=== PATIENT | female | born 1945 | race Caucasian/White ===

== ENCOUNTER 2018-08-12 01:38 | Emergency (ER) | payer MEDICARE, SELFPAY ==
[2018-08-11 15:46] VITALS: BMI 40.5
[2018-08-12 01:39] VITALS: BP 116/82; PULSE 76; RESP 15; TEMP 36.8; O2SAT 97; BMI 41.1
--- NOTE | 2018-08-12 02:07 | CT_ITS ---
STUDY: CT ABDOMEN AND PELVIS WITHOUT CONTRAST REASON FOR EXAM: Female, 73 years old. Abdominal pain for 7 months with nausea and vomiting. RADIATION DOSAGE (If Supplied By Facility): CTDIvol = ( 22.68 ) mGy, DLP = ( 1099.35 ) mGycm TECHNIQUE: Transaxial images were obtained from the dome of the diaphragm to the symphysis pubis without oral contrast, and without intravenous contrast. Sagittal and coronal images were reconstructed. Individualized dose optimization techniques were used for this CT. COMPARISON: Prior comparison studies are not available for review at this time. FINDINGS: There is patchy groundglass attenuation at both lung bases possibly representing atelectasis. No pleural effusions are visualized. The visualized portions of the heart are within normal limits. Normal liver. There is non-visualization of the gallbladder, which may be secondary to either contraction or a prior cholecystectomy. Normal spleen. Normal pancreas. Normal bilateral adrenal glands. There is a small cyst arising from the midpole the right kidney measuring approximately 1.6 cm in greatest dimension. There is no evidence for hydronephrosis, hydroureter or radiopaque ureteral calculi. There is a small cyst arising from the posterior cortex of the left kidney. There is a small hiatal hernia. There is no evidence for dilated bowel, ascites or pneumoperitoneum. The small bowel has a grossly normal appearance. Stool visible throughout the colon with scattered colonic diverticula. There is non-visualization of the appendix. There is diffuse atherosclerotic calcification of the abdominal aorta with elongation and tortuosity, but without a demonstrated aneurysm. Normal inferior vena cava. Normal retroperitoneum. The urinary bladder is not distended. There is absence of the uterus consistent with a prior hysterectomy. There is a small umbilical hernia containing fat. There is mild curvature of the thoracic and lumbar spine convexity towards the left. 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 CT/Abdomen/Pelvis without Cont IMPRESSION: 1. No CT evidence of acute intra-abdominal disease. 2. Bilateral renal cysts. 3. Small hiatal hernia. 4. Mild colonic diverticulosis. Electronically Signed: Luana Maier MD at 3:09 EST , Service support ,
--- NOTE | 2018-08-12 02:08 | EKG12_ITS ---
Test Reason : ABDOMINAL PAIN Blood Pressure : / mmHG Vent. Rate : 072 BPM Atrial Rate : 072 BPM P-R Int : 156 ms QRS Dur : 090 ms QT Int : 430 ms P-R-T Axes : 009 024 023 degrees QTc Int : 470 ms Normal sinus rhythm Normal ECG Confirmed by ARPITA BAH MD ([id number]), supervising film or videotape editor OLIVER LOMAX ([id number]) on 08/14/2018 9:04:39 AM Referred By: MARIA C Confirmed By:ARPITA BAH MD
[2018-08-12 02:15] LABS: Absolute Lymphocyte Count 2.38 X10^3/ul (0.83-4.51); Absolute Neutrophil Count 6.2 X10^3/uL (2.0-7.7); Basophil# 0.02 X10^3/uL; Basophil% 0.2 % (0-1); Hematocrit 41.1 % (37-47); Hemoglobin 13.2 g/dl (12.0-15.0); Lymphocyte # 2.38 X10^3/ul (4.0); Lymphocyte % 23.6 % (19-41); Mean Corp Hgb Conc 32.1 g/gl (32-36); Mean Corpuscular Hgb 30.3 pg (27.0-32.0); Mean Corpuscular Volume 94.3 fL (81-99); Mean Platelet Vol. 9.4 fl (6.2-12.0); Monocyte# 1.16 X10^3/uL; Monocyte% 11.5 % (0-10); Neutrophil % 61.4 % (47-70); Platelet Count 268 K/mm3 (150-450); RBC Distribution Width CV 13.8 % (11.6-14.6); RBC Distribution Width SD 45.8 fl (35.1-43.9); Red Blood Count 4.36 M/mm3 (4.2-5.4); White Blood Count 10.1 K/mm3 (4.4-11.0)
[2018-08-12 02:16] LABS: POSITIVE COUNT NO; POSITIVE DIFFERENTIAL NO; POSITIVE MORPHOLOGY NO
[2018-08-12 02:19] LABS: Prothrombin Time (Protime)PT. 12.8 SECONDS (11.7-14.9)
[2018-08-12] MEDS: Ondansetron 4 MG/2 ML Vial IV (02:19)
[2018-08-12] MEDS: 0.9% Normal Saline 1,000 ML 1000 ML IV (02:19)
[2018-08-12 02:23] LABS: Bacteria 0 SEEN /hpf (None Seen); Mucous, Urine 0 SEEN /hpf (<or=2+)
[2018-08-12 02:25] LABS: Color, Urine Yellow (Yellow); Glucose, Dipstick Normal (Normal); Ketone-Dipstick Negative (Negative); Leukocyte Esterase-Dipstick 25 /ul (Negative); Nitrite-Dipstick Negative (Negative); Occult Blood-Urine 50 /ul (Negative); Protein-Dipstick Negative (Negative); Specific Gravity, Urine 1.015 (1.002-1.030); Urine Bilirubin Dipstick Negative (Negative); Urine Clarity Clear (Clear); Urine Urobilinogen Normal (Normal)
[2018-08-12 02:28] LABS: ALB/GLOB Ratio 1.1 RATIO (0.9-2.4); AST(SGOT) 38 U/L (15-37); Alanine Aminotransfer ALT/SGPT 40 U/L (13-56); Albumin, Serum 3.8 g/dL (3.2-5.0); Alkaline Phosphatase 86 U/L (45-117); Anion Gap 10 (5-15); BUN 13 mg/dL (7-18); BUN/Creat Ratio 16.8 RATIO (10-20); Calcium,Total 9.1 mg/dL (8.5-10.1); Chloride 102 mmol/L (98-107); Creatinine, Serum 0.78 mg/dL (0.55-1.02); EST Glomerular Filtration Rate 77 mL/min (>60); Est Glom Filt Rate - Afr Amer 94 mL/min (>60); Estimated Creatinine Clearance 39.63 ml/min; Globulin 3.6 g/dL (2.2-4.2); Glucose 98 mg/dL (74-106); Lipase 116 U/L (73-393); Potassium 3.1 mmol/L (3.5-5.1); Protein, Total 7.4 g/dL (6.4-8.2); Sodium Level 141 mmol/L (136-145)
[2018-08-12 02:31] LABS: Red Blood Cells-Urine 5-10 SEEN /hpf (0-5); Squamous Epithelial Cells - UA 25-50 SEEN /hpf (5-10); White Blood Cells 0-5 SEEN /hpf (0-5)
--- NOTE | 2018-08-12 03:03 | ED.RN ---
NO OLD EKGS
[2018-08-12 03:39] VITALS: RESP 16
--- NOTE | 2018-08-12 03:44 | ED.VISSUMM ---
- ER Visit Summary Date of Service: 08/12/18 Chief Complaint: Abdominal pain History of Present Illness: The patient is a 73 F who presents with abdominal pain. She has been having chronic left-sided abdominal pain for the last 8 months. However the last 2 days it has moved over the right side. She describes it as stabbing. It was severe earlier but is only mild currently. She reports nausea tonight. She states over the past 8 months she has been having chronic diarrhea which is black. Her sister is concerned for possible GI bleed. Patient also complains of some shortness of breath on exertion. Physical Examination: Afebrile vitals are normal Moist mucous membranes Heart regular rate and rhythm Lungs are clear Abdomen soft nondistended she has diffusely tender which is nonfocal no guarding no rebound rectal exam shows light brown stool Test Results: EKG shows normal sinus rhythm at a rate of 72. Labs notable for potassium 3.1 normal liver function lipase and INR. Troponin negative. Urinalysis contaminated, not consistent with infection. Fecal occult blood is negative. CT of the abdomen and pelvis shows no acute disease. Emergency Department Course and Treatment: Patient was treated with IV fluids and Zofran. At this point she presents with chronic abdominal pain and does not have evidence of acute surgical process. I do not see a benefit hospitalization at this time. She was advised to follow-up for upper and lower endoscopies which she has been referred for. She understands to return for new or worsening symptoms and was instructed on specific signs and symptoms to monitor for. Patient discharged Treatment Plan: [] Disposition: Discharge Impression: Abdominal pain Diarrhea Hypokalemia This note was generated with [employer] dictation software. It may contain incorrect words, spelling, and punctuation that were not noted in review of the chart prior to signing ED Disposition - Plan for ED Patient: Chief Complaint: Abd Pain Referrals: Yashira Hughes MD [Primary Care Provider] -
--- NOTE | 2018-08-12 03:47 | ED.DCSUM_ITS ---
- ER Visit Summary Date of Service: 08/12/18 Chief Complaint: Abdominal pain History of Present Illness: The patient is a 73 F who presents with abdominal pain. She has been having chronic left-sided abdominal pain for the last 8 months. However the last 2 days it has moved over the right side. She descr ibes it as stabbing. It was severe earlier but is only mild currently. She reports nausea tonight. She states over the past 8 months she has been having chronic diarrhea which is black. Her sister is concerned for possible GI bleed. Patient also complains of some shortness of breath on exertion. Physical Examination: Afebrile vitals are normal Moist mucous membranes Heart regular rate and rhythm Lungs are clear Abdomen soft nondistended she has diffusely tender which is nonfocal no guarding no rebound rectal exam shows light brown stool Test Results: EKG shows normal sinus rhythm at a rate of 72. Labs notable for potassium 3.1 normal liver function lipase and INR. Troponin negative. Urinalysis contaminated, not consistent with infection. Fecal occult blood is negative. CT of the abdomen and pelvis shows no acute disease. Emergency Department Course and Treatment: Patient was treated with IV fluids and Zofran. At this point she presents with chronic abdominal pain and does not have evidence of acute surgical process. I do not see a benefit hospitalization at this time. She was advised to follow-up for upper and lower endoscopies which she has been referred for. She understands to return for new or worsening symptoms and was instructed on specific signs and symptoms to monitor for. Patient discharged Treatment Plan: [] Disposition: Discharge Impression: Abdominal pain Diarrhea Hypokalemia This note was generated with [employer] dictation software. It may contain incorrect words, spelling, and punctuation that were not noted in review of the chart prior to signing ED Disposition - Plan for ED Patient: Chief Complaint: Abd Pain Referrals: Yashira Hughes MD [Primary Care Provider] -
--- NOTE | 2018-08-12 03:47 | ED.DEP ---
ED Disposition - Plan for ED Patient: Chief Complaint: Abd Pain Instructions: ED Abdominal Pain Unkn Cause Referrals: Yashira Hughes MD [Primary Care Provider] -
[2018-08-12 03:59] VITALS: BP 140/74; PULSE 73; RESP 18; O2SAT 94
[2018-08-12 04:09] LABS: T4 Free Direct 1.17 ng/dL (0.76-1.46); T4 Total, Thyroxin 7.1 ug/dL (4.8-13.9); Thyroid Stim Hormone (TSH) 1.99 uIU/mL (0.358-3.74)
[2018-08-14 11:13] LABS: Vitamin B12 301 pg/mL (211-911)
--- OUTSIDE RECORDS SUMMARY | 2018-10-16 09:05 | XMS RPT_ITS ---
:1945 Author Organization [facility] Care Team Providers Name Role Phone Oleghe, Efewongbe Attending Unavailable Oleghe, Efewongbe Referring Unavailable Peterson Talbot Attending Unavailable Oleghe, Efewongbe Primary Care Unavailable Damon Clark Attending Unavailable Oleghe, Efewongbe Referring Unavailable Joshua Mays HAT LINING BLOCKER-C Attending Unavailable Oleghe, Efewongbe Referring Unavailable PROBLEMS PROBLEMS DATE TYPE CONDITION / CODE ATTENDING STATUS SOURCE 08/11/2018 Unknown R19.5 - Other fecal Oleghe, Active [place] abnormalities / [facility] [facility] R19.5(ICD-10) Hospital Repository 08/11/2018 Unknown R41.0 - Oleghe, Active [place] Disorientation, [place] [facility] unspecified / Hospital R41.0(ICD-10) Repository 08/11/2018 Unknown D49.9 - Neoplasm of Oleghe, Active [place] unspecified [place] [facility] behavior of Hospital unspecified site / Repository D49.9(ICD-10) 08/11/2018 Unknown M54.9 - Dorsalgia, Oleghe, Active [place] unspecified / [place] [facility] M54.9(ICD-10) Hospital Repository 08/11/2018 Unknown G89.29 - Other Oleghe, Active [place] chronic pain / [place] [facility] G89.29(ICD-10) Hospital Repository PROCEDURES PROCEDURES No Procedure Records FoundRESULTS RESULTS SURGERY VISIT REPORT Observed: 08/15/2018 Status: F Source: [place] 6:00 PM [facility] REPOSITORY [facility] 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 Is patient in pain?: No Allergies adhesive tape Allergy (Severe, Verified 08/15/18 14:03) Area Sore cefpodoxime [From Vantin] Allergy (Unknown, Verified 08/15/18 14:03) Unknown codeine Allergy (Unknown, Verified 08/15/18 14:03) Unknown metronidazole [From Flagyl] Allergy (Unknown, Verified 08/15/18 14:03) Unknown sulfamethoxazole [From Bactrim] Allergy (Unknown, Verified 08/15/18 14:03) Unknown trimethoprim [From Bactrim] Allergy (Unknown, Verified 08/15/18 14:03) Unknown Medications cholecalciferol (vitamin D3) 2,000 unit capsule 2,000 unit PO DAILY 08/11/18 [History Confirmed 08/15/18] doxycycline hyclate 100 mg tablet 100 mg PO BID #14 tab 08/11/18 [Rx Confirmed 08/15/18] gabapentin 300 mg capsule 300 mg PO TID #90 cap 08/11/18 [Rx Confirmed 08/15/18] hydrochlorothiazide 25 mg tablet 25 mg PO DAILY #90 tab 08/11/18 [Rx Confirmed 08/15/18] iron,carbonyl 65 mg-vitamin C 125 mg tablet,delayed release 1 tab PO DAILY 08/11/18 [History Confirmed 08/15/18] metoprolol succinate ER 50 mg capsule sprinkle, ext. release 24 hr 50 mg PO BID 08/11/18 [History Confirmed 08/15/18] mirabegron ER 25 mg tablet,extended release 24 hr 25 mg PO BID 08/11/18 [History Confirmed 08/15/18] rosuvastatin 10 mg tablet 10 mg PO DAILY 08/11/18 [History Confirmed 08/15/18] sertraline 100 mg tablet 150 mg PO DAILY #120 tab 08/11/18 [Rx Confirmed 08/15/18] tramadol 50 mg tablet 50 mg PO TID tab 08/11/18 [History Confirmed 08/15/18] Trazodone HCl 50 - 100 mg PO QHS 08/12/18 [History Confirmed 08/15/18] PFSH Medical History Localized swelling of chest wall (Acute) Confusion (Chronic) Dark stools (Acute) Left-sided chest wall pain (Chronic) Vitamin D deficiency (Chronic) Vision problems (Chronic) Pneumonia (Chronic) Osteoarthritis (Chronic) Neuropathy (Chronic) IBS (irritable bowel syndrome) (Acute) High cholesterol (Chronic) Hypertension (Chronic) Chronic headaches (Chronic) GERD (gastroesophageal reflux disease) (Chronic) H/O emotional problems (Chronic) Chronic bronchitis (Chronic) Back problem (Chronic) Anemia (Chronic) Abdominal pain (Acute) Surgical History History of (Acute) Hx of breast reduction, elective (Acute) History of back surgery (Acute) History of hernia repair (Acute) History of right knee joint replacement (Acute) History of cholecystectomy (Acute) History of gastric surgery (Acute) History of hysterectomy (Acute) Family History Sister Anesthesia complication Breast cancer Hypertension Mother Arthritis Pancreatic cancer Depression Father Colon cancer Hypertension CVA (cerebral vascular accident) Sister Cancer rectal/kidney/medullary Thyroid cancer Social History Smoking Status: Former smoker alcohol intake: never substance use type: does not use what type of physical activity do you participate in: none HPI HPI HPI: VANESSA HERNANDEZ, is a 73 F who presents to the office today for surgical consultation regarding abdominal pain. The patient was just recently seen at the [facility] emergency department on August 12, 2018. She states that for 8 months she has had left-sided abdominal pain. She states that when she lies on her left side however the pain shifts to the right side of the abdomen. She is not have any weight loss and remains morbidly obese with a BMI of 41.5. She has noted darker colored stools. 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 She is on acetaminophen and tramadol daily. The pain has been escalating. At the [facility] in August 12 she had abdominal pelvic CT scan without contrast. A small hiatal hernia was noted. Small cyst arising from the right kidney noted. Small umbilical hernia with fat noted. Mild colonic diverticulosis. Her white blood cell count was 10.1 with a hemoglobin 13.2 and hematocrit of 41.1 platelet count 268,000. BUN is 13 and creatinine 0.78. Liver function tests were normal. Potassium slightly low at 3.1. She claims that she routinely has sweats this sounds in her description more like hot flashes. She was a remote heavy cigarette smoker but quit 19 years ago. She additionally states that she has had a previous history of peptic ulcer disease with bleeding. She recently within the past 3 days was placed on doxycycline because of an infected sebaceous cyst of the anterior midsternal chest. Her most recent colonoscopy was at least 3 years ago and that she had precancerous polyps at that time. She notes that her father had colon cancer. Patient is referred by her primary care physician to try to assist with evaluation of the patient's complaint of abdominal pain and stool change. A written copy of my surgical consult recommendations will be returned to her ROS General General: Yes weight change and fatigue; no appetite, colon cancer, breast cancer or weakness HEENT HEENT: No difficulty swallowing, eye injury, eye surgery, swollen glands or hoarseness Endo Endocrine: No thyroid disease, diabetes mellitus, thyroid cancer, Hair loss, heat intolerance or cold intolerance Skin Skin: No rash or changing moles Breast Breast: No left breast lump, right breast lump, nipple discharge, breast pain, abnormal mammogram, abnormal US or breast enlargement Musc Musculoskeletal: Yes back problems, arthritis and rheumatoid arthritis; no gout or joint pain Cardio Cardiovascular: Yes high blood pressure; no murmur, pacemaker, heart disease, atrial fibrillation, heart attack, heart stent, palpitations, shortness of breat with exertion or chest pain Psych Psychiatric: Yes depression and anxiety; no hearing voices Resp Respiratory: Yes shortness of breath, No sleep apnea, Yes cough, No COPD, No asthma, No emphysema, No wheezing Gastro Gastrointestinal: Yes abdominal pain, Yes nausea or vomiting, Yes diarrhea, No constipation, Yes blood in stool, No acid reflux, Yes hemorrhoids, Yes ulcers, No gallbladder problem, Yes black,tarry stools [place] Hematologic: No blood thinners, No blood disorders, No bleeding, Yes anemia, No blood clots Neuro Neurologic: No system reviewed and no additional complaints, except as docu, No as per HPI, No abnormal walking, No abnormal hearing, No abnormal movements, No abnormal speech, No behavioral changes, No burning sensations, No confusion, No seizure-like activity, No unsteadiness, No dizziness, No localized weakness, No frequent falls, No headache(s), No lack of coordination, No loss of vision, No memory loss, Yes numbness, No other visual disturbances, No radiating pain, No restless legs, No sensory deficit, No fainting, Yes tingling, No tremor(s), No weakness, No other Exam Const General: cooperative Nutritional Appearance: obese morbidly obese Orientation: alert, awake [facility] Head: normal to inspection Ears: other (Mild hearing loss noted) Eyes General: appearance normal, both eyes and all related structures Chest Breast Palpation: No nipple discharge Other: Increased anterior posterior diameter of the chest Resp Other: Diminished respiratory excursion. Clear apices Cardio Rate: regular rate Rhythm: regular rhythm Heart Sounds: no murmurs GI Other: Notably overweight, I cannot detect any internal organs, nontender, bowel sounds nonspecific Skin General: no rashes or lesions noted Neuro Cranial Nerves: CN's II-XI intact bilaterally Extrem General: no calf tenderness bilaterally Psych Affect: normal affect Assessment AND Plan Problems 1. Generalized abdominal pain R10.84 Plan 73-year-old female difficult to decipher it due to her abdominal pain as she presented to the emergency room with complaints of left lower quadrant abdominal pain but in my office states that when she lies on her left side she then has pain in the right lateral and right upper quadrant of the abdomen. Stools have been noted to be darker. She has a personal history of colon polyps. She has remote history of peptic ulcer disease. 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 BMI is 41.5 likely adding to potential for nerve compression problems. I am recommending to her combined esophagogastroduodenoscopy with possible biopsy and colonoscopy with possible biopsy or polypectomy is indicated. She is aware of the technique, benefit, risks, alternatives. She has had an opportunity to ask and have questions answered. I very much appreciate the kind opportunity of assisting with her surgical care. We will schedule and proceed at her discretion. She is at increased interventional risk and we will perform this under monitored anesthesia care. CC: Dr.Oleghe Damon Clark M.D., F.A.C.S. Orders Orders: Coding Level of Care Code Detailed, Low Diagnoses Generalized abdominal pain R10.84 Abdominal location: generalized 08/15/18 1800 <Electronically signed by Damon Clark MD> Date Damon Clark MD Cosigner Signature: Date (if applicable) CC: Yashira Hughes MD INTERNAL MEDICINE Observed: 08/15/2018 Status: F Source: [place] OFFICE VISIT 4:22 PM [facility] [address] [place] [address] [address] [place] [address] OFFICE VISIT Date of Service: 08/11/18 MR#: [id number] Acct: [id number] Name: RAISAVANESSA Rep #: [id number] : 1945 Provider: Yashira Hughes MD Age/Sex: 73/F Location: [facility] Status: Signed Intake Vital Signs08/11/18 Height 5 ft 2.5 in 08/11/18 Weight: 225 lb 08/11/18 Body Mass Index (BMI) 40.5 08/11/18 Blood Pressure 156/89 H Intake Visit Reasons: STOMACH ISSUES Chief Complaint: Stomach Issues x 8 months Is patient in pain?: Yes (abdominal pain) Pain scale (1-10): 9 Allergies adhesive tape Allergy (Severe, Verified 08/15/18 14:03) Area Sore cefpodoxime [From Vantin] Allergy (Unknown, Verified 08/15/18 14:03) Unknown codeine Allergy (Unknown, Verified 08/15/18 14:03) Unknown metronidazole [From Flagyl] Allergy (Unknown, Verified 08/15/18 14:03) Unknown sulfamethoxazole [From Bactrim] Allergy (Unknown, Verified 08/15/18 14:03) Unknown trimethoprim [From Bactrim] Allergy (Unknown, Verified 08/15/18 14:03) Unknown Medications cholecalciferol (vitamin D3) 2,000 unit capsule 2,000 unit PO DAILY 08/11/18 [History Confirmed 08/15/18] doxycycline hyclate 100 mg tablet 100 mg PO BID #14 tab 08/11/18 [Rx Confirmed 08/15/18] gabapentin 300 mg capsule 300 mg PO TID #90 cap 08/11/18 [Rx Confirmed 08/15/18] hydrochlorothiazide 25 mg tablet 25 mg PO DAILY #90 tab 08/11/18 [Rx Confirmed 08/15/18] iron,carbonyl 65 mg-vitamin C 125 mg tablet,delayed release 1 tab PO DAILY 08/11/18 [History Confirmed 08/15/18] metoprolol succinate ER 50 mg capsule sprinkle, ext. release 24 hr 50 mg PO BID 08/11/18 [History Confirmed 08/15/18] mirabegron ER 25 mg tablet,extended release 24 hr 25 mg PO BID 08/11/18 [History Confirmed 08/15/18] rosuvastatin 10 mg tablet 10 mg PO DAILY 08/11/18 [History Confirmed 08/15/18] sertraline 100 mg tablet 150 mg PO DAILY #120 tab 08/11/18 [Rx Confirmed 08/15/18] tramadol 50 mg tablet 50 mg PO TID tab 08/11/18 [History Confirmed 08/15/18] Trazodone HCl 50 - 100 mg PO QHS 08/12/18 [History Confirmed 08/15/18] PFSH Medical History Localized swelling of chest wall (Acute) Confusion (Chronic) Dark stools (Acute) Left-sided chest wall pain (Chronic) Vitamin D deficiency (Chronic) Vision problems (Chronic) Pneumonia (Chronic) Osteoarthritis (Chronic) Neuropathy (Chronic) IBS (irritable bowel syndrome) (Acute) High cholesterol (Chronic) Hypertension (Chronic) Chronic headaches (Chronic) GERD (gastroesophageal reflux disease) (Chronic) H/O emotional problems (Chronic) Chronic bronchitis (Chronic) Back problem (Chronic) Anemia (Chronic) Abdominal pain (Acute) Surgical History History of (Acute) Hx of breast reduction, elective (Acute) History of back surgery (Acute) History of hernia repair (Acute) History of right knee joint replacement (Acute) History of cholecystectomy (Acute) History of gastric surgery (Acute) History of hysterectomy (Acute) Family History Sister Anesthesia complication Breast cancer Mother Arthritis Pancreatic cancer Depression Father Colon cancer Hypertension CVA (cerebral vascular accident) Social History Smoking Status: Former smoker alcohol intake: never substance use type: does not use what type of physical activity do you participate in: none HPI HPI Chief Complaint: Stomach Issues x 8 months Details: VANESSA HERNANDEZ, is a 73yo F who presents to the office today to establish care. She is here with her sister. She just moved here from [facility] to be with her sister whom she is here with today. They have several concerns. Chief of which is a persistent abdominal pain which is said to have been ongoing for about 8 months. Initially predominantly on her left side, she describes occasional episodes of radiation to the right. Pain is described as sharp and worse when she lays on that side. She denies any history of falls or known precipitating or relieving factors. She also reports recent episodes of dark colored/greenish stool. She denies pain on defecation however admits to a a change in bowel habit. Last colonoscopy was said to be 3 years ago and a 3 year follow up was recommended due to 3 Precancerous Polyps per patient. On her chest, she notes a swelling which has been present for days with a tender center. No significant drainage. Recent mammogram was said to be within normal. Her sister is concerned about confusion and memory lapses. No known history of Dementia however she has apparently being having issues remembering recent events. 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 ROS Const Constitutional: Positive for fatigue and night sweats; no chills, fever(s), frequent falls, weakness or change in appetite Eyes Eyes: No blurry vision, change in vision, double vision, discharge or visual disturbances ENT ENT: No abnormal hearing, ear pain, ear pressure, tinnitus or dizziness/vertigo Resp Respiratory: No cough, shortness of breath or wheezing Cardio Cardiology: Positive for dyspnea on exertion and palpitations; no chest pain at rest, chest pain with exertion, shortness of breath, generalized swelling, irregular heart rhythm, lightheadedness, orthopnea or fast heart rate Gastro GI: Positive for abdominal pain (LLQ at night moves to other side.), change in bowel habits, constipation, diarrhea, other (Green AND black), change in stool character and bloating; no nausea/dyspepsia or vomiting Genitourinary-Female: Positive for other (Abnormal test on Kidney); no difficulty urinating, burning urination, painful urination, urinary incontinence, urinary frequency, urinary urgency, urinary hesitancy, urinary retention, Frequent nighttime urination/ nocturia, sexual problems, genital lesions, abnormal vaginal bleeding, pelvic pain, vaginal dryness, vaginal odor or Vaginal Itching Musc Musculoskeletal: Positive for numbness (Both legs) and tingling (Both legs); no joint pain, back pain, joint swelling or limited range of motion Skin Skin: Positive for boil (Chest); no change in skin color, rash or wounds Breast Breast: No breast lump or breast pain Neuro Neurology: Positive for numbness (Both legs), tingling (Both legs) and memory loss; no frequent falls, weakness, visual disturbances, abnormal hearing, unsteady gait/balance, dizziness or loss of vision Psych Psychiatric: No change in appetite, Positive for memory loss, No Thoughts of harming yourself/Others Endo Endocrine: Positive for fatigue; no increased thirst/drinking, increased hunger or increased urination Aller/Imm Allergy/Immunologic: No wheezing or seasonal allergy symptoms [place]/Lymp Hematologic/Lymphatic: No easy bleeding, easy bruising or enlarged lymph nodes Exam Const General: cooperative, comfortable Orientation: alert, awake, oriented x3 [facility] Head: normocephalic, no palpable skull fracture Ears: hearing grossly normal bilaterally Chest Chest palpation AND inspection: localized rib tenderness with anteroposterior compression (Left lower rib.) Resp Effort AND Inspection: normal respiratory effort, able to speak in complete sentences Auscultation: Bilateral: Clear to Auscultation Cardio Rate: regular rate Rhythm: regular rhythm Heart Sounds: S1 normal, S2 normal GI Palpation: soft (Moderate epigastric tenderness.), no hepatosplenomegaly Neuro General: alert, awake, oriented x3, moves all extremities, CN's II-XI intact bilaterally Psych Mental Status: mental status grossly normal Mood: congruent mood Affect: normal affect Speech and Movement: speech and movement normal Assessment AND Plan 1. Abdominal pain R10.9 Plan She reports a chroncic abdominal pain and per patient, imaging done in [place] was suggested of a ? renal mass. She is not sure of what side. Her family is concerned due to her history of precancerous polyp and her family history of cancer. Also recent history of dark stools. Significant epigastric tenderness on examination. Labs. ordered. Refer to Gen surgery. 2. Left-sided chest wall pain R07.89 Plan Noted on examination for left sided abodminal pain. Reproducible tenderness over the inferior rib. Patient denies any history of falls or trauma. Rib xary ordered. Follow up with result. 3. Dark stools R19.5 Plan As above patient reports dark stools and some change in her bowel movement. Epigastric tenderness as above. Hx of precancerous colonic polyps. Stool occult ordered. Refer to gen surgery. Orders Orders: Referrals: 4. Confusion R41.0 Plan Intermittent episodes of confusion over the last couple of months. Possibly early MCI Vs Dementia. Labs ordered to r/o metabolic processes. Orders Orders: 5. Localized swelling of chest wall R22.2 Plan Possibly Furunculosis. Started on Doxycycline. Will follow. Plan Detail Other Orders Orders: Referrals: Other Medications New: Discontinued: trazodone Discontinued Reason: Order edited -50 mg PO DAILY 90 tabs 2RF Aranza Rutledge Discontinuing original order Coding Level of Care Code Off vis,new,level 4 Diagnoses Abdominal pain R10.9 Left-sided chest wall pain R07.89 Dark stools R19.5 Confusion R41.0 Localized swelling of chest wall R22.2 08/15/18 1557 <Electronically signed by Yashira Hughes MD> Date Yashira Hughes MD Cosigner Signature: Date (if applicable) CC: 12 LEAD ELECTROCARDIOGRAM Observed: 08/14/2018 Status: F Source: [place] 9:05 AM [facility] REPOSITORY [facility] Cardiovascular Services [address] [place] [id number] 12 Lead EKG 08/12/18 0221 MR#: [id number] Acct: [id number] Name: HERNANDEZVANESSA Rep #: [id number] : 1945 73 From: Jonathan Eng MD Attending Dr: Status: DEP ER Ordering Dr: Peterson Talbot MD Date: 08/12/18 Location: ED Sex: F C Admitted: Test Reason : ABDOMINAL PAIN Blood Pressure : / mmHG Vent. Rate : 072 BPM Atrial Rate : 072 BPM P-R Int : 156 ms QRS Dur : 090 ms QT Int : 430 ms P-R-T Axes : 009 024 023 degrees QTc Int : 470 ms Normal sinus rhythm Normal ECG Confirmed by OLVIN MARTINEZ, JONATHAN ([id number]), news assignment editor OLIVER LOMAX ([id number]) on 08/14/2018 9:04:39 AM Referred By: MARIA C Confirmed By:JONATHAN ENG MD 08/14/18 0904 Date Jonathan Eng MD CC: Yashira Hughes MD; Peterson Talbot MD Signed EMERGENCY DEPARTMENT Observed: 08/12/2018 Status: F Source: [place] SUMMARY 3:47 AM [facility] REPOSITORY [facility] Medical Records Department [address] [place] [address] Emergency Department Summary 08/12/18 0344 MR#: [id number] Acct: [id number] Name: VANESSA HERNANDEZ Rep #: [id number] : 1945 73 From: Peterson Talbot MD PCP: Yashira Hughes MD Status: REG ER - ER Visit Summary Date of Service: 08/12/18 Chief Complaint: Abdominal pain History of Present Illness: The patient is a 73 F who presents with abdominal pain. She has been having chronic left-sided abdominal pain for the last 8 months. However the last 2 days it has moved over the right side. She describes it as stabbing. It was severe earlier but is only mild currently. She reports nausea tonight. She states over the past 8 months she has been having chronic diarrhea which is black. Her sister is concerned for possible GI bleed. Patient also complains of some shortness of breath on exertion. Physical Examination: Afebrile vitals are normal Moist mucous membranes Heart regular rate and rhythm Lungs are clear Abdomen soft nondistended she has diffusely tender which is nonfocal no guarding no rebound rectal exam shows light brown stool Test Results: EKG shows normal sinus rhythm at a rate of 72. Labs notable for potassium 3.1 normal liver function lipase and INR. Troponin negative. Urinalysis contaminated, not consistent with infection. Fecal occult blood is negative. CT of the abdomen and pelvis shows no acute disease. Emergency Department Course and Treatment: Patient was treated with IV fluids and Zofran. At this point she presents with chronic abdominal pain and does not have evidence of acute surgical process. I do not see a benefit hospitalization at this time. She was advised to follow-up for upper and lower endoscopies which she has been referred for. She understands to return for new or worsening symptoms and was instructed on specific signs and symptoms to monitor for. Patient discharged Treatment Plan: [] Disposition: Discharge Impression: Abdominal pain Diarrhea Hypokalemia This note was generated with PurpleTe[employer] dictation software. It may contain incorrect words, spelling, and punctuation that were not noted in review of the chart prior to signing ED Disposition - Plan for ED Patient: Chief Complaint: Abd Pain Referrals: Yashira Hughes MD [Primary Care Provider] - What to do if you have Problems For any increased pain, shortness of breath, bleeding, nausea or vomiting, chest pain, or any unexpected problems, contact your Primary Care Provider. Call [facility] ([phone]) or report to the closest Emergency Room. Call 911 if necessary. 08/12/18 0347 <Electronically signed by Peterson Talbot MD> Date Peterson Talbot MD Cosigner Signature (If Indicated): Date CC: Yashira Hughes MD DISCHARGE INSTRUCTION Observed: 08/12/2018 Status: F Source: [place] 3:47 AM [facility] REPOSITORY [facility] Medical Records Department [address] [place] [address] Discharge Instruction 08/12/18346 MR#: [id number] Acct: [id number] Name: VANESSA HERNANDEZ Rep #: [id number] : 1945 73 From: Peterson Talbot MD PCP: Yashira Hughes MD Status: REG ER ED Disposition - Plan for ED Patient: Chief Complaint: Abd Pain Instructions: ED Abdominal Pain Unkn Cause Referrals: Yashira Hughes MD [Primary Care Provider] - What to do if you have Problems For any increased pain, shortness of breath, bleeding, nausea or vomiting, chest pain, or any unexpected problems, contact your Primary Care Provider. Call [facility] ([phone]) or report to the closest Emergency Room. Call 911 if necessary. 08/12/18346 <Electronically signed by Peterson Talbot MD> Date Peterson Talbot MD Cosigner Signature (If Indicated): Date CC: Yashira Hughes MD Observed: 08/12/2018 Status: F Source: [place] STOOL OCCULT BLOOD 2:15 AM [facility] IFOB REPOSITORY STOB iFOB Occult Blood Negative Performed By: #### M100.7900 #### [facility] [place], [address] URINALYSIS, COMPLETE Collected: 08/12/2018 Status: F Source: [place] 2:14 AM [facility] REPOSITORY Order Comment: How was Urine Obtained? CLEAN CATCH TYPE CODE TESTS RESULT OUT OF RANGE REFERENCE UNITS LAB L400.3000 Yellow COLOR Normal Yellow LAB L400.3050 Clear Normal CLARITY Clear LAB L400.3200 Normal mg/dl Normal GLUCOSE, UR Normal LAB L400.3300 Negative mg/dL Normal BILIRUBIN URINE Negative LAB L400.3400 Negative mg/dl Normal KETONE UR Negative LAB L400.3465 1.002-1.030 Normal SP.GR. DIPSTX 1.015 LAB L400.3550 5.0 - 8.0 pH UR Normal 7.0 LAB L400.3600 Negative mg/dl PROT Normal DIPSTX Negative LAB L400.3700 Normal mg/dl Normal UROBILI Normal LAB L400.3750 Negative Normal NITRITE UR Negative LAB L400.3780 Negative /ul High 50 OCCULT BLOOD-UR LAB L400.3800 Negative /ul High LEUK 25 ESTERASE LAB L400.4050 0-5 /hpf WBC Normal 0-5 SEEN LAB L400.4100 0-5 /hpf Normal RBC-UA 5-10 SEEN LAB L400.4150 5-10 /hpf SQUAM Normal EPI 25-50 SEEN LAB L400.4300 None Seen /hpf 0 Normal BACTERIA SEEN LAB L400.4350 <or=2+ /hpf 0 Normal MUCUS, URINE SEEN Performed By: #### L400.0001 #### [facility] [address] [facility] [place], [address] ABDOMEN/PELVIS WITHOUT Observed: 08/12/2018 Status: F Source: [place] CONT 2:09 AM [facility] REPOSITORY [facility] Imaging Services [address] [place] [address] Abdomen/Pelvis without Cont MR#: [id number] Acct: [id number] Name: VANESSA HERNANDEZ Rep #: [id number] : 1945 F 73 From: Luana Maier MD PCP: Yashira Hughes MD Status: REG ER Study: Abdomen/Pelvis without Cont Date of Exam: 08/12/18 Exam# [id number] Ordering Dr: Peterson Talbot MD STUDY: CT ABDOMEN AND PELVIS WITHOUT CONTRAST REASON FOR EXAM: Female, 73 years old. Abdominal pain for 7 months with nausea and vomiting. RADIATION DOSAGE (If Supplied By Facility): CTDIvol = ( 22.68 ) mGy, DLP = ( 1099.35 ) mGycm TECHNIQUE: Transaxial images were obtained from the dome of the diaphragm to the symphysis pubis without oral contrast, and without intravenous contrast. Sagittal and coronal images were reconstructed. Individualized dose optimization techniques were used for this CT. COMPARISON: Prior comparison studies are not available for review at this time. FINDINGS: There is patchy groundglass attenuation at both lung bases possibly representing atelectasis. No pleural effusions are visualized. The visualized portions of the heart are within normal limits. Normal liver. There is non-visualization of the gallbladder, which may be secondary to either contraction or a prior cholecystectomy. Normal spleen. Normal pancreas. Normal bilateral adrenal glands. There is a small cyst arising from the midpole the right kidney measuring approximately 1.6 cm in greatest dimension. There is no evidence for hydronephrosis, hydroureter or radiopaque ureteral calculi. There is a small cyst arising from the posterior cortex of the left kidney. There is a small hiatal hernia. There is no evidence for dilated bowel, ascites or pneumoperitoneum. The small bowel has a grossly normal appearance. Stool visible throughout the colon with scattered colonic diverticula. There is non-visualization of the appendix. There is diffuse atherosclerotic calcification of the abdominal aorta with elongation and tortuosity, but without a demonstrated aneurysm. Normal inferior vena cava. Normal retroperitoneum. The urinary bladder is not distended. There is absence of the uterus consistent with a prior hysterectomy. There is a small umbilical hernia containing fat. There is mild curvature of the thoracic and lumbar spine convexity towards the left. 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 CT/Abdomen/Pelvis without Cont IMPRESSION: 1. No CT evidence of acute intra-abdominal disease. 2. Bilateral renal cysts. 3. Small hiatal hernia. 4. Mild colonic diverticulosis. Electronically Signed: Luana Maier MD at 3:09 EST , Service support , CC: Yashira Hughes MD; Peterson Talbot MD Computer Animator: Signed CBC W/DIFF, AUTOMATED Collected: 08/12/2018 Status: F Source: [place] 1:45 AM [facility] REPOSITORY TYPE CODE TESTS RESULT OUT OF RANGE REFERENCE UNITS LAB L100.1000 4.4-11.0 K/mm3 Normal WBC 10.1 LAB L100.1200 4.2-5.4 M/mm3 Normal RBC 4.36 LAB L100.1300 12.0-15.0 g/dl Normal HGB 13.2 LAB L100.1400 37-47 % Normal HCT 41.1 LAB L100.1500 81-99 fL Normal MCV 94.3 LAB L100.1600 27.0-32.0 pg Normal MCH 30.3 LAB L100.1700 32-36 g/gl Normal MCHC 32.1 LAB L100.1810 11.6-14.6 % Normal RDW CV 13.8 LAB L100.1820 35.1-43.9 fl High RDW SD 45.8 LAB L100.1900 150-450 K/mm3 Normal PLT 268 LAB L100.2000 6.2-12.0 fl Normal MPV 9.4 LAB L100.2100 47-70 % Normal NEUT% 61.4 LAB L100.2200 19-41 % Normal LY% 23.6 LAB L100.2300 0-10 % High MONO% 11.5 LAB L100.2400 0-5 % Normal EO% 3.0 LAB L100.2500 0-1 % Normal BASO% 0.2 LAB L100.2550 0.0-0.9 % Normal IM GRAN % 0.300 Result Comment: IG% - Immature Granulocytes (promyelocytes, myelocytes and metamyelocytes) > 1% indicates that a LEFT SHIFT is Present. LAB L100.2620 2.0-7.7 X10 3/uL Normal Absolute Neut 6.2 LAB L100.2720 0.83-4.51 X10 3/ul Normal Absolute Lymph 2.38 Performed By: #### L100.0100 #### [facility] [address] [place], [place], [address] PROTHROMBIN TIME W/INR Collected: 08/12/2018 Status: F Source: [place] 1:45 AM [facility] REPOSITORY TYPE CODE TESTS RESULT OUT OF RANGE REFERENCE UNITS LAB L300.4150 11.7-14.9 SECONDS Normal PROTIME 12.8 LAB L300.4200 Normal INR 1.0 Performed By: #### L300.3900 #### [facility] [address] [place], [place], [address] COMPREHENSIVE METABOLIC Collected: 08/12/2018 Status: F Source: [place] [facility] 1:45 AM [facility] REPOSITORY TYPE CODE TESTS RESULT OUT OF RANGE REFERENCE UNITS LAB L501.0100 74-106 mg/dL Normal GLU 98 Result Comment: Please note revised GLUCOSE reference range effective 2017. LAB L501.1000 7-18 mg/dL Normal BUN 13 LAB L501.1100 0.55-1.02 mg/dL Normal CREAT,SERUM 0.78 Result Comment: The validity of the calculated GFR AND GFRAA in patients over 70 years has not been determined. Clinical correlation is essential. LAB L501.1110 >60 mL/min Normal EST GFR 77 Result Comment: Non- GFR Calc LAB L501.1115 >60 mL/min Normal EST GFR - AA 94 Result Comment: GFR Calc LAB L501.1255 ml/min Normal Estimated CRCL 39.63 LAB L501.1300 10-20 RATIO Normal BUN/CRE 16.8 LAB L501.1500 6.4-8. g/dL Normal 2 T PROT 7.4 LAB L501.1800 3.2-5. g/dL Normal 0 ALB 3.8 LAB L501.1950 2.2-4. g/dL Normal 2 GLOB 3.6 LAB L501.2000 0.9-2. RATIO Normal 4 A/G 1.1 LAB L501.2200 8.5-10 mg/dL Normal .1 CA 9.1 LAB L501.4100 15-37 U/L High AST 38 LAB L501.4305 45-117 U/L Normal ALK P 86 LAB L501.4405 13-56 U/L Normal ALT 40 LAB L501.4600 0.20-1 mg/dL Normal .00 T BILI 0.30 LAB L501.5300 136-14 mmol/L Normal 5 NA 141 LAB L501.5600 3.5-5. mmol/L Low 1 K 3.1 LAB L501.5900 98-107 mmol/L Normal CL 102 LAB L501.6100 21.0-3 mmol/L Normal 2.0 CO2 29.0 LAB L501.6200 5-15 Normal GAP 10 Performed By: #### L500.4050, L501.2450, L501.4010 #### [facility] [address] [place], [address] LIPASE Collected: 08/12/2018 Status: F Source: [place] 1:45 AM [facility] REPOSITORY TYPE CODE TESTS RESULT OUT OF RANGE REFERENCE UNITS LAB L501.2450 73-393 U/L Normal LIPASE 116 Performed By: #### L500.4050, L501.2450, L501.4010 #### [facility] [address] [place], [address] TROPONIN-I Collected: 08/12/2018 Status: F Source: [place] 1:45 AM [facility] REPOSITORY TYPE CODE TESTS RESULT OUT OF RANGE REFERENCE UNITS LAB L501.4010 <0.045 ng/mL Normal < 0.015 TROPONIN-I Result Comment: TROPONIN-I EXPECTED VALUES <0.045 Negative 0.045 - 0.590 Consistent with Cardiac Damage > OR = 0.600 Critical Value Not every elevated troponin is indicative of OR. These values should be used with clinical judgement in examining the patient's clinical picture for diagnosis. To establish a diagnosis of OR versus myocardial injury, there must be a demonstrated rise and/or fall in the troponin values, in addition to ischemic symptoms, EKG changes, new regional wall motion abnormality, and/or angiographical evidence. PLEASE NOTE: REFERENCE RANGES EDITED 17 Performed By: #### L500.4050, L501.2450, L501.4010 #### [facility] [address] [place], [address] T4 TOTAL, THYROXIN Collected: 08/12/2018 Status: F Source: [place] 1:45 AM [facility] REPOSITORY TYPE CODE TESTS RESULT OUT OF RANGE REFERENCE UNITS LAB L501.9310 4.8-13.9 ug/dL T4 Normal THYROXIN 7.1 Performed By: #### L501.9310, L501.9520, L506.0400 #### [facility] [address] [place], [address] THYROID STIM HORMONE Collected: 08/12/2018 Status: F Source: [place] (TSH) 1:45 AM [facility] REPOSITORY TYPE CODE TESTS RESULT OUT OF RANGE REFERENCE UNITS LAB L501.9520 0.358-3.74 uIU/mL Normal TSH 1.99 Performed By: #### L501.9310, L501.9520, L506.0400 #### [facility] [address] [place], [address] T4 FREE DIRECT Collected: 08/12/2018 Status: F Source: [place] 1:45 AM [facility] REPOSITORY TYPE CODE TESTS RESULT OUT OF RANGE REFERENCE UNITS LAB L506.0400 0.76-1.46 ng/dL Normal T4 FREE 1.17 DIRECT Performed By: #### L501.9310, L501.9520, L506.0400 #### [facility] [address] [place], [address] VITAMIN B12 Collected: 08/12/2018 Status: F Source: [place] 1:45 AM [facility] REPOSITORY TYPE CODE TESTS RESULT OUT OF RANGE REFERENCE UNITS LAB L503.0105 211-911 pg/mL Normal Vitamin B12 301 Performed By: #### L503.0105 #### [facility] [address] [place], [address] PROGRESS Observed: 06/02/2018 Status: COMPLETED Source: [place] 9:49 AM [facility] REPOSITORY HNO ID: [id number] Author: Marycruz (Diabetologist) PaulaPako Service: (none) Author Type: Nurse Practitioner Type: Progress Notes Filed: 06/02/2018 10:06 AM Note Text: Subjective HPI Vanessa Hernandez is a 73 year old female who presents with left ear pain and sore throat this morning. She feels her hearing is worse. She feels a bit off balance today. Review of Systems Constitutional: Negative. Negative for fever. HENT: Positive for ear pain, hearing loss and sore throat. Negative for congestion. Respiratory: Negative. Negative for cough. Cardiovascular: Negative. Neurological: Positive for dizziness. BP 122/82 Pulse 72 Temp 37.3 ?C (99.2 ?F) (Tympanic) Wt 103 kg (227 lb) No past medical history on file. No past surgical history on file. ALLERGIES Bactrim [Sulfamethoxazole-Trimethoprim]; Codeine; Flagyl [Metronidazole Hcl]; Sulfa (Sulfonamide Antibiotics) MEDICATIONS gabapentin (NEURONTIN) 300 mg capsule Take 300 mg by mouth three times daily. hydroCHLOROthiazide (HYDRODIURIL, ESIDRIX) 25 mg tablet Take 25 mg by mouth once daily. iron,carbonyl-vitamin C (VITRON-C) 65 mg iron- 125 mg TbEC Take 1 tablet by mouth once daily. metoprolol succinate ER (TOPROL XL) 50 mg 24 hr tablet Take 50 mg by mouth twice daily. mirabegron (MYRBETRIQ) 25 mg Tb24 Take 25 mg by mouth twice daily. rosuvastatin (CRESTOR) 10 mg tablet Take 10 mg by mouth daily at bedtime. sertraline (ZOLOFT) 100 mg tablet Take 150 mg by mouth once daily. traZODone (DESYREL) 50 mg tablet Take 50 mg by mouth daily at bedtime. Cholecalciferol, Vitamin D3, 1,000 unit cap Take 1,000 Units by mouth twice daily. MULTIVITAMIN ORAL Take 1 tablet by mouth once daily. Centrum Silver SUMAtriptan (IMITREX) 6 mg/0.5 mL soln by SUBDERMAL route as needed. traMADol (ULTRAM) 50 mg tablet Take 1 tablet by mouth three times daily. No family history on file. Social History Substance Use Topics - Smoking status: Not on file - Smokeless tobacco: Not on file - Alcohol use Not on file Objective Physical Exam Constitutional: She is oriented to person, place, and time and well-developed, well-nourished, and in no distress. HENT: Right Ear: Tympanic membrane, external ear and ear canal normal. Left Ear: External ear and ear canal normal. Tympanic membrane is injected. A middle ear effusion is present. Nose: Nose normal. No rhinorrhea. Mouth/Throat: Uvula is midline, oropharynx is clear and moist and mucous membranes are normal. No posterior oropharyngeal edema or posterior oropharyngeal erythema. Eyes: Pupils are equal, round, and reactive to light. EOM are normal. Right eye exhibits no nystagmus. Cardiovascular: Normal rate and regular rhythm. Pulmonary/Chest: Effort normal and breath sounds normal. Neurological: She is alert and oriented to person, place, and time. No cranial nerve deficit. Gait normal. Coordination normal. GCS score is 15. Skin: Skin is warm and dry. Nursing note and vitals reviewed. ASSESSMENT/PLAN: 1. Left otitis media with effusion - ICD9: 381.4, ICD10: H65.92 (primary diagnosis) - Will begin treatment with Amoxicillin for 10 days - Supportive care with plenty of fluids, rest, and analgesia prn. - AMOXICILLIN 875 MG TABLET 2. Vertigo - ICD9: 780.4, ICD10: R42 - MECLIZINE 12.5 MG TABLET - Follow-up with your PCP in 3-5 days if symptoms have not improved or sooner if symptoms worsen - Discussed red flags and need for immediate medical evaluation if any occur. - Discussed supportive care treatment with fluids, rest and analgesia. - Discussed expected course of illness Marycruz Wyatt APRN.CNP CNOV Observed: 06/02/2018 Status: COMPLETED Source: [place] 9:45 AM [facility] REPOSITORY Office Visit (WSTR) RAISAVANESSA Nitza ([id number]) 1945 F Date Time Provider Department 06/02/18 9:45 AM MARYCRUZ WYATT ([facility]) [facility] During your visit today, we recorded the following information about you: Temperature Pulse Blood pressure Weight 99.2 degrees 72/minute 122/82 103 kg Marycruz Wyatt APRN.CNP 06/02/2018 10:06 AM Signed Subjective HPI Vanessa Hernandez is a 73 year old female who presents with left ear pain and sore throat this morning. She feels her hearing is worse. She feels a bit off balance today. Review of Systems Constitutional: Negative. Negative for fever. HENT: Positive for ear pain, hearing loss and sore throat. Negative for congestion. Respiratory: Negative. Negative for cough. Cardiovascular: Negative. Neurological: Positive for dizziness. BP 122/82 Pulse 72 Temp 37.3 ?C (99.2 ?F) (Tympanic) Wt 103 kg (227 lb) No past medical history on file. No past surgical history on file. ALLERGIES Bactrim [Sulfamethoxazole-Trimethoprim]; Codeine; Flagyl [Metronidazole Hcl]; Sulfa (Sulfonamide Antibiotics) MEDICATIONS gabapentin (NEURONTIN) 300 mg capsule Take 300 mg by mouth three times daily. hydroCHLOROthiazide (HYDRODIURIL, ESIDRIX) 25 mg tablet Take 25 mg by mouth once daily. iron,carbonyl-vitamin C (VITRON-C) 65 mg iron- 125 mg TbEC Take 1 tablet by mouth once daily. metoprolol succinate ER (TOPROL XL) 50 mg 24 hr tablet Take 50 mg by mouth twice daily. mirabegron (MYRBETRIQ) 25 mg Tb24 Take 25 mg by mouth twice daily. rosuvastatin (CRESTOR) 10 mg tablet Take 10 mg by mouth daily at bedtime. sertraline (ZOLOFT) 100 mg tablet Take 150 mg by mouth once daily. traZODone (DESYREL) 50 mg tablet Take 50 mg by mouth daily at bedtime. Cholecalciferol, Vitamin D3, 1,000 unit cap Take 1,000 Units by mouth twice daily. MULTIVITAMIN ORAL Take 1 tablet by mouth once daily. Centrum Silver SUMAtriptan (IMITREX) 6 mg/0.5 mL soln by SUBDERMAL route as needed. traMADol (ULTRAM) 50 mg tablet Take 1 tablet by mouth three times daily. No family history on file. Social History Substance Use Topics - Smoking status: Not on file - Smokeless tobacco: Not on file - Alcohol use Not on file Objective Physical Exam Constitutional: She is oriented to person, place, and time and well-developed, well-nourished, and in no distress. HENT: Right Ear: Tympanic membrane, external ear and ear canal normal. Left Ear: External ear and ear canal normal. Tympanic membrane is injected. A middle ear effusion is present. Nose: Nose normal. No rhinorrhea. Mouth/Throat: Uvula is midline, oropharynx is clear and moist and mucous membranes are normal. No posterior oropharyngeal edema or posterior oropharyngeal erythema. Eyes: Pupils are equal, round, and reactive to light. EOM are normal. Right eye exhibits no nystagmus. Cardiovascular: Normal rate and regular rhythm. Pulmonary/Chest: Effort normal and breath sounds normal. Neurological: She is alert and oriented to person, place, and time. No cranial nerve deficit. Gait normal. Coordination normal. GCS score is 15. Skin: Skin is warm and dry. Nursing note and vitals reviewed. ASSESSMENT/PLAN: 1. Left otitis media with effusion - ICD9: 381.4, ICD10: H65.92 (primary diagnosis) - Will begin treatment with Amoxicillin for 10 days - Supportive care with plenty of fluids, rest, and analgesia prn. - AMOXICILLIN 875 MG TABLET 2. Vertigo - ICD9: 780.4, ICD10: R42 - MECLIZINE 12.5 MG TABLET - Follow-up with your PCP in 3-5 days if symptoms have not improved or sooner if symptoms worsen - Discussed red flags and need for immediate medical evaluation if any occur. - Discussed supportive care treatment with fluids, rest and analgesia. - Discussed expected course of illness ZUNILDA Romeo APRN.CNP 06/02/2018 10:02 AM Signed ASSESSMENT/PLAN: 1. Left otitis media with effusion - ICD9: 381.4, ICD10: H65.92 (primary diagnosis) - Will begin treatment with Amoxicillin for 10 days - Supportive care with plenty of fluids, rest, and analgesia prn. - AMOXICILLIN 875 MG TABLET 2. Vertigo - ICD9: 780.4, ICD10: R42 - MECLIZINE 12.5 MG TABLET - Follow-up with your PCP in 3-5 days if symptoms have not improved or sooner if symptoms worsen - Discussed red flags and need for immediate medical evaluation if any occur. - Discussed supportive care treatment with fluids, rest and analgesia. - Discussed expected course of illness Marycruz Wyatt APRN.CNP OTITIS MEDIA GENERAL INFORMATION: Otitis media is an infection of the middle ear. The middle ear sits behind the eardrum. This infection may be caused by a virus or bacteria and often follows a cold. Children often have repeat ear infections. Otitis media is not contagious. INSTRUCTIONS: 1. An antibiotic has been prescribed. It should be taken exactly as prescribed. Do not stop the medicine even if the symptoms go away. 2. Xjti-cxc-nsaqccf pain medication may be taken or other pain medication as prescribed by the doctor. 3. Nothing should be placed in the ear unless instructed by your doctor. 4. The patient may return to school/daycare or work when the temperature is normal (98.6 F or 37 C). 5. The patient should not swim while the ear is infected. CONTACT YOUR DOCTOR IF YOU OR YOUR CHILD: 1. Does not feel better within 36 hours. 2. Develops a temperature over 102E F (39E C). 3. Starts vomiting or has diarrhea. 4. Develops drainage from the affected ear. 5. Has any new problem that may be related to the medicine prescribed. RETURN TO THE ED IF: 1. You or your child has a severe headache or pain around the ear. 2. You or your child notice swelling around the ear. 3. You or your child has a seizure (convulsion), twitching of the facial muscles, or passes out. 4. You or your child is dizzy, has a stiff neck, or cannot walk or talk normally. 5. Your child becomes more irritable or listless (not interested in his or her surroundings, does not get soothed by you holding him or her). Referring Provider: SELF [[id number]] Allergies As of Date: 06/02/2018 Noted Allergy Reaction BACTRIM (SULFAMETHOXAZOLE-TRIMETH*06/02/2018 2 - Rash CODEINE 06/02/2018 1 - Mental Status Change FLAGYL (METRONIDAZOLE HCL) 06/02/2018 2 - Rash SULFA (SULFONAMIDE ANTIBIOTICS) 06/02/2018 14 - Other: See Comments Comments: Does not remember Date Reviewed: 06/02/2018 Reviewed by: Marycruz ([facility]) Edmundo - Fully Assessed Reason for Visit: Ear Pain [817] Cmt: L; x1 day with balance issues Reason For Visit History Recorded Primary Visit Diagnosis:Left otitis media with effusion [H65.92] Other Visit Diagnosis:Vertigo [R42] Order(s):amoxicillin (AMOXIL) 875 mg tabletTake 1 tablet by mouth twice daily for 10 days.Disp: 20 tabletRfl: 0 meclizine (ANTIVERT) 12.5 mg tabTake 1 tablet by mouth three times daily as needed (dizziness).Disp: 9 tabletRfl: 0 Prescriptions as of 06/02/2018 Sig: GABAPENTIN 300 MG CAPSULE Take 300 mg by mouth three ti* HYDROCHLOROTHIAZIDE 25 MG TAB* Take 25 mg by mouth once patience* IRON,CARBONYL 65 MG-VITAMIN C* Take 1 tablet by mouth once d* METOPROLOL SUCCINATE ER 50 MG* Take 50 mg by mouth twice niraj* MIRABEGRON ER 25 MG TABLET,EX* Take 25 mg by mouth twice niraj* ROSUVASTATIN 10 MG TABLET Take 10 mg by mouth daily at * SERTRALINE 100 MG TABLET Take 150 mg by mouth once nirja* TRAZODONE 50 MG TABLET Take 50 mg by mouth daily at * CHOLECALCIFEROL (VITAMIN D3) * Take 1,000 Units by mouth twi* MULTIVITAMIN ORAL Take 1 tablet by mouth once d* SUMATRIPTAN 6 MG/0.5 ML SUBCU* by SUBDERMAL route as needed. TRAMADOL 50 MG TABLET Take 1 tablet by mouth three * AMOXICILLIN 875 MG TABLET Take 1 tablet by mouth twice * MECLIZINE 12.5 MG TABLET Take 1 tablet by mouth three * Problem List As Of Date: 06/02/2018 (None) Other instructions from your clinician: ASSESSMENT/PLAN: 1. Left otitis media with effusion - ICD9: 381.4, ICD10: H65.92 (primary diagnosis) - Will begin treatment with Amoxicillin for 10 days - Supportive care with plenty of fluids, rest, and analgesia prn. - AMOXICILLIN 875 MG TABLET 2. Vertigo - ICD9: 780.4, ICD10: R42 - MECLIZINE 12.5 MG TABLET - Follow-up with your PCP in 3-5 days if symptoms have not improved or sooner if symptoms worsen - Discussed red flags and need for immediate medical evaluation if any occur. - Discussed supportive care treatment with fluids, rest and analgesia. - Discussed expected course of illness Marycruz Wyatt, ELECTRICAL INTEGRATOR.CAP MAKER OTITIS MEDIA GENERAL INFORMATION: Otitis media is an infection of the middle ear. The middle ear sits behind the eardrum. This infection may be caused by a virus or bacteria and often follows a cold. Children often have repeat ear infections. Otitis media is not contagious. INSTRUCTIONS: 1. An antibiotic has been prescribed. It should be taken exactly as prescribed. Do not stop the medicine even if the symptoms go away. 2. Wqjt-fta-ovrysqz pain medication may be taken or other pain medication as prescribed by the doctor. 3. Nothing should be placed in the ear unless instructed by your doctor. 4. The patient may return to school/daycare or work when the temperature is normal (98.6 F or 37 C). 5. The patient should not swim while the ear is infected. CONTACT YOUR DOCTOR IF YOU OR YOUR CHILD: 1. Does not feel better within 36 hours. 2. Develops a temperature over 102E F (39E C). 3. Starts vomiting or has diarrhea. 4. Develops drainage from the affected ear. 5. Has any new problem that may be related to the medicine prescribed. RETURN TO THE ED IF: 1. You or your child has a severe headache or pain around the ear. 2. You or your child notice swelling around the ear. 3. You or your child has a seizure (convulsion), twitching of the facial muscles, or passes out. 4. You or your child is dizzy, has a stiff neck, or cannot walk or talk normally. 5. Your child becomes more irritable or listless (not interested in his or her surroundings, does not get soothed by you holding him or her). Prescriptions ordered this encounter Disp Refills Start End AMOXICILLIN 875 MG TABLET 20 t* 0 06/02/2018 06/12/2018 Route: ORAL Sig: Take 1 tablet by mouth twice daily for 10 days. MECLIZINE 12.5 MG TABLET 9 ta* 0 06/02/2018 Route: ORAL Sig: Take 1 tablet by mouth three times daily as needed (dizziness). Encounter Status:Closed by MARYCRUZ WYATT on 06/02/18 ALLERGIES ALLERGIES DATE TYPE / CODE NAME / CODE REACTION SEVERITY SOURCE 08/15/2018 Drug codeine/[id number] Unknown Unknown [facility] All[facility]/416 550(RXNO) [facility] 511154([facility] Repository ED CT) 08/15/2018 Drug sulfamethoxazol Unknown Unknown [facility] Allergy/416 e/[id number]([facility] 266417([facility] NORM) Repository ED CT) 08/15/2018 Drug trimethoprim/F0 Unknown Unknown [facility] [facility] Allergy/416 [id number]([facility] 721048([facility] ) Repository ED CT) 08/15/2018 Drug metronidazole/F Unknown Unknown [place] All[facility]/416 [id number]([facility] 068922([facility] M) Repository ED CT) 08/15/2018 Drug adhesive Area Sore SV [facility] Allergy/416 tape/[id number] [facility] 664744([facility] (RXNORM) Repository ED CT) 08/15/2018 Drug cefpodoxime/F00 Unknown Unknown [facility] Allergy/607 [id number](RXNORM) [facility] 287925([facility] Repository ED CT) ENCOUNTERS ENCOUNTERS ADMIT/DISCHARGE ACCOUNT ADMITTING ENCOUNTER LOCATION SOURCE NUMBER CLASS 08/18/2018/08/18/19 [id number] Ambulatory BMSBuilding:[address] [place] [address] [facility] Repository 08/15/2018/08/15/19 [id number] Ambulatory BMSBuilding:[facility] [place] [address] [facility] Repository 08/12/2018/08/12/19 [id number] Emergency [address] ing:ED Repository 08/11/2018/08/11/19 [id number] Ambulatory BMSBuilding:[facility] [place] [address] [place] Repository 06/02/2018/06/05/20 [id number] Ambulatory [address] Repository PAYERS PAYERS ENCOUNTER GUARANTOR PAYER SUBSCRIBER SOURCE 08/18/2018 VANESSA [id number] Primary VANESSA METCALF: [place] [address] Insurance:MEDICARE [id number] [address]Eic: (570) Number: Repository [phone] (HP) [id number] Date:2018-08-18 08/18/2018 Secondary NOT GIVENUNK [place] Insurance:SELF PAY [facility] Number: Effective Repository Date:2018-08-18 08/15/2018 VANESSA [id number] Primary VANESSA WASHINGTONB: [place] [address] Insurance:MEDICARE [id number] [address]Qov: (570) Number: Repository [phone] () [id number] Date:2018-08-14 08/15/2018 Secondary NOT GIVENUNK [place] Insurance:SELF PAY [facility] Number: Effective Repository Date:2018-08-15 08/12/2018 VANESSA [id number] Primary VANESSA METCALF: [place] [address] Insurance:MEDICARE [id number] [address]Gge: (570) Number: Repository [phone] () [id number] Date:2018-08-12 08/12/2018 Secondary NOT GIVENUNK [place] Insurance:SELF PAY [facility] Number: Effective Repository Date:2018-08-12 08/11/2018 VANESSA [id number] Primary [place]ANESSA MET[place]F: [place] [address] Insurance:MEDICARE [id number] [address]Ykw: (570) Number: Repository [phone] () [id number] Date:2018-07-21 08/11/2018 Secondary NOT GIVENUNK [place] Insurance:SELF PAY [facility] Number: Effective Repository Date:2018-07-21
== END 2018-08-12 04:00 | disposition home or self-care (01) ==
LOC: ED 02:44
PROVIDERS: Emergency Provider Emergency Medicine; Family Provider Internal Medicine; PCP Internal Medicine
DX: R10.9 Unspecified abdominal pain (principal); G89.29 Other chronic pain; R19.7 Diarrhea, unspecified; E87.6 Hypokalemia; I10 Essential (primary) hypertension; E78.00 Pure hypercholesterolemia, unspecified; Z86.73 Personal history of transient ischemic attack (TIA), and cerebral infarction without residual deficits; Z90.49 Acquired absence of other specified parts of digestive tract; Z79.899 Other long term (current) drug therapy
CPT/HCPCS: 74176; 80053; 81001; 82274; 82607; 83690; 84436; 84439; 84443; 84484; 85025; 85610; 93005; 96361; 96374; 99285; J7030; A4216; J2405

== ENCOUNTER 2018-08-24 05:26 | Day surgery (SDC) | payer MEDICARE, SELFPAY ==
[2018-08-15 14:04] VITALS: BMI 41.1
[2018-08-18 13:10] VITALS: BMI 41.1
[2018-08-24] VITALS (7 sets, daily range): BP systolic 78–139; BP diastolic 58–90; PULSE 64–79; RESP 16–20; TEMP 36.2–36.3; O2SAT 95–97; BMI 40.9
[2018-08-24 06:29] LABS: Potassium 3.4 mmol/L (3.5-5.1)
--- NOTE | 2018-08-24 06:30 | IMM_PTH ---
PATIENT: VANESSA KLINE LOC: [facility] U#:[id number] AGE/SX: 73/F ROOM: RE08/24/[address]: Dr. Damon Clark MD : 1945 BED: DIS: 08/24/2018 SPEC #: [id number] RECD: 08/24/18 12:10 STATUS: MYRNA REZach #: [id number] SOY: 08/24/18 06:[address]: Damon Clark DEPT: IMMUNOHISTOCHEMISTRY RECD BY: Shagufta Yoon ENTERED: 08/24/18 12:10 SP TYPE: IMMUNO OTHR DR: Dr. Yashira Hughes MD Tissues: B - Stomach, NOS Procedures: H Pylori (initial) PHYSICIAN & INSTITUTION [place] [id number] SPECIMEN INFORMATION: Tissue Source: B - Gastric antrum Clinical Info: Generalized abdominal pain, dark stools Specimen Number: [id number] CPT code: 98821 METHODOLOGY: Deparaffinized sections of prefer/formalin-fixed tissue or PAP/DQ stained slides are incubated with monoclonal/polyclonal antibodies/oligonucleotide probes. Localization is made via biotin free immunoperoxidase method. Appropriate controls are performed and reacted as expected. Results on target cell population are indicated in the following table: RESULTS: ANTIBODY / CLONE RESULT Block B H Pylori (polyclonal) negative These tests were developed and their performance characteristics determined by [facility]. They may not have been cleared or approved by the U.S. Food and Drug Administration. The FDA has determined that such clearance or approval is not necessary. INTERPRETATION: B. Gastric antrum, biopsy: Negative for Helicobacter pylori organisms. AM:hitesh 08/25/18
--- NOTE | 2018-08-24 06:30 | EGD_PTH ---
PATIENT: VANESSA KLINE LOC: EN U#:[id number] AGE/SX: 73/F ROOM: RE08/24/[address]: Dr. Damon Clark MD : 1945 BED: DIS: 08/24/2018 SPEC #: [id number] RECD: 08/24/18 09:21 STATUS: MYRNA SHAYNE #: [id number] SOY: 08/24/18 06:[address]: Damon Clark DEPT: SURGICAL PATHOLOGY RECD BY: Todd Brown ENTERED: 08/24/18 10:12 SP TYPE: EGD BIOPSY KEYON DR: Dr. Yashira Hughes MD Tissues: A - Duodenum, NOS B - Gastric mucous membrane C - Gastric mucous membrane D - Esophageal mucous membrane Procedures: PAS Fungus (control) Special Stain Group I Surgery Specimen Level IV HEADER OPERATION: Colonoscopy, EGD ([facility]) PRE-OP DIAGNOSIS: Generalized abdominal pain, dark stools TISSUE SUBMITTED: A - Biopsy duodenum, B - Biopsy gastric antrum, H. pylori and path, C - Biopsy ulcer lesser curvature, D - Biopsy distal esophagus MICROSCOPIC DIAGNOSIS A. Duodenum, biopsy: No pathologic diagnosis. B. Gastric antrum, biopsy: Mild chronic gastritis. See comment. C. Stomach, lesser curvature ulcer, biopsy: Strips of benign superficial gastric mucosa. Fibrinoid material with acute inflammation. Negative for fungal organisms. See comment. D. Distal esophagus, biopsy: Gastroesophageal junctional mucosa with mild chronic inflammation. Fragments of benign squamous mucosa. AM:hitesh 08/25/18 COMMENT B. The results of immunohistochemistry for Helicobacter pylori will be reported separately ([id number]). C. PASF stain with matched control was used in the evaluation of this case. MICROSCOPIC DESCRIPTION Slides are reviewed. GROSS DESCRIPTION A - Received in fixative is one container labeled with the patient's name and designated duodenal biopsy. The specimen consists of one irregular fragment of light méndez soft tissue that measures 0.3 x 0.2 x 0.1 cm. The specimen is totally submitted in one cassette. B - Received in fixative is one container labeled with the patient's name and designated gastric antrum. The specimen consists of one irregular fragment of light méndez soft tissue that measures 0.2 x 0.2 x 0.1 cm. The specimen is totally submitted in one cassette. C - Received in fixative is one container labeled with the patient's name and designated biopsy ulcer lesser curvature of stomach. The specimen consists of two irregular fragments of light méndez soft tissue that in aggregate measure 0.3 x 0.2 x 0.1 cm. The specimen is totally submitted in one cassette. D - Received in fixative is one container labeled with the patient's name and designated biopsy distal esophagus. The specimen consists of one irregular fragment of light méndez soft tissue that measures 0.2 x 0.1 x 0.1 cm. The specimen is totally submitted in one cassette. / AM:hitesh 08/24/18 TC:2 CPT: 26839 x4, 14634
--- NOTE | 2018-08-24 06:59 | OP.ENDO_ITS ---
Patient Name: Avril Hernandez Procedure Date: 08/24/2018 6:03 AM Date of : 1945 Age: 73 Procedure: Upper GI endoscopy Indications: Abdominal pain in the left upper quadrant Providers: Damon Clark MD Medicines: See the Anesthesia note for documentation of the administered medications Complications: No immediate complications. Procedure: Pre-Anesthesia Assessment: - Prior to the procedure, a History and Physical was performed, and patient medications and allergies were reviewed. The patient's tolerance of previous anesthesia was also reviewed. The risks and benefits of the procedure and the sedation options and risks were discussed with the patient. All questions were answered, and informed consent was obtained. Prior Anticoagulants: The patient has taken no previous anticoagulant or antiplatelet agents. ASA Grade Assessment: II - A patient with mild systemic disease. After reviewing the risks and benefits, the patient was deemed in satisfactory condition to undergo the procedure. After obtaining informed consent, the endoscope was passed under direct vision. Throughout the procedure, the patient's blood pressure, pulse, and oxygen saturations were monitored continuously. The gastroscope was introduced through the mouth, and advanced to the second part of duodenum. The upper GI endoscopy was accomplished without difficulty. The patient tolerated the procedure well. Scope In: 6:30:40 AM Scope Out: 6:37:31 AM Total Procedure Duration Time 0 hours 6 minutes 51 seconds Findings: Esophagitis with no bleeding was found 38 cm from the incisors. Biopsies were taken with a cold forceps for histology. A small hiatal hernia was present. Diffuse mild inflammation was found in the gastric antrum. Biopsies were taken with a cold forceps for histology. One non-bleeding superficial gastric ulcer with no stigmata of bleeding was found on the lesser curvature of the stomach. Biopsies were taken with a cold forceps for histology. Diffuse mildly erythematous mucosa without active bleeding and with no stigmata of bleeding was found in the duodenal bulb. Biopsies were taken with a cold forceps for histology. Impression: - Reflux esophagitis. Biopsied. - Small hiatal hernia. - Gastritis. Biopsied. - Non-bleeding gastric ulcer with no stigmata of bleeding. Biopsied. - Erythematous duodenopathy. Biopsied. Recommendation: - Discharge patient to home. - Resume previous diet. - Use Prilosec (omeprazole) 40 mg PO daily. - Telephone my office for pathology results in 1 week. - Continue present medications. Procedure Code(s): --- Professional --- 26745, Esophagogastroduodenoscopy, flexible, transoral; with biopsy, single or multiple Diagnosis Code(s): --- Professional --- K21.0, Gastro-esophageal reflux disease with esophagitis K44.9, Diaphragmatic hernia without obstruction or gangrene K29.70, Gastritis, unspecified, without bleeding K25.9, Gastric ulcer, unspecified as acute or chronic, without hemorrhage or perforation K31.89, Other diseases of stomach and duodenum R10.12, Left upper quadrant pain CPT copyright 2017 [employer]. All rights reserved. The codes documented in this report are preliminary and upon principle software engineer review may be revised to meet current compliance requirements. Damon Clark MD 08/24/2018 6:59:17 AM This report has been signed electronically. Number of Addenda: 0 Note Initiated On: 08/24/2018 6:03 AM
--- NOTE | 2018-08-24 07:02 | OP.ENDO_ITS ---
Patient Name: Avril Hernandez Procedure Date: 08/24/2018 6:39 AM Date of : 1945 Age: 73 Procedure: Colonoscopy Indications: Abdominal pain in the left upper quadrant Providers: Damon Clark MD Medicines: See the Anesthesia note for documentation of the administered medications Patient Profile: Last Colonoscopy: none. The patient's first colonoscopy is today. Complications: No immediate complications. Procedure: Pre-Anesthesia Assessment: - Prior to the procedure, a History and Physical was performed, and patient medications and allergies were reviewed. The patient's tolerance of previous anesthesia was also reviewed. The risks and benefits of the procedure and the sedation options and risks were discussed with the patient. All questions were answered, and informed consent was obtained. Prior Anticoagulants: The patient has taken no previous anticoagulant or antiplatelet agents. ASA Grade Assessment: II - A patient with mild systemic disease. After reviewing the risks and benefits, the patient was deemed in satisfactory condition to undergo the procedure. After I obtained informed consent, the scope was passed under direct vision. Throughout the procedure, the patient's blood pressure, pulse, and oxygen saturations were monitored continuously. The pediatric colonoscope was introduced through the anus and advanced to the cecum, identified by appendiceal orifice and ileocecal valve. The colonoscopy was performed without difficulty. The patient tolerated the procedure well. The quality of the bowel preparation was adequate to identify polyps. The ileocecal valve was photographed. Scope In: 6:40:31 AM Scope Withdrawal Time 0 hours 7 minutes 15 seconds Scope Out: 6:52:31 AM Total Procedure Duration Time 0 hours 12 minutes 0 seconds Findings: Tight anus,mild stenosis. Multiple diverticula were found in the entire colon. Impression: - Internal hemorrhoids that prolapse with straining, but spontaneously regress to the resting position (Grade II) found on digital rectal exam. - Diverticulosis in the entire examined colon. - No specimens collected. Recommendation: - Discharge patient to home. - Resume previous diet. - Continue present medications. - Repeat colonoscopy in 10 years for screening purposes. No acute findings to correlate with abdominal pain Procedure Code(s): --- Professional --- 01811, Colonoscopy, flexible; diagnostic, including collection of specimen(s) by brushing or washing, when performed (separate procedure) Diagnosis Code(s): --- Professional --- K64.1, Second degree hemorrhoids R10.12, Left upper quadrant pain K57.30, Diverticulosis of large intestine without perforation or abscess without bleeding CPT copyright 2017 [employer]. All rights reserved. The codes documented in this report are preliminary and upon dock grader review may be revised to meet current compliance requirements. Damon Clark MD 08/24/2018 7:02:28 AM This report has been signed electronically. Number of Addenda: 0 Note Initiated On: 08/24/2018 6:39 AM
== END 2018-08-24 07:42 | disposition home or self-care (01) ==
LOC: EN 05:26 → AC 05:27
PROVIDERS: Anesthesiology; Family Provider Internal Medicine; PCP Internal Medicine; Referring Provider Surgery; Visit Provider Surgery
PROC: 0DJD8ZZ Inspection of Lower Intestinal Tract, Via Natural or Artificial Opening Endoscopic (ICD-10-PCS; CPT 45378; principal; 2018-08-24 06:25)
DX: K29.50 Unspecified chronic gastritis without bleeding (principal); K25.9 Gastric ulcer, unspecified as acute or chronic, without hemorrhage or perforation; K44.9 Diaphragmatic hernia without obstruction or gangrene; K21.0 Gastro-esophageal reflux disease with esophagitis; K62.4 Stenosis of anus and rectum; K57.30 Diverticulosis of large intestine without perforation or abscess without bleeding; K64.1 Second degree hemorrhoids; Z86.010 Personal history of colon polyps; I10 Essential (primary) hypertension; D64.9 Anemia, unspecified; G43.909 Migraine, unspecified, not intractable, without status migrainosus; M19.90 Unspecified osteoarthritis, unspecified site; G62.9 Polyneuropathy, unspecified; K58.9 Irritable bowel syndrome, unspecified; E78.00 Pure hypercholesterolemia, unspecified; F41.9 Anxiety disorder, unspecified; F32.9 Major depressive disorder, single episode, unspecified; M06.9 Rheumatoid arthritis, unspecified; E66.01 Morbid (severe) obesity due to excess calories; Z68.41 Body mass index [BMI] 40.0-44.9, adult; Z87.01 Personal history of pneumonia (recurrent); Z87.11 Personal history of peptic ulcer disease; Z86.73 Personal history of transient ischemic attack (TIA), and cerebral infarction without residual deficits; Z87.19 Personal history of other diseases of the digestive system; Z90.49 Acquired absence of other specified parts of digestive tract; Z79.899 Other long term (current) drug therapy; Z87.891 Personal history of nicotine dependence
CPT/HCPCS: 43239; 45378; 84132; 88305; 88312; 88342; J7120

== ENCOUNTER → 2018-08-28 18:48 | Outpatient (CLI) | payer MEDICARE, MEDICAID, SELFPAY ==
[2018-08-24 05:47] VITALS: BMI 40.9
--- NOTE | 2018-08-28 18:58 | RAD_ITS ---
STUDY: X-RAY - LUMBAR SPINE REASON FOR EXAM: Female, 73 years old. Low back pain TECHNIQUE: 3 view(s) of the lumbar spine were obtained. COMPARISON: None FINDINGS: There is straightening of the normal lumbar lordosis. There is a levoscoliosis of the lumbar spine. There is a normal alignment of the vertebrae in the lateral view. There is multilevel endplate spondylosis of the lumbar vertebrae. There is multi-level degenerative disc disease with multi-level disc space narrowing. There is no demonstrated fracture. There is atherosclerotic calcification of the abdominal aorta without a demonstrated aneurysm. RAD/Lumbar Spine 2 or 3 Views IMPRESSION: Degenerative changes of the spine, as detailed above. Electronically Signed: Yehuda Marin MD at 14:56 EST , Service support ,
--- NOTE | 2018-08-28 18:59 | RAD_ITS ---
STUDY: X-RAY - BILATERAL HIPS WITHOUT PELVIS REASON FOR EXAM: Female, 73 years old. Pain TECHNIQUE: 2 views of the right hip, and 2 views of the left hip were obtained, and one view of the pelvis. COMPARISON: None. FINDINGS: Right Hip: Normal right femoral head, neck, intertrochanteric region and visualized proximal femur. Normal right acetabulum. There is moderate articular joint space narrowing of the right hip. Left Hip: Normal left femoral head, neck, intertrochanteric region and visualized proximal femur. Normal left acetabulum. There is moderate articular joint space narrowing of the left hip. Normal bilateral superior and inferior pubic rami , ischial tuberosities and pubic symphysis. RAD/Hips B/L min 2 views w/ Pelvis IMPRESSION: Degenerative arthrosis, no demonstrated fracture or suspicious osseous lesion. However, hip and pelvic fractures in patients of this age can be subtle, if there is strong clinical suspicion of a fracture, recommend further evaluation with CT Electronically Signed: Yehuda Marin MD at 16:13 EST , Service support ,
== END ==
PROVIDERS: Family Provider Internal Medicine; PCP Internal Medicine; Visit Provider Anesthesiology Pain Medicine
DX: M54.5 Low back pain (principal); M16.0 Bilateral primary osteoarthritis of hip
CPT/HCPCS: 72100; 73521

== ENCOUNTER → 2018-09-08 13:05 | Outpatient (CLI) | payer MEDICARE, MEDICAID, SELFPAY ==
[2018-08-24 05:47] VITALS: BMI 40.9
[2018-09-08 10:16] VITALS: BMI 40.9
--- NOTE | 2018-09-08 13:15 | MRI_ITS ---
STUDY: MRI LUMBAR SPINE WITHOUT CONTRAST REASON FOR EXAM: Female, 73 years old. low back pain bilaterally radiating into L leg x 8 months TECHNIQUE: Standardized fat and water weighted pulse sequences were obtained in the sagittal and axial planes. COMPARISON: None FINDINGS: T12-L1: Normal endplates. Normal disc height, hydration and morphology. Normal bilateral facet joints. Normal central canal and bilateral lateral recesses. Normal bilateral intervertebral neural foramina. Normal lumbar lordosis. There is no substantial scoliosis. Normal conus medullaris that terminates at the L1 level. L1-2: Endplate spondylosis. Decreased disc height and to moderate circumferential disc bulge. Degenerative changes of the bilateral facet joints. Mild narrowing of the central canal and bilateral intervertebral neural foramina. L2-3: Endplate spondylosis. Decreased disc height and to moderate circumferential disc bulge. Degenerative changes of the bilateral facet joints. Moderate narrowing of the central canal. Moderate left and severe right intervertebral neural foraminal narrowing. L3-4: Endplate spondylosis. Decreased disc height and moderate circumferential disc bulge. Degenerative changes of the bilateral facet joints. Moderate narrowing of the central canal and bilateral intervertebral neural foramina. L4-5: Endplate spondylosis. Decreased disc height and moderate circumferential disc bulge. Degenerative changes of the bilateral facet joints. Severe narrowing of the central canal and moderate narrowing of the bilateral intervertebral neural foramina. L5-S1: Endplate spondylosis. Decreased disc height and moderate circumferential disc bulge. Left para midline disc osteophyte bulge impinging on the left S1 nerve root. Degenerative changes of the bilateral facet joints. Moderate narrowing of the central canal. Moderate right and severe left intervertebral neural foraminal narrowing. Normal visualized sacral ala. Normal visualized paraspinous soft tissue structures. MRI/Spine Lumbar (Routine) IMPRESSION: Multilevel degenerative changes, as described above. Electronically Signed: Kacy Eid MD at 12:13 EST Tel , Service support ,
== END ==
PROVIDERS: Family Provider Internal Medicine; PCP Internal Medicine; Referring Provider Anesthesiology Pain Medicine; Visit Provider Anesthesiology Pain Medicine
DX: M54.9 Dorsalgia, unspecified (principal); M79.606 Pain in leg, unspecified
CPT/HCPCS: 72148

== ENCOUNTER 2018-09-30 11:12 | Emergency (ER) | payer MEDICARE, MEDICAID, SELFPAY ==
[2018-09-08 10:16] VITALS: BMI 40.9
[2018-09-30 11:12] VITALS: BP 143/78; PULSE 76; RESP 18; TEMP 36.9; O2SAT 97; BMI 41.3
--- NOTE | 2018-09-30 11:30 | CT_ITS ---
STUDY: CT BRAIN WITHOUT CONTRAST REASON FOR EXAM: Female, 73 years old. Dizziness RADIATION DOSAGE (If Supplied By Facility): CTDIvol = ( 44.99 ) mGy, DLP = ( 796.11 ) mGycm TECHNIQUE: Transaxial CT imaging of the brain was performed without administration of intravenous contrast material. Individualized dose optimization techniques were used for this CT. COMPARISON: None. FINDINGS: Normal soft tissue structures. Normal calvarium. Normal size ventricles and extra-axial spaces for the patient's age. Normal white matter tracts of the cerebral hemispheres. Normal basal ganglia and thalami. Normal brainstem. Normal cerebellum. There is no intracranial hemorrhage. There are no findings of an acute ischemic infarction. There is mucoperiosteal inflammatory disease of the right ethmoid and maxillary sinuses consistent with mild chronic sinusitis. CT/Brain/Head without Contrast IMPRESSION: 1. No acute intracranial hemorrhage or mass effect. 2. Age-appropriate involutional changes. 3. Right ethmoid and maxillary chronic sinusitis. Electronically Signed: Miki Mccray MD at 12:26 EST , Service support ,
--- NOTE | 2018-09-30 11:30 | RAD_ITS ---
STUDY: X-RAY CHEST REASON FOR EXAM: Female, 73 years old. Dizziness, cold like symptoms TECHNIQUE: AP COMPARISON: None. FINDINGS: EKG leads project over the chest. The lungs are clear and expanded. There is no demonstrated pleural abnormality. Normal size heart. Normal mediastinum and thai. Normal visualized pulmonary arteries. Normal visualized aortic arch and descending thoracic aorta. Normal visualized thoracic spine. Normal visualized ribs, clavicles, and shoulders. There is no demonstrated abnormality of the visualized soft tissue structures of the upper abdomen. RAD/Chest 1 View (Portable) IMPRESSION: 1. Nonacute portable x-ray examination of the chest. Electronically Signed: Miki Mccray MD at 12:23 EST , Service support ,
[2018-09-30 11:39] VITALS: BP 133/78; PULSE 77; RESP 18; O2SAT 97
[2018-09-30 11:58] LABS: Absolute Lymphocyte Count 1.44 X10^3/ul (0.83-4.51); Basophil# 0.01 X10^3/uL; Basophil% 0.1 % (0-1); Eosinophil# 0.21 X10^3/uL; Eosinophils% 2.4 % (0-5); Hematocrit 43.1 % (37-47); Hemoglobin 13.3 g/dl (12.0-15.0); Lymphocyte # 1.44 X10^3/ul (4.0); Lymphocyte % 16.4 % (19-41); Mean Corp Hgb Conc 30.9 g/gl (32-36); Mean Corpuscular Hgb 29.2 pg (27.0-32.0); Mean Corpuscular Volume 94.5 fL (81-99); Monocyte# 1.18 X10^3/uL; Monocyte% 13.4 % (0-10); Neutrophil # 5.95 X10^3/uL (2.7-7.7); Neutrophil % 67.6 % (47-70); Platelet Count 183 K/mm3 (150-450); RBC Distribution Width CV 14.1 % (11.6-14.6); RBC Distribution Width SD 48.4 fl (35.1-43.9); Red Blood Count 4.56 M/mm3 (4.2-5.4); White Blood Count 8.8 K/mm3 (4.4-11.0)
[2018-09-30 12:00] LABS: POSITIVE COUNT NO; POSITIVE DIFFERENTIAL NO; POSITIVE MORPHOLOGY NO
[2018-09-30 12:14] LABS: AST(SGOT) 25 U/L (15-37); Alanine Aminotransfer ALT/SGPT 38 U/L (13-56); Albumin, Serum 3.5 g/dL (3.2-5.0); Alkaline Phosphatase 63 U/L (45-117); Anion Gap 6 (5-15); BUN 13 mg/dL (7-18); BUN/Creat Ratio 20.1 RATIO (10-20); Calcium,Total 8.5 mg/dL (8.5-10.1); Chloride 101 mmol/L (98-107); Creatinine, Serum 0.65 mg/dL (0.55-1.02); EST Glomerular Filtration Rate 95 mL/min (>60); Est Glom Filt Rate - Afr Amer 115 mL/min (>60); Estimated Creatinine Clearance 39.63 ml/min; Globulin 3.4 g/dL (2.2-4.2); Glucose 86 mg/dL (74-106); Protein, Total 6.9 g/dL (6.4-8.2); Sodium Level 139 mmol/L (136-145)
[2018-09-30 12:44] VITALS: BP 156/96; PULSE 69; RESP 17; O2SAT 96
[2018-09-30 13:02] VITALS: BP 128/112; PULSE 73; RESP 18; O2SAT 96
[2018-09-30 13:09] LABS: Red Blood Cells-Urine 0 SEEN /hpf (0-5)
[2018-09-30 13:10] LABS: Color, Urine Yellow (Yellow); Glucose, Dipstick Normal (Normal); Ketone-Dipstick Negative (Negative); Leukocyte Esterase-Dipstick 25 /ul (Negative); Nitrite-Dipstick Negative (Negative); Occult Blood-Urine 50 /ul (Negative); Protein-Dipstick Negative (Negative); Specific Gravity, Urine 1.015 (1.002-1.030); Urine Bilirubin Dipstick Negative (Negative); Urine Clarity Sl. Cloudy (Clear); Urine Urobilinogen Normal (Normal); Urine pH 6.5 (5.0 - 8.0)
[2018-09-30 13:22] LABS: Bacteria 1+ /hpf (None Seen); Mucous, Urine RARE /hpf (<or=2+); Squamous Epithelial Cells - UA 0-5 SEEN /hpf (5-10); White Blood Cells 0-5 SEEN /hpf (0-5)
--- NOTE | 2018-09-30 13:51 | ED.VISSUMM ---
- ER Visit Summary Date of Service: 09/30/18 Chief Complaint: Cough, shortness of breath, dizziness History of Present Illness: The patient is a 73 F who complains of the above symptoms. It has been ongoing for 2 days. She has had a lot of sinus drainage. She has fallen at home a couple of times over the past couple of months. She did hit her head. She has not had a fever. She takes no blood thinning medications. She feels dizzy which she quantifies mostly is lightheaded. She is in pain management for chronic back pain. Family states that she is intermittently confused. When asked him to describe this they state that she just gets forgetful at times. Physical Examination: Vital signs reviewed. HEENT exam unremarkable. Heart is regular rate and rhythm without murmurs. Lungs are clear to auscultation. Abdomen is soft and nontender. Extremities reveal no edema. Skin exam normal. Neurologic exam normal. Test Results: Laboratory studies are unremarkable except for potassium of 3. Urinalysis negative for infection. Chest x-ray normal. CAT scan of the head reveals sinusitis with chronic changes Emergency Department Course and Treatment: The patient appears very well. This dizziness could be attributed to the amount of sinusitis that she has. I will give her Augmentin to help with the sinusitis. I feel that she is safe to go home as she lives with family. There are no signs of any old strokes on the CAT scan. She will need to follow-up with her PCP for further evaluation Treatment Plan: [] Disposition: Discharge Impression: Sinusitis This note was generated with [employer] dictation software. It may contain incorrect words, spelling, and punctuation that were not noted in review of the chart prior to signing ED Disposition - Plan for ED Patient: Referrals: Yashira Hughes MD [Primary Care Provider] -
--- NOTE | 2018-09-30 13:53 | ED.DEP ---
ED Disposition - Plan for ED Patient: Disposition: Home or Assisted Living Instructions: ED Dizziness [facility] Prescriptions: Amox/Clavulanate Tablet [Augmentin Tablet] 875 mg PO Q12H #20 tablet Referrals: Yashira Hughes MD [Primary Care Provider] - Additional Instructions: Your prescription was electronically transferred to [facility]
[2018-09-30] MEDS: Amox/Clavulanate 875 MG Tablet PO (14:04)
[2018-09-30 14:10] VITALS: BP 169/106; PULSE 75; RESP 17
== END 2018-09-30 14:11 | disposition home or self-care (01) ==
PROVIDERS: Emergency Provider Emergency Medicine; Family Provider Internal Medicine; PCP Internal Medicine
DX: J32.9 Chronic sinusitis, unspecified (principal); G89.29 Other chronic pain; M54.9 Dorsalgia, unspecified; K21.9 Gastro-esophageal reflux disease without esophagitis; I10 Essential (primary) hypertension; E78.00 Pure hypercholesterolemia, unspecified; D64.9 Anemia, unspecified; Z79.891 Long term (current) use of opiate analgesic; Z79.899 Other long term (current) drug therapy
CPT/HCPCS: 70450; 71045; 80053; 81001; 84484; 85025; 99285; A4216

== ENCOUNTER → 2018-10-24 10:15 | Outpatient (CLI) | payer MEDICARE, MEDICAID, SELFPAY ==
[2018-10-19 10:14] VITALS: BMI 42.0
[2018-10-24 12:36] LABS: Amphetamine Urine VISTA NEGATIVE (<1000 ng/mL); Barbiturate Urine VISTA NEGATIVE (< 200 ng/mL); Benzodiazepine Urine VISTA NEGATIVE (< 200 ng/mL); Cocaine Urine VISTA NEGATIVE (< 300 ng/mL); Ecstacy Urine VISTA NEGATIVE (< 500 ng/mL); Methadone Urine VISTA NEGATIVE (< 300 ng/mL); PCP Urine VISTA NEGATIVE (< 25 ng/mL); THC Urine VISTA NEGATIVE (< 50 ng/mL); Vista UDS pH Range 5
== END ==
PROVIDERS: Family Provider Internal Medicine; PCP Internal Medicine; Referring Provider Anesthesiology Pain Medicine; Visit Provider Anesthesiology Pain Medicine
DX: F11.20 Opioid dependence, uncomplicated (principal)
CPT/HCPCS: 80307

== ENCOUNTER → 2018-11-29 | Outpatient (CLI) | payer MEDICARE, MEDICAID, SELFPAY ==
[2018-10-19 10:14] VITALS: BMI 42.0
--- NOTE | 2018-11-29 13:35 | RAD_ITS ---
STUDY: X-RAY - LEFT KNEE REASON FOR EXAM: Female, 73 years old. Left knee pain TECHNIQUE: 5 view(s) of the knee. COMPARISON: None. FINDINGS: Normal visualized distal femur. Normal visualized proximal tibia and fibula. Normal proximal tibiofibular articulation. There is mild degenerative arthrosis of the medial femorotibial compartment. There is mild degenerative arthrosis of the lateral femorotibial compartment. There is mild degenerative arthrosis of the patellofemoral articulation. There is no demonstrated joint effusion. The soft tissue structures are unremarkable. RAD/Knee 4 or More Views IMPRESSION: Mild tricompartmental osteoarthrosis. No joint effusion. Electronically Signed: Miki Mccray MD at 13:27 EDT , Service support ,
== END | disposition home or self-care (01) ==
LOC: HPRAD 13:35
PROVIDERS: Family Provider Internal Medicine; PCP Internal Medicine; Referring Provider Orthopaedic Surgery; Visit Provider Orthopaedic Surgery
DX: M25.562 Pain in left knee (principal)
CPT/HCPCS: 73564

== ENCOUNTER 2018-11-30 10:30 | Outpatient (RCR) | payer MEDICARE, MEDICAID, SELFPAY ==
[2018-10-19 10:14] VITALS: BMI 42.0
--- NOTE | 2018-10-25 12:41 | HP.PTEVAL_ITS ---
Patient's Visit Information VANESSA KLINE is a 73 year old F referred to Physical Therapy by Alvin Steele DO with a diagnosis of L greater trochanter bursitis, L knee pain. Date of Evaluation: 10/25/18 Physical Therapist: Rehan Kim DPT - Visit Plan Frequency: 2x /Week Duration: 4 Weeks Plan: Start with L TFL, L piriformis and L hs stretching. Add in glute med and glute max strengthening once symptoms have started to resolve. May use some modalities to reduce symptoms as well. - Subjective Findings: Pt. is here today for her initial evaluation with diagnosis of L greater trochanteric bursitis and L knee pain. Pt. has been having increased pain for ~10 months. Pt. reprost having recent an injection in her L hip and L knee. Pt. has had good relief with her recent injections. Pt. has increased pain with ADLs, walking, and increased activity causes increased symptoms. Pt. reports decreased pain with lying down and decreased pain with heat. Pt. does have a history of LBP with surgies x2. Pt. is pleased with decreased hip and knee pain with her injections. Pt. - Pain L hip Pain Intensity (Out of 10): 0 Pain Intensity Range: 0, 6 L knee Pain Intensity (Out of 10): 2 Pain Intensity Range: 0, 6 - Objective POSTURE: Pt. is over wt. Pt. had general flexed posture. She has slight wt. shift to R side in stance. PALAPTION: Pt. has increased tenderness along posterior lateral aspect of L greater torchanter. Pt. has increased pain directly over greater trochanter as well. She also has pain along the popliteal fossa of L knee. NEURO: Pt. has normal senation and DTR of bilatearl LEs. Pt. is able to rise on heels and toes without LOB or incrase in symptoms. ROM: Pt. has normal ROM of L hip without increase in symptoms. Pt. has a + obers test. Pt. has decreased L knee ROM lacking end range ext (lacking 5 deg) increased pain as limiting factor. MMT: RLE- ankel 5/5 throughout; knee- 5/5 throughout; hip- flexion 4/5, abd 4/5, ext 4/5. LLE- ankle 5/5 throughout; knee- ext 5-/5 incrase NW, flexion 5/5 NE; hip- flexion 4/5, abd 4-/5, ext 4/5. Core strength- poor. GAIT: Pt ambulates with spc on R side. Pt. reprots increased pain with all wbing on LLE. Pt. has increased lateral sway bilaterally during stance pahse. Pt. has decreased tempo with gait. - Goals Goal 1:: Pt. to be I with HEP Goal Time Frame: 4-6 Weeks Goal 2:: Pt. have increased tissue length of L TFL and L piriformis msucles. Goal Time Frame: 4-6 Weeks Goal 3:: Pt. to have increaed L knee ROM to full ext without increase in sym ptoms. Goal Time Frame: 4-6 Weeks Goal 4:: Pt. to have ambulate with 0-1/10 pain in L knee and hip. Goal Time Frame: 4-6 Weeks Goal 5:: Pt. to compelte all ADLs with 0-1/10 pain in L knee and L hip. Goal Time Frame: 4-6 Weeks - Rehabilitation Potential Physical Therapy Diagnosis: Pt. has signs and symptoms consistent with L greater trochanteric bursitis and L knee pain. Pt. had positive results with injections recently. Pt. has tight TFL on L side, tight HS and tight piriformis muscles. Pt. has full L hip ROM. Pt. also lacks TKE on L knee. Pt. would benefit from PT to increase her ROM, progress stretching, increase glute strength progressing to HEP. Rehabilitation Potential: Good - Anticipated Interventions Patient/Client Instruction: Educate patient on: Condition, Plan of Care, Risk Factors For the Purpose of:: To improve decision making, To facilitate caregiver knowledge, To improve self management, To prevent re-injury, To improve ability to perform tasks related to life management, To improve tolerance to ADL's Therapeutic Exercise to Include: Strength training, Power training, Endurance training, Postural training, Flexibilty training, Gait and locomotor training, Passive ROM, Active ROM, Dynamic Lumbar Stabilization For the Purpose of:: To decrease pain, To decrease swelling/inflammation, To increase ROM, To improve nutrient delivery to tissue, To increase oxygenation perfusion, To improve muscle performance and motor function, To improve ability to perform ADL's, To increase tolerance to activity/condition/position Thermo therapy (hot pack): Yes Ultrasound (thermal/non thermal): Yes For the Purpose of:: To decrease pain, To decrease swelling/inflammation, To increase ROM Thank you for the opportunity to evaluate your patient. For Medicare and Medicare HMO plans, please review the plan of care and approve it. It will need to be FAXED BACK to us at [phone] for Medicare purposes. For Medicare only, by signing this I certify the plan of care. Please let me know if there are questions or concerns regarding this plan of care. Physician Signature: Date:
--- NOTE | 2018-12-04 12:02 | HP.PTDCSUM ---
HP - PT D/C Summary It has been my pleasure to treat VANESSA KLINE under orders from Alvin Steele DO, for the diagnosis of L greater trochanter bursitis, L knee pain for a total of 7 visit(s). Discharge Date: 11/30/18 Please see the following information for a summary of their discharge status. - Subjective Subjective: Pt. reports 'I saw the doctor and they took xrays and saw that it is bone on bone in that knee. Pt. reports she is scheduled to have a knee replacement next month. Pt. reports being 50% better overall in her hip. - Pain L hip Pain Intensity (Out of 10): 2 L knee Pain Intensity (Out of 10): 2 R hip Pain Intensity (Out of 10): 2 Lumbar spine Pain Intensity (Out of 10): 2 - Overall Improvement % Improvement: 50 - Objective Objective/Function: Pt. tolerated all PT. Pt. has no pain in mild traction. Pt. is to have L knee surgery next month and was referred to spinal surgeon for back and hip pain. MMT: LLE- ankle 5/5; knee- 5/5 throughout; hip- flexion 4/5, abd 4/5, ext 4/5. Core strength- poor. GAIT: Pt. ambulates with cane, she continues to have flexed posture and increased R lateral lean during stance phase - Goals Goal 1:: Pt. to be I with HEP Goal Progress: Goal Met Goal 2:: Pt. have increased tissue length of L TFL and L piriformis msucles. Goal Progress: Goal Met Goal 3:: Pt. to have increaed L knee ROM to full ext without increase in symptoms. Goal Progress: Progressing Goal 4:: Pt. to have ambulate with 0-1/10 pain in L knee and hip. Goal Progress: Not Progressing Goal 5:: Pt. to compelte all ADLs with 0-1/10 pain in L knee and L hip. Goal Progress: Not Progressing - Plan Plan: Pt. will be DC at this point in time. She is to continue with ortho for her knee and follow up with spinal surgeon fro consult. Pt. consents - D/C Information Discharge Comments: Pt. was treated with modalities, stretching and glute med/core strengthening for her hip and lumbar stability. Pt. made progress with her exercises, but continues to have increased knee and bilateral hip pain. Pt. has a history of 2 lumbar spine surgeries and plans to follow up with spinal surgeon for opinion. Pt. is also to have TKA next month. Pt. was given exercises to increase muscle strength and ROM. Pt. will be DC from PT at this point intime. If there are questions or concerns regarding this patient's physical therapy, please feel free to call me at [phone]. Thank you for the referral of this patient. Sincerely, Rehan Kim DPT
== END 2018-11-30 19:00 | disposition home or self-care (01) ==
LOC: PT 10:30
PROVIDERS: Family Provider Internal Medicine; PCP Internal Medicine; Referring Provider Orthopaedic Surgery; Visit Provider Orthopaedic Surgery
DX: M70.62 Trochanteric bursitis, left hip (principal); M25.562 Pain in left knee
CPT/HCPCS: 97012; 97035; 97110; 97161

== ENCOUNTER → 2018-12-08 | Outpatient (CLI) | payer MEDICARE, SELFPAY ==
[2018-10-19 10:14] VITALS: BMI 42.0
[2018-12-08 12:31] LABS: Absolute Lymphocyte Count 1.54 X10^3/ul (0.83-4.51); Absolute Neutrophil Count 5.3 X10^3/uL (2.0-7.7); Basophil# 0.01 X10^3/uL; Basophil% 0.1 % (0-1); Eosinophil# 0.18 X10^3/uL; Eosinophils% 2.3 % (0-5); Hematocrit 43.8 % (37-47); Hemoglobin 13.8 g/dl (12.0-15.0); Lymphocyte # 1.54 X10^3/ul (4.0); Lymphocyte % 20.1 % (19-41); Mean Corp Hgb Conc 31.5 g/gl (32-36); Mean Corpuscular Hgb 28.6 pg (27.0-32.0); Mean Corpuscular Volume 90.7 fL (81-99); Mean Platelet Vol. 9.3 fl (6.2-12.0); Monocyte# 0.68 X10^3/uL; Monocyte% 8.9 % (0-10); Neutrophil # 5.25 X10^3/uL (2.7-7.7); Neutrophil % 68.3 % (47-70); Platelet Count 251 K/mm3 (150-450); RBC Distribution Width CV 14.5 % (11.6-14.6); RBC Distribution Width SD 47.2 fl (35.1-43.9); Red Blood Count 4.83 M/mm3 (4.2-5.4); White Blood Count 7.7 K/mm3 (4.4-11.0)
[2018-12-08 12:34] LABS: POSITIVE COUNT NO; POSITIVE DIFFERENTIAL NO; POSITIVE MORPHOLOGY NO
== END | disposition home or self-care (01) ==
LOC: BIMLAB 08:49
PROVIDERS: Family Provider Internal Medicine; PCP Internal Medicine; Visit Provider Internal Medicine
DX: D50.9 Iron deficiency anemia, unspecified (principal)
CPT/HCPCS: 36415; 85025

== ENCOUNTER → 2018-12-22 15:47 | Outpatient (CLI) | payer MEDICARE, MEDICAID, SELFPAY ==
[2018-12-08 09:50] VITALS: BMI 42.0
[2018-12-22 17:13] LABS: Vitamin B12 288 pg/mL (211-911)
[2018-12-22 17:17] LABS: Thyroid Stim Hormone (TSH) 1.07 uIU/mL (0.358-3.74)
== END ==
PROVIDERS: Family Provider Internal Medicine; PCP Internal Medicine; Referring Provider Psychiatry & Neurology Neurology; Visit Provider Psychiatry & Neurology Neurology
DX: G45.4 Transient global amnesia (principal)
CPT/HCPCS: 36415; 82607; 82746; 84443

== ENCOUNTER → 2018-12-29 | Outpatient (CLI) | payer MEDICARE, MEDICAID, SELFPAY ==
[2018-12-08 09:50] VITALS: BMI 42.0
--- NOTE | 2018-12-29 06:35 | MRI_ITS ---
STUDY: MRI BRAIN WITHOUT CONTRAST REASON FOR EXAM: Female, 73 years old. Confusion, memory loss TECHNIQUE: Standardized multiplanar fat and water weighted pulse sequences were obtained. COMPARISON: None. FINDINGS: There is mild cerebral atrophy with widening of the extra-axial spaces and ventricular dilatation. There are a limited number of small white matter hyperintensities, distributed throughout the deep white matter tracts of the cerebral hemispheres, consistent with mild chronic white matter ischemic changes. There is no evidence for recent intracranial ischemia or other cause of cytotoxic edema on diffusion weighted imaging (DWI). Normal T2* images of the brain without demonstrated susceptibility artifact. There is no demonstrated hemosiderin stain. Normal bilateral basal ganglia. Normal thalami. There is no extra-axial fluid accumulation. Normal flow voids within the major intracranial circulation suggesting patency by spin echo criteria. Normal sella turcica, pituitary gland, infundibular stalk, optic chiasm and hypothalamus. Normal tectal plate and pineal gland. Normal midbrain, arabella and medulla. Normal cerebellum. Normal basal cisterns. Normal bilateral temporal bones. Normal bilateral internal auditory canals. There are bilateral ocular lens implants with otherwise normal intraorbital contents. Normal visualized paranasal sinuses. Normal calvarium and skull base. Normal visualized soft tissue structures. Normal visualized upper cervical spine. MRI/Brain without Contrast IMPRESSION: Involutional changes of the brain, as described above. Electronically Signed: Tee Lees MD at 8:09 EDT Tel , Service support ,
== END | disposition home or self-care (01) ==
LOC: MRI 06:19
PROVIDERS: Family Provider Internal Medicine; PCP Internal Medicine; Referring Provider Psychiatry & Neurology Neurology; Visit Provider Psychiatry & Neurology Neurology
DX: R41.0 Disorientation, unspecified (principal)
CPT/HCPCS: 70551

== ENCOUNTER 2019-01-02 05:13 | Observation (INO) | payer MEDICARE, MEDICAID, SELFPAY ==
[2018-12-08 09:50] VITALS: BMI 42.0
[2018-12-28 09:54] VITALS: BP 137/88; PULSE 61; RESP 17; TEMP 36.3; O2SAT 97; BMI 37.4
[2018-12-28 11:02] LABS: Hematocrit 42.6 % (37-47); Hemoglobin 13.5 g/dl (12.0-15.0); Mean Corp Hgb Conc 31.7 g/gl (32-36); Mean Corpuscular Hgb 28.4 pg (27.0-32.0); Mean Corpuscular Volume 89.5 fL (81-99); Platelet Count 244 K/mm3 (150-450); RBC Distribution Width CV 14.3 % (11.6-14.6); RBC Distribution Width SD 46.9 fl (35.1-43.9); Red Blood Count 4.76 M/mm3 (4.2-5.4); White Blood Count 11.1 K/mm3 (4.4-11.0)
[2018-12-28 11:04] LABS: Scan Indicated on CBC? Y/N NO
[2018-12-28 11:13] LABS: International Normalized Ratio 1.1
[2018-12-28 11:14] LABS: Partial Thromboplast Time 33.8 Seconds (24.1-36.2)
[2018-12-28 11:17] LABS: AST(SGOT) 35 U/L (15-37); Alanine Aminotransfer ALT/SGPT 46 U/L (13-56); Albumin, Serum 3.7 g/dL (3.2-5.0); Alkaline Phosphatase 60 U/L (45-117); Anion Gap 6 (5-15); BUN 15 mg/dL (7-18); Bilirubin, Direct 0.15 mg/dL (0.00-0.30); Calcium,Total 8.9 mg/dL (8.5-10.1); Chloride 105 mmol/L (98-107); Creatinine, Serum 0.79 mg/dL (0.55-1.02); EST Glomerular Filtration Rate 76 mL/min (>60); Est Glom Filt Rate - Afr Amer 92 mL/min (>60); Estimated Creatinine Clearance 43.27 ml/min; Globulin 3.5 g/dL (2.2-4.2); Glucose 101 mg/dL (74-106); Potassium 3.4 mmol/L (3.5-5.1); Protein, Total 7.2 g/dL (6.4-8.2); Sodium Level 140 mmol/L (136-145)
--- NOTE | 2019-01-01 16:11 | HP.PCM_ITS ---
History and Physical Date of Admission: 01/02/19 MR#: [id number] Acct: [id number] Name: VANESSA KLINE Rep #: [id number] : 1945 Provider: Alvin Steele DO Age/Sex: 73/F Location: [facility] [place] Status: Signed Intake Intake Visit Reasons: left knee Is patient in pain?: Yes Pain scale (1-10): 2 Allergies adhesive tape Allergy (Severe, Verified 09/30/18 11:15) Area Sore cefpodoxime [From Vantin] Allergy (Unknown, Verified 09/30/18 11:15) Unknown codeine Allergy (Unknown, Verified 09/30/18 11:15) Unknown metronidazole [From Flagyl] Allergy (Unknown, Verified 09/30/18 11:15) Unknown sulfamethoxazole [From Bactrim] Allergy (Unknown, Verified 09/30/18 11:15) Unknown trimethoprim [From Bactrim] Allergy (Unknown, Verified 09/30/18 11:15) Unknown Sulfa (Sulfonamide Antibiotics) Allergy (Verified 09/30/18 11:15) Unknown Medications cholecalciferol (vitamin D3) 2,000 unit capsule 2,000 unit PO DAILY 08/11/18 [History Confirmed 09/30/18] hydrochlorothiazide 25 mg tablet 25 mg PO DAILY #90 tab 08/11/18 [Rx Confirmed 09/30/18] sertraline 100 mg tablet 150 mg PO DAILY #120 tab 08/11/18 [Rx Confirmed 09/30/18] hydrocodone 5 mg-acetaminophen 325 mg tablet 1 tab PO BID tab 09/08/18 [History Confirmed 09/30/18] mirabegron ER 25 mg tablet,extended release 24 hr 25 mg PO BID #180 tab 09/08/18 [Rx Confirmed 09/30/18] sumatriptan 6 mg/0.5 mL subcutaneous pen injector 6 mg SC Q1-4H PRN #1 ml 09/08/18 [Rx Confirmed 09/30/18] rosuvastatin 10 mg tablet 10 mg PO DAILY #90 tab 09/26/18 [Rx Confirmed 09/30/18] trazodone 50 mg tablet 50 - 100 mg PO QHS #180 tab 09/26/18 [Rx Confirmed 09/30/18] Handicap Placard #1 ea 10/09/18 [Rx] metoprolol succinate ER 50 mg capsule sprinkle, ext. release 24 hr 50 mg PO BID #60 ea 11/17/18 [Rx] omeprazole 40 mg capsule,delayed release 40 mg PO DAILY #90 cap 11/17/18 [Rx] acetaminophen 325 mg capsule 325 mg PO Q6H PRN 12/08/18 [History Confirmed 12/08/18] PFSH Medical History Localized swelling of chest wall (Acute) Confusion (Chronic) Dark stools (Acute) Left-sided chest wall pain (Chronic) Vitamin D deficiency (Chronic) Vision problems (Chronic) Pneumonia (Chronic) Osteoarthritis (Chronic) Neuropathy (Chronic) IBS (irritable bowel syndrome) (Acute) High cholesterol (Chronic) Hypertension (Chronic) Chronic headaches (Chronic) GERD (gastroesophageal reflux disease) (Chronic) H/O emotional problems (Chronic) Chronic bronchitis (Chronic) Back problem (Chronic) Anemia (Chronic) Abdominal pain (Acute) Surgical History History of (Acute) Hx of breast reduction, elective (Acute) History of back surgery (Acute) History of hernia repair (Acute) History of right knee joint replacement (Acute) History of cholecystectomy (Acute) History of gastric surgery (Acute) History of hysterectomy (Acute) Family History Sister Anesthesia complication Breast cancer Hypertension Mother Arthritis Pancreatic cancer Depression Father Colon cancer Hypertension CVA (cerebral vascular accident) Sister Cancer rectal/kidney/medullary Thyroid cancer Social History Smoking Status: Former smoker alcohol intake: never substance use type: does not use what type of physical activity do you participate in: none HPI left knee: Chief Complaint: Left knee Surgical H&P: Yes Details: Parts of this documentation were recorded by a scribe, this documentation accurately reflects the service provided and the decisions made by , Alvin Steele DO 12/25/18 0757. VANESSA KLINE is a 73 year old F here today for left knee pain, she is prepared to have a left total knee arthroscopy. She is ambulating with a cane today. Denies numbness, tingling or other associated symptoms. Denies any changes. She is using pain medications per Dr Reno. Ortho Exam Right Knee Patella Translation: 1 Left Knee Skin/Wound: No ecchymosis, No erythema, Yes swelling Homans Sign: No Knee ROM: No ROM-Extension -20 to 0, No ROM-Flexion 0-140 (120) Examination: Yes med jt line tenderness, Yes Crepitus Stability: NML: Anterior Drawer, NML: Valgus 30, NML: Varus 30 Patella Translation: 1 Apprehension with Lateral Translation: No Patella Grind: Yes KNEE: Supplemental Info 11/29/2018 x-ray left knee: Moderate to severe joint space narrowing medial and lateral moderate bone spurs throughout knee subchondral sclerosis 09/30/2018 x-ray lumbar spine multilevel degenerative disc disease most severe at L5-S1 and L2-3 08/28/2018 x-ray AP pelvis and bilateral hip: No significant arthritis or bony pathology bilateral hips Assessment & Plan Problems 1. Primary osteoarthritis of left knee M17.12 Plan Instructed to d/c the aspirin 5 days prior to surgery. We will send a clearance to Dr Hughes. Discussed her post op medications she will likely need more than 1 week of a higher narcotic dose and I will be happy to supply this for her for an appropriate period Postoperative. will get joint camp set up and will have oncology social worker post op at home for physical therapy 2 weeks postoperatively. Reviewed the need to keep her pets away from her incision. Risks, benefits and alternatives of surgery reviewed including but not limited to bleeding, infection, nerve, artery and/or tissue damage, fracture, VTE, mechanical feel of the knee, continued pain, stiffness and expected post- operative course. Coding Level of Care Code Off vis,est,level 3 Diagnoses Primary osteoarthritis of left knee M17.12 ??Osteoarthritis type: primary 12/25/18 1219 <Electronically signed by Alvin Steele DO> Date Alvin Steele DO I have re-examined the patient. There are no clinical changes since date of exam
[2019-01-02] VITALS (11 sets, daily range): BP systolic 90–141; BP diastolic 49–79; PULSE 56–82; RESP 16–20; TEMP 36.2–37.2; O2SAT 91–99; BMI 37.4
[2019-01-02] MEDS: oxyCODONE HCl Cr 10 MG Tablet PO (06:10)
[2019-01-02] MEDS: Pregabalin 75 MG Capsule PO (06:10)
[2019-01-02] MEDS: Acetaminophen 500 MG Tablet PO (06:11)
[2019-01-02] MEDS: Meloxicam 7.5 MG Tablet PO (06:11)
[2019-01-02] MEDS: Vancomycin IV 1,000 MG/200 ML BAG 200 MG IV (06:30)
[2019-01-02] MEDS: Morphine 4 MG/ML Syringe (09:20)
[2019-01-02] MEDS: Bupivacaine Mpf 0.5% 30 ML VIAL (09:20)
[2019-01-02] MEDS: Epinephrine (1 mg/ml) 1 MG/ML VIAL (09:20)
--- NOTE | 2019-01-02 09:52 | RAD_ITS ---
STUDY: X-RAY - LEFT KNEE REASON FOR EXAM: Female, 73 years old. Total knee replacement. TECHNIQUE: 2 view(s) of the knee. COMPARISON: Comparison is made with prior examination dated November 29, 2018. FINDINGS: The patient is status post total knee replacement. There is good alignment. Postoperative soft tissue changes. RAD/Knee 1 or 2 Views IMPRESSION: Status post total knee replacement. There is good alignment. Postoperative soft tissue changes. Electronically Signed: Marco A Do, at 10:55 EDT , Service support ,
--- NOTE | 2019-01-02 09:58 | PCM.OPRPT ---
Report of Operation Date of Procedure: 01/02/19 Description of Surgical Findings:: Preoperative diagnosis: [Left] knee DJD Postoperative diagnosis: [Same] Procedure: [Left] total knee arthroplasty Implant: [place] triathlon cemented [left] femoral component size[ 4], cemented tibial baseplate size [4], cemented [asymmetric] patella size [32], polyethylene X3 size [9] [CS] Anesthesia: General with adductor canal block Tourniquet time: 73 minutes at 300 mmHg Complications: None Condition: Stable to PACU Estimated blood loss: [25] cc Indication for procedure: This is a old female with long standing degenerative joint disease of the knee who has failed conservative treatment and wished to proceed with elective total knee arthroplasty. Risk benefits and alternatives were reviewed including; risk of bleeding, infection, nerve artery and tissue damage, continued pain, postoperative stiffness, venous thromboembolism, need for postoperative rehabilitation, mechanical feel to the knee, and expected postoperative course. Procedure: The patient was met in the preoperative holding area. The operative extremity was identified by both patient and physician and was marked. Patient was met by anesthesia. An adductor canal block was placed by anesthesia [postoperatively] the patient was brought back to the operating room on a wheeled cart and transferred to the operating table in the supine position. Anesthesia was started. A well-padded tourniquet was placed on the operative extremity. The patient was prepped and draped in the usual sterile fashion. A timeout was called to ensure the proper patient procedure and extremity were being contemplated. An Esmarch was used to exsanguinate the extremity. The tourniquet was inflated. A 10 blade scalpel was used to make a midline incision down through the skin and subcutaneous tissue. Skin retractors placed. Bovie was used to perform meticulous hemostasis. full-thickness flaps were elevated medial and lateral along the joint capsule. A deep blade scalpel was used to perform a medial parapatellar arthrotomy. The knee was brought to full extension. A Bovie was used to release the soft tissues off the most proximal aspect of the medial tibial plateau a three-quarter inch curved osteotome was also used for this process. The infrapatellar fat pad was excised. [The fat pad was excised partially anterior lateral portion the anterior medial was elevated from the femur]. the patella was everted. The knee was brought into flexion. An intramedullary drill was used followed by flexible intramedullary guide michael. The distal femoral cutting block was placed and set to remove 10 mm of bone and [5] degrees of valgus. The block was secured with pins and an oscillating saw was used to complete the distal femoral cut. During this, and all bony cuts retractors were used to protect the collateral ligaments. At this point a femoral sizer was used to measure the AP dimension of the femur. The sizer block was pinned in 3 degrees of external rotation. The sizing block was removed and the appropriately sized 4-in-1 cutting block was placed over the previously made pinholes. It was checked with an josé miguel wing and the block was secured with pins. An oscillating saw was used to complete the anterior cut followed by the posterior cut followed by the posterior chamfer cut followed by the anterior chamfer cut. The block was removed as well as the fragments. A ronguer was used to remove excess osteophytes. The medial and lateral meniscus were excised as well as the ACL. At this point a PCL retractor was placed and an intramedullary drill was passed down the tibial canal followed by a solid intramedullary guide michael. The tibial cutting block was attached and set to remove 9 mm of bone from the high side. This was checked with an external alignment drop michael for slope and tilt. It was pinned into place. An oscillating saw was used to complete the tibial plateau cut and the block was removed. A large osteotome was used to elevate the fragment and a Destinee and a Bovie were used to free the fragment from the surrounding soft tissue. A rongeur was once again used to remove osteophytes a lamina fixture builder was used to evaluate the posterior capsular structures. A three-quarter inch curved osteotome was used to remove posterior osteophytes. A spacer block was inserted in both extension and flexion to ensure adequate spacing. Trials were inserted full extension and flexion were achieved in varus and valgus stability throughout range of motion were seen, balancing techniques were performed. At this point the attention was turned towards the patella. A caliper was used to ensure sufficient bone stock to remove 10 mm of bone. A reamer was used to perform this task. Lug holes were made for the appropriate-sized patella. The patella trial was inserted and there was good patellar tracking with knee range of motion. The tibial baseplate was allowed to float into rotation and was marked on the tibial plateau with a Bovie. Lug holes were made in the femur and trials were removed. The tibial baseplate was then sized and its preparation was completed with a fin punch. The knee was thoroughly irrigated. A posterior capsular injection was performed [with our standard cocktail]. The knee was brought into flexion and irrigated again. The tibial baseplate was cemented. Excess cement was removed with curettes. The polyethylene component was inserted. The femoral component was cemented. The knee was brought into full extension and placed on a bump. The patellar component was cemented. At this point a Betadine rinse was placed and thoroughly irrigated after a few minutes. This was followed by an Iricept rinse which was allowed to sit for 1 minute and then thoroughly irrigated.At this point all gloves were changed. The knee was thoroughly irrigated the joint capsule was closed with [#1 Ethibond]. Tourniquet was let down followed by 0 Vicryl and 2-0 Vicryl in the subcutaneous tissues. followed by yani in the skin. Dressing was applied in the form of Xeroform 4 x 4 ABD web roll and an Jeremy wrap from the foot to the groin. The patient tolerated the procedure well, all counts were correct patient was brought back to the PACU in stable condition.
[2019-01-02] MEDS: oxyCODONE 5 MG Tablet PO ×3 (12:02→22:32)
[2019-01-02] MEDS: Ondansetron 4 MG/2 ML Vial IV (13:05)
[2019-01-02] MEDS: Acetaminophen 500 MG Tablet 1000 MG PO ×2 (13:11→22:33)
[2019-01-02] MEDS: Senna/Docusate Sodium 1 Tablet 2 TABLET PO (22:33)
[2019-01-02] MEDS: Atorvastatin Calcium 20 MG Tablet PO (22:33)
[2019-01-02] MEDS: Mirabegron 25 MG TAB.ER.24H PO (22:34)
[2019-01-02] MEDS: Metoprolol(XL)Succ 50 MG Tablet PO (22:34)
[2019-01-02] MEDS: traZODone 50 MG Tablet PO (22:34)
[2019-01-03] VITALS (8 sets, daily range): BP systolic 104–140; BP diastolic 48–68; PULSE 60–80; RESP 16–18; TEMP 36.6–37.1; O2SAT 94–98
--- NOTE | 2019-01-03 00:10 | NURSING ---
Oxygen saturations were dropping into the mid 90's. O2 placed at 2L via n/c and sats quickly came up to 99%. Silvana GOTTI aware.
[2019-01-03 06:00] LABS: Hematocrit 36.8 % (37-47); Hemoglobin 11.6 g/dl (12.0-15.0); Mean Corp Hgb Conc 31.5 g/gl (32-36); Mean Corpuscular Hgb 28.6 pg (27.0-32.0); Mean Corpuscular Volume 90.6 fL (81-99); Platelet Count 173 K/mm3 (150-450); RBC Distribution Width CV 14.6 % (11.6-14.6); RBC Distribution Width SD 48.1 fl (35.1-43.9); Red Blood Count 4.06 M/mm3 (4.2-5.4); White Blood Count 10.6 K/mm3 (4.4-11.0)
[2019-01-03 06:04] LABS: Scan Indicated on CBC? Y/N NO
[2019-01-03 06:08] LABS: Anion Gap 7 (5-15); BUN 7 mg/dL (7-18); BUN/Creat Ratio 10.9 RATIO (10-20); Calcium,Total 8.1 mg/dL (8.5-10.1); Chloride 103 mmol/L (98-107); Creatinine, Serum 0.64 mg/dL (0.55-1.02); EST Glomerular Filtration Rate 96 mL/min (>60); Est Glom Filt Rate - Afr Amer 116 mL/min (>60); Estimated Creatinine Clearance 43.27 ml/min; Glucose 109 mg/dL (74-106); Potassium 3.4 mmol/L (3.5-5.1); Sodium Level 143 mmol/L (136-145)
[2019-01-03] MEDS: APIXABAN 2.5 MG TABLET PO ×2 (06:08→21:00)
[2019-01-03] MEDS: Acetaminophen 500 MG Tablet 1000 MG PO ×3 (06:08→21:01)
--- NOTE | 2019-01-03 07:29 | PCM.PN.ORT ---
Subjective: Doing okay pain controlled no chest pain nausea vomiting shortness of breath. - Physical Exam General: Cooperative, No apparent distress Extremities: - - Dressing on clean and dry neurovascularly intact compartments soft Vital Signs Temp Pulse Resp BP Pulse Ox 98.8 F 60 16 119/65 97 01/03/19 02:40 01/03/19 02:40 01/03/19 02:40 01/03/19 02:40 01/03/19 02:40 Oxygen Flow Rate (L/min) 2 Oxygen Delivery Method Nasal Cannula Weight: 218 lb 4.122 oz Body Mass Index (BMI) 37.4 Intake and Output for Last 24 Hours 01/01/19 01/02/19 01/03/19 23:59 23:59 23:59 Intake Total 1850 / 1850 720 / 720 Output Total 300 / 300 1600 / 1600 Balance 1550 / 1550 -880 / -880 Laboratory Tests Past 24 Hrs 01/03/19 01/03/19 05:40 05:40 WBC 10.6 RBC 4.06 L Hgb 11.6 L Hct 36.8 L MCV 90.6 MCH 28.6 MCHC 31.5 L RDW 14.6 RDW Differential 48.1 H Plt Count 173 MPV 9.0 Sodium 143 Potassium 3.4 L Chloride 103 Carbon Dioxide 33.0 H Anion Gap 7 BUN 7 Creatinine 0.64 Estim Creat Clear Calc 43.27 Est GFR (MDRD) Af Amer 116 Est GFR (MDRD) Non-Af 96 BUN/Creatinine Ratio 10.9 Glucose 109 H Calcium 8.1 L Medical Necessity - Tobacco Use Smoking Status: Former smoker Tobacco Use: Cigarettes Assessment/Plan All Active Problems (Last Reviewed 12/08/18 @ 09:11 by iPng Rutledge) Localized swelling of chest wall (Acute) Dark stools (Acute) History of (Acute) Hx of breast reduction, elective (Acute) History of back surgery (Acute) History of hernia repair (Acute) History of right knee joint replacement (Acute) IBS (irritable bowel syndrome) (Acute) Postoperative day #1 total knee arthroplasty DVT prophylaxis SCDs FABI hose Eliquis 2.5 mg twice daily for 2 weeks post hospital discharge Physical therapy occupational therapy weightbearing as tolerated Social service consult for discharge planning rehab Patient has no help at home with many stairs and family does not feel safe for discharge home, also has been suffering with confusion preoperatively
[2019-01-03] MEDS: Sertraline 100 MG Tablet 150 MG PO (07:30)
[2019-01-03] MEDS: Senna/Docusate Sodium 1 Tablet 2 TABLET PO ×2 (07:31→21:00)
[2019-01-03] MEDS: Pantoprazole Sodium 40 MG Tablet PO (07:31)
[2019-01-03] MEDS: hydroCHLOROthiazide 25 MG Tablet PO (07:31)
[2019-01-03] MEDS: Mirabegron 25 MG TAB.ER.24H PO ×2 (07:31→21:00)
[2019-01-03] MEDS: Metoprolol(XL)Succ 50 MG Tablet PO ×2 (07:32→21:00)
[2019-01-03] MEDS: oxyCODONE 5 MG Tablet PO ×4 (07:33→21:00)
--- NOTE | 2019-01-03 10:45 | CASEMGMT ---
ANA MARÍA VICTORIA Face to Face with patient for initial transition planning/care coordination assessment. RN ESME introduced self and role at [facility]. Patient sitting in chair, alert and oriented, sisters at bedside. Patient willing to participate in assessment and is able to answer all questions appropriately. Care providers, pharmacy, and demographics verified. Patient wishes to discharge to TCU for additional rehab. Patient states she has no further needs or concerns at this time. GLENN Kathleen updated regarding request for TCU. PCP: Ellen Specialists: Bean, ortho; Cebul; Basali, pain; Bavis Preferred Pharmacy: [facility] retail Insurance: [employer] Prescription Benefit: yes Living Will/HPOA: yes sister Samanta Wylie LNOK: sisters Living Arrangements: Patient lives alone in first floor apartment with her cat. Patient mostly independent at home. Per sister patient has been forgetting to take her medications Transportation: Family or [facility] van DME/HHC: Patient states she has a shower chair, raised toilet, and rollator. Patient would benefit from FWW at discharge. Disposition Plan: TCU pending PreCert Mimi THOMASON, RN, CM
--- NOTE | 2019-01-03 10:59 | CASEMGMT ---
Addendum entered by Mimi Kathleen 01/03/19 15:36: SW updated pt on acceptance to TCU pending pre-cert. Pt states understanding. Original Note: Addendum entered by Mimi Kathleen 01/03/19 13:09: SW received message from [facility] in TCU stating she is able to accept pt and has submitted for pre-cert. Original Note: Social Work Note RN ESME Ash updated this worker that pt is wanting TCU at discharge. SW placed a call to [facility] in TCU and provided referral. SW informed [facility] that if she is able to accept pt to submit for pre-cert as physician is wanting discharge tomorrow. SW placed transfer to extended care facility form on pt's chart for physician to complete. Plan: TCU pending acceptance and pre-cert Mimi Kathleen DIRECTOR AND PROFESSOR, [employer]OBBIN [employer] W[employer]ER
[2019-01-03] MEDS: Ondansetron 4 MG/2 ML Vial IV (13:43)
[2019-01-03] MEDS: 0.9% NaCl Peripheral Flush Adult/Peds IV ×2 (13:44→18:59)
[2019-01-03] MEDS: HYDROmorphone 0.5 MG/0.5 ML SYRINGE IV (19:00)
[2019-01-03] MEDS: traZODone 50 MG Tablet PO (21:00)
[2019-01-03] MEDS: Atorvastatin Calcium 20 MG Tablet PO (21:00)
[2019-01-04 02:18] VITALS: BP 136/73; PULSE 64; RESP 18; TEMP 36.9; O2SAT 97
[2019-01-04] MEDS: Ondansetron 4 MG/2 ML Vial IV (05:34)
[2019-01-04] MEDS: oxyCODONE 5 MG Tablet PO ×2 (05:36→13:10)
[2019-01-04] MEDS: Acetaminophen 500 MG Tablet 1000 MG PO ×2 (05:37→13:10)
[2019-01-04 05:56] LABS: Hematocrit 36.9 % (37-47); Hemoglobin 11.6 g/dl (12.0-15.0); Mean Corp Hgb Conc 31.4 g/gl (32-36); Mean Corpuscular Hgb 28.8 pg (27.0-32.0); Mean Corpuscular Volume 91.6 fL (81-99); Mean Platelet Vol. 9.4 fl (6.2-12.0); Platelet Count 198 K/mm3 (150-450); RBC Distribution Width CV 14.7 % (11.6-14.6); Red Blood Count 4.03 M/mm3 (4.2-5.4); White Blood Count 11.7 K/mm3 (4.4-11.0)
[2019-01-04 06:08] LABS: Scan Indicated on CBC? Y/N NO
--- NOTE | 2019-01-04 08:16 | PCM.DC.ORTHO ---
Discharge Diet: No Restrictions Additional Instructions: Ice and elevate next week while not ambulating. Encourage ambulation weightbearing as tolerated. Encourage FULL knee extension and flexion 1 time EVERY time you get up and down and MULTIPLE times per day. Begin showering postop day #3. Remove the dressing prior to shower gently wash with warm water and antibacterial soap then pat dry place ABD pad and FABI hose over top. This is to be done daily. If not showering daily must clean incision and change dressing daily. Do not allow animals near incision keep clean. Follow anticoagulation recommendations. Call Dr. Steele with any concerns. Allergies/Adverse Reactions: Allergies adhesive tape Allergy (Severe, Verified 01/02/19 05:47) Area Sore cefpodoxime [From Vantin] Allergy (Unknown, Verified 01/02/19 05:47) Unknown codeine Allergy (Unknown, Verified 01/02/19 05:47) Unknown HALLUCINATIONS metronidazole [From Flagyl] Allergy (Unknown, Verified 01/02/19 05:47) Unknown sulfamethoxazole [From Bactrim] Allergy (Unknown, Verified 01/02/19 05:47) Unknown trimethoprim [From Bactrim] Allergy (Unknown, Verified 01/02/19 05:47) Unknown Sulfa (Sulfonamide Antibiotics) Allergy (Verified 01/02/19 05:47) Unknown Medications to take at Discharge cholecalciferol (vitamin D3) 2,000 unit capsule 2,000 unit PO DAILY 08/11/18 sumatriptan 6 mg/0.5 mL subcutaneous pen injector 6 mg SC Q1-4H PRN #1 ml 09/08/18 Handicap Placard #1 ea 10/09/18 acetaminophen 325 mg capsule 325 mg PO Q6H PRN 12/08/18 Aspirin [Aspir 81] 81 mg PO DAILY 12/28/18 Hydrochlorothiazide [Hctz] 25 mg PO DAILY 12/28/18 Metoprolol Succinate 50 mg PO BID 12/28/18 Mirabegron [Myrbetriq] 25 mg PO BID 12/28/18 Omeprazole 40 mg PO DAILY 12/28/18 Rosuvastatin Calcium 10 mg PO QHS 12/28/18 Sertraline HCl 150 mg PO DAILY 12/28/18 Trazodone HCl 50 - 100 mg PO QHS 12/28/18 Apixaban [Eliquis] 2.5 mg PO BID 14 Days #28 tab 01/04/19 Oxycodone [Oxyir] 5 - 10 mg PO Q4H PRN PRN 7 Days #60 tab 01/04/19 The following prescriptions were given: Oxycodone [Oxyir] 5 - 10 mg PO Q4H PRN PRN 7 Days #60 tab PRN Reason: Mod-Severe Pain (4-1010) Apixaban [Eliquis] 2.5 mg PO BID 14 Days #28 tab Primary Care Physician: Yashira Hughes MD [Primary Care Provider] - Test Results: Test results from this visit will be discussed in further detail at your follow-up appointment, if applicable. Please Follow Up With: Alvin Steele DO - 2 week
--- NOTE | 2019-01-04 08:19 | DCINST_ITS ---
Discharge Diet: No Restrictions Additional Instructions: Ice and elevate next week while not ambulating. Encourage ambulation weightbe aring as tolerated. Encourage FULL knee extension and flexion 1 time EVERY time you get up and down and MULTIPLE times per day. Begin showering postop day #3. Remove the dressing prior to shower gently wash with warm water and antibacterial soap then pat dry place ABD pad and FABI hose over top. This is to be done daily. If not showering daily must clean incision and change dressing daily. Do not allow animals near incision keep clean. Follow anticoagulation recommendations. Call Dr. Steeel with any concerns. Allergies/Adverse Reactions: Allergies adhesive tape Allergy (Severe, Verified 01/02/19 05:47) Area Sore cefpodoxime [From Vantin] Allergy (Unknown, Verified 01/02/19 05:47) Unknown codeine Allergy (Unknown, Verified 01/02/19 05:47) Unknown HALLUCINATIONS metronidazole [From Flagyl] Allergy (Unknown, Verified 01/02/19 05:47) Unknown sulfamethoxazole [From Bactrim] Allergy (Unknown, Verified 01/02/19 05:47) Unknown trimethoprim [From Bactrim] Allergy (Unknown, Verified 01/02/19 05:47) Unknown Sulfa (Sulfonamide Antibiotics) Allergy (Verified 01/02/19 05:47) Unknown Medications to take at Discharge cholecalciferol (vitamin D3) 2,000 unit capsule 2,000 unit PO DAILY 08/11/18 sumatriptan 6 mg/0.5 mL subcutaneous pen injector 6 mg SC Q1-4H PRN #1 ml 09/08/18 Handicap Placard #1 ea 10/09/18 acetaminophen 325 mg capsule 325 mg PO Q6H PRN 12/08/18 Aspirin [Aspir 81] 81 mg PO DAILY 12/28/18 Hydrochlorothiazide [Hctz] 25 mg PO DAILY 12/28/18 Metoprolol Succinate 50 mg PO BID 12/28/18 Mirabegron [Myrbetriq] 25 mg PO BID 12/28/18 Omeprazole 40 mg PO DAILY 12/28/18 Rosuvastatin Calcium 10 mg PO QHS 12/28/18 Sertraline HCl 150 mg PO DAILY 12/28/18 Trazodone HCl 50 - 100 mg PO QHS 12/28/18 Apixaban [Eliquis] 2.5 mg PO BID 14 Days #28 tab 01/04/19 Oxycodone [Oxyir] 5 - 10 mg PO Q4H PRN PRN 7 Days #60 tab 01/04/19 The following prescriptions were given: Oxycodone [Oxyir] 5 - 10 mg PO Q4H PRN PRN 7 Days #60 tab PRN Reason: Mod-Severe Pain (4-10) Apixaban [Eliquis] 2.5 mg PO BID 14 Days #28 tab Primary Care Physician: Yashira Hughes MD [Primary Care Provider] - Test Results: Test results from this visit will be discussed in further detail at your follow- up appointment, if applicable. Please Follow Up With: Alvin Steele DO - 2 week
--- NOTE | 2019-01-04 08:19 | PCM.DC.SUM ---
Discharge Date and Diagnosis Date of Admission: 01/02/19 Date of Discharge: 01/04/19 - Secondary Discharge Diagnosis Chronic Problems (Last Reviewed 12/08/18 @ 09:11 by Ping Rutledge) Iron deficiency anemia (Chronic) Confusion (Chronic) Left-sided chest wall pain (Chronic) Vitamin D deficiency (Chronic) Vision problems (Chronic) Pneumonia (Chronic) Osteoarthritis (Chronic) Neuropathy (Chronic) High cholesterol (Chronic) Hypertension (Chronic) Chronic headaches (Chronic) GERD (gastroesophageal reflux disease) (Chronic) H/O emotional problems (Chronic) Chronic bronchitis (Chronic) Back problem (Chronic) Anemia (Chronic) Hospital Course and Treatment Operations: - - tka Summary of Care Provided: The patient is a 73 year old F who has long history of degenerative joint disease to the knee who has failed conservative treatment and wished to undergo elective total knee arthroplasty. Patient underwent the aformentioned procedure on the admission date without any intraoperative complications. She did receive pre-and postoperative antibiotics which were discontinued within 23 hours postoperatively. She did receive spinal anesthesia as well as an adductor canal block postoperatively her pain was controlled with IV and transition to p.o. pain medication she will be discharged home with oxycodone and will continue Tylenol as well. She had minimal intraoperative blood loss and tranexamic acid was administered there was no need for postoperative blood transfusion her vital signs remained stable. She was started on both mechanical and chemical DVT per prophylaxis postoperatively in the form of SCDs FABI hose and Eliquis 2.5 mg twice daily for which she will continue for 2 additional weeks post hospital discharge. Her dressing was changed on postop day #2 without any concerning signs she will begin showering on postop day #3 and will change her dressing daily at this point. She will follow-up in the office in 2 weeks. No intrahospital complications. Subjective: Seen and examined doing well no complaints - Physical Exam General: Alert, Oriented x3, No apparent distress Extremities: - - Incision looks good no signs of infection well approximated. Compartments soft neurovascularly intact Vital Signs Temp Pulse Resp BP Pulse Ox 98.5 F 64 18 136/73 H 97 01/04/19 02:18 01/04/19 02:18 01/04/19 02:18 01/04/19 02:18 01/04/19 02:18 Oxygen Flow Rate (L/min) 2 Oxygen Delivery Method Room Air Weight: 218 lb 4.122 oz Body Mass Index (BMI) 37.4 Intake and Output for Last 24 Hours 01/02/19 01/03/19 01/04/19 23:59 23:59 23:59 Intake Total 1850 / 1850 1720 / 1720 820 / 820 Output Total 300 / 300 3000 / 3000 600 / 600 Balance 1550 / 1550 -1280 / -1280 220 / 220 Laboratory Tests Past 24 Hrs 01/04/19 05:16 WBC 11.7 H RBC 4.03 L Hgb 11.6 L Hct 36.9 L MCV 91.6 MCH 28.8 MCHC 31.4 L RDW 14.7 H RDW Differential 48.0 H Plt Count 198 MPV 9.4 Discharge Diet: No Restrictions Home Medications: Medications to take at Discharge cholecalciferol (vitamin D3) 2,000 unit capsule 2,000 unit PO DAILY 08/11/18 sumatriptan 6 mg/0.5 mL subcutaneous pen injector 6 mg SC Q1-4H PRN #1 ml 09/08/18 Handicap Placard #1 ea 10/09/18 acetaminophen 325 mg capsule 325 mg PO Q6H PRN 12/08/18 Aspirin [Aspir 81] 81 mg PO DAILY 12/28/18 Hydrochlorothiazide [Hctz] 25 mg PO DAILY 12/28/18 Metoprolol Succinate 50 mg PO BID 12/28/18 Mirabegron [Myrbetriq] 25 mg PO BID 12/28/18 Omeprazole 40 mg PO DAILY 12/28/18 Rosuvastatin Calcium 10 mg PO QHS 12/28/18 Sertraline HCl 150 mg PO DAILY 12/28/18 Trazodone HCl 50 - 100 mg PO QHS 12/28/18 Apixaban [Eliquis] 2.5 mg PO BID 14 Days #28 tab 01/04/19 Oxycodone [Oxyir] 5 - 10 mg PO Q4H PRN PRN 7 Days #60 tab 01/04/19 Following Prescrptions Were Given to Patient: Oxycodone [Oxyir] 5 - 10 mg PO Q4H PRN PRN 7 Days #60 tab PRN Reason: Mod-Severe Pain (4-10/10) Apixaban [Eliquis] 2.5 mg PO BID 14 Days #28 tab Primary Care Physician: Yashira Hughes MD [Primary Care Provider] - Please Follow Up With: Alvin Steele DO - 2 week Additional Instructions: Ice and elevate next week while not ambulating. Encourage ambulation weightbearing as tolerated. Encourage FULL knee extension and flexion 1 time EVERY time you get up and down and MULTIPLE times per day. Begin showering postop day #3. Remove the dressing prior to shower gently wash with warm water and antibacterial soap then pat dry place ABD pad and FABI hose over top. This is to be done daily. If not showering daily must clean incision and change dressing daily. Do not allow animals near incision keep clean. Follow anticoagulation recommendations. Call Dr. Steele with any concerns. Medical Necessity - Tobacco Use Smoking Status: Former smoker Tobacco Use: Cigarettes Meaningful Use Info Meaningful Use Diagnoses (Choose all that apply): None applicable
--- NOTE | 2019-01-04 08:22 | PCM.TXEXTCAR ---
- Diet 01/02/19 14:43 Diet: Regular Diet Is pt able to select menu?: Yes - Wound(s) LLE Wound Type: Surgical Incision - Therapies Weight Bearing: Weight bearing as tolerated - Allergies/Procedures Done in Hospital Allergies/Adverse Reactions: Allergies adhesive tape Allergy (Severe, Verified 01/02/19 05:47) Area Sore cefpodoxime [From Vantin] Allergy (Unknown, Verified 01/02/19 05:47) Unknown codeine Allergy (Unknown, Verified 01/02/19 05:47) Unknown HALLUCINATIONS metronidazole [From Flagyl] Allergy (Unknown, Verified 01/02/19 05:47) Unknown sulfamethoxazole [From Bactrim] Allergy (Unknown, Verified 01/02/19 05:47) Unknown trimethoprim [From Bactrim] Allergy (Unknown, Verified 01/02/19 05:47) Unknown Sulfa (Sulfonamide Antibiotics) Allergy (Verified 01/02/19 05:47) Unknown - Type of Care/Length of Stay Estimated LOS: Convalescent Care Less Than 30 days Type of Care Needed: Skilled Rehab Potential: Good Prognosis: Good - Additional Orders/Day of Discharge Additional Orders: Ice and elevate next week while not ambulating. Encourage ambulation weightbearing as tolerated. Encourage FULL knee extension and flexion 1 time EVERY time you get up and down and MULTIPLE times per day. Begin showering postop day #3. Remove the dressing prior to shower gently wash with warm water and antibacterial soap then pat dry place ABD pad and FABI hose over top. This is to be done daily. If not showering daily must clean incision and change dressing daily. Do not allow animals near incision keep clean. Follow anticoagulation recommendations. Call Dr. Steele with any concerns. Day of Discharge: 01/04/19 - Follow Up Care Primary Care Physician: Yashira Hughes MD [Primary Care Provider] - Please Follow Up With: Alvin Steele DO - 2 week
[2019-01-04 08:30] VITALS: BP 117/62; PULSE 66; RESP 16; TEMP 36.9; O2SAT 96
[2019-01-04] MEDS: hydroCHLOROthiazide 25 MG Tablet PO (09:35)
[2019-01-04] MEDS: APIXABAN 2.5 MG TABLET PO (09:35)
[2019-01-04] MEDS: Mirabegron 25 MG TAB.ER.24H PO (09:35)
[2019-01-04] MEDS: Pantoprazole Sodium 40 MG Tablet PO (09:36)
[2019-01-04] MEDS: Senna/Docusate Sodium 1 Tablet 2 TABLET PO (09:36)
[2019-01-04] MEDS: Sertraline 100 MG Tablet 150 MG PO (09:36)
[2019-01-04 09:37] VITALS: PULSE 66
[2019-01-04] MEDS: Metoprolol(XL)Succ 50 MG Tablet PO (09:37)
--- NOTE | 2019-01-04 11:23 | CASEMGMT ---
Addendum entered by Mimi Kathleen 01/04/19 13:32: GLENN received call from [facility] in TCU stating pre-cert has been obtained and pt is able to discharge to TCU today. GLENN updated RN. GLENN updated pt on approval to go to TCU. Plan: TCU today ALEXANDRA Chapa Original Note: Social Work Note GLENN placed a call to [facility] in TCU, left message asking about pre-cert. GLENN informed [facility] that pt is ready for discharge once pre-cert is obtained. Plan: TCU pending pre-cert ALEXANDRA Chapa
[2019-01-04 13:46] VITALS: BP 131/62; PULSE 76; RESP 18; TEMP 36.9; O2SAT 95
== END 2019-01-04 14:30 | disposition skilled nursing facility (03) ==
LOC: ACINP 10:22 → MS3 10:22
PROVIDERS: Anesthesiology; Admitting Provider Orthopaedic Surgery; Family Provider Internal Medicine; PCP Internal Medicine; Referring Provider Orthopaedic Surgery; Visit Provider Orthopaedic Surgery
PROC: (CPT 27447; principal; 2019-01-02 07:05)
DX: M17.12 Unilateral primary osteoarthritis, left knee (principal); K21.9 Gastro-esophageal reflux disease without esophagitis; I10 Essential (primary) hypertension; E78.00 Pure hypercholesterolemia, unspecified; J42 Unspecified chronic bronchitis; G62.9 Polyneuropathy, unspecified; E55.9 Vitamin D deficiency, unspecified; K58.9 Irritable bowel syndrome, unspecified; Z79.899 Other long term (current) drug therapy; Z87.891 Personal history of nicotine dependence; F32.9 Major depressive disorder, single episode, unspecified; F41.9 Anxiety disorder, unspecified; D64.9 Anemia, unspecified; M79.89 Other specified soft tissue disorders; R41.0 Disorientation, unspecified
CPT/HCPCS: 27447; 64447; 36415; 73560; 80048; 80076; 85027; 85610; 85730; 87081; 96365; 96366; 96375; 96376; 97110; 97116; 97163; 97166; 97530; 99218; C1776; J7050; J7120; A4216; G0378; G0379; J2405; J3490

== ENCOUNTER 2019-01-04 15:03 | Inpatient (IN) | payer MEDICARE, MEDICAID, SELFPAY ==
[2019-01-02 12:04] VITALS: BMI 37.4
[2019-01-04 15:40] VITALS: BP 145/75; PULSE 67; PULSE 76; RESP 16; RESP 18; TEMP 36.1; O2SAT 94; O2SAT 97
[2019-01-04 15:53] VITALS: BMI 38.2
[2019-01-04 15:56] VITALS: BMI 38.2
--- NOTE | 2019-01-04 16:26 | NURSING ---
Patient admitted to room 2 from [facility] via bed. Oriented to room and call light system explained.
[2019-01-04 18:11] VITALS: BP 145/75; PULSE 76
[2019-01-04] MEDS: Magnesium Citrate 300 ML PO (18:11)
[2019-01-04] MEDS: Metoprolol(XL)Succ 50 MG Tablet PO (18:11)
[2019-01-04] MEDS: APIXABAN 2.5 MG TABLET PO (18:12)
[2019-01-04] MEDS: CLARIFY ORDER NOTE (18:12)
[2019-01-04] MEDS: Mirabegron 25 MG TAB.ER.24H PO (19:02)
--- NOTE | 2019-01-04 20:08 | PCM.HP.STD ---
Problem List (1) Osteoarthritis of left knee Status: Chronic (2) Depression Status: Chronic (3) Overactive bladder Status: Chronic (4) Migraine Status: Chronic (5) Hyperlipidemia Status: Chronic (6) Insomnia Status: Chronic (7) Vitamin D deficiency Status: Chronic (8) Hypertension Status: Chronic (9) GERD (gastroesophageal reflux disease) Status: Chronic History of Present Illness Date of Admission: 01/04/19 Chief Complaint: Here for rehabilitation, strengthening, prior to discharge home alone. The patient is a 73 year old Female with below past medical history hospitalized for left total knee replacement 01/02/[address] Steele. Postoperative course uncomplicated. 01/04/2019 Admit to TCU with debility, here for rehabilitation, strengthening, prior to discharge home alone. Past Medical History Past Medical History (Chronic Problems): Chronic Problems (Last Reviewed 12/08/18 @ 09:11 by Ping Rutledge) Osteoarthritis of left knee (Chronic) Depression (Chronic) Overactive bladder (Chronic) Migraine (Chronic) Hyperlipidemia (Chronic) Insomnia (Chronic) Iron deficiency anemia (Chronic) Confusion (Chronic) Left-sided chest wall pain (Chronic) Vitamin D deficiency (Chronic) Vision problems (Chronic) Pneumonia (Chronic) Osteoarthritis (Chronic) Neuropathy (Chronic) High cholesterol (Chronic) Hypertension (Chronic) Chronic headaches (Chronic) GERD (gastroesophageal reflux disease) (Chronic) H/O emotional problems (Chronic) Chronic bronchitis (Chronic) Back problem (Chronic) Anemia (Chronic) Medical History: Medical History (Last Reviewed 12/08/18 @ 09:11 by Ping Rutledge) Localized swelling of chest wall (Acute) R22.2 Confusion (Chronic) R41.0 Dark stools (Acute) R19.5 Left-sided chest wall pain (Chronic) R07.89 Vitamin D deficiency (Chronic) E55.9 Vision problems (Chronic) H54.7 Pneumonia (Chronic) J18.9 Osteoarthritis (Chronic) M19.90 Neuropathy (Chronic) G62.9 IBS (irritable bowel syndrome) (Acute) K58.9 High cholesterol (Chronic) E78.00 Hypertension (Chronic) I10 Chronic headaches (Chronic) R51 GERD (gastroesophageal reflux disease) (Chronic) K21.9 H/O emotional problems (Chronic) F48.9 Chronic bronchitis (Chronic) J42 Back problem (Chronic) M53.9 Anemia (Chronic) D64.9 Abdominal pain R10.9 Allergies adhesive tape Allergy (Severe, Verified 01/02/19 05:47) Area Sore cefpodoxime [From Vantin] Allergy (Unknown, Verified 01/02/19 05:47) Unknown codeine Allergy (Unknown, Verified 01/02/19 05:47) Unknown HALLUCINATIONS metronidazole [From Flagyl] Allergy (Unknown, Verified 01/02/19 05:47) Unknown sulfamethoxazole [From Bactrim] Allergy (Unknown, Verified 01/02/19 05:47) Unknown trimethoprim [From Bactrim] Allergy (Unknown, Verified 01/02/19 05:47) Unknown Sulfa (Sulfonamide Antibiotics) Allergy (Verified 01/02/19 05:47) Unknown Home Medications: Ambulatory Orders Medication Instructions Recorded cholecalciferol (vitamin D3) 2,000 2,000 unit PO DAILY 08/11/18 unit capsule sumatriptan 6 mg/0.5 mL 6 mg SC Q1-4H PRN #1 ml 09/08/18 subcutaneous pen injector acetaminophen 325 mg capsule 325 mg PO Q6H PRN 12/08/18 Aspirin [Aspir 81] 81 mg PO DAILY 12/28/18 Hydrochlorothiazide [Hctz] 25 mg PO DAILY 12/28/18 Metoprolol Succinate 50 mg PO BID 12/28/18 Mirabegron [Myrbetriq] 25 mg PO BID 12/28/18 Omeprazole 40 mg PO DAILY 12/28/18 Rosuvastatin Calcium 10 mg PO QHS 12/28/18 Sertraline HCl 150 mg PO DAILY 12/28/18 Trazodone HCl 50 - 100 mg PO QHS 12/28/18 Apixaban [Eliquis] 2.5 mg PO BID 01/04/19 Oxycodone [Oxyir] 5 - 10 mg PO Q4H PRN PRN 7 Days 01/04/19 #60 tab Surgical History: Surgical History (Last Reviewed 12/08/18 @ 09:11 by iPng Rutledge) History of (Acute) Z98.891 1970 Hx of breast reduction, elective (Acute) Z98.890 1997 History of back surgery (Acute) Z98.890 1977, 1997 History of hernia repair (Acute) Z98.890, Z87.19 History of right knee joint replacement (Acute) Z96.651 12/08 History of cholecystectomy Z90.49 History of gastric surgery Z98.890 History of hysterectomy Z90.710 Surgical History: cholecystectomy, herniorrhaphy, hysterectomy, total knee arthroplasty - Bilateral., - - , breast reduction, back surgery, stomach surgery. 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 Lives: Alone Smoking Status: Former smoker Tobacco Use: Non-smoker Alcohol: None Drugs: None - *Family History Maternal Family History: Family History (Last Reviewed 12/08/18 @ 09:11 by Ping Rutledge) Sister Anesthesia complication Breast cancer Hypertension Mother Arthritis Pancreatic cancer Depression Father Colon cancer Hypertension CVA (cerebral vascular accident) Sister Cancer Paternal Family History: Family History (Last Reviewed 12/08/18 @ 09:11 by Ping Rutledge) Sister Anesthesia complication Breast cancer Hypertension Mother Arthritis Pancreatic cancer Depression Father Colon cancer Hypertension CVA (cerebral vascular accident) Sister Cancer Review of Systems Constitutional: Denies: Chills, Fever, Weight Change HEENT: Denies: Head Aches, Sinus Congestion, Sinus Drainage Cardiovascular: Denies: Chest Pain, Palpitations Respiratory: Denies: Cough, Shortness of breath at rest, Sputum production Gastrointestinal: Denies: Abdominal Pain, Nausea, Vomiting Genitourinary: Denies: Dysuria Musculoskeletal: Denies: Joint Pain, Joint Tenderness Skin: Denies: Rash, Wounds Neurological: Denies: Numbness, Tingling, Focal weakness Psychiatric: Denies: Anxiety, Depression, Homicidal Ideations, Suicidal Ideations Hematologic/ Lymphatic: Denies: Easy Bruising, Easy Bleeding VTE Information - Inpt Only VTE Present on Admission: No VTE Mechan Device Prophylaxis: Knee High FABI Hose VTE Pharm Prophylaxis ordered?: Yes - Physical Exam General: Alert, Oriented x3, Cooperative HEENT: Atraumatic, PERRLA, EOMI, Normocephalic Neck: Supple, No JVD, Negative Carotid Bruits Lungs: Clear to auscultation, Normal air movement Cardiovascular: Regular rate, No murmurs Abdomen: Bowel Sounds Present, Soft, Non Tender Extremities: No edema, Capillary Refill Less than 3 Seconds Skin: No rashes, No breakdown, Incision - Left knee clean, dry, intact. Musculoskeletal: No Tenderness to Palpation of Joints or Extremities Neurological: Cranial nerves II-XII grossly intact Psych/Mental Status: Normal Affect, Appropriate Vital Signs Temp Pulse Resp BP Pulse Ox 97 F L 76 18 145/75 H 94 01/04/19 15:40 01/04/19 18:11 01/04/19 15:40 01/04/19 18:11 01/04/19 15:40 Weight: 101 kg Body Mass Index (BMI) 38.2 Intake and Output for Last 24 Hours 01/02/19 01/03/19 01/04/19 23:59 23:59 23:59 Intake Total 240 / 240 Balance 240 / 240 Assessment/Plan All Active Problems (Last Reviewed 12/08/18 @ 09:11 by Ping Rutledge) Localized swelling of chest wall (Acute) Dark stools (Acute) History of (Acute) Hx of breast reduction, elective (Acute) History of back surgery (Acute) History of hernia repair (Acute) History of right knee joint replacement (Acute) IBS (irritable bowel syndrome) (Acute) 73 year old female with below past medical history hospitalized for left total knee replacement 01/02/[address] Steele, admitted to TCU with debility, here for rehabilitation, strengthening, prior to discharge home alone. Debility - PT/OT. Pain - Tylenol 1000MG Q6H PRN mild pain, Tramadol 50MG Q6H PRN moderate pain, Oxycodone 5MG Q4H PRN severe pain. Bowel - Miralax 17GM BID, Senna/colace 2 tablets BID, Dulcolax 10MG OR daily PRN, Magnesium citrate 300ML PO x 1 dose for clean out. Pneumonia vaccination - Administer Prevnar 13 and/or Pneumovax 23 as necessary. DVT prophylaxis - Eliquis 2.5MG BID thru 01/14/2019. CV prophylaxis - Aspirin 81MG daily. Hyperlipidemia - Atorvastatin 20MG QHS. Sore throat - BMX 10ML Q3H PRN. Vitamin D deficiency - D3 2000IU daily. Hypertension - Metoprolol succinate 50MG BID, HCTZ 25MG daily. Overactive bladder - Myrbetriq 25MG BID. GERD - Pantoprazole 40MG daily. Depression - Sertraline 150MG daily. Migraine headache - Imitrex 6MG SC Q1H PRN. Insomnia - Trazodone 100MG QHS.
--- NOTE | 2019-01-04 20:13 | HP.PCM_ITS ---
Problem List (1) Osteoarthritis of left knee Status: Chronic (2) Depression Status: Chronic (3) Overactive bladder Status: Chronic (4) Migraine Status: Chronic (5) Hyperlipidemia Status: Chronic (6) Insomnia Status: Chronic (7) Vitamin D deficiency Status: Chronic (8) Hypertension Status: Chronic (9) GERD (gastroesophageal reflux disease) Status: Chronic History of Present Illness Date of Admission: 01/04/19 Chief Complaint: Here for rehabilitation, strengthening, prior to discharge home alone. The patient is a 73 year old Female with below past medical history hospitalized for left total knee replacement 01/02/[address] Steele. Postoperative course uncomplicated. 01/04/2019 Admit to TCU with debility, here for rehabilitation, strengthening, prior to discharge home alone. Past Medical History Past Medical History (Chronic Problems): Chronic Problems (Last Reviewed 12/08/18 @ 09:11 by Ping Rutledge) Osteoarthritis of left knee (Chronic) Depression (Chronic) Overactive bladder (Chronic) Migraine (Chronic) Hyperlipidemia (Chronic) Insomnia (Chronic) Iron deficiency anemia (Chronic) Confusion (Chronic) Left-sided chest wall pain (Chronic) Vitamin D deficiency (Chronic) Vision problems (Chronic) Pneumonia (Chronic) Osteoarthritis (Chronic) Neuropathy (Chronic) High cholesterol (Chronic) Hypertension (Chronic) Chronic headaches (Chronic) GERD (gastroesophageal reflux disease) (Chronic) H/O emotional problems (Chronic) Chronic bronchitis (Chronic) Back problem (Chronic) Anemia (Chronic) Medical History: Medical History (Last Reviewed 12/08/18 @ 09:11 by Ping Rutledge) Localized swelling of chest wall (Acute) R22.2 Confusion (Chronic) R41.0 Dark stools (Acute) R19.5 Left-sided chest wall pain (Chronic) R07.89 Vitamin D deficiency (Chronic) E55.9 Vision problems (Chronic) H54.7 Pneumonia (Chronic) J18.9 Osteoarthritis (Chronic) M19.90 Neuropathy (Chronic) G62.9 IBS (irritable bowel syndrome) (Acute) K58.9 High cholesterol (Chronic) E78.00 Hypertension (Chronic) I10 Chronic headaches (Chronic) R51 GERD (gastroesophageal reflux disease) (Chronic) K21.9 H/O emotional problems (Chronic) F48.9 Chronic bronchitis (Chronic) J42 Back problem (Chronic) M53.9 Anemia (Chronic) D64.9 Abdominal pain R10.9 Allergies adhesive tape Allergy (Severe, Verified 01/02/19 05:47) Area Sore cefpodoxime [From Vantin] Allergy (Unknown, Verified 01/02/19 05:47) Unknown codeine Allergy (Unknown, Verified 01/02/19 05:47) Unknown HALLUCINATIONS metronidazole [From Flagyl] Allergy (Unknown, Verified 01/02/19 05:47) Unknown sulfamethoxazole [From Bactrim] Allergy (Unknown, Verified 01/02/19 05:47) Unknown trimethoprim [From Bactrim] Allergy (Unknown, Verified 01/02/19 05:47) Unknown Sulfa (Sulfonamide Antibiotics) Allergy (Verified 01/02/19 05:47) Unknown Home Medications: Ambulatory Orders Medication Instructions Recorded cholecalciferol (vitamin D3) 2,000 2,000 unit PO DAILY 08/11/18 unit capsule sumatriptan 6 mg/0.5 mL 6 mg SC Q1-4H PRN #1 ml 09/08/18 subcutaneous pen injector acetaminophen 325 mg capsule 325 mg PO Q6H PRN 12/08/18 Aspirin [Aspir 81] 81 mg PO DAILY 12/28/18 Hydrochlorothiazide [Hctz] 25 mg PO DAILY 12/28/18 Metoprolol Succinate 50 mg PO BID 12/28/18 Mirabegron [Myrbetriq] 25 mg PO BID 12/28/18 Omeprazole 40 mg PO DAILY 12/28/18 Rosuvastatin Calcium 10 mg PO QHS 12/28/18 Sertraline HCl 150 mg PO DAILY 12/28/18 Trazodone HCl 50 - 100 mg PO QHS 12/28/18 Apixaban [Eliquis] 2.5 mg PO BID 01/04/19 Oxycodone [Oxyir] 5 - 10 mg PO Q4H PRN PRN 7 Days 01/04/19 #60 tab Surgical History: Surgical History (Last Reviewed 12/08/18 @ 09:11 by Ping Rutledge) History of (Acute) Z98.891 1970 Hx of breast reduction, elective (Acute) Z98.890 1997 History of back surgery (Acute) Z98.890 1977, 1997 History of hernia repair (Acute) Z98.890, Z87.19 History of right knee joint replacement (Acute) Z96.651 12/08 History of cholecystectomy Z90.49 History of gastric surgery Z98.890 History of hysterectomy Z90.710 Surgical History: cholecystectomy, herniorrhaphy, hysterectomy, total knee arthroplasty - Bilateral., - - , breast reduction, back surgery, stomach surgery. 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 Lives: Alone Smoking Status: Former smoker Tobacco Use: Non-smoker Alcohol: None Drugs: None - *Family History Maternal Family History: Family History (Last Reviewed 12/08/18 @ 09:11 by Ping Rutledge) Sister Anesthesia complication Breast cancer Hypertension Mother Arthritis Pancreatic cancer Depression Father Colon cancer Hypertension CVA (cerebral vascular accident) Sister Cancer Paternal Family History: Family History (Last Reviewed 12/08/18 @ 09:11 by Ping Rutledge) Sister Anesthesia complication Breast cancer Hypertension Mother Arthritis Pancreatic cancer Depression Father Colon cancer Hypertension CVA (cerebral vascular accident) Sister Cancer Review of Systems Constitutional: Denies: Chills, Fever, Weight Change HEENT: Denies: Head Aches, Sinus Congestion, Sinus Drainage Cardiovascular: Denies: Chest Pain, Palpitations Respiratory: Denies: Cough, Shortness of breath at rest, Sputum production Gastrointestinal: Denies: Abdominal Pain, Nausea, Vomiting Genitourinary: Denies: Dysuria Musculoskeletal: Denies: Joint Pain, Joint Tenderness Skin: Denies: Rash, Wounds Neurological: Denies: Numbness, Tingling, Focal weakness Psychiatric: Denies: Anxiety, Depression, Homicidal Ideations, Suicidal Ideations Hematologic/ Lymphatic: Denies: Easy Bruising, Easy Bleeding VTE Information - Inpt Only VTE Present on Admission: No VTE Mechan Device Prophylaxis: Knee High FABI Hose VTE Pharm Prophylaxis ordered?: Yes - Physical Exam General: Alert, Oriented x3, Cooperative HEENT: Atraumatic, PERRLA, EOMI, Normocephalic Neck: Supple, No JVD, Negative Carotid Bruits Lungs: Clear to auscultation, Normal air movement Cardiovascular: Regular rate, No murmurs Abdomen: Bowel Sounds Present, Soft, Non Tender Extremities: No edema, Capillary Refill Less than 3 Seconds Skin: No rashes, No breakdown, Incision - Left knee clean, dry, intact. Musculoskeletal: No Tenderness to Palpation of Joints or Extremities Neurological: Cranial nerves II-XII grossly intact Psych/Mental Status: Normal Affect, Appropriate Vital Signs Temp Pulse Resp BP Pulse Ox 97 F L 76 18 145/75 H 94 01/04/19 15:40 01/04/19 18:11 01/04/19 15:40 01/04/19 18:11 01/04/19 15:40 Weight: 101 kg Body Mass Index (BMI) 38.2 Intake and Output for Last 24 Hours 01/02/19 01/03/19 01/04/19 23:59 23:59 23:59 Intake Total 240 / 240 Balance 240 / 240 Assessment/Plan All Active Problems (Last Reviewed 12/08/18 @ 09:11 by Ping Rutledge) Localized swelling of chest wall (Acute) Dark stools (Acute) History of (Acute) Hx of breast reduction, elective (Acute) History of back surgery (Acute) History of hernia repair (Acute) History of right knee joint replacement (Acute) IBS (irritable bowel syndrome) (Acute) 73 year old female with below past medical history hospitalized for left total knee replacement 01/02/[address] Steele, admitted to TCU with debility, here for rehabilitation, strengthening, prior to discharge home alone. * Debility - PT/OT. * Pain - Tylenol 1000MG Q6H PRN mild pain, Tramadol 50MG Q6H PRN moderate pain, Oxycodone 5MG Q4H PRN severe pain. * Bowel - Miralax 17GM BID, Senna/colace 2 tablets BID, Dulcolax 10MG UT daily PRN, Magnesium citrate 300ML PO x 1 dose for clean out. * Pneumonia vaccination - Administer Prevnar 13 and/or Pneumovax 23 as necessary. * DVT prophylaxis - Eliquis 2.5MG BID thru 01/14/2019. * CV prophylaxis - Aspirin 81MG daily. * Hyperlipidemia - Atorvastatin 20MG QHS. * Sore throat - BMX 10ML Q3H PRN. * Vitamin D deficiency - D3 2000IU daily. * Hypertension - Metoprolol succinate 50MG BID, HCTZ 25MG daily. * Overactive bladder - Myrbetriq 25MG BID. * GERD - Pantoprazole 40MG daily. * Depression - Sertraline 150MG daily. * Migraine headache - Imitrex 6MG SC Q1H PRN. * Insomnia - Trazodone 100MG QHS.
[2019-01-04] MEDS: Atorvastatin Calcium 20 MG Tablet PO (21:16)
[2019-01-04] MEDS: traZODone 100 MG Tablet PO (22:28)
[2019-01-05 05:56] LABS: Absolute Lymphocyte Count 1.41 X10^3/ul (0.83-4.51); Absolute Neutrophil Count 8.3 X10^3/uL (2.0-7.7); Basophil# 0.01 X10^3/uL; Basophil% 0.1 % (0-1); Eosinophil# 0.07 X10^3/uL; Eosinophils% 0.6 % (0-5); Hematocrit 33.2 % (37-47); Hemoglobin 10.2 g/dl (12.0-15.0); Lymphocyte # 1.41 X10^3/ul (4.0); Lymphocyte % 12.9 % (19-41); Mean Corp Hgb Conc 30.7 g/gl (32-36); Mean Corpuscular Hgb 28.3 pg (27.0-32.0); Mean Corpuscular Volume 92.2 fL (81-99); Mean Platelet Vol. 9.5 fl (6.2-12.0); Monocyte# 1.08 X10^3/uL; Monocyte% 9.9 % (0-10); Neutrophil # 8.28 X10^3/uL (2.7-7.7); Neutrophil % 76.1 % (47-70); Platelet Count 211 K/mm3 (150-450); RBC Distribution Width CV 14.9 % (11.6-14.6); RBC Distribution Width SD 48.5 fl (35.1-43.9); White Blood Count 10.9 K/mm3 (4.4-11.0)
[2019-01-05 06:00] LABS: POSITIVE COUNT NO; POSITIVE DIFFERENTIAL NO; POSITIVE MORPHOLOGY NO
[2019-01-05 06:24] LABS: Anion Gap 7 (5-15); BUN 10 mg/dL (7-18); BUN/Creat Ratio 16.6 RATIO (10-20); Calcium,Total 8.4 mg/dL (8.5-10.1); Chloride 100 mmol/L (98-107); EST Glomerular Filtration Rate 103 mL/min (>60); Est Glom Filt Rate - Afr Amer 125 mL/min (>60); Estimated Creatinine Clearance 43.27 ml/min; Glucose 99 mg/dL (74-106); Potassium 2.7 mmol/L (3.5-5.1); Sodium Level 142 mmol/L (136-145)
[2019-01-05] MEDS: Pantoprazole Sodium 40 MG Tablet PO (06:54)
[2019-01-05] MEDS: Mirabegron 25 MG TAB.ER.24H PO ×2 (06:54→17:04)
[2019-01-05] MEDS: APIXABAN 2.5 MG TABLET PO ×2 (06:54→17:04)
[2019-01-05] MEDS: hydroCHLOROthiazide 25 MG Tablet PO (06:54)
[2019-01-05] MEDS: Sertraline 100 MG Tablet 150 MG PO (06:54)
[2019-01-05] MEDS: Polyethylene Glycol 3350 17 GM PACKET PO ×2 (06:54→17:05)
[2019-01-05 07:00] VITALS: BP 117/78; PULSE 70
[2019-01-05] MEDS: Senna/Docusate Sodium 1 Tablet 2 TABLET PO ×2 (07:00→17:04)
[2019-01-05] MEDS: Metoprolol(XL)Succ 50 MG Tablet PO ×2 (07:00→17:04)
--- NOTE | 2019-01-05 08:02 | PHA.CONS_ITS ---
<Crsitiano Charles Maryjane - Last Filed: 01/05/19 07:57> Progress Note - Pharmacy Subjective: TCU Admission Objective: Allergies adhesive tape Allergy (Severe, Verified 01/02/19 05:47) Area Sore cefpodoxime [From Vantin] Allergy (Unknown, Verified 01/02/19 05:47) Unknown codeine Allergy (Unknown, Verified 01/02/19 05:47) Unknown HALLUCINATIONS metronidazole [From Flagyl] Allergy (Unknown, Verified 01/02/19 05:47) Unknown sulfamethoxazole [From Bactrim] Allergy (Unknown, Verified 01/02/19 05:47) Unknown trimethoprim [From Bactrim] Allergy (Unknown, Verified 01/02/19 05:47) Unknown Sulfa (Sulfonamide Antibiotics) Allergy (Verified 01/02/19 05:47) Unknown Current Medications Generic Name Dose Route Start Last Admin Trade Name Freq PRN Reason Stop Dose Admin Acetaminophen 1,000 mg 01/04/19 20:24 Tylenol PO Q6H PRN PRN MILD PAIN (1-3/10) Apixaban 2.5 mg 01/04/19 18:00 01/05/19 06:54 Eliquis PO 01/14/19 23:59 2.5 mg BID KARO Administration Aspirin 81 mg 01/05/19 08:00 Ecotrin PO DAILY KARO Atorvastatin Calcium 20 mg 01/04/19 22:00 01/04/19 21:16 Lipitor PO 20 mg QHS KARO Administration Bisacodyl 10 mg 01/04/19 20:24 Dulcolax RECTAL DAILY PRN Constipation Cholecalciferol 2,000 unit 01/05/19 06:00 01/05/19 06:54 Vitamin D PO 2,000 unit DAILY KARO Administration Hydrochlorothiazide 25 mg 01/05/19 06:00 01/05/19 06:54 Hctz PO 25 mg DAILY KARO Administration Lidocaine/Diphenhydr/Alum/Mg/Simeth 10 ml 01/04/19 17:15 PO Q3H PRN PRN SORE THROAT Metoprolol Succinate 50 mg 01/04/19 18:00 01/05/19 07:00 Toprol Xl (Beta Lindsay) PO 50 mg BID KARO Administration Oxycodone HCl 10 mg 01/04/19 20:24 Oxyir PO Q4H PRN PRN SEVERE PAIN (6-10/10) Pantoprazole Sodium 40 mg 01/05/19 06:00 01/05/19 06:54 Protonix PO 40 mg DAILY KARO Administration Polyethylene Glycol 17 gm 01/05/19 06:00 01/05/19 06:54 Miralax PO 17 gm BID KARO Administration Senna/Docusate Sodium 2 tablet 01/05/19 06:00 01/05/19 07:00 Senokot-S, Carla-Colace PO 2 tablet BID KARO Administration Sertraline HCl 150 mg 01/05/19 06:00 01/05/19 06:54 Zoloft PO 150 mg DAILY KARO Administration Sumatriptan Succinate 6 mg 01/04/19 16:59 Imitrex SC Q1H PRN MIGRAINE SYMPTOMS Tramadol HCl 50 mg 01/04/19 20:23 Ultram PO Q6H PRN PRN MODERATE PAIN (4-5/10) Trazodone HCl 100 mg 01/04/19 22:00 01/04/19 22:28 Desyrel PO 100 mg QHS KARO Administration Tuberculin PPD 5 tu 01/05/19 10:00 Tubersol, Aplisol, Ppd ID 01/05/19 10:01 X1 ONE Tuberculin PPD 5 tu 01/12/19 10:00 Tubersol, Aplisol, Ppd ID 01/12/19 10:01 X1 ONE Problem List (Last Reviewed 12/08/18 @ 09:11 by Ping Rutledge) Osteoarthritis of left knee (Chronic) Depression (Chronic) Overactive bladder (Chronic) Migraine (Chronic) Hyperlipidemia (Chronic) Insomnia (Chronic) Vital Signs Temp Pulse Resp BP Pulse Ox 97 F L 70 16 117/78 97 01/04/19 15:40 01/05/19 07:00 01/04/19 15:40 01/05/19 07:00 01/04/19 15:40 Oxygen Delivery Method Room Air Weight: 101 kg Body Mass Index (BMI) 38.2 Sodium 142 mmol/L (136-145) 01/05/19 05:15 Potassium 2.7 mmol/L (3.5-5.1) L* 01/05/19 05:15 Chloride 100 mmol/L (98-107) 01/05/19 05:15 Carbon Dioxide 35.0 mmol/L (21.0-32.0) H 01/05/19 05:15 Anion Gap 7 (5-15) 01/05/19 05:15 BUN 10 mg/dL (7-18) 01/05/19 05:15 Creatinine 0.60 mg/dL (0.55-1.02) 01/05/19 05:15 Est GFR (MDRD) Af Amer 125 mL/min (>60) 01/05/19 05:15 Est GFR (MDRD) Non-Af 103 mL/min (>60) 01/05/19 05:15 BUN/Creatinine Ratio 16.6 RATIO (10-20) 01/05/19 05:15 Glucose 99 mg/dL (74-106) 01/05/19 05:15 Assessment/Plan: 1) Pain APAP for mild pain, BMX for sore throat, tramadol for moderate pain, oxycodone for severe pain, sumatriptan for migraine. Continue to monitor prn medication use, daily pain scores. 2) HLD Atorvastatin. Continue to monitor lipids. 3) HTN Metoprolol, HCTZ. Continue to monitor BP/HR, renal function, electrolytes. 4) DVT PPx Apixaban. Continue to monitor s/s bleeding/clot. 5) GI Pantoprazole. Continue to monitor s/s GI distress. 6) Mirabegron. Continue to monitor for symptoms. Psychotropic Medications 7) Depression/Sleep Sertraline, trazodone. Continue to monitor for depression, insomnia. Monitor s/s serotonin syndrome with use of dual serotonergic agents. Unnecessary Medications: None Bowel Regimen: 8) Senna/s, PEG, prn bisacodyl. Continue to monitor prn medication use, for constipation/diarrhea. Date of Note:: 01/05/19 - Provider Comments Provider responsibility: Provider responsible to enter orders to implement recommendations <Hardik Gasca Chi - Last Filed: 01/05/19 08:08> Progress Note - Pharmacy Subjective: [] Objective: Allergies adhesive tape Allergy (Severe, Verified 01/02/19 05:47) Area Sore cefpodoxime [From Vantin] Allergy (Unknown, Verified 01/02/19 05:47) Unknown codeine Allergy (Unknown, Verified 01/02/19 05:47) Unknown HALLUCINATIONS metronidazole [From Flagyl] Allergy (Unknown, Verified 01/02/19 05:47) Unknown sulfamethoxazole [From Bactrim] Allergy (Unknown, Verified 01/02/19 05:47) Unknown trimethoprim [From Bactrim] Allergy (Unknown, Verified 01/02/19 05:47) Unknown Sulfa (Sulfonamide Antibiotics) Allergy (Verified 01/02/19 05:47) Unknown Current Medications Generic Name Dose Route Start Last Admin Trade Name Freq PRN Reason Stop Dose Admin Acetaminophen 1,000 mg 01/04/19 20:24 Tylenol PO Q6H PRN PRN MILD PAIN (1-310) Apixaban 2.5 mg 01/04/19 18:00 01/05/19 06:54 Eliquis PO 01/14/19 23:59 2.5 mg BID KARO Administration Aspirin 81 mg 01/05/19 08:00 [facility] Atorvastatin Calcium 20 mg 01/04/19 22:00 01/04/19 21:16 Lipitor PO 20 mg QHS KARO Administration Bisacodyl 10 mg 01/04/19 20:24 Dulcolax RECTAL DAILY PRN Constipation Cholecalciferol 2,000 unit 01/05/19 06:00 01/05/19 06:54 Vitamin D PO 2,000 unit DAILY KARO Administration Hydrochlorothiazide 25 mg 01/05/19 06:00 01/05/19 06:54 Hctz PO 25 mg DAILY KARO Administration Lidocaine/Diphenhydr/Alum/Mg/Simeth 10 ml 01/04/19 17:15 PO Q3H PRN PRN SORE THROAT Metoprolol Succinate 50 mg 01/04/19 18:00 01/05/19 07:00 Toprol Xl (Beta Lindsay) PO 50 mg BID KARO Administration Oxycodone HCl 10 mg 01/04/19 20:24 Oxyir PO Q4H PRN PRN SEVERE PAIN (6-10/10) Pantoprazole Sodium 40 mg 01/05/19 06:00 01/05/19 06:54 Protonix PO 40 mg DAILY KARO Administration Polyethylene Glycol 17 gm 01/05/19 06:00 01/05/19 06:54 Miralax PO 17 gm BID KARO Administration Polysaccharide Iron Complex 150 mg 01/06/19 08:00 Ferrex 150 PO DAILYCM [facility] Potassium Chloride 60 meq 01/05/19 08:02 K-Dur PO 01/05/19 08:03 X1 ONE Potassium Chloride 20 meq 01/05/19 17:00 K-Dur PO BIDCM KARO Senna/Docusate Sodium 2 tablet 01/05/19 06:00 01/05/19 07:00 Senokot-S, Carla-Colace PO 2 tablet BID KARO Administration Sertraline HCl 150 mg 01/05/19 06:00 01/05/19 06:54 Zoloft PO 150 mg DAILY KARO Administration Sumatriptan Succinate 6 mg 01/04/19 16:59 Imitrex SC Q1H PRN MIGRAINE SYMPTOMS Tramadol HCl 50 mg 01/04/19 20:23 Ultram PO Q6H PRN PRN MODERATE PAIN (4-5/10) Trazodone HCl 100 mg 01/04/19 22:00 01/04/19 22:28 Desyrel PO 100 mg QHS KARO Administration Tuberculin PPD 5 tu 01/05/19 10:00 Tubersol, Aplisol, Ppd ID 01/05/19 10:01 X1 ONE Tuberculin PPD 5 01/12/19 10:00 Tubersol, Aplisol, Ppd ID 01/12/19 10:01 X1 ONE Problem List (Last Reviewed 12/08/18 @ 09:11 by Ping Rutledge) Osteoarthritis of left knee (Chronic) Depression (Chronic) Overactive bladder (Chronic) Migraine (Chronic) Hyperlipidemia (Chronic) Insomnia (Chronic) Vital Signs Temp Pulse Resp BP Pulse Ox 97 F L 70 16 117/78 97 01/04/19 15:40 01/05/19 07:00 01/04/19 15:40 01/05/19 07:00 01/04/19 15:40 Oxygen Delivery Method Room Air Weight: 101 kg Body Mass Index (BMI) 38.2 Sodium 142 mmol/L (136-145) 01/05/19 05:15 Potassium 2.7 mmol/L (3.5-5.1) L* 01/05/19 05:15 Chloride 100 mmol/L (98-107) 01/05/19 05:15 Carbon Dioxide 35.0 mmol/L (21.0-32.0) H 01/05/19 05:15 Anion Gap 7 (5-15) 01/05/19 05:15 BUN 10 mg/dL (7-18) 01/05/19 05:15 Creatinine 0.60 mg/dL (0.55-1.02) 01/05/19 05:15 Est GFR (MDRD) Af Amer 125 mL/min (>60) 01/05/19 05:15 Est GFR (MDRD) Non-Af 103 mL/min (>60) 01/05/19 05:15 BUN/Creatinine Ratio 16.6 RATIO (10-20) 01/05/19 05:15 Glucose 99 mg/dL (74-106) 01/05/19 05:15 Assessment/Plan: Psychotropic Medications: Unnecessary Medications: Bowel Regimen: - Provider Comments Provider responsibility: Provider responsible to enter orders to implement recommendations Provider Comments to Recommendations by Pharmacy: Agree
[2019-01-05] MEDS: Acetaminophen 500 MG Tablet 1000 MG PO ×2 (08:51→20:06)
[2019-01-05] MEDS: traMADol 50 MG Tablet PO ×2 (08:52→20:06)
[2019-01-05] MEDS: Aspirin E.C. 81 MG Tablet PO (08:53)
--- NOTE | 2019-01-05 10:48 | CASEMGMT ---
Social Work Met with pt and sister for initial assessment. Pt identified issues with depression and anxiety and having past psych hospitalization. Pt is currently on medications and stable, but open to possible counseling upon DC. Provided patient with counseling resources to pursue if she chooses. Sister and [id number] are very supportive. Pt also identified requiring more help when she returns home and having limited income. Pt is enrolled in Medicaid - provided resources to apply for [employer] for aides and meals on wheels. Sister will assist with making referrals, but offered assistance with any referrals or further emotional support. Notified pt and sister insurance has requested an update 01/09 and continued stay is not guaranteed - both understood. Will continue to follow. ERICA CarterW
[2019-01-05] MEDS: Tuberculin,Purif.prot.deriv. 50 TU/ML Vial 5 ML ID (11:33)
[2019-01-05] MEDS: oxyCODONE 5 MG Tablet 10 MG PO (14:12)
[2019-01-05 16:00] VITALS: BP 117/51; PULSE 76; RESP 16; TEMP 36.8; O2SAT 95
--- NOTE | 2019-01-05 16:13 | CHAPLAIN ---
Type of Pastoral Visit _x__ Initial Visit ___ Follow-up Visit ___ On-call Visit ___ General Patient Visit ___ Spiritual Assessment ___ Family Conference ___ Bereavement ___ Rapid Response ___ Code Blue ___ Other (describe below) Pastoral Care Referral From _x__ Patient ___ Family ___ Nurse ___ Physician ___ [employer] ___ Director Home Health ___ Other (describe below) Sacrament/Intervention _x__ Active listening ___ Anointing ___ Baptist ___ Bereavement ___ Communion _x__ Kellee exploration ___ _x__ Life review _x__ Prayer ___ Reconciliation ___ Sacrament of Sick _x__ Supportive presence ___ Wedding ___ Other (describe below) Pastoral Comments patient is talkative; pt has some relationship issues in the family that are concerning for her; pt has moved to [place] this past winter
[2019-01-05 17:04] VITALS: BP 117/51; PULSE 76
[2019-01-05] MEDS: traZODone 100 MG Tablet PO (20:05)
[2019-01-05] MEDS: Atorvastatin Calcium 20 MG Tablet PO (20:06)
[2019-01-05 22:12] VITALS: RESP 18
[2019-01-06] MEDS: Sertraline 100 MG Tablet 150 MG PO (05:42)
[2019-01-06] MEDS: Senna/Docusate Sodium 1 Tablet 2 TABLET PO (05:43)
[2019-01-06] MEDS: APIXABAN 2.5 MG TABLET PO ×2 (05:44→16:56)
[2019-01-06] MEDS: Mirabegron 25 MG TAB.ER.24H PO ×2 (05:44→16:56)
[2019-01-06] MEDS: Pantoprazole Sodium 40 MG Tablet PO (05:45)
[2019-01-06] MEDS: hydroCHLOROthiazide 25 MG Tablet PO (05:47)
[2019-01-06 06:36] VITALS: BP 154/82; PULSE 70
[2019-01-06] MEDS: Metoprolol(XL)Succ 50 MG Tablet PO ×2 (06:36→16:57)
[2019-01-06] MEDS: traMADol 50 MG Tablet PO (06:42)
[2019-01-06 07:27] LABS: Anion Gap 6 (5-15); BUN 12 mg/dL (7-18); BUN/Creat Ratio 18.8 RATIO (10-20); Calcium,Total 8.7 mg/dL (8.5-10.1); Chloride 102 mmol/L (98-107); Creatinine, Serum 0.64 mg/dL (0.55-1.02); EST Glomerular Filtration Rate 97 mL/min (>60); Est Glom Filt Rate - Afr Amer 117 mL/min (>60); Estimated Creatinine Clearance 43.27 ml/min; Glucose 128 mg/dL (74-106); Potassium 3.9 mmol/L (3.5-5.1); Sodium Level 141 mmol/L (136-145)
[2019-01-06] MEDS: Aspirin E.C. 81 MG Tablet PO (08:07)
[2019-01-06] MEDS: Iron Polysaccharide Complex 150 MG CAPSULE PO (08:07)
[2019-01-06] MEDS: Acetaminophen 500 MG Tablet 1000 MG PO (11:37)
[2019-01-06 16:00] VITALS: BP 109/65; PULSE 73; RESP 16; TEMP 36.2; O2SAT 95
[2019-01-06] MEDS: Polyethylene Glycol 3350 17 GM PACKET PO (16:56)
[2019-01-06 16:57] VITALS: PULSE 73
[2019-01-06] MEDS: Ondansetron 8 MG Tablet PO (19:52)
[2019-01-06] MEDS: Atorvastatin Calcium 20 MG Tablet PO (19:52)
[2019-01-06] MEDS: traZODone 100 MG Tablet PO (19:52)
[2019-01-06] MEDS: oxyCODONE 5 MG Tablet 10 MG PO (19:55)
[2019-01-07] MEDS: Senna/Docusate Sodium 1 Tablet 2 TABLET PO (06:29)
[2019-01-07] MEDS: Sertraline 100 MG Tablet 150 MG PO (06:30)
[2019-01-07] MEDS: Pantoprazole Sodium 40 MG Tablet PO (06:30)
[2019-01-07] MEDS: hydroCHLOROthiazide 25 MG Tablet PO (06:30)
[2019-01-07] MEDS: Mirabegron 25 MG TAB.ER.24H PO ×2 (06:30→17:18)
[2019-01-07] MEDS: APIXABAN 2.5 MG TABLET PO ×2 (06:30→17:21)
[2019-01-07 06:32] VITALS: BP 152/88; PULSE 78
[2019-01-07] MEDS: Metoprolol(XL)Succ 50 MG Tablet PO ×2 (06:32→17:17)
[2019-01-07] MEDS: Acetaminophen 500 MG Tablet 1000 MG PO ×3 (06:38→21:16)
[2019-01-07] MEDS: Iron Polysaccharide Complex 150 MG CAPSULE PO (08:02)
[2019-01-07] MEDS: Aspirin E.C. 81 MG Tablet PO (08:02)
[2019-01-07] MEDS: traMADol 50 MG Tablet PO ×2 (13:36→21:17)
[2019-01-07 15:36] VITALS: BP 144/90; PULSE 79; RESP 18; TEMP 36.6; O2SAT 97
[2019-01-07 17:17] VITALS: BP 144/90; PULSE 79
[2019-01-07] MEDS: oxyCODONE 5 MG Tablet 10 MG PO ×2 (17:17→22:51)
[2019-01-07] MEDS: Atorvastatin Calcium 20 MG Tablet PO (21:06)
[2019-01-07] MEDS: traZODone 100 MG Tablet PO (21:08)
[2019-01-08 06:11] LABS: Anion Gap 7 (5-15); BUN 14 mg/dL (7-18); BUN/Creat Ratio 21.9 RATIO (10-20); Calcium,Total 9.3 mg/dL (8.5-10.1); Chloride 103 mmol/L (98-107); Creatinine, Serum 0.64 mg/dL (0.55-1.02); EST Glomerular Filtration Rate 97 mL/min (>60); Est Glom Filt Rate - Afr Amer 117 mL/min (>60); Estimated Creatinine Clearance 43.27 ml/min; Glucose 93 mg/dL (74-106); Potassium 4.5 mmol/L (3.5-5.1); Sodium Level 142 mmol/L (136-145)
[2019-01-08] MEDS: traMADol 50 MG Tablet PO ×2 (06:13→20:25)
[2019-01-08] MEDS: Acetaminophen 500 MG Tablet 1000 MG PO ×2 (06:14→20:25)
[2019-01-08] MEDS: Polyethylene Glycol 3350 17 GM PACKET PO ×2 (06:15→17:54)
[2019-01-08] MEDS: Mirabegron 25 MG TAB.ER.24H PO ×2 (06:18→17:54)
[2019-01-08] MEDS: Pantoprazole Sodium 40 MG Tablet PO (06:18)
[2019-01-08] MEDS: hydroCHLOROthiazide 25 MG Tablet PO (06:18)
[2019-01-08] MEDS: Sertraline 100 MG Tablet 150 MG PO (06:19)
[2019-01-08 06:20] VITALS: BP 150/93; PULSE 72
[2019-01-08] MEDS: Senna/Docusate Sodium 1 Tablet 2 TABLET PO ×2 (06:20→17:54)
[2019-01-08] MEDS: Metoprolol(XL)Succ 50 MG Tablet PO ×2 (06:20→17:54)
[2019-01-08] MEDS: APIXABAN 2.5 MG TABLET PO ×2 (06:21→17:54)
--- NOTE | 2019-01-08 08:13 | NURSING ---
New order to decrease potassium to 20mEq daily.
[2019-01-08] MEDS: Aspirin E.C. 81 MG Tablet PO (08:47)
[2019-01-08] MEDS: Iron Polysaccharide Complex 150 MG CAPSULE PO (08:47)
[2019-01-08 10:00] VITALS: PULSE 84; O2SAT 96
[2019-01-08] MEDS: oxyCODONE 5 MG Tablet 10 MG PO ×2 (11:24→22:57)
[2019-01-08 16:00] VITALS: BP 134/69; PULSE 85; RESP 16; TEMP 36; O2SAT 98
--- NOTE | 2019-01-08 17:33 | NURSING ---
left knee incision with redness, warmth and increased pain. Positive homans sign, c/o sharp pain to posterior left knee that shoots down to foot. Dr. Gasca notified, new order for Keflex 500mg BID x 10 days and doxycycline 100mg PO BID x 10 days and doppler to BLLE.
[2019-01-08 17:54] VITALS: BP 134/69; PULSE 85
--- NOTE | 2019-01-08 20:02 | PN_ITS ---
Subjective: Resident seen in room, lying in bed. Nursing staff note swelling of left lower extremity, pain behind left knee. Her left knee incision is erythematous, tender to touch. Vitals/I&O's: Vital Signs Temp Pulse Resp BP Pulse Ox 96.8 F L 85 16 134/69 H 98 01/08/19 16:00 01/08/19 17:54 01/08/19 16:00 01/08/19 17:54 01/08/19 16:00 Oxygen Delivery Method Room Air Weight: 101 kg Body Mass Index (BMI) 38.2 Intake and Output for Last 24 Hours 01/06/19 01/07/19 01/08/19 23:59 23:59 23:59 Intake Total 1180 / 1180 800 / 800 720 / 720 Balance 1180 / 1180 800 / 800 720 / 720 Laboratory Results 01/08/19 05:00: Sodium 142, Potassium 4.5, Chloride 103, Carbon Dioxide 32.0, Anion Gap 7, BUN 14, Creatinine 0.64, Estim Creat Clear Calc 43.27, Est GFR (MDRD) Af Amer 117, Est GFR (MDRD) Non-Af 97, BUN/Creatinine Ratio 21.9 H, Glucose 93, Calcium 9.3 Past Medical History Past Medical History (Chronic Problems): Chronic Problems (Last Reviewed 12/08/18 @ 09:11 by Ping Rutledge) Osteoarthritis of left knee (Chronic) Depression (Chronic) Overactive bladder (Chronic) Migraine (Chronic) Hyperlipidemia (Chronic) Insomnia (Chronic) Iron deficiency anemia (Chronic) Confusion (Chronic) Left-sided chest wall pain (Chronic) Vitamin D deficiency (Chronic) Vision problems (Chronic) Pneumonia (Chronic) Osteoarthritis (Chronic) Neuropathy (Chronic) High cholesterol (Chronic) Hypertension (Chronic) Chronic headaches (Chronic) GERD (gastroesophageal reflux disease) (Chronic) H/O emotional problems (Chronic) Chronic bronchitis (Chronic) Back problem (Chronic) Anemia (Chronic) Medical History: Medical History (Last Reviewed 12/08/18 @ 09:11 by Ping Rutledge) Localized swelling of chest wall (Acute) R22.2 Confusion (Chronic) R41.0 Dark stools (Acute) R19.5 Left-sided chest wall pain (Chronic) R07.89 Vitamin D deficiency (Chronic) E55.9 Vision problems (Chronic) H54.7 Pneumonia (Chronic) J18.9 Osteoarthritis (Chronic) M19.90 Neuropathy (Chronic) G62.9 IBS (irritable bowel syndrome) (Acute) K58.9 High cholesterol (Chronic) E78.00 Hypertension (Chronic) I10 Chronic headaches (Chronic) R51 GERD (gastroesophageal reflux disease) (Chronic) K21.9 H/O emotional problems (Chronic) F48.9 Chronic bronchitis (Chronic) J42 Back problem (Chronic) M53.9 Anemia (Chronic) D64.9 Abdominal pain R10.9 Allergies adhesive tape Allergy (Severe, Verified 01/02/19 05:47) Area Sore cefpodoxime [From Vantin] Allergy (Unknown, Verified 01/02/19 05:47) Unknown codeine Allergy (Unknown, Verified 01/02/19 05:47) Unknown HALLUCINATIONS metronidazole [From Flagyl] Allergy (Unknown, Verified 01/02/19 05:47) Unknown sulfamethoxazole [From Bactrim] Allergy (Unknown, Verified 01/02/19 05:47) Unknown trimethoprim [From Bactrim] Allergy (Unknown, Verified 01/02/19 05:47) Unknown Sulfa (Sulfonamide Antibiotics) Allergy (Verified 01/02/19 05:47) Unknown Home Medications: Ambulatory Orders Medication Instructions Recorded cholecalciferol (vitamin D3) 2,000 2,000 unit PO DAILY 08/11/18 unit capsule sumatriptan 6 mg/0.5 mL 6 mg SC Q1-4H PRN #1 ml 09/08/18 subcutaneous pen injector acetaminophen 325 mg capsule 325 mg PO Q6H PRN 12/08/18 Aspirin [Aspir 81] 81 mg PO DAILY 12/28/18 Hydrochlorothiazide [Hctz] 25 mg PO DAILY 12/28/18 Metoprolol Succinate 50 mg PO BID 12/28/18 Mirabegron [Myrbetriq] 25 mg PO BID 12/28/18 Omeprazole 40 mg PO DAILY 12/28/18 Rosuvastatin Calcium 10 mg PO QHS 12/28/18 Sertraline HCl 150 mg PO DAILY 12/28/18 Trazodone HCl 50 - 100 mg PO QHS 12/28/18 Apixaban [Eliquis] 2.5 mg PO BID 01/04/19 Oxycodone [Oxyir] 5 - 10 mg PO Q4H PRN PRN 7 Days 01/04/19 #60 tab Surgical History: Surgical History (Last Reviewed 12/08/18 @ 09:11 by Ping Rutledge) History of (Acute) Z98.891 1970 Hx of breast reduction, elective (Acute) Z98.890 1997 History of back surgery (Acute) Z98.890 1977, 1997 History of hernia repair (Acute) Z98.890, Z87.19 History of right knee joint replacement (Acute) Z96.651 12/08 History of cholecystectomy Z90.49 History of gastric surgery Z98.890 History of hysterectomy Z90.710 Surgical History: cholecystectomy, herniorrhaphy, hysterectomy, total knee arthroplasty - Bilateral., - - , breast reduction, back surgery, stomach surgery. Psychiatric History: Depression LICENSE ISSUER History: No pertinent LICENSE ISSUER history Lives: Alone Smoking Status: Former smoker Tobacco Use: Non-smoker Alcohol: None Drugs: None - *Family History Maternal Family History: Family History (Last Reviewed 12/08/18 @ 09:11 by Ping Rutledge) Sister Anesthesia complication Breast cancer Hypertension Mother Arthritis Pancreatic cancer Depression Father Colon cancer Hypertension CVA (cerebral vascular accident) Sister Cancer Paternal Family History: Family History (Last Reviewed 12/08/18 @ 09:11 by Ping Rutledge) Sister Anesthesia complication Breast cancer Hypertension Mother Arthritis Pancreatic cancer Depression Father Colon cancer Hypertension CVA (cerebral vascular accident) Sister Cancer Capacity - Capacity Assessment Tool Can the patient make a choice & communicate that choice?: Yes Can the patient understand benefits, risks and alternatives?: Yes Can the patient make a logical, rational choice?: Yes Is the choice the patient makes consistent w/ their values?: Yes Is there an impending, emergent risk to the patient?: No Does the patient have an Advance Directive?: Yes Is there a Surrogate Available?: No i.e. HCPOA: No i.e. close relative (spouse, child, parent, sibling)?: No Review of Systems Constitutional: Denies: Chills, Fever, Weight Change HEENT: Denies: Head Aches, Sinus Congestion, Sinus Drainage Cardiovascular: Reports: Edema - Left lower extremity.. Denies: Chest Pain, Palpitations Respiratory: Denies: Cough, Shortness of breath at rest, Sputum production Gastrointestinal: Denies: Abdominal Pain, Nausea, Vomiting Genitourinary: Denies: Dysuria Musculoskeletal: Denies: Joint Pain, Joint Tenderness Skin: Reports: - - Left knee incision tender, erythematous, warm.. Denies: Rash, Wounds Neurological: Denies: Numbness, Tingling, Focal weakness Psychiatric: Denies: Anxiety, Depression, Homicidal Ideations, Suicidal Ideations Hematologic/ Lymphatic: Denies: Easy Bruising, Easy Bleeding - Physical Exam General: Alert, Oriented x3, Cooperative HEENT: Atraumatic, PERRLA, EOMI, Normocephalic Neck: Supple, No JVD, Negative Carotid Bruits Lungs: Clear to auscultation, Normal air movement Cardiovascular: Regular rate, No murmurs Abdomen: Bowel Sounds Present, Soft, Non Tender Extremities: Capillary Refill Less than 3 Seconds, Edema - Left lower extremity. Skin: No rashes, No breakdown, Incision - Left knee tender, erythematous, warm to touch. Musculoskeletal: No Tenderness to Palpation of Joints or Extremities Neurological: Cranial nerves II-XII grossly intact Psych/Mental Status: Normal Affect, Appropriate Vital Signs Temp Pulse Resp BP Pulse Ox 96.8 F L 85 16 134/69 H 98 01/08/19 16:00 01/08/19 17:54 01/08/19 16:00 01/08/19 17:54 01/08/19 16:00 Oxygen Delivery Method Room Air Weight: 101 kg Body Mass Index (BMI) 38.2 Intake and Output for Last 24 Hours 01/06/19 01/07/19 01/08/19 23:59 23:59 23:59 Intake Total 1180 / 1180 800 / 800 720 / 720 Balance 1180 / 1180 800 / 800 720 / 720 Laboratory Tests Past 24 Hrs 01/08/19 05:00 Sodium 142 Potassium 4.5 Chloride 103 Carbon Dioxide 32.0 Anion Gap 7 BUN 14 Creatinine 0.64 Estim Creat Clear Calc 43.27 Est GFR (MDRD) Af Amer 117 Est GFR (MDRD) Non-Af 97 BUN/Creatinine Ratio 21.9 H Glucose 93 Calcium 9.3 Assessment/Plan All Active Problems (Last Reviewed 12/08/18 @ 09:11 by Ping Rutledge) Localized swelling of chest wall (Acute) Dark stools (Acute) History of (Acute) Hx of breast reduction, elective (Acute) History of back surgery (Acute) History of hernia repair (Acute) History of right knee joint replacement (Acute) IBS (irritable bowel syndrome) (Acute) 73 year old female with below past medical history hospitalized for left total knee replacement 01/02/[address] Steele, admitted to TCU with debility, here for rehabilitation, strengthening, prior to discharge home alone. * Left lower extremity edema - +Buster's sign, order doppler ultrasound of bilateral lower extremity to evaluate for DVT. * Left knee cellulitis - Keflex 500MG Q12H, Doxycycline 100MG Q12H x 10 days. * DVT prophylaxis - Eliquis 2.5MG BID thru 01/14/2019.
[2019-01-08] MEDS: traZODone 100 MG Tablet PO (20:22)
[2019-01-08] MEDS: Atorvastatin Calcium 20 MG Tablet PO (20:22)
[2019-01-08] MEDS: Doxycycline 100 MG CAPSULE PO (22:09)
[2019-01-08] MEDS: Cephalexin 500 MG Capsule PO (22:53)
[2019-01-09 06:00] VITALS: BP 152/89; PULSE 75
[2019-01-09] MEDS: Metoprolol(XL)Succ 50 MG Tablet PO ×2 (06:00→17:35)
[2019-01-09] MEDS: Mirabegron 25 MG TAB.ER.24H PO ×2 (06:00→17:35)
[2019-01-09] MEDS: Sertraline 100 MG Tablet 150 MG PO (06:00)
[2019-01-09] MEDS: Cephalexin 500 MG Capsule PO ×2 (06:00→17:35)
[2019-01-09] MEDS: APIXABAN 2.5 MG TABLET PO ×2 (06:00→17:35)
[2019-01-09] MEDS: Senna/Docusate Sodium 1 Tablet 2 TABLET PO ×2 (06:00→17:36)
[2019-01-09] MEDS: Pantoprazole Sodium 40 MG Tablet PO (06:00)
[2019-01-09] MEDS: hydroCHLOROthiazide 25 MG Tablet PO (06:00)
[2019-01-09] MEDS: Acetaminophen 500 MG Tablet 1000 MG PO (08:22)
[2019-01-09] MEDS: Iron Polysaccharide Complex 150 MG CAPSULE PO (08:23)
[2019-01-09] MEDS: Aspirin E.C. 81 MG Tablet PO (08:23)
[2019-01-09] MEDS: traMADol 50 MG Tablet PO ×2 (08:23→22:51)
[2019-01-09] MEDS: Doxycycline 100 MG CAPSULE PO ×2 (09:11→19:36)
[2019-01-09 09:20] VITALS: PULSE 80; RESP 18; O2SAT 96
[2019-01-09] MEDS: oxyCODONE 5 MG Tablet 10 MG PO ×2 (10:48→19:38)
[2019-01-09 15:15] VITALS: BP 117/71; PULSE 82; RESP 16; TEMP 36.5; O2SAT 94
[2019-01-09 17:35] VITALS: BP 117/71; PULSE 82
[2019-01-09] MEDS: traZODone 100 MG Tablet PO (19:36)
[2019-01-09] MEDS: Atorvastatin Calcium 20 MG Tablet PO (19:36)
[2019-01-10] MEDS: Senna/Docusate Sodium 1 Tablet 2 TABLET PO ×2 (06:26→17:15)
[2019-01-10 06:27] VITALS: BP 129/78; PULSE 74
[2019-01-10] MEDS: hydroCHLOROthiazide 25 MG Tablet PO (06:27)
[2019-01-10] MEDS: Metoprolol(XL)Succ 50 MG Tablet PO ×2 (06:27→17:15)
[2019-01-10] MEDS: Sertraline 100 MG Tablet 150 MG PO (06:27)
[2019-01-10] MEDS: Polyethylene Glycol 3350 17 GM PACKET PO (06:27)
[2019-01-10] MEDS: Mirabegron 25 MG TAB.ER.24H PO ×2 (06:28→17:15)
[2019-01-10] MEDS: APIXABAN 2.5 MG TABLET PO ×2 (06:28→17:15)
[2019-01-10] MEDS: Cephalexin 500 MG Capsule PO ×2 (06:28→17:15)
[2019-01-10] MEDS: Pantoprazole Sodium 40 MG Tablet PO (06:28)
[2019-01-10] MEDS: Iron Polysaccharide Complex 150 MG CAPSULE PO (08:00)
[2019-01-10] MEDS: Aspirin E.C. 81 MG Tablet PO (08:00)
[2019-01-10] MEDS: traMADol 50 MG Tablet PO ×2 (08:54→20:20)
[2019-01-10] MEDS: Acetaminophen 500 MG Tablet 1000 MG PO ×2 (08:54→20:20)
--- NOTE | 2019-01-10 09:58 | CASEMGMT ---
Addendum entered by Amber Trent 01/10/19 15:46: Insurance dual cut - LCD for facility 01/10; however, to follow 48 hour advanced notice of noncoverage, LCD for patient 01/12, with a discharge 01/13. Spoke with pt and sister whom are agreeable to DC 01/13 as sister cannot transport patient home earlier. Plan: DC home alone 01/[address] [facility] PT/OT/SN, [employer] to provide FWW, referral made to [facility]. Pt is in contact with [facility] to receive aides and shower chair. Original Note: Social Work IDT met with patient, sister and [id number] for care plan meeting. Discussed patient's progress in therapy - supervision or SBA for all ADLs. Still under bending precautions. Awaiting insurance update outcome from 01/08. Pt and sister understand continued stay is not guaranteed; however, IDT and pt are comfortable with discharging. Recommending [facility] PT/OT/SN and a shower chair with arms, FWW, script for grab bars for apartment complex to install. After [facility], pt agreeable to transitioning to [facility] for outpatient therapy. Educated pt to receiving those recommendations and script from [facility] or PCP. Pt has spoken to [facility] services - in 5 days pt will receive paperwork to complete to be assessed for eligible services. Pt already receives Meals on Wheels and will call to restart upon DC. Referral made to [facility] ([facility]) on 01/09. Will continue to follow for final DC date from insurance. Amber Trent, MAILING SECTION CLERK GROMMET MACHINE OPERATOR
[2019-01-10] MEDS: Doxycycline 100 MG CAPSULE PO ×2 (10:15→20:22)
[2019-01-10] MEDS: oxyCODONE 5 MG Tablet 10 MG PO (12:53)
[2019-01-10 15:47] VITALS: BP 116/75; PULSE 75; RESP 16; TEMP 35.7; O2SAT 95
[2019-01-10 17:15] VITALS: BP 116/75; PULSE 75
--- NOTE | 2019-01-10 19:25 | PCM.DC ---
- Discharge Diagnoses Current Active Problems: Current Active and Chronic Problems (Last Reviewed 12/08/18 @ 09:11 by Ping Rutledge) Osteoarthritis of left knee (Chronic) Depression (Chronic) Overactive bladder (Chronic) Migraine (Chronic) Hyperlipidemia (Chronic) Insomnia (Chronic) You will use the following diet at home:: No restrictions, Regular Your food should be the consistency of: Regular Your liquids should be the consistency of: Regular/Thin Discharge Activity: Return to Normal Activity, May Shower, Use Walker Weight Bearing Status: Weight bearing as tolerated Call your doctor if you observe: Fever of 101 or Higher, Inability to urinate, Inability to have a bowel movement, Shortness of breath, Chest pain, Uncontrolled pain Allergies/Adverse Reactions: Allergies adhesive tape Allergy (Severe, Verified 01/02/19 05:47) Area Sore cefpodoxime [From Vantin] Allergy (Unknown, Verified 01/02/19 05:47) Unknown codeine Allergy (Unknown, Verified 01/02/19 05:47) Unknown HALLUCINATIONS metronidazole [From Flagyl] Allergy (Unknown, Verified 01/02/19 05:47) Unknown sulfamethoxazole [From Bactrim] Allergy (Unknown, Verified 01/02/19 05:47) Unknown trimethoprim [From Bactrim] Allergy (Unknown, Verified 01/02/19 05:47) Unknown Sulfa (Sulfonamide Antibiotics) Allergy (Verified 01/02/19 05:47) Unknown Medications to take at Discharge cholecalciferol (vitamin D3) 2,000 unit capsule 2,000 unit PO DAILY 08/11/18 sumatriptan 6 mg/0.5 mL subcutaneous pen injector 6 mg SC Q1-4H PRN #1 ml 09/08/18 Aspirin [Aspir 81] 81 mg PO DAILY 12/28/18 Hydrochlorothiazide [Hctz] 25 mg PO DAILY 12/28/18 Metoprolol Succinate 50 mg PO BID 12/28/18 Mirabegron [Myrbetriq] 25 mg PO BID 12/28/18 Omeprazole 40 mg PO DAILY 12/28/18 Rosuvastatin Calcium 10 mg PO QHS 12/28/18 Sertraline HCl 150 mg PO DAILY 12/28/18 Trazodone HCl 50 - 100 mg PO QHS 12/28/18 Acetaminophen [Tylenol] 1,000 mg PO Q6H PRN PRN tablet 01/10/19 Cephalexin [Keflex] 500 mg PO Q12 #14 cap 01/10/19 Doxycycline 100 mg PO Q12H #14 cap 01/10/19 Iron Polysaccharide Complex [Ferrex 150] 150 mg PO DAILYCM #30 cap 01/10/19 Oxycodone [Oxyir] 5 - 10 mg PO Q4H PRN PRN 7 Days #60 tab 01/10/19 Polyethylene Glycol 3350 [Miralax] 17 gm PO BID #60 packet 01/10/19 Potassium Chloride [K-Dur] 20 meq PO DAILYCM #30 tab 01/10/19 traMADol [Ultram] 50 mg PO Q6H PRN PRN 7 Days #28 tab 01/10/19 The following prescriptions were given: Doxycycline 100 mg PO Q12H #14 cap Transmission Status: Pending to [facility] Iron Polysaccharide Complex [Ferrex 150] 150 mg PO DAILYCM #30 cap Transmission Status: Pending to [facility] Potassium Chloride [K-Dur] 20 meq PO DAILYCM #30 tab Transmission Status: Pending to [facility] Cephalexin [Keflex] 500 mg PO Q12 #14 cap Transmission Status: Pending to [facility] Polyethylene Glycol 3350 [Miralax] 17 gm PO BID #60 packet Transmission Status: Pending to [facility] Oxycodone [Oxyir] 5 - 10 mg PO Q4H PRN PRN 7 Days #60 tab PRN Reason: Mod-Severe Pain (4-10/10) Prescription Printed traMADol [Ultram] 50 mg PO Q6H PRN PRN 7 Days #28 tab PRN Reason: Moderate Pain (4-5/10) Prescription Printed Primary Care Physician: Yashira Hughes MD [Primary Care Provider] - Please follow up with your Primary Care Physician in: 1 week. Test Results: Test results from this visit will be discussed in further detail at your follow-up appointment, if applicable. Please Follow Up With: Yashira Hughes MD Please Follow Up With: Dr Murdock When: 2 weeks Proposed Discharge Date: 01/13/19
--- NOTE | 2019-01-10 19:27 | DS.PCM_ITS ---
Discharge Date and Diagnosis Date of Admission: 01/04/19 Date of Discharge: 01/13/19 - Secondary Discharge Diagnosis Chronic Problems (Last Reviewed 12/08/18 @ 09:11 by Ping Rutledge) Osteoarthritis of left knee (Chronic) Depression (Chronic) Overactive bladder (Chronic) Migraine (Chronic) Hyperlipidemia (Chronic) Insomnia (Chronic) Iron deficiency anemia (Chronic) Confusion (Chronic) Left-sided chest wall pain (Chronic) Vitamin D deficiency (Chronic) Vision problems (Chronic) Pneumonia (Chronic) Osteoarthritis (Chronic) Neuropathy (Chronic) High cholesterol (Chronic) Hypertension (Chronic) Chronic headaches (Chronic) GERD (gastroesophageal reflux disease) (Chronic) H/O emotional problems (Chronic) Chronic bronchitis (Chronic) Back problem (Chronic) Anemia (Chronic) Hospital Course and Treatment Imaging Results: 01/04/19 16:39 Diet: Regular Diet Is pt able to select menu?: Yes Operations: None, - - tka Procedures: None Summary of Care Provided: The patient is a 73 year old Female with below past medical history hospitalized for left total knee replacement 01/02/[address] Steele, admitted to TCU with debility, here for rehabilitation, strengthening, prior to discharge home alone. On TCU, potassium chloride ER 10MEQ daily added for hypokalemia. Ferrex 150MG daily added for postoperative anemia. DVT prophylaxis Eliquis 2.5MG twice daily transitioned to Aspirin 81MG daily upon discharge. 01/09/2019 Resident developed cellulitis of left knee incision, Doppler ultrasound ruled out DVT, will discharge on Keflex, Doxycycline to complete 10 day course. Discharge home alone, Home Health Services for PT/OT/SN, [employer] Front Wheeled Walker, referred to [facility], [facility] for aides, shower chair. - Physical Exam Vital Signs Temp Pulse Resp BP Pulse Ox 96.3 F L 75 16 116/75 95 01/10/19 15:47 01/10/19 17:15 01/10/19 15:47 01/10/19 17:15 01/10/19 15:47 Oxygen Delivery Method Room Air Weight: 99.535 kg Body Mass Index (BMI) 38.2 Intake and Output for Last 24 Hours 01/08/19 01/09/19 01/10/19 23:59 23:59 23:59 Intake Total 720 / 720 600 / 600 960 / 960 Balance 720 / 720 600 / 600 960 / 960 Discharge Diet: No Restrictions Discharge Activity: Return to Normal Activity, May Shower, Use Walker Weight Bearing Status: Weight bearing as tolerated Call your doctor if you observe: Fever of 101 or Higher, Inability to urinate, Inability to have a bowel movement, Shortness of breath, Chest pain, Uncontrolled pain Home Medications: Medications to take at Discharge cholecalciferol (vitamin D3) 2,000 unit capsule 2,000 unit PO DAILY 08/11/18 sumatriptan 6 mg/0.5 mL subcutaneous pen injector 6 mg SC Q1-4H PRN #1 ml 09/08/18 Aspirin [Aspir 81] 81 mg PO DAILY 12/28/18 Hydrochlorothiazide [Hctz] 25 mg PO DAILY 12/28/18 Metoprolol Succinate 50 mg PO BID 12/28/18 Mirabegron [Myrbetriq] 25 mg PO BID 12/28/18 Omeprazole 40 mg PO DAILY 12/28/18 Rosuvastatin Calcium 10 mg PO QHS 12/28/18 Sertraline HCl 150 mg PO DAILY 12/28/18 Trazodone HCl 50 - 100 mg PO QHS 12/28/18 Acetaminophen [Tylenol] 1,000 mg PO Q6H PRN PRN tablet 01/10/19 Cephalexin [Keflex] 500 mg PO Q12 #14 cap 01/10/19 Doxycycline 100 mg PO Q12H #14 cap 01/10/19 Iron Polysaccharide Complex [Ferrex 150] 150 mg PO DAILYCM #30 cap 01/10/19 Oxycodone [Oxyir] 5 - 10 mg PO Q4H PRN PRN 7 Days #60 tab 01/10/19 Polyethylene Glycol 3350 [Miralax] 17 gm PO BID #60 packet 01/10/19 Potassium Chloride [K-Dur] 20 meq PO DAILYCM #30 tab 01/10/19 traMADol [Ultram] 50 mg PO Q6H PRN PRN 7 Days #28 tab 01/10/19 Following Prescrptions Were Given to Patient: Doxycycline 100 mg PO Q12H #14 cap Transmission Status: Pending to [facility] Iron Polysaccharide Complex [Ferrex 150] 150 mg PO DAILYCM #30 cap Transmission Status: Pending to [facility] Potassium Chloride [K-Dur] 20 meq PO DAILYCM #30 tab Transmission Status: Pending to [facility] Cephalexin [Keflex] 500 mg PO Q12 #14 cap Transmission Status: Pending to [facility] Polyethylene Glycol 3350 [Miralax] 17 gm PO BID #60 packet Transmission Status: Pending to [facility] Oxycodone [Oxyir] 5 - 10 mg PO Q4H PRN PRN 7 Days #60 tab PRN Reason: Mod-Severe Pain (4-10/10) Prescription Printed traMADol [Ultram] 50 mg PO Q6H PRN PRN 7 Days #28 tab PRN Reason: Moderate Pain (4-5/10) Prescription Printed Primary Care Physician: Yashira Hughes MD [Primary Care Provider] - Please follow up with your Primary Care Physician in: 1 week. Please Follow Up With: Yashira Hughes MD Please Follow Up With: Dr Murdock When: 2 weeks Disposition: Home with Home Health Minutes spent on discharge:: 35 Patient Condition:: Stable Medical Necessity - Tobacco Use Smoking Status: Former smoker Tobacco Use: Non-smoker Meaningful Use Info Meaningful Use Diagnoses (Choose all that apply): None applicable
--- NOTE | 2019-01-10 19:30 | PCM.PN.HH ---
Home Health Note - Plan Overview of reason of hospitalization: The patient is a 73 year old Female with below past medical history hospitalized for left total knee replacement 01/02/[address] Steele, admitted to TCU with debility, here for rehabilitation, strengthening, prior to discharge home alone. On TCU, potassium chloride ER 10MEQ daily added for hypokalemia. Ferrex 150MG daily added for postoperative anemia. DVT prophylaxis Eliquis 2.5MG twice daily transitioned to Aspirin 81MG daily upon discharge. 01/09/2019 Resident developed cellulitis of left knee incision, Doppler ultrasound ruled out DVT, will discharge on Keflex, Doxycycline to complete 10 day course. Discharge home alone, Home Health Services for PT/OT/SN, [employer] Front Wheeled Walker, referred to [facility] for aides, shower chair. Problems: Patient was seen for (Last Reviewed 12/08/18 @ 09:11 by Ping Rutledge) Osteoarthritis of left knee (Chronic) Depression (Chronic) Overactive bladder (Chronic) Migraine (Chronic) Hyperlipidemia (Chronic) Insomnia (Chronic) Complete List of Medical Problems (Last Reviewed 12/08/18 @ 09:11 by Ping Rutledge) Osteoarthritis of left knee (Chronic) Depression (Chronic) Overactive bladder (Chronic) Migraine (Chronic) Hyperlipidemia (Chronic) Insomnia (Chronic) Iron deficiency anemia (Chronic) Localized swelling of chest wall (Acute) Confusion (Chronic) Dark stools (Acute) Left-sided chest wall pain (Chronic) History of (Acute) Hx of breast reduction, elective (Acute) History of back surgery (Acute) History of hernia repair (Acute) History of right knee joint replacement (Acute) Vitamin D deficiency (Chronic) Vision problems (Chronic) Pneumonia (Chronic) Osteoarthritis (Chronic) Neuropathy (Chronic) IBS (irritable bowel syndrome) (Acute) High cholesterol (Chronic) Hypertension (Chronic) Chronic headaches (Chronic) GERD (gastroesophageal reflux disease) (Chronic) H/O emotional problems (Chronic) Chronic bronchitis (Chronic) Back problem (Chronic) Anemia (Chronic) - Requirements and Reasons Disciplines Needed/Ordered: Care Home, Physical Therapy Reason for Disciplines: Disease Specific Monitoring/education, Wound Care, Labs for Short Term Therapeutic Monitoring, Gait Training, Stair Training, Fall Prevention, Home Safety/Equipment Instruction, Balance and/or Posture Training, Transfer Training Related To: Change in Medical Treatment Plan, Limited/Poor Endurance, Physical Impairments, Unsteady Gait/Balance, Fall Risk Patient is unable to leave the home: Without Aid of Supportive Devices (crutches, cane, wheelchair, walker), Without the assistance of another person, Because it is medically contraindicated Medically Contraindicated related to: Weight Bearing Status - Additional Disciplines Additional Disciplines Needed/Ordered: Occupational Therapy
[2019-01-10 20:05] VITALS: PULSE 82; RESP 16; O2SAT 95
[2019-01-10] MEDS: traZODone 100 MG Tablet PO (20:22)
[2019-01-10] MEDS: Atorvastatin Calcium 20 MG Tablet PO (20:23)
[2019-01-11] MEDS: Senna/Docusate Sodium 1 Tablet 2 TABLET PO ×2 (06:35→16:57)
[2019-01-11] MEDS: Sertraline 100 MG Tablet 150 MG PO (06:36)
[2019-01-11] MEDS: Pantoprazole Sodium 40 MG Tablet PO (06:37)
[2019-01-11] MEDS: Cephalexin 500 MG Capsule PO ×2 (06:37→16:57)
[2019-01-11] MEDS: APIXABAN 2.5 MG TABLET PO ×2 (06:37→16:57)
[2019-01-11] MEDS: hydroCHLOROthiazide 25 MG Tablet PO (06:37)
[2019-01-11] MEDS: Mirabegron 25 MG TAB.ER.24H PO ×2 (06:38→16:57)
[2019-01-11 06:43] VITALS: BP 123/76; PULSE 70
[2019-01-11] MEDS: Metoprolol(XL)Succ 50 MG Tablet PO ×2 (06:43→16:57)
[2019-01-11] MEDS: Aspirin E.C. 81 MG Tablet PO (08:04)
[2019-01-11] MEDS: Iron Polysaccharide Complex 150 MG CAPSULE PO (08:04)
[2019-01-11] MEDS: Doxycycline 100 MG CAPSULE PO ×2 (10:16→21:26)
[2019-01-11] MEDS: oxyCODONE 5 MG Tablet 10 MG PO (10:24)
[2019-01-11 15:21] VITALS: BP 126/66; PULSE 80; RESP 16; TEMP 36; O2SAT 94
[2019-01-11 16:57] VITALS: BP 126/66; PULSE 80
[2019-01-11] MEDS: Acetaminophen 500 MG Tablet 1000 MG PO (17:00)
[2019-01-11] MEDS: Polyethylene Glycol 3350 17 GM PACKET PO (17:03)
[2019-01-11] MEDS: Atorvastatin Calcium 20 MG Tablet PO (21:26)
[2019-01-11] MEDS: traZODone 100 MG Tablet PO (21:26)
[2019-01-12 05:48] LABS: Absolute Lymphocyte Count 1.72 X10^3/ul (0.83-4.51); Absolute Neutrophil Count 7.1 X10^3/uL (2.0-7.7); Basophil# 0.02 X10^3/uL; Basophil% 0.2 % (0-1); Eosinophil# 0.23 X10^3/uL; Eosinophils% 2.3 % (0-5); Hematocrit 35.4 % (37-47); Hemoglobin 11.1 g/dl (12.0-15.0); Lymphocyte # 1.72 X10^3/ul (4.0); Mean Corp Hgb Conc 31.4 g/gl (32-36); Mean Corpuscular Volume 92.4 fL (81-99); Monocyte# 0.97 X10^3/uL; Monocyte% 9.6 % (0-10); Neutrophil # 7.11 X10^3/uL (2.7-7.7); Neutrophil % 70.3 % (47-70); Platelet Count 340 K/mm3 (150-450); RBC Distribution Width CV 15.3 % (11.6-14.6); Red Blood Count 3.83 M/mm3 (4.2-5.4); White Blood Count 10.1 K/mm3 (4.4-11.0)
[2019-01-12 05:50] VITALS: PULSE 78
[2019-01-12] MEDS: Pantoprazole Sodium 40 MG Tablet PO (05:50)
[2019-01-12] MEDS: hydroCHLOROthiazide 25 MG Tablet PO (05:50)
[2019-01-12] MEDS: Metoprolol(XL)Succ 50 MG Tablet PO ×2 (05:50→17:05)
[2019-01-12] MEDS: Cephalexin 500 MG Capsule PO ×2 (05:50→17:05)
[2019-01-12] MEDS: Mirabegron 25 MG TAB.ER.24H PO ×2 (05:50→17:05)
[2019-01-12] MEDS: Sertraline 100 MG Tablet 150 MG PO (05:51)
[2019-01-12] MEDS: APIXABAN 2.5 MG TABLET PO ×2 (05:51→17:05)
[2019-01-12 05:52] LABS: POSITIVE COUNT NO; POSITIVE DIFFERENTIAL NO; POSITIVE MORPHOLOGY NO
[2019-01-12 06:00] LABS: Anion Gap 8 (5-15); BUN 16 mg/dL (7-18); BUN/Creat Ratio 24.1 RATIO (10-20); Chloride 104 mmol/L (98-107); Creatinine, Serum 0.66 mg/dL (0.55-1.02); EST Glomerular Filtration Rate 92 mL/min (>60); Est Glom Filt Rate - Afr Amer 112 mL/min (>60); Estimated Creatinine Clearance 43.27 ml/min; Glucose 93 mg/dL (74-106); Potassium 3.7 mmol/L (3.5-5.1); Sodium Level 142 mmol/L (136-145)
[2019-01-12] MEDS: Aspirin E.C. 81 MG Tablet PO (08:00)
[2019-01-12] MEDS: Iron Polysaccharide Complex 150 MG CAPSULE PO (08:01)
[2019-01-12 09:01] VITALS: PULSE 84; O2SAT 97
[2019-01-12] MEDS: Tuberculin,Purif.prot.deriv. 50 TU/ML Vial 5 ML ID (09:54)
[2019-01-12] MEDS: Doxycycline 100 MG CAPSULE PO ×2 (09:54→20:21)
[2019-01-12] MEDS: Acetaminophen 500 MG Tablet 1000 MG PO ×2 (11:39→20:21)
[2019-01-12 14:54] VITALS: BP 122/61; PULSE 81; RESP 16; TEMP 36.5; O2SAT 95
[2019-01-12 17:05] VITALS: BP 122/61; PULSE 81
[2019-01-12] MEDS: Atorvastatin Calcium 20 MG Tablet PO (20:21)
[2019-01-12] MEDS: traZODone 100 MG Tablet PO (20:21)
[2019-01-13] MEDS: Pantoprazole Sodium 40 MG Tablet PO (08:24)
[2019-01-13] MEDS: APIXABAN 2.5 MG TABLET PO (08:24)
[2019-01-13] MEDS: Mirabegron 25 MG TAB.ER.24H PO (08:25)
[2019-01-13] MEDS: hydroCHLOROthiazide 25 MG Tablet PO (08:25)
[2019-01-13] MEDS: Cephalexin 500 MG Capsule PO (08:25)
[2019-01-13] MEDS: Aspirin E.C. 81 MG Tablet PO (08:30)
[2019-01-13 08:31] VITALS: BP 136/83; PULSE 81
[2019-01-13] MEDS: Metoprolol(XL)Succ 50 MG Tablet PO (08:31)
[2019-01-13] MEDS: Sertraline 100 MG Tablet 150 MG PO (08:32)
[2019-01-13] MEDS: Iron Polysaccharide Complex 150 MG CAPSULE PO (08:32)
[2019-01-13 08:34] VITALS: BP 136/83; PULSE 81
[2019-01-13] MEDS: Acetaminophen 500 MG Tablet 1000 MG PO (08:39)
[2019-01-13] MEDS: traMADol 50 MG Tablet PO (08:40)
[2019-01-13] MEDS: Doxycycline 100 MG CAPSULE PO (10:47)
[2019-01-13] MEDS: oxyCODONE 5 MG Tablet 10 MG PO (11:34)
[2019-01-13 13:56] VITALS: BP 118/70; PULSE 78; RESP 15; TEMP 36.7; O2SAT 96
--- NOTE | 2019-01-15 10:13 | MDS.RN ---
Information for the mds was obtained from review of the clinical record, interview of resident, staff, and direct observation of resident's care.
--- NOTE | 2019-01-15 12:43 | CASEMGMT ---
Insurance Notified insurance of resident discharge date on 01/13/19 to home alone with home health services. Auth#[id number] Migel MALDONADO, [employer]
== END 2019-01-13 12:40 | disposition home health service (06) | DRG 560 ==
PROVIDERS: Admitting Provider Family Medicine Geriatric Medicine; Family Provider Internal Medicine; PCP Internal Medicine; Visit Provider Family Medicine Geriatric Medicine
DX: Z47.1 Aftercare following joint replacement surgery (principal); L03.116 Cellulitis of left lower limb; Z96.652 Presence of left artificial knee joint; I10 Essential (primary) hypertension; E78.5 Hyperlipidemia, unspecified; E55.9 Vitamin D deficiency, unspecified; K21.9 Gastro-esophageal reflux disease without esophagitis; N32.81 Overactive bladder; Z87.891 Personal history of nicotine dependence; F32.9 Major depressive disorder, single episode, unspecified; G43.909 Migraine, unspecified, not intractable, without status migrainosus
CPT/HCPCS: 36415; 80048; 85025; 93970; 97110; 97116; 97163; 97166; 97530; 97535; 97802

== ENCOUNTER → 2019-01-16 | Outpatient (CLI) | payer MEDICARE, MEDICAID, SELFPAY ==
[2019-01-04 15:53] VITALS: BMI 38.2
--- NOTE | 2019-01-16 15:03 | RAD_ITS ---
STUDY: X-RAY - LEFT KNEE REASON FOR EXAM: Pain, 2 weeks postoperative. TECHNIQUE: 4 view(s) of the knee. COMPARISON: Radiographs 01/02/2019. FINDINGS: There is a left total knee arthroplasty without evidence of complication. There is a joint effusion. There is soft tissue swelling. RAD/Knee 4 or More Views IMPRESSION: Uncomplicated left total knee arthroplasty. Joint effusion. Electronically Signed: Galo Corcoran MD at 15:22 EDT Tel , Service support ,
== END | disposition home or self-care (01) ==
LOC: HPRAD 14:56
PROVIDERS: Family Provider Internal Medicine; PCP Internal Medicine; Referring Provider Orthopaedic Surgery; Visit Provider Orthopaedic Surgery
DX: M17.12 Unilateral primary osteoarthritis, left knee (principal)
CPT/HCPCS: 73564

== ENCOUNTER → 2019-01-29 | Outpatient (CLI) | payer MEDICARE, MEDICAID, SELFPAY ==
[2019-01-19 15:17] VITALS: BMI 38.2
[2019-01-29 09:31] LABS: Hematocrit 41.8 % (37-47); Hemoglobin 13.1 g/dl (12.0-15.0); Mean Corp Hgb Conc 31.3 g/gl (32-36); Mean Corpuscular Volume 92.5 fL (81-99); Mean Platelet Vol. 8.7 fl (6.2-12.0); Platelet Count 286 K/mm3 (150-450); RBC Distribution Width CV 15.8 % (11.6-14.6); RBC Distribution Width SD 52.2 fl (35.1-43.9); Red Blood Count 4.52 M/mm3 (4.2-5.4); White Blood Count 8.3 K/mm3 (4.4-11.0)
[2019-01-29 09:33] LABS: Scan Indicated on CBC? Y/N NO
[2019-01-29 09:49] LABS: Anion Gap 8 (5-15); BUN 15 mg/dL (7-18); BUN/Creat Ratio 19.9 RATIO (10-20); Calcium,Total 9.3 mg/dL (8.5-10.1); Chloride 103 mmol/L (98-107); Creatinine, Serum 0.75 mg/dL (0.55-1.02); EST Glomerular Filtration Rate 80 mL/min (>60); Est Glom Filt Rate - Afr Amer 97 mL/min (>60); Glucose 96 mg/dL (74-106); Potassium 3.6 mmol/L (3.5-5.1); Sodium Level 143 mmol/L (136-145)
== END | disposition home or self-care (01) ==
LOC: LAB 09:04
PROVIDERS: Family Provider Internal Medicine; PCP Internal Medicine; Referring Provider Nurse Practitioner Family; Visit Provider Nurse Practitioner Family
DX: E87.6 Hypokalemia (principal); I10 Essential (primary) hypertension; F32.9 Major depressive disorder, single episode, unspecified
CPT/HCPCS: 36415; 80048; 85027

== ENCOUNTER → 2019-03-06 | Outpatient (CLI) | payer MEDICARE, MEDICAID, SELFPAY ==
[2019-03-06 08:16] VITALS: BMI 38.2
--- NOTE | 2019-03-06 08:27 | RAD_ITS ---
STUDY: X-RAY - LUMBAR SPINE REASON FOR EXAM: Female, 73 years old. Back pain. TECHNIQUE: 4 view(s) of the lumbar spine were obtained. COMPARISON: August 28, 2018. FINDINGS: Normal lumbar lordosis. There is a marked levorotoscoliosis of the convexity at L2-3. There is a normal alignment of the vertebrae. Is no alteration in alignment with flexion or extension. There is multilevel endplate spondylosis of the lumbar vertebrae. There is multi-level degenerative disc disease with multi-level disc space narrowing. There is no evidence of acute fracture or loss of vertebral axial height. There is atherosclerotic calcification of the abdominal aorta without a demonstrated aneurysm. RAD/L/S Spine Min 4 Views IMPRESSION: Stable degenerative changes of the lumbar spine. There is no acute fracture or subluxation. Electronically Signed: Luis A Ribeiro DO at 17:00 EDT Tel [phone], Service support ,
== END | disposition home or self-care (01) ==
LOC: HPRAD 08:26
PROVIDERS: Family Provider Internal Medicine; PCP Internal Medicine; Referring Provider Orthopaedic Surgery; Visit Provider Orthopaedic Surgery
DX: M54.9 Dorsalgia, unspecified (principal)
CPT/HCPCS: 72110

== ENCOUNTER → 2019-03-12 | Outpatient (CLI) | payer MEDICARE, MEDICAID, SELFPAY ==
[2019-03-06 08:16] VITALS: BMI 38.2
--- NOTE | 2019-03-12 10:06 | RAD_ITS ---
STUDY: X-RAY - CERVICAL SPINE REASON FOR EXAM: Female, 73 years old. Fall. Balance issues. Pain. TECHNIQUE: 10 view(s) of the cervical spine including lateral flexion and extension views were obtained. COMPARISON: None FINDINGS: Generalized osteopenia. Normal anterior atlantoaxial articulation. Normal odontoid process. Normal cervical lordosis. Limited flexion and extension with no abnormal motion Normal vertebral bodies and endplates. Diffuse intervertebral disc space narrowing with osteophyte formation most marked at C4-5 and C5-6. Diffuse uncovertebral and facet sclerosis. Anterior bony neural foraminal encroachment at C5-6 on the right and C4-5 and C5-6. The soft tissue structures are unremarkable. RAD/Cerv Spine Obl/Flex/Ext Comp IMPRESSION: Osteopenia with limited flexion and extension, no abnormal motion. Diffuse cervical spondylosis as described. No acute finding. Electronically Signed: Yakov Bennett MD at 12:42 EDT , Service support ,
== END | disposition home or self-care (01) ==
LOC: RAD 10:04
PROVIDERS: Family Provider Internal Medicine; PCP Internal Medicine; Referring Provider Psychiatry & Neurology Neurology; Visit Provider Psychiatry & Neurology Neurology
DX: M54.2 Cervicalgia (principal)
CPT/HCPCS: 72052

== ENCOUNTER 2019-04-01 16:41 | Emergency (ER) | payer MEDICARE, MEDICAID, SELFPAY ==
[2019-03-28 07:48] VITALS: BMI 39.1
[2019-04-01 16:43] VITALS: BP 146/78; PULSE 70; RESP 16; TEMP 36.8; O2SAT 97; BMI 39.7
--- NOTE | 2019-04-01 16:54 | CT_ITS ---
HISTORY:FELL BACKWARDS, NO LOC, NO BLOOD THINNERS FELL BACKWARDS, NO LOC, NO BLOOD THINNERS TECHNIQUE: Multiple axial images were obtained of the brain without intravenous contrast. A radiation dose optimization technique was used for this scan. IV Contrast dosage and agent: None. COMPARISON: September 30, 2018 FINDINGS: # of images incl. 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 Chronic changes as discussed similar prior study Individualized dose optimization techniques were used for this CT. at 1729 Reported and signed by: Tracy Callaway DO Electronically Signed: Tracy Callaway DO at 17:27 EDT Tel , Service support ,
--- NOTE | 2019-04-01 16:54 | CT_ITS ---
HISTORY:FELL BACKWARDS, NO LOC, NO BLOOD THINNERS Comparison:, none TECHNIQUE:CT Spine Cervical W/O Contrast Contiguous axial imagers through the cervical spine with sagittal and coronal reconstructions without intravenous contrast A dose optimization technique was used dring the scan # of images including paperwork:[id number] FINDINGS: Straightening of the normal cervical lordosis There is no spondylolethesis of approximately 2 mm anterior spondylolisthesis of C2 on C3 and C3 on C4 The vertebral body heights are preserved. There is decreased disc space at the level of throughout the cervical spine No acute fracture. The canal is narrowed to approximately 8 mm at the level of C5-6 Mild bilateral neuroforaminal narrowing at C4-5 moderate bilaterally at C5-6 moderate on the left at C6-7 The odontoid process and lateral masses are unremarkable. No acute soft tisue abnormality There is no apical pneumothorax CT/Spine Cervical without Contras IMPRESSION: Degenerative changes of the cervical spine without evidence of an acute fracture. Straightening of normal cervical lordosis Mild canal stenosis at the level of C5-6 Individualized dose optimization techniques were used for this CT. at 1731 Reported and signed by: Tracy Callaway DO Electronically Signed: Tracy Callaway DO at 17:30 EDT Tel , Service support ,
--- NOTE | 2019-04-01 16:54 | RAD_ITS ---
HISTORY:LATERAL RIB PAIN S/P FALL LATERAL RIB PAIN S/P FALL EXAMINATION/TECHNIQUE: XR Ribs right Unilateral W/ PA Chest Min 3 Views: 5 views... COMPARISON: Prior chest on September 30, 2018 FINDINGS: LINES/DEVICES: None. LUNGS: No consolidation, edema or effusion. No pneumothorax. MEDIASTINUM AND CARDIOVASCULAR STRUCTURES: Cardiac silhouette not enlarged. Central airways and mediastinal contour are unremarkable. RIBS AND OSSEOUS STRUCTURES: Degenerative changes are seen at the glenohumeral joints bilaterally. No evidence of displaced rib fractures. RAD/Ribs Uni Min 3V w/PA Chest IMPRESSION: No acute pathology at 1744 Reported and signed by: Tracy Callaway DO Electronically Signed: Tracy Callaway DO at 17:42 EDT Tel , Service support ,
--- NOTE | 2019-04-01 16:57 | ED.VIS.GEN ---
History of Present Illness Informant: Patient Onset: Today Context: Gradual Onset Timing: Continuous Current Severity: Moderate Maximum Severity: Moderate Worsened by: movement Relieved by: remaining still Associated Symptoms: Denies LOC, neck or back pain Narrative: Avril is a 73-year-old female who attempted to step up a step and lost her balance. She fell backwards hitting her head. She is complaining of left head contusion and right rib pain. There is no loss of consciousness. She denies feeling lightheaded or dizzy. She has chronic ataxia. She denies neck or back pain or other injury. Prior similar symptoms: Yes Recent Illness/Hospitalization: No <Sabrina Pope - Last Filed: 04/01/19 17:56> <Raimundo Norris - Last Filed: 04/01/19 18:09> Chief Complaint: Fall Past Medical History Past Medical History: - - Ataxia, TIA, hypertension, hyperlipidemia, GERD Surgical History: appendectomy, cholecystectomy, herniorrhaphy, hysterectomy, total knee arthroplasty, - Lives: With Family Smoking Status: Former smoker Alcohol: None Drugs: None <Sabrina Pope - Last Filed: 04/01/19 17:56> <Raimundo Norris - Last Filed: 04/01/19 18:09> - Allergies and Home Meds Allergies/Adverse Reactions: Allergies adhesive tape Allergy (Severe, Verified 03/15/19 15:24) Area Sore cefpodoxime [From Vantin] Allergy (Unknown, Verified 03/15/19 15:24) Unknown codeine Allergy (Unknown, Verified 03/15/19 15:24) Unknown HALLUCINATIONS metronidazole [From Flagyl] Allergy (Unknown, Verified 03/15/19 15:24) Unknown sulfamethoxazole [From Bactrim] Allergy (Unknown, Verified 03/15/19 15:24) Unknown trimethoprim [From Bactrim] Allergy (Unknown, Verified 03/15/19 15:24) Unknown Sulfa (Sulfonamide Antibiotics) Allergy (Verified 03/15/19 15:24) Unknown Primary Care Physician: Yashira Hughes MD [Primary Care Provider] - Review of Systems All systems negative except as indicated General: Denies: Chills, Fever, Sweats Eyes: Denies: Visual changes - left, Visual changes - right, Visual changes - bilaterally, Blurred vision - left, Blurred vision - right, Blurred Vision - bilaterally, Diplopia ENT: Denies: Rhinorrhea, Sore throat Cardiovascular: Reports: - - Right rib pain. Denies: Chest pain, Palpitations Respiratory: Denies: Dyspnea, Cough, Dyspnea on exertion Gastrointestinal: Denies: Abdominal pain, Nausea, Vomiting, Diarrhea, Melena, Hematochezia Genitourinary: Denies: Dysuria, Hematuria, Frequency Musculoskeletal: Denies: Neck pain, Back pain, Extremity Pain Skin: Denies: Rash, Wounds Neurological: Denies: Headache, Weakness, Numbness <NikoSabrina - Last Filed: 04/01/19 17:56> Physical Exam Vital Signs/Narrative: Vital Signs Temp Pulse Resp BP Pulse Ox 04/01/19 16:43 98.2 F 70 16 146/78 H 97 Inital Vital Signs reviewed: Yes General: Well nourished, Well developed, No Acute Distress Head: Normocephalic, Trauma, Tenderness, - - Wall contusion to left parietal scalp without abrasion or laceration. Eyes: Perrl, EOMI ENT: Moist mucous membranes, No rhinorrhea, TM's clear Neck: Supple, Nontender Cardiovascular: Regular rate, Regular rhythm, No murmurs Respiratory: No distress, CTA bilaterally, Chest tenderness, - - Right lateral rib tenderness to palpation. No crepitus or obvious deformity or bruising. Skin intact. Abdomen: Soft, Nontender, Nondistended, Normal bowel sounds Back: Nontender, Normal Inspection Extremities: Nontender, No edema Skin: Normal color, No rash Neurological: Alert, Oriented x3, Cranial nerves II-XII grossly intact, Normal Strength, Normal Sensation Psychological: Normal affect, Normal Mood <TinkeyanaSabrina - Last Filed: 04/01/19 17:56> Vital Signs/Narrative: Vital Signs Temp Pulse Resp BP Pulse Ox 04/01/19 16:43 98.2 F 70 16 146/78 H 97 <Raimundo Norris - Last Filed: 04/01/19 18:09> Diagnostic/Tx/Re-eval Rib x-rays: CT noncontrast head and cervical spine: Diagnostic Data Brain CT 04/01/19 16:54 IMPRESSION: No acute intracranial pathology. Chronic changes as discussed similar prior study Individualized dose optimization techniques were used for this CT. at 1729 Reported and signed by: Tracy Callaway DO Electronically Signed: Tracy Callaway DO at 17:27 EDT Tel , Service support , Cervical Spine CT 04/01/19 16:54 IMPRESSION: Degenerative changes of the cervical spine without evidence of an acute fracture. Straightening of normal cervical lordosis Mild canal stenosis at the level of C5-6 Individualized dose optimization techniques were used for this CT. at 1731 Reported and signed by: Tracy Callaway DO Electronically Signed: Tracy Callaway DO at 17:30 EDT Tel , Service support , Ribs w/Chest X-Ray 04/01/19 16:54 IMPRESSION: No acute pathology at 1744 Reported and signed by: Tracy Callaway DO Electronically Signed: Tracy Callaway DO at 17:42 EDT Tel , Service support , Diagnostic Data Brain CT 04/01/19 16:54 IMPRESSION: No acute intracranial pathology. Chronic changes as discussed similar prior study Individualized dose optimization techniques were used for this CT. at 1729 Reported and signed by: Tracy Callaway DO Electronically Signed: Tracy Callaway DO at 17:27 EDT Tel , Service support , Cervical Spine CT 04/01/19 16:54 IMPRESSION: Degenerative changes of the cervical spine without evidence of an acute fracture. Straightening of normal cervical lordosis Mild canal stenosis at the level of C5-6 Individualized dose optimization techniques were used for this CT. at 1731 Reported and signed by: Tracy Callaway DO Electronically Signed: Tracy Callaway DO at 17:30 EDT Tel , Service support , Ribs w/Chest X-Ray 04/01/19 16:54 IMPRESSION: No acute pathology at 1744 Reported and signed by: Tracy Callaway DO Electronically Signed: Tracy Callaway DO at 17:42 EDT Tel , Service support , - Medical Decision Making She has a history of chronic ataxia. This was a mechanical fall. Because of her left scalp contusion and mechanism of injury a CT of head and neck was ordered. She has right rib tenderness without crepitus and x-rays were ordered: She had no signs of respiratory distress. She remained neurologically intact and hemodynamically stable. She declined pain medication. Imaging was negative for acute injury pattern. She has incentive spirometer at home and knows how to use it. She was instructed to use Tylenol and ice for pain. She will use her cane or walker to ambulate with continued balance therapy. She remained neurologically intact and is discharged in stable condition. <Sabrina Pope - Last Filed: 04/01/19 17:56> - Medical Decision Making I saw the patient same time as the nurse practitioner. She has a history of balance issues. She lost her balance on stairs today. She hit her head and complains of a bump. She also complains of right rib pain. Patient has a hematoma to her scalp. Neck is nontender. HEENT exam otherwise normal. Heart regular. Lungs clear. Right chest tender to palpation inferiorly. Abdomen soft and nontender. Back is nontender. Extremities atraumatic. Imaging was all unremarkable for anything acute. Patient will be discharged. Follow-up with primary care. <Raimundo Norris - Last Filed: 04/01/19 18:09> ED Disposition <Sabrina Pope - Last Filed: 04/01/19 17:56> <Raimundo Norris - Last Filed: 04/01/19 18:09> - Plan for ED Patient: Disposition: Home or Assisted Living Diagnosis: Rib injury, Scalp contusion Instructions: FALL, Mechanical Referrals: Yashira Hughes MD [Primary Care Provider] -
[2019-04-01 18:11] VITALS: BP 131/74; PULSE 62; RESP 15; O2SAT 96
== END 2019-04-01 18:13 | disposition home or self-care (01) ==
PROVIDERS: Emergency Provider Nurse Practitioner; Family Provider Internal Medicine; PCP Internal Medicine
DX: S00.03XA Contusion of scalp, initial encounter (principal); S29.9XXA Unspecified injury of thorax, initial encounter; W19.XXXA Unspecified fall, initial encounter; Y93.9 Activity, unspecified; Y92.9 Unspecified place or not applicable; R27.0 Ataxia, unspecified; M48.02 Spinal stenosis, cervical region; I10 Essential (primary) hypertension; E78.5 Hyperlipidemia, unspecified; K21.9 Gastro-esophageal reflux disease without esophagitis; Z86.73 Personal history of transient ischemic attack (TIA), and cerebral infarction without residual deficits; Z79.82 Long term (current) use of aspirin; Z79.899 Other long term (current) drug therapy; Z87.891 Personal history of nicotine dependence
CPT/HCPCS: 70450; 71101; 72125; 99284

== ENCOUNTER 2019-05-21 10:00 | Outpatient (RCR) | payer MEDICARE, MEDICAID, SELFPAY ==
--- NOTE | 2019-01-31 10:57 | HP.PTEVAL ---
Patient's Visit Information VANESSA KLINE is a 73 year old F referred to Physical Therapy by Jaquelin Murdock DO with a diagnosis of Left TKR. Date of Evaluation: 01/31/19 Physical Therapist: Annika Wynne DPT - Visit Plan Frequency: 2x /Week Duration: 4 Weeks Plan: Left TKR 01/02/19- Focus on LE and core strength/stabilization with proprioception and functional mobility. HEP Given 01/31 including- quad set, SLR, heel slide supine, seated extension stretch, stading with support marching/hip abd/hip extn and SLS. - Subjective Findings: Patient reports that she had a right TKR 5 years ago and then the left one was done january 02, [address] Tao at [facility]. Stayed at the hospital for 2 days- then went to TCU. Was on TCU for 6 days and then went home and had home health. Last night she slept in her own bed- sleep through the night with a pillow under her knees. Lives in a senior apartment- no stairs to enter- lives alone. Does not drive- but she was fully I prior to surgery. Pain at the worst in the last 48 hours was 4/10 She fell last night and bumped it which made it sore. Agg: standing to long, walking to far. Best: 0/10 Eases: ice, getting off of it, salve (was cleared to use by the nurse). Pain located on the lateral apect and towards the back. No radiating pain. Reports the pain is dull and achy. Does have Numbness in toes but she has neuropathy- had back surgery in 1977 and 1997. Goals: get back to all normal activites. Uses a rollerator currently. Was using a cane prior to surgery. Only uses the walker when she is in the community. PMHx/Meds: no change since leaving TCU. Feels that she is 50% back to normal. - Objective Posture: FH, RS- can correct with verbal cues. Gait: with rollerator smooth bonita and step through pattern. Without AD- mild decreased stance on the left LE with decreased heel strike. Stairs: asc recip with 2 HR and significant UE A use. Descend non recip with 2 HR. SLS: 3 seconds then requires UE A for righting. HR/TR: WFL with UE A. Sensation: WNL. Palpation: tender along lateral side of the knee. Observation: no bruising- incision healed well- no s/s of infection. Edema: slight. ROM: 15-105 degrees without overpressure. Strength: Ankle: 5/5, Knee: 4+/5 in sitting- quad set is visible bot not strong due to lack of ROM, Hip: 4/5 througout Core: fair. Sensation:WNL to gross touch. Flex: Hamstring: severe, Gastroc: moderate - Goals Goal 1:: Patient will be I with HEP and progression Goal Time Frame: 4-6 Weeks Goal 2:: Patient will demo 0-115 degrees of ROM Goal Time Frame: 4-6 Weeks Goal 3:: Patient will asc/desc 8 recip with 1 HR Goal Time Frame: 4-6 Weeks Goal 4:: Patient will ambulate >300 feet with LRD safely. Goal Time Frame: 4-6 Weeks Goal 5:: Patient will SLS for 5 seconds Goal Time Frame: 4-6 Weeks - Rehabilitation Potential Physical Therapy Diagnosis: Patient presents with hypomobility- she has decreased ROM, strength and muscular endurance s/p left TKR leading to abnormal gait and decreased functional mobility Rehabilitation Potential: Good - Anticipated Interventions Patient/Client Instruction: Educate patient on: Benefits of Fitness Program Therapeutic Exercise to Include: Strength training, Endurance training, Balance training, Agility training, Body mechanics, Postural training, Flexibilty training, Gait and locomotor training, Passive ROM, Active ROM, Dynamic Lumbar Stabilization For the Purpose of:: To improve muscle performance and motor function TENS: Yes Cryotherapy (ice pack, ice massage): Yes Thermo therapy (hot pack): Yes Ultrasound (thermal/non thermal): No For the Purpose of:: To decrease pain Thank you for the opportunity to evaluate your patient. For Medicare and Medicare HMO plans, please review the plan of care and approve it. It will need to be FAXED BACK to us at [phone] for Medicare purposes. For Medicare only, by signing this I certify the plan of care. Please let me know if there are questions or concerns regarding this plan of care. Physician Signature: Date:
--- NOTE | 2019-03-09 11:01 | HP.PTDCSUM ---
HP - PT D/C Summary It has been my pleasure to treat VANESSA KLINE under orders from Jaquelin Murdock DO, for the diagnosis of Left TKR for a total of 9 visit(s). Discharge Date: Please see the following information for a summary of their discharge status. - Subjective Subjective: Patient reports that the knee is doing great. It sometimes it gets stiff- but the fluid is down and is much better. Only uses the cane when she is out in he community for safety- does not use the cane at home. Patient feels that she si 95% better. No pain at this time - Pain L knee Pain Intensity (Out of 10): 2 - Overall Improvement % Improvement: 95 - Objective Objective/Function: Posture: FH, RS- can correct with verbal cues. Gait: no AD- mild hip drop. Stairs: asc/desc recip with 1 HR- does use UE for A for propulsion. SLS: 4 seconds then requires UE A for righting. HR/TR: WFL with UE A. Sensation: WNL. Palpation: not tender Observation: no bruising- incision healed well- no s/s of infection. Edema: slight. ROM: 0-125 degrees without overpressure. Strength: Ankle: 5/5, Knee: 5/5 in sitting Hip: 4+/5 througout Core: fair. Sensation:WNL to gross touch. Flex: Hamstring: moderate, Gastroc: moderate - Goals Goal 1:: Patient will be I with HEP and progression Goal Progress: Goal Met Goal 2:: Patient will demo 0-115 degrees of ROM Goal Progress: Goal Met Goal 3:: Patient will asc/desc 8 recip with 1 HR Goal Progress: Goal Met Goal 4:: Patient will ambulate >300 feet with LRD safely. Goal Progress: Goal Met Goal 5:: Patient will SLS for 5 seconds Goal Progress: Progressing - Plan Plan: Discharge to home exercise program. - D/C Information If there are questions or concerns regarding this patient's physical therapy, please feel free to call me at [phone]. Thank you for the referral of this patient. Sincerely, Annika Wynne DPT
--- NOTE | 2019-03-09 12:03 | HP.PTEVAL2 ---
Patient's Visit Information VANESSA KLINE is a 73 year old F referred to Physical Therapy by Jaquelin Murdock DO with a diagnosis of unsteadiness on her feet. Date of Evaluation: 03/09/19 Physical Therapist: JOHN Vernon - Visit Plan Frequency: 2x /Week Duration: 4 Weeks Plan: Test on NeuroCOm when up and running as it is broken at this time. 2X/ week 3-4 weeks for vestibular input, gait training with and without head turns, functiional activities with HEP - Subjective Findings: Pt went to Dr Rodriguez for evaluation and she was standing in her closet and hanging clothes and she fell backwards. He is ordering an x-ray of her neck. He thought that she should check in with her balance. She is not having other balance issues. She was using the cane all the time.... does not use it in the house. She uses it to get in and out of the van etc. She has no stairs in her home. - Objective Objective: Gait: Pt walks with normal gait pattern with occ veering without AD. LE MMT: overall functional LE strength good. pt is able to heel and toe raise. CATSIB: 88. FGA: 17. Pt needs UE support to sit to stand - Balance Scores Functional Gait Assessment Score: 17 % Disability: 43.3400 CATSIB Score (Max score 120 seconds): 88 - Goals Goal 1:: I HEP Goal Time Frame: 4-6 Weeks Goal 2:: Increase CATSIB by 15 points to increase balance ( 103) Goal Time Frame: 4-6 Weeks Goal 3:: INCREASE FGA by 5 points to decrease fall risk ( score of 17 at time of eval). Goal Time Frame: 4-6 Weeks Goal 4:: Test pt on the NeuroCom once it is up and running if needed. - Rehabilitation Potential Rehabilitation Potential: Good - Anticipated Interventions Thank you for the opportunity to evaluate your patient. For Medicare and Medicare HMO plans, please review the plan of care and approve it. It will need to be FAXED BACK to us at [phone] for Medicare purposes. For Medicare only, by signing this I certify the plan of care. Please let me know if there are questions or concerns regarding this plan of care. Physician Signature: Date:
[2019-04-11 08:50] VITALS: BMI 39.7
--- NOTE | 2019-04-17 14:37 | HP.PTREVAL ---
Jaquelin Murdock, DO, It has been my pleasure to treat VANESSA KLINE over the last 9 visits for Left TKR. Please see the progress note below for an update on the physical therapy plan of care! Subjective: Patient reports that the knee is doing great. It sometimes it gets stiff- but the fluid is down and is much better. Only uses the cane when she is out in he community for safety- does not use the cane at home. Patient feels that she si 95% better. No pain at this time Objective/Function: Posture: FH, RS- can correct with verbal cues. Gait: no AD- mild hip drop. Stairs: asc/desc recip with 1 HR- does use UE for A for propulsion. SLS: 4 seconds then requires UE A for righting. HR/TR: WFL with UE A. Sensation: WNL. Palpation: not tender Observation: no bruising- incision healed well- no s/s of infection. Edema: slight. ROM: 0-125 degrees without overpressure. Strength: Ankle: 5/5, Knee: 5/5 in sitting Hip: 4+/5 througout Core: fair. Sensation:WNL to gross touch. Flex: Hamstring: moderate, Gastroc: moderate Plan Plan: Discharge to I home exercise program. Goals Goal 1:: Patient will be I with HEP and progression Goal Time Frame: 4-6 Weeks Goal Progress: Goal Met Goal 2:: Patient will demo 0-115 degrees of ROM Goal Time Frame: 4-6 Weeks Goal Progress: Goal Met Goal 3:: Patient will asc/desc 8 recip with 1 HR Goal Time Frame: 4-6 Weeks Goal Progress: Goal Met Goal 4:: Patient will ambulate >300 feet with LRD safely. Goal Time Frame: 4-6 Weeks Goal Progress: Goal Met Goal 5:: Patient will SLS for 5 seconds Goal Time Frame: 4-6 Weeks Goal Progress: Progressing Anticipated Interventions Patient/Client Instruction: Educate patient on: Benefits of Fitness Program Therapeutic Exercise to Include: Strength training, Endurance training, Balance training, Agility training, Body mechanics, Postural training, Flexibilty training, Gait and locomotor training, Passive ROM, Active ROM, Dynamic Lumbar Stabilization For the Purpose of:: To improve muscle performance and motor function TENS: Yes Cryotherapy (ice pack, ice massage): Yes Thermo therapy (hot pack): Yes Ultrasound (thermal/non thermal): No For the Purpose of:: To decrease pain Please do not hesitate to contact me at [phone] by phone or if you have questions or concerns regarding this new plan of care! Sincerely, Dulce Maria Lance, MPT
--- NOTE | 2019-04-23 10:40 | HP.PTCOM ---
PT Communication Note 04/23/[address] Jaquelin Murdock, DO , Thank you for the referral of Avril to [facility] for balance assessment. i have enclosed a copy of the results for your review. In summation, she scored low on the vestibular portion of the Sensory Organization Test. She scored low on excursion on the Limits of Stability Test. She scored normal on the Motor Control test. With these results in mind, I plan to see Avril for 2-3 more visits to progress appropriate HEP and follow up down the road after she has shown senior living compliance. Please do not heistate to call if there are questions. Sincerely, CROW CruzT, OCS, CSCS Contact Information
--- NOTE | 2019-05-21 10:32 | HP.PTDCS(2) ---
HP - PT D/C Summary (2) It has been my pleasure to treat VANESSA KLINE under orders from Jaquelin Murdock DO, for the diagnosis of unsteadiness on her feet for a total of 10 visit(s). Discharge Date: 05/21/19 Please see the following information for a summary of their discharge status. - Subjective Subjective: Pt reports that she is doing her leg stretches that she was given before... standing at the kitchen sink. Pt does not do foam exercises at home due to fear of falling. - Overall Improvement % Improvement: 90 - Objective Objective/Function/Assessment: FGA 18. CATSIB 110. Gait: Walks with a normal gait pattern - Goals Patient Goals: Improve Mobility, Improve Function Goal 1:: I HEP Goal Progress: Goal Met Goal 2:: Increase CATSIB by 15 points to increase balance ( 103) Goal Progress: Goal Met Goal 3:: INCREASE FGA by 5 points to decrease fall risk ( score of 17 at time of eval). Goal Progress: Goal Met Goal 4:: Test pt on the NeuroCom once it is up and running if needed. Goal Progress: Goal Met Goal 5:: I approp EHP for baalnce based on neurocom results Goal Progress: NEW GOAL - Plan Plan: DC PT to HEP - D/C Information Discharge Comments: DC PT to HEP If there are questions or concerns regarding this patient's physical therapy, please feel free to call me at [phone]. Thank you for the referral of this patient. Sincerely, Dulce Maria Lance, MPT
== END 2019-05-21 13:34 | disposition home or self-care (01) ==
LOC: PT 10:00
PROVIDERS: Family Provider Internal Medicine; PCP Internal Medicine; Referring Provider Orthopaedic Surgery; Visit Provider Orthopaedic Surgery
DX: Z96.652 Presence of left artificial knee joint (principal)
CPT/HCPCS: 97110; 97116; 97161; 97164; 97530; 97750

== ENCOUNTER → 2019-07-02 12:51 | Outpatient (CLI) | payer MEDICARE, MEDICAID, SELFPAY ==
[2019-06-14 14:03] VITALS: BMI 39.7
[2019-07-02 13:54] LABS: Anion Gap 2 (5-15); BUN 13 mg/dL (7-18); BUN/Creat Ratio 17.6 RATIO (10-20); Calcium,Total 9.3 mg/dL (8.5-10.1); Chloride 101 mmol/L (98-107); Creatinine, Serum 0.74 mg/dL (0.55-1.02); EST Glomerular Filtration Rate 82 mL/min (>60); Est Glom Filt Rate - Afr Amer 99 mL/min (>60); Glucose 80 mg/dL (74-106); Potassium 3.1 mmol/L (3.5-5.1); Sodium Level 138 mmol/L (136-145)
== END ==
PROVIDERS: Family Provider Internal Medicine; PCP Internal Medicine; Referring Provider Internal Medicine; Visit Provider Internal Medicine
DX: I10 Essential (primary) hypertension (principal)
CPT/HCPCS: 36415; 80048

== ENCOUNTER → 2019-07-13 11:45 | Outpatient (CLI) | payer MEDICARE, MEDICAID, SELFPAY ==
[2019-07-13 11:03] VITALS: BMI 37.3
[2019-07-13 13:58] LABS: Anion Gap 3 (5-15); BUN 15 mg/dL (7-18); BUN/Creat Ratio 17.5 RATIO (10-20); Calcium,Total 8.7 mg/dL (8.5-10.1); Chloride 103 mmol/L (98-107); Creatinine, Serum 0.86 mg/dL (0.55-1.02); EST Glomerular Filtration Rate 69 mL/min (>60); Est Glom Filt Rate - Afr Amer 84 mL/min (>60); Glucose 92 mg/dL (74-106); Potassium 3.2 mmol/L (3.5-5.1); Sodium Level 139 mmol/L (136-145)
== END ==
PROVIDERS: Family Provider Internal Medicine; PCP Internal Medicine; Visit Provider Internal Medicine
DX: I10 Essential (primary) hypertension (principal)
CPT/HCPCS: 36415; 80048

== ENCOUNTER → 2019-07-27 07:45 | Outpatient (CLI) | payer MEDICARE, MEDICAID, SELFPAY ==
[2019-07-13 11:03] VITALS: BMI 37.3
--- NOTE | 2019-07-27 07:49 | BI_ITS ---
MAMMOGRAPHY - BILATERAL SCREENING REASON FOR EXAM: Female, 74 years old. Routine annual screening examination. PERTINENT HISTORY: Sister with breast cancer. TECHNIQUE: Digital bilateral breast arielle (3D mammographic acquisition) in the CC and MLO projections. 2-D mediolateral oblique (MLO) and craniocaudad (CC) views of both breasts were obtained. CAD: Full Field Digital Mammography with Computer Added Detection was performed. COMPARISON: Comparison is made with prior outside examination of July 05, 2018. FINDINGS: Breast Composition: The breasts are almost entirely fatty. There are no dominant masses or suspicious calcifications. Stable calcified nodule in the central lateral anterior aspect of the left breast suggestive of a calcified fibroadenoma. No other significant abnormalities are identified. There has been no significant change since the prior study. BI/SCREEN MAMM (CAD) W/ARIELLE BILAT IMPRESSION: Stable bilateral screening mammogram. Yearly follow-up mammogram recommended. (A) ASSESSMENT CATEGORY: BIRADS Category 2: Benign. A letter regarding these results will be sent to the patient by the facility within 30 days. Approximately 10% of breast cancers are not detected by mammography. A normal mammogram should not delay biopsy of a clinically suspicious abnormality. [id number] Electronically Signed: Marco A Do, at 9:56 EST , Service support ,
== END ==
PROVIDERS: Family Provider Internal Medicine; PCP Internal Medicine; Referring Provider Internal Medicine; Visit Provider Internal Medicine
DX: Z12.31 Encounter for screening mammogram for malignant neoplasm of breast (principal)
CPT/HCPCS: 77063; 77067

== ENCOUNTER → 2019-09-25 12:15 | Outpatient (CLI) | payer MEDICARE, MEDICAID, SELFPAY ==
[2019-09-10 12:29] VITALS: BMI 39.7
--- NOTE | 2019-09-25 12:20 | BD_ITS ---
STUDY: DUAL ENERGY X-RAY ABSORPTIOMETRY / DXA REASON FOR EXAM: Female, 74 years old. Age of billy- 34 total hysterectomy. Pat is 204.8# and 62 and quot; a loss of 4 and quot; per pat. Past hx of smoking. Used an inhaler yrs. ago. Past use of an HRT but for a short time. She gets steroid injections for pain. She takes diuretics. Takes a multi-vit. Hx of lumbar surgery x 3 times. Does not exercise. TECHNIQUE: Bone Mineral Density (BMD) measurements of lumbar spine and bilateral hips were obtained. COMPARISON: None. FINDINGS: Lumbar Spine (L1-L4): g/cm2 (1.289) / T-score (1.0) / Z-score (2.8) Findings are suggestive of normal bone density with a low fracture risk. Left Femur Total: g/cm2 (1.073) / T-score (0.5) / Z-score (2.2) Left Femoral Neck: g/cm2 (0.960) / T-score (-0.6) / Z-score (1.3) Right Femur Total: g/cm2 (1.054) / T-score (0.4) / Z-score (2.1) Right Femoral Neck: g/cm2 (0.938) / T-score (-0.7) / Z-score (1.2) BD/Dexa Bone Density Study IMPRESSION: The patient is considered normal as outlined below according to World Joshua Organization (WHO) criteria with a low fracture risk. Reference Information: The T-score is the number of standard deviations above or below the standard which is normal for young adults at their peak bone mineral density. The World Health Organization (WHO) interprets the T-scores as follows: Above -1 Normal bone density Between -1 and -2.5 Osteopenia Equal to / or below -2.5 Osteoporosis As a practical clinical guideline, osteopenia may be graded as follows: Mild -1 through -1.5 Moderate -1.6 through -2.0 Severe -2.1 through -2.4 The Z-score is the number of standard deviations above or below age-matched controls. A Z-score of less than -1.5 would be considered abnormal. References: 1. NIH Osteoporosis and Related Bone Diseases http://www.osteo.org 2. International Society for Clinical Densitometry http://www.iscd.org 3. National Osteoporosis Foundation http://www.nof.org Electronically Signed: Marco A Do, at 13:40 EST , Service support ,
== END ==
PROVIDERS: PCP Internal Medicine; Referring Provider Internal Medicine; Visit Provider Internal Medicine
DX: Z78.0 Asymptomatic menopausal state (principal)
CPT/HCPCS: 77080

== ENCOUNTER → 2019-11-21 11:46 | Outpatient (CLI) | payer MEDICARE, MEDICAID, SELFPAY ==
[2019-09-10 12:29] VITALS: BMI 39.7
== END ==
PROVIDERS: PCP Internal Medicine; Referring Provider Nurse Practitioner Family; Visit Provider Nurse Practitioner Family
DX: R05 Cough (principal); Z20.828 Contact with and (suspected) exposure to other viral communicable diseases
CPT/HCPCS: 87635; G2023; U0004

== ENCOUNTER → 2019-11-23 09:55 | Outpatient (CLI) | payer MEDICARE, MEDICAID, SELFPAY ==
[2019-11-20 15:48] VITALS: BMI 39.7
--- NOTE | 2019-11-23 09:57 | RAD_ITS ---
STUDY: X-RAY CHEST REASON FOR EXAM: Female, 74 years old. COUGH, CONGESTION X 2 WKS, NEG COVID TEST TECHNIQUE: PA and lateral views of the chest. COMPARISON: Comparison is made with prior studies of April 01, 2019. FINDINGS: The lungs are clear and expanded. There is no demonstrated pleural abnormality. Normal size heart. Normal mediastinum and thai. Normal visualized pulmonary arteries. There is atherosclerotic calcification of the aortic arch with tortuosity. There are diffuse degenerative changes of the visualized thoracic spine. Mild dextroscoliosis. There is degenerative osteoarthritis of the bilateral shoulders. There is no demonstrated abnormality of the visualized soft tissue structures of the upper abdomen. RAD/Chest PA and Lateral IMPRESSION: No acute abnormality is seen. Electronically Signed: Marco A Do, at 12:21 EDT , Service support ,
== END ==
PROVIDERS: PCP Internal Medicine; Referring Provider Nurse Practitioner Family; Visit Provider Nurse Practitioner Family
DX: R05 Cough (principal)
CPT/HCPCS: 71046

== ENCOUNTER → 2020-01-28 11:14 | Outpatient (CLI) | payer MEDICARE, SELFPAY ==
[2019-12-19 17:39] VITALS: BMI 38.0
[2020-01-28 12:27] LABS: AST(SGOT) 35 U/L (15-37); Alanine Aminotransfer ALT/SGPT 52 U/L (13-56); Albumin, Serum 3.8 g/dL (3.2-5.0); Alkaline Phosphatase 95 U/L (45-117); Anion Gap 4 (5-15); BUN 18 mg/dL (7-18); BUN/Creat Ratio 20.4 RATIO (10-20); Calcium,Total 9.1 mg/dL (8.5-10.1); Chloride 102 mmol/L (98-107); Creatinine, Serum 0.88 mg/dL (0.55-1.02); EST Glomerular Filtration Rate 66 mL/min (>60); Est Glom Filt Rate - Afr Amer 80 mL/min (>60); Globulin 3.9 g/dL (2.2-4.2); Glucose 82 mg/dL (74-106); Potassium 3.6 mmol/L (3.5-5.1); Protein, Total 7.7 g/dL (6.4-8.2); Sodium Level 139 mmol/L (136-145)
== END ==
PROVIDERS: PCP Internal Medicine; Referring Provider Internal Medicine; Visit Provider Internal Medicine
DX: I10 Essential (primary) hypertension (principal); E87.6 Hypokalemia
CPT/HCPCS: 36415; 80053

== ENCOUNTER → 2020-03-10 13:50 | Outpatient (CLI) | payer MEDICARE, MEDICAID, SELFPAY ==
[2020-03-10 07:50] VITALS: BMI 38.2
--- NOTE | 2020-03-10 13:59 | RAD_ITS ---
STUDY: X-RAY - LEFT KNEE REASON FOR EXAM: Female, 74 years old. PAIN IN LEFT KNEE. PATIENT STATES HAD A LEFT KNEE REPLACEMENT IN DECEMBER OF 2018. NO KNOWN RECENT INJURY. TECHNIQUE: 4 view(s) of the knee. COMPARISON: 2019 FINDINGS: Stable appearance of the replaced left knee joint. Components demonstrate anatomic alignment. No plain film evidence of hardware complication, failure, or acute traumatic abnormality. RAD/Knee 4 or More Views IMPRESSION: Replaced left knee joint free of complication Electronically Signed: Yehuda Marin MD at 15:44 EDT , Service support ,
== END ==
PROVIDERS: PCP Internal Medicine; Referring Provider Orthopaedic Surgery; Visit Provider Orthopaedic Surgery
DX: Z96.652 Presence of left artificial knee joint (principal)
CPT/HCPCS: 73564

== ENCOUNTER → 2020-03-11 10:35 | Outpatient (CLI) | payer MEDICARE, MEDICAID, SELFPAY ==
[2020-03-10 07:50] VITALS: BMI 38.2
--- NOTE | 2020-03-11 10:40 | RAD_ITS ---
STUDY: X-RAY - PELVIS AND BILATERAL HIPS REASON FOR EXAM: Female, 74 years old. BILATERAL HIP PAIN, LEFT WORSE THAN RIGHT, NKI TECHNIQUE: AP view of the pelvis.? 2 views of the right hip, and 2 views of the left hip were obtained. COMPARISON: None. FINDINGS: There is a non-specific bowel gas pattern. Normal visualized soft tissue structures. There is narrowing with cortical sclerosis and osteophyte formation of the sacroiliac joint consistent with degenerative osteoarthritic changes. Normal bilateral superior and inferior pubic rami. Normal pubic symphysis. Normal bilateral ischial tuberosities. Normal visualized right femoral head. Normal right acetabulum. There is moderate articular joint space narrowing of the right hip. Normal visualized left femoral head. Normal left acetabulum. There is moderate articular joint space narrowing of the left hip. RAD/Hips B/L min 2 views w/ Pelvis IMPRESSION: Age consistent degenerative changes, no acute findings Electronically Signed: Yehuda Marin MD at 11:39 EDT , Service support ,
== END ==
PROVIDERS: PCP Internal Medicine; Referring Provider Anesthesiology Pain Medicine; Visit Provider Anesthesiology Pain Medicine
DX: M16.0 Bilateral primary osteoarthritis of hip (principal)
CPT/HCPCS: 73521

== ENCOUNTER 2020-07-04 11:04 | Day surgery (SDC) | payer MEDICARE, SELFPAY ==
[2020-04-23 14:03] VITALS: BMI 38.2
[2020-07-04] VITALS (9 sets, daily range): BP systolic 110–178; BP diastolic 71–92; PULSE 68–76; RESP 16–20; TEMP 36.2–36.5; O2SAT 93–100; BMI 40.4
[2020-07-04] MEDS: Vancomycin IV 1,000 MG/200 ML BAG 200 MG IV (11:49)
[2020-07-04] MEDS: Lactated Ringers 1,000 ML 100 ML IV (11:50)
--- NOTE | 2020-07-04 12:50 | RAD_ITS ---
PROCEDURE: Spinal cord stimulator placement. DATE OF EXAMINATION: 07/04/2020 INDICATION: Female, 75 years old. Chronic back pain. FLUOROSCOPY TIME (if supplied): (12 minutes and 19 seconds) minutes/seconds Intraoperative imaging provided for spinal cord stimulator placement. RAD/Lumbar Spine 2 or 3 Views IMPRESSION: Intraoperative imaging provided for spinal cord stimulator placement. The tip of the electrodes is at the T8 level. Electronically Signed: Marco A Do, at 10:50 EST , Service support ,
[2020-07-04] MEDS: Bupiv/Epi 0.25% 30 ML Vial (13:15)
== END 2020-07-04 17:38 | disposition home or self-care (01) ==
LOC: SDC 11:04 → AC 11:05
PROVIDERS: PCP Internal Medicine; Referring Provider Anesthesiology Pain Medicine; Visit Provider Anesthesiology Pain Medicine
PROC: (CPT 63685; principal; 2020-07-04 12:35)
DX: M54.5 Low back pain (principal); G89.29 Other chronic pain; M51.16 Intervertebral disc disorders with radiculopathy, lumbar region; M51.17 Intervertebral disc disorders with radiculopathy, lumbosacral region; M48.061 Spinal stenosis, lumbar region without neurogenic claudication; M96.1 Postlaminectomy syndrome, not elsewhere classified; Z20.828 Contact with and (suspected) exposure to other viral communicable diseases; I10 Essential (primary) hypertension; Z79.82 Long term (current) use of aspirin; Z79.891 Long term (current) use of opiate analgesic; Z79.899 Other long term (current) drug therapy; Z87.891 Personal history of nicotine dependence
CPT/HCPCS: 00300; 63650 ×2; 63685; 95972; 72100; 76000; 87426; C1778; C1820; C9803; J7120; J2405; J3490

== ENCOUNTER → 2020-08-08 11:34 | Outpatient (CLI) | payer MEDICARE, MEDICAID, SELFPAY ==
[2020-08-08 10:56] VITALS: BMI 40.2
[2020-08-08 12:26] LABS: Absolute Lymphocyte Count 1.76 X10^3/uL (0.83-4.51); Basophil# 0.03 X10^3/uL; Basophil% 0.3 % (0-1); Eosinophil# 0.26 X10^3/uL; Eosinophils% 2.6 % (0-5); Hematocrit 41.3 % (37-47); Hemoglobin 12.7 g/dL (12.0-15.0); Lymphocyte # 1.76 X10^3/ul (4.0); Lymphocyte % 17.7 % (19-41); Mean Corp Hgb Conc 30.8 g/dL (32-36); Mean Corpuscular Hgb 27.7 pg (27.0-32.0); Mean Platelet Vol. 9.6 fl (6.2-12.0); NRBC Flagged by Analyzer 0 % (0-5); Neutrophil # 6.95 X10^3/uL (2.7-7.7); Neutrophil % 69.8 % (47-70); Platelet Count 273 K/mm3 (150-450); RBC Distribution Width CV 14.4 % (11.6-14.6); RBC Distribution Width SD 47.5 fl (35.1-43.9); Red Blood Count 4.59 M/mm3 (4.2-5.4)
[2020-08-08 13:08] LABS: AST(SGOT) 36 U/L (15-37); Alanine Aminotransfer ALT/SGPT 53 U/L (13-56); Albumin, Serum 3.8 g/dL (3.2-5.0); Alkaline Phosphatase 85 U/L (45-117); Anion Gap 3 (5-15); BUN 19 mg/dL (7-18); BUN/Creat Ratio 27.6 RATIO (10-20); Calcium,Total 9.4 mg/dL (8.5-10.1); Chloride 104 mmol/L (98-107); Cholesterol 148 mg/dL (200); Creatinine, Serum 0.69 mg/dL (0.55-1.02); EST Glomerular Filtration Rate 88 mL/min (>60); Est Glom Filt Rate - Afr Amer 107 mL/min (>60); Globulin 3.9 g/dL (2.2-4.2); Glucose 89 mg/dL (74-106); High Density Lipoprotein 56 mg/dL; Potassium 3.3 mmol/L (3.5-5.1); Protein, Total 7.7 g/dL (6.4-8.2); Sodium Level 140 mmol/L (136-145); Triglycerides 144 mg/dL; Very Low Density Lipoprotein 29 mg/dL (5-40)
== END ==
PROVIDERS: PCP Internal Medicine; Referring Provider Internal Medicine; Visit Provider Internal Medicine
DX: I10 Essential (primary) hypertension (principal); E78.5 Hyperlipidemia, unspecified
CPT/HCPCS: 36415; 80053; 80061; 85025

== ENCOUNTER → 2020-09-10 07:43 | Outpatient (CLI) | payer MEDICARE, SELFPAY ==
[2020-08-08 10:56] VITALS: BMI 40.2
--- NOTE | 2020-09-10 07:46 | BI_ITS ---
MAMMOGRAPHY - BILATERAL SCREENING REASON FOR EXAM: Female, 75 years old. Routine annual screening examination. PERTINENT HISTORY: Sister with breast cancer. History of prior bilateral breast reduction surgery and right Sterotactic last biopsy. TECHNIQUE: Digital bilateral breast arielle (3D mammographic acquisition) in the CC and MLO projections. 2-D mediolateral oblique (MLO) and craniocaudad (CC) views of both breasts were obtained. CAD: Full Field Digital Mammography with Computer Added Detection was performed. COMPARISON: Comparison is made with prior study dated 07/27/2019. FINDINGS: Breast Composition: The breasts are almost entirely fatty. There are no dominant masses or suspicious calcifications. Stable densely calcified nodule in the central lateral anterior aspect of the left breast. No other significant abnormalities are identified. There has been no significant change since the prior study. BI/SCRN MAMM (CAD)W/ARIELLE BILAT IMPRESSION: Stable bilateral screening mammogram. Yearly follow-up mammogram recommended. (A) ASSESSMENT CATEGORY: BIRADS Category 2: Benign. A letter regarding these results will be sent to the patient by the facility within 30 days. Approximately 10% of breast cancers are not detected by mammography. A normal mammogram should not delay biopsy of a clinically suspicious abnormality. [id number] Electronically Signed: Marco A Do MD at 8:28 EST , Service support ,
== END ==
PROVIDERS: PCP Internal Medicine; Referring Provider Internal Medicine; Visit Provider Internal Medicine
DX: Z12.31 Encounter for screening mammogram for malignant neoplasm of breast (principal)
CPT/HCPCS: 77063; 77067

== ENCOUNTER → 2020-09-24 08:40 | Outpatient (CLI) | payer MEDICARE, SELFPAY ==
--- NOTE | 2020-09-24 08:52 | EKG12_ITS ---
Test Reason : DYSPNEA Blood Pressure : / mmHG Vent. Rate : 067 BPM Atrial Rate : 067 BPM P-R Int : 152 ms QRS Dur : 084 ms QT Int : 412 ms P-R-T Axes : 006 014 019 degrees QTc Int : 435 ms Normal sinus rhythm with sinus arrhythmia Normal ECG Confirmed by OLVIN MARTINEZ, ARPITA ([id number]), slot editor WOJCIECH REEDER ([id number]) on 09/25/2020 1:04:51 PM Referred By: Katiana Rayo Confirmed By:ARPITA BAH MD
--- NOTE | 2020-09-24 09:11 | RAD_ITS ---
STUDY: X-RAY CHEST REASON FOR EXAM: Female, 75 years old. Dyspnea on exertion TECHNIQUE: 2 views COMPARISON: Prior chest radiograph of 11/23/2019 FINDINGS: The lungs are clear and expanded. There is no demonstrated pleural abnormality. Normal size heart. Normal mediastinum and thai. Normal visualized pulmonary arteries. There is atherosclerotic calcification of the aortic arch with tortuosity. There are diffuse degenerative changes of the visualized thoracic spine. And epidural neural stimulator is present at lower thoracic levels. There is no demonstrated abnormality of the visualized soft tissue structures of the upper abdomen. RAD/Chest PA and Lateral IMPRESSION: No acute cardiopulmonary findings or changes. Negative for new consolidation, focal atelectasis or a substantial pleural effusion. Stable normal cardiac size. Stable atherosclerotic changes of the thoracic aorta. Electronically Signed: Jane Faust MD at 18:20 EST , Service support ,
[2020-09-24 09:26] LABS: Absolute Lymphocyte Count 1.69 X10^3/uL (0.83-4.51); Absolute Neutrophil Count 6.4 X10^3/uL (2.0-7.7); Basophil# 0.03 X10^3/uL; Basophil% 0.3 % (0-1); Eosinophil# 0.26 X10^3/uL; Eosinophils% 2.8 % (0-5); Hematocrit 44.2 % (37-47); Hemoglobin 13.1 g/dL (12.0-15.0); Lymphocyte # 1.69 X10^3/ul (4.0); Lymphocyte % 18.2 % (19-41); Mean Corp Hgb Conc 29.6 g/dL (32-36); Mean Corpuscular Hgb 26.6 pg (27.0-32.0); Mean Corpuscular Volume 89.8 fL (81-99); Mean Platelet Vol. 9.5 fl (6.2-12.0); Monocyte# 0.85 X10^3/uL; Monocyte% 9.1 % (0-10); NRBC Flagged by Analyzer 0 % (0-5); Neutrophil # 6.42 X10^3/uL (2.7-7.7); Neutrophil % 69.2 % (47-70); Platelet Count 288 K/mm3 (150-450); RBC Distribution Width CV 14.4 % (11.6-14.6); RBC Distribution Width SD 47.8 fl (35.1-43.9); Red Blood Count 4.92 M/mm3 (4.2-5.4); White Blood Count 9.3 K/mm3 (4.4-11.0)
[2020-09-24 09:44] LABS: BNP,B-Type NATRIURETIC PEPTIDE 27.7 pg/mL (0-100)
[2020-09-24 09:49] LABS: ALB/GLOB Ratio 1.1 RATIO (0.9-2.4); AST(SGOT) 37 U/L (15-37); Alanine Aminotransfer ALT/SGPT 46 U/L (13-56); Albumin, Serum 3.9 g/dL (3.2-5.0); Alkaline Phosphatase 76 U/L (45-117); Anion Gap 6 (5-15); BUN 12 mg/dL (7-18); BUN/Creat Ratio 14.9 RATIO (10-20); Calcium,Total 9.2 mg/dL (8.5-10.1); Chloride 103 mmol/L (98-107); Creatinine, Serum 0.81 mg/dL (0.55-1.02); EST Glomerular Filtration Rate 73 mL/min (>60); Est Glom Filt Rate - Afr Amer 89 mL/min (>60); Globulin 3.7 g/dL (2.2-4.2); Glucose 104 mg/dL (74-106); Potassium 3.7 mmol/L (3.5-5.1); Protein, Total 7.6 g/dL (6.4-8.2); Sodium Level 141 mmol/L (136-145)
[2020-09-24 10:51] LABS: D-Dimer Quantitative (DVT/PE) 0.67 FEU/ug/m (0.27-0.49)
== END ==
PROVIDERS: PCP Internal Medicine; Referring Provider Internal Medicine; Visit Provider Internal Medicine
DX: R06.00 Dyspnea, unspecified (principal)
CPT/HCPCS: 36415; 71046; 80053; 83880; 85025; 85379; 93005

== ENCOUNTER 2020-09-24 12:36 | Observation (INO) | payer MEDICARE, MEDICAID, SELFPAY ==
[2020-09-24] VITALS (9 sets, daily range): BP systolic 107–144; BP diastolic 75–97; PULSE 71–81; RESP 15–20; TEMP 36.1–36.9; O2SAT 96–97; BMI 40.5; BMI 40.2
--- NOTE | 2020-09-24 13:01 | CT_ITS ---
STUDY: CTA CHEST REASON FOR EXAM: Female, 75 years old. Elevated d-dimer. One month history of shortness of breath. RADIATION DOSAGE (If Supplied By Facility): CTDIvol = ( 14.74 ) mGy, DLP = ( 688.75 ) mGycm TECHNIQUE: The examination was performed with the intravenous administration of IV 100ML ISOVUE 370. Post-processing of the angiographic images was performed, with multiplanar reformation and 3D reconstruction. Individualized dose optimization techniques were used for this CT. COMPARISON: None. FINDINGS: Normal enhancement of the main pulmonary artery and right and left pulmonary arteries. Normal enhancement of the bilateral peripheral pulmonary arteries. There is no demonstrated pulmonary embolism. Normal thoracic aorta and visualized great vessels. There is no demonstrated aortic dissection. Normal heart and pericardium. Normal mediastinum. Normal hilar regions. Normal visualized trachea and bronchi. The lungs are well expanded. Normal pulmonary parenchyma. Normal pleura. Normal chest wall structures. There are degenerative changes of thoracic spine. Electrodes from a pain stimulator device are seen with the tip at the T7-T8 level. Normal visualized upper abdomen. CT/CTA Chest W/WO Contrast IMPRESSION: No evidence of pulmonary embolism. Electronically Signed: Marco A Do MD at 14:23 EST , Service support ,
--- NOTE | 2020-09-24 14:37 | ED.VIS.GEN ---
History of Present Illness Chief Complaint: Abn Labs Narrative: Patient presenting for evaluation secondary to exertional dyspnea. Patient has a underlying history of diabetes and hypertension. Patient's last stress test was 4 years ago and was normal. No history of heart disease. Patient states that over the course of the last couple of months she has been having worsening exertional dyspnea. It is now gotten to the point where she cannot even walk from a handicap parking space into a store without becoming significantly dyspneic and then following that she has fatigue that lasts the rest of the day. She denies that there is never really any chest pain associated with this. She denies recent infectious signs or symptoms such as fever cough nausea vomiting diarrhea unintended weight loss. Patient's primary care ordered labs and a chest x-ray on her today. Laboratory work-up was indicative of a D-dimer of 0.6, so we recommended that she come to the emergency department for CT angiogram of the chest. Past Medical History - Allergies and Home Meds Allergies/Adverse Reactions: Allergies adhesive tape Allergy (Severe, Verified 09/24/20 12:38) Area Sore cefpodoxime [From Vantin] Allergy (Unknown, Verified 09/24/20 12:38) Unknown codeine Allergy (Unknown, Verified 09/24/20 12:38) Unknown HALLUCINATIONS metronidazole [From Flagyl] Allergy (Unknown, Verified 09/24/20 12:38) Unknown sulfamethoxazole [From Bactrim] Allergy (Unknown, Verified 09/24/20 12:38) Unknown trimethoprim [From Bactrim] Allergy (Unknown, Verified 09/24/20 12:38) Unknown Sulfa (Sulfonamide Antibiotics) Allergy (Verified 09/24/20 12:38) Unknown Primary Care Physician: Katiana Rayo MD [Primary Care Provider] - Prior records reviewed: Yes Past Medical History: - - Hypertension hyperlipidemia Surgical History: appendectomy, cholecystectomy, herniorrhaphy, hysterectomy, total knee arthroplasty, - Lives: Alone Smoking Status: Former smoker Alcohol: None Drugs: None Review of Systems All systems negative except as indicated General: Denies: Chills, Fever, Sweats Eyes: Denies: Visual changes - bilaterally, Diplopia ENT: Denies: Rhinorrhea, Sore throat Cardiovascular: Denies: Chest pain, Palpitations Respiratory: Reports: Dyspnea Gastrointestinal: Denies: Abdominal pain, Nausea, Vomiting, Diarrhea, Melena, Hematochezia Genitourinary: Denies: Dysuria, Hematuria, Frequency Musculoskeletal: Reports: Swelling. Denies: Back pain, Extremity Pain Skin: Denies: Rash, Wounds Neurological: Denies: Headache, Weakness, Numbness Physical Exam Vital Signs/Narrative: Vital Signs Temp Pulse Resp BP Pulse Ox 09/24/20 13:10 79 18 107/79 96 09/24/20 12:39 97.0 F L 81 20 H 138/75 H 96 Inital Vital Signs reviewed: Yes General: Well nourished, Well developed, Obese Head: Normocephalic, Atraumatic Eyes: Perrl, EOMI ENT: Moist mucous membranes, No rhinorrhea Neck: Supple, Nontender Cardiovascular: Regular rate, Regular rhythm, No murmurs Respiratory: No distress, CTA bilaterally, Chest nontender Abdomen: Soft, Nontender, Nondistended, Normal bowel sounds Back: Nontender, Normal Inspection Extremities: Nontender, Edema - Trace bilateral lower extremity Skin: Normal color, No rash Neurological: Alert, Oriented x3, Cranial nerves II-XII grossly intact, Normal Strength, Normal Sensation Psychological: Normal affect, Normal Mood Diagnostic/Tx/Re-eval Chest X-Ray - ED: 2 View, Read by ED Physician, - - Spinal stimulator is in place, no evidence of acute cardiopulmonary process - EKG Initial EKG Interpretation: - - Sinus rhythm at [address] segments normal T waves, no significant change from prior EKG in July 2018. No acute ischemia or arrhythmia. - Medical Decision Making Patient presented secondary to worsening exertional dyspnea. I reviewed the patient's prior records, she did have a D-dimer of 65 which when age-adjusted would be normal but the patient was sent in for CT angiogram by primary care, so this was ordered. Troponin was added onto the patient's work-up which was found to be negative. CT angiogram of the chest was found to be negative per radiology. Patient had a chest x-ray performed prior to arrival, PA and lateral was normal by my personal review. Patient's heart score is 5, I reviewed the patient's records and her last stress test was back in 2017. She is reporting significantly worsening dyspnea so I believe that she likely would benefit from admission for provocative testing. Patient will be admitted under the hospitalist. ED Disposition - Plan for ED Patient: Disposition: Acute Care Hospital [facility] Diagnosis: Exertional dyspnea
--- NOTE | 2020-09-24 15:38 | HP.PCM_ITS ---
Problem List (1) Exertional dyspnea Status: Acute (2) Falls Status: Chronic (3) Dizziness Status: Chronic (4) Overactive bladder Status: Chronic (5) Chronic back pain Status: Chronic (6) Left lower quadrant pain Status: Chronic (7) Osteoarthritis of left knee Status: Chronic (8) Depression Status: Chronic (9) Overactive bladder Status: Chronic (10) Migraine Status: Chronic (11) Hyperlipidemia Status: Chronic (12) Insomnia Status: Chronic (13) Iron deficiency anemia Status: Chronic (14) Localized swelling of chest wall Status: Acute (15) Confusion Status: Chronic (16) Dark stools Status: Acute (17) Left-sided chest wall pain Status: Chronic (18) History of Status: Acute Comment: 1970 (19) Hx of breast reduction, elective Status: Acute Comment: 1997 (20) History of back surgery Status: Acute Comment: 1997 (21) History of hernia repair Status: Acute (22) History of right knee joint replacement Status: Acute Comment: 12/08 (23) Vitamin D deficiency Status: Chronic (24) Vision problems Status: Chronic (25) Pneumonia Status: Chronic (26) Osteoarthritis Status: Chronic (27) Neuropathy Status: Chronic (28) IBS (irritable bowel syndrome) Status: Acute (29) High cholesterol Status: Chronic (30) Hypertension Status: Chronic (31) Chronic headaches Status: Chronic (32) GERD (gastroesophageal reflux disease) Status: Chronic (33) H/O emotional problems Status: Chronic (34) Chronic bronchitis Status: Chronic (35) Back problem Status: Chronic (36) Anemia Status: Chronic History of Present Illness Date of Admission: 09/24/20 Chief Complaint: dypsnea on exertion The patient is a 75 year old F presents with progressive dyspnea on exertion. Symptoms have been going on for months and just progressively getting worse. She at rest, patient feels fine but whenever she does anything, she has dyspnea on exertion it feels just very tired and diaphoretic. She denies any chest pain associated with this nor any nausea vomiting or abdominal pain. So she presents to the emergency room and underwent work-up which at this point time is unremarkable. Patient being evaluated and brought in for further chest pain equivalent work-up. Patient has never had any cardiac issues previously. Patient does note that she does have palpitations at times. [] Past Medical History Past Medical History (Chronic Problems): Chronic Problems (Last Reviewed 08/08/20 @ 10:55 by Kayla Moreno) Falls (Chronic) Dizziness (Chronic) Overactive bladder (Chronic) Chronic back pain (Chronic) Left lower quadrant pain (Chronic) Osteoarthritis of left knee (Chronic) Depression (Chronic) Overactive bladder (Chronic) Migraine (Chronic) Hyperlipidemia (Chronic) Insomnia (Chronic) Iron deficiency anemia (Chronic) Confusion (Chronic) Left-sided chest wall pain (Chronic) Vitamin D deficiency (Chronic) Vision problems (Chronic) Pneumonia (Chronic) Osteoarthritis (Chronic) Neuropathy (Chronic) High cholesterol (Chronic) Hypertension (Chronic) Chronic headaches (Chronic) GERD (gastroesophageal reflux disease) (Chronic) H/O emotional problems (Chronic) Chronic bronchitis (Chronic) Back problem (Chronic) Anemia (Chronic) Medical History: Medical History (Last Reviewed 09/24/20 @ 15:[address] Sterling Portillo, DO) Overactive bladder (Chronic) N32.81 Localized swelling of chest wall (Acute) R22.2 Confusion (Chronic) R41.0 Dark stools (Acute) R19.5 Left-sided chest wall pain (Chronic) R07.89 Vitamin D deficiency (Chronic) E55.9 Vision problems (Chronic) H54.7 Pneumonia (Chronic) J18.9 Osteoarthritis (Chronic) M19.90 Neuropathy (Chronic) G62.9 IBS (irritable bowel syndrome) (Acute) K58.9 High cholesterol (Chronic) E78.00 Hypertension (Chronic) I10 Chronic headaches (Chronic) R51 GERD (gastroesophageal reflux disease) (Chronic) K21.9 H/O emotional problems (Chronic) F48.9 Chronic bronchitis (Chronic) J42 Back problem (Chronic) M53.9 Anemia (Chronic) D64.9 Abdominal pain R10.9 Allergies adhesive tape Allergy (Severe, Verified 09/24/20 12:38) Area Sore cefpodoxime [From Vantin] Allergy (Unknown, Verified 09/24/20 12:38) Unknown codeine Allergy (Unknown, Verified 09/24/20 12:38) Unknown HALLUCINATIONS metronidazole [From Flagyl] Allergy (Unknown, Verified 09/24/20 12:38) Unknown sulfamethoxazole [From Bactrim] Allergy (Unknown, Verified 09/24/20 12:38) Unknown trimethoprim [From Bactrim] Allergy (Unknown, Verified 09/24/20 12:38) Unknown Sulfa (Sulfonamide Antibiotics) Allergy (Verified 09/24/20 12:38) Unknown Home Medications: Ambulatory Orders Medication Instructions Recorded acetaminophen 500 mg tablet 1,000 mg PO Q6H PRN PRN #90 tab 02/07/19 aspirin 81 mg tablet,delayed 81 mg PO DAILY #90 tab 02/07/19 release sumatriptan succinate 6 mg/0.5 mL 6 mg SC Q1-4H PRN #1 ml 05/23/19 subcutaneous pen injector cholecalciferol (vitamin D3) 50 4,000 unit PO DAILY cap 09/10/19 mcg (2,000 unit) capsule mirabegron 25 mg tablet,extended 25 mg PO BID #180 tab 10/03/19 release 24 hr omeprazole 40 mg capsule,delayed 40 mg PO DAILY #90 cap 04/11/20 release Losartan Potassium 100 mg PO DAILY 07/03/20 Trazodone HCl 50 mg PO QHS 07/03/20 hydrochlorothiazide 25 mg tablet 25 mg PO DAILY #90 tab 07/03/20 rosuvastatin 10 mg tablet 10 mg PO QHS #90 tab 07/03/20 metoprolol succinate 50 mg 50 mg PO BID #90 tab 07/08/20 tablet,extended release 24 hr sertraline 100 mg tablet 200 mg PO DAILY #180 tab 08/01/20 potassium chloride 20 mEq 20 meq PO DAILY #90 tab 08/08/20 tablet,extended release Biotin 1 cap PO DAILY 09/24/20 Multivitamin with Minerals 1 tab PO DAILY 09/24/20 [Multiple Vitamin] Naloxegol Oxalate [Movantik] 12.5 mg PO DAILY 09/24/20 Surgical History: Surgical History (Last Reviewed 09/24/20 @ 15:[address] 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 Sterling Portillo DO) Sister Anesthesia complication Breast cancer Hypertension Mother Arthritis Pancreatic cancer Depression Father Colon cancer Hypertension CVA (cerebral vascular accident) Sister Cancer Review of Systems Constitutional: Reports: Malaise, Weakness. Denies: Anorexia, Chills, Fever, Night Sweats Eyes: Denies: Blurred vision, Double vision HEENT: Denies: Head Aches, Sinus Congestion, Sinus Drainage Cardiovascular: Reports: Edema. Denies: Chest Pain, Palpitations Respiratory: Reports: Shortness of breath upon exertion. Denies: Cough, Shortness of breath at rest, Sputum production Gastrointestinal: Denies: Abdominal Pain, Nausea, Vomiting Genitourinary: Denies: Dysuria Musculoskeletal: Denies: Joint Pain, Joint Tenderness Hematologic/ Lymphatic: Denies: Easy Bruising, Easy Bleeding, Hx of blood clot Comment: All review of systems were negative except as mentioned above in the history of present illness and the other review of systems. VTE Information - Inpt Only VTE Present on Admission: No VTE Mechan Device Prophylaxis: None VTE Pharm Prophylaxis ordered?: No Reason prophylaxis not ordered:: Treatment Not Indicated Patient Problems: Active and Suspected Problems (Last Reviewed 08/08/20 @ 10:55 by Kayla Moreno) Exertional dyspnea (Acute) - Physical Exam Vitals/I&O's: Vital Signs Temp Pulse Resp BP Pulse Ox 36.9 C 72 16 121/97 H 97 09/24/20 15:30 09/24/20 15:30 09/24/20 15:30 09/24/20 15:30 09/24/20 15:30 Oxygen Delivery Method Room Air Weight: 99.79 kg Body Mass Index (BMI) 40.2 General: Alert, Cooperative, No apparent distress HEENT: Atraumatic, Normocephalic Oral: Moist Mucosa, No Gingival or Mucosal Lesions/ Ulcerations Neck: No Nodes, Thyroid Normal Size and Texture Lungs: Clear to auscultation, Normal air movement Cardiovascular: Regular rate, Regular Rhythm, Normal S1, Normal S2, No murmurs Abdomen: Bowel Sounds Present, Soft, Non Tender, Non-Distended, No Hepato- splenomegaly, Obese Extremities: No edema, No Calf Tenderness, Peripheral Pulses Normal Skin: No rashes, No breakdown Musculoskeletal: No Tenderness to Palpation of Joints or Extremities, No Muscle Wasting Psych/Mental Status: Normal Affect, Appropriate Laboratory Results 09/24/20 13:15: Troponin I < 0.015 Current Medications Sodium Chloride (0.9% Saline Lock 10 Ml Syringe) 10 - 40 ml IV UD PRN PRN Reason: SALINE FLUSH Assessment/Plan All Active Problems (Last Reviewed 08/08/20 @ 10:55 by Kayla Moreno) Exertional dyspnea (Acute) Localized swelling of chest wall (Acute) Dark stools (Acute) History of (Acute) Hx of breast reduction, elective (Acute) History of back surgery (Acute) History of hernia repair (Acute) History of right knee joint replacement (Acute) IBS (irritable bowel syndrome) (Acute) 1. Dyspnea on exertion Concerning for cardiac equivalent given its progressive nature NACHO score is 4. Plan: * Cycle troponins * Check lipid panel in the morning * Chemical stress test in the morning and then either patient be discharged or cardiology will be consulted. 2. Peripheral neuropathy Secondary to her back patient's had 2 back surgeries and currently has a spinal stimulator Currently, her spinal stimulator is off but she will charge her brought in. May be need to be turned for further cardiac monitoring if it does interfere. 3. Hypertension Stable. Continue with home medications. 4. VTE prophylaxis: Low risk as she is observation status not indicated. 5. Advanced care planning: Spent greater than 15 minutes discussed with the patient about CODE STATUS and CPR. Patient stated that she did not want life support. Explained to her in detail what involves CPR and many times patients would require life support following successful cardiopulmonary resuscitation. Patient would not want that even short-term. We discussed further that for the event of her heart were to stop that if she does not want life support then she should be DNR Comfort Care arrest no intubation. She was in agreement to that. OBSV E&M: [id number] Initial observation care L2
--- NOTE | 2020-09-24 15:55 | EKG12_ITS ---
Test Reason : AM EKG Blood Pressure : / mmHG Vent. Rate : 073 BPM Atrial Rate : 073 BPM P-R Int : 164 ms QRS Dur : 088 ms QT Int : 418 ms P-R-T Axes : 052 028 021 degrees QTc Int : 460 ms Normal sinus rhythm Normal ECG Confirmed by SHANNAN MARTINEZ, MALCOLM ([id number]), social media editor JODI SANTILLAN ([id number]) on 09/29/2020 2:46:58 PM Referred By: Confirmed By:MALCOLM CAMPBELL MD
[2020-09-24] MEDS: Mirabegron 25 MG TAB.ER.24H PO (21:39)
[2020-09-24] MEDS: Atorvastatin Calcium 20 MG Tablet PO (21:39)
[2020-09-24] MEDS: Metoprolol(XL)Succ 50 MG Tablet PO (21:39)
[2020-09-24] MEDS: traZODone 50 MG Tablet PO (21:40)
[2020-09-25] VITALS (7 sets, daily range): BP systolic 117–144; BP diastolic 57–77; PULSE 69–78; RESP 16–18; TEMP 36.5–36.7; O2SAT 93–98
[2020-09-25 05:49] LABS: Cholesterol 128 mg/dL (200); High Density Lipoprotein 52 mg/dL; Triglycerides 109 mg/dL; Very Low Density Lipoprotein 22 mg/dL (5-40)
--- NOTE | 2020-09-25 05:55 | EKG12_ITS ---
Test Reason : CP ADMIT Blood Pressure : / mmHG Vent. Rate : 076 BPM Atrial Rate : 076 BPM P-R Int : 132 ms QRS Dur : 078 ms QT Int : 402 ms P-R-T Axes : 034 013 016 degrees QTc Int : 452 ms Normal sinus rhythm Inferior infarct , age undetermined Abnormal ECG Confirmed by SHANNAN MARTINEZ, MALCOLM ([id number]), copy editor JODI SANTILLAN ([id number]) on 09/29/2020 2:47:31 PM Referred By: SUDHEER Confirmed By:MALCOLM CAMPBELL MD
[2020-09-25] MEDS: Losartan Potassium 100 MG Tablet PO (06:45)
[2020-09-25] MEDS: Aspirin E.C. 81 MG Tablet PO (06:45)
[2020-09-25] MEDS: Mirabegron 25 MG TAB.ER.24H PO (10:38)
[2020-09-25] MEDS: Pantoprazole Sodium 40 MG Tablet PO (10:38)
[2020-09-25] MEDS: Sertraline 100 MG Tablet 200 MG PO (10:38)
[2020-09-25] MEDS: Multivitamins,Ther W-Minerals Tablet 1 TABLET PO (10:38)
[2020-09-25] MEDS: hydroCHLOROthiazide 25 MG Tablet PO (10:38)
[2020-09-25] MEDS: Potassium Chloride Oral Tablet 20 MEQ PO (10:39)
[2020-09-25] MEDS: Metoprolol(XL)Succ 50 MG Tablet PO (10:39)
--- NOTE | 2020-09-25 10:54 | STRESSREP ---
Stress Test Report Pharmacologic myocardial perfusion stress test. 75-year-old lady with a history of chest pain. Stress protocol: Resting EKG demonstrates normal sinus rhythm with a rate of 74 bpm normal intervals are noted resting blood pressure is 142/92 mmHg. 0.4 mg of regadenoson was infused per usual protocol followed by rapid intravenous saline flush injection continuous EKG monitoring was performed. The patient maintained sinus rhythm throughout the recording. At rest there were no ST or T wave changes noted to suggest abnormal flow reserve at peak infusion nonspecific ST-T wave changes were noted with no meet the criteria for ischemia. No clinical angina was noted the test was terminated due to completion of the test. The peak blood pressure was 142/92 mmHg. Lead reversal in aVR and aVL is noted. Myocardial perfusion protocol. 14.3 mCi of technetium 99m sestamibi was injected at rest. 0.4 mg of regadenoson was infused per usual protocol peak infusion 44.8 mCi of technetium 99m sestamibi was injected stress images were obtained stress and rest images were reconstructed and compared in the short axis vertical long horizontal long axis. Gated images were also obtained Perfusion SPECT analysis: Review of the stress images demonstrate normal uptake of tracer noted in all areas of the myocardium the resting images similarly demonstrate normal uptake of tracer noted in all areas of myocardium. No previous infarct is noted no areas of reversibility are noted. Gated SPECT analysis: The gated ejection fraction is noted to be 80%. Conclusion: Normal pharmacologic myocardial perfusion stress test. Preserved ejection fraction.
--- NOTE | 2020-09-25 12:05 | PCM.DC.SUM ---
<Chuy Alexis - Last Filed: 09/25/20 12:05> Discharge Date and Diagnosis - Problem List Patient Problems: Active and Suspected Problems (Last Reviewed 09/24/20 @ 15:[address] Sterling Portillo DO) Exertional dyspnea (Acute) Localized swelling of chest wall (Acute) Dark stools (Acute) History of (Acute) 1970 Hx of breast reduction, elective (Acute) 1997 History of back surgery (Acute) 1997 History of hernia repair (Acute) History of right knee joint replacement (Acute) 12/08 IBS (irritable bowel syndrome) (Acute) Date of Admission: 09/24/20 Date of Discharge: 09/25/20 - Primary Discharge Diagnosis Acute Problems: Active Problems (Last Reviewed 09/24/20 @ 15:[address] Sterling Portillo DO) Exertional dyspnea (Acute) Localized swelling of chest wall (Acute) Dark stools (Acute) History of (Acute) 1970 Hx of breast reduction, elective (Acute) 1997 History of back surgery (Acute) 1997 History of hernia repair (Acute) History of right knee joint replacement (Acute) 12/08 IBS (irritable bowel syndrome) (Acute) - Secondary Discharge Diagnosis Chronic Problems: Chronic Problems (Last Reviewed 09/24/20 @ 15:[address] Sterling Portillo DO) Falls (Chronic) Dizziness (Chronic) Overactive bladder (Chronic) Chronic back pain (Chronic) Left lower quadrant pain (Chronic) Osteoarthritis of left knee (Chronic) Depression (Chronic) Overactive bladder (Chronic) Migraine (Chronic) Hyperlipidemia (Chronic) Insomnia (Chronic) Iron deficiency anemia (Chronic) Confusion (Chronic) Left-sided chest wall pain (Chronic) Vitamin D deficiency (Chronic) Vision problems (Chronic) Pneumonia (Chronic) Osteoarthritis (Chronic) Neuropathy (Chronic) High cholesterol (Chronic) Hypertension (Chronic) Chronic headaches (Chronic) GERD (gastroesophageal reflux disease) (Chronic) H/O emotional problems (Chronic) Chronic bronchitis (Chronic) Back problem (Chronic) Anemia (Chronic) Hospital Course and Treatment Imaging Results: Chest CT-A (09/24/20): Unremarkable Stress test )09/25/20): Maintained NSR throghout. No ST or T wave changes at rest. No clinical angina was noted throughout test. Operations: None, - Procedures: None Summary of Care Provided: The patient is a 75 year old female who was admitted to the hospital with a chief complaint of exertional dyspnea and a NACHO score of 4. Admitted for chest pain rule out. [] Patient Problems: Active and Suspected Problems (Last Reviewed 09/24/20 @ 15:[address] Sterling Portillo, DO) Exertional dyspnea (Acute) Localized swelling of chest wall (Acute) Dark stools (Acute) History of (Acute) 1970 Hx of breast reduction, elective (Acute) 1997 History of back surgery (Acute) 1997 History of hernia repair (Acute) History of right knee joint replacement (Acute) 12/08 IBS (irritable bowel syndrome) (Acute) - Physical Exam Vitals/I&O's: Vital Signs Temp Pulse Resp BP Pulse Ox 98.1 F 78 18 143/72 H 98 09/25/20 10:36 09/25/20 10:39 09/25/20 10:36 09/25/20 10:39 09/25/20 10:36 Oxygen Delivery Method Room Air Weight: 220 lb Body Mass Index (BMI) 40.2 Intake and Output for Last 24 Hours 09/23/20 09/24/20 09/25/20 23:59 23:59 23:59 Intake Total 490 / 490 0 / 0 Balance 490 / 490 0 / 0 General: Alert, Oriented x3, Cooperative HEENT: Atraumatic, PERRLA, EOMI, Normocephalic Neck: Supple, No JVD, Negative Carotid Bruits Lungs: Clear to auscultation, Normal air movement Cardiovascular: Regular rate, No murmurs Abdomen: Bowel Sounds Present, Soft, Non Tender Extremities: No edema, Capillary Refill Less than 3 Seconds Skin: No rashes, No breakdown Musculoskeletal: No Tenderness to Palpation of Joints or Extremities Neurological: Cranial nerves II-XII grossly intact Psych/Mental Status: Normal Affect, Appropriate Laboratory Results 09/24/20 13:15: Troponin I < 0.015 09/24/20 16:25: Troponin I < 0.015 09/24/20 18:54: Troponin I < 0.015 09/25/20 05:02: Triglycerides 109, Cholesterol 128, LDL Cholesterol 54, VLDL Cholesterol 22, HDL Cholesterol 52 Current Medications Acetaminophen (Acetaminophen 325 Mg Tablet) 650 mg PO Q6H PRN PRN PRN Reason: Pain Score 1-10/Temp > 100.7 F Aspirin (Aspirin E.C. 81 Mg Tablet) 81 mg PO DAILYCM [facility] Last Admin: 09/25/20 06:45 Dose: 81 mg Documented by: Atorvastatin Calcium (Atorvastatin Calcium 20 Mg Tablet) 20 mg PO QHS [facility] Last Admin: 09/24/20 21:39 Dose: 20 mg Documented by: Hydrochlorothiazide (Hydrochlorothiazide 25 Mg Tablet) 25 mg PO DAILY [facility] Last Admin: 09/25/20 10:38 Dose: 25 mg Documented by: Losartan Potassium (Losartan Potassium 100 Mg Tablet) 100 mg PO DAILY [facility] Last Admin: 09/25/20 06:45 Dose: 100 mg Documented by: Metoprolol Succinate (Metoprolol(Xl)Succ 50 Mg Tablet) 50 mg PO BID [facility] Last Admin: 09/25/20 10:39 Dose: 50 mg Documented by: Mirabegron (Mirabegron 25 Mg Tab.Er.24h) 25 mg PO BID [facility] Last Admin: 09/25/20 10:38 Dose: 25 mg Documented by: Multivitamins/Minerals (Multivitamins,Ther W-Minerals Tablet) 1 tablet PO DAILY@0800 [facility] Last Admin: 09/25/20 10:38 Dose: 1 tablet Documented by: Nitroglycerin (Nitroglycerin (Inpatient Use) 0.4 Mg Tab.Subl) 0.4 mg SUBLINGUAL Q5M PRN PRN Reason: CARDIAC/CHEST PAIN Ondansetron HCl (Ondansetron 4 Mg/2 Ml Vial) 4 mg IV Q8H PRN PRN PRN Reason: NAUSEA/VOMITING Pantoprazole Sodium (Pantoprazole Sodium 40 Mg Tablet) 40 mg PO DAILY [facility] Last Admin: 09/25/20 10:38 Dose: 40 mg Documented by: Potassium Chloride (Potassium Chloride Oral Tablet 20 Meq) [facility] Last Admin: 09/25/20 10:39 Dose: 20 meq Documented by: Sertraline HCl (Sertraline 100 Mg Tablet) 200 mg PO DAILY [facility] Last Admin: 09/25/20 10:38 Dose: 200 mg Documented by: Trazodone HCl (Trazodone 50 Mg Tablet) 50 mg PO QHS [facility] Last Admin: 09/24/20 21:40 Dose: 50 mg Documented by: Discharge Diet: No Restrictions Discharge Activity: Return to Normal Activity Return to work on:: 09/26/20November shower in (days): 1 November resume sexual activity in: No Restrictions Weight Bearing Status: Weight bearing as tolerated Call your doctor if you observe: Numbness or Tingling, Shortness of breath, Dizziness, Fainting spells, Chest pain Home Medications: Medications to take at Discharge acetaminophen 500 mg tablet 1,000 mg PO Q6H PRN PRN #90 tab 02/07/19 aspirin 81 mg tablet,delayed release 81 mg PO DAILY #90 tab 02/07/19 sumatriptan succinate 6 mg/0.5 mL subcutaneous pen injector 6 mg SC Q1-4H PRN #1 ml 05/23/19 cholecalciferol (vitamin D3) 50 mcg (2,000 unit) capsule 4,000 unit PO DAILY cap 09/10/19 mirabegron 25 mg tablet,extended release 24 hr 25 mg PO BID #180 tab 10/03/19 omeprazole 40 mg capsule,delayed release 40 mg PO DAILY #90 cap 04/11/20 Losartan Potassium 100 mg PO DAILY 07/03/20 Trazodone HCl 50 mg PO QHS 07/03/20 hydrochlorothiazide 25 mg tablet 25 mg PO DAILY #90 tab 07/03/20 rosuvastatin 10 mg tablet 10 mg PO QHS #90 tab 07/03/20 metoprolol succinate 50 mg tablet,extended release 24 hr 50 mg PO BID #90 tab 07/08/20 sertraline 100 mg tablet 200 mg PO DAILY #180 tab 08/01/20 potassium chloride 20 mEq tablet,extended release 20 meq PO DAILY #90 tab 08/08/20 Biotin 1 cap PO DAILY 09/24/20 Multivitamin with Minerals [Multiple Vitamin] 1 tab PO DAILY 09/24/20 Naloxegol Oxalate [Movantik] 12.5 mg PO DAILY 09/24/20 Primary Care Physician: Katiana Rayo MD [Primary Care Provider] - Please Follow Up With: Primary care provider When: Within the next week Disposition: Home Minutes spent on discharge:: 15 Patient Condition:: Good Medical Necessity - Tobacco Use Smoking Status: Former smoker Tobacco Use: Cigarettes Meaningful Use Info Meaningful Use Diagnoses (Choose all that apply): None applicable <Ezequiel Martinez - Last Filed: 09/25/20 13:07> Discharge Date and Diagnosis - Primary Discharge Diagnosis Acute Problems: Active Problems (Last Reviewed 09/24/20 @ 15:[address] Sterling Portillo, DO) Exertional dyspnea (Acute) Localized swelling of chest wall (Acute) Dark stools (Acute) History of (Acute) 1970 Hx of breast reduction, elective (Acute) 1997 History of back surgery (Acute) 1997 History of hernia repair (Acute) History of right knee joint replacement (Acute) 12/08 IBS (irritable bowel syndrome) (Acute) - Secondary Discharge Diagnosis Chronic Problems: Chronic Problems (Last Reviewed 09/24/20 @ 15:[address] Sterling Portillo, DO) Falls (Chronic) Dizziness (Chronic) Overactive bladder (Chronic) Chronic back pain (Chronic) Left lower quadrant pain (Chronic) Osteoarthritis of left knee (Chronic) Depression (Chronic) Overactive bladder (Chronic) Migraine (Chronic) Hyperlipidemia (Chronic) Insomnia (Chronic) Iron deficiency anemia (Chronic) Confusion (Chronic) Left-sided chest wall pain (Chronic) Vitamin D deficiency (Chronic) Vision problems (Chronic) Pneumonia (Chronic) Osteoarthritis (Chronic) Neuropathy (Chronic) High cholesterol (Chronic) Hypertension (Chronic) Chronic headaches (Chronic) GERD (gastroesophageal reflux disease) (Chronic) H/O emotional problems (Chronic) Chronic bronchitis (Chronic) Back problem (Chronic) Anemia (Chronic) Hospital Course and Treatment Imaging Results: Clinical Impression(s) from Imaging Studies Chest CTA 09/24/20 13:01 IMPRESSION: No evidence of pulmonary embolism. Electronically Signed: Marco A Do MD at 14:23 EST , Service support , Stress Test Report Pharmacologic myocardial perfusion stress test. 75-year-old lady with a history of chest pain. Stress protocol: Resting EKG demonstrates normal sinus rhythm with a rate of 74 bpm normal intervals are noted resting blood pressure is 142/92 mmHg. 0.4 mg of regadenoson was infused per usual protocol followed by rapid intravenous saline flush injection continuous EKG monitoring was performed. The patient maintained sinus rhythm throughout the recording. At rest there were no ST or T wave changes noted to suggest abnormal flow reserve at peak infusion nonspecific ST-T wave changes were noted with no meet the criteria for ischemia. No clinical angina was noted the test was terminated due to completion of the test. The peak blood pressure was 142/92 mmHg. Lead reversal in aVR and aVL is noted. Myocardial perfusion protocol. 14.3 mCi of technetium 99m sestamibi was injected at rest. 0.4 mg of regadenoson was infused per usual protocol peak infusion 44.8 mCi of technetium 99m sestamibi was injected stress images were obtained stress and rest images were reconstructed and compared in the short axis vertical long horizontal long axis. Gated images were also obtained Perfusion SPECT analysis: Review of the stress images demonstrate normal uptake of tracer noted in all areas of the myocardium the resting images similarly demonstrate normal uptake of tracer noted in all areas of myocardium. No previous infarct is noted no areas of reversibility are noted. Gated SPECT analysis: The gated ejection fraction is noted to be 80%. Conclusion: Normal pharmacologic myocardial perfusion stress test. Preserved ejection fraction. Summary of Care Provided: Per HPI: The patient is a 75 year old F presents with progressive dyspnea on exertion. Symptoms have been going on for months and just progressively getting worse. She at rest, patient feels fine but whenever she does anything, she has dyspnea on exertion it feels just very tired and diaphoretic. She denies any chest pain associated with this nor any nausea vomiting or abdominal pain. So she presents to the emergency room and underwent work-up which at this point time is unremarkable. Patient being evaluated and brought in for further chest pain equivalent work-up. Patient has never had any cardiac issues previously. Patient does note that she does have palpitations at times. Hospital Course: 1. Dyspnea on exertion, chest pain rule out/HTN/RPS-40-iizz-old female presents from home with progressive dyspnea on exertion. The symptoms going on for months has just been progressively getting worse and so she presented to the hospital. Troponins were unremarkable and EKG was nonischemic. She underwent a cardiac stress test today which was normal. She also had a CT scan which was negative for PEs. She states her chest pain and her shortness of breath have resolved. I did discuss with her the plan for discharge and she expressed the risks and benefits of going home and would like to go home. Her home blood pressure and cholesterol medications were continued. 2. Urinary incontinence, constipation, GERD, anxiety, depression, migraines are all chronic medical conditions complicate her care. Her home medications were continued where appropriate - Physical Exam Vitals/I&O's: Vital Signs Temp Pulse Resp BP Pulse Ox 98.1 F 78 18 143/72 H 98 09/25/20 10:36 09/25/20 10:39 09/25/20 10:36 09/25/20 10:39 09/25/20 10:36 Oxygen Delivery Method Room Air Weight: 220 lb Body Mass Index (BMI) 40.2 Intake and Output for Last 24 Hours 09/23/20 09/24/20 09/25/20 23:59 23:59 23:59 Intake Total 490 / 490 220 / 220 Balance 490 / 490 220 / 220 General: No apparent distress Lungs: No rhonchi, No wheeze, No rales Cardiovascular: Regular Rhythm, Normal S1, Normal S2 Abdomen: Non-Distended, No Hepato-splenomegaly Neurological: Neuro grossly intact, Sensory exam intact to light touch and pain Laboratory Results 09/24/20 13:15: Troponin I < 0.015 09/24/20 16:25: Troponin I < 0.015 09/24/20 18:54: Troponin I < 0.015 09/25/20 05:02: Triglycerides 109, Cholesterol 128, LDL Cholesterol 54, VLDL Cholesterol 22, HDL Cholesterol 52 Current Medications Acetaminophen (Acetaminophen 325 Mg Tablet) 650 mg PO Q6H PRN PRN PRN Reason: Pain Score 1-10/Temp > 100.7 F Aspirin (Aspirin E.C. 81 Mg Tablet) [facility] Last Admin: 09/25/20 06:45 Dose: 81 mg Documented by: Atorvastatin Calcium (Atorvastatin Calcium 20 Mg Tablet) 20 mg PO QHS [facility] Last Admin: 09/24/20 21:39 Dose: 20 mg Documented by: Hydrochlorothiazide (Hydrochlorothiazide 25 Mg Tablet) 25 mg PO DAILY [facility] Last Admin: 09/25/20 10:38 Dose: 25 mg Documented by: Losartan Potassium (Losartan Potassium 100 Mg Tablet) 100 mg PO DAILY [facility] Last Admin: 09/25/20 06:45 Dose: 100 mg Documented by: Metoprolol Succinate (Metoprolol(Xl)Succ 50 Mg Tablet) 50 mg PO BID [facility] Last Admin: 09/25/20 10:39 Dose: 50 mg Documented by: Mirabegron (Mirabegron 25 Mg Tab.Er.24h) 25 mg PO BID [facility] Last Admin: 09/25/20 10:38 Dose: 25 mg Documented by: Multivitamins/Minerals (Multivitamins,Ther W-Minerals Tablet) 1 tablet PO DAILY@0800 [facility] Last Admin: 09/25/20 10:38 Dose: 1 tablet Documented by: Nitroglycerin (Nitroglycerin (Inpatient Use) 0.4 Mg Tab.Subl) 0.4 mg SUBLINGUAL Q5M PRN PRN Reason: CARDIAC/CHEST PAIN Ondansetron HCl (Ondansetron 4 Mg/2 Ml Vial) 4 mg IV Q8H PRN PRN PRN Reason: NAUSEA/VOMITING Pantoprazole Sodium (Pantoprazole Sodium 40 Mg Tablet) 40 mg PO DAILY [facility] Last Admin: 09/25/20 10:38 Dose: 40 mg Documented by: Potassium Chloride (Potassium Chloride Oral Tablet 20 Meq) [facility] Last Admin: 09/25/20 10:39 Dose: 20 meq Documented by: Sertraline HCl (Sertraline 100 Mg Tablet) 200 mg PO DAILY [facility] Last Admin: 09/25/20 10:38 Dose: 200 mg Documented by: Trazodone HCl (Trazodone 50 Mg Tablet) 50 mg PO QHS [facility] Last Admin: 09/24/20 21:40 Dose: 50 mg Documented by: Call your doctor if you observe: Fever of 101 or Higher, Swelling in the ankles, Increased palpitations (irregular heartbeat) Minutes spent on discharge:: 35 Meaningful Use Info Meaningful Use Diagnoses (Choose all that apply): None applicable OBSV E&M: 52083 Observation care discharge
--- NOTE | 2020-09-25 12:22 | DCINST_ITS ---
<Chuy Alexis PA - Last Filed: 09/25/20 12:22> - Discharge Diagnoses Current Active Problems: Current Active and Chronic Problems (Last Reviewed 09/24/20 @ 15:[address] Sterling Portillo, DO) Exertional dyspnea (Acute) Falls (Chronic) Dizziness (Chronic) Overactive bladder (Chronic) Chronic back pain (Chronic) Left lower quadrant pain (Chronic) Osteoarthritis of left knee (Chronic) Depression (Chronic) Overactive bladder (Chronic) Migraine (Chronic) Hyperlipidemia (Chronic) Insomnia (Chronic) Iron deficiency anemia (Chronic) Localized swelling of chest wall (Acute) Confusion (Chronic) Dark stools (Acute) Left-sided chest wall pain (Chronic) History of (Acute) 1970 Hx of breast reduction, elective (Acute) 1997 History of back surgery (Acute) 1997 History of hernia repair (Acute) History of right knee joint replacement (Acute) 12/08 Vitamin D deficiency (Chronic) Vision problems (Chronic) Pneumonia (Chronic) Osteoarthritis (Chronic) Neuropathy (Chronic) IBS (irritable bowel syndrome) (Acute) High cholesterol (Chronic) Hypertension (Chronic) Chronic headaches (Chronic) GERD (gastroesophageal reflux disease) (Chronic) H/O emotional problems (Chronic) Chronic bronchitis (Chronic) Back problem (Chronic) Anemia (Chronic) Reason(s) for Visit for Discharge Instructions: Exertional dyspnea/CP rule out. You will use the following diet at home:: No restrictions, Regular Your food should be the consistency of: Regular Your liquids should be the consistency of: Regular/Thin Discharge Activity: Return to Normal Activity Return to work on:: 09/26/20 May shower in (days): 1 May resume sexual activity in: No Restrictions Weight Bearing Status: Weight bearing as tolerated Call your doctor if you observe: Numbness or Tingling, Shortness of breath, Dizziness, Fainting spells, Chest pain Allergies/Adverse Reactions: Allergies adhesive tape Allergy (Severe, Verified 09/24/20 12:38) Area Sore cefpodoxime [From Vantin] Allergy (Unknown, Verified 09/24/20 12:38) Unknown codeine Allergy (Unknown, Verified 09/24/20 12:38) Unknown HALLUCINATIONS metronidazole [From Flagyl] Allergy (Unknown, Verified 09/24/20 12:38) Unknown sulfamethoxazole [From Bactrim] Allergy (Unknown, Verified 09/24/20 12:38) Unknown trimethoprim [From Bactrim] Allergy (Unknown, Verified 09/24/20 12:38) Unknown Sulfa (Sulfonamide Antibiotics) Allergy (Verified 09/24/20 12:38) Unknown Medications to take at Discharge acetaminophen 500 mg tablet 1,000 mg PO Q6H PRN PRN #90 tab 02/07/19 aspirin 81 mg tablet,delayed release 81 mg PO DAILY #90 tab 02/07/19 sumatriptan succinate 6 mg/0.5 mL subcutaneous pen injector 6 mg SC Q1-4H PRN #1 ml 05/23/19 cholecalciferol (vitamin D3) 50 mcg (2,000 unit) capsule 4,000 unit PO DAILY cap 09/10/19 mirabegron 25 mg tablet,extended release 24 hr 25 mg PO BID #180 tab 10/03/19 omeprazole 40 mg capsule,delayed release 40 mg PO DAILY #90 cap 04/11/20 Losartan Potassium 100 mg PO DAILY 07/03/20 Trazodone HCl 50 mg PO QHS 07/03/20 hydrochlorothiazide 25 mg tablet 25 mg PO DAILY #90 tab 07/03/20 rosuvastatin 10 mg tablet 10 mg PO QHS #90 tab 07/03/20 metoprolol succinate 50 mg tablet,extended release 24 hr 50 mg PO BID #90 tab 07/08/20 sertraline 100 mg tablet 200 mg PO DAILY #180 tab 08/01/20 potassium chloride 20 mEq tablet,extended release 20 meq PO DAILY #90 tab 08/08/20 Biotin 1 cap PO DAILY 09/24/20 Multivitamin with Minerals [Multiple Vitamin] 1 tab PO DAILY 09/24/20 Naloxegol Oxalate [Movantik] 12.5 mg PO DAILY 09/24/20 Primary Care Physician: Katiana Rayo MD [Primary Care Provider] - Test Results: Test results from this visit will be discussed in further detail at your follow- up appointment, if applicable. Please Follow Up With: Primary care provider When: Within the next week <Ezequiel Martinez - Last Filed: 09/25/20 13:00> - Discharge Diagnoses Current Active Problems: Current Active and Chronic Problems (Last Reviewed 09/24/20 @ 15:[address] Sterling Portillo DO) Exertional dyspnea (Acute) Falls (Chronic) Dizziness (Chronic) Overactive bladder (Chronic) Chronic back pain (Chronic) Left lower quadrant pain (Chronic) Osteoarthritis of left knee (Chronic) Depression (Chronic) Overactive bladder (Chronic) Migraine (Chronic) Hyperlipidemia (Chronic) Insomnia (Chronic) Iron deficiency anemia (Chronic) Localized swelling of chest wall (Acute) Confusion (Chronic) Dark stools (Acute) Left-sided chest wall pain (Chronic) History of (Acute) 1970 Hx of breast reduction, elective (Acute) 1997 History of back surgery (Acute) 1997 History of hernia repair (Acute) History of right knee joint replacement (Acute) 12/08 Vitamin D deficiency (Chronic) Vision problems (Chronic) Pneumonia (Chronic) Osteoarthritis (Chronic) Neuropathy (Chronic) IBS (irritable bowel syndrome) (Acute) High cholesterol (Chronic) Hypertension (Chronic) Chronic headaches (Chronic) GERD (gastroesophageal reflux disease) (Chronic) H/O emotional problems (Chronic) Chronic bronchitis (Chronic) Back problem (Chronic) Anemia (Chronic) You will use the following diet at home:: No restrictions, Cardiac Call your doctor if you observe: Fever of 101 or Higher, Swelling in the ankles, Increased palpitations (irregular heartbeat) Test Results: Test results from this visit will be discussed in further detail at your follow- up appointment, if applicable.
== END 2020-09-25 12:23 | disposition home or self-care (01) ==
LOC: ED 14:44 → PCU 15:04
PROVIDERS: Emergency Provider Emergency Medicine; PCP Internal Medicine; Visit Provider Family Medicine
DX: R06.09 Other forms of dyspnea (principal); R22.2 Localized swelling, mass and lump, trunk; I10 Essential (primary) hypertension; E11.40 Type 2 diabetes mellitus with diabetic neuropathy, unspecified; R53.83 Other fatigue; R42 Dizziness and giddiness; G89.29 Other chronic pain; N32.81 Overactive bladder; F32.9 Major depressive disorder, single episode, unspecified; E55.9 Vitamin D deficiency, unspecified; M19.90 Unspecified osteoarthritis, unspecified site; K58.9 Irritable bowel syndrome, unspecified; K21.9 Gastro-esophageal reflux disease without esophagitis; E78.5 Hyperlipidemia, unspecified; R32 Unspecified urinary incontinence; F41.9 Anxiety disorder, unspecified; G43.909 Migraine, unspecified, not intractable, without status migrainosus; K92.1 Melena; Z87.891 Personal history of nicotine dependence; Z79.899 Other long term (current) drug therapy; Z79.82 Long term (current) use of aspirin
CPT/HCPCS: 36415; 71046; 71275; 78452; 80053; 80061; 83880; 84484; 85025; 85379; 93005; 93017; 99218; 99285; A9500; Q9967; A4216; G0378; J2785

== ENCOUNTER 2020-10-05 09:14 | Emergency (ER) | payer MEDICARE, MEDICAID, SELFPAY ==
[2020-09-29 13:55] VITALS: BMI 40.6
[2020-10-05 09:15] VITALS: BP 154/91; PULSE 76; RESP 16; TEMP 36.4; O2SAT 96; BMI 38.0
--- NOTE | 2020-10-05 09:46 | RAD_ITS ---
STUDY: X-RAY CHEST REASON FOR EXAM: Female, 75 years old. SOB TECHNIQUE: Single AP portable view of the chest. COMPARISON: 09/24/2020 FINDINGS: The lungs are clear and expanded. There is no demonstrated pleural abnormality. There is moderate cardiac enlargement. Normal mediastinum and thai. Normal visualized pulmonary arteries. There is atherosclerotic tortuosity of the aortic arch and descending thoracic aorta. Normal visualized thoracic spine. Normal visualized ribs, clavicles, and shoulders. Dorsal column spinal stimulator in the lower thoracic spine. There is no demonstrated abnormality of the visualized soft tissue structures of the upper abdomen. RAD/Chest 1 View (Portable) IMPRESSION: No active disease. Electronically Signed: Tee Lees MD at 11:08 EDT Tel , Service support ,
--- NOTE | 2020-10-05 09:46 | EKG12_ITS ---
Test Reason : WEAKNESS Blood Pressure : / mmHG Vent. Rate : 061 BPM Atrial Rate : 061 BPM P-R Int : 170 ms QRS Dur : 090 ms QT Int : 440 ms P-R-T Axes : 014 034 030 degrees QTc Int : 442 ms Normal sinus rhythm Normal ECG Confirmed by ARPITA BAH MD ([id number]), assistant film editor JODI SANTILLAN ([id number]) on 10/08/2020 9:59:25 AM Referred By: [email or web address] Confirmed By:ARPITA BAH MD
[2020-10-05 10:19] VITALS: O2SAT 96
[2020-10-05 10:20] LABS: Absolute Lymphocyte Count 1.61 X10^3/uL (0.83-4.51); Absolute Neutrophil Count 5.7 X10^3/uL (2.0-7.7); Basophil# 0.03 X10^3/uL; Basophil% 0.4 % (0-1); Eosinophil# 0.23 X10^3/uL; Eosinophils% 2.8 % (0-5); Hematocrit 41.7 % (37-47); Lymphocyte # 1.61 X10^3/ul (4.0); Lymphocyte % 19.3 % (19-41); Mean Corp Hgb Conc 31.2 g/dL (32-36); Mean Corpuscular Volume 89.9 fL (81-99); Mean Platelet Vol. 9.6 fl (6.2-12.0); Monocyte# 0.81 X10^3/uL; Monocyte% 9.7 % (0-10); NRBC Flagged by Analyzer 0 % (0-5); Neutrophil # 5.65 X10^3/uL (2.7-7.7); Neutrophil % 67.6 % (47-70); Platelet Count 241 K/mm3 (150-450); RBC Distribution Width CV 14.4 % (11.6-14.6); RBC Distribution Width SD 46.8 fl (35.1-43.9); Red Blood Count 4.64 M/mm3 (4.2-5.4); White Blood Count 8.4 K/mm3 (4.4-11.0)
[2020-10-05 10:40] LABS: Anion Gap 7 (5-15); BUN 13 mg/dL (7-18); BUN/Creat Ratio 18.3 RATIO (10-20); Calcium,Total 9.4 mg/dL (8.5-10.1); Chloride 102 mmol/L (98-107); Creatinine, Serum 0.71 mg/dL (0.55-1.02); EST Glomerular Filtration Rate 85 mL/min (>60); Est Glom Filt Rate - Afr Amer 103 mL/min (>60); Estimated Creatinine Clearance 41.97 ml/min; Glucose 96 mg/dL (74-106); Potassium 3.5 mmol/L (3.5-5.1); Sodium Level 140 mmol/L (136-145)
[2020-10-05 10:50] LABS: D-Dimer Quantitative (DVT/PE) 0.58 FEU/ug/m (0.27-0.49)
--- NOTE | 2020-10-05 12:14 | ED.DCSUM_ITS ---
- ER Visit Summary Date of Service: 10/05/20 Chief Complaint: Shortness of breath History of Present Illness: The patient is a [address] Simmons. Patient reports she has been short of breath for the past month. This seems to worsen over the past 10 days. States that severe at worst. Is increased with exertion or bending over. She denies orthopnea or PND. She also denies chest pain, pressure, or tightness. Patient reports that she was admitted to the hospital from September 24 to September 25 and had a negative CTA and a normal stress test. She followed up with Dr. Simmons is referred to see Dr. Eng, but does not have an appointment till October 22. Patient denies any fever, chills, cough, or other complaints. Physical Examination: Vitals: Stable. Afebrile. General: Well-nourished and well-developed. Head: Normocephalic atraumatic. Neck: Supple, no lymphadenopathy. No JVD. Nontender. Cardiovascular: Regular rate and rhythm. No murmurs. Respiratory: No respiratory distress. Clear to auscultation bilaterally. Abdominal: Soft, nontender, nondistended, normal bowel sounds. No guarding, rebound, or peritoneal signs. Back: Nontender. Extremities: Nontender, no edema. Skin: Normal color, no rash. Neurologic: Alert and oriented ?3. Cranial nerves II through XII are intact. Normal strength and sensation. Psych: Normal affect. Test Results: EKG is sinus at 61 with no acute changes. Is unchanged from September 25. Troponin is negative. D-dimer is 0.58 which is negative when adjusted for age. Chem-7 is normal. CBC is normal. Covid is negative. Clinical Impression(s) from Imaging Studies Chest X-Ray 10/05/20 09:46 IMPRESSION: No active disease. Electronically Signed: Tee Lees MD at 11:08 EDT Tel , Service support , Emergency Department Course and Treatment: Patient is resting comfortably without complaint. I had a prolonged discussion with the patient and her sister that with the recent negative stress test that really the only reason to admit her to the hospital would be for a heart catheterization. They understand this. Treatment Plan: The patient was discussed with Dr. Denton who does not feel that she needs to be admitted to the hospital and would like her to follow-up this week for repeat exam. Return to the emergency department for any worsening symptoms. Disposition: To home in improved and stable condition. Impression: 1. Dyspnea on exertion. 2. Heart score of 4. This note was generated with [employer]Book[employer] software. It may contain incorrect words, spelling, and punctuation that were not noted in review of the chart prior to signing ED Disposition - Plan for ED Patient: Instructions: ED Dyspnea Referrals: Jonathan Eng MD [STAFF PHYSICIAN] - As soon as possible
[2020-10-05 12:50] VITALS: BP 105/82; PULSE 81; RESP 16; O2SAT 99
== END 2020-10-05 12:51 | disposition home or self-care (01) ==
LOC: ED 10:21
PROVIDERS: Emergency Provider Emergency Medicine; PCP Internal Medicine
DX: R06.09 Other forms of dyspnea (principal); Z20.822 Contact with and (suspected) exposure to COVID-19; I10 Essential (primary) hypertension; D64.9 Anemia, unspecified; M19.90 Unspecified osteoarthritis, unspecified site; M54.9 Dorsalgia, unspecified; G89.29 Other chronic pain; G43.909 Migraine, unspecified, not intractable, without status migrainosus; K21.9 Gastro-esophageal reflux disease without esophagitis; F32.9 Major depressive disorder, single episode, unspecified; Z79.82 Long term (current) use of aspirin; Z79.899 Other long term (current) drug therapy
CPT/HCPCS: 71045; 80048; 84484; 85025; 85379; 87426; 93005; 99284; A4216

== ENCOUNTER → 2020-10-10 10:45 | Outpatient (CLI) | payer MEDICARE, MEDICAID, SELFPAY ==
[2020-10-08 11:55] VITALS: BMI 38.2
--- NOTE | 2020-10-10 10:50 | ECHOCS_ITS ---
Reason For Study: Dyspnea/SOB Procedure This was a 2D Doppler, Color Flow transthoracic echocardiogram. Exam performed in department. Left Ventricle Normal LV size. Left ventricular systolic function is normal. The estimated ejection fraction is 65 %. Stage 1 diastolic dysfunction. No regional wall motion abnormalities noted. Right Ventricle Normal RV size. Normal systolic function. Atria Normal left atrium. Normal right atrium. Mitral Valve Normal mitral valve. Tricuspid Valve Normal tricuspid valve. Mild (1+) tricuspid valve insufficiency. Pulmonary artery systolic pressure is 30 mmHg. Aortic Valve Trisinus/trileaflet aortic valve. Pulmonic Valve The pulmonic valve is not well visualized. Great Vessels Normal aortic root. The pulmonary artery is normal size. Normal inferior vena cava. Pericardium/Pleural No pericardial effusion. Medication Diluted definity 4ml given slow IV push to enhance endocardial definition. MMode/2D Measurements & Calculations LVIDd: 4.2 cm IVSd: 1.4 cm Ao root diam: 3.0 cm LVIDs: 2.7 cm LVPWd: 1.1 cm RVDd: 2.8 cm FS: 36.1 % LAV(MOD-bp): 48.1 ml LA A4 area: 17.1 cm2 LA dimension(2D): 2.9 cm LAV(MOD-bp) Indexed: 23.5 ml/m2 LAV(MOD-sp2): 48.8 ml LAV(MOD-sp4): 45.6 ml RA A4 area: 10.2 cm2 Doppler Measurements & Calculations MV E max james: 65.5 cm/sec Lat Peak E' James: 7.9 cm/sec Med Peak E' James: 5.7 cm/sec MV A max james: 93.6 cm/sec E/E' lat: 8.3 E/E' med: 11.4 MV E/A: 0.70 Ao V2 max: 131.4 cm/sec LV V1 max: 117.8 cm/sec PA V2 max: 94.4 cm/sec Ao max P.9 mmHg LV V1 max P.6 mmHg Ao V2 mean: 88.4 cm/sec Ao mean P.5 mmHg Ao V2 VTI: 26.7 cm TR max james: 260.5 cm/sec TR max P.1 mmHg Interpretation Summary Normal LV size. Left ventricular systolic function is normal. The estimated ejection fraction is 65 %. Stage 1 diastolic dysfunction. Mild (1+) tricuspid valve insufficiency. Contrast injection was performed. Ordering Physician: Jonathan Eng Referring Physician: Katiana Rayo Performed By: Zeina Guillen RDCS, RVT
== END ==
PROVIDERS: PCP Internal Medicine; Referring Provider Internal Medicine Cardiovascular Disease; Visit Provider Internal Medicine Cardiovascular Disease
DX: R06.00 Dyspnea, unspecified (principal); R06.02 Shortness of breath
CPT/HCPCS: 93306; Q9957; A4216; C8929

== ENCOUNTER 2020-10-14 06:45 | Day surgery (SDC) | payer MEDICARE, MEDICAID, SELFPAY ==
[2020-10-08 11:55] VITALS: BMI 38.2
[2020-10-13 08:42] VITALS: BMI 38.2
--- NOTE | 2020-10-14 07:00 | HP_ITS ---
HPI HPI History of Present Illness Details: Pleasant 75-year-old lady with a history of worsening shortness of breath over the last 3 weeks with new onset a month ago. She does have a history of hypertension hyperlipidemia obesity who apparently has been having progressively worsening shortness of breath with exertion as well as frequent falls. The falls appear to be secondary to poor balance. She was admitted earlier on this month with dyspnea on exertion underwent a pharmacologic stress test which did not demonstrate any evidence of ischemia. Her D-dimer was elevated but troponins were normal. A CTA of the chest did not demonstrate any evidence of pulmonary embolism. EKG demonstrated normal sinus rhythm with a rate of 61 bpm and no acute changes. She presents here for evaluation of this dyspnea on exertion. She has had no dizziness or diaphoresis no near syncope or syncope. She has not had any recent Covid exposure. Her most recent lipid profile demonstrated a total cholesterol 128, HDL of 52, LDL of 54. Her physical exam here today demonstrates clear lung knight regular rate and rhythm and no pedal edema. Intake Vital Signs 10/08/20 Height 5 ft 4 in 10/08/20 Weight: 223 lb 10/08/20 BMI 38.2 10/08/20 BP 144/8 H 10/08/20 Respiration 20 H 10/08/20 Pulse 78 10/08/20 Pulse Oximetry (%) 96 Intake Visit Reasons: DYSPNEA (Nitza KLEIN) Allergies adhesive tape Allergy (Severe, Verified 10/05/20 09:24) Area Sore cefpodoxime [From Vantin] Allergy (Unknown, Verified 10/05/20 09:24) Unknown codeine Allergy (Unknown, Verified 10/05/20 09:24) Unknown metronidazole [From Flagyl] Allergy (Unknown, Verified 10/05/20 09:24) Unknown sulfamethoxazole [From Bactrim] Allergy (Unknown, Verified 10/05/20 09:24) Unknown trimethoprim [From Bactrim] Allergy (Unknown, Verified 10/05/20 09:24) Unknown Sulfa (Sulfonamide Antibiotics) Allergy (Verified 10/05/20 09:24) Unknown Medications acetaminophen 500 mg tablet 1,000 mg PO Q6H PRN PRN #90 tab 02/07/19 [Rx Confirmed 10/08/20] aspirin 81 mg tablet,delayed release 81 mg PO DAILY #90 tab 02/07/19 [Rx Confirmed 10/08/20] sumatriptan succinate 6 mg/0.5 mL subcutaneous pen injector 6 mg SC Q1-4H PRN #1 ml 05/23/19 [Rx Confirmed 10/08/20] cholecalciferol (vitamin D3) 50 mcg (2,000 unit) capsule 4,000 unit PO DAILY cap 09/10/19 [History Confirmed 10/08/20] omeprazole 40 mg capsule,delayed release 40 mg PO DAILY #90 cap 04/11/20 [Rx Confirmed 10/08/20] Trazodone HCl 50 mg PO QHS 07/03/20 [History Confirmed 10/08/20] hydrochlorothiazide 25 mg tablet 25 mg PO DAILY #90 tab 07/03/20 [Rx Confirmed 10/08/20] rosuvastatin 10 mg tablet 10 mg PO QHS #90 tab 07/03/20 [Rx Confirmed 10/08/20] metoprolol succinate 50 mg tablet,extended release 24 hr 50 mg PO BID #90 tab 07/08/20 [Rx Confirmed 10/08/20] sertraline 100 mg tablet 200 mg PO DAILY #180 tab 08/01/20 [Rx Confirmed 10/08/20] potassium chloride 20 mEq tablet,extended release 20 meq PO DAILY #90 tab 08/08/20 [Rx Confirmed 10/08/20] Biotin 1 cap PO DAILY 09/24/20 [History Confirmed 10/08/20] Multivitamin with Minerals [Multiple Vitamin] 1 tab PO DAILY 09/24/20 [History Confirmed 10/08/20] Naloxegol Oxalate [Movantik] 12.5 mg PO DAILY 09/24/20 [History Confirmed 10/08/20] mirabegron 25 mg tablet,extended release 24 hr 25 mg PO BID #180 tab 09/26/20 [Rx Confirmed 10/08/20] losartan 100 mg tablet 100 mg PO DAILY #90 tab 09/30/20 [Rx Confirmed 10/08/20] [facility] Medical History Essential (primary) hypertension (Chronic) Hyperlipidemia (Chronic) Depression (Chronic) Overactive bladder (Chronic) Iron deficiency anemia (Chronic) Osteoarthritis (Chronic) Neuropathy (Chronic) IBS (irritable bowel syndrome) (Chronic) GERD (gastroesophageal reflux disease) (Chronic) Chronic bronchitis (Chronic) Frequent falls (Chronic) Abdominal pain (Chronic) Chronic back pain (Chronic) Chronic headaches (Chronic) DDD (degenerative disc disease) (Chronic) H/O emotional problems (Chronic) Insomnia (Chronic) Left lower quadrant pain (Chronic) Obesity (Chronic) Osteoarthritis of left knee (Chronic) Overactive bladder (Chronic) Vision problems (Chronic) Vitamin D deficiency (Chronic) Confusion (Resolved) Dark stools (Resolved) Left-sided chest wall pain (Resolved) Localized swelling of chest wall (Resolved) Pneumonia (Resolved) Surgical History 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 (Resolved) History of (Resolved) History of back surgery (Resolved) History of cholecystectomy (Resolved) History of gastric surgery (Resolved) History of hernia repair (Resolved) History of hysterectomy (Resolved) History of right knee joint replacement (Resolved) History of total right knee replacement (Resolved) Hx of breast reduction, elective (Resolved) Family History Sister Anesthesia complication Breast cancer Hypertension Mother Arthritis Pancreatic cancer Depression Father Colon cancer Hypertension CVA (cerebral vascular accident) Sister Cancer rectal/kidney/medullary Thyroid cancer Social History (Updated 10/08/20 @ 13:[address] Jonathan Eng MD) Smoking Status: Current every day smoker alcohol intake: never substance use type: does not use what type of physical activity do you participate in: none ROS Const Const: Positive for fatigue and weakness; negative for headache(s), frequent falls, difficulty sleeping or excessive sweating Eyes Eyes: Negative for loss of peripheral vision, transient loss of vision, blurry vision, double vision or tunnel vision ENT ENT: Negative for headache(s), dizziness, Nosebleed/epistaxis or balance problems Cardio Chest Pain: No Palpitations: No Edema: None Muscle aches with walking: None Resp Respiratory: Positive for SOB with activity and SOB at rest; negative for SOB orthopnea\SOB lying down, Cough or paroxysmal nocturnal dyspnea GI GI: Negative nausea, vomiting, heartburn or black,tarry stools : Negative for hematuria Musc Musc: Negative for muscle aches/ myalgia, muscle weakness, joint pain or balance problems Skin Skin: Negative non-healing lesions, rash or unusual bruising Neuro Neuro: Positive for weakness; negative for dizziness, lightheadedness, near syncope, syncope, orthostatic symptoms, frequent falls, headache(s), blurry vision, double vision or lack of coordination [place] Hematologic/Lymphatic: Negative for easy bleeding or easy bruising Endo Endo: Positive for fatigue; negative for excessive sweating or increased thirst/drinking Psych Psych: Negative for anxiety or depression Allergy Allergy/Immunology: Negative for hives, Negative for rash Cardiology Exam Const Appearance: cooperative, healthy appearing, no acute distress, well developed and well groomed Nutritional Appearance: average body habitus and well nourished Orientation: alert, awake and oriented x3 Head Head: normal to inspection, normocephalic and atraumatic Ears: hearing grossly normal bilaterally and external ears normal Nose: external nose normal, nares normal, nasal mucous membranes and turbinates normal, septum normal, no nasal discharge Face and Sinus: face symmetric Mouth: oral mucosae normal, tongue normal, oropharynx normal and moist mucous membranes Teeth and gingiva: dentition normal Throat: posterior oropharynx normal, tonsils normal and uvula midline Eyes General: appearance normal, both eyes and all related structures Eyelids: eyelids normal Conjunctivae: conjunctivae normal Pupils: PERRL, normal by confrontation and accommodation normal EOM: EOM intact bilaterally Neck Neck: normal visual inspection, trachea midline and no JVD JVD: +5 Carotids: normal carotid upstroke and bounding pulses Chest Chest inspection: normal inspection of the chest, symmetric chest movement and normal respiratory effort Auscultation: Bilateral: Clear to Auscultation Cardio Palpation: normal PMI Rate: regular rate Rhythm: regular rhythm Heart sounds: S1 normal, S2 normal and normal, physiologic split S2; negative rub, gallop or murmur GI GI: normal to inspection, soft, no hepatosplenomegaly and bowel sounds present Neuro General: alert, awake, oriented x3, gait normal, moves all extremities and no focal sensory deficit Skin Skin: no rashes or lesions noted Extremities Pulses: Normal: Right Femoral Pulse, Left Femoral Pulse, Right Dorsalis Pedis Pulse, Left Dorsalis Pedis Pulse, Right Posterior Tibial Pulse, Left Posterior Tibial Pulse, Right Radial Pulse, Left Radial Pulse Lower Extremity Edema: None: Bilateral Musculoskel Musculoskeletal: No joint tenderness Psych Psychological: normal affect Assessment & Plan 1. Exertional dyspnea R06.00 Plan She does have exertional dyspnea the etiology of which is unclear. Her [employer]CH[employer] was noted to be normal. It is possible that this may be due to an anginal equivalent. I would like us to proceed with a left heart catheterization. An echocardiogram should also be performed at some point to assess her ventricular function. Depending on the findings further recommendations will then be made. The risk benefits alternatives have been explained to her she understands and agrees to proceed. Orders Orders: Echo Complete Today 2. Essential (primary) hypertension I10 Plan She does have a history of hypertension which appears to well controlled on the current medical therapy. She would remain on the losartan, hydrochlorothiazide, and metoprolol. No changes were made with respect to the above. 3. Hyperlipidemia E78.5 Plan She does have a history of hyperlipidemia but her lipid status actually appears to be quite fairly well,. I would not recommend we make any changes. Thank you once again for allowing me to participate in her care. Plan Detail Other Orders Orders: Left Heart Cath/COR/LV Percut Today R06.02 Follow Up 6 Months (mmm) Coding Level of Care Code Off vis,new,level 4 Diagnoses Exertional dyspnea R06.00 Essential (primary) hypertension I10 Hyperlipidemia E78.5 Coding Level of Care Code Off vis,new,level 4 Diagnoses Exertional dyspnea R06.00 Essential (primary) hypertension I10 Hyperlipidemia E78.5 Supplemental Info Supplemental Information Labs LDL Cholesterol 54 mg/dL (0-130) 09/25/20 HDL Cholesterol 52 mg/dL (40-) 09/25/20 Triglycerides 109 mg/dL (-199) 09/25/20 VLDL Cholesterol 22 mg/dL (5-40) 09/25/20 Diagnostics Electrocardiogram 10/05/20 Stress Test Nuclear Medicine 09/25/20 Stress Test 09/25/20 Chest X-Ray 10/05/20
--- NOTE | 2020-10-14 08:51 | CL.D_ITS ---
Patient Name: VANESSA KLINE Study Date: 10/14/2020 Performing: Jonathan Eng MD Ht: 64.17 inches 163 cm : 1945 Wt: 222.67 lbs 101 kg Age: 75 Gender: female BSA: 2.05 PROCEDURE(S) PERFORMED LP53-YSZ/COR/LV CLINICAL PROFILE AND INDICATIONS Indications: Other Heart Failure: None Stress/Imaging Stress/Image Study Performed: No CAD Presentations: Other: SOB CONCLUSIONS Non obstructive coronary arteries Normal LV size, wall motion,and systolic function RECOMMENDATIONS Medical therapy Refer to pulmonary DESCRIPTION OF PROCEDURE The patient arrived to the procedure lab. The risks and benefits of the procedure as well as a full d escription of our services here and current unavailability of surgical backup were fully explained to the patient and/or their significant other prior to the catheterization. The Timeout was completed, verifying the correct patient and procedure. The patient's procedural site was prepped and draped in the usual fashion. Local anesthetic was given subcutaneously to right radial region with Lidocaine 2% . Using a modified Seldinger technique, arterial access was obtained via the right radial artery, a 6 Fr sheath was inserted. Right Coronary Artery selective angiography was then performed in multiple v iews using a 5 Fr. 4.0 Casscoe catheter. Left Coronary Artery selective angiography was performed in mu ltiple views using a 5 Fr. 4.0 Casscoe catheter. Left Ventriculography was performed in VASQUEZ projection using a 5 Fr. Pigtail catheter. LV to AO pullback pressures were then recorded.The arterial sheath was pulled and a TR Band was applied for hemostasis CORONARY ANGIOGRAPHY DOMINANCE: Right Dominant LEFT HEART ASSESSMENT Left Ventricular Ejection Fraction: by LV Gram 60 % Normal LV wall motion Normal Left Ventricular systolic function LVEDP: 30 mmHg LEFT MAIN: Angiographically normal LEFT ANTERIOR DESCENDING ARTERY: Mild luminal irregularities less than 30% CIRCUMFLEX ARTERY: No significant disease noted RIGHT CORONARY ARTERY: Mild luminal irregularities COMPLICATIONS No Complications PROCEDURE MEDICATIONS Versed 1 mg IV Fentanyl 50 mcg IV Fentanyl 25 mcg IV Oxygen: 2 L/min via nasal cannula Heparin given IA 10/14/2020 08:11:47 Verapamil 2.5mg, Ntg 100mcgs, 2000 units of Heparin given IA 10/14/2020 08:11:47 SUMMARY OF HEMODYNAMIC DATA Time AIR REST ECG 07:18:39 AO 138/81 (106) SA 08:16:39 LV 146/20, 33 08:27:14 LV 147/19, 30 08:27:21 LV 141/23, 33 08:28:07 LV 141/24, 34 08:28:13 LVp 142/23, 32 08:28:18 AOp 156/88 (116) 08:28:23 Signed By Jonathan Eng MD On 10/14/2020 08:50:16 Jonathan Eng MD
== END 2020-10-14 10:06 | disposition home or self-care (01) ==
LOC: CLSP 06:46
PROVIDERS: PCP Internal Medicine; Referring Provider Internal Medicine Cardiovascular Disease; Visit Provider Internal Medicine Cardiovascular Disease
DX: I11.0 Hypertensive heart disease with heart failure (principal); I50.32 Chronic diastolic (congestive) heart failure; R06.09 Other forms of dyspnea; R06.00 Dyspnea, unspecified; R06.02 Shortness of breath; E78.5 Hyperlipidemia, unspecified; R53.1 Weakness; J42 Unspecified chronic bronchitis; R79.89 Other specified abnormal findings of blood chemistry; G62.9 Polyneuropathy, unspecified; K58.9 Irritable bowel syndrome, unspecified; R10.32 Left lower quadrant pain; M17.12 Unilateral primary osteoarthritis, left knee; R29.6 Repeated falls; D50.9 Iron deficiency anemia, unspecified; N32.81 Overactive bladder; E55.9 Vitamin D deficiency, unspecified; K21.9 Gastro-esophageal reflux disease without esophagitis; F32.9 Major depressive disorder, single episode, unspecified; E66.9 Obesity, unspecified; F17.200 Nicotine dependence, unspecified, uncomplicated; Z79.82 Long term (current) use of aspirin; Z79.899 Other long term (current) drug therapy
CPT/HCPCS: 93458; 99152; 99153; J7040; Q9967; C1769; C1894

== ENCOUNTER 2020-12-01 09:00 | Emergency (ER) | payer MEDICARE, MEDICAID, SELFPAY ==
[2020-10-13 08:42] VITALS: BMI 38.2
[2020-12-01 09:00] VITALS: BP 160/85; PULSE 72; RESP 16; TEMP 36.3; O2SAT 97; BMI 34.3
--- NOTE | 2020-12-01 09:20 | RAD_ITS ---
STUDY: X-RAY - LEFT HAND REASON FOR EXAM: Female, 75 years old. Recent fall. Pain and swelling over the posterior aspect of the hand. TECHNIQUE: 3 view(s) of the hand. COMPARISON: None. FINDINGS: Normal radiocarpal articulation. Normal distal radioulnar joint. Calcification of the triangular fibrocartilage. Normal visualized carpal bones. Normal carpal articulations There is degenerative arthrosis of the carpometacarpal (CMC) articulation of the thumb. Normal second through fifth carpometacarpal joints. Normal metacarpi. Normal metacarpophalangeal joint of the thumb. Normal interphalangeal joint of the thumb. Normal proximal and distal phalanges of the thumb. Normal metacarpophalangeal joints of the second through fifth fingers. There is diffuse articular joint space narrowing of the proximal and distal interphalangeal joints of the second through fifth fingers, but without erosive changes or periarticular soft tissue swelling. Normal phalanges of the second through fifth fingers. Soft tissue swelling. RAD/Hand Min 3 Views IMPRESSION: Degenerative changes of the proximal and distal interphalangeal joints as well as the first carpometacarpal joint. Soft tissue swelling. Electronically Signed: Marco A Do MD at 9:41 EDT , Service support ,
--- NOTE | 2020-12-01 09:24 | EX.ED.GENINJ ---
HPI History of Present Illness Chief Complaint: Fall Informant: patient Onset/Context/Timing Onset: Days (Patient mechanical fall on Tuesday) Mechanism/Context: Blunt Injury and Fall Location of pain/injuries: Right hand, Right Knee, Left hand and Left knee Quality of Pain: Dull and Aching Location: She also reports injury to face/nose Current Severity: Mild Maximum Severity: Moderate Worsened by: Use of hands and legs Relieved by: Improves with rest Associated Symptoms Associated Symptoms: Positive for Parasthesias (History of neuropathy and reason patient falls per neurology eval); Negative for Weakness, Loss of function, Inability to ambulate, Loss of consciousness and Amnesia Narrative Narrative: Patient states she was entering her home on Tuesday. She tripped and lost her balance. She fell forward onto her knees, outstretched hands and struck her face against the ground. She is on a baby aspirin a day. She denies loss of conscious. She is not amnestic. She denies headache. She denies change in vision. She denies any auditory symptoms. She denies inability to open her mouth completely. She wears dentures. She states her dentures feel fine. She denies neck pain. She denies new paresthesia, anesthesia or weakness. She denied cardiac or respiratory symptoms. She denied nausea or vomiting. She denies difficulty breathing out of her nose. Person that is with her is concerned because she had a right and left total knee arthroplasty. Patient states the swelling did not occur immediately and the discoloration has occurred in the last 24 hours. Tetanus Immunization: 5-10 years Prior similar symptoms: Yes Recent Illness/Hospitalization: No PFSH PFSH Medical History Abdominal pain Chronic back pain Chronic bronchitis Chronic headaches Confusion Dark stools DDD (degenerative disc disease) Depression Essential (primary) hypertension Frequent falls GERD (gastroesophageal reflux disease) H/O emotional problems Hyperlipidemia IBS (irritable bowel syndrome) Insomnia Iron deficiency anemia Left lower quadrant pain Left-sided chest wall pain Localized swelling of chest wall Neuropathy Obesity Osteoarthritis Osteoarthritis of left knee Overactive bladder Overactive bladder Pneumonia Vision problems Vitamin D deficiency Home Medications acetaminophen 500 mg tablet 1,000 mg PO Q6H PRN PRN #90 tab 02/07/19 [Rx Last Taken 2 Weeks Ago ~09/10/20] aspirin 81 mg tablet,delayed release 81 mg PO DAILY #90 tab 02/07/19 [Rx Last Taken 10/14/20] cholecalciferol (vitamin D3) 50 mcg (2,000 unit) capsule 4,000 unit PO DAILY cap 09/10/19 [History Last Taken 09/24/20] omeprazole 40 mg capsule,delayed release 40 mg PO DAILY #90 cap 04/11/20 [Rx Last Taken 09/24/20] rosuvastatin 10 mg tablet 10 mg PO QHS #90 tab 07/03/20 [Rx Last Taken 09/23/20] metoprolol succinate 50 mg tablet,extended release 24 hr 50 mg PO BID #90 tab 07/08/20 [Rx Last Taken 10/14/20] sertraline 100 mg tablet 200 mg PO DAILY #180 tab 08/01/20 [Rx Last Taken 09/23/20] potassium chloride 20 mEq tablet,extended release 20 meq PO DAILY #90 tab 08/08/20 [Rx Last Taken 10/14/20] biotin 1 cap PO DAILY 09/24/20 [History Last Taken 09/24/20] multivitamin with minerals 1 tab PO DAILY 09/24/20 [History Last Taken 09/24/20] naloxegol 12.5 mg PO DAILY 09/24/20 [History Last Taken 09/24/20] mirabegron 25 mg tablet,extended release 24 hr 25 mg PO BID #180 tab 09/26/20 [Rx Last Taken 10/14/20] losartan 100 mg tablet 100 mg PO DAILY #90 tab 09/30/20 [Rx Last Taken 10/14/20] hydrochlorothiazide 25 mg tablet 25 mg PO DAILY #90 tablet 10/14/20 [Rx Last Taken Unknown] trazodone 50 mg tablet 50 mg PO QHS #60 tablet 10/28/20 [Rx Last Taken Unknown] sumatriptan succinate 6 mg/0.5 mL subcutaneous pen injector 6 mg SC ONCE PRN #1 ml 11/28/20 [Rx Last Taken Unknown] hydrocodone-acetaminophen 1 tab PO Q6H PRN PRN 3 Days #10 tablet 12/01/20 [Rx Last Taken Unknown] Allergy/AdvReac Type Severity Reaction Status Date / Time adhesive tape Allergy Severe Area Sore Verified 12/01/20 09:04 cefpodoxime [From Vantin] Allergy Unknown Unknown Verified 12/01/20 09:04 codeine Allergy Unknown Unknown Verified 12/01/20 09:04 metronidazole [From Flagyl] Allergy Unknown Unknown Verified 12/01/20 09:04 sulfamethoxazole Allergy Unknown Unknown Verified 12/01/20 09:04 [From Bactrim] trimethoprim [From Bactrim] Allergy Unknown Unknown Verified 12/01/20 09:04 Sulfa (Sulfonamide Allergy Unknown Verified 12/01/20 09:04 Antibiotics) Family History Sister Anesthesia complication Breast cancer Hypertension Mother Arthritis Pancreatic cancer Depression Father Colon cancer Hypertension CVA (cerebral vascular accident) Sister Cancer rectal/kidney/medullary Thyroid cancer Surgical History History of back surgery History of History of cholecystectomy History of gastric surgery History of hernia repair History of hysterectomy History of left heart catheterization (10/14/20) History of right knee joint replacement 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 History of total right knee replacement Hx of breast reduction, elective Social History Smoking Status: Current every day smoker alcohol intake: never substance use type: does not use what type of physical activity do you participate in: none ROS ROS ED Constitutional Constitutional ED: Denies chills, fever(s) or sweats Eyes Eyes: Reports other Details: She denies double vision with central gaze or upward gaze. ; Denies blurry vision or change in vision ENT ENT ED: Reports other Details: She denies ringing in her ears or decreased hearing. ; Denies ear pain, rhinorrhea or sore throat Cardiovascular Cardiovascular: Denies chest pain Respiratory/Chest Respiratory/Chest: Denies cough, dyspnea or dyspnea on exertion Gastrointestinal Gastrointestinal: Denies abdominal pain, melena, nausea or vomiting Genitourinary Genitourinary ED: Denies dysuria or hematuria Musculoskeletal Musculoskeletal: Reports other Details: Complains of right and left hand pain as well as right and left knee pain. ; Denies arthralgias, back pain, myalgias or neck pain Integumentary Reports other Details: Bruising is noted dorsal surface of right and left hand and right and left knee. ; Denies abscess, Abrasions or rash Neurologic Neurologic: Reports paresthesias RLE and LLE; Denies headache(s) or weakness Psychiatric Psychiatric: Denies anxiety or depression Hematologic/Lymphatic Hematologic/Lymphatic: Reports easy bruising; Denies easy bleeding Allergic/Immunologic Allergic/Immunologic ED: Denies urticaria EXAM Physical Exam Const Vital Signs: 12/01/20 09:00 12/01/20 09:43 Temperature 97.4 F L Temperature Source Temporal Pulse Rate 72 Respiratory Rate 16 Respiratory Effort Normal Non-Labored Respiratory Depth Normal Respiratory Pattern Normal Blood Pressure 160/85 H Blood Pressure Mean 110 Pulse Ox 97 Oxygen Delivery Method Room Air Room Air Positive well nourished, well developed and obese General Appearance ED: well developed and NAD Nutritional Appearance: obese HEENT Reports TM's clear HEENT Narrative: There is no hemotympanum. Negative barroso sign. No septal hematoma noted. There is pain to palpation over the nose. There is no asymmetry. There is no hyperesthesia of the informal nerve. There is no step-off with palpation of the infraorbital rim. There is no evidence of entrapment. trauma and tenderness Nose: Negative for septum abnormal Tympanic Membrane ED: Yes TM's clear Eyes PERRL and EOMs intact bilaterally General Eye ED: Yes other Other Details: There is no subconjunctival hemorrhage noted. Sclerae anicteric. Neck full ROM General: Negative for tenderness Chest Wall inspection of chest normal; Negative for palpation of chest normal Resp normal respiratory effort and clear to auscultation bilaterally Cardio regular rhythm, S1 normal heart sound, S2 normal heart sound and no murmurs Rate: regular rate GI normal to inspection, nondistended, normoactive bowel sounds Back/Spine normal to inspection General Back: Negative for CVA tenderness Extremity full ROM; Negative for normal to inspection Extremity Narrative: There is bruising noted inferior to the right and left patella. There is no pain the patient of the right or left patella. She has full extension and flexion. There is no laxity with varus valgus stress testing. There is no increased laxity with Nette's test. There is mild pedal edema right and left. Left is slightly greater. There is a faint PT pulse noted bilaterally. Patient has pain outpatient over the first metacarpal bone left hand. Axial loading causes discomfort over the first metacarpal bone. There is no pain the patient in the anatomical snuffbox. She has full extension flexion of her thumb and fingers. Capillary refill is normal. Sensations intact. There is no subungual hematoma noted. There is slight discoloration dorsal surface of the right hand. There is no point tenderness. Median, radial and ulnar function intact bilaterally. General Extremety ED: Yes edema; Negative for deformity General Extremity: edema; Negative for deformity Neuro oriented x3, CN's II-XII intact bilaterally, moves all extremities and no sensory deficits noted [place] Coma Scale: document GCS findings Spontaneous Obeys Commands Oriented 15 Sensorium / Orientation: alert Motor Exam: strength 5/5 throughout Psych mental status grossly normal and thought process normal Skin no rashes or lesions noted and no wounds Skin Narrative: Bruising noted as previously described. Wounds: wounds noted MDM MDM MDM Narrative Medical decision making narrative: X-ray of the hand was obtained to evaluate for fracture versus contusion of the left hand and specifically the first metacarpal bone. C-spine was cleared per Nexus criteria. Since patient did not have loss of conscious was not dazed and has a nonfocal neurologic exam with a GCS of 15. [place] CT head rule imaging was not obtained. X-ray of the right or left knee clinically is not indicated. Furthermore, since there is no point tenderness with examination of the left hand x-ray was not obtained. Patient was given oral medication for discomfort. Radiography Diagnostic Testing: Radiology Impression Hand X-Ray 12/01/20 09:20 IMPRESSION: Degenerative changes of the proximal and distal interphalangeal joints as well as the first carpometacarpal joint. Soft tissue swelling. Electronically Signed: Marco A Do MD at 9:41 EDT , Service support , Three-view x-ray of the hand was interpreted as no evidence of acute fracture. There is degenerative changes noted involving multiple joints. There is evidence of soft tissue swelling. The interpretation by radiologist was reviewed and we are in agreement. Discharge Plan Triage Chief Complaint: Fall ED Provider: Joshua Santiago Dx/Rx/DC Orders Clinical Impression: Injury due to fall, Contusion of left hand, initial encounter, Contusion of right hand, initial encounter, Contusion of right knee, initial encounter, Contusion of left knee, initial encounter, Sprain of anterior talofibular ligament of left ankle, Contusion of face Instructions: ED Hand Contusion, ED Contusion, Lower Extremity, ED Facial Contusion, ED Ankle Sprain (Adult) Prescriptions: New hydrocodone-acetaminophen 5-325 mg tablet 1 tab PO Q6H PRN PRN (Reason: Pain) 3 Days Qty: 10 RF: 0 No Action cholecalciferol (vitamin D3) 50 mcg (2,000 unit) capsule 4,000 unit PO DAILY RF: 0 multivitamin with minerals 1 EACH tablet 1 tab PO DAILY RF: 0 naloxegol 12.5 MG tablet 12.5 mg PO DAILY RF: 0 biotin 2,500 MCG capsule 1 cap PO DAILY RF: 0 hydrochlorothiazide 25 mg tablet 25 mg PO DAILY Qty: 90 RF: 3 acetaminophen 500 mg tablet 1,000 mg PO Q6H PRN PRN (Reason: Mild Pain (-10/01)) Qty: 90 RF: 0 aspirin 81 mg tablet,delayed release (DR/EC) 81 mg PO DAILY Qty: 90 RF: 1 omeprazole 40 mg capsule,delayed release(DR/EC) 40 mg PO DAILY Qty: 90 RF: 3 rosuvastatin 10 mg tablet 10 mg PO QHS Qty: 90 RF: 1 metoprolol succinate 50 mg tablet extended release 24 hr 50 mg PO BID Qty: 90 RF: 3 sertraline 100 mg tablet 200 mg PO DAILY Qty: 180 RF: 1 potassium chloride 20 mEq tablet extended release 20 meq PO DAILY Qty: 90 RF: 1 mirabegron 25 mg tablet extended release 24 hr 25 mg PO BID Qty: 180 RF: 3 losartan 100 mg tablet 100 mg PO DAILY Qty: 90 RF: 2 trazodone 50 mg tablet 50 mg PO QHS Qty: 60 RF: 4 sumatriptan succinate [Imitrex STATdose Pen] 6 mg/0.5 mL pen injector 6 mg SC ONCE PRN (Reason: migraine headache) Qty: 1 RF: 0 Primary Care Provider: Katiana Rayo Referrals: Katiana Rayo MD [Primary Care Provider] - 1 Week if not improving Disposition Disposition: Home, self care
[2020-12-01 11:13] VITALS: PULSE 76; RESP 17; O2SAT 96
== END 2020-12-01 11:14 | disposition home or self-care (01) ==
PROVIDERS: Emergency Provider Emergency Medicine; PCP Internal Medicine
DX: S60.222A Contusion of left hand, initial encounter (principal); S60.221A Contusion of right hand, initial encounter; S80.01XA Contusion of right knee, initial encounter; S80.02XA Contusion of left knee, initial encounter; S93.492A Sprain of other ligament of left ankle, initial encounter; S00.83XA Contusion of other part of head, initial encounter; E66.9 Obesity, unspecified; F17.200 Nicotine dependence, unspecified, uncomplicated; W01.10XA Fall on same level from slipping, tripping and stumbling with subsequent striking against unspecified object, initial encounter; Z79.82 Long term (current) use of aspirin
CPT/HCPCS: 73130; 99282

== ENCOUNTER 2020-12-23 11:00 | Outpatient (RCR) | payer MEDICARE, MEDICAID, SELFPAY ==
[2020-10-13 08:42] VITALS: BMI 38.2
--- NOTE | 2020-10-27 12:50 | HP.PTEVAL ---
Patient's Visit Information VANESSA KLINE is a 75 year old F referred to Physical Therapy by Dr. Katiana Rayo MD with a diagnosis of falls, dizziness, dorsalgia, and L knee OA. Date of Evaluation: 10/24/20 Physical Therapist: Rehan Kim DPT - Visit Plan Frequency: 2x /Week Duration: 4-6 Weeks Plan: 1.) Start with BLE strengthening progress to HEP. 2.) progress walking endurance, eventually progressing walking program to increase cardiovascular endurnace. 3.) Add in static and dynamic balance on multiple surfaces with and without eyes closed. - Subjective Pt. is here today for her initial evaluation with diagnosis of falls, dizziness, dorsalgia, and L knee OA. Pt. reports fall twice over the past few months and being very short of breath with minimal activities. She has been doing less since COV, but is having to stop half way with shopping and needing to sit due to fatigue and shortness of breath. Pt. has recently had a heart work up and catherization, but all checked out well. She is scheduled to see a psychiatry adult physician in a few weeks to check out her pulomonary function as well. She denies N/T in any extermities. Pt. reprots occassional dizziness with getting up and down, but nothing with rolling in bed or with other positional changes. Pt. reports her largest consern is with her shortness of breath. She is hopeful to increase her balance and endurance. - Objective POSTURE: Pt. has slight FH posture. Pt. is able to stand without AD, but does use a cane to assist with stability. Pt. has a wide KHALIF in stance as well. PALPATION: Pt. has no pain with palpation of BLEs, except some slight soreness at lateral joint line of L knee. No instability noted. NEURO: Pt. has normal sensation and normal DTR of BLes. Pt. is able to rise on heels and toes, but did require a balance aide for stability. ROM: Pt. has tightness throughout her trunk and B hips. TIghtness in her HS and hip flexors as well. Pt. has tigth calves into DF. MMT: RLE- ankle PF 4+/5, DF 4+/5, EVR 4/5, INV 4/5; knee ext 4+/5, flexion 4+/5; hip- flexion 4/5, abd 4/5, ext 4/5. LLE: ankle PF 4+/5, DF 4+/5, EVR 4/5, INV 4/5; knee ext 4+/5, flexion 4+/5; hip- flexion 4/5, abd 4/5, ext 4/5. Core strength: poor. GAIT: Pt. ambulates with single pain cane. She has reduced tempo, decreased step length bilaterally; and increased lateral hip sway bilaterally. Pt. has increased difficulty without AD as well. All of her falls have occured when she is walking without AD. STAIRS: Pt. is able to complete with step to pattern without LOB with use of BHR, heavy use of UEs. Methodical pattern with decending. TU.9 sec without AD. 6MWT: Pt. ambulated for 1 min and 36sec with single point cane. She ambulated 178ft. Pt. reports shortness of breath as limiting factor. SpO2 95% with testing. HR: 77 bpm. - Balance Scores Functional Gait Assessment Score: 12 % Disability: 60.0000 CATSIB Score (Max score 120 seconds): 19 - Goals Goal 1:: LTG: Pt. to be I with HEP. Goal Time Frame: 4-6 Weeks Goal 2:: LTG: pt. to have increased BLE strength to atleast 4+/5 throughout. Goal Time Frame: 4-6 Weeks Goal 3:: LTG: Pt. to walk safely with single point cane throughout grocery store with normal gait pattern Goal Time Frame: 4-6 Weeks Goal 4:: LTG: Pt. to complete 6 MWT without visible shortness of breath. Goal Time Frame: 4-6 Weeks Goal 5:: LTG: Pt. to have increased FGA to 18/30 indicating reduced risk for future falls. Goal Time Frame: 4-6 Weeks Goal 6:: LTG: pt. to complete TUG assessment in 12 sec indicating increased stability with gait. Goal Time Frame: 4-6 Weeks - Rehabilitation Potential Physical Therapy Diagnosis: Pt. has signs and symptoms consistent with falls, dizziness, dorsalgia, and L knee OA. Pt. has subsequent general hypomobility most noted in hips and ankles. She has weakness in BLEs and overall decreased endurnace and fatigue. She become short of breath with walking upto 178' today with a little over walking 1.5 minutes. Pt. also shorted marked instability with standing/walking with eyes closed and with narrow KHALIF. Pt. would benefit from PT to address the above limitations progressing balance and safety to reduce furture falls and increased endurance. Rehabilitation Potential: Good - Anticipated Interventions Patient/Client Instruction: Educate patient on: Condition, Plan of Care, Risk Factors, Benefits of Fitness Program For the Purpose of:: To facilitate caregiver knowledge, To improve self management, To prevent re-injury, To improve ability to perform tasks related to life management, To improve tolerance to ADL's Therapeutic Exercise to Include: Strength training, Power training, Endurance training, Balance training, Body mechanics, Postural training, Flexibilty training, Gait and locomotor training, Passive ROM, Active ROM For the Purpose of:: To decrease pain, To decrease swelling/inflammation, To increase ROM, To improve nutrient delivery to tissue, To increase oxygenation perfusion, To improve muscle performance and motor function, To improve ability to perform ADL's, To improve ability of physical actions for home/community/work/leisure, To improve gait and locomotor functions, To improve health of tissue, To increase flexibility/ROM, To improve endurance, To improve balance Thank you for the opportunity to evaluate your patient. For Medicare and Medicare HMO plans, please review the plan of care and approve it. It will need to be FAXED BACK to us at [phone] for Medicare purposes. For Medicare only, by signing this I certify the plan of care. Please let me know if there are questions or concerns regarding this plan of care. Physician Signature: Date:
--- NOTE | 2020-12-23 15:46 | HP.PTDCSUM ---
It has been my pleasure to treat VANESSA KLINE referred by Dr. Katiana Rayo MD, with the diagnosis of falls, dizziness, dorsalgia, and L knee OA for a total of 7 visit(s). Discharge Date: 12/23/20 Please see the following information for a summary of their discharge status. Subjective: Pt. states that she had her second COVID vaccine last week and is why she needed to cancel. She is doing well today and is still using her rollator at home and around the community because she fears she will fall without it. L knee Pain Intensity (Out of 10): Unrated % Improvement: 85 Objective/Function: MMT: hip flex bilat 5/5, knee ext bilat 5/5, knee flex bilat 5/5, hip abduction bilat 4+/5. TU.3 sec with use of rollator. FGA: 28/30 with use of rollator for the entire test. The pt. did well with PT today and met most of her goals for therapy. She was able to complete all tests without feeling or displaying SOB. She will be discharged today. Goal 1:: LTG: Pt. to be I with HEP. Goal Progress: Goal Met Goal 2:: LTG: pt. to have increased BLE strength to atleast 4+/5 throughout. Goal Progress: Goal Met Goal 3:: LTG: Pt. to walk safely with single point cane throughout grocery store with normal gait pattern. 12/23/2020: Pt. is now ambulating with a rollator in her home and in the community due to a fall she had a few weeks ago. The pt. ambulates well with the rollator and has a normal gait pattern. Goal 4:: LTG: Pt. to complete 6 MWT without visible shortness of breath. Goal Progress: Goal Met Goal 5:: LTG: Pt. to have increased FGA to 18/30 indicating reduced risk for future falls. 12/23/2020: Pt. is now walking with a rollator and exhibits a normal gait pattern and balance with the use of this. Goal Progress: Goal Met Goal 6:: LTG: pt. to complete TUG assessment in 12 sec indicating increased stability with gait. Goal Progress: Goal Met Plan: The pt. will be discharged today and will call if she feels she needs therapy again. Discharge Comments: The pt. did well with therapy and was able to progress her bilateral lower extremity strength, balance, and endurance. The pt. fell a couple of weeks ago at home and since then ahs been using a rollator at home and in the community. The pt. feels safer using this and will continue to use the rollator at all times. The pt. met all of her goals that were made and is interested in the [employer] exercise program that is located here at [facility]. She was educated about exercises she can do at home, as well as how important it is to walk everyday to increase her endurance and decrease her shortness of breath. If there are questions or concerns regarding this patient's physical therapy, please feel free to call me at [phone]. Thank you for the referral of this patient. Sincerely, Rehan Kim DPT
== END 2020-12-23 19:00 | disposition home or self-care (01) ==
LOC: PT 11:00
PROVIDERS: PCP Internal Medicine; Referring Provider Internal Medicine; Visit Provider Internal Medicine
DX: R42 Dizziness and giddiness (principal); W19.XXXD Unspecified fall, subsequent encounter; M54.9 Dorsalgia, unspecified; G89.29 Other chronic pain; M17.12 Unilateral primary osteoarthritis, left knee; Z98.890 Other specified postprocedural states
CPT/HCPCS: 97110; 97161; 97164; 97530

== ENCOUNTER → 2021-01-07 09:38 | Outpatient (CLI) | payer MEDICARE, MEDICAID, SELFPAY ==
[2020-12-08 09:45] VITALS: BMI 34.3
--- NOTE | 2021-01-07 09:42 | RAD_ITS ---
STUDY: X-RAY - LUMBAR SPINE REASON FOR EXAM: Female, 75 years old. FALL/pain TECHNIQUE: 3 view(s) of the lumbar spine were obtained. COMPARISON: Prior lumbar spine films of 03/06/2019 FINDINGS: There is reversal of the normal lumbar lordosis. Moderate levoscoliosis. There is a normal alignment of the vertebrae. Moderate to severe degenerative disc narrowing and spondylitic endplate changes which is most severe on the concave side of the scoliotic curvature, the right side, at L2-3, L3-4 and L4-5. Negative for fracture or deformity. Diffuse facet arthrosis greater on the right than the left. And epidural device has been placed since the prior exam which terminates at the level of T9 and T10. RAD/Lumbar Spine 2 or 3 Views IMPRESSION: Stable moderate levoscoliosis of the lumbar spine with degenerative disc and joint changes as described above not substantially changed from prior exam. Negative for acute fracture of the cervical spine. Electronically Signed: Jane Faust MD at 17:36 EDT , Service support ,
== END ==
PROVIDERS: PCP Internal Medicine; Referring Provider Anesthesiology Pain Medicine; Visit Provider Anesthesiology Pain Medicine
DX: Z04.3 Encounter for examination and observation following other accident (principal); M54.5 Low back pain
CPT/HCPCS: 72100

== ENCOUNTER → 2021-02-03 08:15 | Outpatient (CLI) | payer MEDICARE, MEDICAID, SELFPAY ==
[2020-12-08 09:45] VITALS: BMI 34.3
--- NOTE | 2021-02-03 08:26 | VDLE_ITS ---
Reason For Study: EDEMA RIGHT LEFT GSV is normal. GSV is normal. CFV is compressible, spontaneous, phasic, CFV is compressible, spontaneous, phasic, competent and demonstrates normal competent, and demonstrates normal augmentation. augmentation. FV is compressible, spontaneous, phasic, FV is compressible, spontaneous, phasic, competent and demonstrates normal competent and demonstrates normal augmentation. augmentation. POP V is compressible, spontaneous, phasic, POP V is compressible, spontaneous, phasic, competent and demonstrates normal competent and demonstrates normal augmentation. augmentation. T/P Trunk is compressible. T/P Trunk is compressible. PTV is compressible. PTV is compressible. RT PerV is compressible. LT PerV is compressible. Procedure This is a venous duplex using B-mode, color flow and spectral Doppler. Exam performed in department. The exam was diagnostic. A preliminary report was called and/or faxed to Dr. Gaxiola @ [phone] @ 9:10 am. VL/Venous Duplex US - Amarjit Extrem Interpretation Summary Deep veins of the lower extremities are bilaterally patent and compressible seg mentally. There is no evidence of deep vein thrombosis on either side. Valvular competence appears in tact within the proximal deep venous systems bilaterally. The great saphenous veins appear bila terally patent and compressible segmentally. Ordering Physician: Damon Gaxiola Referring Physician: Katiana Rayo Performed By: Shade ZAYAS RDCS, Gladys and Student
[2021-02-03 08:52] LABS: D-Dimer Quantitative (DVT/PE) 0.49 FEU/ug/m (0.27-0.49)
== END ==
PROVIDERS: PCP Internal Medicine; Referring Provider Internal Medicine Pulmonary Disease; Visit Provider Internal Medicine Pulmonary Disease
DX: R60.0 Localized edema (principal); R06.00 Dyspnea, unspecified
CPT/HCPCS: 36415; 85379; 93970

== ENCOUNTER → 2021-02-16 07:22 | Outpatient (CLI) | payer MEDICARE, MEDICAID, SELFPAY ==
[2020-12-08 09:45] VITALS: BMI 34.3
[2021-02-16 08:13] LABS: Hematocrit 43.5 % (37-47); Hemoglobin 13.2 g/dL (12.0-15.0); Mean Corp Hgb Conc 30.3 g/dL (32-36); Mean Corpuscular Hgb 26.9 pg (27.0-32.0); Mean Corpuscular Volume 88.8 fL (81-99); Mean Platelet Vol. 9.5 fl (6.2-12.0); Platelet Count 255 K/mm3 (150-450); RBC Distribution Width CV 14.7 % (11.6-14.6); RBC Distribution Width SD 47.6 fl (35.1-43.9); White Blood Count 9.4 K/mm3 (4.4-11.0)
[2021-02-16 08:48] LABS: Iron 52 ug/dL (50-170); Iron Binding Capacity,Total 423 ug/dL (250-450); Thyroid Stim Hormone (TSH) 2.67 uIU/mL (0.358-3.74)
== END ==
PROVIDERS: PCP Internal Medicine; Referring Provider Internal Medicine Pulmonary Disease; Visit Provider Internal Medicine Pulmonary Disease
DX: R06.00 Dyspnea, unspecified (principal); I10 Essential (primary) hypertension; Z86.2 Personal history of diseases of the blood and blood-forming organs and certain disorders involving the immune mechanism
CPT/HCPCS: 36415; 83540; 83550; 84439; 84443; 85027

== ENCOUNTER 2021-02-28 14:48 | Emergency (ER) | payer MEDICARE, MEDICAID, SELFPAY ==
[2020-12-08 09:45] VITALS: BMI 34.3
[2021-02-28 14:48] VITALS: BP 144/75; PULSE 71; RESP 16; TEMP 37.1; O2SAT 97; BMI 39.6
--- NOTE | 2021-02-28 15:07 | ED.VIS.FALL ---
HPI HPI - Fall History of Present Illness Chief Complaint: Fall Informant: patient and family Occured/Mechanism Occurred: Today and Hours Mechanism/Context: Yes same level fall, Yes trip, No cannot recall fall and No prodromal Usually ambulates: Walker Pain/Injury Pain Location: face and upper extremity Quality of Pain: Dull and Aching Current Severity: Mild Maximum Severity: Mild Associated Symptoms Associated Symptoms: Negative for Parasthesias, Weakness, Loss of function, Inability to ambulate, Loss of consciousness and Amnesia Narrative Prior similar symptoms: No Recent Illness/Hospitalization: No PFSH PFSH Medical History Abdominal pain Asthma Chronic back pain Chronic bronchitis Chronic headaches Confusion Dark stools DDD (degenerative disc disease) Depression Essential (primary) hypertension Frequent falls GERD (gastroesophageal reflux disease) H/O emotional problems Hyperlipidemia IBS (irritable bowel syndrome) Insomnia Iron deficiency anemia Left lower quadrant pain Left-sided chest wall pain Localized swelling of chest wall Neuropathy Obesity Osteoarthritis Osteoarthritis of left knee Overactive bladder Overactive bladder Pneumonia Vision problems Vitamin D deficiency Home Medications acetaminophen 500 mg tablet 1,000 mg PO Q6H PRN PRN #90 tab 02/07/19 [Rx Last Taken 2 Weeks Ago ~09/10/20] aspirin 81 mg tablet,delayed release 81 mg PO DAILY #90 tab 02/07/19 [Rx Last Taken 10/14/20] cholecalciferol (vitamin D3) 50 mcg (2,000 unit) capsule 4,000 unit PO DAILY cap 09/10/19 [History Last Taken 09/24/20] omeprazole 40 mg capsule,delayed release 40 mg PO DAILY #90 cap 04/11/20 [Rx Last Taken 09/24/20] biotin 1 cap PO DAILY 09/24/20 [History Last Taken 09/24/20] multivitamin with minerals 1 tab PO DAILY 09/24/20 [History Last Taken 09/24/20] naloxegol 12.5 mg PO DAILY 09/24/20 [History Last Taken 09/24/20] mirabegron 25 mg tablet,extended release 24 hr 25 mg PO BID #180 tab 09/26/20 [Rx Last Taken 10/14/20] losartan 100 mg tablet 100 mg PO DAILY #90 tab 09/30/20 [Rx Last Taken 10/14/20] hydrochlorothiazide 25 mg tablet 25 mg PO DAILY #90 tablet 10/14/20 [Rx Last Taken Unknown] trazodone 50 mg tablet 50 mg PO QHS #60 tablet 10/28/20 [Rx Last Taken Unknown] hydrocodone-acetaminophen 1 tab PO Q6H PRN PRN 3 Days #10 tablet 12/01/20 [Rx Last Taken Unknown] metoprolol succinate 50 mg tablet,extended release 24 hr 50 mg PO BID #90 tab 12/18/20 [Rx Last Taken Unknown] rosuvastatin 10 mg tablet 10 mg PO QHS #90 tab 12/23/20 [Rx Last Taken Unknown] sumatriptan succinate 25 mg tablet See Rx Instructions PO .COMPLEX #14 tab 12/25/20 [Rx Last Taken Unknown] potassium chloride 20 mEq tablet,extended release 20 meq PO DAILY #90 tab 01/15/21 [Rx Last Taken Unknown] sertraline 100 mg tablet 200 mg PO DAILY #180 tab 01/15/21 [Rx Last Taken Unknown] Allergy/AdvReac Type Severity Reaction Status Date / Time adhesive tape Allergy Severe Area Sore Verified 02/28/21 14:59 cefpodoxime [From Vantin] Allergy Unknown Unknown Verified 02/28/21 14:59 codeine Allergy Unknown Unknown Verified 02/28/21 14:59 metronidazole [From Flagyl] Allergy Unknown Unknown Verified 02/28/21 14:59 sulfamethoxazole Allergy Unknown Unknown Verified 02/28/21 14:59 [From Bactrim] trimethoprim [From Bactrim] Allergy Unknown Unknown Verified 02/28/21 14:59 Sulfa (Sulfonamide Allergy Unknown Verified 02/28/21 14:59 Antibiotics) Family History Sister Anesthesia complication Breast cancer Hypertension Mother Arthritis Pancreatic cancer Depression Father Colon cancer Hypertension CVA (cerebral vascular accident) Sister Cancer rectal/kidney/medullary Thyroid cancer Surgical History History of back surgery History of History of cholecystectomy History of gastric surgery History of hernia repair History of hysterectomy History of left heart catheterization (10/14/20) History of right knee joint replacement 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 History of total right knee replacement Hx of breast reduction, elective Social History Smoking Status: Former smoker alcohol intake: never substance use type: does not use what type of physical activity do you participate in: none ROS ROS ED ROS Narrative Patient denies recent illness. Review of Systems ROS Unobtainable: Denies due to encephalopathy Constitutional Constitutional ED: Denies chills, fever(s) or sweats Eyes Eyes: Denies change in vision ENT ENT ED: Denies ear pain or sore throat Cardiovascular Cardiovascular: Denies chest pain Respiratory/Chest Respiratory/Chest: Denies cough or dyspnea Gastrointestinal Gastrointestinal: Denies abdominal pain, diarrhea, nausea or vomiting Genitourinary Genitourinary ED: Denies dysuria or hematuria Musculoskeletal Musculoskeletal: Denies myalgias Integumentary Denies rash Neurologic Neurologic: Denies headache(s) Psychiatric Psychiatric: Denies depression Endocrine Endocrinology: Denies polyuria Hematologic/Lymphatic Hematologic/Lymphatic: Denies easy bruising Allergic/Immunologic Allergic/Immunologic ED: Denies urticaria EXAM Physical Exam Narrative Exam Narrative: 75-year-old female no acute distress. Vital signs stable afebrile. HEENT exam pupils round react to light. Small laceration left eyebrow less than a centimeter. Will be Dermabond repair. Minimal oozing of blood. No dental injury. Scalp nontender no hematoma. C-spine nontender trachea midline. Normal range of motion. Lungs clear to auscultation bilaterally. Heart regular rhythm no murmur. Chest wall nontender. Abdomen soft nontender normal bowel sounds no peritoneal signs. Pelvic girdle intact. Hips nontender no shortening or rotation. Right upper extremity both lower extremities are nontender normal range of motion. No deformity. Left forearm has mild tenderness no deformity. Normal range of motion of left shoulder elbow wrist and hand. 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 Back nontender. Spine nontender. Neurologically she is awake and alert. She knows day month year and president. She is acting normally. Her GCS is 15. Const Vital Signs: 02/28/21 14:48 02/28/21 14:52 Temperature 98.8 F Temperature Source Temporal Pulse Rate 71 Respiratory Rate 16 Respiratory Effort Normal Non-Labored Blood Pressure 144/75 H Blood Pressure Mean 98 Pulse Ox 97 Oxygen Delivery Method Room Air Room Air Oxygen Flow Rate (L/min) 97 Positive well nourished and well developed; Negative for obese, cachectic, contractures or unkempt General Appearance ED: well developed and NAD; Negative for unkempt, cachectic or contractures Nutritional Appearance: Negative for cachectic or obese HEENT Reports normocephalic HEENT Narrative: Left eyebrow superficial 1 cm laceration. trauma and tenderness; Negative for atraumatic Eyes PERRL and EOMs intact bilaterally Neck full ROM, no lymphadenopathy and supple General: Negative for tenderness Chest Wall inspection of chest normal and palpation of chest normal Resp normal respiratory effort, no retractions and clear to auscultation bilaterally Auscultation: Negative for rales, rhonchi or wheezes Cardio regular rate, regular rhythm, S1 normal heart sound, S2 normal heart sound and no murmurs Rate: Negative for tachycardic Rhythm: Negative for abnormal rhythm GI non-tender, non-distended and no masses Inspection: Negative for abdominal distention Auscultation: normoactive bowel sounds Palpation: soft; Negative for guarding or rebound tenderness present Back/Spine no CVA tenderness General Back: Negative for CVA tenderness Cervical Spine: Negative for cervical spine tenderness Thoracic Spine / Upper Back: Negative for thoracic spinal tenderness Lumbar Spine / Lower Back: Negative for lumbar spinal tenderness Extremity normal to inspection, full ROM, normal capillary refill, no joint enlargement, no clubbing, cyanosis or edema, no calf tenderness and no pedal edema Extremity Narrative: Mild left forearm tenderness no deformity. Normal range of motion both shoulders, elbows, wrists and hands. Lower extremities are unremarkable. Neuro [place] Coma Scale: document GCS findings Spontaneous Obeys Commands Oriented 15 Psych mental status grossly normal Appearance: Negative for unkempt Skin Lesions: no lesions Rashes: no rashes MDM MDM MDM Narrative Medical decision making narrative: 75-year-old female normally uses a walker she could out of the car tripped on the curb falling hitting her left eyebrow. And complaining of left forearm discomfort. No LOC. The only blood thinner she is on is aspirin. She denies any significant headache. No neck pain. No other complaints. I do not think she needs any imaging of her brain or neck. We will obtain a left forearm x-ray. I will Dermabond repair the superficial small laceration to her left eyebrow. Repeat exam patient doing well. I went over the x-rays with her and family. I then Dermabond to the left eyebrow laceration. Nurses will ambulate patient prior to discharge. Radiography Diagnostic Testing: Left forearm x-ray 2 views AP and lateral interpreted by myself shows no acute abnormality no fracture. No dislocation. Discharge Plan Triage Chief Complaint: Fall ED Provider: Jose Antonio Marte Dx/Rx/DC Orders Clinical Impression: Fall, Head injury, Laceration of eyebrow, left, Contusion of forearm, left Instructions: ED Contusion, Upper Extremity, ED Head Injury (Adult), ED Laceration, Face: Skin Glue Prescriptions: No Action cholecalciferol (vitamin D3) 50 mcg (2,000 unit) capsule 4,000 unit PO DAILY RF: 0 multivitamin with minerals 1 EACH tablet 1 tab PO DAILY RF: 0 naloxegol 12.5 MG tablet 12.5 mg PO DAILY RF: 0 biotin 2,500 MCG capsule 1 cap PO DAILY RF: 0 hydrochlorothiazide 25 mg tablet 25 mg PO DAILY Qty: 90 RF: 3 hydrocodone-acetaminophen 5-325 mg tablet 1 tab PO Q6H PRN PRN (Reason: Pain) 3 Days Qty: 10 RF: 0 acetaminophen 500 mg tablet 1,000 mg PO Q6H PRN PRN (Reason: Mild Pain (-10/01)) Qty: 90 RF: 0 aspirin 81 mg tablet,delayed release (DR/EC) 81 mg PO DAILY Qty: 90 RF: 1 omeprazole 40 mg capsule,delayed release(DR/EC) 40 mg PO DAILY Qty: 90 RF: 3 mirabegron 25 mg tablet extended release 24 hr 25 mg PO BID Qty: 180 RF: 3 losartan 100 mg tablet 100 mg PO DAILY Qty: 90 RF: 2 trazodone 50 mg tablet 50 mg PO QHS Qty: 60 RF: 4 metoprolol succinate 50 mg tablet extended release 24 hr 50 mg PO BID Qty: 90 RF: 3 rosuvastatin 10 mg tablet 10 mg PO QHS Qty: 90 RF: 1 sumatriptan succinate 25 mg tablet See Rx Instructions PO .COMPLEX Qty: 14 RF: 1 potassium chloride 20 mEq tablet extended release 20 meq PO DAILY Qty: 90 RF: 1 sertraline 100 mg tablet 200 mg PO DAILY Qty: 180 RF: 1 Primary Care Provider: Katiana Rayo Referrals: Katiana Rayo MD [Primary Care Provider] - As Needed Activity Restrictions/Additional Instructions: Do not disturb the left eyebrow skin glue. It will come off over the next week. Ice to left forearm. Tylenol for pain. If you develop a severe headache, vomiting or not acting right return to be evaluated. At this time you do not need a CAT scan of your head. Disposition Disposition: Home, Self Care
--- NOTE | 2021-02-28 15:16 | RAD_ITS ---
STUDY: X-RAY - LEFT RADIUS AND ULNA REASON FOR EXAM: Female, 75 years old. fall, pain TECHNIQUE: 2 view(s) of the forearm. COMPARISON: None. FINDINGS: There is no demonstrated soft tissue swelling. Normal visualized radius. Normal visualized ulna. RAD/Forearm 2 Views IMPRESSION: No fracture or malalignment. Electronically Signed: Miki Mccray MD ([place]) at 15:46 EDT , Service support ,
[2021-02-28 16:32] VITALS: BP 146/76; PULSE 81; RESP 18; O2SAT 97
== END 2021-02-28 16:32 | disposition home or self-care (01) ==
PROVIDERS: Emergency Provider Emergency Medicine; PCP Internal Medicine
DX: S01.112A Laceration without foreign body of left eyelid and periocular area, initial encounter (principal); S50.12XA Contusion of left forearm, initial encounter; R40.2412 Glasgow coma scale score 13-15, at arrival to emergency department; W18.09XA Striking against other object with subsequent fall, initial encounter; Y93.9 Activity, unspecified; Y92.9 Unspecified place or not applicable; Y99.9 Unspecified external cause status; R29.6 Repeated falls; J45.909 Unspecified asthma, uncomplicated; J42 Unspecified chronic bronchitis; I10 Essential (primary) hypertension; E78.5 Hyperlipidemia, unspecified; N32.81 Overactive bladder; M17.12 Unilateral primary osteoarthritis, left knee; K21.9 Gastro-esophageal reflux disease without esophagitis; Z79.82 Long term (current) use of aspirin; Z79.899 Other long term (current) drug therapy; Z87.891 Personal history of nicotine dependence; Z96.651 Presence of right artificial knee joint
CPT/HCPCS: 12011; 73090; 99284

== ENCOUNTER → 2021-06-26 14:48 | Outpatient (CLI) | payer MEDICARE, MEDICAID, SELFPAY ==
[2021-06-26 16:18] LABS: Ferritin 19 ng/mL (8-252)
== END ==
PROVIDERS: PCP Internal Medicine; Visit Provider Internal Medicine Pulmonary Disease
DX: D64.9 Anemia, unspecified (principal)
CPT/HCPCS: 36415; 82728

== ENCOUNTER 2021-08-12 14:12 | Outpatient (CLI) | payer MEDICARE, MEDICAID, SELFPAY ==
--- NOTE | 2021-08-12 14:15 | CT_ITS ---
HISTORY: abdominal distention and pain, history of appendectomy, cholecystectomy, hysterectomy and stomach surgery EXAMINATION: CT Abdomen And Pelvis W/ Contrast Injection TECHNIQUE: Helically acquired images were obtained of the abdomen and pelvis following oral and IV contrast. A radiation dose optimization technique was used for this scan. IV Contrast dosage and agent: 100mL [id number]-370 Oral contrast: Yes. COMPARISON: August 12, 2018 FINDINGS: LOWER CHEST: Lung bases are clear. No cardiomegaly or pericardial effusion. Small hiatal hernia. LIVER: 8 mm low-attenuation lesion left lobe too small to characterize but likely small cyst or hemangioma. No concerning focal mass. GALLBLADDER AND BILIARY TREE: Cholecystectomy. No intra- or extrahepatic biliary ductal dilation. PANCREAS: No focal cystic or solid mass. SPLEEN: Normal size without focal cystic or solid mass. ADRENAL GLANDS: No nodules. KIDNEYS AND URETERS: Small right cortical cyst. No hydronephrosis. PERITONEUM: No ascites or free air. BOWEL: No evidence of acute appendicitis. No stomach or bowel distension. Colonic diverticulosis without focal inflammatory bowel wall changes. LYMPH NODES: No enlarged mesenteric or retroperitoneal lymph nodes. VESSELS: Aorta is non-dilated. URINARY BLADDER: Unremarkable. REPRODUCTIVE ORGANS: No pelvic masses. Uterus absent ABDOMINAL WALL: No discrete abdominal or pelvic wall hernia. BONES: No acute or aggressive abnormality. Thoracic stimulator unit right posterior flank with leads into the thoracic canal. CT/Abdomen/Pelvis WITH Contrast IMPRESSION: No acute findings in the abdomen or pelvis. Colonic diverticulosis without CT changes of acute diverticulitis. Individualized dose optimization techniques were used for this CT. at 1603 Reported and signed by: Lui Mckoy MD Electronically Signed: Lui Mckoy MD at 16:01 EST Tel , Service support ,
[2021-08-12 14:41] LABS: CREATININE FINGERSTICK 0.9 mg/dL (0.55-1.02); EGFR FINGERSTICK > 60.0000 mL/min (>60)
== END 2021-08-12 23:59 | disposition short-term general hospital (02) ==
LOC: CT 14:14
PROVIDERS: PCP Internal Medicine; Referring Provider Physician Assistant; Visit Provider Physician Assistant
DX: R14.0 Abdominal distension (gaseous) (principal); R10.9 Unspecified abdominal pain
CPT/HCPCS: 74177; Q9967; A4216

== ENCOUNTER 2021-12-14 13:59 | Emergency (ER) | payer MEDICARE, MEDICAID, SELFPAY ==
[2021-12-14 14:02] VITALS: BP 104/75; PULSE 107; RESP 22; TEMP 36.4; O2SAT 97; BMI 41.7
--- NOTE | 2021-12-14 14:33 | ED.VIS.GI ---
HPI HPI - GI History of Present Illness Chief Complaint: Nausea/Vomiting/Diarrhea Informant: patient Abdominal Pain/Flank Pain Onset: Days (4) Context: Sudden Onset Timing: Continuous Quality: Aching Location: Epigastric, RUQ and LUQ Worsened by: Nothing Relieved by: Nothing Nausea/Vomiting/Emesis GI Symptom: Positive for Nausea and Vomiting Quality: Negative for Blood streaks, Coffee ground and Hematemesis Diarrhea/Melena/Hematochezia GI Symptom: Positive for Diarrhea; Negative for Melena Associated Symptoms Associated Symptoms: Positive for Frequency; Negative for Dysuria and Hematuria Narrative Narrative: Patient presents with abdominal pain that has been constant for the past 4 days. Patient states it began rather suddenly. Patient states the pain has been constant for the last 4 days. Patient describes as aching. Patient states it is mainly over the epigastric area. Patient states it radiates to the right and left upper quadrants. Patient admits to some nausea and vomiting but denies any hematemesis or coffee-ground emesis. Patient admits to diarrhea. Patient states it has been watery. Patient denies any melena. Patient states she did notice some blood but states she has a hemorrhoid and the bleeding is similar to prior episodes of her hemorrhoids. Patient admits to some urinary frequency but denies any dysuria or hematuria. [facility] Medical History Abdominal pain Abdominal pain Asthma Chronic back pain Chronic bronchitis Chronic headaches Confusion Dark stools DDD (degenerative disc disease) Depression Essential (primary) hypertension Frequent falls GERD (gastroesophageal reflux disease) H/O emotional problems Hyperlipidemia IBS (irritable bowel syndrome) Insomnia Iron deficiency anemia Left lower quadrant pain Left-sided chest wall pain Localized swelling of chest wall Neuropathy Obesity Osteoarthritis Osteoarthritis of left knee Overactive bladder Overactive bladder Pneumonia Vision problems Vitamin D deficiency Home Medications acetaminophen 500 mg tablet 1,000 mg PO Q6H PRN PRN #90 tab 02/07/19 [Rx Last Taken 2 Weeks Ago ~09/10/20] aspirin 81 mg tablet,delayed release 81 mg PO DAILY #90 tab 02/07/19 [Rx Last Taken 10/14/20] cholecalciferol (vitamin D3) 50 mcg (2,000 unit) capsule 4,000 unit PO DAILY cap 09/10/19 [History Last Taken 09/24/20] biotin 1 cap PO DAILY 09/24/20 [History Last Taken 09/24/20] multivitamin with minerals 1 tab PO DAILY 09/24/20 [History Last Taken 09/24/20] sumatriptan succinate 25 mg tablet See Rx Instructions PO .COMPLEX #14 tab 12/25/20 [Rx Last Taken Unknown] omeprazole 40 mg capsule,delayed release 40 mg PO DAILY #90 cap 03/11/21 [Rx Last Taken Unknown] losartan 100 mg tablet 100 mg PO DAILY #90 tab 06/04/21 [Rx Last Taken Unknown] amlodipine 2.5 mg tablet 2.5 mg PO DAILY #90 tab 07/08/21 [Rx Last Taken Unknown] sertraline 100 mg tablet 200 mg PO DAILY #180 tab 07/13/21 [Rx Last Taken Unknown] potassium chloride 20 mEq tablet,extended release 20 meq PO DAILY #90 tab 07/14/21 [Rx Last Taken Unknown] glucosamine-chondroitin 250 mg-200 mg tablet 2 tab PO DAILY tab 08/05/21 [History Last Taken Unknown] hydrochlorothiazide 25 mg tablet 25 mg PO DAILY #90 tablet 09/25/21 [Rx Last Taken Unknown] ropinirole 0.5 mg tablet 0.5 mg PO QHS 11/02/21 [History Last Taken Unknown] metoprolol succinate 50 mg tablet,extended release 24 hr 50 mg PO BID #90 tab 11/24/21 [Rx Last Taken Unknown] rosuvastatin 10 mg tablet 10 mg PO QHS #90 tab 11/24/21 [Rx Last Taken Unknown] Allergy/AdvReac Type Severity Reaction Status Date / Time adhesive tape Allergy Severe Area Sore Verified 12/14/21 14:02 cefpodoxime [From Vantin] Allergy Unknown Unknown Verified 12/14/21 14:02 codeine Allergy Unknown Unknown Verified 12/14/21 14:02 metronidazole [From Flagyl] Allergy Unknown Unknown Verified 12/14/21 14:02 sulfamethoxazole Allergy Unknown Unknown Verified 12/14/21 14:02 [From Bactrim] trimethoprim [From Bactrim] Allergy Unknown Unknown Verified 12/14/21 14:02 Sulfa (Sulfonamide Allergy Unknown Verified 12/14/21 14:02 Antibiotics) Family History Sister Anesthesia complication Breast cancer Hypertension Cancer Thyroid, rectal, kidney Thyroid disorder Diabetes Mother Arthritis Pancreatic cancer Depression Diabetes Father Colon cancer Hypertension CVA (cerebral vascular accident) Sister Cancer rectal/kidney/medullary Thyroid cancer Surgical History History of back surgery History of History of cholecystectomy History of gastric surgery History of hernia repair History of hysterectomy History of left heart catheterization (10/14/20) History of left knee replacement History of right knee joint replacement 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 History of total right knee replacement Hx of breast reduction, elective Social History Smoking Status: Former smoker alcohol intake: never substance use type: does not use what type of physical activity do you participate in: none ROS ROS ED Constitutional Constitutional ED: Reports fever(s) and subjective; Denies chills Eyes Eyes: Denies blurry vision or change in vision ENT ENT ED: Reports sore throat; Denies rhinorrhea Cardiovascular Cardiovascular: Reports chest pain; Denies palpitations Respiratory/Chest Respiratory/Chest: Denies cough or dyspnea Gastrointestinal Gastrointestinal: Reports abdominal pain, diarrhea, nausea and vomiting; Denies melena Genitourinary Genitourinary ED: Reports urinary frequency; Denies dysuria or hematuria Musculoskeletal Musculoskeletal: Reports neck pain; Denies back pain Integumentary Denies abscess or rash Neurologic Neurologic: Reports headache(s); Denies weakness Allergic/Immunologic Allergic/Immunologic ED: Denies mouth swelling or urticaria EXAM Physical Exam Const Vital Signs: 12/14/21 14:02 12/14/21 16:19 Temperature 97.5 F L Temperature Source Temporal Pulse Rate 107 H 97 Respiratory Rate 22 H 22 H Blood Pressure 104/75 112/94 H Blood Pressure Mean 84 100 Pulse Ox 97 96 Oxygen Delivery Method Room Air Room Air Positive well nourished and well developed General Appearance ED: well developed HEENT Reports moist mucous membranes Neck supple and no JVD Resp normal respiratory effort and clear to auscultation bilaterally Cardio regular rate, regular rhythm and no murmurs GI normal to inspection, nondistended, normoactive bowel sounds and non-distended Auscultation: normoactive bowel sounds Palpation: soft and tender epigastric, LUQ and RUQ; Negative for guarding or rebound tenderness present Extremity normal to inspection General Extremety ED: Negative for edema or tenderness General Extremity: Negative for edema Neuro oriented x3, CN's II-XII intact bilaterally and no sensory deficits noted Sensorium / Orientation: alert Motor Exam: strength 5/5 throughout Psych mental status grossly normal Skin no rashes or lesions noted MDM MDM MDM Narrative Medical decision making narrative: Patient was given IV fluids and Zofran. CBC was within normal limits. Comprehensive metabolic profile showed potassium of 2.5. CO2 was slightly low at 18. Anion gap was normal at 11. BUN was 32 and creatinine was 1.2. Lipase was normal. Urinalysis does not show any evidence of urinary tract infection. CT scan of the abdomen and pelvis was obtained. There is no acute process noted. This was interpreted by the radiologist and reviewed by myself. Patient was given oral and IV potassium here. Patient was instructed to drink plenty of fluids. Patient was instructed to follow-up with her primary care physician in 3 to 5 days for reevaluation. Patient understood and was agreeable with the plan. All questions were answered. Lab Data Attestation: I reviewed the patient's lab results. Labs: Laboratory Results - last 24 hr 12/14/21 12/14/21 12/14/21 15:03 15:03 15:45 WBC 7.1 RBC 5.48 H Hgb 14.4 Hct 46.2 MCV 84.3 MCH 26.3 L MCHC 31.2 L RDW Std Deviation 50.9 H RDW Coeff of Karon 16.5 H Plt Count 257 MPV 9.7 Immature Gran % (Auto) 0.700 Neut % (Auto) 70.1 H Lymph % (Auto) 12.8 L Hood % (Auto) 14.7 H Eos % (Auto) 1.3 Baso % (Auto) 0.4 Absolute Neuts (auto) 5.0 Absolute Lymphs (auto) 0.91 Nucleated RBC % 0 Sodium 139 Potassium 2.5 L* Chloride 110 H Carbon Dioxide 18.0 L Anion Gap 11 BUN 32 H Creatinine 1.20 H Estim Creat Clear Calc 34.44 Est GFR (MDRD) Af Amer 56 L Est GFR (MDRD) Non-Af 46 L BUN/Creatinine Ratio 26.7 H Glucose 125 H Calcium 8.6 Total Bilirubin 0.20 AST 106 H ALT 185 H Alkaline Phosphatase 68 Total Protein 6.9 Albumin 3.3 Globulin 3.6 Albumin/Globulin Ratio 0.9 Lipase 85 Urine Color Yellow Urine Clarity Clear Urine pH 6.0 Ur Specific [place] 1.015 Urine Protein 30 H Urine Glucose (UA) Normal Urine Ketones Negative Urine Occult Blood 10 H Urine Nitrite Negative Urine Bilirubin Negative Urine Urobilinogen Normal Ur Leukocyte Esterase 25 H Urine RBC 0-5 SEEN Urine WBC 5-10 SEEN Ur Squamous Epith Cells 5-10 SEEN Urine Bacteria RARE Urine Mucus 0 SEEN Radiography Diagnostic Testing: Clinical Impression(s) from Imaging Studies Abdomen/Pelvis CT 12/14/21 16:22 IMPRESSION: No acute inflammatory process or bowel obstruction. Electronically Signed: Miki Mccray MD ([place]) at 16:48 EDT Reading Location ID and State: [place] , Service support , Discharge Plan Triage Chief Complaint: Nausea/Vomiting/Diarrhea ED Provider: Sterling Guzman Dx/Rx/DC Orders Clinical Impression: Nausea vomiting and diarrhea, Hypokalemia Instructions: ED Hypokalemia, ED Gastroenteritis, Viral (Adult) Prescriptions: No Action cholecalciferol (vitamin D3) 50 mcg (2,000 unit) capsule 4,000 unit PO DAILY RF: 0 amlodipine 2.5 mg tablet 2.5 mg PO DAILY Qty: 90 RF: 1 glucosamine-chondroitin [Osteo Bi-Flex] 250-200 mg tablet 2 tab PO DAILY RF: 0 ropinirole 0.5 mg tablet 0.5 mg PO QHS RF: 0 multivitamin with minerals 1 EACH tablet 1 tab PO DAILY RF: 0 biotin 2,500 MCG capsule 1 cap PO DAILY RF: 0 acetaminophen 500 mg tablet 1,000 mg PO Q6H PRN PRN (Reason: Mild Pain (1-3/10)) Qty: 90 RF: 0 aspirin 81 mg tablet,delayed release (DR/EC) 81 mg PO DAILY Qty: 90 RF: 1 sumatriptan succinate 25 mg tablet See Rx Instructions PO .COMPLEX Qty: 14 RF: 1 omeprazole 40 mg capsule,delayed release(DR/EC) 40 mg PO DAILY Qty: 90 RF: 3 losartan 100 mg tablet 100 mg PO DAILY Qty: 90 RF: 3 sertraline 100 mg tablet 200 mg PO DAILY Qty: 180 RF: 3 potassium chloride 20 mEq tablet extended release 20 meq PO DAILY Qty: 90 RF: 3 hydrochlorothiazide 25 mg tablet 25 mg PO DAILY Qty: 90 RF: 3 metoprolol succinate 50 mg tablet extended release 24 hr 50 mg PO BID Qty: 90 RF: 3 rosuvastatin 10 mg tablet 10 mg PO QHS Qty: 90 RF: 3 Primary Care Provider: Katiana Rayo Referrals: Katiana Rayo MD [Primary Care Provider] - 3-5 Days Disposition Disposition: Home, Self Care
[2021-12-14] MEDS: Ondansetron 4 MG/2 ML Vial IV (15:03)
[2021-12-14] MEDS: 0.9% Normal Saline 1,000 ML 1000 ML IV (15:03)
[2021-12-14 15:10] LABS: Absolute Lymphocyte Count 0.91 X10^3/uL (0.83-4.51); Basophil# 0.03 X10^3/uL; Basophil% 0.4 % (0-1); Eosinophil# 0.09 X10^3/uL; Eosinophils% 1.3 % (0-5); Hematocrit 46.2 % (37-47); Hemoglobin 14.4 g/dL (12.0-15.0); Lymphocyte # 0.91 X10^3/ul (0.83-4.51); Lymphocyte % 12.8 % (19-41); Mean Corp Hgb Conc 31.2 g/dL (32-36); Mean Corpuscular Hgb 26.3 pg (27.0-32.0); Mean Corpuscular Volume 84.3 fL (81-99); Mean Platelet Vol. 9.7 fl (6.2-12.0); Monocyte# 1.04 X10^3/uL; Monocyte% 14.7 % (0-10); NRBC Flagged by Analyzer 0 % (0-5); Neutrophil # 4.97 X10^3/uL (2.7-7.7); Neutrophil % 70.1 % (47-70); Platelet Count 257 K/mm3 (150-450); RBC Distribution Width CV 16.5 % (11.6-14.6); RBC Distribution Width SD 50.9 fl (35.1-43.9); Red Blood Count 5.48 M/mm3 (4.2-5.4); White Blood Count 7.1 K/mm3 (4.4-11.0)
[2021-12-14 15:39] LABS: ALB/GLOB Ratio 0.9 RATIO (0.9-2.4); AST(SGOT) 106 U/L (15-37); Alanine Aminotransfer ALT/SGPT 185 U/L (13-56); Albumin, Serum 3.3 g/dL (3.2-5.0); Alkaline Phosphatase 68 U/L (45-117); Anion Gap 11 (5-15); BUN 32 mg/dL (7-18); BUN/Creat Ratio 26.7 RATIO (10-20); Calcium,Total 8.6 mg/dL (8.5-10.1); Chloride 110 mmol/L (98-107); EST Glomerular Filtration Rate 46 mL/min (>60); Est Glom Filt Rate - Afr Amer 56 mL/min (>60); Estimated Creatinine Clearance 34.44 ml/min; Globulin 3.6 g/dL (2.2-4.2); Glucose 125 mg/dL (74-106); Lipase 85 U/L (73-393); Potassium 2.5 mmol/L (3.5-5.1); Protein, Total 6.9 g/dL (6.4-8.2); Sodium Level 139 mmol/L (136-145)
[2021-12-14 15:51] LABS: Mucous, Urine 0 SEEN /hpf (<or=2+)
[2021-12-14 15:54] LABS: Color, Urine Yellow (Yellow); Glucose, Dipstick Normal (Normal); Ketone-Dipstick Negative (Negative); Leukocyte Esterase-Dipstick 25 /ul (Negative); Nitrite-Dipstick Negative (Negative); Occult Blood-Urine 10 /ul (Negative); Protein-Dipstick 30 mg/dl (Negative); Specific Gravity, Urine 1.015 (1.002-1.030); Urine Bilirubin Dipstick Negative (Negative); Urine Clarity Clear (Clear); Urine Urobilinogen Normal (Normal)
[2021-12-14] MEDS: Potassium Chloride Oral Tablet 20 MEQ 40 MEQ PO (16:17)
[2021-12-14] MEDS: Potassium Chloride 10mEq/100mL 10 MEQ/100 ML IV.SOLN. 100 MEQ IV BOLUS ×2 (16:18→17:52)
[2021-12-14 16:19] VITALS: BP 112/94; PULSE 97; RESP 22; O2SAT 96
--- NOTE | 2021-12-14 16:22 | CT_ITS ---
STUDY: CT ABDOMEN AND PELVIS WITH CONTRAST REASON FOR EXAM: Female, 76 years old. Abdominal pain RADIATION DOSAGE (If Supplied By Facility): CTDIvol = ( 16.92 ) mGy, DLP = ( 1254.87 ) mGycm TECHNIQUE: Transaxial images were obtained from the dome of the diaphragm to the symphysis pubis with oral contrast. 100 mm Isovue 300 was administered. Sagittal and coronal images were reconstructed. Individualized dose optimization techniques were used for this CT. COMPARISON: 08/12/2021 FINDINGS: The visualized lung bases are unremarkable. The visualized portions of the heart are within normal limits. Stable simple cyst of the left hepatic lobe. No required imaging follow-up needed given high likelihood of benign nature. Gallbladder appears be surgically absent. Normal spleen. Normal pancreas. Normal bilateral adrenal glands. Stable simple cyst of the inferior right kidney. No required imaging follow-up needed given high likelihood of benign nature. No hydronephrosis. There is a small hiatal hernia. Normal small intestine. There are multiple colonic diverticula consistent with diverticulosis. There is non-visualization of the appendix. Normal abdominal aorta. Normal inferior vena cava. Normal retroperitoneum. Normal urinary bladder. Neurostimulator device of the right gluteal subcutaneous fat with leads extending to the thoracic spine level. There are diffuse degenerative changes of the visualized lumbar spine. CT/Abdomen/Pelvis WITH Contrast IMPRESSION: No acute inflammatory process or bowel obstruction. Electronically Signed: Miki Mccray MD (Bro[place]) at 16:48 EDT ,
[2021-12-14 16:24] LABS: Bacteria RARE /hpf (None Seen); Red Blood Cells-Urine 0-5 SEEN /hpf (0-5); Squamous Epithelial Cells - UA 5-10 SEEN /hpf (5-10); White Blood Cells 5-10 SEEN /hpf (0-5)
[2021-12-14 18:52] VITALS: BP 115/74; PULSE 100; RESP 20; O2SAT 98
== END 2021-12-14 18:54 | disposition home or self-care (01) ==
PROVIDERS: Emergency Provider Emergency Medicine; PCP Internal Medicine; Visit Provider Emergency Medicine
DX: R11.2 Nausea with vomiting, unspecified (principal); R19.7 Diarrhea, unspecified; E87.6 Hypokalemia; R10.13 Epigastric pain; J42 Unspecified chronic bronchitis; R35.0 Frequency of micturition; E78.5 Hyperlipidemia, unspecified; I10 Essential (primary) hypertension; Z79.82 Long term (current) use of aspirin; Z79.899 Other long term (current) drug therapy; Z87.891 Personal history of nicotine dependence
CPT/HCPCS: 74177; 80053; 81001; 83690; 85025; 96361; 96365; 96366; 96375; 99284; J7030; Q9967; A4216; J2405

== ENCOUNTER 2022-01-05 09:12 | Emergency (ER) | payer MEDICARE, MEDICAID, SELFPAY ==
[2022-01-05 09:15] VITALS: BP 155/77; PULSE 69; RESP 14; TEMP 36.1; O2SAT 97; BMI 43.4
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
[2022-01-05] MEDS: Diphth,Pertuss(Acell),Tet Vac 0.5 ML Vial IM (10:00)
== END 2022-01-05 12:27 | disposition left against medical advice (07) ==
LOC: ED 09:55
PROVIDERS: Emergency Provider Emergency Medicine; PCP Internal Medicine; Visit Provider Emergency Medicine
DX: S01.21XA Laceration without foreign body of nose, initial encounter (principal); S80.01XA Contusion of right knee, initial encounter; J42 Unspecified chronic bronchitis; R29.6 Repeated falls; Z23 Encounter for immunization; W18.09XA Striking against other object with subsequent fall, initial encounter; Y93.01 Activity, walking, marching and hiking; E78.5 Hyperlipidemia, unspecified; I10 Essential (primary) hypertension; M54.9 Dorsalgia, unspecified; G89.29 Other chronic pain; Z79.82 Long term (current) use of aspirin; Z79.899 Other long term (current) drug therapy; Z87.891 Personal history of nicotine dependence; Z96.653 Presence of artificial knee joint, bilateral
CPT/HCPCS: 70450; 70486; 73562; 90715; 99284

== ENCOUNTER 2022-07-13 07:02 | Emergency (ER) | payer MEDICARE, MEDICAID, SELFPAY ==
[2022-07-13 07:02] VITALS: BP 153/89; PULSE 78; RESP 18; TEMP 35.9; O2SAT 97; BMI 43.2
--- NOTE | 2022-07-13 07:13 | CT_ITS ---
EXAM: CT HEAD WITHOUT INTRAVENOUS CONTRAST CLINICAL INDICATION: trauma TECHNIQUE: Multiple axial images were obtained of the head without intravenous contrast. This CT exam was performed using one or more of the following dose reduction techniques: automated exposure control, adjustment of the mA and/or kV according to patient size, and/or use of iterative reconstruction technique. This report was created using [employer] report generation technology. COMPARISON: CT Head dated 01/05/2022 FINDINGS: BRAIN AND EXTRA-AXIAL SPACES: Areas of diminished white matter density noted within both cerebral hemispheres suggestive of chronic microvascular change. Prominence of the cortical sulci and ventricles related to volume loss change. No intra- or extra-axial hemorrhage. No evidence of acute infarct. No intracranial mass or mass effect. There is preservation of the fall/white matter interface. Posterior fossa structures are unremarkable. Basal cisterns are patent. BONES/JOINTS: Normal. No discrete lytic or blastic abnormalities. SOFT TISSUES: Scalp swelling noted along the left temporal fossa. SINUSES: No acute sinusitis. MASTOID AIR CELLS: Normal. Clear. ORBITS: Visualized globes, extraocular muscles, optic nerves and retrobulbar fat appear unremarkable. CT/Brain/Head without Contrast IMPRESSION: 1. No acute intracranial abnormality. 2. Senescent changes. 3. No interval change. Electronically Signed: Ross Kennedy MD at 7:57 EST ,
--- NOTE | 2022-07-13 07:13 | CT_ITS ---
EXAM: CT CERVICAL SPINE WITHOUT INTRAVENOUS CONTRAST CLINICAL INDICATION: Trauma TECHNIQUE: Helically acquired images were obtained of the cervical spine without intravenous contrast. 2D reformatted images were reviewed. This CT exam was performed using one or more of the following dose reduction techniques: automated exposure control, adjustment of the mA and/or kV according to patient size, and/or use of iterative reconstruction technique. This report was created using [employer] report generation technology. COMPARISON: CT Cervical Spine dated 04/01/2019 FINDINGS: VERTEBRAE: Loss of the normal cervical lordosis which may be due to muscle spasm or head positioning. No acute fracture or subluxation. DISCS/SPINAL CANAL/NEURAL FORAMINA: Multilevel disc space narrowing and facet arthropathy unchanged from prior exam. SOFT TISSUES: Normal. No prevertebral soft tissue swelling. LYMPH NODES: Normal. No cervical adenopathy. LUNG APICES: Unremarkable as visualized. Clear. CT/Spine Cervical without Contras IMPRESSION: 1. No acute fracture or subluxation. 2. Stable moderate diffuse spondylosis. Electronically Signed: Ross Kennedy MD at 7:59 EST ,
--- NOTE | 2022-07-13 07:15 | EDS_ITS ---
HPI HPI - Fall History of Present Illness Chief Complaint: Fall Narrative Narrative: Patient fell out of bed this morning. No syncopal episode she did hit her head, she has a 1 cm laceration right parietal region. No neck pain. She is denying back pain chest pain abdominal pain, she is able to ambulate and has no extremity pain. Her only injuries to the head. She is on aspirin but no other anticoagulants. She has no neurological symptoms she has a mild headache. PFSH PFS Medical History Abdominal pain Abdominal pain Asthma Chronic back pain Chronic bronchitis Chronic headaches Confusion Dark stools DDD (degenerative disc disease) Depression Essential (primary) hypertension Frequent falls GERD (gastroesophageal reflux disease) H/O emotional problems Hyperlipidemia IBS (irritable bowel syndrome) Insomnia Iron deficiency anemia Left lower quadrant pain Left-sided chest wall pain Localized swelling of chest wall Neuropathy Obesity Osteoarthritis Osteoarthritis of left knee Overactive bladder Overactive bladder Pneumonia Vision problems Vitamin D deficiency Home Medications acetaminophen 500 mg tablet 1,000 mg PO Q6H PRN PRN Mild Pain (-10/01) #90 tabs 02/07/19 [Rx Last Taken 2 Weeks Ago ~09/10/20] aspirin 81 mg tablet,delayed release 81 mg PO DAILY HEART HEALTH #90 tabs 02/07/19 [Rx Last Taken 10/14/20] cholecalciferol (vitamin D3) 50 mcg (2,000 unit) capsule 4,000 unit PO DAILY SUPPLEMENT 09/10/19 [History Last Taken 09/24/20] biotin 2,500 mcg capsule 1 cap PO DAILY supplement 09/24/20 [History Last Taken 09/24/20] multivitamin with minerals 1 tab PO DAILY supplement 09/24/20 [History Last Taken 09/24/20] hydrochlorothiazide 25 mg tablet 25 mg PO DAILY #90 tabs 09/25/21 [Rx Last Taken Unknown] ropinirole 0.5 mg tablet 0.5 mg PO QHS 11/02/21 [History Last Taken Unknown] rosuvastatin 10 mg tablet 10 mg PO QHS CHOLESTEROL #90 tabs 11/24/21 [Rx Last Taken Unknown] amlodipine 5 mg tablet 5 mg PO DAILY #90 tabs 03/04/22 [Rx Last Taken Unknown] metoprolol succinate 50 mg tablet,extended release 24 hr 50 mg PO BID HTN #90 tabs 05/10/22 [Rx Last Taken Unknown] sumatriptan succinate 25 mg tablet See Rx Instructions PO .COMPLEX #14 tabs 06/14/22 [Rx Last Taken Unknown] sumatriptan succinate 6 mg/0.5 mL subcutaneous pen injector (Imitrex STATdose P en) 6 mg (0.5 mL) subcut Q1-4H PRN migraine headache #1 mL 06/14/22 [Rx Last Taken Unknown] potassium chloride 20 mEq tablet,extended release 20 meq PO DAILY #90 tabs 06/28/22 [Rx Last Taken Unknown] sertraline 100 mg tablet 200 mg PO DAILY #180 tabs 07/06/22 [Rx Last Taken Unknown] Allergy/AdvReac Type Severity Reaction Status Date / Time adhesive tape Allergy Severe Area Sore Verified 07/13/22 07:09 cefpodoxime [From Vantin] Allergy Unknown Unknown Verified 02/03/22 14:00 codeine Allergy Unknown Unknown Verified 07/13/22 07:09 metronidazole [From Flagyl] Allergy Unknown Unknown Verified 07/13/22 07:09 sulfamethoxazole Allergy Unknown Unknown Verified 07/13/22 07:09 [From Bactrim] trimethoprim [From Bactrim] Allergy Unknown Unknown Verified 07/13/22 07:09 Sulfa (Sulfonamide Allergy Unknown Verified 07/13/22 07:09 Antibiotics) Family History Sister Anesthesia complication Breast cancer Hypertension Cancer Thyroid, rectal, kidney Thyroid disorder Diabetes Mother Arthritis Pancreatic cancer Depression Diabetes Father Colon cancer Hypertension CVA (cerebral vascular accident) Sister Cancer rectal/kidney/medullary Thyroid cancer Surgical History History of back surgery History of History of cholecystectomy History of gastric surgery History of hernia repair History of hysterectomy History of left heart catheterization (10/14/20) History of left knee replacement History of right knee joint replacement 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 History of total right knee replacement Hx of breast reduction, elective Social History Smoking Status: Former smoker alcohol intake: never substance use type: does not use what type of physical activity do you participate in: none ROS ROS ED ROS Narrative Social: Noncontributory Medications: Reviewed Past medical history: Reviewed, includes hypertension, hyperlipidemia, depression, iron deficiency anemia, osteoarthritis, frequent falls Review of systems General: Head injury but no loss of consciousness HEENT: No facial injury Neck: No neck pain Cardiovascular: Patient denies any chest pain or palpitations Chest wall: No chest wall contusions Respiratory: There is no shortness of breath GI: There is no nausea vomiting diarrhea or abdominal pain, no abdominal wall contusions Skin: No lacerations or abrasions Neurological: Patient has no memory loss, confusion, or any focal weakness Psychiatric: No recent behavioral changes Back: No back pain, no problems with ambulation Musculoskeletal: No extremity injury All other systems are reviewed and normal EXAM Physical Exam Narrative Exam Narrative: Physical exam Vitals reviewed General: Does not appear in significant distress, no obvious injuries HEENT: No facial injury Head: Very small right parietal 1 cm laceration no active bleeding it is closed quite well. Eyes: Extraocular movements intact Neck: No C-spine tenderness with full range of motion Heart: Regular rate normal pulses Chest wall: No chest wall pain Lungs clear lungs bilaterally with normal inspiration and expiration without tachypnea GI: Abdomen is soft and nontender there is no mass no guarding no abdominal wall contusion : Stable pelvis Musculoskeletal: Moves all extremities without any signs of trauma Skin: No abrasions or laceration Neurological: Patient is alert and oriented with no focal deficits Const Vital Signs: 07/13/22 07:02 07/13/22 07:12 Temperature 96.7 F L Temperature Source Temporal Pulse Rate 78 Respiratory Rate 18 Respiratory Effort Normal Non-Labored Respiratory Depth Normal Respiratory Pattern Normal Blood Pressure 153/89 H Blood Pressure Mean 110 Pulse Ox 97 Oxygen Delivery Method Room Air Room Air MDM MDM MDM Narrative Medical decision making narrative: Patient's work-up is unremarkable. She appears well, she has a small laceration of her scalp but it is closed its not actively bleeding therefore I do not believe I need to repair it. Tetanus is updated I will discharge her in stable condition. Radiography Diagnostic Testing: Clinical Impression(s) from Imaging Studies Brain CT 07/13/22 07:13 IMPRESSION: 1. No acute intracranial abnormality. 2. Senescent changes. 3. No interval change. Electronically Signed: Ross Kennedy MD at 7:57 EST , Cervical Spine CT 07/13/22 07:13 IMPRESSION: 1. No acute fracture or subluxation. 2. Stable moderate diffuse spondylosis. Electronically Signed: Ross Kennedy MD at 7:59 EST , Discharge Plan Triage Chief Complaint: Fall ED Provider: José Mendoza Dx/Rx/DC Orders Clinical Impression: Fall, Scalp laceration, Concussion without loss of consciousness Instructions: ED Head Injury (Adult) Prescriptions: No Action cholecalciferol (vitamin D3) 50 mcg (2,000 unit) capsule 4,000 unit PO DAILY ropinirole 0.5 mg tablet 0.5 mg PO QHS Rx Instructions: administer 1-3 hours before bedtime multivitamin with minerals 1 EACH tablet 1 tab PO DAILY biotin 2,500 MCG capsule 1 cap PO DAILY acetaminophen 500 mg tablet 1,000 mg PO Q6H PRN PRN (Reason: Mild Pain (-10/01)) Qty: 90 0RF aspirin 81 mg tablet,delayed release (DR/EC) 81 mg PO DAILY Qty: 90 1RF hydrochlorothiazide 25 mg tablet 25 mg PO DAILY Qty: 90 3RF rosuvastatin 10 mg tablet 10 mg PO QHS Qty: 90 3RF amlodipine 5 mg tablet 5 mg PO DAILY Qty: 90 3RF metoprolol succinate 50 mg tablet extended release 24 hr 50 mg PO BID Qty: 90 3RF sumatriptan succinate 25 mg tablet See Rx Instructions PO .COMPLEX Qty: 14 1RF Rx Instructions: take 1 tab at onset of headache; if no relief may repeat 1 tab after at least 2 hrs; max = 4 tabs/24 hr PO sumatriptan succinate [Imitrex STATdose Pen] 6 mg/0.5 mL pen injector 6 mg subcut Q1-4H PRN (Reason: migraine headache) Qty: 1 1RF Rx Instructions: do not exceed 2 doses in a 24 hour period potassium chloride 20 mEq tablet extended release 20 meq PO DAILY Qty: 90 3RF sertraline 100 mg tablet 200 mg PO DAILY Qty: 180 3RF Rx Instructions: 200 mg PO daily; Primary Care Provider: Katiana Rayo Referrals: Katiana Rayo MD [Primary Care Provider] - 3-5 Days Disposition Disposition: Home, Self Care
[2022-07-13] MEDS: Diphth,Pertuss(Acell),Tet Vac 0.5 ML Vial IM (07:48)
[2022-07-13 09:02] VITALS: BP 135/76; PULSE 70; RESP 16; TEMP 36.7; O2SAT 97
[2022-07-13 09:11] VITALS: BP 159/90; PULSE 82; RESP 18; TEMP 36.8; O2SAT 98
== END 2022-07-13 09:24 | disposition home or self-care (01) ==
PROVIDERS: Emergency Provider Emergency Medicine; PCP Internal Medicine; Visit Provider Emergency Medicine
DX: S01.01XA Laceration without foreign body of scalp, initial encounter (principal); S06.0X0A Concussion without loss of consciousness, initial encounter; E78.5 Hyperlipidemia, unspecified; I10 Essential (primary) hypertension; Z23 Encounter for immunization; Z79.899 Other long term (current) drug therapy; Z79.82 Long term (current) use of aspirin; W06.XXXA Fall from bed, initial encounter; Z87.891 Personal history of nicotine dependence
CPT/HCPCS: 70450; 72125; 90471; 90715; 99284

== ENCOUNTER → 2022-07-15 | Outpatient (CLI) | payer MEDICARE, MEDICAID, SELFPAY ==
[2022-07-15 17:08] LABS: Absolute Lymphocyte Count 2.12 X10^3/uL (0.83-4.51); Absolute Neutrophil Count 9.2 X10^3/uL (2.0-7.7); Basophil# 0.04 X10^3/uL; Basophil% 0.3 % (0-1); Eosinophils% 1.6 % (0-5); Hematocrit 40.8 % (37-47); Lymphocyte # 2.12 X10^3/ul (0.83-4.51); Lymphocyte % 16.7 % (19-41); Mean Corp Hgb Conc 29.4 g/dL (32-36); Mean Corpuscular Hgb 24.5 pg (27.0-32.0); Mean Corpuscular Volume 83.4 fL (81-99); Mean Platelet Vol. 9.7 fl (6.2-12.0); Monocyte# 1.05 X10^3/uL; Monocyte% 8.3 % (0-10); NRBC Flagged by Analyzer 0 % (0-5); Neutrophil # 9.18 X10^3/uL (2.7-7.7); Neutrophil % 72.2 % (47-70); Platelet Count 325 K/mm3 (150-450); RBC Distribution Width CV 17.1 % (11.6-14.6); RBC Distribution Width SD 51.7 fl (35.1-43.9); Red Blood Count 4.89 M/mm3 (4.2-5.4); White Blood Count 12.7 K/mm3 (4.4-11.0)
[2022-07-15 18:31] LABS: ALB/GLOB Ratio 0.9 RATIO (0.9-2.4); AST(SGOT) 46 U/L (15-37); Alanine Aminotransfer ALT/SGPT 56 U/L (13-56); Albumin, Serum 3.7 g/dL (3.2-5.0); Alkaline Phosphatase 73 U/L (45-117); Anion Gap 4 (5-15); BUN 19 mg/dL (7-18); BUN/Creat Ratio 25.8 RATIO (10-20); Calcium,Total 9.4 mg/dL (8.5-10.1); Chloride 102 mmol/L (98-107); Creatinine, Serum 0.74 mg/dL (0.55-1.02); EST Glomerular Filtration Rate 81 mL/min (>60); Est Glom Filt Rate - Afr Amer 98 mL/min (>60); Globulin 3.9 g/dL (2.2-4.2); Glucose 83 mg/dL (74-106); Magnesium 2.3 mg/dL (1.6-2.6); Potassium 3.8 mmol/L (3.5-5.1); Protein, Total 7.6 g/dL (6.4-8.2); Sodium Level 137 mmol/L (136-145); Thyroid Stim Hormone (TSH) 3.39 uIU/mL (0.358-3.74)
== END | disposition home or self-care (01) ==
LOC: BIMLAB 15:40
PROVIDERS: PCP Internal Medicine; Referring Provider Internal Medicine; Visit Provider Internal Medicine
DX: K58.9 Irritable bowel syndrome, unspecified (principal); E78.5 Hyperlipidemia, unspecified; I10 Essential (primary) hypertension; F32.9 Major depressive disorder, single episode, unspecified; G62.9 Polyneuropathy, unspecified; M19.90 Unspecified osteoarthritis, unspecified site; N32.81 Overactive bladder; R29.6 Repeated falls; R42 Dizziness and giddiness; E55.9 Vitamin D deficiency, unspecified
CPT/HCPCS: 36415; 80053; 82306; 83735; 84443; 85025

== ENCOUNTER → 2023-04-13 | Outpatient (CLI) | payer MEDICARE, MEDICAID, SELFPAY ==
--- NOTE | 2023-04-13 12:16 | VDLE_ITS ---
Reason For Study: Left leg swelling RIGHT LEFT CFV is compressible, spontaneous, phasic, GSV is normal. competent and demonstrates normal CFV is compressible, spontaneous, phasic, augmentation. competent, and demonstrates normal Procedure augmentation. This is a venous duplex using B-mode, color FV is compressible, spontaneous, phasic, flow and spectral Doppler. competent and demonstrates normal Exam performed in department. augmentation. A preliminary report was called and/or faxed POP V is compressible, spontaneous, phasic, to Dr. Rayo. competent and demonstrates normal augmentation. T/P Trunk is compressible. PTV is compressible. LT PerV is compressible. VL/Venous Duplex US, Unilateral Interpretation Summary Deep veins of the left lower extremity are patent and compressible segmentally. There is no evidence of left lower extremity deep vein thrombosis. The left great saphenous vein rony ears patent and compressible segmentally. Ordering Physician: Katiana Rayo Referring Physician: Katiana Rayo Performed By: Mimi Chang RVT
== END | disposition home or self-care (01) ==
LOC: CVS 12:13
PROVIDERS: PCP Internal Medicine; Referring Provider Internal Medicine; Visit Provider Internal Medicine
DX: M79.89 Other specified soft tissue disorders (principal)
CPT/HCPCS: 93971

== ENCOUNTER 2023-04-27 03:28 | Emergency (ER) | payer MEDICARE, MEDICAID, SELFPAY ==
--- NOTE | 2023-04-27 04:14 | CT_ITS ---
EXAM: CT HEAD WITHOUT INTRAVENOUS CONTRAST CLINICAL INDICATION: FALL TECHNIQUE: Multiple axial images were obtained of the head without intravenous contrast. This CT exam was performed using one or more of the following dose reduction techniques: automated exposure control, adjustment of the mA and/or kV according to patient size, and/or use of iterative reconstruction technique. COMPARISON: Head CT 07/13/2022 FINDINGS: BRAIN AND EXTRA-AXIAL SPACES: Diffuse cerebral volume loss. Periventricular small vessel ischemic changes. No intra- or extra-axial hemorrhage. No intracranial mass or mass effect. Posterior fossa structures are unremarkable. No hydrocephalus. Basal cisterns are patent. BONES/JOINTS: Unremarkable. No discrete lytic or blastic abnormalities. SOFT TISSUES: Left frontal/temporal scalp swelling. VASCULATURE: Vascular calcifications. SINUSES: Unremarkable as visualized. Clear. MASTOID AIR CELLS: Unremarkable. Clear. ORBITS: Visualized globes, extraocular muscles, optic nerves and retrobulbar fat appear unremarkable. CT/Brain/Head without Contrast IMPRESSION: 1. Left frontal/temporal scalp swelling. 2. No acute intracranial abnormalities. 3. Age-related changes. Electronically Signed: Tay Caruso MD at 4:33 EDT ,
--- NOTE | 2023-04-27 04:15 | RAD_ITS ---
EXAM: XR PELVIS, 1 OR 2 VIEWS CLINICAL INDICATION: fall, pain TECHNIQUE: Frontal view of the pelvis. COMPARISON: No relevant prior studies available. FINDINGS: BONES/JOINTS: Unremarkable. No displaced fracture. No destructive or sclerotic lesions. Note that overlapping bowel shadows may however obscure fine detail. Sacroiliac joints are unremarkable. No widening of the pubic symphysis. The articular structures are unremarkable. SOFT TISSUES: Unremarkable. No soft tissue swelling or gas. TUBES, LINES AND DEVICES: Implanted device overlying the right iliac crest. RAD/Pelvis 1 or 2 Views IMPRESSION: No acute findings in the pelvis. Electronically Signed: Tay Caruso MD at 4:53 EDT ,
--- NOTE | 2023-04-27 05:57 | EDS_ITS ---
HPI History of Present Illness Detail of Chief Complaint: Head injury Informant: patient and EMS Narrative Narrative: Patient is a 77-year-old female with past medical history of asthma hypertension and hyperlipidemia. She states she was sleeping this evening when she rolled over in bed. She states when she did this she actually fell out of bed and landed on her left side striking her head on a dresser. She states she sustained a laceration secondary to this. She denies any bleeding disorder or blood thinner use. She states however secondary to head trauma there was concern for underlying injury or need for closure of her lacerations and therefore she was brought to the hospital for evaluation. [facility] Medical History Abdominal pain Abdominal pain Asthma Chronic back pain Chronic bronchitis Chronic headaches Confusion Dark stools DDD (degenerative disc disease) Depression Essential (primary) hypertension Frequent falls GERD (gastroesophageal reflux disease) H/O emotional problems Hyperlipidemia IBS (irritable bowel syndrome) Insomnia Iron deficiency anemia Left lower quadrant pain Left-sided chest wall pain Localized swelling of chest wall Neuropathy Obesity Osteoarthritis Osteoarthritis of left knee Overactive bladder Overactive bladder Pneumonia Vision problems Vitamin D deficiency Home Medications acetaminophen 500 mg tablet 1,000 mg (2 x 500 mg) PO Q6H PRN PRN Mild Pain (1- 10/01) #90 tabs 02/07/19 [Rx Last Taken 2 Weeks Ago ~09/10/20] aspirin 81 mg tablet,delayed release 81 mg PO DAILY HEART HEALTH #90 tabs 02/07/19 [Rx Last Taken 10/14/20] cholecalciferol (vitamin D3) 50 mcg (2,000 unit) capsule 4,000 unit PO DAILY SUPPLEMENT 09/10/19 [History Last Taken 09/24/20] biotin 2,500 mcg capsule 1 cap PO DAILY supplement 09/24/20 [History Last Taken 09/24/20] multivitamin with minerals 1 tab PO DAILY supplement 09/24/20 [History Last Taken 09/24/20] sumatriptan succinate 25 mg tablet See Rx Instructions PO .COMPLEX #14 tabs 06/14/22 [Rx Last Taken Unknown] sumatriptan succinate 6 mg/0.5 mL subcutaneous pen injector (Imitrex STATdose Pen) 6 mg (0.5 mL) subcut Q1-4H PRN migraine headache #1 mL 06/14/22 [Rx Last Taken Unknown] side rails for bed #1 ea 07/15/22 [Rx Last Taken Unknown] walker (Ultra-Light Rollator misc) #1 ea 08/23/22 [Rx Last Taken Unknown] hydrochlorothiazide 25 mg tablet 25 mg PO DAILY #90 tabs 08/30/22 [Rx Last Taken Unknown] ropinirole 0.5 mg tablet 0.5 mg PO QHS #90 tabs 11/12/22 [Rx Last Taken Unknown] sertraline 100 mg tablet 200 mg (2 x 100 mg) PO DAILY #180 tabs 11/12/22 [Rx Last Taken Unknown] amlodipine 5 mg tablet 5 mg PO DAILY #90 tabs 02/04/23 [Rx Last Taken Unknown] metoprolol succinate 50 mg tablet,extended release 24 hr 50 mg PO BID HTN #90 tabs 02/15/23 [Rx Last Taken Unknown] potassium chloride 20 mEq tablet,extended release 20 meq PO DAILY #90 tabs 02/15/23 [Rx Last Taken Unknown] rosuvastatin 10 mg tablet 10 mg PO QHS CHOLESTEROL #90 tabs 02/15/23 [Rx Last Taken Unknown] omeprazole 40 mg capsule,delayed release 40 mg PO DAILY #90 caps 02/21/23 [Rx Last Taken Unknown] gabapentin 100 mg capsule 100 mg PO BID 04/13/23 [History Last Taken Unknown] hydrocodone-acetaminophen 5-325mg 5mg-325mg 0.25 tab PO QHS 04/13/23 [History Last Taken Unknown] Allergy/AdvReac Type Severity Reaction Status Date / Time adhesive tape Allergy Severe Area Sore Verified 04/13/23 11:06 cefpodoxime [From Vantin] Allergy Unknown Unknown Verified 04/13/23 11:06 codeine Allergy Unknown Unknown Verified 04/13/23 11:06 metronidazole [From Flagyl] Allergy Unknown Unknown Verified 04/13/23 11:06 sulfamethoxazole Allergy Unknown Unknown Verified 04/13/23 11:06 [From Bactrim] trimethoprim [From Bactrim] Allergy Unknown Unknown Verified 04/13/23 11:06 Sulfa (Sulfonamide Allergy Unknown Verified 04/13/23 11:06 Antibiotics) Family History Sister Anesthesia complication Breast cancer Hypertension Cancer Thyroid, rectal, kidney Thyroid disorder Diabetes Mother Arthritis Pancreatic cancer Depression Diabetes Father Colon cancer Hypertension CVA (cerebral vascular accident) Sister Cancer rectal/kidney/medullary Thyroid cancer Surgical History History of back surgery History of History of cholecystectomy History of gastric surgery History of hernia repair History of hysterectomy History of left heart catheterization (10/14/20) History of left knee replacement History of right knee joint replacement 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 History of total right knee replacement Hx of breast reduction, elective Social History Smoking Status: Former smoker alcohol intake: never substance use type: does not use what type of physical activity do you participate in: none ROS ROS ED Constitutional Constitutional ED: Denies chills or fever(s) Eyes Eyes: Denies change in vision ENT ENT ED: Denies sore throat Cardiovascular Cardiovascular: Reports other Details: Negative syncope ; Denies chest pain Respiratory/Chest Respiratory/Chest: Denies cough or dyspnea Gastrointestinal Gastrointestinal: Denies abdominal pain, diarrhea, nausea or vomiting Genitourinary Genitourinary ED: Denies dysuria Musculoskeletal Musculoskeletal: Reports other; Denies back pain, myalgias or neck pain Integumentary Reports other Details: Positive laceration ; Denies rash Neurologic Neurologic: Reports headache(s); Denies paresthesias or weakness Hematologic/Lymphatic Hematologic/Lymphatic: Denies easy bleeding or easy bruising EXAM Physical Exam Const Positive well nourished and well developed General Appearance ED: well developed HEENT Reports TM's clear HEENT Narrative: Patient has a linear 1.5 cm dermal layer laceration to the left lateral portion of the frontal bone/forehead. No foreign body and minimal ooze of blood. Patient also has a 1.5 cm dermal layer linear laceration along the lateral left portion of the parietal scalp. There is minimal ooze of blood and no foreign body. Patient does have a large 4 x 2.5 cm hematoma along the left lateral portion of the scalp consistent with trauma No signs of depressed or basilar skull fracture Tympanic Membrane ED: Yes TM's clear Eyes PERRL and EOMs intact bilaterally Eyes Narrative: No hyphema noted Neck supple Neck Narrative: No bony deformity or step-off of the cervical spine Patient can move her neck in all directions without pain Chest Wall palpation of chest normal Chest Narrative: No bony deformity or crepitance Resp normal respiratory effort and clear to auscultation bilaterally Cardio regular rate and regular rhythm GI normal to inspection, nondistended, normoactive bowel sounds, non-tender, non- distended and no masses Auscultation: normoactive bowel sounds Palpation: soft Back/Spine Back/Spine Narrative: No bony deformity or step-off of the thoracic or lumbar spine no midline pain on palpation Extremity normal to inspection Extremity Narrative: Pelvis is stable there is no shortening or external rotation of either lower extremity There is pain on palpation in the left inguinal region however Neuro oriented x3, CN's II-XII intact bilaterally and no sensory deficits noted Sensorium / Orientation: alert Psych mental status grossly normal Skin no rashes or lesions noted Skin Narrative: Hematoma with lacerations to the scalp as documented above MDM MDM MDM Narrative Medical decision making narrative: Patient presented to the ER awake and alert with stable vitals. She reported a mechanical cause of her injury and therefore there is no need for cardiac or syncope work-up. As differential diagnosis includes skull fracture versus subdural or epidural hematoma versus scalp laceration with hematoma a CT scan was obtained. Patient did have pain on palpation in the left inguinal region and therefore pelvis x-ray was obtained as differential diagnosis includes contusion versus pubic rami fracture. Imaging studies revealed no acute signs of trauma. Therefore the patient had the wounds cleaned and closed as documented below and is otherwise safe for discharge Patient had her wound cleaned with chlorhexidine. Manual pressure was then applied bringing the wound edges together good approximation. Dermabond was then placed over both the left frontal and parietal lacerations. Dermabond held the wounds together well and patient tolerated procedure well without any complication. History & Record Review Discussion w/independent historian: Patient Radiography Diagnostic Testing: Clinical Impression(s) from Imaging Studies Brain CT 04/27/23 04:14 IMPRESSION: 1. Left frontal/temporal scalp swelling. 2. No acute intracranial abnormalities. 3. Age-related changes. Electronically Signed: Tay Caruso MD at 4:33 EDT , Pelvis X-Ray 04/27/23 04:15 IMPRESSION: No acute findings in the pelvis. Electronically Signed: Tay Caruso MD at 4:53 EDT , 1 view pelvis x-ray as interpreted by the emergency medicine physician reveals no acute fracture or dislocation Discharge Plan Dx/Rx/DC Orders Clinical Impression: Closed head injury, Essential (primary) hypertension, Laceration of scalp, Hematoma of scalp Prescriptions: No Action cholecalciferol (vitamin D3) 50 mcg (2,000 unit) capsule 4,000 unit PO DAILY hydrocodone-acetaminophen 5-325 mg tablet 0.25 tab PO QHS gabapentin 100 mg capsule 100 mg PO BID multivitamin with minerals 1 EACH tablet 1 tab PO DAILY biotin 2,500 MCG capsule 1 cap PO DAILY acetaminophen 500 mg tablet 1,000 mg PO Q6H PRN PRN (Reason: Mild Pain (-10/01)) Qty: 90 0RF aspirin 81 mg tablet,delayed release (DR/EC) 81 mg PO DAILY Qty: 90 1RF sumatriptan succinate 25 mg tablet See Rx Instructions PO .COMPLEX Qty: 14 1RF Rx Instructions: take 1 tab at onset of headache; if no relief may repeat 1 tab after at least 2 hrs; max = 4 tabs/24 hr PO sumatriptan succinate [Imitrex STATdose Pen] 6 mg/0.5 mL pen injector 6 mg subcut Q1-4H PRN (Reason: migraine headache) Qty: 1 1RF Rx Instructions: do not exceed 2 doses in a 24 hour period (DME) side rails for bed 0 .Route .MEDSUPPLY Qty: 1 0RF Rx Instructions: As directed (DME) Ultra-Light Rollator Misc See Rx Instructions .Route Qty: 1 0RF Rx Instructions: As directed hydrochlorothiazide 25 mg tablet 25 mg PO DAILY Qty: 90 3RF ropinirole 0.5 mg tablet 0.5 mg PO QHS Qty: 90 3RF Rx Instructions: administer 1-3 hours before bedtime sertraline 100 mg tablet 200 mg PO DAILY Qty: 180 3RF Rx Instructions: 200 mg PO daily; amlodipine 5 mg tablet 5 mg PO DAILY Qty: 90 3RF metoprolol succinate 50 mg tablet extended release 24 hr 50 mg PO BID Qty: 90 3RF potassium chloride 20 mEq tablet extended release 20 meq PO DAILY Qty: 90 3RF rosuvastatin 10 mg tablet 10 mg PO QHS Qty: 90 3RF omeprazole 40 mg capsule,delayed release(DR/EC) 40 mg PO DAILY Qty: 90 3RF Primary Care Provider: Katiana Rayo Referrals: Katiana Rayo MD [Primary Care Provider] - Disposition Disposition: Home, Self Care
== END 2023-04-27 05:00 | disposition home or self-care (01) ==
PROVIDERS: PCP Internal Medicine; Visit Provider Emergency Medicine
DX: S01.01XA Laceration without foreign body of scalp, initial encounter (principal); I10 Essential (primary) hypertension; E78.5 Hyperlipidemia, unspecified; E55.9 Vitamin D deficiency, unspecified; W06.XXXA Fall from bed, initial encounter; Z87.891 Personal history of nicotine dependence
CPT/HCPCS: 12001; 70450; 72170; 99285

== ENCOUNTER → 2023-08-01 | Outpatient (CLI) | payer MEDICARE, MEDICAID, SELFPAY ==
[2023-08-01 12:28] LABS: Erythrocyte Sedimentation Rate 28 mm/hr (0-30)
[2023-08-01 12:32] LABS: Absolute Lymphocyte Count 1.72 X10^3/uL (0.83-4.51); Absolute Neutrophil Count 7.1 X10^3/uL (2.0-7.7); Basophil# 0.06 X10^3/uL; Basophil% 0.6 % (0-1); Eosinophil# 0.25 X10^3/uL; Eosinophils% 2.5 % (0-5); Hematocrit 41.1 % (37-47); Hemoglobin 11.7 g/dL (12.0-15.0); Lymphocyte # 1.72 X10^3/ul (0.83-4.51); Lymphocyte % 17.1 % (19-41); Mean Corp Hgb Conc 28.5 g/dL (32-36); Mean Corpuscular Hgb 22.9 pg (27.0-32.0); Mean Corpuscular Volume 80.4 fL (81-99); Mean Platelet Vol. 9.2 fl (6.2-12.0); Monocyte# 0.82 X10^3/uL; Monocyte% 8.2 % (0-10); NRBC Flagged by Analyzer 0 % (0-5); Neutrophil # 7.12 X10^3/uL (2.7-7.7); Neutrophil % 70.9 % (47-70); Platelet Count 418 K/mm3 (150-450); RBC Distribution Width CV 18.9 % (11.6-14.6); RBC Distribution Width SD 54.5 fl (35.1-43.9); Red Blood Count 5.11 M/mm3 (4.2-5.4)
[2023-08-01 13:08] LABS: Vitamin D,25 Hydroxy 29.1 ng/mL
[2023-08-01 13:47] LABS: ALB/GLOB Ratio 0.8 RATIO (0.9-2.4); AST(SGOT) 41 U/L (15-37); Alanine Aminotransfer ALT/SGPT 36 U/L (13-56); Albumin, Serum 3.4 g/dL (3.2-5.0); Alkaline Phosphatase 80 U/L (45-117); Anion Gap 6 (5-15); BUN 19 mg/dL (7-18); BUN/Creat Ratio 23.8 RATIO (10-20); Calcium,Total 9.5 mg/dL (8.5-10.1); Chloride 105 mmol/L (98-107); Cholesterol 141 mg/dL (200); EST Glomerular Filtration Rate 74 mL/min (>60); Est Glom Filt Rate - Afr Amer 89 mL/min (>60); Globulin 4.1 g/dL (2.2-4.2); Glucose 106 mg/dL (74-106); High Density Lipoprotein 45 mg/dL; Magnesium 2.4 mg/dL (1.6-2.6); Potassium 3.6 mmol/L (3.5-5.1); Protein, Total 7.5 g/dL (6.4-8.2); Sodium Level 141 mmol/L (136-145); Triglycerides 117 mg/dL; Uric Acid 5.7 mg/dL (2.6-6.0); Very Low Density Lipoprotein 23 mg/dL (5-40)
[2023-08-02 16:14] LABS: Iron 32 ug/dL (50-170); Iron Binding Capacity,Total 413 ug/dL (250-450); PERCENT IRON SATURATION 7.7 % (15.0-55.0)
== END | disposition home or self-care (01) ==
LOC: BIMLAB 09:14
PROVIDERS: PCP Internal Medicine; Referring Provider Internal Medicine; Visit Provider Internal Medicine
DX: I10 Essential (primary) hypertension (principal); E78.5 Hyperlipidemia, unspecified; M19.90 Unspecified osteoarthritis, unspecified site; K21.9 Gastro-esophageal reflux disease without esophagitis; M79.89 Other specified soft tissue disorders; M10.9 Gout, unspecified; K58.9 Irritable bowel syndrome, unspecified; Z13.220 Encounter for screening for lipoid disorders; E55.9 Vitamin D deficiency, unspecified; D64.9 Anemia, unspecified
CPT/HCPCS: 36415; 80053; 80061; 82306; 83540; 83550; 83735; 84443; 84550; 85025; 85652

== ENCOUNTER 2023-08-13 19:16 | Inpatient (IN) | payer MEDICARE, MEDICAID, SELFPAY ==
[2023-08-13 19:17] VITALS: BP 106/59; PULSE 82; RESP 16; TEMP 36.3; BMI 40.4
--- NOTE | 2023-08-13 19:37 | EX.ED.DYSGE1 ---
HPI History of Present Illness Chief Complaint: Edema Detail of Chief Complaint: Unable to walk Narrative Narrative: Patient presents via EMS secondary to being unable to walk. She states that she usually gets monthly injections from pain management in her lower back. She did not go in June but is not currently complaining of back pain. She states has been having intermittent swelling in her left foot for the past month. Her primary care physician has done ultrasounds and lab work. She had no evidence of gout or DVT. She states over the last day or 2 she has not noted swelling in her right foot. This morning she was able to get up and go to her recliner to [facility]. When she tried to get up she states her feet were swollen and too painful. She was not able to bear weight. She does live alone. [facility] Medical History (Updated 08/13/23 @ 21:[address] Kelle Foster MD) Abdominal pain Asthma Chronic back pain Chronic bronchitis Chronic headaches Confusion Dark stools DDD (degenerative disc disease) Depression Essential (primary) hypertension Frequent falls GERD (gastroesophageal reflux disease) H/O emotional problems Hyperlipidemia IBS (irritable bowel syndrome) Insomnia Iron deficiency anemia Left-sided chest wall pain Localized swelling of chest wall Neuropathy Obesity Osteoarthritis Osteoarthritis of left knee Overactive bladder Pneumonia Vision problems Vitamin D deficiency Home Medications acetaminophen 500 mg tablet 1,000 mg (2 x 500 mg) PO Q6H PRN PRN Mild Pain (1-310) #90 tabs 02/07/19 [Rx Last Taken 2 Weeks Ago ~09/10/20] cholecalciferol (vitamin D3) 50 mcg (2,000 unit) capsule 4,000 unit PO DAILY SUPPLEMENT 09/10/19 [History Last Taken 09/24/20] biotin 2,500 mcg capsule 1 cap PO DAILY supplement 09/24/20 [History Last Taken 09/24/20] multivitamin with minerals 1 tab PO DAILY supplement 09/24/20 [History Last Taken 09/24/20] sumatriptan succinate 25 mg tablet See Rx Instructions PO .COMPLEX #14 tabs 06/14/22 [Rx Last Taken Unknown] sumatriptan succinate 6 mg/0.5 mL subcutaneous pen injector (Imitrex STATdose Pen) 6 mg (0.5 mL) subcut Q1-4H PRN migraine headache #1 mL 06/14/22 [Rx Last Taken Unknown] side rails for bed #1 ea 07/15/22 [Rx Last Taken Unknown] walker (Ultra-Light Rollator misc) #1 ea 08/23/22 [Rx Last Taken Unknown] ropinirole 0.5 mg tablet 0.5 mg PO QHS #90 tabs 11/12/22 [Rx Last Taken Unknown] sertraline 100 mg tablet 200 mg (2 x 100 mg) PO DAILY #180 tabs 11/12/22 [Rx Last Taken Unknown] amlodipine 5 mg tablet 5 mg PO DAILY #90 tabs 02/04/23 [Rx Last Taken Unknown] metoprolol succinate 50 mg tablet,extended release 24 hr 50 mg PO BID HTN #90 tabs 02/15/23 [Rx Last Taken Unknown] potassium chloride 20 mEq tablet,extended release 20 meq PO DAILY #90 tabs 02/15/23 [Rx Last Taken Unknown] rosuvastatin 10 mg tablet 10 mg PO QHS CHOLESTEROL #90 tabs 02/15/23 [Rx Last Taken Unknown] omeprazole 40 mg capsule,delayed release 40 mg PO DAILY #90 caps 02/21/23 [Rx Last Taken Unknown] hydrocodone-acetaminophen 5-325mg 5mg-325mg 0.25 tab PO QHS 04/13/23 [History Last Taken Unknown] hydrochlorothiazide 25 mg tablet 25 mg PO DAILY #90 tabs 07/29/23 [Rx Last Taken Unknown] gabapentin 100 mg capsule mg 08/13/23 [History Last Taken Unknown] Allergy/AdvReac Type Severity Reaction Status Date / Time adhesive tape Allergy Severe Area Sore Verified 07/28/23 14:17 cefpodoxime [From Vantin] Allergy Unknown Unknown Verified 07/28/23 14:17 codeine Allergy Unknown Unknown Verified 07/28/23 14:17 metronidazole [From Flagyl] Allergy Unknown Unknown Verified 07/28/23 14:17 sulfamethoxazole Allergy Unknown Unknown Verified 07/28/23 14:17 [From Bactrim] trimethoprim [From Bactrim] Allergy Unknown Unknown Verified 07/28/23 14:17 Sulfa (Sulfonamide Allergy Unknown Verified 07/28/23 14:17 Antibiotics) Family History Sister Anesthesia complication Breast cancer Hypertension Cancer Thyroid, rectal, kidney Thyroid disorder Diabetes Mother Arthritis Pancreatic cancer Depression Diabetes Father Colon cancer Hypertension CVA (cerebral vascular accident) Sister Cancer rectal/kidney/medullary Thyroid cancer Surgical History History of back surgery History of History of cholecystectomy History of gastric surgery History of hernia repair History of hysterectomy History of left heart catheterization (10/14/20) History of left knee replacement History of right knee joint replacement 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 History of total right knee replacement Hx of breast reduction, elective Social History household members: none housing: apartment Smoking Status: Former smoker alcohol intake: never substance use type: does not use what type of physical activity do you participate in: none ROS ROS ED Constitutional Constitutional ED: Denies chills or fever(s) Eyes Eyes: Denies discharge from eye(s) ENT ENT ED: Denies discharge from eye(s), rhinorrhea or sore throat Cardiovascular Cardiovascular: Denies chest pain or palpitations Respiratory/Chest Respiratory/Chest: Denies cough or dyspnea Gastrointestinal Gastrointestinal: Denies abdominal pain, nausea or vomiting Musculoskeletal Musculoskeletal: Reports extremity pain; Denies back pain Integumentary Denies Abrasions or rash Neurologic Neurologic: Denies headache(s) or weakness Psychiatric Psychiatric: Denies anxiety or depression Allergic/Immunologic Allergic/Immunologic ED: Denies lip swelling or urticaria EXAM Physical Exam Const Vital Signs: 08/13/23 19:17 08/13/23 19:22 08/13/23 20:40 Temperature 97.3 F L Temperature Source Temporal Pulse Rate 82 77 Respiratory Rate 16 Respiratory Effort Normal Respiratory Pattern Normal Blood Pressure 106/59 L 95/54 L Blood Pressure Mean 74 67 Positive obese Nutritional Appearance: obese HEENT Reports moist mucous membranes Eyes EOMs intact bilaterally Chest Wall inspection of chest normal and palpation of chest normal Resp normal respiratory effort and clear to auscultation bilaterally Cardio regular rate and regular rhythm GI non-tender Palpation: soft Extremity Extremity Narrative: No appreciable edema in the left foot at this time. No tenderness. Patient does have 2+ edema in the right foot with mild erythema and warmth. No wounds or open lesions noted. Strong distal pulses. No calf tenderness or edema. Neuro oriented x3 and no sensory deficits noted Psych mental status grossly normal MDM MDM MDM Narrative Medical decision making narrative: Patient does live alone and currently states she cannot ambulate. IV line will be established and lab work will be obtained to evaluate for any electrolyte derangement, anemia. History & Record Review Discussion w/independent historian: Patient and Family Lab Data Attestation: I reviewed the patient's lab results. Labs: Laboratory Results - last 24 hr 08/13/23 08/13/23 19:49 20:41 WBC 15.2 H RBC 4.91 Hgb 11.2 L Hct 38.6 MCV 78.6 L MCH 22.8 L MCHC 29.0 L RDW Std Deviation 52.9 H RDW Coeff of Karon 18.5 H Plt Count 335 MPV 8.7 Immature Gran % (Auto) 0.600 Neut % (Auto) 77.3 H Lymph % (Auto) 9.8 L [place] % (Auto) 11.6 H Eos % (Auto) 0.4 Baso % (Auto) 0.3 Absolute Neuts (auto) 11.8 H Absolute Lymphs (auto) 1.50 Nucleated RBC % 0 Differential Comment SCANNED Diff Path Review May foll Sodium 135 L Potassium 3.0 L Chloride 100 Carbon Dioxide 28.0 Anion Gap 7 BUN 13 Creatinine 0.99 Estim Creat Clear Calc 55.85 Est GFR (MDRD) Af Amer 70 Est GFR (MDRD) Non-Af 58 L BUN/Creatinine Ratio 13.1 Glucose 127 H Uric Acid 5.8 Calcium 9.7 B-Natriuretic Peptide 90.4 Urine Color Tram Urine Clarity Sl. Cloudy Urine pH 5.0 Ur Specific [place] 1.020 Urine Protein 30 H Urine Glucose (UA) Normal Urine Ketones 5 H Urine Occult Blood 50 H Urine Nitrite Negative Urine Bilirubin 3 H Urine Urobilinogen 1 H Ur Leukocyte Esterase 100 H Urine RBC 0-5 SEEN Urine WBC 5-10 SEEN Ur Squamous Epith Cells 0-5 SEEN Urine Bacteria RARE Urine Mucus 1+ Treatment and Re-Evaluation :: Patient's white blood cell count is elevated at 15.2 with 77% neutrophils. Hemoglobin low at 11.2, consistent with her baseline. Chemistry studies reveal a sodium of 135 and a potassium of 3.0. This is replaced orally. BNP is normal at 90. Urinalysis reveals rare bacteria with 5-10 white cells and no nitrites. This be sent for culture. On repeat exam patient's legs are rechecked. She continues to have mild erythema on the right that is now extended up onto her weiss. I will go ahead and cover her with a dose of clindamycin for cellulitis. Patient's family now states that the patient was supposed to come in a few days ago for x-rays of her left leg and foot to rule out a stress fracture. Given she is now having symptoms on both legs these x-rays will be obtained. Given the patient lives alone and cannot walk I will speak with hospitalist regarding admission for antibiotics and physical therapy. Discharge Plan Triage Chief Complaint: Edema ED Provider: Kelle Foster Dx/Rx/DC Orders Clinical Impression: Cellulitis, Unable to ambulate Prescriptions: No Action cholecalciferol (vitamin D3) 50 mcg (2,000 unit) capsule 4,000 unit PO DAILY hydrocodone-acetaminophen 5-325 mg tablet 0.25 tab PO QHS multivitamin with minerals 1 EACH tablet 1 tab PO DAILY biotin 2,500 MCG capsule 1 cap PO DAILY gabapentin 100 mg capsule acetaminophen 500 mg tablet 1,000 mg PO Q6H PRN PRN (Reason: Mild Pain (-10/01)) Qty: 90 0RF sumatriptan succinate 25 mg tablet See Rx Instructions PO .COMPLEX Qty: 14 1RF Rx Instructions: take 1 tab at onset of headache; if no relief may repeat 1 tab after at least 2 hrs; max = 4 tabs/24 hr PO sumatriptan succinate [Imitrex STATdose Pen] 6 mg/0.5 mL pen injector 6 mg subcut Q1-4H PRN (Reason: migraine headache) Qty: 1 1RF Rx Instructions: do not exceed 2 doses in a 24 hour period (DME) side rails for bed 0 .Route .MEDSUPPLY Qty: 1 0RF Rx Instructions: As directed (DME) Ultra-Light Rollator Misc See Rx Instructions .Route Qty: 1 0RF Rx Instructions: As directed ropinirole 0.5 mg tablet 0.5 mg PO QHS Qty: 90 3RF Rx Instructions: administer 1-3 hours before bedtime sertraline 100 mg tablet 200 mg PO DAILY Qty: 180 3RF Rx Instructions: 200 mg PO daily; amlodipine 5 mg tablet 5 mg PO DAILY Qty: 90 3RF metoprolol succinate 50 mg tablet extended release 24 hr 50 mg PO BID Qty: 90 3RF potassium chloride 20 mEq tablet extended release 20 meq PO DAILY Qty: 90 3RF rosuvastatin 10 mg tablet 10 mg PO QHS Qty: 90 3RF omeprazole 40 mg capsule,delayed release(DR/EC) 40 mg PO DAILY Qty: 90 3RF hydrochlorothiazide 25 mg tablet 25 mg PO DAILY Qty: 90 3RF Primary Care Provider: Katiana Rayo Referrals: Katiana Rayo MD [Primary Care Provider] - Disposition Disposition: Acute Care Hospital [facility]
--- OUTSIDE RECORDS SUMMARY | 2023-08-13 19:42 | XMS RPT_ITS | CCD ---
Author Name Unknown Address [address] [place] [address] Organization [facility] Results Test Name Value Interpretation Reference Range Facil ity Progress note 11-14-2020 Note Date & Type Note Facility 11-14-2020 Note HNO ID: [id number] Author: Eric Sol Service: ? Author Type: Physician Type: Progress Notes Filed: 11/14/2020 2:54 PM Note Text: Subjective: Patient presents to clinic c/o painful toenails. They state that the nails are especially painful with shoe gear and pressure. Patient states that nails 1-5 b/l are painful. No other pedal complaints at this time. Patient states no change in medications or medical history since last visit. Objective: Patient presents to clinic ambulating in [facility] Vasc: DP and PT pulses are decreased bilateral. CFT is less than 5 seconds bilateral. Skin temperature is warm to cool proximal to distal bilateral. There is no edema or varicosities noted. Neuro: Protective sensation is intact to the foot and toes when tested with the 5.07 SWM bilateral. Vibratory sensation is decreased at the hallux IPJ bilateral. The hallux is downgoing bilateral. Derm: Nails 1-5 b/l are painful, discolored-yellow, thick, crumbly, dystrophic and with subungal debris. Skin is of normal turgor, texture and hair growth is present bilateral. There are no hyperkeratosis, ulcerations, scars, verruca or other lesions noted. Ortho: Muscle strength is 5/5 for all pedal groups tested. Ankle joint DF is decreased with the knee extended with no pain or crepitus noted. 1st MPJ ROM is decreased bilateral. Small bunion of right foot causing rubbing on right 2nd toe. No pain noted Assessment: (B35.1) Onychomycosis (primary encounter diagnosis) (M79.675) Pain in toe of left foot (M79.674) Pain in toe of right foot (M20.11) Hallux valgus of right foot Plan: Patient was seen and evaluated. Nails 1-5 bilateral were debrided in length and thickness. Recommend toe spacer for bunion. If patient has pain, surgical correction is an option. Patient was instructed on the continued importance of diabetic foot care along with proper diet and keeping their blood sugar under control to prevent complications. Patient is to RTC in 3-4 months. Eric Sol DPM [facility] Progress note 11-14-2020 Note Date & Type Note Facility 11-14-2020 Note HNO ID: [id number] Author: Paty Harmon RN Service: ? Author Type: ? Type: Progress Notes Filed: 11/14/2020 2:54 PM Note Text: AMB ROOMING INTAKE FLOWSHEET DATA Risk Screening Do you have concerns about personal safety or safety in the home?: No Patient presents with: Left Foot - Established Patient, Nail Care Right Foot - Established Patient, Nail Care [facility] Clinical Note 09-16-2020 Note Date & Type Note Facility 09-16-2020 Note Patient Outreach ([facility]) VANESSA KLINE ([id number]) 1945 F Date Time Provider Department 09/16/20 HEATHER RODGERS During your visit today, we recorded the following information about you: Allergies As of Date: 09/16/2020 Noted Allergy Reaction ADHESIVE TAPE-SILICONES 05/06/2020 5 - Intolerance Comments: Tears skin BACTRIM (SULFAMETHOXAZOLE-TRIMETH*06/02/2018 2 - Rash CODEINE 06/02/2018 1 - Mental Status Change FLAGYL (METRONIDAZOLE HCL) 06/02/2018 2 - Rash SULFA (SULFONAMIDE ANTIBIOTICS) 06/02/2018 14 - Other: See Comments Comments: Does not remember Date Reviewed: 08/15/2020 Reviewed by: Catrachita Torres Ma - Fully Assessed Order(s):SARS-COVID VACCINE 1ST DOSE APPT [[id number]] Order #: [id number] FUTURE Prescriptions as of 09/16/2020 Sig: OMEPRAZOLE 40 MG CAPSULE,REGLA* Take 1 capsule by mouth once * LOSARTAN 100 MG TABLET Take 1 tablet by mouth once d* MOVANTIK 12.5 MG TABLET Take 1 tablet by mouth once d* CHOLECALCIFEROL (VITAMIN D3) * Take 1,000 Units by mouth twi* GABAPENTIN 300 MG CAPSULE Take 300 mg by mouth three ti* HYDROCHLOROTHIAZIDE 25 MG TAB* Take 25 mg by mouth once patience* IRON,CARBONYL 65 MG-VITAMIN C* Take 1 tablet by mouth once d* METOPROLOL SUCCINATE ER 50 MG* Take 50 mg by mouth twice niraj* MULTIVITAMIN ORAL Take 1 tablet by mouth once d* MIRABEGRON ER 25 MG TABLET,EX* Take 25 mg by mouth twice niraj* ROSUVASTATIN 10 MG TABLET Take 10 mg by mouth daily at * SERTRALINE 100 MG TABLET Take 200 mg by mouth once niraj* SUMATRIPTAN 6 MG/0.5 ML SUBCU* by SUBDERMAL route as needed. TRAMADOL 50 MG TABLET Take 1 tablet by mouth three * TRAZODONE 50 MG TABLET Take by mouth daily at bedtim* MECLIZINE 12.5 MG TABLET Take 1 tablet by mouth three * Problem List As Of Date: 09/16/2020 (None) Letter Text Encounter Status:Closed by EPIC, PRODUSER on 09/19/20 [facility] Summary Purpose Family History No Family History Records Found Advance Directives No Advanced Directives Records Found Additional Source Comments INFORMATION SOURCE (unrecogn ized section and content) FOR RECORDS PERTAINING TO PATIENTS WHO ARE OR HAVE BEEN ENROLLED IN A CHEMICAL DEPENDENCY/SUBSTANCEABUSE PROGRAM, SOME INFORMATION MAY BE OMITTED. This clinical summary was aggregated from multiple sources. Caution should be exercised in using it in the provision of clinical care. This summary normalizes information from multiple sources, and as a consequence, information in this document may materially change the coding, format and clinical context of patient data. In addition, data may be omitted in some cases. CLINICAL DECISIONS SHOULD BE BASED ON THE PRIMARY CLINICAL RECORDS. [facility]. provides no warranty or guarantee of the accuracy or completeness of information in this document.
[2023-08-13 19:54] LABS: Absolute Neutrophil Count 11.8 X10^3/uL (2.0-7.7); Basophil# 0.05 X10^3/uL; Basophil% 0.3 % (0-1); Eosinophil# 0.06 X10^3/uL; Eosinophils% 0.4 % (0-5); Hematocrit 38.6 % (37-47); Hemoglobin 11.2 g/dL (12.0-15.0); Lymphocyte % 9.8 % (19-41); Mean Corpuscular Hgb 22.8 pg (27.0-32.0); Mean Corpuscular Volume 78.6 fL (81-99); Mean Platelet Vol. 8.7 fl (6.2-12.0); Monocyte# 1.77 X10^3/uL; Monocyte% 11.6 % (0-10); NRBC Flagged by Analyzer 0 % (0-5); Neutrophil # 11.76 X10^3/uL (2.7-7.7); Neutrophil % 77.3 % (47-70); POSITIVE DIFFERENTIAL YES; Platelet Count 335 K/mm3 (150-450); RBC Distribution Width CV 18.5 % (11.6-14.6); RBC Distribution Width SD 52.9 fl (35.1-43.9); Red Blood Count 4.91 M/mm3 (4.2-5.4); White Blood Count 15.2 K/mm3 (4.4-11.0)
[2023-08-13 20:02] LABS: Differential Indicated SCAN CRITERIA MET
[2023-08-13 20:13] LABS: Anion Gap 7 (5-15); BUN 13 mg/dL (7-18); BUN/Creat Ratio 13.1 RATIO (10-20); Calcium,Total 9.7 mg/dL (8.5-10.1); Chloride 100 mmol/L (98-107); Creatinine, Serum 0.99 mg/dL (0.55-1.02); EST Glomerular Filtration Rate 58 mL/min (>60); Est Glom Filt Rate - Afr Amer 70 mL/min (>60); Estimated Creatinine Clearance 55.85 ml/min; Glucose 127 mg/dL (74-106); Sodium Level 135 mmol/L (136-145); Uric Acid 5.8 mg/dL (2.6-6.0)
[2023-08-13 20:18] LABS: Differential Comment SCANNED
[2023-08-13 20:28] LABS: BNP,B-Type NATRIURETIC PEPTIDE 90.4 pg/mL (0-100)
[2023-08-13 20:40] VITALS: BP 95/54; PULSE 77
[2023-08-13 20:47] LABS: Color, Urine Amber (Yellow); Glucose, Dipstick Normal (Normal); Ketone-Dipstick 5 mg/dl (Negative); Leukocyte Esterase-Dipstick 100 /ul (Negative); Nitrite-Dipstick Negative (Negative); Occult Blood-Urine 50 /ul (Negative); Protein-Dipstick 30 mg/dl (Negative); Urine Clarity Sl. Cloudy (Clear); Urine Urobilinogen 1 mg/dl (Normal)
[2023-08-13] MEDS: Potassium Chloride Oral Tablet 20 MEQ 40 MEQ PO (20:51)
[2023-08-13 20:58] LABS: Urine Bilirubin Dipstick 3 mg/dL (Negative)
[2023-08-13 20:59] LABS: Red Blood Cells-Urine 0-5 SEEN /hpf (0-5); Squamous Epithelial Cells - UA 0-5 SEEN /hpf (5-10); White Blood Cells 5-10 SEEN /hpf (0-5)
[2023-08-13 21:00] LABS: Bacteria RARE /hpf (None Seen); Mucous, Urine 1+ /hpf (<or=2+)
--- NOTE | 2023-08-13 21:18 | RAD_ITS ---
INDICATION: pain EXAMINATION/TECHNIQUE: X-RAY - LEFT XR Tibia/Fibula 2 Views 2 VIEWS COMPARISON: No relevant prior comparison study available FINDINGS: SOFT TISSUES: No soft tissue swelling or gas. No radiopaque foreign body. BONES/JOINTS: No acute fracture or subluxation.. Total knee arthroplasty is noted. No evidence of hardware failure. Preservation of the joint space.. No sclerotic or destructive changes observed. RAD/Tibia & Fibula 2 Views IMPRESSION: 1. No evidence fracture, malalignment or focal bony or joint space abnormality. 2. Total knee arthroplasty, no malalignment or hardware failure. Electronically Signed: Tee Oneill MD at 21:56 EST ,
--- NOTE | 2023-08-13 21:21 | RAD_ITS ---
INDICATION: pain EXAMINATION/TECHNIQUE: X-RAY - RIGHT XR Tibia/Fibula 2 Views 2 VIEWS COMPARISON: No relevant prior comparison study available FINDINGS: SOFT TISSUES: No soft tissue swelling or gas. No radiopaque foreign body. BONES/JOINTS: No acute fracture or subluxation.. Total knee arthroplasty is present. No evidence of hardware failure. Preservation of the joint space.. No sclerotic or destructive changes observed. RAD/Tibia & Fibula 2 Views IMPRESSION: 1. No evidence fracture, malalignment or focal bony or joint space abnormality. 2. Total knee arthroplasty with normal alignment. No evidence of hardware failure. Electronically Signed: Tee Oneill MD at 21:55 EST ,
--- NOTE | 2023-08-13 21:22 | RAD_ITS ---
INDICATION: pain EXAMINATION/TECHNIQUE: X-RAY - RIGHT XR Foot Min 3 Views 3 VIEWS COMPARISON: No relevant prior comparison study available FINDINGS: SOFT TISSUES: Moderate soft tissue swelling of the dorsum of the forefoot. No radiopaque foreign body. BONES/JOINTS: There is normal bony alignment, moderate degenerative change at the midfoot particularly the tarsometatarsal articulations of the 1st through 4th digits. No fractures identified. No acute destructive bony process. Remaining joint spaces are maintained. Plantar spur is incidentally noted. RAD/Foot min 3 Views IMPRESSION: 1. No evidence of fracture or dislocation. 2. Moderate degenerative change involving the midfoot as detailed. No acute destructive bony process. 3. Dorsal soft tissue swelling is present Electronically Signed: Tee Oneill MD at 21:55 EST ,
--- NOTE | 2023-08-13 21:26 | HP.PCM.HOS_ITS ---
[facility] - General General Date of Admission: 08/13/23 Date of Service: 08/13/23 Chief Complaint: RLE Edema, Erythema and Pain with Inability to Walk. HPI Narrative VANESSA HERNANDEZ, is a 78 F with a past medical history of essential hypertension, hyperlipidemia, morbid obesity; BMI of 40.4 this admission, migraine headaches; on as needed sumatriptan, iron deficiency anemia, degenerative disc disease, neuropathy, restless leg syndrome, history of frequent falls, irritable bowel syndrome, overactive bladder, history of pneumonia, GERD and osteoarthritis; with chronic back pain typically treated with monthly steroid injections from pain management (but she did not receive an injection in June 2023) who presents to [facility] ER complaining of right lower extremity edema, erythema and pain with inability to walk. Ms. Hernandez reports her symptoms began approximately 2 days prior to admission with a gradual onset of progressi vely worsening swelling and redness of her right foot. She had previously been seen by her primary care physician with ultrasounds and lab work done that showed no evidence of DVT or gout because she was having swelling of her LLE. Then earlier this morning when she tried to stand up her feet were too swollen and painful leaving her unable to bear weight. She lives alone and cannot care for herself in her current condition. She denies associated fever, chills, nausea, vomiting, headache, chest pain or palpitations. In the ER she was diagnosed with right lower extremity cellulitis and her urinalysis was positive for acute cystitis; without hematuria with leukocytosis of 15.2 present on a dmission complicated by laboratory evidence of hypokalemia of 3 mmol/L present on admission (along with a normal brain natriuretic peptide of 90.4 pg/mL present on admission making CHF relatively unlikely) compounded by clinical evidence of generalized weakness with ambulatory dysfunction and she was then admitted to the general medical floor for ongoing care for stay that is expected to be greater than 48 hours. [facility] Medical History (Updated 08/14/23 @ 05:[address] Felipe Drew DO) Abdominal pain Asthma Chronic back pain Chronic bronchitis Chronic headaches Confusion Dark stools DDD (degenerative disc disease) Depression Essential (primary) hypertension Frequent falls GERD (gastroesophageal reflux disease) H/O emotional problems Hyperlipidemia Hypokalemia IBS (irritable bowel syndrome) Insomnia Iron deficiency anemia Left-sided chest wall pain Localized swelling of chest wall Neuropathy Obesity Osteoarthritis Osteoarthritis of left knee Overactive bladder Pneumonia Vision problems Vitamin D deficiency Home Medications acetaminophen 500 mg tablet 1,000 mg (2 x 500 mg) PO Q6H PRN PRN Mild Pain (1- 10/01) #90 tabs 02/07/19 [Rx Last Taken 08/12/23 16:15 1,000 mg] cholecalciferol (vitamin D3) 50 mcg (2,000 unit) capsule 4,000 unit PO DAILY SUPPLEMENT 09/10/19 [History Last Taken 09/24/20] biotin 2,500 mcg capsule 1 cap PO DAILY supplement 09/24/20 [History Last Taken 09/24/20] multivitamin with minerals 1 tab PO DAILY supplement 09/24/20 [History Last Taken 09/24/20] sumatriptan succinate 25 mg tablet See Rx Instructions PO .COMPLEX #14 tabs 06/14/22 [Rx Last Taken Unknown] sumatriptan succinate 6 mg/0.5 mL subcutaneous pen injector (Imitrex STATdose Pen) 6 mg (0.5 mL) subcut Q1-4H PRN migraine headache #1 mL 06/14/22 [Rx Last Taken Unknown] side rails for bed #1 ea 07/15/22 [Rx Last Taken Unknown] walker (Ultra-Light Rollator misc) #1 ea 08/23/22 [Rx Last Taken Unknown] ropinirole 0.5 mg tablet 0.5 mg PO QHS #90 tabs 11/12/22 [Rx Last Taken Unknown] sertraline 100 mg tablet 200 mg (2 x 100 mg) PO DAILY #180 tabs 11/12/22 [Rx Last Taken Unknown] amlodipine 5 mg tablet 5 mg PO DAILY #90 tabs 02/04/23 [Rx Last Taken 08/13/23 09:00 5 mg] metoprolol succinate 50 mg tablet,extended release 24 hr 50 mg PO BID HTN #90 tabs 02/15/23 [Rx Last Taken 08/13/23 09:00 50 mg] potassium chloride 20 mEq tablet,extended release 20 meq PO DAILY #90 tabs 02/15/23 [Rx Last Taken Unknown] rosuvastatin 10 mg tablet 10 mg PO QHS CHOLESTEROL #90 tabs 02/15/23 [Rx Last Taken Unknown] omeprazole 40 mg capsule,delayed release 40 mg PO DAILY #90 caps 02/21/23 [Rx Last Taken Unknown] hydrocodone-acetaminophen 5-325mg 5mg-325mg 0.25 tab PO QHS 04/13/23 [History Last Taken Unknown] hydrochlorothiazide 25 mg tablet 25 mg PO DAILY #90 tabs 07/29/23 [Rx Last Taken Unknown] gabapentin 100 mg capsule 100 mg PO BID pain 08/13/23 [History Last Taken Unknown] Allergy/AdvReac Type Severity Reaction Status Date / Time adhesive tape Allergy Severe Area Sore Verified 07/28/23 14:17 cefpodoxime [From Vantin] Allergy Unknown Unknown Verified 07/28/23 14:17 codeine Allergy Unknown Unknown Verified 07/28/23 14:17 metronidazole [From Flagyl] Allergy Unknown Unknown Verified 07/28/23 14:17 sulfamethoxazole Allergy Unknown Unknown Verified 07/28/23 14:17 [From Bactrim] trimethoprim [From Bactrim] Allergy Unknown Unknown Verified 07/28/23 14:17 Sulfa (Sulfonamide Allergy Unknown Verified 07/28/23 14:17 Antibiotics) Family History Sister Anesthesia complication Breast cancer Hypertension Cancer Thyroid, rectal, kidney Thyroid disorder Diabetes Mother Arthritis Pancreatic cancer Depression Diabetes Father Colon cancer Hypertension CVA (cerebral vascular accident) Sister Cancer rectal/kidney/medullary Thyroid cancer Surgical History History of back surgery History of History of cholecystectomy History of gastric surgery History of hernia repair History of hysterectomy History of left heart catheterization (10/14/20) History of left knee replacement History of right knee joint replacement 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 History of total right knee replacement Hx of breast reduction, elective Social History household members: none housing: apartment Smoking Status: Former smoker alcohol intake: never substance use type: does not use what type of physical activity do you participate in: none ROS ROS Narrative Review of systems: Constitutional: Patient denies fever or chills. Eyes: Patient denies visual disturbance. ENT: Patient denies runny nose, sore throat, difficulty swallowing or ear pain. CV: Patient denies chest pain or palpitations. : Patient denies hematuria. GI: Patient denies abdominal pain, nausea or vomiting. MSK: Patient admits to pain in her Right leg and foot made worse with weight bearing. Skin: Patient denies abrasions or rash. Neuro: Patient denies headache, paresthesias or focal neurologic weakness. Psych: Patient denies depression or anxiety. Allergic: Patient denies lip swelling, tongue swelling or urticaria. Hematology: Patient denies easy bleeding or easy bruisability. 14 point ROS otherwise negative except for positives noted above in HPI. Vital Signs Vital Signs Vital Signs: 08/13/23 19:17 08/13/23 19:22 08/13/23 20:40 Temperature 97.3 F L Temperature Source Temporal Pulse Rate 82 77 Respiratory Rate 16 Respiratory Effort Normal Respiratory Pattern Normal Blood Pressure 106/59 L 95/54 L Blood Pressure Mean 74 67 Weight Weight: 235 lb 7.259 oz Body Mass Index (BMI) 40.4 Physical Exam Const alert, oriented x3 and no apparent distress Constitutional Narrative: Patient is obese. General Appearance: cooperative HEENT normocephalic, head/scalp atraumatic, hearing grossly normal bilaterally, moist oral mucous membranes and oropharynx normal Eyes PERRL and EOMs intact bilaterally Neck no lymphadenopathy and supple Resp normal respiratory effort, no retractions, no use of accessory muscles and clear to auscultation bilaterally Cardio regular rate and regular rhythm GI normal to inspection, nondistended, normoactive bowel sounds, soft to palpation, non-tender and non-distended Extremity Extremity Narrative: 2+ edema of the Right foot with associated moderate erythema, warmth and TTP. No open wounds or lesions noted. Good pulses and capillary refill. No calf tenderness or edema. Skin Skin Narrative: 2+ edema of the Right foot with associated moderate erythema, warmth and TTP. Neuro oriented x3, CN's II-XII intact bilaterally, moves all extremities and no focal motor deficits Sensorium / Orientation: awake, alert, oriented to person, oriented to place and oriented to time Speech: speech normal Motor Exam: strength 5/5 throughout Psych affect normal Results Medical Records Data Attestation: I reviewed the patient's medical records Lab / Micro Data Attestation: I reviewed the patient's lab results. 08/13/23 19:49 08/13/23 19:49 Labs: Laboratory Results - last 24 hr 08/13/23 19:49: WBC 15.2 H, RBC 4.91, Hgb 11.2 L, Hct 38.6, MCV 78.6 L, MCH 22.8 L, MCHC 29.0 L, RDW Std Deviation 52.9 H, RDW Coeff of Karon 18.5 H, Plt Count 335, MPV 8.7, Immature Gran % (Auto) 0.600, Neut % (Auto) 77.3 H, Lymph % (Auto) 9.8 L, [place] % (Auto) 11.6 H, Eos % (Auto) 0.4, Baso % (Auto) 0.3, Absolute Neuts (auto) 11.8 H, Absolute Lymphs (auto) 1.50, Nucleated RBC % 0, Differential Comment SCANNED, Diff Path Review November, Sodium 135 L, Potassium 3.0 L, Chloride 100, Carbon Dioxide 28.0, Anion Gap 7, BUN 13, Creatinine 0.99, Estim Creat Clear Calc 55.85, Est GFR (MDRD) Af Amer 70, Est GFR (MDRD) Non-Af 58 L, BUN/Creatinine Ratio 13.1, Glucose 127 H, Uric Acid 5.8, Calcium 9.7, B- Natriuretic Peptide 90.4 08/13/23 20:41: Urine Color Tram, Urine Clarity Sl. Cloudy, Urine pH 5.0, Ur Specific [place] 1.020, Urine Protein 30 H, Urine Glucose (UA) Normal, Urine Ketones 5 H, Urine Occult Blood 50 H, Urine Nitrite Negative, Urine Bilirubin 3 H, Urine Urobilinogen 1 H, Ur Leukocyte Esterase 100 H, Urine RBC 0-5 SEEN, Urine WBC 5-10 SEEN, Ur Squamous Epith Cells 0-5 SEEN, Urine Bacteria RARE, Urine Mucus 1+ Assessment & Plan Assessment/Plan (1) Cellulitis: QUALIFIERS: Site of cellulitis: extremity Site of cellulitis of extremity: lower extremity Laterality: right Qualified Code(s): L03.115 - Cellulitis of right lower limb (2) Acute cystitis without hematuria: (3) Hypokalemia: (4) Generalized weakness: (5) Ambulatory dysfunction: PLAN: Plan 1. Acute cellulitis of the right foot with leukocytosis of 15.2 present on admission - Admit to general medical floor on contact precautions. Stop IV clindamycin began in the ER in favor of IV vancomycin along with probiotic, vitamin D3, vitamin C and zinc. Give Tylenol as needed pain or fever. Finally, d dimer is pending at this time with patient empirically treated with full-dose Lovenox along with RLE doppler to evaluate for possible DVT in the AM. 2. Acute cystitis; without hematuria complicating #1 - Cover with IV Cipro and await culture and sensitivity data. 3. Hypokalemia of 3 mmol/L present on admission - Give supplemental KCl and then recheck BMP in the AM to ensure correction. 4. Generalized weakness with ambulatory dysfunction arising from #1 - #3 in the setting of known frequent falls previously and osteoarthritis; with chronic back pain typically treated with monthly steroid injections from pain management (but she did not receive an injection in June 2023) - PT/OT and Case Management to consult and treat on-rounds in the AM as this patient with likely require s ome form of subacute rehabilitation with help appreciated in advance. 5. Morbid obesity; BMI of 40.4 this admission adding to the pathology of #1- #4 - Weight loss will be recommended. Check TSH. 6. Essential hypertension - Continue home regimen as previous plus give as needed IV hydralazine for systolic blood pressure greater than 160 mmHg. 7. Hyperlipidemia - Resume statin. 8. Migraine headaches; on as needed sumatriptan - Stable with no complaints of headache at this time. Continue as needed sumatriptan as previous. 9. Iron deficiency anemia - Stable with a hemoglobin of 11.2 g/dL present on admission. 10. Degenerative disc disease - Stable. 11. RLS - Continue Requip as previous. 12. Neuropathy - Stable. 13. Irritable bowel syndrome - Stable. 14. Overactive bladder - Stable. 15. History of pneumonia Noted. 16. GERD - Continue PPI. 17. DVT prophylaxis - Patient on full-dose Lovenox for #1 until DVT can be ruled out on LE doppler. Total time: Approximately 55 minutes. Charges/Coding Visit Charges Inpatient E&M: 25132 Init Hosp L2
--- NOTE | 2023-08-13 21:35 | RAD_ITS ---
INDICATION: pain EXAMINATION/TECHNIQUE: X-RAY - LEFT XR Foot Min 3 Views 3 VIEWS COMPARISON: No relevant prior comparison study available FINDINGS: SOFT TISSUES: No soft tissue swelling or gas. No radiopaque foreign body. BONES/JOINTS: Bony onset normal alignment however degenerative changes are present at the 1st MTP, and total lesser extent at the tarsometatarsal articulation at the base of the 2nd 3rd and 4th digits. No fractures or dislocation. No malalignment. Incidental note of a prominent plantar spur. RAD/Foot min 3 Views IMPRESSION: 1. No evidence of fractures dislocation or malalignment. 2. Moderate degenerative change involving the midfoot and forefoot as detailed. Electronically Signed: Tee Oneill MD at 21:53 EST ,
--- OUTSIDE RECORDS SUMMARY | 2023-08-13 21:50 | XMS RPT_ITS | CCD ---
Author Name Unknown Address [address] [place] [address] Organization [facility] Results Test Name Value Interpretation Reference Range Facil ity Progress note 11-14-2020 Note Date & Type Note Facility 11-14-2020 Note HNO ID: [id number] Author: Eric Sol Service: ? Author Type: [...] [facility] DP and PT pulses are decreased [...] RTC in 3-4 months. Eric Sol DPM [facility] Progress note 11-14-2020 Note Date & Type Note Facility 11-14-2020 Note HNO ID: [id number] Author: Paty Harmon RN Service: ? Author Type: ? Type: Progress Notes Filed: 11/14/2020 2:54 PM Note Text: AMB ROOMING INTAKE FLOWSHEET DATA Risk Screening Do you have concerns about personal safety or safety in the home?: No Patient presents with: Left Foot - Established Patient, Nail Care Right Foot - Established Patient, Nail Care [facility] Clinical Note 09-16-2020 Note Date & Type Note Facility 09-16-2020 Note Patient Outreach ([facility]) VANESSA KLINE ([id number]) 1945 F Date Time Provider Department 09/16/20 [...] Fully Assessed Order(s):SARS-COVID VACCINE 1ST DOSE APPT [[id number]] Order #: [id number] FUTURE Prescriptions as of 09/16/2020 Sig: OMEPRAZOLE [...] Encounter Status:Closed by EPIC, PRODUSER on 09/19/20 [facility] Summary Purpose Family History No Family [...] BE BASED ON THE PRIMARY CLINICAL RECORDS. [facility]. provides no warranty or guarantee of the accuracy or completeness of information in this document.
[2023-08-13] MEDS: Enoxaparin 100 MG/ML Syringe SC (21:51)
[2023-08-13] MEDS: Clindamycin 600 MG/50 ML BAG 100 MG IV (21:52)
[2023-08-13 22:11] LABS: D-Dimer Quantitative (DVT/PE) 1.47 FEU/ug/m (0.27-0.49)
[2023-08-13 22:15] VITALS: BP 107/66; PULSE 80; RESP 19
--- NOTE | 2023-08-13 22:39 | VDLE_ITS ---
Reason For Study: Bilateral leg swelling RIGHT LEFT GSV is normal. GSV is normal. CFV is compressible, spontaneous, phasic, CFV is compressible, spontaneous, phasic, competent and demonstrates normal competent, and demonstrates normal augmentation. augmentation. FV is compressible, spontaneous, phasic, FV is compressible, spontaneous, phasic, competent and demonstrates normal competent and demonstrates normal augmentation. augmentation. POP V is compressible, spontaneous, phasic, POP V is compressible, spontaneous, phasic, competent and demonstrates normal competent and demonstrates normal augmentation. augmentation. T/P Trunk is compressible. T/P Trunk is compressible. PTV is compressible. PTV is compressible. RT PerV is compressible. LT PerV is compressible. Procedure This is a venous duplex using B-mode, color flow and spectral Doppler. Exam performed portable in patient room. A preliminary report was called and/or faxed to [facility]. VL/Venous Duplex US - Amarjit Extrem Interpretation Summary Deep veins of the bilateral lower extremities are patent and compressible segme ntally. There is no evidence of bilateral lower extremity deep vein thrombosis. The bilateral great saphenous veins appear patent and compressible segmentally. Ordering Physician: Felipe Drew Referring Physician: Katiana Rayo M.D. Performed By: Mimi Chang RVT
[2023-08-13 23:47] VITALS: BP 106/64; PULSE 81; RESP 16; TEMP 36.7; O2SAT 97
[2023-08-13 23:52] VITALS: BMI 38.8
[2023-08-14] MEDS: KCL 20MEQ in 0.9% NS 20 MEQ/1,000 ML IV.SOLN. 125 MEQ IV (00:27)
[2023-08-14] MEDS: Ciprofloxacin 200 MG/100 ML BAG 100 MG IV ×3 (00:29→22:02)
--- OUTSIDE RECORDS SUMMARY | 2023-08-14 01:53 | XMS RPT_ITS | CCD ---
Author Name Unknown Address [address] [place] [address] Organization [facility] Results Test Name Value Interpretation Reference Range Facil ity Progress note 11-14-2020 Note Date & Type Note Facility 11-14-2020 Note HNO ID: [id number] Author: Eric Sol Service: ? Author Type: [...] Objective: [facility]: DP and PT pulses are [...] RTC in 3-4 months. Eric Sol DPM [facility] Progress note 11-14-2020 Note Date & Type Note Facility 11-14-2020 Note HNO ID: [id number] Author: Paty Harmon RN Service: ? Author Type: ? Type: Progress Notes Filed: 11/14/2020 2:54 PM Note Text: AMB ROOMING INTAKE FLOWSHEET DATA Risk Screening Do you have concerns about personal safety or safety in the home?: No Patient presents with: Left Foot - Established Patient, Nail Care Right Foot - Established Patient, Nail Care [facility] Clinical Note 09-16-2020 Note Date & Type Note Facility 09-16-2020 Note Patient Outreach ([facility]) VANESSA KLINE ([id number]) 1945 F Date Time Provider Department 09/16/20 [...] Fully Assessed Order(s):SARS-COVID VACCINE 1ST DOSE APPT [[id number]] Order #: [id number] FUTURE Prescriptions as of 09/16/2020 Sig: OMEPRAZOLE [...] Encounter Status:Closed by EPIC, PRODUSER on 09/19/20 [facility] Summary Purpose Family History No Family [...] BE BASED ON THE PRIMARY CLINICAL RECORDS. [facility]. provides no warranty or guarantee of the accuracy or completeness of information in this document.
--- OUTSIDE RECORDS SUMMARY | 2023-08-14 01:54 | XMS RPT_ITS | CCD ---
Author Name Unknown Address [address] [place] [address] Organization [facility] Results Test Name Value Interpretation Reference Range Facil ity Progress note 11-14-2020 Note Date & Type Note Facility 11-14-2020 Note HNO ID: [id number] Author: Eric Sol Service: ? Author Type: [...] Objective: [facility]: DP and PT pulses are decreased [...] RTC in 3-4 months. Eric Sol DPM [facility] Progress note 11-14-2020 Note Date & Type Note Facility 11-14-2020 Note HNO ID: [id number] Author: Paty Harmon RN Service: ? Author Type: ? Type: Progress Notes Filed: 11/14/2020 2:54 PM Note Text: AMB ROOMING INTAKE FLOWSHEET DATA Risk Screening Do you have concerns about personal safety or safety in the home?: No Patient presents with: Left Foot - Established Patient, Nail Care Right Foot - Established Patient, Nail Care [facility] Clinical Note 09-16-2020 Note Date & Type Note Facility 09-16-2020 Note Patient Outreach ([facility]) VANESSA KLINE ([id number]) 1945 F Date Time Provider Department 09/16/20 [...] Fully Assessed Order(s):SARS-COVID VACCINE 1ST DOSE APPT [[id number]] Order #: [id number] FUTURE Prescriptions as of 09/16/2020 Sig: OMEPRAZOLE [...] Encounter Status:Closed by EPIC, PRODUSER on 09/19/20 [facility] Summary Purpose Family History No Family [...] BE BASED ON THE PRIMARY CLINICAL RECORDS. [facility]. provides no warranty or guarantee of the accuracy or completeness of information in this document.
[2023-08-14] MEDS: Vancomycin HCl 2,000 MG in 0.9% Normal Saline (500mL Bag) 500 ML 250 MG IV (02:00)
--- NOTE | 2023-08-14 02:06 | PCM.RX.CS ---
Consult Antibiotic Management Pharmacy has been consulted to manage selected antibiotic: Vancomycin Type of Intervention Type of Consult: New start Suspected Infection Suspected Infection: Skin/Soft tissue Labs Labs: Sodium 135 mmol/L (136-145) L 08/13/23 19:49 Potassium 3.0 mmol/L (3.5-5.1) L 08/13/23 19:49 Chloride 100 mmol/L (98-107) 08/13/23 19:49 Carbon Dioxide 28.0 mmol/L (21.0-32.0) 08/13/23 19:49 Anion Gap 7 (5-15) 08/13/23 19:49 BUN 13 mg/dL (7-18) 08/13/23 19:49 Creatinine 0.99 mg/dL (0.55-1.02) 08/13/23 19:49 Est GFR (MDRD) Af Amer 70 mL/min (>60) 08/13/23 19:49 Est GFR (MDRD) Non-Af 58 mL/min (>60) L 08/13/23 19:49 BUN/Creatinine Ratio 13.1 RATIO (10-20) 08/13/23 19:49 Glucose 127 mg/dL (74-106) H 08/13/23 19:49 Dosing Weight Weight used for dosin.2 kg Estimated Creatinine Clearance Estimated Creatinine Clearance: 56 Goal Trough Goal Trough: 15-20 mcg/mL Pharmacy Plan for Drug Dosing Pharmacy Plan for Drug Dosing: Pharmacy Service will continue to monitor and adjust dosing as required. Follow-Up Labs Follow-Up Labs: Trough: Vancomycin Date/Time Labs Ordered Labs to be done on [date and time ordered]: 08/15/23 @8486
[2023-08-14] MEDS: HYDROcodone Bitartrate/Apap 5/325 Tablet PO ×2 (02:17→11:33)
[2023-08-14 05:34] VITALS: BMI 38.8
[2023-08-14 05:58] VITALS: BP 99/56; PULSE 73; RESP 16; TEMP 36.8; O2SAT 97
[2023-08-14 06:15] LABS: Absolute Lymphocyte Count 2.35 X10^3/uL (0.83-4.51); Absolute Neutrophil Count 7.8 X10^3/uL (2.0-7.7); Basophil# 0.03 X10^3/uL; Basophil% 0.3 % (0-1); Eosinophil# 0.09 X10^3/uL; Eosinophils% 0.8 % (0-5); Hematocrit 34.1 % (37-47); Hemoglobin 9.8 g/dL (12.0-15.0); Lymphocyte # 2.35 X10^3/ul (0.83-4.51); Lymphocyte % 19.8 % (19-41); Mean Corp Hgb Conc 28.7 g/dL (32-36); Mean Corpuscular Hgb 22.6 pg (27.0-32.0); Mean Corpuscular Volume 78.8 fL (81-99); Mean Platelet Vol. 9.2 fl (6.2-12.0); Monocyte# 1.51 X10^3/uL; Monocyte% 12.8 % (0-10); NRBC Flagged by Analyzer 0 % (0-5); Neutrophil # 7.79 X10^3/uL (2.7-7.7); Neutrophil % 65.7 % (47-70); POSITIVE DIFFERENTIAL YES; Platelet Count 272 K/mm3 (150-450); RBC Distribution Width CV 18.4 % (11.6-14.6); Red Blood Count 4.33 M/mm3 (4.2-5.4); White Blood Count 11.8 K/mm3 (4.4-11.0)
[2023-08-14 06:23] LABS: Differential Indicated SCAN CRITERIA MET
[2023-08-14 06:56] LABS: ALB/GLOB Ratio 0.7 RATIO (0.9-2.4); AST(SGOT) 14 U/L (15-37); Alanine Aminotransfer ALT/SGPT 15 U/L (13-56); Albumin, Serum 2.8 g/dL (3.2-5.0); Alkaline Phosphatase 60 U/L (45-117); Anion Gap 5 (5-15); BUN 13 mg/dL (7-18); BUN/Creat Ratio 15.6 RATIO (10-20); Calcium,Total 8.4 mg/dL (8.5-10.1); Chloride 104 mmol/L (98-107); Creatinine, Serum 0.83 mg/dL (0.55-1.02); EST Glomerular Filtration Rate 71 mL/min (>60); Est Glom Filt Rate - Afr Amer 85 mL/min (>60); Estimated Creatinine Clearance 65.35 ml/min; Globulin 3.8 g/dL (2.2-4.2); Glucose 95 mg/dL (74-106); Magnesium 2.2 mg/dL (1.6-2.6); Phosphorus 3.2 mg/dL (2.5-4.9); Potassium 3.1 mmol/L (3.5-5.1); Protein, Total 6.6 g/dL (6.4-8.2); Sodium Level 137 mmol/L (136-145)
[2023-08-14 07:08] LABS: Differential Comment SCANNED
--- NOTE | 2023-08-14 07:21 | PN.HOSP_ITS ---
Reason for Visit Reason for Visit: Diagnoses Hypokalemia (08/13/23) Cellulitis of right lower limb (08/13/23) Acute cystitis without hematuria (08/13/23) Difficulty in walking, not elsewhere classified (08/13/23) Weakness (08/13/23) Subjective Subjective Still having some pain and swelling in leg but is improving, open to placement if it is recommended by therapy Objective Data Objective Data Vital Signs: Vital Signs Temp Pulse Resp BP Pulse Ox O2 Del Method 98.3 F 73 16 99/56 L 97 Room Air 08/14/23 05:58 08/14/23 05:58 08/14/23 05:58 08/14/23 05:58 08/14/23 05:58 08/14/23 05:58 Oxygen Delivery Method Room Air Weight: 103.2 kg Body Mass Index (BMI) 38.8 Intake & Output: Intake and Output for Last 24 Hours 08/12/23 08/13/23 08/14/23 23:59 23:59 23:59 Intake Total 50 / 50 1040 / 1040 Output Total 300 / 300 Balance 50 / 50 740 / 740 Lab / Micro Data 08/14/23 05:20 08/14/23 05:20 Labs: Laboratory Results - last 24 hr 08/13/23 19:49: WBC 15.2 H, RBC 4.91, Hgb 11.2 L, Hct 38.6, MCV 78.6 L, MCH 22.8 L, MCHC 29.0 L, RDW Std Deviation 52.9 H, RDW Coeff of Karon 18.5 H, Plt Count 335, MPV 8.7, Immature Gran % (Auto) 0.600, Neut % (Auto) 77.3 H, Lymph % (Auto) 9.8 L, Richardson % (Auto) 11.6 H, Eos % (Auto) 0.4, Baso % (Auto) 0.3, Absolute Neuts (auto) 11.8 H, Absolute Lymphs (auto) 1.50, Nucleated RBC % 0, Differential Comment SCANNED, Diff Path Review November, Sodium 135 L, Potassium 3.0 L, Chloride 100, Carbon Dioxide 28.0, Anion Gap 7, BUN 13, Creatinine 0.99, Estim Creat Clear Calc 55.85, Est GFR (MDRD) Af Amer 70, Est GFR (MDRD) Non-Af 58 L, BUN/Creatinine Ratio 13.1, Glucose 127 H, Uric Acid 5.8, Calcium 9.7, B- Natriuretic Peptide 90.4 08/13/23 20:41: Urine Color Tram, Urine Clarity Sl. Cloudy, Urine pH 5.0, Ur Specific [place] 1.020, Urine Protein 30 H, Urine Glucose (UA) Normal, Urine Ketones 5 H, Urine Occult Blood 50 H, Urine Nitrite Negative, Urine Bilirubin 3 H, Urine Urobilinogen 1 H, Ur Leukocyte Esterase 100 H, Urine RBC 0-5 SEEN, Urine WBC 5-10 SEEN, Ur Squamous Epith Cells 0-5 SEEN, Urine Bacteria RARE, Urine Mucus 1+ 08/13/23 21:50: D-Dimer Quant (PE/DVT) 1.47 H* 08/14/23 05:20: WBC 11.8 H, RBC 4.33, Hgb 9.8 L, Hct 34.1 L, MCV 78.8 L, MCH 22.6 L, MCHC 28.7 L, RDW Std Deviation 53.0 H, RDW Coeff of Karon 18.4 H, Plt Count 272, MPV 9.2, Immature Gran % (Auto) 0.600, Neut % (Auto) 65.7, Lymph % (Auto) 19.8, Richardson % (Auto) 12.8 H, Eos % (Auto) 0.8, Baso % (Auto) 0.3, Absolute Neuts (auto) 7.8 H, Absolute Lymphs (auto) 2.35, Nucleated RBC % 0, Differential Comment SCANNED, Diff Path Review November, Sodium 137, Potassium 3.1 L, Chloride 104, Carbon Dioxide 28.0, Anion Gap 5, BUN 13, Creatinine 0.83, Estim Creat Clear Calc 65.35, Est GFR (MDRD) Af Amer 85, Est GFR (MDRD) Non-Af 71, BUN/Creatinine Ratio 15.6, Glucose 95, Calcium 8.4 L, Phosphorus 3.2, Magnesium 2.2, Total Bilirubin 0.80, AST 14 L, ALT 15, Alkaline Phosphatase 60, Total Protein 6.6, Albumin 2.8 L, Globulin 3.8, Albumin/Globulin Ratio 0.7 L, TSH 3.30 Radiography Diagnostic Testing: Radiology Impression Tibia/Fibula X-Ray 08/13/23 21:18 IMPRESSION: 1. No evidence fracture, malalignment or focal bony or joint space abnormality. 2. Total knee arthroplasty, no malalignment or hardware failure. Electronically Signed: Tee Oneill MD at 21:56 EST , Tibia/Fibula X-Ray 08/13/23 21:21 IMPRESSION: 1. No evidence fracture, malalignment or focal bony or joint space abnormality. 2. Total knee arthroplasty with normal alignment. No evidence of hardware failure. Electronically Signed: Tee Oneill MD at 21:55 EST , Foot X-Ray 08/13/23 21:22 IMPRESSION: 1. No evidence of fracture or dislocation. 2. Moderate degenerative change involving the midfoot as detailed. No acute destructive bony process. 3. Dorsal soft tissue swelling is present Electronically Signed: Tee Oneill MD at 21:55 EST , Foot X-Ray 08/13/23 21:35 IMPRESSION: 1. No evidence of fractures dislocation or malalignment. 2. Moderate degenerative change involving the midfoot and forefoot as detailed. Electronically Signed: Tee Oneill MD at 21:53 EST , Physical Exam Narrative General: Alert, oriented, no apparent distress HEENT: Atraumatic, normocephalic Eyes: Anicteric, normal conjunctiva, extraocular movements grossly intact Neck: Supple Respiratory: Clear to auscultation bilaterally, normal respiratory effort Cardiovascular: Regular rate and rhythm GI: Soft, nontender, nondistended Extremities: Slight edema of right lower extremity compared to left Musculoskeletal: Moving all extremities Neuro: No overt focal neurological deficits Skin: No rashes appreciated Psych: Cooperative Assessment & Plan Assessment/Plan (1) Cellulitis: QUALIFIERS: Laterality: right Site of cellulitis: extremity Site of cellulitis of extremity: lower extremity Qualified Code(s): L03.115 - Cellulitis of right lower limb (2) Acute cystitis without hematuria: (3) Hypokalemia: (4) Generalized weakness: (5) Ambulatory dysfunction: PLAN: Plan #Acute cellulitis of the right foot with leukocytosis of 15.2 present on admission - Admit to general medical floor on contact precautions. Stop IV clindamycin began in the ER in favor of IV vancomycin along with probiotic, vitamin D3, vitamin C and zinc. Give Tylenol as needed pain or fever. Finally, d dimer is pending at this time with patient empirically treated with full-dose Lovenox along with RLE doppler to evaluate for possible DVT in the AM. -08/14: Tib-fib x-ray with no acute process and foot x-ray with moderate degen erative changes and midfoot and dorsal soft tissue swelling, D-dimer 1.47, given 1 full dose of Lovenox pending right lower extremity Doppler however likely will not be done until 08/15 and given symptoms and elevated D-dimer will continue empiric Lovenox pending DVT evaluation, also on Vanco and Cipro #Acute cystitis; without hematuria complicating #1 - Cover with IV Cipro and await culture and sensitivity data. -08/14: Urine culture pending, on Cipro and vanc #Iron deficiency anemia - Stable with a hemoglobin of 11.2 g/dL present on admission. -08/14: Hemoglobin 9.8 today but all cell lines dropped, no signs or symptoms of bleeding, will continue to monitor, may need to hold empiric anticoagulation if any evidence of bleeding or any further decrease #Hypokalemia of 3 mmol/L present on admission - Give supplemental KCl and then recheck BMP in the AM to ensure correction. -08/14: Will give further replacement, BP also on the low end so we will stop hydrochlorothiazide #Generalized weakness with ambulatory dysfunction arising from #1 - #3 in the setting of known frequent falls previously and osteoarthritis; with chronic back pain typically treated with monthly steroid injections from pain management (but she did not receive an injection in June 2023) - PT/OT and Case Management to consult and treat on-rounds in the AM as this patient with likely require some form of subacute rehabilitation with help appreciated in advance. -08/14: Awaiting PT/OT # Essential hypertension - Continue home regimen as previous plus give as needed IV hydralazine for systolic blood pressure greater than 160 mmHg. -08/14: Patient with BP actually on the low side, holding hydrochlorothiazide Nor vasc, decreased metoprolol dosing #Hyperlipidemia - Resume statin. #Migraine headaches; on as needed sumatriptan - Stable with no complaints of headache at this time. Continue as needed sumatriptan as previous. #Degenerative disc disease - Stable. #RLS - Continue Requip as previous. #Neuropathy - Stable. #Irritable bowel syndrome - Stable. #Overactive bladder - Stable. #History of pneumonia Noted. #GERD - Continue PPI. #DVT prophylaxis - Patient on full-dose Lovenox for #1 until DVT can be ruled out on LE doppler. Time spent in the patient's overall evaluation,decision-making process, review of diagnostic data, adjustment of management, discussion with other providers, n ursing nursing and ancillary staff involved in patient's care documentation, 38 minutes Charges/Coding Visit Charges Inpatient E&M: 40771 Subs Hosp L2
[2023-08-14] MEDS: Potassium Chloride Oral Tablet 20 MEQ PO ×2 (08:11)
[2023-08-14] MEDS: Cholecalciferol (VIT D3) 25 MCG TABLET (1,000 UNITS) 100 MCG PO (08:12)
[2023-08-14] MEDS: Multivitamins,Ther W-Minerals Tablet 1 TABLET PO (08:13)
[2023-08-14] MEDS: Pantoprazole Sodium 40 MG Tablet PO (08:13)
[2023-08-14] MEDS: Sertraline 100 MG Tablet 200 MG PO (08:13)
[2023-08-14] MEDS: Ensure Plus High Protein 120 ML LIQUID PO ×3 (08:15→16:55)
[2023-08-14] MEDS: Gabapentin 100 MG Capsule PO ×2 (08:18→16:55)
[2023-08-14 11:00] VITALS: BP 121/76; PULSE 80; RESP 16; TEMP 36.8; O2SAT 95
[2023-08-14] MEDS: 0.9% Saline Lock 10 ML Syringe IV ×2 (11:32→22:00)
[2023-08-14 11:36] VITALS: PULSE 80
[2023-08-14] MEDS: Metoprolol(XL)Succ 25 MG Tablet 12.5 MG PO ×2 (11:36→22:01)
--- NOTE | 2023-08-14 14:34 | PCA ---
patients friend brought in her updated power of energy attorney papers and living will. I copied them and put a copy in pts chart.
[2023-08-14] MEDS: Vancomycin IV 1,000 MG/200 ML BAG 200 MG IV (14:55)
[2023-08-14 16:20] VITALS: BP 110/47; PULSE 83; RESP 18; TEMP 36.8; O2SAT 95
[2023-08-14] MEDS: Enoxaparin 100 MG/ML Syringe SC (16:55)
[2023-08-14 20:26] VITALS: BP 128/64; PULSE 88; RESP 16; TEMP 36.8; O2SAT 97
[2023-08-14 22:01] VITALS: BP 128/64; PULSE 88
[2023-08-14] MEDS: Pramipexole Di-HCl 0.25 MG Tablet PO (22:01)
[2023-08-14] MEDS: Atorvastatin Calcium 20 MG Tablet PO (22:01)
[2023-08-15] VITALS (9 sets, daily range): BP systolic 119–139; BP diastolic 61–83; PULSE 80–94; RESP 16–22; TEMP 36.8–37.6; O2SAT 94–96; BMI 38.7
[2023-08-15] MEDS: Vancomycin IV 1,000 MG/200 ML BAG 200 MG IV ×2 (02:32→14:35)
[2023-08-15] MEDS: Enoxaparin 100 MG/ML Syringe SC (05:48)
[2023-08-15 05:52] LABS: Absolute Neutrophil Count 7.4 X10^3/uL (2.0-7.7); Basophil# 0.04 X10^3/uL; Basophil% 0.4 % (0-1); Eosinophil# 0.19 X10^3/uL; Eosinophils% 1.8 % (0-5); Hematocrit 35.4 % (37-47); Hemoglobin 10.4 g/dL (12.0-15.0); Lymphocyte % 17.6 % (19-41); Mean Corp Hgb Conc 29.4 g/dL (32-36); Mean Corpuscular Hgb 22.8 pg (27.0-32.0); Mean Corpuscular Volume 77.5 fL (81-99); Mean Platelet Vol. 9.2 fl (6.2-12.0); Monocyte# 1.17 X10^3/uL; Monocyte% 10.9 % (0-10); NRBC Flagged by Analyzer 0 % (0-5); Neutrophil # 7.36 X10^3/uL (2.7-7.7); Neutrophil % 68.3 % (47-70); Platelet Count 291 K/mm3 (150-450); RBC Distribution Width CV 18.6 % (11.6-14.6); RBC Distribution Width SD 51.7 fl (35.1-43.9); Red Blood Count 4.57 M/mm3 (4.2-5.4); White Blood Count 10.8 K/mm3 (4.4-11.0)
[2023-08-15 06:53] LABS: Anion Gap 5 (5-15); BUN 17 mg/dL (7-18); Calcium,Total 8.9 mg/dL (8.5-10.1); Chloride 106 mmol/L (98-107); Creatinine, Serum 0.81 mg/dL (0.55-1.02); EST Glomerular Filtration Rate 73 mL/min (>60); Est Glom Filt Rate - Afr Amer 88 mL/min (>60); Estimated Creatinine Clearance 66.89 ml/min; Glucose 106 mg/dL (74-106); Potassium 3.5 mmol/L (3.5-5.1); Sodium Level 138 mmol/L (136-145)
[2023-08-15] MEDS: Metoprolol(XL)Succ 25 MG Tablet 12.5 MG PO ×2 (09:20→20:44)
[2023-08-15] MEDS: Cholecalciferol (VIT D3) 25 MCG TABLET (1,000 UNITS) 100 MCG PO (09:21)
[2023-08-15] MEDS: Multivitamins,Ther W-Minerals Tablet 1 TABLET PO (09:21)
[2023-08-15] MEDS: Sertraline 100 MG Tablet 200 MG PO (09:22)
[2023-08-15] MEDS: Pantoprazole Sodium 40 MG Tablet PO (09:22)
[2023-08-15] MEDS: Potassium Chloride Oral Tablet 20 MEQ PO (09:23)
[2023-08-15] MEDS: Gabapentin 100 MG Capsule PO ×2 (09:28→16:23)
[2023-08-15] MEDS: 0.9% Saline Lock 10 ML Syringe IV ×2 (09:29→14:35)
[2023-08-15] MEDS: Ciprofloxacin 200 MG/100 ML BAG 100 MG IV ×2 (09:29→20:44)
[2023-08-15] MEDS: Ensure Plus High Protein 120 ML LIQUID PO ×3 (09:30→16:23)
--- NOTE | 2023-08-15 10:45 | CASEMGMT ---
Social Work SW called [facility], pt's telephonic case manager is Lucia Nathan, , [phone]. SW updated her on admission, she asked for discharge instructions to be faxed to her when pt is discharged: [phone]. SW will continue to follow along w/CM. EVANS Burr
--- NOTE | 2023-08-15 10:49 | CASEMGMT ---
[facility] Assessment Face to Face with patient for initial transition planning/care coordination assessment. ANA MARÍA VICTORIA introduced self and role at [facility], pt voices understanding. Pt is A&Ox4 and is resting comfortably in bed and is calm. Care providers, pharmacy, and demographics verified. Admitting dx: RLE Cellulitis and acute cystitis LACE Strata: 3 PCP:Girma Specialists: Rowdy (Pain) Preferred Pharmacy: [facility] Insurance: [place] [facility] Dual Advantage Plan, [facility] Prescription Benefit: Yes LNOK: Dulce Maria Schwab (POA/ Daughter), Susu Clark (Friend) Living Arrangements: Pt lives alone in a single story apartment with a flat entrance. ADLs/IADLs:Ind with ADLs. Needs assistance with most IADLs. Pt states she manages her own medications and states she can perform simple tasks like making soup. Transportation: Pt does not drive. Pt states she uses the hospital van and that her friend Jeanette drives her. DME: Pt has 2 rollators at home and uses daily. Pt has a walk-in shower with a chair and grab bars. HHC/SNF: Denies skilled HHC and SNF. Pt states she is active with [employer] and could not recall her CM name. GLENN Newberry updated and called [employer] and confirmed her CM name is Lucia Nathan. Pt has a cytology supervisor aide come on Tuesdays for 1.5 hours and for 3 hours. Pt states that she goes to [facility] via their van on Wednesdays. Pt states that her friend Susu helps her out as needs on other days of the week. Pt?s goal: Return home Plan: Pt was unsteady and did poorly with PT yesterday. Pt was only able to ambulate 2 ft. Pt states that she would be agreeable to HHC if needed. Will monitor progress with PT/ OT and set up HHC if warranted. Javi Maier RN, CM
[2023-08-15 13:54] LABS: Vancomycin, Trough Level 19.4 ug/mL (5.0-15.0)
--- NOTE | 2023-08-15 14:13 | PCM.RX.CS ---
Consult Antibiotic Management Pharmacy has been consulted to manage selected antibiotic: Vancomycin Type of Intervention Type of Consult: Follow-up Labs Labs: Sodium 138 mmol/L (136-145) 08/15/23 05:25 Potassium 3.5 mmol/L (3.5-5.1) 08/15/23 05:25 Chloride 106 mmol/L (98-107) 08/15/23 05:25 Carbon Dioxide 27.0 mmol/L (21.0-32.0) 08/15/23 05:25 Anion Gap 5 (5-15) 08/15/23 05:25 BUN 17 mg/dL (7-18) 08/15/23 05:25 Creatinine 0.81 mg/dL (0.55-1.02) 08/15/23 05:25 Est GFR (MDRD) Af Amer 88 mL/min (>60) 08/15/23 05:25 Est GFR (MDRD) Non-Af 73 mL/min (>60) 08/15/23 05:25 BUN/Creatinine Ratio 21.0 RATIO (10-20) H 08/15/23 05:25 Glucose 106 mg/dL (74-106) 08/15/23 05:25 Vancomycin Trough 19.4 ug/mL (5.0-15.0) H 08/15/23 13:16 Microbiology Microbiology: Microbiology 08/13/23 20:41 Urine Catheter - Catheter Urine Culture - Preliminary Gram positive michael Goal Trough Goal Trough: 15-20 mcg/mL Pharmacy Plan for Drug Dosing Pharmacy Plan for Drug Dosing: VANCOMYCIN LEVEL RECEIVED Current Vancomycin Dose: 1000mg IV Q12hr Number of Doses Received: 3 (loading dose + 2 scheduled) Vancomycin Level: 19.4 Hours Since Last Dose: 10.75hr Renal Function: 0.81 Renal Function Trend: stable Lab/Micro: Cx pending, NGTD Vancomycin Plan/Comments: Patient had a trough drawn which resulted in a value of 19.4 (goal 15-20). Patient is within therapeutic range. Will continue current dose of vancomycin and recheck a trough in 48hrs to re-evaluate dosing at that time. Pending Level: 08/17/23 @1330 Pharmacy Service will continue to monitor and adjust dosing as required.
[2023-08-15 14:26] LABS: Pathologist Review Reviewed
[2023-08-15 14:27] LABS: Pathologist Review Reviewed
[2023-08-15] MEDS: Ondansetron 4 MG/2 ML Vial IV (14:39)
--- NOTE | 2023-08-15 14:58 | PN.HOSP_ITS ---
Reason for Visit Reason for Visit: Diagnoses Hypokalemia (08/13/23) Cellulitis of right lower limb (08/13/23) Acute cystitis without hematuria (08/13/23) Difficulty in walking, not elsewhere classified (08/13/23) Weakness (08/13/23) Objective Data Objective Data Vital Signs: Vital Signs Temp Pulse Resp BP Pulse Ox O2 Del Method 98.8 F 90 22 H 128/81 H 94 Room Air 08/15/23 14:43 08/15/23 14:48 08/15/23 14:43 08/15/23 14:43 08/15/23 14:43 08/15/23 14:48 Oxygen Delivery Method Room Air Weight: 227 lb 1.218 oz Body Mass Index (BMI) 38.7 Intake & Output: Intake and Output for Last 24 Hours 08/13/23 08/14/23 08/15/23 23:59 23:59 23:59 Intake Total 50 / 50 2623.75 / 2923.75 900 / 900 Output Total 900 / 1200 1350 / 1350 Balance 50 / 50 1723.75 / 1723.75 -450 / -450 Lab / Micro Data 08/15/23 05:25 08/15/23 05:25 Labs: Laboratory Results - last 24 hr 08/13/23 19:49: Diff Path Review Reviewed 08/14/23 05:20: Diff Path Review Reviewed 08/15/23 05:25: WBC 10.8, RBC 4.57, Hgb 10.4 L, Hct 35.4 L, MCV 77.5 L, MCH 22.8 L, MCHC 29.4 L, RDW Std Deviation 51.7 H, RDW Coeff of Karon 18.6 H, Plt Count 291, MPV 9.2, Immature Gran % (Auto) 1.000 H, Neut % (Auto) 68.3, Lymph % (Auto) 17.6 L, [place] % (Auto) 10.9 H, Eos % (Auto) 1.8, Baso % (Auto) 0.4, Absolute Neuts (auto) 7.4, Absolute Lymphs (auto) 1.90, Nucleated RBC % 0, Sodium 138, Potassium 3.5, Chloride 106, Carbon Dioxide 27.0, Anion Gap 5, BUN 17, Creatinine 0.81, Estim Creat Clear Calc 66.89, Est GFR (MDRD) Af Amer 88, Est GFR (MDRD) Non-Af 73, BUN/Creatinine Ratio 21.0 H, Glucose 106, Calcium 8.9 08/15/23 13:16: Vancomycin Trough 19.4 H Micro: Microbiology 08/13/23 20:41 Urine Catheter - Catheter Urine Culture - Preliminary Gram positive michael Physical Exam Narrative Seen and examined. Patient admitted with right lower extremity swelling and edema. On antibiotic. Venous duplex negative for DVT. D-dimer was high. No fever. Physical exam General: Alert, Oriented x3, Cooperative HEENT: Atraumatic, PERRLA, EOMI, Normocephalic Oral: No Gingival or Mucosal Lesions/ Ulcerations Neck: Supple, No JVD, Negative Carotid Bruits Lungs: Air entry diminished in bilateral lung bases. No crepitation/rhonchi Cardiovascular: Regular rate, Regular Rhythm, Normal S1, Normal S2, No murmurs Abdomen: Bowel Sounds Present, Soft, Non Tender, Non-Distended : No renal angle tenderness. No suprapubic tenderness. Extremities: No edema, Capillary Refill Less than 3 Seconds Skin: No rashes, No breakdown Musculoskeletal: Bilateral TKR. Right lower leg mildly swollen, warm to touch and tender. Neurological: Cranial nerves II-XII grossly intact, DTR 2+/4. No acute focal neurological deficit. Psych/Mental Status: Normal Affect, Appropriate. Assessment & Plan Assessment/Plan (1) Cellulitis: QUALIFIERS: Site of cellulitis: extremity Site of cellulitis of extremity: lower extremity Laterality: right Qualified Code(s): L03.115 - Cellulitis of right lower limb (2) Acute cystitis without hematuria: (3) Hypokalemia: (4) Generalized weakness: (5) Ambulatory dysfunction: PLAN: Plan #Acute cellulitis of the right foot with leukocytosis of 15.2 present on admission - Admit to general medical floor on contact precautions. Stop IV clindamycin began in the ER in favor of IV vancomycin along with probiotic, vitamin D3, vitamin C and zinc. Give Tylenol as needed pain or fever. Finally, d dimer is pending at this time with patient empirically treated with full-dose Lovenox Tib-fib x-ray with no acute process and foot x-ray with moderate degenerative changes and midfoot and dorsal soft tissue swelling, D-dimer 1.47, given 1 full dose of Lovenox pending venous duplex on 08/15 and given symptoms and elevated D- dimer will continue empiric Lovenox pending DVT evaluation, also on Vanco and Cipro 08/15: Venous duplex negative for DVT. Lovenox therapeutic dose changed to prophylactic dose. # Mild hematuria 08/15: Urine culture shows gram-positive michael 25,000 -50,000 colonies possible commensal/colonization. UTI ruled out. # Mild chronic iron deficiency anemia 08/15 hemoglobin 10.4. No active signs of bleeding. #Hypokalemia of 3 mmol/L present on admission - Give supplemental KCl and then recheck BMP in the AM to ensure correction. 08/15: Potassium replaced. #Generalized weakness with ambulatory dysfunction arising from #1 - #3 in the setting of known frequent falls previously and osteoarthritis; with chronic back pain typically treated with monthly steroid injections from pain management (but she did not receive an injection in June 2023) - PT/OT and Case Management to consult and treat on-rounds in the AM as this patient with likely require some form of subacute rehabilitation with help appreciated in advance. -08/14: Awaiting PT/OT # Essential hypertension - Continue home regimen as previous plus give as needed IV hydralazine for systolic blood pressure greater than 160 mmHg. -08/14: Patient with BP actually on the low side, holding hydrochlorothiazide Norvasc, decreased metoprolol dosing #Hyperlipidemia - Resume statin. #Migraine headaches; on as needed sumatriptan - Stable with no complaints of headache at this time. Continue as needed sumatriptan as previous. #Degenerative disc disease - Stable. #RLS - Continue Requip as previous. #Neuropathy - Stable. #Irritable bowel syndrome - Stable. #Overactive bladder - Stable. #History of pneumonia Noted. #GERD - Continue PPI. #DVT prophylaxis -as mentioned above. Charges/Coding Visit Charges Inpatient E&M: 78064 Subs Hosp L2
[2023-08-15] MEDS: Acetaminophen 325 MG Tablet 650 MG PO ×2 (14:59→20:59)
[2023-08-15] MEDS: Potassium Chloride Oral Tablet 20 MEQ 40 MEQ PO (16:20)
[2023-08-15] MEDS: Pramipexole Di-HCl 0.25 MG Tablet PO (20:44)
[2023-08-15] MEDS: Atorvastatin Calcium 20 MG Tablet PO (20:44)
[2023-08-16] VITALS (7 sets, daily range): BP systolic 109–127; BP diastolic 56–66; PULSE 80–101; RESP 16–18; TEMP 36.5–36.9; O2SAT 94–96; BMI 31.4
[2023-08-16] MEDS: Vancomycin IV 1,000 MG/200 ML BAG 200 MG IV (02:57)
[2023-08-16 07:45] LABS: Absolute Lymphocyte Count 1.78 X10^3/uL (0.83-4.51); Absolute Neutrophil Count 7.1 X10^3/uL (2.0-7.7); Basophil# 0.04 X10^3/uL; Basophil% 0.4 % (0-1); Eosinophils% 1.9 % (0-5); Hematocrit 34.8 % (37-47); Hemoglobin 10.2 g/dL (12.0-15.0); Lymphocyte # 1.78 X10^3/ul (0.83-4.51); Lymphocyte % 17.2 % (19-41); Mean Corp Hgb Conc 29.3 g/dL (32-36); Mean Corpuscular Hgb 22.8 pg (27.0-32.0); Mean Corpuscular Volume 77.9 fL (81-99); Mean Platelet Vol. 9.1 fl (6.2-12.0); Monocyte# 1.19 X10^3/uL; Monocyte% 11.5 % (0-10); NRBC Flagged by Analyzer 0 % (0-5); Neutrophil # 7.05 X10^3/uL (2.7-7.7); Neutrophil % 68.3 % (47-70); Platelet Count 313 K/mm3 (150-450); RBC Distribution Width CV 18.5 % (11.6-14.6); RBC Distribution Width SD 51.4 fl (35.1-43.9); Red Blood Count 4.47 M/mm3 (4.2-5.4); White Blood Count 10.3 K/mm3 (4.4-11.0)
[2023-08-16] MEDS: Gabapentin 100 MG Capsule PO (07:47)
[2023-08-16] MEDS: Multivitamins,Ther W-Minerals Tablet 1 TABLET PO (07:47)
[2023-08-16] MEDS: Ensure Plus High Protein 120 ML LIQUID PO (07:47)
[2023-08-16] MEDS: Potassium Chloride Oral Tablet 20 MEQ 40 MEQ PO (07:48)
[2023-08-16 08:04] LABS: Anion Gap 3 (5-15); BUN 17 mg/dL (7-18); Calcium,Total 9.4 mg/dL (8.5-10.1); Chloride 107 mmol/L (98-107); EST Glomerular Filtration Rate 57 mL/min (>60); Est Glom Filt Rate - Afr Amer 69 mL/min (>60); Glucose 104 mg/dL (74-106); Sodium Level 138 mmol/L (136-145)
[2023-08-16] MEDS: Metoprolol(XL)Succ 25 MG Tablet 12.5 MG PO (09:50)
[2023-08-16] MEDS: Sertraline 100 MG Tablet 200 MG PO (09:50)
[2023-08-16] MEDS: Cholecalciferol (VIT D3) 25 MCG TABLET (1,000 UNITS) 100 MCG PO (09:51)
[2023-08-16] MEDS: Enoxaparin 40 MG/0.4 ML Syringe SC (09:51)
[2023-08-16] MEDS: Ciprofloxacin 200 MG/100 ML BAG IV (09:52)
[2023-08-16] MEDS: 0.9% Saline Lock 10 ML Syringe IV (09:52)
[2023-08-16] MEDS: Pantoprazole Sodium 40 MG Tablet PO (10:06)
--- NOTE | 2023-08-16 10:36 | DCINST_ITS ---
Discharge Instructions Diet Discharge Diet: No restrictions Activity Discharge Activity: Return to Normal Activity Weight Bearing Status: Weight bearing as tolerated Dressing / Incision Call your doctor if you observe: Fever of 101 or Higher, Coldness, Increased Pain, Numbness or Tingling, Change in Color, Inability to urinate, Inability to have a bowel movement, Using more than 1 pad per hour, Shortness of breath, Dizziness, Fainting spells, Swelling in the ankles, Chest pain, Prolonged hiccupping, Increased palpitations (irregular heartbeat) and Calf discomfort Follow Up Care When: IN 2 WEEKS Test Results: Test results from this visit will be discussed in further detail at your follow- up appointment, if applicable. Discharge Plan Admission Admit Date/Time: 08/13/23 22:31 Attending Provider: Luis Miguel Freeman Primary Care Provider: Katiana Rayo Consulting Providers: Felipe Drew; Dilia Best Instructions Additional Instructions / Restrictions: Advised [id number] probiotic, lactobacillus tablets, 1 tablet twice daily for 7 days. Discharge Orders/Prescriptions Prescriptions: New ciprofloxacin HCl [Cipro] 500 mg tablet 500 mg PO BID 4 Days Qty: 8 0RF Continued cholecalciferol (vitamin D3) 50 mcg (2,000 unit) capsule 4,000 unit PO DAILY hydrocodone-acetaminophen 5-325 mg tablet 0.25 tab PO QHS multivitamin with minerals 1 EACH tablet 1 tab PO DAILY biotin 2,500 MCG capsule 1 cap PO DAILY gabapentin 100 mg capsule 100 mg PO BID acetaminophen 500 mg tablet 1,000 mg PO Q6H PRN PRN (Reason: Mild Pain (1-3/10)) Qty: 90 0RF sumatriptan succinate 25 mg tablet See Rx Instructions PO .COMPLEX Qty: 14 1RF Rx Instructions: take 1 tab at onset of headache; if no relief may repeat 1 tab after at least 2 hrs; max = 4 tabs/24 hr PO sumatriptan succinate [Imitrex STATdose Pen] 6 mg/0.5 mL pen injector 6 mg subcut Q1-4H PRN (Reason: migraine headache) Qty: 1 1RF Rx Instructions: do not exceed 2 doses in a 24 hour period (DME) side rails for bed 0 .Route .MEDSUPPLY Qty: 1 0RF Rx Instructions: As directed (DME) Ultra-Light Rollator Misc See Rx Instructions .Route Qty: 1 0RF Rx Instructions: As directed ropinirole 0.5 mg tablet 0.5 mg PO QHS Qty: 90 3RF Rx Instructions: administer 1-3 hours before bedtime sertraline 100 mg tablet 200 mg PO DAILY Qty: 180 3RF Rx Instructions: 200 mg PO daily; amlodipine 5 mg tablet 5 mg PO DAILY Qty: 90 3RF metoprolol succinate 50 mg tablet extended release 24 hr 50 mg PO BID Qty: 90 3RF potassium chloride 20 mEq tablet extended release 20 meq PO DAILY Qty: 90 3RF rosuvastatin 10 mg tablet 10 mg PO QHS Qty: 90 3RF omeprazole 40 mg capsule,delayed release(DR/EC) 40 mg PO DAILY Qty: 90 3RF hydrochlorothiazide 25 mg tablet 25 mg PO DAILY Qty: 90 3RF Referrals / Follow Up: Katiana Rayo MD [Primary Care Provider] - 08/22/23 1:30 pm Disposition Disposition (needs filled in before D/C Order can be placed): Home, Self Care
--- NOTE | 2023-08-16 11:06 | CASEMGMT ---
Pt did better with therapy today and states wanting to go home with [facility]. Pt was seen by [facility] in the past and said she was happy with their service and requests to be seen by them again. Pt denies wanting to see a list of other agencies. This RN CM calls [facility] to make a referral, voice message left.
--- NOTE | 2023-08-16 11:10 | CASEMGMT ---
Addendum entered by Amber Trent 08/16/23 15:03: DC paperwork faxed to [facility] per request Original Note: Social Work Received report that pt lives at home alone and only walked 3ft with PT yesterday. Unsure if pt can DC home and may need possible SNF stay. SW met with pt to discuss DC plans - home vs SNF. Pt prefers to return home and complete exercises at home. SW inquired about support at home. Pt stated she has a 'lady' come twice a week to assist with light housekeeping, but denied assistance with personal care. SW offered resources for [employer] list to hire, pt agreed. Pt stated she did well with therapy today and does feel she can go home. SW will follow up with therapy, but broached topic if therapy recommends SNF stay, if pt would be open. Pt agreed to consider. SW to follow up with pt with outcome from therapy and Dr recommendations. -- Dr rounded and reported pt is ready to DC. PT/OT reported to this worker pt walked 150ft today, needed minimal assistance, but does use lift chair at home. IDT agreeable for pt to DC home with [facility] PT/OT. SW transferred pt to ANA MARÍA VICTORIA to proceed with DC plans. provided ANA MARÍA VICTORIA with [employer] list to provide to pt. Amber Trent [employer]PL[employer] G[employer]ET SUPERVISOR
--- NOTE | 2023-08-16 11:35 | DS.PCM_ITS ---
Providers Date of Admission: 08/13/23 Date of Discharge: 08/16/23 Primary Care Physician: Dr. Katiana Rayo MD Reason For Visit: RIGHT LOWER EXTREMITY CELLULITI AND ACUTE CYSTITIS Diagnosis Discharge Diagnosis (1) Cellulitis: Status: Acute Code(s): L03.90 - Cellulitis, unspecified Qualifiers: Site of cellulitis: extremity Site of cellulitis of extremity: lower extremity Laterality: right Qualified Code(s): L03.115 - Cellulitis of right lower limb (2) Acute cystitis without hematuria: Status: Acute Code(s): N30.00 - Acute cystitis without hematuria (3) Hypokalemia: Status: Acute Code(s): E87.6 - Hypokalemia (4) Generalized weakness: Status: Acute Code(s): R53.1 - Weakness (5) Ambulatory dysfunction: Status: Acute Code(s): R26.2 - Difficulty in walking, not elsewhere classified Plan #Acute cellulitis of the right foot with leukocytosis of 15.2 present on admission - Admit to general medical floor on contact precautions. Stop IV clindamycin began in the ER in favor of IV vancomycin along with probiotic, vitamin D3, vitamin C and zinc. Give Tylenol as needed pain or fever. Finally, d dimer is pending at this time with patient empirically treated with full-dose Lovenox Tib-fib x-ray with no acute process and foot x-ray with moderate degenerative changes and midfoot and dorsal soft tissue swelling, D-dimer 1.47, given 1 full dose of Lovenox pending venous duplex on 08/15 and given symptoms and elevated D- dimer will continue empiric Lovenox pending DVT evaluation, also on Vanco and Cipro 08/15: Venous duplex negative for DVT. Lovenox therapeutic dose changed to prophylactic dose. 08/16: Cellulitis has resolved clinically on examination. No pain or tenderness or swelling. Patient had discharged on 4 more days of Cipro 500 mg twice daily to complete a total of 7 days of antibiotic. Prescription given. # Mild hematuria 08/15: Urine culture shows gram-positive michael 25,000 -50,000 colonies possible commensal/colonization. UTI ruled out. # Mild chronic iron deficiency anemia 08/15 hemoglobin 10.4. No active signs of bleeding. #Hypokalemia of 3 mmol/L present on admission - Give supplemental KCl and then recheck BMP in the AM to ensure correction. 08/15: Potassium replaced. 08/16: Hypokalemia resolved. #Generalized weakness with ambulatory dysfunction arising from #1 - #3 in the setting of known frequent falls previously and osteoarthritis; with chronic back pain typically treated with monthly steroid injections from pain management (but she did not receive an injection in June 2023) - PT/OT and Case Management to consult and treat on-rounds in the AM as this patient with likely require some form of subacute rehabilitation with help appreciated in advance. -08/14: Awaiting PT/OT # Essential hypertension - Continue home regimen as previous plus give as needed IV hydralazine for systolic blood pressure greater than 160 mmHg. -08/14: Patient with BP actually on the low side, holding hydrochlorothiazide Norvasc, decreased metoprolol dosing 08/16 blood pressure is in normal range. #Hyperlipidemia - Resume statin. #Migraine headaches; on as needed sumatriptan - Stable with no complaints of headache at this time. Continue as needed sumatriptan as previous. #Degenerative disc disease - Stable. #RLS - Continue Requip as previous. #Neuropathy - Stable. #Irritable bowel syndrome - Stable. #Overactive bladder - Stable. #History of pneumonia Noted. #GERD - Continue PPI. #DVT prophylaxis -as mentioned above. Discharge medication reconciliation done. Discharge follow-up instructions completed. Discharge process discussed with the patient and all questions were answered to patient's satisfaction. Follow with PCP in 1 to 2 weeks Total time spent, exact 35 minutes on discharge meds reconciliation, examination, coordination of care with nurses and ancillary staff, review of imaging and blood test and discussion with the patient on follow-up instructions. Medications at Discharge Home Medications acetaminophen 500 mg tablet 1,000 mg (2 x 500 mg) PO Q6H PRN PRN Mild Pain (- 10/01) #90 tabs 02/07/19 cholecalciferol (vitamin D3) 50 mcg (2,000 unit) capsule 4,000 unit PO DAILY SUPPLEMENT 09/10/19 biotin 2,500 mcg capsule 1 cap PO DAILY supplement 09/24/20 multivitamin with minerals 1 tab PO DAILY supplement 09/24/20 sumatriptan succinate 25 mg tablet See Rx Instructions PO .COMPLEX #14 tabs 06/14/22 sumatriptan succinate 6 mg/0.5 mL subcutaneous pen injector (Imitrex STATdose Pen) 6 mg (0.5 mL) subcut Q1-4H PRN migraine headache #1 mL 06/14/22 side rails for bed #1 ea 07/15/22 walker (Ultra-Light Rollator misc) #1 ea 08/23/22 ropinirole 0.5 mg tablet 0.5 mg PO QHS restless legs #90 tabs 11/12/22 sertraline 100 mg tablet 200 mg (2 x 100 mg) PO DAILY mood #180 tabs 11/12/22 amlodipine 5 mg tablet 5 mg PO DAILY blood pressure #90 tabs 02/04/23 metoprolol succinate 50 mg tablet,extended release 24 hr 50 mg PO BID HTN #90 tabs 02/15/23 potassium chloride 20 mEq tablet,extended release 20 meq PO DAILY supplement #90 tabs 02/15/23 rosuvastatin 10 mg tablet 10 mg PO QHS CHOLESTEROL #90 tabs 02/15/23 omeprazole 40 mg capsule,delayed release 40 mg PO DAILY stomach #90 caps 02/21/23 hydrocodone-acetaminophen 5-325mg 5mg-325mg 0.25 tab PO QHS 04/13/23 hydrochlorothiazide 25 mg tablet 25 mg PO DAILY water pill #90 tabs 07/29/23 gabapentin 100 mg capsule 100 mg PO BID pain 08/13/23 ciprofloxacin HCl 500 mg tablet (Cipro) 500 mg PO BID 4 days #8 tabs 08/16/23 Physical Exam Narrative Seen and examined. Right lower extremity pain edema and swelling is resolved. Venous duplex negative for DVT. D-dimer was high. No fever. Physical exam General: Alert, Oriented x3, Cooperative HEENT: Atraumatic, PERRLA, EOMI, Normocephalic Oral: No Gingival or Mucosal Lesions/ Ulcerations Neck: Supple, No JVD, Negative Carotid Bruits Lungs: Air entry diminished in bilateral lung bases. No crepitation/rhonchi Cardiovascular: Regular rate, Regular Rhythm, Normal S1, Normal S2, No murmurs Abdomen: Bowel Sounds Present, Soft, Non Tender, Non-Distended : No renal angle tenderness. No suprapubic tenderness. Extremities: No edema, Capillary Refill Less than 3 Seconds Skin: No rashes, No breakdown Musculoskeletal: Bilateral TKR. Right lower leg symmetrical with left lower leg, no redness, induration or swelling. Neurological: Cranial nerves II-XII grossly intact, DTR 2+/4. No acute focal neurological deficit. Psych/Mental Status: Normal Affect, Appropriate. Weight / BMI Weight Weight: 184 lb 4.903 oz Body Mass Index (BMI) 31.4 ABG / Lab / Microbiology Data 08/16/23 07:20 08/16/23 07:20 Laboratory: Laboratory Results - last 24 hr 08/13/23 19:49: Diff Path Review Reviewed 08/14/23 05:20: Diff Path Review Reviewed 08/15/23 13:16: Vancomycin Trough 19.4 H 08/16/23 07:20: WBC 10.3, RBC 4.47, Hgb 10.2 L, Hct 34.8 L, MCV 77.9 L, MCH 22.8 L, MCHC 29.3 L, RDW Std Deviation 51.4 H, RDW Coeff of Karon 18.5 H, Plt Count 313, MPV 9.1, Immature Gran % (Auto) 0.700, Neut % (Auto) 68.3, Lymph % (Auto) 17.2 L, [place] % (Auto) 11.5 H, Eos % (Auto) 1.9, Baso % (Auto) 0.4, Absolute Neuts (auto) 7.1, Absolute Lymphs (auto) 1.78, Nucleated RBC % 0, Sodium 138, Potassium 4.0, Chloride 107, Carbon Dioxide 28.0, Anion Gap 3 L, BUN 17, Creatinine 1.00, Estim Creat Clear Calc 48.50, Est GFR (MDRD) Af Amer 69, Est GFR (MDRD) Non-Af 57 L, BUN/Creatinine Ratio 17.0, Glucose 104, Calcium 9.4 Microbiology: Microbiology 08/13/23 20:41 Urine Catheter - Catheter Urine Culture - Final Lactobacillus gasseri Radiography Diagnostic Testing: Radiology Impression Venous Doppler Study 08/13/23 22:39 Interpretation Summary Deep veins of the bilateral lower extremities are patent and compressible segmentally. There is no evidence of bilateral lower extremity deep vein thrombosis. The bilateral great saphenous veins appear patent and compressible segmentally. Ordering Physician: Felipe Drew Referring Physician: Katiana Rayo M.D. Performed By: Mimi Chang RVT D/C Instructions Discharge Diet: No restrictions Weight Bearing Status: Weight bearing as tolerated Call your doctor if you observe: Fever of 101 or Higher, Coldness, Increased Pain, Numbness or Tingling, Change in Color, Inability to urinate, Inability to have a bowel movement, Using more than 1 pad per hour, Shortness of breath, Dizziness, Fainting spells, Swelling in the ankles, Chest pain, Prolonged hiccupping, Increased palpitations (irregular heartbeat) and Calf discomfort When: IN 2 WEEKS Meaningful Use Info Meaningful Use Diagnoses (Choose all that apply): None applicable Discharge Plan Admission Admit Date/Time: 08/13/23 22:31 Attending Provider: Luis Miguel Freeman Primary Care Provider: Katiana Rayo Consulting Providers: Felipe Drew; Dilia Best Instructions Additional Instructions / Restrictions: Advised [id number] probiotic, lactobacillus tablets, 1 tablet twice daily for 7 days. Discharge Orders/Prescriptions Prescriptions: New ciprofloxacin HCl [Cipro] 500 mg tablet 500 mg PO BID 4 Days Qty: 8 0RF Continued cholecalciferol (vitamin D3) 50 mcg (2,000 unit) capsule 4,000 unit PO DAILY hydrocodone-acetaminophen 5-325 mg tablet 0.25 tab PO QHS multivitamin with minerals 1 EACH tablet 1 tab PO DAILY biotin 2,500 MCG capsule 1 cap PO DAILY gabapentin 100 mg capsule 100 mg PO BID acetaminophen 500 mg tablet 1,000 mg PO Q6H PRN PRN (Reason: Mild Pain (-10/01)) Qty: 90 0RF sumatriptan succinate 25 mg tablet See Rx Instructions PO .COMPLEX Qty: 14 1RF Rx Instructions: take 1 tab at onset of headache; if no relief may repeat 1 tab after at least 2 hrs; max = 4 tabs/24 hr PO sumatriptan succinate [Imitrex STATdose Pen] 6 mg/0.5 mL pen injector 6 mg subcut Q1-4H PRN (Reason: migraine headache) Qty: 1 1RF Rx Instructions: do not exceed 2 doses in a 24 hour period (DME) side rails for bed 0 .Route .MEDSUPPLY Qty: 1 0RF Rx Instructions: As directed (DME) Ultra-Light Rollator Misc See Rx Instructions .Route Qty: 1 0RF Rx Instructions: As directed ropinirole 0.5 mg tablet 0.5 mg PO QHS Qty: 90 3RF Rx Instructions: administer 1-3 hours before bedtime sertraline 100 mg tablet 200 mg PO DAILY Qty: 180 3RF Rx Instructions: 200 mg PO daily; amlodipine 5 mg tablet 5 mg PO DAILY Qty: 90 3RF metoprolol succinate 50 mg tablet extended release 24 hr 50 mg PO BID Qty: 90 3RF potassium chloride 20 mEq tablet extended release 20 meq PO DAILY Qty: 90 3RF rosuvastatin 10 mg tablet 10 mg PO QHS Qty: 90 3RF omeprazole 40 mg capsule,delayed release(DR/EC) 40 mg PO DAILY Qty: 90 3RF hydrochlorothiazide 25 mg tablet 25 mg PO DAILY Qty: 90 3RF Referrals / Follow Up: Katiana Rayo MD [Primary Care Provider] - 08/22/23 1:30 pm Disposition Disposition (needs filled in before D/C Order can be placed): Home, Self Care Charges/Coding Visit Charges Inpatient E&M: 19114 Disch Hosp >30min
--- NOTE | 2023-08-16 12:46 | CASEMGMT ---
Received tc from Katie at [facility], they are able to accept pt for SOC tomorrow. RN CM into pt room, she is aware that HH will start tomorrow. She denies any further needs at this time.
== END 2023-08-16 14:09 | disposition home health service (06) | DRG 603 ==
LOC: ED 21:18 → MS3 08-14 01:52
PROVIDERS: Internal Medicine; Admitting Provider Internal Medicine; Emergency Provider Emergency Medicine; PCP Internal Medicine; Visit Provider Internal Medicine
DX: L03.115 Cellulitis of right lower limb (principal); Z68.41 Body mass index [BMI] 40.0-44.9, adult; D50.9 Iron deficiency anemia, unspecified; I10 Essential (primary) hypertension; G25.81 Restless legs syndrome; K58.9 Irritable bowel syndrome, unspecified; E87.6 Hypokalemia; K21.9 Gastro-esophageal reflux disease without esophagitis; E78.5 Hyperlipidemia, unspecified; G62.9 Polyneuropathy, unspecified; M19.90 Unspecified osteoarthritis, unspecified site; M54.9 Dorsalgia, unspecified; R26.2 Difficulty in walking, not elsewhere classified; R31.9 Hematuria, unspecified; G89.29 Other chronic pain; N32.81 Overactive bladder; R53.1 Weakness; Z87.891 Personal history of nicotine dependence
CPT/HCPCS: 36415; 73590; 73630; 80048; 80053; 80202; 81001; 83735; 83880; 84100; 84443; 84550; 85025; 85379; 87077; 87086; 87088; 93970; 97110; 97162; 97165; 97530; 97535; 97802; 99283; J7040; J7050; A4216; J0744; J2405

== ENCOUNTER 2023-09-26 13:22 | Inpatient (IN) | payer MEDICARE, MEDICAID, SELFPAY ==
[2023-09-26] VITALS (9 sets, daily range): BP systolic 109–143; BP diastolic 59–92; PULSE 70–90; RESP 14–22; TEMP 36.4–36.9; O2SAT 95–98; BMI 38.6; BMI 39.2
--- NOTE | 2023-09-26 13:24 | CT_ITS ---
We are attempting to reach an attending provider to discuss findings. An addendum with communication details will be sent when the communication is complete. HISTORY: Neuro deficit, acute, stroke suspected. TECHNIQUE: [place]/head and carotid CT angiogram protocol was performed after the intravenous administration of 100 mL Isovue 370. NASCET criteria using the distal ICAs for comparison were used for evaluation of stenoses. 3D reconstructions were reviewed. A radiation dose optimization technique was used for this scan. 2051 images. COMPARISON: CT head same day. FINDINGS: AORTIC ARCH AND BRANCHES: Mild atherosclerosis. RIGHT CCA/RIGHT ICA: No occlusion, significant stenosis or dissection. Retropharyngeal course. Mild calcified plaque at the bifurcation extending into the proximal internal carotid artery. Tortuous distal internal carotid artery. LEFT CCA/LEFT ICA: No occlusion, significant stenosis or dissection. Retropharyngeal course. Tortuous and mildly ectatic distal internal carotid artery. RIGHT VERTEBRAL ARTERY: No occlusion, significant stenosis or dissection. LEFT VERTEBRAL ARTERY: No occlusion, significant stenosis or dissection. ICAs: No significant stenosis at the intracranial/visualized segments. Mild calcified plaque at both carotid siphons. ACAs: No significant stenosis at the visualized segments. MCAs: No significant stenosis at the visualized segments. levi maker: No significant stenosis at the visualized segments. BASILAR ARTERY: No significant stenosis. VERTEBRAL ARTERIES: No significant stenosis at the intradural/visualized segments. No evidence of intracranial aneurysm or vascular malformation. CT/STROKE CTA Head AND Neck W/Con IMPRESSION: No evidence for significant stenosis or occlusion in the carotid or vertebral arteries of the neck. No evidence for large vessel occlusion in the [place] region. Electronically Signed: Yvonne Florian MD at 14:03 EST ,
--- NOTE | 2023-09-26 13:24 | CT_ITS ---
We are attempting to reach an attending provider to discuss findings. An addendum with communication details will be sent when the communication is complete. HISTORY: Neuro deficit, acute, stroke suspected. TECHNIQUE: Multiple axial images were obtained of the head without intravenous contrast. A radiation dose optimization technique was used for this scan. 244 images. COMPARISON: None. FINDINGS: BRAIN PARENCHYMA: Multiple foci and zones of low attenuation in the bilateral cerebral white matter compatible with chronic small vessel ischemic gliosis. No acute intra-axial hemorrhage identified. CSF SPACES: Generalized volume loss. No midline shift or other significant mass effect. No acute extra-axial hemorrhage seen. OTHER: Small osteoma at the outer table of the frontal bone. No significant air fluid levels in the paranasal sinuses or mastoid air cells. Bilateral lens resections. ASPECTS Score for Acute Strokes: 10 CT/STROKE Brain/Head without Cont IMPRESSION: No acute intracranial process identified. Chronic involutional and white matter changes. Electronically Signed: Yvonne Florian MD at 13:36 EST ,
--- NOTE | 2023-09-26 13:24 | EKG12_ITS ---
Test Reason : POSS STROKE Blood Pressure : / mmHG Vent. Rate : 074 BPM Atrial Rate : 000 BPM P-R Int : 000 ms QRS Dur : 084 ms QT Int : 392 ms P-R-T Axes : 000 029 021 degrees QTc Int : 435 ms Normal sinus rhythm Normal ECG Confirmed by Sea Musa ([id number]), videotape editor JODI SANTILLAN ([id number]) on 09/28/2023 9:31:05 AM Referred By: Confirmed By:Sea Musa
--- NOTE | 2023-09-26 13:29 | ED.VIS.STROK ---
HPI History of Present Illness Chief Complaint: Stroke Alert Detail of Chief Complaint: Positive Cardinal score per EMS Informant: patient and EMS Onset/Context/Timing Onset: Yesterday Context: Sudden Onset Timing: Continuous Quality and Location: Positive for Slurred Speech Onset: Last known well 1999 last evening Current Severity: Mild Maximum Severity: Mild Worsened by: Nothing Relieved by: Nothing Associated Symptoms Associated Symptoms: Negative for Headache, Nausea, Vomiting or Chest Pain Narrative Narrative: Patient is an elderly woman who lives alone. She has history of hyperlipidemia, essential hypertension, iron deficiency anemia, GERD, irritable bowel syndrome and iron deficiency anemia. There is also history of frequent falls. Patient last known well 1999September 24. Patient called her neighbor. Neighbor noted her speech was garbled and contacted EMS. EMS notified us prior to arrival. Patient was initially evaluated in the EMS bay and taken immediately to radiology suite for CT and CTA of the head and neck. Patient denies prior history of stroke. Prior similar symptoms: No Recent Illness/Hospitalization: No PFSH PFSH Medical History Abdominal pain Asthma Chronic back pain Chronic bronchitis Chronic headaches Confusion Dark stools DDD (degenerative disc disease) Depression Essential (primary) hypertension Frequent falls Generalized weakness GERD (gastroesophageal reflux disease) H/O emotional problems Hyperlipidemia Hypokalemia IBS (irritable bowel syndrome) Insomnia Iron deficiency anemia Left-sided chest wall pain Localized swelling of chest wall Neuropathy Obesity Osteoarthritis Osteoarthritis of left knee Overactive bladder Pneumonia Vision problems Vitamin D deficiency Home Medications acetaminophen 500 mg tablet 1,000 mg (2 x 500 mg) PO Q6H PRN PRN Mild Pain (-10/01) #90 tabs 02/07/19 [Rx Last Taken 08/12/23 16:15 1,000 mg] cholecalciferol (vitamin D3) 50 mcg (2,000 unit) capsule 4,000 unit PO DAILY SUPPLEMENT 09/10/19 [History Last Taken 09/24/20] biotin 2,500 mcg capsule 1 cap PO DAILY supplement 09/24/20 [History Last Taken 09/24/20] multivitamin with minerals 1 tab PO DAILY supplement 09/24/20 [History Last Taken 09/24/20] sumatriptan succinate 25 mg tablet See Rx Instructions PO .COMPLEX #14 tabs 06/14/22 [Rx Last Taken Unknown] sumatriptan succinate 6 mg/0.5 mL subcutaneous pen injector (Imitrex STATdose Pen) 6 mg (0.5 mL) subcut Q1-4H PRN migraine headache #1 mL 06/14/22 [Rx Last Taken Unknown] side rails for bed #1 ea 07/15/22 [Rx Last Taken Unknown] walker (Ultra-Light Rollator misc) #1 ea 08/23/22 [Rx Last Taken Unknown] ropinirole 0.5 mg tablet 0.5 mg PO QHS restless legs #90 tabs 11/12/22 [Rx Last Taken Unknown] sertraline 100 mg tablet 200 mg (2 x 100 mg) PO DAILY mood #180 tabs 11/12/22 [Rx Last Taken Unknown] potassium chloride 20 mEq tablet,extended release 20 meq PO DAILY supplement #90 tabs 02/15/23 [Rx Last Taken Unknown] rosuvastatin 10 mg tablet 10 mg PO QHS CHOLESTEROL #90 tabs 02/15/23 [Rx Last Taken Unknown] omeprazole 40 mg capsule,delayed release 40 mg PO DAILY stomach #90 caps 02/21/23 [Rx Last Taken Unknown] hydrocodone-acetaminophen 5-325mg 5mg-325mg 0.25 tab PO QHS 04/13/23 [History Last Taken Unknown] hydrochlorothiazide 25 mg tablet 25 mg PO DAILY water pill #90 tabs 07/29/23 [Rx Last Taken Unknown] amlodipine 2.5 mg tablet 2.5 mg PO DAILY blood pressure #30 tabs 08/22/23 [Rx Last Taken Unknown] gabapentin 100 mg capsule 100 mg PO DAILY #60 caps 08/30/23 [Rx Last Taken Unknown] metoprolol succinate 50 mg tablet,extended release 24 hr 50 mg PO BID HTN #90 tabs 08/31/23 [Rx Last Taken Unknown] Allergy/AdvReac Type Severity Reaction Status Date / Time adhesive tape Allergy Severe Area Sore Verified 09/26/23 13:53 cefpodoxime [From Vantin] Allergy Unknown Unknown Verified 09/26/23 13:53 codeine Allergy Unknown Unknown Verified 09/26/23 13:53 metronidazole [From Flagyl] Allergy Unknown Unknown Verified 09/26/23 13:53 sulfamethoxazole Allergy Unknown Unknown Verified 09/26/23 13:53 [From Bactrim] trimethoprim [From Bactrim] Allergy Unknown Unknown Verified 09/26/23 13:53 Sulfa (Sulfonamide Allergy Unknown Verified 09/26/23 13:53 Antibiotics) Family History Sister Anesthesia complication Breast cancer Hypertension Cancer Thyroid, rectal, kidney Thyroid disorder Diabetes Mother Arthritis Pancreatic cancer Depression Diabetes Father Colon cancer Hypertension CVA (cerebral vascular accident) Sister Cancer rectal/kidney/medullary Thyroid cancer Surgical History History of back surgery History of History of cholecystectomy History of gastric surgery History of hernia repair History of hysterectomy History of left heart catheterization (10/14/20) History of left knee replacement History of right knee joint replacement 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 History of total right knee replacement Hx of breast reduction, elective Social History household members: none housing: apartment Smoking Status: Former smoker alcohol intake: never substance use type: does not use what type of physical activity do you participate in: none ROS ROS ED Constitutional Constitutional ED: Denies chills, fever(s) or subjective Eyes Eyes: Denies blurry vision, change in vision or diplopia ENT ENT ED: Denies ear pain, rhinorrhea or sore throat Cardiovascular Cardiovascular: Denies chest pain or palpitations Respiratory/Chest Respiratory/Chest: Denies cough, dyspnea or dyspnea on exertion Gastrointestinal Gastrointestinal: Denies abdominal pain, nausea or vomiting Genitourinary Genitourinary ED: Denies dysuria, hematuria or urinary frequency Musculoskeletal Musculoskeletal: Denies arthralgias or myalgias Integumentary Denies rash Neurologic Neurologic: Reports weakness; Denies headache(s) Hematologic/Lymphatic Hematologic/Lymphatic: Denies easy bruising EXAM Physical Exam Const Vital Signs: 09/26/23 13:39 09/26/23 13:45 09/26/23 13:45 Temperature 98.2 F Temperature Source Temporal Pulse Rate 90 75 Respiratory Rate 22 H 20 H Blood Pressure 121/68 H 121/68 H Blood Pressure Mean 85 85 Pulse Ox 96 98 98 Oxygen Delivery Method Room Air Room Air 09/26/23 14:15 Temperature Temperature Source Pulse Rate 78 Respiratory Rate 18 Blood Pressure 139/92 H Blood Pressure Mean 107 Pulse Ox 96 Oxygen Delivery Method Room Air Positive well nourished, well developed and obese Constitutional Narrative: Patient's speech is slurred. She is awake but not alert. General Appearance ED: well developed and NAD Nutritional Appearance: obese HEENT Reports dry mucous membranes atraumatic Mouth ED: Yes dry mucous membranes Mouth: dry mucous membranes Eyes PERRL and EOMs intact bilaterally Eyes Narrative: There is no nystagmus. There is no visual field cut. General Eye ED: Negative for pale conjunctiva or scleral icterus Neck no lymphadenopathy, supple and no JVD Chest Wall inspection of chest normal and palpation of chest normal Resp normal respiratory effort and clear to auscultation bilaterally Cardio no murmurs Rate: regular rate Rhythm: regular rhythm Heart Sounds: S1 normal and S2 normal GI normal to inspection, nondistended, normoactive bowel sounds, soft to palpation, non-tender and non-distended Auscultation: normoactive bowel sounds Back/Spine no CVA tenderness Extremity normal to inspection Neuro oriented x3, No CN's II-XII intact bilaterally and No no sensory deficits noted Harinder Coma Scale: document GCS findings Spontaneous Obeys Commands Oriented 15 Sensorium / Orientation: Negative for alert Motor Exam: strength 5/5 throughout Psych mental status grossly normal Skin no wounds General Skin Exam: Negative for jaundice Lesions: no lesions Rashes: no rashes NIHSS NIHSS Initial: 1a Level of Consciousness: 1 1b LOC Questions (Score 2 if aphasic/stupor): 0 1c LOC Commands (Only score 1st attempt): 0 2 Best Gaze (If aphasic, use reflexive mvmts.): 0 3 Visual: 0 4 Facial Palsy: 1 5 Motor Arm Right (UN = amputation/fusion): 0 5 Motor Arm Left: 0 6 Motor Leg Right: 0 6 Motor Leg Left: 0 7 Limb ataxia (Only + if out of proportion): 0 8 Sensory (Aphasia/stupor=0 or 1, coma=2): 1 9 Best Language: 0 10 Dysarthria (mute, coma=2, intubated=UN): 1 11 Extinction and Inattention (only scored if +): 1 Total Score: 5 MDM MDM MDM Narrative Medical decision making narrative: Patient presents with strokelike symptoms. Stroke team was called. Patient not a candidate for TNK. CT of the head without contrast and CTA of the head and neck to evaluate for any significant stenosis. Also rule out intracranial bleed since she has mild headache. History & Record Review Discussion w/independent historian: EMS personnel Additional record(s) reviewed:: Prior ED visit (Most recently seen for cystitis. She also has visits for multiple falls, electrolyte abnormalities) and Prior labs Lab Data Attestation: I reviewed the patient's lab results. Lab results narrative: White count is elevated with slight shift. This is nonspecific. Coags are normal. Electrolyte panel is unremarkable. Troponin is normal. Labs: Laboratory Results - last 24 hr 09/26/23 13:40 WBC 13.6 H RBC 4.89 Hgb 11.3 L Hct 38.1 MCV 77.9 L MCH 23.1 L MCHC 29.7 L RDW Std Deviation 51.7 H RDW Coeff of Karon 18.6 H Plt Count 333 MPV 9.2 Immature Gran % (Auto) 0.700 Neut % (Auto) 74.3 H Lymph % (Auto) 12.2 L [place] % (Auto) 10.3 H Eos % (Auto) 2.1 Baso % (Auto) 0.4 Absolute Neuts (auto) 10.1 H Absolute Lymphs (auto) 1.66 Nucleated RBC % 0 PT 14.8 INR 1.2 APTT 35.8 Sodium 137 Potassium 3.1 L Chloride 101 Carbon Dioxide 31.0 Anion Gap 5 BUN 20 H Creatinine 0.88 Estim Creat Clear Calc 61.25 Est GFR (MDRD) Af Amer 80 Est GFR (MDRD) Non-Af 66 BUN/Creatinine Ratio 22.8 H Glucose 111 H Calcium 9.4 Troponin I High Sens 8 Radiography Diagnostic Testing: Clinical Impression(s) from Imaging Studies Brain CT 09/26/23 13:24 IMPRESSION: No acute intracranial process identified. Chronic involutional and white matter changes. Electronically Signed: Yvonne Florian MD at 13:36 EST , ADDENDUM: 09/26/23 [id number] IMPRESSION: No acute intracranial process identified. Chronic involutional and white matter changes. N.B. : The above Results were Read Back by Yvonne Florian MD to Joshua Santiago MD, and understanding confirmed on 09/26/2023 13:47:48 (ET). Electronically Signed: Yvonne Florian MD at 13:36 EST , Head/Neck CTA 09/26/23 13:24 IMPRESSION: No evidence for significant stenosis or occlusion in the carotid or vertebral arteries of the neck. No evidence for large vessel occlusion in the [place]. Electronically Signed: Yvonne Florian MD at 14:03 EST , ADDENDUM: 09/26/23 1412 IMPRESSION: No evidence for significant stenosis or occlusion in the carotid or vertebral arteries of the neck. No evidence for large vessel occlusion in the [place]. N.B. : The above Results were Read Back by Yvonne Florian MD to Joshua Santiago MD, and understanding confirmed on 09/26/2023 14:05:28 (ET). Electronically Signed: Yvonne Florian MD at 14:03 EST , EKG Initial EKG: Attestation: I personally reviewed and interpreted this EKG as follows: Interpretation: Sinus Rhythm (Rate is 74. Computer is reading A-fib which is incorrect. DE interval is normal. Cures duration is 84 ms. QT duration 392 ms. [place] is normal. There is artifact that the computer is most likely reading is A-fib.) Prior: Unchanged (October 05, 2020) Management Discussion w/another healthcare provider: Hospitalist and Radiologist (Radiologist contacted me with respect to the CT without contrast and the CTA of the head and neck. All were negative. Therefore will contact hospitalist for admission.) Stroke Documentation Questions Stroke Team Activated: Yes Reviewed Inclusion/Exclusion criteria: No IV Thrombolytic Administered: No No contraindications from thrombolytic administration: No Discharge Plan Dx/Rx/DC Orders Clinical Impression: 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, Hyperlipidemia, Essential (primary) hypertension, Facial droop due to acute cerebrovascular accident (CVA), Herman-inattention Disposition Disposition: Acute Care Hospital [facility]
--- NOTE | 2023-09-26 13:40 | ED.RN ---
[facility] NOTIFIED PT BACK IN ROOM. NEUROLOGIST ON WITH ANOTHER PT THEN WILL BEAM IN
[2023-09-26 13:51] LABS: Absolute Lymphocyte Count 1.66 X10^3/uL (0.83-4.51); Absolute Neutrophil Count 10.1 X10^3/uL (2.0-7.7); Basophil# 0.05 X10^3/uL; Basophil% 0.4 % (0-1); Eosinophil# 0.28 X10^3/uL; Eosinophils% 2.1 % (0-5); Hematocrit 38.1 % (37-47); Hemoglobin 11.3 g/dL (12.0-15.0); Lymphocyte # 1.66 X10^3/ul (0.83-4.51); Lymphocyte % 12.2 % (19-41); Mean Corp Hgb Conc 29.7 g/dL (32-36); Mean Corpuscular Hgb 23.1 pg (27.0-32.0); Mean Corpuscular Volume 77.9 fL (81-99); Mean Platelet Vol. 9.2 fl (6.2-12.0); Monocyte% 10.3 % (0-10); NRBC Flagged by Analyzer 0 % (0-5); Neutrophil % 74.3 % (47-70); Platelet Count 333 K/mm3 (150-450); RBC Distribution Width CV 18.6 % (11.6-14.6); RBC Distribution Width SD 51.7 fl (35.1-43.9); Red Blood Count 4.89 M/mm3 (4.2-5.4); White Blood Count 13.6 K/mm3 (4.4-11.0)
[2023-09-26 14:06] LABS: International Normalized Ratio 1.2; Prothrombin Time (Protime)PT. 14.8 SECONDS (11.7-14.9)
[2023-09-26 14:07] LABS: Partial Thromboplast Time 35.8 Seconds (24.1-36.2)
[2023-09-26 14:10] LABS: Anion Gap 5 (5-15); BUN 20 mg/dL (7-18); BUN/Creat Ratio 22.8 RATIO (10-20); Calcium,Total 9.4 mg/dL (8.5-10.1); Chloride 101 mmol/L (98-107); Creatinine, Serum 0.88 mg/dL (0.55-1.02); EST Glomerular Filtration Rate 66 mL/min (>60); Est Glom Filt Rate - Afr Amer 80 mL/min (>60); Estimated Creatinine Clearance 61.25 ml/min; Glucose 111 mg/dL (74-106); Potassium 3.1 mmol/L (3.5-5.1); Sodium Level 137 mmol/L (136-145); Troponin-I HS 8 pg/mL (3.0-54.0)
--- OUTSIDE RECORDS SUMMARY | 2023-09-26 14:36 | XMS RPT_ITS | CCD ---
Author Name Unknown Address [address] [place] [address] Organization [facility] Results Test Name Value Interpretation Reference Range Facil ity Progress note 11-14-2020 Note Date & Type Note Facility 11-14-2020 Note HNO ID: [id number] Author: Eric Sol Service: ? Author Type: [...] Objective: Patient presents to clinic ambulating in replaced by [facility] Vasc: DP and PT pulses are decreased [...] RTC in 3-4 months. Eric Sol DPM [facility] Progress note 11-14-2020 Note Date & Type Note Facility 11-14-2020 Note HNO ID: [id number] Author: Paty Harmon RN Service: ? Author Type: ? Type: Progress Notes Filed: 11/14/2020 2:54 PM Note Text: AMB ROOMING INTAKE FLOWSHEET DATA Risk Screening Do you have concerns about personal safety or safety in the home?: No Patient presents with: Left Foot - Established Patient, Nail Care Right Foot - Established Patient, Nail Care [facility] Clinical Note 09-16-2020 Note Date & Type Note Facility 09-16-2020 Note Patient Outreach ([place] [facility]) VANESSA KLINE ([id number]) 1945 F Date Time Provider Department 09/16/20 [...] Fully Assessed Order(s):SARS-COVID VACCINE 1ST DOSE APPT [[id number]] Order #: [id number] FUTURE Prescriptions as of 09/16/2020 Sig: OMEPRAZOLE [...] Encounter Status:Closed by EPIC, PRODUSER on 09/19/20 [facility] Summary Purpose Family History No Family [...] BE BASED ON THE PRIMARY CLINICAL RECORDS. [facility]. provides no warranty or guarantee of the accuracy or completeness of information in this document.
[2023-09-26] MEDS: Clopidogrel Bisulfate 300 MG Tablet PO (14:38)
[2023-09-26] MEDS: Aspirin 325 MG Tablet PO (14:38)
[2023-09-26] MEDS: 0.9% Normal Saline (500mL Bag) 500 ML 1000 ML IV (14:38)
--- NOTE | 2023-09-26 14:45 | RAD_ITS ---
HISTORY: Neuro deficit, acute, stroke suspected. TECHNIQUE: XR Chest 1 View. COMPARISON: CT 09/24/2020. FINDINGS: CARDIOMEDIASTINAL BORDERS: Cardiac silhouette within normal limits in size. Mild tortuosity and calcification of the aorta. LUNGS: Radiographically clear. PLEURA: No pleural effusion or pneumothorax seen. OSSEOUS STRUCTURES: Advanced degenerative changes of the shoulders. Thoracic spinal electrode again noted. RAD/Chest 1 View IMPRESSION: No acute cardiopulmonary process identified. Electronically Signed: Yvonne Florian MD at 15:06 EST ,
--- NOTE | 2023-09-26 15:18 | ECHOCS_ITS ---
Reason For Study: TIA/CVA Procedure This was a 2D Doppler, Color Flow transthoracic echocardiogram. The study was technically difficult. Exam performed portable in patient room. Left Ventricle Normal size and thickness. The left ventricular ejection fraction is 65 %. Unable to assess diastolic function based on available data. Right Ventricle Normal right ventricle. Atria The left and right atria are normal. Nondiagnostic bubble contrast study for PFO because of suboptimal images. Mitral Valve The mitral valve is structurally normal. No prolapse or stenosis seen. Tricuspid Valve Mild tricuspid valve insufficiency. Normal pulmonary artery pressure. Aortic Valve Trisinus/trileaflet aortic valve. Pulmonic Valve The pulmonic valve is not well visualized. Great Vessels Normal sized aortic root. Pericardium/Pleural Trivial pericardial effusion. Medication Performed a rapid injection of agitated mix of 9 cc saline and 1cc air to assess for atrial septal defect. Diluted definity 2ml given slow IV push to enhance endocardial definition. MMode/2D Measurements & Calculations LVIDd: 4.1 cm IVSd: 1.1 cm Ao root diam: 3.1 cm LVIDs: 2.4 cm LVPWd: 1.0 cm RVDd: 3.3 cm FS: 41.1 % LAV(MOD-sp4): 28.0 ml LVAd ap4: 23.1 cm2 LVAd ap2: 22.0 cm2 LVLd ap4: 6.3 cm LVLd ap2: 6.2 cm EDV(MOD-sp4): 65.8 ml EDV(MOD-sp2): 62.7 ml EDV(sp4-el): 71.3 ml EDV(sp2-el): 66.5 ml LVAs ap4: 10.3 cm2 LVAs ap2: 10.7 cm2 LVLs ap4: 4.9 cm LVLs ap2: 4.9 cm ESV(MOD-sp4): 17.9 ml ESV(MOD-sp2): 19.1 ml ESV(sp4-el): 18.5 ml ESV(sp2-el): 19.6 ml EF(MOD-sp4): 72.8 % EF(MOD-sp2): 69.6 % EF(sp4-el): 74.0 % SV(MOD-sp4): 47.9 ml SV(MOD-sp2): 43.6 ml SV(sp4-el): 52.7 ml LA A4 area: 13.0 cm2 LA dimension(2D): 2.8 cm RA A4 area: 11.2 cm2 Time Measurements MV dec time: 0.30 sec Doppler Measurements & Calculations MV E max james: 65.2 cm/sec Lat Peak E' James: 8.0 cm/sec Med Peak E' James: 7.6 cm/sec MV A max james: 81.1 cm/sec E/E' lat: 8.1 E/E' med: 8.6 MV E/A: 0.80 Ao V2 max: 133.1 cm/sec LV V1 max: 105.3 cm/sec MV dec slope: 216.0 cm/sec2 Ao max P.1 mmHg LV V1 max P.4 mmHg PA V2 max: 86.5 cm/sec TR max james: 250.6 cm/sec TR max P.1 mmHg ECHO/Echo Complete W/ Contrast Interpretation Summary The study was technically difficult. The left ventricular ejection fraction is 65 %. Nondiagnostic bubble contrast study for PFO because of suboptimal images. Mild tricuspid valve insufficiency. Trivial pericardial effusion. Ordering Physician: Mona Chery Referring Physician: Katiana Rayo Performed By: Kimberlee Rg RDCS
--- NOTE | 2023-09-26 15:19 | HP.PCM.HOS_ITS ---
HPI - General General Date of Admission: 09/26/23 Date of Service: 09/26/23 Chief Complaint: Slurred speech HPI Narrative VANESSA KLINE, is a 78 F who presented to the emergency department at [facility] on 09/26/2023 with slurred speech. Patient lives alone and was last known well at about 8 PM last evening. The patient called her neighbor today and noted that her speech was garbled and contacted EMS. Stroke alert was called prior to arrival. Stroke team workup was pursued and she was found to have an NIH of 5 on presentation with 1 for level of consciousness, 1 for right facial palsy, 1 for sensory, 1 for dysarthria and 1 for extinction/attention. She is not a TNK candidate due to timing of last known well. CT of the brain was unremarkable. CTA of the head and neck was read as unremarkable however the emergency department physician had conversation with the stroke neurologist at [facility] and they felt that there was some mild stenosis intracranially and recommended an IV fluid bolus to keep her blood pressure up some to potentially help with symptoms. Patient is also complaining of bilateral shoulder pain that started about 2 days ago. She states it has feels like somebody is standing on her shoulders and indicates that it has affected her mobility. Vital signs show temperature of 98.2, heart rate 90, blood pressure was 121/68, respiratory was 22 and oxygen saturations are 96 to 98% on room air. CBC showed a mild leukocytosis with a white count of 13.6 and a mild anemia that seems to be microcytic with a hemoglobin 11.3. Platelet count was normal. Coags were normal. Chemistry panel was overall unremarkable other than some mild hypokalemia with a potassium of 3.1. Her troponin was 8. Again, CTA of the head and neck were overtly unremarkable however the neurologist felt there was some stenosis in intracranially in the CTA. Chest x-ray showed no acute cardiopulmonary process. EKG was normal sinus rhythm without any ST-T wave changes concerning for acute ischemia and normal intervals. Stroke neurologist recommended she be loaded with Plavix now at 300 mg and start a full dose aspirin with ongoing aspirin Plavix after admission. [facility] Medical History (Updated 09/26/23 @ 15:[address] Mona Chery DO) Abdominal pain Anxiety Asthma Chronic back pain Chronic bronchitis Chronic headaches Confusion Dark stools DDD (degenerative disc disease) Depression Essential (primary) hypertension Frequent falls Generalized weakness GERD (gastroesophageal reflux disease) H/O emotional problems Hyperlipidemia Hypokalemia IBS (irritable bowel syndrome) Insomnia Iron deficiency anemia Left-sided chest wall pain Localized swelling of chest wall Migraines Neuropathy Non-smoker Obesity Osteoarthritis Osteoarthritis of left knee Overactive bladder Pneumonia Rheumatoid arthritis Stroke/cerebrovascular accident TIA (transient ischemic attack) Vision problems Vitamin D deficiency Home Medications acetaminophen 500 mg tablet 1,000 mg (2 x 500 mg) PO Q6H PRN PRN Mild Pain (- 10/01) #90 tabs 02/07/19 [Rx Last Taken 08/12/23 16:15 1,000 mg] cholecalciferol (vitamin D3) 50 mcg (2,000 unit) capsule 4,000 unit PO DAILY SUPPLEMENT 09/10/19 [History Last Taken 09/24/20] biotin 2,500 mcg capsule 1 cap PO DAILY supplement 09/24/20 [History Last Taken 09/24/20] multivitamin with minerals 1 tab PO DAILY supplement 09/24/20 [History Last Taken 09/24/20] sumatriptan succinate 25 mg tablet See Rx Instructions PO .COMPLEX #14 tabs 06/14/22 [Rx Last Taken Unknown] sumatriptan succinate 6 mg/0.5 mL subcutaneous pen injector (Imitrex STATdose Pen) 6 mg (0.5 mL) subcut Q1-4H PRN migraine headache #1 mL 06/14/22 [Rx Last Taken Unknown] side rails for bed #1 ea 07/15/22 [Rx Last Taken Unknown] walker (Ultra-Light Rollator misc) #1 ea 08/23/22 [Rx Last Taken Unknown] ropinirole 0.5 mg tablet 0.5 mg PO QHS restless legs #90 tabs 11/12/22 [Rx Last Taken Unknown] sertraline 100 mg tablet 200 mg (2 x 100 mg) PO DAILY mood #180 tabs 11/12/22 [Rx Last Taken Unknown] potassium chloride 20 mEq tablet,extended release 20 meq PO DAILY supplement #90 tabs 02/15/23 [Rx Last Taken Unknown] rosuvastatin 10 mg tablet 10 mg PO QHS CHOLESTEROL #90 tabs 02/15/23 [Rx Last Taken Unknown] omeprazole 40 mg capsule,delayed release 40 mg PO DAILY stomach #90 caps 02/21/23 [Rx Last Taken Unknown] hydrocodone-acetaminophen 5-325mg 5mg-325mg 0.25 tab PO QHS 04/13/23 [History Last Taken Unknown] hydrochlorothiazide 25 mg tablet 25 mg PO DAILY water pill #90 tabs 07/29/23 [Rx Last Taken Unknown] amlodipine 2.5 mg tablet 2.5 mg PO DAILY blood pressure #30 tabs 08/22/23 [Rx Last Taken Unknown] gabapentin 100 mg capsule 100 mg PO DAILY #60 caps 08/30/23 [Rx Last Taken Unknown] metoprolol succinate 50 mg tablet,extended release 24 hr 50 mg PO BID HTN #90 tabs 08/31/23 [Rx Last Taken Unknown] Allergy/AdvReac Type Severity Reaction Status Date / Time adhesive tape Allergy Severe Area Sore Verified 09/26/23 13:53 cefpodoxime [From Vantin] Allergy Unknown Unknown Verified 09/26/23 13:53 codeine Allergy Unknown Unknown Verified 09/26/23 13:53 metronidazole [From Flagyl] Allergy Unknown Unknown Verified 09/26/23 13:53 sulfamethoxazole Allergy Unknown Unknown Verified 09/26/23 13:53 [From Bactrim] trimethoprim [From Bactrim] Allergy Unknown Unknown Verified 09/26/23 13:53 Sulfa (Sulfonamide Allergy Unknown Verified 09/26/23 13:53 Antibiotics) Family History Sister Anesthesia complication Breast cancer Hypertension Cancer Thyroid, rectal, kidney Thyroid disorder Diabetes Mother Arthritis Pancreatic cancer Depression Diabetes Father Colon cancer Hypertension CVA (cerebral vascular accident) Sister Cancer rectal/kidney/medullary Thyroid cancer Surgical History (Updated 09/26/23 @ 15:25 by Nenita Baker) History of appendectomy History of back surgery History of History of cholecystectomy History of gastric surgery History of hernia repair History of hysterectomy History of left heart catheterization (10/14/20) History of left knee replacement History of right knee joint replacement 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 History of total right knee replacement Hx of breast reduction, elective Social History (Updated 09/26/23 @ 15:[address] Mona Chery DO) household members: none housing: apartment current occupational status: retired Smoking Status: Former smoker alcohol intake: never substance use type: does not use what type of physical activity do you participate in: none ROS Constitutional Constitutional: Denies anorexia, change in weight, chills, fatigue, fever(s), malaise, night sweats, weakness or other Eyes Eyes: Denies blurry vision, change in eye color, change in vision, discharge from eye(s), double vision, erythema, eye pain, loss of vision or other ENT HEENT: Denies abnormal hearing, dysphagia, ear pain, epistaxis, headache(s), hearing loss, nasal congestion, nasal discharge, post nasal drip, sinus pressure, sore throat or other Cardiovascular Cardiovascular: Denies chest pain, claudication, dyspnea on exertion, edema, lightheadedness, orthopnea, palpitations, paroxysmal nocturnal dyspnea, rapid heart rate, syncope or other Respiratory/Chest Respiratory/Chest: Denies cough, dyspnea, excessive phlegm production, hemoptysis, productive cough, shortness of breath at rest, shortness of breath with exertion, wheezing or other Gastrointestinal Gastrointestinal: Denies abdominal pain, coffee ground emesis, constipation, diarrhea, dyspepsia, hematemesis, hematochezia, loose stools, melena, nausea, vomiting or other Genitourinary Genitourinary: Denies burning urination, difficulty urinating, dysuria, hematuria, nocturia, urinary frequency, urinary hesitancy, urinary incontinence, urinary urgency or other Musculoskeletal Musculoskeletal: Reports arthralgias and other Details: Patient complains of bilateral shoulder pain that started 2 days ago Neurologic Neurologic: Reports abnormal speech, focal weakness and paresthesias; Denies abnormal gait, confusion, disequilibrium, dizziness, headache(s), numbness, seizure-like activity, seizures, syncope, tingling, tremor(s) or other Psychiatric Psychiatric: Denies anxiety, depression, homicidal ideation, suicidal ideation or other Endocrine Endocrinology: Denies change in body appearance, cold intolerance, excessive sweating, heat intolerance, polydipsia, polyuria or other Allergic/Immunologic Allergic/Immunologic: Denies rhinitis, hives, eczemia, asthma or other Vital Signs Vital Signs Vital Signs: 09/26/23 13:39 09/26/23 13:45 09/26/23 13:45 Temperature 98.2 F Temperature Source Temporal Pulse Rate 90 75 Respiratory Rate 22 H 20 H Blood Pressure 121/68 H 121/68 H Blood Pressure Mean 85 85 Pulse Ox 96 98 98 Oxygen Delivery Method Room Air Room Air 09/26/23 14:15 Temperature Temperature Source Pulse Rate 78 Respiratory Rate 18 Blood Pressure 139/92 H Blood Pressure Mean 107 Pulse Ox 96 Oxygen Delivery Method Room Air Weight Weight: 102.05 kg Body Mass Index (BMI) 38.6 Physical Exam Const alert, oriented x3, no apparent distress and well nourished; Negative for average body habitus or healthy appearing Constitutional Narrative: Obese, older, white female, lying in bed, speech is somewhat garbled and moderately difficult to understand, appears comfortable currently nontoxic General Appearance: cooperative HEENT normocephalic, head/scalp atraumatic and moist oral mucous membranes; Negative for hearing grossly normal bilaterally HEENT Narrative: Dentures in place, Mallampati 3, no thrush, mild hearing deficits Eyes PERRL, EOMs intact bilaterally and conjunctivae normal Eyes Narrative: No scleral icterus Neck no lymphadenopathy and supple Neck Narrative: Trachea midline, neck is short and thick, no thyroid enlargement noted Resp normal respiratory effort, no retractions, no use of accessory muscles and clear to auscultation bilaterally Auscultation: Negative for rales, rhonchi or wheezes Cardio regular rate, regular rhythm, S1 normal heart sound, S2 normal heart sound, no murmurs, no rub, no gallops and no clicks Cardio Narrative: Few ectopic beats GI normal to inspection, nondistended, normoactive bowel sounds, soft to palpation and non-tender Extremity no clubbing, cyanosis or edema Extremity Narrative: Pedal pulses are 2+, decreased shoulder range of motion bilaterally with pain during movement and pain with gentle palpation of both shoulders Skin no rashes or lesions noted, no jaundice, no petechiae and no mottling Skin Narrative: Skin is dry with lesions consistent with seborrheic keratoses, no wounds Neuro oriented x3, No CN's II-XII intact bilaterally and moves all extremities Neuro Narrative: Speech is somewhat garbled and moderately difficult to understand Speech: Negative for speech normal Psych affect normal Psych Narrative: Very pleasant, interacts appropriately Results Lab / Micro Data Attestation: I reviewed the patient's lab results. 09/26/23 13:40 09/26/23 13:40 Labs: Laboratory Results - last 24 hr 09/26/23 13:40: WBC 13.6 H, RBC 4.89, Hgb 11.3 L, Hct 38.1, MCV 77.9 L, MCH 23.1 L, MCHC 29.7 L, RDW Std Deviation 51.7 H, RDW Coeff of Karon 18.6 H, Plt Count 333, MPV 9.2, Immature Gran % (Auto) 0.700, Neut % (Auto) 74.3 H, Lymph % (Auto) 12.2 L, Wright % (Auto) 10.3 H, Eos % (Auto) 2.1, Baso % (Auto) 0.4, Absolute Neuts (auto) 10.1 H, Absolute Lymphs (auto) 1.66, Nucleated RBC % 0, PT 14.8, INR 1.2, APTT 35.8, Sodium 137, Potassium 3.1 L, Chloride 101, Carbon Dioxide 31.0, Anion Gap 5, BUN 20 H, Creatinine 0.88, Estim Creat Clear Calc 61.25, Est GFR (MDRD) Af Amer 80, Est GFR (MDRD) Non-Af 66, BUN/Creatinine Ratio 22.8 H, Glucose 111 H, Calcium 9.4, Troponin I High Sens 8 Imaging Radiology Impression Brain CT 09/26/23 13:24 IMPRESSION: No acute intracranial process identified. Chronic involutional and white matter changes. Electronically Signed: Yvonne Florian MD at 13:36 EST Reading Location ID and State: [facility] / [place] Tel , Service support , ADDENDUM: 09/26/23 1354 IMPRESSION: No acute intracranial process identified. Chronic involutional and white matter changes. N.B. : The above Results were Read Back by Yvonne Florian MD to Joshua Santiago MD, and understanding confirmed on 09/26/2023 13:47:48 (ET). Electronically Signed: Yvonne Florian MD at 13:36 EST , Head/Neck CTA 09/26/23 13:24 IMPRESSION: No evidence for significant stenosis or occlusion in the carotid or vertebral arteries of the neck. No evidence for large vessel occlusion in the [place]. Electronically Signed: Yvonne Florian MD at 14:03 EST , ADDENDUM: 09/26/23 1412 IMPRESSION: No evidence for significant stenosis or occlusion in the carotid or vertebral arteries of the neck. No evidence for large vessel occlusion in the [place]. N.B. : The above Results were Read Back by Yvonne Florian MD to Joshua Santiago MD, and understanding confirmed on 09/26/2023 14:05:28 (ET). Electronically Signed: Yvonne Florian MD at 14:03 EST , Chest X-Ray 09/26/23 14:45 IMPRESSION: No acute cardiopulmonary process identified. Electronically Signed: Yvonne Florian MD at 15:06 EST , Assessment & Plan Assessment/Plan (1) Facial droop due to acute cerebrovascular accident (CVA): (2) 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: (3) Hypokalemia: (4) Microcytic anemia: (5) Arthralgia: PLAN: Plan Acute ischemic stroke -Patient was last known well last evening at 8 PM -Not TNK candidate due to timing of presentation -Stroke neurologist felt that she saw stroke on CT of the brain and some stenotic area in her CTA of the brain for which she recommended 500 cc fluid bolus to maintain elevated blood pressure -Check lipids -Check hemoglobin A1c -Hold home antihypertensives and allow for permissive hypertension -Consider further IV fluid bolus for worsening symptoms -Check MRI of the brain -Check echocardiogram -Patient was loaded with Plavix in the emergency department and will start 75 mg tomorrow -Aspirin 81 mg daily PT/OT consultation -Speech therapy consultation Bilateral shoulder pain -Check sed rate CRP to rule out polymyalgia rheumatica -PT/OT consultation Microcytic anemia -Hemoglobin is only mildly low at 11.3 -Check iron studies -Check stool guaiac Hypokalemia -Will replete IV as there may be some swallowing deficits -Repeat lab in a.m. -Check a magnesium level Dysarthria/possible dysphagia -Speech therapy consultation -N.p.o. for now -Bedside swallow eval History of migraine headache -Hold sumatriptan's for now Hypertension -Hold home amlodipine -Hold home hydrochlorothiazide -Hold metoprolol -Allow for permissive hypertension Hyperlipidemia -Lipid panel is pending -Patient is on rosuvastatin 10 mg at home so we will continue with atorvastatin 80 mg here GERD -Continue home PPI Neuropathy -Continue home gabapentin Restless leg syndrome -Continue home Requip stiffness Depression -Continue home sertraline DVT prophylaxis -Lovenox subcu daily CODE STATUS -DNR CCA with no intubation as discussed prior to admission Charges/Coding Visit Charges Inpatient E&M: 16807 Init Hosp L2
--- NOTE | 2023-09-26 15:46 | CHAPLAIN ---
Type of Pastoral Visit ___ Initial Visit ___ Follow-up Visit ___ On-call Visit ___ General Patient Visit ___ Spiritual Assessment ___ Family Conference ___ Bereavement _x__ Rapid Response ___ Code Blue ___ Other (describe below) Pastoral Care Referral From ___ Patient ___ Family ___ Nurse ___ Physician ___ Foreclosure Specialist ___ Conversion Developer _x__ Other (describe below) Sacrament/Intervention ___ Active listening ___ Anointing ___ Spiritism ___ Bereavement ___ Communion ___ Kellee exploration ___ ___ Life review ___ Prayer ___ Reconciliation ___ Sacrament of Sick _x__ Supportive presence ___ Wedding ___ Other (describe below) Pastoral Comments responded to stroke alert; met with a neighbor and caregiver who came in support of this patient; offered presence and support; gave beverages as they waited for pt to return to the room; patient came back from CT and was introduced to this showcase trimmer and offer of presence; no other needs identified at this time
[2023-09-26] MEDS: Potassium Chloride 10mEq/100mL 10 MEQ/100 ML IV.SOLN. 100 MEQ IV BOLUS ×4 (16:58→20:48)
--- OUTSIDE RECORDS SUMMARY | 2023-09-26 18:40 | XMS RPT_ITS | CCD ---
Author Name Unknown Address [address] [place] [address] Organization [facility] Results Test Name Value Interpretation Reference Range Facil ity Progress note 11-14-2020 Note Date & Type Note Facility 11-14-2020 Note HNO ID: [id number] Author: Eric Sol Service: ? Author Type: [...] Objective: [facility] and PT pulses [...] RTC in 3-[address] DPM [facility] Progress note 11-14-2020 Note Date & Type Note Facility 11-14-2020 Note HNO ID: [id number] Author: Paty Harmon RN Service: ? Author Type: ? Type: Progress Notes Filed: 11/14/2020 2:54 PM Note Text: AMB ROOMING INTAKE FLOWSHEET DATA Risk Screening Do you have concerns about personal safety or safety in the home?: No Patient presents with: Left Foot - Established Patient, Nail Care Right Foot - Established Patient, Nail Care [facility] Clinical Note 09-16-2020 Note Date & Type Note Facility 09-16-2020 Note Patient Outreach ([place] [facility]) VANESSA KLINE ([id number]) 1945 F Date Time Provider Department 09/16/20 [...] Fully Assessed Order(s):SARS-COVID VACCINE 1ST DOSE APPT [[id number]] Order #: [id number] FUTURE Prescriptions as of 09/16/2020 Sig: OMEPRAZOLE [...] Encounter Status:Closed by EPIC, PRODUSER on 09/19/20 [facility] Summary Purpose Family History No Family [...] BE BASED ON THE PRIMARY CLINICAL RECORDS. [facility]. provides no warranty or guarantee of the accuracy or completeness of information in this document.
[2023-09-26] MEDS: Arthritis Pain Compound 60 CLICK TUBE TOPICAL (20:54)
[2023-09-26] MEDS: Atorvastatin Calcium 80 MG Tablet PO (20:55)
[2023-09-26] MEDS: Gabapentin 100 MG Capsule PO (20:57)
[2023-09-26] MEDS: Pramipexole Di-HCl 0.25 MG Tablet PO (20:58)
[2023-09-27 02:00] VITALS: BP 112/84; PULSE 77; RESP 18; TEMP 36.3; O2SAT 95
[2023-09-27 06:00] VITALS: BP 122/63; PULSE 76; RESP 16; TEMP 36.7; O2SAT 95
[2023-09-27] MEDS: Arthritis Pain Compound 60 CLICK TUBE TOPICAL ×3 (06:05→21:50)
[2023-09-27 07:00] LABS: Absolute Neutrophil Count 6.2 X10^3/uL (2.0-7.7); Basophil# 0.03 X10^3/uL; Basophil% 0.3 % (0-1); Eosinophil# 0.36 X10^3/uL; Eosinophils% 3.8 % (0-5); Hematocrit 33.9 % (37-47); Lymphocyte % 20.9 % (19-41); Mean Corp Hgb Conc 29.5 g/dL (32-36); Mean Corpuscular Hgb 22.9 pg (27.0-32.0); Mean Corpuscular Volume 77.8 fL (81-99); Monocyte# 0.94 X10^3/uL; Monocyte% 9.8 % (0-10); NRBC Flagged by Analyzer 0 % (0-5); Neutrophil # 6.21 X10^3/uL (2.7-7.7); Neutrophil % 64.8 % (47-70); Platelet Count 291 K/mm3 (150-450); RBC Distribution Width CV 18.5 % (11.6-14.6); RBC Distribution Width SD 51.8 fl (35.1-43.9); Red Blood Count 4.36 M/mm3 (4.2-5.4); White Blood Count 9.6 K/mm3 (4.4-11.0)
[2023-09-27 07:02] LABS: Erythrocyte Sedimentation Rate 34 mm/hr (0-30)
[2023-09-27 08:19] LABS: ALB/GLOB Ratio 0.7 RATIO (0.9-2.4); AST(SGOT) 20 U/L (15-37); Alanine Aminotransfer ALT/SGPT 21 U/L (13-56); Albumin, Serum 2.8 g/dL (3.2-5.0); Alkaline Phosphatase 67 U/L (45-117); Anion Gap 3 (5-15); BUN 13 mg/dL (7-18); BUN/Creat Ratio 17.2 RATIO (10-20); Calcium,Total 9.2 mg/dL (8.5-10.1); Chloride 105 mmol/L (98-107); Cholesterol 116 mg/dL (200); Creatinine, Serum 0.75 mg/dL (0.55-1.02); EST Glomerular Filtration Rate 79 mL/min (>60); Est Glom Filt Rate - Afr Amer 95 mL/min (>60); Estimated Creatinine Clearance 67.98 ml/min; Ferritin 68 ng/mL (8-252); Globulin 3.8 g/dL (2.2-4.2); Glucose 99 mg/dL (74-106); High Density Lipoprotein 38 mg/dL; Iron 25 ug/dL (50-170); Iron Binding Capacity,Total 342 ug/dL (250-450); Magnesium 2.2 mg/dL (1.6-2.6); PERCENT IRON SATURATION 7.3 % (15.0-55.0); Phosphorus 3.4 mg/dL (2.5-4.9); Potassium 3.5 mmol/L (3.5-5.1); Protein, Total 6.6 g/dL (6.4-8.2); Sodium Level 138 mmol/L (136-145); Thyroid Stim Hormone (TSH) 4.16 uIU/mL (0.358-3.74); Triglycerides 108 mg/dL; Very Low Density Lipoprotein 22 mg/dL (5-40)
[2023-09-27 10:00] VITALS: BP 118/77; PULSE 78; RESP 15; TEMP 36.6; O2SAT 96
--- NOTE | 2023-09-27 10:13 | PCM.PN.HOSP ---
Reason for Visit Reason for Visit: Diagnoses Iron deficiency anemia, unspecified (09/26/23) Hypokalemia (09/26/23) Cerebral infarction, unspecified (09/26/23) Pain in unspecified joint (09/26/23) Facial weakness (09/26/23) Dysarthria and anarthria (09/26/23) Subjective Subjective Patient admitted yesterday afternoon for concern for stroke. No acute events overnight. Patient seen at bedside this morning. Patient was sitting comfortably in bedside chair, in no acute distress. Patient presented with right-sided facial drooping, right-sided facial tingling and dysarthria. States that she continues to have dysarthria this morning and right-sided facial tingling, similar to yesterday. She otherwise was able to walk around the room without any issue this morning. She passed a bedside swallow test yesterday and was eating breakfast when I was in the room, denies any issues with swallowing. Patient lives at home alone, is independent at baseline and does everything for herself without issue. She is concerned about her ongoing neurosymptoms but otherwise denies any acute pain or discomfort. No other acute concerns morning. Objective Data Objective Data Vital Signs: Vital Signs Temp Pulse Resp BP Pulse Ox O2 Del Method 97.9 F 78 15 118/77 96 Room Air 09/27/23 10:00 09/27/23 10:00 09/27/23 10:00 09/27/23 10:00 09/27/23 10:00 09/27/23 10:00 Oxygen Delivery Method Room Air Weight: 103.7 kg Body Mass Index (BMI) 39.2 Intake & Output: Intake and Output for Last 24 Hours 09/25/23 09/26/23 09/27/23 23:59 23:59 23:59 Intake Total 1150 / 1410 260 / 260 Output Total 450 / 450 Balance 1150 / 1060 -190 / -190 Lab / Micro Data 09/27/23 06:30 09/27/23 06:30 Labs: Laboratory Results - last 24 hr 09/26/23 13:40: WBC 13.6 H, RBC 4.89, Hgb 11.3 L, Hct 38.1, MCV 77.9 L, MCH 23.1 L, MCHC 29.7 L, RDW Std Deviation 51.7 H, RDW Coeff of Karon 18.6 H, Plt Count 333, MPV 9.2, Immature Gran % (Auto) 0.700, Neut % (Auto) 74.3 H, Lymph % (Auto) 12.2 L, Harney % (Auto) 10.3 H, Eos % (Auto) 2.1, Baso % (Auto) 0.4, Absolute Neuts (auto) 10.1 H, Absolute Lymphs (auto) 1.66, Nucleated RBC % 0, PT 14.8, INR 1.2, APTT 35.8, Sodium 137, Potassium 3.1 L, Chloride 101, Carbon Dioxide 31.0, Anion Gap 5, BUN 20 H, Creatinine 0.88, Estim Creat Clear Calc 61.25, Est GFR (MDRD) Af Amer 80, Est GFR (MDRD) Non-Af 66, BUN/Creatinine Ratio 22.8 H, Glucose 111 H, Calcium 9.4, Troponin I High Sens 8 09/27/23 06:30: WBC 9.6, RBC 4.36, Hgb 10.0 L, Hct 33.9 L, MCV 77.8 L, MCH 22.9 L, MCHC 29.5 L, RDW Std Deviation 51.8 H, RDW Coeff of Karon 18.5 H, Plt Count 291, MPV 9.0, Immature Gran % (Auto) 0.400, Neut % (Auto) 64.8, Lymph % (Auto) 20.9, Harney % (Auto) 9.8, Eos % (Auto) 3.8, Baso % (Auto) 0.3, Absolute Neuts (auto) 6.2, Absolute Lymphs (auto) 2.00, Nucleated RBC % 0, ESR 34 H, Sodium 138, Potassium 3.5, Chloride 105, Carbon Dioxide 30.0, Anion Gap 3 L, BUN 13, Creatinine 0.75, Estim Creat Clear Calc 67.98, Est GFR (MDRD) Af Amer 95, Est GFR (MDRD) Non-Af 79, BUN/Creatinine Ratio 17.2, Glucose 99, Hemoglobin A1c 6.0 H, Calcium 9.2, Phosphorus 3.4, Magnesium 2.2, Iron 25 L, TIBC 342, Iron Saturation 7.3 L, Ferritin 68, Total Bilirubin 0.60, AST 20, ALT 21, Alkaline Phosphatase 67, C-React Prot Ext Range 56.70 H, Total Protein 6.6, Albumin 2.8 L, Globulin 3.8, Albumin/Globulin Ratio 0.7 L, Triglycerides 108, Cholesterol 116, LDL Cholesterol 56, VLDL Cholesterol 22, HDL Cholesterol 38 L, TSH 4.16 H Radiography Diagnostic Testing: Radiology Impression Brain CT 09/26/23 13:24 IMPRESSION: No acute intracranial process identified. Chronic involutional and white matter changes. Electronically Signed: Yvonne Florian MD at 13:36 EST , ADDENDUM: 09/26/23 1354 IMPRESSION: No acute intracranial process identified. Chronic involutional and white matter changes. N.B. : The above Results were Read Back by Yvonne Florian MD to Joshua Santiago MD, and understanding confirmed on 09/26/2023 13:47:48 (ET). Electronically Signed: Yvonne Florian MD at 13:36 EST , Head/Neck CTA 09/26/23 13:24 IMPRESSION: No evidence for significant stenosis or occlusion in the carotid or vertebral arteries of the neck. No evidence for large vessel occlusion in the [place]. Electronically Signed: Yvonne Florian MD at 14:03 EST , ADDENDUM: 09/26/23 1412 IMPRESSION: No evidence for significant stenosis or occlusion in the carotid or vertebral arteries of the neck. No evidence for large vessel occlusion in the [place]. N.B. : The above Results were Read Back by Yvonne Florian MD to Joshua Santiago MD, and understanding confirmed on 09/26/2023 14:05:28 (ET). Electronically Signed: Yvonne Florian MD at 14:03 EST , Chest X-Ray 09/26/23 14:45 IMPRESSION: No acute cardiopulmonary process identified. Electronically Signed: Yvonne Florian MD at 15:06 EST , Echocardiogram 09/26/23 15:18 Interpretation Summary The study was technically difficult. The left ventricular ejection fraction is 65 %. Nondiagnostic bubble contrast study for PFO because of suboptimal images. Mild tricuspid valve insufficiency. Trivial pericardial effusion. Ordering Physician: Mona Chery Referring Physician: Katiana Rayo Performed By: Kimberlee Rg RDCS Physical Exam Const alert, oriented x3 and no apparent distress Constitutional Narrative: Pleasant elderly female, obese, sitting comfortably in bedside chair, answering questions appropriately but does have dysarthria at times when speaking, otherwise in no acute distress. General Appearance: cooperative and comfortable HEENT normocephalic, head/scalp atraumatic, hearing grossly normal bilaterally, nasal mucous membranes and turbinates normal and moist oral mucous membranes HEENT Narrative: No right-sided facial droop noted. Eyes PERRL, EOMs intact bilaterally and conjunctivae normal Neck full ROM Chest inspection of chest normal Resp normal respiratory effort, normal air movement, no use of accessory muscles and clear to auscultation bilaterally Cardio regular rate, regular rhythm, no murmurs and peripheral pulses 2+ throughout GI normal to inspection, nondistended, normoactive bowel sounds, soft to palpation, non-tender and non-distended Back/Spine normal ROM Extremity normal to inspection, full ROM and no pedal edema Skin no rashes or lesions noted Neuro moves all extremities and no focal motor deficits Neuro Narrative: Mild dysarthria noted. Psych mental status grossly normal Assessment & Plan Assessment/Plan (1) 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: (2) Arthralgia: (3) Microcytic anemia: PLAN: Plan Patient is a 78-year-old female who presented to [facility] ED on 09/26/2023 with dysarthria, right facial droop and right facial numbness/tingling concerning for stroke. 1. Acute ischemic stroke ? Presented with symptoms of right facial droop, right facial numbness and tingling and dysarthria. Last known well was 8 PM on evening prior to admission, outside the window for TNK. ? Evaluated by stroke in ED who felt that she saw a stroke on CT of the brain with some stenotic area on her CTA head/neck. Given aspirin 325 mg and Plavix 300 mg on admit. ? Lipid panel showed total cholesterol 116, LDL 56, HDL 38. A1c 6.0%. Notably, patient's ESR is elevated at 34 and CRP is elevated at 56. ? Echo showed EF 65%, nondiagnostic bubble contrast today for PFO because of suboptimal images, no significant valvular disease. ? MRI brain unfortunately not able to be done to this point as it is unclear if patient's pacemaker is MRI compatible. ? Neurology following, appreciate further recommendations. ? PT/OT/case management following. ? Continue baby aspirin, Plavix, statin. Will defer to neurology on timing of restarting home blood pressure medications. 2. Bilateral shoulder pain ? ESR and CRP elevated as noted above. These were checked to evaluate for polymyalgia rheumatica. Appreciate further input from neurology on significance of elevated inflammatory markers as noted above. PT/OT/case management following. 3. Mild microcytic anemia ? Hemoglobin 11.3, MCV 77 on admit. Iron studies consistent with iron deficiency anemia. Will start patient on p.o. iron supplement every other day. 4. Hypokalemia ? Potassium 3.1 on admit, magnesium within normal limits. Replete potassium as needed. Chronic medical conditions: ? Obesity: BMI 39 on admit. Complicates hospital course, care, recovery and prognosis. ? History of migraine headache: Hold home sumatriptan. ? Hypertension: Holding home amlodipine, hydrochlorothiazide and metoprolol to allow for permissive hypertension for now. Will await neurology recommendations and restart home medications when able. ? Hyperlipidemia: Lipid panel on admit as noted above. Was on rosuvastatin 10 mg daily at home, started on atorvastatin 80 mg on admit. Will decrease to atorvastatin 40 mg daily on 09/26 and continue this dose on discharge. ? GERD: Continue home PPI. ? Neuropathy: Continue home gabapentin. ? Restless leg syndrome: Continue home Requip. ? Depression: Continue home sertraline. DVT prophylaxis: Lovenox CODE STATUS: DNR CCA, DNI Expected disposition: TBD Total clinical time spent by myself addressing the patient's medical issues, reviewing all the data, and collaborating with patient's care team: 35 minutes. Charges/Coding Visit Charges Inpatient E&M: 26857 Subs Hosp L2
--- NOTE | 2023-09-27 10:20 | CASEMGMT ---
RN [facility] Face to Face with patient for initial transition planning/care coordination assessment. RN CM introduced self and role at [facility]. Patient sitting in chair, alert and oriented, friends at bedside. Patient willing to participate in assessment and is able to answer all questions appropriately. Care providers, pharmacy, and demographics verified. PCP: Girma Specialists: [facility] Insurance: [employer] [facility] Prescription Benefit: yes Living Will/HPOA: yes, daughter Dulce Maria Schwab LNOK: daughter, friends Living Arrangements: Patient lives alone in a first floor apartment with no steps to enter. Patient is independent at home. Transportation: friends DME/HHC: Patient has shower chair, grab bars, rollator, and medical alert at home. Patient denies previous SNF. Patient has had [facility] HHC in the past. Patient is active with Waiver program with [facility]. Patient wishes to discharge home, will monitor progress with therapy for HHC vs SNF. Patient states she has no further needs or concerns at this time. CM to follow for discharge planning needs that may arise. Disposition Plan: TBD, anticipate HHC vs SNF pending progress with therapy Mimi THOMASON, RN, CM
[2023-09-27] MEDS: Gabapentin 100 MG Capsule PO ×2 (11:04→21:52)
[2023-09-27] MEDS: Pantoprazole Sodium 40 MG Tablet PO (11:04)
[2023-09-27] MEDS: Clopidogrel Bisulfate 75 MG Tablet PO (11:04)
[2023-09-27] MEDS: Enoxaparin 40 MG/0.4 ML Syringe SC (11:04)
[2023-09-27] MEDS: Aspirin 81 MG TAB.CHEW PO (11:04)
[2023-09-27] MEDS: Sertraline 100 MG Tablet 200 MG PO (11:05)
[2023-09-27] MEDS: Cholecalciferol (VIT D3) 25 MCG TABLET (1,000 UNITS) 100 MCG PO (11:05)
--- NOTE | 2023-09-27 12:35 | CON.PCM.NE_ITS ---
Assessment and Plan: Neuro Assessment/Plan #acute ischemic stroke-etiology is cryptogenic at this point -ASA/ Plavix x 21 days. Afterwards will be asa 81 monotherapy -lipitor 40 -30 cardiac event monitor upon discharge -outpatient follow up with neurology in 4-6 weeks from discharge, outpatient follow up with PCP -obtain repeat head CTH today to see if now stroke is apparent -MRI brain: unable to have a brain MRI due to stimulator -LDL 56/Hba1c 6.0 -CTA head/neck: no significant stenosis -TTE: unremarkalbe -BP goal normotension -fu on TSH and consider sending UA given recent UTI and elevated inflammatory markers to ensure properly treated -PT/OT/MATERIALS DIRECTOR HPI Consult Data Date of Consult: 09/27/23 HPI Narrative HPI Narrative: 78 yo F? w a PMH of arthritis, migraine, TIA, GERD, asthma, depression, RLS, HTN, HLD, neuropathy presented on 09/25 with dysarthria. Lives alone. LKW 8pm on 09/24. No deficits at baseline besides neuropathy. Noted speech was noted garbled. Upon arrival, R facial droop, dysarthria, and R sided numbness. ?lnitial vitals notable for blood pressure was 121/68, respiratory was 22 and oxygen saturations are 96 to 98% on room air. Seen by stroke team, no lytics or EVT. No LVO on CTA. Started ASA/Plavix. [facility] Medical History (Updated 09/26/23 @ 15:[address] Mona Chery, DO) Abdominal pain Anxiety Asthma Chronic back pain Chronic bronchitis Chronic headaches Confusion Dark stools DDD (degenerative disc disease) Depression Essential (primary) hypertension Frequent falls Generalized weakness GERD (gastroesophageal reflux disease) H/O emotional problems Hyperlipidemia Hypokalemia IBS (irritable bowel syndrome) Insomnia Iron deficiency anemia Left-sided chest wall pain Localized swelling of chest wall Migraines Neuropathy Non-smoker Obesity Osteoarthritis Osteoarthritis of left knee Overactive bladder Pneumonia Rheumatoid arthritis Stroke/cerebrovascular accident TIA (transient ischemic attack) Vision problems Vitamin D deficiency Home Medications acetaminophen 500 mg tablet 1,000 mg (2 x 500 mg) PO Q6H PRN PRN Mild Pain (1-3 ) #90 tabs 02/07/19 [Rx Last Taken 08/12/23 16:15 1,000 mg] cholecalciferol (vitamin D3) 50 mcg (2,000 unit) capsule 4,000 unit PO DAILY SUPPLEMENT 09/10/19 [History Last Taken 09/24/20] biotin 2,500 mcg capsule 1 cap PO DAILY supplement 09/24/20 [History Last Taken 09/24/20] multivitamin with minerals 1 tab PO DAILY supplement 09/24/20 [History Last Taken 09/24/20] sumatriptan succinate 25 mg tablet See Rx Instructions PO .COMPLEX #14 tabs 06/14/22 [Rx Last Taken Unknown] sumatriptan succinate 6 mg/0.5 mL subcutaneous pen injector (Imitrex STATdose Pen) 6 mg (0.5 mL) subcut Q1-4H PRN migraine headache #1 mL 06/14/22 [Rx Last Taken Unknown] side rails for bed #1 ea 07/15/22 [Rx Last Taken Unknown] walker (Ultra-Light Rollator misc) #1 ea 08/23/22 [Rx Last Taken Unknown] ropinirole 0.5 mg tablet 0.5 mg PO QHS restless legs #90 tabs 11/12/22 [Rx Last Taken Unknown] sertraline 100 mg tablet 200 mg (2 x 100 mg) PO DAILY mood #180 tabs 11/12/22 [Rx Last Taken Unknown] potassium chloride 20 mEq tablet,extended release 20 meq PO DAILY supplement #90 tabs 02/15/23 [Rx Last Taken Unknown] rosuvastatin 10 mg tablet 10 mg PO QHS CHOLESTEROL #90 tabs 02/15/23 [Rx Last Taken Unknown] omeprazole 40 mg capsule,delayed release 40 mg PO DAILY stomach #90 caps 02/21/23 [Rx Last Taken Unknown] hydrochlorothiazide 25 mg tablet 25 mg PO DAILY water pill #90 tabs 07/29/23 [Rx Last Taken Unknown] amlodipine 2.5 mg tablet 2.5 mg PO DAILY blood pressure #30 tabs 08/22/23 [Rx Last Taken Unknown] metoprolol succinate 50 mg tablet,extended release 24 hr 50 mg PO BID HTN #90 tabs 08/31/23 [Rx Last Taken Unknown] gabapentin 100 mg capsule 100 mg PO Q12H neuropathy 09/26/23 [History Last Taken Unknown] Allergy/AdvReac Type Severity Reaction Status Date / Time adhesive tape Allergy Severe Area Sore Verified 09/26/23 13:53 cefpodoxime [From Vantin] Allergy Unknown Unknown Verified 09/26/23 13:53 codeine Allergy Unknown Unknown Verified 09/26/23 13:53 metronidazole [From Flagyl] Allergy Unknown Unknown Verified 09/26/23 13:53 sulfamethoxazole Allergy Unknown Unknown Verified 09/26/23 13:53 [From Bactrim] trimethoprim [From Bactrim] Allergy Unknown Unknown Verified 09/26/23 13:53 Sulfa (Sulfonamide Allergy Unknown Verified 09/26/23 13:53 Antibiotics) Family History Sister Anesthesia complication Breast cancer Hypertension Cancer Thyroid, rectal, kidney Thyroid disorder Diabetes Mother Arthritis Pancreatic cancer Depression Diabetes Father Colon cancer Hypertension CVA (cerebral vascular accident) Sister Cancer rectal/kidney/medullary Thyroid cancer Surgical History (Updated 09/26/23 @ 15:25 by Nenita Baker) History of appendectomy History of back surgery History of History of cholecystectomy History of gastric surgery History of hernia repair History of hysterectomy History of left heart catheterization (10/14/20) History of left knee replacement History of right knee joint replacement 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 History of total right knee replacement Hx of breast reduction, elective Social History (Updated 09/26/23 @ 15:[address] Mona Chery DO) household members: none housing: apartment current occupational status: retired Smoking Status: Never smoker alcohol intake: never substance use type: does not use what type of physical activity do you participate in: none Vital Signs Vital Signs Vital Signs: 09/26/23 13:39 09/26/23 13:45 09/26/23 13:45 Temperature 98.2 F Temperature Source Temporal Pulse Rate 90 75 Pulse Strength Respiratory Rate 22 H 20 H Respiratory Effort Respiratory Depth Respiratory Pattern Blood Pressure 121/68 H 121/68 H Blood Pressure Mean 85 85 Blood Pressure Source Blood Pressure Position Blood Pressure Location Pulse Ox 96 98 98 Oxygen Delivery Method Room Air Room Air 09/26/23 14:15 09/26/23 15:26 09/26/23 15:33 Temperature 98.1 F 97.5 F L Temperature Source Oral Pulse Rate 78 70 86 Pulse Strength Respiratory Rate 18 18 16 Respiratory Effort Respiratory Depth Respiratory Pattern Blood Pressure 139/92 H 126/59 H 143/81 H Blood Pressure Mean 107 81 101 Blood Pressure Source Monitor Blood Pressure Position Semi-Fowlers Blood Pressure Location Left Arm Pulse Ox 96 97 97 Oxygen Delivery Method Room Air Room Air 09/26/23 17:14 09/26/23 18:19 09/26/23 19:16 Temperature 98.4 F Temperature Source Oral Pulse Rate 79 Pulse Strength Respiratory Rate 14 Respiratory Effort Normal Non-Labored Respiratory Depth Normal Respiratory Pattern Normal Blood Pressure 117/64 Blood Pressure Mean 81 Blood Pressure Source Monitor Blood Pressure Position Semi-Fowlers Blood Pressure Location Left Arm Pulse Ox 97 98 Oxygen Delivery Method Room Air Room Air Room Air 09/26/23 21:46 09/26/23 21:51 09/26/23 22:00 Temperature 98 F Temperature Source Temporal Pulse Rate 78 Pulse Strength Normal (2+) Respiratory Rate 16 Respiratory Effort Normal Non-Labored Respiratory Depth Normal Respiratory Pattern Normal Blood Pressure 109/63 Blood Pressure Mean 78 Blood Pressure Source Monitor Blood Pressure Position Semi-Fowlers Blood Pressure Location Left Arm Pulse Ox 98 Oxygen Delivery Method Room Air Room Air 09/26/23 20:25 09/27/23 02:00 09/27/23 02:24 Temperature 97.4 F L Temperature Source Temporal Pulse Rate 77 Pulse Strength Respiratory Rate 18 Respiratory Effort Normal Non-Labored Respiratory Depth Normal Respiratory Pattern Normal Blood Pressure 112/84 H Blood Pressure Mean 93 Blood Pressure Source Monitor Blood Pressure Position Semi-Fowlers Blood Pressure Location Left Arm Pulse Ox 95 95 Oxygen Delivery Method Room Air Room Air Room Air 09/27/23 06:00 09/27/23 09:07 09/27/23 10:00 Temperature 98.1 F 97.9 F Temperature Source Oral Temporal Pulse Rate 76 78 Pulse Strength Normal (2+) Respiratory Rate 16 15 Respiratory Effort Respiratory Depth Respiratory Pattern Blood Pressure 122/63 H 118/77 Blood Pressure Mean 82 90 Blood Pressure Source Monitor Monitor Blood Pressure Position Semi-Fowlers Sitting Blood Pressure Location Right Arm Left Arm Pulse Ox 95 96 Oxygen Delivery Method Room Air Room Air 09/27/23 08:45 Temperature Temperature Source Pulse Rate Pulse Strength Respiratory Rate Respiratory Effort Normal Non-Labored Respiratory Depth Normal Respiratory Pattern Normal Blood Pressure Blood Pressure Mean Blood Pressure Source Blood Pressure Position Blood Pressure Location Pulse Ox Oxygen Delivery Method Room Air Weight Weight: 103.7 kg Body Mass Index (BMI) 39.2 EEG Results Procedure Details EEG Procedure Details: VANESSA KLINE is a 78 year old F with a past medical history of , who presents for evaluation of Electroencephalogram on DATE at TIME Physical Exam Narrative Exam MS: awake, alert, oriented x 3, follows commands, able to name, no aphasia, moderately dysarthric CN: VFF, EOMI, R UMN facial droop, nml facial sensation M: ?Antigravity in all extremities, no drift S: decreased to LT on L C: No dysmetria Lab / Micro Data 09/27/23 06:30 09/27/23 06:30 Labs: Laboratory Results - last 24 hr 09/26/23 13:40: WBC 13.6 H, RBC 4.89, Hgb 11.3 L, Hct 38.1, MCV 77.9 L, MCH 23.1 L, MCHC 29.7 L, RDW Std Deviation 51.7 H, RDW Coeff of Karon 18.6 H, Plt Count 333, MPV 9.2, Immature Gran % (Auto) 0.700, Neut % (Auto) 74.3 H, Lymph % (Auto) 12.2 L, [place] % (Auto) 10.3 H, Eos % (Auto) 2.1, Baso % (Auto) 0.4, Absolute Neuts (auto) 10.1 H, Absolute Lymphs (auto) 1.66, Nucleated RBC % 0, PT 14.8, INR 1.2, APTT 35.8, Sodium 137, Potassium 3.1 L, Chloride 101, Carbon Dioxide 31.0, Anion Gap 5, BUN 20 H, Creatinine 0.88, Estim Creat Clear Calc 61.25, Est GFR (MDRD) Af Amer 80, Est GFR (MDRD) Non-Af 66, BUN/Creatinine Ratio 22.8 H, Glucose 111 H, Calcium 9.4, Troponin I High Sens 8 09/27/23 06:30: WBC 9.6, RBC 4.36, Hgb 10.0 L, Hct 33.9 L, MCV 77.8 L, MCH 22.9 L, MCHC 29.5 L, RDW Std Deviation 51.8 H, RDW Coeff of Karon 18.5 H, Plt Count 291, MPV 9.0, Immature Gran % (Auto) 0.400, Neut % (Auto) 64.8, Lymph % (Auto) 20.9, [place] % (Auto) 9.8, Eos % (Auto) 3.8, Baso % (Auto) 0.3, Absolute Neuts (auto) 6.2, Absolute Lymphs (auto) 2.00, Nucleated RBC % 0, ESR 34 H, Sodium 138, Potassium 3.5, Chloride 105, Carbon Dioxide 30.0, Anion Gap 3 L, BUN 13, Creatinine 0.75, Estim Creat Clear Calc 67.98, Est GFR (MDRD) Af Amer 95, Est GFR (MDRD) Non-Af 79, BUN/Creatinine Ratio 17.2, Glucose 99, Hemoglobin A1c 6.0 H, Calcium 9.2, Phosphorus 3.4, Magnesium 2.2, Iron 25 L, TIBC 342, Iron Saturation 7.3 L, Ferritin 68, Total Bilirubin 0.60, AST 20, ALT 21, Alkaline Phosphatase 67, C-React Prot Ext Range 56.70 H, Total Protein 6.6, Albumin 2.8 L , Globulin 3.8, Albumin/Globulin Ratio 0.7 L, Triglycerides 108, Cholesterol 116, LDL Cholesterol 56, VLDL Cholesterol 22, HDL Cholesterol 38 L, TSH 4.16 H Imaging Radiology Impression Brain CT 09/26/23 13:24 IMPRESSION: No acute intracranial process identified. Chronic involutional and white matter changes. Electronically Signed: Yvonne Florian MD at 13:36 EST , ADDENDUM: 09/26/23 1354 IMPRESSION: No acute intracranial process identified. Chronic involutional and white matter changes. N.B. : The above Results were Read Back by Yvonne Florian MD to Joshua Santiago MD, and understanding confirmed on 09/26/2023 13:47:48 (ET). Electronically Signed: Yvonne Florian MD at 13:36 EST , Head/Neck CTA 09/26/23 13:24 IMPRESSION: No evidence for significant stenosis or occlusion in the carotid or vertebral arteries of the neck. No evidence for large vessel occlusion in the [place]. Electronically Signed: Yvonne Florian MD at 14:03 EST , ADDENDUM: 09/26/23 1412 IMPRESSION: No evidence for significant stenosis or occlusion in the carotid or vertebral arteries of the neck. No evidence for large vessel occlusion in the [place]. N.B. : The above Results were Read Back by Yvonne Florian MD to Joshua Santiago MD, and understanding confirmed on 09/26/2023 14:05:28 (ET). Electronically Signed: Yvonne Florian MD at 14:03 EST , Chest X-Ray 09/26/23 14:45 IMPRESSION: No acute cardiopulmonary process identified. Electronically Signed: Yvonne Florian MD at 15:06 EST , Echocardiogram 09/26/23 15:18 Interpretation Summary The study was technically difficult. The left ventricular ejection fraction is 65 %. Nondiagnostic bubble contrast study for PFO because of suboptimal images. Mild tricuspid valve insufficiency. Trivial pericardial effusion. Ordering Physician: Mona Chery Referring Physician: Katiana Rayo Performed By: Kimberlee Rg RDCS Active Medications Active Medications Active Medications: Current Medications Generic Name Dose Route Start Last Admin Trade Name Freq PRN Reason Stop Dose Admin Acetaminophen 650 mg 09/26/23 15:24 Acetaminophen 325 Mg Tablet PO Q6H PRN PRN Pain 1-10 Or Fever >100.7 Aspirin 81 mg 09/27/23 08:00 09/27/23 11:04 Aspirin 81 Mg Tab.Chew PO 81 mg BREAKFAST KARO Administration Atorvastatin Calcium 80 mg 09/26/23 22:00 09/26/23 20:55 Atorvastatin Calcium 80 Mg Tablet PO 80 mg QHS KARO Administration Cholecalciferol 100 mcg 09/27/23 10:00 09/27/23 11:05 Cholecalciferol (Vit D3) 25 Mcg Tablet (1,000 Units) PO 100 mcg DAILY KARO Administration Clopidogrel Bisulfate 75 mg 09/27/23 10:00 09/27/23 11:04 Clopidogrel Bisulfate 75 Mg Tablet PO 75 mg DAILY KARO Administration Compound Med 0 click 09/26/23 22:00 09/27/23 06:05 Arthritis Pain Compound 60 Click Tube TOPICAL 1 click TID KARO Administration Protocol Enoxaparin Sodium 40 mg 09/27/23 10:00 09/27/23 11:04 Enoxaparin 40 Mg/0.4 Ml Syringe SC 40 mg DAILY KARO Administration Gabapentin 100 mg 09/26/23 22:00 09/27/23 11:04 Gabapentin 100 Mg Capsule PO 100 mg Q12 KARO Administration Hydralazine HCl 5 mg 09/26/23 15:24 Hydralazine 20 Mg/Ml Vial IV Q30M PRN to maintain BP goals Sodium Chloride 250 mls @ 15 mls/hr 09/26/23 15:16 IV .[id number] PRN Additional IVPB Infusion Sodium Chloride 250 mls @ 15 mls/hr 09/26/23 15:16 IV .[id number] PRN Saline Flush Labetalol HCl 10 - 20 mg 09/26/23 15:24 Labetalol (Prefilled) 20 Mg/4 Ml IV Q10M PRN PRN to Maintain BP Goals Melatonin 3 mg 09/26/23 15:24 Melatonin 3 Mg Tablet PO QHS PRN PRN INSOMNIA Ondansetron HCl 4 mg 09/26/23 15:24 Ondansetron 4 Mg/2 Ml Vial IV Q8H PRN PRN NAUSEA/VOMITING Pantoprazole Sodium 40 mg 09/27/23 10:00 09/27/23 11:04 Pantoprazole Sodium 40 Mg Tablet PO 40 mg DAILY KARO Administration Pramipexole Dihydrochloride 0.25 mg 09/26/23 20:00 09/26/23 20:58 Pramipexole Di-Hcl 0.25 Mg Tablet PO 0.25 mg 2000 KARO Administration Senna/Docusate Sodium 2 tablet 09/26/23 15:24 Senna/Docusate Sodium 1 Tablet PO BID PRN PRN Constipation Sertraline HCl 200 mg 09/27/23 10:00 09/27/23 11:05 Sertraline 100 Mg Tablet PO 200 mg DAILY KARO Administration Sodium Chloride 10 - 40 ml 09/26/23 15:16 0.9% Saline Lock 10 Ml Syringe IV UD PRN SALINE FLUSH
--- NOTE | 2023-09-27 13:09 | CASEMGMT ---
Discharge Planning A list of?SNF providers including quality and resource use data and consistent with the patient's preferred geographic region, medical needs, and insurance network was created in [facility] Guide.? This list was provided to the SW. Winsome Lyon Discharge Planning Asst.
--- NOTE | 2023-09-27 13:31 | CASEMGMT ---
ANA MARÍA VICTORIA reviewed progress with therapy. Patient required min assist x1 with therapy. ANA MARÍA CM in to discuss progress with therapy and needs at discharge. Patient is agreeable to start process for possible SNF. SNF list provided to patient to review. ANA MARÍA VICTORIA discussed if patient improves prior to discharge, plan could change to home with [facility]. Patient voiced understanding. Patient had no further questions or concerns.
[2023-09-27 14:00] VITALS: BP 124/74; PULSE 83; RESP 15; TEMP 36.9; O2SAT 94
--- NOTE | 2023-09-27 15:27 | CASEMGMT ---
SW completed a PHQ 9 with patient as patient had a Stroke. Patient scored a 2 which indicates minimal depression. Patient declined any need for counseling resources. Candace MOY
--- NOTE | 2023-09-27 15:31 | CASEMGMT ---
SW met with patient. Introduced self and role at [facility]. SW discussed d/c plan. Patient is reluctant to go to a senior care. SW explained if patient does better tomorrow the referral can be canceled. Patient's first choice is [facility]. SW asked Winsome to make a referral to [facility]. Candace Temple CORRECTIONAL MEDICINE PHYSICIAN [place]
--- NOTE | 2023-09-27 16:09 | CASEMGMT ---
Addendum entered by Winsome Lyon 09/27/23 16:47: [facility] has accepted referral. Winsome Lyon, Discharge Planning Asst. Original Note: Discharge Planning Referral sent to [facility] via [facility]. Winsome Lyon, Discharge Planning Asst.
[2023-09-27 16:54] VITALS: BMI 39.2
[2023-09-27 18:00] VITALS: BP 112/77; PULSE 84; RESP 14; TEMP 36.6; O2SAT 95
[2023-09-27 21:46] VITALS: BP 112/65; PULSE 84; RESP 18; TEMP 36.9; O2SAT 97
[2023-09-27] MEDS: Atorvastatin Calcium 80 MG Tablet PO (21:50)
[2023-09-27] MEDS: Pramipexole Di-HCl 0.25 MG Tablet PO (21:50)
[2023-09-28] VITALS (7 sets, daily range): BP systolic 114–134; BP diastolic 64–87; PULSE 81–90; RESP 14–18; TEMP 36.4–37; O2SAT 93–97; BMI 39.2
[2023-09-28] MEDS: MELATONIN 3 MG TABLET PO (00:07)
[2023-09-28] MEDS: Arthritis Pain Compound 60 CLICK TUBE TOPICAL ×2 (05:54→16:29)
--- NOTE | 2023-09-28 06:00 | CT_ITS ---
EXAM: CT HEAD WITHOUT INTRAVENOUS CONTRAST CLINICAL INDICATION: reevaluate for CVA TECHNIQUE: Multiple axial images were obtained of the head without intravenous contrast. This CT exam was performed using one or more of the following dose reduction techniques: automated exposure control, adjustment of the mA and/or kV according to patient size, and/or use of iterative reconstruction technique. RADIATION DOSE: CTDIvol = 44.99 mGy, DLP = 846.73 mGy-cm COMPARISON: Head CT 09/26/2023 FINDINGS: BRAIN AND EXTRA-AXIAL SPACES: Diffuse cerebral volume loss. Periventricular small vessel ischemic changes. No intra- or extra-axial hemorrhage. No intracranial mass or mass effect. Posterior fossa structures are unremarkable. No hydrocephalus. Basal cisterns are patent. BONES/JOINTS: Unremarkable. No discrete lytic or blastic abnormalities. VASCULATURE: Vascular calcifications. SINUSES: Unremarkable as visualized. Clear. MASTOID AIR CELLS: Unremarkable. Clear. ORBITS: Visualized globes, extraocular muscles, optic nerves and retrobulbar fat appear unremarkable. ASPECTS: 10 CT/Brain/Head without Contrast IMPRESSION: 1. No acute intracranial abnormalities. 2. Age-related changes. Electronically Signed: Tay Caruso MD at 5:33 EST ,
--- NOTE | 2023-09-28 08:46 | CASEMGMT ---
GLENN received a voice mail from patient's senior case manager, Amy with [facility]. GLENN called Amy back and left her a voice mail letting her know patient may go to [facility] unless she does better with therapy today. GLENN will let her now about final plan. Candace Temple INVENTORY CLERK [place]
[2023-09-28] MEDS: Pantoprazole Sodium 40 MG Tablet PO (09:34)
[2023-09-28] MEDS: Clopidogrel Bisulfate 75 MG Tablet PO (09:34)
[2023-09-28] MEDS: Aspirin 81 MG TAB.CHEW PO (09:34)
[2023-09-28] MEDS: Enoxaparin 40 MG/0.4 ML Syringe SC (09:34)
[2023-09-28] MEDS: Cholecalciferol (VIT D3) 25 MCG TABLET (1,000 UNITS) 100 MCG PO (09:35)
[2023-09-28] MEDS: Sertraline 100 MG Tablet 200 MG PO (09:35)
[2023-09-28] MEDS: Gabapentin 100 MG Capsule PO (09:36)
[2023-09-28] MEDS: Ferrous Sulfate 325 MG Tablet PO (11:04)
--- NOTE | 2023-09-28 11:43 | CASEMGMT ---
SW met with patient. Re-introduced self. Patient was agreeable to go to [facility] for short term rehab. SW asked [facility] to please start the pre-cert. Plan: d/c to [facility] pending insurance approval. Candace MOY
--- NOTE | 2023-09-28 13:21 | PCM.PN.HOSP ---
Reason for Visit Reason for Visit: Diagnoses Iron deficiency anemia, unspecified (09/26/23) Hypokalemia (09/26/23) Cerebral infarction, unspecified (09/26/23) Pain in unspecified joint (09/26/23) Facial weakness (09/26/23) Dysarthria and anarthria (09/26/23) Objective Data Objective Data Vital Signs: Vital Signs Temp Pulse Resp BP Pulse Ox O2 Del Method 97.6 F L 81 14 121/73 H 96 Room Air 09/28/23 10:46 09/28/23 10:46 09/28/23 10:46 09/28/23 10:46 09/28/23 10:46 09/28/23 10:46 Oxygen Delivery Method Room Air Weight: 103.7 kg Body Mass Index (BMI) 39.2 Intake & Output: Intake and Output for Last 24 Hours 09/26/23 09/27/23 09/28/23 23:59 23:59 23:59 Intake Total 1150 / 1410 1155 / 1155 Output Total 450 / 450 Balance 1150 / 1060 705 / 705 Lab / Micro Data 09/27/23 06:30 09/27/23 06:30 Radiography Diagnostic Testing: Radiology Impression Brain CT 09/28/23 06:00 IMPRESSION: 1. No acute intracranial abnormalities. 2. Age-related changes. Electronically Signed: Tay Caruso MD at 5:33 EST ,
--- NOTE | 2023-09-28 14:34 | CASEMGMT ---
Insurance approved patient to go to [facility]. SW notified physician and he will send patient. SW notified patient and [facility] that patient will go today. Plan: d/c to [facility] under skilled level of care. Candace MOY
--- NOTE | 2023-09-28 14:42 | PCM.TXEXTCAR ---
Diet Diet Order/Speech Therapy: 09/26/23 17:44 Diet: Cardiac - Heart Healthy Food consistency:: Regular Liquid Consistency:: Regular/Thin Is pt able to select menu?: Yes Routine Orders/Code Status Code Status: DNRCC-A (DO NOT INTUBATE) Therapies Weight Bearing: Full weight bearing Physical Therapy: Eval and Treat Occupational Therapy: Eval and Treat Problem/Diagnosis (1) 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: Status: Acute Code(s): I63.9 - Cerebral infarction, unspecified; R47.1 - Dysarthria and anarthria (2) Arthralgia: Status: Acute Code(s): M25.50 - Pain in unspecified joint (3) Microcytic anemia: Status: Acute Code(s): D50.9 - Iron deficiency anemia, unspecified Plan Patient is a 78-year-old female who presented to [facility] ED on 09/26/2023 with dysarthria, right facial droop and right facial numbness/tingling concerning for stroke. Hospital course as noted below. Patient discharged to care home facility in stable condition on 09/27. 1. Acute ischemic stroke ? Presented with symptoms of right facial droop, right facial numbness and tingling and dysarthria. Last known well was 8 PM on evening prior to admission, outside the window for TNK. ? Evaluated by stroke in ED who felt that she saw a stroke on CT of the brain with some stenotic area on her CTA head/neck. Given aspirin 325 mg and Plavix 300 mg on admit. ? Lipid panel showed total cholesterol 116, LDL 56, HDL 38. A1c 6.0%. ESR and CRP mildly elevated. ? Echo showed EF 65%, nondiagnostic bubble contrast today for PFO because of suboptimal images, no significant valvular disease. ? MRI brain unfortunately not able to be done to this point as it is unclear if patient's pacemaker is MRI compatible. ? Repeat CT head without contrast on 09/27 showed no acute intracranial abnormalities, only chronic age-related changes. ? Neurology followed. Recommended taking aspirin and Plavix both for 21 days, followed by baby aspirin monotherapy. Increased to atorvastatin 40 mg daily. 30-day cardiac event monitor ordered on discharge. Outpatient follow-up with neurology in 4 to 6 weeks. ? PT/OT/case management followed. Patient discharged to care home facility in stable condition on 09/27. ? Patient notably was normotensive during hospitalization off of home amlodipine 2.5 mg daily, Toprol 50 mg twice daily, hydrochlorothiazide 25 mg daily. Discontinued these medications on discharge, can consider adding back in the outpatient setting as needed. 2. Bilateral shoulder pain ? ESR and CRP mildly elevated elevated as noted above. Unclear if this could be some degree of polymyalgia rheumatica, recommend outpatient follow-up with PCP and/or rheumatology for further evaluation. PT/OT followed as above. 3. Mild microcytic anemia ? Hemoglobin 11.3, MCV 77 on admit. Iron studies consistent with iron deficiency anemia. Started patient on p.o. iron supplement every other day. Hemoglobin remained stable during hospitalization. 4. Hypokalemia ? Potassium 3.1 on admit, magnesium within normal limits. Repleted as needed. Chronic medical conditions: ? Obesity: BMI 39 on admit. Complicates hospital course, care, recovery and prognosis. ? History of migraine headache: Hold home sumatriptan. ? Hypertension: Held home medications on discharge as noted above. ? Hyperlipidemia: Lipid panel on admit as noted above. Was on rosuvastatin 10 mg daily at home, started on atorvastatin 80 mg on admit. Decreased to atorvastatin 40 mg daily on 09/26 and will continue this dose on discharge. ? GERD: Continue home PPI. ? Neuropathy: Continue home gabapentin. ? Restless leg syndrome: Continue home Requip. ? Depression: Continue home sertraline. Total clinical time spent by myself addressing the patient's medical issues, reviewing all the data, and collaborating with patient's care team: 35 minutes. Allergies/Procedures Done in Hospital Allergies adhesive tape Allergy (Severe, Verified 09/26/23 13:53) Area Sore cefpodoxime [From Vantin] Allergy (Unknown, Verified 09/26/23 13:53) Unknown codeine Allergy (Unknown, Verified 09/26/23 13:53) Unknown HALLUCINATIONS metronidazole [From Flagyl] Allergy (Unknown, Verified 09/26/23 13:53) Unknown sulfamethoxazole [From Bactrim] Allergy (Unknown, Verified 09/26/23 13:53) Unknown trimethoprim [From Bactrim] Allergy (Unknown, Verified 09/26/23 13:53) Unknown Sulfa (Sulfonamide Antibiotics) Allergy (Verified 09/26/23 13:53) Unknown Procedures: EKG, Transthoracic Echo and - (CT head without contrast x 2, CTA head/neck, chest x-ray) Type of Care/Length of Stay Estimated LOS: Convalescent Care Less Than 30 days Type of Care Needed: Skilled Rehab Potential: Fair Prognosis: Fair Additional Orders/Day of Discharge H&P will serve as current which was dated: 09/26/23 Day of Discharge: 09/28/23 Dietary and Speech Recommendations Dietitian Recommendations/Changes: cardiac diet, ONS if PO intake at meals fails Discharge Plan Admission Admit Date/Time: 09/26/23 15:10 Attending Provider: Hima Zimmer Primary Care Provider: Katiana Rayo Consulting Providers: Nav Harding; Sonal Vivar; Parul Lagos; Beena Wagner; Leeann Killian; Mandeep Hannon; Pamella Carl; Moustapha Tran; Benji Miranda; Shruti Spencer; Eric Renee; Love Handy; Addie Guardado; Trisha Burden; Ha Baxter; Sukhdev Ashraf; Kevin Gonzalez; Collette Chery; Will Locke; Mona Chery Discharge Orders/Prescriptions Prescriptions: No Action cholecalciferol (vitamin D3) 50 mcg (2,000 unit) capsule 4,000 unit PO DAILY amlodipine 2.5 mg tablet 2.5 mg PO DAILY Qty: 30 1RF multivitamin with minerals 1 EACH tablet 1 tab PO DAILY biotin 2,500 MCG capsule 1 cap PO DAILY gabapentin 100 mg capsule 100 mg PO Q12H Rx Instructions: Take one capsule (100 mg) each PM for one week, then increase to one capsule (100 mg) twice daily. acetaminophen 500 mg tablet 1,000 mg PO Q6H PRN PRN (Reason: Mild Pain (1-310)) Qty: 90 0RF sumatriptan succinate 25 mg tablet See Rx Instructions PO .COMPLEX Qty: 14 1RF Rx Instructions: take 1 tab at onset of headache; if no relief may repeat 1 tab after at least 2 hrs; max = 4 tabs/24 hr PO sumatriptan succinate [Imitrex STATdose Pen] 6 mg/0.5 mL pen injector 6 mg subcut Q1-4H PRN (Reason: migraine headache) Qty: 1 1RF Rx Instructions: do not exceed 2 doses in a 24 hour period (DME) side rails for bed 0 .Route .MEDSUPPLY Qty: 1 0RF Rx Instructions: As directed (DME) Ultra-Light Rollator Misc See Rx Instructions .Route Qty: 1 0RF Rx Instructions: As directed ropinirole 0.5 mg tablet 0.5 mg PO QHS Qty: 90 3RF Rx Instructions: administer 1-3 hours before bedtime sertraline 100 mg tablet 200 mg PO DAILY Qty: 180 3RF Rx Instructions: 200 mg PO daily; potassium chloride 20 mEq tablet extended release 20 meq PO DAILY Qty: 90 3RF rosuvastatin 10 mg tablet 10 mg PO QHS Qty: 90 3RF omeprazole 40 mg capsule,delayed release(DR/EC) 40 mg PO DAILY Qty: 90 3RF hydrochlorothiazide 25 mg tablet 25 mg PO DAILY Qty: 90 3RF metoprolol succinate 50 mg tablet extended release 24 hr 50 mg PO BID Qty: 90 3RF Referrals / Follow Up: Katiana Rayo MD [Primary Care Provider] - Charges/Coding Visit Charges Inpatient E&M: 66887 Disch Hosp >30min
--- NOTE | 2023-09-28 14:49 | DCINST_ITS ---
Discharge Instructions Diet Discharge Diet: No restrictions Activity Discharge Activity: No Restrictions Weight Bearing Status: Full weight bearing Follow Up Care Test Results: Test results from this visit will be discussed in further detail at your follow- up appointment, if applicable. Discharge Plan Admission Admit Date/Time: 09/26/23 15:10 Primary Reason for Your Visit: Strokelike symptoms Attending Provider: Hima Zimmer Primary Care Provider: Katiana Rayo Consulting Providers: Nav Harding; Sonal Vivar; Parul Lagos; Beena Wagner; Leeann Killian; Mandeep Hannon; Pamella Carl; Moustapha Tran; Benji Miranda; Shruti Spencer; Eric Renee; Love Hanyd; Addie Guardado; Trisha Burden; Ha Baxter; Sukhdev Ashraf; Kevin Gonzalez; Collette Chery; Will Locke; Mona Chery Discharge Orders/Prescriptions Prescriptions: New atorvastatin 40 mg Tablet 40 mg PO QHS Qty: 0 0RF clopidogrel 75 mg Tablet 75 mg PO DAILY Qty: 0 0RF ferrous sulfate [FeroSul] 325 mg (65 mg iron) Tablet 325 mg PO QODAY@LUNCH Qty: 0 0RF aspirin 81 mg Tablet,Chewable 81 mg PO BREAKFAST Qty: 0 0RF Continued cholecalciferol (vitamin D3) 50 mcg (2,000 unit) capsule 4,000 unit PO DAILY multivitamin with minerals 1 EACH tablet 1 tab PO DAILY biotin 2,500 MCG capsule 1 cap PO DAILY gabapentin 100 mg capsule 100 mg PO Q12H Rx Instructions: Take one capsule (100 mg) each PM for one week, then increase to one capsule (100 mg) twice daily. acetaminophen 500 mg tablet 1,000 mg PO Q6H PRN PRN (Reason: Mild Pain (-10/01)) Qty: 90 0RF sumatriptan succinate 25 mg tablet See Rx Instructions PO .COMPLEX Qty: 14 1RF Rx Instructions: take 1 tab at onset of headache; if no relief may repeat 1 tab after at least 2 hrs; max = 4 tabs/24 hr PO sumatriptan succinate [Imitrex STATdose Pen] 6 mg/0.5 mL pen injector 6 mg subcut Q1-4H PRN (Reason: migraine headache) Qty: 1 1RF Rx Instructions: do not exceed 2 doses in a 24 hour period (DME) side rails for bed 0 .Route .MEDSUPPLY Qty: 1 0RF Rx Instructions: As directed (DME) Ultra-Light Rollator Misc See Rx Instructions .Route Qty: 1 0RF Rx Instructions: As directed ropinirole 0.5 mg tablet 0.5 mg PO QHS Qty: 90 3RF Rx Instructions: administer 1-3 hours before bedtime sertraline 100 mg tablet 200 mg PO DAILY Qty: 180 3RF Rx Instructions: 200 mg PO daily; omeprazole 40 mg capsule,delayed release(DR/EC) 40 mg PO DAILY Qty: 90 3RF Discontinued amlodipine 2.5 mg tablet 2.5 mg PO DAILY Qty: 30 1RF potassium chloride 20 mEq tablet extended release 20 meq PO DAILY Qty: 90 3RF rosuvastatin 10 mg tablet 10 mg PO QHS Qty: 90 3RF hydrochlorothiazide 25 mg tablet 25 mg PO DAILY Qty: 90 3RF metoprolol succinate 50 mg tablet extended release 24 hr 50 mg PO BID Qty: 90 3RF Referrals / Follow Up: Katiana Rayo MD [Primary Care Provider] - Disposition Disposition (needs filled in before D/C Order can be placed): [facility]
--- NOTE | 2023-09-28 14:52 | DS.PCM_ITS ---
Providers Date of Admission: 09/26/23 Date of Discharge: 09/28/23 Primary Care Physician: Dr. Katiana Rayo MD Consultations 09/26/23 15:24 Consult: Tele-Neurology Routine Consulting Provider: [facility] Reason for Consult: Acute Ischemic Stroke/TIA EMERGENT Consult: No MD Notified: Yes Date Notified: 09/26/23 Time Notified: 15:11 Method of Notification: Answering Service Nursing Unit Staff Notify [facility] of Tele-Neurology Consult: Yes Reason For Visit: CVA Diagnosis Discharge Diagnosis (1) 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: Status: Acute Code(s): I63.9 - Cerebral infarction, unspecified; R47.1 - Dysarthria and anarthria (2) Arthralgia: Status: Acute Code(s): M25.50 - Pain in unspecified joint (3) Microcytic anemia: Status: Acute Code(s): D50.9 - Iron deficiency anemia, unspecified Medications at Discharge Home Medications acetaminophen 500 mg tablet 1,000 mg (2 x 500 mg) PO Q6H PRN PRN Mild Pain (1- 310) #90 tabs 02/07/19 cholecalciferol (vitamin D3) 50 mcg (2,000 unit) capsule 4,000 unit PO DAILY SUPPLEMENT 09/10/19 biotin 2,500 mcg capsule 1 cap PO DAILY supplement 09/24/20 multivitamin with minerals 1 tab PO DAILY supplement 09/24/20 sumatriptan succinate 25 mg tablet See Rx Instructions PO .COMPLEX #14 tabs 06/14/22 sumatriptan succinate 6 mg/0.5 mL subcutaneous pen injector (Imitrex STATdose Pen) 6 mg (0.5 mL) subcut Q1-4H PRN migraine headache #1 mL 06/14/22 side rails for bed #1 ea 07/15/22 walker (Ultra-Light Rollator misc) #1 ea 08/23/22 ropinirole 0.5 mg tablet 0.5 mg PO QHS restless legs #90 tabs 11/12/22 sertraline 100 mg tablet 200 mg (2 x 100 mg) PO DAILY mood #180 tabs 11/12/22 omeprazole 40 mg capsule,delayed release 40 mg PO DAILY stomach #90 caps 02/21/23 gabapentin 100 mg capsule 100 mg PO Q12H neuropathy 09/26/23 aspirin 81 mg chewable tablet 81 mg PO BREAKFAST #0 tabs 09/28/23 atorvastatin 40 mg tablet 40 mg PO QHS #0 tabs 09/28/23 clopidogrel 75 mg tablet 75 mg PO DAILY #0 tabs 09/28/23 ferrous sulfate 325 mg (65 mg iron) tablet (FeroSul) 325 mg PO QODAY@LUNCH #0 tabs 09/28/23 Hospital Course Operations None Procedures EKG, Transthoracic echo and - (CT head without contrast x 2, CTA head/neck, chest x-ray) Summary of Care Provided Minutes Spent on Discharge: 35 Hospital Course: Patient is a 78-year-old female who presented to [facility] ED on 09/26/2023 with dysarthria, right facial droop and right facial num bness/tingling concerning for stroke. Hospital course as noted below. [facility] on [facility]. 1. Acute ischemic stroke ? Presented with symptoms of right facial droop, right facial numbness and tingling and dysarthria. Last known well was 8 PM on evening prior to admission, outside the window for TNK. ? Evaluated by stroke in ED who felt that she saw a stroke on CT of the brain with some stenotic area on her CTA head/neck. Given aspirin 325 mg and Plavix 300 mg on admit. ? Lipid panel showed total cholesterol 116, LDL 56, HDL 38. A1c 6.0%. ESR and CRP mildly elevated. ? Echo showed EF 65%, nondiagnostic bubble contrast today for PFO because of suboptimal images, no significant valvular disease. ? MRI brain unfortunately not able to be done to this point as it is unclear if patient's pacemaker is MRI compatible. ? Repeat CT head without contrast on 09/27 showed no acute intracranial abnormalities, only chronic age-related changes. ? Neurology followed. Recommended taking aspirin and Plavix both for 21 days, followed by baby aspirin monotherapy. Increased to atorvastatin 40 mg daily. 30-day cardiac event monitor ordered on discharge. Outpatient follow-up with neurology in 4 to 6 weeks. ? PT/OT/case management followed. [facility] on [facility]27. ? Patient notably was normotensive during hospitalization off of home amlodipine 2.5 mg daily, Toprol 50 mg twice daily, hydrochlorothiazide 25 mg daily. Discontinued these medications on discharge, can consider adding back in the outpatient setting as needed. 2. Bilateral shoulder pain ? ESR and CRP mildly elevated elevated as noted above. Unclear if this could be some degree of polymyalgia rheumatica, recommend outpatient follow-up with PCP and/or rheumatology for further evaluation. PT/OT followed as above. 3. Mild microcytic anemia ? Hemoglobin 11.3, MCV 77 on admit. Iron studies consistent with iron defici ency anemia. Started patient on p.o. iron supplement every other day. Hemoglobin remained stable during hospitalization. 4. Hypokalemia ? Potassium 3.1 on admit, magnesium within normal limits. Repleted as needed. Chronic medical conditions: ? Obesity: BMI 39 on admit. Complicates hospital course, care, recovery and prognosis. ? History of migraine headache: Hold home sumatriptan. ? Hypertension: Held home medications on discharge as noted above. ? Hyperlipidemia: Lipid panel on admit as noted above. Was on rosuvastatin 10 mg daily at home, started on atorvastatin 80 mg on admit. Decreased to atorvastatin 40 mg daily on 09/26 and will continue this dose on discharge. ? GERD: Continue home PPI. ? Neuropathy: Continue home gabapentin. ? Restless leg syndrome: Continue home Requip. ? Depression: Continue home sertraline. Total clinical time spent by myself addressing the patient's medical issues, reviewing all the data, and collaborating with patient's care team: 35 minutes. Physical Exam Const alert, oriented x3 and no apparent distress Constitutional Narrative: Pleasant elderly female, obese, sitting comfortably in bedside chair, answering questions appropriately but does have dysarthria at times when speaking, otherwise in no acute distress. General Appearance: cooperative and comfortable HEENT normocephalic, head/scalp atraumatic, hearing grossly normal bilaterally, nasal mucous membranes and turbinates normal and moist oral mucous membranes HEENT Narrative: No right-sided facial droop noted. Eyes PERRL, EOMs intact bilaterally and conjunctivae normal Neck full ROM Chest inspection of chest normal Resp normal respiratory effort, normal air movement, no use of accessory muscles and clear to auscultation bilaterally Cardio regular rate, regular rhythm, no murmurs and peripheral pulses 2+ throughout GI normal to inspection, nondistended, normoactive bowel sounds, soft to palpation, non-tender and non-distended Back/Spine normal ROM Extremity normal to inspection, full ROM and no pedal edema Skin no rashes or lesions noted Neuro moves all extremities and no focal motor deficits Neuro Narrative: Mild dysarthria noted. Psych mental status grossly normal Weight / BMI Weight Weight: 103.7 kg Body Mass Index (BMI) 39.2 ABG / Lab / Microbiology Data 09/27/23 06:30 09/27/23 06:30 Radiography Diagnostic Testing: Radiology Impression Brain CT 09/28/23 06:00 IMPRESSION: 1. No acute intracranial abnormalities. 2. Age-related changes. Electronically Signed: Tay Caruso MD at 5:33 EST , D/C Instructions Discharge Diet: No restrictions Weight Bearing Status: Full weight bearing Meaningful Use Info Meaningful Use Diagnoses (Choose all that apply): Ischemic CVA CVA Therapy Assessed for PT,OT and/or ST?: Yes Ischemic Stroke Antithrombotic order at d/c?: Yes Dx of Atrial fib/flutter?: No Statins at discharge?: Yes Primary Dx Acute Ischemic CVA?: Yes Discharge Plan Admission Admit Date/Time: 09/26/23 15:10 Primary Reason for Your Visit: Strokelike symptoms Attending Provider: Hima Zimmer Primary Care Provider: Katiana Rayo Consulting Providers: Nav Harding; Sonal Vivar; Parul Lagos; Beena Wagner; Leeann Killian; Mandeep Hannon; Pamella Carl; Moustapha Tran; Benji Miranda; Shruti Spencer; Eric Renee; Love Handy; Addie Guardado; Trisha Burden; Ha Baxter; Sukhdev Ashraf; Kevin Gonzalez; Collette Chery; Will Locke; Mona Chery Discharge Orders/Prescriptions Prescriptions: New atorvastatin 40 mg Tablet 40 mg PO QHS Qty: 0 0RF clopidogrel 75 mg Tablet 75 mg PO DAILY Qty: 0 0RF ferrous sulfate [FeroSul] 325 mg (65 mg iron) Tablet 325 mg PO QODAY@LUNCH Qty: 0 0RF aspirin 81 mg Tablet,Chewable 81 mg PO BREAKFAST Qty: 0 0RF Continued cholecalciferol (vitamin D3) 50 mcg (2,000 unit) capsule 4,000 unit PO DAILY multivitamin with minerals 1 EACH tablet 1 tab PO DAILY biotin 2,500 MCG capsule 1 cap PO DAILY gabapentin 100 mg capsule 100 mg PO Q12H Rx Instructions: Take one capsule (100 mg) each PM for one week, then increase to one capsule (100 mg) twice daily. acetaminophen 500 mg tablet 1,000 mg PO Q6H PRN PRN (Reason: Mild Pain (-10/01)) Qty: 90 0RF sumatriptan succinate 25 mg tablet See Rx Instructions PO .COMPLEX Qty: 14 1RF Rx Instructions: take 1 tab at onset of headache; if no relief may repeat 1 tab after at least 2 hrs; max = 4 tabs/24 hr PO sumatriptan succinate [Imitrex STATdose Pen] 6 mg/0.5 mL pen injector 6 mg subcut Q1-4H PRN (Reason: migraine headache) Qty: 1 1RF Rx Instructions: do not exceed 2 doses in a 24 hour period (DME) side rails for bed 0 .Route .MEDSUPPLY Qty: 1 0RF Rx Instructions: As directed (DME) Ultra-Light Rollator Misc See Rx Instructions .Route Qty: 1 0RF Rx Instructions: As directed ropinirole 0.5 mg tablet 0.5 mg PO QHS Qty: 90 3RF Rx Instructions: administer 1-3 hours before bedtime sertraline 100 mg tablet 200 mg PO DAILY Qty: 180 3RF Rx Instructions: 200 mg PO daily; omeprazole 40 mg capsule,delayed release(DR/EC) 40 mg PO DAILY Qty: 90 3RF Discontinued amlodipine 2.5 mg tablet 2.5 mg PO DAILY Qty: 30 1RF potassium chloride 20 mEq tablet extended release 20 meq PO DAILY Qty: 90 3RF rosuvastatin 10 mg tablet 10 mg PO QHS Qty: 90 3RF hydrochlorothiazide 25 mg tablet 25 mg PO DAILY Qty: 90 3RF metoprolol succinate 50 mg tablet extended release 24 hr 50 mg PO BID Qty: 90 3RF Referrals / Follow Up: Katiana Rayo MD [Primary Care Provider] - Disposition Disposition (needs filled in before D/C Order can be placed): [facility] Charges/Coding Visit Charges Inpatient E&M: 70310 Disch Hosp >30min
--- NOTE | 2023-09-28 15:24 | CASEMGMT ---
GLENN completed a 7000 in [employer] system. GLENN called patient's manager of case, Amy and left her a voice mail letting her know patient will be discharged today. GLENN also faxed d/c instructions to Amy. Plan: d/c to [facility] under skilled level of care on a convalescent stay. Physicians will transport patient via wheelchair. Candace MOY
--- NOTE | 2023-09-28 15:26 | CASEMGMT ---
Discharge Planning Discharge orders, signed med list, and transport time sent to [facility] via [facility]. Physicians will transport patient by wheelchair at 7p. Nursing, SW, patient, her friend, and daughter all updated. Winsome Lyon, Discharge Planning Asst.
--- NOTE | 2023-09-28 16:57 | NURSING ---
report given to red at [facility]
== END 2023-09-28 19:16 | disposition skilled nursing facility (03) | DRG 66 ==
LOC: ED 14:17 → PCU 15:02
PROVIDERS: Admitting Provider Internal Medicine; Emergency Provider Emergency Medicine; PCP Internal Medicine; Visit Provider Hospitalist
DX: I63.9 Cerebral infarction, unspecified (principal); D50.9 Iron deficiency anemia, unspecified; M35.3 Polymyalgia rheumatica; G25.81 Restless legs syndrome; I10 Essential (primary) hypertension; F32.A Depression, unspecified; E87.6 Hypokalemia; E78.5 Hyperlipidemia, unspecified; K21.9 Gastro-esophageal reflux disease without esophagitis; G62.9 Polyneuropathy, unspecified; M25.511 Pain in right shoulder; M25.512 Pain in left shoulder; E66.9 Obesity, unspecified; R13.10 Dysphagia, unspecified; R47.81 Slurred speech; R29.6 Repeated falls; R29.705 NIHSS score 5; R47.1 Dysarthria and anarthria; R29.810 Facial weakness; Z68.39 Body mass index [BMI] 39.0-39.9, adult; Z66 Do not resuscitate; Z79.02 Long term (current) use of antithrombotics/antiplatelets; Z79.82 Long term (current) use of aspirin; Z87.891 Personal history of nicotine dependence
CPT/HCPCS: 36415; 70450; 70496; 70498; 71045; 80048; 80053; 80061; 82728; 83036; 83540; 83550; 83735; 84100; 84443; 84484; 85025; 85610; 85652; 85730; 86140; 92522; 92610; 93005; 93306; 94668; 94762; 97162; 97166; 97530; 97535; 97802; 99285; J7030; J7040; Q9957; Q9967; C8929

== ENCOUNTER → 2023-10-24 | Outpatient (CLI) | payer MEDICARE, MEDICAID, SELFPAY ==
[2023-10-24 16:49] LABS: Absolute Lymphocyte Count 1.62 X10^3/uL (0.83-4.51); Absolute Neutrophil Count 9.8 X10^3/uL (2.0-7.7); Basophil# 0.05 X10^3/uL; Basophil% 0.4 % (0-1); Eosinophil# 0.13 X10^3/uL; Hematocrit 38.8 % (37-47); Hemoglobin 11.3 g/dL (12.0-15.0); Lymphocyte # 1.62 X10^3/ul (0.83-4.51); Lymphocyte % 12.4 % (19-41); Mean Corp Hgb Conc 29.1 g/dL (32-36); Mean Corpuscular Hgb 22.7 pg (27.0-32.0); Mean Corpuscular Volume 78.1 fL (81-99); Mean Platelet Vol. 9.4 fl (6.2-12.0); Monocyte# 1.48 X10^3/uL; Monocyte% 11.3 % (0-10); NRBC Flagged by Analyzer 0 % (0-5); Neutrophil # 9.77 X10^3/uL (2.7-7.7); Neutrophil % 74.4 % (47-70); Platelet Count 319 K/mm3 (150-450); RBC Distribution Width CV 19.1 % (11.6-14.6); RBC Distribution Width SD 53.7 fl (35.1-43.9); Red Blood Count 4.97 M/mm3 (4.2-5.4); White Blood Count 13.1 K/mm3 (4.4-11.0)
[2023-10-24 16:55] LABS: Anion Gap 6 (5-15); BUN 11 mg/dL (7-18); BUN/Creat Ratio 13.9 RATIO (10-20); Calcium,Total 9.2 mg/dL (8.5-10.1); Chloride 104 mmol/L (98-107); Creatinine, Serum 0.79 mg/dL (0.55-1.02); EST Glomerular Filtration Rate 74 mL/min (>60); Est Glom Filt Rate - Afr Amer 90 mL/min (>60); Glucose 86 mg/dL (74-106); Potassium 3.4 mmol/L (3.5-5.1); Sodium Level 138 mmol/L (136-145); Uric Acid 4.6 mg/dL (2.6-6.0)
[2023-10-25 19:47] LABS: Erythrocyte Sedimentation Rate 72 mm/hr (0-30)
== END | disposition home or self-care (01) ==
LOC: BIMLAB 14:36
PROVIDERS: PCP Internal Medicine; Referring Provider Internal Medicine; Visit Provider Internal Medicine
DX: K58.9 Irritable bowel syndrome, unspecified (principal); M10.9 Gout, unspecified
CPT/HCPCS: 36415; 80048; 84550; 85025; 85652; 86140

== ENCOUNTER 2023-10-30 23:05 | Emergency (ER) | payer MEDICARE, MEDICAID, SELFPAY ==
[2023-10-30 23:06] VITALS: BP 151/85; PULSE 95; RESP 18; TEMP 36.5; O2SAT 97; BMI 38.7
--- NOTE | 2023-10-30 23:20 | CT_ITS ---
INDICATION: fall/trauma EXAMINATION: CT BRAIN - CT Head or Brain W/O Contrast Injection TECHNIQUE: Multiple axial images were obtained of the head without intravenous contrast. A radiation dose optimization technique was used for this scan. IV Contrast dosage and agent: None. RADIATION DOSAGE (If Supplied By Facility): CTDIvol = ( 44.99 ) mGy, DLP = ( 812.98 ) mGycm COMPARISON: CT BrainMar 2023 [id number] FINDINGS: BRAIN PARENCHYMA: No intra- or extra-axial hemorrhage. No evidence of acute infarct. No intracranial mass or mass effect. Chronic microvascular ischemic changes in the periventricular and subcortical white matter. Posterior fossa structures are unremarkable. CSF SPACES: Appropriate for age. No hydrocephalus. Basal cisterns are patent. CALVARIUM, SKULL BASE, PARANASAL SINUSES AND MASTOID AIR CELLS: Clear. No discrete lytic or blastic abnormalities. ORBITS: Both globes, extraocular muscles, optic nerves and retrobulbar fat appear unremarkable. ASPECTS Score for Acute Strokes: 10 CT/Brain/Head without Contrast IMPRESSION: 1. No acute intracranial abnormalities. 2. Age-related changes. Electronically Signed: Kacy Eid MD at 0:34 EDT ,
--- NOTE | 2023-10-30 23:21 | EDS_ITS ---
HPI HPI - Fall History of Present Illness Chief Complaint: Fall Informant: patient and EMS Narrative Narrative: 78-year-old female lives at home alone using a walker, states that she was using it walking in her house and she tripped on edge of a rug, causing her to fall to the floor and hit her head/face. She also injured her left great toe and denies any other injury. After falling, she did not lose consciousness but then started feeling lightheaded/dizzy. She is not able to get up on her own, she states she normally is not able to due to being dependent on the walker. She called EMS for that reason, but she is on clopidogrel because of having a stroke last month, having residual speech deficits, no changes there according to her but they brought her because of those facts. She denies having headache she is a little nauseated. She states she has chronic pain in her shoulders but no different and no injury there. PFSH [facility] Medical History Abdominal pain Anxiety Asthma Chronic back pain Chronic bronchitis Chronic headaches Confusion Dark stools DDD (degenerative disc disease) Depression Essential (primary) hypertension Frequent falls Generalized weakness GERD (gastroesophageal reflux disease) H/O emotional problems Hyperlipidemia Hypokalemia IBS (irritable bowel syndrome) Insomnia Iron deficiency anemia Left-sided chest wall pain Localized swelling of chest wall Microcytic anemia Migraines Neuropathy Non-smoker Obesity Osteoarthritis Osteoarthritis of left knee Overactive bladder Pneumonia Rheumatoid arthritis Stroke/cerebrovascular accident TIA (transient ischemic attack) Vision problems Vitamin D deficiency Home Medications acetaminophen 500 mg tablet 1,000 mg (2 x 500 mg) PO Q6H PRN PRN Mild Pain (- 10/01) #90 tabs 02/07/19 [Rx Last Taken 08/12/23 16:15 1,000 mg] cholecalciferol (vitamin D3) 50 mcg (2,000 unit) capsule 4,000 unit PO DAILY SUPPLEMENT 09/10/19 [History Last Taken 09/24/20] biotin 2,500 mcg capsule 1 cap PO DAILY supplement 09/24/20 [History Last Taken 09/24/20] multivitamin with minerals 1 tab PO DAILY supplement 09/24/20 [History Last Taken 09/24/20] sumatriptan succinate 25 mg tablet See Rx Instructions PO .COMPLEX #14 tabs 11/21/22 [Rx Last Taken Unknown] sumatriptan succinate 6 mg/0.5 mL subcutaneous pen injector (Imitrex STATdose Pen) 6 mg (0.5 mL) subcut Q1-4H PRN migraine headache #1 mL 06/14/22 [Rx Last Taken Unknown] side rails for bed #1 ea 07/15/22 [Rx Last Taken Unknown] walker (Ultra-Light Rollator misc) #1 ea 08/23/22 [Rx Last Taken Unknown] omeprazole 40 mg capsule,delayed release 40 mg PO DAILY stomach #90 caps 02/21/23 [Rx Last Taken Unknown] gabapentin 100 mg capsule 100 mg PO Q12H neuropathy 09/26/23 [History Last Taken Unknown] aspirin 81 mg chewable tablet 81 mg PO BREAKFAST #0 tabs 09/28/23 [Rx Last Taken Unknown] ferrous sulfate 325 mg (65 mg iron) tablet (FeroSul) 325 mg PO QODAY@LUNCH #0 tabs 09/28/23 [Rx Last Taken Unknown] atorvastatin 40 mg tablet 40 mg PO QHS #90 tabs 10/21/23 [Rx Last Taken Unknown] clopidogrel 75 mg tablet 75 mg PO DAILY #90 tabs 10/21/23 [Rx Last Taken Unknown] ropinirole 0.5 mg tablet 0.5 mg PO QHS restless legs #90 tabs 10/21/23 [Rx Last Taken Unknown] sertraline 100 mg tablet 200 mg (2 x 100 mg) PO DAILY mood #180 tabs 10/21/23 [Rx Last Taken Unknown] colchicine 0.6 mg tablet 0.6 mg PO DAILY #2 tabs 10/24/23 [Rx Last Taken Unknown] Allergy/AdvReac Type Severity Reaction Status Date / Time adhesive tape Allergy Severe Area Sore Verified 10/24/23 13:55 cefpodoxime [From Vantin] Allergy Unknown Unknown Verified 10/24/23 13:55 codeine Allergy Unknown Unknown Verified 10/24/23 13:55 metronidazole [From Flagyl] Allergy Unknown Unknown Verified 10/24/23 13:55 sulfamethoxazole Allergy Unknown Unknown Verified 10/24/23 13:55 [From Bactrim] trimethoprim [From Bactrim] Allergy Unknown Unknown Verified 10/24/23 13:55 Sulfa (Sulfonamide Allergy Unknown Verified 10/24/23 13:55 Antibiotics) Family History Sister Anesthesia complication Breast cancer Hypertension Cancer Thyroid, rectal, kidney Thyroid disorder Diabetes Mother Arthritis Pancreatic cancer Depression Diabetes Father Colon cancer Hypertension CVA (cerebral vascular accident) Sister Cancer rectal/kidney/medullary Thyroid cancer Surgical History History of appendectomy History of back surgery History of History of cholecystectomy History of gastric surgery History of hernia repair History of hysterectomy History of left heart catheterization (10/14/20) History of left knee replacement History of right knee joint replacement 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 History of total right knee replacement Hx of breast reduction, elective Social History household members: none housing: apartment current occupational status: retired Smoking Status: Never smoker alcohol intake: never substance use type: does not use what type of physical activity do you participate in: none ROS ROS ED Constitutional Constitutional ED: Denies chills or fever(s) Eyes Eyes: Denies change in vision or diplopia ENT ENT ED: Reports facial pain; Denies ear pain, epistaxis or rhinorrhea Cardiovascular Cardiovascular: Reports lightheadedness; Denies chest pain, palpitations or syncope Respiratory/Chest Respiratory/Chest: Denies cough or dyspnea Gastrointestinal Gastrointestinal: Reports nausea; Denies abdominal pain, diarrhea, melena or vomiting Genitourinary Genitourinary ED: Denies dysuria or hematuria Musculoskeletal Musculoskeletal: Reports as per HPI and extremity pain; Denies back pain or neck pain Integumentary Reports Abrasions; Denies abscess, laceration or rash Neurologic Neurologic: Denies confusion, headache(s), paresthesias or weakness EXAM Physical Exam Const Vital Signs: 10/30/23 23:06 Temperature 97.7 F L Temperature Source Temporal Pulse Rate 95 Respiratory Rate 18 Blood Pressure 151/85 H Blood Pressure Mean 107 Pulse Ox 97 Oxygen Delivery Method Room Air Positive well nourished, well developed and obese General Appearance ED: well developed and NAD Nutritional Appearance: obese HEENT Reports TM's clear and nasal mucous membranes and turbinates normal HEENT Narrative: Multiple small contusions on the face, there is one near the patient's philtrum, a little to the right of it and there is a mucosal abrasion opposite this but no lacerations that need repaired. There is also a small contusion on the right bottom lip vermilion without any lacerations or mucosal lesions. She has on dentures her gums are atraumatic. There is a contusion to the left nasal bridge, there is no deformity to the nose or crepitance, or epistaxis. There is also contusion with a very small hematoma mid right mid forehead without crepitance or depression. No other signs of head trauma. No Ortega sign. No periorbital ecchymosis. No CSF otorhinorrhea. Face and Sinus: facial tenderness Tympanic Membrane ED: Yes TM's clear Eyes PERRL and EOMs intact bilaterally Visual Acuity: other Other Details: no entrapment or pain with extraocular movements Neck full ROM and supple General: Negative for tenderness Chest Wall inspection of chest normal and palpation of chest normal Chest: symmetrical chest wall rise; Negative for crepitus or tenderness Resp normal respiratory effort and clear to auscultation bilaterally Percussion: other equal BS bilat Cardio no murmurs Rate: regular rate Rhythm: regular rhythm GI normal to inspection, nondistended, normoactive bowel sounds, soft to palpation and non-tender Back/Spine normal ROM Cervical Spine: Negative for cervical spine tenderness Thoracic Spine / Upper Back: Negative for thoracic spinal tenderness Lumbar Spine / Lower Back: Negative for lumbar spinal tenderness Extremity normal to inspection and full ROM Extremity Narrative: Limited range of motion of both shoulders, patient states she is at baseline and does not feel like they are injured. Full range of motion of all other joints. Mild tenderness at the left great toe where there is an abrasion dorsally at the IPJ. General Extremety ED: Yes tenderness Neuro oriented x3, CN's II-XII intact bilaterally, moves all extremities and no focal motor deficits Neuro Narrative: Chronic decree sensation both feet at baseline according to patient. Symmetric. Harinder Coma Scale: document GCS findings Spontaneous Obeys Commands Oriented 15 Sensorium / Orientation: awake and alert Psych mental status grossly normal and thought process normal Skin no wounds Lesions: no lesions Rashes: no rashes Trauma: abrasion MDM MDM MDM Narrative Medical decision making narrative: CT of the head was obtained in order to rule out intracranial injury, I reviewed the images and report which I agree with, negative for anything acute. Patient refused x-rays of her left foot. We cleansed and dressed that abrasion. I am at a low suspicion for fracture but she is tender at that toe. Facial abrasions/contusions were cleansed and dressed as appropriate, there is nothing to repair, the small abrasion on the mucosal side of her upper lip does not require repair. Patient is able to stand and ambulate with assistance, we will do what we can to get her home. Radiography Diagnostic Testing: Clinical Impression(s) from Imaging Studies Brain CT 10/30/23 23:20 IMPRESSION: 1. No acute intracranial abnormalities. 2. Age-related changes. Electronically Signed: Kacy Eid MD at 0:34 EDT , Discharge Plan Triage Chief Complaint: Fall ED Provider: Cam Delgado Dx/Rx/DC Orders Clinical Impression: Abrasion of great toe of left foot, Fall from slip, trip, or stumble, Contusion of face, Abrasion of face, Closed head injury without loss of consciousness Instructions: ED Head Injury (Adult) Prescriptions: No Action cholecalciferol (vitamin D3) 50 mcg (2,000 unit) capsule 4,000 unit PO DAILY colchicine 0.6 mg tablet 0.6 mg PO DAILY Qty: 2 0RF Rx Instructions: One tab now and one tab 6 hours later. multivitamin with minerals 1 EACH tablet 1 tab PO DAILY biotin 2,500 MCG capsule 1 cap PO DAILY gabapentin 100 mg capsule 100 mg PO Q12H Rx Instructions: Take one capsule (100 mg) each PM for one week, then increase to one capsule (100 mg) twice daily. ferrous sulfate [FeroSul] 325 mg (65 mg iron) Tablet 325 mg PO QODAY@LUNCH Qty: 0 0RF aspirin 81 mg Tablet,Chewable 81 mg PO BREAKFAST Qty: 0 0RF acetaminophen 500 mg tablet 1,000 mg PO Q6H PRN PRN (Reason: Mild Pain (1-310)) Qty: 90 0RF sumatriptan succinate 25 mg tablet See Rx Instructions PO .COMPLEX Qty: 14 1RF Rx Instructions: take 1 tab at onset of headache; if no relief may repeat 1 tab after at least 2 hrs; max = 4 tabs/24 hr PO sumatriptan succinate [Imitrex STATdose Pen] 6 mg/0.5 mL pen injector 6 mg subcut Q1-4H PRN (Reason: migraine headache) Qty: 1 1RF Rx Instructions: do not exceed 2 doses in a 24 hour period (DME) side rails for bed 0 .Route .MEDSUPPLY Qty: 1 0RF Rx Instructions: As directed (DME) Ultra-Light Rollator Misc See Rx Instructions .Route Qty: 1 0RF Rx Instructions: As directed omeprazole 40 mg capsule,delayed release(DR/EC) 40 mg PO DAILY Qty: 90 3RF atorvastatin 40 mg tablet 40 mg PO QHS Qty: 90 3RF clopidogrel 75 mg tablet 75 mg PO DAILY Qty: 90 3RF ropinirole 0.5 mg tablet 0.5 mg PO QHS Qty: 90 3RF Rx Instructions: administer 1-3 hours before bedtime sertraline 100 mg tablet 200 mg PO DAILY Qty: 180 3RF Rx Instructions: 200 mg PO daily; Primary Care Provider: Katiana Rayo Referrals: Katiana Rayo MD [Primary Care Provider] - As Needed Disposition Disposition: Home, Self Care
[2023-10-30] MEDS: Ondansetron 4 MG/2 ML Vial IV (23:31)
[2023-10-31 01:06] VITALS: BP 158/60
[2023-10-31 01:14] VITALS: BP 158/60; PULSE 85; RESP 18; TEMP 36.7; O2SAT 98
== END 2023-10-31 01:15 | disposition home or self-care (01) ==
PROVIDERS: Emergency Provider Emergency Medicine; PCP Internal Medicine; Visit Provider Emergency Medicine
DX: S00.83XA Contusion of other part of head, initial encounter (principal); M25.511 Pain in right shoulder; Z79.02 Long term (current) use of antithrombotics/antiplatelets; S00.531A Contusion of lip, initial encounter; M25.512 Pain in left shoulder; W01.0XXA Fall on same level from slipping, tripping and stumbling without subsequent striking against object, initial encounter; J45.909 Unspecified asthma, uncomplicated; I10 Essential (primary) hypertension; E78.5 Hyperlipidemia, unspecified; Z79.899 Other long term (current) drug therapy; Z79.84 Long term (current) use of oral hypoglycemic drugs; E66.9 Obesity, unspecified; S90.412A Abrasion, left great toe, initial encounter; S00.81XA Abrasion of other part of head, initial encounter; S09.90XA Unspecified injury of head, initial encounter; S00.511A Abrasion of lip, initial encounter
CPT/HCPCS: 70450; 96374; 99284; A4216; J2405

== ENCOUNTER → 2024-01-12 | Outpatient (CLI) | payer MEDICARE, MEDICAID, SELFPAY ==
--- NOTE | 2024-01-12 14:14 | RAD_ITS ---
STUDY: X-RAY - LEFT FOOT CLINICAL: Female, 78 years old. Pain left foot. TECHNIQUE: 3 views of the left foot. COMPARISON: None. FINDINGS: Intact talus, calcaneus, and tarsal bones. There are plantar and posterior calcaneal tuberosity spurs. Normal visualized subtalar, talonavicular, and calcaneocuboid articulations. There is moderate degenerative at the navicular-cuneiform joints as well as second and third tarsometatarsal joints. Normal metatarsi. There is severe degenerative arthrosis of the metatarsophalangeal joint of the hallux. Normal tibial and fibular sesamoid bones. Normal interphalangeal joint of the great toe. Normal phalanges of the great toe. Normal second through fifth metatarsophalangeal joints. Normal interphalangeal joints and phalanges of the lesser toes. The soft tissue structures are unremarkable. There is no demonstrated fracture. 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 Moderate degenerative at the navicular-cuneiform joints as well as second and third tarsometatarsal joints. Electronically Signed: Chavo Chery MD at 14:48 EDT ,
[2024-01-12 14:37] LABS: Absolute Lymphocyte Count 1.67 X10^3/uL (0.83-4.51); Absolute Neutrophil Count 6.2 X10^3/uL (2.0-7.7); Basophil# 0.04 X10^3/uL; Basophil% 0.4 % (0-1); Eosinophils% 3.3 % (0-5); Hematocrit 36.9 % (37-47); Hemoglobin 10.8 g/dL (12.0-15.0); Lymphocyte # 1.67 X10^3/ul (0.83-4.51); Lymphocyte % 18.5 % (19-41); Mean Corp Hgb Conc 29.3 g/dL (32-36); Mean Corpuscular Hgb 23.1 pg (27.0-32.0); Mean Corpuscular Volume 78.8 fL (81-99); Mean Platelet Vol. 9.5 fl (6.2-12.0); Monocyte# 0.78 X10^3/uL; Monocyte% 8.6 % (0-10); NRBC Flagged by Analyzer 0 % (0-5); Neutrophil % 68.6 % (47-70); Platelet Count 308 K/mm3 (150-450); RBC Distribution Width SD 51.2 fl (35.1-43.9); Red Blood Count 4.68 M/mm3 (4.2-5.4)
[2024-01-12 14:58] LABS: D-Dimer Quantitative (DVT/PE) 0.71 FEU/ug/m (0.27-0.49)
[2024-01-12 16:28] LABS: ALB/GLOB Ratio 0.9 RATIO (0.9-2.4); AST(SGOT) 39 U/L (15-37); Alanine Aminotransfer ALT/SGPT 41 U/L (13-56); Albumin, Serum 3.4 g/dL (3.2-5.0); Alkaline Phosphatase 101 U/L (45-117); Anion Gap 5 (5-15); BUN 15 mg/dL (7-18); Calcium,Total 9.1 mg/dL (8.5-10.1); Chloride 106 mmol/L (98-107); Creatinine, Serum 0.72 mg/dL (0.55-1.02); EST Glomerular Filtration Rate 84 mL/min (>60); Est Glom Filt Rate - Afr Amer 101 mL/min (>60); Free T3 2.5 pg/mL (2.18-3.98); Globulin 3.7 g/dL (2.2-4.2); Glucose 85 mg/dL (74-106); Potassium 3.1 mmol/L (3.5-5.1); Protein, Total 7.1 g/dL (6.4-8.2); Rheumatoid Factor < 10.0 IU/mL (<15); Sodium Level 138 mmol/L (136-145); T4 Free Direct 0.99 ng/dL (0.76-1.46); Thyroid Stim Hormone (TSH) 2.35 uIU/mL (0.358-3.74)
[2024-01-14 14:09] LABS: CCP IgG Antibodies 63 units (0-19)
[2024-01-16 13:07] LABS: ANTINUCLEAR ANTIBODIES DIRECT Negative (Negative)
== END | disposition home or self-care (01) ==
LOC: LAB 13:51
PROVIDERS: PCP Internal Medicine; Referring Provider Internal Medicine; Visit Provider Internal Medicine
DX: M79.89 Other specified soft tissue disorders (principal); M79.672 Pain in left foot; M25.432 Effusion, left wrist; M13.0 Polyarthritis, unspecified; F32.9 Major depressive disorder, single episode, unspecified
CPT/HCPCS: 36415; 73630; 80053; 84439; 84443; 84481; 85025; 85379; 86038; 86200; 86225; 86235; 86431

== ENCOUNTER → 2024-05-28 | Outpatient (CLI) | payer MEDICARE, SELFPAY ==
[2024-05-28 12:36] LABS: Absolute Lymphocyte Count 1.81 X10^3/uL (0.83-4.51); Absolute Neutrophil Count 7.8 X10^3/uL (2.0-7.7); Basophil# 0.02 X10^3/uL; Basophil% 0.2 % (0-1); Eosinophil# 0.19 X10^3/uL; Eosinophils% 1.7 % (0-5); Hematocrit 37.5 % (37-47); Hemoglobin 10.8 g/dL (12.0-15.0); Lymphocyte # 1.81 X10^3/ul (0.83-4.51); Lymphocyte % 16.4 % (19-41); Mean Corp Hgb Conc 28.8 g/dL (32-36); Mean Corpuscular Hgb 22.6 pg (27.0-32.0); Mean Corpuscular Volume 78.6 fL (81-99); Mean Platelet Vol. 9.7 fl (6.2-12.0); Monocyte# 1.14 X10^3/uL; Monocyte% 10.3 % (0-10); NRBC Flagged by Analyzer 0 % (0-5); Neutrophil # 7.82 X10^3/uL (2.7-7.7); Neutrophil % 70.8 % (47-70); Platelet Count 322 K/mm3 (150-450); RBC Distribution Width SD 53.4 fl (35.1-43.9); Red Blood Count 4.77 M/mm3 (4.2-5.4); White Blood Count 11.1 K/mm3 (4.4-11.0)
[2024-05-28 13:06] LABS: Vitamin B12 293 pg/mL (211-911); Vitamin D,25 Hydroxy 13.1 ng/mL
[2024-05-28 13:32] LABS: ALB/GLOB Ratio 0.9 RATIO (0.9-2.4); AST(SGOT) 37 U/L (15-37); Alanine Aminotransfer ALT/SGPT 46 U/L (13-56); Albumin, Serum 3.5 g/dL (3.2-5.0); Alkaline Phosphatase 115 U/L (45-117); Anion Gap 8 (5-15); BUN 19 mg/dL (7-18); BUN/Creat Ratio 27.8 RATIO (10-20); Calcium,Total 9.1 mg/dL (8.5-10.1); Chloride 107 mmol/L (98-107); Cholesterol 144 mg/dL (200); Creatinine, Serum 0.68 mg/dL (0.55-1.02); EST Glomerular Filtration Rate 88 mL/min (>60); Est Glom Filt Rate - Afr Amer 107 mL/min (>60); Globulin 3.8 g/dL (2.2-4.2); Glucose 112 mg/dL (74-106); High Density Lipoprotein 57 mg/dL; Iron 22 ug/dL (50-170); Iron Binding Capacity,Total 449 ug/dL (250-450); Magnesium 2.3 mg/dL (1.6-2.6); PERCENT IRON SATURATION 4.9 % (15.0-55.0); Potassium 3.7 mmol/L (3.5-5.1); Protein, Total 7.3 g/dL (6.4-8.2); Sodium Level 142 mmol/L (136-145); Triglycerides 140 mg/dL; Very Low Density Lipoprotein 28 mg/dL (5-40)
== END | disposition home or self-care (01) ==
PROVIDERS: PCP Internal Medicine; Referring Provider Internal Medicine; Visit Provider Internal Medicine
DX: Z13.220 Encounter for screening for lipoid disorders (principal); N32.81 Overactive bladder; R60.0 Localized edema; D50.9 Iron deficiency anemia, unspecified; R29.6 Repeated falls; G62.9 Polyneuropathy, unspecified; M19.90 Unspecified osteoarthritis, unspecified site; W06.XXXA Fall from bed, initial encounter; E55.9 Vitamin D deficiency, unspecified; E78.5 Hyperlipidemia, unspecified
CPT/HCPCS: 36415; 80053; 80061; 82306; 82607; 83540; 83550; 83735; 84443; 85025

== ENCOUNTER 2024-07-14 16:27 | Emergency (ER) | payer MEDICARE, SELFPAY ==
[2024-07-14 16:28] VITALS: BP 177/97; PULSE 93; RESP 18; TEMP 36.9; O2SAT 95; BMI 28.0
--- NOTE | 2024-07-14 16:40 | EX.ED.DYSGE1 ---
HPI History of Present Illness Chief Complaint: General Illness Detail of Chief Complaint: Nausea, vomiting diarrhea since yesterday. Informant: patient Onset/Context/Timing Onset: Today and Yesterday Context: Gradual Onset Timing: Continuous Current Severity: Mild Maximum Severity: Mild Narrative Narrative: 79-year-old female lives alone at home. Started having nausea, vomiting and diarrhea yesterday. Really no significant abdominal pain other than cramping with diarrhea. No dysuria. Today she is able to hold down some fluids. Still feels nauseated. Prior cholecystectomy, appendectomy and hysterectomy. Prior similar symptoms: Yes Recent Illness/Hospitalization: No PFSH PFS Medical History Urinary incontinence Right hip pain Microcytic anemia Anxiety Rheumatoid arthritis Non-smoker Migraines TIA (transient ischemic attack) Stroke/cerebrovascular accident Generalized weakness Hypokalemia Abdominal pain Asthma DDD (degenerative disc disease) Obesity Frequent falls Essential (primary) hypertension Overactive bladder Chronic back pain Insomnia Hyperlipidemia Depression Osteoarthritis of left knee Iron deficiency anemia Localized swelling of chest wall Confusion Dark stools Left-sided chest wall pain Vitamin D deficiency Vision problems Pneumonia Osteoarthritis Neuropathy IBS (irritable bowel syndrome) Chronic headaches GERD (gastroesophageal reflux disease) H/O emotional problems Chronic bronchitis Home Medications ?Medication ?Instructions ?Recorded ?Last Taken ?Type cholecalciferol (vitamin D3) 50 4,000 unit PO DAILY SUPPLEMENT 09/10/19 09/24/20 History mcg (2,000 unit) capsule biotin 2,500 mcg capsule 1 cap PO DAILY supplement 09/24/20 09/24/20 History multivitamin with minerals 1 tab PO DAILY supplement 09/24/20 09/24/20 History side rails for bed #1 ea 07/15/22 Unknown Rx walker (Ultra-Light Rollator misc) #1 ea 08/23/22 Unknown Rx aspirin 81 mg chewable tablet 81 mg PO BREAKFAST #0 tabs 09/28/23 Unknown Rx atorvastatin 40 mg tablet 40 mg PO QHS #90 tabs 10/21/23 Unknown Rx clopidogrel 75 mg tablet 75 mg PO DAILY #90 tabs 10/21/23 Unknown Rx ropinirole 0.5 mg tablet 0.5 mg PO QHS restless legs #90 10/21/23 Unknown Rx tabs sertraline 100 mg tablet 200 mg (2 x 100 mg) PO DAILY mood 10/21/23 Unknown Rx #180 tabs sumatriptan succinate 25 mg tablet See Rx Instructions PO .COMPLEX 11/21/23 Unknown Rx #14 tabs omeprazole 40 mg capsule,delayed 40 mg PO DAILY stomach #90 caps 01/13/24 Unknown Rx release sumatriptan succinate 6 mg/0.5 mL 6 mg (0.5 mL) subcut Q1-4H PRN 02/13/24 Unknown Rx subcutaneous pen injector (Imitrex migraine headache #1 mL STATdose Pen) trazodone 50 mg tablet 25 mg (1/2 x 50 mg) PO DAILY PRN 02/21/24 Unknown Rx insomnia #10 tabs gabapentin 100 mg capsule 100 mg PO Q12H neuropathy #180 caps 05/11/24 Unknown Rx ferrous sulfate 137 mg (45 mg 137 mg PO QDAY #90 tabs 05/21/24 Unknown Rx iron) tablet,extended release (Slow Fe) iron bisglycinate chelate 28 mg PO QDAY #90 caps 05/21/24 Unknown Rx vibegron 75 mg tablet (Gemtesa) 75 mg PO QDAY 05/21/24 Unknown History potassium chloride 20 mEq 20 meq PO QDAY #90 tabs 06/18/24 Unknown Rx tablet,extended release(part/cryst) (Klor-Con M) ondansetron 4 mg disintegrating 4 mg PO Q6H PRN nausea and 07/14/24 Unknown Rx tablet vomiting #7 tabs Allergy/AdvReac Type Severity Reaction Status Date / Time adhesive tape Allergy Severe Area Sore Verified 07/14/24 16:32 cefpodoxime (From Vantin) Allergy Unknown Unknown Verified 07/14/24 16:32 codeine Allergy Unknown Unknown Verified 07/14/24 16:32 metronidazole (From Flagyl) Allergy Unknown Unknown Verified 07/14/24 16:32 sulfamethoxazole (From Allergy Unknown Unknown Verified 07/14/24 16:32 Bactrim) trimethoprim (From Bactrim) Allergy Unknown Unknown Verified 07/14/24 16:32 Sulfa (Sulfonamide Allergy Unknown Verified 07/14/24 16:32 Antibiotics) Family History Sister Anesthesia complication Breast cancer Hypertension Cancer Thyroid, rectal, kidney Thyroid disorder Diabetes Mother Arthritis Pancreatic cancer Depression Diabetes Father Colon cancer Hypertension CVA (cerebral vascular accident) Sister Cancer rectal/kidney/medullary Thyroid cancer Surgical History History of appendectomy History of left knee replacement History of left heart catheterization (10/14/20) 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 History of total right knee replacement History of gastric surgery History of hysterectomy History of Hx of breast reduction, elective History of back surgery History of hernia repair History of right knee joint replacement History of cholecystectomy Social History household members: none housing: apartment current occupational status: retired Smoking Status: Former smoker alcohol intake: never substance use type: does not use what type of physical activity do you participate in: none ROS ROS ED ROS Narrative Nausea, vomiting and diarrhea. Review of Systems ROS Unobtainable: Denies due to encephalopathy Constitutional Constitutional ED: Denies chills or fever(s) Eyes Eyes: Denies blurry vision ENT ENT ED: Denies ear pain Cardiovascular Cardiovascular: Denies chest pain Respiratory/Chest Respiratory/Chest: Denies cough or dyspnea Gastrointestinal Gastrointestinal: Reports diarrhea, nausea and vomiting; Denies melena Genitourinary Genitourinary ED: Denies dysuria or hematuria Musculoskeletal Musculoskeletal: Denies arthralgias Integumentary Denies abscess Neurologic Neurologic: Denies headache(s) Psychiatric Psychiatric: Denies anxiety or depression Endocrine Endocrinology: Denies cold intolerance Hematologic/Lymphatic Hematologic/Lymphatic: Reports none Allergic/Immunologic Allergic/Immunologic ED: Denies mouth swelling, tongue swelling or urticaria EXAM Physical Exam Narrative Exam Narrative: 79-year-old female no acute distress. Vital signs are stable afebrile. H EENT exam dry mucous membranes. Pupils round reactive light. Normal speech. Neck nontender. Lungs clear. Heart regular rhythm rate about 90 no murmur. Chest wall ribs nontender. Abdomen soft, nontender, nondistended normal bowel sounds without peritoneal signs. No obstruction. Moving all 4 extremities. Nontender no edema. She is awake and alert. Answer questions following commands. No focal weakness. Const Vital Signs: 07/14/24 16:28 07/14/24 16:32 Temperature 98.5 F Temperature Source Temporal Pulse Rate 93 Respiratory Rate 18 Respiratory Effort Short of Breath Blood Pressure 177/97 H Blood Pressure Mean 123 Pulse Ox 95 Oxygen Delivery Method Room Air Positive well developed; Negative for cachectic, contractures or unkempt General Appearance ED: well developed and NAD; Negative for unkempt, cachectic, contractures, cyanotic, diaphoretic or pallor Nutritional Appearance: Negative for cachectic HEENT Reports dry mucous membranes; Denies moist mucous membranes Negative for trauma or tenderness Mouth ED: Yes dry mucous membranes Mouth: dry mucous membranes Eyes PERRL and EOMs intact bilaterally General Eye ED: Negative for pale conjunctiva or scleral icterus Neck no lymphadenopathy, supple and no JVD General: Negative for tenderness Lymph Lymphatic: Negative for other Chest Wall inspection of chest normal and palpation of chest normal Resp normal respiratory effort and clear to auscultation bilaterally Effort and Inspection: Negative for retractions or pain with movement Auscultation: Negative for rales, rhonchi, wheezes or diminished lung sounds Cardio regular rate, regular rhythm, S1 normal heart sound, S2 normal heart sound and no murmurs Rate: Negative for bradycardia or tachycardic Rhythm: Negative for abnormal rhythm GI normal to inspection, nondistended, normoactive bowel sounds, non-tender, non-distended and no masses Inspection: Negative for abdominal distention Auscultation: normoactive bowel sounds Palpation: soft; Negative for tender, guarding or rebound tenderness present Back/Spine no CVA tenderness General Back: Negative for CVA tenderness Cervical Spine: Negative for cervical spine tenderness Thoracic Spine / Upper Back: Negative for thoracic spinal tenderness or paraspinal muscle tenderness Lumbar Spine / Lower Back: Negative for lumbar spinal tenderness Extremity normal to inspection General Extremety ED: Negative for edema, tenderness or other findings General Extremity: Negative for edema or other findings Neuro oriented x3 and CN's II-XII intact bilaterally Sensorium / Orientation: alert; Negative for orientation impaired, lethargic or stuporous Motor Exam: strength 5/5 throughout Psych mental status grossly normal Appearance: Negative for unkempt Attitude: No agitated Mood & Affect: Negative for depressed, anxious or tearful Skin no rashes or lesions noted and no wounds General Skin Exam: Negative for jaundice or pallor Lesions: No lesion noted Rashes: No rashes noted Trauma: Negative for abrasion Wounds: Negative for wounds noted MDM MDM MDM Narrative Medical decision making narrative: 79-year-old female with nausea, vomiting diarrhea since yesterday. Abdomen is benign. Clinically Jraeth is a viral gastroenteritis. She will receive Zofran for nausea. A liter normal saline to rehydrate her because clinically she looks dehydrated. Screening labs. I do not think she needs any imaging. Her abdomen is benign. Repeat exam patient doing well at 5:55 PM. Abdomen benign. She been able to drink ice water. She is feels comfortable being discharged home. She be written for Zofran. Fluids and rest. Increase diet slowly as tolerated. History & Record Review Discussion w/independent historian: Patient Additional record(s) reviewed:: Prior inpatient record, Prior outpatient record, Prior ED visit and Prior labs Lab Data Attestation: I reviewed the patient's lab results. Lab results narrative: CBC shows a white count of 8. H&H 12.9 and 42. Platelets 242. Electrolytes show a potassium of 3.0. Gap 8. Normal BUN of 10 creatinine 0.73. Liver enzymes unremarkable other than AST 97 ALT 81. Labs: Laboratory Results - last 24 hr 07/14/24 16:22 WBC 8.6 RBC 5.48 H Hgb 12.9 Hct 42.5 MCV 77.6 L MCH 23.5 L MCHC 30.4 L RDW Std Deviation 56.8 H RDW Coeff of Karon 20.8 H Plt Count 242 MPV 9.6 Immature Gran % (Auto) 0.600 Neut % (Auto) 74.9 H Lymph % (Auto) 10.3 L [place] % (Auto) 14.1 H Eos % (Auto) 0.0 Baso % (Auto) 0.1 Absolute Neuts (auto) 6.5 Absolute Lymphs (auto) 0.89 Nucleated RBC % 0 Atypical Lymphocytes RARE Plt Morphology Comment GIANT Anisocytosis 1+ Ovalocytes RARE Sodium 138 Potassium 3.0 L Chloride 103 Carbon Dioxide 28.0 Anion Gap 8 BUN 10 Creatinine 0.73 Estim Creat Clear Calc 56.19 Est GFR (MDRD) Af Amer 100 Est GFR (MDRD) Non-Af 82 BUN/Creatinine Ratio 13.8 Glucose 106 Calcium 9.8 Total Bilirubin 0.50 AST 97 H ALT 81 H Alkaline Phosphatase 99 Total Protein 8.1 Albumin 4.0 Globulin 4.1 Albumin/Globulin Ratio 1.0 Discharge Plan Triage Chief Complaint: General Illness ED Provider: Jose Antonio Marte Dx/Rx/DC Orders Clinical Impression: Viral gastroenteritis, Acute hypokalemia Instructions: ED Gastroenteritis, Viral (Adult) Prescriptions: New ondansetron 4 mg tablet,disintegrating 4 mg PO Q6H PRN (Reason: nausea and vomiting) Qty: 7 0RF No Action cholecalciferol (vitamin D3) 50 mcg (2,000 unit) capsule 4,000 unit PO DAILY Gemtesa 75 mg tablet 75 mg PO QDAY iron bisglycinate chelate 28 mg iron capsule 28 mg PO QDAY Qty: 90 1RF multivitamin with minerals 1 EACH tablet 1 tab PO DAILY biotin 2,500 MCG capsule 1 cap PO DAILY aspirin 81 mg Tablet,Chewable 81 mg PO BREAKFAST Qty: 0 0RF (DME) side rails for bed 0 .Route .MEDSUPPLY Qty: 1 0RF Rx Instructions: As directed (DME) Ultra-Light Rollator Misc See Rx Instructions .Route Qty: 1 0RF Rx Instructions: As directed atorvastatin 40 mg tablet 40 mg PO QHS Qty: 90 3RF clopidogrel 75 mg tablet 75 mg PO DAILY Qty: 90 3RF ropinirole 0.5 mg tablet 0.5 mg PO QHS Qty: 90 3RF Rx Instructions: administer 1-3 hours before bedtime sertraline 100 mg tablet 200 mg PO DAILY Qty: 180 3RF Rx Instructions: 200 mg PO daily; sumatriptan succinate 25 mg tablet See Rx Instructions PO .COMPLEX Qty: 14 1RF Rx Instructions: take 1 tab at onset of headache; if no relief may repeat 1 tab after at least 2 hrs; max = 4 tabs/24 hr PO omeprazole 40 mg capsule,delayed release(DR/EC) 40 mg PO DAILY Qty: 90 3RF sumatriptan succinate [Imitrex STATdose Pen] 6 mg/0.5 mL pen injector 6 mg subcut Q1-4H PRN (Reason: migraine headache) Qty: 1 2RF Rx Instructions: do not exceed 2 doses in a 24 hour period trazodone 50 mg tablet 25 mg PO DAILY PRN (Reason: insomnia) Qty: 10 0RF gabapentin 100 mg capsule 100 mg PO Q12H Qty: 180 1RF Slow Fe 137 mg (45 mg iron) tablet extended release 137 mg PO QDAY Qty: 90 1RF potassium chloride [Klor-Con M20] 20 mEq tablet,ER particles/crystals 20 meq PO QDAY Qty: 90 3RF Primary Care Provider: Katiana Rayo Referrals: Katiana Rayo MD [Primary Care Provider] - 3-5 Days if not improving Activity Restrictions/Additional Instructions: Plenty of fluids and rest. Slowly increase your diet as tolerated. Make sure you are drinking plenty of water, 7-Up and Gatorade to replace the fluids. Return if unable to keep fluids down or feeling worse. Follow-up with your doctor as needed. Zofran as needed for nausea which you may swallow or let dissolve under your tongue if you are too nauseated. Once you start eating make sure you are eating plenty of fruits and vegetables to replace the potassium and loss. Print Language: Chinese Disposition Disposition: Home, Self Care
[2024-07-14] MEDS: 0.9% Normal Saline (1000mL) 1,000 ML 999 ML IV (16:46)
[2024-07-14] MEDS: Ondansetron 4 MG/2 ML Vial IV (16:46)
[2024-07-14 16:51] LABS: Absolute Lymphocyte Count 0.89 X10^3/uL (0.83-4.51); Absolute Neutrophil Count 6.5 X10^3/uL (2.0-7.7); Basophil# 0.01 X10^3/uL; Basophil% 0.1 % (0-1); Hematocrit 42.5 % (37-47); Hemoglobin 12.9 g/dL (12.0-15.0); Lymphocyte # 0.89 X10^3/ul (0.83-4.51); Lymphocyte % 10.3 % (19-41); Mean Corp Hgb Conc 30.4 g/dL (32-36); Mean Corpuscular Hgb 23.5 pg (27.0-32.0); Mean Corpuscular Volume 77.6 fL (81-99); Mean Platelet Vol. 9.6 fl (6.2-12.0); Monocyte# 1.21 X10^3/uL; Monocyte% 14.1 % (0-10); NRBC Flagged by Analyzer 0 % (0-5); Neutrophil # 6.45 X10^3/uL (2.7-7.7); Neutrophil % 74.9 % (47-70); POSITIVE MORPHOLOGY YES; Platelet Count 242 K/mm3 (150-450); RBC Distribution Width CV 20.8 % (11.6-14.6); RBC Distribution Width SD 56.8 fl (35.1-43.9); Red Blood Count 5.48 M/mm3 (4.2-5.4); White Blood Count 8.6 K/mm3 (4.4-11.0)
[2024-07-14] MEDS: Morphine 4 MG/ML Syringe IV (16:58)
[2024-07-14 17:11] LABS: AST(SGOT) 97 U/L (15-37); Alanine Aminotransfer ALT/SGPT 81 U/L (13-56); Alkaline Phosphatase 99 U/L (45-117); Anion Gap 8 (5-15); BUN 10 mg/dL (7-18); BUN/Creat Ratio 13.8 RATIO (10-20); Calcium,Total 9.8 mg/dL (8.5-10.1); Chloride 103 mmol/L (98-107); Creatinine, Serum 0.73 mg/dL (0.55-1.02); EST Glomerular Filtration Rate 82 mL/min (>60); Est Glom Filt Rate - Afr Amer 100 mL/min (>60); Estimated Creatinine Clearance 56.19 ml/min; Globulin 4.1 g/dL (2.2-4.2); Glucose 106 mg/dL (74-106); Protein, Total 8.1 g/dL (6.4-8.2); Sodium Level 138 mmol/L (136-145)
[2024-07-14 17:14] LABS: Differential Indicated SCAN CRITERIA MET
[2024-07-14 17:17] LABS: Anisocytosis 1+; Atypical Lymphocyte RARE %; Ovalocyte RARE
[2024-07-14 17:18] LABS: Platelet Morphology GIANT
[2024-07-14 18:21] VITALS: BP 175/80; PULSE 93; RESP 18; TEMP 36.9; O2SAT 95
== END 2024-07-14 18:22 | disposition home or self-care (01) ==
PROVIDERS: Emergency Provider Emergency Medicine; PCP Internal Medicine; Visit Provider Emergency Medicine
DX: A08.4 Viral intestinal infection, unspecified (principal); J42 Unspecified chronic bronchitis; I10 Essential (primary) hypertension; E78.5 Hyperlipidemia, unspecified; E87.6 Hypokalemia; Z87.891 Personal history of nicotine dependence; Z79.899 Other long term (current) drug therapy; Z79.82 Long term (current) use of aspirin; Z79.02 Long term (current) use of antithrombotics/antiplatelets; D50.9 Iron deficiency anemia, unspecified; K21.9 Gastro-esophageal reflux disease without esophagitis
CPT/HCPCS: 80053; 85025; 96361; 96374; 96375; 99285; J2405

== ENCOUNTER 2024-08-26 07:22 | Emergency (ER) | payer MEDICARE, SELFPAY ==
[2024-08-26 07:23] VITALS: BP 167/93; PULSE 100; RESP 18; TEMP 36.6; O2SAT 98; BMI 36.6
--- NOTE | 2024-08-26 08:14 | CT_ITS ---
PROCEDURE: SPINE CERVICAL WITHOUT CONTRAS REASON FOR EXAM: Trauma TECHNIQUE: Cervical spine CT without contrast. COMPARISON: None. FINDINGS: Alignment: Normal Vertebrae: No acute fracture Soft Tissues: Unremarkable Scattered multilevel degenerative changes CT/Spine Cervical without Contras IMPRESSION: No acute CT process in the cervical spine. One or more dose reduction techniques were used (e.g., Automated exposure contr ol, adjustment of the mA and/or kV according to patient size, use of iterative reconstruction technique). Reading Location: [facility]
--- NOTE | 2024-08-26 08:14 | CT_ITS ---
EXAM: BRAIN/HEAD WITHOUT CONTRAST CLINICAL HISTORY: Trauma COMPARISON: None. TECHNIQUE: Noncontrast images of the head with multiplanar reconstructions. Dose reduction techniques were used including intermediate exposure control (AEC),iterative reconstruction technique, and/or mA and/or KV dose adjustments based on patient's size. FINDINGS: CT HEAD FINDINGS: Chronic changes. No acute intracranial hemorrhage, mass, mass effect, midline shift or pathologic extra-axial fluid collection. No hydrocephalus. Age- appropriate cerebral volume and white matter. Visualized paranasal sinuses and mastoid air cells are clear. The calvarium is grossly intact. CT/Brain/Head without Contrast IMPRESSION: No CT evidence of acute intracranial pathology. Reading Location: [facility]
--- NOTE | 2024-08-26 08:21 | EDS_ITS ---
HPI HPI - Fall History of Present Illness Chief Complaint: Fall Narrative Narrative: Chief complaint and HPI: Fall. 79-year-old female with past medical history of frequent falls, bilateral hip pain/arthritis, overactive bladder with urinary incontinence, CVA on Plavix presents for evaluation of fall. Patient states that she recently got a larger bed/mattress. She states that she was getting up for judaism when she rolled out of bed. States she fell on the floor and hit her head on the wall. She denies any LOC or neck pain. Denies any fever, chills, lightheadedness, vision changes, URI symptoms, chest pain, shortness of breath abdominal pain, nausea, vomiting, dysuria, hematuria. Patient states is not uncommon for her to fall. She states it was purely a mechanical fall. States she has been eating and drinking well. Endorses urinary frequency but states that she has a history of this and recently was placed on a medication for overactive bladder. Review of systems: See HPI Medications: As listed on the chart Allergies: As listed on the chart PFSH: Per chart Vital signs: As listed on the chart. Reviewed. Physical exam: Gen: A&O x3, NAD Head: Normocephalic, right frontal hematoma Eyes: No sclera icterus, conjunctiva clear, PERRL, EOMI ENT: TMs clear BL, dry mucous membranes, no swelling/lacerations/blood in the mouth or the nares, No nasal septal hematoma, no facial tenderness Neck: Trachea midline, No JVD, Nontender CV: RRR, no murmurs, no chest wall TTP Resp: Lungs CTA BL, no w/r/c GI: Abd soft, non-distended, non-tender, no r/r/g Musc: Full ROM, no deformity, no spinal TTP, no prem step-offs Skin: Warm, dry, intact Neuro: Alert, oriented, grossly intact, sensation intact, GCS 15 Psych: Cooperative, appropriate mood and affect [facility] Medical History Urinary incontinence Right hip pain Microcytic anemia Anxiety Rheumatoid arthritis Non-smoker Migraines TIA (transient ischemic attack) Stroke/cerebrovascular accident Generalized weakness Hypokalemia Abdominal pain Asthma DDD (degenerative disc disease) Obesity Frequent falls Essential (primary) hypertension Overactive bladder Chronic back pain Insomnia Hyperlipidemia Depression Osteoarthritis of left knee Iron deficiency anemia Localized swelling of chest wall Confusion Dark stools Left-sided chest wall pain Vitamin D deficiency Vision problems Pneumonia Osteoarthritis Neuropathy IBS (irritable bowel syndrome) Chronic headaches GERD (gastroesophageal reflux disease) H/O emotional problems Chronic bronchitis Home Medications ?Medication ?Instructions ?Recorded ?Last Taken ?Type cholecalciferol (vitamin D3) 50 4,000 unit PO DAILY GREY PPLEMENT 09/10/19 09/24/20 History mcg (2,000 unit) capsule biotin 2,500 mcg capsule 1 cap PO DAILY supplement 09/24/20 History multivitamin with minerals 1 tab PO DAILY supplement 0 09/24/20 09/24/20 History side rails for bed #1 ea 07/15/22 Unknown Rx walker (Ultra-Light Rollator misc) #1 ea 08/23/22 Unkn own Rx aspirin 81 mg chewable tablet 81 mg PO BREAKFAST #0 ta bs 09/28/23 Unknown Rx atorvastatin 40 mg tablet 40 mg PO QHS #90 tabs Unknown Rx clopidogrel 75 mg tablet 75 mg PO DAILY #90 tabs 09/23 04/17 Unknown Rx ropinirole 0.5 mg tablet 0.5 mg PO QHS restless legs #90 10/21/23 Unknown Rx tabs sertraline 100 mg tablet 200 mg (2 x 100 mg) PO DAILY mood 10/21/23 Unknown Rx #180 tabs sumatriptan succinate 25 mg tablet See Rx Instructions PO .COMPLEX 11/21/23 Unknown Rx #14 tabs omeprazole 40 mg capsule,delayed 40 mg PO DAILY stomac h #90 caps 01/13/24 Unknown Rx release sumatriptan succinate 6 mg/0.5 mL 6 mg (0.5 mL) subcut Q1-4H PRN 02/13/24 Unknown Rx subcutaneous pen injector (Imitrex migraine headache # 1 mL STATdose Pen) trazodone 50 mg tablet 25 mg (1/2 x 50 mg) PO DAILY PRN 02/21/24 Unknown Rx insomnia #10 tabs gabapentin 100 mg capsule 100 mg PO Q12H neuropathy #1 80 caps 05/11/24 Unknown Rx ferrous sulfate 137 mg (45 mg 137 mg PO QDAY #90 tabs 05/21/24 Unknown Rx iron) tablet,extended release (Slow Fe) iron bisglycinate chelate 28 mg PO QDAY #90 caps 05/21 Unknown Rx vibegron 75 mg tablet (Gemtesa) 75 mg PO QDAY 05/21/24 Unknown History potassium chloride 20 mEq 20 meq PO QDAY #90 tabs 05/26 12/15 Unknown Rx tablet,extended release(part/cryst) (Klor-Con M) ondansetron 4 mg disintegrating 4 mg PO Q6H PRN nausea and 07/14/24 Unknown Rx tablet vomiting #7 tabs Allergy/AdvReac Type Severity Reaction Status Date / Time adhesive tape Allergy Severe Area Sore Verified 08/26/24 07:23 cefpodoxime (From Vantin) Allergy Unknown Unknown Verified 08/26/24 07:23 codeine Allergy Unknown Unknown Verified 08/26/24 07:23 metronidazole (From Flagyl) Allergy Unknown Unknown Verified 08/26/24 07:23 sulfamethoxazole (From Allergy Unknown Unknown Verified 08/26/24 07:23 Bactrim) trimethoprim (From Bactrim) Allergy Unknown Unknown Verified 08/26/24 07:23 Sulfa (Sulfonamide Allergy Unknown Verified 08/26/24 07:23 Antibiotics) Family History Sister Anesthesia complication Breast cancer Hypertension Cancer Thyroid, rectal, kidney Thyroid disorder Diabetes Mother Arthritis Pancreatic cancer Depression Diabetes Father Colon cancer Hypertension CVA (cerebral vascular accident) Sister Cancer rectal/kidney/medullary Thyroid cancer Surgical History History of appendectomy History of left knee replacement History of left heart catheterization (10/14/20) 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 History of total right knee replacement History of gastric surgery History of hysterectomy History of Hx of breast reduction, elective History of back surgery History of hernia repair History of right knee joint replacement History of cholecystectomy Social History household members: none housing: apartment current occupational status: retired Smoking Status: Former smoker alcohol intake: never substance use type: does not use what type of physical activity do you participate in: none EXAM Physical Exam Const Vital Signs: 08/26/24 07:22 08/26/24 07:23 08/26/24 08:36 Temperature 97.8 F Temperature Source Oral Pulse Rate 100 89 Respiratory Rate 18 16 Respiratory Effort Normal Respiratory Depth Normal Respiratory Pattern Normal Blood Pressure 167/93 H 160/94 H Blood Pressure Mean 117 116 Pulse Ox 98 98 Oxygen Delivery Method Room Air Room Air Room Air 08/26/24 09:00 08/26/24 10:00 08/26/24 10:54 Temperature 98.9 F 98.7 F Temperature Source Oral Pulse Rate 89 64 89 Respiratory Rate 14 18 16 Respiratory Effort Respiratory Depth Respiratory Pattern Blood Pressure 171/64 H 168/89 H 161/64 H Blood Pressure Mean 99 115 96 Pulse Ox 98 98 99 Oxygen Delivery Method Room Air Room Air MDM MDM MDM Narrative Medical decision making narrative: 79-year-old female with past medical history of frequent falls, bilateral hip pain/arthritis, overactive bladder with urinary incontinence, CVA on Plavix presents for evaluation of fall. Patient states that her fall was purely mechanical. She denies any symptoms before or now. Physical exam is unremarkable except for right frontal hematoma and dry mucous membranes. Patient states she has been eating and drinking well. Although this was a purel y mechanical fall given her dry mucous membranes will obtain basic labs and give NS bolus to assess for dehydration or electrolyte abnormality. Patient endorses a history of urinary frequency however will get UA to assess for UTI for her urinary frequency. CT head and neck ordered. I do not think any further laboratory workup or imaging is needed at this time. CBC with mild leukocytosis of 15.5. Patient has baseline anemia. BMP without significant electrolyte abnormality or RICA. CT head and cervical spine without any acute pathology or traumatic injury. UA is positive for UTI. Urine culture ordered. On chart review, patient has a previous urine culture that grew out normal kong so I do not have previous sensitivities for antibiotics. Patient will be given a dose of Rocephin here and discharged home on Keflex. She states that her allergy to cefpodoxime was a mild rash. Patient ambulated in the emergency department without difficulty. Patient is stable to discharge home. Return precautions explained. Impression: 1. Mechanical fall on Plavix 2. UTI Lab Data Labs: Laboratory Results - last 24 hr 08/26/24 08/26/24 08:38 09:50 WBC 12.5 H RBC 4.73 Hgb 11.7 L Hct 38.8 MCV 82.0 MCH 24.7 L MCHC 30.2 L RDW Std Deviation 58.7 H RDW Coeff of Karon 19.6 H Plt Count 260 MPV 9.5 Immature Gran % (Auto) 0.700 Neut % (Auto) 71.6 H Lymph % (Auto) 15.6 L Cherry % (Auto) 10.7 H Eos % (Auto) 0.9 Baso % (Auto) 0.5 Absolute Neuts (auto) 9.0 H Absolute Lymphs (auto) 1.96 Nucleated RBC % 0 Sodium 141 Potassium 3.8 Chloride 107 Carbon Dioxide 27.0 Anion Gap 8 BUN 22 H Creatinine 0.65 Estim Creat Clear Calc 66.79 Est GFR (MDRD) Af Amer 112 Est GFR (MDRD) Non-Af 93 BUN/Creatinine Ratio 33.6 H Glucose 94 Calcium 9.0 Urine Color Yellow Urine Clarity Clear Urine pH 6.0 Ur Specific [place] 1.015 Urine Protein Negative Urine Glucose (UA) Normal Urine Ketones Negative Urine Occult Blood 10 H Urine Nitrite Negative Urine Bilirubin Negative Urine Urobilinogen Normal Ur Leukocyte Esterase 500 H Urine RBC 0-5 SEEN Urine WBC 5-10 SEEN Ur Squamous Epith Cells 0-5 SEEN Calcium Oxalate Crystal 1+ Urine Bacteria 1+ Urine Mucus 0 SEEN Radiography Diagnostic Testing: Clinical Impression(s) from Imaging Studies Brain CT 08/26/24 08:14 IMPRESSION: No CT evidence of acute intracranial pathology. Reading Location: [facility] Cervical Spine CT 08/26/24 08:14 IMPRESSION: No acute CT process in the cervical spine. One or more dose reduction techniques were used (e.g., Automated exposure control, adjustment of the mA and/or kV according to patient size, use of iterative reconstruction technique). Reading Location: [facility] Discharge Plan Triage Chief Complaint: Fall ED Provider: Abhay Barrios Dx/Rx/DC Orders Prescriptions: No Action cholecalciferol (vitamin D3) 50 mcg (2,000 unit) capsule 4,000 unit PO DAILY Gemtesa 75 mg tablet 75 mg PO QDAY iron bisglycinate chelate 28 mg iron capsule 28 mg PO QDAY Qty: 90 1RF multivitamin with minerals 1 EACH tablet 1 tab PO DAILY biotin 2,500 MCG capsule 1 cap PO DAILY ondansetron 4 mg tablet,disintegrating 4 mg PO Q6H PRN (Reason: nausea and vomiting) Qty: 7 0RF aspirin 81 mg Tablet,Chewable 81 mg PO BREAKFAST Qty: 0 0RF (DME) side rails for bed 0 .Route .MEDSUPPLY Qty: 1 0RF Rx Instructions: As directed (DME) Ultra-Light Rollator Misc See Rx Instructions .Route Qty: 1 0RF Rx Instructions: As directed atorvastatin 40 mg tablet 40 mg PO QHS Qty: 90 3RF clopidogrel 75 mg tablet 75 mg PO DAILY Qty: 90 3RF ropinirole 0.5 mg tablet 0.5 mg PO QHS Qty: 90 3RF Rx Instructions: administer 1-3 hours before bedtime sertraline 100 mg tablet 200 mg PO DAILY Qty: 180 3RF Rx Instructions: 200 mg PO daily; sumatriptan succinate 25 mg tablet See Rx Instructions PO .COMPLEX Qty: 14 1RF Rx Instructions: take 1 tab at onset of headache; if no relief may repeat 1 tab after at least 2 hrs; max = 4 tabs/24 hr PO omeprazole 40 mg capsule,delayed release(DR/EC) 40 mg PO DAILY Qty: 90 3RF sumatriptan succinate [Imitrex STATdose Pen] 6 mg/0.5 mL pen injector 6 mg subcut Q1-4H PRN (Reason: migraine headache) Qty: 1 2RF Rx Instructions: do not exceed 2 doses in a 24 hour period trazodone 50 mg tablet 25 mg PO DAILY PRN (Reason: insomnia) Qty: 10 0RF gabapentin 100 mg capsule 100 mg PO Q12H Qty: 180 1RF Slow Fe 137 mg (45 mg iron) tablet extended release 137 mg PO QDAY Qty: 90 1RF potassium chloride [Klor-Con M20] 20 mEq tablet,ER particles/crystals 20 meq PO QDAY Qty: 90 3RF Primary Care Provider: Katiana Rayo Referrals: Katiana Rayo MD [Primary Care Provider] - Print Language: Swiss
[2024-08-26 08:36] VITALS: BP 160/94; PULSE 89; RESP 16; O2SAT 98
[2024-08-26] MEDS: 0.9% Normal Saline (1000mL) 1,000 ML 1000 ML IV (08:37)
[2024-08-26 08:47] LABS: Absolute Lymphocyte Count 1.96 X10^3/uL (0.83-4.51); Basophil# 0.06 X10^3/uL; Basophil% 0.5 % (0-1); Eosinophil# 0.11 X10^3/uL; Eosinophils% 0.9 % (0-5); Hematocrit 38.8 % (37-47); Hemoglobin 11.7 g/dL (12.0-15.0); Lymphocyte # 1.96 X10^3/ul (0.83-4.51); Lymphocyte % 15.6 % (19-41); Mean Corp Hgb Conc 30.2 g/dL (32-36); Mean Corpuscular Hgb 24.7 pg (27.0-32.0); Mean Platelet Vol. 9.5 fl (6.2-12.0); Monocyte# 1.34 X10^3/uL; Monocyte% 10.7 % (0-10); NRBC Flagged by Analyzer 0 % (0-5); Neutrophil # 8.98 X10^3/uL (2.7-7.7); Neutrophil % 71.6 % (47-70); Platelet Count 260 K/mm3 (150-450); RBC Distribution Width CV 19.6 % (11.6-14.6); RBC Distribution Width SD 58.7 fl (35.1-43.9); Red Blood Count 4.73 M/mm3 (4.2-5.4); White Blood Count 12.5 K/mm3 (4.4-11.0)
[2024-08-26 09:00] VITALS: BP 171/64; PULSE 89; RESP 14; TEMP 37.2; O2SAT 98
[2024-08-26 09:00] LABS: Anion Gap 8 (5-15); BUN 22 mg/dL (7-18); BUN/Creat Ratio 33.6 RATIO (10-20); Chloride 107 mmol/L (98-107); Creatinine, Serum 0.65 mg/dL (0.55-1.02); EST Glomerular Filtration Rate 93 mL/min (>60); Est Glom Filt Rate - Afr Amer 112 mL/min (>60); Estimated Creatinine Clearance 66.79 ml/min; Glucose 94 mg/dL (74-106); Potassium 3.8 mmol/L (3.5-5.1); Sodium Level 141 mmol/L (136-145)
[2024-08-26] MEDS: Acetaminophen 325 MG Tablet 650 MG PO (09:55)
[2024-08-26 10:00] VITALS: BP 168/89; PULSE 64; RESP 18; O2SAT 98
[2024-08-26 10:02] LABS: Mucous, Urine 0 SEEN /hpf (<or=2+)
[2024-08-26 10:03] LABS: Color, Urine Yellow (Yellow); Glucose, Dipstick Normal (Normal); Ketone-Dipstick Negative (Negative); Leukocyte Esterase-Dipstick 500 /ul (Negative); Nitrite-Dipstick Negative (Negative); Occult Blood-Urine 10 /ul (Negative); Protein-Dipstick Negative (Negative); Specific Gravity, Urine 1.015 (1.002-1.030); Urine Bilirubin Dipstick Negative (Negative); Urine Clarity Clear (Clear); Urine Urobilinogen Normal (Normal)
[2024-08-26 10:18] LABS: Calcium Oxalate Crystals Ur 1+ /hpf (<or=2+); Red Blood Cells-Urine 0-5 SEEN /hpf (0-5); Squamous Epithelial Cells - UA 0-5 SEEN /hpf (5-10); White Blood Cells 5-10 SEEN /hpf (0-5)
[2024-08-26 10:19] LABS: Bacteria 1+ /hpf (None Seen)
--- NOTE | 2024-08-26 10:20 | CM.ED ---
Social Work Date of referral: 08/26/24 Reason for referral: Fall (History of falls) Referred by: Social Work Identification Patient consented to social work visit. Patient's friend was at patient's bedside. Patient has a history of falls. odd job worker provided verbal fall preventions education as well as provided multiple written hand-outs for fall preventions education for patient to take home. odd job worker talked with patient about an emergency response device that has fall detection which patient accepted. Patient reported she currently has a device but isn't sure it has fall detection or not. Additional DME includes: rollator, shower chair and a grab bar. No other needs or requests identified at this time. Kelle West, [employer], MILLER APPRENTICE
[2024-08-26] MEDS: Ceftriaxone 1 GM/50 ML BAG IV (10:53)
[2024-08-26 10:54] VITALS: BP 161/64; PULSE 89; RESP 16; TEMP 37.1; O2SAT 99
== END 2024-08-26 11:22 | disposition home or self-care (01) ==
PROVIDERS: Emergency Provider Surgery; PCP Internal Medicine; Visit Provider Surgery
DX: S00.83XA Contusion of other part of head, initial encounter (principal); J42 Unspecified chronic bronchitis; M25.551 Pain in right hip; M25.552 Pain in left hip; W06.XXXA Fall from bed, initial encounter; N39.0 Urinary tract infection, site not specified; R32 Unspecified urinary incontinence; I10 Essential (primary) hypertension; E78.5 Hyperlipidemia, unspecified; N32.81 Overactive bladder; Z79.82 Long term (current) use of aspirin; Z79.02 Long term (current) use of antithrombotics/antiplatelets; Z79.899 Other long term (current) drug therapy; Z87.891 Personal history of nicotine dependence; Z86.73 Personal history of transient ischemic attack (TIA), and cerebral infarction without residual deficits
CPT/HCPCS: 70450; 72125; 80048; 81001; 85025; 87086; 87088; 96361; 96365; 99285; A4216

== ENCOUNTER 2025-01-28 09:00 | Outpatient (RCR) | payer MEDICARE, SELFPAY ==
--- NOTE | 2024-12-19 13:57 | HP.PTEVAL_ITS ---
Patient's Visit Information Visit Information Visit Information: VANESSA LKINE is a 79 year old F referred to Physical Therapy by Dr. Katiana Rayo MD with a diagnosis of DDD R hip, balance issue, freq falls, gait dysfunction. Date of Evaluation: 12/19/24 Physical Therapist: JOHN Vernon Visit Plan Frequency: 2x /Week Duration: 2 Months Plan: Gait belt at all times! Pt likes to fall BW with EC in like 3 seconds. 2X/ week for 8 weeks for LE strength, functional strength, Balance (side stepping, head turns with and without UE support), endurance, gait training with HEP Subjective Subjective: Pt reports that she is a fall risk and falls FW and BW with no warning and they do not know why. Her falls are not when she is using her rollator. She has had 2 back operations and her R hip and R shoulder is not good. The last fall was bad and she fell on he R side of head and she caught her toe on the rug and went down on her face and that time she was using the rollator and it went flying. When she falls she can not get up. Her last fall was in September. She is able to get out of her lift chair at home and then she has a 2 seater couch that she can get out of or a straight chair with the use of her arms. She lives alone. She is able to get in and out of the bed with a bed rail. She has no steps to get in and out of her home. She has scientology friends that take her to the grocery store. If she goes to [facility] then she will use a rolling cart. Objective Objective: Gait: walks with a rollator with shorter step length and decreased heel to toe pattern with a rollator. SOB getting back to the treatment rooms. LE MMT: R hip flex 5.7 and L 5.7 R knee ext 7.2 and L 8.4 R knee flex 6.2 and L 5.7 Standing heel and toe raises: Pt is able to heel raise about 1/2 normal ROM using her UE's. She is not able to toe lift on the L and able to to toe lift on the R for 1/2 normal ROM Sit to stand: able to get up using one arm to help get up on first attempt. Standing with EC for 3 seconds and then loses her balance backwards and therapist helps catch her from falling back into the chair. Side stepping along the mat table with min A and occ hand touching the mat table Turning 360 degrees she is able to do it with some UE touching to balance herself. Balance/Special Test Scores Lower Extremity Functional Score: 29 Goals Goal 1:: I HEP Goal Time Frame: 6-8 Weeks Goal 2:: Increase LE strength (at the time of the eval: LE MMT: R hip flex 5.7 and L 5.7 R knee ext 7.2 and L 8.4 R knee flex 6.2 and L 5.7). Goal Time Frame: 6-8 Weeks Goal 3:: Be able to side step without UE support but CGA length of // bars to be able to work around her kitchen Goal Time Frame: 6-8 Weeks Goal 4:: Be able to stand with EC X 10 seconds with no LOB Goal Time Frame: 6-8 Weeks Goal 5:: Be able to walk 2 laps with rollator without SOB Goal Time Frame: 6-8 Weeks Rehabilitation Potential Rehabilitation Potential: Good Anticipated Interventions Patient/Client Instruction: Educate patient on: Condition and Plan of Care For the Purpose of:: To decrease pain, To increase ROM, To improve nutrient delivery to tissue, To improve muscle performance and motor function, To improve ability to perform ADL's, To improve performance and independence with ADL's, To decrease level of supervision to perform tasks, To improve ability of physical actions for home/community/work/leisure, To improve gait and locomotor functions, To improve health of tissue, To improve endurance, To improve balance and To improve safety with gait Therapeutic Exercise to Include: Strength training, Endurance training, Balance training, Postural training, Flexibilty training, Gait and locomotor training, Neuromotor development, Active ROM and Dynamic Lumbar Stabilization For the Purpose of:: To decrease pain, To improve muscle performance and motor function, To improve ability to perform ADL's, To increase tolerance to activity/condition/position, To improve performance and independence with ADL's, To decrease level of supervision to perform tasks, To improve gait and locomotor functions, To improve health of tissue, To decrease soft tissue restriction, To increase flexibility/ROM, To improve endurance, To improve balance and To improve safety with gait Functional Training to Include: Gait training For the Purpose of:: To improve gait and locomotor functions and To improve safety with gait Text: Thank you for the opportunity to evaluate your patient. For Medicare and Medicare HMO plans, please review the plan of care and approve it. It will need to be FAXED BACK to us at [phone] for Medicare purposes. For Medicare only, by signing this I certify the plan of care. Please let me know if there are questions or concerns regarding this plan of care. Physician Signature: Date:
--- NOTE | 2025-01-28 09:58 | HP.PTDCSUM ---
Discharge Summary D/C summary: It has been my pleasure to treat VANESSA KLINE referred by Dr. Katiana Rayo MD, with the diagnosis of DDD R hip, balance issue, freq falls, gait dysfunction for a total of 5 visit(s). Discharge Date: 01/28/25 Please see the following information for a summary of their discharge status. Subjective Subjective: Pt feels that PT is going fairly well. She still fall back with EC. She reports that the machines sometimes bother her shoulder. She does not feel that she needs additional therapy. She has had no falls. She has a girl that helps her at her house. She is able to bath and dress herself. Pain Hips: Pain Intensity (Out of 10): 0 Shoulders: Pain Intensity (Out of 10): 0 Back: Pain Intensity (Out of 10): 0 Overall Improvement % Improvement: 90 Objective Objective/Function: Gait: walked back to the treatment room from the waiting room and was SOB and took some time to recover LE MMT: R hip flex 12.2 and L 10.2 R knee ext 17.7 and L 16.7 R knee flex 15.9 and L 14.8 Pt is able to walk 2 laps around dept with rollator and needed to stop and rest for 20 seconds twice and was SOB after and took a few min to recover. Standing with EC X 6- 8 seconds Goals Goal 1:: I HEP Goal Progress: Goal Met Goal 2:: Increase LE strength (at the time of the eval: LE MMT: R hip flex 5.7 and L 5.7 R knee ext 7.2 and L 8.4 R knee flex 6.2 and L 5.7). Goal Progress: Goal Met Goal 3:: Be able to side step without UE support but CGA length of // bars to be able to work around her kitchen Goal Progress: Goal Met Goal 4:: Be able to stand with EC X 10 seconds with no LOB Goal Progress: Not Progressing Goal 5:: Be able to walk 2 laps with rollator without SOB Goal Progress: Progressing Plan Plan: DC PT D/C Information Discharge Comments: DC PT to HEP d/c sentence: If there are questions or concerns regarding this patient's physical therapy, please feel free to call me at [phone]. Thank you for the referral of this patient. Sincerely, Dulce Maria Lance, MPT Balance/Gait/Functional tests Balance/Special Test Scores Lower Extremity Functional Score: 44 Improvement % Improvement: 90
== END 2025-01-28 11:22 | disposition home or self-care (01) ==
LOC: PT 09:00
PROVIDERS: PCP Internal Medicine; Referring Provider Internal Medicine; Visit Provider Internal Medicine
DX: M16.11 Unilateral primary osteoarthritis, right hip (principal); R26.2 Difficulty in walking, not elsewhere classified; R29.6 Repeated falls; R26.89 Other abnormalities of gait and mobility
CPT/HCPCS: 97110; 97162; 97530

== ENCOUNTER → 2025-06-25 | Outpatient (CLI) | payer MEDICARE, SELFPAY | END | disposition home or self-care (01) | PROVIDERS: PCP Internal Medicine; Visit Provider Physician Assistant | DX: R30.0 Dysuria (principal) | CPT/HCPCS: 87086; 87088 ==

== ENCOUNTER 2025-07-01 13:51 | Inpatient (IN) | payer MEDICARE, SELFPAY ==
[2025-07-01] VITALS (9 sets, daily range): BP systolic 144–194; BP diastolic 77–100; PULSE 89–138; RESP 17–26; TEMP 35.9–36.9; O2SAT 92–100; BMI 39.2; BMI 40.1
--- NOTE | 2025-07-01 14:21 | EKG12_ITS ---
Test Reason : PALPS/SOB Blood Pressure : */* mmHG Vent. Rate : 114 BPM Atrial Rate : 114 BPM P-R Int : 160 ms QRS Dur : 84 ms QT Int : 338 ms P-R-T Axes : 66 28 66 degrees QTcB Int : 465 ms Sinus tachycardia Right atrial enlargement Cannot rule out Inferior infarct , age undetermined Abnormal ECG Nonspecific ST/T wave Abnormaltity Confirmed by Felipe Thornton ([id number]), acquisition editor JODI SANTILLAN ([id number]) on 07/03/2025 11:31:48 AM Referred By: NEGIN/HONEY Confirmed By: Felipe Thornton
--- NOTE | 2025-07-01 14:23 | EX.ED.DYSGE1 ---
HPI History of Present Illness Chief Complaint: Shortness of Breath Informant: patient, friend and PCP Narrative Narrative: Patient is an 80-year-old female with a history of mild CVA presenting with altered mental status and dyspnea. Patient is accompanied by a friend who is supplementing history. - Last week, patient developed dysuria and was evaluated at urgent care, where a urinalysis was positive for UTI; she was prescribed Macrobid. - Shortly after starting Macrobid, she experienced increased confusion and lethargy. - PCP was contacted 3 days ago and advised discontinuing Macrobid and starting Cipro; patient has taken one dose of Cipro today with food. - Mental status has improved slightly but is not at baseline; still a little off per friend. - PCP noted tachycardia (HR 120) today and referred her to the ED for further evaluation. - Reports dyspnea and mild nausea; denies chest pain, emesis, diarrhea, abdominal pain, back pain, or cough. - Taking clopidogrel due to a history of mild CVA, no anticoagulants. - Denies edema. [facility] Medical History (Updated 07/01/25 @ 15:[address] Cam Delgado MD) Urinary tract infection Sinus tachycardia Subconjunctival hemorrhage Conjunctival hemorrhage of left eye Balance problem Urinary incontinence Right hip pain Microcytic anemia Anxiety Rheumatoid arthritis Non-smoker Migraines TIA (transient ischemic attack) Stroke/cerebrovascular accident Generalized weakness Hypokalemia Abdominal pain Asthma DDD (degenerative disc disease) Obesity Frequent falls Essential (primary) hypertension Overactive bladder Chronic back pain Insomnia Hyperlipidemia Depression Osteoarthritis of left knee Iron deficiency anemia Localized swelling of chest wall Confusion Dark stools Left-sided chest wall pain Vitamin D deficiency Vision problems Pneumonia Osteoarthritis Neuropathy IBS (irritable bowel syndrome) Chronic headaches GERD (gastroesophageal reflux disease) H/O emotional problems Chronic bronchitis Home Medications ?Medication ?Instructions ?Recorded ?Last Taken ?Type multivitamin with minerals 1 tab PO DAILY supplement 09/24/20 06/30/25 History sumatriptan succinate 6 mg/0.5 mL 6 mg (0.5 mL) subcut Q1-4H PRN 12/10/24 Unknown Rx subcutaneous pen injector (Imitrex migraine headache #1 mL STATdose Pen) walker (Ultra-Light Rollator misc) #1 ea 01/07/25 Unknown Rx atorvastatin 40 mg tablet 40 mg PO QHS #90 tabs 04/03/25 06/30/25 Rx clopidogrel 75 mg tablet 75 mg PO DAILY #90 tabs 04/03/25 06/30/25 Rx gabapentin 100 mg capsule 100 mg PO Q12H neuropathy #180 caps 04/03/25 06/30/25 Rx omeprazole 40 mg capsule,delayed 40 mg PO DAILY stomach #90 caps 04/03/25 06/30/25 Rx release potassium chloride 20 mEq 20 meq PO QDAY #90 tabs 04/03/25 06/30/25 Rx tablet,extended release(part/cryst) (Klor-Con M) ropinirole 0.5 mg tablet 0.5 mg PO QHS restless legs #90 04/03/25 06/30/25 Rx tabs sertraline 100 mg tablet 200 mg (2 x 100 mg) PO DAILY mood 04/03/25 06/30/25 Rx #180 tabs trazodone 50 mg tablet 25 mg (1/2 x 50 mg) PO DAILY PRN 05/20/25 Unknown Rx insomnia #30 tabs Gemtesa 75 mg tablet (vibegron) 75 mg PO QDAY #90 tabs 05/24/25 06/30/25 Rx ciprofloxacin HCl 250 mg tablet 250 mg PO BID 3 days #6 tabs 07/01/25 07/01/25 Rx Allergy/AdvReac Type Severity Reaction Status Date / Time adhesive tape Allergy Severe Area Sore Verified 07/01/25 13:55 cefpodoxime (From Vantin) Allergy Unknown Unknown Verified 07/01/25 13:55 codeine Allergy Unknown Unknown Verified 07/01/25 13:55 metronidazole (From Flagyl) Allergy Unknown Unknown Verified 07/01/25 13:55 sulfamethoxazole (From Allergy Unknown Unknown Verified 07/01/25 13:55 Bactrim) trimethoprim (From Bactrim) Allergy Unknown Unknown Verified 07/01/25 13:55 Sulfa (Sulfonamide Allergy Unknown Verified 07/01/25 13:55 Antibiotics) Family History Sister Anesthesia complication Breast cancer Hypertension Cancer Thyroid, rectal, kidney Thyroid disorder Diabetes Mother Arthritis Pancreatic cancer Depression Diabetes Father Colon cancer Hypertension CVA (cerebral vascular accident) Sister Cancer rectal/kidney/medullary Thyroid cancer Surgical History History of appendectomy History of left knee replacement History of left heart catheterization (10/14/20) 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 History of total right knee replacement History of gastric surgery History of hysterectomy History of Hx of breast reduction, elective History of back surgery History of hernia repair History of right knee joint replacement History of cholecystectomy Social History household members: none housing: apartment current occupational status: retired Smoking Status: Former smoker alcohol intake: never substance use type: does not use what type of physical activity do you participate in: none ROS ROS ED Constitutional Constitutional ED: Reports malaise and weakness; Denies chills or fever(s) Eyes Eyes: Denies change in vision or diplopia ENT ENT ED: Denies rhinorrhea or sore throat Cardiovascular Cardiovascular: Denies chest pain, palpitations or racing heartbeat Respiratory/Chest Respiratory/Chest: Reports dyspnea; Denies cough Gastrointestinal Gastrointestinal: Reports nausea; Denies abdominal pain, diarrhea or vomiting Genitourinary Genitourinary ED: Denies dysuria or hematuria Musculoskeletal Musculoskeletal: Denies back pain or neck pain Integumentary Denies abscess or rash Neurologic Neurologic: Reports confusion; Denies headache(s), paresthesias or weakness Psychiatric Psychiatric: Denies anxiety or suicidal thoughts EXAM Physical Exam Const Vital Signs: 07/01/25 13:53 07/01/25 13:59 07/01/25 14:29 Temperature 96.6 F L Temperature Source Temporal Pulse Rate 138 H Respiratory Rate 26 H Respiratory Effort Short of Breath Respiratory Pattern Tachypnea Blood Pressure 194/96 H Blood Pressure Mean 128 Pulse Ox 92 Oxygen Delivery Method Room Air Room Air 07/01/25 15:09 07/01/25 15:09 Temperature 98.5 F Temperature Source Oral Pulse Rate 125 H 91 Respiratory Rate 18 18 Respiratory Effort Respiratory Pattern Blood Pressure 144/87 H 144/87 H Blood Pressure Mean 106 106 Pulse Ox 98 98 Oxygen Delivery Method Room Air Room Air Positive well nourished, well developed and obese General Appearance ED: well developed and NAD Nutritional Appearance: obese HEENT Reports moist mucous membranes normocephalic and atraumatic Eyes PERRL and EOMs intact bilaterally Neck full ROM and supple Resp normal respiratory effort and clear to auscultation bilaterally Cardio regular rate, regular rhythm and no murmurs Rate: tachycardic GI non-tender and non-distended Auscultation: normoactive bowel sounds Palpation: soft Back/Spine no CVA tenderness General Back: other FROM Extremity normal to inspection General Extremety ED: Negative for edema, pulses abnormal or tenderness General Extremity: Negative for edema or pulses abnormal Neuro oriented x3, CN's II-XII intact bilaterally and no sensory deficits noted Sensorium / Orientation: awake and alert Motor Exam: strength 5/5 throughout Psych mental status grossly normal Skin no rashes or lesions noted and no wounds MDM MDM MDM Narrative Medical decision making narrative: Patient presenting from the office with a heart rate that was 120, she was around 140 when checked in by triage (was not on the monitor when her HR was this fast), her EKG showed a heart rate of 118 sinus tachycardia and her chest x-ray 1 view on my interpretation is normal performed because she was feeling a little dyspneic although she is not feeling tachycardic. Considering possibility of congestive heart failure although her proBNP came back very low ruling that out, sepsis which is on the differential given her lactic acid of 2.4, she does not apparently have pneumonia which was in the differential, PE is to be considered, as well as a dysrhythmia which I think is higher on the list. We do not have anything on the monitor showing a definitive serious arrhythmia, but after receiving 3 or 400 cc of a 1 L fluid bolus, her heart rate is 85. The other vital signs are normal and stable, she states that she feels fine, we are continuing workup of having the EKG repeated to document sinus rhythm there and see if there is any difference on her other EKG, my suspicion is that she had a dysrhythmia such as A-fib with RVR for instance, and had spontaneously converted to sinus tachycardia by the time we had the initial EKG analysis slowed down. We did not give her any rate control medications, given that differential diagnosis above. At this time checked out oncoming physician at shift change for further test interpretation and disposition. Lab Data Attestation: I reviewed the patient's lab results. Labs: Laboratory Results - last 24 hr 07/01/25 07/01/25 14:05 14:33 WBC 9.6 RBC 5.23 Hgb 13.5 Hct 43.8 MCV 83.7 MCH 25.8 L MCHC 30.8 L RDW Std Deviation 49.9 H RDW Coeff of Karon 16.3 H Plt Count 309 MPV 9.9 Immature Gran % (Auto) 0.600 Neut % (Auto) 69.3 Lymph % (Auto) 18.2 L Rich % (Auto) 9.4 Eos % (Auto) 2.1 Baso % (Auto) 0.4 Absolute Neuts (auto) 6.7 Absolute Lymphs (auto) 1.75 Nucleated RBC % 0 PT 13.7 INR 1.0 APTT 30.7 Sodium 140 Potassium 3.9 Chloride 102 Carbon Dioxide 25.1 Anion Gap 13 BUN 19 Creatinine 0.75 Estim Creat Clear Calc 68.11 Est GFR (MDRD) Non-Af 81 BUN/Creatinine Ratio 25.6 H Glucose 147 H Lactic Acid 2.4 H* Calcium 9.7 Total Bilirubin 0.42 AST 32 ALT 31 Alkaline Phosphatase 93 Troponin T High Sens 12 NT pro BNP II 153 Total Protein 7.5 Albumin 4.3 Globulin 3.1 Albumin/Globulin Ratio 1.4 Radiography Diagnostic Testing: Clinical Impression(s) from Imaging Studies Chest X-Ray 07/01/25 14:40 IMPRESSION: Mild pulmonary vascular congestion. No focal consolidation. Reading Location: [facility] Rhythm Strip Rhythm Strip: narrow complex tachycardia Rate: 140 Ectopy: None EKG Initial EKG: Attestation: I personally reviewed and interpreted this EKG as follows: Interpretation: No Acute Injury Pattern and Sinus Tachycardia Comments: Borderline long QTc. Normal axis. QRS narrow, normal CO. Discharge Plan Triage Chief Complaint: Shortness of Breath Other Complaint: Palpitations ED Provider: Cam Delgado Dx/Rx/DC Orders Clinical Impression: Delirium, Tachycardia, paroxysmal Prescriptions: No Action ciprofloxacin HCl 250 mg tablet 250 mg PO BID 3 Days Qty: 6 0RF Patient Comments: pt has only had 1 dose as of 07/01/25 1411 multivitamin with minerals 1 EACH tablet 1 tab PO DAILY sumatriptan succinate [Imitrex STATdose Pen] 6 mg/0.5 mL pen injector 6 mg subcut Q1-4H PRN (Reason: migraine headache) Qty: 1 2RF Rx Instructions: do not exceed 2 doses in a 24 hour period (DME) Ultra-Light Rollator Misc See Rx Instructions .Route Qty: 1 0RF Rx Instructions: As directed atorvastatin 40 mg tablet 40 mg PO QHS Qty: 90 3RF clopidogrel 75 mg tablet 75 mg PO DAILY Qty: 90 3RF gabapentin 100 mg capsule 100 mg PO Q12H Qty: 180 3RF omeprazole 40 mg capsule,delayed release(DR/EC) 40 mg PO DAILY Qty: 90 3RF potassium chloride [Klor-Con M20] 20 mEq tablet,ER particles/crystals 20 meq PO QDAY Qty: 90 3RF ropinirole 0.5 mg tablet 0.5 mg PO QHS Qty: 90 3RF Rx Instructions: administer 1-3 hours before bedtime sertraline 100 mg tablet 200 mg PO DAILY Qty: 180 3RF Rx Instructions: 200 mg PO daily; trazodone 50 mg tablet 25 mg PO DAILY PRN (Reason: insomnia) Qty: 30 0RF Gemtesa 75 mg tablet 75 mg PO QDAY Qty: 90 0RF Primary Care Provider: Katiana Rayo Referrals: Katiana Rayo MD [Primary Care Provider, Internal Medicine - [facility]] Print Language: Bolivian
--- NOTE | 2025-07-01 14:24 | ED.RN ---
additional patient contact information Dulce Maria (daughter) [phone] Erika [phone]
[2025-07-01] MEDS: 0.9% Normal Saline (1000mL) 1,000 ML 999 ML IV (14:36)
--- NOTE | 2025-07-01 14:40 | RAD_ITS ---
PROCEDURE: CHEST 1 VIEW (PORTABLE) 07/01/2025 REASON FOR EXAM: SOB TECHNIQUE: Frontal view of the chest. COMPARISON: 09/26/2023 FINDINGS: No focal consolidation. Mild pulmonary vascular congestion. No pleural effusion or pneumothorax. Cardiac silhouette is within normal limits. No acute fractures. Neurostimulator device noted. RAD/Chest 1 View (Portable) IMPRESSION: Mild pulmonary vascular congestion. No focal consolidation. Reading Location: [id number]
[2025-07-01 14:44] LABS: Hematocrit 43.8 % (37-47); Hemoglobin 13.5 g/dL (12.0-15.0); Immature Granulocytes Count 0.060 X10^3/uL (0.0-0.0); Mean Corp Hgb Conc 30.8 g/dL (32-36); Mean Corpuscular Volume 83.7 fL (81-99); Mean Platelet Vol. 9.9 fl (6.2-12.0); NRBC Flagged by Analyzer 0 % (0-5); Platelet Count 309 K/mm3 (150-450); RBC Distribution Width CV 16.3 % (11.6-14.6); RBC Distribution Width SD 49.9 fl (35.1-43.9); Red Blood Count 5.23 M/mm3 (4.2-5.4); White Blood Count 9.6 K/mm3 (4.4-11.0)
[2025-07-01 15:02] LABS: Prothrombin Time (Protime)PT. 13.7 SECONDS (11.7-14.9)
[2025-07-01 15:03] LABS: Partial Thromboplast Time 30.7 Seconds (24.1-36.2)
[2025-07-01 15:24] LABS: AST(SGOT) 32 U/L (<=31); Alanine Aminotransfer ALT/SGPT 31 U/L (<=34); Albumin, Serum 4.3 g/dL (3.4-4.8); Alkaline Phosphatase 93 U/L (35-104); Anion Gap 13 (5-15); BUN 19 mg/dL (4-19); BUN/Creat Ratio 25.6 RATIO (10-20); Calcium,Total 9.7 mg/dL (7.6-11.0); Carbon Dioxide 25.1 mmol/L (21.0-32.0); Chloride 102 mmol/L (98-108); Estimated Creatinine Clearance 68.11 ml/min (50-250); Globulin 3.1 g/dL (2.2-4.2); Glucose 147 mg/dL (70-99); Potassium 3.9 mmol/L (3.3-5.1); Pro- Brain NATRIURETIC PEPTIDE 153 pg/mL (<=1800); Troponin T High Sensitivity 12 ng/L (<=14)
--- NOTE | 2025-07-01 15:32 | EKG12_ITS ---
Test Reason : REPRAT-RHYTHM CHANGE Blood Pressure : */* mmHG Vent. Rate : 90 BPM Atrial Rate : 90 BPM P-R Int : 154 ms QRS Dur : 86 ms QT Int : 384 ms P-R-T Axes : 21 33 70 degrees QTcB Int : 469 ms Normal sinus rhythm Normal ECG Confirmed by Felipe Thornton ([id number]), primer expeditor and drier JODI SANTILLAN ([id number]) on 07/03/2025 11:32:36 AM Referred By: Confirmed By: Felipe Thornton
[2025-07-01 15:51] LABS: D-Dimer Quantitative (DVT/PE) 0.69 FEU/ug/m (0.27-0.49)
--- NOTE | 2025-07-01 15:55 | ED.RN ---
Dr Silverman notified of critical d-dimer
[2025-07-01 15:58] LABS: Color, Urine Yellow (Yellow); Glucose, Dipstick Normal (Normal); Ketone-Dipstick Negative (Negative); Leukocyte Esterase-Dipstick Negative /ul (Negative); Nitrite-Dipstick Negative (Negative); Occult Blood-Urine Negative /ul (Negative); Protein-Dipstick 30 mg/dl (Negative); Specific Gravity, Urine 1.025 (1.002-1.030); Urine Bilirubin Dipstick Negative (Negative)
[2025-07-01 16:11] LABS: Mucous, Urine 4+ /hpf (<or=2+); Red Blood Cells-Urine 0-5 SEEN /hpf (0-5); Squamous Epithelial Cells - UA 25-50 SEEN /hpf (5-10)
[2025-07-01 16:28] LABS: Troponin T High Sens 2 HR 11 ng/L (<=14)
--- NOTE | 2025-07-01 16:57 | CASEMGMT ---
Care Management Face to Face with patient for initial transition planning/care coordination assessment in the ED. This narrative writer introduced self and role at [facility]. Patient alert and oriented. Patient willing to participate in assessment and is able to answer all questions appropriately. Care providers, pharmacy, and demographics verified. Admitting Diagnosis: Encephalopathy Other diagnosis history: CVA, GERD, depression, restless leg syndrome, overactive bladder PCP: Girma Specialists: Rowdy, pain management Preferred Pharmacy: [facility] Insurance: [employer] Medicare O Prescription Benefit: yes Living Will/HPOA: daughter Dulce Maria. Sister Marni. LNOK: daughter, Dulce Maria. Sister, Marni. Living Arrangements: patient lives alone in a ground floor apartment with no steps to enter. Patient reports to be independent with ADLs, but states IADLs getting ahead of me. Transportation: friend Erika often drives patient. DME: shower chair, grab bars, rollator, medical alert HHC: [facility] HHC in past SNF/Rehab: [facility] in past Patient goals: Patient wishes to discharge home and states likely needing HHC. Patient states likely needing some help with IADLs in future, specifically mentioning dishes as a barrier when patient is not feeling well. Disposition Plan: admission to acute; RN CM/SW to follow for discharge planning needs that may arise. Sadia Mosley, JACKSCREW MAN, TIME SIGNAL WIRER
--- NOTE | 2025-07-01 17:32 | HP.PCM.HOS_ITS ---
HPI - General General Date of Admission: 07/01/25 Date of Service: 07/01/25 Chief Complaint: Confusion and intermittent SOB HPI Narrative VANESSA KLINE, is [id number] female history of CVA, GERD, depression, restless leg syndrome, overactive bladder presented to [facility] ED 07/01/2025 with altered mental status and shortness of breath. Reportedly last week developed dysuria and was evaluated at urgent care, was prescribed Macrobid for UTI however shortly after starting it she had increased confusion lethargy. 3 days ago PCP discontinued Macrobid and switch her to Cipro, has only taken 1 dose. Per friend who supplemented history mental status slightly improved but not back to baseline. PCP noted heart rate of 120 today and referred her to the ED for further evaluation. In the ED temp 96.6, heart rate 138, respiratory rate 26 and blood pressure 194/96 with pulse ox 92% on room air. EKG demonstrated sinus tachycardia. CBC with normal white blood cell count of 9.6 and hemoglobin 13.5, CMP with BUN of 19 creatinine 0.75, glucose 147, lactic acid 2.4, troponin 12 w/ repeat 11, proBNP 153, ddimer 0.69, UA possibly poor catch due to squamous epithelial cells and mucus but negative nitrite, leuk esterase and white cells. Chest x-ray with mild pulmonary vascular congestion with no focal consolidation. Given patient does not seem back to baseline mental status zepeda, the does have some improvement, she lives at home alone and was concerned about going home. Initially when she came in heart rate reportedly was up to 140s but by the time she was placed on the monitor she was lower, ED physician was concerned she may have had tachyarrhythmia converted and also felt like she needed to be monitored on telemetry for further dysrhythmia. Hospitalist contacted for admission for her metabolic encephalopathy and tachycardia. Patient evaluated bedside. She reports history as above and that her mental status rapidly worsened on Macrobid and slowly proved over the past day since being switched to ciprofloxacin but is still not back to normal, also notices shortness of breath mostly on exertion. No cough, no chest pain, has not noted any palpitations. No fevers noted. Did answer orientation questions correctly but took a second to do so. Denies any swelling lower extremities. Denies any current urinary or bowel complaints COUNTS INCLUDE 234 BEDS AT THE [facility] Medical History (Updated 07/01/25 @ 17:[address] Dilia Best MD) Abdominal pain Anxiety Asthma Balance problem Chronic back pain Chronic bronchitis Chronic headaches Confusion Conjunctival hemorrhage of left eye Dark stools DDD (degenerative disc disease) Depression Essential (primary) hypertension Frequent falls Generalized weakness GERD (gastroesophageal reflux disease) H/O emotional problems Hyperlipidemia Hypokalemia IBS (irritable bowel syndrome) Insomnia Iron deficiency anemia Left-sided chest wall pain Localized swelling of chest wall Microcytic anemia Migraines Neuropathy Non-smoker Obesity Osteoarthritis Osteoarthritis of left knee Overactive bladder Pneumonia Rheumatoid arthritis Right hip pain Sinus tachycardia Stroke/cerebrovascular accident Subconjunctival hemorrhage TIA (transient ischemic attack) Urinary incontinence Urinary tract infection Vision problems Vitamin D deficiency Home Medications ?Medication ?Instructions ?Recorded ?Last Taken ?Type multivitamin with minerals 1 tab PO DAILY supplement 0 09/24/20 06/30/25 History sumatriptan succinate 6 mg/0.5 mL 6 mg (0.5 mL) subcut Q1-4H PRN 12/10/24 Unknown Rx subcutaneous pen injector (Imitrex migraine headache # 1 mL STATdose Pen) walker (Ultra-Light Rollator misc) #1 ea 01/07/25 Unkn own Rx atorvastatin 40 mg tablet 40 mg PO QHS #90 tabs 06/30/25 Rx clopidogrel 75 mg tablet 75 mg PO DAILY #90 tabs 03/2506/30/25 Rx gabapentin 100 mg capsule 100 mg PO Q12H neuropathy #1 80 caps 04/03/25 06/30/25 Rx omeprazole 40 mg capsule,delayed 40 mg PO DAILY stomac h #90 caps 04/03/25 06/30/25 Rx release potassium chloride 20 mEq 20 meq PO QDAY #90 tabs 03/2506/30/25 Rx tablet,extended release(part/cryst) (Klor-Con M) ropinirole 0.5 mg tablet 0.5 mg PO QHS restless legs #90 04/03/25 06/30/25 Rx tabs sertraline 100 mg tablet 200 mg (2 x 100 mg) PO DAILY mood 04/03/25 06/30/25 Rx #180 tabs trazodone 50 mg tablet 25 mg (1/2 x 50 mg) PO DAILY PRN 05/20/25 Unknown Rx insomnia #30 tabs Gemtesa 75 mg tablet (vibegron) 75 mg PO QDAY #90 tabs 05/24/25 06/30/25 Rx ciprofloxacin HCl 250 mg tablet 250 mg PO BID 3 days # 6 tabs 07/01/25 07/01/25 Rx Allergy/AdvReac Type Severity Reaction Status Date / Time adhesive tape Allergy Severe Area Sore Verified 07/01/25 13:55 cefpodoxime (From Vantin) Allergy Unknown Unknown Verified 07/01/25 13:55 codeine Allergy Unknown Unknown Verified 07/01/25 13:55 metronidazole (From Flagyl) Allergy Unknown Unknown Verified 07/01/25 13:55 sulfamethoxazole (From Allergy Unknown Unknown Verified 07/01/25 13:55 Bactrim) trimethoprim (From Bactrim) Allergy Unknown Unknown Verified 07/01/25 13:55 Sulfa (Sulfonamide Allergy Unknown Verified 07/01/25 13:55 Antibiotics) Family History Sister Anesthesia complication Breast cancer Hypertension Cancer Thyroid, rectal, kidney Thyroid disorder Diabetes Mother Arthritis Pancreatic cancer Depression Diabetes Father Colon cancer Hypertension CVA (cerebral vascular accident) Sister Cancer rectal/kidney/medullary Thyroid cancer Surgical History History of appendectomy History of back surgery History of History of cholecystectomy History of gastric surgery History of hernia repair History of hysterectomy History of left heart catheterization (10/14/20) History of left knee replacement History of right knee joint replacement 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 History of total right knee replacement Hx of breast reduction, elective Social History household members: none housing: apartment current occupational status: retired Smoking Status: Former smoker alcohol intake: never substance use type: does not use what type of physical activity do you participate in: none ROS ROS Narrative General: Denies fever/chills HENT: Does have history of migraines, sometimes level little bit of a sore throat EYES: Denies changes in vision Resp: Denies cough, shortness of breath on exertion Cardiac: Denies chest pain GI: Denies abdominal pain, denies changes in bowel, denies nausea/vomiting : Denies changes in urination Extremity: Denies swelling MSK: Somewhat diffuse weakness Neuro: Some chronic problems with feeling in legs due to no neuropathy Heme: Denies any bleeding or bruising Skin: Denies rashes Psychiatric: Feels a little bit confused and off Vital Signs Vital Signs Vital Signs: 07/01/25 13:53 07/01/25 13:59 07/01/25 14:29 Temperature 96.6 F L Temperature Source Temporal Pulse Rate 138 H Respiratory Rate 26 H Respiratory Effort Short of Breath Respiratory Pattern Tachypnea Blood Pressure 194/96 H Blood Pressure Mean 128 Pulse Ox 92 Oxygen Delivery Method Room Air Room Air 07/01/25 15:09 07/01/25 15:09 07/01/25 16:00 Temperature 98.5 F Temperature Source Oral Pulse Rate 125 H 91 90 Respiratory Rate 18 18 21 H Respiratory Effort Respiratory Pattern Blood Pressure 144/87 H 144/87 H 154/77 H Blood Pressure Mean 106 106 102 Pulse Ox 98 98 100 Oxygen Delivery Method Room Air Room Air 07/01/25 16:47 Temperature 98.5 F Temperature Source Pulse Rate 90 Respiratory Rate 21 H Respiratory Effort Respiratory Pattern Blood Pressure 154/77 H Blood Pressure Mean 102 Pulse Ox 100 Oxygen Delivery Method Weight Weight: 106.8 kg Body Mass Index (BMI) 39.2 Physical Exam Narrative General: Alert, ultimately able to answer orientation questions but take second, no apparent distress HEENT: Atraumatic, normocephalic Eyes: Anicteric, normal conjunctiva, extraocular movements grossly intact Neck: Supple Respiratory: C normal respiratory effort, possible slight crackles at left lung base, no overt wheezes or rhonchi Cardiovascular: Intermittent low-grade tachycardia at random GI: Soft, nontender, nondistended Extremities: No edema Musculoskeletal: Moving all extremities Neuro: No overt focal neurological deficits Skin: No rashes appreciated Psych: Cooperative Results Lab / Micro Data 07/01/25 14:05 07/01/25 14:05 Labs: Laboratory Results - last 24 hr 07/01/25 14:05: WBC 9.6, RBC 5.23, Hgb 13.5, Hct 43.8, MCV 83.7, MCH 25.8 L, M CHC 30.8 L, RDW Std Deviation 49.9 H, RDW Coeff of Karon 16.3 H, Plt Count 309, MPV 9.9, Immature Gran % (Auto) 0.600, Neut % (Auto) 69.3, Lymph % (Auto) 18.2 L , Fleming % (Auto) 9.4, Eos % (Auto) 2.1, Baso % (Auto) 0.4, Absolute Neuts (auto) 6.7, Absolute Lymphs (auto) 1.75, Nucleated RBC % 0, PT 13.7, INR 1.0, APTT 30.7, D-Dimer Quant (PE/DVT) 0.69 H*, Sodium 140, Potassium 3.9, Chloride 102, Carbon Dioxide 25.1, Anion Gap 13, BUN 19, Creatinine 0.75, Estim Creat Clear Calc 68.11, Est GFR (MDRD) Non-Af 81, BUN/Creatinine Ratio 25.6 H, Glucose 147 H , Calcium 9.7, Total Bilirubin 0.42, AST 32, ALT 31, Alkaline Phosphatase 93, Troponin T High Sens 12, NT pro BNP II 153, Total Protein 7.5, Albumin 4.3, Globulin 3.1, Albumin/Globulin Ratio 1.4 07/01/25 14:33: Lactic Acid 2.4 H* 07/01/25 15:05: Urine Color Yellow, Urine Clarity Clear, Urine pH 5.0, Ur Specific [place] 1.025, Urine Protein 30 H, Urine Glucose (UA) Normal, Urine Ketones Negative, Urine Occult Blood Negative, Urine Nitrite Negative, Urine Bilirubin Negative, Urine Urobilinogen Normal, Ur Leukocyte Esterase Negative, Urine RBC 0-5 SEEN, Urine WBC 0-5 SEEN, Ur Squamous Epith Cells 25-50 SEEN, Urine Bacteria 2+, Hyaline Casts 0-5 SEEN, Urine Mucus 4+ 07/01/25 16:04: Troponin T Hi Sens 2 Hr 11 Rhythm Strip Rhythm Strip: narrow complex tachycardia Rate: 140 Ectopy: None Imaging Radiology Impression Chest X-Ray 07/01/25 14:40 IMPRESSION: Mild pulmonary vascular congestion. No focal consolidation. Reading Location: [facility] Assessment & Plan Assessment/Plan (1) Encephalopathy: PLAN: Plan # Metabolic versus toxic encephalopathy -Patient with outpatient eval suggestive of UTI, worsened on Macrobid so was just switched to Cipro -Has slightly improved with the switch but not back to baseline, lives home alone there is concern for safety of discharge home without further improvement -UA here does not appear to be a good catch but negative for nitrites and leuk esterase -Will treat patient empirically for presumed UTI and monitor for continued improvement in mental status -Is unclear if the UTI caused the altered mental status or if the Macrobid did however as treatment progresses and after antibiotics which mental status is improving # Tachycardia -Was up to the 140s but by the time she was placed on the monitor she was a low- grade sinus tachycardia which improved to 85 with IV fluids -ED physician was concerned that there could be an underlying dysrhythmia especially given her shortness of breath and elevated lactic acid despite workup otherwise benign -On telemetry he does have intermittent heart rates up to 120s to 30s but does not sustain for significant periods of time and does not appear to be associated with any significant movement -Will monitor on telemetry -TSH ordered - Will order echocardiogram - Do not see any evidence of A-fib at this time # History of CVA - Continue home statin and clopidogrel #GERD -Continue PPI #Depression/anxiety -Continue home medications # Restless leg syndrome -continue patient's home medication regimen #hx of OAB - Continue home Gemtesa or formulary equivalent #DVT ppx: Lovenox subcu Dilia Best MD Charges/Coding Visit Charges Inpatient E&M: 38292 Init Hosp L2
--- NOTE | 2025-07-01 18:18 | ECHOCS_ITS ---
Reason For Study Reason For Study: Tachycardia Procedure This was a 2D Doppler, Color Flow transthoracic echocardiogram. The patient is in sinus rhythm. The study was technically difficult. Contrast injection was performed. Exam performed portable in patient room. Left Ventricle Normal left ventricular size, with LV diastolic volume/BSA 58 mL/m2. Left ventricular ejection fraction by Waddell's biplane: 54%. Normal diastolic function. No regional wall motion abnormalities noted. Right Ventricle Normal right ventricle. Normal systolic function. RVSP estimated at 30 mmHg. Atria The left and right atria are normal. IVC collapsible. Estimated RA pressure: 3 mmHg. Mitral Valve Normal mitral valve. Trace mitral regurgitation. No mitral stenosis. Tricuspid Valve Normal tricuspid valve. Mild tricuspid regurgitation. No tricuspid stenosis. Aortic Valve Trileaflet aortic valve. No hemodynamically significant aortic stenosis. No aortic regurgitation. Pulmonic Valve Normal pulmonic valve. No pulmonic regurgitation. No pulmonic stenosis. Great Vessels Normal aortic root. Pericardium/Pleural No pericardial effusion. Epicardial fat. Medication Diluted definity 2ml given slow IV push to enhance endocardial definition. MMode/2D Measurements & Calculations LVIDd: 4.7 cm IVSd: 1.3 cm Ao root diam: 3.6 cm LVIDs: 3.4 cm LVPWd: 1.2 cm RVDd: 3.6 cm FS: 28.0 % LAV(MOD-bp): 50.1 ml LVAd ap4: 35.4 cm2 SV(MOD-sp4): 64.0 ml LAV(MOD-bp) Indexed: 24.0 ml/m2 LVLd ap4: 8.4 cm SI(MOD-sp4): 30.7 ml/m2 LAV(MOD-sp2): 56.7 ml EDV(MOD-sp4): 118.2 ml LAV(MOD-sp4): 44.3 ml EDV(sp4-el): 126.9 ml LVAs ap4: 21.6 cm2 LVLs ap4: 6.8 cm ESV(MOD-sp4): 54.2 ml ESV(sp4-el): 58.2 ml EF(MOD-sp4): 54.2 % EF(sp4-el): 54.1 % SV(sp4-el): 68.7 ml LA A4 area: 17.1 cm2 LA dimension(2D): 2.8 cm RA A4 area: 13.0 cm2 TAPSE: 2.2 cm Time Measurements MV dec time: 0.21 sec Doppler Measurements & Calculations MV E max james: 85.7 cm/sec Lat Peak E' James: 8.4 cm/sec Med Peak E' James: 7.6 cm/sec MV A max james: 89.5 cm/sec E/E' lat: 10.2 E/E' med: 11.3 MV E/A: 0.96 MV dec slope: 417.5 cm/sec2 Ao V2 max: 130.2 cm/sec LV V1 max: 109.9 cm/sec Ao max P.8 mmHg LV V1 max P.8 mmHg Ao V2 mean: 88.2 cm/sec LV V1 mean P.9 mmHg Ao mean P.6 mmHg LV V1 mean: 80.5 cm/sec Ao V2 VTI: 25.5 cm LV V1 VTI: 24.1 cm AV (velocity ratio): 0.94 PA V2 max: 90.8 cm/sec TR max james: 274.2 cm/sec TR max P.1 mmHg ECHO/Echo Complete W/ Contrast Interpretation Summary Normal left ventricular systolic function with EF: 54% by Waddell's biplane Normal left ventricular diastolic function Normal right ventricular systolic function No hemodynamically significant valvular disease Ordering Physician: Dilia Best Performed By: Abhay Pineda RCS
--- OUTSIDE RECORDS SUMMARY | 2025-07-01 18:32 | XMS RPT_ITS | CCD ---
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 Moon Rayo Primary Care Provider Dr. Moon Rayo Attending Provider [phone] Dr. Moon Rayo Referring Provider [phone] Dr. Moon Rayo Primary Care Provider Hans Mcnamara Attending Provider Unavailable Dr. Moon Rayo Attending Provider 1([facility])2470 Dr. Moon Rayo Primary Care Provider Dr. Moon Rayo Attending Provider Dr. Sterling Orosco Attending Provider 1([facility])-[phone] oMon Rayo Primary Care Provider Dr. Moon Rayo Attending Provider Dr. Moon Rayo Referring Provider Dr. Sterling Orosco Attending Provider 1([facility])[address] Moon Rayo Primary Care Provider Dr. Moon Rayo Attending Provider Dr. Kelle Foster Emergency Provider Dr. Felipe Drew Admit Provider Unavailabl e Dr. Felipe Drew Other Provider Unavailabl e Dr. Dilia Best Attending Provider Dr. Dilia Best Other Provider Dr. Sterling Orosco Attending Provider [phone]([facility])[phone] Luis Miguel Freeman Attending Provider Dr. Luis Miguel Freeman Other Provider Dr. Moon Rayo Primary Care Provider Dr. Moon Rayo Attending Provider Dr. Kelle Foster Emergency Provider Dr. Felipe Drew Admit Provider Unavailabl e Dr. Felipe Drew Other Provider Unavailabl e Dr. Dilia Best Attending Provider Dr. Dilia Best Other Provider Dr. Sterling Orosco Attending Provider Dr. Felipe Drew Referring Provider Unavail able Dr. Luis Miguel Freeman Attending Provider Dr. Luis Miguel Freeman Other Provider Dr. Joshua Santiago Emergency Provider Dr. Mona Chery Admit Provider Dr. Mona Chery Attending Provider Dr. Mona Chery Other Provider MD Nav Harding Other Provider Unavailable Dr. Sonal Vivar Other Provider MD Parul Lagos Other Provider Unavailable Dr. Beena Wagner Other Provider Dr. Leenan Killian Other Provider Dr. Mandeep Hannon Other Provider Dr. Pamella Carl Other Provider Dr. Moustapha Tran Other Provider Dr. Adrienne Miranda Other Provider MD Shruti Spencer Other Provider Dr. Latonya Renee Other Provider Dr. Love Handy Other Provider Dr. Addie Guardado Other Provider Dr. Trisha Burden Other Provider Dr. Ha Baxter Other Provider Dr. Sukhdev Ashraf Other Provider Dr. Kevin Gonzalez Other Provider Dr. Collette Chery Other Provider Unavailable MD Will Locke Other Provider Unavailable Dr. Thais Noriega Attending Provider Dr. Hima Zimmer Attending Provider Dr. Hima Zimmer Other Provider Dr. Moon aRyo Primary Care Provider Dr. Moon Rayo Attending Provider Dr. Kelle Foster Emergency Provider Dr. Felipe Drew Admit Provider Unavailabl e Dr. Felipe Drew Other Provider Unavailabl e Dr. Dilia Best Attending Provider Dr. Dilia Best Other Provider Dr. Sterling Orosco Attending Provider Dr. Felipe Drew Referring Provider Unavail able Dr. Luis Miguel Freeman Attending Provider Dr. Luis Miguel Freeman Other Provider Dr. Joshua Santiago Emergency Provider Dr. Mona Chery Admit Provider Dr. Mona Chery Attending Provider Dr. Mona Chery Other Provider MD Nav Harding Other Provider Unavailable Dr. Sonal Vivar Other Provider MD Parul Lagos Other Provider Unavailable Dr. Beena Wagner Other Provider Dr. Leeann Killian Other Provider Dr. Mandeep Hannon Other Provider Dr. Pamella Carl Other Provider Dr. Moustapha Tran Other Provider Dr. Adrienne Miranda Other Provider MD Shruti Spencer Other Provider Dr. Latonya Renee Other Provider Dr. Love Handy Other Provider Dr. Addie Guardado Other Provider Dr. Trisha Burden Other Provider Dr. Ha Baxter Other Provider Dr. Sukhdev Ashraf Other Provider Dr. Kevin Gonzalez Other Provider Dr. Collette Chery Other Provider Unavailable MD Will Locke Other Provider Unavailable Dr. Thais Noriega Attending Provider Dr. Hima Zimmer Attending Provider Dr. Hima Zimmer Other Provider MOON RAYO MD Attending Unavailable Dr. Moon Rayo MD Primary Care Provider Dr. Moon Rayo MD Attending Provider Dr. Moon Rayo MD Referring Provider Dr. Moon Rayo MD Primary Care Provider Dr. Jojo Sanchez MD Attending Provider Dr. Moon Rayo MD Primary Care Physician Dr. Jojo Sanchez MD Attending Physician Dr. Moon Rayo MD Attending Physician [phone] Jonathan Eng Attending Unavailable Girma, Moon Primary Care Unavailable GirmaMoon Attending Unavailable Girma, Moon Primary Care Unavailable GirmaMoon Attending Unavailable Girma, Moon Primary Care Unavailable GirmaMoon Attending Unavailable Girma, Moon Referring Unavailable Girma, Moon Primary Care Unavailable Alvin Steele Unavailable Moon Rayo Attending Unavailable Girma, Moon Referring Unavailable Girma, Moon Primary Care Unavailable GirmaMoon Attending Unavailable Girma, Moon Referring Unavailable Girma, Moon Primary Care Unavailable Girma, Moon Primary Care Unavailable Jose Antonio Marte Attending Unavailable Girma, Moon Primary Care Unavailable Abhay Barrios Attending UnavailMoon Jackson Attending Unavailable Girma, Moon Primary Care Unavailable Moon Rayo Attending Unavailable Girma, Moon Primary Care Unavailable Alvin Steele Attending Unavailable Girma, Moon Referring Unavailable Girma, Moon Primary Care Unavailable GirmaMoon Attending Unavailable Girma, Moon Primary Care Unavailable Allergies Allergy Classification Reported Allergen(s) Allergy Type Date of Onset Reaction(s) Facility (17 sources) Adhesive Tape; Translations: [adhesive tape] Allergy to substance 2 Area Sore [facility] (16 sources) cefpodoxime Drug Allergy 2 [facility] (16 sources) Codeine Drug Allergy 2 [facility] Comment on above: HALLUCINATIONS (16 sources) metroNIDAZOLE Drug Allergy 2 Unknown [facility] (16 sources) Sulfamethoxazole Drug Allergy 2 [facility] (17 sources) Sulfonamides (Antibiotic); Translations: [Sulfa (Sulfonamide Antibiotics)] Allergy to substance 2 Unknown [facility] (16 sources) Trimethoprim Drug Allergy 2 Unknown [facility] (1 source) cefpodoxime Drug Allergy 5 [facility] (1 source) Codeine Drug Allergy 5 [facility] (1 source) metroNIDAZOLE Drug Allergy 5 [facility] (1 source) Sulfamethoxazole Drug Allergy 5 [facility] (1 source) Trimethoprim Drug Allergy 5 [facility] Medications Current Medications Medication Drug Class(es) Dates Sig (Normalized) Sig (Original) aspirin 81 mg chewable tablet (20 sources) Platelet Aggregation Inhibitor, Nonsteroidal Anti-inflammatory Drug Start: 09-28-2023 take 1 tablet by mouth at breakfast Start: 09-28-2023 Start: 12-28-2018 End: 07-28-2023 take 1 tablet by mouth once daily Aspirin 81 mg tablet,delayed release (DR/EC) Discontinued 81 mg PO DAILY 90 February 07, 2019 2:27pm July 28, 2023 3:18pm [facility] atorvastatin 40 mg oral tablet (20 sources) HMG-CoA Reductase Inhibitor Start: 09-28-2023 End: 04-03-2025 take 1 tablet by mouth at bedtime Start: 09-28-2023 End: 10-21-2023 biotin 2.5 mg oral capsule (20 sources) Start: 09-24-2020 Start: 09-10-2019 End: 08-08-2020 take 1 capsule by mouth once daily Biotin 1 mg capsule Discontinued 1 mg PO DAILY September 10, 2019 1:00am August 08, 2020 11:56am chondroitin sulfates 200 mg / glucosamine hydrochloride 250 mg oral tablet (1 source) Start: 08-05-2021 take 2 tablets by mouth once daily Glucosamine-Chondroitin (Osteo Bi-Flex) 250-200 mg tablet Active 2 TABLET PO DAILY August 05, 2021 3:39pm clopidogrel 75 mg oral tablet (20 sources) [id number] Platelet Inhibitor Start: 09-28-2023 End: 04-03-2025 take 1 tablet by mouth once daily furosemide 20 mg oral tablet (11 sources) Loop Diuretic Start: 01-03-2025 End: 02-18-2025 take 1 tablet by mouth every other day Start: 12-22-2023 End: 07-14-2024 take 10 mg by mouth every other day as needed Furosemide 20 mg tablet Discontinued 10 mg PO every other day as needed for edema 30 December 22, 2023 12:00am July 14, 2024 5:34pm Use only as needed for leg swelling. gabapentin 100 mg oral capsule (20 sources) Anti-epileptic Agent Start: 08-30-2023 End: 04-03-2025 take 1 capsule by mouth every twelve hours Start: 08-30-2023 End: 09-26-2023 take 1 capsule by mouth once daily in the evening, then take 1 capsule by mouth twice daily Gabapentin 100 mg capsule Discontinued 100 mg PO DAILY 60 August 30, 2023 1:00am September 26, 2023 7:08pm Take one capsule (100 mg) each PM for one week, then increase to one capsule (100 mg) twice daily. Start: 08-13-2023 End: 08-22-2023 take 1 capsule by mouth twice daily Gabapentin 100 mg capsule Discontinued 100 mg PO TWICE A DAY August 13, 2023 1:00am August 22, 2023 2:59pm pain Start: 08-13-2023 Gabapentin Act grecia MG August 13, 2023 12:00am Start: 04-13-2023 End: 07-28-2023 take 1 capsule by mouth twice daily Gabapentin 100 mg capsule Discontinued 100 mg PO TWICE A DAY April 13, 2023 12:00am July 28, 2023 3:18pm Start: 08-11-2018 End: 12-08-2018 take 1 capsule by mouth three times daily Gabapentin 300 mg capsule Discontinued 300 mg PO THREE TIMES A DAY 90 2 August 11, 2018 6:00pm December 08, 2018 9:09am Multivitamin With Minerals (8 sources) Start: 09-24-2020 take 1 tablet by mouth once daily Multivitamin With Minerals Active 1 TABLET PO DAILY September 24, 2020 3:44pm Start: 09-24-2020 take 1 tablet by mady th once daily Multivitamin With Minerals Active 1 TABLET PO DAILY September 24, 2020 1:00am Start: 09-24-2020 take 1 tablet by mady th once daily Multivitamin With Minerals Active 1 TABLET PO DAILY September 24, 2020 12:00am Multivitamin With Minerals 1 EACH tablet (4 sources) Start: 09-24-2020 take 1 tablet by mady th once daily Start: 09-24-2020 take 1 tablet by mady th once daily Multivitamin With Minerals 1 EACH tablet Active 1 {tbl} PO DAILY September 24, 2020 1:00am supplement omeprazole 40 mg delayed release oral capsule (20 sources) Proton Pump Inhibitor Start: 02-21-2023 End: 04-03-2025 take 1 capsule by mouth once daily Start: 08-24-2018 End: 02-15-2022 take 1 capsule by mouth once daily Omeprazole 40 mg capsule,delayed release(DR/EC) Discontinued 40 mg PO DAILY 90 March 11, 2021 5:11pm February 15, 2022 9:27am GERD ondansetron 4 mg disintegrating oral tablet (20 sources) Serotonin-3 Receptor Antagonist Start: 07-14-2024 take 1 tablet by mouth every six hours as needed for nausea and vomiting Start: 12-14-2021 take 4 mg by mouth e very eight hours as needed Ondansetron Active 4 MG PO EVERY 8 HOURS NEEDED December 14, 2021 6:28pm Start: 08-18-2018 End: 08-23-2018 take 1 tablet by mouth three times daily as needed for nausea and vomiting Ondansetron Hcl (Zofran) 4 mg tablet Discontinued 4 mg PO THREE TIMES A DAY as needed for nausea and vomiting 30 5 0 August 18, 2018 1:00am August 22, 2018 1:00am August 23, 2018 1:07am microencapsulated potassium chloride 20 meq extended release oral tablet (20 sources) Start: 01-19-2024 End: 04-03-2025 Start: 08-08-2020 End: 09-28-2023 take 1 tablet by mouth once daily Potassium Chloride 20 mEq tablet extended release Discontinued 20 meq PO DAILY 90 3 February 15, 2023 9:13am September 28, 2023 3:49pm supplement Start: 01-10-2019 End: 03-06-2019 take 1 tablet by mouth once daily at mealtime Potassium Chloride 20 MEQ tablet Discontinued 20 meq PO DAILY WITH MEALS 30 0 January 10, 2019 12:00am March 06, 2019 8:21am rOPINIRole 0.5 mg oral tablet (20 sources) Nonergot Dopamine Agonist Start: 11-02-2021 End: 04-03-2025 take 1 tablet by mouth at bedtime Start: 11-02-2021 End: 10-21-2023 sertraline 100 mg oral tablet (20 sources) Serotonin Reuptake Inhibitor Start: 11-20-2019 End: 04-03-2025 take 2 tablets by mouth once daily Start: 02-07-2019 End: 11-20-2019 take 1 tablet by mouth once daily Sertraline 100 mg tablet Discontinued 0 .ROUTE .COMPLEX 120 2 April 12, 2019 5:18pm November 20, 2019 3:26pm TAKE 1 & 1/2 (ONE & ONE-HALF) TABLETS BY MOUTH ONCE DAILY Start: 02-07-2019 End: 04-12-2019 take 1 tablet by mouth at bedtime Sertraline 50 mg tablet Discontinued 50 mg PO .AT BEDTIME 90 3 April 02, 2019 1:27pm April 12, 2019 5:19pm Start: 02-07-2019 End: 04-12-2019 Start: 08-11-2018 End: 02-07-2019 Sertraline 100 MG tablet Discontinued 150 mg PO DAILY December 28, 2018 9:50am February 07, 2019 1:57pm DEPRESSION Start: 08-11-2018 End: 10-21-2023 Start: 08-11-2018 End: 02-07-2019 take 150 mg by mouth once daily Sertraline Discontinue d 150 MG PO DAILY December 28, 2018 8:50am February 07, 2019 12:57pm traZODone hydrochloride 50 m g oral tablet (20 sources) Serotonin Reuptake Inhibitor Start: 02-21-2024 End: 04-03-2025 Start: 08-11-2018 End: 04-29-2021 Trazodone 50 mg tablet Disco ntinued 50 mg PO AT BEDTIME 60 4 October 28, 2020 3:35pm April 01, 2021 11:59am SLEEP 1-2 tablets PRN for insomnia Vibegron (4 sources) Start: 05-21-2024 take 1 tablet by mouth once da adam Start: 05-21-2024 take 1 tablet by mady th once daily Vibegron (Gemtesa) 75 mg tablet Active 75 mg PO daily May 21, 2024 12:00am Walker (Ultra-Light Rollator ) misc (20 sources) Start: 01-07-2025 Walker (Ultra- Light Rollator) misc Active 0 .Route 1 0 January 07, 2025 2:22pm Recurrent falls Repeated falls R29.6 As directed Start: 08-23-2022 End: 08-23-2022 Walker (Ultra-Light Rollator ) misc Discontinued 0 .Route August 23, 2022 1:00am August 23, 2022 9:53am Recurrent falls Repeated falls As directed Start: 08-23-2022 End: 01-07-2025 Walker (Ultra-Light Rollator ) misc Discontinued 0 .Route 1 0 August 23, 2022 1:00am January 07, 2025 2:22pm Recurrent falls Repeated falls R29.6 As directed Start: 08-23-2022 Walker (Ultra- Light Rollator) misc Active 0 .Route 1 August 23, 2022 12:00am As directed Start: 08-23-2022 End: 08-23-2022 Walker (Ultra-Light Rollator ) misc Discontinued 0 .Route August 23, 2022 12:00am August 23, 2022 8:53am As directed Start: 08-23-2022 Walker (Ultra- Light Rollator) misc Active 0 .Route 1 August 23, 2022 1:00am As directed Start: 08-23-2022 End: 08-23-2022 Walker (Ultra-Light Rollator ) misc Discontinued 0 .Route August 23, 2022 1:00am August 23, 2022 9:53am As directed (20 sources) Start: 09-28-2023 Start: 08-23-2022 Start: 08-23-2022 End: 08-23-2022 Start: 07-15-2022 End: 08-23-2022 Start: 07-15-2022 Start: 07-15-2022 End: 07-15-2022 Start: 09-24-2020 Start: 09-08-2018 End: 12-08-2018 Start: 08-11-2018 End: 08-11-2018 Completed/Discontinued Medications Medication Drug Class(es) Dates Sig (Normalized) Sig (Original) acetaminophen 500 mg oral tablet (20 sources) Start: 01-10-2019 End: 05-21-2024 take 2 tablets by mouth every six hours as needed for pain Acetaminophen 500 mg tablet Discontinued 1000 mg PO EVERY 6 HOURS NEEDED as needed for Mild Pain (1-3/10) 90 0 February 07, 2019 2:27pm May 21, 2024 1:04pm Start: 01-10-2019 End: 02-07-2019 Start: 12-08-2018 End: 01-10-2019 take 1 capsule by mouth every six hours as needed for pain Acetaminophen (Tylenol) 325 mg capsule Discontinued 325 mg PO EVERY 6 HOURS as needed for Pain December 08, 2018 12:00am January 10, 2019 7:21pm acetaminophen 325 mg / HYDROcodone bitartrate 5 mg oral tablet (20 sources) Opioid Agonist Start: 05-21-2024 End: 07-14-2024 Hydrocodone-Acetaminophen 5- 325 mg tablet Discontinued 1 {tbl} PO TWICE A DAY as needed 0 May 21, 2024 12:00am July 14, 2024 5:34pm Start: 04-13-2023 End: 09-26-2023 Hydrocodone-Acetaminophen 5- 325 mg tablet Discontinued 0.25 {tbl} PO AT BEDTIME 0 April 13, 2023 12:00am September 26, 2023 7:08pm Start: 04-13-2023 End: 09-26-2023 Start: 12-01-2020 End: 08-05-2021 Hydrocodone-Acetaminophen 5- 325 mg tablet Discontinued 1 {tbl} PO EVERY 6 HOURS NEEDED as needed for Pain 10 3 0 December 01, 2020 August 05, 2021 3:38pm Injury due to fall Unspecified fall, initial encounter Start: 12-01-2020 End: 08-05-2021 Start: 12-01-2020 End: 08-05-2021 take 1 tablet by mouth every six hours as needed Hydrocodone-Acetaminophen Discontinued 1 TABLET PO EVERY 6 HOURS NEEDED 10 3 December 01, 2020 August 05, 2021 2:38pm Start: 09-08-2018 End: 01-04-2019 Hydrocodone-Acetaminophen (N orco) 5-325 mg tablet Discontinued 1 {tbl} PO TWICE A DAY 0 September 08, 2018 1:00am January 04, 2019 8:13am PAIN Start: 09-08-2018 End: 01-04-2019 amLODIPine 2.5 mg oral tablet (20 sources) Dihydropyridine Calcium Channel Lindsay Start: 08-22-2023 End: 09-28-2023 take 1 tablet by mouth once daily Amlodipine 2.5 mg tablet Discontinued 2.5 mg PO DAILY 30 August 22, 2023 3:23pm September 28, 2023 3:49pm blood pressure Start: 03-03-2022 End: 08-22-2023 take 1 tablet by mouth once daily Amlodipine 5 mg tablet Discontinued 5 mg PO DAILY 90 3 February 04, 2023 7:31pm August 22, 2023 3:24pm blood pressure Start: 07-08-2021 End: 03-03-2022 take 1 tablet by mouth once daily Amlodipine 2.5 mg tablet Discontinued 2.5 mg PO DAILY 90 December 28, 2021 4:06pm March 03, 2022 5:17pm Start: 06-23-2021 End: 12-15-2021 take 1 tablet by mouth once daily Amlodipine 5 mg tablet Discontinued 5 mg PO DAILY 30 2 June 23, 2021 1:00am July 08, 2021 11:12am amoxicillin 875 mg / clavulanate 125 mg oral tablet (16 sources) Penicillin-class Antibacterial Start: 09-30-2018 End: 12-08-2018 take 1 tablet by mouth every twelve hours Amoxicillin-Pot Clavulanate 875 MG tablet Discontinued 875 mg PO Q12H 20 0 September 30, 2018 1:00am December 08, 2018 9:09am apixaban 2.5 mg oral tablet (20 sources) Factor Xa Inhibitor Start: 01-04-2019 End: 01-10-2019 take 1 tablet by mouth twice daily Apixaban (Eliquis) 2.5 MG tablet Discontinued 2.5 mg PO TWICE A DAY January 04, 2019 4:31pm January 10, 2019 7:21pm blood thinner Ascorbic Acid (12 sources) Vitamin C Start: 08-11-2018 End: 08-11-2018 ascorbic acid (vitamin C) Discontinued PO August 11, 2018 4:22pm August 11, 2018 4:58pm Start: 08-11-2018 End: 08-11-2018 ascorbic acid (vitamin C) Di scontinued PO August 11, 2018 1:00am August 11, 2018 4:58pm Start: 08-11-2018 End: 08-11-2018 ascorbic acid (vitamin C) Di scontinued PO August 11, 2018 12:00am August 11, 2018 3:58pm azithromycin 250 mg oral tablet (4 sources) Macrolide Antimicrobial Start: 06-08-2024 End: 07-14-2024 Azithromycin 250 mg tablet Discontinued 0 PO .COMPLEX 6 0 June 08, 2024 1:00am July 14, 2024 5:34pm For 250 mg dose pack: take 500 mg today (day 1), then 250 mg for 4 days (days 2-5) PO benzonatate 100 mg oral capsule (20 sources) Non-narcotic Antitussive Start: 11-20-2019 End: 01-31-2020 take 1 capsule by mouth three times daily as needed for cough Benzonatate (Tessalon Perles) 100 mg capsule Discontinued 100 mg PO THREE TIMES A DAY as needed for cough 30 0 November 20, 2019 4:16pm January 31, 2020 2:55pm cephalexin 500 mg oral capsule (20 sources) Cephalosporin Antibacterial Start: 08-26-2024 End: 02-18-2025 take 1 capsule by mouth every twelve hours Cephalexin 500 mg capsule Discontinued 500 mg PO EVERY 12 HOURS 14 7 0 August 26, 2024 1:00am February 18, 2025 1:32pm Start: 01-10-2019 End: 03-06-2019 take 1 capsule by mouth every twelve hours Cephalexin 500 MG capsule Discontinued 500 mg PO EVERY 12 HOURS 14 0 January 10, 2019 12:00am March 06, 2019 8:20am cholecalciferol 0.05 mg oral capsule (20 sources) Vitamin D Start: 08-11-2018 End: 09-10-2019 take 1 capsule by mouth once daily Cholecalciferol (Vitamin D3) 2,000 unit capsule Discontinued 2000 U PO DAILY 90 3 February 07, 2019 2:28pm September 10, 2019 12:52pm SUPPLEMENT Start: 08-11-2018 End: 09-03-2024 take 1 capsule by mouth once daily Cholecalciferol (Vitamin D3) 50 mcg (2,000 unit) capsule Discontinued 4000 U PO DAILY September 10, 2019 12:49pm September 03, 2024 10:50am SUPPLEMENT ciprofloxacin 500 mg oral tablet (9 sources) Quinolone Antimicrobial Start: 08-16-2023 End: 08-22-2023 take 1 tablet by mouth twice daily Ciprofloxacin Hcl (Cipro) 500 mg tablet Discontinued 500 mg PO TWICE A DAY 8 4 0 August 16, 2023 1:00am August 22, 2023 2:40pm colchicine 0.6 mg oral tablet (6 sources) Start: 10-24-2023 End: 11-03-2023 take 1 tablet by mouth once daily, then take 1 tablet by mouth every six hours Colchicine 0.6 mg tablet Discontinued 0.6 mg PO DAILY 2 0 October 24, 2023 12:00am November 03, 2023 10:02am One tab now and one tab 6 hours later. doxycycline hyclate 100 mg oral tablet (20 sources) Tetracycline-class Drug Start: 02-18-2025 End: 04-18-2025 take 1 tablet by mouth twice daily Doxycycline Hyclate 100 mg tablet Discontinued 100 mg PO TWICE A DAY 20 0 February 18, 2025 12:00am April 18, 2025 9:35am Take on empty stomach with a couple crackers and small glass of water. Do not take with dairy or milk. Do not eat or drink for 30 minutes after taking. Start: 01-11-2024 End: 05-21-2024 take 1 tablet by mouth twice daily Doxycycline Hyclate 100 mg tablet Discontinued 100 mg PO TWICE A DAY 14 0 January 11, 2024 12:00am May 21, 2024 1:06pm Take on empty stomach with a couple of crackers and a small amount of water. Do not take with dairy products. Start: 01-10-2019 End: 01-19-2019 take 1 capsule by mouth every twelve hours Doxycycline Monohydrate 100 MG capsule Discontinued 100 mg PO Q12H 14 0 January 10, 2019 12:00am January 19, 2019 3:14pm 24 hr ferrous sulfate 142 mg extended release oral tablet (16 sources) Start: 05-21-2024 End: 12-10-2024 take 1 tablet by mouth once daily Ferrous Sulfate (Slow Fe) 137 mg (45 mg iron) tablet extended release Discontinued 137 mg PO daily 90 1 October 10, 2024 11:42am December 10, 2024 12:51pm Start: 09-28-2023 End: 05-21-2024 take 1 tablet by mouth at lunch Ferrous Sulfate (Feros ul) 325 mg (65 mg iron) Tablet Discontinued 325 mg PO QODAY@LUNCH 0 0 September 28, 2023 1:00am May 21, 2024 1:07pm hydroCHLOROthiazide 25 mg oral tablet (20 sources) Thiazide Diuretic Start: 08-14-2019 End: 09-28-2023 take 1 tablet by mouth once daily Hydrochlorothiazide 25 mg tablet Discontinued 25 mg PO DAILY 90 July 29, 2023 4:30pm September 28, 2023 3:49pm water pill Start: 07-02-2019 End: 07-13-2019 Hydrochlorothiazide 25 mg ta blet Discontinued 12.5 mg PO DAILY 90 July 03, 2019 12:50am July 13, 2019 4:48pm HTN Start: 07-02-2019 End: 07-13-2019 take 12.5 mg by mouth once daily Hydrochlorothiazide Discontinued 12.5 MG PO DAILY 90 July 02, 2019 11:50pm July 13, 2019 3:48pm Start: 08-11-2018 End: 07-13-2019 take 1 tablet by mouth once daily Hydrochlorothiazide 25 mg tablet Discontinued 25 mg PO DAILY 90 February 07, 2019 2:28pm July 03, 2019 12:51am HTN Iron Bisglycinate Chelate 28 mg iron capsule (4 sources) Start: 05-21-2024 End: 09-03-2024 take 1 capsule by mouth once daily Iron Bisglycinate Chelate 28 mg iron capsule Discontinued 28 mg PO daily May 21, 2024 12:00am September 03, 2024 10:51am losartan potassium 100 mg oral tablet (20 sources) Angiotensin 2 Receptor Lindsay Start: 07-13-2019 End: 03-03-2022 take 1 tablet by mouth once daily Losartan 100 mg tablet Discontinued 100 mg PO DAILY 90 June 04, 2021 12:22pm March 03, 2022 5:17pm blood pressure TAKE 1 TABLET BY MOUTH DAILY Start: 07-02-2019 End: 07-13-2019 take 1 tablet by mouth once daily Losartan 50 mg tablet Discontinued 50 mg PO DAILY 90 July 03, 2019 12:50am July 13, 2019 4:48pm Start: 06-14-2019 End: 07-02-2019 take 1 tablet by mouth once daily Losartan 25 mg tablet Discontinued 25 mg PO DAILY 30 June 14, 2019 1:00am July 03, 2019 12:51am meclizine hydrochloride 25 mg oral tablet (20 sources) Antiemetic Start: 09-26-2020 End: 10-08-2020 Meclizine 25 MG tablet Discontinued 25 mg PO NEEDED as needed for dizziness September 26, 2020 1:00am October 08, 2020 12:02pm Start: 12-19-2019 End: 08-08-2020 take 1 tablet by mouth once daily as needed for dizziness Meclizine 25 mg tablet Discontinued 25 mg PO DAILY as needed for dizziness 23 08December 19, 2019 12:00am August 08, 2020 11:57am methylPREDNISolone 4 mg oral tablet (7 sources) Corticosteroid Start: 10-24-2023 End: 10-30-2023 take 1 tablet by mouth once Methylprednisolone (Medrol (Rd)) 4 mg tablets,dose pack Discontinued 0 PO per package directions October 24, 2023 12:00am October 30, 2023 11:14pm PO PER PKG DIR Start: 10-24-2023 End: 10-30-2023 Start: 10-24-2023 Start: 10-19-2018 End: 10-19-2018 Depo-Medrol (methylprednisol one acetate) 40 mg/mL suspension for injection Discontinued 80 MG INTRAARTIC ONCE 2 October 19, 2018 9:57am October 19, 2018 10:50am 24 hr metoprolol succinate 50 mg extended release oral tablet (20 sources) beta-Adrenergic Lindsay Start: 12-28-2018 End: 09-28-2023 take 1 tablet by mouth twice daily Metoprolol Succinate 50 mg tablet extended release 24 hr Discontinued 50 mg PO TWICE A DAY 90 3 August 31, 2023 1:14pm September 28, 2023 3:49pm HTN Start: 08-11-2018 End: 11-17-2018 take 1 capsule by mouth twice daily Metoprolol Succinate 50 mg capsule,sprinkle,ER 24hr Discontinued 50 mg PO TWICE A DAY August 11, 2018 1:00am November 17, 2018 3:13pm 24 hr mirabegron 25 mg extended release oral tablet (20 sources) beta3-Adrenergic Agonist Start: 08-11-2018 End: 03-09-2021 take 1 tablet by mouth twice daily Mirabegron 25 mg tablet extended release 24 hr Discontinued 25 mg PO TWICE A DAY 180 3 September 26, 2020 11:07am March 09, 2021 9:18am BLADDER naloxegol 12.5 mg oral tablet (16 sources) Opioid Antagonist Start: 09-24-2020 End: 04-29-2021 take 1 tablet by mouth once daily Naloxegol 12.5 MG tablet Discontinued 12.5 mg PO DAILY September 24, 2020 1:00am April 29, 2021 11:09am constipation oxyCODONE hydrochloride 5 mg oral tablet (20 sources) Opioid Agonist Start: 01-04-2019 End: 01-12-2019 take 5-10 mg by mouth every four hours as needed for pain Oxycodone 5 MG tablet Discontinued 5 - 10 mg PO EVERY 4 HOURS NEEDED as needed for Mod-Severe Pain (4-10/10) 60 7 0 January 10, 2019 January 10, 2019 12:00am January 12, 2019 12:08am Other acute postprocedural pain polyethylene glycol 3350 19466 mg powder for oral solution (16 sources) Osmotic Laxative Start: 01-10-2019 End: 09-10-2019 take 17 g by mouth twice daily Polyethylene Glycol 3350 17 GM packet Discontinued 17 g PO TWICE A DAY 60 0 January 10, 2019 12:00am September 10, 2019 12:51pm polysaccharide iron complex 150 mg oral capsule (20 sources) Start: 03-09-2021 End: 11-02-2021 take 1 capsule by mouth once daily Polysaccharide Iron Complex (Poly-Iron) 150 mg iron capsule Discontinued 150 mg PO DAILY March 09, 2021 12:00am November 02, 2021 4:34pm Start: 01-10-2019 End: 03-06-2019 take 1 capsule by mouth once daily at mealtime Polysaccharide Iron Complex 150 mg iron capsule Discontinued 150 mg PO DAILY WITH MEALS 30 0 February 07, 2019 2:29pm March 06, 2019 8:21am rosuvastatin calcium 10 mg oral tablet (20 sources) HMG-CoA Reductase Inhibitor Start: 08-11-2018 End: 09-28-2023 take 1 tablet by mouth at bedtime Rosuvastatin 10 mg tablet Discontinued 10 mg PO AT BEDTIME 90 3 February 15, 2023 9:13am September 28, 2023 3:50pm CHOLESTEROL Senna Leaves (12 sources) Start: 09-08-2018 End: 12-08-2018 senna 187 mg tablet Discontinued MG PO NEEDED September 08, 2018 11:07am December 08, 2018 9:10am Start: 09-08-2018 End: 12-08-2018 Senna 187 mg tablet Disconti nued mg PO NEEDED as needed for Constipation 0 September 08, 2018 1:00am December 08, 2018 9:10am Start: 09-08-2018 End: 12-08-2018 senna 187 mg tablet Disconti nued MG PO NEEDED September 08, 2018 1:00am December 08, 2018 9:10am Start: 09-08-2018 End: 12-08-2018 senna 187 mg tablet Disconti nued MG PO NEEDED September 08, 2018 12:00am December 08, 2018 8:10am side rails for bed (20 sources) Start: 12-10-2024 End: 12-10-2024 side rails for bed Discontin ued 0 .Route .MEDSUPPLY 1 0 December 10, 2024 12:50pm December 10, 2024 1:45pm frequent falls , assist with motlity in bed As directed Start: 07-15-2022 End: 12-10-2024 side rails for bed Discontin ued 0 .Route .MEDSUPPLY 1 0 July 15, 2022 5:21pm December 10, 2024 12:51pm frequent falls , assist with motlity in bed As directed Start: 07-15-2022 side rails for bed Active 0 .Route .MEDSUPPLY 1 July 15, 2022 5:21pm As directed Start: 07-15-2022 side rails for bed Active 0 .Route .MEDSUPPLY 1 July 15, 2022 4:21pm As directed Start: 07-15-2022 End: 07-15-2022 side rails for bed Discontin ued 0 .Route .MEDSUPPLY July 15, 2022 1:00am July 15, 2022 5:23pm frequent falls , assist with motlity in bed Start: 07-15-2022 End: 07-15-2022 side rails for bed Discontin ued 0 .Route .MEDSUPPLY July 15, 2022 1:00am July 15, 2022 5:23pm Start: 07-15-2022 End: 07-15-2022 side rails for bed Discontin ued 0 .Route .MEDSULY July 15, 2022 12:00am July 15, 2022 4:23pm 0.5 ml SUMAtriptan 12 mg/ml auto-injector (20 sources) Serotonin-1b and Serotonin-1d Receptor Agonist Start: 06-14-2022 End: 12-10-2024 Sumatriptan Succinate (Imitrex Statdose Pen) 6 mg/0.5 mL pen injector Discontinued 6 mg SC every 1 to 4 hours as needed for migraine headache 1 February 13, 2024 8:53am December 10, 2024 12:51pm do not exceed 2 doses in a 24 hour period Start: 06-14-2022 End: 06-14-2022 Start: 12-25-2020 End: 11-21-2023 take 1 tablet by mouth every two hours Sumatriptan Succinate 25 mg tablet Discontinued 0 PO .COMPLEX 14 June 14, 2022 4:56pm November 21, 2023 3:46pm take 1 tab at onset of headache; if no relief may repeat 1 tab after at least 2 hrs; max = 4 tabs/24 hr PO Start: 11-28-2020 End: 12-25-2020 Sumatriptan Succinate (Imitr ex Statdose Pen) 6 mg/0.5 mL pen injector Discontinued 6 mg SC ONCE as needed for migraine headache 1 November 28, 2020 4:29pm December 25, 2020 3:39pm Start: 09-08-2018 End: 11-28-2020 Sumatriptan Succinate (Imitr ex Statdose Pen) 6 mg/0.5 mL pen injector Discontinued 6 mg SC every 1 to 4 hours as needed for migraine headache 1 May 23, 2019 1:20pm November 28, 2020 4:31pm Start: 09-08-2018 End: 12-25-2020 traMADol hydrochloride 50 mg oral tablet (20 sources) Opioid Agonist Start: 03-06-2019 End: 03-15-2019 take 1 tablet by mouth twice daily Tramadol 50 mg tablet Discontinued 50 mg PO TWICE A DAY March 06, 2019 12:00am March 15, 2019 3:26pm Start: 01-16-2019 End: 01-22-2019 take 1 tablet by mouth every eight hours as needed for pain Tramadol 50 mg tablet Discontinued 50 mg PO Q8H as needed for pain 28 5 0 January 16, 2019 12:00am January 20, 2019 12:00am January 22, 2019 12:07am take as prescribed Start: 01-10-2019 End: 01-19-2019 take 1 tablet by mouth every six hours as needed for pain Tramadol 50 MG tablet Discontinued 50 mg PO EVERY 6 HOURS NEEDED as needed for Moderate Pain (4-5/10) 28 7 0 January 10, 2019 12:00am January 16, 2019 12:00am January 19, 2019 3:14pm Start: 01-10-2019 End: 01-22-2019 Start: 08-11-2018 End: 09-08-2018 take 1 tablet by mouth three times daily Tramadol 50 mg tablet Discontinued 50 mg PO THREE TIMES A DAY 21 0 August 18, 2018 3:30pm September 08, 2018 11:06am Start: 08-11-2018 End: 09-08-2018 walker (20 sources) Start: 07-15-2022 End: 08-23-2022 walker Discontinued 0 .Route .MEDSUPPLY 1 0 July 15, 2022 5:22pm August 23, 2022 9:47am frequent falls As directed Start: 07-15-2022 End: 08-23-2022 walker Discontinued 0 .Route .MEDSUPPLY 1 July 15, 2022 4:22pm August 23, 2022 8:47am As directed Start: 07-15-2022 End: 08-23-2022 walker Discontinued 0 .Route .MEDSUPPLY 1 July 15, 2022 5:22pm August 23, 2022 9:47am As directed Start: 07-15-2022 walker Active 0 .Route .MEDSUPPLY 1 July 15, 2022 4:22pm As directed Start: 07-15-2022 End: 07-15-2022 walker Discontinued 0 .Route .MEDSUPPLY July 15, 2022 1:00am July 15, 2022 5:23pm frequent falls Start: 07-15-2022 End: 07-15-2022 walker Discontinued 0 .Route .MEDSUPPLY July 15, 2022 1:00am July 15, 2022 5:23pm Start: 07-15-2022 End: 07-15-2022 walker Discontinued 0 .Route .MEDSUPPLY July 15, 2022 12:00am July 15, 2022 4:23pm Problems Active Problems Problem Classification Problem Date Documented Da te Episodic/Chronic Abdominal pain (16 sources) Abdominal pain; Translations: [Unspecified abdominal pain] 08-06-2021 Episodic Acute cerebrovascular disease (20 sources) Acquired dysarthria; Translations: [Cerebral infarction, unspecified] 09-26-2023 Chronic Asthma (16 sources) Asthma; Translations: [Unspecified asthma, uncomplicated] 12-08-2020 Chronic Chronic obstructive pulmonary disease and bronchiectasis (16 sources) Chronic bronchitis; Translations: [Unspecified chronic bronchitis] 10-06-2020 Chronic Conditions associated with dizziness or vertigo (20 sources) Dizziness; Translations: [Dizziness and giddiness] Episodic Deficiency and other anemia (16 sources) Iron deficiency anemia; Translations: [Iron deficiency anemia, unspecified] 10-06-2020 Episodic Deficiency and other anemia (11 sources) Anemia; Translations: [Anemia, unspecified] 08-02-2023 Episodic Deficiency and other anemia (8 sources) Microcytic anemia; Translations: [Iron deficiency anemia, unspecified] 09-26-2023 Episodic Deficiency and other anemia (2 sources) Iron deficiency anemia, unspecified; Translations: [Iron deficiency anemia, unspecified] 09-26-2023 Episodic Disorders of lipid metabolism (20 sources) Hyperlipidemia; Translations: [Hyperlipidemia, unspecified] 10-06-2020 Chronic E Codes: Fall (20 sources) Falling injury; Translations: [Unspecified fall, initial encounter] Episodic Esophageal disorders (20 sources) Gastroesophageal reflux disease; Translations: [Gastro-esophageal reflux disease without esophagitis] Chronic Essential hypertension (20 sources) Essential hypertension; Translations: [Essential (primary) hypertension] Chronic Fluid and electrolyte disorders (20 sources) Hypokalemia; Translations: [Hypokalemia] 12-22-2021 Episodic Genitourinary symptoms and ill-defined conditions (4 sources) Urinary incontinence; Translations: [Unspecified urinary incontinence] 04-05-2024 Chronic Gout and other crystal arthropathies (20 sources) Gout; Translations: [Gout, unspecified] Onset: 07-28-2023 Chronic Headache; including migraine (2 sources) Migraine; Translations: [Migraine, unspecified, not intractable, without status migrainosus] Chronic Intestinal infection (4 sources) Viral gastroenteritis; Translations: [Viral intestinal infection, unspecified] 07-22-2024 Episodic Intracranial injury (15 sources) Concussion with no loss of consciousness; Translations: [Concussion without loss of consciousness, initial encounter] 07-21-2022 Episodic Malaise and fatigue (10 sources) Asthenia; Translations: [Weakness] 08-14-2023 Episodic Mood disorders (20 sources) Depressive disorder; Translations: [Depression] 10-06-2020 Chronic Mycoses (13 sources) Onychomycosis; Translations: [Tinea unguium] 04-13-2023 Episodic Nonspecific chest pain (16 sources) Chest wall pain; Translations: [Other chest pain] 10-06-2020 Episodic Open wounds of head; neck; and trunk (20 sources) Laceration of left eyebrow; Translations: [Laceration without foreign body of left eyelid and periocular area, initial encounter] 07-21-2022 Episodic Osteoarthritis (20 sources) Osteoarthritis; Translations: [Unspecified osteoarthritis, unspecified site] Onset: Chronic Other connective tissue disease (16 sources) Recurrent falls ; Translations: [Repeated falls] 10-06-2020 Episodic Other connective tissue disease (13 sources) Swelling of left lower limb; Translations: [Other specified soft tissue disorders] 04-13-2023 Episodic Other connective tissue disease (10 sources) Other specified soft tissue disorders; Translations: [Swelling of limb] 04-13-2023 Episodic Other connective tissue disease (10 sources) Pain in left lower limb; Translations: [Pain in left leg] 08-11-2023 Episodic Other connective tissue disease (4 sources) Foot swelling; Translations: [Other specified soft tissue disorders] 01-11-2024 Episodic Other diseases of bladder and urethra (20 sources) Overactive bladder; Translations: [Overactive bladder] 10-06-2020 Chronic Other diseases of bladder and urethra (7 sources) Overactive bladder; Translations: [Hypertonicity of bladder] 07-28-2023 Chronic Other eye disorders (1 source) Conjunctival hemorrhage; Translations: [Conjunctival hemorrhage, left eye] 02-18-2025 Episodic Other eye disorders (4 sources) Subconjunctival hemorrhage; Translations: [Conjunctival hemorrhage, unspecified eye] 02-18-2025 Episodic Other eye disorders (1 source) Conjunctival hemorrhage of left eye; Translations: [Conjunctival hemorrhage, left eye] 02-18-2025 Episodic Other gastrointestinal disorders (16 sources) Irritable bowel syndrome; Translations: [Irritable bowel syndrome without diarrhea] 10-06-2020 Chronic Other gastrointestinal disorders (16 sources) Dark stools; Translations: [Other fecal abnormalities] 10-06-2020 Episodic Other gastrointestinal disorders (16 sources) Abdominal bloating; Translations: [Abdominal distension (gaseous)] 07-08-2021 Episodic Other injuries and conditions due to external causes (16 sources) Injury of ribs; Translations: [Unspecified injury of thorax, initial encounter] 04-02-2019 Episodic Other injuries and conditions due to external causes (16 sources) Injury of head; Translations: [Unspecified injury of head, initial encounter] 02-28-2021 Episodic Other injuries and conditions due to external causes (17 sources) Closed injury of head; Translations: [Unspecified injury of head, initial encounter] 04-27-2023 Episodic Other lower respiratory disease (16 sources) Dyspnea on exertion; Translations: [Dyspnea, unspecified] 10-06-2020 Episodic Other lower respiratory disease (1 source) Dyspnea, unspecified; Translations: [Other respiratory abnormalities] Episodic Other lower respiratory disease (7 sources) Other forms of dyspnea; Translations: [Other respiratory abnormalities] 07-28-2023 Episodic Other nervous system disorders (16 sources) Neuropathy; Translations: [Polyneuropathy, unspecified] 01-04-2019 Chronic Other nervous system disorders (11 sources) Polyneuropathy, unspecified; Translations: [Mononeuritis of unspecified site] Chronic Other nervous system disorders (10 sources) Unable to walk; Translations: [Difficulty in walking, not elsewhere classified] 08-13-2023 Chronic Other nervous system disorders (12 sources) Difficulty in walking, not elsewhere classified; Translations: [Difficulty in walking] Onset: 08-13-2023 Chronic Other nervous system disorders (9 sources) Walking disability; Translations: [Difficulty in walking, not elsewhere classified] 08-14-2023 Chronic Other nervous system disorders (8 sources) Herman-neglect; 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] 09-26-2023 Episodic Other nervous system disorders (4 sources) Neurologic neglect syndrome; 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] 09-26-2023 Episodic Other nervous system disorders (4 sources) Impairment of balance; Translations: [Other abnormalities of gait and mobility] 11-21-2024 Episodic Other non-traumatic joint disorders (6 sources) Polyarthropathy; Translations: [Polyarthritis, unspecified] 10-26-2023 Chronic Other non-traumatic joint disorders (8 sources) Joint pain; Translations: [Pain in unspecified joint] 09-26-2023 Episodic Other non-traumatic joint disorders (4 sources) Pain in unspecified joint; Translations: [Pain in joint, site unspecified] 09-26-2023 Episodic Other non-traumatic joint disorders (6 sources) Swelling of upper limb; Translations: [Effusion, left wrist] 10-24-2023 Episodic Other non-traumatic joint disorders (2 sources) Effusion, left wrist; Translations: [Effusion of joint, forearm] 10-24-2023 Episodic Other non-traumatic joint disorders (4 sources) Hip pain; Translations: [Pain in right hip] 03-05-2024 Episodic Other non-traumatic joint disorders (1 source) Pain in left hip; Translations: [Pain in left hip] Onset: Episodic Other skin disorders (16 sources) Localized swelling of chest wall; Translations: [Localized swelling, mass and lump, trunk] 10-06-2020 Episodic Pneumonia (except that caused by tuberculosis or sexually transmitted disease) (16 sources) Pneumonia; Translations: [Pneumonia, unspecified organism] 10-06-2020 Episodic Residual codes; unclassified (16 sources) Confusional state; Translations: [Disorientation, unspecified] 10-06-2020 Episodic Residual codes; unclassified (15 sources) Patient encounter status; Translations: [Procedure and treatment not carried out due to patient leaving prior to being seen by health care provider] 01-13-2022 Episodic Residual codes; unclassified (7 sources) Bilateral lower limb edema; Translations: [Localized edema] 12-22-2023 Episodic Skin and subcutaneous tissue infections (20 sources) Cellulitis; Translations: [Cellulitis, unspecified] 08-13-2023 Episodic Spondylosis; intervertebral disc disorders; other back problems (8 sources) Cervico-occipital neuralgia; Translations: [Occipital neuralgia] 12-22-2023 Episodic Sprains and strains (16 sources) Sprain of talofibular ligament of left ankle; Translations: [Sprain of other ligament of left ankle, initial encounter] 12-02-2020 Episodic Superficial injury; contusion (20 sources) Contusion of face; Translations: [Contusion of other part of head, initial encounter] 12-02-2020 Episodic Unclassified (1 source) G43.909 - Migraine, unspecified, not intractable, without status migrainosus,M54.81 - Occipital neuralgia,M54.2 - Cervicalgia Urinary tract infections (20 sources) Acute cystitis; Translations: [Acute cystitis without hematuria] 08-14-2023 Episodic Past or Other Problems Problem Classification Problem Date Documented Date Episodic/Chronic Nausea and vomiting (17 sources) Nausea, vomiting and diarrhea; Translations: [Nausea with vomiting, unspecified] Onset: 11-21-2024 12-22-2021 Episodic Other connective tissue disease (16 sources) Repeated falls; Translations: [History of fall] Onset: 01-28-2025 Episodic Other injuries and conditions due to external causes (1 source) Encounter for examination and observation following other accident; Translations: [Encounter for examination and observation following other accident] Onset: 11-21-2024 Episodic Other nervous system disorders (1 source) Other abnormalities of gait and mobility; Translations: [Other abnormalities of gait and mobility] Onset: 01-28-2025 Episodic Other screening for suspected conditions (not mental disorders or infectious disease) (1 source) Encounter for screening for lipoid disorders; Translations: [Encounter for screening for lipoid disorders] Onset: 06-18-2024 Episodic Unclassified (11 sources) Contusion of right knee, initial encounter 12-02-2020 Results Test Name Value Interpretation Reference Range Facility HIP, UNI W/ Pelvis 2-3 Views on 05-24-2025 HIP, UNI W/ Pelvis 2-3 Views [facility] Imaging Services [address] [place] [address] [id number] HIP, UNI W/ Pelvis 2-3 Views MR#: [id number] Acct: [id number] Name: VANESSA HERNANDEZ Rep #: [id number] : 1945 F 80 From: Felipe Wesley PCP: Dr. Moon Rayo MD Status: DEP AMB Study: HIP, UNI W/ Pelvis 2-3 Views Date of Exam: Exam# [id number] Ordering Dr: Alvin Steele DO PROCEDURE: HIP, UNI W/ PELVIS 2-3 VIEWS 05/24/2025 REASON FOR EXAM: CHRONIC PAIN TECHNIQUE: Procedure Code: RADHP Modality: DX Procedure: HIP, UNI W/ PELVIS 2-3 VIEWS Laterality: Left COMPARISON: Right hip and pelvis 03/07/2024 and bilateral hip and pelvis 03/11/2020 RAD/HIP, UNI W/ Pelvis 2-3 Views IMPRESSION: Prominent degenerative changes and levoscoliosis of the lumbar spine are again noted. Mild sacroiliac joint degenerative changes are seen. Progressive degenerative changes of the right hip joint noted, now with at least moderate joint space narrowing seen. The left hip joint demonstrates mild degenerative changes, without evidence of joint space narrowing. No evidence of femoral head osteonecrosis. No acute fracture or dislocation is seen. Reading Location: [facility] CC: Dr. Alvin Steele DO; Dr. Moon Rayo MD Windows Phone Developer: Signed Normal [facility] Orthopedic Visit Reporton Orthopedic Visit Report [facility] [address] [place] [address] OFFICE VISIT Date of Service: 05/24/25 MR#: [id number] Acct: [id number] Name: VANESSA HERNANDEZ Rep #: [id number] : 1945 Provider: Dr. Alvin goldsmith DO Age/Sex: 80/F Location: [facility] – [place] Status: Signed Intake Vital Signs 04/18/25 09:54 05/24/25 09:28 Height 5 ft 5 in 5 ft 5 in Weight: 236 lb 233 lb 8 oz BMI 39.2 38.8 BP 138/85 H Blood Pressure Location Rt brachial Position Sitting Respiration 16 Pulse 89 Pulse Source Monitor Temp 98.4 F Temp Source Temporal Pulse Oximetry (%) 93 Oxygen Delivery Method room air Intake Visit Reasons: LEFT HIP Accompanied by: Self Allergies adhesive tape Allergy (Severe, Verified 05/24/25 09:13) Area Sore cefpodoxime (From Vantin) Allergy (Unknown, Verified 05/24/25 09:13) Unknown codeine Allergy (Unknown, Verified 05/24/25 09:13) Unknown metronidazole (From Flagyl) Allergy (Unknown, Verified 05/24/25 09:13) Unknown sulfamethoxazole (From Bactrim) Allergy (Unknown, Verified 05/24/25 09:13) Unknown trimethoprim (From Bactrim) Allergy (Unknown, Verified 05/24/25 09:13) Unknown Sulfa (Sulfonamide Antibiotics) Allergy (Verified 05/24/25 09:13) Unknown Medications ???Medication ???Instructions ???Recorded ???Confirmed ???Type biotin 2,500 mcg capsule 1 cap PO DAILY supplement 09/24/20 05/24/25 History multivitamin with minerals 1 tab PO DAILY supplement 09/24/20 05/24/25 History aspirin 81 mg chewable tablet 81 mg PO BREAKFAST #0 tabs 4 05/24/25 Rx sumatriptan succinate 25 mg tablet See Rx Instructions PO .COMPLEX 11/21/23 05/24/25 Rx #14 tabs ondansetron 4 mg disintegrating 4 mg PO Q6H PRN nausea and 4 05/24/25 Rx tablet vomiting #7 tabs sumatriptan succinate 6 mg/0.5 mL 6 mg (0.5 mL) subcut Q1-4H PRN 05/24/25 Rx subcutaneous pen injector (Imitrex migraine headache #1 mL STATdose Pen) walker (Ultra-Light Rollator misc) #1 ea 01/07/25 05/24/25 Rx furosemide 20 mg tablet (Lasix) 20 mg PO Q OTHER DAY #10 tabs 01/2305/24/25 Rx atorvastatin 40 mg tablet 40 mg PO QHS #90 tabs 04/03/25 Rx clopidogrel 75 mg tablet 75 mg PO DAILY #90 tabs 04/03/25 1 Rx gabapentin 100 mg capsule 100 mg PO Q12H neuropathy #180 cap s 04/03/25 05/24/25 Rx omeprazole 40 mg capsule,delayed 40 mg PO DAILY stomach #90 caps 05/24/25 Rx release potassium chloride 20 mEq 20 meq PO QDAY #90 tabs 04/03/25 1 Rx tablet,extended release(part/cryst) (Klor-Con M) ropinirole 0.5 mg tablet 0.5 mg PO QHS restless legs #90 05/24/25 Rx tabs sertraline 100 mg tablet 200 mg (2 x 100 mg) PO DAILY mood 04/03/25 05/24/25 Rx #180 tabs sumatriptan succinate 25 mg tablet See Rx Instructions PO .COMPLEX 04/18/25 05/24/25 Rx #14 tabs ferrous sulfate 137 mg (45 mg 137 mg PO QDAY #90 tabs 05/20/25 1 Rx iron) tablet,extended release (Slow Fe) trazodone 50 mg tablet 25 mg (1/2 x 50 mg) PO DAILY PRN 1 05/24/25 Rx insomnia #30 tabs Gemtesa 75 mg tablet (vibegron) 75 mg PO QDAY #90 tabs 05/24/25 Rx Have you fallen in the past year?: No PFSH Medical History (Updated 05/24/25 @ 09:[address] Alvin Steele, DO) Subconjunctival hemorrhage Conjunctival hemorrhage of left eye Balance problem Urinary incontinence Right hip pain Microcytic anemia Anxiety Rheumatoid arthritis Non-smoker Migraines TIA (transient ischemic attack) Stroke/cerebrovascular accident Generalized weakness Hypokalemia Abdominal pain Asthma DDD (degenerative disc disease) Obesity Frequent falls Essential (primary) hypertension Overactive bladder Chronic back pain Insomnia Hyperlipidemia Depression Osteoarthritis of left knee Iron deficiency anemia Localized swelling of chest wall Confusion Dark stools Left-sided chest wall pain Vitamin D deficiency Vision problems Pneumonia Osteoarthritis Neuropathy IBS (irritable bowel syndrome) Chronic headaches GERD (gastroesophageal reflux disease) H/O emotional problems Chronic bronchitis Surgical History History of appendectomy History of left knee replacement History of left heart catheterization (10/14/20) 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 History of total right knee replacement History of gastric surgery History of hysterectomy History of Hx of breast reduction, elective History of back surgery History of hernia repair History of right knee joint replacement History of cholecystectomy Family History Sister Anesthesia complication Breast cancer H (more content not included)... Normal [facility] MR/BMS.[facility] 04-18-2025 MR/BMS.[facility] [address] [place] [address] OFFICE VISIT Date of Service: 04/18/25 MR#: [id number] Acct: [id number] Name: VANESSA HERNANDEZ Rep #: [id number] : 1945 Provider: Dr. Moon de la cruz MD Age/Sex: 79/F Location: [facility] Status: Signed Intake Vital Signs 02/21/25 09:44 04/18/25 09:54 Height 5 ft 5 in 5 ft 5 in Weight: 231 lb 4 oz 236 lb BMI 38.5 39.2 BP 135/81 H 138/85 H Blood Pressure Location Rt brachial Rt brachial Position Sitting Sitting Respiration 16 16 Pulse 90 89 Pulse Source Monitor Monitor Temp 98.4 F 98.4 F Temp Source Temporal Temporal Pulse Oximetry (%) 94 93 Oxygen Delivery Method room air room air Intake Visit Reasons: Headaches Chief Complaint: Headaches, neck pain Magnet Placer Required: No Accompanied by: Self Is patient in pain?: Yes (Head and neck ) Pain scale (1-10): 7 Allergies adhesive tape Allergy (Severe, Verified 04/18/25 09:34) Area Sore cefpodoxime (From Vantin) Allergy (Unknown, Verified 04/18/25 09:34) Unknown codeine Allergy (Unknown, Verified 04/18/25 09:34) Unknown metronidazole (From Flagyl) Allergy (Unknown, Verified 04/18/25 09:34) Unknown sulfamethoxazole (From Bactrim) Allergy (Unknown, Verified 04/18/25 09:34) Unknown trimethoprim (From Bactrim) Allergy (Unknown, Verified 04/18/25 09:34) Unknown Sulfa (Sulfonamide Antibiotics) Allergy (Verified 04/18/25 09:34) Unknown Medications ???Medication ???Instructions ???Recorded ???Confirmed ???Type biotin 2,500 mcg capsule 1 cap PO DAILY supplement 09/24/20 04/18/25 History multivitamin with minerals 1 tab PO DAILY supplement 09/24/20 04/18/25 History aspirin 81 mg chewable tablet 81 mg PO BREAKFAST #0 tabs 4 04/18/25 Rx sumatriptan succinate 25 mg tablet See Rx Instructions PO .COMPLEX 11/21/23 04/18/25 Rx #14 tabs vibegron 75 mg tablet (Gemtesa) 75 mg PO QDAY 05/21/24 04/18/25 Hi story ondansetron 4 mg disintegrating 4 mg PO Q6H PRN nausea and 4 04/18/25 Rx tablet vomiting #7 tabs ferrous sulfate 137 mg (45 mg 137 mg PO QDAY #90 tabs 12/10/24 0 04/18/25 Rx iron) tablet,extended release (Slow Fe) sumatriptan succinate 6 mg/0.5 mL 6 mg (0.5 mL) subcut Q1-4H PRN 04/18/25 Rx subcutaneous pen injector (Imitrex migraine headache #1 mL STATdose Pen) walker (Ultra-Light Rollator misc) #1 ea 01/07/25 04/18/25 Rx furosemide 20 mg tablet (Lasix) 20 mg PO Q OTHER DAY #10 tabs /03/1804/18/25 Rx atorvastatin 40 mg tablet 40 mg PO QHS #90 tabs 04/03/25 Rx clopidogrel 75 mg tablet 75 mg PO DAILY #90 tabs 04/03/25 0 04/18/25 Rx gabapentin 100 mg capsule 100 mg PO Q12H neuropathy #180 cap s 04/03/25 04/18/25 Rx omeprazole 40 mg capsule,delayed 40 mg PO DAILY stomach #90 caps 04/18/25 Rx release potassium chloride 20 mEq 20 meq PO QDAY #90 tabs 04/03/25 0 04/18/25 Rx tablet,extended release(part/cryst) (Klor-Con M) ropinirole 0.5 mg tablet 0.5 mg PO QHS restless legs #90 04/18/25 Rx tabs sertraline 100 mg tablet 200 mg (2 x 100 mg) PO DAILY mood 04/03/25 04/18/25 Rx #180 tabs trazodone 50 mg tablet 25 mg (1/2 x 50 mg) PO DAILY PRN 0 04/03/25 04/18/25 Rx insomnia #30 tabs sumatriptan succinate 25 mg tablet See Rx Instructions PO .COMPLEX 04/18/25 04/18/25 Rx #14 tabs Have you fallen in the past year?: No [facility] Medical History (Updated 04/22/25 @ 07:[address] Moon Rayo MD) Subconjunctival hemorrhage Conjunctival hemorrhage of left eye Balance problem Urinary incontinence Right hip pain Microcytic anemia Anxiety Rheumatoid arthritis Non-smoker Migraines TIA (transient ischemic attack) Stroke/cerebrovascular accident Generalized weakness Hypokalemia Abdominal pain Asthma DDD (degenerative disc disease) Obesity Frequent falls Essential (primary) hypertension Overactive bladder Chronic back pain Insomnia Hyperlipidemia Depression Osteoarthritis of left knee Iron deficiency anemia Localized swelling of chest wall Confusion Dark stools Left-sided chest wall pain Vitamin D deficiency Vision problems Pneumonia Osteoarthritis Neuropathy IBS (irritable bowel syndrome) Chronic headaches GERD (gastroesophageal reflux disease) H/O emotional problems Chronic bronchitis Surgical History History of appendectomy History of left knee replacement History of left heart catheterization (10/14/20) 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 History of total right knee replacement History of gastric surgery History of hysterectomy History of Hx of breast reduction, elective History of back surgery History of hernia repair History of right knee joint repla (more content not included)... Normal [facility] MR/BMS.IMBon 02-21-2025 MR/BMS.IMB [facility] [address] [facility] [place] [address] OFFICE VISIT Date of Service: 02/21/25 MR#: [id number] Acct: [id number] Name: VANESSA HERNANDEZ Rep #: [id number] : 1945 Provider: Dr. Moon de la cruz MD Age/Sex: 79/F Location: [facility] [place] Status: Signed Intake Vital Signs 02/18/25 13:36 02/21/25 09:44 Height 5 ft 5 in 5 ft 5 in Weight: 234 lb 231 lb 4 oz BMI 38.9 38.5 BP 147/87 H 135/81 H Blood Pressure Location Rt brachial Rt brachial Position Sitting Sitting Respiration 16 16 Pulse 83 90 Pulse Source Monitor Monitor Temp 98.0 F 98.4 F Temp Source Temporal Temporal Pulse Oximetry (%) 93 94 Oxygen Delivery Method room air room air Intake Visit Reasons: Leg FU Chief Complaint: Leg FU Magnet Placer Required: No Accompanied by: Self Is patient in pain?: No Allergies adhesive tape Allergy (Severe, Verified 02/21/25 09:31) Area Sore cefpodoxime (From Vantin) Allergy (Unknown, Verified 02/21/25 09:31) Unknown codeine Allergy (Unknown, Verified 02/21/25 09:31) Unknown metronidazole (From Flagyl) Allergy (Unknown, Verified 02/21/25 09:31) Unknown sulfamethoxazole (From Bactrim) Allergy (Unknown, Verified 02/21/25 09:31) Unknown trimethoprim (From Bactrim) Allergy (Unknown, Verified 02/21/25 09:31) Unknown Sulfa (Sulfonamide Antibiotics) Allergy (Verified 02/21/25 09:31) Unknown Medications ???Medication ???Instructions ???Recorded ???Confirmed ???Type biotin 2,500 mcg capsule 1 cap PO DAILY supplement 09/24/20 02/21/25 History multivitamin with minerals 1 tab PO DAILY supplement 09/24/20 02/21/25 History aspirin 81 mg chewable tablet 81 mg PO BREAKFAST #0 tabs 4 02/21/25 Rx sumatriptan succinate 25 mg tablet See Rx Instructions PO .COMPLEX 11/21/23 02/21/25 Rx #14 tabs vibegron 75 mg tablet (Gemtesa) 75 mg PO QDAY 05/21/24 02/21/25 Hi story ondansetron 4 mg disintegrating 4 mg PO Q6H PRN nausea and 4 02/21/25 Rx tablet vomiting #7 tabs atorvastatin 40 mg tablet 40 mg PO QHS #90 tabs 12/10/24 Rx clopidogrel 75 mg tablet 75 mg PO DAILY #90 tabs 12/10/24 0 02/21/25 Rx ferrous sulfate 137 mg (45 mg 137 mg PO QDAY #90 tabs 12/10/24 0 02/21/25 Rx iron) tablet,extended release (Slow Fe) gabapentin 100 mg capsule 100 mg PO Q12H neuropathy #180 cap s 12/10/24 02/21/25 Rx omeprazole 40 mg capsule,delayed 40 mg PO DAILY stomach #90 caps 02/21/25 Rx release potassium chloride 20 mEq 20 meq PO QDAY #90 tabs 12/10/24 0 02/21/25 Rx tablet,extended release(part/cryst) (Klor-Con M) ropinirole 0.5 mg tablet 0.5 mg PO QHS restless legs #90 02/21/25 Rx tabs sertraline 100 mg tablet 200 mg (2 x 100 mg) PO DAILY mood 12/10/24 02/21/25 Rx #180 tabs sumatriptan succinate 6 mg/0.5 mL 6 mg (0.5 mL) subcut Q1-4H PRN 05 /19/25 07/31/25 Rx subcutaneous pen injector (Imitrex migraine headache #1 mL STATdose Pen) trazodone 50 mg tablet 25 mg (1/2 x 50 mg) PO DAILY PRN 0 12/10/24 02/21/25 Rx insomnia #30 tabs walker (Ultra-Light Rollator misc) #1 ea 01/07/25 02/21/25 Rx doxycycline hyclate 100 mg tablet 100 mg PO BID #20 tabs 02/18/25 0 02/21/25 Rx furosemide 20 mg tablet (Lasix) 20 mg PO Q OTHER DAY #10 tabs 01/2302/21/25 Rx Have you fallen in the past year?: No [facility] Medical History Subconjunctival hemorrhage Conjunctival hemorrhage of left eye Balance problem Urinary incontinence Right hip pain Microcytic anemia Anxiety Rheumatoid arthritis Non-smoker Migraines TIA (transient ischemic attack) Stroke/cerebrovascular accident Generalized weakness Hypokalemia Abdominal pain Asthma DDD (degenerative disc disease) Obesity Frequent falls Essential (primary) hypertension Overactive bladder Chronic back pain Insomnia Hyperlipidemia Depression Osteoarthritis of left knee Iron deficiency anemia Localized swelling of chest wall Confusion Dark stools Left-sided chest wall pain Vitamin D deficiency Vision problems Pneumonia Osteoarthritis Neuropathy IBS (irritable bowel syndrome) Chronic headaches GERD (gastroesophageal reflux disease) H/O emotional problems Chronic bronchitis Surgical History History of appendectomy History of left knee replacement History of left heart catheterization (10/14/20) 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 History of total right knee replacement History of gastric surgery History of hysterectomy History of Hx of breast reduction, elective History of back surgery History of hernia repair History of right knee joint replacement History of cholecystectomy Family History (Reviewed 02/21/25 @ 0 (more content not included)... Normal [facility] /René 02-18-2025 MR/SIMONE.CARYN [facility] [address] [facility] [address] [place] [address] OFFICE VISIT Date of Service: 02/18/25 MR#: [id number] Acct: [id number] Name: VANESSA HERNANDEZ Rep #: [id number] : 1945 Provider: Dr. Moon de la cruz MD Age/Sex: 79/F Location: [facility] [place] Status: Signed Intake Vital Signs 09/03/24 09:55 02/18/25 13:36 Height 5 ft 5 in 5 ft 5 in Weight: 213 lb 2 oz 234 lb BMI 35.4 38.9 BP 134/88 H 147/87 H Blood Pressure Location Rt brachial Rt brachial Position Sitting Sitting Respiration 16 16 Pulse 95 83 Pulse Source Monitor Monitor Temp 98.2 F 98.0 F Temp Source Temporal Temporal Pulse Oximetry (%) 95 93 Oxygen Delivery Method room air room air Intake Visit Reasons: Possible Cellulitus Chief Complaint: Possible cellulitis Magnet Placer Required: No Accompanied by: Self Is patient in pain?: Yes (Left leg) Pain scale (1-10): 6 Allergies adhesive tape Allergy (Severe, Verified 02/18/25 13:27) Area Sore cefpodoxime (From Vantin) Allergy (Unknown, Verified 02/18/25 13:27) Unknown codeine Allergy (Unknown, Verified 02/18/25 13:27) Unknown metronidazole (From Flagyl) Allergy (Unknown, Verified 02/18/25 13:27) Unknown sulfamethoxazole (From Bactrim) Allergy (Unknown, Verified 02/18/25 13:27) Unknown trimethoprim (From Bactrim) Allergy (Unknown, Verified 02/18/25 13:27) Unknown Sulfa (Sulfonamide Antibiotics) Allergy (Verified 02/18/25 13:27) Unknown Medications ???Medication ???Instructions ???Recorded ???Confirmed ???Type biotin 2,500 mcg capsule 1 cap PO DAILY supplement 09/24/20 02/18/25 History multivitamin with minerals 1 tab PO DAILY supplement 09/24/20 02/18/25 History aspirin 81 mg chewable tablet 81 mg PO BREAKFAST #0 tabs 4 02/18/25 Rx sumatriptan succinate 25 mg tablet See Rx Instructions PO .COMPLEX 11/21/23 02/18/25 Rx #14 tabs vibegron 75 mg tablet (Gemtesa) 75 mg PO QDAY 05/21/24 02/18/25 Hi story ondansetron 4 mg disintegrating 4 mg PO Q6H PRN nausea and 4 02/18/25 Rx tablet vomiting #7 tabs atorvastatin 40 mg tablet 40 mg PO QHS #90 tabs 12/10/24 Rx clopidogrel 75 mg tablet 75 mg PO DAILY #90 tabs 12/10/24 0 02/18/25 Rx ferrous sulfate 137 mg (45 mg 137 mg PO QDAY #90 tabs 12/10/24 0 02/18/25 Rx iron) tablet,extended release (Slow Fe) gabapentin 100 mg capsule 100 mg PO Q12H neuropathy #180 cap s 12/10/24 02/18/25 Rx omeprazole 40 mg capsule,delayed 40 mg PO DAILY stomach #90 caps 02/18/25 Rx release potassium chloride 20 mEq 20 meq PO QDAY #90 tabs 12/10/24 0 02/18/25 Rx tablet,extended release(part/cryst) (Klor-Con M) ropinirole 0.5 mg tablet 0.5 mg PO QHS restless legs #90 02/18/25 Rx tabs sertraline 100 mg tablet 200 mg (2 x 100 mg) PO DAILY mood 12/10/24 02/18/25 Rx #180 tabs sumatriptan succinate 6 mg/0.5 mL 6 mg (0.5 mL) subcut Q1-4H PRN 02/18/25 Rx subcutaneous pen injector (Imitrex migraine headache #1 mL STATdose Pen) trazodone 50 mg tablet 25 mg (1/2 x 50 mg) PO DAILY PRN 0 12/10/24 02/18/25 Rx insomnia #30 tabs walker (Ultra-Light Rollator misc) #1 ea 01/07/25 02/18/25 Rx doxycycline hyclate 100 mg tablet 100 mg PO BID #20 tabs 02/18/25 0 02/18/25 Rx furosemide 20 mg tablet (Lasix) 20 mg PO Q OTHER DAY #10 tabs 01/2302/18/25 Rx Have you fallen in the past year?: No [facility] Medical History (Updated 02/18/25 @ 14:[address] Moon Rayo MD) Subconjunctival hemorrhage Conjunctival hemorrhage of left eye Balance problem Urinary incontinence Right hip pain Microcytic anemia Anxiety Rheumatoid arthritis Non-smoker Migraines TIA (transient ischemic attack) Stroke/cerebrovascular accident Generalized weakness Hypokalemia Abdominal pain Asthma DDD (degenerative disc disease) Obesity Frequent falls Essential (primary) hypertension Overactive bladder Chronic back pain Insomnia Hyperlipidemia Depression Osteoarthritis of left knee Iron deficiency anemia Localized swelling of chest wall Confusion Dark stools Left-sided chest wall pain Vitamin D deficiency Vision problems Pneumonia Osteoarthritis Neuropathy IBS (irritable bowel syndrome) Chronic headaches GERD (gastroesophageal reflux disease) H/O emotional problems Chronic bronchitis Surgical History History of appendectomy History of left knee replacement History of left heart catheterization (10/14/20) 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 History of total right knee replacement History of gastric surgery History of hysterectomy History of Hx of breast reduction, elective History of back surgery History of hernia repair History of right knee joint replacement History of (more content not included)... Normal [facility] PT D/C Summary (1)on 025 PT D/C Summary (1) [facility] Physical Therapy [facility] [address] [place] [address] [address] [place] [address] / REHABILITATION SERVICES DISCHARGE SUMMARY MR#: [id number] Acct: [id number] Name: VANESSA HERNANDEZ Rep #: [id number] : 1945 79 From: Dulce Maria LOPEZ Referring Dr.: Dr. Moon Rayo MD Status: R EG RCR Insurance: [facility] MEDICARE [employer] PAY INSURANCE Discharge Summary D/C summary: It has been my pleasure to treat VANESSA HERNANDEZ referred by Dr. Moon Rayo MD, with the diagnosis of DDD R hip, balance issue, freq falls, gait dysfunction for a total of 5 visit(s). Discharge Date: 01/28/25 Please see the following information for a summary of their discharge status. Subjective Subjective: Pt feels that PT is going fairly well. She still fall back with EC. She reports that the machines sometimes bother her shoulder. She does not feel that she needs additional therapy. She has had no falls. She has a girl that helps her at her house. She is able to bath and dress herself. Pain Hips: Pain Intensity (Out of 10): 0 Shoulders: Pain Intensity (Out of 10): 0 Back: Pain Intensity (Out of 10): 0 Overall Improvement % Improvement: 90 Objective Objective/Function: Gait: walked back to the treatment room from the waiting room and was SOB and took some time to recover LE MMT: R hip flex 12.2 and L 10.2 R knee ext 17.7 and L 16.7 R knee flex 15.9 and L 14.8 Pt is able to walk 2 laps around dept with rollator and needed to stop and rest for 20 seconds twice and was SOB after and took a few min to recover. Standing with EC X 6- 8 seconds Goals Goal 1:: I HEP Goal Progress: Goal Met Goal 2:: Increase LE strength (at the time of the eval: LE MMT: R hip flex 5.7 and L 5.7 R knee ext 7.2 and L 8.4 R knee flex 6.2 and L 5.7). Goal Progress: Goal Met Goal 3:: Be able to side step without UE support but CGA length of // bars to be able to work around her kitchen Goal Progress: Goal Met Goal 4:: Be able to stand with EC X 10 seconds with no LOB Goal Progress: Not Progressing Goal 5:: Be able to walk 2 laps with rollator without SOB Goal Progress: Progressing Plan Plan: DC PT D/C Information Discharge Comments: DC PT to HEP d/c sentence: If there are questions or concerns regarding this patient's physical therapy, please feel free to call me at [phone]. Thank you for the referral of this patient. Sincerely, Dulce Maria Lance, JOHN Balance/Gait/Functiona l tests Balance/Special Test Scores Lower Extremity Functional Score: 44 Improvement % Improvement: 90 01/28/25 0958 CC: Dr. Moon Rayo MD Signed Normal [facility] Inital Evaluation (1) - PTon 12-19-2024 Inital Evaluation (1) - PT [facility] Physical Therapy [facility] [place] [address] / REHABILITATION SERVICES INITIAL EVALUATION MR#: [id number] Acct: [id number] Name: VANESSA HERNANDEZ Rep #: [id number] : 1945 79 From: Dulce Maria LOPEZ Referring Dr.: Dr. Moon Rayo MD Status: R EG RCR Insurance: [employer] PAY INSURANCE Patient's Visit Information Visit Information Visit Information: VANESSA HERNANDEZ is a 79 year old F referred to Physical Therapy by Dr. Moon Rayo MD with a diagnosis of DDD R hip, balance issue, freq falls, gait dysfunction. Date of Evaluation: 12/19/24 Physical Therapist: JOHN Vernon Visit Plan Frequency: 2x /Week Duration: 2 Months Plan: Gait belt at all times! Pt likes to fall BW with EC in like 3 seconds. 2X/ week for 8 weeks for LE strength, functional strength, Balance (side stepping, head turns with and without UE support), endurance, gait training with HEP Subjective Subjective: Pt reports that she is a fall risk and falls FW and BW with no warning and they do not know why. Her falls are not when she is using her rollator. She has had 2 back operations and her R hip and R shoulder is not good. The last fall was bad and she fell on he R side of head and she caught her toe on the rug and went down on her face and that time she was using the rollator and it went flying. When she falls she can not get up. Her last fall was in September. She is able to get out of her lift chair at home and then she has a 2 seater couch that she can get out of or a straight chair with the use of her arms. She lives alone. She is able to get in and out of the bed with a bed rail. She has no steps to get in and out of her home. She has druze friends that take her to the grocery store. If she goes to [facility] then she will use a rolling cart. Objective Objective: Gait: walks with a rollator with shorter step length and decreased heel to toe pattern with a rollator. SOB getting back to the treatment rooms. LE MMT: R hip flex 5.7 and L 5.7 R knee ext 7.2 and L 8.4 R knee flex 6.2 and L 5.7 Standing heel and toe raises: Pt is able to heel raise about 1/2 normal ROM using her UE's. She is not able to toe lift on the L and able to to toe lift on the R for 1/2 normal ROM Sit to stand: able to get up using one arm to help get up on first attempt. Standing with EC for 3 seconds and then loses her balance backwards and therapist helps catch her from falling back into the chair. Side stepping along the mat table with min A and occ hand touching the mat table Turning 360 degrees she is able to do it with some UE touching to balance herself. Balance/Special Test Scores Lower Extremity Functional Score: 29 Goals Goal 1:: I HEP Goal Time Frame: 6-8 Weeks Goal 2:: Increase LE strength (at the time of the eval: LE MMT: R hip flex 5.7 and L 5.7 R knee ext 7.2 and L 8.4 R knee flex 6.2 and L 5.7). Goal Time Frame: 6-8 Weeks Goal 3:: Be able to side step without UE support but CGA length of // bars to be able to work around her kitchen Goal Time Frame: 6-8 Weeks Goal 4:: Be able to stand with EC X 10 seconds with no LOB Goal Time Frame: 6-8 Weeks Goal 5:: Be able to walk 2 laps with rollator without SOB Goal Time Frame: 6-8 Weeks Rehabilitation Potential Rehabilitation Potential: Good Anticipated Interventions Patient/Client Instruction: Educate patient on: Condition and Plan of Care For the Purpose of:: To decrease pain, To increase ROM, To improve nutrient delivery to tissue, To improve muscle performance and motor function, To improve ability to perform ADL's, To improve performance and independence with ADL's, To decrease level of supervision to perform tasks, To improve ability of physical actions for home/community/work/le isure, To improve gait and locomotor functions, To improve health of tissue, To improve endurance, To improve balance and To improve safety with gait Therapeutic Exercise to Include: Strength training, Endurance training, Balance training, Postural training, Flexibilty training, Gait and locomotor training, Neuromotor development, Active ROM and Dynamic Lumbar Stabilization For the Purpose of:: To decrease pain, To improve muscle performance and motor function, To improve ability to perform ADL's, To increase tolerance to activity/condition/pos ition, To improve performance and independence with ADL's, To decrease level of supervision to perform tasks, To improve gait and locomotor functions, To improve health of tissue, To decrease soft tissue restriction, To increase flexibility/ROM, To improve endurance, To improve balance and To improve safety with gait Functional Training to Include: Gait training For the Purpose of:: To improve gait and locomotor functions and To improve safety with gait Text: Thank you (more content not included)... Normal [facility] MR/BMS.IMBon 09-03-2024 MR/BMS.IMB [facility] [address] [facility] [place] [address] OFFICE VISIT Date of Service: 09/03/24 MR#: [id number] Acct: [id number] Name: VANESSA HERNANDEZ Rep #: [id number] : 1945 Provider: Dr. Moon de la cruz MD Age/Sex: 79/F Location: [facility] Status: Signed Intake Vital Signs 08/26/24 07:23 08/31/24 11:18 09/03/24 09:55 Height 5 ft 5 in 5 ft 5 in 5 ft 5 in Weight: 213 lb 2 oz BMI 35.4 BP 134/88 H Blood Pressure Location Rt brachial Position Sitting Respiration 16 Pulse 95 Pulse Source Monitor Temp 98.2 F Temp Source Temporal Pulse Oximetry (%) 95 Oxygen Delivery Method room air Intake Visit Reasons: [facility] ER FU Chief Complaint: [facility] ER FU Magnet Placer Required: No Accompanied by: Friend Is patient in pain?: Yes (Head) Pain scale (1-10): 6 Allergies adhesive tape Allergy (Severe, Verified 09/03/24 09:40) Area Sore cefpodoxime (From Vantin) Allergy (Unknown, Verified 09/03/24 09:40) Unknown codeine Allergy (Unknown, Verified 09/03/24 09:40) Unknown metronidazole (From Flagyl) Allergy (Unknown, Verified 09/03/24 09:40) Unknown sulfamethoxazole (From Bactrim) Allergy (Unknown, Verified 09/03/24 09:40) Unknown trimethoprim (From Bactrim) Allergy (Unknown, Verified 09/03/24 09:40) Unknown Sulfa (Sulfonamide Antibiotics) Allergy (Verified 09/03/24 09:40) Unknown Medications ???Medication ???Instructions ???Recorded ???Confirmed ???Type biotin 2,500 mcg capsule 1 cap PO DAILY supplement 09/24/20 09/03/24 History multivitamin with minerals 1 tab PO DAILY supplement 09/24/20 09/03/24 History side rails for bed #1 ea 07/15/22 09/03/24 Rx walker (Ultra-Light Rollator misc) #1 ea 08/23/22 09/03/24 Rx aspirin 81 mg chewable tablet 81 mg PO BREAKFAST #0 tabs 4 09/03/24 Rx atorvastatin 40 mg tablet 40 mg PO QHS #90 tabs 10/21/2305/18 Rx clopidogrel 75 mg tablet 75 mg PO DAILY #90 tabs 10/21/23 0 09/03/24 Rx ropinirole 0.5 mg tablet 0.5 mg PO QHS restless legs #90 09/03/24 Rx tabs sertraline 100 mg tablet 200 mg (2 x 100 mg) PO DAILY mood 10/21/23 09/03/24 Rx #180 tabs sumatriptan succinate 25 mg tablet See Rx Instructions PO .COMPLEX 11/21/23 09/03/24 Rx #14 tabs omeprazole 40 mg capsule,delayed 40 mg PO DAILY stomach #90 caps 09/03/24 Rx release sumatriptan succinate 6 mg/0.5 mL 6 mg (0.5 mL) subcut Q1-4H PRN 09/03/24 Rx subcutaneous pen injector (Imitrex migraine headache #1 mL STATdose Pen) trazodone 50 mg tablet 25 mg (1/2 x 50 mg) PO DAILY PRN 0 02/21/24 09/03/24 Rx insomnia #10 tabs gabapentin 100 mg capsule 100 mg PO Q12H neuropathy #180 cap s 05/11/24 09/03/24 Rx ferrous sulfate 137 mg (45 mg 137 mg PO QDAY #90 tabs 05/21/24 0 09/03/24 Rx iron) tablet,extended release (Slow Fe) vibegron 75 mg tablet (Gemtesa) 75 mg PO QDAY 05/21/24 09/03/24 Hi story potassium chloride 20 mEq 20 meq PO QDAY #90 tabs 06/18/24 0 09/03/24 Rx tablet,extended release(part/cryst) (Klor-Con M) ondansetron 4 mg disintegrating 4 mg PO Q6H PRN nausea and 4 09/03/24 Rx tablet vomiting #7 tabs cephalexin 500 mg capsule 500 mg PO Q12 7 days #14 CAPSULES 08/26/24 09/03/24 Rx Have you fallen in the past year?: Yes (08/26/2024, fell out of bed and hit head) PFSH Medical History Urinary incontinence Right hip pain Microcytic anemia Anxiety Rheumatoid arthritis Non-smoker Migraines TIA (transient ischemic attack) Stroke/cerebrovascular accident Generalized weakness Hypokalemia Abdominal pain Asthma DDD (degenerative disc disease) Obesity Frequent falls Essential (primary) hypertension Overactive bladder Chronic back pain Insomnia Hyperlipidemia Depression Osteoarthritis of left knee Iron deficiency anemia Localized swelling of chest wall Confusion Dark stools Left-sided chest wall pain Vitamin D deficiency Vision problems Pneumonia Osteoarthritis Neuropathy IBS (irritable bowel syndrome) Chronic headaches GERD (gastroesophageal reflux disease) H/O emotional problems Chronic bronchitis Surgical History History of appendectomy History of left knee replacement History of left heart catheterization (10/14/20) 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 History of total right knee replacement History of gastric surgery History of hysterectomy History of Hx of breast reduction, elective History of back surgery History of hernia repair History of right knee joint replacement History of cholecystectomy Family History Sister Anesthesia complication Breast cancer Hypertension Ca (more content not included)... Normal [facility] Urine Cultureon 08-28-2024 URC Mixed Gram Positive Organisms Scott Count 25,000-50,000 MIXC Mixed contaminants. Submit a new specimen if indicated. Normal [facility] Comment on above: Performed By: #### L 500.4050, L100.0100 #### [facility] [address] [place], [place], [id number] Basic Metabolic Profile (BMP )on 08-26-2024 BUN/CRE 33.6 RATIO High 10-20 [facility] Comment on above: Performed By: #### L 100.0100, L500.2500 #### [facility] [address] [place], [address] CA,Total 9.0 mg/dL Normal 8.5-10.1 [facility] Comment on above: Performed By: #### L 100.0100, L500.2500 #### [facility] [address] [place], [address] Chloride [Moles/Vol] 107 mmol/L Normal 98-107 [facility] Comment on above: Performed By: #### L 100.0100, L500.2500 #### [facility] [address] [place], [address] CO2 [Moles/Vol] 27.0 mmol/L Normal 21.0-32.0 [facility] Comment on above: Performed By: #### L 100.0100, L500.2500 #### [facility] [address] [place], [address] Creatinine [Mass/Vol] 0.65 mg/dL Normal 0.55-1.02 [facility] Comment on above: Result Comment: The validity of the calculated GFR GFRAA in patients over 70 years has not been determined. Clinical correlation is essential. Performed By: #### L 100.0100, L500.2500 #### [facility] [address] [place], [address] ECRCL 66.79 ml/min Normal [facility] Comment on above: Performed By: #### L 100.0100, L500.2500 #### [facility] [address] [place], [address] EST GFR - AA 112 mL/min Normal >60 [facility] Comment on above: Result Comment: Afri can Burmese GFR Calc Performed By: #### L 100.0100, L500.2500 #### [facility] [address] [place], [address] GAP 8 Normal 5-15 [facility] Comment on above: Performed By: #### L 100.0100, L500.2500 #### [facility] [address] [place], [address] GFR/1.73 sq M.predicted among non-blacks MDRD (S/P/Bld) [Vol rate/Area] 93 mL/min/{1.73_m2} Normal >60 [facility] Comment on above: Result Comment: Non- GFR Calc Performed By: #### L 100.0100, L500.2500 #### [facility] [address] [place], [address] Glucose [Mass/Vol] 94 mg/dL Normal 74-106 [facility] Comment on above: Performed By: #### L 100.0100, L500.2500 #### [facility] [address] [place], [address] Potassium [Moles/Vol] 3.8 mmol/L Normal 3.5-5.1 [facility] Comment on above: Performed By: #### L 100.0100, L500.2500 #### [facility] [address] [place], [address] Sodium [Moles/Vol] 141 mmol/L Normal 136-145 [facility] Comment on above: Performed By: #### L 100.0100, L500.2500 #### [facility] [address] [place], [address] Urea nitrogen [Mass/Vol] 22 mg/dL High 7-18 [facility] Comment on above: Performed By: #### L 100.0100, L500.2500 #### [facility] [address] [place], [address] Brain/Head without Contrasto n 08-26-2024 Brain/Head without Contrast [facility] Imaging Services [address] [place] [address] Brain/Head without Contrast MR#: [id number] Acct: [id number] Name: VANESSA HERNANDEZ Rep #: [id number] : 1945 F 79 From: Tay Cuellar MD PCP: Dr. Moon Rayo MD Status: REG ER Study: Brain/Head without Contrast Date of Exam: 09/18 Exam# [id number] Ordering Dr: Abhay Barrios DO EXAM: BRAIN/HEAD WITHOUT CONTRAST CLINICAL HISTORY: Trauma COMPARISON: None. TECHNIQUE: Noncontrast images of the head with multiplanar reconstructions. Dose reduction techniques were used including intermediate exposure control (AEC),iterative reconstruction technique, and/or mA and/or KV dose adjustments based on patient's size. FINDINGS: CT HEAD FINDINGS: Chronic changes. No acute intracranial hemorrhage, mass, mass effect, midline shift or pathologic extra-axial fluid collection. No hydrocephalus. Age- appropriate cerebral volume and white matter. Visualized paranasal sinuses and mastoid air cells are clear. The calvarium is grossly intact. CT/Brain/Head without Contrast IMPRESSION: No CT evidence of acute intracranial pathology. Reading Location: [facility] CC: Dr. Abhay Barrios DO; Dr. Moon Rayo MD Windows Phone Developer: Signed Normal [facility] CBC W/Diff, Automatedon Absolute Lymph 1.96 X10 3/uL Normal 0.83-4.51 [facility] Comment on above: Performed By: #### L 100.0100, L500.2500 #### [facility] [address] [place], [address] Absolute Neut 9.0 X10 3/uL High 2.0-7.7 [facility] Comment on above: Performed By: #### L 100.0100, L500.2500 #### [facility] [address] [place], [address] Basophils/100 WBC (Bld) 0.5 % Normal 0-1 [facility] Comment on above: Performed By: #### L 100.0100, L500.2500 #### [facility] [address] [place], [address] Eosinophils/100 WBC (Bld) 0.9 % Normal 0-5 [facility] Comment on above: Performed By: #### L 100.0100, L500.2500 #### [facility] [address] [place], [address] Erythrocyte distribution width (RBC) [Ratio] 19.6 % High 11.6-14.6 [facility] Comment on above: Performed By: #### L 100.0100, L500.2500 #### [facility] [address] [place], [address] Hematocrit (Bld) [Volume fraction] 38.8 % Normal 37-47 [facility] Comment on above: Performed By: #### L 100.0100, L500.2500 #### [facility] [address] [place], [address] Hemoglobin (Bld) [Mass/Vol] 11.7 g/dL Low 12.0-15.0 [facility] Comment on above: Performed By: #### L 100.0100, L500.2500 #### [facility] [address] [place], [address] IG% 0.700 Normal 0.0-0.9 [facility] Comment on above: Result Comment: IG% - Immature Granulocytes (promyelocytes, myelocytes and metamyelocytes) > 1% indicates that a LEFT SHIFT is Present. Performed By: #### L 100.0100, L500.2500 #### [facility] [address] [place], [address] Lymphocytes/100 WBC (Bld) 15.6 % Low 19-41 [facility] Comment on above: Performed By: #### L 100.0100, L500.2500 #### [facility] [address] [place], [address] MCH (RBC) [Entitic mass] 24.7 pg Low 27.0-32.0 [facility] Comment on above: Performed By: #### L 100.0100, L500.2500 #### [facility] [address] [place], [address] MCHC (RBC) [Mass/Vol] 30.2 g/dL Low 32-36 [facility] Comment on above: Performed By: #### L 100.0100, L500.2500 #### [facility] [address] [place], [address] MCV (RBC) [Entitic vol] 82.0 fL Normal 81-99 [facility] Comment on above: Performed By: #### L 100.0100, L500.2500 #### [facility] [address] [place], [address] Monocytes/100 WBC (Bld) 10.7 % High 0-10 [facility] Comment on above: Performed By: #### L 100.0100, L500.2500 #### [facility] [address] [place], [address] Neutrophils/100 WBC (Bld) 71.6 % High 47-70 [facility] Comment on above: Performed By: #### L 100.0100, L500.2500 #### [facility] [address] [place], [address] Nucleated RBC (Bld) [#/Vol] 0 10*3/uL Normal 0-5 [facility] Comment on above: Performed By: #### L 100.0100, L500.2500 #### [facility] [address] [place], [address] Platelet mean volume (Bld) [Entitic vol] 9.5 fL Normal 6.2-12.0 [facility] Comment on above: Performed By: #### L 100.0100, L500.2500 #### [facility] [address] [place], [address] Platelets (Bld) [#/Vol] 260 10*3/uL Normal 150-450 [facility] Comment on above: Performed By: #### L 100.0100, L500.2500 #### [facility] [address] [place], [address] RBC (Bld) [#/Vol] 4.73 10*6/uL Normal 4.2-5.4 [facility] Comment on above: Performed By: #### L 100.0100, L500.2500 #### [facility] [address] [place], [address] RDW SD 58.7 fl High 35.1-43.9 [facility] Comment on above: Performed By: #### L 100.0100, L500.2500 #### [facility] [address] [place], [address] WBC (Bld) [#/Vol] 12.5 10*3/uL High 4.4-11.0 [facility] Comment on above: Performed By: #### L 100.0100, L500.2500 #### [facility] [address] [place], [address] Emergency Department Summary on 08-26-2024 Emergency Department Summary [facility] Medical Records Department [address] [place] [address] Emergency Department Summary 08/26/24 MR#: [id number] Acct: [id number] Name: VANESSA HERNANDEZ Nitza Rep #: [id number] : 1945 79 From: Abhay Barrios DO PCP: Dr. Moon Rayo MD Status:REG ER Location: ED HPI HPI - Fall History of Present Illness Chief Complaint: Fall Narrative Narrative: Chief complaint and HPI: Fall. 79-year-old female with past medical history of frequent falls, bilateral hip pain/arthritis, overactive bladder with urinary incontinence, CVA on Plavix presents for evaluation of fall. Patient states that she recently got a larger bed/mattress. She states that she was getting up for druze when she rolled out of bed. States she fell on the floor and hit her head on the wall. She denies any LOC or neck pain. Denies any fever, chills, lightheadedness, vision changes, URI symptoms, chest pain, shortness of breath abdominal pain, nausea, vomiting, dysuria, hematuria. Patient states is not uncommon for her to fall. She states it was purely a mechanical fall. States she has been eating and drinking well. Endorses urinary frequency but states that she has a history of this and recently was placed on a medication for overactive bladder. Review of systems: See HPI Medications: As listed on the chart Allergies: As listed on the chart PFSH: Per chart Vital signs: As listed on the chart. Reviewed. Physical exam: Gen: A O x3, NAD Head: Normocephalic, right frontal hematoma Eyes: No sclera icterus, conjunctiva clear, PERRL, EOMI ENT: TMs clear BL, dry mucous membranes, no swelling/lacerations/b lood in the mouth or the nares, No nasal septal hematoma, no facial tenderness Neck: Trachea midline, No JVD, Nontender CV: RRR, no murmurs, no chest wall TTP Resp: Lungs CTA BL, no w/r/c GI: Abd soft, non-distended, non-tender, no r/r/g Musc: Full ROM, no deformity, no spinal TTP, no prem step-offs Skin: Warm, dry, intact Neuro: Alert, oriented, grossly intact, sensation intact, GCS 15 Psych: Cooperative, appropriate mood and affect [facility] Medical History Urinary incontinence Right hip pain Microcytic anemia Anxiety Rheumatoid arthritis Non-smoker Migraines TIA (transient ischemic attack) Stroke/cerebrovascular accident Generalized weakness Hypokalemia Abdominal pain Asthma DDD (degenerative disc disease) Obesity Frequent falls Essential (primary) hypertension Overactive bladder Chronic back pain Insomnia Hyperlipidemia Depression Osteoarthritis of left knee Iron deficiency anemia Localized swelling of chest wall Confusion Dark stools Left-sided chest wall pain Vitamin D deficiency Vision problems Pneumonia Osteoarthritis Neuropathy IBS (irritable bowel syndrome) Chronic headaches GERD (gastroesophageal reflux disease) H/O emotional problems Chronic bronchitis Home Medications ???Medication ???Instructions ???Recorded ???Last Taken ???Type cholecalciferol (vitamin D3) 50 4,000 unit PO DAILY SUPPLEMENT 09/24/20 History mcg (2,000 unit) capsule biotin 2,500 mcg capsule 1 cap PO DAILY supplement 09/24/20 09/24/20 History multivitamin with minerals 1 tab PO DAILY supplement 09/24/20 09/24/20 History side rails for bed #1 ea 07/15/22 Unknown Rx walker (Ultra-Light Rollator misc) #1 ea 08/23/22 Unknown Rx aspirin 81 mg chewable tablet 81 mg PO BREAKFAST #0 tabs 4 Unknown Rx atorvastatin 40 mg tablet 40 mg PO QHS #90 tabs 10/21/23 Unk nown Rx clopidogrel 75 mg tablet 75 mg PO DAILY #90 tabs 10/21/23 U nknown Rx ropinirole 0.5 mg tablet 0.5 mg PO QHS restless legs #90 Unknown Rx tabs sertraline 100 mg tablet 200 mg (2 x 100 mg) PO DAILY mood 10/21/23 Unknown Rx #180 tabs sumatriptan succinate 25 mg tablet See Rx Instructions PO .COMPLEX 11/21/23 Unknown Rx #14 tabs omeprazole 40 mg capsule,delayed 40 mg PO DAILY stomach #90 caps Unknown Rx release sumatriptan succinate 6 mg/0.5 mL 6 mg (0.5 mL) subcut Q1-4H PRN Unknown Rx subcutaneous pen injector (Imitrex migraine headache #1 mL STATdose Pen) trazodone 50 mg tablet 25 mg (1/2 x 50 mg) PO DAILY PRN 0 02/21/24 Unknown Rx insomnia #10 tabs gabapentin 100 mg capsule 100 mg PO Q12H neuropathy #180 cap s 05/11/24 Unknown Rx ferrous sulfate 137 mg (45 mg 137 mg PO QDAY #90 tabs 05/21/24 U nknown Rx iron) tablet,extended release (Slow Fe) iron bisglycinate chelate 28 mg PO QDAY #90 caps 05/21/24 Un known Rx vibegron 75 mg tablet (Gemtesa) 75 mg PO QDAY 05/21/24 Unknown His tory potassium chloride 20 mEq 20 meq PO QDAY #90 tabs 06/18/24 U nknown Rx tablet,extended release(part/cryst) (Klor-Con M) ondansetron (more content not included)... Normal [facility] Spine Cervical without Contr ason 08-26-2024 Spine Cervical without Contras [facility] Imaging Services [address] [place] [address] Spine Cervical without Contras MR#: [id number] Acct: [id number] Name: VANESSA HERNANDEZ Rep #: [id number] : 1945 F 79 From: Tay Cuellar MD PCP: Dr. Moon Rayo MD Status: REG ER Study: Spine Cervical without Contras Date of Exam: 0 08/26/24 Exam# [id number] Ordering Dr: Abhay Barrios DO PROCEDURE: SPINE CERVICAL WITHOUT CONTRAS REASON FOR EXAM: Trauma TECHNIQUE: Cervical spine CT without contrast. COMPARISON: None. FINDINGS: Alignment: Normal Vertebrae: No acute fracture Soft Tissues: Unremarkable Scattered multilevel degenerative changes CT/Spine Cervical without Contras IMPRESSION: No acute CT process in the cervical spine. One or more dose reduction techniques were used (e.g., Automated exposure control, adjustment of the mA and/or kV according to patient size, use of iterative reconstruction technique). Reading [facility] CC: Dr. Abhay Barrios DO; Dr. Moon Rayo MD Windows Phone Developer: Signed Normal [facility] Urinalysis, Completeon 08-26 BACTERIA 1+ /hpf Normal None Seen [facility] Comment on above: Order Comment: COLLE CTOR TO SPECIFY Performed By: #### L 400.0001 #### [facility] [address] [place], [address] CA OX CRYSTAL 1+ /hpf Normal [facility] Comment on above: Order Comment: FREEMAN CTOR TO SPECIFY Performed By: #### L 400.0001 #### [facility] [address] [place], [address] EPI,SQUAMOUS 0-5 SEEN Normal 5-10 [facility] Comment on above: Order Comment: FREEMAN CTOR TO SPECIFY Performed By: #### L 400.0001 #### [facility] [address] [place], [address] RBC 0-5 SEEN Normal 0-5 [facility] Comment on above: Order Comment: FREEMAN CTOR TO SPECIFY Performed By: #### L 400.0001 #### [facility] [address] [place], [address] WBC 5-10 SEEN Normal 0-5 [facility] Comment on above: Order Comment: FREEMAN CTOR TO SPECIFY Performed By: #### L 400.0001 #### [facility] [address] [place], [address] Mucus Ql (Urine sed) 0 SEEN Normal [facility] Comment on above: Order Comment: FREEMAN CTOR TO SPECIFY Performed By: #### L 400.0001 #### [facility] [address] [place], [address] CBC W/Diff, Automatedon 12-2 PLT MORPH GIANT Normal [facility] Comment on above: Performed By: #### L 500.4050, L100.0100 #### [facility] [address] [place], [address] Anisocytosis Ql (Bld) 1+ Normal [facility] Comment on above: Performed By: #### L 500.4050, L100.0100 #### [facility] [address] [place], [address] ATYPICAL LYMPH RARE Normal [facility] Comment on above: Performed By: #### L 500.4050, L100.0100 #### [facility] [address] [place], [address] OVALOCYTE RARE Normal [facility] Comment on above: Performed By: #### L 500.4050, L100.0100 #### [facility] [address] [place], [address] Comprehensive Metabolic Prof ilon 07-14-2024 Albumin [Mass/Vol] 4.0 g/dL Normal 3.2-5.0 [facility] Comment on above: Performed By: #### L 500.4050, L100.0100 #### [facility] [address] [place], [address] Albumin/Globulin [Mass ratio] 1.0 {ratio} Normal 0.9-2.4 [facility] Comment on above: Performed By: #### L 500.4050, L100.0100 #### [facility] [address] [place], [address] ALK P 99 U/L Normal 45-117 [facility] Comment on above: Performed By: #### L 500.4050, L100.0100 #### [facility] [address] [place], [address] ALT [Catalytic activity/Vol] 81 U/L High 13-56 [facility] Comment on above: Performed By: #### L 500.4050, L100.0100 #### [facility] [address] [place], [address] AST [Catalytic activity/Vol] 97 U/L High 15-37 [facility] Comment on above: Performed By: #### L 500.4050, L100.0100 #### [facility] [address] [place], [address] Bilirubin [Mass/Vol] 0.50 mg/dL Normal 0.20-1.00 [facility] Comment on above: Result Comment: For patients on eltrombopag therapy, use of Dimension Leonardo TBIL is not recommended. Performed By: #### L 500.4050, L100.0100 #### [facility] [address] [place], [address] BUN/CRE 13.8 RATIO Normal 10-20 [facility] Comment on above: Performed By: #### L 500.4050, L100.0100 #### [facility] [address] [place], [address] CA,Total 9.8 mg/dL Normal 8.5-10.1 [facility] Comment on above: Performed By: #### L 500.4050, L100.0100 #### [facility] [address] [place], [address] Chloride [Moles/Vol] 103 mmol/L Normal 98-107 [facility] Comment on above: Performed By: #### L 500.4050, L100.0100 #### [facility] [address] [place], [address] CO2 [Moles/Vol] 28.0 mmol/L Normal 21.0-32.0 [facility] Comment on above: Performed By: #### L 500.4050, L100.0100 #### [facility] [address] [place], [address] Creatinine [Mass/Vol] 0.73 mg/dL Normal 0.55-1.02 [facility] Comment on above: Result Comment: The validity of the calculated GFR GFRAA in patients over 70 years has not been determined. Clinical correlation is essential. Performed By: #### L 500.4050, L100.0100 #### [facility] [address] [place], [address] ECRCL 56.19 ml/min Normal [facility] Comment on above: Performed By: #### L 500.4050, L100.0100 #### [facility] [address] [place], [address] EST GFR - AA 100 mL/min Normal >60 [facility] Comment on above: Result Comment: Afri can Burmese GFR Calc Performed By: #### L 500.4050, L100.0100 #### [facility] [address] [place], [address] GAP 8 Normal 5-15 [facility] Comment on above: Performed By: #### L 500.4050, L100.0100 #### [facility] [address] [place], [address] GFR/1.73 sq M.predicted among non-blacks MDRD (S/P/Bld) [Vol rate/Area] 82 mL/min/{1.73_m2} Normal >60 [facility] Comment on above: Result Comment: Non- GFR Calc Performed By: #### L 500.4050, L100.0100 #### [facility] [address] [place], [address] Globulin (S) [Mass/Vol] 4.1 g/dL Normal 2.2-4.2 [facility] Comment on above: Performed By: #### L 500.4050, L100.0100 #### [facility] [address] [place], [address] Glucose [Mass/Vol] 106 mg/dL Normal 74-106 [facility] Comment on above: Result Comment: Fast ing Glucose result from 100 to 125 mg/dL suggests IMPAIRED HOMEOSTASIS per A.D.A. criteria. Performed By: #### L 500.4050, L100.0100 #### [facility] [address] [place], [address] Potassium [Moles/Vol] 3.0 mmol/L Low 3.5-5.1 [facility] Comment on above: Performed By: #### L 500.4050, L100.0100 #### [facility] [address] [place], [address] Sodium [Moles/Vol] 138 mmol/L Normal 136-145 [facility] Comment on above: Performed By: #### L 500.4050, L100.0100 #### [facility] [address] [place], [address] T PROT 8.1 g/dL Normal 6.4-8.2 [facility] Comment on above: Performed By: #### L 500.4050, L100.0100 #### [facility] [address] [place], [address] Urea nitrogen [Mass/Vol] 10 mg/dL Normal 7-18 [facility] Comment on above: Performed By: #### L 500.4050, L100.0100 #### [facility] [address] [place], [address] Emergency Department Summary on 07-14-2024 Emergency Department Summary [facility] Medical Records Department [address] [place] [address] Emergency Department Summary 07/14/24 MR#: [id number] Acct: [id number] Name: VANESSA HERNANDEZ Nitza Rep #: [id number] : 1945 79 From: Jose Antonio Marte MD PCP: Dr. Moon Rayo MD Status:REG ER Location: ED HPI History of Present Illness Chief Complaint: General Illness Detail of Chief Complaint: Nausea, vomiting diarrhea since yesterday. Informant: patient Onset/Context/Timing Onset: Today and Yesterday Context: Gradual Onset Timing: Continuous Current Severity: Mild Maximum Severity: Mild Narrative Narrative: 79-year-old female lives alone at home. Started having nausea, vomiting and diarrhea yesterday. Really no significant abdominal pain other than cramping with diarrhea. No dysuria. Today she is able to hold down some fluids. Still feels nauseated. Prior cholecystectomy, appendectomy and hysterectomy. Prior similar symptoms: Yes Recent Illness/Hospitalizatio n: No PFSH PFSH Medical History Urinary incontinence Right hip pain Microcytic anemia Anxiety Rheumatoid arthritis Non-smoker Migraines TIA (transient ischemic attack) Stroke/cerebrovascular accident Generalized weakness Hypokalemia Abdominal pain Asthma DDD (degenerative disc disease) Obesity Frequent falls Essential (primary) hypertension Overactive bladder Chronic back pain Insomnia Hyperlipidemia Depression Osteoarthritis of left knee Iron deficiency anemia Localized swelling of chest wall Confusion Dark stools Left-sided chest wall pain Vitamin D deficiency Vision problems Pneumonia Osteoarthritis Neuropathy IBS (irritable bowel syndrome) Chronic headaches GERD (gastroesophageal reflux disease) H/O emotional problems Chronic bronchitis Home Medications ???Medication ???Instructions ???Recorded ???Last Taken ???Type cholecalciferol (vitamin D3) 50 4,000 unit PO DAILY SUPPLEMENT 09/10/19 09/24/20 History mcg (2,000 unit) capsule biotin 2,500 mcg capsule 1 cap PO DAILY supplement 09/24/20 09/24/20 History multivitamin with minerals 1 tab PO DAILY supplement 09/24/20 09/24/20 History side rails for bed #1 ea 07/15/22 Unknown Rx walker (Ultra-Light Rollator misc) #1 ea 08/23/22 Unknown Rx aspirin 81 mg chewable tablet 81 mg PO BREAKFAST #0 tabs 09/28/23 Unknown Rx atorvastatin 40 mg tablet 40 mg PO QHS #90 tabs 10/21/23 Unknown Rx clopidogrel 75 mg tablet 75 mg PO DAILY #90 tabs 10/21/23 Unknown Rx ropinirole 0.5 mg tablet 0.5 mg PO QHS restless legs #90 10/21/23 Unknown Rx tabs sertraline 100 mg tablet 200 mg (2 x 100 mg) PO DAILY mood 10/21/23 Unknown Rx #180 tabs sumatriptan succinate 25 mg tablet See Rx Instructions PO .COMPLEX 11/21/23 Unknown Rx #14 tabs omeprazole 40 mg capsule,delayed 40 mg PO DAILY stomach #90 caps 01/13/24 Unknown Rx release sumatriptan succinate 6 mg/0.5 mL 6 mg (0.5 mL) subcut Q1-4H PRN 02/13/24 Unknown Rx subcutaneous pen injector (Imitrex migraine headache #1 mL STATdose Pen) trazodone 50 mg tablet 25 mg (1/2 x 50 mg) PO DAILY PRN 02/21/24 Unknown Rx insomnia #10 tabs gabapentin 100 mg capsule 100 mg PO Q12H neuropathy #180 caps 05/11/24 Unknown Rx ferrous sulfate 137 mg (45 mg 137 mg PO QDAY #90 tabs 05/21/24 Unknown Rx iron) tablet,extended release (Slow Fe) iron bisglycinate chelate 28 mg PO QDAY #90 caps 05/21/24 Unknown Rx vibegron 75 mg tablet (Gemtesa) 75 mg PO QDAY 05/21/24 Unknown History potassium chloride 20 mEq 20 meq PO QDAY #90 tabs 06/18/24 Unknown Rx tablet,extended release(part/cryst) (Klor-Con M) ondansetron 4 mg disintegrating 4 mg PO Q6H PRN nausea and 07/14/24 Unknown Rx tablet vomiting #7 tabs Allergy/AdvReac Type Severity Reaction Status Date / Time adhesive tape Allergy Severe Area Sore Verified 07/14/24 16:32 cefpodoxime (From Vantin) Allergy Unknown Unknown Verified 07/14/24 16:32 codeine Allergy Unknown Unknown Verified 07/14/24 16:32 metronidazole (From Flagyl) Allergy Unknown Unknown Verified 07/14/24 16:32 sulfamethoxazole (From Allergy Unknown Unknown Verified 07/14/24 16:32 Bactrim) trimethoprim (From Bactrim) Allergy Unknown Unknown Verified 07/14/24 16:32 Sulfa (Sulfonamide Allergy Unknown Verified 07/14/24 16:32 Antibiotics) Family History Sister Anesthesia complication Breast cancer Hypertension Cancer Thyroid, rectal, kidney Thyroid disorder Diabetes Mother Arthritis Pancreatic cancer Depression Diabetes Father Colon cancer Hypertension CVA (cerebral vascular accident) Sister Cancer rectal/kidney/medullar y Thyroid cancer Surgical History Hist (more content not included)... Normal [facility] CBC W/Diff, Automatedon 11-0 -2023 Absolute Lymph 1.81 X10 3/uL Normal 0.83-4.51 [facility] Comment on above: Performed By: #### L 503.6030, L501.9520, L503.0105, L500.4100, L501.5200, L506.1000, L500.4050, L100.0100 #### [facility] [address] [place], [address] Absolute Neut 7.8 X10 3/uL High 2.0-7.7 [facility] Comment on above: Performed By: #### L 503.6030, L501.9520, L503.0105, L500.4100, L501.5200, L506.1000, L500.4050, L100.0100 #### [facility] [address] [place], [address] Basophils/100 WBC (Bld) 0.2 % Normal 0-1 [facility] Comment on above: Performed By: #### L 503.6030, L501.9520, L503.0105, L500.4100, L501.5200, L506.1000, L500.4050, L100.0100 #### [facility] [address] [place], [address] Eosinophils/100 WBC (Bld) 1.7 % Normal 0-5 [facility] Comment on above: Performed By: #### L 503.6030, L501.9520, L503.0105, L500.4100, L501.5200, L506.1000, L500.4050, L100.0100 #### [facility] [address] [place], [address] Erythrocyte distribution width (RBC) [Ratio] 19.0 % High 11.6-14.6 [facility] Comment on above: Performed By: #### L 503.6030, L501.9520, L503.0105, L500.4100, L501.5200, L506.1000, L500.4050, L100.0100 #### [facility] [address] [place], [address] Hematocrit (Bld) [Volume fraction] 37.5 % Normal 37-47 [facility] Comment on above: Performed By: #### L 503.6030, L501.9520, L503.0105, L500.4100, L501.5200, L506.1000, L500.4050, L100.0100 #### [facility] [address] [place], [address] Hemoglobin (Bld) [Mass/Vol] 10.8 g/dL Low 12.0-15.0 [facility] Comment on above: Performed By: #### L 503.6030, L501.9520, L503.0105, L500.4100, L501.5200, L506.1000, L500.4050, L100.0100 #### [facility] [address] [place], [address] IG% 0.600 Normal 0.0-0.9 [facility] Comment on above: Result Comment: IG% - Immature Granulocytes (promyelocytes, myelocytes and metamyelocytes) > 1% indicates that a LEFT SHIFT is Present. Performed By: #### L 503.6030, L501.9520, L503.0105, L500.4100, L501.5200, L506.1000, L500.4050, L100.0100 #### [facility] [address] [place], [address] Lymphocytes/100 WBC (Bld) 16.4 % Low 19-41 [facility] Comment on above: Performed By: #### L 503.6030, L501.9520, L503.0105, L500.4100, L501.5200, L506.1000, L500.4050, L100.0100 #### [facility] [address] [facility] [place], [address] MCH (RBC) [Entitic mass] 22.6 pg Low 27.0-32.0 [facility] Comment on above: Performed By: #### L 503.6030, L501.9520, L503.0105, L500.4100, L501.5200, L506.1000, L500.4050, L100.0100 #### [facility] [address] [place], [address] MCHC (RBC) [Mass/Vol] 28.8 g/dL Low 32-36 [facility] Comment on above: Performed By: #### L 503.6030, L501.9520, L503.0105, L500.4100, L501.5200, L506.1000, L500.4050, L100.0100 #### [facility] [address] [place], [address] MCV (RBC) [Entitic vol] 78.6 fL Low 81-99 [facility] Comment on above: Performed By: #### L 503.6030, L501.9520, L503.0105, L500.4100, L501.5200, L506.1000, L500.4050, L100.0100 #### [facility] [address] [place], [address] Monocytes/100 WBC (Bld) 10.3 % High 0-10 [facility] Comment on above: Performed By: #### L 503.6030, L501.9520, L503.0105, L500.4100, L501.5200, L506.1000, L500.4050, L100.0100 #### [facility] [address] [place], [address] Neutrophils/100 WBC (Bld) 70.8 % High 47-70 [facility] Comment on above: Performed By: #### L 503.6030, L501.9520, L503.0105, L500.4100, L501.5200, L506.1000, L500.4050, L100.0100 #### [facility] [address] [place], [address] Nucleated RBC (Bld) [#/Vol] 0 10*3/uL Normal 0-5 [facility] Comment on above: Performed By: #### L 503.6030, L501.9520, L503.0105, L500.4100, L501.5200, L506.1000, L500.4050, L100.0100 #### [facility] [address] [place], [address] Platelet mean volume (Bld) [Entitic vol] 9.7 fL Normal 6.2-12.0 [facility] Comment on above: Performed By: #### L 503.6030, L501.9520, L503.0105, L500.4100, L501.5200, L506.1000, L500.4050, L100.0100 #### [facility] [address] [place], [address] Platelets (Bld) [#/Vol] 322 10*3/uL Normal 150-450 [facility] Comment on above: Performed By: #### L 503.6030, L501.9520, L503.0105, L500.4100, L501.5200, L506.1000, L500.4050, L100.0100 #### [facility] [address] [place], [address] RBC (Bld) [#/Vol] 4.77 10*6/uL Normal 4.2-5.4 [facility] Comment on above: Performed By: #### L 503.6030, L501.9520, L503.0105, L500.4100, L501.5200, L506.1000, L500.4050, L100.0100 #### [facility] [address] [place], [address] RDW SD 53.4 fl High 35.1-43.9 [facility] Comment on above: Performed By: #### L 503.6030, L501.9520, L503.0105, L500.4100, L501.5200, L506.1000, L500.4050, L100.0100 #### [facility] [address] [place], [place], [id number] (291) WBC (Bld) [#/Vol] 11.1 10*3/uL High 4.4-11.0 [facility] Comment on above: Performed By: #### L 503.6030, L501.9520, L503.0105, L500.4100, L501.5200, L506.1000, L500.4050, L100.0100 #### [facility] [address] [place], [place], [id number] Comprehensive Metabolic Prof ilon 05-28-2024 Albumin [Mass/Vol] 3.5 g/dL Normal 3.2-5.0 [facility] Comment on above: Performed By: #### L 503.6030, L501.9520, L503.0105, L500.4100, L501.5200, L506.1000, L500.4050, L100.0100 #### [facility] [address] [place], [address] Albumin/Globulin [Mass ratio] 0.9 {ratio} Normal 0.9-2.4 [facility] Comment on above: Performed By: #### L 503.6030, L501.9520, L503.0105, L500.4100, L501.5200, L506.1000, L500.4050, L100.0100 #### [facility] [address] [place], [address] ALK P 115 U/L Normal 45-117 [facility] Comment on above: Performed By: #### L 503.6030, L501.9520, L503.0105, L500.4100, L501.5200, L506.1000, L500.4050, L100.0100 #### [facility] [address] [place], [address] ALT [Catalytic activity/Vol] 46 U/L Normal 13-56 [facility] Comment on above: Performed By: #### L 503.6030, L501.9520, L503.0105, L500.4100, L501.5200, L506.1000, L500.4050, L100.0100 #### [facility] [address] [place], [address] AST [Catalytic activity/Vol] 37 U/L Normal 15-37 [facility] Comment on above: Performed By: #### L 503.6030, L501.9520, L503.0105, L500.4100, L501.5200, L506.1000, L500.4050, L100.0100 #### [facility] [address] [place], [address] Bilirubin [Mass/Vol] 0.30 mg/dL Normal 0.20-1.00 [facility] Comment on above: Result Comment: For patients on eltrombopag therapy, use of Dimension Leonardo TBIL is not recommended. Performed By: #### L 503.6030, L501.9520, L503.0105, L500.4100, L501.5200, L506.1000, L500.4050, L100.0100 #### [facility] [address] [place], [address] BUN/CRE 27.8 RATIO High 10-20 [facility] Comment on above: Performed By: #### L 503.6030, L501.9520, L503.0105, L500.4100, L501.5200, L506.1000, L500.4050, L100.0100 #### [facility] [address] [place], [address] CA,Total 9.1 mg/dL Normal 8.5-10.1 [facility] Comment on above: Performed By: #### L 503.6030, L501.9520, L503.0105, L500.4100, L501.5200, L506.1000, L500.4050, L100.0100 #### [facility] [address] [place], [address] Chloride [Moles/Vol] 107 mmol/L Normal 98-107 [facility] Comment on above: Performed By: #### L 503.6030, L501.9520, L503.0105, L500.4100, L501.5200, L506.1000, L500.4050, L100.0100 #### [facility] [address] [place], [address] CO2 [Moles/Vol] 26.0 mmol/L Normal 21.0-32.0 [facility] Comment on above: Performed By: #### L 503.6030, L501.9520, L503.0105, L500.4100, L501.5200, L506.1000, L500.4050, L100.0100 #### [facility] [address] [place], [address] Creatinine [Mass/Vol] 0.68 mg/dL Normal 0.55-1.02 [facility] Comment on above: Result Comment: The validity of the calculated GFR GFRAA in patients over 70 years has not been determined. Clinical correlation is essential. Performed By: #### L 503.6030, L501.9520, L503.0105, L500.4100, L501.5200, L506.1000, L500.4050, L100.0100 #### [facility] [address] [place], [address] EST GFR - AA 107 mL/min Normal >60 [facility] Comment on above: Result Comment: Afri can Burmese GFR Calc Performed By: #### L 503.6030, L501.9520, L503.0105, L500.4100, L501.5200, L506.1000, L500.4050, L100.0100 #### [facility] [address] [place], [address] GAP 8 Normal 5-15 [facility] Comment on above: Performed By: #### L 503.6030, L501.9520, L503.0105, L500.4100, L501.5200, L506.1000, L500.4050, L100.0100 #### [facility] [address] [place], [address] GFR/1.73 sq M.predicted among non-blacks MDRD (S/P/Bld) [Vol rate/Area] 88 mL/min/{1.73_m2} Normal >60 [facility] Comment on above: Result Comment: Non- GFR Calc Performed By: #### L 503.6030, L501.9520, L503.0105, L500.4100, L501.5200, L506.1000, L500.4050, L100.0100 #### [facility] [address] [place], [address] Globulin (S) [Mass/Vol] 3.8 g/dL Normal 2.2-4.2 [facility] Comment on above: Performed By: #### L 503.6030, L501.9520, L503.0105, L500.4100, L501.5200, L506.1000, L500.4050, L100.0100 #### [facility] [address] [place], [address] Glucose [Mass/Vol] 112 mg/dL High 74-106 [facility] Comment on above: Result Comment: Fast ing Glucose result from 100 to 125 mg/dL suggests IMPAIRED HOMEOSTASIS per A.D.A. criteria. Performed By: #### L 503.6030, L501.9520, L503.0105, L500.4100, L501.5200, L506.1000, L500.4050, L100.0100 #### [facility] [address] [place], [address] Potassium [Moles/Vol] 3.7 mmol/L Normal 3.5-5.1 [facility] Comment on above: Performed By: #### L 503.6030, L501.9520, L503.0105, L500.4100, L501.5200, L506.1000, L500.4050, L100.0100 #### [facility] [address] [place], [address] Sodium [Moles/Vol] 142 mmol/L Normal 136-145 [facility] Comment on above: Performed By: #### L 503.6030, L501.9520, L503.0105, L500.4100, L501.5200, L506.1000, L500.4050, L100.0100 #### [facility] [address] [place], [address] T PROT 7.3 g/dL Normal 6.4-8.2 [facility] Comment on above: Performed By: #### L 503.6030, L501.9520, L503.0105, L500.4100, L501.5200, L506.1000, L500.4050, L100.0100 #### [facility] [address] [place], [address] Urea nitrogen [Mass/Vol] 19 mg/dL High 7-18 [facility] Comment on above: Performed By: #### L 503.6030, L501.9520, L503.0105, L500.4100, L501.5200, L506.1000, L500.4050, L100.0100 #### [facility] [address] [place], [address] Iron+Iron Binding Capacityon 05-28-2024 Iron [Mass/Vol] 22 ug/dL Low 50-170 [facility] Comment on above: Performed By: #### L 500.4050, L100.0100 #### [facility] [address] [place], [address] IRON SATURATION 4.9 Low 15.0-55.0 [facility] Comment on above: Performed By: #### L 500.4050, L100.0100 #### [facility] [address] [place], [address] TIBC 449 ug/dL Normal 250-450 [facility] Comment on above: Performed By: #### L 500.4050, L100.0100 #### [facility] [address] [place], [address] Lipid Profileon 05-28-2024 Cholesterol [Mass/Vol] 144 mg/dL Normal 200 [facility] Comment on above: Result Comment: <200 mg/dL Desirable 200-240 mg/dL Borderline >240 mg/dL High Risk Performed By: #### L 500.4050, L100.0100 #### [facility] [address] [place], [address] Cholesterol in HDL [Mass/Vol] 57 mg/dL Normal [facility] Comment on above: Result Comment: The drugs N-Acetylcysteine and Metamizole may falsely depress this assay. Reference Range HDL <40 mg/dL Low HDL Cholesterol HDL >or= 60 mg/dL High HDL Cholesterol Performed By: #### L 500.4050, L100.0100 #### [facility] [address] [place], [address] Cholesterol in LDL [Mass/Vol] 59 mg/dL Normal 0-130 [facility] Comment on above: Performed By: #### L 500.4050, L100.0100 #### [facility] [address] [place], [address] Cholesterol in VLDL [Mass/Vol] 28 mg/dL Normal 5-40 [facility] Comment on above: Performed By: #### L 500.4050, L100.0100 #### [facility] [address] [place], [address] Triglyceride [Mass/Vol] 140 mg/dL Normal [facility] Comment on above: Result Comment: The drugs N-Acetylcysteine and Metamizole may falsely depress this assay. Serum Triglycerides Reference Interval Normal <150 mg/dL Borderline high 150 - 199 mg/dL High 200 - 499 mg/dL Very High > or = 500 mg/dL Performed By: #### L 500.4050, L100.0100 #### [facility] [address] [place], [address] Magnesiumon 05-28-2024 Magnesium [Mass/Vol] 2.3 mg/dL Normal 1.6-2.6 [facility] Comment on above: Performed By: #### L 500.4050, L100.0100 #### [facility] [address] [place], [address] Thyroid Stim Hormone (TSH)on 05-28-2024 TSH 2.770 uIU/mL Normal 0.358-3.740 [facility] Comment on above: Performed By: #### L 500.4050, L100.0100 #### [facility] [address] [place], [address] Vitamin B12on 05-28-2024 Cobalamin (Vitamin B12) [Mass/Vol] 293 pg/mL Normal 211-911 [facility] Comment on above: Performed By: #### L 503.6030, L501.9520, L503.0105, L500.4100, L501.5200, L506.1000, L500.4050, L100.0100 #### [facility] [address] [place], [address] Vitamin D,25 Hydroxyon 05-28 Vitamin D 25-OH 13.1 ng/mL Normal [facility] Comment on above: Result Comment: Livia min D 25(OH) Status Range Deficiency <20 ng/mL (50nmol/L) Insufficiency 20 - 30 ng/mL (50 - 75 nmol/L) Sufficiency 30 - 100 ng/mL (75 - 250 nmol/L) Toxicity >100 ng/mL (>250 nmol/L) Performed By: #### L 503.6030, L501.9520, L503.0105, L500.4100, L501.5200, L506.1000, L500.4050, L100.0100 #### [facility] [address] [place], [address] ESRon 10-25-2023 Erythrocyte Sed Rate 72 mm/hr High 0-30 [facility] ([place]) Comment on above: Performed By: #### E SR #### [address] [address] LABORATORYOrdered By: Chito Rao on 10-25-2023 ESR Photometric method (Bld) [Velocity] 72 mm/hr High 0 - 30 mm/hr AO Man Heme SS Absolute lymphocyte countOrd ered By: Moon Rayo on 10-24-2023 Lymphocytes Auto (Unsp spec) [#/Vol] 1.62 10*3/uL 0.83-4.51 [facility] Automated lymphocyte count a s percentage of total leukocytesOrdered By: Moon Rayo on 10-24-2023 Lymphocytes/100 WBC Auto (Unsp spec) 12.4 % 19-41 [facility] Basophil percentageOrdered B y: Moon Rayo on 10-24-2023 Basophil percentage 11.3 g/dL 12.0-15.0 [facility] Basophil percentage 86 mg/dL 74-106 [facility] Basophil percentage 138 mmol/L 136-145 [facility] Basophil percentage 3.4 mmol/L 3.5-5.1 [facility] Basophil percentage 104 mmol/L 98-107 [facility] Basophils (Bld) [#/Vol] 13.1 10*3/uL 4.4-11.0 [facility] Basophils (Bld) [#/Vol] 9.8 10*3/uL 2.0-7.7 [facility] Basophils/100 WBC (Bld) 74.4 % 47-70 [facility] Basophils/100 WBC (Bld) 11.3 % 0-10 [facility] Basophils/100 WBC (Bld) 1.0 % 0-5 [facility] Basophils/100 WBC (Bld) 0.4 % 0-1 [facility] Determination of erythrocyte mean corpuscular volume (MCV)Ordered By: Moon Rayo on 10-24-2023 MCV (RBC) [Entitic vol] 78.1 fL 81-99 [facility] Erythrocyte distribution wid th ratioOrdered By: Moon Rayo on 10-24-2023 Erythrocyte distribution width (RBC) [Ratio] 19.1 % 11.6-14.6 [facility] Erythrocyte distribution wid th standard deviationOrdered By: Moon Rayo on 10-24-2023 Erythrocyte distribution width (RBC) [Entitic vol] 53.7 fL 35.1-43.9 [facility] Erythrocyte sedimentation ra teOrdered By: Moon Rayo on 10-24-2023 ESR (Bld) [Velocity] 72 mm/h 0-30 [facility] Hematocrit Auto (Bld) [Volum e fraction]Ordered By: Moon Rayo on 10-24-2023 Hematocrit (Bld) [Volume fraction] 38.8 % 37-47 [facility] Immature granulocytes/100 WB C Auto (Bld)Ordered By: Moon Rayo on 10-24-2023 Immature granulocytes/100 WBC (Bld) 0.500 % 0.0-0.9 [facility] No Panel InformationOrdered By: Moon Rayo on 10-24-2023 22.7 pg 27.0-32.0 [facility] 29.1 g/dL 32-36 [facility] 319 K/mm3 150-450 [facility] 9.4 fl 6.2-12.0 [facility] 0 % 0-5 [facility] 74 mL/min >60 [facility] 90 mL/min >60 [facility] 13.9 RATIO 10-20 [facility] 28.0 mmol/L 21.0-32.0 [facility] 50.30 mg/L 0.0-3.0 [facility] RBC Auto (Bld) [#/Vol]Ordere d By: Moon Rayo on 10-24-2023 RBC (Bld) [#/Vol] 4.97 10*6/uL 4.2-5.4 [facility] Serum or plasma calcium gustavo urement (mass/volume)Ordered By: Moon Rayo on 10-24-2023 Calcium [Mass/Vol] 9.2 mg/dL 8.5-10.1 [facility] Serum or plasma creatinine m easurement (mass/volume)Ordered By: Moon Rayo on 10-24-2023 Creatinine [Mass/Vol] 0.79 mg/dL 0.55-1.02 [facility] Serum or plasma urea nitroge n measurement (mass/volume)Ordered By: Moon Rayo on 10-24-2023 Urea nitrogen [Mass/Vol] 11 mg/dL 7-18 [facility] Serum or plasma uric acid me asurement (mass/volume)Ordered By: Moon Rayo on 10-24-2023 Urate [Mass/Vol] 4.6 mg/dL 2.6-6.0 [facility] Thin prep Papanicolaou smear with manual screeningOrdered By: Moon Rayo on 10-24-2023 Thin prep Papanicolaou smear with manual screening 6 5-15 [facility] Basophil percentageOrdered B y: Bhavna Andino on 10-03-2023 Basophil percentage 9.9 g/dL 12.0-15.0 [facility] Basophil percentage 87 mg/dL 74-106 [facility] Basophil percentage 101 mg/dL <200 [facility] Basophil percentage 107 mg/dL <199 [facility] Basophil percentage 143 mmol/L 136-145 [facility] Basophil percentage 3.5 mmol/L 3.5-5.1 [facility] Basophil percentage 109 mmol/L 98-107 [facility] Basophils (Bld) [#/Vol] 7.8 10*3/uL 4.4-11.0 [facility] Determination of erythrocyte mean corpuscular volume (MCV)Ordered By: Bhavna Andino on 10-03-2023 MCV (RBC) [Entitic vol] 79.4 fL 81-99 [facility] Erythrocyte distribution wid th ratioOrdered By: Bhavna Andino on 10-03-2023 Erythrocyte distribution width (RBC) [Ratio] 18.6 % 11.6-14.6 [facility] Erythrocyte distribution wid th standard deviationOrdered By: Bhavna Andino on 10-03-2023 Erythrocyte distribution width (RBC) [Entitic vol] 53.4 fL 35.1-43.9 [facility] Hematocrit Auto (Bld) [Volum e fraction]Ordered By: Bhavna Andino on 10-03-2023 Hematocrit (Bld) [Volume fraction] 34.4 % 37-47 [facility] No Panel InformationOrdered By: Bhavna Andino on 10-03-2023 22.9 pg 27.0-32.0 [facility] 28.8 g/dL 32-36 [facility] 340 K/mm3 150-450 [facility] 9.0 fl 6.2-12.0 [facility] 85 mL/min >60 [facility] 103 mL/min >60 [facility] 15.6 RATIO 10-20 [facility] 2.1 mg/dL 1.6-2.6 [facility] 28.0 mmol/L 21.0-32.0 [facility] 33 mg/dL >40 [facility] 47 mg/dL 0-130 [facility] 21 mg/dL 5-40 [facility] RBC Auto (Bld) [#/Vol]Ordere d By: Bhavna Andino on 10-03-2023 RBC (Bld) [#/Vol] 4.33 10*6/uL 4.2-5.4 [facility] Serum or plasma calcium gustavo urement (mass/volume)Ordered By: Bhavna Andino on 10-03-2023 Calcium [Mass/Vol] 8.9 mg/dL 8.5-10.1 [facility] Serum or plasma creatinine m easurement (mass/volume)Ordered By: Bhavna Andino on 10-03-2023 Creatinine [Mass/Vol] 0.70 mg/dL 0.55-1.02 [facility] Serum or plasma urea nitroge n measurement (mass/volume)Ordered By: Bhavna Andino on 10-03-2023 Urea nitrogen [Mass/Vol] 11 mg/dL 7-18 [facility] Thin prep Papanicolaou smear with manual screeningOrdered By: Bhavna Andino on 10-03-2023 Thin prep Papanicolaou smear with manual screening 6 5-15 [facility] Absolute lymphocyte countOrd ered By: Bhavna Andino on 09-29-2023 Lymphocytes Auto (Unsp spec) [#/Vol] 1.67 10*3/uL 0.83-4.51 [facility] Automated lymphocyte count a s percentage of total leukocytesOrdered By: Bhavna Andino on 09-29-2023 Lymphocytes/100 WBC Auto (Unsp spec) 18.8 % 19-41 [facility] Basophil percentageOrdered B y: Bhavna Andino on 09-29-2023 Basophil percentage 9.9 g/dL 12.0-15.0 [facility] Basophil percentage 99 mg/dL 74-106 [facility] Basophil percentage 143 mmol/L 136-145 [facility] Basophil percentage 3.2 mmol/L 3.5-5.1 [facility] Basophil percentage 106 mmol/L 98-107 [facility] Basophils (Bld) [#/Vol] 8.9 10*3/uL 4.4-11.0 [facility] Basophils (Bld) [#/Vol] 6.0 10*3/uL 2.0-7.7 [facility] Basophils/100 WBC (Bld) 67.6 % 47-70 [facility] Basophils/100 WBC (Bld) 9.8 % 0-10 [facility] Basophils/100 WBC (Bld) 3.2 % 0-5 [facility] Basophils/100 WBC (Bld) 0.1 % 0-1 [facility] Determination of erythrocyte mean corpuscular volume (MCV)Ordered By: Bhavna Andino on 09-29-2023 MCV (RBC) [Entitic vol] 78.5 fL 81-99 [facility] Erythrocyte distribution wid th ratioOrdered By: Bhavna Andino on 09-29-2023 Erythrocyte distribution width (RBC) [Ratio] 18.5 % 11.6-14.6 [facility] Erythrocyte distribution wid th standard deviationOrdered By: Bhavna Andino on 09-29-2023 Erythrocyte distribution width (RBC) [Entitic vol] 52.2 fL 35.1-43.9 [facility] Hematocrit Auto (Bld) [Volum e fraction]Ordered By: Bhavna Andino on 09-29-2023 Hematocrit (Bld) [Volume fraction] 32.9 % 37-47 [facility] Immature granulocytes/100 WB C Auto (Bld)Ordered By: Bhavna Andino on 09-29-2023 Immature granulocytes/100 WBC (Bld) 0.500 % 0.0-0.9 [facility] No Panel InformationOrdered By: Bhavna Andino on 09-29-2023 23.6 pg 27.0-32.0 [facility] 30.1 g/dL 32-36 [facility] 302 K/mm3 150-450 [facility] 9.5 fl 6.2-12.0 [facility] 0 % 0-5 [facility] 83 mL/min >60 [facility] 101 mL/min >60 [facility] 20.8 RATIO 10-20 [facility] 2.1 mg/dL 1.6-2.6 [facility] 28.0 mmol/L 21.0-32.0 [facility] 198 pg/mL 211-911 [facility] 20.9 ng/mL [facility] RBC Auto (Bld) [#/Vol]Ordere d By: Bhavna Andino on 09-29-2023 RBC (Bld) [#/Vol] 4.19 10*6/uL 4.2-5.4 [facility] Serum or plasma calcium gustavo urement (mass/volume)Ordered By: Bhavna Andino on 09-29-2023 Calcium [Mass/Vol] 9.2 mg/dL 8.5-10.1 [facility] Serum or plasma creatinine m easurement (mass/volume)Ordered By: Bhavna Andino on 09-29-2023 Creatinine [Mass/Vol] 0.72 mg/dL 0.55-1.02 [facility] Serum or plasma urea nitroge n measurement (mass/volume)Ordered By: Bhavna Andino on 09-29-2023 Urea nitrogen [Mass/Vol] 15 mg/dL 7-18 [facility] Thin prep Papanicolaou smear with manual screeningOrdered By: Bhavna Andino on 09-29-2023 Thin prep Papanicolaou smear with manual screening 9 5-15 [facility] Whole blood hemoglobin A1c/t otal hemoglobin ratio (mass fraction)Ordered By: Bhavna Andino on 09-29-2023 HbA1c (Bld) [Mass fraction] 5.8 % 3.8-5.6 [facility] Absolute lymphocyte countOrd ered By: Mona Chery on 09-27-2023 Lymphocytes Auto (Unsp spec) [#/Vol] 2.00 10*3/uL 0.83-4.51 [facility] Automated lymphocyte count a s percentage of total leukocytesOrdered By: Mona Chery on 09-27-2023 Lymphocytes/100 WBC Auto (Unsp spec) 20.9 % 19-41 [facility] Basophil percentageOrdered B y: Mona Chery on 09-27-2023 Basophil percentage 10.0 g/dL 12.0-15.0 [facility] Basophil percentage 99 mg/dL 74-106 [facility] Basophil percentage 6.6 g/dL 6.4-8.2 [facility] Basophil percentage 3.4 mg/dL 2.5-4.9 [facility] Basophil percentage 0.60 mg/dL 0.20-1.00 [facility] Basophil percentage 116 mg/dL <200 [facility] Basophil percentage 108 mg/dL <199 [facility] Basophil percentage 138 mmol/L 136-145 [facility] Basophil percentage 3.5 mmol/L 3.5-5.1 [facility] Basophil percentage 105 mmol/L 98-107 [facility] Basophils (Bld) [#/Vol] 9.6 10*3/uL 4.4-11.0 [facility] Basophils (Bld) [#/Vol] 6.2 10*3/uL 2.0-7.7 [facility] Basophils/100 WBC (Bld) 64.8 % 47-70 [facility] Basophils/100 WBC (Bld) 9.8 % 0-10 [facility] Basophils/100 WBC (Bld) 3.8 % 0-5 [facility] Basophils/100 WBC (Bld) 0.3 % 0-1 [facility] Determination of erythrocyte mean corpuscular volume (MCV)Ordered By: Mona Chery on 09-27-2023 MCV (RBC) [Entitic vol] 77.8 fL 81-99 [facility] Erythrocyte distribution wid th ratioOrdered By: Mona Chery on 09-27-2023 Erythrocyte distribution width (RBC) [Ratio] 18.5 % 11.6-14.6 [facility] Erythrocyte distribution wid th standard deviationOrdered By: Mona Chery on 09-27-2023 Erythrocyte distribution width (RBC) [Entitic vol] 51.8 fL 35.1-43.9 [facility] Erythrocyte sedimentation ra teOrdered By: Mona Chery on 09-27-2023 ESR (Bld) [Velocity] 34 mm/h 0-30 [facility] Hematocrit Auto (Bld) [Volum e fraction]Ordered By: Mona Chery on 09-27-2023 Hematocrit (Bld) [Volume fraction] 33.9 % 37-47 [facility] Immature granulocytes/100 WB C Auto (Bld)Ordered By: Mona Chery on 09-27-2023 Immature granulocytes/100 WBC (Bld) 0.400 % 0.0-0.9 [facility] Iron measurement (mass/mass) Ordered By: Mona Chery on 09-27-2023 Iron (Unsp spec) [Mass/Mass] 25 ug/dL 50-170 [facility] No Panel InformationOrdered By: Mona Chery on 09-27-2023 22.9 pg 27.0-32.0 [facility] 29.5 g/dL 32-36 [facility] 291 K/mm3 150-450 [facility] 9.0 fl 6.2-12.0 [facility] 0 % 0-5 [facility] 79 mL/min >60 [facility] 95 mL/min >60 [facility] 67.98 ml/min [facility] 17.2 RATIO 10-20 [facility] 3.8 g/dL 2.2-4.2 [facility] 0.7 RATIO 0.9-2.4 [facility] 67 U/L 45-117 [facility] 21 U/L 13-56 [facility] 2.2 mg/dL 1.6-2.6 [facility] 30.0 mmol/L 21.0-32.0 [facility] 38 mg/dL >40 [facility] 56 mg/dL 0-130 [facility] 22 mg/dL 5-40 [facility] 56.70 mg/L 0.0-3.0 [facility] 342 ug/dL 250-450 [facility] 68 ng/mL 8-252 [facility] RBC Auto (Bld) [#/Vol]Ordere d By: Mona Chery on 09-27-2023 RBC (Bld) [#/Vol] 4.36 10*6/uL 4.2-5.4 [facility] Serum or plasma calcium gustavo urement (mass/volume)Ordered By: Mona Chery on 09-27-2023 Calcium [Mass/Vol] 9.2 mg/dL 8.5-10.1 [facility] Serum or plasma creatinine m easurement (mass/volume)Ordered By: Mona Chery on 09-27-2023 Creatinine [Mass/Vol] 0.75 mg/dL 0.55-1.02 [facility] Serum or plasma iron saturat ion measurement (mass fraction)Ordered By: Mona Chery on 09-27-2023 Iron saturation [Mass fraction] 7.3 % 15.0-55.0 [facility] Serum or plasma thyroid stim ulating hormone (TSH) measurement (units/volume)Ordered By: Mona Chery on 09-27-2023 TSH Qn 4.16 uIU/mL 0.358-3.74 [facility] Serum or plasma urea nitroge n measurement (mass/volume)Ordered By: Mona Chery on 09-27-2023 Urea nitrogen [Mass/Vol] 13 mg/dL 7-18 [facility] Thin prep Papanicolaou smear with manual screeningOrdered By: Mona Chery on 09-27-2023 Thin prep Papanicolaou smear with manual screening 2.8 g/dL 3.2-5.0 [facility] Thin prep Papanicolaou smear with manual screening 20 U/L 15-37 [facility] Thin prep Papanicolaou smear with manual screening 3 5-15 [facility] Whole blood hemoglobin A1c/t otal hemoglobin ratio (mass fraction)Ordered By: Mona Chery on 09-27-2023 HbA1c (Bld) [Mass fraction] 6.0 % 3.8-5.6 [facility] Absolute lymphocyte countOrd ered By: Joshua Santiago on 09-26-2023 Lymphocytes Auto (Unsp spec) [#/Vol] 1.66 10*3/uL 0.83-4.51 [facility] Activated partial thrombopla stin time (aPTT) in platelet poor plasma by coagulation aOrdered By: Joshua Santiago on 09-26-2023 aPTT Coag (PPP) [Time] 35.8 s 24.1-36.2 [facility] Automated lymphocyte count a s percentage of total leukocytesOrdered By: Joshua Santiago on 09-26-2023 Lymphocytes/100 WBC Auto (Unsp spec) 12.2 % 19-41 [facility] Basophil percentageOrdered B y: Joshua Santiago on 09-26-2023 Basophil percentage 11.3 g/dL 12.0-15.0 [facility] Basophil percentage 111 mg/dL 74-106 [facility] Basophil percentage 137 mmol/L 136-145 [facility] Basophil percentage 3.1 mmol/L 3.5-5.1 [facility] Basophil percentage 101 mmol/L 98-107 [facility] Basophils (Bld) [#/Vol] 13.6 10*3/uL 4.4-11.0 [facility] Basophils (Bld) [#/Vol] 10.1 10*3/uL 2.0-7.7 [facility] Basophils/100 WBC (Bld) 74.3 % 47-70 [facility] Basophils/100 WBC (Bld) 10.3 % 0-10 [facility] Basophils/100 WBC (Bld) 2.1 % 0-5 [facility] Basophils/100 WBC (Bld) 0.4 % 0-1 [facility] Determination of erythrocyte mean corpuscular volume (MCV)Ordered By: Joshua Santiago on 09-26-2023 MCV (RBC) [Entitic vol] 77.9 fL 81-99 [facility] Erythrocyte distribution wid th ratioOrdered By: Joshua Santiago on 09-26-2023 Erythrocyte distribution width (RBC) [Ratio] 18.6 % 11.6-14.6 [facility] Erythrocyte distribution wid th standard deviationOrdered By: Joshua Santiago on 09-26-2023 Erythrocyte distribution width (RBC) [Entitic vol] 51.7 fL 35.1-43.9 [facility] Hematocrit Auto (Bld) [Volum e fraction]Ordered By: Joshua Santiago on 09-26-2023 Hematocrit (Bld) [Volume fraction] 38.1 % 37-47 [facility] Immature granulocytes/100 WB C Auto (Bld)Ordered By: Joshua Santiago on 09-26-2023 Immature granulocytes/100 WBC (Bld) 0.700 % 0.0-0.9 [facility] No Panel InformationOrdered By: Joshua Santiago on 09-26-2023 23.1 pg 27.0-32.0 [facility] 29.7 g/dL 32-36 [facility] 333 K/mm3 150-450 [facility] 9.2 fl 6.2-12.0 [facility] 0 % 0-5 [facility] 14.8 SECONDS 11.7-14.9 [facility] 1.2 [facility] 66 mL/min >60 [facility] 80 mL/min >60 [facility] 61.25 ml/min [facility] 22.8 RATIO 10-20 [facility] 8 pg/mL 3.0-54.0 [facility] 31.0 mmol/L 21.0-32.0 [facility] RBC Auto (Bld) [#/Vol]Ordere d By: Joshua Santiago on 09-26-2023 RBC (Bld) [#/Vol] 4.89 10*6/uL 4.2-5.4 [facility] Serum or plasma calcium gustavo urement (mass/volume)Ordered By: Joshua Santiago on 09-26-2023 Calcium [Mass/Vol] 9.4 mg/dL 8.5-10.1 [facility] Serum or plasma creatinine m easurement (mass/volume)Ordered By: Joshua Santiago on 09-26-2023 Creatinine [Mass/Vol] 0.88 mg/dL 0.55-1.02 [facility] Serum or plasma urea nitroge n measurement (mass/volume)Ordered By: Joshuajennifer Santiago on 09-26-2023 Urea nitrogen [Mass/Vol] 20 mg/dL 7-18 [facility] Thin prep Papanicolaou smear with manual screeningOrdered By: Joshua Santiago on 09-26-2023 Thin prep Papanicolaou smear with manual screening 5 5-15 [facility] Absolute lymphocyte countOrd ered By: Dilia Best on 08-16-2023 Lymphocytes Auto (Unsp spec) [#/Vol] 1.78 10*3/uL 0.83-4.51 [facility] Automated lymphocyte count a s percentage of total leukocytesOrdered By: Dilia Best on 08-16-2023 Lymphocytes/100 WBC Auto (Unsp spec) 17.2 % 19-41 [facility] Basophil percentageOrdered B y: Dilia Best on 08-16-2023 Basophil percentage 10.2 g/dL 12.0-15.0 [facility] Basophil percentage 104 mg/dL 74-106 [facility] Basophil percentage 138 mmol/L 136-145 [facility] Basophil percentage 4.0 mmol/L 3.5-5.1 [facility] Basophil percentage 107 mmol/L 98-107 [facility] Basophils (Bld) [#/Vol] 10.3 10*3/uL 4.4-11.0 [facility] Basophils (Bld) [#/Vol] 7.1 10*3/uL 2.0-7.7 [facility] Basophils/100 WBC (Bld) 0.4 % 0-1 [facility] Basophils/100 WBC (Bld) 68.3 % 47-70 [facility] Basophils/100 WBC (Bld) 11.5 % 0-10 [facility] Basophils/100 WBC (Bld) 1.9 % 0-5 [facility] Chloride [Moles/Vol] 107 mmol/L 98-107 [facility] Eosinophils/100 WBC (Bld) 1.9 % 0-5 [facility] Glucose [Mass/Vol] 104 mg/dL 74-106 [facility] Comment on above: Fasting Glucose resu lt from 100 to 125 mg/dL suggests IMPAIRED HOMEOSTASIS per A.D.A. criteria. Hemoglobin (Bld) [Mass/Vol] 10.2 g/dL 12.0-15.0 [facility] Monocytes/100 WBC (Bld) 11.5 % 0-10 [facility] Neutrophils (Bld) [#/Vol] 7.1 10*3/uL 2.0-7.7 [facility] Neutrophils/100 WBC (Bld) 68.3 % 47-70 [facility] Potassium [Moles/Vol] 4.0 mmol/L 3.5-5.1 [facility] Sodium [Moles/Vol] 138 mmol/L 136-145 [facility] WBC (Bld) [#/Vol] 10.3 10*3/uL 4.4-11.0 [facility] Determination of erythrocyte mean corpuscular volume (MCV)Ordered By: Dilia Best on 08-16-2023 MCV (RBC) [Entitic vol] 77.9 fL 81-99 [facility] Erythrocyte distribution wid th ratioOrdered By: Dilia Best on 08-16-2023 Erythrocyte distribution width (RBC) [Ratio] 18.5 % 11.6-14.6 [facility] Erythrocyte distribution wid th standard deviationOrdered By: Dilia Best on 08-16-2023 Erythrocyte distribution width (RBC) [Entitic vol] 51.4 fL 35.1-43.9 [facility] Hematocrit Auto (Bld) [Volum e fraction]Ordered By: Dilia Best on 08-16-2023 Hematocrit (Bld) [Volume fraction] 34.8 % 37-47 [facility] Immature granulocytes/100 WB C Auto (Bld)Ordered By: Dilia Best on 08-16-2023 Immature granulocytes/100 WBC (Bld) 0.700 % 0.0-0.9 [facility] Comment on above: IG% - Immature Granu locytes (promyelocytes, myelocytes and metamyelocytes) > 1% indicates that a LEFT SHIFT is Present. Laboratory - Chemistry and C hemistry - challengeOrdered By: Dilia Best on 08-16-2023 CO2 [Moles/Vol] 28.0 mmol/L 21.0-32.0 [facility] Urea nitrogen/Creatinine [Mass ratio] 17.0 mg/mg - [facility] Laboratory - Hematology and Cell countsOrdered By: Dilia Best on 08-16-2023 MCH (RBC) [Entitic mass] 22.8 pg 27.0-32.0 [facility] MCHC (RBC) [Mass/Vol] 29.3 g/dL [facility] Nucleated RBC/100 WBC (Bld) [Ratio] 0 % 0-5 [facility] Platelets (Bld) [#/Vol] 313 10*3/uL 150-450 [facility] No Panel InformationOrdered By: Dilia Best on 08-16-2023 Estimated Creatinine Clearance Calc 48.50 ml/min [facility] Estimated GFR (MDRD) Amer 69 mL/min >60 [facility] Comment on above: GFR Calc Estimated GFR (MDRD) Non-Af Amer 57 mL/min >60 [facility] Comment on above: Non- GFR Calc 22.8 pg 27.0-32.0 [facility] 29.3 g/dL [facility] 313 K/mm3 150-450 [facility] 0 % 0-5 [facility] 57 mL/min >60 [facility] 69 mL/min >60 [facility] 48.50 ml/min [facility] 17.0 RATIO 05-13 [facility] 28.0 mmol/L 21.0-32.0 [facility] Platelet mean volume Ariel-Ec ker (Bld) [Entitic vol]Ordered By: Dilia Best on 08-16-2023 Platelet mean volume (Bld) [Entitic vol] 9.1 fL 6.2-12.0 [facility] RBC Auto (Bld) [#/Vol]Ordere d By: Dilia Best on 08-16-2023 RBC (Bld) [#/Vol] 4.47 10*6/uL 4.2-5.4 [facility] Serum or plasma calcium gustavo urement (mass/volume)Ordered By: Dilia Best on 08-16-2023 Calcium [Mass/Vol] 9.4 mg/dL 8.5-10.1 [facility] Serum or plasma creatinine m easurement (mass/volume)Ordered By: Dilia Best on 08-16-2023 Creatinine [Mass/Vol] 1.00 mg/dL 0.55-1.02 [facility] Comment on above: The validity of the calculated GFR & GFRAA in patients over 70 years has not been determined. Clinical correlation is essential. Serum or plasma urea nitroge n measurement (mass/volume)Ordered By: Dilia Best on 08-16-2023 Urea nitrogen [Mass/Vol] 17 mg/dL 7-18 [facility] Thin prep Papanicolaou smear with manual screeningOrdered By: Dilia Best on 08-16-2023 Thin prep Papanicolaou smear with manual screening 3 5-15 [facility] Serum or plasma trough vanco mycin levelOrdered By: Felipe Cordoba on 08-15-2023 Vancomycin trough [Mass/Vol] 19.4 ug/mL 5.0-15.0 [facility] Comment on above: VANCOMYCIN STANDARED DRUG THERAPY TROUGH LEVEL: 5.0 - 15.0 mg/L VANCOMYCIN HIGH INTENSITY THERAPY TROUGH LEVEL: 15.0 - 20.0 mg/L High Intensity therapy recommended for serious lifethreatening infections include:- Cpvapdtlvh-Exejrpirdbjk-Frwrrirvi (Ventilator/Healtcare Associated)-Sepsis PLEASE CONTACT PHARMACY SERVICES (#2168) FOR INTERPRETATIONOF RESULTS. Basophil percentageOrdered B y: Felipe Cordoba on 08-14-2023 Basophil percentage 3.2 mg/dL 2.5-4.9 [facility] Basophil percentage 6.6 g/dL 6.4-8.2 [facility] Basophil percentage 0.80 mg/dL 0.20-1.00 [facility] Bilirubin [Mass/Vol] 0.80 mg/dL 0.20-1.00 [facility] Comment on above: For patients on eltr ombopag therapy, use of Dimension Leonardo TBIL is not recommended. Protein [Mass/Vol] 6.6 g/dL 6.4-8.2 [facility] Blood manual differential co mment interpretation (narrative result)Ordered By: Felipe Cordoba on 08-14-2023 Manual differential comment Ray (Bld) [Interp] SCANNED [facility] Laboratory - Chemistry and C hemistry - challengeOrdered By: Felipe Cordoba on 08-14-2023 Albumin/Globulin [Mass ratio] 0.7 {ratio} 0.9-2.4 [facility] ALP [Catalytic activity/Vol] 60 U/L 45-117 [facility] ALT [Catalytic activity/Vol] 15 U/L 13-56 [facility] Globulin (S) [Mass/Vol] 3.8 g/dL 2.2-4.2 [facility] Magnesium [Mass/Vol] 2.2 mg/dL 1.6-2.6 [facility] No Panel InformationOrdered By: Felipe Cordoba on 08-14-2023 3.8 g/dL 2.2-4.2 [facility] 0.7 RATIO 0.9-2.4 [facility] 60 U/L 45-117 [facility] 15 U/L - [facility] 2.2 mg/dL 1.6-2.6 [facility] Review by pathologistOrdered By: Felipe Cordoba on 08-14-2023 Pathologist review Ray (Unsp spec) [Interp] Reviewed [facility] Comment on above: Previous reported re sult: Aubree lion Edited by: [email or web address] on 08/15/23:1427Leukocytosis.Microcytic anemia.Clinical correlation necessary.Aaron Sloan M.D. 08/15/23 AMENDED REPORT 08/15/23 1427 PATH REV previously reported as: Aubree lion Serum or plasma thyroid stim ulating hormone (TSH) measurement (units/volume)Ordered By: Felipe Cordoba on 08-14-2023 TSH Qn 3.30 uIU/mL 0.358-3.74 [facility] Thin prep Papanicolaou smear with manual screeningOrdered By: Felipe Cordoba on 08-14-2023 Thin prep Papanicolaou smear with manual screening 2.8 g/dL 3.2-5.0 [facility] Thin prep Papanicolaou smear with manual screening 14 U/L 15-37 [facility] Absolute lymphocyte countOrd ered By: Kelle Foster on 08-13-2023 Lymphocytes Auto (Unsp spec) [#/Vol] 1.50 10*3/uL 0.83-4.51 [facility] Automated lymphocyte count a s percentage of total leukocytesOrdered By: Kelle Foster on 08-13-2023 Lymphocytes/100 WBC Auto (Unsp spec) 9.8 % 19-41 [facility] Bacteria identified Cx Nom ( U)Ordered By: Kelle Foster on 08-13-2023 Culture, urine Lactobacillus gasseri [facility] Culture, urine Lactobacillus gasseri [facility] Basophil percentageOrdered B y: Kelle Foster on 08-13-2023 Basophil percentage 5-10 SEEN /hpf 0-5 [facility] Basophils/100 WBC (Bld) 0.3 % 0-1 [facility] Chloride [Moles/Vol] 100 mmol/L 98-107 [facility] Eosinophils/100 WBC (Bld) 0.4 % 0-5 [facility] Glucose [Mass/Vol] 127 mg/dL 74-106 [facility] Comment on above: Fasting Glucose resu lt greater than or equal to 126 mg/dL suggests DIABETES MELLITUS per A.D.A. criteria. Hemoglobin (Bld) [Mass/Vol] 11.2 g/dL 12.0-15.0 [facility] Monocytes/100 WBC (Bld) 11.6 % 0-10 [facility] Neutrophils (Bld) [#/Vol] 11.8 10*3/uL 2.0-7.7 [facility] Neutrophils/100 WBC (Bld) 77.3 % 47-70 [facility] Potassium [Moles/Vol] 3.0 mmol/L 3.5-5.1 [facility] Sodium [Moles/Vol] 135 mmol/L 136-145 [facility] WBC (Bld) [#/Vol] 15.2 10*3/uL 4.4-11.0 [facility] Bilirubin Test strip Ql (U)O rdered By: Kelle Foster on 08-13-2023 Bilirubin Ql (U) 3 mg/dL Negative [facility] Comment on above: COLOR OF URINE MAY A FFECT DIPSTICK RESULTS. Blood manual differential co mment interpretation (narrative result)Ordered By: Kelle Foster on 08-13-2023 Manual differential comment Ray (Bld) [Interp] SCANNED [facility] Comment on above: MONOCYTOSIS NOTED Culture, urineOrdered By: John Foster on 08-13-2023 Bacteria identified Cx Nom (U) Lactobacillus gasseri [facility] Determination of erythrocyte mean corpuscular volume (MCV)Ordered By: Kelle Fosetr on 08-13-2023 MCV (RBC) [Entitic vol] 78.6 fL 81-99 [facility] Erythrocyte distribution wid th ratioOrdered By: Kelle Foster on 08-13-2023 Erythrocyte distribution width (RBC) [Ratio] 18.5 % 11.6-14.6 [facility] Erythrocyte distribution wid th standard deviationOrdered By: Kelle Foster on 08-13-2023 Erythrocyte distribution width (RBC) [Entitic vol] 52.9 fL 35.1-43.9 [facility] Hematocrit Auto (Bld) [Volum e fraction]Ordered By: Kelle Foster on 08-13-2023 Hematocrit (Bld) [Volume fraction] 38.6 % 37-47 [facility] Immature granulocytes/100 WB C Auto (Bld)Ordered By: Kelle Foster on 08-13-2023 Immature granulocytes/100 WBC (Bld) 0.600 % 0.0-0.9 [facility] Comment on above: IG% - Immature Granu locytes (promyelocytes, myelocytes and metamyelocytes) > 1% indicates that a LEFT SHIFT is Present. Ketones Test strip Ql (U)Ord ered By: Kelle Foster on 08-13-2023 Ketones Ql (U) 5 mg/dl Negative [facility] Laboratory - Chemistry and C hemistry - challengeOrdered By: Kelle Foster on 08-13-2023 CO2 [Moles/Vol] 28.0 mmol/L 21.0-32.0 [facility] Natriuretic peptide B (Bld) [Mass/Vol] 90.4 pg/mL 0-100 [facility] Urea nitrogen/Creatinine [Mass ratio] 13.1 mg/mg 10-20 [facility] Laboratory - Hematology and Cell countsOrdered By: Kelle Foster on 08-13-2023 MCH (RBC) [Entitic mass] 22.8 pg 27.0-32.0 [facility] MCHC (RBC) [Mass/Vol] 29.0 g/dL 32-36 [facility] Nucleated RBC/100 WBC (Bld) [Ratio] 0 % 0-5 [facility] Platelets (Bld) [#/Vol] 335 10*3/uL 150-450 [facility] Mucus LM Ql (Urine sed)Order ed By: Kelle Foster on 08-13-2023 Mucus Ql (Urine sed) 1+ /hpf [facility] Nitrite Test strip Ql (U)Ord ered By: Kelle Foster on 08-13-2023 Nitrite Ql (U) Negative Negative [facility] No Panel InformationOrdered By: Kelle Foster on 08-13-2023 D-Dimer Quantitative (PE/DVT) 1.47 FEU/ug/m 0.27-0.49 [facility] Comment on above: D-Dimer ELEVATED (>0 .49): Additional studies and clinicalassessments are indicated to conclude diagnosis of:Deep Vein Thrombosis (DVT) or Pulmonary Embolism (PE)CRITICAL VALUE VERIFIED. CALLED TO [id number] Gwendolyn Braga.RESULTS READ BACK BY SAME . 1.47 FEU/ug/m 0.27-0.49 [facility] Urine RBC 0-5 SEEN /hpf 0-5 [facility] 0-5 SEEN /hpf 0-5 [facility] Estimated Creatinine Clearance Calc 55.85 ml/min [facility] Estimated GFR (MDRD) Amer 70 mL/min >60 [facility] Comment on above: GFR Calc Estimated GFR (MDRD) Non-Af Amer 58 mL/min >60 [facility] Comment on above: Non- GFR Calc 90.4 pg/mL 0-100 [facility] Platelet mean volume Ariel-Ec ker (Bld) [Entitic vol]Ordered By: Kelle Foster on 08-13-2023 Platelet mean volume (Bld) [Entitic vol] 8.7 fL 6.2-12.0 [facility] Protein Test strip Ql (U)Ord ered By: Kelle Foster on 08-13-2023 Protein Ql (U) 30 mg/dl Negative [facility] RBC Auto (Bld) [#/Vol]Ordere d By: Kelle Foster on 08-13-2023 RBC (Bld) [#/Vol] 4.91 10*6/uL 4.2-5.4 [facility] Review by pathologistOrdered By: Kelle Foster on 08-13-2023 Pathologist review Ray (Unsp spec) [Interp] May foll [facility] Serum or plasma calcium gustavo urement (mass/volume)Ordered By: Kelle Foster on 08-13-2023 Calcium [Mass/Vol] 9.7 mg/dL 8.5-10.1 [facility] Serum or plasma creatinine m easurement (mass/volume)Ordered By: Kelle Foster on 08-13-2023 Creatinine [Mass/Vol] 0.99 mg/dL 0.55-1.02 [facility] Comment on above: The validity of the calculated GFR & GFRAA in patients over 70 years has not been determined. Clinical correlation is essential. Serum or plasma urea nitroge n measurement (mass/volume)Ordered By: Kelle Foster on 08-13-2023 Urea nitrogen [Mass/Vol] 13 mg/dL 7-18 [facility] Serum or plasma uric acid me asurement (mass/volume)Ordered By: Kelle Foster on 08-13-2023 Urate [Mass/Vol] 5.8 mg/dL 2.6-6.0 [facility] Comment on above: The drugs N-Acetylcy steine and Metamizole may falsely depress this assay. Squamous epithelial cells de tection in urine sediment by light microscopyOrdered By: Kelle Foster on 08-13-2023 Epithelial cells.squamous LM Ql (Urine sed) 0-5 SEEN /hpf 5-10 [facility] Thin prep Papanicolaou smear with manual screeningOrdered By: Kelle Foster on 08-13-2023 Thin prep Papanicolaou smear with manual screening 7 5-15 [facility] Urine blood detectionOrdered By: Kelle Foster on 08-13-2023 RBC Ql (U) 50 /ul Negative [facility] Urine clarityOrdered By: Lizett Foster on 08-13-2023 Clarity (U) Sl. Cloudy Clear [facility] Urine color determinationOrd ered By: Kelle Foster on 08-13-2023 Color (U) Tram Yellow [facility] Urine glucose detectionOrder ed By: Kelle Foster on 08-13-2023 Glucose Ql (U) Normal mg/dl Normal [facility] Urine leukocyte esterase det ection by dipstickOrdered By: Kelle Foster on 08-13-2023 Leukocyte esterase Test strip Ql (U) 100 /ul Negative [facility] Urine pHOrdered By: Kelle Foster on 08-13-2023 pH (U) 5.0 [pH] 5.0 - 8.0 [facility] Urine sediment bacteria coun t by microscopy (number/high power field)Ordered By: Kelle Foster on 08-13-2023 Bacteria LM.HPF (Urine sed) [#/Area] RARE /hpf None Seen [facility] Urine specific gravity measu rementOrdered By: Kelle Foster on 08-13-2023 Specific gravity (U) [Rel density] 1.020 1.002-1.030 [facility] Urine urobilinogen measureme ntOrdered By: Kelle Foster on 08-13-2023 Urobilinogen Ql (U) 1 mg/dl Normal [facility] Absolute lymphocyte countOrd ered By: Moon Rayo on 08-01-2023 Lymphocytes Auto (Unsp spec) [#/Vol] 1.72 10*3/uL 0.83-4.51 [facility] Basophil percentageOrdered B y: Moon Rayo on 08-01-2023 Basophil percentage 106 mg/dL 74-106 [facility] Basophil percentage 7.5 g/dL 6.4-8.2 [facility] Basophil percentage 0.70 mg/dL 0.20-1.00 [facility] Basophil percentage 141 mg/dL <200 [facility] Basophil percentage 117 mg/dL <199 [facility] Basophil percentage 141 mmol/L 136-145 [facility] Basophil percentage 3.6 mmol/L 3.5-5.1 [facility] Basophil percentage 105 mmol/L 98-107 [facility] Basophils (Bld) [#/Vol] 10.0 10*3/uL 4.4-11.0 [facility] Basophils (Bld) [#/Vol] 7.1 10*3/uL 2.0-7.7 [facility] Basophils/100 WBC (Bld) 0.6 % 0-1 [facility] Basophils/100 WBC (Bld) 70.9 % 47-70 [facility] Basophils/100 WBC (Bld) 2.5 % 0-5 [facility] Bilirubin [Mass/Vol] 0.70 mg/dL 0.20-1.00 [facility] Comment on above: For patients on eltr ombopag therapy, use of Dimension Leonardo TBIL is not recommended. Chloride [Moles/Vol] 105 mmol/L 98-107 [facility] Cholesterol [Mass/Vol] 141 mg/dL <200 [facility] Comment on above: <200 mg/dL Desirable 200-240 mg/dL Borderline >240 mg/dL High Risk Eosinophils/100 WBC (Bld) 2.5 % 0-5 [facility] Glucose [Mass/Vol] 106 mg/dL 74-106 [facility] Comment on above: Fasting Glucose resu lt from 100 to 125 mg/dL suggests IMPAIRED HOMEOSTASIS per A.D.A. criteria. Neutrophils (Bld) [#/Vol] 7.1 10*3/uL 2.0-7.7 [facility] Neutrophils/100 WBC (Bld) 70.9 % 47-70 [facility] Potassium [Moles/Vol] 3.6 mmol/L 3.5-5.1 [facility] Protein [Mass/Vol] 7.5 g/dL 6.4-8.2 [facility] Sodium [Moles/Vol] 141 mmol/L 136-145 [facility] Triglyceride [Mass/Vol] 117 mg/dL <199 [facility] Comment on above: The drugs N-Acetylcy steine and Metamizole may falsely depress this assay.Serum Triglycerides Reference Interval Normal <150 mg/dL Borderline high 150 - 199 mg/dL High 200 - 499 mg/dL Very High > or = 500 mg/dL WBC (Bld) [#/Vol] 10.0 10*3/uL 4.4-11.0 [facility] Blood erythrocytes count (nu mber/volume)Ordered By: Moon Rayo on 08-01-2023 RBC (Bld) [#/Vol] 5.11 10*6/uL 4.2-5.4 [facility] Blood hemoglobin measurement (mass/volume)Ordered By: Moon Rayo on 08-01-2023 Hemoglobin (Bld) [Mass/Vol] 11.7 g/dL 12.0-15.0 [facility] Blood lymphocytes/100 leukoc ytesOrdered By: Moon Rayo on 08-01-2023 Lymphocytes/100 WBC (Bld) 17.1 % 19-41 [facility] Blood monocytes/100 leukocyt esOrdered By: Moon Rayo on 08-01-2023 Monocytes/100 WBC (Bld) 8.2 % 0-10 [facility] Blood platelet mean volumeOr dered By: Moon Rayo on 08-01-2023 Platelet mean volume (Bld) [Entitic vol] 9.2 fL 6.2-12.0 [facility] Determination of erythrocyte mean corpuscular volume (MCV)Ordered By: Moon Rayo on 08-01-2023 MCV (RBC) [Entitic vol] 80.4 fL 81-99 [facility] Erythrocyte sedimentation ra teOrdered By: Moon Rayo on 08-01-2023 ESR (Bld) [Velocity] 28 mm/h 0-30 [facility] Hematocrit Auto (Bld) [Volum e fraction]Ordered By: Moon Rayo on 08-01-2023 Hematocrit (Bld) [Volume fraction] 41.1 % 37-47 [facility] Iron measurement (mass/mass) Ordered By: Moon Rayo on 08-01-2023 Iron (Unsp spec) [Mass/Mass] 32 ug/dL 50-170 [facility] Laboratory - Chemistry and C hemistry - challengeOrdered By: Moon Rayo on 08-01-2023 ALP [Catalytic activity/Vol] 80 U/L 45-117 [facility] ALT [Catalytic activity/Vol] 36 U/L 13-56 [facility] CO2 [Moles/Vol] 30.0 mmol/L 21.0-32.0 [facility] Globulin (S) [Mass/Vol] 4.1 g/dL 2.2-4.2 [facility] Magnesium [Mass/Vol] 2.4 mg/dL 1.6-2.6 [facility] Urea nitrogen/Creatinine [Mass ratio] 23.8 mg/mg 10-20 [facility] Laboratory - Hematology and Cell countsOrdered By: Moon Rayo on 08-01-2023 Erythrocyte distribution width (RBC) [Entitic vol] 54.5 fL 35.1-43.9 [facility] Erythrocyte distribution width (RBC) [Ratio] 18.9 % 11.6-14.6 [facility] Immature granulocytes/100 WBC (Bld) 0.700 % 0.0-0.9 [facility] Comment on above: IG% - Immature Granu locytes (promyelocytes, myelocytes and metamyelocytes) > 1% indicates that a LEFT SHIFT is Present. MCH (RBC) [Entitic mass] 22.9 pg 27.0-32.0 [facility] Nucleated RBC/100 WBC (Bld) [Ratio] 0 % 0-5 [facility] MCHC Auto (RBC) [Mass/Vol]Or dered By: Moon Rayo on 08-01-2023 MCHC (RBC) [Mass/Vol] 28.5 g/dL 32-36 [facility] No Panel InformationOrdered By: Moon Rayo on 08-01-2023 Estimated GFR (MDRD) Amer 89 mL/min >60 [facility] Comment on above: GFR Calc Estimated GFR (MDRD) Non-Af Amer 74 mL/min >60 [facility] Comment on above: Non- GFR Calc Thyroid Stimulating Hormone (TSH) 2.10 uIU/mL 0.358-3.74 [facility] Total Iron Binding Capacity 413 ug/dL 250-450 [facility] Vitamin D 25-Hydroxy 29.1 ng/mL [facility] Comment on above: Vitamin D 25(OH) Sta tus Range Deficiency <20 ng/mL (50nmol/L) Insufficiency 20 - 30 ng/mL (50 - 75 nmol/L) Sufficiency 30 - 100 ng/mL (75 - 250 nmol/L) Toxicity >100 ng/mL (>250 nmol/L) 22.9 pg 27.0-32.0 [facility] 18.9 % 11.6-14.6 [facility] 54.5 fl 35.1-43.9 [facility] 0.700 % 0.0-0.9 [facility] 0 % 0-5 [facility] 74 mL/min >60 [facility] 89 mL/min >60 [facility] 23.8 RATIO 10-20 [facility] 4.1 g/dL 2.2-4.2 [facility] 80 U/L 45-117 [facility] 36 U/L 13-56 [facility] 2.4 mg/dL 1.6-2.6 [facility] 30.0 mmol/L 21.0-32.0 [facility] 2.10 uIU/mL 0.358-3.74 [facility] 413 ug/dL 250-450 [facility] 29.1 ng/mL [facility] Platelets bldOrdered By: Carol Rayo on 08-01-2023 Platelets (Bld) [#/Vol] 418 10*3/uL 150-450 [facility] Serum or plasma albumin gustavo urement (mass/volume)Ordered By: Moon Rayo on 08-01-2023 Albumin [Mass/Vol] 3.4 g/dL 3.2-5.0 [facility] Serum or plasma albumin/glob ulin mass ratioOrdered By: Moon Rayo on 08-01-2023 Albumin/Globulin [Mass ratio] 0.8 {ratio} 0.9-2.4 [facility] Serum or plasma calcium gustavo urement (mass/volume)Ordered By: Moon Rayo on 08-01-2023 Calcium [Mass/Vol] 9.5 mg/dL 8.5-10.1 [facility] Serum or plasma cholesterol in HDL measurement (mass/volume)Ordered By: Moon Rayo on 08-01-2023 Cholesterol in HDL [Mass/Vol] 45 mg/dL >40 [facility] Comment on above: The drugs N-Acetylcy steine and Metamizole may falsely depress this assay. Reference Range HDL <40 mg/dL Low HDL Cholesterol HDL >or= 60 mg/dL High HDL Cholesterol Serum or plasma cholesterol in VLDL measurement (mass/volume)Ordered By: Moon Rayo on 08-01-2023 Cholesterol in VLDL [Mass/Vol] 23 mg/dL 5-40 [facility] Serum or plasma creatinine m easurement (mass/volume)Ordered By: Moon Rayo on 08-01-2023 Creatinine [Mass/Vol] 0.80 mg/dL 0.55-1.02 [facility] Comment on above: The validity of the calculated GFR & GFRAA in patients over 70 years has not been determined. Clinical correlation is essential. Serum or plasma iron saturat ion measurement (mass fraction)Ordered By: Moon Rayo on 08-01-2023 Iron saturation [Mass fraction] 7.7 % 15.0-55.0 [facility] Serum or plasma low density lipoprotein (LDL) cholesterol measurement (mass/volume)Ordered By: Moon Rayo on 08-01-2023 Cholesterol in LDL [Mass/Vol] 73 mg/dL 0-130 [facility] Serum or plasma urea nitroge n measurement (mass/volume)Ordered By: Moon Rayo on 08-01-2023 Urea nitrogen [Mass/Vol] 19 mg/dL 7-18 [facility] Serum or plasma uric acid me asurement (mass/volume)Ordered By: Moon Rayo on 08-01-2023 Urate [Mass/Vol] 5.7 mg/dL 2.6-6.0 [facility] Comment on above: The drugs N-Acetylcy steine and Metamizole may falsely depress this assay. Thin prep Papanicolaou smear with manual screeningOrdered By: Moon Rayo on 08-01-2023 Thin prep Papanicolaou smear with manual screening 41 U/L 15-37 [facility] Thin prep Papanicolaou smear with manual screening 6 5-15 [facility] Absolute lymphocyte counton 07-15-2022 Lymphocytes Auto (Unsp spec) [#/Vol] 2.12 10*3/uL 0.83-4.51 [facility] Work Phone: Basophil percentageon 2021 Basophils/100 WBC (Bld) 0.3 % 0-1 [facility] Work Phone: Bilirubin [Mass/Vol] 0.40 mg/dL 0.20-1.00 [facility] Work Phone: Comment on above: For patients on eltr ombopag therapy, use of Dimension Leonardo TBIL is not recommended. Chloride [Moles/Vol] 102 mmol/L 98-107 [facility] Work Phone: Eosinophils/100 WBC (Bld) 1.6 % 0-5 [facility] Work Phone: [phone] Glucose [Mass/Vol] 83 mg/dL 74-106 [facility] Work Phone: Neutrophils (Bld) [#/Vol] 9.2 10*3/uL 2.0-7.7 [facility] Work Phone: Neutrophils/100 WBC (Bld) 72.2 % 47-70 [facility] Work Phone: Potassium [Moles/Vol] 3.8 mmol/L 3.5-5.1 [facility] Work Phone: [phone] Protein [Mass/Vol] 7.6 g/dL 6.4-8.2 [facility] Work Phone: Sodium [Moles/Vol] 137 mmol/L 136-145 [facility] Work Phone: WBC (Bld) [#/Vol] 12.7 10*3/uL 4.4-11.0 [facility] Work Phone: Blood erythrocytes count (nu mber/volume)on 07-15-2022 RBC (Bld) [#/Vol] 4.89 10*6/uL 4.2-5.4 [facility] Work Phone: Blood hemoglobin measurement (mass/volume)on 07-15-2022 Hemoglobin (Bld) [Mass/Vol] 12.0 g/dL 12.0-15.0 [facility] Work Phone: Blood lymphocytes/100 leukoc yteson 07-15-2022 Lymphocytes/100 WBC (Bld) 16.7 % 19-41 [facility] Work Phone: Blood monocytes/100 leukocyt eson 07-15-2022 Monocytes/100 WBC (Bld) 8.3 % 0-10 [facility] Work Phone: Blood platelet mean volumeon 07-15-2022 Platelet mean volume (Bld) [Entitic vol] 9.7 fL 6.2-12.0 [facility] Work Phone: Determination of erythrocyte mean corpuscular volume (MCV)on 07-15-2022 MCV (RBC) [Entitic vol] 83.4 fL 81-99 [facility] Work Phone: Hematocrit Auto (Bld) [Volum e fraction]on 07-15-2022 Hematocrit (Bld) [Volume fraction] 40.8 % 37-47 [facility] Work Phone: Laboratory - Chemistry and C hemistry - challengeon 07-15-2022 ALP [Catalytic activity/Vol] 73 U/L 45-117 [facility] Work Phone: ALT [Catalytic activity/Vol] 56 U/L 13-56 [facility] Work Phone: CO2 [Moles/Vol] 31.0 mmol/L 21.0-32.0 [facility] Work Phone: Globulin (S) [Mass/Vol] 3.9 g/dL 2.2-4.2 [facility] Work Phone: Magnesium [Mass/Vol] 2.3 mg/dL 1.6-2.6 [facility] Work Phone: Urea nitrogen/Creatinine [Mass ratio] 25.8 mg/mg 10-20 [facility] Work Phone: Laboratory - Hematology and Cell countson 07-15-2022 Erythrocyte distribution width (RBC) [Entitic vol] 51.7 fL 35.1-43.9 [facility] Work Phone: Erythrocyte distribution width (RBC) [Ratio] 17.1 % 11.6-14.6 [facility] Work Phone: Immature granulocytes/100 WBC (Bld) 0.900 % 0.0-0.9 [facility] Work Phone: Comment on above: IG% - Immature Granu locytes (promyelocytes, myelocytes and metamyelocytes) > 1% indicates that a LEFT SHIFT is Present. MCH (RBC) [Entitic mass] 24.5 pg 27.0-32.0 [facility] Work Phone: Nucleated RBC/100 WBC (Bld) [Ratio] 0 % 0-5 [facility] Work Phone: MCHC Auto (RBC) [Mass/Vol]on 07-15-2022 MCHC (RBC) [Mass/Vol] 29.4 g/dL 32-36 [facility] Work Phone: No Panel Informationon 07-15 Estimated GFR (MDRD) Amer 98 mL/min >60 [facility] Work Phone: Comment on above: GFR Calc Estimated GFR (MDRD) Non-Af Amer 81 mL/min >60 [facility] Work Phone: Comment on above: Non- GFR Calc Thyroid Stimulating Hormone (TSH) 3.39 uIU/mL 0.358-3.74 [facility] Work Phone: Vitamin D 25-Hydroxy 20.0 ng/mL [facility] Work Phone: Comment on above: Vitamin D 25(OH) Sta tus Range Deficiency <20 ng/mL (50nmol/L) Insufficiency 20 - 30 ng/mL (50 - 75 nmol/L) Sufficiency 30 - 100 ng/mL (75 - 250 nmol/L) Toxicity >100 ng/mL (>250 nmol/L) Platelets bldon 07-15-2022 Platelets (Bld) [#/Vol] 325 10*3/uL 150-450 [facility] Work Phone: Serum or plasma albumin gustavo urement (mass/volume)on 07-15-2022 Albumin [Mass/Vol] 3.7 g/dL 3.2-5.0 [facility] Work Phone: Serum or plasma albumin/glob ulin mass ratioon 07-15-2022 Albumin/Globulin [Mass ratio] 0.9 {ratio} 0.9-2.4 [facility] Work Phone: Serum or plasma calcium gustavo urement (mass/volume)on 07-15-2022 Calcium [Mass/Vol] 9.4 mg/dL 8.5-10.1 [facility] Work Phone: Serum or plasma creatinine m easurement (mass/volume)on 07-15-2022 Creatinine [Mass/Vol] 0.74 mg/dL 0.55-1.02 [facility] Work Phone: Comment on above: The validity of the calculated GFR & GFRAA in patients over 70 years has not been determined. Clinical correlation is essential. Serum or plasma urea nitroge n measurement (mass/volume)on 07-15-2022 Urea nitrogen [Mass/Vol] 19 mg/dL 7-18 [facility] Work Phone: Thin prep Papanicolaou smear with manual screeningon 07-15-2022 Thin prep Papanicolaou smear with manual screening 46 U/L 15-37 [facility] Work Phone: Thin prep Papanicolaou smear with manual screening 4 5-15 [facility] Work Phone: Absolute lymphocyte counton 12-14-2021 Lymphocytes Auto (Unsp spec) [#/Vol] 0.91 10*3/uL 0.83-4.51 [facility] Work Phone: Basophil percentageon 2021 Basophil percentage 5-10 SEEN /hpf [facility] Work Phone: Basophils/100 WBC (Bld) 0.4 % 0-1 [facility] Work Phone: Bilirubin [Mass/Vol] 0.20 mg/dL 0.20-1.00 [facility] Work Phone: Comment on above: For patients on eltr ombopag therapy, use of Dimension Leonardo TBIL is not recommended. Chloride [Moles/Vol] 110 mmol/L 98-107 [facility] Work Phone: Eosinophils/100 WBC (Bld) 1.3 % 0-5 [facility] Work Phone: Glucose [Mass/Vol] 125 mg/dL 74-106 [facility] Work Phone: Comment on above: Fasting Glucose resu lt from 100 to 125 mg/dL suggests IMPAIRED HOMEOSTASIS per A.D.A. criteria. Neutrophils (Bld) [#/Vol] 5.0 10*3/uL 2.0-7.7 [facility] Work Phone: Neutrophils/100 WBC (Bld) 70.1 % 47-70 [facility] Work Phone: Potassium [Moles/Vol] 2.5 mmol/L 3.5-5.1 [facility] Work Phone: Comment on above: Slight Hemolysis, Re sult may be falsely increased. Critical Result(s) Called at: 15:44:42 12/14/2021 by: Jackson Núñez RN (ER). Results read back by same. Protein [Mass/Vol] 6.9 g/dL 6.4-8.2 [facility] Work Phone: Sodium [Moles/Vol] 139 mmol/L 136-145 [facility] Work Phone: WBC (Bld) [#/Vol] 7.1 10*3/uL 4.4-11.0 [facility] Work Phone: Bilirubin Test strip Ql (U)o n 12-14-2021 Bilirubin Ql (U) Negative Negative [facility] Work Phone: Blood erythrocytes count (nu mber/volume)on 12-14-2021 RBC (Bld) [#/Vol] 5.48 10*6/uL 4.2-5.4 [facility]: Blood hemoglobin measurement (mass/volume)on 12-14-2021 Hemoglobin (Bld) [Mass/Vol] 14.4 g/dL 12.0-15.0 [facility] Work Phone: Blood lymphocytes/100 leukoc yteson 12-14-2021 Lymphocytes/100 WBC (Bld) 12.8 % 19-41 [facility] Work Phone: Blood monocytes/100 leukocyt eson 12-14-2021 Monocytes/100 WBC (Bld) 14.7 % 0-10 [facility] Work Phone: Blood platelet mean volumeon 12-14-2021 Platelet mean volume (Bld) [Entitic vol] 9.7 fL 6.2-12.0 [facility] Work Phone: Determination of erythrocyte mean corpuscular volume (MCV)on 12-14-2021 MCV (RBC) [Entitic vol] 84.3 fL 81-99 [facility] Work Phone: Hematocrit Auto (Bld) [Volum e fraction]on 12-14-2021 Hematocrit (Bld) [Volume fraction] 46.2 % 37-47 [facility] Work Phone: Ketones Test strip Ql (U)on 12-14-2021 Ketones Ql (U) Negative Negative [facility] Work Phone: Laboratory - Chemistry and C hemistry - challengeon 12-14-2021 ALP [Catalytic activity/Vol] 68 U/L 45-117 [facility] Work Phone: ALT [Catalytic activity/Vol] 185 U/L 13-56 [facility] Work Phone: CO2 [Moles/Vol] 18.0 mmol/L 21.0-32.0 [facility] Work Phone: [phone] Globulin (S) [Mass/Vol] 3.6 g/dL 2.2-4.2 [facility] Work Phone: [phone] Lipase [Catalytic activity/Vol] 85 U/L 73-393 [facility] Work Phone: [phone] Urea nitrogen/Creatinine [Mass ratio] 26.7 mg/mg 10-20 [facility] Work Phone: Laboratory - Hematology and Cell countson 12-14-2021 Erythrocyte distribution width (RBC) [Entitic vol] 50.9 fL 35.1-43.9 [facility] Work Phone: Erythrocyte distribution width (RBC) [Ratio] 16.5 % 11.6-14.6 [facility] Work Phone: Immature granulocytes/100 WBC (Bld) 0.700 % 0.0-0.9 [facility] Work Phone: Comment on above: IG% - Immature Granu locytes (promyelocytes, myelocytes and metamyelocytes) > 1% indicates that a LEFT SHIFT is Present. MCH (RBC) [Entitic mass] 26.3 pg 27.0-32.0 [facility] Work Phone: Nucleated RBC/100 WBC (Bld) [Ratio] 0 % 0-5 [facility] Work Phone: MCHC Auto (RBC) [Mass/Vol]on 12-14-2021 MCHC (RBC) [Mass/Vol] 31.2 g/dL 32-36 [facility] Work Phone: Mucus LM Ql (Urine sed)on Mucus Ql (Urine sed) 0 SEEN /hpf [facility] Work Phone: Nitrite Test strip Ql (U)on 12-14-2021 Nitrite Ql (U) Negative Negative [facility] Work Phone: No Panel Informationon 12-14 Estimated Creatinine Clearance Calc 34.44 ml/min [facility] Work Phone: Estimated GFR (MDRD) Amer 56 mL/min >60 [facility] Work Phone: Comment on above: GFR Calc Estimated GFR (MDRD) Non-Af Amer 46 mL/min >60 [facility] Work Phone: Comment on above: Non- GFR Calc Platelets bldon 12-14-2021 Platelets (Bld) [#/Vol] 257 10*3/uL 150-450 [facility] Work Phone: Protein Test strip Ql (U)on 12-14-2021 Protein Ql (U) 30 mg/dl Negative [facility] Work Phone: Serum or plasma albumin gustavo urement (mass/volume)on 12-14-2021 Albumin [Mass/Vol] 3.3 g/dL 3.2-5.0 [facility] Work Phone: Serum or plasma albumin/glob ulin mass ratioon 12-14-2021 Albumin/Globulin [Mass ratio] 0.9 {ratio} 0.9-2.4 [facility] Work Phone: Serum or plasma calcium gustavo urement (mass/volume)on 12-14-2021 Calcium [Mass/Vol] 8.6 mg/dL 8.5-10.1 [facility] Work Phone: Serum or plasma creatinine m easurement (mass/volume)on 12-14-2021 Creatinine [Mass/Vol] 1.20 mg/dL 0.55-1.02 [facility] Work Phone: Comment on above: The validity of the calculated GFR & GFRAA in patients over 70 years has not been determined. Clinical correlation is essential. Serum or plasma urea nitroge n measurement (mass/volume)on 12-14-2021 Urea nitrogen [Mass/Vol] 32 mg/dL 7-18 [facility] Work Phone: Squamous epithelial cells de tection in urine sediment by light microscopyon 12-14-2021 Epithelial cells.squamous LM Ql (Urine sed) 5-10 SEEN /hpf [facility] Work Phone: Thin prep Papanicolaou smear with manual screeningon 12-14-2021 Thin prep Papanicolaou smear with manual screening 106 U/L 15-37 [facility] Work Phone: Comment on above: Slight Hemolysis, Re sult may be falsely increased. Thin prep Papanicolaou smear with manual screening 11 5-15 [facility] Work Phone: Urine blood detectionon 11-23 RBC Ql (U) 10 /ul Negative [facility] Work Phone: RBC Ql (U) 0-5 SEEN /hpf [facility] Work Phone: Urine clarityon 12-14-2021 Clarity (U) Clear Clear [facility] Work Phone: Urine color determinationon 12-14-2021 Color (U) Yellow Yellow [facility] Work Phone: Urine glucose detectionon Glucose Ql (U) Normal mg/dl Normal [facility] Work Phone: Urine leukocyte esterase det ection by dipstickon 12-14-2021 Leukocyte esterase Test strip Ql (U) 25 /ul Negative [facility] Work Phone: Urine pHon 12-14-2021 pH (U) 6.0 [pH] [facility] Work Phone: Urine sediment bacteria coun t by microscopy (number/high power field)on 12-14-2021 Bacteria LM.HPF (Urine sed) [#/Area] RARE /hpf None Seen [facility] Work Phone: Urine specific gravity measu rementon 12-14-2021 Specific gravity (U) [Rel density] 1.015 [facility] Work Phone: Urobilinogen Auto test strip Ql (U)on 12-14-2021 Urobilinogen Ql (U) Normal mg/dl Normal [facility] Work Phone: CNOVon 11-14-2020 CNOV Office Visit (PODIWS ) VANESSA HERNANDEZ ([id number]) 1945 F Date Time Provider Department 11/14/20 11:00 AM LATONYA SOL During your visit today, we recorded the following information about you: Paty Harmon RN 11/14/2020 2:54 PM Signed AMB ROOMING INTAKE FLOWSHEET DATA Risk Screening Do you have concerns about personal safety or safety in the home?: No Patient presents with: Left Foot - Established Patient, Nail Care Right Foot - Established Patient, Nail Care Latonya Sol DPM 11/14/2020 2:54 PM Signed Subjective: Patient presents to clinic c/o painful toenails. They state that the nails are especially painful with shoe gear and pressure. Patient states that nails 1-5 b/l are painful. No other pedal complaints at this time. Patient states no change in medications or medical history since last visit. Objective: Patient presents to clinic ambulating in [facility] Vasc: DP and PT pulses are decreased [...] Patient is to RTC in 3-4 months. Latonya Sol DPM Referring Provider: LATONYA SOL [[id number]] Allergies As of Date: 11/14/2020 Noted Allergy Reaction ADHESIVE TAPE-SILICONES 05/06/2020 5 - Intolerance Comments: Tears skin BACTRIM (SULFAMETHOXAZOLE-TRIM ETH*06/02/2018 2 - Rash CODEINE 06/02/2018 1 - Mental Status Change FLAGYL (METRONIDAZOLE HCL) 06/02/2018 2 - Rash SULFA (SULFONAMIDE ANTIBIOTICS) 06/02/2018 14 - Other: See Comments Comments: Does not remember Date Reviewed: 11/14/2020 Reviewed by: Paty Harmon RN - Fully Assessed Reason for Visit: Established Patient [175] Nail Care [Other] Established Patient [175] Nail Care [Other] Primary Visit Diagnosis:Onychomycosi s [B35.1] Other Visit Diagnoses:Pain in toe of left foot [M79.675] Pain in toe of right foot [M79.674] Hallux valgus of right foot [M20.11] Prescriptions as of 11/14/2020 Sig: OMEPRAZOLE 40 MG CAPSULE,REGLA* Take 1 [...] three * Problem List As Of Date: 11/14/2020 (None) Disposition: Return in about 3 months (around 02/13/2021) for nail care. Follow-up and Disposition History Recorded Encounter Status:Closed by LATONYA SOL DPM on 11/14/20 Normal [facility] Vital Signs Date Time Vital Sign Value Performing Clinician Jojo tadeo 04-18-2025 09:54-0400 Body height 165.[address] Moon Rayo MD Work Phone: [facility] 04-18-2025 09:54-0400 Body mass index (BMI) [Ratio] 39.2 kg/m2 Dr. Moon Rayo MD Work Phone: [facility] 04-18-2025 09:54-0400 Body temperature 98.4 [degF] Dr. Moon Rayo MD Work Phone: [facility] 04-18-2025 09:54-0400 Body weight 107.[address] Moon Rayo MD Work Phone: [facility] 04-18-2025 09:54-0400 Diastolic blood pressure 85 mm[Hg] Dr. Moon Rayo MD Work Phone: [facility] 04-18-2025 09:54-0400 Heart rate 89 /min Dr. Moon Rayo MD Work Phone: [facility] 04-18-2025 09:54-0400 Respiratory rate 16 /min Dr. Moon Rayo MD Work Phone: [facility] 04-18-2025 09:54-0400 SaO2% (BldA) [Mass fraction] 93 % Dr. Moon Rayo MD Work Phone: [facility] 04-18-2025 09:54-0400 Systolic blood pressure 138 mm[Hg] Dr. Moon Rayo MD Work Phone: [facility] 02-21-2025 09:44-0400 Body height 165.[address] Moon Rayo MD Work Phone: [facility] 02-21-2025 09:44-0400 Body mass index (BMI) [Ratio] 38.5 kg/m2 Dr. Moon Rayo MD Work Phone: [facility] 02-21-2025 09:44-0400 Body temperature 98.4 [degF] Dr. Moon Rayo MD Work Phone: [facility] 02-21-2025 09:44-0400 Body weight 104.[address] Moon Rayo MD Work Phone: [facility] 02-21-2025 09:44-0400 Diastolic blood pressure 81 mm[Hg] Dr. Moon Rayo MD Work Phone: [facility] 02-21-2025 09:44-0400 Heart rate 90 /min Dr. Moon Rayo MD Work Phone: [facility] 02-21-2025 09:44-0400 Respiratory rate 16 /min Dr. Moon Rayo MD Work Phone: [facility] 02-21-2025 09:44-0400 SaO2% (BldA) [Mass fraction] 94 % Dr. Moon Rayo MD Work Phone: [facility] 02-21-2025 09:44-0400 Systolic blood pressure 135 mm[Hg] Dr. Moon Rayo MD Work Phone: [facility] 02-18-2025 13:36-0400 Body height 165.[address] Mono Rayo MD Work Phone: [facility] 02-18-2025 13:36-0400 Body mass index (BMI) [Ratio] 38.9 kg/m2 Dr. Moon Rayo MD Work Phone: [facility] 02-18-2025 13:36-0400 Body temperature 98 [degF] Dr. Moon Rayo MD Work Phone: [facility] 02-18-2025 13:36-0400 Body weight 106.[address] Moon Rayo MD Work Phone: [facility] 02-18-2025 13:36-0400 Diastolic blood pressure 87 mm[Hg] Dr. Moon Rayo MD Work Phone: [facility] 02-18-2025 13:36-0400 Heart rate 83 /min Dr. Moon Rayo MD Work Phone: [facility] 02-18-2025 13:36-0400 Respiratory rate 16 /min Dr. Moon Rayo MD Work Phone: [facility] 02-18-2025 13:36-0400 SaO2% (BldA) [Mass fraction] 93 % Dr. Moon Rayo MD Work Phone: [facility] 02-18-2025 13:36-0400 Systolic blood pressure 147 mm[Hg] Dr. Moon Rayo MD Work Phone: [facility] 10-31-2023 01:14-0400 Body temperature 98 [degF] Dr. Moon Rayo Work Phone: [facility] 10-31-2023 01:14-0400 Diastolic blood pressure 60 mm[Hg] Dr. Moon Rayo Work Phone: [facility] 10-31-2023 01:14-0400 Heart rate 85 /min Dr. Moon Rayo Work Phone: [facility] 10-31-2023 01:14-0400 Respiratory rate 18 /min Dr. Moon Rayo Work Phone: [facility] 10-31-2023 01:14-0400 SaO2% (BldA) [Mass fraction] 98 % Dr. Moon Rayo Work Phone: [facility] 10-31-2023 01:14-0400 Systolic blood pressure 158 mm[Hg] Dr. Moon Rayo Work Phone: [facility] 10-30-2023 23:06-0400 Body height 162.[address] Moon Rayo Work Phone: [facility] 10-30-2023 23:06-0400 Body mass index (BMI) [Ratio] 38.7 kg/m2 Dr. Moon Rayo Work Phone: [facility] 10-30-2023 23:06-0400 Body weight 102.[address] Moon Rayo Work Phone: [facility] 10-24-2023 13:58-0400 Body height 162.[address] Moon Rayo Work Phone: [facility] 10-24-2023 13:58-0400 Body mass index (BMI) [Ratio] 38 kg/m2 Dr. Moon Rayo Work Phone: [facility] 10-24-2023 13:58-0400 Body temperature 98.4 [degF] Dr. Moon Rayo Work Phone: [facility] 10-24-2023 13:58-0400 Body weight 100.[address] Moon Rayo Work Phone: [facility] 10-24-2023 13:58-0400 Diastolic blood pressure 77 mm[Hg] Dr. Moon Rayo Work Phone: [facility] 10-24-2023 13:58-0400 Heart rate 97 /min Dr. Moon Rayo Work Phone: [facility] 10-24-2023 13:58-0400 Respiratory rate 18 /min Dr. Moon Rayo Work Phone: [facility] 10-24-2023 13:58-0400 SaO2% (BldA) [Mass fraction] 94 % Dr. Moon Rayo Work Phone: [facility] 10-24-2023 13:58-0400 Systolic blood pressure 136 mm[Hg] Dr. Moon Rayo Work Phone: [facility] 10-06-2023 13:51-0400 Body mass index (BMI) [Ratio] 39.4 kg/m2 Dr. Moon Rayo Work Phone: [facility] 10-06-2023 13:51-0400 Body temperature 98.1 [degF] Dr. Moon Rayo Work Phone: [facility] 10-06-2023 13:51-0400 Body weight 104.[address] Moon Rayo Work Phone: [facility] 10-06-2023 13:51-0400 Diastolic blood pressure 79 mm[Hg] Dr. Moon Rayo Work Phone: [facility] 10-06-2023 13:51-0400 Heart rate 85 /min Dr. Moon Rayo Work Phone: [facility] 10-06-2023 13:51-0400 SaO2% (BldA) [Mass fraction] 92 % Dr. Moon Rayo Work Phone: [facility] 10-06-2023 13:51-0400 Systolic blood pressure 130 mm[Hg] Dr. Moon Rayo Work Phone: [facility] 09-28-2023 10:46-0500 Body temperature 97.6 [degF] Dr. Moon Rayo Work Phone: [facility] 09-28-2023 10:46-0500 Diastolic blood pressure 73 mm[Hg] Dr. Moon Rayo Work Phone: [facility] 09-28-2023 10:46-0500 Heart rate 81 /min Dr. Moon Rayo Work Phone: [facility] 09-28-2023 10:46-0500 Respiratory rate 14 /min Dr. Moon Rayo Work Phone: [facility] 09-28-2023 10:46-0500 SaO2% (BldA) [Mass fraction] 96 % Dr. Moon Rayo Work Phone: [facility] 09-28-2023 10:46-0500 Systolic blood pressure 121 mm[Hg] Dr. Moon Rayo Work Phone: [facility] 09-28-2023 02:25-0500 Body mass index (BMI) [Ratio] 39.2 kg/m2 Dr. Moon Rayo Work Phone: [facility] 09-27-2023 09:31-0500 Body height 162.[address] Moon Rayo Work Phone: [facility] 09-27-2023 09:31-0500 Body weight 103.[address] Moon Rayo Work Phone: [facility] 09-26-2023 15:33-0500 Body temperature 97.5 [degF] Dr. Moon Rayo Work Phone: [facility] 09-26-2023 15:33-0500 Diastolic blood pressure 81 mm[Hg] Dr. Moon Rayo Work Phone: [facility] 09-26-2023 15:33-0500 Heart rate 86 /min Dr. Moon Rayo Work Phone: [facility] 09-26-2023 15:33-0500 Respiratory rate 16 /min Dr. Moon Rayo Work Phone: [facility] 09-26-2023 15:33-0500 SaO2% (BldA) [Mass fraction] 97 % Dr. Moon Rayo Work Phone: [facility] 09-26-2023 15:33-0500 Systolic blood pressure 143 mm[Hg] Dr. Moon Rayo Work Phone: [facility] 09-26-2023 15:18-0500 Body height 162.[address] Moon Rayo Work Phone: [facility] 09-26-2023 15:18-0500 Body mass index (BMI) [Ratio] 39.2 kg/m2 Dr. Moon Rayo Work Phone: [facility] 09-26-2023 15:18-0500 Body weight 103.[address] Moon Rayo Work Phone: [facility] 08-22-2023 13:38-0500 Body mass index (BMI) [Ratio] 40.2 kg/m2 Dr. Moon Rayo Work Phone: [facility] 08-22-2023 13:38-0500 Body temperature 97.1 [degF] Dr. Moon Rayo Work Phone: [facility] 08-22-2023 13:38-0500 Body weight 106.[address] Moon Rayo Work Phone: [facility] 08-22-2023 13:38-0500 Diastolic blood pressure 64 mm[Hg] Dr. Moon Rayo Work Phone: [facility] 08-22-2023 13:38-0500 Heart rate 18 /min Dr. Moon Rayo Work Phone: [facility] 08-22-2023 13:38-0500 Respiratory rate 18 /min Dr. Moon Rayo Work Phone: [facility] 08-22-2023 13:38-0500 SaO2% (BldA) [Mass fraction] 94 % Dr. Moon Rayo Work Phone: [facility] 08-22-2023 13:38-0500 Systolic blood pressure 103 mm[Hg] Dr. Moon Rayo Work Phone: [facility] 08-16-2023 13:35-0500 Body temperature 98.5 [degF] Dr. Moon Rayo Work Phone: [facility] 08-16-2023 13:35-0500 Diastolic blood pressure 56 mm[Hg] Dr. Moon Rayo Work Phone: [facility] 08-16-2023 13:35-0500 Heart rate 101 /min Dr. Moon Rayo Work Phone: [facility] 08-16-2023 13:35-0500 Respiratory rate 18 /min Dr. Moon Rayo Work Phone: [facility] 08-16-2023 13:35-0500 SaO2% (BldA) [Mass fraction] 95 % Dr. Moon Rayo Work Phone: [facility] 08-16-2023 13:35-0500 Systolic blood pressure 109 mm[Hg] Dr. Moon Rayo Work Phone: [facility] 08-16-2023 05:50-0500 Body mass index (BMI) [Ratio] 31.4 kg/m2 Dr. Moon Rayo Work Phone: [facility] 08-16-2023 05:50-0500 Body weight 83.[address] Moon Rayo Work Phone: [facility] 08-14-2023 10:59-0500 Body height 162.[address] Moon Rayo Work Phone: [facility] 08-13-2023 22:15-0500 Diastolic blood pressure 66 mm[Hg] Dr. Moon Rayo Work Phone: [facility] 08-13-2023 22:15-0500 Heart rate 80 /min Dr. Moon Rayo Work Phone: [facility] 08-13-2023 22:15-0500 Respiratory rate 19 /min Dr. Moon Rayo Work Phone: [facility] 08-13-2023 22:15-0500 Systolic blood pressure 107 mm[Hg] Dr. Moon Rayo Work Phone: [facility] 08-13-2023 19:17-0500 Body height 162.[address] Moon Rayo Work Phone: [facility] 08-13-2023 19:17-0500 Body mass index (BMI) [Ratio] 40.4 kg/m2 Dr. Moon Rayo Work Phone: [facility] 08-13-2023 19:17-0500 Body temperature 97.3 [degF] Dr. Moon Rayo Work Phone: [facility] 08-13-2023 19:17-0500 Body weight 106.[address] Moon Rayo Work Phone: [facility] 07-28-2023 14:15-0500 Body height 162.[address] Moon Rayo Work Phone: [facility] 07-28-2023 14:15-0500 Body mass index (BMI) [Ratio] 41.2 kg/m2 Dr. Moon Rayo Work Phone: [facility] 07-28-2023 14:15-0500 Body temperature 96.3 [degF] Dr. Moon Rayo Work Phone: [facility] 07-28-2023 14:15-0500 Body weight 108.[address] Moon Rayo Work Phone: [facility] 07-28-2023 14:15-0500 Diastolic blood pressure 71 mm[Hg] Dr. Moon Rayo Work Phone: [facility] 07-28-2023 14:15-0500 Heart rate 80 /min Dr. Moon Rayo Work Phone: [facility] 07-28-2023 14:15-0500 Respiratory rate 16 /min Dr. Moon Rayo Work Phone: [facility] 07-28-2023 14:15-0500 SaO2% (BldA) [Mass fraction] 92 % Dr. Moon Rayo Work Phone: [facility] 07-28-2023 14:15-0500 Systolic blood pressure 107 mm[Hg] Dr. Moon Rayo Work Phone: [facility] 04-13-2023 11:10-0400 Body height 162.[address] Moon Rayo Work Phone: [facility] 04-13-2023 11:10-0400 Body mass index (BMI) [Ratio] 42 kg/m2 Dr. Moon Rayo Work Phone: [facility] 04-13-2023 11:10-0400 Body temperature 98.2 [degF] Dr. Moon Rayo Work Phone: [facility] 04-13-2023 11:10-0400 Body weight 111.[address] Moon Rayo Work Phone: [facility] 04-13-2023 11:10-0400 Diastolic blood pressure 75 mm[Hg] Dr. Moon Rayo Work Phone: [facility] 04-13-2023 11:10-0400 Heart rate 77 /min Dr. Moon Rayo Work Phone: [facility] 04-13-2023 11:10-0400 Respiratory rate 18 /min Dr. Moon Rayo Work Phone: [facility] 04-13-2023 11:10-0400 SaO2% (BldA) [Mass fraction] 94 % Dr. Moon Rayo Work Phone: [facility] 04-13-2023 11:10-0400 Systolic blood pressure 123 mm[Hg] Dr. Moon Rayo Work Phone: [facility] 07-15-2022 13:17-0500 Body temperature 98.1 [degF] Dr. Moon Rayo Work Phone: [facility] Work Phone: 07-15-2022 13:17-0500 Body weight 111.[address] Moon Rayo Work Phone: [facility] Work Phone: 07-15-2022 13:17-0500 Diastolic blood pressure 85 mm[Hg] Dr. Moon Rayo Work Phone: [facility] Work Phone: 07-15-2022 13:17-0500 Heart rate 90 /min Dr. Moon Rayo Work Phone: [facility] Work Phone: 07-15-2022 13:17-0500 Respiratory rate 18 /min Dr. Moon Rayo Work Phone: [facility] Work Phone: 07-15-2022 13:17-0500 SaO2% (BldA) [Mass fraction] 95 % Dr. Moon Rayo Work Phone: [facility] Work Phone: 07-15-2022 13:17-0500 Systolic blood pressure 158 mm[Hg] Dr. Moon Rayo Work Phone: [facility] Work Phone: 07-13-2022 09:11-0500 Body temperature 98.3 [degF] Dr. Moon Rayo Work Phone: [facility] Work Phone: 07-13-2022 09:11-0500 Diastolic blood pressure 90 mm[Hg] Dr. Moon Rayo Work Phone: [facility] Work Phone: 07-13-2022 09:11-0500 Heart rate 82 /min Dr. Moon Rayo Work Phone: [facility] Work Phone: 07-13-2022 09:11-0500 Respiratory rate 18 /min Dr. Moon Rayo Work Phone: [facility] Work Phone: 07-13-2022 09:11-0500 SaO2% (BldA) [Mass fraction] 98 % Dr. Moon Rayo Work Phone: [facility] Work Phone: 07-13-2022 09:11-0500 Systolic blood pressure 159 mm[Hg] Dr. Moon Rayo Work Phone: [facility] Work Phone: 07-13-2022 07:02-0500 Body height 162.[address] Moon Rayo Work Phone: [facility] Work Phone: 07-13-2022 07:02-0500 Body mass index (BMI) [Ratio] 43.2 kg/m2 Dr. Moon Rayo Work Phone: [facility] Work Phone: 07-13-2022 07:02-0500 Body weight 114.[address] Moon Rayo Work Phone: [facility] Work Phone: 12-14-2021 18:52-0400 Diastolic blood pressure 74 mm[Hg] Dr. Moon Rayo Work Phone: [facility] Work Phone: 12-14-2021 18:52-0400 Heart rate 100 /min Dr. Moon Rayo Work Phone: [facility] Work Phone: 12-14-2021 18:52-0400 Respiratory rate 20 /min Dr. Moon Rayo Work Phone: [facility] Work Phone: 12-14-2021 18:52-0400 SaO2% (BldA) [Mass fraction] 98 % Dr. Moon Rayo Work Phone: [facility] Work Phone: 12-14-2021 18:52-0400 Systolic blood pressure 115 mm[Hg] Dr. Moon Rayo Work Phone: [facility] Work Phone: 12-14-2021 14:02-0400 Body height 162.[address] Moon Rayo Work Phone: [facility] Work Phone: 12-14-2021 14:02-0400 Body mass index (BMI) [Ratio] 41.7 kg/m2 Dr. Moon Rayo Work Phone: [facility] Work Phone: 12-14-2021 14:02-0400 Body temperature 97.5 [degF] Dr. Moon Rayo Work Phone: [facility] Work Phone: 12-14-2021 14:02-0400 Body weight 110.[address] Moon Rayo Work Phone: [facility] Work Phone: 11-02-2021 08:09-0400 Body mass index (BMI) [Ratio] 41.7 kg/m2 Dr. Moon Rayo Work Phone: [facility] Work Phone: 11-02-2021 08:09-0400 Body temperature 96 [degF] Dr. Moon Rayo Work Phone: [facility] Work Phone: 11-02-2021 08:09-0400 Body weight 110.[address] Moon Rayo Work Phone: [facility] Work Phone: 11-02-2021 08:09-0400 Diastolic blood pressure 80 mm[Hg] Dr. Moon Rayo Work Phone: [facility] Work Phone: 11-02-2021 08:09-0400 Heart rate 81 /min Dr. Moon Rayo Work Phone: [facility] Work Phone: 11-02-2021 08:09-0400 Respiratory rate 18 /min Dr. Moon Rayo Work Phone: [facility] Work Phone: 11-02-2021 08:09-0400 SaO2% (BldA) [Mass fraction] 97 % Dr. Moon Rayo Work Phone: [facility] Work Phone: 11-02-2021 08:09-0400 Systolic blood pressure 124 mm[Hg] Dr. Moon Rayo Work Phone: [facility] Work Phone: Encounters Encounter Date Encounter Type Care Provider Facility Start: 05-29-2025 ambulatory Moon Rayo Facility :[facility] Start: 05-24-2025 End: 05-24-2025 ambulatory Alvin Steele Facility:[facility] [place] Start: 04-18-2025 End: 04-18-[address] Moon Rayo MD [facility] Work Phone: Start: 04-18-2025 End: 04-18-[address] Moon Rayo MD Work Phone: -[facility] Start: 03-04-2025 ambulatory Moon Rayo Facility :[facility] – [place] Start: 02-21-2025 End: 02-21-[address] Moon Rayo MD -[facility] Work Phone: Start: 02-21-2025 End: 02-21-[address] Moon Rayo MD Work Phone: -[facility] Start: 02-18-2025 End: 02-18-[address] Moon aRyo MD -[facility] Work Phone: Start: 02-18-2025 End: 02-18-[address] Moon Rayo MD Work Phone: -[facility] Start: 01-28-2025 End: 01-28-[address] Moon Rayo MD Work Phone: -Physical Therapy Start: 01-28-2025 End: 01-28-[address] Moon Rayo MD -Physical Therapy Work Phone: Start: 01-22-2025 Non-patient / Non-visit Dr. Jojo lin MD -[facility] Work Phone: Start: 09-03-2024 End: 09-03-2024 ambulatory Moon Rayo Facility:[facility] – [place] Start: 08-26-2024 End: 08-26-2024 Emergency department patient visit Moon Rayo Facility:[facility] Start: 07-14-2024 End: 07-14-2024 Emergency department patient visit Moon Rayo Facility:[facility] Start: 05-28-2024 End: 05-28-2024 ambulatory Moon Rayo Facility:[facility] Start: 10-30-2023 End: 10-31-2023 Emergency department patient visit Dr. Moon Rayo Work Phone: [facility] Work Phone: Start: 10-30-2023 End: 10-31-2023 Dr. Moon Rayo Work Phone: [facility]Emergency Department Work Phone: Start: 10-25-2023 End: 10-30-2023 ambulatory MOON RAYO MD Facility:[facility] Start: 10-25-2023 End: 10-29-2023 Outreach Lab MOON RAYO MD [facility] Start: 10-24-2023 End: 10-24-[address] Moon Rayo Work Phone: [facility] Work Phone: Start: 10-24-2023 End: 10-24-2023 Dr. Moon Rayo Work Phone: [facility] [place] Work Phone: Start: 10-12-2023 End: 10-12-2023 Dr. Moon Rayo Work Phone: [facility] Work Phone: Start: 10-04-2023 Dr. Moon Waldrop hner [facility] Phone[facility] Work Phone: Start: 10-03-2023 Dr. Moon Waldrop hner Work Phone: [facility] Start: 09-29-2023 Dr. Moon Waldrop hner Work Phone: [facility] Start: 09-28-2023 Dr. Moon Waldrop hner Work Phone: [facility] Work Phone: Start: 09-27-2023 Dr. Moon Waldrop hner Work Phone: [facility] Work Phone: Start: 09-27-2023 Dr. Moon Waldrop hner Work Phone: [facility] Start: 09-26-2023 End: 09-28-2023 Evaluation and management of inpatient Dr. Moon Rayo Work Phone: [facility] Work Phone: Start: 09-26-2023 End: 09-28-2023 Dr. Moon Rayo Work Phone: [facility] Work Phone: Start: 08-22-2023 End: 08-22-2023 Dr. Moon Rayo Work Phone: [facility] Work Phone: Start: 08-16-2023 Non-patient / Non-visit Dr. Nara Rayo Work Phone: [facility] Work Phone: Start: 08-16-2023 Dr. Moon Waldrop hner Work Phone: [facility] Work Phone: Start: 08-15-2023 Non-patient / Non-visit Dr. Nara Rayo Work Phone: [facility] Work Phone: Start: 08-15-2023 Dr. Moon Waldrop hner Work Phone: [facility] Work Phone: Start: 08-15-2023 Non-patient / Non-visit Dr. Nara Rayo Work Phone: [facility] Start: 08-15-2023 Dr. Moon Waldrop hner Work Phone: [facility] Start: 08-14-2023 Non-patient / Non-visit Dr. Nara Rayo Work Phone: [facility] Work Phone: Start: 08-14-2023 Dr. Moon ochoa Work Phone: [facility] Work Phone: Start: 08-13-2023 End: 08-16-2023 Dr. Moon Rayo Work Phone: [facility] Work Phone: Start: 08-13-2023 End: 08-16-2023 Evaluation and management of inpatient Dr. Moon Rayo Work Phone: [facility] Work Phone: Start: 08-13-[address] Meseret Rayo Work Phone: [facility] Work Phone: Start: 08-01-2023 End: 08-01-[address] Moon Rayo Work Phone: [facility] Work Phone: Start: 08-01-2023 End: 08-01-[address] Moon Rayo [facility] Start: 08-01-2023 End: 08-01-2023 Dr. Moon Rayo [facility] Phone[facility] Start: 07-28-2023 End: 07-28-[address] Moon Rayo Work Phone: [facility] Work Phone: Start: 07-28-2023 End: 07-28-2023 Dr. Moon Rayo Work Phone: [facility] Work Phone: Start: 04-27-2023 End: 04-27-2023 Emergency department patient visit Dr. Moon Rayo Work Phone: [facility] Work Phone: Start: 04-13-2023 Non-patient / Non-visit Dr. Nara Rayo Work Phone: [facility] Start: 04-13-2023 End: 04-13-[address] Moon Rayo Work Phone: [facility] Work Phone: Start: 04-13-2023 End: 04-13-[address] Moon Rayo Work Phone[facility] Work Phone: Start: 04-13-2023 End: 04-13-[address] Moon Rayo Work Phone: [facility] Work Phone: Start: 07-15-2022 End: 07-15-[address] Moon Rayo Work Phone: [facility] Work Phone: Start: 07-15-2022 End: 07-15-[address] Moon Rayo Work Phone: [facility] [place] Start: 07-15-2022 End: 07-15-[address] Moon Rayo Work Phone: [facility] Start: 07-13-2022 End: 07-13-2022 Emergency department patient visit Dr. Moon Rayo Work Phone: [facility] Start: 06-14-2022 Non-patient / Non-visit Dr. Nara Rayo Work Phone: [facility] Start: 12-14-2021 End: 12-14-2021 Emergency department patient visit Dr. Moon Rayo Work Phone: [facility] Start: 11-02-2021 End: 11-02-[address] Moon Rayo Work Phone: [facility] Procedures Date Procedure Procedure Detail Performing Clinician Start: 10-30-2023 CT of head without contrast Dr. Moon Rayo Work Phone: Start: 09-28-2023 CT of head without contrast Dr. Moon Rayo Work Phone: Start: 09-26-2023 Plain chest X-ray Dr. Nitza Rayo Work Phone: Start: 09-26-2023 CT angiography of he ad and neck Dr. Moon Rayo Work Phone: Start: 09-26-2023 CT of head without contrast Dr. Moon Rayo Work Phone: Start: 08-13-2023 End: 08-13-2023 X-ray of both feet Dr. Moon Rayo Work Phone: Start: 08-13-2023 End: 08-13-2023 Plain X-ray of tibia and fibula Dr. Moon Rayo Work Phone: Start: 08-13-[address] Moon Rayo Work Phone: Start: 04-27-2023 Pelvis X-ray Dr. Moon Rayo Work Phone: Start: 04-27-2023 CT of head without contrast Dr. Moon Rayo Work Phone: Start: 07-13-2022 CT cervical spine wi thout contrast Dr. Moon Rayo Work Phone: Start: 07-13-2022 CT of head without contrast Dr. Moon Rayo Work Phone: Start: 12-14-2021 Computed tomography of abdomen and pelvis with contrast Dr. Moon Rayo Work Phone: Plan of Treatment Date Care Activity Detail Author Start: 10-31-2023 [facility] Start: 10-12-2023 Patient referral [facility] Work Phone: Start: 09-28-2023 Patient discharge [facility] Start: 09-27-2023 Thyroid stimulating hormone measurement [facility] Start: 09-27-2023 [facility] Start: 09-26-2023 Measurement of occul t blood in stool specimen using immunoassay [facility] Start: 09-26-2023 Assessment of risk o f venous thromboembolism [facility] Start: 09-26-2023 Cardiac monitoring [facility] Start: 09-26-2023 Catheterization of vein [facility] Start: 09-26-2023 Continuous pulse oximetry [facility] Start: 09-26-2023 Elevation of head of bed [facility] Start: 09-26-2023 Exercises [facility] Start: 09-26-[address] anned interventions [facility] Start: 09-26-2023 Incentive spirometry [facility] Start: 09-26-2023 Insertion of cathete r into peripheral vein [facility] Start: 09-26-2023 Measuring intake and output [facility] Start: 09-26-2023 Notification of physician [facility] Start: 09-26-2023 Oxygen therapy [facility] Start: 09-26-2023 Patient referral to dietitian [facility] Start: 09-26-2023 Providing care accor ding to standard [facility] Start: 09-26-2023 Provision of activit y privileges [facility] Start: 09-26-2023 Referral to occupati onal therapist [facility] Start: 09-26-2023 Referral to service [facility] Start: 09-26-2023 End: 09-26-2023 Speech therapy assessment [facility] Start: 09-26-2023 Telemedicine consult ation with patient [facility] Start: 09-26-2023 Tobacco use cessatio n education [facility] Start: 09-26-2023 [facility] Start: 09-26-2023 Vital signs measurements [facility] Start: 09-26-2023 MRI of brain without contrast [facility] Start: 09-26-2023 Following clinical p athway protocol [facility] Start: 09-26-2023 Verification routine [facility] Start: 09-26-2023 Admission procedure [facility] Start: 08-16-2023 Referral to service [facility] Start: 08-16-2023 Patient discharge [facility] Start: 08-14-2023 Thyroid stimulating hormone measurement [facility] Start: 08-14-2023 [facility] Start: 08-13-2023 Following clinical p athway protocol [facility] Start: 08-13-2023 Assessment of risk o f venous thromboembolism [facility] Start: 08-13-2023 Contact precautions [facility] Start: 08-13-2023 Insertion of cathete r into peripheral vein [facility] Start: 08-13-2023 Measuring intake and output [facility] Start: 08-13-2023 Oxygen therapy [facility] Start: 08-13-2023 Providing care accor ding to standard [facility] Start: 08-13-2023 Provision of activit y privileges [facility] Start: 08-13-2023 Referral to occupati onal therapist [facility] Start: 08-13-2023 Referral to service [facility] Start: 08-13-2023 [facility] Start: 08-13-2023 Verification routine [facility] Start: 08-13-2023 Admission procedure [facility] Start: 08-13-2023 [facility] Start: 08-13-2023 Bacteria identified in Urine by Culture [facility] Start: 08-13-2023 Patient referral to dietitian [facility] Start: 04-27-2023 Simple repair scalp/neck/ax/genit/trunk 2.5cm/< RPR S/N/AX/GEN/TRNK 2.5CM/< [facility] Start: 04-13-2023 Patient referral [facility] Work Phone: Alanine aminotransfe rase [Enzymatic activity/volume] in Serum or Plasma [facility] Alanine aminotransfe rase [Enzymatic activity/volume] in Serum or Plasma [facility] Albumin [Mass/volume ] in Serum or Plasma [facility] Albumin [Mass/volume ] in Serum or Plasma [facility] Alkaline phosphatase [Enzymatic activity/volume] in Serum or Plasma [facility] Alkaline phosphatase [Enzymatic activity/volume] in Serum or Plasma [facility] Anion gap measurement [facility] Anion gap measurement [facility] Aspartate aminotrans ferase [Enzymatic activity/volume] in Serum or Plasma [facility] Aspartate aminotrans ferase [Enzymatic activity/volume] in Serum or Plasma [facility] Bilirubin, total measurement [facility] Bilirubin, total measurement [facility] BUN/Creatinine ratio [facility] BUN/Creatinine ratio [facility] C reactive protein [Mass/volume] in Serum or Plasma [facility] Calcium [Mass/volume ] in Serum or Plasma [facility] Calcium [Mass/volume ] in Serum or Plasma [facility] Carbon dioxide, tota l [Moles/volume] in Serum or Plasma [facility] Carbon dioxide, tota l [Moles/volume] in Serum or Plasma [facility] Cardiac event recording [facility] Chloride [Moles/volu me] in Serum or Plasma [facility] Chloride [Moles/volu me] in Serum or Plasma [facility] Cholesterol [Mass/vo lume] in Serum or Plasma [facility] Cholesterol in HDL [Mass/volume] in Serum or Plasma [facility] Cholesterol in LDL [Mass/volume] in Serum or Plasma [facility] Creatinine [Moles/vo lume] in Serum or Plasma [facility] Creatinine [Moles/vo lume] in Serum or Plasma [facility] Erythrocyte mean cor puscular volume determination [facility] Erythrocyte mean cor puscular volume determination [facility] Erythrocyte sediment ation rate [facility] Ferritin [Mass/volum e] in Serum or Plasma [facility] Glucose [Mass/volume ] in Serum or Plasma [facility] Glucose [Mass/volume ] in Serum or Plasma [facility] Hematocrit [Volume F raction] of Blood [facility] Hematocrit [Volume F raction] of Blood [facility] Hemoglobin [Mass/vol ume] in Blood [facility] Hemoglobin [Mass/vol ume] in Blood [facility] Hemoglobin A1c/Hemoglobin.total in Blood [facility] Iron [Mass/mass] in Unspecified specimen [facility] Iron and Iron bindin g capacity panel - Serum or Plasma [facility] Iron saturation [Mas s Fraction] in Serum or Plasma [facility] Leukocytes [#/volume ] in Blood [facility] Leukocytes [#/volume ] in Blood [facility] Magnesium [Mass/volu me] in Serum or Plasma [facility] Magnesium [Mass/volu me] in Serum or Plasma [facility] Mean corpuscular hem oglobin concentration determination [facility] Mean corpuscular hem oglobin concentration determination [facility] Mean corpuscular hem oglobin determination [facility] Mean corpuscular hem oglobin determination [facility] Measurement of renal function [facility] Measurement of renal function [facility] Neutrophil count [facility] Neutrophil count [facility] Neutrophil percent differential count [facility] Neutrophil percent differential count [facility] Patient Education [facility] Work Phone: Patient referral [facility] Work Phone: Platelets [#/volume] in Blood [facility] Platelets [#/volume] in Blood [facility] Potassium [Moles/vol ume] in Serum or Plasma [facility] Potassium [Moles/vol ume] in Serum or Plasma [facility] Red blood cell count [facility] Red blood cell count [facility] Red cell distributio n width determination [facility] Red cell distributio n width determination [facility] Serum inorganic phos phate measurement [facility] Serum inorganic phos phate measurement [facility] Sodium [Moles/volume ] in Serum or Plasma [facility] Sodium [Moles/volume ] in Serum or Plasma [facility] Total protein measurement [facility] Total protein measurement [facility] Triglycerides measurement [facility] Urea nitrogen [Mass/ volume] in Serum or Plasma [facility] Urea nitrogen [Mass/ volume] in Serum or Plasma [facility] VLDL cholesterol measurement [facility] Immunizations Immunization Date Immunization Notes Care Provider [facility] 07-13-2022 tetanus toxoid, redu weston diphtheria toxoid, and acellular pertussis vaccine, adsorbed Dr. Moon Rayo Work Phone: [facility] 01-05-2022 tetanus toxoid, redu weston diphtheria toxoid, and acellular pertussis vaccine, adsorbed Dr. Moon Rayo Work Phone: [facility] 07-09-2021 Covid (Moderna) Dr. Moon brandon Work Phone: [facility] 06-04-[address] Moon Rayo Work Phone: [facility] 02-09-[address] Moon Rayo Work Phone: [facility] 12-12-2020 Covid (Moderna) Dr. Moon brandon Work Phone: [facility] 11-14-2020 Covid (Moderna) Dr. Moon brandon Work Phone: [facility] 04-23-2020 influenza, injectabl e, quadrivalent, preservative free Dr. Moon Rayo Work Phone: [facility] 04-23-2020 influenza, seasonal, injectable Dr. Moon Rayo Work Phone: [facility] Work Phone: 04-23-2020 Seasonal, quadrivale nt, recombinant, injectable influenza vaccine, preservative free Dr. Moon Rayo Work Phone: [facility] 04-23-2020 Fluad Quad (65yr up)(PF) 60 mcg (15 mcg x 4)/0.5mL IM syringe (flu vac Dr. Moon aRyo Work Phone: [facility] Work Phone: 04-30-2019 Influenza, high dose seasonal Dr. Moon Rayo MD Work Phone: [facility] 04-30-2019 influenza, high dose seasonal, preservative-free Dr. Moon Rayo Work Phone: [facility] Payers Date Payer Category Payer Unknown [id number] 2024 Unknown [id number] 2023 Self-pay [id number] Unknown [id number] 2.16.8 [id number] Medicaid [id number] Medicare [id number] Medicare [id number] Unknown [id number] Unknown [id number] 2.16.8 [id number] Unknown [id number] 2.16.8 [id number] Unknown [id number] 2.16.8 [id number] Unknown [id number] 2.16.8 [id number] Unknown [id number] 2.16.8 [id number] Unknown [id number] 2.16.8 [id number] Unknown [id number] 2.16.8 [id number] Unknown [id number] 2.16.8 [id number] Unknown [id number] 2.16.8 [id number] Unknown [id number] 2.16.8 [id number] Unknown [id number] 2.16.8 [id number] Unknown [id number] 2.16.8 [id number] Social History Date Type Detail Facility Start: 12-14-2021 End: 10-30-2023 Tobacco smoking status NHIS Unknown if ever smoked [facility] Start: 09-24-2020 None [facility] Start: 09-24-2020 Alone [facility] Start: 12-01-2020 Cigarettes [facility] Start: 1945 Sex Assigned At Female W [facility] Tobacco smoking status No Smokin g Status Entered [facility] Start: 08-31-2024 Tobacco smoking stat us COIS Ex-smoker (finding) [facility] Sex Female [facility] Medical Equipment Procedure Code Equipment Code Equipment Origin al Text Equipment Identifier Dates Total knee replacement CEMENT,HV SIMPLEX FDA Start: 01-02-2019 Total knee replacement CEMENT,HV SIMPLEX FDA Start: 01-02-2019 Total knee replacement CRUCIATE RETAINING FEMORAL FDA Start: 01-02-2019 Total knee replacement TIBIAL BASEPLATE FDA Start: 01-02-2019 Total knee replacement TIBIAL BEARING INSERT FDA Start: 01-02-2019 Total knee replacement TRIATHLON X3 PATELLA FDA Start: 01-02-2019 Total knee replacement CEMENT,HV SIMPLEX FDA Start: 01-02-2019 Total knee replacement CEMENT,HV SIMPLEX FDA Start: 01-02-2019 Total knee replacement CRUCIATE RETAINING FEMORAL FDA Start: 01-02-2019 Total knee replacement TIBIAL BASEPLATE FDA Start: 01-02-2019 Total knee replacement TIBIAL BEARING INSERT FDA Start: 01-02-2019 Total knee replacement TRIATHLON X3 PATELLA FDA Start: 01-02-2019 Total knee replacement CEMENT,HV SIMPLEX FDA Start: 01-02-2019 Total knee replacement CEMENT,HV SIMPLEX FDA Start: 01-02-2019 Total knee replacement CRUCIATE RETAINING FEMORAL FDA Start: 01-02-2019 Total knee replacement TIBIAL BASEPLATE FDA Start: 01-02-2019 Total knee replacement TIBIAL BEARING INSERT FDA Start: 01-02-2019 Total knee replacement TRIATHLON X3 PATELLA FDA Start: 01-02-2019 Total knee replacement CEMENT,HV SIMPLEX FDA Start: 01-02-2019 Total knee replacement CEMENT,HV SIMPLEX FDA Start: 01-02-2019 Total knee replacement CRUCIATE RETAINING FEMORAL FDA Start: 01-02-2019 Total knee replacement TIBIAL BASEPLATE FDA Start: 01-02-2019 Total knee replacement TIBIAL BEARING INSERT FDA Start: 01-02-2019 Total knee replacement TRIATHLON X3 PATELLA FDA Start: 01-02-2019 Total knee replacement CEMENT,HV SIMPLEX FDA Start: 01-02-2019 Total knee replacement CEMENT,HV SIMPLEX FDA Start: 01-02-2019 Total knee replacement CRUCIATE RETAINING FEMORAL FDA Start: 01-02-2019 Total knee replacement TIBIAL BASEPLATE FDA Start: 01-02-2019 Total knee replacement TIBIAL BEARING INSERT FDA Start: 01-02-2019 Total knee replacement TRIATHLON X3 PATELLA FDA Start: 01-02-2019 Total knee replacement CEMENT,HV SIMPLEX FDA Start: 01-02-2019 Total knee replacement CEMENT,HV SIMPLEX FDA Start: 01-02-2019 Total knee replacement CRUCIATE RETAINING FEMORAL FDA Start: 01-02-2019 Total knee replacement TIBIAL BASEPLATE FDA Start: 01-02-2019 Total knee replacement TIBIAL BEARING INSERT FDA Start: 01-02-2019 Total knee replacement TRIATHLON X3 PATELLA FDA Start: 01-02-2019 Total knee replacement CEMENT,HV SIMPLEX FDA Start: 01-02-2019 Total knee replacement CEMENT,HV SIMPLEX FDA Start: 01-02-2019 Total knee replacement CRUCIATE RETAINING FEMORAL FDA Start: 01-02-2019 Total knee replacement TIBIAL BASEPLATE FDA Start: 01-02-2019 Total knee replacement TIBIAL BEARING INSERT FDA Start: 01-02-2019 Total knee replacement TRIATHLON X3 PATELLA FDA Start: 01-02-2019 Total knee replacement CEMENT,HV SIMPLEX FDA Start: 01-02-2019 Total knee replacement CEMENT,HV SIMPLEX FDA Start: 01-02-2019 Total knee replacement CRUCIATE RETAINING FEMORAL FDA Start: 01-02-2019 Total knee replacement TIBIAL BASEPLATE FDA Start: 01-02-2019 Total knee replacement TIBIAL BEARING INSERT FDA Start: 01-02-2019 Total knee replacement TRIATHLON X3 PATELLA FDA Start: 01-02-2019 Total knee replacement FDA Start: 01-02-2019 Total knee replacement FDA Start: 01-02-2019 Total knee replacement FDA Start: 01-02-2019 Total knee replacement FDA Start: 01-02-2019 Total knee replacement FDA Start: 01-02-2019 Total knee replacement FDA Start: 01-02-2019 Total knee replacement FDA Start: 01-02-2019 Total knee replacement FDA Start: 01-02-2019 Total knee replacement FDA Start: 01-02-2019 Total knee replacement FDA Start: 01-02-2019 Total knee replacement FDA Start: 01-02-2019 Total knee replacement FDA Start: 01-02-2019 Total knee replacement FDA Start: 01-02-2019 Total knee replacement FDA Start: 01-02-2019 Total knee replacement FDA Start: 01-02-2019 Total knee replacement FDA Start: 01-02-2019 Total knee replacement FDA Start: 01-02-2019 Total knee replacement FDA Start: 01-02-2019 Total knee replacement FDA Start: 01-02-2019 Total knee replacement FDA Start: 01-02-2019 Total knee replacement FDA Start: 01-02-2019 Total knee replacement FDA Start: 01-02-2019 Total knee replacement FDA Start: 01-02-2019 Total knee replacement FDA Start: 01-02-2019 Total knee replacement CEMENT,HV SIMPLEX FDA Start: 01-02-2019 Total knee replacement CEMENT,HV SIMPLEX FDA Start: 01-02-2019 Total knee replacement CRUCIATE RETAINING FEMORAL FDA Start: 01-02-2019 Total knee replacement TIBIAL BASEPLATE FDA Start: 01-02-2019 Total knee replacement TIBIAL BEARING INSERT FDA Start: 01-02-2019 Total knee replacement TRIATHLON X3 PATELLA FDA Start: 01-02-2019 Total knee replacement CEMENT,HV SIMPLEX FDA Start: 01-02-2019 Total knee replacement CEMENT,HV SIMPLEX FDA Start: 01-02-2019 Total knee replacement CRUCIATE RETAINING FEMORAL FDA Start: 01-02-2019 Total knee replacement TIBIAL BASEPLATE FDA Start: 01-02-2019 Total knee replacement TIBIAL BEARING INSERT FDA Start: 01-02-2019 Total knee replacement TRIATHLON X3 PATELLA FDA Start: 01-02-2019 Total knee replacement CEMENT,HV SIMPLEX FDA Start: 01-02-2019 Total knee replacement CEMENT,HV SIMPLEX FDA Start: 01-02-2019 Total knee replacement CRUCIATE RETAINING FEMORAL FDA Start: 01-02-2019 Total knee replacement TIBIAL BASEPLATE FDA Start: 01-02-2019 Total knee replacement TIBIAL BEARING INSERT FDA Start: 01-02-2019 Total knee replacement TRIATHLON X3 PATELLA FDA Start: 01-02-2019 Total knee replacement CEMENT,HV SIMPLEX FDA Start: 01-02-2019 Total knee replacement CEMENT,HV SIMPLEX FDA Start: 01-02-2019 Total knee replacement CRUCIATE RETAINING FEMORAL FDA Start: 01-02-2019 Total knee replacement TIBIAL BASEPLATE FDA Start: 01-02-2019 Total knee replacement TIBIAL BEARING INSERT FDA Start: 01-02-2019 Total knee replacement TRIATHLON X3 PATELLA FDA Start: 01-02-2019 Insertion, spinal cord stimulator, permanent 60CM LEAD KIT FDA Start: 07-04-2020 Insertion, spinal cord stimulator, permanent 60CM LEAD KIT FDA Start: 07-04-2020 Insertion, spinal cord stimulator, permanent INTELLIS ADAPTIVE STIM FDA Start: 07-04-2020 Insertion, spinal cord stimulator, permanent 60CM LEAD KIT FDA Start: 07-04-2020 Insertion, spinal cord stimulator, permanent 60CM LEAD KIT FDA Start: 07-04-2020 Insertion, spinal cord stimulator, permanent INTELLIS ADAPTIVE STIM FDA Start: 07-04-2020 Insertion, spinal cord stimulator, permanent 60CM LEAD KIT FDA Start: 07-04-2020 Insertion, spinal cord stimulator, permanent 60CM LEAD KIT FDA Start: 07-04-2020 Insertion, spinal cord stimulator, permanent INTELLIS ADAPTIVE STIM FDA Start: 07-04-2020 Insertion, spinal cord stimulator, permanent 60CM LEAD KIT FDA Start: 07-04-2020 Insertion, spinal cord stimulator, permanent 60CM LEAD KIT FDA Start: 07-04-2020 Insertion, spinal cord stimulator, permanent INTELLIS ADAPTIVE STIM FDA Start: 07-04-2020 Insertion, spinal cord stimulator, permanent 60CM LEAD KIT FDA Start: 07-04-2020 Insertion, spinal cord stimulator, permanent 60CM LEAD KIT FDA Start: 07-04-2020 Insertion, spinal cord stimulator, permanent INTELLIS ADAPTIVE STIM FDA Start: 07-04-2020 Insertion, spinal cord stimulator, permanent 60CM LEAD KIT FDA Start: 07-04-2020 Insertion, spinal cord stimulator, permanent 60CM LEAD KIT FDA Start: 07-04-2020 Insertion, spinal cord stimulator, permanent INTELLIS ADAPTIVE STIM FDA Start: 07-04-2020 Insertion, spinal cord stimulator, permanent 60CM LEAD KIT FDA Start: 07-04-2020 Insertion, spinal cord stimulator, permanent 60CM LEAD KIT FDA Start: 07-04-2020 Insertion, spinal cord stimulator, permanent INTELLIS ADAPTIVE STIM FDA Start: 07-04-2020 Insertion, spinal cord stimulator, permanent 60CM LEAD KIT FDA Start: 07-04-2020 Insertion, spinal cord stimulator, permanent 60CM LEAD KIT FDA Start: 07-04-2020 Insertion, spinal cord stimulator, permanent INTELLIS ADAPTIVE STIM FDA Start: 07-04-2020 Insertion, spinal cord stimulator, permanent FDA Start: 07-04-2020 Insertion, spinal cord stimulator, permanent FDA Start: 07-04-2020 Insertion, spinal cord stimulator, permanent FDA Start: 07-04-2020 Insertion, spinal cord stimulator, permanent FDA Start: 07-04-2020 Insertion, spinal cord stimulator, permanent FDA Start: 07-04-2020 Insertion, spinal cord stimulator, permanent FDA Start: 07-04-2020 Insertion, spinal cord stimulator, permanent FDA Start: 07-04-2020 Insertion, spinal cord stimulator, permanent FDA Start: 07-04-2020 Insertion, spinal cord stimulator, permanent FDA Start: 07-04-2020 Insertion, spinal cord stimulator, permanent FDA Start: 07-04-2020 Insertion, spinal cord stimulator, permanent FDA Start: 07-04-2020 Insertion, spinal cord stimulator, permanent FDA Start: 07-04-2020 Insertion, spinal cord stimulator, permanent 60CM LEAD KIT FDA Start: 07-04-2020 Insertion, spinal cord stimulator, permanent 60CM LEAD KIT FDA Start: 07-04-2020 Insertion, spinal cord stimulator, permanent INTELLIS ADAPTIVE STIM FDA Start: 07-04-2020 Insertion, spinal cord stimulator, permanent 60CM LEAD KIT FDA Start: 07-04-2020 Insertion, spinal cord stimulator, permanent 60CM LEAD KIT FDA Start: 07-04-2020 Insertion, spinal cord stimulator, permanent INTELLIS ADAPTIVE STIM FDA Start: 07-04-2020 Insertion, spinal cord stimulator, permanent 60CM LEAD KIT FDA Start: 07-04-2020 Insertion, spinal cord stimulator, permanent 60CM LEAD KIT FDA Start: 07-04-2020 Insertion, spinal cord stimulator, permanent INTELLIS ADAPTIVE STIM FDA Start: 07-04-2020 Insertion, spinal cord stimulator, permanent 60CM LEAD KIT FDA Start: 07-04-2020 Insertion, spinal cord stimulator, permanent 60CM LEAD KIT FDA Start: 07-04-2020 Insertion, spinal cord stimulator, permanent INTELLIS ADAPTIVE STIM FDA Start: 07-04-2020 Goals Date Patient Goal Desired Activity /State Functional Status Date Assessment Result Facility 09-28-2023 Functional status Bedrest [facility] Work Phone: 08-16-2023 Functional status Chair [facility] Work Phone: 08-16-2023 Functional status With Assist of 2 [facility] Work Phone: Mental Status Date Assessment Result Facility 10-30-2023 Cognitive function Awake;Alert;A ppropriate;Follow s Commands [facility] Work Phone: 09-28-2023 Cognitive function Voice/Name [facility] Work Phone: 09-26-2023 Cognitive function Voice/Name [facility] Work Phone: 08-16-2023 Cognitive function Voice/Name [facility] Work Phone: 08-13-2023 Cognitive function Level Of Cons ciousness Awake;Alert;Appropriate;Follow s Commands [facility] Work Phone: Clinical Notes 09-16-2020 to 04-18-2025 Note Date & Type Note Facility 04-18-2025 Progress note [facility] 02-18-2025 Evaluation note Diagnosis Onset Date Resolution Bilateral lower extremity edema acute February 18, 2025 1:25pm Subconjunctival hemorrhage acute February 18, 2025 1:25pm Cellulitis resolved February 18 1:25pm [facility] Work Phone: 1(877) 112-816607-28-2025 Evaluation note* Diagnosis Onset Date Resolution Status Admit Date Bilateral lower extremity edema acute February 18, 2025 1:25pm Subconjunctival hemorrhage acute February 18, 2025 1:25pm Cellulitis resolved February 18 1:25pm Bilateral lower extremity edema acute February 21, 2025 9:26am Cellulitis resolved February 21 9:26am Bilateral occipital neuralgia acute April 18, 2025 9:21am Neck pain noneactive March 9:21am [facility] Work Phone: 1(857) 624-596307-07-2025 Discharge summary [facility] Physical Therapy [address] [place] [address] / REHABILITATION SERVICES DISCHARGE SUMMARY MR#: [id number] Acct: [id number] Name: VANESSA HERNANDEZ Rep #: [id number] : 1945 79 From: Dulce Maria An Referring Dr.: Dr. Moon Rayo MD Status: REG RCR Insurance: [employer]URANCE Discharge Summary D/C summary: It has been my pleasure to treat VANESSA HERNANDEZ referred by Dr. Moon Rayo MD,with the diagnosis of DDD R hip, balance issue, freq falls, gait dysfunction fora total of 5 visit(s). Discharge Date: 01/28/25 Please see the following information for a summary of their discharge status. Subjective Subjective: Pt feels that PT is going fairly well. She still fall back with EC. She reports that the machines sometimes bother her shoulder. She does not feelthat she needs additional therapy. She has had no falls. She has a girl that helps her at her house. She is able to bath and dress herself. Pain Hips: Pain Intensity (Out of 10): 0 Shoulders: Pain Intensity (Out of 10): 0 Back: Pain Intensity (Out of 10): 0 Overall Improvement % Improvement: 90 Objective Objective/Function: Gait: walked back to the treatment room from the waiting room and was SOB and took some time to recover LE MMT: R hip flex 12.2 and L 10.2 R knee ext 17.7 and L 16.7 R knee flex 15.9 and L 14.8 Pt is able to walk 2 laps around dept with rollator and needed to stop and rest for 20 seconds twice and was SOB after and took a few min to recover. Standing with EC X 6- 8 seconds Goals Goal 1:: I HEP Goal Progress: Goal Met Goal 2:: Increase LE strength (at the time of the eval: LE MMT: R hip flex 5.7 and L 5.7 R knee ext 7.2 and L 8.4 R knee flex 6.2 and L 5.7). Goal Progress: Goal Met Goal 3:: Be able to side step without UE support but CGA length of // bars to beable to work aroundher kitchen Goal Progress: Goal Met Goal 4:: Be able to stand with EC X 10 seconds with no LOB Goal Progress: Not Progressing Goal 5:: Be able to walk 2 laps with rollator without SOB Goal Progress: Progressing Plan Plan: DC PT D/C Information Discharge Comments: DC PT to HEP d/c sentence: If there are questions or concerns regarding this patient's physical therapy, please feel free to call me at [phone]. Thank you for the referral of thispatient. Sincerely, Dulce Maria Lance, MPT Balance/Gait/Functional tests Balance/Special Test Scores Lower Extremity Functional Score: 44 Improvement % Improvement: 90 01/28/25 0958 CC: Dr. Moon Rayo MD ~ Signed [facility]04-07-2024 Discharge summary Author Cam Delgado [facility] October 31, 2023 12:53am Note Date/Time October 30, 2023 11:2 7pm [facility] Medical Records Department [address] [place] [address] Emergency Department Summary 10/30/23 MR#: [id number] Acct: [id number] Name: VANESSA HERNANDEZ Rep #:[id number] : 1945 78 From: Cam Delgado MD PCP: Dr. Moon Rayo MD Status:REG ER Location: ED HPI HPI - Fall History of Present Illness Chief Complaint: Fall Informant: patient and EMS Narrative Narrative: 78-year-old female lives at home alone using a walker, states that she was usingit walking in her house and she tripped on edge of a rug, causing her to fall tothe floor and hit her head/face. She also injured her left great toe and deniesany other injury. After falling, she did not lose consciousness but then started feeling lightheaded/dizzy. She is not able to get up on her own, she states she normally is not able to due to being dependent on the walker. She called EMS for that reason, but she is on clopidogrel because of having a strokelast month, having residual speech deficits, no changes there according to her but they brought her because of those facts. She denies having headache she is a little nauseated. She states she has chronic pain in her shoulders but no different and no injury there. [facility] Medical History Abdominal pain Anxiety Asthma Chronic back pain Chronic bronchitis Chronic headaches Confusion Dark stools DDD (degenerative disc disease) Depression Essential (primary) hypertension Frequent falls Generalized weakness GERD (gastroesophageal reflux disease) H/O emotional problems Hyperlipidemia Hypokalemia IBS (irritable bowel syndrome) Insomnia Iron deficiency anemia Left-sided chest wall pain Localized swelling of chest wall Microcytic anemia Migraines Neuropathy Non-smoker Obesity Osteoarthritis Osteoarthritis of left knee Overactive bladder Pneumonia Rheumatoid arthritis Stroke/cerebrovascular accident TIA (transient ischemic attack) Vision problems Vitamin D deficiency Home Medications acetaminophen 500 mg tablet 1,000 mg (2 x 500 mg) PO Q6H PRN PRN Mild Pain (- 10/01) #90 tabs 02/07/19 [Rx Last Taken 08/12/23 16:15 1,000 mg] cholecalciferol (vitamin D3) 50 mcg (2,000 unit) capsule 4,000 unit PO DAILY SUPPLEMENT 09/10/19 [History Last Taken 09/24/20] biotin 2,500 mcg capsule 1 cap PO DAILY supplement 09/24/20 [History Last Taken 09/24/20] multivitamin with minerals 1 tab PO DAILY supplement 09/24/20 [History Last Taken 09/24/20] sumatriptan succinate 25 mg tablet See Rx Instructions PO .COMPLEX #14 tabs 06/14/22 [Rx Last Taken Unknown] sumatriptan succinate 6 mg/0.5 mL subcutaneous pen injector (Imitrex STATdose Pen) 6 mg (0.5 mL) subcut Q1-4H PRN migraine headache #1 mL 06/14/22 [Rx Last Taken Unknown] side rails for bed #1 ea 07/15/22 [Rx Last Taken Unknown] walker (Ultra-Light Rollator misc) #1 ea 08/23/22 [Rx Last Taken Unknown] omeprazole 40 mg capsule,delayed release 40 mg PO DAILY stomach #90 caps 02/21/23 [Rx Last Taken Unknown] gabapentin 100 mg capsule 100 mg PO Q12H neuropathy 09/26/23 [History Last Taken Unknown] aspirin 81 mg chewable tablet 81 mg PO BREAKFAST #0 tabs 09/28/23 [Rx Last Taken Unknown] ferrous sulfate 325 mg (65 mg iron) tablet (FeroSul) 325 mg PO QODAY@LUNCH #0 tabs 09/28/23 [Rx Last Taken Unknown] atorvastatin 40 mg tablet 40 mg PO QHS #90 tabs 10/21/23 [Rx Last Taken Unknown] clopidogrel 75 mg tablet 75 mg PO DAILY #90 tabs 10/21/23 [Rx Last Taken Unknown] ropinirole 0.5 mg tablet 0.5 mg PO QHS restless legs #90 tabs 10/21/23 [Rx Last Taken Unknown] sertraline 100 mg tablet 200 mg (2 x 100 mg) PO DAILY mood #180 tabs 10/21/23 [Rx Last Taken Unknown] colchicine 0.6 mg tablet 0.6 mg PO DAILY #2 tabs 10/24/23 [Rx Last Taken Unknown] Allergy/AdvReac Type Severity Reaction Status Date / Time adhesive tape Allergy Severe Area Sore Verified 10/24/23 13:55 cefpodoxime [From Vantin] Allergy Unknown Unknown Verified 10/24/23 13:55 codeine Allergy Unknown Unknown Verified 10/24/23 13:55 metronidazole [From Flagyl] Allergy Unknown Unknown Verified 10/24/23 13:55 sulfamethoxazole Allergy Unknown Unknown Verified 10/24/23 13:55 [From Bactrim] trimethoprim [From Bactrim] Allergy Unknown Unknown Verified 10/24/23 13:55 Sulfa (Sulfonamide Allergy Unknown Verified 10/24/23 13:55 Antibiotics) Family History Sister Anesthesia complication Breast cancer Hypertension Cancer Thyroid, rectal, kidney Thyroid disorder Diabetes Mother Arthritis Pancreatic cancer Depression Diabetes Father Colon cancer Hypertension CVA (cerebral vascular accident) Sister Cancer rectal/kidney/medullary Thyroid cancer Surgical History History of appendectomy History of back surgery History of History of cholecystectomy History of gastric surgery History of hernia repair History of hysterectomy History of left heart catheterization (10/14/20) History of left knee replacement History of right knee joint replacement 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 History of total right knee replacement Hx of breast reduction, elective Social History household members: none housing: apartment current occupational status: retired Smoking Status: Never smoker alcohol intake: never substance use type: does not use what type of physical activity do you participate in: none ROS ROS ED Constitutional Constitutional ED: Denies chills or fever(s) Eyes Eyes: Denies change in vision or diplopia ENT ENT ED: Reports facial pain; Denies ear pain, epistaxis or rhinorrhea Cardiovascular Cardiovascular: Reports lightheadedness; Denies chest pain, palpitations or syncope Respiratory/Chest Respiratory/Chest: Denies cough or dyspnea Gastrointestinal Gastrointestinal: Reports nausea; Denies abdominal pain, diarrhea, melena or vomiting Genitourinary Genitourinary ED: Denies dysuria or hematuria Musculoskeletal Musculoskeletal: Reports as per HPI and extremity pain; Denies back pain or neckpain Integumentary Reports Abrasions; Denies abscess, laceration or rash Neurologic Neurologic: Denies confusion, headache(s), paresthesias or weakness EXAM Physical Exam Const Vital Signs: 10/30/23 23:06 Temperature 97.7 F L Temperature Source Temporal Pulse Rate 95 Respiratory Rate 18 Blood Pressure 151/85 H Blood Pressure Mean 107 Pulse Ox 97 Oxygen Delivery Method Room Air Positive well nourished, well developed and obese General Appearance ED: well developed and NAD Nutritional Appearance: obese HEENT Reports TM's clear and nasal mucous membranes and turbinates normal HEENT Narrative: Multiple small contusions on the face, there is one near the patient's philtrum,a little to the right of it and there is a mucosal abrasion opposite this but nolacerations that need repaired. There is also a small contusion on the right bottom lip vermilion without any lacerations or mucosal lesions. She has on dentures her gums are atraumatic. There is a contusion to the left nasal bridge, there is no deformity to the nose or crepitance, or epistaxis. There isalso contusion with a very small hematoma mid right mid forehead without crepitance or depression. No other signs of head trauma. No Ortega sign. No periorbital ecchymosis. No CSF otorhinorrhea. Face and Sinus: facial tenderness Tympanic Membrane ED: Yes TM's clear Eyes PERRL and EOMs intact bilaterally Visual Acuity: other Other Details: no entrapment or pain with extraocular movements Neck full ROM and supple General: Negative for tenderness Chest Wall inspection of chest normal and palpation of chest normal Chest: symmetrical chest wall rise; Negative for crepitus or tenderness Resp normal respiratory effort and clear to auscultation bilaterally Percussion: other equal BS bilat Cardio no murmurs Rate: regular rate Rhythm: regular rhythm GI normal to inspection, nondistended, normoactive bowel sounds, soft to palpation and non-tender Back/Spine normal ROM Cervical Spine: Negative for cervical spine tenderness Thoracic Spine / Upper Back: Negative for thoracic spinal tenderness Lumbar Spine / Lower Back: Negative for lumbar spinal tenderness Extremity normal to inspection and full ROM Extremity Narrative: Limited range of motion of both shoulders, patient states she is at baseline anddoes not feel like they are injured. Full range of motion of all other joints. Mild tenderness at the left great toe where there is an abrasion dorsally at theIPJ. General Extremety ED: Yes tenderness Neuro oriented x3, CN's II-XII intact bilaterally, moves all extremities and no focal motor deficits Neuro Narrative: Chronic decree sensation both feet at baseline according to patient. Symmetric. Harinder Coma Scale: document GCS findings Spontaneous Obeys Commands Oriented 15 Sensorium / Orientation: awake and alert Psych mental status grossly normal and thought process normal Skin no wounds Lesions: no lesions Rashes: no rashes Trauma: abrasion MDM MDM MDM Narrative Medical decision making narrative: CT of the head was obtained in order to rule out intracranial injury, I reviewedthe images and report which I agree with, negative for anything acute. Patient refused x-rays of her left foot. We cleansed and dressed that abrasion. I am at a low suspicion for fracture but she is tender at that toe. Facial abrasions/contusions were cleansed and dressed as appropriate, there is nothing to repair, the small abrasion on the mucosal side of her upper lip does not require repair. Patient is able to stand and ambulate with assistance, we will do what we can to get her home. Radiography Diagnostic Testing: Clinical Impression(s) from Imaging Studies Brain CT 10/30/23 23:20 IMPRESSION: 1. No acute intracranial abnormalities. 2. Age-related changes. Electronically Signed: Kacy Eid MD at 0:34 EDT , Discharge Plan Triage Chief Complaint: Fall ED Provider: Cam Delgado Dx/Rx/DC Orders Clinical Impression: Abrasion of great toe of left foot, Fall from slip, trip, or stumble, Contusionof face, Abrasion of face, Closed head injury without loss of consciousness Instructions: ED Head Injury (Adult) Prescriptions: No Action cholecalciferol (vitamin D3) 50 mcg (2,000 unit) capsule 4,000 unit PO DAILY colchicine 0.6 mg tablet 0.6 mg PO DAILY Qty: 2 0RF Rx Instructions: One tab now and one tab 6 hours later. multivitamin with minerals 1 EACH tablet 1 tab PO DAILY biotin 2,500 MCG capsule 1 cap PO DAILY gabapentin 100 mg capsule 100 mg PO Q12H Rx Instructions: Take one capsule (100 mg) each PM for one week, then increase to one capsule (100 mg) twice daily. ferrous sulfate [FeroSul] 325 mg (65 mg iron) Tablet 325 mg PO QODAY@LUNCH Qty: 0 0RF aspirin 81 mg Tablet,Chewable 81 mg PO BREAKFAST Qty: 0 0RF acetaminophen 500 mg tablet 1,000 mg PO Q6H PRN PRN (Reason: Mild Pain (-10/01)) Qty: 90 0RF sumatriptan succinate 25 mg tablet See Rx Instructions PO .COMPLEX Qty: 14 1RF Rx Instructions: take 1 tab at onset of headache; if no relief may repeat 1 tab after at least2 hrs; max = 4 tabs/24 hr PO sumatriptan succinate [Imitrex STATdose Pen] 6 mg/0.5 mL pen injector 6 mg subcut Q1-4H PRN (Reason: migraine headache) Qty: 1 1RF Rx Instructions: do not exceed 2 doses in a 24 hour period (DME) side rails for bed 0 .Route .MEDSUPPLY Qty: 1 0RF Rx Instructions: As directed (DME) Ultra-Light Rollator Misc See Rx Instructions .Route Qty: 1 0RF Rx Instructions: As directed omeprazole 40 mg capsule,delayed release(DR/EC) 40 mg PO DAILY Qty: 90 3RF atorvastatin 40 mg tablet 40 mg PO QHS Qty: 90 3RF clopidogrel 75 mg tablet 75 mg PO DAILY Qty: 90 3RF ropinirole 0.5 mg tablet 0.5 mg PO QHS Qty: 90 3RF Rx Instructions: administer 1-3 hours before bedtime sertraline 100 mg tablet 200 mg PO DAILY Qty: 180 3RF Rx Instructions: 200 mg PO daily; Primary Care Provider: Moon Rayo Referrals: Moon Rayo MD [Primary Care Provider] - As Needed Disposition Disposition: Home, Self Care What to do if you have Problems For any increased pain, shortness of breath, bleeding, nausea or vomiting, chestpain, or any unexpected problems, contact your Primary Care Provider. Call [facility] ([phone]) or report to the closest Emergency Room. Call 911 if necessary. 10/31/2352 <Electronically signed by Cam Delgado MD> Cosigner Signature (if applicable): CC: Dr. Moon Rayo MD ~ Signed [facility] Work Phone: 1(706) 675-834403-06-2024 Discharge summary Author [facility] September 28, 2023 2:53pm Note Date/Time September 28, 2023 2:53 pm [facility] Medical Records Department [address] [place] [id number] Discharge Summary 09/28/23 1452 MR#: [id number] Acct: [id number] Name: VANESSA HERNANDEZ Rep #:[id number] : 1945 78 From: Hima Gonzalez [facility] PCP: Dr. Moon Rayo MD Status:ADM IN Location: [place] [address] Providers Date of Admission: 09/26/23 Date of Discharge: 09/28/23 Primary Care Physician: Dr. Moon Rayo MD Consultations 09/26/23 15:24 Consult: Tele-Neurology Routine Consulting Provider: [facility] Reason for Consult: Acute Ischemic Stroke/TIA EMERGENT Consult: No MD Notified: Yes Date Notified: 09/26/23 Time Notified: 15:11 Method of Notification: Answering Service Nursing Unit Staff Notify [facility] of Tele-Neurology Consult: Yes Reason For Visit: CVA Diagnosis Discharge Diagnosis (1) 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: Status: Acute Code(s): I63.9 - Cerebral infarction, unspecified; R47.1 - Dysarthria and anarthria (2) Arthralgia: Status: Acute Code(s): M25.50 - Pain in unspecified joint (3) Microcytic anemia: Status: Acute Code(s): D50.9 - Iron deficiency anemia, unspecified Medications at Discharge Home Medications acetaminophen 500 mg tablet 1,000 mg (2 x 500 mg) PO Q6H PRN PRN Mild Pain (1- 3) #90 tabs 02/07/19 cholecalciferol (vitamin D3) 50 mcg (2,000 unit) capsule 4,000 unit PO DAILY SUPPLEMENT 09/10/19 biotin 2,500 mcg capsule 1 cap PO DAILY supplement 09/24/20 multivitamin with minerals 1 tab PO DAILY supplement 09/24/20 sumatriptan succinate 25 mg tablet See Rx Instructions PO .COMPLEX #14 tabs 06/14/22 sumatriptan succinate 6 mg/0.5 mL subcutaneous pen injector (Imitrex STATdose Pen) 6 mg (0.5 mL) subcut Q1-4H PRN migraine headache #1 mL 06/14/22 side rails for bed #1 ea 07/15/22 walker (Ultra-Light Rollator misc) #1 ea 08/23/22 ropinirole 0.5 mg tablet 0.5 mg PO QHS restless legs #90 tabs 11/12/22 sertraline 100 mg tablet 200 mg (2 x 100 mg) PO DAILY mood #180 tabs 11/12/22 omeprazole 40 mg capsule,delayed release 40 mg PO DAILY stomach #90 caps 02/21/23 gabapentin 100 mg capsule 100 mg PO Q12H neuropathy 09/26/23 aspirin 81 mg chewable tablet 81 mg PO BREAKFAST #0 tabs 09/28/23 atorvastatin 40 mg tablet 40 mg PO QHS #0 tabs 09/28/23 clopidogrel 75 mg tablet 75 mg PO DAILY #0 tabs 09/28/23 ferrous sulfate 325 mg (65 mg iron) tablet (FeroSul) 325 mg PO QODAY@LUNCH #0 tabs 09/28/23 Hospital Course Operations None Procedures EKG, Transthoracic echo and - (CT head without contrast x 2, CTA head/neck, chest x-ray) Summary of Care Provided Minutes Spent on Discharge: 35 Hospital Course: Patient is a 78-year-old female who presented to [facility] ED on 09/26/2023 with dysarthria, right facial droop and right facial numbness/tingling concerning for stroke. Hospital course as noted below. Patient discharged to care home facility in stable condition on 09/27. 1. Acute ischemic stroke ? Presented with symptoms of right facial droop, right facial numbness and tingling and dysarthria. Last known well was 8 PM on evening prior to admission, outside the window for TNK. ? Evaluated by stroke in ED who felt that she saw a stroke on CT of the brain with some stenotic area on her CTA head/neck. Given aspirin 325 mg and Plavix 300 mg on admit. ? Lipid panel showed total cholesterol 116, LDL 56, HDL 38. A1c 6.0%. ESR and CRP mildly elevated. ? Echo showed EF 65%, nondiagnostic bubble contrast today for PFO because of suboptimal images, no significant valvular disease. ? MRI brain unfortunately not able to be done to this point as it is unclear if patient's pacemaker is MRI compatible. ? Repeat CT head without contrast on 09/27 showed no acute intracranial abnormalities, only chronic age-related changes. ? Neurology followed. Recommended taking aspirin and Plavix both for 21 days, followed by baby aspirin monotherapy. Increased to atorvastatin 40 mg daily. 30- day cardiac event monitor ordered on discharge. Outpatient follow-up with neurology in 4 to 6 weeks. ? PT/OT/case management followed. Patient discharged to care home facility in stable condition on 09/27. ? Patient notably was normotensive during hospitalization off of home amlodipine2.5 mg daily, Toprol 50 mg twice daily, hydrochlorothiazide 25 mg daily. Discontinued these medications on discharge, can consider adding back in the outpatient setting as needed. 2. Bilateral shoulder pain ? ESR and CRP mildly elevated elevated as noted above. Unclear if this could besome degree of polymyalgia rheumatica, recommend outpatient follow-up with PCP and/or rheumatology for further evaluation. PT/OT followed as above. 3. Mild microcytic anemia ? Hemoglobin 11.3, MCV 77 on admit. Iron studies consistent with iron deficiency anemia. Started patient on p.o. iron supplement every other day. Hemoglobin remained stable during hospitalization. 4. Hypokalemia ? Potassium 3.1 on admit, magnesium within normal limits. Repleted as needed. Chronic medical conditions: ? Obesity: BMI 39 on admit. Complicates hospital course, care, recovery and prognosis. ? History of migraine headache: Hold home sumatriptan. ? Hypertension: Held home medications on discharge as noted above. ? Hyperlipidemia: Lipid panel on admit as noted above. Was on rosuvastatin 10 mg daily at home, started on atorvastatin 80 mg on admit. Decreased to atorvastatin 40 mg daily on 09/26 and will continue this dose on discharge. ? GERD: Continue home PPI. ? Neuropathy: Continue home gabapentin. ? Restless leg syndrome: Continue home Requip. ? Depression: Continue home sertraline. Total clinical time spent by myself addressing the patient's medical issues, reviewing all the data, and collaborating with patient's care team: 35 minutes. Physical Exam Const alert, oriented x3 and no apparent distress Constitutional Narrative: Pleasant elderly female, obese, sitting comfortably in bedside chair, answering questions appropriately but does have dysarthria at times when speaking, otherwise in no acute distress. General Appearance: cooperative and comfortable HEENT normocephalic, head/scalp atraumatic, hearing grossly normal bilaterally, nasal mucous membranes and turbinates normal and moist oral mucous membranes HEENT Narrative: No right-sided facial droop noted. Eyes PERRL, EOMs intact bilaterally and conjunctivae normal Neck full ROM Chest inspection of chest normal Resp normal respiratory effort, normal air movement, no use of accessory muscles and clear to auscultation bilaterally Cardio regular rate, regular rhythm, no murmurs and peripheral pulses 2+ throughout GI normal to inspection, nondistended, normoactive bowel sounds, soft to palpation,non-tender and non-distended Back/Spine normal ROM Extremity normal to inspection, full ROM and no pedal edema Skin no rashes or lesions noted Neuro moves all extremities and no focal motor deficits Neuro Narrative: Mild dysarthria noted. Psych mental status grossly normal Weight / BMI Weight Weight: 103.7 kg Body Mass Index (BMI) 39.2 ABG / Lab / Microbiology Data 09/27/23 06:30 09/27/23 06:30 Radiography Diagnostic Testing: Radiology Impression Brain CT 09/28/23 06:00 IMPRESSION: 1. No acute intracranial abnormalities. 2. Age-related changes. Electronically Signed: Tay Caurso MD at 5:33 EST , D/C Instructions Discharge Diet: No restrictions Weight Bearing Status: Full weight bearing Meaningful Use Info Meaningful Use Diagnoses (Choose all that apply): Ischemic CVA CVA Therapy Assessed for PT,OT and/or ST?: Yes Ischemic Stroke Antithrombotic order at d/c?: Yes Dx of Atrial fib/flutter?: No Statins at discharge?: Yes Primary Dx Acute Ischemic CVA?: Yes Discharge Plan Admission Admit Date/Time: 09/26/23 15:10 Primary Reason for Your Visit: Strokelike symptoms Attending Provider: Hima Zimmer Primary Care Provider: Moon Rayo Consulting Providers: Nav Harding; Sonal Vivar; Parul Lagos; Beena Wagner; Leeann Killian; Mandeep Hannon; Pamella Carl; Moustapha Tran; Adrienne Miranda; Shruti Spencer; Latonya Renee; Love Handy; Addie Guardado; Trisha Burden; Ha Baxter; Sukhdev Ashraf; Kevin Gonzalez; Collette Chery; Will Locke;Mona Chery Discharge Orders/Prescriptions Prescriptions: New atorvastatin 40 mg Tablet 40 mg PO QHS Qty: 0 0RF clopidogrel 75 mg Tablet 75 mg PO DAILY Qty: 0 0RF ferrous sulfate [FeroSul] 325 mg (65 mg iron) Tablet 325 mg PO QODAY@LUNCH Qty: 0 0RF aspirin 81 mg Tablet,Chewable 81 mg PO BREAKFAST Qty: 0 0RF Continued cholecalciferol (vitamin D3) 50 mcg (2,000 unit) capsule 4,000 unit PO DAILY multivitamin with minerals 1 EACH tablet 1 tab PO DAILY biotin 2,500 MCG capsule 1 cap PO DAILY gabapentin 100 mg capsule 100 mg PO Q12H Rx Instructions: Take one capsule (100 mg) each PM for one week, then increase to one capsule (100 mg) twice daily. acetaminophen 500 mg tablet 1,000 mg PO Q6H PRN PRN (Reason: Mild Pain (1-3/10)) Qty: 90 0RF sumatriptan succinate 25 mg tablet See Rx Instructions PO .COMPLEX Qty: 14 1RF Rx Instructions: take 1 tab at onset of headache; if no relief may repeat 1 tab after at least 2 hrs; max = 4 tabs/24 hr PO sumatriptan succinate [Imitrex STATdose Pen] 6 mg/0.5 mL pen injector 6 mg subcut Q1-4H PRN (Reason: migraine headache) Qty: 1 1RF Rx Instructions: do not exceed 2 doses in a 24 hour period (DME) side rails for bed 0 .Route .MEDSUPPLY Qty: 1 0RF Rx Instructions: As directed (DME) Ultra-Light Rollator Misc See Rx Instructions .Route Qty: 1 0RF Rx Instructions: As directed ropinirole 0.5 mg tablet 0.5 mg PO QHS Qty: 90 3RF Rx Instructions: administer 1-3 hours before bedtime sertraline 100 mg tablet 200 mg PO DAILY Qty: 180 3RF Rx Instructions: 200 mg PO daily; omeprazole 40 mg capsule,delayed release(DR/EC) 40 mg PO DAILY Qty: 90 3RF Discontinued amlodipine 2.5 mg tablet 2.5 mg PO DAILY Qty: 30 1RF potassium chloride 20 mEq tablet extended release 20 meq PO DAILY Qty: 90 3RF rosuvastatin 10 mg tablet 10 mg PO QHS Qty: 90 3RF hydrochlorothiazide 25 mg tablet 25 mg PO DAILY Qty: 90 3RF metoprolol succinate 50 mg tablet extended release 24 hr 50 mg PO BID Qty: 90 3RF Referrals / Follow Up: Moon Rayo MD [Primary Care Provider] - Disposition Disposition (needs filled in before D/C Order can be placed): Detention Facility Charges/Coding Visit Charges Inpatient E&M: 10744 Disch Hosp >30min 09/28/23 1453 <Electronically signed by Hima Zimmer DO> Cosigner Signature (if applicable): CC: Dr. Hima Zimmer DO; Dr. Moon Rayo MD~ Signed [facility] Work Phone: 1(787) 291-577003-06-2024 Discharge summary Author Hima Zimmer [facility] September 28, 2023 2:52pm Note Date/Time September 28, 2023 2:49 pm [facility] Medical Records Department [address] [place] [address] [place] [address] Instructions for Home/Discharge Instructions 09/28/23 1449 MR#: [id number] Acct: [id number] Name: VANESSA HERNANDEZ Rep #:[id number] : 1945 78 From: Hima pham DO PCP: Dr. Moon Rayo MD Status:ADM IN Discharge Instructions Diet Discharge Diet: No restrictions Activity Discharge Activity: No Restrictions Weight Bearing Status: Full weight bearing Follow Up Care Test Results: Test results from this visit will be discussed in further detail at your follow- up appointment, if applicable. Discharge Plan Admission Admit Date/Time: 09/26/23 15:10 Primary Reason for Your Visit: Strokelike symptoms Attending Provider: Hima Zimmer Primary Care Provider: Moon Rayo Consulting Providers: Nav Harding; Sonal Vivar; Parul Lagos; Beena Wagner; Leeann Killian; Mandeep Hannon; Pamella Carl; Moustapha Tran; Adrienne Miranda; Shruti Spencer; Latonya Renee; Love Handy; Addie Guardado; Trisha Burden; Ha Baxter; Sukhdev Ashraf; Kevin Gonzalez; Collette Chery; Will Locke;Mona Chery Discharge Orders/Prescriptions Prescriptions: New atorvastatin 40 mg Tablet 40 mg PO QHS Qty: 0 0RF clopidogrel 75 mg Tablet 75 mg PO DAILY Qty: 0 0RF ferrous sulfate [FeroSul] 325 mg (65 mg iron) Tablet 325 mg PO QODAY@LUNCH Qty: 0 0RF aspirin 81 mg Tablet,Chewable 81 mg PO BREAKFAST Qty: 0 0RF Continued cholecalciferol (vitamin D3) 50 mcg (2,000 unit) capsule 4,000 unit PO DAILY multivitamin with minerals 1 EACH tablet 1 tab PO DAILY biotin 2,500 MCG capsule 1 cap PO DAILY gabapentin 100 mg capsule 100 mg PO Q12H Rx Instructions: Take one capsule (100 mg) each PM for one week, then increase to one capsule (100 mg) twice daily. acetaminophen 500 mg tablet 1,000 mg PO Q6H PRN PRN (Reason: Mild Pain (1-3)) Qty: 90 0RF sumatriptan succinate 25 mg tablet See Rx Instructions PO .COMPLEX Qty: 14 1RF Rx Instructions: take 1 tab at onset of headache; if no relief may repeat 1 tab after at least 2 hrs; max = 4 tabs/24 hr PO sumatriptan succinate [Imitrex STATdose Pen] 6 mg/0.5 mL pen injector 6 mg subcut Q1-4H PRN (Reason: migraine headache) Qty: 1 1RF Rx Instructions: do not exceed 2 doses in a 24 hour period (DME) side rails for bed 0 .Route .MEDSUPPLY Qty: 1 0RF Rx Instructions: As directed (DME) Ultra-Light Rollator Misc See Rx Instructions .Route Qty: 1 0RF Rx Instructions: As directed ropinirole 0.5 mg tablet 0.5 mg PO QHS Qty: 90 3RF Rx Instructions: administer 1-3 hours before bedtime sertraline 100 mg tablet 200 mg PO DAILY Qty: 180 3RF Rx Instructions: 200 mg PO daily; omeprazole 40 mg capsule,delayed release(DR/EC) 40 mg PO DAILY Qty: 90 3RF Discontinued amlodipine 2.5 mg tablet 2.5 mg PO DAILY Qty: 30 1RF potassium chloride 20 mEq tablet extended release 20 meq PO DAILY Qty: 90 3RF rosuvastatin 10 mg tablet 10 mg PO QHS Qty: 90 3RF hydrochlorothiazide 25 mg tablet 25 mg PO DAILY Qty: 90 3RF metoprolol succinate 50 mg tablet extended release 24 hr 50 mg PO BID Qty: 90 3RF Referrals / Follow Up: Moon Rayo MD [Primary Care Provider] - Disposition Disposition (needs filled in before D/C Order can be placed): Detention Facility 09/28/23 1452<Electronically signed by Hima Zimmer DO>Hima Zimmer DO CC: Beena Wagner; Love Handy; Ha Montes; Leeann Killian MD; Parul Lagos MD; Nav Harding MD; Dr. Sonal Vivar MD; Dr. Mandeep Hannon MD; Dr. Maile MD; Dr. Adrienne Miranda MD; Dr. Moustapha Tran MD; Dr. Mona Chery DO; Dr. Moon Rayo MD; Dr. Latonya Renee DO; Dr. Trisha Burden MD; Dr. Addie Guardado MD; Dr. Sukhdev Ashraf MD; Dr. Kevin Gonzalez MD; Dr. Collette Chery MD; Shruti Spencer DO; Will Locke MD ~ Signed [facility] Work Phone: 1(331) 244-565103-06-2024 Discharge summary Author Hima Mesha [facility] September 28, 2023 2:49pm Note Date/Time September 28, 2023 2:49 pm [facility] Medical Records Department [address] [place] [address] Transfer to [facility] MR#: [id number] Acct: [id number] Name: VANESSA HERNANDEZ Rep #:[id number] : 1945 78 From: Hima pham DO PCP: Dr. Moon Rayo MD Status:ADM IN Certification of patient admission REQUIRED AT TIME OF ADMISSION. I CERTIFY THAT POST-HOSPITAL ECF SERVICES ARE REQUIRED TO BE GIVEN ON AN IN-PATIENT BASIS BECAUSE OF THE ABOVE NAMED PATIENT'S NEED FOR GROUP HOME CARE ON A CONTINUING BASIS FOR THE CONDITION(S) FOR WHICH HE/SHE WAS RECEIVING IN-PATIENT HOSPITAL SERVICES PRIOR TO HIS/HER TRANSFER TO THE ECF. 09/28/23 1449<Electronically signed by Hima Zimmer DO> Diet Diet Order/Speech Therapy: 09/26/23 17:44 Diet: Cardiac - Heart Healthy Food consistency:: Regular Liquid Consistency:: Regular/Thin Is pt able to select menu?: Yes Routine Orders/Code Status Code Status: DNRCC-A (DO NOT INTUBATE) Therapies Weight Bearing: Full weight bearing Physical Therapy: Eval and Treat Occupational Therapy: Eval and Treat Problem/Diagnosis (1) 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: Status: Acute Code(s): I63.9 - Cerebral infarction, unspecified; R47.1 - Dysarthria and anarthria (2) Arthralgia: Status: Acute Code(s): M25.50 - Pain in unspecified joint (3) Microcytic anemia: Status: Acute Code(s): D50.9 - Iron deficiency anemia, unspecified Plan Patient is a 78-year-old female who presented to [facility] ED on 09/26/2023 with dysarthria, right facial droop and right facial numbness/tingling concerning for stroke. Hospital course as noted below. Patient discharged to care home facility in stable condition on 09/27. 1. Acute ischemic stroke ? Presented with symptoms of right facial droop, right facial numbness and tingling and dysarthria. Last known well was 8 PM on evening prior to admission, outside the window for TNK. ? Evaluated by stroke in ED who felt that she saw a stroke on CT of the brain with some stenotic area on her CTA head/neck. Given aspirin 325 mg and Plavix 300 mg on admit. ? Lipid panel showed total cholesterol 116, LDL 56, HDL 38. A1c 6.0%. ESR and CRP mildly elevated. ? Echo showed EF 65%, nondiagnostic bubble contrast today for PFO because of suboptimal images, no significant valvular disease. ? MRI brain unfortunately not able to be done to this point as it is unclear if patient's pacemaker is MRI compatible. ? Repeat CT head without contrast on 09/27 showed no acute intracranial abnormalities, only chronic age-related changes. ? Neurology followed. Recommended taking aspirin and Plavix both for 21 days, followed by baby aspirin monotherapy. Increased to atorvastatin 40 mg daily. 30- day cardiac event monitor ordered on discharge. Outpatient follow-up with neurology in 4 to 6 weeks. ? PT/OT/case management followed. Patient discharged to care home facility in stable condition on 09/27. ? Patient notably was normotensive during hospitalization off of home amlodipine2.5 mg daily, Toprol 50 mg twice daily, hydrochlorothiazide 25 mg daily. Discontinued these medications on discharge, can consider adding back in the outpatient setting as needed. 2. Bilateral shoulder pain ? ESR and CRP mildly elevated elevated as noted above. Unclear if this could besome degree of polymyalgia rheumatica, recommend outpatient follow-up with PCP and/or rheumatology for further evaluation. PT/OT followed as above. 3. Mild microcytic anemia ? Hemoglobin 11.3, MCV 77 on admit. Iron studies consistent with iron deficiency anemia. Started patient on p.o. iron supplement every other day. Hemoglobin remained stable during hospitalization. 4. Hypokalemia ? Potassium 3.1 on admit, magnesium within normal limits. Repleted as needed. Chronic medical conditions: ? Obesity: BMI 39 on admit. Complicates hospital course, care, recovery and prognosis. ? History of migraine headache: Hold home sumatriptan. ? Hypertension: Held home medications on discharge as noted above. ? Hyperlipidemia: Lipid panel on admit as noted above. Was on rosuvastatin 10 mg daily at home, started on atorvastatin 80 mg on admit. Decreased to atorvastatin 40 mg daily on 09/26 and will continue this dose on discharge. ? GERD: Continue home PPI. ? Neuropathy: Continue home gabapentin. ? Restless leg syndrome: Continue home Requip. ? Depression: Continue home sertraline. Total clinical time spent by myself addressing the patient's medical issues, reviewing all the data, and collaborating with patient's care team: 35 minutes. Allergies/Procedures Done in Hospital Allergies adhesive tape Allergy (Severe, Verified 09/26/23 13:53) Area Sore cefpodoxime [From Vantin] Allergy (Unknown, Verified 09/26/23 13:53) Unknown codeine Allergy (Unknown, Verified 09/26/23 13:53) Unknown HALLUCINATIONS metronidazole [From Flagyl] Allergy (Unknown, Verified 09/26/23 13:53) Unknown sulfamethoxazole [From Bactrim] Allergy (Unknown, Verified 09/26/23 13:53) Unknown trimethoprim [From Bactrim] Allergy (Unknown, Verified 09/26/23 13:53) Unknown Sulfa (Sulfonamide Antibiotics) Allergy (Verified 09/26/23 13:53) Unknown Procedures: EKG, Transthoracic Echo and - (CT head without contrast x 2, CTA head/neck, chest x-ray) Type of Care/Length of Stay Estimated LOS: Convalescent Care Less Than 30 days Type of Care Needed: Skilled Rehab Potential: Fair Prognosis: Fair Additional Orders/Day of Discharge H&P will serve as current which was dated: 09/26/23 Day of Discharge: 09/28/23 Dietary and Speech Recommendations Dietitian Recommendations/Changes: cardiac diet, ONS if PO intake at meals fails Discharge Plan Admission Admit Date/Time: 09/26/23 15:10 Attending Provider: Hima Zimmer Primary Care Provider: Moon Rayo Consulting Providers: Nav Harding; Sonal Vivar; Parul Lagos; Beena Wagner; Leeann Killian; Mandeep Hannon; Pamella Carl; Moustapha Tran; Adrienne Miranda; Shruti Spencer; Latonya Renee; Love Handy; Addie Guardado; Trisha Burden; Ha Baxter; Sukhdev Ashraf; Kevin Gonzalez; Collette Chery; Will Locke;Mona Chery Discharge Orders/Prescriptions Prescriptions: No Action cholecalciferol (vitamin D3) 50 mcg (2,000 unit) capsule 4,000 unit PO DAILY amlodipine 2.5 mg tablet 2.5 mg PO DAILY Qty: 30 1RF multivitamin with minerals 1 EACH tablet 1 tab PO DAILY biotin 2,500 MCG capsule 1 cap PO DAILY gabapentin 100 mg capsule 100 mg PO Q12H Rx Instructions: Take one capsule (100 mg) each PM for one week, then increase to one capsule (100 mg) twice daily. acetaminophen 500 mg tablet 1,000 mg PO Q6H PRN PRN (Reason: Mild Pain (-10/01)) Qty: 90 0RF sumatriptan succinate 25 mg tablet See Rx Instructions PO .COMPLEX Qty: 14 1RF Rx Instructions: take 1 tab at onset of headache; if no relief may repeat 1 tab after at least2 hrs; max = 4 tabs/24 hr PO sumatriptan succinate [Imitrex STATdose Pen] 6 mg/0.5 mL pen injector 6 mg subcut Q1-4H PRN (Reason: migraine headache) Qty: 1 1RF Rx Instructions: do not exceed 2 doses in a 24 hour period (DME) side rails for bed 0 .Route .MEDSUPPLY Qty: 1 0RF Rx Instructions: As directed (DME) Ultra-Light Rollator Misc See Rx Instructions .Route Qty: 1 0RF Rx Instructions: As directed ropinirole 0.5 mg tablet 0.5 mg PO QHS Qty: 90 3RF Rx Instructions: administer 1-3 hours before bedtime sertraline 100 mg tablet 200 mg PO DAILY Qty: 180 3RF Rx Instructions: 200 mg PO daily; potassium chloride 20 mEq tablet extended release 20 meq PO DAILY Qty: 90 3RF rosuvastatin 10 mg tablet 10 mg PO QHS Qty: 90 3RF omeprazole 40 mg capsule,delayed release(DR/EC) 40 mg PO DAILY Qty: 90 3RF hydrochlorothiazide 25 mg tablet 25 mg PO DAILY Qty: 90 3RF metoprolol succinate 50 mg tablet extended release 24 hr 50 mg PO BID Qty: 90 3RF Referrals / Follow Up: Moon Rayo MD [Primary Care Provider] - Charges/Coding Visit Charges Inpatient E&M: 55838 Disch Hosp >30min 09/28/23 1449 <Electronically signed by Hima Zimmer DO> Cosigner Signature (if applicable): CC: Beena Wagner; Love Handy; Ha Montes; Leeann Killian MD; Parul Lagos MD; Nav Harding MD; Dr. Sonal Vivar MD; Dr. Mandeep Hannon MD; Dr. Maile MD; Dr. Adrienne Miranda MD; Dr. Moustapha Tran MD; Dr. Mona Chery DO; Dr. Moon Ryao MD; Dr. Latonya Renee DO; Dr. Trisha Burden MD; Dr. Addie Guardado MD; Dr. Sukhdev Ashraf MD; Dr. Kevin Gonzalez MD; Dr. Collette Chery MD; Shruti Spencer DO; Will Locke MD ~ [facility] Work Phone: [phone]) [phone] Consult note Author [facility] September 27, 2023 2:02pm Note Date/Time September 27, 2023 12:3 6pm [facility] Medical Records Department [address] [place] [id number] Consultation - Neurology 09/27/23 1235 MR#: [id number] Acct: [id number] Name: VANESSA HERNANDEZ Rep #:[id number] : 1945 78 From: Addie Wesley PCP: Dr. Moon Rayo MD Status:ADM IN Location: [place] [id number]- [id number] Assessment and Plan: Neuro Assessment/Plan #acute ischemic stroke-etiology is cryptogenic at this point -ASA/ Plavix x 21 days. Afterwards will be asa 81 monotherapy -lipitor 40 -30 cardiac event monitor upon discharge -outpatient follow up with neurology in 4-6 weeks from discharge, outpatient follow up with PCP -obtain repeat head CTH today to see if now stroke is apparent -MRI brain: unable to have a brain MRI due to stimulator -LDL 56/Hba1c 6.0 -CTA head/neck: no significant stenosis -TTE: unremarkalbe -BP goal normotension -fu on TSH and consider sending UA given recent UTI and elevated inflammatory markers to ensure properly treated -PT/OT/WAITSTAFF HPI Consult Data Date of Consult: 09/27/23 HPI Narrative HPI Narrative: 78 yo F? w a PMH of arthritis, migraine, TIA, GERD, asthma, depression, RLS, HTN, HLD, neuropathy presented on 09/25 with dysarthria. Lives alone. LKW 8pm on 09/24. No deficits at baseline besides neuropathy. Noted speech was noted garbled.Upon arrival, R facial droop, dysarthria, and R sided numbness. ?lnitial vitals notable for blood pressure was 121/68, respiratory was 22 and oxygen saturationsare 96 to 98% on room air. Seen by stroke team, no lytics or EVT. No LVO on CTA.Started ASA/Plavix. [facility] Medical History (Updated 09/26/23 @ 15:[address] Mona Chery, DO) Abdominal pain Anxiety Asthma Chronic back pain Chronic bronchitis Chronic headaches Confusion Dark stools DDD (degenerative disc disease) Depression Essential (primary) hypertension Frequent falls Generalized weakness GERD (gastroesophageal reflux disease) H/O emotional problems Hyperlipidemia Hypokalemia IBS (irritable bowel syndrome) Insomnia Iron deficiency anemia Left-sided chest wall pain Localized swelling of chest wall Migraines Neuropathy Non-smoker Obesity Osteoarthritis Osteoarthritis of left knee Overactive bladder Pneumonia Rheumatoid arthritis Stroke/cerebrovascular accident TIA (transient ischemic attack) Vision problems Vitamin D deficiency Home Medications acetaminophen 500 mg tablet 1,000 mg (2 x 500 mg) PO Q6H PRN PRN Mild Pain (1- 10/01) #90 tabs 02/07/19 [Rx Last Taken 08/12/23 16:15 1,000 mg] cholecalciferol (vitamin D3) 50 mcg (2,000 unit) capsule 4,000 unit PO DAILY SUPPLEMENT 09/10/19 [History Last Taken 09/24/20] biotin 2,500 mcg capsule 1 cap PO DAILY supplement 09/24/20 [History Last Taken 09/24/20] multivitamin with minerals 1 tab PO DAILY supplement 09/24/20 [History Last Taken 09/24/20] sumatriptan succinate 25 mg tablet See Rx Instructions PO .COMPLEX #14 tabs 06/14/22 [Rx Last Taken Unknown] sumatriptan succinate 6 mg/0.5 mL subcutaneous pen injector (Imitrex STATdose Pen) 6 mg (0.5 mL) subcut Q1-4H PRN migraine headache #1 mL 06/14/22 [Rx Last Taken Unknown] side rails for bed #1 ea 07/15/22 [Rx Last Taken Unknown] walker (Ultra-Light Rollator misc) #1 ea 08/23/22 [Rx Last Taken Unknown] ropinirole 0.5 mg tablet 0.5 mg PO QHS restless legs #90 tabs 11/12/22 [Rx Last Taken Unknown] sertraline 100 mg tablet 200 mg (2 x 100 mg) PO DAILY mood #180 tabs 11/12/22 [Rx Last Taken Unknown] potassium chloride 20 mEq tablet,extended release 20 meq PO DAILY supplement #90tabs 02/15/23 [Rx Last Taken Unknown] rosuvastatin 10 mg tablet 10 mg PO QHS CHOLESTEROL #90 tabs 02/15/23 [Rx Last Taken Unknown] omeprazole 40 mg capsule,delayed release 40 mg PO DAILY stomach #90 caps 02/21/23 [Rx Last Taken Unknown] hydrochlorothiazide 25 mg tablet 25 mg PO DAILY water pill #90 tabs 07/29/23 [Rx Last Taken Unknown] amlodipine 2.5 mg tablet 2.5 mg PO DAILY blood pressure #30 tabs 08/22/23 [Rx Last Taken Unknown] metoprolol succinate 50 mg tablet,extended release 24 hr 50 mg PO BID HTN #90 tabs 08/31/23 [Rx Last Taken Unknown] gabapentin 100 mg capsule 100 mg PO Q12H neuropathy 09/26/23 [History Last Taken Unknown] Allergy/AdvReac Type Severity Reaction Status Date / Time adhesive tape Allergy Severe Area Sore Verified 09/26/23 13:53 cefpodoxime [From Vantin] Allergy Unknown Unknown Verified 09/26/23 13:53 codeine Allergy Unknown Unknown Verified 09/26/23 13:53 metronidazole [From Flagyl] Allergy Unknown Unknown Verified 09/26/23 13:53 sulfamethoxazole Allergy Unknown Unknown Verified 09/26/23 13:53 [From Bactrim] trimethoprim [From Bactrim] Allergy Unknown Unknown Verified 09/26/23 13:53 Sulfa (Sulfonamide Allergy Unknown Verified 09/26/23 13:53 Antibiotics) Family History Sister Anesthesia complication Breast cancer Hypertension Cancer Thyroid, rectal, kidney Thyroid disorder Diabetes Mother Arthritis Pancreatic cancer Depression Diabetes Father Colon cancer Hypertension CVA (cerebral vascular accident) Sister Cancer rectal/kidney/medullary Thyroid cancer Surgical History (Updated 09/26/23 @ 15:25 by Nenita Baker) History of appendectomy History of back surgery History of History of cholecystectomy History of gastric surgery History of hernia repair History of hysterectomy History of left heart catheterization (10/14/20) History of left knee replacement History of right knee joint replacement 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 History of total right knee replacement Hx of breast reduction, elective Social History (Updated 09/26/23 @ 15:[address] Mona Chery DO) household members: none housing: apartment current occupational status: retired Smoking Status: Never smoker alcohol intake: never substance use type: does not use what type of physical activity do you participate in: none Vital Signs Vital Signs Vital Signs: 09/26/23 13:39 09/26/23 13:45 09/26/23 13:45 Temperature 98.2 F Temperature Source Temporal Pulse Rate 90 75 Pulse Strength Respiratory Rate 22 H 20 H Respiratory Effort Respiratory Depth Respiratory Pattern Blood Pressure 121/68 H 121/68 H Blood Pressure Mean 85 85 Blood Pressure Source Blood Pressure Position Blood Pressure Location Pulse Ox 96 98 98 Oxygen Delivery Method Room Air Room Air 09/26/23 14:15 09/26/23 15:26 09/26/23 15:33 Temperature 98.1 F 97.5 F L Temperature Source Oral Pulse Rate 78 70 86 Pulse Strength Respiratory Rate 18 18 16 Respiratory Effort Respiratory Depth Respiratory Pattern Blood Pressure 139/92 H 126/59 H 143/81 H Blood Pressure Mean 107 81 101 Blood Pressure Source Monitor Blood Pressure Position Semi-Fowlers Blood Pressure Location Left Arm Pulse Ox 96 97 97 Oxygen Delivery Method Room Air Room Air 09/26/23 17:14 09/26/23 18:19 09/26/23 19:16 Temperature 98.4 F Temperature Source Oral Pulse Rate 79 Pulse Strength Respiratory Rate 14 Respiratory Effort Normal Non-Labored Respiratory Depth Normal Respiratory Pattern Normal Blood Pressure 117/64 Blood Pressure Mean 81 Blood Pressure Source Monitor Blood Pressure Position Semi-Fowlers Blood Pressure Location Left Arm Pulse Ox 97 98 Oxygen Delivery Method Room Air Room Air Room Air 09/26/23 21:46 09/26/23 21:51 09/26/23 22:00 Temperature 98 F Temperature Source Temporal Pulse Rate 78 Pulse Strength Normal (2+) Respiratory Rate 16 Respiratory Effort Normal Non-Labored Respiratory Depth Normal Respiratory Pattern Normal Blood Pressure 109/63 Blood Pressure Mean 78 Blood Pressure Source Monitor Blood Pressure Position Semi-Fowlers Blood Pressure Location Left Arm Pulse Ox 98 Oxygen Delivery Method Room Air Room Air 09/26/23 20:25 09/27/23 02:00 09/27/23 02:24 Temperature 97.4 F L Temperature Source Temporal Pulse Rate 77 Pulse Strength Respiratory Rate 18 Respiratory Effort Normal Non-Labored Respiratory Depth Normal Respiratory Pattern Normal Blood Pressure 112/84 H Blood Pressure Mean 93 Blood Pressure Source Monitor Blood Pressure Position Semi-Fowlers Blood Pressure Location Left Arm Pulse Ox 95 95 Oxygen Delivery Method Room Air Room Air Room Air 09/27/23 06:00 09/27/23 09:07 09/27/23 10:00 Temperature 98.1 F 97.9 F Temperature Source Oral Temporal Pulse Rate 76 78 Pulse Strength Normal (2+) Respiratory Rate 16 15 Respiratory Effort Respiratory Depth Respiratory Pattern Blood Pressure 122/63 H 118/77 Blood Pressure Mean 82 90 Blood Pressure Source Monitor Monitor Blood Pressure Position Semi-Fowlers Sitting Blood Pressure Location Right Arm Left Arm Pulse Ox 95 96 Oxygen Delivery Method Room Air Room Air 09/27/23 08:45 Temperature Temperature Source Pulse Rate Pulse Strength Respiratory Rate Respiratory Effort Normal Non-Labored Respiratory Depth Normal Respiratory Pattern Normal Blood Pressure Blood Pressure Mean Blood Pressure Source Blood Pressure Position Blood Pressure Location Pulse Ox Oxygen Delivery Method Room Air Weight Weight: 103.7 kg Body Mass Index (BMI) 39.2 EEG Results Procedure Details EEG Procedure Details: VANESSA HERNANDEZ is a 78 year old F with a past medical history of , who presents for evaluation of Electroencephalogram on DATE at TIME Physical Exam Narrative Exam MS: awake, alert, oriented x 3, follows commands, able to name, no aphasia, moderately dysarthric CN: VFF, EOMI, R UMN facial droop, nml facial sensation M: ?Antigravity in all extremities, no drift S: decreased to LT on L C: No dysmetria Lab / Micro Data 09/27/23 06:30 09/27/23 06:30 Labs: Laboratory Results - last 24 hr 09/26/23 13:40: WBC 13.6 H, RBC 4.89, Hgb 11.3 L, Hct 38.1, MCV 77.9 L, MCH 23.1L, MCHC 29.7 L, RDW Std Deviation 51.7 H, RDW Coeff of Karon 18.6 H, Plt Count 333, MPV 9.2, Immature Gran % (Auto) 0.700, Neut % (Auto) 74.3 H, Lymph % (Auto)12.2 L, Menard % (Auto) 10.3 H, Eos % (Auto) 2.1, Baso % (Auto) 0.4, Absolute Neuts (auto) 10.1 H, Absolute Lymphs (auto) 1.66, Nucleated RBC % 0, PT 14.8, INR 1.2, APTT 35.8, Sodium 137, Potassium 3.1 L, Chloride 101, Carbon Dioxide 31.0, Anion Gap 5, BUN 20 H, Creatinine 0.88, Estim Creat Clear Calc 61.25, Est GFR (MDRD) Af Amer 80, Est GFR (MDRD) Non-Af 66, BUN/Creatinine Ratio 22.8 H, Glucose 111 H, Calcium 9.4, Troponin I High Sens 8 09/27/23 06:30: WBC 9.6, RBC 4.36, Hgb 10.0 L, Hct 33.9 L, MCV 77.8 L, MCH 22.9 L, MCHC 29.5 L, RDW Std Deviation 51.8 H, RDW Coeff of Karon 18.5 H, Plt Count 291, MPV 9.0, Immature Gran % (Auto) 0.400, Neut % (Auto) 64.8, Lymph % (Auto) 20.9, Menard % (Auto) 9.8, Eos % (Auto) 3.8, Baso % (Auto) 0.3, Absolute Neuts (auto) 6.2, Absolute Lymphs (auto) 2.00, Nucleated RBC % 0, ESR 34 H, Sodium 138, Potassium 3.5, Chloride 105, Carbon Dioxide 30.0, Anion Gap 3 L, BUN 13, Creatinine 0.75, Estim Creat Clear Calc 67.98, Est GFR (MDRD) Af Amer 95, Est GFR (MDRD) Non-Af 79, BUN/Creatinine Ratio 17.2, Glucose 99, Hemoglobin A1c 6.0 H, Calcium 9.2, Phosphorus 3.4, Magnesium 2.2, Iron 25 L, TIBC 342, Iron Saturation 7.3 L, Ferritin 68, Total Bilirubin 0.60, AST 20, ALT 21, Alkaline Phosphatase 67, C-React Prot Ext Range 56.70 H, Total Protein 6.6, Albumin 2.8 L, Globulin 3.8, Albumin/Globulin Ratio 0.7 L, Triglycerides 108, Cholesterol 116, LDL Cholesterol 56, VLDL Cholesterol 22, HDL Cholesterol 38 L, TSH 4.16 H Imaging Radiology Impression Brain CT 09/26/23 13:24 IMPRESSION: No acute intracranial process identified. Chronic involutional and white matter changes. Electronically Signed: Yvonne Florian MD at 13:36 EST Reading Location ID and State: [facility] / [place] Tel , Service support , ADDENDUM: 09/26/23 1354 IMPRESSION: No acute intracranial process identified. Chronic involutional and white matter changes. N.B. : The above Results were Read Back by Yvonne Florian MD to Joshua Santiago MD, and understanding confirmed on 09/26/2023 13:47:48 (ET). Electronically Signed: Yvonne Florian MD at 13:36 EST Reading Location ID and State: [facility] / [place] Tel , Service support , Head/Neck CTA 09/26/23 13:24 IMPRESSION: No evidence for significant stenosis or occlusion in the carotid or vertebral arteries of the neck. No evidence for large vessel occlusion in the [place]. Electronically Signed: Yvonne Florian MD at 14:03 EST Reading Location ID and State: [facility] / [place] Tel , Service support , ADDENDUM: 09/26/23 1412 IMPRESSION: No evidence for significant stenosis or occlusion in the carotid or vertebral arteries of the neck. No evidence for large vessel occlusion in the [place]. N.B. : The above Results were Read Back by Yvonne Florian MD to Joshua Santiago MD, and understanding confirmed on 09/26/2023 14:05:28 (ET). Electronically Signed: Yvonne Florian MD at 14:03 EST , Chest X-Ray 09/26/23 14:45 IMPRESSION: No acute cardiopulmonary process identified. Electronically Signed: Yvonne Florian MD at 15:06 EST , Echocardiogram 09/26/23 15:18 Interpretation Summary The study was technically difficult. The left ventricular ejection fraction is 65 %. Nondiagnostic bubble contrast study for PFO because of suboptimal images. Mild tricuspid valve insufficiency. Trivial pericardial effusion. Ordering Physician: Mona Chery Referring Physician: Moon Rayo Performed By: Kimberlee Rg RDCS Active Medications Active Medications Active Medications: Current Medications Generic Name Dose Route Start Last Admin Trade Name Freq PRN Reason Stop Dose Admin Acetaminophen 650 mg 09/26/23 15:24 Acetaminophen 325 Mg Tablet PO Q6H PRN PRN Pain 1-10 Or Fever >100.7 Aspirin 81 mg 09/27/23 08:00 09/27/23 11:04 Aspirin 81 Mg Tab.Chew PO 81 mg BREAKFAST KARO Administration Atorvastatin Calcium 80 mg 09/26/23 22:00 09/26/23 20:55 Atorvastatin Calcium 80 Mg Tablet PO 80 mg QHS KARO Administration Cholecalciferol 100 mcg 09/27/23 10:00 09/27/23 11:05 Cholecalciferol (Vit D3) 25 Mcg Tablet (1,000 Units) PO 100 mcg DAILY KARO Administration Clopidogrel Bisulfate 75 mg 09/27/23 10:00 09/27/23 11:04 Clopidogrel Bisulfate 75 Mg Tablet PO 75 mg DAILY KARO Administration Compound Med 0 click 09/26/23 22:00 09/27/23 06:05 Arthritis Pain Compound 60 Click Tube TOPICAL 1 click TID KARO Administration Protocol Enoxaparin Sodium 40 mg 09/27/23 10:00 09/27/23 11:04 Enoxaparin 40 Mg/0.4 Ml Syringe SC 40 mg DAILY KARO Administration Gabapentin 100 mg 09/26/23 22:00 09/27/23 11:04 Gabapentin 100 Mg Capsule PO 100 mg Q12 KARO Administration Hydralazine HCl 5 mg 09/26/23 15:24 Hydralazine 20 Mg/Ml Vial IV Q30M PRN to maintain BP goals Sodium Chloride 250 mls @ 15 mls/hr 09/26/23 15:16 IV .[id number] PRN Additional IVPB Infusion Sodium Chloride 250 mls @ 15 mls/hr 09/26/23 15:16 IV .[id number] PRN Saline Flush Labetalol HCl 10 - 20 mg 09/26/23 15:24 Labetalol (Prefilled) 20 Mg/4 Ml IV Q10M PRN PRN to Maintain BP Goals Melatonin 3 mg 09/26/23 15:24 Melatonin 3 Mg Tablet PO QHS PRN PRN INSOMNIA Ondansetron HCl 4 mg 09/26/23 15:24 Ondansetron 4 Mg/2 Ml Vial IV Q8H PRN PRN NAUSEA/VOMITING Pantoprazole Sodium 40 mg 09/27/23 10:00 09/27/23 11:04 Pantoprazole Sodium 40 Mg Tablet PO 40 mg DAILY KARO Administration Pramipexole Dihydrochloride 0.25 mg 09/26/23 20:00 09/26/23 20:58 Pramipexole Di-Hcl 0.25 Mg Tablet PO 0.25 mg 2000 KARO Administration Senna/Docusate Sodium 2 tablet 09/26/23 15:24 Senna/Docusate Sodium 1 Tablet PO BID PRN PRN Constipation Sertraline HCl 200 mg 09/27/23 10:00 09/27/23 11:05 Sertraline 100 Mg Tablet PO 200 mg DAILY KARO Administration Sodium Chloride 10 - 40 ml 09/26/23 15:16 0.9% Saline Lock 10 Ml Syringe IV UD PRN SALINE FLUSH 09/27/23 1402 <Electronically signed by Addie Guardado MD> Cosigner Signature (if applicable): CC: Beena Wagner; Love Handy; Ha Montes; Leeann Killian MD; Parul Lagos MD; Nav Harding MD; Dr. Sonal Vivar MD; Dr. Mandeep Hannon MD; Dr. Maile MD; Dr. Adrienne Miranda MD; Dr. Moustapha Tran MD; Dr. Mona Chery DO; Dr. Moon Rayo MD; Dr. Latonya Renee DO; Dr. Trisha Burden MD; Dr. Addie Guardado MD; Dr. Sukhdev Ashraf MD; Dr. Kevin Gonzalez MD; Dr. Collette Chery MD; Shruti Spencer DO; Will Locke MD~ Signed [facility] Work Phone: [phone]) 567-756803-05-2024 Progress note Author [facility] September 27, 2023 12:08pm Note Date/Time September 27, 2023 10:1 3am [facility] Medical Records Department [address] [place] [address] Progress Note - Hospitalist 09/27/23 1013 MR#: [id number] Acct: [id number] Name: VANESSA HERNANDEZ Rep #:[id number] : 1945 78 From: Hima pham DO PCP: Dr. Moon Rayo MD Status:ADM IN Location: [place] [address]- 1 Reason for Visit Reason for Visit: Diagnoses Iron deficiency anemia, unspecified (09/26/23) Hypokalemia (09/26/23) Cerebral infarction, unspecified (09/26/23) Pain in unspecified joint (09/26/23) Facial weakness (09/26/23) Dysarthria and anarthria (09/26/23) Subjective Subjective Patient admitted yesterday afternoon for concern for stroke. No acute events overnight. Patient seen at bedside this morning. Patient was sitting comfortably in bedside chair, in no acute distress. Patient presented with right-sided facial drooping, right-sided facial tingling and dysarthria. Statesthat she continues to have dysarthria this morning and right-sided facial tingling, similar to yesterday. She otherwise was able to walk around the room without any issue this morning. She passed a bedside swallow test yesterday andwas eating breakfast when I was in the room, denies any issues with swallowing. Patient lives at home alone, is independent at baseline and does everything for herself without issue. She is concerned about her ongoing neurosymptoms but otherwise denies any acute pain or discomfort. No other acute concerns morning. Objective Data Objective Data Vital Signs: Vital Signs Temp Pulse Resp BP Pulse Ox O2 Del Method 97.9 F 78 15 118/77 96 Room Air 09/27/23 10:00 09/27/23 10:00 09/27/23 10:00 09/27/23 10:00 09/27/23 10:00 09/27/23 10:00 Oxygen Delivery Method Room Air Weight: 103.7 kg Body Mass Index (BMI) 39.2 Intake & Output: Intake and Output for Last 24 Hours 09/25/23 09/26/23 09/27/23 23:59 23:59 23:59 Intake Total 1150 / 1410 260 / 260 Output Total 450 / 450 Balance 1150 / 1060 -190 / -190 Lab / Micro Data 09/27/23 06:30 09/27/23 06:30 Labs: Laboratory Results - last 24 hr 09/26/23 13:40: WBC 13.6 H, RBC 4.89, Hgb 11.3 L, Hct 38.1, MCV 77.9 L, MCH 23.1L, MCHC 29.7 L, RDW Std Deviation 51.7 H, RDW Coeff of Karon 18.6 H, Plt Count 333, MPV 9.2, Immature Gran % (Auto) 0.700, Neut % (Auto) 74.3 H, Lymph % (Auto)12.2 L, Menard % (Auto) 10.3 H, Eos % (Auto) 2.1, Baso % (Auto) 0.4, Absolute Neuts (auto) 10.1 H, Absolute Lymphs (auto) 1.66, Nucleated RBC % 0, PT 14.8, INR 1.2, APTT 35.8, Sodium 137, Potassium 3.1 L, Chloride 101, Carbon Dioxide 31.0, Anion Gap 5, BUN 20 H, Creatinine 0.88, Estim Creat Clear Calc 61.25, Est GFR (MDRD) Af Amer 80, Est GFR (MDRD) Non-Af 66, BUN/Creatinine Ratio 22.8 H, Glucose 111 H, Calcium 9.4, Troponin I High Sens 8 09/27/23 06:30: WBC 9.6, RBC 4.36, Hgb 10.0 L, Hct 33.9 L, MCV 77.8 L, MCH 22.9 L, MCHC 29.5 L, RDW Std Deviation 51.8 H, RDW Coeff of Karon 18.5 H, Plt Count 291, MPV 9.0, Immature Gran % (Auto) 0.400, Neut % (Auto) 64.8, Lymph % (Auto) 20.9, Menard % (Auto) 9.8, Eos % (Auto) 3.8, Baso % (Auto) 0.3, Absolute Neuts (auto) 6.2, Absolute Lymphs (auto) 2.00, Nucleated RBC % 0, ESR 34 H, Sodium 138, Potassium 3.5, Chloride 105, Carbon Dioxide 30.0, Anion Gap 3 L, BUN 13, Creatinine 0.75, Estim Creat Clear Calc 67.98, Est GFR (MDRD) Af Amer 95, Est GFR (MDRD) Non-Af 79, BUN/Creatinine Ratio 17.2, Glucose 99, Hemoglobin A1c 6.0 H, Calcium 9.2, Phosphorus 3.4, Magnesium 2.2, Iron 25 L, TIBC 342, Iron Saturation 7.3 L, Ferritin 68, Total Bilirubin 0.60, AST 20, ALT 21, Alkaline Phosphatase 67, C-React Prot Ext Range 56.70 H, Total Protein 6.6, Albumin 2.8 L, Globulin 3.8, Albumin/Globulin Ratio 0.7 L, Triglycerides 108, Cholesterol 116, LDL Cholesterol 56, VLDL Cholesterol 22, HDL Cholesterol 38 L, TSH 4.16 H Radiography Diagnostic Testing: Radiology Impression Brain CT 09/26/23 13:24 IMPRESSION: No acute intracranial process identified. Chronic involutional and white matter changes. Electronically Signed: Yvonne Florian MD at 13:36 EST , ADDENDUM: 09/26/23 1354 IMPRESSION: No acute intracranial process identified. Chronic involutional and white matter changes. N.B. : The above Results were Read Back by Yvonne Florian MD to Joshua Santiago MD, and understanding confirmed on 09/26/2023 13:47:48 (ET). Electronically Signed: Yvonne Florian MD at 13:36 EST , Head/Neck CTA 09/26/23 13:24 IMPRESSION: No evidence for significant stenosis or occlusion in the carotid or vertebral arteries of the neck. No evidence for large vessel occlusion in the [place]. Electronically Signed: Yvonne Florian MD at 14:03 EST , ADDENDUM: 09/26/23 1412 IMPRESSION: No evidence for significant stenosis or occlusion in the carotid or vertebral arteries of the neck. No evidence for large vessel occlusion in the [place]. N.B. : The above Results were Read Back by Yvonne Florian MD to Joshua Santiago MD, and understanding confirmed on 09/26/2023 14:05:28 (ET). Electronically Signed: Yvonne Florian MD at 14:03 EST , Chest X-Ray 09/26/23 14:45 IMPRESSION: No acute cardiopulmonary process identified. Electronically Signed: Yvonne Florian MD at 15:06 EST , Echocardiogram 09/26/23 15:18 Interpretation Summary The study was technically difficult. The left ventricular ejection fraction is 65 %. Nondiagnostic bubble contrast study for PFO because of suboptimal images. Mild tricuspid valve insufficiency. Trivial pericardial effusion. Ordering Physician: Mona Chery Referring Physician: Moon Rayo Performed By: Kimberlee Rg RDCS Physical Exam Const alert, oriented x3 and no apparent distress Constitutional Narrative: Pleasant elderly female, obese, sitting comfortably in bedside chair, answering questions appropriately but does have dysarthria at times when speaking, otherwise in no acute distress. General Appearance: cooperative and comfortable HEENT normocephalic, head/scalp atraumatic, hearing grossly normal bilaterally, nasal mucous membranes and turbinates normal and moist oral mucous membranes HEENT Narrative: No right-sided facial droop noted. Eyes PERRL, EOMs intact bilaterally and conjunctivae normal Neck full ROM Chest inspection of chest normal Resp normal respiratory effort, normal air movement, no use of accessory muscles and clear to auscultation bilaterally Cardio regular rate, regular rhythm, no murmurs and peripheral pulses 2+ throughout GI normal to inspection, nondistended, normoactive bowel sounds, soft to palpation,non-tender and non-distended Back/Spine normal ROM Extremity normal to inspection, full ROM and no pedal edema Skin no rashes or lesions noted Neuro moves all extremities and no focal motor deficits Neuro Narrative: Mild dysarthria noted. Psych mental status grossly normal Assessment & Plan Assessment/Plan (1) 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: (2) Arthralgia: (3) Microcytic anemia: PLAN: Plan Patient is a 78-year-old female who presented to [facility] ED on 09/26/2023 with dysarthria, right facial droop and right facial numbness/tingling concerning for stroke. 1. Acute ischemic stroke ? Presented with symptoms of right facial droop, right facial numbness and tingling and dysarthria. Last known well was 8 PM on evening prior to admission, outside the window for TNK. ? Evaluated by stroke in ED who felt that she saw a stroke on CT of the brain with some stenotic area on her CTA head/neck. Given aspirin 325 mg and Plavix 300 mg on admit. ? Lipid panel showed total cholesterol 116, LDL 56, HDL 38. A1c 6.0%. Notably,patient's ESR is elevated at 34 and CRP is elevated at 56. ? Echo showed EF 65%, nondiagnostic bubble contrast today for PFO because of suboptimal images, no significant valvular disease. ? MRI brain unfortunately not able to be done to this point as it is unclear if patient's pacemaker is MRI compatible. ? Neurology following, appreciate further recommendations. ? PT/OT/case management following. ? Continue baby aspirin, Plavix, statin. Will defer to neurology on timing of restarting home blood pressure medications. 2. Bilateral shoulder pain ? ESR and CRP elevated as noted above. These were checked to evaluate for polymyalgia rheumatica. Appreciate further input from neurology on significance of elevated inflammatory markers as noted above. PT/OT/case management following. 3. Mild microcytic anemia ? Hemoglobin 11.3, MCV 77 on admit. Iron studies consistent with iron deficiency anemia. Will start patient on p.o. iron supplement every other day. 4. Hypokalemia ? Potassium 3.1 on admit, magnesium within normal limits. Replete potassium as needed. Chronic medical conditions: ? Obesity: BMI 39 on admit. Complicates hospital course, care, recovery and prognosis. ? History of migraine headache: Hold home sumatriptan. ? Hypertension: Holding home amlodipine, hydrochlorothiazide and metoprolol to allow for permissive hypertension for now. Will await neurology recommendationsand restart home medications when able. ? Hyperlipidemia: Lipid panel on admit as noted above. Was on rosuvastatin 10 mg daily at home, started on atorvastatin 80 mg on admit. Will decrease to atorvastatin 40 mg daily on 09/26 and continue this dose on discharge. ? GERD: Continue home PPI. ? Neuropathy: Continue home gabapentin. ? Restless leg syndrome: Continue home Requip. ? Depression: Continue home sertraline. DVT prophylaxis: Lovenox CODE STATUS: DNR CCA, DNI Expected disposition: TBD Total clinical time spent by myself addressing the patient's medical issues, reviewing all the data, and collaborating with patient's care team: 35 minutes. Charges/Coding Visit Charges Inpatient E&M: 02545 Subs Hosp L2 09/27/23 1208 <Electronically signed by Hima Zimmer DO> Cosigner Signature (if applicable): CC: ~ Signed [facility] Work Phone: 1(331) 266-273103-04-2024 History and physical note Author Mona Chery [facility] September 26, 2023 3:35pm Note Date/Time September 26, 2023 3:35 pm [facility] Medical Records Department [address] [place] [address] H&P Exam - Hospitalist 09/26/23 1519 MR#: [id number] Acct: [id number] Name: VANESSA HERNANDEZ Rep #:[id number] : 1945 78 From: Mona Chery DO PCP: Dr. Moon Rayo MD Status:ADM IN Location: [place] [id number]- 1 HPI - General General Date of Admission: 09/26/23 Date of Service: 09/26/23 Chief Complaint: Slurred speech HPI Narrative VANESSA HERNANDEZ, is a 78 F who presented to the emergency department at [facility] on 09/26/2023 with slurred speech. Patient lives alone and waslast known well at about 8 PM last evening. The patient called her neighbor today and noted that her speech was garbled and contacted EMS. Stroke alert wascalled prior to arrival. Stroke team workup was pursued and she was found to have an NIH of 5 on presentation with 1 for level of consciousness, 1 for right facial palsy, 1 for sensory, 1 for dysarthria and 1 for extinction/attention. She is not a TNK candidate due to timing of last known well. CT of the brain was unremarkable. CTA of the head and neck was read as unremarkable [facility] had conversation with the stroke neurologist at [facility] and they felt that there was some mild stenosis intracranially and recommended an IV fluid bolus to keep her blood pressure up some to potentially help with symptoms. Patient is also complaining of bilateral shoulder pain thatstarted about 2 days ago. She states it has feels like somebody is standing on her shoulders and indicates that it has affected her mobility. Vital signs show temperature of 98.2, heart rate 90, blood pressure was 121/68, respiratory was 22 and oxygen saturations are 96 to 98% on room air. CBC showeda mild leukocytosis with a white count of 13.6 and a mild anemia that seems to be microcytic with a hemoglobin 11.3. Platelet count was normal. Coags were normal. Chemistry panel was overall unremarkable other than some mild hypokalemia with a potassium of 3.1. Her troponin was 8. Again, CTA of the head and neck were overtly unremarkable however the neurologist felt there was some stenosis in intracranially in the CTA. Chest x-ray showed no acute cardiopulmonary process. EKG was normal sinus rhythm without any ST-T wave changes concerning for acute ischemia and normal intervals. Stroke neurologist recommended she be loaded with Plavix now at 300 mg and starta full dose aspirin with ongoing aspirin Plavix after admission. [facility] Medical History (Updated 09/26/23 @ 15:[address] Mona Chery, ) Abdominal pain Anxiety Asthma Chronic back pain Chronic bronchitis Chronic headaches Confusion Dark stools DDD (degenerative disc disease) Depression Essential (primary) hypertension Frequent falls Generalized weakness GERD (gastroesophageal reflux disease) H/O emotional problems Hyperlipidemia Hypokalemia IBS (irritable bowel syndrome) Insomnia Iron deficiency anemia Left-sided chest wall pain Localized swelling of chest wall Migraines Neuropathy Non-smoker Obesity Osteoarthritis Osteoarthritis of left knee Overactive bladder Pneumonia Rheumatoid arthritis Stroke/cerebrovascular accident TIA (transient ischemic attack) Vision problems Vitamin D deficiency Home Medications acetaminophen 500 mg tablet 1,000 mg (2 x 500 mg) PO Q6H PRN PRN Mild Pain (- 10/01) #90 tabs 02/07/19 [Rx Last Taken 08/12/23 16:15 1,000 mg] cholecalciferol (vitamin D3) 50 mcg (2,000 unit) capsule 4,000 unit PO DAILY SUPPLEMENT 09/10/19 [History Last Taken 09/24/20] biotin 2,500 mcg capsule 1 cap PO DAILY supplement 09/24/20 [History Last Taken 09/24/20] multivitamin with minerals 1 tab PO DAILY supplement 09/24/20 [History Last Taken 09/24/20] sumatriptan succinate 25 mg tablet See Rx Instructions PO .COMPLEX #14 tabs 06/14/22 [Rx Last Taken Unknown] sumatriptan succinate 6 mg/0.5 mL subcutaneous pen injector (Imitrex STATdose Pen) 6 mg (0.5 mL) subcut Q1-4H PRN migraine headache #1 mL 06/14/22 [Rx Last Taken Unknown] side rails for bed #1 ea 07/15/22 [Rx Last Taken Unknown] walker (Ultra-Light Rollator misc) #1 ea 08/23/22 [Rx Last Taken Unknown] ropinirole 0.5 mg tablet 0.5 mg PO QHS restless legs #90 tabs 11/12/22 [Rx Last Taken Unknown] sertraline 100 mg tablet 200 mg (2 x 100 mg) PO DAILY mood #180 tabs 11/12/22 [Rx Last Taken Unknown] potassium chloride 20 mEq tablet,extended release 20 meq PO DAILY supplement #90tabs 02/15/23 [Rx Last Taken Unknown] rosuvastatin 10 mg tablet 10 mg PO QHS CHOLESTEROL #90 tabs 02/15/23 [Rx Last Taken Unknown] omeprazole 40 mg capsule,delayed release 40 mg PO DAILY stomach #90 caps 02/21/23 [Rx Last Taken Unknown] hydrocodone-acetaminophen 5-325mg 5mg-325mg 0.25 tab PO QHS 04/13/23 [History Last Taken Unknown] hydrochlorothiazide 25 mg tablet 25 mg PO DAILY water pill #90 tabs 07/29/23 [Rx Last Taken Unknown] amlodipine 2.5 mg tablet 2.5 mg PO DAILY blood pressure #30 tabs 08/22/23 [Rx Last Taken Unknown] gabapentin 100 mg capsule 100 mg PO DAILY #60 caps 08/30/23 [Rx Last Taken Unknown] metoprolol succinate 50 mg tablet,extended release 24 hr 50 mg PO BID HTN #90 tabs 08/31/23 [Rx Last Taken Unknown] Allergy/AdvReac Type Severity Reaction Status Date / Time adhesive tape Allergy Severe Area Sore Verified 09/26/23 13:53 cefpodoxime [From Vantin] Allergy Unknown Unknown Verified 09/26/23 13:53 codeine Allergy Unknown Unknown Verified 09/26/23 13:53 metronidazole [From Flagyl] Allergy Unknown Unknown Verified 09/26/23 13:53 sulfamethoxazole Allergy Unknown Unknown Verified 09/26/23 13:53 [From Bactrim] trimethoprim [From Bactrim] Allergy Unknown Unknown Verified 09/26/23 13:53 Sulfa (Sulfonamide Allergy Unknown Verified 09/26/23 13:53 Antibiotics) Family History Sister Anesthesia complication Breast cancer Hypertension Cancer Thyroid, rectal, kidney Thyroid disorder Diabetes Mother Arthritis Pancreatic cancer Depression Diabetes Father Colon cancer Hypertension CVA (cerebral vascular accident) Sister Cancer rectal/kidney/medullary Thyroid cancer Surgical History (Updated 09/26/23 @ 15:25 by Nenita Baker) History of appendectomy History of back surgery History of History of cholecystectomy History of gastric surgery History of hernia repair History of hysterectomy History of left heart catheterization (10/14/20) History of left knee replacement History of right knee joint replacement 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 History of total right knee replacement Hx of breast reduction, elective Social History (Updated 09/26/23 @ 15:[address] Mona Chery DO) household members: none housing: apartment current occupational status: retired Smoking Status: Former smoker alcohol intake: never substance use type: does not use what type of physical activity do you participate in: none ROS Constitutional Constitutional: Denies anorexia, change in weight, chills, fatigue, fever(s), malaise, night sweats, weakness or other Eyes Eyes: Denies blurry vision, change in eye color, change in vision, discharge from eye(s), double vision, erythema, eye pain, loss of vision or other ENT HEENT: Denies abnormal hearing, dysphagia, ear pain, epistaxis, headache(s), hearing loss, nasal congestion, nasal discharge, post nasal drip, sinus pressure, sore throat or other Cardiovascular Cardiovascular: Denies chest pain, claudication, dyspnea on exertion, edema, lightheadedness, orthopnea, palpitations, paroxysmal nocturnal dyspnea, rapid heart rate, syncope or other Respiratory/Chest Respiratory/Chest: Denies cough, dyspnea, excessive phlegm production, hemoptysis, productive cough, shortness of breath at rest, shortness of breath with exertion, wheezing or other Gastrointestinal Gastrointestinal: Denies abdominal pain, coffee ground emesis, constipation, diarrhea, dyspepsia, hematemesis, hematochezia, loose stools, melena, nausea, vomiting or other Genitourinary Genitourinary: Denies burning urination, difficulty urinating, dysuria, hematuria, nocturia, urinary frequency, urinary hesitancy, urinary incontinence,urinary urgency or other Musculoskeletal Musculoskeletal: Reports arthralgias and other Details: Patient complains of bilateral shoulder pain that started 2 days ago Neurologic Neurologic: Reports abnormal speech, focal weakness and paresthesias; Denies abnormal gait, confusion, disequilibrium, dizziness, headache(s), numbness, seizure-like activity, seizures, syncope, tingling, tremor(s) or other Psychiatric Psychiatric: Denies anxiety, depression, homicidal ideation, suicidal ideation or other Endocrine Endocrinology: Denies change in body appearance, cold intolerance, excessive sweating, heat intolerance, polydipsia, polyuria or other Allergic/Immunologic Allergic/Immunologic: Denies rhinitis, hives, eczemia, asthma or other Vital Signs Vital Signs Vital Signs: 09/26/23 13:39 09/26/23 13:45 09/26/23 13:45 Temperature 98.2 F Temperature Source Temporal Pulse Rate 90 75 Respiratory Rate 22 H 20 H Blood Pressure 121/68 H 121/68 H Blood Pressure Mean 85 85 Pulse Ox 96 98 98 Oxygen Delivery Method Room Air Room Air 09/26/23 14:15 Temperature Temperature Source Pulse Rate 78 Respiratory Rate 18 Blood Pressure 139/92 H Blood Pressure Mean 107 Pulse Ox 96 Oxygen Delivery Method Room Air Weight Weight: 102.05 kg Body Mass Index (BMI) 38.6 Physical Exam Const alert, oriented x3, no apparent distress and well nourished; Negative for average body habitus or healthy appearing Constitutional Narrative: Obese, older, white female, lying in bed, speech is somewhat garbled and moderately difficult to understand, appears comfortable currently nontoxic General Appearance: cooperative HEENT normocephalic, head/scalp atraumatic and moist oral mucous membranes; Negative for hearing grossly normal bilaterally HEENT Narrative: Dentures in place, Mallampati 3, no thrush, mild hearing deficits Eyes PERRL, EOMs intact bilaterally and conjunctivae normal Eyes Narrative: No scleral icterus Neck no lymphadenopathy and supple Neck Narrative: Trachea midline, neck is short and thick, no thyroid enlargement noted Resp normal respiratory effort, no retractions, no use of accessory muscles and clearto auscultation bilaterally Auscultation: Negative for rales, rhonchi or wheezes Cardio regular rate, regular rhythm, S1 normal heart sound, S2 normal heart sound, no murmurs, no rub, no gallops and no clicks Cardio Narrative: Few ectopic beats GI normal to inspection, nondistended, normoactive bowel sounds, soft to palpation and non-tender Extremity no clubbing, cyanosis or edema Extremity Narrative: Pedal pulses are 2+, decreased shoulder range of motion bilaterally with pain during movement and pain with gentle palpation of both shoulders Skin no rashes or lesions noted, no jaundice, no petechiae and no mottling Skin Narrative: Skin is dry with lesions consistent with seborrheic keratoses, no wounds Neuro oriented x3, No CN's II-XII intact bilaterally and moves all extremities Neuro Narrative: Speech is somewhat garbled and moderately difficult to understand Speech: Negative for speech normal Psych affect normal Psych Narrative: Very pleasant, interacts appropriately Results Lab / Micro Data Attestation: I reviewed the patient's lab results. 09/26/23 13:40 09/26/23 13:40 Labs: Laboratory Results - last 24 hr 09/26/23 13:40: WBC 13.6 H, RBC 4.89, Hgb 11.3 L, Hct 38.1, MCV 77.9 L, MCH 23.1L, MCHC 29.7 L, RDW Std Deviation 51.7 H, RDW Coeff of Karon 18.6 H, Plt Count 333, MPV 9.2, Immature Gran % (Auto) 0.700, Neut % (Auto) 74.3 H, Lymph % (Auto)12.2 L, Menard % (Auto) 10.3 H, Eos % (Auto) 2.1, Baso % (Auto) 0.4, Absolute Neuts (auto) 10.1 H, Absolute Lymphs (auto) 1.66, Nucleated RBC % 0, PT 14.8, INR 1.2, APTT 35.8, Sodium 137, Potassium 3.1 L, Chloride 101, Carbon Dioxide 31.0, Anion Gap 5, BUN 20 H, Creatinine 0.88, Estim Creat Clear Calc 61.25, Est GFR (MDRD) Af Amer 80, Est GFR (MDRD) Non-Af 66, BUN/Creatinine Ratio 22.8 H, Glucose 111 H, Calcium 9.4, Troponin I High Sens 8 Imaging Radiology Impression Brain CT 09/26/23 13:24 IMPRESSION: No acute intracranial process identified. Chronic involutional and white matter changes. Electronically Signed: Yvonne Florian MD at 13:36 EST Reading Location ID and State: [facility] / [place] Tel , Service support , ADDENDUM: 09/26/23 1354 IMPRESSION: No acute intracranial process identified. Chronic involutional and white matter changes. N.B. : The above Results were Read Back by Yvonne Florian MD to Joshua Santiago MD, and understanding confirmed on 09/26/2023 13:47:48 (ET). Electronically Signed: Yvonne Florian MD at 13:36 EST Reading Location ID and State: [facility] / [place] Tel , Service support , Head/Neck CTA 09/26/23 13:24 IMPRESSION: No evidence for significant stenosis or occlusion in the carotid or vertebral arteries of the neck. No evidence for large vessel occlusion in the [place]. Electronically Signed: Yvonne Florian MD at 14:03 EST Reading Location ID and State: [facility] / [place] Tel , Service support , ADDENDUM: 09/26/23 1412 IMPRESSION: No evidence for significant stenosis or occlusion in the carotid or vertebral arteries of the neck. No evidence for large vessel occlusion in the [place]. N.B. : The above Results were Read Back by Yvonne Florian MD to Joshua Santiago MD, and understanding confirmed on 09/26/2023 14:05:28 (ET). Electronically Signed: Yvonne Florian MD at 14:03 EST , Chest X-Ray 09/26/23 14:45 IMPRESSION: No acute cardiopulmonary process identified. Electronically Signed: Yvonne Florian MD at 15:06 EST , Assessment & Plan Assessment/Plan (1) Facial droop due to acute cerebrovascular accident (CVA): (2) 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: (3) Hypokalemia: (4) Microcytic anemia: (5) Arthralgia: PLAN: Plan Acute ischemic stroke -Patient was last known well last evening at 8 PM -Not TNK candidate due to timing of presentation -Stroke neurologist felt that she saw stroke on CT of the brain and some stenotic area in her CTA of the brain for which she recommended 500 cc fluid bolus to maintain elevated blood pressure -Check lipids -Check hemoglobin A1c -Hold home antihypertensives and allow for permissive hypertension -Consider further IV fluid bolus for worsening symptoms -Check MRI of the brain -Check echocardiogram -Patient was loaded with Plavix in the emergency department and will start 75 mgtomorrow -Aspirin 81 mg daily PT/OT consultation -Speech therapy consultation Bilateral shoulder pain -Check sed rate CRP to rule out polymyalgia rheumatica -PT/OT consultation Microcytic anemia -Hemoglobin is only mildly low at 11.3 -Check iron studies -Check stool guaiac Hypokalemia -Will replete IV as there may be some swallowing deficits -Repeat lab in a.m. -Check a magnesium level Dysarthria/possible dysphagia -Speech therapy consultation -N.p.o. for now -Bedside swallow eval History of migraine headache -Hold sumatriptan's for now Hypertension -Hold home amlodipine -Hold home hydrochlorothiazide -Hold metoprolol -Allow for permissive hypertension Hyperlipidemia -Lipid panel is pending -Patient is on rosuvastatin 10 mg at home so we will continue with atorvastatin 80 mg here GERD -Continue home PPI Neuropathy -Continue home gabapentin Restless leg syndrome -Continue home Requip stiffness Depression -Continue home sertraline DVT prophylaxis -Lovenox subcu daily CODE STATUS -DNR CCA with no intubation as discussed prior to admission Charges/Coding Visit Charges Inpatient E&M: 95045 Init Hosp L2 09/26/23 1535 <Electronically signed by Mona Chery DO> Cosigner Signature (if applicable): CC: Dr. Mona Chery DO; Dr. Moon Rayo MD~ Signed [facility] Work Phone: [phone] Discharge summary Author Joshua Santiago [facility] September 26, 2023 2:32pm Note Date/Time September 26, 2023 1:37 pm [facility] Medical Records Department [address] [place] [address] Emergency Department Summary 09/26/23 MR#: [id number] Acct: [id number] Name: VANESSA HERNANDEZ Rep #:[id number] : 1945 78 From: Joshua Santiago MD PCP: Dr. Moon Rayo MD Status:REG ER Location: ED HPI History of Present Illness Chief Complaint: Stroke Alert Detail of Chief Complaint: Positive [place] score per EMS Informant: patient and EMS Onset/Context/Timing Onset: Yesterday Context: Sudden Onset Timing: Continuous Quality and Location: Positive for Slurred Speech Onset: Last known well 1999 last evening Current Severity: Mild Maximum Severity: Mild Worsened by: Nothing Relieved by: Nothing Associated Symptoms Associated Symptoms: Negative for Headache, Nausea, Vomiting or Chest Pain Narrative Narrative: Patient is an elderly woman who lives alone. She has history of hyperlipidemia,essential hypertension, iron deficiency anemia, GERD, irritable bowel syndrome and iron deficiency anemia. There is also history of frequent falls. Patient last known well 1999September 24. Patient called her neighbor. Neighbor noted her speech was garbled and contacted EMS. EMS notified us prior to arrival. Patient was initially evaluated in the EMS bay and taken immediately to radiology suite for CT and CTA of the head and neck. Patient denies prior history of stroke. Prior similar symptoms: No Recent Illness/Hospitalization: No PFSH PFSH Medical History Abdominal pain Asthma Chronic back pain Chronic bronchitis Chronic headaches Confusion Dark stools DDD (degenerative disc disease) Depression Essential (primary) hypertension Frequent falls Generalized weakness GERD (gastroesophageal reflux disease) H/O emotional problems Hyperlipidemia Hypokalemia IBS (irritable bowel syndrome) Insomnia Iron deficiency anemia Left-sided chest wall pain Localized swelling of chest wall Neuropathy Obesity Osteoarthritis Osteoarthritis of left knee Overactive bladder Pneumonia Vision problems Vitamin D deficiency Home Medications acetaminophen 500 mg tablet 1,000 mg (2 x 500 mg) PO Q6H PRN PRN Mild Pain (- 10/01) #90 tabs 02/07/19 [Rx Last Taken 08/12/23 16:15 1,000 mg] cholecalciferol (vitamin D3) 50 mcg (2,000 unit) capsule 4,000 unit PO DAILY SUPPLEMENT 09/10/19 [History Last Taken 09/24/20] biotin 2,500 mcg capsule 1 cap PO DAILY supplement 09/24/20 [History Last Taken 09/24/20] multivitamin with minerals 1 tab PO DAILY supplement 09/24/20 [History Last Taken 09/24/20] sumatriptan succinate 25 mg tablet See Rx Instructions PO .COMPLEX #14 tabs 06/14/22 [Rx Last Taken Unknown] sumatriptan succinate 6 mg/0.5 mL subcutaneous pen injector (Imitrex STATdose Pen) 6 mg (0.5 mL) subcut Q1-4H PRN migraine headache #1 mL 06/14/22 [Rx Last Taken Unknown] side rails for bed #1 ea 07/15/22 [Rx Last Taken Unknown] walker (Ultra-Light Rollator misc) #1 ea 08/23/22 [Rx Last Taken Unknown] ropinirole 0.5 mg tablet 0.5 mg PO QHS restless legs #90 tabs 11/12/22 [Rx Last Taken Unknown] sertraline 100 mg tablet 200 mg (2 x 100 mg) PO DAILY mood #180 tabs 11/12/22 [Rx Last Taken Unknown] potassium chloride 20 mEq tablet,extended release 20 meq PO DAILY supplement #90tabs 02/15/23 [Rx Last Taken Unknown] rosuvastatin 10 mg tablet 10 mg PO QHS CHOLESTEROL #90 tabs 02/15/23 [Rx Last Taken Unknown] omeprazole 40 mg capsule,delayed release 40 mg PO DAILY stomach #90 caps 02/21/23 [Rx Last Taken Unknown] hydrocodone-acetaminophen 5-325mg 5mg-325mg 0.25 tab PO QHS 04/13/23 [History Last Taken Unknown] hydrochlorothiazide 25 mg tablet 25 mg PO DAILY water pill #90 tabs 07/29/23 [Rx Last Taken Unknown] amlodipine 2.5 mg tablet 2.5 mg PO DAILY blood pressure #30 tabs 08/22/23 [Rx Last Taken Unknown] gabapentin 100 mg capsule 100 mg PO DAILY #60 caps 08/30/23 [Rx Last Taken Unknown] metoprolol succinate 50 mg tablet,extended release 24 hr 50 mg PO BID HTN #90 tabs 08/31/23 [Rx Last Taken Unknown] Allergy/AdvReac Type Severity Reaction Status Date / Time adhesive tape Allergy Severe Area Sore Verified 09/26/23 13:53 cefpodoxime [From Vantin] Allergy Unknown Unknown Verified 09/26/23 13:53 codeine Allergy Unknown Unknown Verified 09/26/23 13:53 metronidazole [From Flagyl] Allergy Unknown Unknown Verified 09/26/23 13:53 sulfamethoxazole Allergy Unknown Unknown Verified 09/26/23 13:53 [From Bactrim] trimethoprim [From Bactrim] Allergy Unknown Unknown Verified 09/26/23 13:53 Sulfa (Sulfonamide Allergy Unknown Verified 09/26/23 13:53 Antibiotics) Family History Sister Anesthesia complication Breast cancer Hypertension Cancer Thyroid, rectal, kidney Thyroid disorder Diabetes Mother Arthritis Pancreatic cancer Depression Diabetes Father Colon cancer Hypertension CVA (cerebral vascular accident) Sister Cancer rectal/kidney/medullary Thyroid cancer Surgical History History of back surgery History of History of cholecystectomy History of gastric surgery History of hernia repair History of hysterectomy History of left heart catheterization (10/14/20) History of left knee replacement History of right knee joint replacement 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 History of total right knee replacement Hx of breast reduction, elective Social History household members: none housing: apartment Smoking Status: Former smoker alcohol intake: never substance use type: does not use what type of physical activity do you participate in: none ROS ROS ED Constitutional Constitutional ED: Denies chills, fever(s) or subjective Eyes Eyes: Denies blurry vision, change in vision or diplopia ENT ENT ED: Denies ear pain, rhinorrhea or sore throat Cardiovascular Cardiovascular: Denies chest pain or palpitations Respiratory/Chest Respiratory/Chest: Denies cough, dyspnea or dyspnea on exertion Gastrointestinal Gastrointestinal: Denies abdominal pain, nausea or vomiting Genitourinary Genitourinary ED: Denies dysuria, hematuria or urinary frequency Musculoskeletal Musculoskeletal: Denies arthralgias or myalgias Integumentary Denies rash Neurologic Neurologic: Reports weakness; Denies headache(s) Hematologic/Lymphatic Hematologic/Lymphatic: Denies easy bruising EXAM Physical Exam Const Vital Signs: 09/26/23 13:39 09/26/23 13:45 09/26/23 13:45 Temperature 98.2 F Temperature Source Temporal Pulse Rate 90 75 Respiratory Rate 22 H 20 H Blood Pressure 121/68 H 121/68 H Blood Pressure Mean 85 85 Pulse Ox 96 98 98 Oxygen Delivery Method Room Air Room Air 09/26/23 14:15 Temperature Temperature Source Pulse Rate 78 Respiratory Rate 18 Blood Pressure 139/92 H Blood Pressure Mean 107 Pulse Ox 96 Oxygen Delivery Method Room Air Positive well nourished, well developed and obese Constitutional Narrative: Patient's speech is slurred. She is awake but not alert. General Appearance ED: well developed and NAD Nutritional Appearance: obese HEENT Reports dry mucous membranes atraumatic Mouth ED: Yes dry mucous membranes Mouth: dry mucous membranes Eyes PERRL and EOMs intact bilaterally Eyes Narrative: There is no nystagmus. There is no visual field cut. General Eye ED: Negative for pale conjunctiva or scleral icterus Neck no lymphadenopathy, supple and no JVD Chest Wall inspection of chest normal and palpation of chest normal Resp normal respiratory effort and clear to auscultation bilaterally Cardio no murmurs Rate: regular rate Rhythm: regular rhythm Heart Sounds: S1 normal and S2 normal GI normal to inspection, nondistended, normoactive bowel sounds, soft to palpation,non-tender and non-distended Auscultation: normoactive bowel sounds Back/Spine no CVA tenderness Extremity normal to inspection Neuro oriented x3, No CN's II-XII intact bilaterally and No no sensory deficits noted Moore Coma Scale: document GCS findings Spontaneous Obeys Commands Oriented 15 Sensorium / Orientation: Negative for alert Motor Exam: strength 5/5 throughout Psych mental status grossly normal Skin no wounds General Skin Exam: Negative for jaundice Lesions: no lesions Rashes: no rashes NIHSS NIHSS Initial: 1a Level of Consciousness: 1 1b LOC Questions (Score 2 if aphasic/stupor): 0 1c LOC Commands (Only score 1st attempt): 0 2 Best Gaze (If aphasic, use reflexive mvmts.): 0 3 Visual: 0 4 Facial Palsy: 1 5 Motor Arm Right (UN = amputation/fusion): 0 5 Motor Arm Left: 0 6 Motor Leg Right: 0 6 Motor Leg Left: 0 7 Limb ataxia (Only + if out of proportion): 0 8 Sensory (Aphasia/stupor=0 or 1, coma=2): 1 9 Best Language: 0 10 Dysarthria (mute, coma=2, intubated=UN): 1 11 Extinction and Inattention (only scored if +): 1 Total Score: 5 MDM MDM MDM Narrative Medical decision making narrative: Patient presents with strokelike symptoms. Stroke team was called. Patient nota candidate for TNK. CT of the head without contrast and CTA of the head and neck to evaluate for any significant stenosis. Also rule out intracranial bleedsince she has mild headache. History & Record Review Discussion w/independent historian: EMS personnel Additional record(s) reviewed:: Prior ED visit (Most recently seen for cystitis. She also has visits for multiple falls, electrolyte abnormalities) and Prior labs Lab Data Attestation: I reviewed the patient's lab results. Lab results narrative: White count is elevated with slight shift. This is nonspecific. Coags are normal. Electrolyte panel is unremarkable. Troponin is normal. Labs: Laboratory Results - last 24 hr 09/26/23 13:40 WBC 13.6 H RBC 4.89 Hgb 11.3 L Hct 38.1 MCV 77.9 L MCH 23.1 L MCHC 29.7 L RDW Std Deviation 51.7 H RDW Coeff of Karon 18.6 H Plt Count 333 MPV 9.2 Immature Gran % (Auto) 0.700 Neut % (Auto) 74.3 H Lymph % (Auto) 12.2 L Menard % (Auto) 10.3 H Eos % (Auto) 2.1 Baso % (Auto) 0.4 Absolute Neuts (auto) 10.1 H Absolute Lymphs (auto) 1.66 Nucleated RBC % 0 PT 14.8 INR 1.2 APTT 35.8 Sodium 137 Potassium 3.1 L Chloride 101 Carbon Dioxide 31.0 Anion Gap 5 BUN 20 H Creatinine 0.88 Estim Creat Clear Calc 61.25 Est GFR (MDRD) Af Amer 80 Est GFR (MDRD) Non-Af 66 BUN/Creatinine Ratio 22.8 H Glucose 111 H Calcium 9.4 Troponin I High Sens 8 Radiography Diagnostic Testing: Clinical Impression(s) from Imaging Studies Brain CT 09/26/23 13:24 IMPRESSION: No acute intracranial process identified. Chronic involutional and white matter changes. Electronically Signed: Yvonne Florian MD at 13:36 EST Reading Location ID and State: [facility] / [place] Tel , Service support , ADDENDUM: 09/26/23 1354 IMPRESSION: No acute intracranial process identified. Chronic involutional and white matter changes. N.B. : The above Results were Read Back by Yvonne Florian MD to Joshua Santiago MD, and understanding confirmed on 09/26/2023 13:47:48 (ET). Electronically Signed: Yvonne Florian MD at 13:36 EST , Head/Neck CTA 09/26/23 13:24 IMPRESSION: No evidence for significant stenosis or occlusion in the carotid or vertebral arteries of the neck. No evidence for large vessel occlusion in the [place]. Electronically Signed: Yvonne Florian MD at 14:03 EST , ADDENDUM: 09/26/23 1412 IMPRESSION: No evidence for significant stenosis or occlusion in the carotid or vertebral arteries of the neck. No evidence for large vessel occlusion in the [place]. N.B. : The above Results were Read Back by Yvonne Florian MD to Joshua Santiago MD, and understanding confirmed on 09/26/2023 14:05:28 (ET). Electronically Signed: Yvonne Florian MD at 14:03 EST , EKG Initial EKG: Attestation: I personally reviewed and interpreted this EKG as follows: Interpretation: Sinus Rhythm (Rate is 74. Computer is reading A-fib whichis incorrect. WV interval is normal. Cures duration is 84 ms. QT duration 392ms. [place] is normal. There is artifact that the computer is most likely readingis A-fib.) Prior: Unchanged (October 05, 2020) Management Discussion w/another healthcare provider: Hospitalist and Radiologist (Radiologist contacted me with respect to the CT without contrast and the CTA ofthe head and neck. All were negative. Therefore will contact hospitalist for admission.) Stroke Documentation Questions Stroke Team Activated: Yes Reviewed Inclusion/Exclusion criteria: No IV Thrombolytic Administered: No No contraindications from thrombolytic administration: No Discharge Plan Dx/Rx/DC Orders Clinical Impression: 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, Hyperlipidemia, Essential (primary) hypertension, Facial droop due to acute cerebrovascular accident (CVA), Herman-inattention Disposition Disposition: Acute Care Hospital [facility] What to do if you have Problems For any increased pain, shortness of breath, bleeding, nausea or vomiting, chestpain, or any unexpected problems, contact your Primary Care Provider. Call [facility] ([phone]) or report to the closest Emergency Room. Call 911 if necessary. 09/26/23 1430 <Electronically signed by Joshua Santiago MD> Cosigner Signature (if applicable): CC: Dr. Moon Rayo MD ~ Signed ADDENDUM by Dr. Joshua Santiago MD on 09/26/23 at 1432 Spoke with [facility] neurologist Dr. Ford. She recommended aspirin, Plavix 300 mg p.o. and fluid bolus since there was currently some mild stenosis that she saw on the CTA. Case was discussed with Dr. Chery the hospitalist. She will be a full admit to PCU. 09/26/23 143<Electronically signed by Joshua Santiago MD> Cosigner Signature (if applicable): cc: Dr. Moon Rayo MD ~* Signed [facility] Work Phone: [phone] 792-449803-04-2024 Discharge summary Author Joshua Santiago [facility] September 26, 2023 2:32pm Note Date/Time September 26, 2023 1:37 pm [facility] Medical Records Department [address] [place] [address] Emergency Department Summary 09/26/23 MR#: [id number] Acct: [id number] Name: VANESSA HERNANDEZ Rep #:[id number] : 1945 78 From: Joshua Santiago MD PCP: Dr. Moon Rayo MD Status:REG ER Location: ED HPI History of Present Illness Chief Complaint: Stroke Alert Detail of Chief Complaint: Positive [place] score per EMS Informant: patient and EMS Onset/Context/Timing Onset: Yesterday Context: Sudden Onset Timing: Continuous Quality and Location: Positive for Slurred Speech Onset: Last known well 1999 last evening Current Severity: Mild Maximum Severity: Mild Worsened by: Nothing Relieved by: Nothing Associated Symptoms Associated Symptoms: Negative for Headache, Nausea, Vomiting or Chest Pain Narrative Narrative: Patient is an elderly woman who lives alone. She has history of hyperlipidemia,essential hypertension, iron deficiency anemia, GERD, irritable bowel syndrome and iron deficiency anemia. There is also history of frequent falls. Patient last known well 1999September 24. Patient called her neighbor. Neighbor noted her speech was garbled and contacted EMS. EMS notified us prior to arrival. Patient was initially evaluated in the EMS bay and taken immediately to radiology suite for CT and CTA of the head and neck. Patient denies prior history of stroke. Prior similar symptoms: No Recent Illness/Hospitalization: No PFSH PFSH Medical History Abdominal pain Asthma Chronic back pain Chronic bronchitis Chronic headaches Confusion Dark stools DDD (degenerative disc disease) Depression Essential (primary) hypertension Frequent falls Generalized weakness GERD (gastroesophageal reflux disease) H/O emotional problems Hyperlipidemia Hypokalemia IBS (irritable bowel syndrome) Insomnia Iron deficiency anemia Left-sided chest wall pain Localized swelling of chest wall Neuropathy Obesity Osteoarthritis Osteoarthritis of left knee Overactive bladder Pneumonia Vision problems Vitamin D deficiency Home Medications acetaminophen 500 mg tablet 1,000 mg (2 x 500 mg) PO Q6H PRN PRN Mild Pain (1- 10/01) #90 tabs 02/07/19 [Rx Last Taken 08/12/23 16:15 1,000 mg] cholecalciferol (vitamin D3) 50 mcg (2,000 unit) capsule 4,000 unit PO DAILY SUPPLEMENT 09/10/19 [History Last Taken 09/24/20] biotin 2,500 mcg capsule 1 cap PO DAILY supplement 09/24/20 [History Last Taken 09/24/20] multivitamin with minerals 1 tab PO DAILY supplement 09/24/20 [History Last Taken 09/24/20] sumatriptan succinate 25 mg tablet See Rx Instructions PO .COMPLEX #14 tabs 06/14/22 [Rx Last Taken Unknown] sumatriptan succinate 6 mg/0.5 mL subcutaneous pen injector (Imitrex STATdose Pen) 6 mg (0.5 mL) subcut Q1-4H PRN migraine headache #1 mL 06/14/22 [Rx Last Taken Unknown] side rails for bed #1 ea 07/15/22 [Rx Last Taken Unknown] walker (Ultra-Light Rollator misc) #1 ea 08/23/22 [Rx Last Taken Unknown] ropinirole 0.5 mg tablet 0.5 mg PO QHS restless legs #90 tabs 11/12/22 [Rx Last Taken Unknown] sertraline 100 mg tablet 200 mg (2 x 100 mg) PO DAILY mood #180 tabs 11/12/22 [Rx Last Taken Unknown] potassium chloride 20 mEq tablet,extended release 20 meq PO DAILY supplement #90tabs 02/15/23 [Rx Last Taken Unknown] rosuvastatin 10 mg tablet 10 mg PO QHS CHOLESTEROL #90 tabs 02/15/23 [Rx Last Taken Unknown] omeprazole 40 mg capsule,delayed release 40 mg PO DAILY stomach #90 caps 02/21/23 [Rx Last Taken Unknown] hydrocodone-acetaminophen 5-325mg 5mg-325mg 0.25 tab PO QHS 04/13/23 [History Last Taken Unknown] hydrochlorothiazide 25 mg tablet 25 mg PO DAILY water pill #90 tabs 07/29/23 [Rx Last Taken Unknown] amlodipine 2.5 mg tablet 2.5 mg PO DAILY blood pressure #30 tabs 08/22/23 [Rx Last Taken Unknown] gabapentin 100 mg capsule 100 mg PO DAILY #60 caps 08/30/23 [Rx Last Taken Unknown] metoprolol succinate 50 mg tablet,extended release 24 hr 50 mg PO BID HTN #90 tabs 08/31/23 [Rx Last Taken Unknown] Allergy/AdvReac Type Severity Reaction Status Date / Time adhesive tape Allergy Severe Area Sore Verified 09/26/23 13:53 cefpodoxime [From Vantin] Allergy Unknown Unknown Verified 09/26/23 13:53 codeine Allergy Unknown Unknown Verified 09/26/23 13:53 metronidazole [From Flagyl] Allergy Unknown Unknown Verified 09/26/23 13:53 sulfamethoxazole Allergy Unknown Unknown Verified 09/26/23 13:53 [From Bactrim] trimethoprim [From Bactrim] Allergy Unknown Unknown Verified 09/26/23 13:53 Sulfa (Sulfonamide Allergy Unknown Verified 09/26/23 13:53 Antibiotics) Family History Sister Anesthesia complication Breast cancer Hypertension Cancer Thyroid, rectal, kidney Thyroid disorder Diabetes Mother Arthritis Pancreatic cancer Depression Diabetes Father Colon cancer Hypertension CVA (cerebral vascular accident) Sister Cancer rectal/kidney/medullary Thyroid cancer Surgical History History of back surgery History of History of cholecystectomy History of gastric surgery History of hernia repair History of hysterectomy History of left heart catheterization (10/14/20) History of left knee replacement History of right knee joint replacement 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 History of total right knee replacement Hx of breast reduction, elective Social History household members: none housing: apartment Smoking Status: Former smoker alcohol intake: never substance use type: does not use what type of physical activity do you participate in: none ROS ROS ED Constitutional Constitutional ED: Denies chills, fever(s) or subjective Eyes Eyes: Denies blurry vision, change in vision or diplopia ENT ENT ED: Denies ear pain, rhinorrhea or sore throat Cardiovascular Cardiovascular: Denies chest pain or palpitations Respiratory/Chest Respiratory/Chest: Denies cough, dyspnea or dyspnea on exertion Gastrointestinal Gastrointestinal: Denies abdominal pain, nausea or vomiting Genitourinary Genitourinary ED: Denies dysuria, hematuria or urinary frequency Musculoskeletal Musculoskeletal: Denies arthralgias or myalgias Integumentary Denies rash Neurologic Neurologic: Reports weakness; Denies headache(s) Hematologic/Lymphatic Hematologic/Lymphatic: Denies easy bruising EXAM Physical Exam Const Vital Signs: 09/26/23 13:39 09/26/23 13:45 09/26/23 13:45 Temperature 98.2 F Temperature Source Temporal Pulse Rate 90 75 Respiratory Rate 22 H 20 H Blood Pressure 121/68 H 121/68 H Blood Pressure Mean 85 85 Pulse Ox 96 98 98 Oxygen Delivery Method Room Air Room Air 09/26/23 14:15 Temperature Temperature Source Pulse Rate 78 Respiratory Rate 18 Blood Pressure 139/92 H Blood Pressure Mean 107 Pulse Ox 96 Oxygen Delivery Method Room Air Positive well nourished, well developed and obese Constitutional Narrative: Patient's speech is slurred. She is awake but not alert. General Appearance ED: well developed and NAD Nutritional Appearance: obese HEENT Reports dry mucous membranes atraumatic Mouth ED: Yes dry mucous membranes Mouth: dry mucous membranes Eyes PERRL and EOMs intact bilaterally Eyes Narrative: There is no nystagmus. There is no visual field cut. General Eye ED: Negative for pale conjunctiva or scleral icterus Neck no lymphadenopathy, supple and no JVD Chest Wall inspection of chest normal and palpation of chest normal Resp normal respiratory effort and clear to auscultation bilaterally Cardio no murmurs Rate: regular rate Rhythm: regular rhythm Heart Sounds: S1 normal and S2 normal GI normal to inspection, nondistended, normoactive bowel sounds, soft to palpation,non-tender and non-distended Auscultation: normoactive bowel sounds Back/Spine no CVA tenderness Extremity normal to inspection Neuro oriented x3, No CN's II-XII intact bilaterally and No no sensory deficits noted Moore Coma Scale: document GCS findings Spontaneous Obeys Commands Oriented 15 Sensorium / Orientation: Negative for alert Motor Exam: strength 5/5 throughout Psych mental status grossly normal Skin no wounds General Skin Exam: Negative for jaundice Lesions: no lesions Rashes: no rashes NIHSS NIHSS Initial: 1a Level of Consciousness: 1 1b LOC Questions (Score 2 if aphasic/stupor): 0 1c LOC Commands (Only score 1st attempt): 0 2 Best Gaze (If aphasic, use reflexive mvmts.): 0 3 Visual: 0 4 Facial Palsy: 1 5 Motor Arm Right (UN = amputation/fusion): 0 5 Motor Arm Left: 0 6 Motor Leg Right: 0 6 Motor Leg Left: 0 7 Limb ataxia (Only + if out of proportion): 0 8 Sensory (Aphasia/stupor=0 or 1, coma=2): 1 9 Best Language: 0 10 Dysarthria (mute, coma=2, intubated=UN): 1 11 Extinction and Inattention (only scored if +): 1 Total Score: 5 MDM MDM MDM Narrative Medical decision making narrative: Patient presents with strokelike symptoms. Stroke team was called. Patient nota candidate for TNK. CT of the head without contrast and CTA of the head and neck to evaluate for any significant stenosis. Also rule out intracranial bleedsince she has mild headache. History & Record Review Discussion w/independent historian: EMS personnel Additional record(s) reviewed:: Prior ED visit (Most recently seen for cystitis. She also has visits for multiple falls, electrolyte abnormalities) and Prior labs Lab Data Attestation: I reviewed the patient's lab results. Lab results narrative: White count is elevated with slight shift. This is nonspecific. Coags are normal. Electrolyte panel is unremarkable. Troponin is normal. Labs: Laboratory Results - last 24 hr 09/26/23 13:40 WBC 13.6 H RBC 4.89 Hgb 11.3 L Hct 38.1 MCV 77.9 L MCH 23.1 L MCHC 29.7 L RDW Std Deviation 51.7 H RDW Coeff of Karon 18.6 H Plt Count 333 MPV 9.2 Immature Gran % (Auto) 0.700 Neut % (Auto) 74.3 H Lymph % (Auto) 12.2 L [place] % (Auto) 10.3 H Eos % (Auto) 2.1 Baso % (Auto) 0.4 Absolute Neuts (auto) 10.1 H Absolute Lymphs (auto) 1.66 Nucleated RBC % 0 PT 14.8 INR 1.2 APTT 35.8 Sodium 137 Potassium 3.1 L Chloride 101 Carbon Dioxide 31.0 Anion Gap 5 BUN 20 H Creatinine 0.88 Estim Creat Clear Calc 61.25 Est GFR (MDRD) Af Amer 80 Est GFR (MDRD) Non-Af 66 BUN/Creatinine Ratio 22.8 H Glucose 111 H Calcium 9.4 Troponin I High Sens 8 Radiography Diagnostic Testing: Clinical Impression(s) from Imaging Studies Brain CT 09/26/23 13:24 IMPRESSION: No acute intracranial process identified. Chronic involutional and white matter changes. Electronically Signed: Yvonne Florian MD at 13:36 EST , ADDENDUM: 09/26/23 1354 IMPRESSION: No acute intracranial process identified. Chronic involutional and white matter changes. N.B. : The above Results were Read Back by Yvonne Florian MD to Joshua Santiago MD, and understanding confirmed on 09/26/2023 13:47:48 (ET). Electronically Signed: Yvonne Florian MD at 13:36 EST , Head/Neck CTA 09/26/23 13:24 IMPRESSION: No evidence for significant stenosis or occlusion in the carotid or vertebral arteries of the neck. No evidence for large vessel occlusion in the [place]. Electronically Signed: Yvonne Florian MD at 14:03 EST , ADDENDUM: 09/26/23 1412 IMPRESSION: No evidence for significant stenosis or occlusion in the carotid or vertebral arteries of the neck. No evidence for large vessel occlusion in the [place]. N.B. : The above Results were Read Back by Yvonne Florian MD to Joshua Santiago MD, and understanding confirmed on 09/26/2023 14:05:28 (ET). Electronically Signed: Yvonne Florian MD at 14:03 EST , EKG Initial EKG: Attestation: I personally reviewed and interpreted this EKG as follows: Interpretation: Sinus Rhythm (Rate is 74. Computer is reading A-fib whichis incorrect. W[place] interval is normal. Cures duration is 84 ms. QT duration 392ms. [place] is normal. There is artifact that the computer is most likely readingis A-fib.) Prior: Unchanged (October 05, 2020) Management Discussion w/another healthcare provider: Hospitalist and Radiologist (Radiologist contacted me with respect to the CT without contrast and the CTA ofthe head and neck. All were negative. Therefore will contact hospitalist for admission.) Stroke Documentation Questions Stroke Team Activated: Yes Reviewed Inclusion/Exclusion criteria: No IV Thrombolytic Administered: No No contraindications from thrombolytic administration: No Discharge Plan Dx/Rx/DC Orders Clinical Impression: 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, Hyperlipidemia, Essential (primary) hypertension, Facial droop due to acute cerebrovascular accident (CVA), Herman-inattention Disposition Disposition: Acute Care Hospital [facility] What to do if you have Problems For any increased pain, shortness of breath, bleeding, nausea or vomiting, chestpain, or any unexpected problems, contact your Primary Care Provider. Call [facility] ([phone]) or report to the closest Emergency Room. Call 911 if necessary. 09/26/23 1430 <Electronically signed by Joshua Santiago MD> Cosigner Signature (if applicable): CC: Dr. Moon Rayo MD ~ Signed ADDENDUM by Dr. Joshua Santiago MD on 09/26/23 at 1432 Spoke with [facility] neurologist Dr. Ford. She recommended aspirin, Plavix 300 mg p.o. and fluid bolus since there was currently some mild stenosis that she saw on the CTA. Case was discussed with Dr. Chery the hospitalist. She will be a full admit to [facility]. 09/26/23 1432<Electronically signed by Joshua Santiago MD> Cosigner Signature (if applicable): cc: Dr. Moon Rayo MD ~* Signed [facility] Work Phone: 1(131) 871-941701-23-2024 Discharge summary Author Luis Miguel Freeman [facility] August 16, 2023 11:38am Note Date/Time August 16, 2023 1 1:38am [facility] Medical Records Department [address] [place] [id number] Discharge Summary 08/16/23 1135 MR#: [id number] Acct: [id number] Name: VANESSA HERNANDEZ Rep #:[id number] : 1945 78 From: Luis Miguel Wesley PCP: Dr. Moon Rayo MD Status:ADM IN Location: [place] [address] Providers Date of Admission: 08/13/23 Date of Discharge: 08/16/23 Primary Care Physician: Dr. Moon Rayo MD Reason For Visit: RIGHT LOWER EXTREMITY CELLULITI AND ACUTE CYSTITIS Diagnosis Discharge Diagnosis (1) Cellulitis: Status: Acute Code(s): L03.90 - Cellulitis, unspecified Qualifiers: Site of cellulitis: extremity Site of cellulitis of extremity: lower extremity Laterality: right Qualified Code(s): L03.115 - Cellulitis of right lower limb (2) Acute cystitis without hematuria: Status: Acute Code(s): N30.00 - Acute cystitis without hematuria (3) Hypokalemia: Status: Acute Code(s): E87.6 - Hypokalemia (4) Generalized weakness: Status: Acute Code(s): R53.1 - Weakness (5) Ambulatory dysfunction: Status: Acute Code(s): R26.2 - Difficulty in walking, not elsewhere classified Plan #Acute cellulitis of the right foot with leukocytosis of 15.2 present on admission - Admit to general medical floor on contact precautions. Stop IV clindamycin began in the ER in favor of IV vancomycin along with probiotic, vitamin D3, vitamin C and zinc. Give Tylenol as needed pain or fever. Finally,d dimer is pending at this time with patient empirically treated with full-dose Lovenox Tib-fib x-ray with no acute process and foot x-ray with moderate degenerative changes and midfoot and dorsal soft tissue swelling, D-dimer 1.47, given 1 full dose of Lovenox pending venous duplex on 08/15 and given symptoms and elevated D-dimer will continue empiric Lovenox pending DVT evaluation, also on Vanco and Cipro 08/15: Venous duplex negative for DVT. Lovenox therapeutic dose changed to prophylactic dose. 08/16: Cellulitis has resolved clinically on examination. No pain or tenderness or swelling. Patient had discharged on 4 more days of Cipro 500 mg twice daily to complete a total of 7 days of antibiotic. Prescription given. # Mild hematuria 08/15: Urine culture shows gram-positive michael 25,000 -50,000 colonies possible commensal/colonization. UTI ruled out. # Mild chronic iron deficiency anemia 08/15 hemoglobin 10.4. No active signs of bleeding. #Hypokalemia of 3 mmol/L present on admission - Give supplemental KCl and then recheck BMP in the AM to ensure correction. 08/15: Potassium replaced. 08/16: Hypokalemia resolved. #Generalized weakness with ambulatory dysfunction arising from #1 - #3 in the setting of known frequent falls previously and osteoarthritis; with chronic backpain typically treated with monthly steroid injections from pain management (marie did not receive an injection in June 2023) - PT/OT and Case Management to consult and treat on-rounds in the AM as this patient with likely require some form of subacute rehabilitation with help appreciated in advance. -08/14: Awaiting PT/OT # Essential hypertension - Continue home regimen as previous plus give as neededIV hydralazine for systolic blood pressure greater than 160 mmHg. -08/14: Patient with BP actually on the low side, holding hydrochlorothiazide Norvasc, decreased metoprolol dosing 08/16 blood pressure is in normal range. #Hyperlipidemia - Resume statin. #Migraine headaches; on as needed sumatriptan - Stable with no complaints of headache at this time. Continue as needed sumatriptan as previous. #Degenerative disc disease - Stable. #RLS - Continue Requip as previous. #Neuropathy - Stable. #Irritable bowel syndrome - Stable. #Overactive bladder - Stable. #History of pneumonia Noted. #GERD - Continue PPI. #DVT prophylaxis -as mentioned above. Discharge medication reconciliation done. Discharge follow-up instructions completed. Discharge process discussed with the patient and all questions wereanswered to patient's satisfaction. Follow with PCP in 1 to 2 weeks Total time spent, exact 35 minutes on discharge meds reconciliation, examination, coordination of care with nurses and ancillary staff, review of imaging and blood test and discussion with the patient on follow-up instructions. Medications at Discharge Home Medications acetaminophen 500 mg tablet 1,000 mg (2 x 500 mg) PO Q6H PRN PRN Mild Pain (- 10/01) #90 tabs 02/07/19 cholecalciferol (vitamin D3) 50 mcg (2,000 unit) capsule 4,000 unit PO DAILY SUPPLEMENT 09/10/19 biotin 2,500 mcg capsule 1 cap PO DAILY supplement 09/24/20 multivitamin with minerals 1 tab PO DAILY supplement 09/24/20 sumatriptan succinate 25 mg tablet See Rx Instructions PO .COMPLEX #14 tabs 06/14/22 sumatriptan succinate 6 mg/0.5 mL subcutaneous pen injector (Imitrex STATdose Pen) 6 mg (0.5 mL) subcut Q1-4H PRN migraine headache #1 mL 06/14/22 side rails for bed #1 ea 07/15/22 walker (Ultra-Light Rollator misc) #1 ea 08/23/22 ropinirole 0.5 mg tablet 0.5 mg PO QHS restless legs #90 tabs 11/12/22 sertraline 100 mg tablet 200 mg (2 x 100 mg) PO DAILY mood #180 tabs 11/12/22 amlodipine 5 mg tablet 5 mg PO DAILY blood pressure #90 tabs 02/04/23 metoprolol succinate 50 mg tablet,extended release 24 hr 50 mg PO BID HTN #90 tabs 02/15/23 potassium chloride 20 mEq tablet,extended release 20 meq PO DAILY supplement #90tabs 02/15/23 rosuvastatin 10 mg tablet 10 mg PO QHS CHOLESTEROL #90 tabs 02/15/23 omeprazole 40 mg capsule,delayed release 40 mg PO DAILY stomach #90 caps 02/21/23 hydrocodone-acetaminophen 5-325mg 5mg-325mg 0.25 tab PO QHS 04/13/23 hydrochlorothiazide 25 mg tablet 25 mg PO DAILY water pill #90 tabs 07/29/23 gabapentin 100 mg capsule 100 mg PO BID pain 08/13/23 ciprofloxacin HCl 500 mg tablet (Cipro) 500 mg PO BID 4 days #8 tabs 08/16/23 Physical Exam Narrative Seen and examined. Right lower extremity pain edema and swelling is resolved. Venous duplex negative for DVT. D-dimer was high. No fever. Physical exam General: Alert, Oriented x3, Cooperative HEENT: Atraumatic, PERRLA, EOMI, Normocephalic Oral: No Gingival or Mucosal Lesions/ Ulcerations Neck: Supple, No JVD, Negative Carotid Bruits Lungs: Air entry diminished in bilateral lung bases. No crepitation/rhonchi Cardiovascular: Regular rate, Regular Rhythm, Normal S1, Normal S2, No murmurs Abdomen: Bowel Sounds Present, Soft, Non Tender, Non-Distended : No renal angle tenderness. No suprapubic tenderness. Extremities: No edema, Capillary Refill Less than 3 Seconds Skin: No rashes, No breakdown Musculoskeletal: Bilateral TKR. Right lower leg symmetrical with left lower leg, no redness, induration or swelling. Neurological: Cranial nerves II-XII grossly intact, DTR 2+/4. No acute focal neurological deficit. Psych/Mental Status: Normal Affect, Appropriate. Weight / BMI Weight Weight: 184 lb 4.903 oz Body Mass Index (BMI) 31.4 ABG / Lab / Microbiology Data 08/16/23 07:20 08/16/23 07:20 Laboratory: Laboratory Results - last 24 hr 08/13/23 19:49: Diff Path Review Reviewed 08/14/23 05:20: Diff Path Review Reviewed 08/15/23 13:16: Vancomycin Trough 19.4 H 08/16/23 07:20: WBC 10.3, RBC 4.47, Hgb 10.2 L, Hct 34.8 L, MCV 77.9 L, MCH 22.8L, MCHC 29.3 L, RDW Std Deviation 51.4 H, RDW Coeff of Karon 18.5 H, Plt Count 313, MPV 9.1, Immature Gran % (Auto) 0.700, Neut % (Auto) 68.3, Lymph % (Auto) 17.2 L, Menard % (Auto) 11.5 H, Eos % (Auto) 1.9, Baso % (Auto) 0.4, Absolute Neuts (auto) 7.1, Absolute Lymphs (auto) 1.78, Nucleated RBC % 0, Sodium 138, Potassium 4.0, Chloride 107, Carbon Dioxide 28.0, Anion Gap 3 L, BUN 17, Creatinine 1.00, Estim Creat Clear Calc 48.50, Est GFR (MDRD) Af Amer 69, Est GFR (MDRD) Non-Af 57 L, BUN/Creatinine Ratio 17.0, Glucose 104, Calcium 9.4 Microbiology: Microbiology 08/13/23 20:41 Urine Catheter - Catheter Urine Culture - Final Lactobacillus gasseri Radiography Diagnostic Testing: Radiology Impression Venous Doppler Study 08/13/23 22:39 Interpretation Summary Deep veins of the bilateral lower extremities are patent and compressible segmentally. There is no evidence of bilateral lower extremity deep vein thrombosis. The bilateral great saphenous veins appear patent and compressible segmentally. Ordering Physician: Felipe Drew Referring Physician: Moon Rayo M.D. Performed By: Mimi Chang RVT D/C Instructions Discharge Diet: No restrictions Weight Bearing Status: Weight bearing as tolerated Call your doctor if you observe: Fever of 101 or Higher, Coldness, Increased Pain, Numbness or Tingling, Change in Color, Inability to urinate, Inability to have a bowel movement, Using more than 1 pad per hour, Shortness of breath, Dizziness, Fainting spells, Swelling in the ankles, Chest pain, Prolonged hiccupping, Increased palpitations (irregular heartbeat) and Calf discomfort When: IN 2 WEEKS Meaningful Use Info Meaningful Use Diagnoses (Choose all that apply): None applicable Discharge Plan Admission Admit Date/Time: 08/13/23 22:31 Attending Provider: Luis Miguel Freeman Primary Care Provider: Moon Rayo Consulting Providers: Felipe Drew; Dilia Best Instructions Additional Instructions / Restrictions: Advised [id number] probiotic, lactobacillus tablets, 1 tablet twice daily for 7 days. Discharge Orders/Prescriptions Prescriptions: New ciprofloxacin HCl [Cipro] 500 mg tablet 500 mg PO BID 4 Days Qty: 8 0RF Continued cholecalciferol (vitamin D3) 50 mcg (2,000 unit) capsule 4,000 unit PO DAILY hydrocodone-acetaminophen 5-325 mg tablet 0.25 tab PO QHS multivitamin with minerals 1 EACH tablet 1 tab PO DAILY biotin 2,500 MCG capsule 1 cap PO DAILY gabapentin 100 mg capsule 100 mg PO BID acetaminophen 500 mg tablet 1,000 mg PO Q6H PRN PRN (Reason: Mild Pain (-10/01)) Qty: 90 0RF sumatriptan succinate 25 mg tablet See Rx Instructions PO .COMPLEX Qty: 14 1RF Rx Instructions: take 1 tab at onset of headache; if no relief may repeat 1 tab after at least 2 hrs; max = 4 tabs/24 hr PO sumatriptan succinate [Imitrex STATdose Pen] 6 mg/0.5 mL pen injector 6 mg subcut Q1-4H PRN (Reason: migraine headache) Qty: 1 1RF Rx Instructions: do not exceed 2 doses in a 24 hour period (DME) side rails for bed 0 .Route .MEDSUPPLY Qty: 1 0RF Rx Instructions: As directed (DME) Ultra-Light Rollator Misc See Rx Instructions .Route Qty: 1 0RF Rx Instructions: As directed ropinirole 0.5 mg tablet 0.5 mg PO QHS Qty: 90 3RF Rx Instructions: administer 1-3 hours before bedtime sertraline 100 mg tablet 200 mg PO DAILY Qty: 180 3RF Rx Instructions: 200 mg PO daily; amlodipine 5 mg tablet 5 mg PO DAILY Qty: 90 3RF metoprolol succinate 50 mg tablet extended release 24 hr 50 mg PO BID Qty: 90 3RF potassium chloride 20 mEq tablet extended release 20 meq PO DAILY Qty: 90 3RF rosuvastatin 10 mg tablet 10 mg PO QHS Qty: 90 3RF omeprazole 40 mg capsule,delayed release(DR/EC) 40 mg PO DAILY Qty: 90 3RF hydrochlorothiazide 25 mg tablet 25 mg PO DAILY Qty: 90 3RF Referrals / Follow Up: Moon Rayo MD [Primary Care Provider] - 08/22/23 1:30 pm Disposition Disposition (needs filled in before D/C Order can be placed): Home, Self Care Charges/Coding Visit Charges Inpatient E&M: 54609 Disch Hosp >30min 08/16/23 1138 <Electronically signed by Luis Miguel Freeman MD> Cosigner Signature (if applicable): CC: Dr. Moon Rayo MD; Dr. Luis Miguel Freeman MD~ Signed [facility] Work Phone: 1(681) 404-993801-23-2024 Discharge summary Author Luis Miguel Freeman [facility] August 16, 2023 11:35am Note Date/Time August 16, 2023 1 1:31am [facility] Medical Records Department [address] [place] [address] Instructions for Home/Discharge Instructions 08/16/23 1036 MR#: [id number] Acct: [id number] Name: VANESSA HERNANDEZ Rep #:[id number] : 1945 78 From: Luis Miguel Wesley PCP: Dr. Moon Rayo MD Status:ADM IN Discharge Instructions Diet Discharge Diet: No restrictions Activity Discharge Activity: Return to Normal Activity Weight Bearing Status: Weight bearing as tolerated Dressing / Incision Call your doctor if you observe: Fever of 101 or Higher, Coldness, Increased Pain, Numbness or Tingling, Change in Color, Inability to urinate, Inability to have a bowel movement, Using more than 1 pad per hour, Shortness of breath, Dizziness, Fainting spells, Swelling in the ankles, Chest pain, Prolonged hiccupping, Increased palpitations (irregular heartbeat) and Calf discomfort Follow Up Care When: IN 2 WEEKS Test Results: Test results from this visit will be discussed in further detail at your follow- up appointment, if applicable. Discharge Plan Admission Admit Date/Time: 08/13/23 22:31 Attending Provider: Luis Miguel Freeman Primary Care Provider: Moon Rayo Consulting Providers: Felipe Drew; Dilia Best Instructions Additional Instructions / Restrictions: Advised [id number]-[id number] probiotic, lactobacillus tablets, 1 tablet twice daily for 7 days. Discharge Orders/Prescriptions Prescriptions: New ciprofloxacin HCl [Cipro] 500 mg tablet 500 mg PO BID 4 Days Qty: 8 0RF Continued cholecalciferol (vitamin D3) 50 mcg (2,000 unit) capsule 4,000 unit PO DAILY hydrocodone-acetaminophen 5-325 mg tablet 0.25 tab PO QHS multivitamin with minerals 1 EACH tablet 1 tab PO DAILY biotin 2,500 MCG capsule 1 cap PO DAILY gabapentin 100 mg capsule 100 mg PO BID acetaminophen 500 mg tablet 1,000 mg PO Q6H PRN PRN (Reason: Mild Pain (-10/01)) Qty: 90 0RF sumatriptan succinate 25 mg tablet See Rx Instructions PO .COMPLEX Qty: 14 1RF Rx Instructions: take 1 tab at onset of headache; if no relief may repeat 1 tab after at least 2 hrs; max = 4 tabs/24 hr PO sumatriptan succinate [Imitrex STATdose Pen] 6 mg/0.5 mL pen injector 6 mg subcut Q1-4H PRN (Reason: migraine headache) Qty: 1 1RF Rx Instructions: do not exceed 2 doses in a 24 hour period (DME) side rails for bed 0 .Route .MEDSUPPLY Qty: 1 0RF Rx Instructions: As directed (DME) Ultra-Light Rollator Misc See Rx Instructions .Route Qty: 1 0RF Rx Instructions: As directed ropinirole 0.5 mg tablet 0.5 mg PO QHS Qty: 90 3RF Rx Instructions: administer 1-3 hours before bedtime sertraline 100 mg tablet 200 mg PO DAILY Qty: 180 3RF Rx Instructions: 200 mg PO daily; amlodipine 5 mg tablet 5 mg PO DAILY Qty: 90 3RF metoprolol succinate 50 mg tablet extended release 24 hr 50 mg PO BID Qty: 90 3RF potassium chloride 20 mEq tablet extended release 20 meq PO DAILY Qty: 90 3RF rosuvastatin 10 mg tablet 10 mg PO QHS Qty: 90 3RF omeprazole 40 mg capsule,delayed release(DR/EC) 40 mg PO DAILY Qty: 90 3RF hydrochlorothiazide 25 mg tablet 25 mg PO DAILY Qty: 90 3RF Referrals / Follow Up: Moon Rayo MD [Primary Care Provider] - 08/22/23 1:30 pm Disposition Disposition (needs filled in before D/C Order can be placed): Home, Self Care 08/16/23 1135<Electronically signed by Luis Miguel Freeman MD>Luis Miguel Freeman MD CC: Dr. Felipe Drew DO; Dr. Moon Rayo MD; Dr. Dilia Best MD ~ Signed [facility] Work Phone: 1(495) 250-414501-22-2024 Progress note Author Luis Miguel Pete [facility] August 15, 2023 3:05pm Note Date/Time August 15, 2023 3 :05pm [facility] Medical Records Department [address] [place] [address] Progress Note - Hospitalist 08/15/23 1458 MR#: [id number] Acct: [id number] Name: VANESSA HERNANDEZ Rep #:[id number] : 1945 78 From: Luis Miguel Wesley PCP: Dr. Moon Rayo MD Status:ADM IN Location: [place] [address] Reason for Visit Reason for Visit: Diagnoses Hypokalemia (08/13/23) Cellulitis of right lower limb (08/13/23) Acute cystitis without hematuria (08/13/23) Difficulty in walking, not elsewhere classified (08/13/23) Weakness (08/13/23) Objective Data Objective Data Vital Signs: Vital Signs Temp Pulse Resp BP Pulse Ox O2 Del Method 98.8 F 90 22 H 128/81 H 94 Room Air 08/15/23 14:43 08/15/23 14:48 08/15/23 14:43 08/15/23 14:43 08/15/23 14:43 08/15/23 14:48 Oxygen Delivery Method Room Air Weight: 227 lb 1.218 oz Body Mass Index (BMI) 38.7 Intake & Output: Intake and Output for Last 24 Hours 08/13/23 08/14/23 08/15/23 23:59 23:59 23:59 Intake Total 50 / 50 2623.75 / 2923.75 900 / 900 Output Total 900 / 1200 1350 / 1350 Balance 50 / 50 1723.75 / 1723.75 -450 / -450 Lab / Micro Data 08/15/23 05:25 08/15/23 05:25 Labs: Laboratory Results - last 24 hr 08/13/23 19:49: Diff Path Review Reviewed 08/14/23 05:20: Diff Path Review Reviewed 08/15/23 05:25: WBC 10.8, RBC 4.57, Hgb 10.4 L, Hct 35.4 L, MCV 77.5 L, MCH 22.8L, MCHC 29.4 L, RDW Std Deviation 51.7 H, RDW Coeff of Karon 18.6 H, Plt Count 291, MPV 9.2, Immature Gran % (Auto) 1.000 H, Neut % (Auto) 68.3, Lymph % (Auto)17.6 L, Menard % (Auto) 10.9 H, Eos % (Auto) 1.8, Baso % (Auto) 0.4, Absolute Neuts (auto) 7.4, Absolute Lymphs (auto) 1.90, Nucleated RBC % 0, Sodium 138, Potassium 3.5, Chloride 106, Carbon Dioxide 27.0, Anion Gap 5, BUN 17, Creatinine 0.81, Estim Creat Clear Calc 66.89, Est GFR (MDRD) Af Amer 88, Est GFR (MDRD) Non-Af 73, BUN/Creatinine Ratio 21.0 H, Glucose 106, Calcium 8.9 08/15/23 13:16: Vancomycin Trough 19.4 H Micro: Microbiology 08/13/23 20:41 Urine Catheter - Catheter Urine Culture - Preliminary Gram positive michael Physical Exam Narrative Seen and examined. Patient admitted with right lower extremity swelling and edema. On antibiotic. Venous duplex negative for DVT. D-dimer was high. No fever. Physical exam General: Alert, Oriented x3, Cooperative HEENT: Atraumatic, PERRLA, EOMI, Normocephalic Oral: No Gingival or Mucosal Lesions/ Ulcerations Neck: Supple, No JVD, Negative Carotid Bruits Lungs: Air entry diminished in bilateral lung bases. No crepitation/rhonchi Cardiovascular: Regular rate, Regular Rhythm, Normal S1, Normal S2, No murmurs Abdomen: Bowel Sounds Present, Soft, Non Tender, Non-Distended : No renal angle tenderness. No suprapubic tenderness. Extremities: No edema, Capillary Refill Less than 3 Seconds Skin: No rashes, No breakdown Musculoskeletal: Bilateral TKR. Right lower leg mildly swollen, warm to touch and tender. Neurological: Cranial nerves II-XII grossly intact, DTR 2+/4. No acute focal neurological deficit. Psych/Mental Status: Normal Affect, Appropriate. Assessment & Plan Assessment/Plan (1) Cellulitis: QUALIFIERS: Site of cellulitis: extremity Site of cellulitis of extremity: lower extremity Laterality: right Qualified Code(s): L03.115 - Cellulitis of right lower limb (2) Acute cystitis without hematuria: (3) Hypokalemia: (4) Generalized weakness: (5) Ambulatory dysfunction: PLAN: Plan #Acute cellulitis of the right foot with leukocytosis of 15.2 present on admission - Admit to general medical floor on contact precautions. Stop IV clindamycin began in the ER in favor of IV vancomycin along with probiotic, vitamin D3, vitamin C and zinc. Give Tylenol as needed pain or fever. Finally,d dimer is pending at this time with patient empirically treated with full-dose Lovenox Tib-fib x-ray with no acute process and foot x-ray with moderate degenerative changes and midfoot and dorsal soft tissue swelling, D-dimer 1.47, given 1 full dose of Lovenox pending venous duplex on 08/15 and given symptoms and elevated D-dimer will continue empiric Lovenox pending DVT evaluation, also on Vanco and Cipro 08/15: Venous duplex negative for DVT. Lovenox therapeutic dose changed to prophylactic dose. # Mild hematuria 08/15: Urine culture shows gram-positive michael 25,000 -50,000 colonies possible commensal/colonization. UTI ruled out. # Mild chronic iron deficiency anemia 08/15 hemoglobin 10.4. No active signs of bleeding. #Hypokalemia of 3 mmol/L present on admission - Give supplemental KCl and then recheck BMP in the AM to ensure correction. 08/15: Potassium replaced. #Generalized weakness with ambulatory dysfunction arising from #1 - #3 in the setting of known frequent falls previously and osteoarthritis; with chronic backpain typically treated with monthly steroid injections from pain management (marie did not receive an injection in June 2023) - PT/OT and Case Management to consult and treat on-rounds in the AM as this patient with likely require some form of subacute rehabilitation with help appreciated in advance. -08/14: Awaiting PT/OT # Essential hypertension - Continue home regimen as previous plus give as neededIV hydralazine for systolic blood pressure greater than 160 mmHg. -08/14: Patient with BP actually on the low side, holding hydrochlorothiazide Norvasc, decreased metoprolol dosing #Hyperlipidemia - Resume statin. #Migraine headaches; on as needed sumatriptan - Stable with no complaints of headache at this time. Continue as needed sumatriptan as previous. #Degenerative disc disease - Stable. #RLS - Continue Requip as previous. #Neuropathy - Stable. #Irritable bowel syndrome - Stable. #Overactive bladder - Stable. #History of pneumonia Noted. #GERD - Continue PPI. #DVT prophylaxis -as mentioned above. Charges/Coding Visit Charges Inpatient E&M: 56687 Subs Hosp L2 08/15/23 3317 <Electronically signed by Luis Miguel Freeman MD> Cosigner Signature (if applicable): CC: ~ Signed [facility] Work Phone: 1(122) 279-784501-22-2024 Consult note Author Zeina Beavers [facility] August 15, 2023 2:13pm Note Date/Time August 15, 2023 2 :13pm [facility] Medical Records Department [address] [place] [address] Pharmacokinetic/Renal -Consult 08/15/23 1413 MR#: [id number] Acct: [id number] Name: VANESSA HERNANDEZ Rep #:[id number] : 1945 78 From: Zeina Beavers PCP: Dr. Moon Rayo MD Status:ADM IN [id number] Antib[facility] Management Pharmacy has been consulted to manage selected antibiotic: Vancomycin Type of Intervention Type of Consult: Follow-up Labs Labs: Sodium 138 mmol/L (136-145) 08/15/23 05:25 Potassium 3.5 mmol/L (3.5-5.1) 08/15/23 05:25 Chloride 106 mmol/L (98-107) 08/15/23 05:25 Carbon Dioxide 27.0 mmol/L (21.0-32.0) 08/15/23 05:25 Anion Gap 5 (5-15) 08/15/23 05:25 BUN 17 mg/dL (7-18) 08/15/23 05:25 Creatinine 0.81 mg/dL (0.55-1.02) 08/15/23 05:25 Est GFR (MDRD) Af Amer 88 mL/min (>60) 08/15/23 05:25 Est GFR (MDRD) Non-Af 73 mL/min (>60) 08/15/23 05:25 BUN/Creatinine Ratio 21.0 RATIO (10-20) H 08/15/23 05:25 Glucose 106 mg/dL (74-106) 08/15/23 05:25 Vancomycin Trough 19.4 ug/mL (5.0-15.0) H 08/15/23 13:16 Microbiology Microbiology: Microbiology 08/13/23 20:41 Urine Catheter - Catheter Urine Culture - Preliminary Gram positive michael Goal Trough Goal Trough: 15-20 mcg/mL Pharmacy Plan for Drug Dosing Pharmacy Plan for Drug Dosing: VANCOMYCIN LEVEL RECEIVED Current Vancomycin Dose: 1000mg IV Q12hr Number of Doses Received: 3 (loading dose + 2 scheduled) Vancomycin Level: 19.4 Hours Since Last Dose: 10.75hr Renal Function: 0.81 Renal Function Trend: stable Lab/Micro: Cx pending, NGTD Vancomycin Plan/Comments: Patient had a trough drawn which resulted in a value of 19.4 (goal 15-20). Patient is within therapeutic range. Will continue currentdose of vancomycin and recheck a trough in 48hrs to re-evaluate dosing at that time. Pending Level: 08/17/23 @1330 Pharmacy Service will continue to monitor and adjust dosing as required. 08/15/23 1413 <Electronically signed by Zeina Beavers > Date _ Zeina Beavers Cosigner Signature (if applicable): Date CC: ~ Signed [facility] Work Phone: 1(430) 834-821201-21-2024 Progress note Author Dilia Best [facility] August 14, 2023 2:59pm Note Date/Time August 14, 2023 7 :22am [facility] Medical Records Department [address] [place] [address] Progress Note - Hospitalist 08/14/23 0721 MR#: [id number] Acct: [id number] Name: VANESSA HERNANDEZ Rep #:[id number] : 1945 78 From: Dilia Best MD PCP: Dr. Moon Rayo MD Status:ADM IN [facility] Reason for Visit Reason for Visit: Diagnoses Hypokalemia (08/13/23) Cellulitis of right lower limb (08/13/23) Acute cystitis without hematuria (08/13/23) Difficulty in walking, not elsewhere classified (08/13/23) Weakness (08/13/23) Subjective Subjective Still having some pain and swelling in leg but is improving, open to placement if it is recommended by therapy Objective Data Objective Data Vital Signs: Vital Signs Temp Pulse Resp BP Pulse Ox O2 Del Method 98.3 F 73 16 99/56 L 97 Room Air 08/14/23 05:58 08/14/23 05:58 08/14/23 05:58 08/14/23 05:58 08/14/23 05:58 08/14/23 05:58 Oxygen Delivery Method Room Air Weight: 103.2 kg Body Mass Index (BMI) 38.8 Intake & Output: Intake and Output for Last 24 Hours 08/12/23 08/13/23 08/14/23 23:59 23:59 23:59 Intake Total 50 / 50 1040 / 1040 Output Total 300 / 300 Balance 50 / 50 740 / 740 Lab / Micro Data 08/14/23 05:20 08/14/23 05:20 Labs: Laboratory Results - last 24 hr 08/13/23 19:49: WBC 15.2 H, RBC 4.91, Hgb 11.2 L, Hct 38.6, MCV 78.6 L, MCH 22.8L, MCHC 29.0 L, RDW Std Deviation 52.9 H, RDW Coeff of Karon 18.5 H, Plt Count 335, MPV 8.7, Immature Gran % (Auto) 0.600, Neut % (Auto) 77.3 H, Lymph % (Auto)9.8 L, Menard % (Auto) 11.6 H, Eos % (Auto) 0.4, Baso % (Auto) 0.3, Absolute Neuts(auto) 11.8 H, Absolute Lymphs (auto) 1.50, Nucleated RBC % 0, Differential Comment SCANNED, Diff Path Review November, Sodium 135 L, Potassium 3.0 L, Chloride 100, Carbon Dioxide 28.0, Anion Gap 7, BUN 13, Creatinine 0.99, Estim Creat Clear Calc 55.85, Est GFR (MDRD) Af Amer 70, Est GFR (MDRD) Non-Af 58 L, BUN/Creatinine Ratio 13.1, Glucose 127 H, Uric Acid 5.8, Calcium 9.7, B-Natriuretic Peptide 90.4 08/13/23 20:41: Urine Color Tram, Urine Clarity Sl. Cloudy, Urine pH 5.0, Ur Specific [place] 1.020, Urine Protein 30 H, Urine Glucose (UA) Normal, Urine Ketones 5 H, Urine Occult Blood 50 H, Urine Nitrite Negative, Urine Bilirubin 3 H, Urine Urobilinogen 1 H, Ur Leukocyte Esterase 100 H, Urine RBC 0-5 SEEN, Urine WBC 5- 10 SEEN, Ur Squamous Epith Cells 0-5 SEEN, Urine Bacteria RARE, Urine Mucus 1+ 08/13/23 21:50: D-Dimer Quant (PE/DVT) 1.47 H* 08/14/23 05:20: WBC 11.8 H, RBC 4.33, Hgb 9.8 L, Hct 34.1 L, MCV 78.8 L, MCH 22.6 L, MCHC 28.7 L, RDW Std Deviation 53.0 H, RDW Coeff of Karon 18.4 H, Plt Count 272, MPV 9.2, Immature Gran % (Auto) 0.600, Neut % (Auto) 65.7, Lymph % (Auto) 19.8, Menard % (Auto) 12.8 H, Eos % (Auto) 0.8, Baso % (Auto) 0.3, AbsoluteNeuts (auto) 7.8 H, Absolute Lymphs (auto) 2.35, Nucleated RBC % 0, DifferentialComment SCANNED, Diff Path Review November, Sodium 137, Potassium 3.1 L, Chloride 104, Carbon Dioxide 28.0, Anion Gap 5, BUN 13, Creatinine 0.83, Estim Creat Clear Calc 65.35, Est GFR (MDRD) Af Amer 85, Est GFR (MDRD) Non-Af 71, BUN/Creatinine Ratio 15.6, Glucose 95, Calcium 8.4 L, Phosphorus 3.2, Magnesium 2.2, Total Bilirubin 0.80, AST 14 L, ALT 15, Alkaline Phosphatase 60, Total Protein 6.6, Albumin 2.8 L, Globulin 3.8, Albumin/Globulin Ratio 0.7 L, TSH 3.30 Radiography Diagnostic Testing: Radiology Impression Tibia/Fibula X-Ray 08/13/23 21:18 IMPRESSION: 1. No evidence fracture, malalignment or focal bony or joint space abnormality. 2. Total knee arthroplasty, no malalignment or hardware failure. Electronically Signed: Tee Oneill MD at 21:56 EST , Tibia/Fibula X-Ray 08/13/23 21:21 IMPRESSION: 1. No evidence fracture, malalignment or focal bony or joint space abnormality. 2. Total knee arthroplasty with normal alignment. No evidence of hardware failure. Electronically Signed: Tee Oneill MD at 21:55 EST , Foot X-Ray 08/13/23 21:22 IMPRESSION: 1. No evidence of fracture or dislocation. 2. Moderate degenerative change involving the midfoot as detailed. No acute destructive bony process. 3. Dorsal soft tissue swelling is present Electronically Signed: Tee Oniell MD at 21:55 EST , Foot X-Ray 08/13/23 21:35 IMPRESSION: 1. No evidence of fractures dislocation or malalignment. 2. Moderate degenerative change involving the midfoot and forefoot as detailed. Electronically Signed: Tee Oneill MD at 21:53 EST Reading Location ID and State: [address] [place] [address] Tel , Service support , Physical Exam Narrative General: Alert, oriented, no apparent distress HEENT: Atraumatic, normocephalic Eyes: Anicteric, normal conjunctiva, extraocular movements grossly intact Neck: Supple Respiratory: Clear to auscultation bilaterally, normal respiratory effort Cardiovascular: Regular rate and rhythm GI: Soft, nontender, nondistended Extremities: Slight edema of right lower extremity compared to left Musculoskeletal: Moving all extremities Neuro: No overt focal neurological deficits Skin: No rashes appreciated Psych: Cooperative Assessment & Plan Assessment/Plan (1) Cellulitis: QUALIFIERS: Laterality: right Site of cellulitis: extremity Siteof cellulitis of extremity: lower extremity Qualified Code(s): L03.115 - Cellulitis of right lower limb (2) Acute cystitis without hematuria: (3) Hypokalemia: (4) Generalized weakness: (5) Ambulatory dysfunction: PLAN: Plan #Acute cellulitis of the right foot with leukocytosis of 15.2 present on admission - Admit to general medical floor on contact precautions. Stop IV clindamycin began in the ER in favor of IV vancomycin along with probiotic, vitamin D3, vitamin C and zinc. Give Tylenol as needed pain or fever. Finally,d dimer is pending at this time with patient empirically treated with full-dose Lovenox along with RLE doppler to evaluate for possible DVT in the AM. -08/14: Tib-fib x-ray with no acute process and foot x-ray with moderate degenerative changes and midfoot and dorsal soft tissue swelling, D-dimer 1.47, given 1 full dose of Lovenox pending right lower extremity Doppler however likely will not be done until 08/15 and given symptoms and elevated D-dimer will continue empiric Lovenox pending DVT evaluation, also on Vanco and Cipro #Acute cystitis; without hematuria complicating #1 - Cover with IV Cipro and await culture and sensitivity data. -08/14: Urine culture pending, on Cipro and vanc #Iron deficiency anemia - Stable with a hemoglobin of 11.2 g/dL present on admission. -08/14: Hemoglobin 9.8 today but all cell lines dropped, no signs or symptoms of bleeding, will continue to monitor, may need to hold empiric anticoagulation if any evidence of bleeding or any further decrease #Hypokalemia of 3 mmol/L present on admission - Give supplemental KCl and then recheck BMP in the AM to ensure correction. -08/14: Will give further replacement, BP also on the low end so we will stop hydrochlorothiazide #Generalized weakness with ambulatory dysfunction arising from #1 - #3 in the setting of known frequent falls previously and osteoarthritis; with chronic backpain typically treated with monthly steroid injections from pain management (marie did not receive an injection in June 2023) - PT/OT and Case Management to consult and treat on-rounds in the AM as this patient with likely require someform of subacute rehabilitation with help appreciated in advance. -08/14: Awaiting PT/OT # Essential hypertension - Continue home regimen as previous plus give as neededIV hydralazine for systolic blood pressure greater than 160 mmHg. -08/14: Patient with BP actually on the low side, holding hydrochlorothiazide Norvasc, decreased metoprolol dosing #Hyperlipidemia - Resume statin. #Migraine headaches; on as needed sumatriptan - Stable with no complaints of headache at this time. Continue as needed sumatriptan as previous. #Degenerative disc disease - Stable. #RLS - Continue Requip as previous. #Neuropathy - Stable. #Irritable bowel syndrome - Stable. #Overactive bladder - Stable. #History of pneumonia Noted. #GERD - Continue PPI. #DVT prophylaxis - Patient on full-dose Lovenox for #1 until DVT can be ruled out on LE doppler. Time spent in the patient's overall evaluation,decision-making process, review of diagnostic data, adjustment of management, discussion with other providers, nursing nursing and ancillary staff involved in patient's care documentation, 38minutes Charges/Coding Visit Charges Inpatient E&M: 93349 Subs Hosp L2 08/14/23 6712 <Electronically signed by Dilia Best MD> Cosigner Signature (if applicable): CC: ~ Signed [facility] Work Phone: 1(932) 292-612101-21-2024 History and physical note Author Felipe Cordoba [facility] August 14, 2023 5:37am Note Date/Time August 13, 2023 9 :28pm [facility] Medical Records Department [address] [place] [address] H&P Exam - Hospitalist 08/13/232125 MR#: [id number] Acct: [id number] Name: VANESSA HERNANDEZ Rep #:[id number] : 1945 78 From: Felipe Fry DO PCP: Dr. Moon Rayo MD Status:ADM IN [facility]: [facility] CARNEGIE, OKLAHOMA [id number] HPI - General General Date of Admission: 08/13/23 Date of Service: 08/13/23 Chief Complaint: RLE Edema, Erythema and Pain with Inability to Walk. HPI Narrative VANESSA HERNANDEZ, is a 78 F with a past medical history of essential hypertension, hyperlipidemia, morbid obesity; BMI of 40.4 this admission, migraine headaches; on as needed sumatriptan, iron deficiency anemia, degenerative disc disease, neuropathy, restless leg syndrome, history of frequent falls, irritable bowel syndrome, overactive bladder, history of pneumonia, GERD and osteoarthritis; with chronic back pain typically treated with monthly steroid injections from pain management (but she did not receive an injection in June 2023) who presents to [facility] ER complaining of right lower extremity edema, erythema and pain with inability to walk. Ms. Hernandez reports her symptomsbegan approximately 2 days prior to admission with a gradual onset of progressively worsening swelling and redness of her right foot. She had previously been seen by her primary care physician with ultrasounds and lab workdone that showed no evidence of DVT or gout because she was having swelling of her LLE. Then earlier this morning when she tried to stand up her feet were tooswollen and painful leaving her unable to bear weight. She lives alone and cannot care for herself in her current condition. She denies associated fever, chills, nausea, vomiting, headache, chest pain or palpitations. In the ER she was diagnosed with right lower extremity cellulitis and her urinalysis was positive for acute cystitis; without hematuria with leukocytosis of 15.2 presenton admission complicated by laboratory evidence of hypokalemia of 3 mmol/L present on admission (along with a normal brain natriuretic peptide of 90.4 pg/mL present on admission making CHF relatively unlikely) compounded by clinical evidence of generalized weakness with ambulatory dysfunction and she was then admitted to the general medical floor for ongoing care for stay that isexpected to be greater than 48 hours. [facility] Medical History (Updated 08/14/23 @ 05:[address] Felipe Drew, DO) Abdominal pain Asthma Chronic back pain Chronic bronchitis Chronic headaches Confusion Dark stools DDD (degenerative disc disease) Depression Essential (primary) hypertension Frequent falls GERD (gastroesophageal reflux disease) H/O emotional problems Hyperlipidemia Hypokalemia IBS (irritable bowel syndrome) Insomnia Iron deficiency anemia Left-sided chest wall pain Localized swelling of chest wall Neuropathy Obesity Osteoarthritis Osteoarthritis of left knee Overactive bladder Pneumonia Vision problems Vitamin D deficiency Home Medications acetaminophen 500 mg tablet 1,000 mg (2 x 500 mg) PO Q6H PRN PRN Mild Pain (1- 10/01) #90 tabs 02/07/19 [Rx Last Taken 08/12/23 16:15 1,000 mg] cholecalciferol (vitamin D3) 50 mcg (2,000 unit) capsule 4,000 unit PO DAILY SUPPLEMENT 09/10/19 [History Last Taken 09/24/20] biotin 2,500 mcg capsule 1 cap PO DAILY supplement 09/24/20 [History Last Taken 09/24/20] multivitamin with minerals 1 tab PO DAILY supplement 09/24/20 [History Last Taken 09/24/20] sumatriptan succinate 25 mg tablet See Rx Instructions PO .COMPLEX #14 tabs 06/14/22 [Rx Last Taken Unknown] sumatriptan succinate 6 mg/0.5 mL subcutaneous pen injector (Imitrex STATdose Pen) 6 mg (0.5 mL) subcut Q1-4H PRN migraine headache #1 mL 06/14/22 [Rx Last Taken Unknown] side rails for bed #1 ea 07/15/22 [Rx Last Taken Unknown] walker (Ultra-Light Rollator misc) #1 ea 08/23/22 [Rx Last Taken Unknown] ropinirole 0.5 mg tablet 0.5 mg PO QHS #90 tabs 11/12/22 [Rx Last Taken Unknown] sertraline 100 mg tablet 200 mg (2 x 100 mg) PO DAILY #180 tabs 11/12/22 [Rx Last Taken Unknown] amlodipine 5 mg tablet 5 mg PO DAILY #90 tabs 02/04/23 [Rx Last Taken 08/13/23 09:00 5 mg] metoprolol succinate 50 mg tablet,extended release 24 hr 50 mg PO BID HTN #90 tabs 02/15/23 [Rx Last Taken 08/13/23 09:00 50 mg] potassium chloride 20 mEq tablet,extended release 20 meq PO DAILY #90 tabs 02/15/23 [Rx Last Taken Unknown] rosuvastatin 10 mg tablet 10 mg PO QHS CHOLESTEROL #90 tabs 02/15/23 [Rx Last Taken Unknown] omeprazole 40 mg capsule,delayed release 40 mg PO DAILY #90 caps 02/21/23 [Rx Last Taken Unknown] hydrocodone-acetaminophen 5-325mg 5mg-325mg 0.25 tab PO QHS 04/13/23 [History Last Taken Unknown] hydrochlorothiazide 25 mg tablet 25 mg PO DAILY #90 tabs 07/29/23 [Rx Last Taken Unknown] gabapentin 100 mg capsule 100 mg PO BID pain 08/13/23 [History Last Taken Unknown] Allergy/AdvReac Type Severity Reaction Status Date / Time adhesive tape Allergy Severe Area Sore Verified 07/28/23 14:17 cefpodoxime [From Vantin] Allergy Unknown Unknown Verified 07/28/23 14:17 codeine Allergy Unknown Unknown Verified 07/28/23 14:17 metronidazole [From Flagyl] Allergy Unknown Unknown Verified 07/28/23 14:17 sulfamethoxazole Allergy Unknown Unknown Verified 07/28/23 14:17 [From Bactrim] trimethoprim [From Bactrim] Allergy Unknown Unknown Verified 07/28/23 14:17 Sulfa (Sulfonamide Allergy Unknown Verified 07/28/23 14:17 Antibiotics) Family History Sister Anesthesia complication Breast cancer Hypertension Cancer Thyroid, rectal, kidney Thyroid disorder Diabetes Mother Arthritis Pancreatic cancer Depression Diabetes Father Colon cancer Hypertension CVA (cerebral vascular accident) Sister Cancer rectal/kidney/medullary Thyroid cancer Surgical History History of back surgery History of History of cholecystectomy History of gastric surgery History of hernia repair History of hysterectomy History of left heart catheterization (10/14/20) History of left knee replacement History of right knee joint replacement 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 History of total right knee replacement Hx of breast reduction, elective Social History household members: none housing: apartment Smoking Status: Former smoker alcohol intake: never substance use type: does not use what type of physical activity do you participate in: none ROS ROS Narrative Review of systems: Constitutional: Patient denies fever or chills. Eyes: Patient denies visual disturbance. ENT: Patient denies runny nose, sore throat, difficulty swallowing or ear pain. CV: Patient denies chest pain or palpitations. : Patient denies hematuria. GI: Patient denies abdominal pain, nausea or vomiting. MSK: Patient admits to pain in her Right leg and foot made worse with weight bearing. Skin: Patient denies abrasions or rash. Neuro: Patient denies headache, paresthesias or focal neurologic weakness. Psych: Patient denies depression or anxiety. Allergic: Patient denies lip swelling, tongue swelling or urticaria. Hematology: Patient denies easy bleeding or easy bruisability. 14 point ROS otherwise negative except for positives noted above in HPI. Vital Signs Vital Signs Vital Signs: 08/13/23 19:17 08/13/23 19:22 08/13/23 20:40 Temperature 97.3 F L Temperature Source Temporal Pulse Rate 82 77 Respiratory Rate 16 Respiratory Effort Normal Respiratory Pattern Normal Blood Pressure 106/59 L 95/54 L Blood Pressure Mean 74 67 Weight Weight: 235 lb 7.259 oz Body Mass Index (BMI) 40.4 Physical Exam Const alert, oriented x3 and no apparent distress Constitutional Narrative: Patient is obese. General Appearance: cooperative HEENT normocephalic, head/scalp atraumatic, hearing grossly normal bilaterally, moist oral mucous membranes and oropharynx normal Eyes PERRL and EOMs intact bilaterally Neck no lymphadenopathy and supple Resp normal respiratory effort, no retractions, no use of accessory muscles and clearto auscultation bilaterally Cardio regular rate and regular rhythm GI normal to inspection, nondistended, normoactive bowel sounds, soft to palpation,non-tender and non-distended Extremity Extremity Narrative: 2+ edema of the Right foot with associated moderate erythema, warmth and TTP. No open wounds or lesions noted. Good pulses and capillary refill. No calf tenderness or edema. Skin Skin Narrative: 2+ edema of the Right foot with associated moderate erythema, warmth and TTP. Neuro oriented x3, CN's II-XII intact bilaterally, moves all extremities and no focal motor deficits Sensorium / Orientation: awake, alert, oriented to person, oriented to place andoriented to time Speech: speech normal Motor Exam: strength 5/5 throughout Psych affect normal Results Medical Records Data Attestation: I reviewed the patient's medical records Lab / Micro Data Attestation: I reviewed the patient's lab results. 08/13/23 19:49 08/13/23 19:49 Labs: Laboratory Results - last 24 hr 08/13/23 19:49: WBC 15.2 H, RBC 4.91, Hgb 11.2 L, Hct 38.6, MCV 78.6 L, MCH 22.8L, MCHC 29.0 L, RDW Std Deviation 52.9 H, RDW Coeff of Karon 18.5 H, Plt Count 335, MPV 8.7, Immature Gran % (Auto) 0.600, Neut % (Auto) 77.3 H, Lymph % (Auto)9.8 L, Menard % (Auto) 11.6 H, Eos % (Auto) 0.4, Baso % (Auto) 0.3, Absolute Neuts(auto) 11.8 H, Absolute Lymphs (auto) 1.50, Nucleated RBC % 0, Differential Comment SCANNED, Diff Path Review November, Sodium 135 L, Potassium 3.0 L, Chloride 100, Carbon Dioxide 28.0, Anion Gap 7, BUN 13, Creatinine 0.99, Estim Creat Clear Calc 55.85, Est GFR (MDRD) Af Amer 70, Est GFR (MDRD) Non-Af 58 L, BUN/Creatinine Ratio 13.1, Glucose 127 H, Uric Acid 5.8, Calcium 9.7, B-Natriuretic Peptide 90.4 08/13/23 20:41: Urine Color Tram, Urine Clarity Sl. Cloudy, Urine pH 5.0, Ur Specific [place] 1.020, Urine Protein 30 H, Urine Glucose (UA) Normal, Urine Ketones 5 H, Urine Occult Blood 50 H, Urine Nitrite Negative, Urine Bilirubin 3 H, Urine Urobilinogen 1 H, Ur Leukocyte Esterase 100 H, Urine RBC 0-5 SEEN, Urine WBC 5- 10 SEEN, Ur Squamous Epith Cells 0-5 SEEN, Urine Bacteria RARE, Urine Mucus 1+ Assessment & Plan Assessment/Plan (1) Cellulitis: QUALIFIERS: Site of cellulitis: extremity Site of cellulitis of extremity: lower extremity Laterality: right Qualified Code(s): L03.115 - Cellulitis of right lower limb (2) Acute cystitis without hematuria: (3) Hypokalemia: (4) Generalized weakness: (5) Ambulatory dysfunction: PLAN: Plan 1. Acute cellulitis of the right foot with leukocytosis of 15.2 present on admission - Admit to general medical floor on contact precautions. Stop IV clindamycin began in the ER in favor of IV vancomycin along with probiotic, vitamin D3, vitamin C and zinc. Give Tylenol as needed pain or fever. Finally,d dimer is pending at this time with patient empirically treated with full-dose Lovenox along with RLE doppler to evaluate for possible DVT in the AM. 2. Acute cystitis; without hematuria complicating #1 - Cover with IV Cipro and await culture and sensitivity data. 3. Hypokalemia of 3 mmol/L present on admission - Give supplemental KCl and then recheck BMP in the AM to ensure correction. 4. Generalized weakness with ambulatory dysfunction arising from #1 - #3 in thesetting of known frequent falls previously and osteoarthritis; with chronic backpain typically treated with monthly steroid injections from pain management (marie did not receive an injection in June 2023) - PT/OT and Case Management to consult and treat on-rounds in the AM as this patient with likely require some form of subacute rehabilitation with help appreciated in advance. 5. Morbid obesity; BMI of 40.4 this admission adding to the pathology of #1- #4- Weight loss will be recommended. Check TSH. 6. Essential hypertension - Continue home regimen as previous plus give as needed IV hydralazine for systolic blood pressure greater than 160 mmHg. 7. Hyperlipidemia - Resume statin. 8. Migraine headaches; on as needed sumatriptan - Stable with no complaints of headache at this time. Continue as needed sumatriptan as previous. 9. Iron deficiency anemia - Stable with a hemoglobin of 11.2 g/dL present on admission. 10. Degenerative disc disease - Stable. 11. RLS - Continue Requip as previous. 12. Neuropathy - Stable. 13. Irritable bowel syndrome - Stable. 14. Overactive bladder - Stable. 15. History of pneumonia Noted. 16. GERD - Continue PPI. 17. DVT prophylaxis - Patient on full-dose Lovenox for #1 until DVT can be ruled out on LE doppler. Total time: Approximately 55 minutes. Charges/Coding Visit Charges Inpatient E&M: 83312 Init Hosp L2 08/14/23 0537 <Electronically signed by Felipe Drew DO> Cosigner Signature (if applicable): CC: Dr. Felipe Drew DO; Dr. Moon Rayo MD~ Signed [facility] Work Phone: 1(577) 605-969801-21-2024 Consult note Author Felipe [facility] August 14, 2023 2:40am Note Date/Time August 14, 2023 2 :07am [facility] Medical Records Department [address] [place] [id number] Pharmacokinetic/Renal -Consult 08/14/23 0206 MR#: [id number] Acct: [id number] Name: VANESSA HERNANDEZ Rep #:[id number] : 1945 78 From: Sterling Chavis PCP: Dr. Moon Rayo MD Status:ADM IN Location: [address] Consult Antibiotic Management Pharmacy has been consulted to manage selected antibiotic: Vancomycin Type of Intervention Type of Consult: New start Suspected Infection Suspected Infection: Skin/Soft tissue Labs Labs: Sodium 135 mmol/L (136-145) L 08/13/23 19:49 Potassium 3.0 mmol/L (3.5-5.1) L 08/13/23 19:49 Chloride 100 mmol/L (98-107) 08/13/23 19:49 Carbon Dioxide 28.0 mmol/L (21.0-32.0) 08/13/23 19:49 Anion Gap 7 (5-15) 08/13/23 19:49 BUN 13 mg/dL (7-18) 08/13/23 19:49 Creatinine 0.99 mg/dL (0.55-1.02) 08/13/23 19:49 Est GFR (MDRD) Af Amer 70 mL/min (>60) 08/13/23 19:49 Est GFR (MDRD) Non-Af 58 mL/min (>60) L 08/13/23 19:49 BUN/Creatinine Ratio 13.1 RATIO (10-20) 08/13/23 19:49 Glucose 127 mg/dL (74-106) H 08/13/23 19:49 Dosing Weight Weight used for dosin.2 kg Estimated Creatinine Clearance Estimated Creatinine Clearance: 56 Goal Trough Goal Trough: 15-20 mcg/mL Pharmacy Plan for Drug Dosing Pharmacy Plan for Drug Dosing: Pharmacy Service will continue to monitor and adjust dosing as required. Follow-Up Labs Follow-Up Labs: Trough: Vancomycin Date/Time Labs Ordered Labs to be done on [date and time ordered]: 08/15/23 @1330 08/14/23 0207 <Electronically signed by Sterling Salcedo ds> Date _ Sterling Chavis 08/14/23 0240 <Electronically signed by Felipe León DO> Cosigner Signature (if applicable): Date Felipe Drew DO CC: ~ Signed [facility] Work Phone: 1(404) 116-142801-21-2024 Discharge summary Author Kelle Foster [facility] August 14, 2023 1:41am Note Date/Time August 13, 2023 7 :40pm [facility] Medical Records Department [address] [place] [address] Emergency Department Summary 08/13/23 MR#: [id number] Acct: [id number] Name: VANESSA HERNANDEZ Rep #:[id number] : 1945 78 From: Kelle Foster MD PCP: Dr. Moon Rayo MD Status:ADM RUBENS Location: [place] [address] HPI History of Present Illness Chief Complaint: Edema Detail of Chief Complaint: Unable to walk Narrative Narrative: Patient presents via EMS secondary to being unable to walk. She states that sheusually gets monthly injections from pain management in her lower back. She didnot go in June but is not currently complaining of back pain. She states has been having intermittent swelling in her left foot for the past month. Her primary care physician has done ultrasounds and lab work. She had no evidence of gout or DVT. She states over the last day or 2 she has not noted swelling inher right foot. This morning she was able to get up and go to her recliner to [facility]. When she tried to get up she states her feet were swollen and too painful. She was not able to bear weight. She does live alone. [facility] Medical History (Updated 08/13/23 @ 21:[address] Kelle Foster MD) Abdominal pain Asthma Chronic back pain Chronic bronchitis Chronic headaches Confusion Dark stools DDD (degenerative disc disease) Depression Essential (primary) hypertension Frequent falls GERD (gastroesophageal reflux disease) H/O emotional problems Hyperlipidemia IBS (irritable bowel syndrome) Insomnia Iron deficiency anemia Left-sided chest wall pain Localized swelling of chest wall Neuropathy Obesity Osteoarthritis Osteoarthritis of left knee Overactive bladder Pneumonia Vision problems Vitamin D deficiency Home Medications acetaminophen 500 mg tablet 1,000 mg (2 x 500 mg) PO Q6H PRN PRN Mild Pain (1- 10/01) #90 tabs 02/07/19 [Rx Last Taken 2 Weeks Ago ~09/10/20] cholecalciferol (vitamin D3) 50 mcg (2,000 unit) capsule 4,000 unit PO DAILY SUPPLEMENT 09/10/19 [History Last Taken 09/24/20] biotin 2,500 mcg capsule 1 cap PO DAILY supplement 09/24/20 [History Last Taken 09/24/20] multivitamin with minerals 1 tab PO DAILY supplement 09/24/20 [History Last Taken 09/24/20] sumatriptan succinate 25 mg tablet See Rx Instructions PO .COMPLEX #14 tabs 06/14/22 [Rx Last Taken Unknown] sumatriptan succinate 6 mg/0.5 mL subcutaneous pen injector (Imitrex STATdose Pen) 6 mg (0.5 mL) subcut Q1-4H PRN migraine headache #1 mL 06/14/22 [Rx Last Taken Unknown] side rails for bed #1 ea 07/15/22 [Rx Last Taken Unknown] walker (Ultra-Light Rollator misc) #1 ea 08/23/22 [Rx Last Taken Unknown] ropinirole 0.5 mg tablet 0.5 mg PO QHS #90 tabs 11/12/22 [Rx Last Taken Unknown] sertraline 100 mg tablet 200 mg (2 x 100 mg) PO DAILY #180 tabs 11/12/22 [Rx Last Taken Unknown] amlodipine 5 mg tablet 5 mg PO DAILY #90 tabs 02/04/23 [Rx Last Taken Unknown] metoprolol succinate 50 mg tablet,extended release 24 hr 50 mg PO BID HTN #90 tabs 02/15/23 [Rx Last Taken Unknown] potassium chloride 20 mEq tablet,extended release 20 meq PO DAILY #90 tabs 02/15/23 [Rx Last Taken Unknown] rosuvastatin 10 mg tablet 10 mg PO QHS CHOLESTEROL #90 tabs 02/15/23 [Rx Last Taken Unknown] omeprazole 40 mg capsule,delayed release 40 mg PO DAILY #90 caps 02/21/23 [Rx Last Taken Unknown] hydrocodone-acetaminophen 5-325mg 5mg-325mg 0.25 tab PO QHS 04/13/23 [History Last Taken Unknown] hydrochlorothiazide 25 mg tablet 25 mg PO DAILY #90 tabs 07/29/23 [Rx Last Taken Unknown] gabapentin 100 mg capsule mg 08/13/23 [History Last Taken Unknown] Allergy/AdvReac Type Severity Reaction Status Date / Time adhesive tape Allergy Severe Area Sore Verified 07/28/23 14:17 cefpodoxime [From Vantin] Allergy Unknown Unknown Verified 07/28/23 14:17 codeine Allergy Unknown Unknown Verified 07/28/23 14:17 metronidazole [From Flagyl] Allergy Unknown Unknown Verified 07/28/23 14:17 sulfamethoxazole Allergy Unknown Unknown Verified 07/28/23 14:17 [From Bactrim] trimethoprim [From Bactrim] Allergy Unknown Unknown Verified 07/28/23 14:17 Sulfa (Sulfonamide Allergy Unknown Verified 07/28/23 14:17 Antibiotics) Family History Sister Anesthesia complication Breast cancer Hypertension Cancer Thyroid, rectal, kidney Thyroid disorder Diabetes Mother Arthritis Pancreatic cancer Depression Diabetes Father Colon cancer Hypertension CVA (cerebral vascular accident) Sister Cancer rectal/kidney/medullary Thyroid cancer Surgical History History of back surgery History of History of cholecystectomy History of gastric surgery History of hernia repair History of hysterectomy History of left heart catheterization (10/14/20) History of left knee replacement History of right knee joint replacement 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 History of total right knee replacement Hx of breast reduction, elective Social History household members: none housing: apartment Smoking Status: Former smoker alcohol intake: never substance use type: does not use what type of physical activity do you participate in: none ROS ROS ED Constitutional Constitutional ED: Denies chills or fever(s) Eyes Eyes: Denies discharge from eye(s) ENT ENT ED: Denies discharge from eye(s), rhinorrhea or sore throat Cardiovascular Cardiovascular: Denies chest pain or palpitations Respiratory/Chest Respiratory/Chest: Denies cough or dyspnea Gastrointestinal Gastrointestinal: Denies abdominal pain, nausea or vomiting Musculoskeletal Musculoskeletal: Reports extremity pain; Denies back pain Integumentary Denies Abrasions or rash Neurologic Neurologic: Denies headache(s) or weakness Psychiatric Psychiatric: Denies anxiety or depression Allergic/Immunologic Allergic/Immunologic ED: Denies lip swelling or urticaria EXAM Physical Exam Const Vital Signs: 08/13/23 19:17 08/13/23 19:22 08/13/23 20:40 Temperature 97.3 F L Temperature Source Temporal Pulse Rate 82 77 Respiratory Rate 16 Respiratory Effort Normal Respiratory Pattern Normal Blood Pressure 106/59 L 95/54 L Blood Pressure Mean 74 67 Positive obese Nutritional Appearance: obese HEENT Reports moist mucous membranes Eyes EOMs intact bilaterally Chest Wall inspection of chest normal and palpation of chest normal Resp normal respiratory effort and clear to auscultation bilaterally Cardio regular rate and regular rhythm GI non-tender Palpation: soft Extremity Extremity Narrative: No appreciable edema in the left foot at this time. No tenderness. Patient does have 2+ edema in the right foot with mild erythema and warmth. No wounds or open lesions noted. Strong distal pulses. No calf tenderness or edema. Neuro oriented x3 and no sensory deficits noted Psych mental status grossly normal MDM MDM MDM Narrative Medical decision making narrative: Patient does live alone and currently states she cannot ambulate. IV line will be established and lab work will be obtained to evaluate for any electrolyte derangement, anemia. History & Record Review Discussion w/independent historian: Patient and Family Lab Data Attestation: I reviewed the patient's lab results. Labs: Laboratory Results - last 24 hr 08/13/23 08/13/23 19:49 20:41 WBC 15.2 H RBC 4.91 Hgb 11.2 L Hct 38.6 MCV 78.6 L MCH 22.8 L MCHC 29.0 L RDW Std Deviation 52.9 H RDW Coeff of Karon 18.5 H Plt Count 335 MPV 8.7 Immature Gran % (Auto) 0.600 Neut % (Auto) 77.3 H Lymph % (Auto) 9.8 L [place] % (Auto) 11.6 H Eos % (Auto) 0.4 Baso % (Auto) 0.3 Absolute Neuts (auto) 11.8 H Absolute Lymphs (auto) 1.50 Nucleated RBC % 0 Differential Comment SCANNED Diff Path Review May foll Sodium 135 L Potassium 3.0 L Chloride 100 Carbon Dioxide 28.0 Anion Gap 7 BUN 13 Creatinine 0.99 Estim Creat Clear Calc 55.85 Est GFR (MDRD) Af Amer 70 Est GFR (MDRD) Non-Af 58 L BUN/Creatinine Ratio 13.1 Glucose 127 H Uric Acid 5.8 Calcium 9.7 B-Natriuretic Peptide 90.4 Urine Color Tram Urine Clarity Sl. Cloudy Urine pH 5.0 Ur Specific [place] 1.020 Urine Protein 30 H Urine Glucose (UA) Normal Urine Ketones 5 H Urine Occult Blood 50 H Urine Nitrite Negative Urine Bilirubin 3 H Urine Urobilinogen 1 H Ur Leukocyte Esterase 100 H Urine RBC 0-5 SEEN Urine WBC 5-10 SEEN Ur Squamous Epith Cells 0-5 SEEN Urine Bacteria RARE Urine Mucus 1+ Treatment and Re-Evaluation :: Patient's white blood cell count is elevated at 15.2 with 77% neutrophils. Hemoglobin low at 11.2, consistent with her baseline. Chemistry studies reveal a sodium of 135 and a potassium of 3.0. This is replaced orally. BNP is normalat 90. Urinalysis reveals rare bacteria with 5-10 white cells and no nitrites. This be sent for culture. On repeat exam patient's legs are rechecked. She continues to have mild erythema on the right that is now extended up onto her weiss. I will go ahead and cover her with a dose of clindamycin for cellulitis. Patient's family now states that the patient was supposed to come in a few days ago for x-rays of herleft leg and foot to rule out a stress fracture. Given she is now having symptoms on both legs these x-rays will be obtained. Given the patient lives alone and cannot walk I will speak with hospitalist regarding admission for antibiotics and physical therapy. Discharge Plan Triage Chief Complaint: Edema ED Provider: Kelle Foster Dx/Rx/DC Orders Clinical Impression: Cellulitis, Unable to ambulate Prescriptions: No Action cholecalciferol (vitamin D3) 50 mcg (2,000 unit) capsule 4,000 unit PO DAILY hydrocodone-acetaminophen 5-325 mg tablet 0.25 tab PO QHS multivitamin with minerals 1 EACH tablet 1 tab PO DAILY biotin 2,500 MCG capsule 1 cap PO DAILY gabapentin 100 mg capsule acetaminophen 500 mg tablet 1,000 mg PO Q6H PRN PRN (Reason: Mild Pain (-10/01)) Qty: 90 0RF sumatriptan succinate 25 mg tablet See Rx Instructions PO .COMPLEX Qty: 14 1RF Rx Instructions: take 1 tab at onset of headache; if no relief may repeat 1 tab after at least2 hrs; max = 4 tabs/24 hr PO sumatriptan succinate [Imitrex STATdose Pen] 6 mg/0.5 mL pen injector 6 mg subcut Q1-4H PRN (Reason: migraine headache) Qty: 1 1RF Rx Instructions: do not exceed 2 doses in a 24 hour period (DME) side rails for bed 0 .Route .MEDSUPPLY Qty: 1 0RF Rx Instructions: As directed (DME) Ultra-Light Rollator Misc See Rx Instructions .Route Qty: 1 0RF Rx Instructions: As directed ropinirole 0.5 mg tablet 0.5 mg PO QHS Qty: 90 3RF Rx Instructions: administer 1-3 hours before bedtime sertraline 100 mg tablet 200 mg PO DAILY Qty: 180 3RF Rx Instructions: 200 mg PO daily; amlodipine 5 mg tablet 5 mg PO DAILY Qty: 90 3RF metoprolol succinate 50 mg tablet extended release 24 hr 50 mg PO BID Qty: 90 3RF potassium chloride 20 mEq tablet extended release 20 meq PO DAILY Qty: 90 3RF rosuvastatin 10 mg tablet 10 mg PO QHS Qty: 90 3RF omeprazole 40 mg capsule,delayed release(DR/EC) 40 mg PO DAILY Qty: 90 3RF hydrochlorothiazide 25 mg tablet 25 mg PO DAILY Qty: 90 3RF Primary Care Provider: Moon Rayo Referrals: Moon Rayo MD [Primary Care Provider] - Disposition Disposition: Acute Care [facility] What to do if you have Problems For any increased pain, shortness of breath, bleeding, nausea or vomiting, chestpain, or any unexpected problems, contact your Primary Care Provider. Call [facility] ([phone]) or report to the closest Emergency Room. Call 911 if necessary. 08/14/23 0141 <Electronically signed by Kelle Foster MD> Cosigner Signature (if applicable): CC: Dr. Moon Rayo MD ~ Signed [facility] Work Phone: [phone] NoteHNO ID: [id number] Author: Latonya Sol Service: ? Author Type: Physician Type: [...] Objective: Patient presents to clinic ambulating in [facility] Vasc: DP and PT pulses are decreased [...] Patient is to RTC in 3-4 months. Latonya Sol [facility]04-23-2021 NoteHNO ID: [id number] Author: Paty Harmon RN Service: ? Author Type: ? Type: Progress Notes Filed: 11/14/2020 2:54 PM Note Text: AMB ROOMING INTAKE FLOWSHEET DATA Risk Screening Do you have concerns about personal safety or safety in the home?: No Patient presents with: Left Foot - Established Patient, Nail Care Right Foot - Established [facility] NotePatient Outreach (COVAMN) VANESSA HERNANDEZ ([id number]) 1945 F Date Time Provider Department 09/16/20 BEENA RODGERS During your visit today, we recorded [...] Fully Assessed Order(s):SARS-COVID VACCINE 1ST DOSE APPT [[id number]] Order #: [id number] FUTURE Prescriptions as of 09/16/2020 Sig: OMEPRAZOLE [...] 09/16/2020 (None) Letter Text Encounter Status:Closed by BEBETO, PRODUSER on 09/19/20[facility] Discharge summary Author Ronak Mejia [facility] April 27, 2023 6:03am Note Date/Time April 27, 2023 6: 04am [facility] Medical Records Department [address] [facility] [place] [address] Emergency Department Summary 04/27/23 MR#: [id number] Acct: [id number] Name: VANESSA HERNANDEZ Nitza Rep #:[id number] : 1945 77 From: Ronak Mejia DO PCP: Dr. Moon Rayo MD Status:REG ER Location: ED HPI History of Present Illness Detail of Chief Complaint: Head injury Informant: patient and EMS Narrative Narrative: Patient is a 77-year-old female with past medical history of asthma hypertensionand hyperlipidemia. She states she was sleeping this evening when she rolled over in bed. She states when she did this she actually fell out of bed and landed on her left side striking her head on a dresser. She states she sustained a laceration secondary to this. She denies any bleeding disorder or blood thinner use. She states however secondary to head trauma there was concern for underlying injury or need for closure of her lacerations and therefore she was brought to the hospital for evaluation. [facility] Medical History Abdominal pain Abdominal pain Asthma Chronic back pain Chronic bronchitis Chronic headaches Confusion Dark stools DDD (degenerative disc disease) Depression Essential (primary) hypertension Frequent falls GERD (gastroesophageal reflux disease) H/O emotional problems Hyperlipidemia IBS (irritable bowel syndrome) Insomnia Iron deficiency anemia Left lower quadrant pain Left-sided chest wall pain Localized swelling of chest wall Neuropathy Obesity Osteoarthritis Osteoarthritis of left knee Overactive bladder Overactive bladder Pneumonia Vision problems Vitamin D deficiency Home Medications acetaminophen 500 mg tablet 1,000 mg (2 x 500 mg) PO Q6H PRN PRN Mild Pain (1- 10/01) #90 tabs 02/07/19 [Rx Last Taken 2 Weeks Ago ~09/10/20] aspirin 81 mg tablet,delayed release 81 mg PO DAILY HEART HEALTH #90 tabs 02/07/19 [Rx Last Taken 10/14/20] cholecalciferol (vitamin D3) 50 mcg (2,000 unit) capsule 4,000 unit PO DAILY SUPPLEMENT 09/10/19 [History Last Taken 09/24/20] biotin 2,500 mcg capsule 1 cap PO DAILY supplement 09/24/20 [History Last Taken 09/24/20] multivitamin with minerals 1 tab PO DAILY supplement 09/24/20 [History Last Taken 09/24/20] sumatriptan succinate 25 mg tablet See Rx Instructions PO .COMPLEX #14 tabs 06/14/22 [Rx Last Taken Unknown] sumatriptan succinate 6 mg/0.5 mL subcutaneous pen injector (Imitrex STATdose Pen) 6 mg (0.5 mL) subcut Q1-4H PRN migraine headache #1 mL 06/14/22 [Rx Last Taken Unknown] side rails for bed #1 ea 07/15/22 [Rx Last Taken Unknown] walker (Ultra-Light Rollator [facility] #1 ea 08/23/22 [Rx Last Taken Unknown] hydrochlorothiazide 25 mg tablet 25 mg PO DAILY #90 tabs 08/30/22 [Rx Last Taken Unknown] ropinirole 0.5 mg tablet 0.5 mg PO QHS #90 tabs 11/12/22 [Rx Last Taken Unknown] sertraline 100 mg tablet 200 mg (2 x 100 mg) PO DAILY #180 tabs 11/12/22 [Rx Last Taken Unknown] amlodipine 5 mg tablet 5 mg PO DAILY #90 tabs 02/04/23 [Rx Last Taken Unknown] metoprolol succinate 50 mg tablet,extended release 24 hr 50 mg PO BID HTN #90 tabs 02/15/23 [Rx Last Taken Unknown] potassium chloride 20 mEq tablet,extended release 20 meq PO DAILY #90 tabs 02/15/23 [Rx Last Taken Unknown] rosuvastatin 10 mg tablet 10 mg PO QHS CHOLESTEROL #90 tabs 02/15/23 [Rx Last Taken Unknown] omeprazole 40 mg capsule,delayed release 40 mg PO DAILY #90 caps 02/21/23 [Rx Last Taken Unknown] gabapentin 100 mg capsule 100 mg PO BID 04/13/23 [History Last Taken Unknown] hydrocodone-acetaminophen 5-325mg 5mg-325mg 0.25 tab PO QHS 04/13/23 [History Last Taken Unknown] Allergy/AdvReac Type Severity Reaction Status Date / Time adhesive tape Allergy Severe Area Sore Verified 04/13/23 11:06 cefpodoxime [From Vantin] Allergy Unknown Unknown Verified 04/13/23 11:06 codeine Allergy Unknown Unknown Verified 04/13/23 11:06 metronidazole [From Flagyl] Allergy Unknown Unknown Verified 04/13/23 11:06 sulfamethoxazole Allergy Unknown Unknown Verified 04/13/23 11:06 [From Bactrim] trimethoprim [From Bactrim] Allergy Unknown Unknown Verified 04/13/23 11:06 Sulfa (Sulfonamide Allergy Unknown Verified 04/13/23 11:06 Antibiotics) Family History Sister Anesthesia complication Breast cancer Hypertension Cancer Thyroid, rectal, kidney Thyroid disorder Diabetes Mother Arthritis Pancreatic cancer Depression Diabetes Father Colon cancer Hypertension CVA (cerebral vascular accident) Sister Cancer rectal/kidney/medullary Thyroid cancer Surgical History History of back surgery History of History of cholecystectomy History of gastric surgery History of hernia repair History of hysterectomy History of left heart catheterization (10/14/20) History of left knee replacement History of right knee joint replacement 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 History of total right knee replacement Hx of breast reduction, elective Social History Smoking Status: Former smoker alcohol intake: never substance use type: does not use what type of physical activity do you participate in: none ROS ROS ED Constitutional Constitutional ED: Denies chills or fever(s) Eyes Eyes: Denies change in vision ENT ENT ED: Denies sore throat Cardiovascular Cardiovascular: Reports other Details: Negative syncope ; Denies chest pain Respiratory/Chest Respiratory/Chest: Denies cough or dyspnea Gastrointestinal Gastrointestinal: Denies abdominal pain, diarrhea, nausea or vomiting Genitourinary Genitourinary ED: Denies dysuria Musculoskeletal Musculoskeletal: Reports other; Denies back pain, myalgias or neck pain Integumentary Reports other Details: Positive laceration ; Denies rash Neurologic Neurologic: Reports headache(s); Denies paresthesias or weakness Hematologic/Lymphatic Hematologic/Lymphatic: Denies easy bleeding or easy bruising EXAM Physical Exam Const Positive well nourished and well developed General Appearance ED: well developed HEENT Reports TM's clear HEENT Narrative: Patient has a linear 1.5 cm dermal layer laceration to the left lateral portion of the frontal bone/forehead. No foreign body and minimal ooze of blood. Patient also has a 1.5 cm dermal layer linear laceration along the lateral left portion of the parietal scalp. There is minimal ooze of blood and no foreign body. Patient does have a large 4 x 2.5 cm hematoma along the left lateral portion of the scalp consistent with trauma No signs of depressed or basilar skull fracture Tympanic Membrane ED: Yes TM's clear Eyes PERRL and EOMs intact bilaterally Eyes Narrative: No hyphema noted Neck supple Neck Narrative: No bony deformity or step-off of the cervical spine Patient can move her neck in all directions without pain Chest Wall palpation of chest normal Chest Narrative: No bony deformity or crepitance Resp normal respiratory effort and clear to auscultation bilaterally Cardio regular rate and regular rhythm GI normal to inspection, nondistended, normoactive bowel sounds, non-tender, non-distended and no masses Auscultation: normoactive bowel sounds Palpation: soft Back/Spine Back/Spine Narrative: No bony deformity or step-off of the thoracic or lumbar spine no midline pain onpalpation Extremity normal to inspection Extremity Narrative: Pelvis is stable there is no shortening or external rotation of either lower extremity There is pain on palpation in the left inguinal region however Neuro oriented x3, CN's II-XII intact bilaterally and no sensory deficits noted Sensorium / Orientation: alert Psych mental status grossly normal Skin no rashes or lesions noted Skin Narrative: Hematoma with lacerations to the scalp as documented above MDM MDM MDM Narrative Medical decision making narrative: Patient presented to the ER awake and alert with stable vitals. She reported a mechanical cause of her injury and therefore there is no need for cardiac or syncope work-up. As differential diagnosis includes skull fracture versus subdural or epidural hematoma versus scalp laceration with hematoma a CT scan was obtained. Patient did have pain on palpation in the left inguinal region andtherefore pelvis x-ray was obtained as differential diagnosis includes contusionversus pubic rami fracture. Imaging studies revealed no acute signs of trauma. Therefore the patient had the wounds cleaned and closed as documented below and is otherwise safe for discharge Patient had her wound cleaned with chlorhexidine. Manual pressure was then applied bringing the wound edges together good approximation. Dermabond was then placed over both the left frontal and parietal lacerations. Dermabond heldthe wounds together well and patient tolerated procedure well without any complication. History & Record Review Discussion w/independent historian: Patient Radiography Diagnostic Testing: Clinical Impression(s) from Imaging Studies Brain CT 04/27/23 04:14 IMPRESSION: 1. Left frontal/temporal scalp swelling. 2. No acute intracranial abnormalities. 3. Age-related changes. Electronically Signed: Tay Caruso MD at 4:33 EDT Reading Location ID and State: [facility] / [place] Tel , Service support , Pelvis X-Ray 04/27/23 04:15 IMPRESSION: No acute findings in the pelvis. Electronically Signed: Tay Caruso MD at 4:53 EDT , 1 view pelvis x-ray as interpreted by the emergency medicine physician reveals no acute fracture or dislocation Discharge Plan Dx/Rx/DC Orders Clinical Impression: Closed head injury, Essential (primary) hypertension, Laceration of scalp, Hematoma of scalp Prescriptions: No Action cholecalciferol (vitamin D3) 50 mcg (2,000 unit) capsule 4,000 unit PO DAILY hydrocodone-acetaminophen 5-325 mg tablet 0.25 tab PO QHS gabapentin 100 mg capsule 100 mg PO BID multivitamin with minerals 1 EACH tablet 1 tab PO DAILY biotin 2,500 MCG capsule 1 cap PO DAILY acetaminophen 500 mg tablet 1,000 mg PO Q6H PRN PRN (Reason: Mild Pain (-10/01)) Qty: 90 0RF aspirin 81 mg tablet,delayed release (DR/EC) 81 mg PO DAILY Qty: 90 1RF sumatriptan succinate 25 mg tablet See Rx Instructions PO .COMPLEX Qty: 14 1RF Rx Instructions: take 1 tab at onset of headache; if no relief may repeat 1 tab after at least2 hrs; max = 4 tabs/24 hr PO sumatriptan succinate [Imitrex STATdose Pen] 6 mg/0.5 mL pen injector 6 mg subcut Q1-4H PRN (Reason: migraine headache) Qty: 1 1RF Rx Instructions: do not exceed 2 doses in a 24 hour period (DME) side rails for bed 0 .Route .MEDSUPPLY Qty: 1 0RF Rx Instructions: As directed (DME) Ultra-Light Rollator Misc See Rx Instructions .Route Qty: 1 0RF Rx Instructions: As directed hydrochlorothiazide 25 mg tablet 25 mg PO DAILY Qty: 90 3RF ropinirole 0.5 mg tablet 0.5 mg PO QHS Qty: 90 3RF Rx Instructions: administer 1-3 hours before bedtime sertraline 100 mg tablet 200 mg PO DAILY Qty: 180 3RF Rx Instructions: 200 mg PO daily; amlodipine 5 mg tablet 5 mg PO DAILY Qty: 90 3RF metoprolol succinate 50 mg tablet extended release 24 hr 50 mg PO BID Qty: 90 3RF potassium chloride 20 mEq tablet extended release 20 meq PO DAILY Qty: 90 3RF rosuvastatin 10 mg tablet 10 mg PO QHS Qty: 90 3RF omeprazole 40 mg capsule,delayed release(DR/EC) 40 mg PO DAILY Qty: 90 3RF Primary Care Provider: Moon Rayo Referrals: Moon Rayo MD [Primary Care Provider] - Disposition Disposition: Home, Self Care What to do if you have Problems For any increased pain, shortness of breath, bleeding, nausea or vomiting, chestpain, or any unexpected problems, contact your Primary Care Provider. Call [facility] ([phone]) or report to the closest Emergency Room. Call 911 if necessary. 04/27/23 0603 <Electronically signed by Ronak Mejia DO> Cosigner Signature (if applicable): CC: Dr. Moon Rayo MD ~ Signed [facility] Work Phone: Discharge summary Author Dulce Maria Lance [facility] Note Date/Time January 28, 2025 11:22 am [facility] Physical Therapy [facility] [address] [place] [address] [address] [place] [address] / REHABILITATION SERVICES DISCHARGE SUMMARY MR#: [id number] Acct: [id number] Name: VANESSA HERNANDEZ Rep #: [id number] : 1945 79 From: Dulce Maria An Referring Dr.: Dr. Moon Rayo MD Status: REG RCR Insurance: [employer]ANCE Discharge Summary D/C summary: It has been my pleasure to treat VANESSA HERNANDEZ referred by Dr. Moon Rayo MD,with the diagnosis of DDD R hip, balance issue, freq falls, gait dysfunction fora total of 5 visit(s). Discharge Date: 01/28/25 Please see the following information for a summary of their discharge status. Subjective Subjective: Pt feels that PT is going fairly well. She still fall back with EC. She reports that the machines sometimes bother her shoulder. She does not feelthat she needs additional therapy. She has had no falls. She has a girl that helps her at her house. She is able to bath and dress herself. Pain Hips: Pain Intensity (Out of 10): 0 Shoulders: Pain Intensity (Out of 10): 0 Back: Pain Intensity (Out of 10): 0 Overall Improvement % Improvement: 90 Objective Objective/Function: Gait: walked back to the treatment room from the waiting room and was SOB and took some time to recover LE MMT: R hip flex 12.2 and L 10.2 R knee ext 17.7 and L 16.7 R knee flex 15.9 and L 14.8 Pt is able to walk 2 laps around dept with rollator and needed to stop and rest for 20 seconds twice and was SOB after and took a few min to recover. Standing with EC X 6- 8 seconds Goals Goal 1:: I HEP Goal Progress: Goal Met Goal 2:: Increase LE strength (at the time of the eval: LE MMT: R hip flex 5.7 and L 5.7 R knee ext 7.2 and L 8.4 R knee flex 6.2 and L 5.7). Goal Progress: Goal Met Goal 3:: Be able to side step without UE support but CGA length of // bars to beable to work around her kitchen Goal Progress: Goal Met Goal 4:: Be able to stand with EC X 10 seconds with no LOB Goal Progress: Not Progressing Goal 5:: Be able to walk 2 laps with rollator without SOB Goal Progress: Progressing Plan Plan: DC PT D/C Information Discharge Comments: DC PT to HEP d/c sentence: If there are questions or concerns regarding this patient's physical therapy, please feel free to call me at [phone]. Thank you for the referral of thispatient. Sincerely, JOHN Vernon Balance/Gait/Functional tests Balance/Special Test Scores Lower Extremity Functional Score: 44 Improvement % Improvement: 90 <Electronically signed by Dulce Maria LOPEZ> 01/28/25 0958 CC: Dr. Moon Rayo MD ~ Signed [facility] Work Phone: Evaluation + Plan note No data available for this section [facility] Evaluation note* Diagnosis Onset Date Resolution Status Vertigo acute Essential (primary) hypertension chronic Exertional dyspnea chronic Frequent falls chronic Neuropathy chronic Osteoarthritis chronic [facility] Work Phone: Evaluation noteNo assessment information available [facility] Work Phone: Evaluation note* Diagnosis Onset Date Resolution Status Fall from bed acute Essential (primary) hypertension chronic Frequent falls chronic GERD (gastroesophageal reflux disease) chronic Osteoarthritis chronic [facility] Work Phone: Evaluation note* Diagnosis Onset Date Resolution Status Swelling of left lower extremity acute Depression chronic Essential (primary) hypertension chronic Hyperlipidemia chronic Neuropathy chronic [facility] Work Phone: Evaluation note* Diagnosis Onset Date Resolution Status Swelling of left lower extremity acute Depression chronic Essential (primary) hypertension chronic Hyperlipidemia chronic Neuropathy chronic Gout acute Swelling of left lower extremity acute Essential (primary) hypertension chronic Exertional dyspnea chronic Frequent falls chronic GERD (gastroesophageal reflux disease) chronic Neuropathy chronic Osteoarthritis chronic Overactive bladder chronic [facility] Work Phone: Evaluation note* Diagnosis Onset Date Resolution Status Gout acute Swelling of left lower extremity acute Essential (primary) hypertension chronic Exertional dyspnea chronic Frequent falls chronic GERD (gastroesophageal reflux disease) chronic Neuropathy chronic Osteoarthritis chronic Overactive bladder chronic Cellulitis acute Unable to ambulate acute [facility] Work Phone: Evaluation note* Diagnosis Onset Date Resolution Status Gout acute Swelling of left lower extremity acute Essential (primary) hypertension chronic Exertional dyspnea chronic Frequent falls chronic GERD (gastroesophageal reflux disease) chronic Neuropathy chronic Osteoarthritis chronic Overactive bladder chronic Acute cystitis without hematuria acute Ambulatory dysfunction acute Cellulitis acute Generalized weakness acute Hypokalemia acute Unable to ambulate acute [facility] Work Phone: Evaluation note* Diagnosis Onset Date Resolution Status Gout acute Swelling of left lower extremity acute Essential (primary) hypertension chronic Exertional dyspnea chronic Frequent falls chronic GERD (gastroesophageal reflux disease) chronic Neuropathy chronic Osteoarthritis chronic Overactive bladder chronic Acute cystitis without hematuria acute Ambulatory dysfunction acute Hypokalemia acute Unable to ambulate acute Cellulitis resolved Acute cystitis without hematuria acute Depression chronic Essential (primary) hypertension chronic Frequent falls chronic GERD (gastroesophageal reflux disease) chronic Hyperlipidemia chronic Cellulitis resolved Arthralgia acute 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 acute Facial droop due to acute ce rebrovascular accident (CVA) acute Herman-inattention acute Hypokalemia acute Microcytic anemia acute Essential (primary) hypertension chronic Hyperlipidemia chronic [facility] Work Phone: Evaluation note* Diagnosis Onset Date Resolution Status Gout acute Swelling of left lower extremity acute Exertional dyspnea chronic Frequent falls chronic GERD (gastroesophageal reflux disease) chronic Neuropathy chronic Osteoarthritis chronic Overactive bladder chronic Acute cystitis without hematuria acute Ambulatory dysfunction acute Unable to ambulate acute Cellulitis resolved Hypokalemia resolved Acute cystitis without hematuria acute Depression chronic Frequent falls chronic GERD (gastroesophageal reflux disease) chronic Cellulitis resolved Arthralgia acute 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 acute Facial droop due to acute ce rebrovascular accident (CVA) acute Herman-inattention acute Hypokalemia resolved 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 acute Facial droop due to acute ce rebrovascular accident (CVA) acute Depression chronic Frequent falls chronic GERD (gastroesophageal reflux disease) chronic Osteoarthritis chronic Gout acute Swelling of left wrist acute [facility] Work Phone: History and physical note Author Mona Chery [facility] September 26, 2023 3:35pm Note Date/Time September 26, 2023 3:35 pm [facility] Medical Records Department [address] [place] [id number] H&P Exam - Hospitalist 09/26/23 1519 MR#: [id number] Acct: [id number] Name: VANESSA HERNANDEZ Rep #:[id number] : 1945 78 From: Mona Chery DO PCP: Dr. Moon Rayo MD Status:ADM IN Location: [facility] [id number] HPI - General General Date of Admission: 09/26/23 Date of Service: 09/26/23 Chief Complaint: Slurred speech HPI Narrative VANESSA HERNANDEZ, is a 78 F who presented to the emergency department at [facility] on 09/26/2023 with slurred speech. Patient lives alone and waslast known well at about 8 PM last evening. The patient called her neighbor today and noted that her speech was garbled and contacted EMS. Stroke alert wascalled prior to arrival. Stroke team workup was pursued and she was found to have an NIH of 5 on presentation with 1 for level of consciousness, 1 for right facial palsy, 1 for sensory, 1 for dysarthria and 1 for extinction/attention. She is not a TNK candidate due to timing of last known well. CT of the brain was unremarkable. CTA of the head and neck was read as unremarkable [facility] with the stroke neurologist at [facility] and they felt that there was some mild stenosis intracranially and recommended an IV fluid bolus to keep her blood pressure up some to potentially help with symptoms. Patient is also complaining of bilateral shoulder pain thatstarted about 2 days ago. She states it has feels like somebody is standing on her shoulders and indicates that it has affected her mobility. Vital signs show temperature of 98.2, heart rate 90, blood pressure was 121/68, respiratory was 22 and oxygen saturations are 96 to 98% on room air. CBC showeda mild leukocytosis with a white count of 13.6 and a mild anemia that seems to be microcytic with a hemoglobin 11.3. Platelet count was normal. Coags were normal. Chemistry panel was overall unremarkable other than some mild hypokalemia with a potassium of 3.1. Her troponin was 8. Again, CTA of the head and neck were overtly unremarkable however the neurologist felt there was some stenosis in intracranially in the CTA. Chest x-ray showed no acute cardiopulmonary process. EKG was normal sinus rhythm without any ST-T wave changes concerning for acute ischemia and normal intervals. Stroke neurologist recommended she be loaded with Plavix now at 300 mg and starta full dose aspirin with ongoing aspirin Plavix after admission. [facility] Medical History (Updated 09/26/23 @ 15:[address] Mona Chery, DO) Abdominal pain Anxiety Asthma Chronic back pain Chronic bronchitis Chronic headaches Confusion Dark stools DDD (degenerative disc disease) Depression Essential (primary) hypertension Frequent falls Generalized weakness GERD (gastroesophageal reflux disease) H/O emotional problems Hyperlipidemia Hypokalemia IBS (irritable bowel syndrome) Insomnia Iron deficiency anemia Left-sided chest wall pain Localized swelling of chest wall Migraines Neuropathy Non-smoker Obesity Osteoarthritis Osteoarthritis of left knee Overactive bladder Pneumonia Rheumatoid arthritis Stroke/cerebrovascular accident TIA (transient ischemic attack) Vision problems Vitamin D deficiency Home Medications acetaminophen 500 mg tablet 1,000 mg (2 x 500 mg) PO Q6H PRN PRN Mild Pain (1- 10/01) #90 tabs 02/07/19 [Rx Last Taken 08/12/23 16:15 1,000 mg] cholecalciferol (vitamin D3) 50 mcg (2,000 unit) capsule 4,000 unit PO DAILY SUPPLEMENT 09/10/19 [History Last Taken 09/24/20] biotin 2,500 mcg capsule 1 cap PO DAILY supplement 09/24/20 [History Last Taken 09/24/20] multivitamin with minerals 1 tab PO DAILY supplement 09/24/20 [History Last Taken 09/24/20] sumatriptan succinate 25 mg tablet See Rx Instructions PO .COMPLEX #14 tabs 06/14/22 [Rx Last Taken Unknown] sumatriptan succinate 6 mg/0.5 mL subcutaneous pen injector (Imitrex STATdose Pen) 6 mg (0.5 mL) subcut Q1-4H PRN migraine headache #1 mL 06/14/22 [Rx Last Taken Unknown] side rails for bed #1 ea 07/15/22 [Rx Last Taken Unknown] walker (Ultra-Light Rollator misc) #1 ea 08/23/22 [Rx Last Taken Unknown] ropinirole 0.5 mg tablet 0.5 mg PO QHS restless legs #90 tabs 11/12/22 [Rx Last Taken Unknown] sertraline 100 mg tablet 200 mg (2 x 100 mg) PO DAILY mood #180 tabs 11/12/22 [Rx Last Taken Unknown] potassium chloride 20 mEq tablet,extended release 20 meq PO DAILY supplement #90tabs 02/15/23 [Rx Last Taken Unknown] rosuvastatin 10 mg tablet 10 mg PO QHS CHOLESTEROL #90 tabs 02/15/23 [Rx Last Taken Unknown] omeprazole 40 mg capsule,delayed release 40 mg PO DAILY stomach #90 caps 02/21/23 [Rx Last Taken Unknown] hydrocodone-acetaminophen 5-325mg 5mg-325mg 0.25 tab PO QHS 04/13/23 [History Last Taken Unknown] hydrochlorothiazide 25 mg tablet 25 mg PO DAILY water pill #90 tabs 07/29/23 [Rx Last Taken Unknown] amlodipine 2.5 mg tablet 2.5 mg PO DAILY blood pressure #30 tabs 08/22/23 [Rx Last Taken Unknown] gabapentin 100 mg capsule 100 mg PO DAILY #60 caps 08/30/23 [Rx Last Taken Unknown] metoprolol succinate 50 mg tablet,extended release 24 hr 50 mg PO BID HTN #90 tabs 08/31/23 [Rx Last Taken Unknown] Allergy/AdvReac Type Severity Reaction Status Date / Time adhesive tape Allergy Severe Area Sore Verified 09/26/23 13:53 cefpodoxime [From Vantin] Allergy Unknown Unknown Verified 09/26/23 13:53 codeine Allergy Unknown Unknown Verified 09/26/23 13:53 metronidazole [From Flagyl] Allergy Unknown Unknown Verified 09/26/23 13:53 sulfamethoxazole Allergy Unknown Unknown Verified 09/26/23 13:53 [From Bactrim] trimethoprim [From Bactrim] Allergy Unknown Unknown Verified 09/26/23 13:53 Sulfa (Sulfonamide Allergy Unknown Verified 09/26/23 13:53 Antibiotics) Family History Sister Anesthesia complication Breast cancer Hypertension Cancer Thyroid, rectal, kidney Thyroid disorder Diabetes Mother Arthritis Pancreatic cancer Depression Diabetes Father Colon cancer Hypertension CVA (cerebral vascular accident) Sister Cancer rectal/kidney/medullary Thyroid cancer Surgical History (Updated 09/26/23 @ 15:25 by Nenita Baker) History of appendectomy History of back surgery History of History of cholecystectomy History of gastric surgery History of hernia repair History of hysterectomy History of left heart catheterization (10/14/20) History of left knee replacement History of right knee joint replacement 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 History of total right knee replacement Hx of breast reduction, elective Social History (Updated 09/26/23 @ 15:[address] Mona Chery DO) household members: none housing: apartment current occupational status: retired Smoking Status: Former smoker alcohol intake: never substance use type: does not use what type of physical activity do you participate in: none ROS Constitutional Constitutional: Denies anorexia, change in weight, chills, fatigue, fever(s), malaise, night sweats, weakness or other Eyes Eyes: Denies blurry vision, change in eye color, change in vision, discharge from eye(s), double vision, erythema, eye pain, loss of vision or other ENT HEENT: Denies abnormal hearing, dysphagia, ear pain, epistaxis, headache(s), hearing loss, nasal congestion, nasal discharge, post nasal drip, sinus pressure, sore throat or other Cardiovascular Cardiovascular: Denies chest pain, claudication, dyspnea on exertion, edema, lightheadedness, orthopnea, palpitations, paroxysmal nocturnal dyspnea, rapid heart rate, syncope or other Respiratory/Chest Respiratory/Chest: Denies cough, dyspnea, excessive phlegm production, hemoptysis, productive cough, shortness of breath at rest, shortness of breath with exertion, wheezing or other Gastrointestinal Gastrointestinal: Denies abdominal pain, coffee ground emesis, constipation, diarrhea, dyspepsia, hematemesis, hematochezia, loose stools, melena, nausea, vomiting or other Genitourinary Genitourinary: Denies burning urination, difficulty urinating, dysuria, hematuria, nocturia, urinary frequency, urinary hesitancy, urinary incontinence,urinary urgency or other Musculoskeletal Musculoskeletal: Reports arthralgias and other Details: Patient complains of bilateral shoulder pain that started 2 days ago Neurologic Neurologic: Reports abnormal speech, focal weakness and paresthesias; Denies abnormal gait, confusion, disequilibrium, dizziness, headache(s), numbness, seizure-like activity, seizures, syncope, tingling, tremor(s) or other Psychiatric Psychiatric: Denies anxiety, depression, homicidal ideation, suicidal ideation or other Endocrine Endocrinology: Denies change in body appearance, cold intolerance, excessive sweating, heat intolerance, polydipsia, polyuria or other Allergic/Immunologic Allergic/Immunologic: Denies rhinitis, hives, eczemia, asthma or other Vital Signs Vital Signs Vital Signs: 09/26/23 13:39 09/26/23 13:45 09/26/23 13:45 Temperature 98.2 F Temperature Source Temporal Pulse Rate 90 75 Respiratory Rate 22 H 20 H Blood Pressure 121/68 H 121/68 H Blood Pressure Mean 85 85 Pulse Ox 96 98 98 Oxygen Delivery Method Room Air Room Air 09/26/23 14:15 Temperature Temperature Source Pulse Rate 78 Respiratory Rate 18 Blood Pressure 139/92 H Blood Pressure Mean 107 Pulse Ox 96 Oxygen Delivery Method Room Air Weight Weight: 102.05 kg Body Mass Index (BMI) 38.6 Physical Exam Const alert, oriented x3, no apparent distress and well nourished; Negative for average body habitus or healthy appearing Constitutional Narrative: Obese, older, white female, lying in bed, speech is somewhat garbled and moderately difficult to understand, appears comfortable currently nontoxic General Appearance: cooperative HEENT normocephalic, head/scalp atraumatic and moist oral mucous membranes; Negative for hearing grossly normal bilaterally HEENT Narrative: Dentures in place, Mallampati 3, no thrush, mild hearing deficits Eyes PERRL, EOMs intact bilaterally and conjunctivae normal Eyes Narrative: No scleral icterus Neck no lymphadenopathy and supple Neck Narrative: Trachea midline, neck is short and thick, no thyroid enlargement noted Resp normal respiratory effort, no retractions, no use of accessory muscles and clearto auscultation bilaterally Auscultation: Negative for rales, rhonchi or wheezes Cardio regular rate, regular rhythm, S1 normal heart sound, S2 normal heart sound, no murmurs, no rub, no gallops and no clicks Cardio Narrative: Few ectopic beats GI normal to inspection, nondistended, normoactive bowel sounds, soft to palpation and non-tender Extremity no clubbing, cyanosis or edema Extremity Narrative: Pedal pulses are 2+, decreased shoulder range of motion bilaterally with pain during movement and pain with gentle palpation of both shoulders Skin no rashes or lesions noted, no jaundice, no petechiae and no mottling Skin Narrative: Skin is dry with lesions consistent with seborrheic keratoses, no wounds Neuro oriented x3, No CN's II-XII intact bilaterally and moves all extremities Neuro Narrative: Speech is somewhat garbled and moderately difficult to understand Speech: Negative for speech normal Psych affect normal Psych Narrative: Very pleasant, interacts appropriately Results Lab / Micro Data Attestation: I reviewed the patient's lab results. 09/26/23 13:40 09/26/23 13:40 Labs: Laboratory Results - last 24 hr 09/26/23 13:40: WBC 13.6 H, RBC 4.89, Hgb 11.3 L, Hct 38.1, MCV 77.9 L, MCH 23.1L, MCHC 29.7 L, RDW Std Deviation 51.7 H, RDW Coeff of Karon 18.6 H, Plt Count 333, MPV 9.2, Immature Gran % (Auto) 0.700, Neut % (Auto) 74.3 H, Lymph % (Auto)12.2 L, Menard % (Auto) 10.3 H, Eos % (Auto) 2.1, Baso % (Auto) 0.4, Absolute Neuts (auto) 10.1 H, Absolute Lymphs (auto) 1.66, Nucleated RBC % 0, PT 14.8, INR 1.2, APTT 35.8, Sodium 137, Potassium 3.1 L, Chloride 101, Carbon Dioxide 31.0, Anion Gap 5, BUN 20 H, Creatinine 0.88, Estim Creat Clear Calc 61.25, Est GFR (MDRD) Af Amer 80, Est GFR (MDRD) Non-Af 66, BUN/Creatinine Ratio 22.8 H, Glucose 111 H, Calcium 9.4, Troponin I High Sens 8 Imaging Radiology Impression Brain CT 09/26/23 13:24 IMPRESSION: No acute intracranial process identified. Chronic involutional and white matter changes. Electronically Signed: Yvonne Florian MD at 13:36 EST Reading Location ID and State: [facility] / [place] Tel , Service support , ADDENDUM: 09/26/23 1354 IMPRESSION: No acute intracranial process identified. Chronic involutional and white matter changes. N.B. : The above Results were Read Back by Yvonne Florian MD to Joshua Santiago MD, and understanding confirmed on 09/26/2023 13:47:48 (ET). Electronically Signed: Yvonne Florian MD at 13:36 EST Reading Location ID and State: [facility] / [place] Tel , Service support , Head/Neck CTA 09/26/23 13:24 IMPRESSION: No evidence for significant stenosis or occlusion in the carotid or vertebral arteries of the neck. No evidence for large vessel occlusion in the [place]. Electronically Signed: Yvonne Florian MD at 14:03 EST Reading Location ID and State: [facility] / [place] Tel , Service support , ADDENDUM: 09/26/23 1412 IMPRESSION: No evidence for significant stenosis or occlusion in the carotid or vertebral arteries of the neck. No evidence for large vessel occlusion in the [place]. N.B. : The above Results were Read Back by Yvonne Florian MD to Joshua Santiago MD, and understanding confirmed on 09/26/2023 14:05:28 (ET). Electronically Signed: Yvonne Florian MD at 14:03 EST , Chest X-Ray 09/26/23 14:45 IMPRESSION: No acute cardiopulmonary process identified. Electronically Signed: Yvonne Florian MD at 15:06 EST , Assessment & Plan Assessment/Plan (1) Facial droop due to acute cerebrovascular accident (CVA): (2) 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: (3) Hypokalemia: (4) Microcytic anemia: (5) Arthralgia: PLAN: Plan Acute ischemic stroke -Patient was last known well last evening at 8 PM -Not TNK candidate due to timing of presentation -Stroke neurologist felt that she saw stroke on CT of the brain and some stenotic area in her CTA of the brain for which she recommended 500 cc fluid bolus to maintain elevated blood pressure -Check lipids -Check hemoglobin A1c -Hold home antihypertensives and allow for permissive hypertension -Consider further IV fluid bolus for worsening symptoms -Check MRI of the brain -Check echocardiogram -Patient was loaded with Plavix in the emergency department and will start 75 mgtomorrow -Aspirin 81 mg daily PT/OT consultation -Speech therapy consultation Bilateral shoulder pain -Check sed rate CRP to rule out polymyalgia rheumatica -PT/OT consultation Microcytic anemia -Hemoglobin is only mildly low at 11.3 -Check iron studies -Check stool guaiac Hypokalemia -Will replete IV as there may be some swallowing deficits -Repeat lab in a.m. -Check a magnesium level Dysarthria/possible dysphagia -Speech therapy consultation -N.p.o. for now -Bedside swallow eval History of migraine headache -Hold sumatriptan's for now Hypertension -Hold home amlodipine -Hold home hydrochlorothiazide -Hold metoprolol -Allow for permissive hypertension Hyperlipidemia -Lipid panel is pending -Patient is on rosuvastatin 10 mg at home so we will continue with atorvastatin 80 mg here GERD -Continue home PPI Neuropathy -Continue home gabapentin Restless leg syndrome -Continue home Requip stiffness Depression -Continue home sertraline DVT prophylaxis -Lovenox subcu daily CODE STATUS -DNR CCA with no intubation as discussed prior to admission Charges/Coding Visit Charges Inpatient E&M: 72320 Init Hosp L2 09/26/23 1535 <Electronically signed by Mona Chery DO> Cosigner Signature (if applicable): CC: Dr. Mona Chery DO; Dr. Moon Rayo MD~ Signed [facility] Work Phone: Hospital Discharge instructions No data available for this section [facility] Hospital Discharge instructionsAmbulatory Orders* PT Referral Location: None Selected [facility] Work Phone: Proznarh note No data available for this section [facility] Progrutm note Author Moon Rayo [facility] Note Date/Time April 18, 2025 10:26am [facility] [address] [place] [address] OFFICE VISIT Date of Service: 04/18/25 MR#: [id number] Acct: [id number] Name: VANESSA HERNANDEZ Rep #: [id number] : 1945 Provider: Dr. Meseret Rayo MD Age/Sex: 79/F Location: [facility] Status: Signed Intake Vital Signs 02/21/25 09:44 04/18/25 09:54 Height 5 ft 5 in 5 ft 5 in Weight: 231 lb 4 oz 236 lb BMI 38.5 39.2 BP 135/81 H 138/85 H Blood Pressure Location Rt brachial Rt brachial Position Sitting Sitting Respiration 16 16 Pulse 90 89 Pulse Source Monitor Monitor Temp 98.4 F 98.4 F Temp Source Temporal Temporal Pulse Oximetry (%) 94 93 Oxygen Delivery Method room air room air Intake Visit Reasons: Headaches Chief Complaint: Headaches, neck pain Magnet Placer Required: No Accompanied by: Self Is patient in pain?: Yes (Head and neck ) Pain scale (1-10): 7 Allergies adhesive tape Allergy (Severe, Verified 04/18/25 09:34) Area Sore cefpodoxime (From Vantin) Allergy (Unknown, Verified 04/18/25 09:34) Unknown codeine Allergy (Unknown, Verified 04/18/25 09:34) Unknown metronidazole (From Flagyl) Allergy (Unknown, Verified 04/18/25 09:34) Unknown sulfamethoxazole (From Bactrim) Allergy (Unknown, Verified 04/18/25 09:34) Unknown trimethoprim (From Bactrim) Allergy (Unknown, Verified 04/18/25 09:34) Unknown Sulfa (Sulfonamide Antibiotics) Allergy (Verified 04/18/25 09:34) Unknown Medications ?Medication ?Instructions ?Recorded ?Confirmed ?Type biotin 2,500 mcg capsule 1 cap PO DAILY supplement 04/18/25 History multivitamin with minerals 1 tab PO DAILY supplement 0 09/24/20 04/18/25 History aspirin 81 mg chewable tablet 81 mg PO BREAKFAST #0 ta bs 09/28/23 04/18/25 Rx sumatriptan succinate 25 mg tablet See Rx Instructions PO .COMPLEX 11/21/23 04/18/25 Rx #14 tabs vibegron 75 mg tablet (Gemtesa) 75 mg PO QDAY 05/21/24 04/18/25 History ondansetron 4 mg disintegrating 4 mg PO Q6H PRN nausea and 07/14/24 04/18/25 Rx tablet vomiting #7 tabs ferrous sulfate 137 mg (45 mg 137 mg PO QDAY #90 tabs 12/10/24 04/18/25 Rx iron) tablet,extended release (Slow Fe) sumatriptan succinate 6 mg/0.5 mL 6 mg (0.5 mL) subcut Q1-4H PRN 12/10/24 04/18/25 Rx subcutaneous pen injector (Imitrex migraine headache # 1 mL STATdose Pen) min (Ultra-Light Rollator misc) #1 ea 01/07/25 09/2 12/16 Rx furosemide 20 mg tablet (Lasix) 20 mg PO Q OTHER DAY # 10 tabs 02/18/25 04/18/25 Rx atorvastatin 40 mg tablet 40 mg PO QHS #90 tabs 04/18/25 Rx clopidogrel 75 mg tablet 75 mg PO DAILY #90 tabs 03/2504/18/25 Rx gabapentin 100 mg capsule 100 mg PO Q12H neuropathy #1 80 caps 04/03/25 04/18/25 Rx omeprazole 40 mg capsule,delayed 40 mg PO DAILY stomac h #90 caps 04/03/25 04/18/25 Rx release potassium chloride 20 mEq 20 meq PO QDAY #90 tabs 03/2504/18/25 Rx tablet,extended release(part/cryst) (Klor-Con M) ropinirole 0.5 mg tablet 0.5 mg PO QHS restless legs #90 04/03/25 04/18/25 Rx tabs sertraline 100 mg tablet 200 mg (2 x 100 mg) PO DAILY mood 04/03/25 04/18/25 Rx #180 tabs trazodone 50 mg tablet 25 mg (1/2 x 50 mg) PO DAILY PRN 04/03/25 04/18/25 Rx insomnia #30 tabs sumatriptan succinate 25 mg tablet See Rx Instructions PO .COMPLEX 04/18/25 04/18/25 Rx #14 tabs Have you fallen in the past year?: No PFSH Medical History (Updated 04/22/25 @ 07:[address] Moon aRyo MD) Subconjunctival hemorrhage Conjunctival hemorrhage of left eye Balance problem Urinary incontinence Right hip pain Microcytic anemia Anxiety Rheumatoid arthritis Non-smoker Migraines TIA (transient ischemic attack) Stroke/cerebrovascular accident Generalized weakness Hypokalemia Abdominal pain Asthma DDD (degenerative disc disease) Obesity Frequent falls Essential (primary) hypertension Overactive bladder Chronic back pain Insomnia Hyperlipidemia Depression Osteoarthritis of left knee Iron deficiency anemia Localized swelling of chest wall Confusion Dark stools Left-sided chest wall pain Vitamin D deficiency Vision problems Pneumonia Osteoarthritis Neuropathy IBS (irritable bowel syndrome) Chronic headaches GERD (gastroesophageal reflux disease) H/O emotional problems Chronic bronchitis Surgical History History of appendectomy History of left knee replacement History of left heart catheterization (10/14/20) 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 History of total right knee replacement History of gastric surgery History of hysterectomy History of Hx of breast reduction, elective History of back surgery History of hernia repair History of right knee joint replacement History of cholecystectomy Family History Sister Anesthesia complication Breast cancer Hypertension Cancer Thyroid, rectal, kidney Thyroid disorder Diabetes Mother Arthritis Pancreatic cancer Depression Diabetes Father Colon cancer Hypertension CVA (cerebral vascular accident) Sister Cancer rectal/kidney/medullary Thyroid cancer Social History household members: none housing: apartment current occupational status: retired Smoking Status: Former smoker alcohol intake: never substance use type: does not use what type of physical activity do you participate in: none HPI HPI Chief Complaint: Headaches, neck pain Details: VANESSA HERNANDEZ, is a 79 F who presents to the office today for ongoing headaches. Has had longstanding headaches, however her last visit I did suggest because of her symptoms ongoing, they are all consistent with occipital neuralgia, that shesee pain management. Had a single injection. This seemed to help for a week orso she stated that has not been back she stated. Does not seem like she wants to continue to do that. We discussed other options such as seeing a different pain management physician for perhaps a trial of Botox. I have suggested chiropractic in the past and have done so once again today. She states the injection of sumatriptan is not helpful. The oral seem to actually help her better but she is out. She would like a refill. Review of systems per chart. Physical exam. Vital signs on chart. EOMI. PERRLA. Sclera are clear. No cervical or supraclavicular lymph nodes enlarged or tender. No clear thyromegaly. No thyroid nodules readily palpable. Cranial nerve examination 2 through 12 are grossly unremarkable nonlateralizing. Reproducible tenderness, bilateral posterior occipital areas consistent with occipital neuralgia. No rashes present. ROS Const Constitutional: Positive for headache(s); No body ache, chills, excessive sweating, fatigue, fever(s), frequent falls, snoring, weakness or change in appetite Eyes Eyes: No blurry vision, change in vision, eye pain or Light sensitivity ENT ENT: Positive for headache(s) and neck pain; No abnormal hearing, ear or mastoid pain, tinnitus, nasal congestion or sore throat Resp Respiratory: No cough, shortness of breath, snoring or wheezing Cardio Cardiology: No chest pain at rest, chest pain with exertion, excessive sweating,dyspnea on exertion, lightheadedness, orthopnea or palpitations Gastro GI: No abdominal pain, change in bowel habits, constipation, cramping, diarrhea,nausea/dyspepsia or vomiting Genitourinary-Female: No burning urination, painful urination, urinary incontinence or urinary frequency Musc Musculoskeletal: Positive for limited range of motion and neck pain; No abnormal gait, joint pain, back pain, muscle weakness or numbness Skin Skin: No dry skin, redness, lesions, itchy eyes, rash or wounds Neuro Neurology: Positive for headache(s); No abnormal gait, abnormal hearing, weakness, frequent falls, memory loss or numbness Psych Psychiatric: No anxiety, No change in appetite, No depression, No memory loss and No Thoughts of harming yourself/Others Endo Endocrine: No cold intolerance, excessive sweating, fatigue, flushing, heat intolerance, increased thirst/drinking or increased hunger Aller/Imm Allergy/Immunologic: No itchy eyes, seasonal allergy symptoms, hives or wheezing [place]/Lymp Hematologic/Lymphatic: No easy bleeding or easy bruising Coding Level of Care Code Off vis,est,level 3 Diagnoses Bilateral occipital neuralgia M54.81 Neck pain M54.2 Time Spent (min) 30 Assessment and Plan Assessment and Plan (1) Bilateral occipital neuralgia: Status: Acute (2) Neck pain: Orders: Referrals PT Referral G43.909 - Migraine, unspecified, not intractable, without status migrainosus, M54.2 - Cervicalgia, M54.81 - Occipital neuralgia Medications: Refilled sumatriptan succinate take 1 tab at onset of headache; if no relief may repeat 1tab after at least 2 hrs; max = 4 tabs/24 hr PO 14 tabs 1RF Plan Details Additional Comments: Patient presented as above. I have refilled sumatriptan oral. I have suggestedphysical therapy for massage therapy trial, I did place an order for this. Suggest she trial chiropractic, Dr. Mckeon in [place]. 30-minute visit. Clinical Quality Measures Falls Risk Screening/Assistive Devices Have you fallen in the past year?: No 04/22/25 0753 <Electronically signed by Moon oliveros MD> Date _ Moon Rayo MD [facility]'Sign Signature: Date (if applicable) CC: ~ [facility] Work Phone: Reason for referral (narrative)No reason for referral information availableWKettering Health [facility] Work Phone: Summary Purpose Family History No Family History Records Found Relationship Condition Age at Onset Recorded Date/T ruth sister Complication of anesthesia Unknown Malignant neoplasm of breast Unknown Hypertension Unknown Malignant neoplasm Unknown Disorder of thyroid Unknown Diabetes mellitus Unknown mother Arthritis Unknown Malignant neoplasm of pancreas Unknown Depression Unknown father Malignant neoplasm of colon Unknown Cerebrovascular accident (CVA) Unknown sister Malignant neoplasm Unknown Advance Directives No Advanced Directives Records Found Advance Directive Response Recorded Date/ Time Advance Directives Yes October 14 7:16am Living Will No December 14, 2021 2 :06pm Power of Computer Instructor No December 14, 2021 2:06pm Advance Directive Response Recorded Date/ Time Name of Medical Power of Computer Instructor ADRIENNE INETRIANOELISE July 13, 2022 7:06am Advance Directives Yes October 14 021 6:16am Living Will Yes July 13 7:06am Power of Computer Instructor Yes July 13, 2022 7:06am Advance Directive Response Recorded Date/ Time Advance Directives Yes October 14 021 7:16am Living Will Yes July 13 8:06am Power of Computer Instructor Yes July 13, 2022 8:06am Advance Directive Response Recorded Date/ Time Advance Directives Yes October 14 021 6:16am Living Will Yes David 20th, 2 022 7:06am Power of Computer Instructor Yes July 13, 2022 7:06am Advance Directive Response Recorded Date/ Time Name of Medical Power of Computer Instructor Dulce Maria Schwab August 13, 2023 7:21pm Advance Directives Yes October 14, 021 6:16am Living Will Yes August 13 7:21pm Power of Computer Instructor Yes August 13, 2023 7:21pm Advance Directive Response Recorded Date/ Time Name of Medical Power of Computer Instructor Dulce Maria trent August 13, 2023 11:57pm Advance Directives Yes October 14, 021 6:16am Living Will Yes August 13 11:57pm Power of Computer Instructor Yes August 13, 2023 11:57pm Advance Directive Response Recorded Date/ Time Name of Medical Power of Computer Instructor Dulce Maria trent August 13, 2023 11:57pm Advance Directives Yes October 14, 6:16am Living Will No September 26, 2023 3:19pm Power of Computer Instructor No September 25 3:19pm Advance Directive Response Recorded Date/ Time Advance Directives Yes October 23 1:17pm Living Will No October 24, 2023 1:17pm Power of Computer Instructor No October 23 1:17pm Name of Medical Power of Computer Instructor Dulce Maria trent August 14, 2023 12:57am Advance Directive Response Recorded Date/ Time Name of Medical Power of Computer Instructor Dulce Maria trent August 14, 2023 12:57am Name of Medical Power of Computer Instructor DULCE MARIA MILAN--HERNAN JENSEN October 30, 2023 11:10pm Advance Directives Yes October 23 1:17pm Living Will Yes October 30, 2023 11:10pm Power of Computer Instructor Yes October 29 11:10pm Advance Directive Response Recorded Date/ Time Advance Directives Yes August 31, 2024 12:18pm Chief Complaint and Reason for Visit Chief Complaint headache, bowel issu es N/V/D Reason for Visit Vertigo Essential (primary) hypertension Exertional dyspnea Frequent falls Neuropathy Osteoarthritis Chief Complaint Amb Documentation FALL Chief Complaint Amb Documentation FALL [facility] ER FU Reason for Visit Fall from bed Essential (primary) hypertension Frequent falls GERD (gastroesophageal reflux disease) Osteoarthritis Chief Complaint PAIN IN FOOT Other specified soft tissue disorders/add on test Reason for Visit Swelling of left low er extremity Depression Essential (primary) hypertension Hyperlipidemia Neuropathy Chief Complaint PAIN IN FOOT Other specified soft tissue disorders/add on test Gout Reason for Visit Swelling of left low er extremity Depression Essential (primary) hypertension Hyperlipidemia Neuropathy Gout Swelling of left lower extremity Essential (primary) hypertension Exertional dyspnea Frequent falls GERD (gastroesophageal reflux disease) Neuropathy Osteoarthritis Overactive bladder Chief Complaint Gout CELLULITIS, UNABLE TO AMBULATE Reason for Visit Gout Swelling of left lower extremity Essential (primary) hypertension Exertional dyspnea Frequent falls GERD (gastroesophageal reflux disease) Neuropathy Osteoarthritis Overactive bladder Cellulitis Unable to ambulate Chief Complaint Gout RIGHT LOWER EXTREMITY CELLULITI AND ACUTE CYSTITIS RIGHT LOWER EXTREMITY CELLULITI AND ACUTE CYSTITIS RIGHT LOWER EXTREMITY CELLULITI AND ACUTE CYSTITIS RIGHT LOWER EXTREMITY CELLULITI AND ACUTE CYSTITIS Reason for Visit Gout Swelling of left lower extremity Essential (primary) hypertension Exertional dyspnea Frequent falls GERD (gastroesophageal reflux disease) Neuropathy Osteoarthritis Overactive bladder Acute cystitis without hematuria Ambulatory dysfunction Cellulitis Generalized weakness Hypokalemia Unable to ambulate Chief Complaint Gout RIGHT LOWER EXTREMITY CELLULITI AND ACUTE CYSTITIS RIGHT LOWER EXTREMITY CELLULITI AND ACUTE CYSTITIS RIGHT LOWER EXTREMITY CELLULITI AND ACUTE CYSTITIS RIGHT LOWER EXTREMITY CELLULITI AND ACUTE CYSTITIS [facility] Discharge FU CVA Reason for Visit Gout Swelling of left lower extremity Essential (primary) hypertension Exertional dyspnea Frequent falls GERD (gastroesophageal reflux disease) Neuropathy Osteoarthritis Overactive bladder Acute cystitis without hematuria Ambulatory dysfunction Hypokalemia Unable to ambulate Cellulitis Acute cystitis without hematuria Depression Essential (primary) hypertension Frequent falls GERD (gastroesophageal reflux disease) Hyperlipidemia Cellulitis Arthralgia 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 Facial droop due to acute cerebrovascular accident (CVA) Herman-inattention Hypokalemia Microcytic anemia Essential (primary) hypertension Hyperlipidemia Chief Complaint Gout RIGHT LOWER EXTREMITY CELLULITI AND ACUTE CYSTITIS RIGHT LOWER EXTREMITY CELLULITI AND ACUTE CYSTITIS RIGHT LOWER EXTREMITY CELLULITI AND ACUTE CYSTITIS RIGHT LOWER EXTREMITY CELLULITI AND ACUTE CYSTITIS [facility] Discharge FU CVA Cerebrovascular accident Cerebrovascular accident Cerebrovascular accident Reason for Visit Gout Swelling of left lower extremity Essential (primary) hypertension Exertional dyspnea Frequent falls GERD (gastroesophageal reflux disease) Neuropathy Osteoarthritis Overactive bladder Acute cystitis without hematuria Ambulatory dysfunction Hypokalemia Unable to ambulate Cellulitis Acute cystitis without hematuria Depression Essential (primary) hypertension Frequent falls GERD (gastroesophageal reflux disease) Hyperlipidemia Cellulitis Arthralgia 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 Facial droop due to acute cerebrovascular accident (CVA) Herman-inattention Hypokalemia Microcytic anemia Essential (primary) hypertension Hyperlipidemia Chief Complaint Gout RIGHT LOWER EXTREMITY CELLULITI AND ACUTE CYSTITIS RIGHT LOWER EXTREMITY CELLULITI AND ACUTE CYSTITIS RIGHT LOWER EXTREMITY CELLULITI AND ACUTE CYSTITIS RIGHT LOWER EXTREMITY CELLULITI AND ACUTE CYSTITIS [facility] Discharge FU CVA Cerebrovascular accident Cerebrovascular accident Cerebrovascular accident [facility] Discharge FU Lt Arm Swelling/Pain Reason for Visit Gout Swelling of left lower extremity Exertional dyspnea Frequent falls GERD (gastroesophageal reflux disease) Neuropathy Osteoarthritis Overactive bladder Acute cystitis without hematuria Ambulatory dysfunction Unable to ambulate Cellulitis Hypokalemia Acute cystitis without hematuria Depression Frequent falls GERD (gastroesophageal reflux disease) Cellulitis Arthralgia 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 Facial droop due to acute cerebrovascular accident (CVA) Herman-inattention Hypokalemia 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 Facial droop due to acute cerebrovascular accident (CVA) Depression Frequent falls GERD (gastroesophageal reflux disease) Osteoarthritis Gout Swelling of left wrist Chief Complaint Gout RIGHT LOWER EXTREMITY CELLULITI AND ACUTE CYSTITIS RIGHT LOWER EXTREMITY CELLULITI AND ACUTE CYSTITIS RIGHT LOWER EXTREMITY CELLULITI AND ACUTE CYSTITIS RIGHT LOWER EXTREMITY CELLULITI AND ACUTE CYSTITIS [facility] Discharge FU CVA Cerebrovascular accident Cerebrovascular accident Cerebrovascular accident [facility]WORK LABWORK ACUTE [facility] Discharge FU Lt Arm Swelling/Pain DIZZNESS Reason for Visit Gout Swelling of left lower extremity Exertional dyspnea Frequent falls GERD (gastroesophageal reflux disease) Neuropathy Osteoarthritis Overactive bladder Acute cystitis without hematuria Ambulatory dysfunction Unable to ambulate Cellulitis Hypokalemia Acute cystitis without hematuria Depression Frequent falls GERD (gastroesophageal reflux disease) Cellulitis Arthralgia 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 RX HERE January 28, 2025 9:00am Chief Complaint Admit Date R HIP, FALLS, BALANCE. RX HERE January 28, 2025 9:00am Possible Cellulitus February 18, 2025 1:25 pm Chief Complaint Admit Date R HIP, FALLS, BALANCE. RX HERE January 28, 2025 9:00am Possible Cellulitus February 18, 2025 1:25 pm Leg FU February 21, 2025 9:26 am Reason for Visit Admit Date Bilateral lower extremity edema January 1:25pm Subconjunctival hemorrhage February 18 1:25pm Cellulitis February 18, 2025 1:25 pm Chief Complaint Admit Date R HIP, FALLS, BALANCE. RX HERE January 28, 2025 9:00am Possible Cellulitus February 18, 2025 1:25 pm Leg FU February 21, 2025 9:26 am Headaches April 18, 2025 9:21am Reason for Visit Admit Date Bilateral lower extremity edema January 1:25pm Subconjunctival hemorrhage February 18 1:25pm Cellulitis February 18, 2025 1:25 pm Bilateral lower extremity edema January 9:26am Cellulitis February 21, 2025 9:26 am Bilateral occipital neuralgia April 18, 2025 9:21am Neck pain April 18, 2025 9:21am Additional Source Comments INFORMATION SOURCE (unrecogn ized section and content) DATE CREATED AUTHOR 08/31/2021 [facility] DATE CREATED AUTHOR AUTHOR'S ORGANIZ ATION 10/29/2023 [facility] ([place]) DATE CREATED AUTHOR AUTHOR'S ORGANIZ ATION 05/27/2025 [facility] Goals (unrecognized section and content) Goals may be documented in a n alternate sectionGoals may be documented in an alternate sectionGoals may be documented in an alternate sectionGoals may be documented in an alternate sectionGoals may be documented in an alternate sectionGoals may be documented in an alternate section No data available for this sectionGoals may be documented in an alternate sectionGoals may be documented in an alternate sectionGoals may be documented in an alternate sectionGoals may be documented in an alternate section Care Teams (unrecognized sec tion and content) Team Status: Active Member Role Status Dates Dr. Yashira Hughes MD Family Provider Active Dr. Moon Rayo MD Primary Care Provider Active Team Status: Inactive Member Role Status Dates Dr. Moon Rayo MD Primary Care Provider, [facility] Provider Active Team Status: Active Member Role Status Dates Dr. Moon Rayo MD Primary Care Provider Active Dr. Sterling Orosco MD Attending Provider Active Team Status: Inactive Member Role Status Dates Dr. Moon Rayo MD Primary Care Pro vider, Attending Provider, Referring Provider Active Team Status: Inactive Member Role Status Dates Dr. Moon Rayo MD Primary Care Provider Active Team Status: Active Member Role Status Dates Dr. Moon Rayo MD Primary Care Provider, Referri ng Provider Active Dr. Sterling Orosco MD Attending Provider Active Team Status: Inactive Member Role Status Dates Dr. Moon Rayo MD Primary Care Provider Active Dr. Ronak Mejia DO Attending Provider Active Team Status: Active Member Role Status Dates Dr. Moon Rayo MD Primary Care Provider Active Dr. Kelle Foster MD Emergency Provider Active Dr. Felipe Drew DO Admit Provider, Attending Pr ovider Active Team Status: Active Member Role Status Dates Dr. Moon Rayo MD Primary Care Provider Active Dr. Kelle Foster MD Emergency Provider Active Dr. Felipe Drew DO Admit Provider, Other Provid er Active Dr. Dilia Best MD Attending Provider, Other Provid er Active Team Status: Active Member Role Status Dates Dr. Moon Rayo MD Primary Care Provider Active Dr. Kelle Foster MD Emergency Provider Active Dr. Felipe Drew DO Admit Provider, Other Provid er Active Dr. Luis Miguel Freeman MD Attending Provider, Other Provi yamilet Active Dr. Dilia Best MD Other Provider Active Team Status: Inactive Member Role Status Dates Dr. Moon Rayo MD Primary Care Provider Active Dr. Kelle Foster MD Emergency Provider Active Dr. Felipe Drew DO Admit Provider, Other Provid er Active Dr. Luis Miguel Freeman MD Attending Provider Active Dr. Dilia Best MD Other Provider Active Team Status: Active Member Role Status Dates Dr. Moon Rayo MD Primary Care Provider Active Dr. Sterling Orosco MD Attending Provider Active Dr. Felipe Drew DO Referring Provider Active Team Status: Active Member Role Status Dates Dr. Moon Rayo MD Primary Care Provider Active Dr. Joshua Santiago MD Emergency Provider Active Dr. Mona Chery DO Admit Provider, Attending Provide r Active Nav Harding MD Other Provider Active Dr. Sonal Vivar MD Other Provider Active Parul Lagos MD Other Provider Active Dr. Beena Wagner DO Other Provider Active Dr. Leeann Killian MD Other Provider Active Dr. Mandeep Hannon MD Other Provider Active Dr. Pamella Carl MD Other Provider Active Dr. Moustapha Tran MD Other Provider Active Dr. Adrienne Miranda MD Other Provider Active Shruti Spencer MD Other Provider Active Dr. Latonya Renee MD Other Provider Active Dr. Love Handy MD Other Provider Active Dr. Addie Guardado MD Other Provider Active Dr. Trisha Burden MD Other Provider Active Dr. Ha Baxter MD Other Provider Active Dr. Sukhdev Ashraf MD Other Provider Active Dr. Kevin Gonzalez MD Other Provider Active Dr. Collette Chery MD Other Provider Active Will Locke MD Other Provider Active Team Status: Active Member Role Status Dates Dr. Moon Rayo MD Primary Care Provider Active Dr. Joshua Santiago MD Emergency Provider Active Dr. Mona Chery DO Admit Provider, Att ending Provider, Other Provider Active Nav Harding MD Other Provider Active Dr. Sonal Vivar MD Other Provider Active Parul Lagos MD Other Provider Active Dr. Beena Wagner DO Other Provider Active Dr. Leeann Killian MD Other Provider Active Dr. Mandeep Hannon MD Other Provider Active Dr. Pamella Carl MD Other Provider Active Dr. Moustapha Tran MD Other Provider Active Dr. Adrienne Miranda MD Other Provider Active Shruti Spencer MD Other Provider Active Dr. Latonya Renee MD Other Provider Active Dr. Love Handy MD Other Provider Active Dr. Addie Guardado MD Other Provider Active Dr. Trisha Burden MD Other Provider Active Dr. Ha Baxter MD Other Provider Active Dr. Sukhdev Ashraf MD Other Provider Active Dr. Kevin Gonzalez MD Other Provider Active Dr. Collette Chery MD Other Provider Active Will Locke MD Other Provider Active Team Status: Active Member Role Status Dates Dr. Moon Rayo MD Primary Care Provider Active Dr. Thais Noriega MD Attending Provider Active Team Status: Active Member Role Status Dates Dr. Moon Rayo MD Primary Care Provider Active Dr. Joshua Santiago MD Emergency Provider Active Dr. Mona Chery DO Admit Provider, Other Provider Ac tive Nav Harding MD Other Provider Active Dr. Sonal Vivar MD Other Provider Active Parul Lagos MD Other Provider Active Dr. Beena Wagner DO Other Provider Active Dr. Leeann Killian MD Other Provider Active Dr. Mandeep Hannon MD Other Provider Active Dr. Pamella Carl MD Other Provider Active Dr. Moustapha Tran MD Other Provider Active Dr. Adrienne Miranda MD Other Provider Active Shruti Spencer MD Other Provider Active Dr. Latonya Renee MD Other Provider Active Dr. Love Handy MD Other Provider Active Dr. Addie Guardado MD Other Provider Active Dr. Trisha Burden MD Other Provider Active Dr. Ha Baxter MD Other Provider Active Dr. Sukhdev Ashraf MD Other Provider Active Dr. Kevin Gonzalez MD Other Provider Active Dr. Collette Chery MD Other Provider Active Will Locke MD Other Provider Active Dr. Hima Zimmer DO Attending Provider, Other Provider Active Team Status: Inactive Member Role Status Dates Dr. Moon Rayo MD Primary Care Provider Active Dr. Joshua Santiago MD Emergency Provider Active Dr. Mona Chery DO Admit Provider, Other Provider Ac tive Dr. Hima Zimmer DO Attending Provider Active Team Status: Active Member Role Status Dates Dr. Moon Rayo MD Primary Care Provider Active Dr. Bhavna QUIROS MD Attending Provider Active Team Status: Active Member Role Status Dates Dr. Moon Rayo MD Primary Care Provider Active Dr. Hima Zimmer DO Attending Provider, Refer ring Provider Active Team Status: Inactive Member Role Status Dates Dr. Moon Rayo MD Primary Care Provider Active Dr. Cam Delgado MD Emergency Provider Active Team Status: Active Member Role/Relationship Status Dates Dr. Moon Rayo MD Primary Care Provider Active Team Status: Inactive Member Role/Relationship Status Dates Dr. Moon Rayo MD Primary Care Provider Active Start: January 28, 2025 End: January 28, 2025 Dr. Moon Rayo MD Attending Provider Active Start: January 28, 2025 End: January 28, 2025 Dr. Moon Rayo MD Referring Provider Active Start: January 28, 2025 End: January 28, 2025 Team Status: Inactive Member Role/Relationship Status Dates Dr. Moon Rayo MD Primary Care Provider Active Start: January 22, 2025 Dr. Jojo Sanchez MD Attending Provider Active Start: January 22, 2025 Team Status: Inactive Member Role/Relationship Status Dates Dr. Moon Rayo MD Primary Care Provider Active Start: January 28, 2025 End: January 28, 2025 Dr. Moon Rayo MD Attending Provider Active Start: January 28, 2025 End: January 28, 2025 Dr. Moon Rayo MD Referring Provider Active Start: January 28, 2025 End: January 28, 2025 Team Status: Inactive Member Role/Relationship Status Dates Dr. Moon Rayo MD Primary Care Provider Active Start: February 18, 2025 End: February 18, 2025 Dr. Moon Rayo MD Attending Provider Active Start: February 18, 2025 End: February 18, 2025 Team Status: Inactive Member Role/Relationship Status Dates Dr. Moon Rayo MD Primary Care Provider Active Start: February 21, 2025 End: February 21, 2025 Dr. Moon Rayo MD Attending Provider Active Start: February 21, 2025 End: February 21, 2025 Team Status: Active Member Role/Relationship Status Dates Dr. Moon Rayo MD Primary care physician Active Team Status: Inactive Member Role/Relationship Status Dates Dr. Moon Rayo MD Primary care physician Active Start: January 22, 2025 Dr. Jojo Sanchez MD Attending physician Active Start: January 22, 2025 Team Status: Inactive Member Role/Relationship Status Dates Dr. Moon Rayo MD Primary care physician Active Start: January 28, 2025 End: January 28, 2025 Dr. Moon Rayo MD Attending physician Active Start: January 28, 2025 End: January 28, 2025 Dr. Moon Rayo MD Referring Provider Active Start: January 28, 2025 End: January 28, 2025 Team Status: Inactive Member Role/Relationship Status Dates Dr. Moon Rayo MD Primary care physician Active Start: February 18, 2025 End: February 18, 2025 Dr. Moon Rayo MD Attending physician Active Start: February 18, 2025 End: February 18, 2025 Team Status: Inactive Member Role/Relationship Status Dates Dr. Moon Rayo MD Primary care physician Active Start: February 21, 2025 End: February 21, 2025 Dr. Moon Rayo MD Attending physician Active Start: February 21, 2025 End: February 21, 2025 Team Status: Inactive Member Role/Relationship Status Dates Dr. Moon Rayo MD Primary care physician Active Start: April 18, 2025 End: April 18, 2025 Dr. Moon Rayo MD Attending physician Active Start: April 18, 2025 End: April 18, 2025 FOR RECORDS PERTAINING TO PATIENTS WHO ARE [...] BE BASED ON THE PRIMARY CLINICAL RECORDS. [employer] provides no warranty or guarantee of the accuracy or completeness of information in this document.
[2025-07-01 18:39] LABS: Reflex Lactate? Y
[2025-07-01] MEDS: 0.9% Normal Saline (1000mL) 1,000 ML 50 ML IV (18:47)
[2025-07-01] MEDS: Potassium Chloride Oral Tablet 20 MEQ PO (18:55)
[2025-07-01] MEDS: levoFLOXacin IV 750 MG/150 ML BAG 100 MG IV (18:59)
[2025-07-01 19:38] LABS: Troponin T High Sens 4 HR 13 ng/L (<=14)
[2025-07-01] MEDS: MELATONIN 10 MG TABLET PO (21:40)
[2025-07-02] VITALS (8 sets, daily range): BP systolic 144–152; BP diastolic 78–91; PULSE 80–119; RESP 16–18; TEMP 36.5–36.9; O2SAT 93–99; BMI 40.6
[2025-07-02 06:35] LABS: Hematocrit 35.8 % (37-47); Hemoglobin 11.2 g/dL (12.0-15.0); Immature Granulocytes Count 0.040 X10^3/uL (0.0-0.0); Mean Corp Hgb Conc 31.3 g/dL (32-36); Mean Corpuscular Volume 84.0 fL (81-99); Mean Platelet Vol. 9.2 fl (6.2-12.0); NRBC Flagged by Analyzer 0 % (0-5); Platelet Count 216 K/mm3 (150-450); RBC Distribution Width CV 16.4 % (11.6-14.6); RBC Distribution Width SD 50.8 fl (35.1-43.9); Red Blood Count 4.26 M/mm3 (4.2-5.4); White Blood Count 6.8 K/mm3 (4.4-11.0)
[2025-07-02 07:19] LABS: Magnesium 2.3 mg/dL (1.5-2.2)
[2025-07-02 08:09] LABS: Anion Gap 8 (5-15); BUN 14 mg/dL (4-19); BUN/Creat Ratio 22.1 RATIO (10-20); Calcium,Total 8.7 mg/dL (7.6-11.0); Carbon Dioxide 24.5 mmol/L (21.0-32.0); Chloride 106 mmol/L (98-108); Estimated Creatinine Clearance 67.10 ml/min (50-250); Glucose 120 mg/dL (70-99); Potassium 4.1 mmol/L (3.3-5.1)
[2025-07-02] MEDS: levoFLOXacin IV 750 MG/150 ML BAG 100 MG IV (09:37)
[2025-07-02] MEDS: Potassium Chloride Oral Tablet 20 MEQ PO (09:37)
--- NOTE | 2025-07-02 10:33 | CASEMGMT ---
Social Work SW spoke with the patient about HH at [place] and patient is agreeable with this. SW will provide the patient a list of HH agencies. SW spoke with the patient regarding home delivered meals. Patient would like a list of this resource. SW spoke with the patient regarding applying for Medicaid. The patient is interested in more information. SW made a referral to Elvi with [facility]. Patient reported advent friends help with transporting. Patient lives at home alone. Plan: SW will provide the patient a list HH agencies and meals delivery agencies. CHINMAY Hinkle
--- NOTE | 2025-07-02 10:54 | CASEMGMT ---
Discharge Planning A list of?HH providers including quality and resource use data and consistent with the patient's preferred geographic region, medical needs, and insurance network was created in [facility] Guide.? This list was provided to the SW. Winsome Lyon Discharge Planning Asst.
[2025-07-02] MEDS: FLU VACCINE HIGH DOSE 25-26(65YR UP) 180 MCG/0.5 ML SYRINGE IM (10:59)
--- NOTE | 2025-07-02 11:30 | CASEMGMT ---
Social Work A list of?HH providers including quality and resource use data and consistent with the patient's preferred geographic region, medical needs, and insurance network was created in [facility] Guide.?This list was provided to the patient. CHINMAY Ramirez
--- NOTE | 2025-07-02 12:06 | CASEMGMT ---
Social Work Elvi with [facility] met with patient and she is over-income for Medicaid. She previously had Medicaid but when her ex-spouse , she started receiving more SS. Nitza. CHINMAY Silva
--- NOTE | 2025-07-02 13:36 | CASEMGMT ---
Social Work SW spoke with the daughter on the phone. The daughter Dulce Maria reported she is aware of her mothers confusion with the UTI. She reported before that her mother would forget the day or time and repeat herself. She reported her mother has not been open to [facility]. SW spoke with the daughter regarding applying for [place] Medicaid. GLENN explained SW would ask for assistance with this from a staff member. GLENN emailed [facility] regarding this. GLENN explained that therapy has not worked with her mother yet so it is unknown if she will be approved for a SNF. Dulce Maria reported there is no family in this area and she does not have room for her mother to live with her. Dulce Maria asked that GLENN would email her the list and GLENN did. CHINMAY Hinkle
--- NOTE | 2025-07-02 14:18 | EKG12_ITS ---
Test Reason : RHYTMN CHANGE Blood Pressure : */* mmHG Vent. Rate : 117 BPM Atrial Rate : 117 BPM P-R Int : 180 ms QRS Dur : 84 ms QT Int : 326 ms P-R-T Axes : 54 42 96 degrees QTcB Int : 454 ms Sinus tachycardia Cannot rule out Inferior infarct , age undetermined T wave abnormality, consider lateral ischemia Abnormal ECG Confirmed by Felipe Thornton ([id number]), assignment editor JODI SANTILLAN ([id number]) on 07/04/2025 2:00:23 PM Referred By: Confirmed By: Felipe Thornton
--- NOTE | 2025-07-02 14:23 | CASEMGMT ---
Social Work SW provided the patient with meal delivery and PP caregivers resources. SW also provided the patient a HH list for her to review. SW spoke with the patient about having someone stay with her and she reported she does not know of anyone that can stay with her. SW spoke with her about [facility]. Patient was open to considering it. Patient would need to apply for [place]. CHINMAY Hinkle
--- NOTE | 2025-07-02 14:55 | CHAPLAIN ---
Type of Pastoral Visit _x__ Initial Visit ___ Follow-up Visit ___ On-call Visit ___ General Patient Visit ___ Spiritual Assessment ___ Family Conference ___ Bereavement ___ Rapid Response ___ Code Blue ___ Other (describe below) Pastoral Care Referral From _x__ Patient ___ Family ___ Nurse ___ Physician ___ Marketing Automation Manager ___ Embedded Linux Engineer ___ Other (describe below) Sacrament/Intervention _x__ Active listening ___ Anointing ___ Lutheran ___ Bereavement ___ Communion _x__ Kellee exploration ___ ___ Life review _x__ Prayer ___ Reconciliation ___ Sacrament of Sick _x__ Supportive presence ___ Wedding ___ Other (describe below) Pastoral Comments patient has some unknown or unresolved health issues and is showing concern and anxiety over what will be and what can be do; pt specifically expresses anxious thoughts about having home health or a move to assisted living or else; pt has no family in this area but does have a strong connection to a local congregational; congregational friends are also older and unable to give much physical support; pt is needed now for a test so the visit concluded with a prayer
--- NOTE | 2025-07-02 15:43 | CASEMGMT ---
Social Work The daughter Dulce Maria called GLENN. Dulce Maria reported she has someone that can come to her mothers home for 2 hours in the morning and 2 hours in the evening., GLENN informed her that her mother is getting therapy and if she needs a SNF that the insurance will still need to approve it. GLENN informed SW has spoken with her mother about [facility] and her mother was open to considering it. CHINMAY Hinkle
--- NOTE | 2025-07-02 15:56 | CASEMGMT ---
Social Work SW called the daughter Dulce Maria and informed her that her mother will not qualify for SNF. SW informed her SW will follow up with the patient tomorrow about submitted in the referral for MARYSE waiver with [facility]. SW informed her SW will make a referral to [facility] which will help the patient with setting up her medication. CHINMAY Hinkle
--- NOTE | 2025-07-02 19:49 | PCM.PN.HOSP ---
Reason for Visit Chief Complaint: Confusion and intermittent SOB Subjective Subjective Patient was seen and examined today, her echocardiogram did not show any significant findings, patient's thyroid studies were normal, patient remains tachycardic at times with heart rates in the 1 teens and 20s Objective Data Objective Data Vital Signs: Vital Signs Temp Pulse Resp BP Pulse Ox O2 Del Method 97.7 F L 119 H 18 150/88 H 97 Room Air 07/02/25 14:50 07/02/25 14:50 07/02/25 14:50 07/02/25 14:50 07/02/25 16:12 07/02/25 15:00 Oxygen Delivery Method Room Air Weight: 107.4 kg Body Mass Index (BMI) 40.6 Intake & Output: Intake and Output for Last 24 Hours 06/30/25 07/01/25 07/02/25 23:59 23:59 23:59 Intake Total 1292.5 / 1292.5 1007.5 / 1007.5 Output Total 300 / 300 Balance 1292.5 / 1292.5 707.5 / 707.5 Lab / Micro Data 07/02/25 06:24 07/02/25 07:37 Labs: Laboratory Results - last 24 hr 07/01/25 19:01: Free T4 1.00 07/02/25 06:24: WBC 6.8, RBC 4.26, Hgb 11.2 L, Hct 35.8 L, MCV 84.0, MCH 26.3 L, MCHC 31.3 L, RDW Std Deviation 50.8 H, RDW Coeff of Karon 16.4 H, Plt Count 216, MPV 9.2, Immature Gran % (Auto) 0.600, Neut % (Auto) 62.6, Lymph % (Auto) 20.8, Preble % (Auto) 12.6 H, Eos % (Auto) 3.1, Baso % (Auto) 0.3, Absolute Neuts (auto) 4.3, Absolute Lymphs (auto) 1.42, Nucleated RBC % 0, Sodium Cancelled, Potassium Cancelled, Chloride Cancelled, Carbon Dioxide Cancelled, Anion Gap Cancelled, BUN Cancelled, Creatinine Cancelled, Est GFR (MDRD) Non-Af Cancelled, BUN/Creatinine Ratio Cancelled, Glucose Cancelled, Calcium Cancelled, Magnesium 2.3 H, TSH 1.840 07/02/25 07:37: Sodium 138, Potassium 4.1, Chloride 106, Carbon Dioxide 24.5, Anion Gap 8, BUN 14, Creatinine 0.65 L, Estim Creat Clear Calc 67.10, Est GFR (MDRD) Non-Af 89, BUN/Creatinine Ratio 22.1 H, Glucose 120 H, Calcium 8.7 Radiography Diagnostic Testing: Radiology Impression Echocardiogram 07/01/25 18:18 Interpretation Summary Normal left ventricular systolic function with EF: 54% by Waddell's biplane Normal left ventricular diastolic function Normal right ventricular systolic function No hemodynamically significant valvular disease Ordering Physician: Dilia Best Performed By: Abhay Pineda RCS Rhythm Strip Rhythm Strip: narrow complex tachycardia Rate: 140 Ectopy: None Physical Exam Const alert, no apparent distress and healthy appearing General Appearance: cooperative, well kempt and well developed Orientation / Consciousness: awake, oriented to person and oriented to place HEENT normocephalic, head/scalp atraumatic and moist oral mucous membranes Eyes PERRL, EOMs intact bilaterally and conjunctivae normal Neck supple, no JVD, thyroid normal and no carotid bruits General: trachea midline Resp normal respiratory effort, no retractions, no use of accessory muscles and clear to auscultation bilaterally Auscultation: Negative for rales, rhonchi or wheezes Cardio regular rate, regular rhythm, S1 normal heart sound, S2 normal heart sound, no murmurs, no rub and no gallops GI normal to inspection, nondistended, normoactive bowel sounds, soft to palpation, non-tender and non-distended Extremity no clubbing, cyanosis or edema Skin no rashes or lesions noted General Skin Exam: no breakdown Neuro CN's II-XII intact bilaterally, moves all extremities, no focal motor deficits and no sensory deficits noted Sensorium / Orientation: awake, alert, oriented to person and oriented to place Speech: speech normal Psych affect normal Assessment & Plan Assessment/Plan (1) Encephalopathy: PLAN: Plan 1. Acute encephalopathy-etiology unclear at this point, patient will continue treatment for a suspected UTI, PT and OT are seeing patient #2 acute cystitis-I changed the patient's medication over to oral Cipro today #3 tachycardia-etiology unclear, patient will continue to be monitored on telemetry #4 hyperlipidemia-patient is on a statin #5 chronic depression-patient is on Zoloft Total clinical time spent by myself addressing the patient's medical issues, reviewing all of her data, and collaborating with patient's care team: 35 minutes Charges/Coding Visit Charges Inpatient E&M: 08790 Subs Hosp L2
[2025-07-02] MEDS: 0.9% Saline Lock 10 ML Syringe IV (20:48)
[2025-07-02] MEDS: MELATONIN 10 MG TABLET PO (20:50)
[2025-07-03 03:00] VITALS: PULSE 108
[2025-07-03 03:21] VITALS: BP 149/109; PULSE 112; RESP 17; TEMP 36.7; O2SAT 95
[2025-07-03 06:00] VITALS: BMI 41.1
[2025-07-03 08:00] VITALS: BP 142/87; PULSE 89; RESP 16; TEMP 36.7; O2SAT 98
[2025-07-03] MEDS: Potassium Chloride Oral Tablet 20 MEQ PO (09:22)
--- NOTE | 2025-07-03 10:02 | CASEMGMT ---
Social Work SW spoke with the patient about a referral to [facility] and that they help with setting up her medication. Patient reported she is okay with this referral. The patient stated she does not want a referral for [facility]. Patient reported she wants to go home. SW informed her that her daughter stated she found someone that can come to her house in the morning and evening to check on her. Patient reported she has not spoke to her daughter. SW asked if SW can call her friend Erika and patient said yes. CHINMAY Hinkle
--- NOTE | 2025-07-03 10:07 | CASEMGMT ---
Social Work SW called the friend Erika. Erika reported she goes to the home once or twice a week. She reported the daughter spoke with her about coming to house more. Erika reported she can go the house in the morning and evening. Erika stated she can fiber picker the patient at [place]. CHINMAY Hinkle
[2025-07-03 11:00] VITALS: PULSE 119
--- NOTE | 2025-07-03 12:35 | NEURO.CONS ---
Assessment and Plan: Neuro Assessment/Plan VANESSA KLINE is a 80 F with a past medical history of prior stroke, being evaluated by Teleneurology for confusion in setting of hypertensive emergency and new UTI. Patient is currently feeling improved with improved BP. Exam with L sided numbness and slight weakness but confounded slightly as her L leg is normally weak with neuropathy from back issues. Imaging is pending - if can get MRI Brain, please obtain - If cannot get MRI Brain, red the following: - continue Plavix - obtain CT head and CTA head/neck - obtain lipid panel, and A1C and TTE - maintain normotension for now I personally attended this patient and spent a total time of 45minutes evaluating this patient including clinical assessment, review of chart, medical history imaging, and determining appropriate treatment and workup. HPI Consult Data Date of Consult: 07/03/25 HPI Narrative HPI Narrative: VANESSA KLINE, is [id number] female history of CVA, GERD, depression, restless leg syndrome, overactive bladder presented to [facility] ED 07/01/2025 with altered mental status and shortness of breath. Reportedly last week developed dysuria and was evaluated at urgent care, was prescribed Macrobid for UTI however shortly after starting it she had increased confusion lethargy. 3 days ago PCP discontinued Macrobid and switch her to Cipro, has only taken 1 dose. Per friend who supplemented history mental status slightly improved but not back to baseline. PCP noted heart rate of 120 today and referred her to the ED for further evaluation. Initially when she came in heart rate reportedly was up to 140s but by the time she was placed on the monitor she was lower, ED physician was concerned she may have had tachyarrhythmia converted and also felt like she needed to be monitored on telemetry for further dysrhythmia. Hospitalist contacted for admission for her metabolic encephalopathy and tachycardia. Patient evaluated bedside. She reports history as above and that her mental status rapidly worsened on Macrobid and slowly proved over the past day since being switched to ciprofloxacin but is still not back to normal, also notices shortness of breath mostly on exertion. No cough, no chest pain, has not noted any palpitations. No fevers noted. Did answer orientation questions correctly but took a second to do so. Denies any swelling lower extremities. Denies any current urinary or bowel complaints Neurologic History Patient is feeling better today. She had stopped at an urgent care and she took an antibiotic and it made her feel disoriented and speech was slurred. She went to see her doctor and she was put on cipro and she felt better. She states was having confusion for 2 days. Her speech was slurred during that time. She thinks that her thinking and her voice are back to normal. Denies weakness or numbness on one side more than another. Had some difficulty with swallowing (food would get stuck in her throat) and no issues with walking (has rollator at home) and no falls at home. Had these symptoms over the weekend (at urgent care on Tuesday). Prior to going to urgent care, did not have confusion or disorientation. No change to her gabapentin or ropinerole (takes for sciatica on the L and RLS). Been on Plavix for a stroke a couple yrs ago (after 2019). Her speech was slurred with that stroke. They thought she had stroke because BP was very high. Exam -? General: Laying comfortably in bed; in no acute distress. -? HENT: Normal oropharynx and mucosa. Normal external appearance of ears and nose. Exophthalmos. -? Neck: Supple, no pain or tenderness -? CV:? No peripheral edema. -? Pulmonary:? Normal respiratory effort. -? Ext: No cyanosis, edema, or deformity -? Skin: No rash. Normal palpation of skin.? -? Musculoskeletal: full range of motion; no joint tenderness. Normal digits and nails by inspection. No clubbing. -? NEURO: -? Mental Status: The patient was alert and oriented to time, place, and person. Normal recent/remote memory, concentration, and general fund of knowledge. -? Language: speech is clear.? Naming, repetition, fluency, and comprehension intact. -? Cranial Nerves: R pupil 3 mm/brisk; L pupil 2mm and brisk EOMI, visual knight full, no facial asymmetry, facial sensation intact, hearing intact, tongue midline, no evidence of atrophy or fibrillations. -? Motor: RUE with pronation -?Detailed strength exam as performed by the nurse/HENRIETTA and witnessed by the physician: [place] Goddard SA 4 4 EE EF WE WF [employer] 5 5 HF 5 5- KE 5 5- KF DF PF -? Tone: is normal and bulk is normal -? Sensation- diminished on the LUE and LLE -? Coordination: No dysmetria on [id number], finger follow finger or [id number]-yyap-[id number]. -? Gait- deferred [facility] Medical History Urinary tract infection Sinus tachycardia Subconjunctival hemorrhage Conjunctival hemorrhage of left eye Balance problem Urinary incontinence Right hip pain Microcytic anemia Anxiety Rheumatoid arthritis Non-smoker Migraines TIA (transient ischemic attack) Stroke/cerebrovascular accident Generalized weakness Hypokalemia Abdominal pain Asthma DDD (degenerative disc disease) Obesity Frequent falls Essential (primary) hypertension Overactive bladder Chronic back pain Insomnia Hyperlipidemia Depression Osteoarthritis of left knee Iron deficiency anemia Localized swelling of chest wall Confusion Dark stools Left-sided chest wall pain Vitamin D deficiency Vision problems Pneumonia Osteoarthritis Neuropathy IBS (irritable bowel syndrome) Chronic headaches GERD (gastroesophageal reflux disease) H/O emotional problems Chronic bronchitis Home Medications ?Medication ?Instructions ?Recorded ?Last Taken ?Type multivitamin with minerals 1 tab PO DAILY supplement 09/24/20 06/30/25 History sumatriptan succinate 6 mg/0.5 mL 6 mg (0.5 mL) subcut Q1-4H PRN 12/10/24 Unknown Rx subcutaneous pen injector (Imitrex migraine headache #1 mL STATdose Pen) walker (Ultra-Light Rollator misc) #1 ea 01/07/25 Unknown Rx atorvastatin 40 mg tablet 40 mg PO QHS #90 tabs 04/03/25 06/30/25 Rx clopidogrel 75 mg tablet 75 mg PO DAILY #90 tabs 04/03/25 06/30/25 Rx gabapentin 100 mg capsule 100 mg PO Q12H neuropathy #180 caps 04/03/25 06/30/25 Rx omeprazole 40 mg capsule,delayed 40 mg PO DAILY stomach #90 caps 04/03/25 06/30/25 Rx release potassium chloride 20 mEq 20 meq PO QDAY #90 tabs 04/03/25 06/30/25 Rx tablet,extended release(part/cryst) (Klor-Con M) ropinirole 0.5 mg tablet 0.5 mg PO QHS restless legs #90 04/03/25 06/30/25 Rx tabs sertraline 100 mg tablet 200 mg (2 x 100 mg) PO DAILY mood 04/03/25 06/30/25 Rx #180 tabs trazodone 50 mg tablet 25 mg (1/2 x 50 mg) PO DAILY PRN 05/20/25 Unknown Rx insomnia #30 tabs Gemtesa 75 mg tablet (vibegron) 75 mg PO QDAY #90 tabs 05/24/25 06/30/25 Rx ciprofloxacin HCl 250 mg tablet 250 mg PO BID 3 days #6 tabs 07/01/25 07/01/25 Rx Allergy/AdvReac Type Severity Reaction Status Date / Time adhesive tape Allergy Severe Area Sore Verified 07/01/25 18:07 cefpodoxime (From Vantin) Allergy Unknown Unknown Verified 07/01/25 18:07 codeine Allergy Unknown Unknown Verified 07/01/25 18:07 metronidazole (From Flagyl) Allergy Unknown Unknown Verified 07/01/25 18:07 sulfamethoxazole (From Allergy Unknown Unknown Verified 07/01/25 18:07 Bactrim) trimethoprim (From Bactrim) Allergy Unknown Unknown Verified 07/01/25 18:07 Sulfa (Sulfonamide Allergy Unknown Verified 07/01/25 18:07 Antibiotics) Family History Sister Anesthesia complication Breast cancer Hypertension Cancer Thyroid, rectal, kidney Thyroid disorder Diabetes Mother Arthritis Pancreatic cancer Depression Diabetes Father Colon cancer Hypertension CVA (cerebral vascular accident) Sister Cancer rectal/kidney/medullary Thyroid cancer Surgical History History of appendectomy History of left knee replacement History of left heart catheterization (10/14/20) 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 History of total right knee replacement History of gastric surgery History of hysterectomy History of Hx of breast reduction, elective History of back surgery History of hernia repair History of right knee joint replacement History of cholecystectomy Social History household members: none housing: apartment current occupational status: retired Smoking Status: Former smoker alcohol intake: never substance use type: does not use what type of physical activity do you participate in: none Vital Signs Vital Signs Vital Signs: 07/02/25 14:50 07/02/25 15:00 07/02/25 16:07 Temperature 97.7 F L Temperature Source Oral Pulse Rate 119 H Pulse Strength Respiratory Rate 18 Blood Pressure 150/88 H Blood Pressure Mean 108 Blood Pressure Source Blood Pressure Position Blood Pressure Location Pulse Ox 99 93 Oxygen Delivery Method Room Air Room Air 07/02/25 16:12 07/02/25 19:00 07/02/25 19:55 Temperature Temperature Source Pulse Rate 115 H Pulse Strength Respiratory Rate Blood Pressure Blood Pressure Mean Blood Pressure Source Blood Pressure Position Blood Pressure Location Pulse Ox 97 Oxygen Delivery Method Room Air 07/02/25 20:56 07/03/25 03:00 07/03/25 03:21 Temperature 98.0 F 98.0 F Temperature Source Oral Oral Pulse Rate 115 H 108 H 112 H Pulse Strength Respiratory Rate 17 17 Blood Pressure 152/91 H 149/109 H Blood Pressure Mean 111 122 Blood Pressure Source Blood Pressure Position Blood Pressure Location Pulse Ox 95 95 Oxygen Delivery Method Room Air Room Air 07/03/25 03:21 07/03/25 08:00 07/03/25 10:00 Temperature 98.1 F Temperature Source Oral Pulse Rate 89 Pulse Strength Normal (2+) Respiratory Rate 16 Blood Pressure 142/87 H Blood Pressure Mean 105 Blood Pressure Source Monitor Blood Pressure Position Semi-Fowlers Blood Pressure Location Right Arm Pulse Ox 98 Oxygen Delivery Method Room Air Room Air Weight Weight: 108.7 kg Body Mass Index (BMI) 41.1 EEG Results Procedure Details EEG Procedure Details: VANESSA KLINE is a 80 year old F with a past medical history of , who presents for evaluation of Electroencephalogram on DATE at TIME Lab / Micro Data 07/02/25 06:24 07/02/25 07:37 Micro: Microbiology 07/01/25 15:05 Urine, Catheterized Urine Culture - Final Culture exhibits no growth. Rhythm Strip Rhythm Strip: narrow complex tachycardia Rate: 140 Ectopy: None Imaging Radiology Impression Echocardiogram 07/01/25 18:18 Interpretation Summary Normal left ventricular systolic function with EF: 54% by Waddell's biplane Normal left ventricular diastolic function Normal right ventricular systolic function No hemodynamically significant valvular disease Ordering Physician: Dilia Best Performed By: Abhay Pineda RCS Active Medications Active Medications Active Medications: Current Medications Generic Name Dose Route Start Last Admin Trade Name Freq PRN Reason Stop Dose Admin Acetaminophen 650 mg 07/01/25 18:18 07/03/25 09:23 Acetaminophen 325 Mg Tablet PO 650 mg Q6H PRN PRN Administration Pain 1-10 Or Fever >100.7 Atorvastatin Calcium 40 mg 07/01/25 22:00 07/02/25 20:47 Atorvastatin Calcium 40 Mg Tablet PO 40 mg QHS KARO Administration Ciprofloxacin HCl 250 mg 07/02/25 22:00 07/03/25 09:23 Ciprofloxacin 250 Mg Tablet PO 250 mg BID KARO Administration Clopidogrel Bisulfate 75 mg 07/02/25 10:00 07/03/25 09:22 Clopidogrel Bisulfate 75 Mg Tablet PO 75 mg DAILY KARO Administration Enoxaparin Sodium 40 mg 07/02/25 10:00 07/03/25 09:22 Enoxaparin 40 Mg/0.4 Ml Syringe SC 40 mg DAILY KARO Administration Gabapentin 100 mg 07/01/25 18:18 07/03/25 06:04 Gabapentin 100 Mg Capsule PO 100 mg Q12H KARO Administration Sodium Chloride 250 mls @ 15 mls/hr 07/01/25 18:06 IV .[id number] PRN Saline Flush Sodium Chloride 250 mls @ 15 mls/hr 07/01/25 18:06 IV .[id number] PRN Additional IVPB Infusion Melatonin 10 mg 07/01/25 18:18 07/02/25 20:50 Melatonin 10 Mg Tablet PO 10 mg QHS PRN PRN Administration INSOMNIA Ondansetron HCl 4 mg 07/01/25 18:18 Ondansetron 4 Mg/2 Ml Vial IV Q6H PRN PRN NAUSEA/VOMITING Pantoprazole Sodium 40 mg 07/01/25 22:00 07/03/25 09:22 Pantoprazole Sodium 40 Mg Tablet PO 40 mg BID KARO Administration Potassium Chloride 20 meq 07/01/25 18:18 07/03/25 09:22 Potassium Chloride Oral Tablet 20 Meq PO 20 meq DAILY KARO Administration Pramipexole Dihydrochloride 0.25 mg 07/01/25 22:00 07/02/25 20:48 Pramipexole Di-Hcl 0.25 Mg Tablet PO 0.25 mg QHS KARO Administration Senna/Docusate Sodium 2 tablet 07/01/25 18:18 Senna/Docusate Sodium 1 Tablet PO BID PRN PRN Constipation Sertraline HCl 200 mg 07/02/25 10:00 07/03/25 09:23 Sertraline 100 Mg Tablet PO 200 mg DAILY KARO Administration Sodium Chloride 10 - 40 ml 07/01/25 18:06 07/02/25 20:48 0.9% Saline Lock 10 Ml Syringe IV 10 ml UD PRN Administration SALINE FLUSH
[2025-07-03 14:00] VITALS: BP 163/79; PULSE 86; RESP 18; TEMP 36.8; O2SAT 97
--- NOTE | 2025-07-03 15:42 | CASEMGMT ---
Social Work SW spoke with the patient. The daughter Dulce Maria left SW a message stating her mother is willing to DC to a NURSING HOME. Patient stated she is willing to go to an NURSING HOME. SW explained to the patient that she will need to go LTC NH while her [facility] HOME waiver application is approved through [facility]. Patient is in agreement with this and wants to DC to [facility]. CHINMAY Hinkle
--- NOTE | 2025-07-03 15:46 | CASEMGMT ---
Social Work SW called the daughter Dulce Maria. SW informed the daughter Dulce Maria that the patient is saying she is willing to go to an [facility]. SW explained to the daughter that the patient will need to go LTC NH while her [facility] waiver application is being approved through [facility]. Dulce Maria stated she thinks her mother will be okay at home with Erika coming to the house and . She does not want his mother going straight to a NH. She thinks it will throw her mom off if she does not go home. Dulce Maria stated she wants SW to apply for [place] Medicaid waiver. CHINMAY Hinkle
[2025-07-03] MEDS: Thiamine Hydrochloride 500 MG in 0.9% Normal Saline (100mL Bag) 100 ML 200 MG IV ×2 (16:19→21:44)
[2025-07-03 16:34] LABS: Vitamin B12 196 pg/mL (180-914)
[2025-07-03 16:43] LABS: FOLATES,SERUM (FOLIC ACID) 12.90 ng/mL (4.60-34.80)
--- NOTE | 2025-07-03 18:40 | PCM.PN.HOSP ---
Reason for Visit Chief Complaint: Confusion and intermittent SOB Subjective Subjective Patient was seen and examined today, I talked with both of her daughters by phone today, it appears that the patient has been having some confusion over the past several months, 1 daughter stated that the patient had called her approximately 3 weeks ago and told her that she did not feel safe at home because her brain was foggy. According to medical records here, patient had a stroke in 2023 but an MRI was not done due to the fact the patient has a spinal stimulator. I have made the decision to have the patient undergo an MRI, I talked with teleneurology who saw the patient and they recommended placing the patient on IV thiamine and obtaining additional labs as well as an MRI. They also recommended that the patient fill out a VENTURA exam which is a screening test for dementia. I talked to the [employer] rep today and he will be in tomorrow or send a arborist representative in tomorrow to turn the patient's spinal stimulator off so she can have her MRI. Objective Data Objective Data Vital Signs: Vital Signs Temp Pulse Resp BP Pulse Ox O2 Del Method 98.2 F 86 18 163/79 H 97 Room Air 07/03/25 14:00 07/03/25 14:00 07/03/25 14:00 07/03/25 14:00 07/03/25 14:00 07/03/25 14:00 Oxygen Delivery Method Room Air Weight: 108.7 kg Body Mass Index (BMI) 41.1 Intake & Output: Intake and Output for Last 24 Hours 07/01/25 07/02/25 07/03/25 23:59 23:59 23:59 Intake Total 1292.5 / 1292.5 1007.5 / 1007.5 1055 / 1055 Output Total 300 / 300 Balance 1292.5 / 1292.5 707.5 / 707.5 1055 / 1055 Lab / Micro Data 07/02/25 06:24 07/02/25 07:37 Labs: Laboratory Results - last 24 hr 07/03/25 15:28: Vitamin B12 196, Serum Folate 12.90 Micro: Microbiology 07/01/25 15:05 Blood Culture (Wb) - Right Wrist Blood Culture - Preliminary No growth in 48 hours. 07/01/25 14:33 Blood Culture (Wb) - Right Forearm Blood Culture - Preliminary No growth in 48 hours. 07/01/25 15:05 Urine, Catheterized Urine Culture - Final Culture exhibits no growth. Rhythm Strip Rhythm Strip: narrow complex tachycardia Rate: 140 Ectopy: None Physical Exam Narrative alert, no apparent distress and healthy appearing General Appearance: cooperative, well kempt and well developed Orientation / Consciousness: awake, oriented to person and oriented to place HEENT normocephalic, head/scalp atraumatic and moist oral mucous membranes Eyes PERRL, EOMs intact bilaterally and conjunctivae normal Neck supple, no JVD, thyroid normal and no carotid bruits General: trachea midline Resp normal respiratory effort, no retractions, no use of accessory muscles and clear to auscultation bilaterally Auscultation: Negative for rales, rhonchi or wheezes Cardio regular rate, regular rhythm, S1 normal heart sound, S2 normal heart sound, no murmurs, no rub and no gallops GI normal to inspection, nondistended, normoactive bowel sounds, soft to palpation, non-tender and non-distended Extremity no clubbing, cyanosis or edema Skin no rashes or lesions noted General Skin Exam: no breakdown Neuro CN's II-XII intact bilaterally, moves all extremities, no focal motor deficits and no sensory deficits noted Sensorium / Orientation: awake, alert, oriented to person and oriented to place Speech: speech normal Psych affect normal Assessment & Plan Assessment/Plan (1) Sinus tachycardia: (2) Encephalopathy: PLAN: Plan 1. Chronic cognitive impairment-I suspect the patient has underlying dementia, again she will have an MRI performed tomorrow, she is filling out a VENTURA exam for neurology to review, I have added additional lab test for the patient including a B12 level, thiamine level, and folate level, patient was placed on IV thiamine per recommendation of neurology. #2 acute cystitis-I am awaiting her urine culture to result, she remains on low-dose oral Cipro #3 tachycardia-etiology unclear, patient will continue to be monitored on telemetry #4 hyperlipidemia-patient is on a statin #5 chronic depression-patient is on Zoloft I talked at length with both daughters today. Total clinical time spent by myself addressing the patient's medical issues, reviewing all of her data, and collaborating with patient's care team: 35 minutes Charges/Coding Visit Charges Inpatient E&M: 99450 Subs Hosp L2
[2025-07-03 20:00] VITALS: BP 146/78; PULSE 113; RESP 18; TEMP 36.7; O2SAT 96
[2025-07-04 03:00] VITALS: BP 153/104; PULSE 106; RESP 18; TEMP 36.5; O2SAT 98
[2025-07-04 05:13] VITALS: BMI 40.8
[2025-07-04] MEDS: Thiamine Hydrochloride 500 MG in 0.9% Normal Saline (100mL Bag) 100 ML 200 MG IV ×2 (05:26→15:49)
[2025-07-04] MEDS: 0.9% Saline Lock 10 ML Syringe IV (05:30)
--- NOTE | 2025-07-04 08:46 | CASEMGMT ---
Social Work SW submitted an application with [facility] for [facility]. CHINMAY Hinkle
--- NOTE | 2025-07-04 09:39 | MRI_ITS ---
PROCEDURE: BRAIN WITHOUT CONTRAST 07/04/2025 REASON FOR EXAM: CONFUSION, PAST STROKE HISTORY TECHNIQUE: Procedure Code: MRIBR Modality: MR Procedure: BRAIN WITHOUT CONTRAST Multiplanar and multisequence images were obtained. COMPARISON: 08/26/2024 CT. FINDINGS: Moderate global parenchymal atrophy. Periventricular white matter T2/FLAIR hyperintensity likely representing severe chronic microvascular ischemia. No evidence of acute hemorrhage or infarction. No extra-axial blood or fluid collections. The paranasal sinuses and mastoid air cells are clear. The calvarial vault and skull base are intact. MRI/Brain without Contrast IMPRESSION: No acute intracranial abnormality. Parenchymal atrophy and chronic microvascular ischemia. Reading Location: [facility]
[2025-07-04 10:33] VITALS: BP 140/79; PULSE 120; RESP 20; TEMP 36.1; O2SAT 96
[2025-07-04] MEDS: Potassium Chloride Oral Tablet 20 MEQ PO (10:35)
--- NOTE | 2025-07-04 10:36 | CASEMGMT ---
Social Work SW emailed Elvi with [employer] regarding assisting with completing a LTC Medicaid application with the patient. CHINMAY Hinkle
--- NOTE | 2025-07-04 11:24 | NEURO.PNOTE ---
Assessment and Plan: Neuro Assessment/Plan VANESSA KLINE is a 80 F with a past medical history of prior stroke, being evaluated by Teleneurology for confusion in setting of hypertensive emergency and new UTI. Patient is currently feeling improved with improved BP. Exam with L sided numbness and slight weakness but confounded slightly as her L leg is normally weak with neuropathy from back issues. Additional history provided suggests that she has been having progressive decline in functioning, increasing delusions and calling his daughters. Discussing with patient, she admits she has had some memory issues. On two cognitive tests, patient has had concern for cognitive impairment. These are screening tests and patient should have more formal testing outpatient. She also had evidence of Vit B12 deficiency which can worsen cognitive impairment. - MRI Brain with severe frontal atrophy, no evidence of amyloid or masses - Vit B12 low, recommend 1000mcg IM weekly replacement - pending thiamine level, recommend aggressive thiamine replacement Recommend outpatient cognitive testing with Neurology. I personally attended this patient and spent a total time of 45minutes evaluating this patient including clinical assessment, review of chart, medical history imaging, and determining appropriate treatment and workup. Subject: Neurology Subjective Pt states she has been feeling well. Endorses feeling confused even before the UTI but denies any accidents at home (still cooks). Exam -? General: Laying comfortably in bed; in no acute distress. -? HENT: Normal oropharynx and mucosa. Normal external appearance of ears and nose. Exophthalmos. -? Neck: Supple, no pain or tenderness -? CV:? No peripheral edema. -? Pulmonary:? Normal respiratory effort. -? Ext: No cyanosis, edema, or deformity -? Skin: No rash. Normal palpation of skin.? -? Musculoskeletal: full range of motion; no joint tenderness. Normal digits and nails by inspection. No clubbing. -? NEURO: - MOCA: - VENTURA: -? Mental Status: The patient was alert and oriented to time, place, and person. Normal recent/remote memory, concentration, and general fund of knowledge. -? Language: speech is clear.? Naming, repetition, fluency, and comprehension intact. -? Cranial Nerves: EOMI, visual knight full, no facial asymmetry, facial sensation intact -? Motor: UE and LE antigravity b/l -? Tone: is normal and bulk is normal -? Sensation- not tested -? Coordination: not tested -? Gait- deferred EEG Results Procedure Details EEG Procedure Details: VANESSA KLINE is a 80 year old F with a past medical history of , who presents for evaluation of Electroencephalogram on DATE at TIME Objective Data Objective Data Vital Signs: Vital Signs Temp Pulse Resp BP Pulse Ox O2 Del Method 97.0 F L 120 H 20 H 140/79 H 96 Room Air 07/04/25 10:33 07/04/25 10:33 07/04/25 10:33 07/04/25 10:33 07/04/25 10:33 07/04/25 10:33 Oxygen Delivery Method Room Air Weight: 108 kg Body Mass Index (BMI) 40.8 Intake & Output: Intake and Output for Last 24 Hours 07/02/25 07/03/25 07/04/25 23:59 23:59 23:59 Intake Total 1007.5 / 1007.5 1160 / 1160 355 / 355 Output Total 300 / 300 Balance 707.5 / 707.5 1160 / 1160 355 / 355 Lab / Micro Data 07/02/25 06:24 07/02/25 07:37 Labs: Laboratory Results - last 24 hr 07/03/25 15:28: Vitamin B12 196, Serum Folate 12.90 Micro: Microbiology 07/01/25 15:05 Blood Culture (Wb) - Right Wrist Blood Culture - Preliminary No growth in 48 hours. 07/01/25 14:33 Blood Culture (Wb) - Right Forearm Blood Culture - Preliminary No growth in 48 hours. 07/01/25 15:05 Urine, Catheterized Urine Culture - Final Culture exhibits no growth. Rhythm Strip Rhythm Strip: narrow complex tachycardia Rate: 140 Ectopy: None
--- NOTE | 2025-07-04 11:29 | CASEMGMT ---
Social Work Elvi with [employer] meet with the patient and the patient refused to complete the Medicaid application. Patient reported she will not go to a NH and wants to DC home. Patient stated she will go to an [facility] but needs to go home first. CHINMAY Hinkle
--- NOTE | 2025-07-04 11:37 | CASEMGMT ---
Social Work SW called [facility]. She reported the case has been assigned to [facility]. She reported after an assessment is completed and embroidery assistant will go the patients home and that person will help with completing a Medicaid application. CHINMAY Hinkle
--- NOTE | 2025-07-04 13:47 | CASEMGMT ---
Addendum entered by Shweta Silva 07/04/25 15:07: The daughter is suppose to review the HH list and call SW with her choice. . Addendum entered by Shweta Silva 07/04/25 13:54: Patient will not qualify for a skilled rehab. Patient is walking 200 feet wheeled walker modified independent. Original Note: Social Work SW spoke with the daughter Dulce Maria. Dulce Maria reported [facility] contacted the her to start the process. Dulce Maria reported she was told it will 2 to 3 months to get approved. Dulce Maria reported she was told by the insurance company that her mother can get up to 35 hours a week in aid services. Dulce Maria reported she thinks her mom can DC home while waiting on the [facility] approval. Dulce Maria reported she plans on coming to [place] she just does not know exactly when yet. GLENN explained her mother refused to sign the Medicaid application for LTC. CHINMAY Hinkle
--- NOTE | 2025-07-04 15:15 | CASEMGMT ---
Social Work Patient should DC tomorrow. SW submitted the referral for CCN and completed the HH order. CHINMYA Hinkle
--- NOTE | 2025-07-04 15:22 | CASEMGMT ---
Social Work The daughter Dulce Maria called SW. The daughter Dulce Maria reported she wants [facility] HH. GLENN informed her SW would order SN, SW and aides with HH and SW also ordered CCN that will assist with medication education. SW informed the daughter that the patient should DC tomorrow. GLENN suggested they safety proof the house such as unplugging the stove and taking the knobs off the stove. CHINMAY Hinkle
--- NOTE | 2025-07-04 16:00 | CASEMGMT ---
Social Work SW called [facility] to set up for SN, SW and aids and left a message. CHINMAY Hinkle
--- NOTE | 2025-07-04 16:04 | CASEMGMT ---
Social Work Per imaging pt negative for stroke, therefore PHQ9 not completed. CHINMAY Hinkle
--- NOTE | 2025-07-04 16:18 | CASEMGMT ---
Social Work GLENN called Erika and let her know the patient is DC today. Erika stated she wants someone to call her about 15 minutes before the patient is ready. GLENN gave the nurse Erika's name and phone number. Patient has been accepted by [facility] and SOC is 07/08/25. CHINMAY Hinkle
--- NOTE | 2025-07-04 16:23 | CASEMGMT ---
Addendum entered by Shweta Silva 07/05/25 11:17: The physician is aware of the DC plan and that patient refused to sign a Medicaid application. Original Note: Social Work SW spoke with the patient and informed her that [facility] will be calling her and they will help with setting up her medications. SW also informed her that [facility] HH will start Tuesday and they will be calling her. SW informed her that the referral for [facility] has been started. SW informed her that SW called her friend Erika and Erika will pick her up when she is ready to DC today. CHINMAY Hinkle
--- NOTE | 2025-07-04 16:25 | DCINST_ITS ---
Discharge Instructions DC O2, CPAP, BIPAP needs Home O2 Discharge instructions: No Dressing / Incision Discharge Activity: Return to Normal Activity Weight Bearing Status: Full weight bearing Follow Up Care Test Results: Test results from this visit will be discussed in further detail at your follow- up appointment, if applicable. Discharge Plan Admission Admit Date/Time: 07/01/25 17:32 Primary Reason for Your Visit: Cognitive impairment, asymptomatic tachycardia Attending Provider: Joshua Woods Primary Care Provider: Katiana Rayo Consulting Providers: Dilia Best; Nav Harding; Snoal Vivar; Parul Lagos; Beena Wagner; Leeann Killian; Mandeep Hannon; Pamella Carl; Moustapha Tran; Benji Miranda; Yrn Paulson; Ivanna Gillis; Shruti Spencer; Eric Renee; Love Handy; Addie Guardado; Trisha Burden; Ha Baxter; Sukhdev Ashraf; Kevin Gonzalez; Collette Chery; Will Locke Instructions Additional Instructions / Restrictions: Take 81 mg aspirin daily, take 1000 mcg of vitamin B12 daily Discharge Orders/Prescriptions Prescriptions: New acetaminophen 325 mg Tablet 650 mg PO Q6H PRN PRN (Reason: Pain 1-10 Or Fever >100.7) Qty: 0 0RF memantine [Namenda] 5 mg tablet 5 mg PO BID Qty: 60 0RF aspirin 81 mg tablet,delayed release (DR/EC) 81 mg PO DAILY Qty: 1 0RF Continued multivitamin with minerals 1 EACH tablet 1 tab PO DAILY sumatriptan succinate [Imitrex STATdose Pen] 6 mg/0.5 mL pen injector 6 mg subcut Q1-4H PRN (Reason: migraine headache) Qty: 1 2RF Rx Instructions: do not exceed 2 doses in a 24 hour period (DME) Ultra-Light Rollator Misc See Rx Instructions .Route Qty: 1 0RF Rx Instructions: As directed atorvastatin 40 mg tablet 40 mg PO QHS Qty: 90 3RF gabapentin 100 mg capsule 100 mg PO Q12H Qty: 180 3RF omeprazole 40 mg capsule,delayed release(DR/EC) 40 mg PO DAILY Qty: 90 3RF potassium chloride [Klor-Con M20] 20 mEq tablet,ER particles/crystals 20 meq PO QDAY Qty: 90 3RF ropinirole 0.5 mg tablet 0.5 mg PO QHS Qty: 90 3RF Rx Instructions: administer 1-3 hours before bedtime sertraline 100 mg tablet 200 mg PO DAILY Qty: 180 3RF Rx Instructions: 200 mg PO daily; trazodone 50 mg tablet 25 mg PO DAILY PRN (Reason: insomnia) Qty: 30 0RF Gemtesa 75 mg tablet 75 mg PO QDAY Qty: 90 0RF Discontinued ciprofloxacin HCl 250 mg tablet 250 mg PO BID 3 Days Qty: 6 0RF Patient Comments: pt has only had 1 dose as of 07/01/25 1411 clopidogrel 75 mg tablet 75 mg PO DAILY Qty: 90 3RF Referrals / Follow Up: Katiana Rayo MD [Primary Care Provider, Internal Medicine - [facility]] - Within 2 Weeks Disposition Disposition (needs filled in before D/C Order can be placed): Home, Self Care
[2025-07-04 16:47] VITALS: BP 150/93; PULSE 120; RESP 19; TEMP 36.7; O2SAT 96
--- NOTE | 2025-07-04 16:59 | PHA.DC_ITS ---
Pharmacy [facility] has performed discharge medication counseling for this patient. The patient was counseled on the following discharge medications and changes in medications for homegoing review. - Memantine 5 mg tablet, Aspirin 81 mg tablet, Acetaminophen 325 mg tablet The Reason for Use, instructions for use, and potential side effects were reviewed for all new medications. The patient's questions regarding all of their medications were answered. The patient was able to verbally demonstrate an understanding of their discharge medications. Medications at Discharge Home Medications multivitamin with minerals 1 tab PO DAILY supplement 09/24/20 sumatriptan succinate 6 mg/0.5 mL subcutaneous pen injector (Imitrex STATdose Pen) 6 mg (0.5 mL) subcut Q1-4H PRN migraine headache #1 mL 12/10/24 walker (Ultra-Light Rollator misc) #1 ea 01/07/25 atorvastatin 40 mg tablet 40 mg PO QHS cholesterol #90 tabs 04/03/25 gabapentin 100 mg capsule 100 mg PO Q12H neuropathy #180 caps 04/03/25 omeprazole 40 mg capsule,delayed release 40 mg PO DAILY stomach #90 caps 04/03/25 potassium chloride 20 mEq tablet,extended release(part/cryst) (Klor-Con M) 20 meq PO QDAY supplement #90 tabs 04/03/25 ropinirole 0.5 mg tablet 0.5 mg PO QHS restless legs #90 tabs 04/03/25 sertraline 100 mg tablet 200 mg (2 x 100 mg) PO DAILY mood #180 tabs 04/03/25 trazodone 50 mg tablet 25 mg (1/2 x 50 mg) PO DAILY PRN insomnia #30 tabs 05/20/25 Gemtesa 75 mg tablet (vibegron) 75 mg PO QDAY bladder #90 tabs 05/24/25 acetaminophen 325 mg tablet 650 mg (2 x 325 mg) PO Q6H PRN PRN Pain 1-10 Or Fever >100.7 #0 tabs 07/04/25 aspirin 81 mg tablet,delayed release 81 mg PO DAILY #1 TAB 07/04/25 memantine 5 mg tablet (Namenda) 5 mg PO BID #60 tabs 07/04/25
--- NOTE | 2025-07-05 13:48 | CCN.REFER ---
PATIENT DOES NOT MEET CRITERIA FOR CCN SHE WAS ACTIVE W/ CCN FROM 12/2018-07/2023.
--- NOTE | 2025-07-05 14:14 | CASEMGMT ---
Social Work SW called [facility] and left a message. CHINMAY Hinkle
--- NOTE | 2025-07-05 14:19 | CASEMGMT ---
Social Work Bernard with [facility] called GLENN back. GLENN explained that the patient is alert and oriented times 3 but she is confused and she has early stages of dementia. GLENN gave Bernard name and contact information. GLENN explained the services that have been set up for the patient and the friend that will going to the house in the mornings and evenings to check on the patient. CHINMAY Hinkle
--- NOTE | 2025-07-07 13:12 | PCM.DC.SUM ---
Providers Date of Admission: 07/01/25 Date of Discharge: 07/07/25 Primary Care Physician: Dr. Katiana Rayo MD Consultations 07/03/25 09:39 Consult: Tele-Neurology Routine Consulting Provider: [facility] Reason for Consult: confusion, ? dementia EMERGENT Consult: No MD Notified: Yes Date Notified: 07/03/25 Time Notified: 10:19 Method of Notification: Answering Service Nursing Unit Staff Notify [facility] of Tele-Neurology Consult: Yes Reason For Visit: AMIS, SOB, TACHYCARDIA Diagnosis Discharge Diagnosis (1) Sinus tachycardia: Status: Acute Code(s): R00.0 - Tachycardia, unspecified (2) Encephalopathy: Status: Acute Code(s): G93.40 - Encephalopathy, unspecified Plan 1. Chronic cognitive impairment-I suspect the patient has underlying dementia, again she will have an MRI performed tomorrow, she is filling out a [facility] exam for neurology to review, I have added additional lab test for the patient including a B12 level, thiamine level, and folate level, patient was placed on IV thiamine per recommendation of neurology. #2 acute cystitis was ruled out #3 tachycardia-etiology unclear, patient will continue to be monitored on telemetry #4 hyperlipidemia-patient is on a statin #5 chronic depression-patient is on Zoloft I talked at length with both daughters today. Total clinical time spent by myself addressing the patient's medical issues, reviewing all of her data, and collaborating with patient's care team: 35 minutes Medications at Discharge Home Medications multivitamin with minerals 1 tab PO DAILY supplement 09/24/20 sumatriptan succinate 6 mg/0.5 mL subcutaneous pen injector (Imitrex STATdose Pen) 6 mg (0.5 mL) subcut Q1-4H PRN migraine headache #1 mL 12/10/24 walker (Ultra-Light Rollator misc) #1 ea 01/07/25 atorvastatin 40 mg tablet 40 mg PO QHS cholesterol #90 tabs 04/03/25 gabapentin 100 mg capsule 100 mg PO Q12H neuropathy #180 caps 04/03/25 omeprazole 40 mg capsule,delayed release 40 mg PO DAILY stomach #90 caps 04/03/25 potassium chloride 20 mEq tablet,extended release(part/cryst) (Klor-Con M) 20 meq PO QDAY supplement #90 tabs 04/03/25 ropinirole 0.5 mg tablet 0.5 mg PO QHS restless legs #90 tabs 04/03/25 sertraline 100 mg tablet 200 mg (2 x 100 mg) PO DAILY mood #180 tabs 04/03/25 trazodone 50 mg tablet 25 mg (1/2 x 50 mg) PO DAILY PRN insomnia #30 tabs 05/20/25 Gemtesa 75 mg tablet (vibegron) 75 mg PO QDAY bladder #90 tabs 05/24/25 acetaminophen 325 mg tablet 650 mg (2 x 325 mg) PO Q6H PRN PRN Pain 1-10 Or Fever >100.7 #0 tabs 07/04/25 aspirin 81 mg tablet,delayed release 81 mg PO DAILY #1 TAB 07/04/25 memantine 5 mg tablet (Namenda) 5 mg PO BID #60 tabs 07/04/25 Hospital Course Operations None Procedures None Summary of Care Provided Minutes Spent on Discharge: 32 Hospital Course: This 80-year-old white female was seen in the emergency room [facility] with a chief complaint of mental status change and possible urinary tract infection, she had been treated as an outpatient with Macrobid and visited her PCPs office who felt that she needed to come in to rule out sepsis due to her tachycardia. EKG was obtained which showed sinus tachycardia, for lab results please refer to the patient's medical record. Patient appeared with mild to moderate confusion, it was unclear whether a UTI was causing this and so the patient was admitted to PCU and placed on antibiotics for presumed UTI. Patient was monitored on telemetry which showed a nonspecific tachycardia, rates were sometimes in the 130s to 140s, echocardiogram was ordered and it was unremarkable. Patient was seen in consultation by teleneurology, I suspect that she might have an underlying dementia, she underwent an MRI after her spinal stimulator was adjusted by i-nexuss, this MRI did not show evidence of stroke or acute process. Patient was given a mental status examination by teleneurology, teleneurology felt that she did have cognitive impairment in keeping with dementia. I had multiple issues with they felt in the end it was safe for the patient to go home, she was seen and examined on 07/04/2025:lert, no apparent distress and healthy appearing General Appearance: cooperative, well kempt and well developed Orientation / Consciousness: awake, oriented to person and oriented to place HEENT normocephalic, head/scalp atraumatic and moist oral mucous membranes Eyes PERRL, EOMs intact bilaterally and conjunctivae normal Neck supple, no JVD, thyroid normal and no carotid bruits General: trachea midline Resp normal respiratory effort, no retractions, no use of accessory muscles and clear to auscultation bilaterally Auscultation: Negative for rales, rhonchi or wheezes Cardio regular rate, regular rhythm, S1 normal heart sound, S2 normal heart sound, no murmurs, no rub and no gallops GI normal to inspection, nondistended, normoactive bowel sounds, soft to palpation, non-tender and non-distended Extremity no clubbing, cyanosis or edema Skin no rashes or lesions noted General Skin Exam: no breakdown Neuro CN's II-XII intact bilaterally, moves all extremities, no focal motor deficits and no sensory deficits noted Sensorium / Orientation: awake, alert, oriented to person and oriented to place Speech: speech normal Psych affect normal Patient was discharged home in stable condition on 07/04/2025. Weight / BMI Weight Weight: 108 kg Body Mass Index (BMI) 40.8 ABG / Lab / Microbiology Data 07/02/25 06:24 07/02/25 07:37 Microbiology: Microbiology 07/01/25 15:05 Blood Culture (Wb) - Right Wrist Blood Culture - Final No growth in 5 days. 07/01/25 14:33 Blood Culture (Wb) - Right Forearm Blood Culture - Final No growth in 5 days. 07/01/25 15:05 Urine, Catheterized Urine Culture - Final Culture exhibits no growth. D/C Instructions Weight Bearing Status: Full weight bearing DC O2, CPAP, BIPAP Needs Home O2 Discharge instructions: No Meaningful Use Info Meaningful Use Meaningful Use Diagnoses (Choose all that apply): None applicable Discharge Plan Admission Admit Date/Time: 07/01/25 17:32 Primary Reason for Your Visit: Cognitive impairment, asymptomatic tachycardia Attending Provider: Joshua Woods Primary Care Provider: Katiana Rayo Consulting Providers: Dilia Best; Nav Harding; Sonal Vivar; Parul Lagos; Beena Wagner; Leeann Killian; Mandeep Hannon; Pamella Carl; Moustapha Tran; Benji Miranda; Yrn Paulson; Ivanna Gillis; Shruti Spencer; Eric Renee; Love Handy; Addie Guardado; Trisha Burden; Ha Baxter; Sukhdev Ashraf; Kevin Gonzalez; Collette Chery; Will Locke Instructions Additional Instructions / Restrictions: Take 81 mg aspirin daily, take 1000 mcg of vitamin B12 daily Discharge Orders/Prescriptions Prescriptions: New acetaminophen 325 mg Tablet 650 mg PO Q6H PRN PRN (Reason: Pain 1-10 Or Fever >100.7) Qty: 0 0RF memantine [Namenda] 5 mg tablet 5 mg PO BID Qty: 60 0RF aspirin 81 mg tablet,delayed release (DR/EC) 81 mg PO DAILY Qty: 1 0RF Continued multivitamin with minerals 1 EACH tablet 1 tab PO DAILY sumatriptan succinate [Imitrex STATdose Pen] 6 mg/0.5 mL pen injector 6 mg subcut Q1-4H PRN (Reason: migraine headache) Qty: 1 2RF Rx Instructions: do not exceed 2 doses in a 24 hour period (DME) Ultra-Light Rollator Misc See Rx Instructions .Route Qty: 1 0RF Rx Instructions: As directed atorvastatin 40 mg tablet 40 mg PO QHS Qty: 90 3RF gabapentin 100 mg capsule 100 mg PO Q12H Qty: 180 3RF omeprazole 40 mg capsule,delayed release(DR/EC) 40 mg PO DAILY Qty: 90 3RF potassium chloride [Klor-Con M20] 20 mEq tablet,ER particles/crystals 20 meq PO QDAY Qty: 90 3RF ropinirole 0.5 mg tablet 0.5 mg PO QHS Qty: 90 3RF Rx Instructions: administer 1-3 hours before bedtime sertraline 100 mg tablet 200 mg PO DAILY Qty: 180 3RF Rx Instructions: 200 mg PO daily; trazodone 50 mg tablet 25 mg PO DAILY PRN (Reason: insomnia) Qty: 30 0RF Gemtesa 75 mg tablet 75 mg PO QDAY Qty: 90 0RF Discontinued ciprofloxacin HCl 250 mg tablet 250 mg PO BID 3 Days Qty: 6 0RF Patient Comments: pt has only had 1 dose as of 07/01/25 1411 clopidogrel 75 mg tablet 75 mg PO DAILY Qty: 90 3RF Referrals / Follow Up: Katiana Rayo MD [Primary Care Provider, Internal Medicine - [facility]] - Within 2 Weeks Disposition Disposition (needs filled in before D/C Order can be placed): Home Health Service Charges/Coding Visit Charges Inpatient E&M: 83207 Disch Hosp >30min
[2025-07-10 13:08] LABS: Vitamin B1, Thiamine 113.1 nmol/L (66.5-200.0)
== END 2025-07-04 18:01 | disposition home health service (06) | DRG 884 ==
LOC: ED 16:40 → PCU 16:56
PROVIDERS: Admitting Provider Internal Medicine; Emergency Provider Emergency Medicine; PCP Internal Medicine; Visit Provider Internal Medicine
DX: F03.90 Unspecified dementia, unspecified severity, without behavioral disturbance, psychotic disturbance, mood disturbance, and anxiety (principal); I16.1 Hypertensive emergency; G93.40 Encephalopathy, unspecified; G25.81 Restless legs syndrome; F32.A Depression, unspecified; I10 Essential (primary) hypertension; E53.8 Deficiency of other specified B group vitamins; E78.5 Hyperlipidemia, unspecified; K21.9 Gastro-esophageal reflux disease without esophagitis; G62.9 Polyneuropathy, unspecified; F41.9 Anxiety disorder, unspecified; Z79.899 Other long term (current) drug therapy; Z86.73 Personal history of transient ischemic attack (TIA), and cerebral infarction without residual deficits; Z87.891 Personal history of nicotine dependence; Z90.710 Acquired absence of both cervix and uterus; Z79.02 Long term (current) use of antithrombotics/antiplatelets; Z23 Encounter for immunization; Z90.49 Acquired absence of other specified parts of digestive tract; Z96.653 Presence of artificial knee joint, bilateral; R00.0 Tachycardia, unspecified; N32.81 Overactive bladder; R41.82 Altered mental status, unspecified
CPT/HCPCS: 36415; 70551; 71045; 80048; 80053; 81001; 82607; 82746; 83605; 83735; 83880; 84425; 84439; 84443; 84484; 85025; 85379; 85610; 85730; 87040; 87086; 93005; 93306; 97161; 97165; 99285; P9612; Q9957; A4216; C8929; J2405

== ENCOUNTER 2025-07-07 09:43 | Observation (INO) | payer MEDICARE, SELFPAY ==
[2025-07-07] VITALS (8 sets, daily range): BP systolic 133–184; BP diastolic 66–114; PULSE 85–117; RESP 16–20; TEMP 36.2–37.1; O2SAT 97–100; BMI 41.8; BMI 40.7
--- NOTE | 2025-07-07 09:53 | EDS_ITS ---
HPI History of Present Illness Chief Complaint: Hypertension Narrative Narrative: Patient is a 80-year-old female presenting to the emergency department for hypertension. She has a past medical history of hypertension, paroxysmal tachycardia, bilateral lower extremity edema, CVA, vertigo. Patient here with friend/caregiver who helps provide history. Patient states that she was just discharged on 07/05 after being admitted for 4 days for delirium likely secondary to UTI. She does not know if she is ever been diagnosed with hypertension and it does not look like she is on any antihypertensives. She was told by a doctor that she should check her blood pressure multiple times a day so they bought a blood pressure cuff and has been checking it multiple times throughout the day and noted that her systolics were in the 180s to 190s. Yesterday she had headache that felt like her migraines for which she took sumatriptan for. She states she does not have a headache today. Denies any focal numbness or weakness. Denies any slurred speech or visual changes. Endorses shortness of breath that started this morning. Denies chest pain, abdominal pain, vomiting, lower extremity swelling worse than normal. [facility] Medical History Ankylosing spondylitis Urinary tract infection Sinus tachycardia Subconjunctival hemorrhage Conjunctival hemorrhage of left eye Balance problem Urinary incontinence Right hip pain Microcytic anemia Anxiety Rheumatoid arthritis Non-smoker Migraines TIA (transient ischemic attack) Stroke/cerebrovascular accident Generalized weakness Hypokalemia Abdominal pain Asthma DDD (degenerative disc disease) Obesity Frequent falls Essential (primary) hypertension Overactive bladder Chronic back pain Insomnia Hyperlipidemia Depression Osteoarthritis of left knee Iron deficiency anemia Localized swelling of chest wall Confusion Dark stools Left-sided chest wall pain Vitamin D deficiency Vision problems Pneumonia Osteoarthritis Neuropathy IBS (irritable bowel syndrome) Chronic headaches GERD (gastroesophageal reflux disease) H/O emotional problems Chronic bronchitis Home Medications ?Medication ?Instructions ?Recorded ?Last Taken ?Type multivitamin with minerals 1 tab PO DAILY supplement 0 09/24/20 06/30/25 History sumatriptan succinate 6 mg/0.5 mL 6 mg (0.5 mL) subcut Q1-4H PRN 12/10/24 Unknown Rx subcutaneous pen injector (Imitrex migraine headache # 1 mL STATdose Pen) walker (Ultra-Light Rollator misc) #1 ea 01/07/25 Unkn own Rx atorvastatin 40 mg tablet 40 mg PO QHS cholesterol #90 tabs 04/03/25 06/30/25 Rx gabapentin 100 mg capsule 100 mg PO Q12H neuropathy #1 80 caps 04/03/25 06/30/25 Rx omeprazole 40 mg capsule,delayed 40 mg PO DAILY stomac h #90 caps 04/03/25 06/30/25 Rx release potassium chloride 20 mEq 20 meq PO QDAY supplement #9 0 tabs 04/03/25 06/30/25 Rx tablet,extended release(part/cryst) (Klor-Con M) ropinirole 0.5 mg tablet 0.5 mg PO QHS restless legs #90 04/03/25 06/30/25 Rx tabs sertraline 100 mg tablet 200 mg (2 x 100 mg) PO DAILY mood 04/03/25 06/30/25 Rx #180 tabs trazodone 50 mg tablet 25 mg (1/2 x 50 mg) PO DAILY PRN 05/20/25 Unknown Rx insomnia #30 tabs Gemtesa 75 mg tablet (vibegron) 75 mg PO QDAY bladder #90 tabs 05/24/25 06/30/25 Rx acetaminophen 325 mg tablet 650 mg (2 x 325 mg) PO Q6H PRN PRN 07/04/25 Unknown Rx Pain 1-10 Or Fever >100.7 #0 tabs aspirin 81 mg tablet,delayed 81 mg PO DAILY #1 TAB 06/18 Unknown Rx release memantine 5 mg tablet (Namenda) 5 mg PO BID #60 tabs 1 09/04/24 Unknown Rx Allergy/AdvReac Type Severity Reaction Status Date / Time adhesive tape Allergy Severe Area Sore Verified 07/07/25 09:43 cefpodoxime (From Vantin) Allergy Unknown Unknown Verified 07/07/25 09:43 codeine Allergy Unknown Unknown Verified 07/07/25 09:43 metronidazole (From Flagyl) Allergy Unknown Unknown Verified 07/01/25 18:07 sulfamethoxazole (From Allergy Unknown Unknown Verified 07/07/25 09:43 Bactrim) trimethoprim (From Bactrim) Allergy Unknown Unknown Verified 07/07/25 09:43 Sulfa (Sulfonamide Allergy Unknown Verified 07/07/25 09:43 Antibiotics) Family History Sister Anesthesia complication Breast cancer Hypertension Cancer Thyroid, rectal, kidney Thyroid disorder Diabetes Mother Arthritis Pancreatic cancer Depression Diabetes Father Colon cancer Hypertension CVA (cerebral vascular accident) Sister Cancer rectal/kidney/medullary Thyroid cancer Surgical History History of appendectomy History of left knee replacement History of left heart catheterization (10/14/20) 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 History of total right knee replacement History of gastric surgery History of hysterectomy History of Hx of breast reduction, elective History of back surgery History of hernia repair History of right knee joint replacement History of cholecystectomy Social History household members: none housing: apartment current occupational status: retired Smoking Status: Former smoker alcohol intake: never substance use type: does not use what type of physical activity do you participate in: none ROS ROS ED ROS Narrative See HPI EXAM Physical Exam Narrative Exam Narrative: Vital signs: Reviewed General: Alert and oriented x 3. No acute distress. Chronically ill-appearing, nontoxic. HEENT: Head is normocephalic and atraumatic, sinuses nontender, pupils equal round and reactive. Nares are patent. Oropharynx and throat exams normal. Neck: Supple without lymphadenopathy nontender Cardiovascular: Regular rate and rhythm, no murmurs. No rubs or gallops. Normal S1 and S2 Respiratory: Clear to auscultation bilaterally. No wheezes, rales, rhonchi Abdominal: Soft and nontender. Normal bowel sounds. No guarding or rebound. Nonsurgical abdomen Extremities: Scant bilateral lower extremity edema, nonpitting. No asymmetry to the swelling. No tenderness of the calves. No erythema or warmth of the calves. No palpable cords. No tenderness. No bruising. Normal range of motion. Normal sensation. Skin: No rash or redness. Neurological: Cranial nerves II through XII are grossly intact. Normal strength and sensation. Normal cerebellar function The rest of the physical exam is unremarkable Const Vital Signs: 07/07/25 09:43 07/07/25 10:50 07/07/25 11:13 Temperature 97.1 F L Temperature Source Temporal Pulse Rate 93 88 87 Respiratory Rate 16 16 Blood Pressure 184/99 H 175/101 H 182/110 H Blood Pressure Mean 127 125 134 Pulse Ox 100 99 98 Oxygen Delivery Method Room Air Room Air 07/07/25 12:28 Temperature Temperature Source Pulse Rate 87 Respiratory Rate 19 H Blood Pressure 173/106 H Blood Pressure Mean 128 Pulse Ox 100 Oxygen Delivery Method Room Air MDM MDM MDM Narrative Medical decision making narrative: Patient is an 80-year-old female presenting to the emergency department for shortness of breath and hypertension noted at home. Patient was seen and examined. Vitals are stable. Blood pressure here on arrival is 184/99. She saturating 100% on room air with no tachypnea. Pulse of 93. Differential includes but is not limited to: Asymptomatic hypertension, h ypertensive emergency, pneumonia, CHF, ACS EKG shows normal sinus rhythm at a rate of 79 with no ischemic changes. No dysrhythmia. CBC with no leukocytosis and chronic anemia of 11.1. D-dimer is n egative for her age. BMP with no significant abnormalities. BNP within normal limits. Troponin within normal limits. Chest x-ray shows no opacities, pneumothorax or mediastinum. Radiology read in agreement. I did review the patient's medication list and I do not see any antihypertensives that are prescribed to her. She and friends at bedside who are also caregivers for her were updated on the negative shortness of breath workup. Daughter who is MATEUSZ lives in [place] called the emergency department to talk to charge nurse and explained that the patient was diagnosed with dementia this week and she lives at home alone and the patient needs to be placed. Friends at bedside are in agreement. They state that the patient cannot care for herself. Patient is also agreeable with placement. Will be admitted for placement. Spoke to hospitalistDr Clinical impression HTN Dyspnea History & Record Review Discussion w/independent historian: Patient and Family Lab Data Attestation: I reviewed the patient's lab results. Labs: Laboratory Results - last 24 hr 07/07/25 07/07/25 10:35 10:58 WBC 9.2 RBC 4.40 Hgb 11.1 L Hct 37.7 MCV 85.7 MCH 25.2 L MCHC 29.4 L RDW Std Deviation 52.0 H RDW Coeff of Karon 16.5 H Plt Count 226 MPV 9.6 Immature Gran % (Auto) 0.700 Neut % (Auto) 62.5 Lymph % (Auto) 20.8 Dauphin % (Auto) 11.7 H Eos % (Auto) 3.8 Baso % (Auto) 0.5 Absolute Neuts (auto) 5.7 Absolute Lymphs (auto) 1.91 Nucleated RBC % 0 D-Dimer Quant (PE/DVT) 0.73 H* Sodium 140 Potassium 4.5 Chloride 104 Carbon Dioxide 27.1 Anion Gap 9 BUN 19 Creatinine 0.69 L Estim Creat Clear Calc 68.37 Est GFR (MDRD) Non-Af 88 BUN/Creatinine Ratio 27.8 H Glucose 102 H Calcium 9.3 Troponin T High Sens 9 D NT pro BNP II 137 Radiography Diagnostic Testing: Clinical Impression(s) from Imaging Studies Chest X-Ray 07/07/25 10:45 IMPRESSION: No focal consolidations. Reading Location: [facility] Discharge Plan Triage Chief Complaint: Hypertension ED Provider: Candace Silverman Dx/Rx/DC Orders Prescriptions: No Action multivitamin with minerals 1 EACH tablet 1 tab PO DAILY acetaminophen 325 mg Tablet 650 mg PO Q6H PRN PRN (Reason: Pain 1-10 Or Fever >100.7) Qty: 0 0RF memantine [Namenda] 5 mg tablet 5 mg PO BID Qty: 60 0RF aspirin 81 mg tablet,delayed release (DR/EC) 81 mg PO DAILY Qty: 1 0RF sumatriptan succinate [Imitrex STATdose Pen] 6 mg/0.5 mL pen injector 6 mg subcut Q1-4H PRN (Reason: migraine headache) Qty: 1 2RF Rx Instructions: do not exceed 2 doses in a 24 hour period (DME) Ultra-Light Rollator Misc See Rx Instructions .Route Qty: 1 0RF Rx Instructions: As directed atorvastatin 40 mg tablet 40 mg PO QHS Qty: 90 3RF gabapentin 100 mg capsule 100 mg PO Q12H Qty: 180 3RF omeprazole 40 mg capsule,delayed release(DR/EC) 40 mg PO DAILY Qty: 90 3RF potassium chloride [Klor-Con M20] 20 mEq tablet,ER particles/crystals 20 meq PO QDAY Qty: 90 3RF ropinirole 0.5 mg tablet 0.5 mg PO QHS Qty: 90 3RF Rx Instructions: administer 1-3 hours before bedtime sertraline 100 mg tablet 200 mg PO DAILY Qty: 180 3RF Rx Instructions: 200 mg PO daily; trazodone 50 mg tablet 25 mg PO DAILY PRN (Reason: insomnia) Qty: 30 0RF Gemtesa 75 mg tablet 75 mg PO QDAY Qty: 90 0RF Primary Care Provider: Katiana Rayo Referrals: Katiana Rayo MD [Primary Care Provider, Internal Medicine - [facility]] Print Language: Mauritanian
--- NOTE | 2025-07-07 10:05 | EKG12_ITS ---
Test Reason : Blood Pressure : */* mmHG Vent. Rate : 79 BPM Atrial Rate : 79 BPM P-R Int : 158 ms QRS Dur : 84 ms QT Int : 382 ms P-R-T Axes : 41 33 66 degrees QTcB Int : 438 ms Normal sinus rhythm Normal ECG Confirmed by OLVIN MARTINEZ, ARPITA ([id number]), state editor JODI SANTILLAN ([id number]) on 07/09/2025 1:13:36 PM Referred By: Confirmed By: ARPITA BAH MD
--- NOTE | 2025-07-07 10:45 | RAD_ITS ---
PROCEDURE: CHEST PA AND LATERAL 07/07/2025 REASON FOR EXAM: SOB TECHNIQUE: Procedure Code: RADCXR Modality: DX Procedure: CHEST PA AND LATERAL FINDINGS: No focal consolidation. Bibasilar subsegmental atelectasis. No pleural effusion or pneumothorax. Cardiac silhouette is within normal limits. Calcified aortic arch. No acute fractures. Neurostimulator device noted. RAD/Chest PA and Lateral IMPRESSION: No focal consolidations. Reading Location: [id number]
[2025-07-07 10:46] LABS: Hematocrit 37.7 % (37-47); Hemoglobin 11.1 g/dL (12.0-15.0); Immature Granulocytes Count 0.060 X10^3/uL (0.0-0.0); Mean Corp Hgb Conc 29.4 g/dL (32-36); Mean Corpuscular Volume 85.7 fL (81-99); Mean Platelet Vol. 9.6 fl (6.2-12.0); NRBC Flagged by Analyzer 0 % (0-5); Platelet Count 226 K/mm3 (150-450); RBC Distribution Width CV 16.5 % (11.6-14.6); RBC Distribution Width SD 52.0 fl (35.1-43.9); Red Blood Count 4.40 M/mm3 (4.2-5.4); White Blood Count 9.2 K/mm3 (4.4-11.0)
[2025-07-07 11:00] LABS: Troponin T High Sensitivity 9 ng/L (<=14)
[2025-07-07 11:02] LABS: Anion Gap 9 (5-15); BUN 19 mg/dL (4-19); BUN/Creat Ratio 27.8 RATIO (10-20); Calcium,Total 9.3 mg/dL (7.6-11.0); Carbon Dioxide 27.1 mmol/L (21.0-32.0); Chloride 104 mmol/L (98-108); Estimated Creatinine Clearance 68.37 ml/min (50-250); Glucose 102 mg/dL (70-99); Potassium 4.5 mmol/L (3.3-5.1); Pro- Brain NATRIURETIC PEPTIDE 137 pg/mL (<=1800)
--- OUTSIDE RECORDS SUMMARY | 2025-07-07 11:03 | XMS RPT_ITS | CCD ---
Author Organization [facility] CliniSyut Care Team Providers Care Catalyst Supervisor Name Role Phone Dr. Moon Rayo Primary Care Provider Dr. Moon Rayo Attending Provider [phone] Dr. Moon Rayo Referring Provider [phone] Dr. Moon Rayo Primary Care Provider Hans Mcnamara Attending Provider Unavailable Dr. Moon Rayo Attending Provider [phone])[phone] Dr. Moon Rayo Primary Care Provider Dr. Moon Rayo Attending Provider Dr. Sterling Orosco Attending Provider [phone]([phone] Moon Rayo Primary Care Provider Dr. Moon Rayo Attending Provider Dr. Moon Rayo Referring Provider Dr. Sterling Orosco Attending Provider 1([facility])[phone] Moon Rayo Primary Care Provider Dr. Moon Rayo Attending Provider [phone] Dr. Kelle Foster Emergency Provider Dr. Felipe Drew Admit Provider Unavailabl e Dr. Felipe Drew Other Provider Unavailabl e Dr. Dilia Best Attending Provider Dr. Dilia Best Other Provider Dr. Sterling Orosco Attending Provider [phone] Luis Miguel Freeman Attending Provider [...] Dr. Hima Zimmer Other Provider Dr. Moon Rayo Primary Care [...] Attending Provider Dr. Hima Zimmer Other Provider [phone] MOON RAYO MD Attending Unavailable Dr. Moon Rayo MD Primary Care Provider Dr. Moon Rayo MD Attending Provider Dr. Moon Rayo MD Referring Provider Dr. Moon Rayo MD Primary Care Provider Dr. Jojo Sanchez MD Attending Provider Dr. Moon Rayo MD Primary Care Physician [phone] Dr. Jojo Sanchez MD Attending Physician Dr. Moon Rayo MD Attending Physician [phone] Jonathan Eng Attending Unavailable Girma, Moon Primary Care Unavailable GirmaMoon Attending Unavailable Girma, Moon Primary Care Unavailable GirmaMoon Attending Unavailable Girma, Omon Primary Care Unavailable GirmaMoon Attending Unavailable Girma, [...] tape] Allergy to substance 2 Area Sore [facility] (16 sources) cefpodoxime Drug Allergy 2 [facility] (16 sources) Codeine Drug Allergy 2 [facility] Comment on above: HALLUCINATIONS (16 sources) metroNIDAZOLE Drug Allergy 2 Unknown [facility] (16 sources) Sulfamethoxazole Drug Allergy 2 [facility] (17 sources) Sulfonamides (Antibiotic); Translations: [Sulfa (Sulfonamide Antibiotics)] Allergy to substance 2 Unknown [facility] (16 sources) Trimethoprim Drug Allergy 2 Unknown [facility] (1 source) cefpodoxime Drug Allergy 5 [facility] (1 source) Codeine Drug Allergy 5 [facility] (1 source) metroNIDAZOLE Drug Allergy 5 [facility] (1 source) Sulfamethoxazole Drug Allergy 5 [facility] (1 source) Trimethoprim Drug Allergy 5 [facility] Medications Current Medications Medication Drug Class(es) [...] Other acute postprocedural pain polyethylene glycol 3350 08556 mg powder for oral solution (16 sources) [...] 05-24-2025 HIP, UNI W/ Pelvis 2-3 Views [facility] Imaging Services [address] [place] [address] [id number] HIP, UNI W/ Pelvis 2-3 Views MR#: [id number] Acct: [id number] Name: VANESSA HERNANDEZ Rep #: [id number] : 1945 F 80 From: Felipe Wesley PCP: Dr. Moon Rayo MD Status: DEP AMB Study: HIP, UNI W/ Pelvis 2-3 Views Date of Exam: Exam# [id number] Ordering Dr: Alvin Steele DO PROCEDURE: HIP, [...] fracture or dislocation is seen. Reading Location: [facility] CC: Dr. Alvin Steele DO; Dr. Moon Rayo MD Warehouse Stock Clerk: Signed Normal [facility] Orthopedic Visit Reporton Orthopedic Visit Report [facility] [address] [place] [address] OFFICE VISIT Date of Service: 05/24/25 MR#: [id number] Acct: [id number] Name: VANESSA HERNANDEZ Rep #: [id number] : 1945 Provider: Dr. Alvin goldsmith DO Age/Sex: 80/F Location: [facility] Status: Signed Intake Vital Signs 04/18/25 09:54 [...] cancer H (more content not included)... Normal [facility]-2025 MR/BMS.B [facility] [address] [place] [address] OFFICE VISIT Date of Service: 04/18/25 MR#: [id number] Acct: [id number] Name: VANESSA HERNANDEZ Rep #: [id number] : 1945 Provider: Dr. Moon de la cruz MD Age/Sex: 79/F Location: [facility] Status: Signed Intake Vital Signs 02/21/25 [...] Reasons: Headaches Chief Complaint: Headaches, neck pain Director Of Student Financial Services Required: No Accompanied by: Self Is patient [...] you fallen in the past year?: No [facility] Medical History (Updated 04/22/25 @ 07:51 by [...] joint repla (more content not included)... Normal [facility] MR/BMS.IMBon 02-21-2025 MR/BMS.IMB [facility] [address] [place] [address] OFFICE VISIT Date of Service: 02/21/25 MR#: [id number] Acct: [id number] Name: VANESSA HERNANDEZ Rep #: [id number] : 1945 Provider: Dr. Moon de la cruz MD Age/Sex: 79/F Location: [facility] Status: Signed Intake Vital Signs 02/18/25 [...] Reasons: Leg FU Chief Complaint: Leg FU Director Of Student Financial Services Required: No Accompanied by: Self Is patient [...] @ 0 (more content not included)... Normal [facility] /René 02-18-2025 MR/SIMONE.CARYN [facility] [address] [place] [address] OFFICE VISIT Date of Service: 02/18/25 MR#: [id number] Acct: [id number] Name: VANESSA HERNANDEZ Rep #: [id number] : 1945 Provider: Dr. Moon de la cruz MD Age/Sex: 79/F Location: [facility] Status: Signed Intake Vital Signs 09/03/24 09:55 [...] Reasons: Possible Cellulitus Chief Complaint: Possible cellulitis Director Of Student Financial Services Required: No Accompanied by: Self Is patient [...] you fallen in the past year?: No [facility] Medical History (Updated 02/18/25 @ 14:45 by [...] History of (more content not included)... Normal [facility] PT D/C Summary (1)on 025 PT D/C Summary (1) [facility] Physical Therapy [facility] [address] [place] [address] [address] [place] [address] / REHABILITATION SERVICES DISCHARGE SUMMARY MR#: [id number] Acct: [id number] Name: VANESSA HERNANDEZ Rep #: [id number] : 1945 79 From: Dulce Maria LOPEZ Referring Dr.: Dr. Moon Rayo MD Status: R EG RCR Insurance: [facility] [employer]Y [employer]URANCE Discharge [...] please feel free to call me at [phone]. Thank you for the referral of this patient. Sincerely, Dulce Maria Lance, JOHN Balance/Gait/Functiona l tests Balance/Special Test Scores Lower Extremity Functional Score: 44 Improvement % Improvement: 90 01/28/25 0958 CC: Dr. Moon Rayo MD Signed Normal [facility] Inital Evaluation (1) - PTon 12-19-2024 Inital Evaluation (1) - PT [facility] [address] [place] [address] / REHABILITATION SERVICES INITIAL EVALUATION MR#: [id number] Acct: [id number] Name: VANESSA HERNANDEZ Rep #: [id number] : 1945 79 From: Dulce Maria LOPEZ [...] and out of her home. She has alevism friends that take her to the grocery store. If she goes to [facility] then she will use a rolling cart. [...] Thank you (more content not included)... Normal [facility] MR/BMS.IMBon 09-03-2024 MR/BMS.IMB [facility] [address] [place] [address] OFFICE VISIT Date of Service: 09/03/24 MR#: [id number] Acct: [id number] Name: VANESSA HERNANDEZ Rep #: [id number] : 1945 Provider: Dr. Moon de la cruz MD Age/Sex: 79/F Location: [facility] Status: Signed Intake Vital Signs 08/26/24 [...] Delivery Method room air Intake Visit Reasons: [facility] ER FU Chief Complaint: [facility] ER FU Director Of Student Financial Services Required: No Accompanied by: Friend Is patient [...] Hypertension Ca (more content not included)... Normal [facility] Urine Cultureon 08-28-2024 [facility] Mixed Gram Positive Organisms [place] Count 25,000-50,000 MIXC Mixed contaminants. Submit a new specimen if indicated. Normal [facility] Comment on above: Performed By: #### L 500.4050, L100.0100 #### [facility] [address] [place], [place], [id number] Basic Metabolic Profile (BMP )on 08-26-2024 BUN/CRE 33.6 RATIO High 10-20 [facility] Comment on above: Performed By: #### L 100.0100, L500.2500 #### [facility] [address] [place], [address] CA,Total 9.0 mg/dL Normal 8.5-10.1 [facility] Comment on above: Performed By: #### L 100.0100, L500.2500 #### [facility] [address] [place], [address] Chloride [Moles/Vol] 107 mmol/L Normal 98-107 [facility] Comment on above: Performed By: #### L 100.0100, L500.2500 #### [facility] [address] [place], [address] CO2 [Moles/Vol] 27.0 mmol/L Normal 21.0-32.0 [facility] Comment on above: Performed By: #### L 100.0100, L500.2500 #### [facility] [address] [place], [address] Creatinine [Mass/Vol] 0.65 mg/dL Normal 0.55-1.02 [facility] Comment on above: Result Comment: The validity of the calculated GFR GFRAA in patients over 70 years has not been determined. Clinical correlation is essential. Performed By: #### L 100.0100, L500.2500 #### [facility] [address] [place], [address] ECRCL 66.79 ml/min Normal [facility] Comment on above: Performed By: #### L 100.0100, L500.2500 #### [facility] [address] [place], [address] EST GFR - AA 112 mL/min Normal >60 [facility] Comment on above: Result Comment: Afri can Japanese GFR Calc Performed By: #### L 100.0100, L500.2500 #### [facility] [address] [place], [address] GAP 8 Normal 5-15 [facility] Comment on above: Performed By: #### L 100.0100, L500.2500 #### [facility] [address] [place], [address] GFR/1.73 sq M.predicted among non-blacks MDRD (S/P/Bld) [Vol rate/Area] 93 mL/min/{1.73_m2} Normal >60 [facility] Comment on above: Result Comment: Non- GFR Calc Performed By: #### L 100.0100, L500.2500 #### [facility] [address] [place], [address] Glucose [Mass/Vol] 94 mg/dL Normal 74-106 [facility] Comment on above: Performed By: #### L 100.0100, L500.2500 #### [facility] [address] [place], [address] Potassium [Moles/Vol] 3.8 mmol/L Normal 3.5-5.1 [facility] Comment on above: Performed By: #### L 100.0100, L500.2500 #### [facility] [address] [place], [address] Sodium [Moles/Vol] 141 mmol/L Normal 136-145 [facility] Comment on above: Performed By: #### L 100.0100, L500.2500 #### [facility] [address] [place], [address] Urea nitrogen [Mass/Vol] 22 mg/dL High 7-18 [facility] Comment on above: Performed By: #### L 100.0100, L500.2500 #### [facility] [address] [place], [address] Brain/Head without Contrasto n 08-26-2024 Brain/Head without Contrast [facility] Imaging Services [address] [place] [address] Brain/Head without Contrast MR#: [id number] Acct: [id number] Name: VANESSA HERNANDEZ Rep #: [id number] : 1945 F 79 From: Tay Cuellar MD PCP: Dr. Moon Rayo MD Status: REG ER Study: Brain/Head without Contrast Date of Exam: 09/18 Exam# [id number] Ordering Dr: Abhay Barrios DO EXAM: BRAIN/HEAD [...] evidence of acute intracranial pathology. Reading Location: [facility] CC: Dr. Abhay Barrios DO; Dr. Moon Rayo MD Warehouse Stock Clerk: Signed Normal [facility] CBC W/Diff, Automatedon Absolute Lymph 1.96 X10 3/uL Normal 0.83-4.51 [facility] Comment on above: Performed By: #### L 100.0100, L500.2500 #### [facility] [address] [place], [address] Absolute Neut 9.0 X10 3/uL High 2.0-7.7 [facility] Comment on above: Performed By: #### L 100.0100, L500.2500 #### [facility] [address] [place], [address] Basophils/100 WBC (Bld) 0.5 % Normal 0-1 [facility] Comment on above: Performed By: #### L 100.0100, L500.2500 #### [facility] [address] [place], [address] Eosinophils/100 WBC (Bld) 0.9 % Normal 0-5 [facility] Comment on above: Performed By: #### L 100.0100, L500.2500 #### [facility] [address] [place], [address] Erythrocyte distribution width (RBC) [Ratio] 19.6 % High 11.6-14.6 [facility] Comment on above: Performed By: #### L 100.0100, L500.2500 #### [facility] [address] [place], [address] Hematocrit (Bld) [Volume fraction] 38.8 % Normal 37-47 [facility] Comment on above: Performed By: #### L 100.0100, L500.2500 #### [facility] [address] [place], [address] Hemoglobin (Bld) [Mass/Vol] 11.7 g/dL Low 12.0-15.0 [facility] Comment on above: Performed By: #### L 100.0100, L500.2500 #### [facility] [address] [place], [address] IG% 0.700 Normal 0.0-0.9 [facility] Comment on above: Result Comment: IG% - Immature Granulocytes (promyelocytes, myelocytes and metamyelocytes) > 1% indicates that a LEFT SHIFT is Present. Performed By: #### L 100.0100, L500.2500 #### [facility] [address] [place], [address] Lymphocytes/100 WBC (Bld) 15.6 % Low 19-41 [facility] Comment on above: Performed By: #### L 100.0100, L500.2500 #### [facility] [address] [place], [address] MCH (RBC) [Entitic mass] 24.7 pg Low 27.0-32.0 [facility] Comment on above: Performed By: #### L 100.0100, L500.2500 #### [facility] [address] [place], [address] MCHC (RBC) [Mass/Vol] 30.2 g/dL Low 32-36 [facility] Comment on above: Performed By: #### L 100.0100, L500.2500 #### [facility] [address] [place], [address] MCV (RBC) [Entitic vol] 82.0 fL Normal 81-99 [facility] Comment on above: Performed By: #### L 100.0100, L500.2500 #### [facility] [address] [place], [address] Monocytes/100 WBC (Bld) 10.7 % High 0-10 [facility] Comment on above: Performed By: #### L 100.0100, L500.2500 #### [facility] [address] [place], [address] Neutrophils/100 WBC (Bld) 71.6 % High 47-70 [facility] Comment on above: Performed By: #### L 100.0100, L500.2500 #### [facility] [address] [place], [address] Nucleated RBC (Bld) [#/Vol] 0 10*3/uL Normal 0-5 [facility] Comment on above: Performed By: #### L 100.0100, L500.2500 #### [facility] [address] [place], [address] Platelet mean volume (Bld) [Entitic vol] 9.5 fL Normal 6.2-12.0 [facility] Comment on above: Performed By: #### L 100.0100, L500.2500 #### [facility] [address] [place], [address] Platelets (Bld) [#/Vol] 260 10*3/uL Normal 150-450 [facility] Comment on above: Performed By: #### L 100.0100, L500.2500 #### [facility] [address] [place], [address] RBC (Bld) [#/Vol] 4.73 10*6/uL Normal 4.2-5.4 [facility] Comment on above: Performed By: #### L 100.0100, L500.2500 #### [facility] [address] [place], [address] RDW SD 58.7 fl High 35.1-43.9 [facility] Comment on above: Performed By: #### L 100.0100, L500.2500 #### [facility] [address] [place], [address] WBC (Bld) [#/Vol] 12.5 10*3/uL High 4.4-11.0 [facility] Comment on above: Performed By: #### L 100.0100, L500.2500 #### [facility] [address] [place], [address] Emergency Department Summary on 08-26-2024 Emergency Department Summary [facility] Medical Records Department [address] [place] [address] Emergency Department Summary 08/26/24 MR#: [id number] Acct: [id number] Name: VANESSA HERNANDEZ Nitza Rep #: [id number] : 1945 79 From: Abhay Barrios DO [...] states that she was getting up for alevism when she rolled out of bed. States [...] 15 Psych: Cooperative, appropriate mood and affect [facility] Medical History Urinary incontinence Right hip pain [...] M) ondansetron (more content not included)... Normal [facility] Spine Cervical without Contr ason 08-26-2024 Spine Cervical without Contras [facility] Imaging Services [address] [place] [address] Spine Cervical without Contras MR#: [id number] Acct: [id number] Name: VANESSA HERNANDEZ Rep #: [id number] : 1945 F 79 From: Tay Cuellar MD PCP: Dr. Moon Rayo MD Status: REG ER Study: Spine Cervical without Contras Date of Exam: 0 08/26/24 Exam# [id number] Ordering Dr: Abhay Barrios DO PROCEDURE: SPINE [...] use of iterative reconstruction technique). [facility] CC: Dr. Abhay Barrios DO; Dr. Moon Rayo MD Warehouse Stock Clerk: Signed Normal [facility] Urinalysis, Completeon 08-26 BACTERIA 1+ /hpf Normal None Seen [facility] Comment on above: Order Comment: COLLE CTOR TO SPECIFY Performed By: #### L 400.0001 #### [facility] [address] [facility] [place], [address] CA OX CRYSTAL 1+ /hpf Normal [facility] Comment on above: Order Comment: FREEMAN CTOR TO SPECIFY Performed By: #### L 400.0001 #### [facility] [address] [place], [address] EPI,SQUAMOUS 0-5 SEEN Normal 5-10 [facility] Comment on above: Order Comment: FREEMAN CTOR TO SPECIFY Performed By: #### L 400.0001 #### [facility] [address] [place], [address] RBC 0-5 SEEN Normal 0-5 [facility] Comment on above: Order Comment: FREEMAN CTOR TO SPECIFY Performed By: #### L 400.0001 #### [facility] [address] [place], [address] WBC 5-10 SEEN Normal 0-5 [facility] Comment on above: Order Comment: FREEMAN CTOR TO SPECIFY Performed By: #### L 400.0001 #### [facility] [address] [place], [address] Mucus Ql (Urine sed) 0 SEEN Normal [facility] Comment on above: Order Comment: FREEMAN CTOR TO SPECIFY Performed By: #### L 400.0001 #### [facility] [address] [place], [address] CBC W/Diff, Automatedon 12-2 PLT MORPH GIANT Normal [facility] Comment on above: Performed By: #### L 500.4050, L100.0100 #### [facility] [address] [place], [address] Anisocytosis Ql (Bld) 1+ Normal [facility] Comment on above: Performed By: #### L 500.4050, L100.0100 #### [facility] [address] [place], [address] ATYPICAL LYMPH RARE Normal [facility] Comment on above: Performed By: #### L 500.4050, L100.0100 #### [facility] [address] [place], [address] OVALOCYTE RARE Normal [facility] Comment on above: Performed By: #### L 500.4050, L100.0100 #### [facility] [address] [place], [address] Comprehensive Metabolic Prof ilon 07-14-2024 Albumin [Mass/Vol] 4.0 g/dL Normal 3.2-5.0 [facility] Comment on above: Performed By: #### L 500.4050, L100.0100 #### [facility] [address] [place], [address] Albumin/Globulin [Mass ratio] 1.0 {ratio} Normal 0.9-2.4 [facility] Comment on above: Performed By: #### L 500.4050, L100.0100 #### [facility] [address] [place], [address] ALK P 99 U/L Normal 45-117 [facility] Comment on above: Performed By: #### L 500.4050, L100.0100 #### [facility] [address] [place], [address] ALT [Catalytic activity/Vol] 81 U/L High 13-56 [facility] Comment on above: Performed By: #### L 500.4050, L100.0100 #### [facility] [address] [place], [address] AST [Catalytic activity/Vol] 97 U/L High 15-37 [facility] Comment on above: Performed By: #### L 500.4050, L100.0100 #### [facility] [address] [place], [address] Bilirubin [Mass/Vol] 0.50 mg/dL Normal 0.20-1.00 [facility] Comment on above: Result Comment: For patients on eltrombopag therapy, use of Dimension [place] TBIL is not recommended. Performed By: #### L 500.4050, L100.0100 #### [facility] [address] [place], [address] BUN/CRE 13.8 RATIO Normal 10-20 [facility] Comment on above: Performed By: #### L 500.4050, L100.0100 #### [facility] [address] [place], [address] CA,Total 9.8 mg/dL Normal 8.5-10.1 [facility] Comment on above: Performed By: #### L 500.4050, L100.0100 #### [facility] [address] [place], [address] Chloride [Moles/Vol] 103 mmol/L Normal 98-107 [facility] Comment on above: Performed By: #### L 500.4050, L100.0100 #### [facility] [address] [place], [address] CO2 [Moles/Vol] 28.0 mmol/L Normal 21.0-32.0 [facility] Comment on above: Performed By: #### L 500.4050, L100.0100 #### [facility] [address] [place], [address] Creatinine [Mass/Vol] 0.73 mg/dL Normal 0.55-1.02 [facility] Comment on above: Result Comment: The validity of the calculated GFR GFRAA in patients over 70 years has not been determined. Clinical correlation is essential. Performed By: #### L 500.4050, L100.0100 #### [facility] [address] [place], [address] ECRCL 56.19 ml/min Normal [facility] Comment on above: Performed By: #### L 500.4050, L100.0100 #### [facility] [address] [place], [address] EST GFR - AA 100 mL/min Normal >60 [facility] Comment on above: Result Comment: Afri can Japanese GFR Calc Performed By: #### L 500.4050, L100.0100 #### [facility] [address] [place], [address] GAP 8 Normal 5-15 [facility] Comment on above: Performed By: #### L 500.4050, L100.0100 #### [facility] [address] [place], [address] GFR/1.73 sq M.predicted among non-blacks MDRD (S/P/Bld) [Vol rate/Area] 82 mL/min/{1.73_m2} Normal >60 [facility] Comment on above: Result Comment: Non- GFR Calc Performed By: #### L 500.4050, L100.0100 #### [facility] [address] [place], [address] Globulin (S) [Mass/Vol] 4.1 g/dL Normal 2.2-4.2 [facility] Comment on above: Performed By: #### L 500.4050, L100.0100 #### [facility] [address] [place], [address] Glucose [Mass/Vol] 106 mg/dL Normal 74-106 [facility] Comment on above: Result Comment: Fast ing Glucose result from 100 to 125 mg/dL suggests IMPAIRED HOMEOSTASIS per A.D.A. criteria. Performed By: #### L 500.4050, L100.0100 #### [facility] [address] [place], [address] Potassium [Moles/Vol] 3.0 mmol/L Low 3.5-5.1 [facility] Comment on above: Performed By: #### L 500.4050, L100.0100 #### [facility] [address] [place], [address] Sodium [Moles/Vol] 138 mmol/L Normal 136-145 [facility] Comment on above: Performed By: #### L 500.4050, L100.0100 #### [facility] [address] [place], [address] T PROT 8.1 g/dL Normal 6.4-8.2 [facility] Comment on above: Performed By: #### L 500.4050, L100.0100 #### [facility] [address] [place], [address] Urea nitrogen [Mass/Vol] 10 mg/dL Normal 7-18 [facility] Comment on above: Performed By: #### L 500.4050, L100.0100 #### [facility] [address] [place], [address] Emergency Department Summary on 07-14-2024 Emergency Department Summary [facility] Medical Records Department [address] [place] [address] Emergency Department Summary 07/14/24 MR#: [id number] Acct: [id number] Name: VANESSA HERNANDEZ Nitza Rep #: [id number] : 1945 79 From: Jose Antonio Marte [...] History Hist (more content not included)... Normal [facility] CBC W/Diff, Automatedon 11-0 -2023 Absolute Lymph 1.81 X10 3/uL Normal 0.83-4.51 [facility] Comment on above: Performed By: #### L 503.6030, L501.9520, L503.0105, L500.4100, L501.5200, L506.1000, L500.4050, L100.0100 #### [facility] [address] [place], [address] Absolute Neut 7.8 X10 3/uL High 2.0-7.7 [facility] Comment on above: Performed By: #### L 503.6030, L501.9520, L503.0105, L500.4100, L501.5200, L506.1000, L500.4050, L100.0100 #### [facility] [address] [place], [address] Basophils/100 WBC (Bld) 0.2 % Normal 0-1 [facility] Comment on above: Performed By: #### L 503.6030, L501.9520, L503.0105, L500.4100, L501.5200, L506.1000, L500.4050, L100.0100 #### [facility] [address] [place], [address] Eosinophils/100 WBC (Bld) 1.7 % Normal 0-5 [facility] Comment on above: Performed By: #### L 503.6030, L501.9520, L503.0105, L500.4100, L501.5200, L506.1000, L500.4050, L100.0100 #### [facility] [address] [place], [address] Erythrocyte distribution width (RBC) [Ratio] 19.0 % High 11.6-14.6 [facility] Comment on above: Performed By: #### L 503.6030, L501.9520, L503.0105, L500.4100, L501.5200, L506.1000, L500.4050, L100.0100 #### [facility] [address] [place], [address] Hematocrit (Bld) [Volume fraction] 37.5 % Normal 37-47 [facility] Comment on above: Performed By: #### L 503.6030, L501.9520, L503.0105, L500.4100, L501.5200, L506.1000, L500.4050, L100.0100 #### [facility] [address] [place], [address] Hemoglobin (Bld) [Mass/Vol] 10.8 g/dL Low 12.0-15.0 [facility] Comment on above: Performed By: #### L 503.6030, L501.9520, L503.0105, L500.4100, L501.5200, L506.1000, L500.4050, L100.0100 #### [facility] [address] [facility] [place], [address] IG% 0.600 Normal 0.0-0.9 [facility] Comment on above: Result Comment: IG% - Immature Granulocytes (promyelocytes, myelocytes and metamyelocytes) > 1% indicates that a LEFT SHIFT is Present. Performed By: #### L 503.6030, L501.9520, L503.0105, L500.4100, L501.5200, L506.1000, L500.4050, L100.0100 #### [facility] [address] [place], [address] Lymphocytes/100 WBC (Bld) 16.4 % Low 19-41 [facility] Comment on above: Performed By: #### L 503.6030, L501.9520, L503.0105, L500.4100, L501.5200, L506.1000, L500.4050, L100.0100 #### [facility] [address] [facility] [place], [address] MCH (RBC) [Entitic mass] 22.6 pg Low 27.0-32.0 [facility] Comment on above: Performed By: #### L 503.6030, L501.9520, L503.0105, L500.4100, L501.5200, L506.1000, L500.4050, L100.0100 #### [facility] [address] [place], [address] MCHC (RBC) [Mass/Vol] 28.8 g/dL Low 32-36 [facility] Comment on above: Performed By: #### L 503.6030, L501.9520, L503.0105, L500.4100, L501.5200, L506.1000, L500.4050, L100.0100 #### [facility] [address] [place], [address] MCV (RBC) [Entitic vol] 78.6 fL Low 81-99 [facility] Comment on above: Performed By: #### L 503.6030, L501.9520, L503.0105, L500.4100, L501.5200, L506.1000, L500.4050, L100.0100 #### [facility] [address] [place], [address] Monocytes/100 WBC (Bld) 10.3 % High 0-10 [facility] Comment on above: Performed By: #### L 503.6030, L501.9520, L503.0105, L500.4100, L501.5200, L506.1000, L500.4050, L100.0100 #### [facility] [address] [place], [address] Neutrophils/100 WBC (Bld) 70.8 % High 47-70 [facility] Comment on above: Performed By: #### L 503.6030, L501.9520, L503.0105, L500.4100, L501.5200, L506.1000, L500.4050, L100.0100 #### [facility] [address] [place], [address] Nucleated RBC (Bld) [#/Vol] 0 10*3/uL Normal 0-5 [facility] Comment on above: Performed By: #### L 503.6030, L501.9520, L503.0105, L500.4100, L501.5200, L506.1000, L500.4050, L100.0100 #### [facility] [address] [place], [address] Platelet mean volume (Bld) [Entitic vol] 9.7 fL Normal 6.2-12.0 [facility] Comment on above: Performed By: #### L 503.6030, L501.9520, L503.0105, L500.4100, L501.5200, L506.1000, L500.4050, L100.0100 #### [facility] [address] [place], [address] Platelets (Bld) [#/Vol] 322 10*3/uL Normal 150-450 [facility] Comment on above: Performed By: #### L 503.6030, L501.9520, L503.0105, L500.4100, L501.5200, L506.1000, L500.4050, L100.0100 #### [facility] [address] [place], [address] RBC (Bld) [#/Vol] 4.77 10*6/uL Normal 4.2-5.4 [facility] Comment on above: Performed By: #### L 503.6030, L501.9520, L503.0105, L500.4100, L501.5200, L506.1000, L500.4050, L100.0100 #### [facility] [address] [place], [address] RDW SD 53.4 fl High 35.1-43.9 [facility] Comment on above: Performed By: #### L 503.6030, L501.9520, L503.0105, L500.4100, L501.5200, L506.1000, L500.4050, L100.0100 #### [facility] [address] [place], [place], [id number] (022) WBC (Bld) [#/Vol] 11.1 10*3/uL High 4.4-11.0 [facility] Comment on above: Performed By: #### L 503.6030, L501.9520, L503.0105, L500.4100, L501.5200, L506.1000, L500.4050, L100.0100 #### [facility] [address] [place], [place], [id number] Comprehensive Metabolic Prof ilon 05-28-2024 Albumin [Mass/Vol] 3.5 g/dL Normal 3.2-5.0 [facility] Comment on above: Performed By: #### L 503.6030, L501.9520, L503.0105, L500.4100, L501.5200, L506.1000, L500.4050, L100.0100 #### [facility] [address] [place], [address] Albumin/Globulin [Mass ratio] 0.9 {ratio} Normal 0.9-2.4 [facility] Comment on above: Performed By: #### L 503.6030, L501.9520, L503.0105, L500.4100, L501.5200, L506.1000, L500.4050, L100.0100 #### [facility] [address] [place], [address] ALK P 115 U/L Normal 45-117 [facility] Comment on above: Performed By: #### L 503.6030, L501.9520, L503.0105, L500.4100, L501.5200, L506.1000, L500.4050, L100.0100 #### [facility] [address] [place], [address] ALT [Catalytic activity/Vol] 46 U/L Normal 13-56 [facility] Comment on above: Performed By: #### L 503.6030, L501.9520, L503.0105, L500.4100, L501.5200, L506.1000, L500.4050, L100.0100 #### [facility] [address] [place], [address] AST [Catalytic activity/Vol] 37 U/L Normal 15-37 [facility] Comment on above: Performed By: #### L 503.6030, L501.9520, L503.0105, L500.4100, L501.5200, L506.1000, L500.4050, L100.0100 #### [facility] [address] [place], [address] Bilirubin [Mass/Vol] 0.30 mg/dL Normal 0.20-1.00 [facility] Comment on above: Result Comment: For patients on eltrombopag therapy, use of Dimension [place] TBIL is not recommended. Performed By: #### L 503.6030, L501.9520, L503.0105, L500.4100, L501.5200, L506.1000, L500.4050, L100.0100 #### [facility] [address] [place], [address] BUN/CRE 27.8 RATIO High 10-20 [facility] Comment on above: Performed By: #### L 503.6030, L501.9520, L503.0105, L500.4100, L501.5200, L506.1000, L500.4050, L100.0100 #### [facility] [address] [place], [address] CA,Total 9.1 mg/dL Normal 8.5-10.1 [facility] Comment on above: Performed By: #### L 503.6030, L501.9520, L503.0105, L500.4100, L501.5200, L506.1000, L500.4050, L100.0100 #### [facility] [address] [place], [address] Chloride [Moles/Vol] 107 mmol/L Normal 98-107 [facility] Comment on above: Performed By: #### L 503.6030, L501.9520, L503.0105, L500.4100, L501.5200, L506.1000, L500.4050, L100.0100 #### [facility] [address] [place], [address] CO2 [Moles/Vol] 26.0 mmol/L Normal 21.0-32.0 [facility] Comment on above: Performed By: #### L 503.6030, L501.9520, L503.0105, L500.4100, L501.5200, L506.1000, L500.4050, L100.0100 #### [facility] [address] [place], [address] Creatinine [Mass/Vol] 0.68 mg/dL Normal 0.55-1.02 [facility] Comment on above: Result Comment: The validity of the calculated GFR GFRAA in patients over 70 years has not been determined. Clinical correlation is essential. Performed By: #### L 503.6030, L501.9520, L503.0105, L500.4100, L501.5200, L506.1000, L500.4050, L100.0100 #### [facility] [address] [place], [address] EST GFR - AA 107 mL/min Normal >60 [facility] Comment on above: Result Comment: Afri can Japanese GFR Calc Performed By: #### L 503.6030, L501.9520, L503.0105, L500.4100, L501.5200, L506.1000, L500.4050, L100.0100 #### [facility] [address] [place], [address] GAP 8 Normal 5-15 [facility] Comment on above: Performed By: #### L 503.6030, L501.9520, L503.0105, L500.4100, L501.5200, L506.1000, L500.4050, L100.0100 #### [facility] [address] [place], [address] GFR/1.73 sq M.predicted among non-blacks MDRD (S/P/Bld) [Vol rate/Area] 88 mL/min/{1.73_m2} Normal >60 [facility] Comment on above: Result Comment: Non- GFR Calc Performed By: #### L 503.6030, L501.9520, L503.0105, L500.4100, L501.5200, L506.1000, L500.4050, L100.0100 #### [facility] [address] [place], [address] Globulin (S) [Mass/Vol] 3.8 g/dL Normal 2.2-4.2 [facility] Comment on above: Performed By: #### L 503.6030, L501.9520, L503.0105, L500.4100, L501.5200, L506.1000, L500.4050, L100.0100 #### [facility] [address] [place], [address] Glucose [Mass/Vol] 112 mg/dL High 74-106 [facility] Comment on above: Result Comment: Fast ing Glucose result from 100 to 125 mg/dL suggests IMPAIRED HOMEOSTASIS per A.D.A. criteria. Performed By: #### L 503.6030, L501.9520, L503.0105, L500.4100, L501.5200, L506.1000, L500.4050, L100.0100 #### [facility] [address] [place], [address] Potassium [Moles/Vol] 3.7 mmol/L Normal 3.5-5.1 [facility] Comment on above: Performed By: #### L 503.6030, L501.9520, L503.0105, L500.4100, L501.5200, L506.1000, L500.4050, L100.0100 #### [facility] [address] [place], [address] Sodium [Moles/Vol] 142 mmol/L Normal 136-145 [facility] Comment on above: Performed By: #### L 503.6030, L501.9520, L503.0105, L500.4100, L501.5200, L506.1000, L500.4050, L100.0100 #### [facility] [address] [place], [address] T PROT 7.3 g/dL Normal 6.4-8.2 [facility] Comment on above: Performed By: #### L 503.6030, L501.9520, L503.0105, L500.4100, L501.5200, L506.1000, L500.4050, L100.0100 #### [facility] [address] [place], [address] Urea nitrogen [Mass/Vol] 19 mg/dL High 7-18 [facility] Comment on above: Performed By: #### L 503.6030, L501.9520, L503.0105, L500.4100, L501.5200, L506.1000, L500.4050, L100.0100 #### [facility] [address] [place], [address] Iron+Iron Binding Capacityon 05-28-2024 Iron [Mass/Vol] 22 ug/dL Low 50-170 [facility] Comment on above: Performed By: #### L 500.4050, L100.0100 #### [facility] [address] [place], [address] IRON SATURATION 4.9 Low 15.0-55.0 [facility] Comment on above: Performed By: #### L 500.4050, L100.0100 #### [facility] [address] [place], [address] TIBC 449 ug/dL Normal 250-450 [facility] Comment on above: Performed By: #### L 500.4050, L100.0100 #### [facility] [address] [place], [address] Lipid Profileon 05-28-2024 Cholesterol [Mass/Vol] 144 mg/dL Normal 200 [facility] Comment on above: Result Comment: <200 mg/dL Desirable 200-240 mg/dL Borderline >240 mg/dL High Risk Performed By: #### L 500.4050, L100.0100 #### [facility] [address] [place], [address] Cholesterol in HDL [Mass/Vol] 57 mg/dL Normal [facility] Comment on above: Result Comment: The drugs N-Acetylcysteine and Metamizole may falsely depress this assay. Reference Range HDL <40 mg/dL Low HDL Cholesterol HDL >or= 60 mg/dL High HDL Cholesterol Performed By: #### L 500.4050, L100.0100 #### [facility] [address] [place], [address] Cholesterol in LDL [Mass/Vol] 59 mg/dL Normal 0-130 [facility] Comment on above: Performed By: #### L 500.4050, L100.0100 #### [facility] [address] [place], [address] Cholesterol in VLDL [Mass/Vol] 28 mg/dL Normal 5-40 [facility] Comment on above: Performed By: #### L 500.4050, L100.0100 #### [facility] [address] [place], [address] Triglyceride [Mass/Vol] 140 mg/dL Normal [facility] Comment on above: Result Comment: The drugs N-Acetylcysteine and Metamizole may falsely depress this assay. Serum Triglycerides Reference Interval Normal <150 mg/dL Borderline high 150 - 199 mg/dL High 200 - 499 mg/dL Very High > or = 500 mg/dL Performed By: #### L 500.4050, L100.0100 #### [facility] [address] [place], [address] Magnesiumon 05-28-2024 Magnesium [Mass/Vol] 2.3 mg/dL Normal 1.6-2.6 [facility] Comment on above: Performed By: #### L 500.4050, L100.0100 #### [facility] [address] [place], [address] Thyroid Stim Hormone (TSH)on 05-28-2024 TSH 2.770 uIU/mL Normal 0.358-3.740 [facility] Comment on above: Performed By: #### L 500.4050, L100.0100 #### [facility] [address] [place], [address] Vitamin B12on 05-28-2024 Cobalamin (Vitamin B12) [Mass/Vol] 293 pg/mL Normal 211-911 [facility] Comment on above: Performed By: #### L 503.6030, L501.9520, L503.0105, L500.4100, L501.5200, L506.1000, L500.4050, L100.0100 #### [facility] [address] [place], [address] Vitamin D,25 Hydroxyon 05-28 Vitamin D 25-OH 13.1 ng/mL Normal [facility] Comment on above: Result Comment: Livia min D 25(OH) Status Range Deficiency <20 ng/mL (50nmol/L) Insufficiency 20 - 30 ng/mL (50 - 75 nmol/L) Sufficiency 30 - 100 ng/mL (75 - 250 nmol/L) Toxicity >100 ng/mL (>250 nmol/L) Performed By: #### L 503.6030, L501.9520, L503.0105, L500.4100, L501.5200, L506.1000, L500.4050, L100.0100 #### [facility] [address] [place], [address] ESRon 10-25-2023 Erythrocyte Sed Rate 72 mm/hr High 0-30 [facility] ([place]) Comment on above: Performed By: #### E SR #### [address] [address] LABORATORYOrdered By: Chito Rao on 10-25-2023 ESR Photometric method (Bld) [Velocity] 72 mm/hr High 0 - 30 mm/hr AO Man Heme SS Absolute lymphocyte countOrd ered By: Moon Rayo on 10-24-2023 Lymphocytes Auto (Unsp spec) [#/Vol] 1.62 10*3/uL 0.83-4.51 [facility] Automated lymphocyte count a s percentage of total leukocytesOrdered By: Moon Rayo on 10-24-2023 Lymphocytes/100 WBC Auto (Unsp spec) 12.4 % 19-41 [facility] Basophil percentageOrdered B y: Moon Rayo on 10-24-2023 Basophil percentage 11.3 g/dL 12.0-15.0 [facility] Basophil percentage 86 mg/dL 74-106 [facility] Basophil percentage 138 mmol/L 136-145 [facility] Basophil percentage 3.4 mmol/L 3.5-5.1 [facility] Basophil percentage 104 mmol/L 98-107 [facility] Basophils (Bld) [#/Vol] 13.1 10*3/uL 4.4-11.0 [facility] Basophils (Bld) [#/Vol] 9.8 10*3/uL 2.0-7.7 [facility] Basophils/100 WBC (Bld) 74.4 % 47-70 [facility] Basophils/100 WBC (Bld) 11.3 % 0-10 [facility] Basophils/100 WBC (Bld) 1.0 % 0-5 [facility] Basophils/100 WBC (Bld) 0.4 % 0-1 [facility] Determination of erythrocyte mean corpuscular volume (MCV)Ordered By: Moon Rayo on 10-24-2023 MCV (RBC) [Entitic vol] 78.1 fL 81-99 [facility] Erythrocyte distribution wid th ratioOrdered By: Moon Rayo on 10-24-2023 Erythrocyte distribution width (RBC) [Ratio] 19.1 % 11.6-14.6 [facility] Erythrocyte distribution wid th standard deviationOrdered By: Moon Rayo on 10-24-2023 Erythrocyte distribution width (RBC) [Entitic vol] 53.7 fL 35.1-43.9 [facility] Erythrocyte sedimentation ra teOrdered By: Moon Rayo on 10-24-2023 ESR (Bld) [Velocity] 72 mm/h 0-30 [facility] Hematocrit Auto (Bld) [Volum e fraction]Ordered By: Moon Rayo on 10-24-2023 Hematocrit (Bld) [Volume fraction] 38.8 % 37-47 [facility] Immature granulocytes/100 WB C Auto (Bld)Ordered By: Moon Rayo on 10-24-2023 Immature granulocytes/100 WBC (Bld) 0.500 % 0.0-0.9 [facility] No Panel InformationOrdered By: Moon Rayo on 10-24-2023 22.7 pg 27.0-32.0 [facility] 29.1 g/dL 32-36 [facility] 319 K/mm3 150-450 [facility] 9.4 fl 6.2-12.0 [facility] 0 % 0-5 [facility] 74 mL/min >60 [facility] 90 mL/min >60 [facility] 13.9 RATIO 10-20 [facility] 28.0 mmol/L 21.0-32.0 [facility] 50.30 mg/L 0.0-3.0 [facility] RBC Auto (Bld) [#/Vol]Ordere d By: Moon Rayo on 10-24-2023 RBC (Bld) [#/Vol] 4.97 10*6/uL 4.2-5.4 [facility] Serum or plasma calcium gustavo urement (mass/volume)Ordered By: Moon Rayo on 10-24-2023 Calcium [Mass/Vol] 9.2 mg/dL 8.5-10.1 [facility] Serum or plasma creatinine m easurement (mass/volume)Ordered By: Moon Rayo on 10-24-2023 Creatinine [Mass/Vol] 0.79 mg/dL 0.55-1.02 [facility] Serum or plasma urea nitroge n measurement (mass/volume)Ordered By: Moon Rayo on 10-24-2023 Urea nitrogen [Mass/Vol] 11 mg/dL 7-18 [facility] Serum or plasma uric acid me asurement (mass/volume)Ordered By: Moon Rayo on 10-24-2023 Urate [Mass/Vol] 4.6 mg/dL 2.6-6.0 [facility] Thin prep Papanicolaou smear with manual screeningOrdered By: Moon Rayo on 10-24-2023 Thin prep Papanicolaou smear with manual screening 6 5-15 [facility] Basophil percentageOrdered B y: Bhavna Andino on 10-03-2023 Basophil percentage 9.9 g/dL 12.0-15.0 [facility] Basophil percentage 87 mg/dL 74-106 [facility] Basophil percentage 101 mg/dL <200 [facility] Basophil percentage 107 mg/dL <199 [facility] Basophil percentage 143 mmol/L 136-145 [facility] Basophil percentage 3.5 mmol/L 3.5-5.1 [facility] Basophil percentage 109 mmol/L 98-107 [facility] Basophils (Bld) [#/Vol] 7.8 10*3/uL 4.4-11.0 [facility] Determination of erythrocyte mean corpuscular volume (MCV)Ordered By: Bhavna Andino on 10-03-2023 MCV (RBC) [Entitic vol] 79.4 fL 81-99 [facility] Erythrocyte distribution wid th ratioOrdered By: Bhavna Andino on 10-03-2023 Erythrocyte distribution width (RBC) [Ratio] 18.6 % 11.6-14.6 [facility] Erythrocyte distribution wid th standard deviationOrdered By: Bhavna Andino on 10-03-2023 Erythrocyte distribution width (RBC) [Entitic vol] 53.4 fL 35.1-43.9 [facility] Hematocrit Auto (Bld) [Volum e fraction]Ordered By: Bhavna Andino on 10-03-2023 Hematocrit (Bld) [Volume fraction] 34.4 % 37-47 [facility] No Panel InformationOrdered By: Bhavna Andino on 10-03-2023 22.9 pg 27.0-32.0 [facility] 28.8 g/dL 32-36 [facility] 340 K/mm3 150-450 [facility] 9.0 fl 6.2-12.0 [facility] 85 mL/min >60 [facility] 103 mL/min >60 [facility] 15.6 RATIO 10-20 [facility] 2.1 mg/dL 1.6-2.6 [facility] 28.0 mmol/L 21.0-32.0 [facility] 33 mg/dL >40 [facility] 47 mg/dL 0-130 [facility] 21 mg/dL 5-40 [facility] RBC Auto (Bld) [#/Vol]Ordere d By: Bhavna Andino on 10-03-2023 RBC (Bld) [#/Vol] 4.33 10*6/uL 4.2-5.4 [facility] Serum or plasma calcium gustavo urement (mass/volume)Ordered By: Bhavna Andino on 10-03-2023 Calcium [Mass/Vol] 8.9 mg/dL 8.5-10.1 [facility] Serum or plasma creatinine m easurement (mass/volume)Ordered By: Bhavna Andino on 10-03-2023 Creatinine [Mass/Vol] 0.70 mg/dL 0.55-1.02 [facility] Serum or plasma urea nitroge n measurement (mass/volume)Ordered By: Bhavna Andino on 10-03-2023 Urea nitrogen [Mass/Vol] 11 mg/dL 7-18 [facility] Thin prep Papanicolaou smear with manual screeningOrdered By: Bhavna Andino on 10-03-2023 Thin prep Papanicolaou smear with manual screening 6 5-15 [facility] Absolute lymphocyte countOrd ered By: Bhavna Andino on 09-29-2023 Lymphocytes Auto (Unsp spec) [#/Vol] 1.67 10*3/uL 0.83-4.51 [facility] Automated lymphocyte count a s percentage of total leukocytesOrdered By: Bhavna Andino on 09-29-2023 Lymphocytes/100 WBC Auto (Unsp spec) 18.8 % 19-41 [facility] Basophil percentageOrdered B y: Bhavna Andino on 09-29-2023 Basophil percentage 9.9 g/dL 12.0-15.0 [facility] Basophil percentage 99 mg/dL 74-106 [facility] Basophil percentage 143 mmol/L 136-145 [facility] Basophil percentage 3.2 mmol/L 3.5-5.1 [facility] Basophil percentage 106 mmol/L 98-107 [facility] Basophils (Bld) [#/Vol] 8.9 10*3/uL 4.4-11.0 [facility] Basophils (Bld) [#/Vol] 6.0 10*3/uL 2.0-7.7 [facility] Basophils/100 WBC (Bld) 67.6 % 47-70 [facility] Basophils/100 WBC (Bld) 9.8 % 0-10 [facility] Basophils/100 WBC (Bld) 3.2 % 0-5 [facility] Basophils/100 WBC (Bld) 0.1 % 0-1 [facility] Determination of erythrocyte mean corpuscular volume (MCV)Ordered By: Bhavna Andino on 09-29-2023 MCV (RBC) [Entitic vol] 78.5 fL 81-99 [facility] Erythrocyte distribution wid th ratioOrdered By: Bhavna Andino on 09-29-2023 Erythrocyte distribution width (RBC) [Ratio] 18.5 % 11.6-14.6 [facility] Erythrocyte distribution wid th standard deviationOrdered By: Bhavna Andino on 09-29-2023 Erythrocyte distribution width (RBC) [Entitic vol] 52.2 fL 35.1-43.9 [facility] Hematocrit Auto (Bld) [Volum e fraction]Ordered By: Bhavna Andino on 09-29-2023 Hematocrit (Bld) [Volume fraction] 32.9 % 37-47 [facility] Immature granulocytes/100 WB C Auto (Bld)Ordered By: Bhavna Andino on 09-29-2023 Immature granulocytes/100 WBC (Bld) 0.500 % 0.0-0.9 [facility] No Panel InformationOrdered By: Bhavna Andino on 09-29-2023 23.6 pg 27.0-32.0 [facility] 30.1 g/dL 32-36 [facility] 302 K/mm3 150-450 [facility] 9.5 fl 6.2-12.0 [facility] 0 % 0-5 [facility] 83 mL/min >60 [facility] 101 mL/min >60 [facility] 20.8 RATIO 10-20 [facility] 2.1 mg/dL 1.6-2.6 [facility] 28.0 mmol/L 21.0-32.0 [facility] 198 pg/mL 211-911 [facility] 20.9 ng/mL [facility] RBC Auto (Bld) [#/Vol]Ordere d By: Bhavna Andino on 09-29-2023 RBC (Bld) [#/Vol] 4.19 10*6/uL 4.2-5.4 [facility] Serum or plasma calcium gustavo urement (mass/volume)Ordered By: Bhavna Andino on 09-29-2023 Calcium [Mass/Vol] 9.2 mg/dL 8.5-10.1 [facility] Serum or plasma creatinine m easurement (mass/volume)Ordered By: Bhavna Andino on 09-29-2023 Creatinine [Mass/Vol] 0.72 mg/dL 0.55-1.02 [facility] Serum or plasma urea nitroge n measurement (mass/volume)Ordered By: Bhavna Andino on 09-29-2023 Urea nitrogen [Mass/Vol] 15 mg/dL 7-18 [facility] Thin prep Papanicolaou smear with manual screeningOrdered By: Bhavna Andino on 09-29-2023 Thin prep Papanicolaou smear with manual screening 9 5-15 [facility] Whole blood hemoglobin A1c/t otal hemoglobin ratio (mass fraction)Ordered By: Bhavna Andino on 09-29-2023 HbA1c (Bld) [Mass fraction] 5.8 % 3.8-5.6 [facility] Absolute lymphocyte countOrd ered By: Mona Chery on 09-27-2023 Lymphocytes Auto (Unsp spec) [#/Vol] 2.00 10*3/uL 0.83-4.51 [facility] Automated lymphocyte count a s percentage of total leukocytesOrdered By: Mona Chery on 09-27-2023 Lymphocytes/100 WBC Auto (Unsp spec) 20.9 % 19-41 [facility] Basophil percentageOrdered B y: Mona Chery on 09-27-2023 Basophil percentage 10.0 g/dL 12.0-15.0 [facility] Basophil percentage 99 mg/dL 74-106 [facility] Basophil percentage 6.6 g/dL 6.4-8.2 [facility] Basophil percentage 3.4 mg/dL 2.5-4.9 [facility] Basophil percentage 0.60 mg/dL 0.20-1.00 [facility] Basophil percentage 116 mg/dL <200 [facility] Basophil percentage 108 mg/dL <199 [facility] Basophil percentage 138 mmol/L 136-145 [facility] Basophil percentage 3.5 mmol/L 3.5-5.1 [facility] Basophil percentage 105 mmol/L 98-107 [facility] Basophils (Bld) [#/Vol] 9.6 10*3/uL 4.4-11.0 [facility] Basophils (Bld) [#/Vol] 6.2 10*3/uL 2.0-7.7 [facility] Basophils/100 WBC (Bld) 64.8 % 47-70 [facility] Basophils/100 WBC (Bld) 9.8 % 0-10 [facility] Basophils/100 WBC (Bld) 3.8 % 0-5 [facility] Basophils/100 WBC (Bld) 0.3 % 0-1 [facility] Determination of erythrocyte mean corpuscular volume (MCV)Ordered By: Mona Chery on 09-27-2023 MCV (RBC) [Entitic vol] 77.8 fL 81-99 [facility] Erythrocyte distribution wid th ratioOrdered By: Mona Chery on 09-27-2023 Erythrocyte distribution width (RBC) [Ratio] 18.5 % 11.6-14.6 [facility] Erythrocyte distribution wid th standard deviationOrdered By: Mona Chery on 09-27-2023 Erythrocyte distribution width (RBC) [Entitic vol] 51.8 fL 35.1-43.9 [facility] Erythrocyte sedimentation ra teOrdered By: Mona Chery on 09-27-2023 ESR (Bld) [Velocity] 34 mm[facility] (Bld) [Volum e fraction]Ordered By: Mona Chery on 09-27-2023 Hematocrit (Bld) [Volume fraction] 33.9 % 37-47 [facility] Immature granulocytes/100 WB C Auto (Bld)Ordered By: Mona Chery on 09-27-2023 Immature granulocytes/100 WBC (Bld) 0.400 % 0.0-0.9 [facility] Iron measurement (mass/mass) Ordered By: Mona Chery on 09-27-2023 Iron (Unsp spec) [Mass/Mass] 25 ug/dL 50-170 [facility] No Panel InformationOrdered By: Mona Chery on 09-27-2023 22.9 pg 27.0-32.0 [facility] 29.5 g/dL 32-36 [facility] 291 K/mm3 150-450 [facility] 9.0 fl 6.2-12.0 [facility] 0 % 0-5 [facility] 79 mL/min >60 [facility] 95 mL/min >60 [facility] 67.98 ml/min [facility] 17.2 RATIO 10-20 [facility] 3.8 g/dL 2.2-4.2 [facility] 0.7 RATIO 0.9-2.4 [facility] 67 U/L 45-117 [facility] 21 U/L 13-56 [facility] 2.2 mg/dL 1.6-2.6 [facility] 30.0 mmol/L 21.0-32.0 [facility] 38 mg/dL >40 [facility] 56 mg/dL 0-130 [facility] 22 mg/dL 5-40 [facility] 56.70 mg/L 0.0-3.0 [facility] 342 ug/dL 250-450 [facility] 68 ng/mL 8-252 [facility] RBC Auto (Bld) [#/Vol]Ordere d By: Mona Chery on 09-27-2023 RBC (Bld) [#/Vol] 4.36 10*6/uL 4.2-5.4 [facility] Serum or plasma calcium gustavo urement (mass/volume)Ordered By: Mona Chery on 09-27-2023 Calcium [Mass/Vol] 9.2 mg/dL 8.5-10.1 [facility] Serum or plasma creatinine m easurement (mass/volume)Ordered By: Mona Chery on 09-27-2023 Creatinine [Mass/Vol] 0.75 mg/dL 0.55-1.02 [facility] Serum or plasma iron saturat ion measurement (mass fraction)Ordered By: Mona Chery on 09-27-2023 Iron saturation [Mass fraction] 7.3 % 15.0-55.0 [facility] Serum or plasma thyroid stim ulating hormone (TSH) measurement (units/volume)Ordered By: Mona Chery on 09-27-2023 TSH Qn 4.16 uIU/mL 0.358-3.74 [facility] Serum or plasma urea nitroge n measurement (mass/volume)Ordered By: Mona Chery on 09-27-2023 Urea nitrogen [Mass/Vol] 13 mg/dL 7-18 [facility] Thin prep Papanicolaou smear with manual screeningOrdered By: Mona Chery on 09-27-2023 Thin prep Papanicolaou smear with manual screening 2.8 g/dL 3.2-5.0 [facility] Thin prep Papanicolaou smear with manual screening 20 U/L 15-37 [facility] Thin prep Papanicolaou smear with manual screening 3 5-15 [facility] Whole blood hemoglobin A1c/t otal hemoglobin ratio (mass fraction)Ordered By: Mona Chery on 09-27-2023 HbA1c (Bld) [Mass fraction] 6.0 % 3.8-5.6 [facility] Absolute lymphocyte countOrd ered By: Joshua Santiago on 09-26-2023 Lymphocytes Auto (Unsp spec) [#/Vol] 1.66 10*3/uL 0.83-4.51 [facility] Activated partial thrombopla stin time (aPTT) in platelet poor plasma by coagulation aOrdered By: Joshua Santiago on 09-26-2023 aPTT Coag (PPP) [Time] 35.8 s 24.1-36.2 [facility] Automated lymphocyte count a s percentage of total leukocytesOrdered By: Joshua Santiago on 09-26-2023 Lymphocytes/100 WBC Auto (Unsp spec) 12.2 % 19-41 [facility] Basophil percentageOrdered B y: Joshua Santiago on 09-26-2023 Basophil percentage 11.3 g/dL 12.0-15.0 [facility] Basophil percentage 111 mg/dL 74-106 [facility] Basophil percentage 137 mmol/L 136-145 [facility] Basophil percentage 3.1 mmol/L 3.5-5.1 [facility] Basophil percentage 101 mmol/L 98-107 [facility] Basophils (Bld) [#/Vol] 13.6 10*3/uL 4.4-11.0 [facility] Basophils (Bld) [#/Vol] 10.1 10*3/uL 2.0-7.7 [facility] Basophils/100 WBC (Bld) 74.3 % 47-70 [facility] Basophils/100 WBC (Bld) 10.3 % 0-10 [facility] Basophils/100 WBC (Bld) 2.1 % 0-5 [facility] Basophils/100 WBC (Bld) 0.4 % 0-1 [facility] Determination of erythrocyte mean corpuscular volume (MCV)Ordered By: Joshua Santiago on 09-26-2023 MCV (RBC) [Entitic vol] 77.9 fL 81-99 [facility] Erythrocyte distribution wid th ratioOrdered By: Joshua Santiago on 09-26-2023 Erythrocyte distribution width (RBC) [Ratio] 18.6 % 11.6-14.6 [facility] Erythrocyte distribution wid th standard deviationOrdered By: Joshua Santiago on 09-26-2023 Erythrocyte distribution width (RBC) [Entitic vol] 51.7 fL 35.1-43.9 [facility] Hematocrit Auto (Bld) [Volum e fraction]Ordered By: Joshua Santiago on 09-26-2023 Hematocrit (Bld) [Volume fraction] 38.1 % 37-47 [facility] Immature granulocytes/100 WB C Auto (Bld)Ordered By: Joshua Santiago on 09-26-2023 Immature granulocytes/100 WBC (Bld) 0.700 % 0.0-0.9 [facility] No Panel InformationOrdered By: Joshua Santiago on 09-26-2023 23.1 pg 27.0-32.0 [facility] 29.7 g/dL 32-36 [facility] 333 K/mm3 150-450 [facility] 9.2 fl 6.2-12.0 [facility] 0 % 0-5 [facility] 14.8 SECONDS 11.7-14.9 [facility] 1.2 [facility] 66 mL/min >60 [facility] 80 mL/min >60 [facility] 61.25 ml/min [facility] 22.8 RATIO 10-20 [facility] 8 pg/mL 3.0-54.0 [facility] 31.0 mmol/L 21.0-32.0 [facility] RBC Auto (Bld) [#/Vol]Ordere d By: Joshua Santiago on 09-26-2023 RBC (Bld) [#/Vol] 4.89 10*6/uL 4.2-5.4 [facility] Serum or plasma calcium gustavo urement (mass/volume)Ordered By: Joshua Santiago on 09-26-2023 Calcium [Mass/Vol] 9.4 mg/dL 8.5-10.1 [facility] Serum or plasma creatinine m easurement (mass/volume)Ordered By: Joshua Santiago on 09-26-2023 Creatinine [Mass/Vol] 0.88 mg/dL 0.55-1.02 [facility] Serum or plasma urea nitroge n measurement (mass/volume)Ordered By: Joshuajennifer Santiago on 09-26-2023 Urea nitrogen [Mass/Vol] 20 mg/dL 7-18 [facility] Thin prep Papanicolaou smear with manual screeningOrdered By: Joshua Santiago on 09-26-2023 Thin prep Papanicolaou smear with manual screening 5 5-15 [facility] Absolute lymphocyte countOrd ered By: Dilia Best on 08-16-2023 Lymphocytes Auto (Unsp spec) [#/Vol] 1.78 10*3/uL 0.83-4.51 [facility] Automated lymphocyte count a s percentage of total leukocytesOrdered By: Dilia Best on 08-16-2023 Lymphocytes/100 WBC Auto (Unsp spec) 17.2 % 19-41 [facility] Basophil percentageOrdered B y: Dilia Best on 08-16-2023 Basophil percentage 10.2 g/dL 12.0-15.0 [facility] Basophil percentage 104 mg/dL 74-106 [facility] Basophil percentage 138 mmol/L 136-145 [facility] Basophil percentage 4.0 mmol/L 3.5-5.1 [facility] Basophil percentage 107 mmol/L 98-107 [facility] Basophils (Bld) [#/Vol] 10.3 10*3/uL 4.4-11.0 [facility] Basophils (Bld) [#/Vol] 7.1 10*3/uL 2.0-7.7 [facility] Basophils/100 WBC (Bld) 0.4 % 0-1 [facility] Basophils/100 WBC (Bld) 68.3 % 47-70 [facility] Basophils/100 WBC (Bld) 11.5 % 0-10 [facility] Basophils/100 WBC (Bld) 1.9 % 0-5 [facility] Chloride [Moles/Vol] 107 mmol/L 98-107 [facility] Eosinophils/100 WBC (Bld) 1.9 % 0-5 [facility] Glucose [Mass/Vol] 104 mg/dL 74-106 [facility] Comment on above: Fasting Glucose resu lt from 100 to 125 mg/dL suggests IMPAIRED HOMEOSTASIS per A.D.A. criteria. Hemoglobin (Bld) [Mass/Vol] 10.2 g/dL 12.0-15.0 [facility] Monocytes/100 WBC (Bld) 11.5 % 0-10 [facility] Neutrophils (Bld) [#/Vol] 7.1 10*3/uL 2.0-7.7 [facility] Neutrophils/100 WBC (Bld) 68.3 % 47-70 [facility] Potassium [Moles/Vol] 4.0 mmol/L 3.5-5.1 [facility] Sodium [Moles/Vol] 138 mmol/L 136-145 [facility] WBC (Bld) [#/Vol] 10.3 10*3/uL 4.4-11.0 [facility] Determination of erythrocyte mean corpuscular volume (MCV)Ordered By: Dilia Best on 08-16-2023 MCV (RBC) [Entitic vol] 77.9 fL 81-99 [facility] Erythrocyte distribution wid th ratioOrdered By: Dilia Best on 08-16-2023 Erythrocyte distribution width (RBC) [Ratio] 18.5 % 11.6-14.6 [facility] Erythrocyte distribution wid th standard deviationOrdered By: Dilia Best on 08-16-2023 Erythrocyte distribution width (RBC) [Entitic vol] 51.4 fL 35.1-43.9 [facility] Hematocrit Auto (Bld) [Volum e fraction]Ordered By: Dilia Best on 08-16-2023 Hematocrit (Bld) [Volume fraction] 34.8 % 37-47 [facility] Immature granulocytes/100 WB C Auto (Bld)Ordered By: Dilia Best on 08-16-2023 Immature granulocytes/100 WBC (Bld) 0.700 % 0.0-0.9 [facility] Comment on above: IG% - Immature Granu locytes (promyelocytes, myelocytes and metamyelocytes) > 1% indicates that a LEFT SHIFT is Present. Laboratory - Chemistry and C hemistry - challengeOrdered By: Dilia Best on 08-16-2023 CO2 [Moles/Vol] 28.0 mmol/L 21.0-32.0 [facility] Urea nitrogen/Creatinine [Mass ratio] 17.0 mg/mg - [facility] Laboratory - Hematology and Cell countsOrdered By: Dilia Best on 08-16-2023 MCH (RBC) [Entitic mass] 22.8 pg 27.0-32.0 [facility] MCHC (RBC) [Mass/Vol] 29.3 g/dL [facility] Nucleated RBC/100 WBC (Bld) [Ratio] 0 % 0-5 [facility] Platelets (Bld) [#/Vol] 313 10*3/uL 150-450 [facility] No Panel InformationOrdered By: Dilia Best on 08-16-2023 Estimated Creatinine Clearance Calc 48.50 ml/min [facility] Estimated GFR (MDRD) Amer 69 mL/min >60 [facility] Comment on above: GFR Calc Estimated GFR (MDRD) Non-Af Amer 57 mL/min >60 [facility] Comment on above: Non- GFR Calc 22.8 pg 27.0-32.0 [facility] 29.3 g/dL [facility] 313 K/mm3 150-450 [facility] 0 % 0-5 [facility] 57 mL/min >60 [facility] 69 mL/min >60 [facility] 48.50 ml/min [facility] 17.0 RATIO 05-13 [facility] 28.0 mmol/L 21.0-32.0 [facility] Platelet mean volume Ariel-Ec ker (Bld) [Entitic vol]Ordered By: Dilai Best on 08-16-2023 Platelet mean volume (Bld) [Entitic vol] 9.1 fL 6.2-12.0 [facility] RBC Auto (Bld) [#/Vol]Ordere d By: Dilia Best on 08-16-2023 RBC (Bld) [#/Vol] 4.47 10*6/uL 4.2-5.4 [facility] Serum or plasma calcium gustavo urement (mass/volume)Ordered By: Dilia Best on 08-16-2023 Calcium [Mass/Vol] 9.4 mg/dL 8.5-10.1 [facility] Serum or plasma creatinine m easurement (mass/volume)Ordered By: Dilia Best on 08-16-2023 Creatinine [Mass/Vol] 1.00 mg/dL 0.55-1.02 [facility] Comment on above: The validity of the calculated GFR & GFRAA in patients over 70 years has not been determined. Clinical correlation is essential. Serum or plasma urea nitroge n measurement (mass/volume)Ordered By: Dilia Best on 08-16-2023 Urea nitrogen [Mass/Vol] 17 mg/dL 7-18 [facility] Thin prep Papanicolaou smear with manual screeningOrdered By: Dilia Best on 08-16-2023 Thin prep Papanicolaou smear with manual screening 3 5-15 [facility] Serum or plasma trough vanco mycin levelOrdered By: Felipe Cordoba on 08-15-2023 Vancomycin trough [Mass/Vol] 19.4 ug/mL 5.0-15.0 [facility] Comment on above: VANCOMYCIN STANDARED DRUG THERAPY TROUGH LEVEL: 5.0 - 15.0 mg/L VANCOMYCIN HIGH INTENSITY THERAPY TROUGH LEVEL: 15.0 - 20.0 mg/L High Intensity therapy recommended for serious lifethreatening infections include:- Etwmiawueg-Wuomceunuibi-Acrnedznv (Ventilator/Healtcare Associated)-Sepsis PLEASE CONTACT PHARMACY SERVICES (#7140) FOR INTERPRETATIONOF RESULTS. Basophil percentageOrdered B y: Felipe Cordoba on 08-14-2023 Basophil percentage 3.2 mg/dL 2.5-4.9 [facility] Basophil percentage 6.6 g/dL 6.4-8.2 [facility] Basophil percentage 0.80 mg/dL 0.20-1.00 [facility] Bilirubin [Mass/Vol] 0.80 mg/dL 0.20-1.00 [facility] Comment on above: For patients on eltr ombopag therapy, use of Dimension [place] TBIL is not recommended. Protein [Mass/Vol] 6.6 g/dL 6.4-8.2 [facility] Blood manual differential co mment interpretation (narrative result)Ordered By: Felipe Cordoba on 08-14-2023 Manual differential comment Ray (Bld) [Interp] SCANNED [facility] Laboratory - Chemistry and C hemistry - challengeOrdered By: Felipe Cordoba on 08-14-2023 Albumin/Globulin [Mass ratio] 0.7 {ratio} 0.9-2.4 [facility] ALP [Catalytic activity/Vol] 60 U/L 45-117 [facility] ALT [Catalytic activity/Vol] 15 U/L 13-56 [facility] Globulin (S) [Mass/Vol] 3.8 g/dL 2.2-4.2 [facility] Magnesium [Mass/Vol] 2.2 mg/dL 1.6-2.6 [facility] No Panel InformationOrdered By: Felipe Cordoba on 08-14-2023 3.8 g/dL 2.2-4.2 [facility] 0.7 RATIO 0.9-2.4 [facility] 60 U/L 45-117 [facility] 15 U/L - [facility] 2.2 mg/dL 1.6-2.6 [facility] Review by pathologistOrdered By: Felipe Cordoba on 08-14-2023 Pathologist review Ray (Unsp spec) [Interp] Reviewed [facility] Comment on above: Previous reported re sult: Aubree lion Edited by: [email or web address] on 08/15/23:1427Leukocytosis.Microcytic anemia.Clinical correlation necessary.Aaron Sloan M.D. 08/15/23 AMENDED REPORT 08/15/23 1427 PATH REV previously reported as: Aubree lion Serum or plasma thyroid stim ulating hormone (TSH) measurement (units/volume)Ordered By: Felipe Cordoba on 08-14-2023 TSH Qn 3.30 uIU/mL 0.358-3.74 [facility] Thin prep Papanicolaou smear with manual screeningOrdered By: Felipe Cordoba on 08-14-2023 Thin prep Papanicolaou smear with manual screening 2.8 g/dL 3.2-5.0 [facility] Thin prep Papanicolaou smear with manual screening 14 U/L 15-37 [facility] Absolute lymphocyte countOrd ered By: Kelle Foster on 08-13-2023 Lymphocytes Auto (Unsp spec) [#/Vol] 1.50 10*3/uL 0.83-4.51 [facility] Automated lymphocyte count a s percentage of total leukocytesOrdered By: Kelle Foster on 08-13-2023 Lymphocytes/100 WBC Auto (Unsp spec) 9.8 % 19-41 [facility] Bacteria identified Cx Nom ( U)Ordered By: Kelle Foster on 08-13-2023 Culture, urine Lactobacillus gasseri [facility] Culture, urine Lactobacillus gasseri [facility] Basophil percentageOrdered B y: Kelle Foster on 08-13-2023 Basophil percentage 5-10 SEEN /hpf 0-5 [facility] Basophils/100 WBC (Bld) 0.3 % 0-1 [facility] Chloride [Moles/Vol] 100 mmol/L 98-107 [facility] Eosinophils/100 WBC (Bld) 0.4 % 0-5 [facility] Glucose [Mass/Vol] 127 mg/dL 74-106 [facility] Comment on above: Fasting Glucose resu lt greater than or equal to 126 mg/dL suggests DIABETES MELLITUS per A.D.A. criteria. Hemoglobin (Bld) [Mass/Vol] 11.2 g/dL 12.0-15.0 [facility] Monocytes/100 WBC (Bld) 11.6 % 0-10 [facility] Neutrophils (Bld) [#/Vol] 11.8 10*3/uL 2.0-7.7 [facility] Neutrophils/100 WBC (Bld) 77.3 % 47-70 [facility] Potassium [Moles/Vol] 3.0 mmol/L 3.5-5.1 [facility] Sodium [Moles/Vol] 135 mmol/L 136-145 [facility] WBC (Bld) [#/Vol] 15.2 10*3/uL 4.4-11.0 [facility] Bilirubin Test strip Ql (U)O rdered By: Kelle Foster on 08-13-2023 Bilirubin Ql (U) 3 mg/dL Negative [facility] Comment on above: COLOR OF URINE MAY A FFECT DIPSTICK RESULTS. Blood manual differential co mment interpretation (narrative result)Ordered By: Kelle Foster on 08-13-2023 Manual differential comment Ray (Bld) [Interp] SCANNED [facility] Comment on above: MONOCYTOSIS NOTED Culture, urineOrdered By: John Foster on 08-13-2023 Bacteria identified Cx Nom (U) Lactobacillus gasseri [facility] Determination of erythrocyte mean corpuscular volume (MCV)Ordered By: Kelle Foster on 08-13-2023 MCV (RBC) [Entitic vol] 78.6 fL 81-99 [facility] Erythrocyte distribution wid th ratioOrdered By: Kelle Foster on 08-13-2023 Erythrocyte distribution width (RBC) [Ratio] 18.5 % 11.6-14.6 [facility] Erythrocyte distribution wid th standard deviationOrdered By: Kelle Foster on 08-13-2023 Erythrocyte distribution width (RBC) [Entitic vol] 52.9 fL 35.1-43.9 [facility] Hematocrit Auto (Bld) [Volum e fraction]Ordered By: Kelle Foster on 08-13-2023 Hematocrit (Bld) [Volume fraction] 38.6 % 37-47 [facility] Immature granulocytes/100 WB C Auto (Bld)Ordered By: Kelle Foster on 08-13-2023 Immature granulocytes/100 WBC (Bld) 0.600 % 0.0-0.9 [facility] Comment on above: IG% - Immature Granu locytes (promyelocytes, myelocytes and metamyelocytes) > 1% indicates that a LEFT SHIFT is Present. Ketones Test strip Ql (U)Ord ered By: Kelle Foster on 08-13-2023 Ketones Ql (U) 5 mg/dl Negative [facility] Laboratory - Chemistry and C hemistry - challengeOrdered By: Kelle Foster on 08-13-2023 CO2 [Moles/Vol] 28.0 mmol/L 21.0-32.0 [facility] Natriuretic peptide B (Bld) [Mass/Vol] 90.4 pg/mL 0-100 [facility] Urea nitrogen/Creatinine [Mass ratio] 13.1 mg/mg 10-20 [facility] Laboratory - Hematology and Cell countsOrdered By: Kelle Foster on 08-13-2023 MCH (RBC) [Entitic mass] 22.8 pg 27.0-32.0 [facility] MCHC (RBC) [Mass/Vol] 29.0 g/dL 32-36 [facility] Nucleated RBC/100 WBC (Bld) [Ratio] 0 % 0-5 [facility] Platelets (Bld) [#/Vol] 335 10*3/uL 150-450 [facility] Mucus LM Ql (Urine sed)Order ed By: Kelle Foster on 08-13-2023 Mucus Ql (Urine sed) 1+ /hpf [facility] Nitrite Test strip Ql (U)Ord ered By: Kelle Foster on 08-13-2023 Nitrite Ql (U) Negative Negative [facility] No Panel InformationOrdered By: Kelle Foster on 08-13-2023 D-Dimer Quantitative (PE/DVT) 1.47 FEU/ug/m 0.27-0.49 [facility] Comment on above: D-Dimer ELEVATED (>0 .49): Additional studies and clinicalassessments are indicated to conclude diagnosis of:Deep Vein Thrombosis (DVT) or Pulmonary Embolism (PE)CRITICAL VALUE VERIFIED. CALLED TO [id number] Gwendolyn Braga.RESULTS READ BACK BY SAME . 1.47 FEU/ug/m 0.27-0.49 [facility] Urine RBC 0-5 SEEN /hpf 0-5 [facility] 0-5 SEEN /hpf 0-5 [facility] Estimated Creatinine Clearance Calc 55.85 ml/min [facility] Estimated GFR (MDRD) Amer 70 mL/min >60 [facility] Comment on above: GFR Calc Estimated GFR (MDRD) Non-Af Amer 58 mL/min >60 [facility] Comment on above: Non- GFR Calc 90.4 pg/mL 0-100 [facility] Platelet mean volume Ariel-Ec ker (Bld) [Entitic vol]Ordered By: Kelle Foster on 08-13-2023 Platelet mean volume (Bld) [Entitic vol] 8.7 fL 6.2-12.0 [facility] Protein Test strip Ql (U)Ord ered By: Kelle Foster on 08-13-2023 Protein Ql (U) 30 mg/dl Negative [facility] RBC Auto (Bld) [#/Vol]Ordere d By: Kelle Foster on 08-13-2023 RBC (Bld) [#/Vol] 4.91 10*6/uL 4.2-5.4 [facility] Review by pathologistOrdered By: Kelle Foster on 08-13-2023 Pathologist review Ray (Unsp spec) [Interp] May foll [facility] Serum or plasma calcium gustavo urement (mass/volume)Ordered By: Kelle Foster on 08-13-2023 Calcium [Mass/Vol] 9.7 mg/dL 8.5-10.1 [facility] Serum or plasma creatinine m easurement (mass/volume)Ordered By: Kelle Foster on 08-13-2023 Creatinine [Mass/Vol] 0.99 mg/dL 0.55-1.02 [facility] Comment on above: The validity of the calculated GFR & GFRAA in patients over 70 years has not been determined. Clinical correlation is essential. Serum or plasma urea nitroge n measurement (mass/volume)Ordered By: Kelle Foster on 08-13-2023 Urea nitrogen [Mass/Vol] 13 mg/dL 7-18 [facility] Serum or plasma uric acid me asurement (mass/volume)Ordered By: Kelle Foster on 08-13-2023 Urate [Mass/Vol] 5.8 mg/dL 2.6-6.0 [facility] Comment on above: The drugs N-Acetylcy steine and Metamizole may falsely depress this assay. Squamous epithelial cells de tection in urine sediment by light microscopyOrdered By: Kelle Foster on 08-13-2023 Epithelial cells.squamous LM Ql (Urine sed) 0-5 SEEN /hpf 5-10 [facility] Thin prep Papanicolaou smear with manual screeningOrdered By: Kelle Foster on 08-13-2023 Thin prep Papanicolaou smear with manual screening 7 5-15 [facility] Urine blood detectionOrdered By: Kelle Foster on 08-13-2023 RBC Ql (U) 50 /ul Negative [facility] Urine clarityOrdered By: Lizett Foster on 08-13-2023 Clarity (U) Sl. Cloudy Clear [facility] Urine color determinationOrd ered By: Kelle Foster on 08-13-2023 Color (U) Tram Yellow [facility] Urine glucose detectionOrder ed By: Kelle Foster on 08-13-2023 Glucose Ql (U) Normal mg/dl Normal [facility] Urine leukocyte esterase det ection by dipstickOrdered By: Kelle Foster on 08-13-2023 Leukocyte esterase Test strip Ql (U) 100 /ul Negative [facility] Urine pHOrdered By: Kelle Foster on 08-13-2023 pH (U) 5.0 [pH] 5.0 - 8.0 [facility] Urine sediment bacteria coun t by microscopy (number/high power field)Ordered By: Kelle Foster on 08-13-2023 Bacteria LM.HPF (Urine sed) [#/Area] RARE /hpf None Seen [facility] Urine specific gravity measu rementOrdered By: Kelle Foster on 08-13-2023 Specific gravity (U) [Rel density] 1.020 1.002-1.030 [facility] Urine urobilinogen measureme ntOrdered By: Kelle Foster on 08-13-2023 Urobilinogen Ql (U) 1 mg/dl Normal [facility] Absolute lymphocyte countOrd ered By: Moon Rayo on 08-01-2023 Lymphocytes Auto (Unsp spec) [#/Vol] 1.72 10*3/uL 0.83-4.51 [facility] Basophil percentageOrdered B y: Moon Rayo on 08-01-2023 Basophil percentage 106 mg/dL 74-106 [facility] Basophil percentage 7.5 g/dL 6.4-8.2 [facility] Basophil percentage 0.70 mg/dL 0.20-1.00 [facility] Basophil percentage 141 mg/dL <200 [facility] Basophil percentage 117 mg/dL <199 [facility] Basophil percentage 141 mmol/L 136-145 [facility] Basophil percentage 3.6 mmol/L 3.5-5.1 [facility] Basophil percentage 105 mmol/L 98-107 [facility] Basophils (Bld) [#/Vol] 10.0 10*3/uL 4.4-11.0 [facility] Basophils (Bld) [#/Vol] 7.1 10*3/uL 2.0-7.7 [facility] Basophils/100 WBC (Bld) 0.6 % 0-1 [facility] Basophils/100 WBC (Bld) 70.9 % 47-70 [facility] Basophils/100 WBC (Bld) 2.5 % 0-5 [facility] Bilirubin [Mass/Vol] 0.70 mg/dL 0.20-1.00 [facility] Comment on above: For patients on eltr ombopag therapy, use of Dimension [place] TBIL is not recommended. Chloride [Moles/Vol] 105 mmol/L 98-107 [facility] Cholesterol [Mass/Vol] 141 mg/dL <200 [facility] Comment on above: <200 mg/dL Desirable 200-240 mg/dL Borderline >240 mg/dL High Risk Eosinophils/100 WBC (Bld) 2.5 % 0-5 [facility] Glucose [Mass/Vol] 106 mg/dL 74-106 [facility] Comment on above: Fasting Glucose resu lt from 100 to 125 mg/dL suggests IMPAIRED HOMEOSTASIS per A.D.A. criteria. Neutrophils (Bld) [#/Vol] 7.1 10*3/uL 2.0-7.7 [facility] Neutrophils/100 WBC (Bld) 70.9 % 47-70 [facility] Potassium [Moles/Vol] 3.6 mmol/L 3.5-5.1 [facility] Protein [Mass/Vol] 7.5 g/dL 6.4-8.2 [facility] Sodium [Moles/Vol] 141 mmol/L 136-145 [facility] Triglyceride [Mass/Vol] 117 mg/dL <199 [facility] Comment on above: The drugs N-Acetylcy steine and Metamizole may falsely depress this assay.Serum Triglycerides Reference Interval Normal <150 mg/dL Borderline high 150 - 199 mg/dL High 200 - 499 mg/dL Very High > or = 500 mg/dL WBC (Bld) [#/Vol] 10.0 10*3/uL 4.4-11.0 [facility] Blood erythrocytes count (nu mber/volume)Ordered By: Moon Rayo on 08-01-2023 RBC (Bld) [#/Vol] 5.11 10*6/uL 4.2-5.4 [facility] Blood hemoglobin measurement (mass/volume)Ordered By: Moon Rayo on 08-01-2023 Hemoglobin (Bld) [Mass/Vol] 11.7 g/dL 12.0-15.0 [facility] Blood lymphocytes/100 leukoc ytesOrdered By: Moon Rayo on 08-01-2023 Lymphocytes/100 WBC (Bld) 17.1 % 19-41 [facility] Blood monocytes/100 leukocyt esOrdered By: Moon Rayo on 08-01-2023 Monocytes/100 WBC (Bld) 8.2 % 0-10 [facility] Blood platelet mean volumeOr dered By: Moon Rayo on 08-01-2023 Platelet mean volume (Bld) [Entitic vol] 9.2 fL 6.2-12.0 [facility] Determination of erythrocyte mean corpuscular volume (MCV)Ordered By: Moon Rayo on 08-01-2023 MCV (RBC) [Entitic vol] 80.4 fL 81-99 [facility] Erythrocyte sedimentation ra teOrdered By: Moon Rayo on 08-01-2023 ESR (Bld) [Velocity] 28 mm/h 0-30 [facility] Hematocrit Auto (Bld) [Volum e fraction]Ordered By: Moon Rayo on 08-01-2023 Hematocrit (Bld) [Volume fraction] 41.1 % 37-47 [facility] Iron measurement (mass/mass) Ordered By: Moon Rayo on 08-01-2023 Iron (Unsp spec) [Mass/Mass] 32 ug/dL 50-170 [facility] Laboratory - Chemistry and C hemistry - challengeOrdered By: Moon Rayo on 08-01-2023 ALP [Catalytic activity/Vol] 80 U/L 45-117 [facility] ALT [Catalytic activity/Vol] 36 U/L 13-56 [facility] CO2 [Moles/Vol] 30.0 mmol/L 21.0-32.0 [facility] Globulin (S) [Mass/Vol] 4.1 g/dL 2.2-4.2 [facility] Magnesium [Mass/Vol] 2.4 mg/dL 1.6-2.6 [facility] Urea nitrogen/Creatinine [Mass ratio] 23.8 mg/mg 10-20 [facility] Laboratory - Hematology and Cell countsOrdered By: Moon Rayo on 08-01-2023 Erythrocyte distribution width (RBC) [Entitic vol] 54.5 fL 35.1-43.9 [facility] Erythrocyte distribution width (RBC) [Ratio] 18.9 % 11.6-14.6 [facility] Immature granulocytes/100 WBC (Bld) 0.700 % 0.0-0.9 [facility] Comment on above: IG% - Immature Granu locytes (promyelocytes, myelocytes and metamyelocytes) > 1% indicates that a LEFT SHIFT is Present. MCH (RBC) [Entitic mass] 22.9 pg 27.0-32.0 [facility] Nucleated RBC/100 WBC (Bld) [Ratio] 0 % 0-5 [facility] MCHC Auto (RBC) [Mass/Vol]Or dered By: Moon Rayo on 08-01-2023 MCHC (RBC) [Mass/Vol] 28.5 g/dL 32-36 [facility] No Panel InformationOrdered By: Moon Rayo on 08-01-2023 Estimated GFR (MDRD) Amer 89 mL/min >60 [facility] Comment on above: GFR Calc Estimated GFR (MDRD) Non-Af Amer 74 mL/min >60 [facility] Comment on above: Non- GFR Calc Thyroid Stimulating Hormone (TSH) 2.10 uIU/mL 0.358-3.74 [facility] Total Iron Binding Capacity 413 ug/dL 250-450 [facility] Vitamin D 25-Hydroxy 29.1 ng/mL [facility] Comment on above: Vitamin D 25(OH) Sta tus Range Deficiency <20 ng/mL (50nmol/L) Insufficiency 20 - 30 ng/mL (50 - 75 nmol/L) Sufficiency 30 - 100 ng/mL (75 - 250 nmol/L) Toxicity >100 ng/mL (>250 nmol/L) 22.9 pg 27.0-32.0 [facility] 18.9 % 11.6-14.6 [facility] 54.5 fl 35.1-43.9 [facility] 0.700 % 0.0-0.9 [facility] 0 % 0-5 [facility] 74 mL/min >60 [facility] 89 mL/min >60 [facility] 23.8 RATIO 10-20 [facility] 4.1 g/dL 2.2-4.2 [facility] 80 U/L 45-117 [facility] 36 U/L 13-56 [facility] 2.4 mg/dL 1.6-2.6 [facility] 30.0 mmol/L 21.0-32.0 [facility] 2.10 uIU/mL 0.358-3.74 [facility] 413 ug/dL 250-450 [facility] 29.1 ng/mL [facility] Platelets bldOrdered By: Carol Rayo on 08-01-2023 Platelets (Bld) [#/Vol] 418 10*3/uL 150-450 [facility] Serum or plasma albumin gustavo urement (mass/volume)Ordered By: Moon Rayo on 08-01-2023 Albumin [Mass/Vol] 3.4 g/dL 3.2-5.0 [facility] Serum or plasma albumin/glob ulin mass ratioOrdered By: Moon Rayo on 08-01-2023 Albumin/Globulin [Mass ratio] 0.8 {ratio} 0.9-2.4 [facility] Serum or plasma calcium gustavo urement (mass/volume)Ordered By: Moon Rayo on 08-01-2023 Calcium [Mass/Vol] 9.5 mg/dL 8.5-10.1 [facility] Serum or plasma cholesterol in HDL measurement (mass/volume)Ordered By: Moon Rayo on 08-01-2023 Cholesterol in HDL [Mass/Vol] 45 mg/dL >40 [facility] Comment on above: The drugs N-Acetylcy steine and Metamizole may falsely depress this assay. Reference Range HDL <40 mg/dL Low HDL Cholesterol HDL >or= 60 mg/dL High HDL Cholesterol Serum or plasma cholesterol in VLDL measurement (mass/volume)Ordered By: Moon Rayo on 08-01-2023 Cholesterol in VLDL [Mass/Vol] 23 mg/dL 5-40 [facility] Serum or plasma creatinine m easurement (mass/volume)Ordered By: Moon Rayo on 08-01-2023 Creatinine [Mass/Vol] 0.80 mg/dL 0.55-1.02 [facility] Comment on above: The validity of the calculated GFR & GFRAA in patients over 70 years has not been determined. Clinical correlation is essential. Serum or plasma iron saturat ion measurement (mass fraction)Ordered By: Moon Rayo on 08-01-2023 Iron saturation [Mass fraction] 7.7 % 15.0-55.0 [facility] Serum or plasma low density lipoprotein (LDL) cholesterol measurement (mass/volume)Ordered By: Moon Rayo on 08-01-2023 Cholesterol in LDL [Mass/Vol] 73 mg/dL 0-130 [facility] Serum or plasma urea nitroge n measurement (mass/volume)Ordered By: Moon Rayo on 08-01-2023 Urea nitrogen [Mass/Vol] 19 mg/dL 7-18 [facility] Serum or plasma uric acid me asurement (mass/volume)Ordered By: Moon Rayo on 08-01-2023 Urate [Mass/Vol] 5.7 mg/dL 2.6-6.0 [facility] Comment on above: The drugs N-Acetylcy steine and Metamizole may falsely depress this assay. Thin prep Papanicolaou smear with manual screeningOrdered By: Moon Rayo on 08-01-2023 Thin prep Papanicolaou smear with manual screening 41 U/L 15-37 [facility] Thin prep Papanicolaou smear with manual screening 6 5-15 [facility] Absolute lymphocyte counton 07-15-2022 Lymphocytes Auto (Unsp spec) [#/Vol] 2.12 10*3/uL 0.83-4.51 [facility] Work Phone: Basophil percentageon 2021 Basophils/100 WBC (Bld) 0.3 % 0-1 [facility] Work Phone: Bilirubin [Mass/Vol] 0.40 mg/dL 0.20-1.00 [facility] Work Phone: Comment on above: For patients on eltr ombopag therapy, use of Dimension [place] TBIL is not recommended. Chloride [Moles/Vol] 102 mmol/L 98-107 [facility] Work Phone: Eosinophils/100 WBC (Bld) 1.6 % 0-5 [facility] Work Phone: [phone] Glucose [Mass/Vol] 83 mg/dL 74-106 [facility] Work Phone: Neutrophils (Bld) [#/Vol] 9.2 10*3/uL 2.0-7.7 [facility] Work Phone: Neutrophils/100 WBC (Bld) 72.2 % 47-70 [facility] Work Phone: Potassium [Moles/Vol] 3.8 mmol/L 3.5-5.1 [facility] Work Phone: [phone] Protein [Mass/Vol] 7.6 g/dL 6.4-8.2 [facility] Work Phone: Sodium [Moles/Vol] 137 mmol/L 136-145 [facility] Work Phone: WBC (Bld) [#/Vol] 12.7 10*3/uL 4.4-11.0 [facility] Work Phone: Blood erythrocytes count (nu mber/volume)on 07-15-2022 RBC (Bld) [#/Vol] 4.89 10*6/uL 4.2-5.4 [facility] Work Phone: Blood hemoglobin measurement (mass/volume)on 07-15-2022 Hemoglobin (Bld) [Mass/Vol] 12.0 g/dL 12.0-15.0 [facility] Work Phone: Blood lymphocytes/100 leukoc yteson 07-15-2022 Lymphocytes/100 WBC (Bld) 16.7 % 19-41 [facility] Work Phone: Blood monocytes/100 leukocyt eson 07-15-2022 Monocytes/100 WBC (Bld) 8.3 % 0-10 [facility] Work Phone: Blood platelet mean volumeon 07-15-2022 Platelet mean volume (Bld) [Entitic vol] 9.7 fL 6.2-12.0 [facility] Work Phone: Determination of erythrocyte mean corpuscular volume (MCV)on 07-15-2022 MCV (RBC) [Entitic vol] 83.4 fL 81-99 [facility] Work Phone: Hematocrit Auto (Bld) [Volum e fraction]on 07-15-2022 Hematocrit (Bld) [Volume fraction] 40.8 % 37-47 [facility] Work Phone: Laboratory - Chemistry and C hemistry - challengeon 07-15-2022 ALP [Catalytic activity/Vol] 73 U/L 45-117 [facility] Work Phone: ALT [Catalytic activity/Vol] 56 U/L 13-56 [facility] Work Phone: CO2 [Moles/Vol] 31.0 mmol/L 21.0-32.0 [facility] Work Phone: Globulin (S) [Mass/Vol] 3.9 g/dL 2.2-4.2 [facility] Work Phone: Magnesium [Mass/Vol] 2.3 mg/dL 1.6-2.6 [facility]: Urea nitrogen/Creatinine [Mass ratio] 25.8 mg/mg 10-20 [facility] Work Phone: Laboratory - Hematology and Cell countson 07-15-2022 Erythrocyte distribution width (RBC) [Entitic vol] 51.7 fL 35.1-43.9 [facility] Work Phone: Erythrocyte distribution width (RBC) [Ratio] 17.1 % 11.6-14.6 [facility] Work Phone: Immature granulocytes/100 WBC (Bld) 0.900 % 0.0-0.9 [facility] Work Phone: Comment on above: IG% - Immature Granu locytes (promyelocytes, myelocytes and metamyelocytes) > 1% indicates that a LEFT SHIFT is Present. MCH (RBC) [Entitic mass] 24.5 pg 27.0-32.0 [facility] Work Phone: Nucleated RBC/100 WBC (Bld) [Ratio] 0 % 0-5 [facility] Work Phone: MCHC Auto (RBC) [Mass/Vol]on 07-15-2022 MCHC (RBC) [Mass/Vol] 29.4 g/dL 32-36 [facility] Work Phone: No Panel Informationon 07-15 Estimated GFR (MDRD) Amer 98 mL/min >60 [facility] Work Phone: Comment on above: GFR Calc Estimated GFR (MDRD) Non-Af Amer 81 mL/min >60 [facility] Work Phone: Comment on above: Non- GFR Calc Thyroid Stimulating Hormone (TSH) 3.39 uIU/mL 0.358-3.74 [facility] Work Phone: Vitamin D 25-Hydroxy 20.0 ng/mL [facility] Work Phone: Comment on above: Vitamin D 25(OH) Sta tus Range Deficiency <20 ng/mL (50nmol/L) Insufficiency 20 - 30 ng/mL (50 - 75 nmol/L) Sufficiency 30 - 100 ng/mL (75 - 250 nmol/L) Toxicity >100 ng/mL (>250 nmol/L) Platelets bldon 07-15-2022 Platelets (Bld) [#/Vol] 325 10*3/uL 150-450 [facility] Work Phone: Serum or plasma albumin gustavo urement (mass/volume)on 07-15-2022 Albumin [Mass/Vol] 3.7 g/dL 3.2-5.0 [facility] Work Phone: Serum or plasma albumin/glob ulin mass ratioon 07-15-2022 Albumin/Globulin [Mass ratio] 0.9 {ratio} 0.9-2.4 [facility] Work Phone: Serum or plasma calcium gustavo urement (mass/volume)on 07-15-2022 Calcium [Mass/Vol] 9.4 mg/dL 8.5-10.1 [facility] Work Phone: Serum or plasma creatinine m easurement (mass/volume)on 07-15-2022 Creatinine [Mass/Vol] 0.74 mg/dL 0.55-1.02 [facility] Work Phone: Comment on above: The validity of the calculated GFR & GFRAA in patients over 70 years has not been determined. Clinical correlation is essential. Serum or plasma urea nitroge n measurement (mass/volume)on 07-15-2022 Urea nitrogen [Mass/Vol] 19 mg/dL 7-18 [facility] Work Phone: Thin prep Papanicolaou smear with manual screeningon 07-15-2022 Thin prep Papanicolaou smear with manual screening 46 U/L 15-37 [facility] Work Phone: Thin prep Papanicolaou smear with manual screening 4 5-15 [facility] Work Phone: Absolute lymphocyte counton 12-14-2021 Lymphocytes Auto (Unsp spec) [#/Vol] 0.91 10*3/uL 0.83-4.51 [facility] Work Phone: Basophil percentageon 2021 Basophil percentage 5-10 SEEN /hpf [facility] Work Phone: Basophils/100 WBC (Bld) 0.4 % 0-1 [facility] Work Phone: Bilirubin [Mass/Vol] 0.20 mg/dL 0.20-1.00 [facility] Work Phone: Comment on above: For patients on eltr ombopag therapy, use of Dimension [place] TBIL is not recommended. Chloride [Moles/Vol] 110 mmol/L 98-107 [facility] Work Phone: Eosinophils/100 WBC (Bld) 1.3 % 0-5 [facility] Work Phone: Glucose [Mass/Vol] 125 mg/dL 74-106 [facility] Work Phone: Comment on above: Fasting Glucose resu lt from 100 to 125 mg/dL suggests IMPAIRED HOMEOSTASIS per A.D.A. criteria. Neutrophils (Bld) [#/Vol] 5.0 10*3/uL 2.0-7.7 [facility] Work Phone: Neutrophils/100 WBC (Bld) 70.1 % 47-70 [facility] Work Phone: Potassium [Moles/Vol] 2.5 mmol/L 3.5-5.1 [facility] Work Phone: Comment on above: Slight Hemolysis, Re sult may be falsely increased. Critical Result(s) Called at: 15:44:42 12/14/2021 by: Jackson Núñez RN (ER). Results read back by same. Protein [Mass/Vol] 6.9 g/dL 6.4-8.2 [facility] Work Phone: Sodium [Moles/Vol] 139 mmol/L 136-145 [facility] Work Phone: WBC (Bld) [#/Vol] 7.1 10*3/uL 4.4-11.0 [facility] Work Phone: Bilirubin Test strip Ql (U)o n 12-14-2021 Bilirubin Ql (U) Negative Negative [facility] Work Phone: Blood erythrocytes count (nu mber/volume)on 12-14-2021 RBC (Bld) [#/Vol] 5.48 10*6/uL 4.2-5.4 [facility]: Blood hemoglobin measurement (mass/volume)on 12-14-2021 Hemoglobin (Bld) [Mass/Vol] 14.4 g/dL 12.0-15.0 [facility] Work Phone: Blood lymphocytes/100 leukoc yteson 12-14-2021 Lymphocytes/100 WBC (Bld) 12.8 % 19-41 [facility] Work Phone: Blood monocytes/100 leukocyt eson 12-14-2021 Monocytes/100 WBC (Bld) 14.7 % 0-10 [facility] Work Phone: Blood platelet mean volumeon 12-14-2021 Platelet mean volume (Bld) [Entitic vol] 9.7 fL 6.2-12.0 [facility] Work Phone: Determination of erythrocyte mean corpuscular volume (MCV)on 12-14-2021 MCV (RBC) [Entitic vol] 84.3 fL 81-99 [facility] Work Phone: Hematocrit Auto (Bld) [Volum e fraction]on 12-14-2021 Hematocrit (Bld) [Volume fraction] 46.2 % 37-47 [facility] Work Phone: Ketones Test strip Ql (U)on 12-14-2021 Ketones Ql (U) Negative Negative [facility] Work Phone: Laboratory - Chemistry and C hemistry - challengeon 12-14-2021 ALP [Catalytic activity/Vol] 68 U/L 45-117 [facility] Work Phone: ALT [Catalytic activity/Vol] 185 U/L 13-56 [facility] Work Phone: CO2 [Moles/Vol] 18.0 mmol/L 21.0-32.0 [facility] Work Phone: [phone] Globulin (S) [Mass/Vol] 3.6 g/dL 2.2-4.2 [facility] Work Phone: [phone] Lipase [Catalytic activity/Vol] 85 U/L 73-393 [facility] Work Phone: [phone] Urea nitrogen/Creatinine [Mass ratio] 26.7 mg/mg 10-20 [facility] Work Phone: Laboratory - Hematology and Cell countson 12-14-2021 Erythrocyte distribution width (RBC) [Entitic vol] 50.9 fL 35.1-43.9 [facility] Work Phone: Erythrocyte distribution width (RBC) [Ratio] 16.5 % 11.6-14.6 [facility] Work Phone: Immature granulocytes/100 WBC (Bld) 0.700 % 0.0-0.9 [facility] Work Phone: Comment on above: IG% - Immature Granu locytes (promyelocytes, myelocytes and metamyelocytes) > 1% indicates that a LEFT SHIFT is Present. MCH (RBC) [Entitic mass] 26.3 pg 27.0-32.0 [facility] Work Phone: Nucleated RBC/100 WBC (Bld) [Ratio] 0 % 0-5 [facility] Work Phone: MCHC Auto (RBC) [Mass/Vol]on 12-14-2021 MCHC (RBC) [Mass/Vol] 31.2 g/dL 32-36 [facility] Work Phone: Mucus LM Ql (Urine sed)on Mucus Ql (Urine sed) 0 SEEN /hpf [facility] Work Phone: Nitrite Test strip Ql (U)on 12-14-2021 Nitrite Ql (U) Negative Negative [facility] Work Phone: No Panel Informationon 12-14 Estimated Creatinine Clearance Calc 34.44 ml/min [facility] Work Phone: Estimated GFR (MDRD) Amer 56 mL/min >60 [facility] Work Phone: Comment on above: GFR Calc Estimated GFR (MDRD) Non-Af Amer 46 mL/min >60 [facility] Work Phone: Comment on above: Non- GFR Calc Platelets bldon 12-14-2021 Platelets (Bld) [#/Vol] 257 10*3/uL 150-450 [facility] Work Phone: Protein Test strip Ql (U)on 12-14-2021 Protein Ql (U) 30 mg/dl Negative [facility] Work Phone: Serum or plasma albumin gustavo urement (mass/volume)on 12-14-2021 Albumin [Mass/Vol] 3.3 g/dL 3.2-5.0 [facility] Work Phone: Serum or plasma albumin/glob ulin mass ratioon 12-14-2021 Albumin/Globulin [Mass ratio] 0.9 {ratio} 0.9-2.4 [facility] Work Phone: Serum or plasma calcium gustavo urement (mass/volume)on 12-14-2021 Calcium [Mass/Vol] 8.6 mg/dL 8.5-10.1 [facility] Work Phone: Serum or plasma creatinine m easurement (mass/volume)on 12-14-2021 Creatinine [Mass/Vol] 1.20 mg/dL 0.55-1.02 [facility] Work Phone: Comment on above: The validity of the calculated GFR & GFRAA in patients over 70 years has not been determined. Clinical correlation is essential. Serum or plasma urea nitroge n measurement (mass/volume)on 12-14-2021 Urea nitrogen [Mass/Vol] 32 mg/dL 7-18 [facility] Work Phone: Squamous epithelial cells de tection in urine sediment by light microscopyon 12-14-2021 Epithelial cells.squamous LM Ql (Urine sed) 5-10 SEEN /hpf [facility] Work Phone: Thin prep Papanicolaou smear with manual screeningon 12-14-2021 Thin prep Papanicolaou smear with manual screening 106 U/L 15-37 [facility] Work Phone: Comment on above: Slight Hemolysis, Re sult may be falsely increased. Thin prep Papanicolaou smear with manual screening 11 5-15 [facility] Work Phone: Urine blood detectionon 11-23 RBC Ql (U) 10 /ul Negative [facility] Work Phone: RBC Ql (U) 0-5 SEEN /hpf [facility] Work Phone: Urine clarityon 12-14-2021 Clarity (U) Clear Clear [facility] Work Phone: Urine color determinationon 12-14-2021 Color (U) Yellow Yellow [facility] Work Phone: Urine glucose detectionon Glucose Ql (U) Normal mg/dl Normal [facility] Work Phone: Urine leukocyte esterase det ection by dipstickon 12-14-2021 Leukocyte esterase Test strip Ql (U) 25 /ul Negative [facility] Work Phone: Urine pHon 12-14-2021 pH (U) 6.0 [pH] [facility] Work Phone: Urine sediment bacteria coun t by microscopy (number/high power field)on 12-14-2021 Bacteria LM.HPF (Urine sed) [#/Area] RARE /hpf None Seen [facility] Work Phone: Urine specific gravity measu rementon 12-14-2021 Specific gravity (U) [Rel density] 1.015 [facility] Work Phone: Urobilinogen Auto test strip Ql (U)on 12-14-2021 Urobilinogen Ql (U) Normal mg/dl Normal [facility] Work Phone: CNOVon 11-14-2020 CNOV Office Visit (PODIWS ) VANESSA HERNANDEZ ([id number]) 1945 F Date Time Provider Department 11/14/20 [...] Objective: Patient [facility] clinic [facility] Vasc: DP and PT pulses are decreased [...] Latonya Sol DPM Referring Provider: LATONYA SOL [[id number]] Allergies As of Date: 11/14/2020 Noted Allergy [...] by LATONYA SOL DPM on 11/14/20 Normal [facility] Vital Signs Date Time Vital Sign Value Performing Clinician Jojo tadeo 04-18-2025 09:54-0400 Body height 165.[address] Moon Rayo MD Work Phone: [facility] 04-18-2025 09:54-0400 Body mass index (BMI) [Ratio] 39.2 kg/m2 Dr. Moon Rayo MD Work Phone: [facility] 04-18-2025 09:54-0400 Body temperature 98.4 [degF] Dr. Moon Rayo MD Work Phone: [facility] 04-18-2025 09:54-0400 Body weight 107.[address] Moon Rayo MD Work Phone: [facility] 04-18-2025 09:54-0400 Diastolic blood pressure 85 mm[Hg] Dr. Moon Rayo MD Work Phone: [facility] 04-18-2025 09:54-0400 Heart rate 89 /min Dr. Moon Rayo MD Work Phone: [facility] 04-18-2025 09:54-0400 Respiratory rate 16 /min Dr. Moon Rayo MD Work Phone: [facility] 04-18-2025 09:54-0400 SaO2% (BldA) [Mass fraction] 93 % Dr. Moon Rayo MD Work Phone: [facility] 04-18-2025 09:54-0400 Systolic blood pressure 138 mm[Hg] Dr. Moon Rayo MD Work Phone: [facility] 02-21-2025 09:44-0400 Body height 165.[address] Moon Rayo MD Work Phone: [facility] 02-21-2025 09:44-0400 Body mass index (BMI) [Ratio] 38.5 kg/m2 Dr. Moon Rayo MD Work Phone: [facility] 02-21-2025 09:44-0400 Body temperature 98.4 [degF] Dr. Moon Rayo MD Work Phone: [facility] 02-21-2025 09:44-0400 Body weight 104.[address] Moon Rayo MD Work Phone: [facility] 02-21-2025 09:44-0400 Diastolic blood pressure 81 mm[Hg] Dr. Moon Rayo MD Work Phone: [facility] 02-21-2025 09:44-0400 Heart rate 90 /min Dr. Moon Rayo MD Work Phone: [facility] 02-21-2025 09:44-0400 Respiratory rate 16 /min Dr. Moon Rayo MD Work Phone: [facility] 02-21-2025 09:44-0400 SaO2% (BldA) [Mass fraction] 94 % Dr. Moon Rayo MD Work Phone: [facility] 02-21-2025 09:44-0400 Systolic blood pressure 135 mm[Hg] Dr. Moon Rayo MD Work Phone: [facility] 02-18-2025 13:36-0400 Body height 165.[address] Moon Rayo MD Work Phone: [facility] 02-18-2025 13:36-0400 Body mass index (BMI) [Ratio] 38.9 kg/m2 Dr. Moon Rayo MD Work Phone: [facility] 02-18-2025 13:36-0400 Body temperature 98 [degF] Dr. Moon Rayo MD Work Phone: [facility] 02-18-2025 13:36-0400 Body weight 106.[address] Moon Rayo MD Work Phone: [facility] 02-18-2025 13:36-0400 Diastolic blood pressure 87 mm[Hg] Dr. Moon Rayo MD Work Phone: [facility] 02-18-2025 13:36-0400 Heart rate 83 /min Dr. Moon Rayo MD Work Phone: [facility] 02-18-2025 13:36-0400 Respiratory rate 16 /min Dr. Moon Rayo MD Work Phone: [facility] 02-18-2025 13:36-0400 SaO2% (BldA) [Mass fraction] 93 % Dr. Moon Rayo MD Work Phone: [facility] 02-18-2025 13:36-0400 Systolic blood pressure 147 mm[Hg] Dr. Moon Rayo MD Work Phone: [facility] 10-31-2023 01:14-0400 Body temperature 98 [degF] Dr. Moon Rayo Work Phone: [facility] 10-31-2023 01:14-0400 Diastolic blood pressure 60 mm[Hg] Dr. Moon Rayo Work Phone: [facility] 10-31-2023 01:14-0400 Heart rate 85 /min Dr. Moon Rayo Work Phone: [facility] 10-31-2023 01:14-0400 Respiratory rate 18 /min Dr. Moon Rayo Work Phone: [facility] 10-31-2023 01:14-0400 SaO2% (BldA) [Mass fraction] 98 % Dr. Moon Rayo Work Phone: [facility] 10-31-2023 01:14-0400 Systolic blood pressure 158 mm[Hg] Dr. Moon Rayo Work Phone: [facility] 10-30-2023 23:06-0400 Body height 162.[address] Moon Rayo Work Phone: [facility] 10-30-2023 23:06-0400 Body mass index (BMI) [Ratio] 38.7 kg/m2 Dr. Moon Rayo Work Phone: [facility] 10-30-2023 23:06-0400 Body weight 102.[address] Moon Rayo Work Phone: [facility] 10-24-2023 13:58-0400 Body height 162.[address] Moon Rayo Work Phone: [facility] 10-24-2023 13:58-0400 Body mass index (BMI) [Ratio] 38 kg/m2 Dr. Mono Rayo Work Phone: [facility] 10-24-2023 13:58-0400 Body temperature 98.4 [degF] Dr. Moon Rayo Work Phone: [facility] 10-24-2023 13:58-0400 Body weight 100.[address] Moon Rayo Work Phone: [facility] 10-24-2023 13:58-0400 Diastolic blood pressure 77 mm[Hg] Dr. Moon Rayo Work Phone: [facility] 10-24-2023 13:58-0400 Heart rate 97 /min Dr. Moon Rayo Work Phone: [facility] 10-24-2023 13:58-0400 Respiratory rate 18 /min Dr. Moon Rayo Work Phone: [facility] 10-24-2023 13:58-0400 SaO2% (BldA) [Mass fraction] 94 % Dr. Moon Rayo Work Phone: [facility] 10-24-2023 13:58-0400 Systolic blood pressure 136 mm[Hg] Dr. Moon Rayo Work Phone: [facility] 10-06-2023 13:51-0400 Body mass index (BMI) [Ratio] 39.4 kg/m2 Dr. Moon Rayo Work Phone: [facility] 10-06-2023 13:51-0400 Body temperature 98.1 [degF] Dr. Moon Rayo Work Phone: [facility] 10-06-2023 13:51-0400 Body weight 104.[address] Moon Rayo Work Phone: [facility] 10-06-2023 13:51-0400 Diastolic blood pressure 79 mm[Hg] Dr. Moon Rayo Work Phone: [facility] 10-06-2023 13:51-0400 Heart rate 85 /min Dr. Moon Rayo Work Phone: [facility] 10-06-2023 13:51-0400 SaO2% (BldA) [Mass fraction] 92 % Dr. Moon Rayo Work Phone: [facility] 10-06-2023 13:51-0400 Systolic blood pressure 130 mm[Hg] Dr. Moon Rayo Work Phone: [facility] 09-28-2023 10:46-0500 Body temperature 97.6 [degF] Dr. Moon Rayo Work Phone: [facility] 09-28-2023 10:46-0500 Diastolic blood pressure 73 mm[Hg] Dr. Moon Rayo Work Phone: [facility] 09-28-2023 10:46-0500 Heart rate 81 /min Dr. Moon Rayo Work Phone: [facility] 09-28-2023 10:46-0500 Respiratory rate 14 /min Dr. Moon Rayo Work Phone: [facility] 09-28-2023 10:46-0500 SaO2% (BldA) [Mass fraction] 96 % Dr. Moon Rayo Work Phone: [facility] 09-28-2023 10:46-0500 Systolic blood pressure 121 mm[Hg] Dr. Moon Rayo Work Phone: [facility] 09-28-2023 02:25-0500 Body mass index (BMI) [Ratio] 39.2 kg/m2 Dr. Moon Rayo Work Phone: [facility] 09-27-2023 09:31-0500 Body height 162.[address] Moon Rayo Work Phone: [facility] 09-27-2023 09:31-0500 Body weight 103.[address] Moon Rayo Work Phone: [facility] 09-26-2023 15:33-0500 Body temperature 97.5 [degF] Dr. Moon Rayo Work Phone: [facility] 09-26-2023 15:33-0500 Diastolic blood pressure 81 mm[Hg] Dr. Moon Rayo Work Phone: [facility] 09-26-2023 15:33-0500 Heart rate 86 /min Dr. Moon Rayo Work Phone: [facility] 09-26-2023 15:33-0500 Respiratory rate 16 /min Dr. Moon Rayo Work Phone: [facility] 09-26-2023 15:33-0500 SaO2% (BldA) [Mass fraction] 97 % Dr. Moon Rayo Work Phone: [facility] 09-26-2023 15:33-0500 Systolic blood pressure 143 mm[Hg] Dr. Moon Rayo Work Phone: [facility] 09-26-2023 15:18-0500 Body height 162.[address] Moon Rayo Work Phone: [facility] 09-26-2023 15:18-0500 Body mass index (BMI) [Ratio] 39.2 kg/m2 Dr. Moon Rayo Work Phone: [facility] 09-26-2023 15:18-0500 Body weight 103.[address] Moon Rayo Work Phone: [facility] 08-22-2023 13:38-0500 Body mass index (BMI) [Ratio] 40.2 kg/m2 Dr. Moon Rayo Work Phone: [facility] 08-22-2023 13:38-0500 Body temperature 97.1 [degF] Dr. Moon Rayo Work Phone: [facility] 08-22-2023 13:38-0500 Body weight 106.[address] Moon Rayo Work Phone: [facility] 08-22-2023 13:38-0500 Diastolic blood pressure 64 mm[Hg] Dr. Moon Rayo Work Phone: [facility] 08-22-2023 13:38-0500 Heart rate 18 /min Dr. Moon Rayo Work Phone: [facility] 08-22-2023 13:38-0500 Respiratory rate 18 /min Dr. Moon Rayo Work Phone: [facility] 08-22-2023 13:38-0500 SaO2% (BldA) [Mass fraction] 94 % Dr. Moon Rayo Work Phone: [facility] 08-22-2023 13:38-0500 Systolic blood pressure 103 mm[Hg] Dr. Moon Rayo Work Phone: [facility] 08-16-2023 13:35-0500 Body temperature 98.5 [degF] Dr. Moon Rayo Work Phone: [facility] 08-16-2023 13:35-0500 Diastolic blood pressure 56 mm[Hg] Dr. Moon Rayo Work Phone: [facility] 08-16-2023 13:35-0500 Heart rate 101 /min Dr. Moon Rayo Work Phone: [facility] 08-16-2023 13:35-0500 Respiratory rate 18 /min Dr. Moon Rayo Work Phone: [facility] 08-16-2023 13:35-0500 SaO2% (BldA) [Mass fraction] 95 % Dr. Moon Rayo Work Phone: [facility] 08-16-2023 13:35-0500 Systolic blood pressure 109 mm[Hg] Dr. Moon Rayo Work Phone: [facility] 08-16-2023 05:50-0500 Body mass index (BMI) [Ratio] 31.4 kg/m2 Dr. Moon Rayo Work Phone: [facility] 08-16-2023 05:50-0500 Body weight 83.[address] Moon Rayo Work Phone: [facility] 08-14-2023 10:59-0500 Body height 162.[address] Moon Rayo Work Phone: [facility] 08-13-2023 22:15-0500 Diastolic blood pressure 66 mm[Hg] Dr. Moon Rayo Work Phone: [facility] 08-13-2023 22:15-0500 Heart rate 80 /min Dr. Moon Rayo Work Phone: [facility] 08-13-2023 22:15-0500 Respiratory rate 19 /min Dr. Mono Rayo Work Phone: [facility] 08-13-2023 22:15-0500 Systolic blood pressure 107 mm[Hg] Dr. Moon Rayo Work Phone: [facility] 08-13-2023 19:17-0500 Body height 162.[address] Moon Rayo Work Phone: [facility] 08-13-2023 19:17-0500 Body mass index (BMI) [Ratio] 40.4 kg/m2 Dr. Moon Rayo Work Phone: [facility] 08-13-2023 19:17-0500 Body temperature 97.3 [degF] Dr. Moon Rayo Work Phone: [facility] 08-13-2023 19:17-0500 Body weight 106.[address] Moon Rayo Work Phone: [facility] 07-28-2023 14:15-0500 Body height 162.[address] Moon Rayo Work Phone: [facility] 07-28-2023 14:15-0500 Body mass index (BMI) [Ratio] 41.2 kg/m2 Dr. Moon Rayo Work Phone: [facility] 07-28-2023 14:15-0500 Body temperature 96.3 [degF] Dr. Moon Rayo Work Phone: [facility] 07-28-2023 14:15-0500 Body weight 108.[address] Moon Rayo Work Phone: [facility] 07-28-2023 14:15-0500 Diastolic blood pressure 71 mm[Hg] Dr. Moon Rayo Work Phone: [facility] 07-28-2023 14:15-0500 Heart rate 80 /min Dr. Moon Rayo Work Phone: [facility] 07-28-2023 14:15-0500 Respiratory rate 16 /min Dr. Moon Rayo Work Phone: [facility] 07-28-2023 14:15-0500 SaO2% (BldA) [Mass fraction] 92 % Dr. Moon Rayo Work Phone: [facility] 07-28-2023 14:15-0500 Systolic blood pressure 107 mm[Hg] Dr. Moon Rayo Work Phone: [facility] 04-13-2023 11:10-0400 Body height 162.[address] Moon Rayo Work Phone: [facility] 04-13-2023 11:10-0400 Body mass index (BMI) [Ratio] 42 kg/m2 Dr. Moon Rayo Work Phone: [facility] 04-13-2023 11:10-0400 Body temperature 98.2 [degF] Dr. Moon Rayo Work Phone: [facility] 04-13-2023 11:10-0400 Body weight 111.[address] Moon Rayo Work Phone: [facility] 04-13-2023 11:10-0400 Diastolic blood pressure 75 mm[Hg] Dr. Moon Rayo Work Phone: [facility] 04-13-2023 11:10-0400 Heart rate 77 /min Dr. Moon Rayo Work Phone: [facility] 04-13-2023 11:10-0400 Respiratory rate 18 /min Dr. Moon Rayo Work Phone: [facility] 04-13-2023 11:10-0400 SaO2% (BldA) [Mass fraction] 94 % Dr. Moon Rayo Work Phone: [facility] 04-13-2023 11:10-0400 Systolic blood pressure 123 mm[Hg] Dr. Moon Rayo Work Phone: [facility] 07-15-2022 13:17-0500 Body temperature 98.1 [degF] Dr. Moon Rayo Work Phone: [facility] Work Phone: 07-15-2022 13:17-0500 Body weight 111.[address] Moon Rayo Work Phone: [facility] Work Phone: 07-15-2022 13:17-0500 Diastolic blood pressure 85 mm[Hg] Dr. Moon Rayo Work Phone: [facility] Work Phone: 07-15-2022 13:17-0500 Heart rate 90 /min Dr. Moon Rayo Work Phone: [facility] Work Phone: 07-15-2022 13:17-0500 Respiratory rate 18 /min Dr. Moon Rayo Work Phone: [facility] Work Phone: 07-15-2022 13:17-0500 SaO2% (BldA) [Mass fraction] 95 % Dr. Moon Rayo Work Phone: [facility] Work Phone: 07-15-2022 13:17-0500 Systolic blood pressure 158 mm[Hg] Dr. Moon Rayo Work Phone: [facility] Work Phone: 07-13-2022 09:11-0500 Body temperature 98.3 [degF] Dr. Moon Rayo Work Phone: [facility] Work Phone: 07-13-2022 09:11-0500 Diastolic blood pressure 90 mm[Hg] Dr. Moon Rayo Work Phone: [facility] Work Phone: 07-13-2022 09:11-0500 Heart rate 82 /min Dr. Moon Rayo Work Phone: [facility] Work Phone: 07-13-2022 09:11-0500 Respiratory rate 18 /min Dr. Moon Rayo Work Phone: [facility] Work Phone: 07-13-2022 09:11-0500 SaO2% (BldA) [Mass fraction] 98 % Dr. Moon Rayo Work Phone: [facility] Work Phone: 07-13-2022 09:11-0500 Systolic blood pressure 159 mm[Hg] Dr. Moon Rayo Work Phone: [facility] Work Phone: 07-13-2022 07:02-0500 Body height 162.[address] Moon Rayo Work Phone: [facility] Work Phone: 07-13-2022 07:02-0500 Body mass index (BMI) [Ratio] 43.2 kg/m2 Dr. Moon Rayo Work Phone: [facility] Work Phone: 07-13-2022 07:02-0500 Body weight 114.[address] Moon Rayo Work Phone: [facility] Work Phone: 12-14-2021 18:52-0400 Diastolic blood pressure 74 mm[Hg] Dr. Moon Rayo Work Phone: [facility] Work Phone: 12-14-2021 18:52-0400 Heart rate 100 /min Dr. Moon Rayo Work Phone: [facility] Work Phone: 12-14-2021 18:52-0400 Respiratory rate 20 /min Dr. Moon Rayo Work Phone: [facility] Work Phone: 12-14-2021 18:52-0400 SaO2% (BldA) [Mass fraction] 98 % Dr. Moon Rayo Work Phone: [facility] Work Phone: 12-14-2021 18:52-0400 Systolic blood pressure 115 mm[Hg] Dr. Moon Rayo Work Phone: [facility] Work Phone: 12-14-2021 14:02-0400 Body height 162.[address] Moon Rayo Work Phone: [facility] Work Phone: 12-14-2021 14:02-0400 Body mass index (BMI) [Ratio] 41.7 kg/m2 Dr. Moon Rayo Work Phone: [facility] Work Phone: 12-14-2021 14:02-0400 Body temperature 97.5 [degF] Dr. Moon Rayo Work Phone: [facility] Work Phone: 12-14-2021 14:02-0400 Body weight 110.[address] Moon Rayo Work Phone: [facility] Work Phone: 11-02-2021 08:09-0400 Body mass index (BMI) [Ratio] 41.7 kg/m2 Dr. Moon Rayo Work Phone: [facility] Work Phone: 11-02-2021 08:09-0400 Body temperature 96 [degF] Dr. Moon Rayo Work Phone: [facility] Work Phone: 11-02-2021 08:09-0400 Body weight 110.[address] Moon Rayo Work Phone: [facility] Work Phone: 11-02-2021 08:09-0400 Diastolic blood pressure 80 mm[Hg] Dr. Moon Rayo Work Phone: [facility] Work Phone: 11-02-2021 08:09-0400 Heart rate 81 /min Dr. Moon Rayo Work Phone: [facility] Work Phone: 11-02-2021 08:09-0400 Respiratory rate 18 /min Dr. Moon Rayo Work Phone: [facility] Work Phone: 11-02-2021 08:09-0400 SaO2% (BldA) [Mass fraction] 97 % Dr. Moon Rayo Work Phone: [facility] Work Phone: 11-02-2021 08:09-0400 Systolic blood pressure 124 mm[Hg] Dr. Moon Rayo Work Phone: [facility] Work Phone: Encounters Encounter Date Encounter Type Care Provider Facility Start: 05-29-2025 ambulatory Moon Rayo Facility :[facility] Start: 05-24-2025 End: 05-24-2025 ambulatory Alvin Steele Facility:[facility] Start: 04-18-2025 End: 04-18-[address] Moon Rayo MD -[facility] Work Phone: Start: 04-18-2025 End: 04-18-[address] Moon Rayo MD Work Phone: -[facility] Start: 03-04-2025 ambulatory Moon Rayo Facility :[facility] Start: 02-21-2025 End: 02-21-[address] Moon Rayo MD -[facility] Work Phone: Start: 02-21-2025 End: 02-21-[address] Moon Rayo MD Work Phone: -[facility] Start: 02-18-2025 End: 02-18-[address] Moon Rayo MD -[facility] Work Phone: Start: 02-18-2025 End: 02-18-[address] Moon Rayo MD Work Phone: -[facility] Start: 01-28-2025 End: 01-28-[address] Moon Rayo MD Work Phone: -Physical Therapy Start: 01-28-2025 End: 01-28-[address] Moon Rayo MD -Physical Therapy Work Phone: Start: 01-22-2025 Non-patient / Non-visit Dr. Jojo lin MD -[facility] Work Phone: Start: 09-03-2024 End: 09-03-2024 ambulatory Moon Rayo Facility:[facility] Start: 08-26-2024 End: 08-26-2024 Emergency department patient visit Moon Rayo Facility:[facility] Start: 07-14-2024 End: 07-14-2024 Emergency department patient visit Moon Rayo Facility:[facility] Start: 05-28-2024 End: 05-28-2024 ambulatory Moon Rayo Facility:[facility] Start: 10-30-2023 End: 10-31-2023 Emergency department patient visit Dr. Moon Rayo Work Phone: [facility] Work Phone: Start: 10-30-2023 End: 10-31-2023 Dr. Moon Rayo Work Phone: [facility]Emergency Department Work Phone: Start: 10-25-2023 End: 10-30-2023 ambulatory MOON RAYO MD Facility:[facility] Start: 10-25-2023 End: 10-29-2023 Outreach Lab MOON RAYO MD [facility] Start: 10-24-2023 End: 10-24-[address] Moon Rayo Work Phone: [facility] Work Phone: Start: 10-24-2023 End: 10-24-2023 Dr. Moon Rayo Work Phone: [facility] Work Phone: Start: 10-12-2023 End: 10-12-2023 Dr. Moon Rayo Work Phone: [facility] Work Phone: Start: 10-04-2023 Dr. [facility]: Start: 10-03-2023 Dr. Moon Waldrop hner Work Phone: [facility] Start: 09-29-2023 Dr. Moon Waldrop hner Work Phone: [facility] Start: 09-28-2023 Dr. Moon Waldrop hner Work Phone: [facility] Work Phone: Start: 09-27-2023 Dr. Moon Waldrop hner Work Phone: [facility] Work Phone: Start: 09-27-2023 Dr. Moon Waldrop hner Work Phone: [facility] Start: 09-26-2023 End: 09-28-2023 Evaluation and management of inpatient Dr. Moon Rayo Work Phone: [facility] Work Phone: Start: 09-26-2023 End: 09-28-2023 Dr. Moon Rayo Work Phone: [facility]Pro[facility] Work Phone: Start: 08-22-2023 End: 08-22-2023 Dr. Moon Rayo Work Phone: [facility] Work Phone: Start: 08-16-2023 Non-patient / Non-visit Dr. Nara Rayo Work Phone: [facility] Work Phone: Start: 08-16-2023 Dr. Moon Waldrop hner Work Phone: [facility] Work Phone: Start: 08-15-2023 Non-patient / Non-visit Dr. Nara Rayo Work Phone: [facility] Work Phone: Start: 08-15-2023 Dr. Moon Waldrop hner Work Phone: [facility] Work Phone: Start: 08-15-2023 Non-patient / Non-visit Dr. Nara Rayo Work Phone: [facility] Start: 08-15-2023 Dr. Moon Waldrop hner Work Phone: [facility] Start: 08-14-2023 Non-patient / Non-visit Dr. Nara Rayo Work Phone: [facility] Work Phone: Start: 08-14-2023 Dr. Moon ochoa Work Phone: [facility] Work Phone: Start: 08-13-2023 End: 08-16-2023 Dr. Moon Rayo Work Phone: [facility] Work Phone: Start: 08-13-2023 End: 08-16-2023 Evaluation and management of inpatient Dr. Moon Rayo Work Phone: [facility] Work Phone: Start: 08-13-[address] Meseret Rayo Work Phone: [facility] Work Phone: Start: 08-01-2023 End: 08-01-[address] Moon Rayo Work Phone: [facility] Work Phone: Start: 08-01-2023 End: 08-01-[address] [facility] Start: 08-01-2023 End: 08-01-2023 Dr. [facility] Ray[facility] Start: 07-28-2023 End: 07-28-[address] Moon Rayo Work Phone: [facility] Work Phone: Start: 07-28-2023 End: 07-28-2023 Dr. Moon Rayo Work Phone: [facility] Work Phone: Start: 04-27-2023 End: 04-27-2023 Emergency department patient visit Dr. Moon Rayo Work Phone: [facility] Work Phone: Start: 04-13-2023 Non-patient / Non-visit Dr. Nara Rayo Work Phone: [facility] Start: 04-13-2023 End: 04-13-[address] Moon Rayo Work Phone: [facility] Work Phone: Start: 04-13-2023 End: 04-13-[address] [facility]: Start: 04-13-2023 End: 04-13-[address] Moon Rayo Work Phone: [facility] Work Phone: Start: 07-15-2022 End: 07-15-[address] Moon Rayo Work Phone: [facility] Work Phone: Start: 07-15-2022 End: 07-15-[address] Moon Rayo Work Phone: [facility] [place] Start: 07-15-2022 End: 07-15-[address] Moon Rayo Work Phone: [facility] Start: 07-13-2022 End: 07-13-2022 Emergency department patient visit Dr. Moon Rayo Work Phone: [facility] Start: 06-14-2022 Non-patient / Non-visit Dr. Nara Rayo Work Phone: [facility] Start: 12-14-2021 End: 12-14-2021 Emergency department patient visit Dr. Moon Rayo Work Phone: [facility] Start: 11-02-2021 End: 11-02-[address] Moon Rayo Work Phone: [facility] Procedures Date Procedure Procedure Detail [...] Date Care Activity Detail Author Start: 10-31-2023 [facility] Start: 10-12-2023 Patient referral [facility] Work Phone: Start: 09-28-2023 Patient discharge [facility] Start: 09-27-2023 Thyroid stimulating hormone measurement [facility] Start: 09-27-2023 [facility] Start: 09-26-2023 Measurement of occul t blood in stool specimen using immunoassay [facility] Start: 09-26-2023 Assessment of risk o f venous thromboembolism [facility] Start: 09-26-2023 Cardiac monitoring [facility] Start: 09-26-2023 Catheterization of vein [facility] Start: 09-26-2023 Continuous pulse oximetry [facility] Start: 09-26-2023 Elevation of head of bed [facility] Start: 09-26-[address] [facility] Start: 09-26-[address] anned interventions [facility] Start: 09-26-2023 Incentive spirometry [facility] Start: 09-26-2023 Insertion of cathete r into peripheral vein [facility] Start: 09-26-2023 Measuring intake and output [facility] Start: 09-26-2023 Notification of physician [facility] Start: 09-26-2023 Oxygen therapy [facility] Start: 09-26-2023 Patient referral to dietitian [facility] Start: 09-26-2023 Providing care accor ding to standard [facility] Start: 09-26-2023 Provision of activit y privileges [facility] Start: 09-26-2023 Referral to occupati onal therapist [facility] Start: 09-26-2023 Referral to service [facility] Start: 09-26-2023 End: 09-26-2023 Speech therapy assessment [facility] Start: 09-26-2023 Telemedicine consult ation with patient [facility] Start: 09-26-2023 Tobacco use cessatio n education [facility] Start: 09-26-2023 [facility] Start: 09-26-2023 Vital signs measurements [facility] Start: 09-26-2023 MRI of brain without contrast [facility] Start: 09-26-2023 Following clinical p athway protocol [facility] Start: 09-26-2023 Verification routine [facility] Start: 09-26-2023 Admission procedure [facility] Start: 08-16-2023 Referral to service [facility] Start: 08-16-2023 Patient discharge [facility] Start: 08-14-2023 Thyroid stimulating hormone measurement [facility] Start: 08-14-2023 [facility] Start: 08-13-2023 Following clinical p athway protocol [facility] Start: 08-13-2023 Assessment of risk o f venous thromboembolism [facility] Start: 08-13-2023 Contact precautions [facility] Start: 08-13-2023 Insertion of cathete r into peripheral vein [facility] Start: 08-13-2023 Measuring intake and output [facility] Start: 08-13-2023 Oxygen therapy [facility] Start: 08-13-2023 Providing care accor ding to standard [facility] Start: 08-13-2023 Provision of activit y privileges [facility] Start: 08-13-2023 Referral to occupati onal therapist [facility] Start: 08-13-2023 Referral to service [facility] Start: 08-13-2023 [facility] Start: 08-13-2023 Verification routine [facility] Start: 08-13-2023 Admission procedure [facility] Start: 08-13-2023 [facility] Start: 08-13-2023 Bacteria identified in Urine by Culture [facility] Start: 08-13-2023 Patient referral to dietitian [facility] Start: 04-27-2023 Simple repair scalp/neck/ax/genit/trunk 2.5cm/< RPR S/N/AX/GEN/TRNK 2.5CM/< [facility] Start: 04-13-2023 Patient referral [facility] Work Phone: Alanine aminotransfe rase [Enzymatic activity/volume] in Serum or Plasma [facility] Alanine aminotransfe rase [Enzymatic activity/volume] in Serum or Plasma [facility] Albumin [Mass/volume ] in Serum or Plasma [facility] Albumin [Mass/volume ] in Serum or Plasma [facility] Alkaline phosphatase [Enzymatic activity/volume] in Serum or Plasma [facility] Alkaline phosphatase [Enzymatic activity/volume] in Serum or Plasma [facility] Anion gap measurement [facility] Anion gap measurement [facility] Aspartate aminotrans ferase [Enzymatic activity/volume] in Serum or Plasma [facility] Aspartate aminotrans ferase [Enzymatic activity/volume] in Serum or Plasma [facility] Bilirubin, total measurement [facility] Bilirubin, total measurement [facility] BUN/Creatinine ratio [facility] BUN/Creatinine ratio [facility] C reactive protein [Mass/volume] in Serum or Plasma [facility] Calcium [Mass/volume ] in Serum or Plasma [facility] Calcium [Mass/volume ] in Serum or Plasma [facility] Carbon dioxide, tota l [Moles/volume] in Serum or Plasma [facility] Carbon dioxide, tota l [Moles/volume] in Serum or Plasma [facility] Cardiac event recording [facility] Chloride [Moles/volu me] in Serum or Plasma [facility] Chloride [Moles/volu me] in Serum or Plasma [facility] Cholesterol [Mass/vo lume] in Serum or Plasma [facility] Cholesterol in HDL [Mass/volume] in Serum or Plasma [facility] Cholesterol in LDL [Mass/volume] in Serum or Plasma [facility] Creatinine [Moles/vo lume] in Serum or Plasma [facility] Creatinine [Moles/vo lume] in Serum or Plasma [facility] Erythrocyte mean cor puscular volume determination [facility] Erythrocyte mean cor puscular volume determination [facility] Erythrocyte sediment ation rate [facility] Ferritin [Mass/volum e] in Serum or Plasma [facility] Glucose [Mass/volume ] in Serum or Plasma [facility] Glucose [Mass/volume ] in Serum or Plasma [facility] Hematocrit [Volume F raction] of Blood [facility] Hematocrit [Volume F raction] of Blood [facility] Hemoglobin [Mass/vol ume] in Blood [facility] Hemoglobin [Mass/vol ume] in Blood [facility] Hemoglobin A1c/Hemoglobin.total in Blood [facility] Iron [Mass/mass] in Unspecified specimen [facility] Iron and Iron bindin g capacity panel - Serum or Plasma [facility] Iron saturation [Mas s Fraction] in Serum or Plasma [facility] Leukocytes [#/volume ] in Blood [facility] Leukocytes [#/volume ] in Blood [facility] Magnesium [Mass/volu me] in Serum or Plasma [facility] Magnesium [Mass/volu me] in Serum or Plasma [facility] Mean corpuscular hem oglobin concentration determination [facility] Mean corpuscular hem oglobin concentration determination [facility] Mean corpuscular hem oglobin determination [facility] Mean corpuscular hem oglobin determination [facility] Measurement of renal function [facility] Measurement of renal function [facility] Neutrophil count [facility] Neutrophil count [facility] Neutrophil percent differential count [facility] Neutrophil percent differential count [facility] Patient Education [facility] Work Phone: Patient referral [facility] Work Phone: Platelets [#/volume] in Blood [facility] Platelets [#/volume] in Blood [facility] Potassium [Moles/vol ume] in Serum or Plasma [facility] Potassium [Moles/vol ume] in Serum or Plasma [facility] Red blood cell count [facility] Red blood cell count [facility] Red cell distributio n width determination [facility] Red cell distributio n width determination [facility] Serum inorganic phos phate measurement [facility] Serum inorganic phos phate measurement [facility] Sodium [Moles/volume ] in Serum or Plasma [facility] Sodium [Moles/volume ] in Serum or Plasma [facility] Total protein measurement [facility] Total protein measurement [facility] Triglycerides measurement [facility] Urea nitrogen [Mass/ volume] in Serum or Plasma [facility] Urea nitrogen [Mass/ volume] in Serum or Plasma [facility] VLDL cholesterol measurement [facility] Immunizations Immunization Date Immunization Notes Care Provider Fa [facility] 07-13-2022 tetanus toxoid, redu weston diphtheria toxoid, and acellular pertussis vaccine, adsorbed Dr. Moon Rayo Work Phone: [facility] 01-05-2022 tetanus toxoid, redu weston diphtheria toxoid, and acellular pertussis vaccine, adsorbed Dr. Moon Rayo Work Phone: [facility] 07-09-2021 Covid (Moderna) Dr. Moon brandon Work Phone: [facility] 06-04-[address] Moon Rayo Work Phone: [facility] 02-09-[address] Moon Rayo Work Phone: [facility] 12-12-2020 Covid (Moderna) Dr. Moon brandon Work Phone: [facility] 11-14-2020 Covid (Moderna) Dr. Moon brandon Work Phone: [facility] 04-23-2020 influenza, injectabl e, quadrivalent, preservative free Dr. Moon Rayo Work Phone: [facility] 04-23-2020 influenza, seasonal, injectable Dr. Moon Rayo Work Phone: [facility] Work Phone: 04-23-2020 Seasonal, quadrivale nt, recombinant, injectable influenza vaccine, preservative free Dr. Moon Rayo Work Phone: [facility] 04-23-2020 Fluad Quad (65yr up)(PF) 60 mcg (15 mcg x 4)/0.5mL IM syringe (flu vac Dr. Moon Rayo Work Phone: [facility] Work Phone: 04-30-2019 Influenza, high dose seasonal Dr. Moon Rayo MD Work Phone: [facility] 04-30-2019 influenza, high dose seasonal, preservative-free Dr. Moon Rayo Work Phone: [facility] Payers Date Payer Category Payer Unknown [id number] 2024 Unknown [id number] 2023 Self-pay [id number] Unknown [id number] 2.16.8 [id number] Medicaid [id number] Medicare [id number] Medicare [id number] Unknown [id number] Unknown [id number] 2.16.8 [id number] Unknown [id number] 2.16.8 [id number] Unknown [id number] 2.16.8 [id number] Unknown [id number] 2.16.8 [id number] Unknown [id number] 2.16.8 [id number] Unknown [id number] 2.16.8 [id number] Unknown [id number] 2.16.8 [id number] Unknown [id number] 2.16.8 [id number] Unknown [id number] 2.16.8 [id number] Unknown [id number] 2.16.8 [id number] Unknown [id number] 2.16.8 [id number] Unknown [id number] 2.16.8 [id number] Social History Date Type Detail Facility Start: 12-14-2021 End: 10-30-2023 Tobacco smoking status NHIS Unknown if ever smoked [facility] Start: 09-24-[address] [facility] Start: 09-24-[address] [facility] Start: 12-01-[address] [facility] Start: 1945 Sex Assigned At Female [facility] Tobacco smoking status No Smokin g Status Entered [facility] Start: 08-31-2024 Tobacco smoking stat us ILIS Ex-smoker (finding) [facility] Sex Female [facility] Medical Equipment Procedure Code Equipment Code Equipment [...] Assessment Result Facility 09-28-[address] [facility] Work Phone: 08-16-[address] [facility] Work Phone: 08-16-2023 Functional status With Assist of 2 [facility] Work Phone: Mental Status Date Assessment Result Facility 10-30-2023 Cognitive function Awake;Alert;A ppropriate;Follow s Commands [facility] Work Phone: 09-28-2023 Cognitive function Voice/Name [facility] Work Phone: 09-26-2023 Cognitive function Voice/Name [facility] Work Phone: 08-16-2023 Cognitive function Voice/Name [facility] Work Phone: 08-13-2023 Cognitive function Level Of Cons ciousness Awake;Alert;Appropriate;Follow s Commands [facility] Work Phone: Clinical Notes 09-16-2020 to 04-18-2025 Note Date & Type Note Facility 04-18-2025 Progress note [facility] 02-18-2025 Evaluation note Diagnosis Onset Date Resolution Bilateral lower extremity edema acute February 18, 2025 1:25pm Subconjunctival hemorrhage acute February 18, 2025 1:25pm Cellulitis resolved February 18 1:25pm [facility] Work Phone: 1(646) 643-168407-28-2025 Evaluation note* Diagnosis Onset Date Resolution Status Admit Date Bilateral lower extremity edema acute February 18, 2025 1:25pm Subconjunctival hemorrhage acute February 18, 2025 1:25pm Cellulitis resolved February 18 1:25pm Bilateral lower extremity edema acute February 21, 2025 9:26am Cellulitis resolved February 21 9:26am Bilateral occipital neuralgia acute April 18, 2025 9:21am Neck pain noneactive March 9:21am [facility] Work Phone: 1(750) 993-983107-07-2025 Discharge summary [facility] Physical Therapy [address] [place] [address] / REHABILITATION SERVICES DISCHARGE SUMMARY MR#: [id number] Acct: [id number] Name: VANESSA HERNANDEZ Rep #: [id number] : 1945 79 From: Dulce Maria An [...] please feel free to call me at [phone]. Thank you for the referral of thispatient. Sincerely, Dulce Maria Lance, MPT Balance/Gait/Functional tests Balance/Special Test Scores Lower Extremity Functional Score: 44 Improvement % Improvement: 90 01/28/25 0958 CC: Dr. Moon Rayo MD ~ Signed [facility]04-07-2024 Discharge summary Author Cam Delgado [facility] October 31, 2023 12:53am Note Date/Time October 30, 2023 11:2 7pm [facility] Medical Records Department [address] [place] [address] Emergency Department Summary 10/30/23 MR#: [id number] Acct: [id number] Name: VANESSA HERNANDEZ Rep #:[id number] : 1945 78 From: Cam Delgado MD [...] but no different and no injury there. [facility] Medical History Abdominal pain Anxiety Asthma Chronic [...] your Primary Care Provider. Call [facility] ([phone]) or report to the closest Emergency Room. Call 911 if necessary. 10/31/2352 <Electronically signed by Cam Delgado MD> Cosigner Signature (if applicable): CC: Dr. Moon Rayo MD ~ Signed [facility] Work Phone: 1(164) 486-544003-06-2024 Discharge summary Author [facility] September 28, 2023 2:53pm Note Date/Time September 28, 2023 2:53 pm [facility] Medical Records Department [address] [place] [address] Discharge Summary 09/28/23 1452 MR#: [id number] Acct: [id number] Name: VANESSA HERNANDEZ Rep #:[id number] : 1945 78 From: Hima Gonzalez [facility] PCP: Dr. Moon Rayo MD Status:ADM IN Location: [place] [address] Providers Date of Admission: 09/26/23 Date of [...] is a 78-year-old female who presented to [facility] ED on 09/26/2023 with dysarthria, right facial droop and right facial numbness/tingling concerning for stroke. Hospital course as noted below. Patient discharged to longterm facility in stable condition on 09/27. 1. [...] ? PT/OT/case management followed. Patient discharged to longterm facility in stable condition on 09/27. ? [...] abnormalities. 2. Age-related changes. Electronically Signed: Tay Caruso MD at 5:33 EST , D/C Instructions [...] in before D/C Order can be placed): Snf Facility Charges/Coding Visit Charges Inpatient E&M: 50684 Disch Hosp >30min 09/28/23 1453 <Electronically signed by Hima Zimmer DO> Cosigner Signature (if applicable): CC: Dr. Hima Zimmer DO; Dr. Moon Rayo MD~ Signed [facility] Work Phone: 1(780) 615-481403-06-2024 Discharge summary Author Hima Zimmer [facility] September 28, 2023 2:52pm Note Date/Time September 28, 2023 2:49 pm [facility] Medical Records Department [address] [place] [address] [place] [address] Instructions for Home/Discharge Instructions 09/28/23 1449 MR#: [id number] Acct: [id number] Name: VANESSA HERNANDEZ Rep #:[id number] : 1945 78 From: Hima pham DO [...] in before D/C Order can be placed): Snf Facility 09/28/23 1452<Electronically signed by Hima Zimmer DO>Hima Zimmer DO CC: Beena Wagner; Love Handy; Ha Montes; Leeann Killian MD; Parul Lagos MD; Nav Harding MD; Dr. Sonal Vivar MD; Dr. Mandeep Hannon MD; Dr. Maile MD; Dr. Adrienne Miranda MD; Dr. Moustapha Tran MD; Dr. Mona Chery DO; Dr. Moon Rayo MD; Dr. Latonya Renee DO; Dr. Trisha Burdne MD; Dr. Addie Guardado MD; Dr. Sukhdev Ashraf MD; Dr. Kevin Gonzalez MD; Dr. Collette Chery MD; Shruti Spencer DO; Will Locke MD ~ Signed [facility] Work Phone: 1(755) 359-767103-06-2024 Discharge summary Author Hima Mesha [facility] September 28, 2023 2:49pm Note Date/Time September 28, 2023 2:49 pm [facility] Medical Records Department [address] [place] [address] Transfer to [facility] MR#: [id number] Acct: [id number] Name: VANESSA HERNANDEZ Rep #:[id number] : 1945 78 From: Hima pham DO PCP: Dr. Moon Rayo MD Status:ADM IN Certification of patient admission REQUIRED AT TIME OF ADMISSION. I CERTIFY THAT POST-HOSPITAL ECF SERVICES ARE REQUIRED TO BE GIVEN ON AN IN-PATIENT BASIS BECAUSE OF THE ABOVE NAMED PATIENT'S NEED FOR FPC CARE ON A CONTINUING BASIS FOR THE [...] is a 78-year-old female who presented to [facility] ED on 09/26/2023 with dysarthria, right facial droop and right facial numbness/tingling concerning for stroke. Hospital course as noted below. Patient discharged to longterm facility in stable condition on 09/27. 1. [...] ? PT/OT/case management followed. Patient discharged to longterm facility in stable condition on 09/27. ? [...] Provider] - Charges/Coding Visit Charges Inpatient E&M: 12325 Disch Hosp >30min 09/28/23 1449 <Electronically signed [...] Shruti Spencer DO; Will Locke MD ~ [facility] Work Phone: 1(579) 975-891303-05-2024 Consult note Author [facility] September 27, 2023 2:02pm Note Date/Time September 27, 2023 12:3 6pm [facility] Medical Records Department [address] [place] [address] Consultation - Neurology 09/27/23 1235 MR#: [id number] Acct: [id number] Name: VANESSA HERNANDEZ Rep #:[id number] : 1945 78 From: Addie Wesley PCP: Dr. 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 No LVO on CTA.Started ASA/Plavix. [facility] Medical History (Updated 09/26/23 @ 15:26 by [...] (Auto) 74.3 H, Lymph % (Auto)12.2 L, Barron % (Auto) 10.3 H, Eos % (Auto) [...] % (Auto) 64.8, Lymph % (Auto) 20.9, Barron % (Auto) 9.8, Eos % (Auto) 3.8, [...] 13:36 EST Reading Location ID and State: [facility] / ID Tel , Service support , ADDENDUM: 09/26/23 1354 IMPRESSION: No acute intracranial process identified. Chronic involutional and white matter changes. N.B. : The above Results were Read Back by Yvonne Florian MD to Joshua Santiago MD, and understanding confirmed on 09/26/2023 13:47:48 (ET). Electronically Signed: Yvonne Florian MD at 13:36 EST Reading Location ID and State: [facility] / ID Tel , Service support , Head/Neck CTA 09/26/23 13:24 IMPRESSION: No evidence for significant stenosis or occlusion in the carotid or vertebral arteries of the neck. No evidence for large vessel occlusion in the [place]. Electronically Signed: Yvonne Florian MD at 14:03 EST Reading Location ID and State: [facility] / ID Tel , Service support , ADDENDUM: 09/26/23 1412 IMPRESSION: No evidence for significant stenosis or occlusion in the carotid or vertebral arteries of the neck. No evidence for large vessel occlusion in the [place]. N.B. : The above [...] mls @ 15 mls/hr 09/26/23 15:16 IV .[id number] PRN Additional IVPB Infusion Sodium Chloride 250 mls @ 15 mls/hr 09/26/23 15:16 IV .[id number] PRN Saline Flush Labetalol HCl 10 - [...] Shruti Spencer DO; Will Locke MD~ Signed [facility] Work Phone: 1(232) 274-245203-05-2024 Progress note Author Hima [facility] September 27, 2023 12:08pm Note Date/Time September 27, 2023 10:1 3am [facility] Medical Records Department [address] [place] [address] Progress Note - Hospitalist 09/27/23 1013 MR#: [id number] Acct: [id number] Name: VANESSA HERNANDEZ Rep #:[id number] : 1945 78 From: Hima pham DO PCP: Dr. Moon Rayo MD Status:ADM IN Location: [place] [address]- 1 Reason for Visit Reason for Visit: [...] (Auto) 74.3 H, Lymph % (Auto)12.2 L, Barron % (Auto) 10.3 H, Eos % (Auto) [...] % (Auto) 64.8, Lymph % (Auto) 20.9, Barron % (Auto) 9.8, Eos % (Auto) 3.8, [...] evidence for large vessel occlusion in the [place]. Electronically Signed: Yvonne Florian MD at 14:03 EST , ADDENDUM: 09/26/23 1412 IMPRESSION: No evidence for significant stenosis or occlusion in the carotid or vertebral arteries of the neck. No evidence for large vessel occlusion in the [place]. N.B. : The above [...] is a 78-year-old female who presented to [facility] ED on 09/26/2023 with dysarthria, right facial [...] 35 minutes. Charges/Coding Visit Charges Inpatient E&M: 15949 Subs Hosp L2 09/27/23 1208 <Electronically signed by Hima Zimmer DO> Cosigner Signature (if applicable): CC: ~ Signed [facility] Work Phone: 1(617) 124-826103-04-2024 History and physical note Author Mona Chery [facility] September 26, 2023 3:35pm Note Date/Time September 26, 2023 3:35 pm [facility] Medical Records Department [address] [place] [address] H&P Exam - Hospitalist 09/26/23 1519 MR#: [id number] Acct: [id number] Name: VANESSA HERNANDEZ Rep #:[id number] : 1945 78 From: Mona Chery DO PCP: Dr. Moon Rayo MD Status:ADM IN Location: [place] [id number]- 1 HPI - General General Date of Admission: 09/26/23 Date of Service: 09/26/23 Chief Complaint: Slurred speech HPI Narrative VANESSA HERNANDEZ, is a 78 F who presented to the emergency department at [facility] on 09/26/2023 with slurred speech. Patient lives [...] and neck was read as unremarkable however [facility] had conversation with the stroke [...] aspirin with ongoing aspirin Plavix after admission. [facility] Medical History (Updated 09/26/23 @ 15:26 by [...] (Auto) 74.3 H, Lymph % (Auto)12.2 L, Barron % (Auto) 10.3 H, Eos % (Auto) [...] 13:36 EST Reading Location ID and State: [facility] / ID Tel , Service support , ADDENDUM: 09/26/23 1354 IMPRESSION: No acute intracranial process identified. Chronic involutional and white matter changes. N.B. : The above Results were Read Back by Yvonne Florian MD to Joshua Santiago MD, and understanding confirmed on 09/26/2023 13:47:48 (ET). Electronically Signed: Yvnone Florian MD at 13:36 EST Reading Location ID and State: [facility] / ID Tel , Service support , Head/Neck CTA 09/26/23 13:24 IMPRESSION: No evidence for significant stenosis or occlusion in the carotid or vertebral arteries of the neck. No evidence for large vessel occlusion in the [place]. Electronically Signed: Yvonne Florian MD at 14:03 EST Reading Location ID and State: [facility] / ID Tel , Service support , ADDENDUM: 09/26/23 1412 IMPRESSION: No evidence for significant stenosis or occlusion in the carotid or vertebral arteries of the neck. No evidence for large vessel occlusion in the [place]. N.B. : The above [...] to admission Charges/Coding Visit Charges Inpatient E&M: 68423 Init Hosp L2 09/26/23 1535 <Electronically signed by Mona Chery DO> Cosigner Signature (if applicable): CC: Dr. Mona Chery DO; Dr. Moon Rayo MD~ Signed [facility] Work Phone: 1(462) 412-321803-04-2024 Discharge summary Author Joshua Santiago [facility] September 26, 2023 2:32pm Note Date/Time September 26, 2023 1:37 pm [facility] Medical Records Department [address] [place] [address] Emergency Department Summary 09/26/23 MR#: [id number] Acct: [id number] Name: VANESSA HERNANDEZ Rep #:[id number] : 1945 78 From: Joshua Santiago MD PCP: Dr. Moon Rayo MD Status:REG ER Location: ED HPI History of Present Illness Chief Complaint: Stroke Alert Detail of Chief Complaint: Positive [place] score per EMS Informant: patient and EMS [...] bilaterally and No no sensory deficits noted Harinder Coma Scale: document GCS findings Spontaneous [...] 74.3 H Lymph % (Auto) 12.2 L Barron % (Auto) 10.3 H Eos % (Auto) [...] Reading Location ID and State: [facility] / ID Tel , Service support , ADDENDUM: 09/26/23 [...] evidence for large vessel occlusion in the [place]. Electronically Signed: Yvonne Florian MD at 14:03 EST , ADDENDUM: 09/26/23 1412 IMPRESSION: No evidence for significant stenosis or occlusion in the carotid or vertebral arteries of the neck. No evidence for large vessel occlusion in the [place]. N.B. : The above Results were Read Back by Yvonne Florian MD to Joshua Santiago MD, and understanding confirmed on 09/26/2023 14:05:28 (ET). Electronically Signed: Yvonne Florian MD at 14:03 EST , EKG Initial EKG: Attestation: I personally reviewed and interpreted this EKG as follows: Interpretation: Sinus Rhythm (Rate is 74. Computer is reading A-fib whichis incorrect. WA interval is normal. Cures duration is 84 ms. QT duration 392ms. [place] is normal. There is artifact that the [...] (CVA), Herman-inattention Disposition Disposition: Acute Care Hospital [facility] What to do if you have Problems For any increased pain, shortness of breath, bleeding, nausea or vomiting, chestpain, or any unexpected problems, contact your Primary Care Provider. Call [facility] ([phone]) or report to the closest Emergency Room. [...] cc: Dr. Moon Rayo MD ~* Signed [facility] Work Phone: 1(409) 952-313603-04-2024 Discharge summary Author Joshua Santiago [facility] September 26, 2023 2:32pm Note Date/Time September 26, 2023 1:37 pm [facility] Medical Records Department [address] [place] [address] Emergency Department Summary 09/26/23 MR#: [id number] Acct: [id number] Name: VNAESSA HERNANDEZ Rep #:[id number] : 1945 78 From: Joshua Santiago MD PCP: Dr. Moon Rayo MD Status:REG ER Location: ED HPI History of Present Illness Chief Complaint: Stroke Alert Detail of Chief Complaint: Positive [place] score per EMS Informant: patient and EMS [...] bilaterally and No no sensory deficits noted Harinder Coma Scale: document GCS findings Spontaneous [...] 74.3 H Lymph % (Auto) 12.2 L Barron % (Auto) 10.3 H Eos % (Auto) [...] evidence for large vessel occlusion in the [place]. Electronically Signed: Yvonne Florian MD at 14:03 EST , ADDENDUM: 09/26/23 1412 IMPRESSION: No evidence for significant stenosis or occlusion in the carotid or vertebral arteries of the neck. No evidence for large vessel occlusion in the [place]. N.B. : The above Results were Read Back by Yvonne Florian MD to Joshua Santiago MD, and understanding confirmed on 09/26/2023 14:05:28 (ET). Electronically Signed: Yvonne Florian MD at 14:03 EST , EKG Initial EKG: Attestation: I personally reviewed and interpreted this EKG as follows: Interpretation: Sinus Rhythm (Rate is 74. Computer is reading A-fib whichis incorrect. WA interval is normal. Cures duration is 84 ms. QT duration 392ms. [place] is normal. There is artifact that the [...] (CVA), Herman-inattention Disposition Disposition: Acute Care Hospital [facility] What to do if you have Problems For any increased pain, shortness of breath, bleeding, nausea or vomiting, chestpain, or any unexpected problems, contact your Primary Care Provider. Call [facility] ([phone]) or report to the closest Emergency Room. [...] cc: Dr. Moon Rayo MD ~* Signed [facility] Work Phone: 1(998) 717-839901-23-2024 Discharge summary Author Luis Miguel Freeman [facility] August 16, 2023 11:38am Note Date/Time August 16, 2023 1 1:38am [facility] Medical Records Department [address] [place] [address] Discharge Summary 08/16/23 1135 MR#: [id number] Acct: [id number] Name: VANESSA HERNANDEZ Rep #:[id number] : 1945 78 From: Luis Miguel Wesley PCP: Dr. Moon Rayo MD Status:ADM IN Location: [place] [address] Providers Date of Admission: 08/13/23 Date of [...] (Auto) 68.3, Lymph % (Auto) 17.2 L, Barron % (Auto) 11.5 H, Eos % (Auto) [...] Best Instructions Additional Instructions / Restrictions: Advised akuq-fhe-hudujjr probiotic, lactobacillus tablets, 1 tablet twice daily [...] Self Care Charges/Coding Visit Charges Inpatient E&M: 26976 Disch Hosp >30min 08/16/23 1138 <Electronically signed by Luis Miguel Freeman MD> Cosigner Signature (if applicable): CC: Dr. Moon Rayo MD; Dr. Luis Miguel Freeman MD~ Signed [facility] Work Phone: 1(583) 446-647401-23-2024 Discharge summary Author Luis Miguel Freeman [facility] August 16, 2023 11:35am Note Date/Time August 16, 2023 1 1:31am [facility] Medical Records Department [address] [place] [address] Instructions for Home/Discharge Instructions 08/16/23 1036 MR#: [id number] Acct: [id number] Name: VANESSA HERNANDEZ Rep #:[id number] : 1945 78 From: Luis Miguel Wesley [...] Best Instructions Additional Instructions / Restrictions: Advised msuu-lge-zhhybmu probiotic, lactobacillus tablets, 1 tablet twice daily [...] MD; Dr. Dilia Best MD ~ Signed [facility] Work Phone: 1(893) 758-136901-22-2024 Progress note Author Luis Miguel Pete [facility] August 15, 2023 3:05pm Note Date/Time August 15, 2023 3 :05pm [facility] Medical Records Department [address] [place] [address] Progress Note - Hospitalist 08/15/23 1458 MR#: [id number] Acct: [id number] Name: VANESSA HERNANDEZ Rep #:[id number] : 1945 78 From: Luis Miguel Wesley PCP: Dr. Moon Rayo MD Status:ADM IN Location: [place] [address] Reason for Visit Reason for Visit: Diagnoses [...] % (Auto) 68.3, Lymph % (Auto)17.6 L, Barron % (Auto) 10.9 H, Eos % (Auto) [...] mentioned above. Charges/Coding Visit Charges Inpatient E&M: 34984 Subs Hosp L2 08/15/23 7162 <Electronically signed by Luis Miguel Freeman MD> Cosigner Signature (if applicable): CC: ~ Signed [facility] Work Phone: 1(101) 408-682701-22-2024 Consult note Author Zeina Beavers [facility] August 15, 2023 2:13pm Note Date/Time August 15, 2023 2 :13pm [facility] Medical Records Department [address] [place] [address] Pharmacokinetic/Renal -Consult 08/15/23 1413 MR#: [id number] Acct: [id number] Name: VANESSA HERNANDEZ Rep #:[id number] : 1945 78 From: Zeina Beavers PCP: Dr. Moon Rayo MD Status:ADM IN [facility] Antibiotic Management Pharmacy has been consulted [...] Signature (if applicable): Date CC: ~ Signed [facility] Work Phone: 1(492) 616-162601-21-2024 Progress note Author Dilia Best [facility] August 14, 2023 2:59pm Note Date/Time August 14, 2023 7 :22am [facility] Medical Records Department [address] [place] [address] Progress Note - Hospitalist 08/14/23 0721 MR#: [id number] Acct: [id number] Name: VANESSA HERNANDEZ Rep #:[id number] : 1945 78 From: Dilia Best MD PCP: Dr. Moon Rayo MD Status:ADM [facility] Reason for Visit Reason for Visit: Diagnoses [...] (Auto) 77.3 H, Lymph % (Auto)9.8 L, Barron % (Auto) 11.6 H, Eos % (Auto) [...] Sl. Cloudy, Urine pH 5.0, Ur Specific Hering[place] 1.020, Urine Protein 30 H, Urine Glucose [...] % (Auto) 65.7, Lymph % (Auto) 19.8, Barron % (Auto) 12.8 H, Eos % (Auto) [...] tissue swelling is present Electronically Signed: Tee Oneill MD at 21:55 EST , Foot X-Ray 08/13/23 21:35 IMPRESSION: 1. No evidence of fractures dislocation or malalignment. 2. Moderate degenerative change involving the midfoot and forefoot as detailed. Electronically Signed: Tee Oneill MD at 21:53 EST Reading Location ID and State: [address] [place] [address] Tel , Service support , Physical Exam [...] documentation, 38minutes Charges/Coding Visit Charges Inpatient E&M: 98140 Subs Hosp L2 08/14/23 3102 <Electronically signed by Dilia Best MD> Cosigner Signature (if applicable): CC: ~ Signed [facility] Work Phone: 1(994) 419-738701-21-2024 History and physical note Author Felipe Cordoba [facility] August 14, 2023 5:37am Note Date/Time August 13, 2023 9 :28pm [facility] Medical Records Department [address] [place] [address] H&P Exam - Hospitalist 08/13/232125 MR#: [id number] Acct: [id number] Name: VANESSA HERNANDEZ Rep #:[id number] : 1945 78 From: Felipe Fry DO PCP: Dr. Moon Rayo MD Status:ADM IN [place] [facility] [place] HPI - General General Date of Admission: [...] injection in June 2023) who presents to [facility] ER complaining of right lower extremity edema, [...] isexpected to be greater than 48 hours. [facility] Medical History (Updated 08/14/23 @ 05:37 by [...] (Auto) 77.3 H, Lymph % (Auto)9.8 L, Barron % (Auto) 11.6 H, Eos % (Auto) [...] Sl. Cloudy, Urine pH 5.0, Ur Specific [place] 1.020, Urine Protein 30 H, Urine Glucose [...] 55 minutes. Charges/Coding Visit Charges Inpatient E&M: 53382 Init Hosp L2 08/14/23 0537 <Electronically signed by Felipe Drew DO> Cosigner Signature (if applicable): CC: Dr. Felipe Drew DO; Dr. Moon Rayo MD~ Signed [facility] Work Phone: 1(628) 175-976601-21-2024 Consult note Author Felipe [facility] August 14, 2023 2:40am Note Date/Time August 14, 2023 2 :07am [facility] Medical Records Department [address] [place] [address] Pharmacokinetic/Renal -Consult 08/14/23 0206 MR#: [id number] Acct: [id number] Name: VANESSA HERNANDEZ Rep #:[id number] : 1945 78 From: Sterling Chavis PCP: Dr. Moon Rayo MD Status:ADM IN Location: [address] Consult Antibiotic Management Pharmacy has been [...] Date Felipe Drew DO CC: ~ Signed [facility] Work Phone: 1(672) 287-406501-21-2024 Discharge summary Author Kelle Foster [facility] August 14, 2023 1:41am Note Date/Time August 13, 2023 7 :40pm [facility] Medical Records Department [address] [place] [address] Emergency Department Summary 08/13/23 MR#: [id number] Acct: [id number] Name: VANESSA HERNANDEZ Rep #:[id number] : 1945 78 From: Kelle Foster MD PCP: Dr. Moon Rayo MD Status:ADM RUBENS Location: [place] [address] HPI History of Present Illness Chief Complaint: [...] up and go to her recliner to [facility]. When she tried to get up she states her feet were swollen and too painful. She was not able to bear weight. She does live alone. [facility] Medical History (Updated 08/13/23 @ 21:18 by [...] 77.3 H Lymph % (Auto) 9.8 L Barron % (Auto) 11.6 H Eos % (Auto) [...] Sl. Cloudy Urine pH 5.0 Ur Specific Herington 1.020 Urine Protein 30 H Urine Glucose [...] Care Provider] - Disposition Disposition: Acute Care [facility] What to do if you have Problems For any increased pain, shortness of breath, bleeding, nausea or vomiting, chestpain, or any unexpected problems, contact your Primary Care Provider. Call [facility] ([phone]) or report to the closest Emergency Room. Call 911 if necessary. 08/14/23 0141 <Electronically signed by Kelle Foster MD> Cosigner Signature (if applicable): CC: Dr. Moon Rayo MD ~ Signed [facility] Work Phone: 1(567) 314-409304-23-2021 NoteHNO ID: [id number] Author: Latonya Sol Service: ? Author Type: [...] Objective: Patient presents to clinic ambulating in [facility] Vasc: DP and PT pulses are decreased [...] to RTC in 3-4 months. Latonya Sol [facility]04-23-2021 NoteHNO ID: [id number] Author: Paty Harmon RN Service: ? Author Type: ? Type: Progress Notes Filed: 11/14/2020 2:54 PM Note Text: AMB ROOMING INTAKE FLOWSHEET DATA Risk Screening Do you have concerns about personal safety or safety in the home?: No Patient presents with: Left Foot - Established Patient, Nail Care Right Foot - Established Patient, [facility] NotePatient Outreach (COVAMN) VANESSA HERNANDEZ ([id number]) 1945 F Date Time Provider Department 09/16/20 [...] Fully Assessed Order(s):SARS-COVID VACCINE 1ST DOSE APPT [[id number]] Order #: [id number] FUTURE Prescriptions as of 09/16/2020 Sig: OMEPRAZOLE [...] Text Encounter Status:Closed by BEBETO, PRODUSER on 09/19/20[facility] Discharge summary Author Ronak Mejia [facility] April 27, 2023 6:03am Note Date/Time April 27, 2023 6: 04am [facility] Medical Records Department [address] [facility] [place] [address] Emergency Department Summary 04/27/23 MR#: [id number] Acct: [id number] Name: VANESSA HERNANDEZ Nitza Rep #:[id number] : 1945 77 From: Ronak Mejia DO [...] was brought to the hospital for evaluation. [facility] Medical History Abdominal pain Abdominal pain Asthma [...] [Rx Last Taken Unknown] walker (Ultra-Light Rollator [facility]) #1 ea 08/23/22 [Rx Last Taken Unknown] [...] 4:33 EDT Reading Location ID and State: [facility] / [place] Tel , Service support , [...] your Primary Care Provider. Call [facility] ([phone]) or report to the closest Emergency Room. Call 911 if necessary. 04/27/23 0603 <Electronically signed by Ronak Mejia DO> Cosigner Signature (if applicable): CC: Dr. Moon Rayo MD ~ Signed [facility] Work Phone: Discharge summary Author Dulce Maria Lance [facility] Note Date/Time January 28, 2025 11:22 am [facility] Physical [facility] [address] [place] [address] [address] [place] [address] / REHABILITATION SERVICES DISCHARGE SUMMARY MR#: [id number] Acct: [id number] Name: VANESSA HERNANDEZ Rep #: [id number] : 1945 79 From: Dulce Maria An [...] please feel free to call me at [phone]. Thank you for the referral of thispatient. Sincerely, JOHN Vernon Balance/Gait/Functional tests Balance/Special Test Scores Lower Extremity Functional Score: 44 Improvement % Improvement: 90 <Electronically signed by Dulce Maria LOPEZ> 01/28/25 0958 CC: Dr. Moon Rayo MD ~ Signed [facility] Work Phone: Evaluation + Plan note No data available for this section [facility] Evaluation note* Diagnosis Onset Date Resolution Status Vertigo acute Essential (primary) hypertension chronic Exertional dyspnea chronic Frequent falls chronic Neuropathy chronic Osteoarthritis chronic [facility] Work Phone: Evaluation noteNo assessment information available [facility] Work Phone: Evaluation note* Diagnosis Onset Date Resolution Status Fall from bed acute Essential (primary) hypertension chronic Frequent falls chronic GERD (gastroesophageal reflux disease) chronic Osteoarthritis chronic [facility] Work Phone: Evaluation note* Diagnosis Onset Date Resolution Status Swelling of left lower extremity acute Depression chronic Essential (primary) hypertension chronic Hyperlipidemia chronic Neuropathy chronic [facility] Work Phone: Evaluation note* Diagnosis Onset Date Resolution Status Swelling of left lower extremity acute Depression chronic Essential (primary) hypertension chronic Hyperlipidemia chronic Neuropathy chronic Gout acute Swelling of left lower extremity acute Essential (primary) hypertension chronic Exertional dyspnea chronic Frequent falls chronic GERD (gastroesophageal reflux disease) chronic Neuropathy chronic Osteoarthritis chronic Overactive bladder chronic [facility] Work Phone: Evaluation note* Diagnosis Onset Date Resolution Status Gout acute Swelling of left lower extremity acute Essential (primary) hypertension chronic Exertional dyspnea chronic Frequent falls chronic GERD (gastroesophageal reflux disease) chronic Neuropathy chronic Osteoarthritis chronic Overactive bladder chronic Cellulitis acute Unable to ambulate acute [facility] Work Phone: Evaluation note* Diagnosis Onset Date Resolution Status Gout acute Swelling of left lower extremity acute Essential (primary) hypertension chronic Exertional dyspnea chronic Frequent falls chronic GERD (gastroesophageal reflux disease) chronic Neuropathy chronic Osteoarthritis chronic Overactive bladder chronic Acute cystitis without hematuria acute Ambulatory dysfunction acute Cellulitis acute Generalized weakness acute Hypokalemia acute Unable to ambulate acute [facility] Work Phone: Evaluation note* Diagnosis Onset Date [...] acute Essential (primary) hypertension chronic Hyperlipidemia chronic [facility] Work Phone: Evaluation note* Diagnosis Onset Date [...] Gout acute Swelling of left wrist acute [facility] Work Phone: History and physical note Author Mona Chery [facility] September 26, 2023 3:35pm Note Date/Time September 26, 2023 3:35 pm [facility] Medical Records Department [address] [place] [address] H&P Exam - Hospitalist 09/26/23 1519 MR#: [id number] Acct: [id number] Name: VANESSA HERNANDEZ Rep #:[id number] : 1945 78 From: Mona Chery DO PCP: Dr. Moon Rayo MD Status:ADM IN Location: [facility] [id number] HPI - General General Date of Admission: 09/26/23 Date of Service: 09/26/23 Chief Complaint: Slurred speech HPI Narrative VANESSA HERNANDEZ, is a 78 F who presented to the emergency department at [facility] on 09/26/2023 with slurred speech. Patient lives [...] and neck was read as unremarkable however [facility] with [facility] [...] aspirin with ongoing aspirin Plavix after admission. [facility] Medical History (Updated 09/26/23 @ 15:26 by [...] (Auto) 74.3 H, Lymph % (Auto)12.2 L, Barron % (Auto) 10.3 H, Eos % (Auto) [...] 13:36 EST Reading Location ID and State: [facility] / [place] Tel , Service support , ADDENDUM: 09/26/23 1354 IMPRESSION: No acute intracranial process identified. Chronic involutional and white matter changes. N.B. : The above Results were Read Back by Yvonne Florian MD to Joshua Santiago MD, and understanding confirmed on 09/26/2023 13:47:48 (ET). Electronically Signed: Yvonne Florian MD at 13:36 EST Reading Location ID and State: [facility] / [place] Tel , Service support , Head/Neck CTA 09/26/23 13:24 IMPRESSION: No evidence for significant stenosis or occlusion in the carotid or vertebral arteries of the neck. No evidence for large vessel occlusion in the [place]. Electronically Signed: Yvonne Florian MD at 14:03 EST Reading Location ID and State: [facility] / [place] Tel , Service support , ADDENDUM: 09/26/23 1412 IMPRESSION: No evidence for significant stenosis or occlusion in the carotid or vertebral arteries of the neck. No evidence for large vessel occlusion in the [place]. N.B. : The above [...] to admission Charges/Coding Visit Charges Inpatient E&M: 92594 Init Hosp L2 09/26/23 1535 <Electronically signed by Mona Chery DO> Cosigner Signature (if applicable): CC: Dr. Mona Chery DO; Dr. Moon Rayo MD~ Signed [facility] Work Phone: Hospital Discharge instructions No data available for this section [facility] Hospital Discharge instructionsAmbulatory Orders* PT Referral Location: None Selected [facility] Work Phone: Prorvqan note No data available for this section [facility] Progrkdj note Author Moon Rayo [facility] Note Date/Time April 18, 2025 10:26am [facility] [address] [place] [address] OFFICE VISIT Date of Service: 04/18/25 MR#: [id number] Acct: [id number] Name: VANESSA HERNANDEZ Rep #: [id number] : 1945 Provider: Dr. Meseret Rayo MD Age/Sex: 79/F Location: [facility] Status: Signed Intake Vital Signs 02/21/25 [...] Reasons: Headaches Chief Complaint: Headaches, neck pain Director Of Student Financial Services Required: No Accompanied by: Self Is patient [...] Suggest she trial chiropractic, Dr. Mckeon in [place]. 30-minute visit. Clinical Quality Measures Falls Risk Screening/Assistive Devices Have you fallen in the past year?: No 04/22/25 0753 <Electronically signed by Moon oliveros MD> Date _ Moon Rayo MD [facility] Signature: Date (if applicable) CC: ~ [facility] Work Phone: Reason for referral (narrative)No reason for referral [facility] Work Phone: Summary Purpose Family History No [...] December 14, 2021 2 :06pm Power of Roving Hand No December 14, 2021 2:06pm Advance Directive Response Recorded Date/ Time Name of Medical Power of Roving Hand ADRIENNE INTERIANOELISE July 13, 2022 7:06am Advance Directives Yes October 14 021 6:16am Living Will Yes July 13 7:06am Power of Roving Hand Yes July 13, 2022 7:06am Advance Directive Response Recorded Date/ Time Advance Directives Yes October 14 021 7:16am Living Will Yes July 13 8:06am Power of Roving Hand Yes July 13, 2022 8:06am Advance Directive Response Recorded Date/ Time Advance Directives Yes October 14 021 6:16am Living Will Yes David 20th, 2 022 7:06am Power of Roving Hand Yes July 13, 2022 7:06am Advance Directive Response Recorded Date/ Time Name of Medical Power of Roving Hand Dulce Maria Schwab August 13, 2023 7:21pm Advance Directives Yes October 14, 021 6:16am Living Will Yes August 13 7:21pm Power of Roving Hand Yes August 13, 2023 7:21pm Advance Directive Response Recorded Date/ Time Name of Medical Power of Roving Hand Dulce Maria trent August 13, 2023 11:57pm Advance Directives Yes October 14, 021 6:16am Living Will Yes August 13 11:57pm Power of Roving Hand Yes August 13, 2023 11:57pm Advance Directive Response Recorded Date/ Time Name of Medical Power of Roving Hand Dulce Maria trent August 13, 2023 11:57pm Advance Directives Yes October 14, 6:16am Living Will No September 26, 2023 3:19pm Power of Roving Hand No September 25 3:19pm Advance Directive Response Recorded Date/ Time Advance Directives Yes October 23 1:17pm Living Will No October 24, 2023 1:17pm Power of Roving Hand No October 23 1:17pm Name of Medical Power of Roving Hand Dulce Maria trent August 14, 2023 12:57am Advance Directive Response Recorded Date/ Time Name of Medical Power of Roving Hand Dulce Maria trent August 14, 2023 12:57am Name of Medical Power of Roving Hand DULCE MARIA MILAN--HERNAN JENSEN October 30, 2023 11:10pm Advance Directives Yes October 23 1:17pm Living Will Yes October 30, 2023 11:10pm Power of Roving Hand Yes October 29 11:10pm Advance Directive Response Recorded Date/ Time Advance Directives Yes August 31, 2024 12:18pm Chief Complaint and Reason for Visit Chief Complaint headache, bowel issu es N/V/D Reason for Visit Vertigo Essential (primary) hypertension Exertional dyspnea Frequent falls Neuropathy Osteoarthritis Chief Complaint Amb Documentation FALL Chief Complaint Amb Documentation FALL [facility] ER FU Reason for Visit Fall [...] RIGHT LOWER EXTREMITY CELLULITI AND ACUTE CYSTITIS [facility] Discharge FU CVA Reason for Visit [...] RIGHT LOWER EXTREMITY CELLULITI AND ACUTE CYSTITIS [facility] Discharge FU CVA Cerebrovascular accident Cerebrovascular [...] RIGHT LOWER EXTREMITY CELLULITI AND ACUTE CYSTITIS [facility] Discharge FU CVA Cerebrovascular accident Cerebrovascular accident Cerebrovascular accident LABWORK LABWORK ACUTE [facility] Discharge FU Lt Arm Swelling/Pain Reason for [...] accident Cerebrovascular accident LABWORK LABWORK ACUTE [facility] Discharge FU Lt Arm Swelling/Pain DIZZNESS Reason [...] section and content) DATE CREATED AUTHOR 08/31/2021 [facility] DATE CREATED AUTHOR AUTHOR'S ORGANIZ ATION 10/29/2023 [facility] ([place]) DATE CREATED AUTHOR AUTHOR'S ORGANIZ ATION 05/27/2025 [facility] Goals (unrecognized section and content) Goals may [...] Dr. Moon Rayo MD Primary Care Provider, [facility] Provider Active Team Status: Active Member Role [...] Sukhdev Ashraf MD Other Provider Active Dr. Keivn Gonzalez MD Other Provider Active Dr. Collette [...] BE BASED ON THE PRIMARY CLINICAL RECORDS. [employer] provides no warranty or guarantee of the accuracy or completeness of information in this document.
[2025-07-07 11:18] LABS: D-Dimer Quantitative (DVT/PE) 0.73 FEU/ug/m (0.27-0.49)
--- NOTE | 2025-07-07 11:40 | NURSING ---
Pt's friend, sayra, brought pt into ed. she called in to follow up and expressed concern about pt living home alone and not able to care for herself well. sw notified. sayra's number is [phone].
--- NOTE | 2025-07-07 12:42 | CASEMGMT ---
Social Work Date of referral: 07/07/25 Reason for referral: Discharge planning Referred by: ED nurse [employer] Work[employer] made phone contact with patient's friend Floridalma, who originally brought patient to ED to gather information. Floridalma stated she has been helping with caregiving for patient since patient was discharged from the hospital and goes over to help patient both in the mornings (normally 8-9:30) and evenings each day however the help was intended to be short-term. Julieta stated she is helping patient with medication management and when she arrived at patient's apartment this morning, patient had taken her park manager and gotten her box of medication off the top shelf and has no idea if and/or what medication patient may have taken which has worried her. Julieta stated patient was recently diagnosed with early onset dementia and the knobs to patient's stove have been taken off so patient can't attempt to use oven and though patient has a microwave, Julieta stated she's not sure if patient has the capacity to operate it on her own. Julieta stated she does some cooking for patient. Julieta stated she feels that patient living alone is a safety concern. Patient able to mostly dress herself with some help from Floridalma. Patient is said to be able to ambulate and transfer independently and is able to shower herself. Patient's family is supposed to be looking into Assisted Living for patient however was told it could take a few months. Floridalma noted a big decline with patient over the last month. (12:12) [employer] Worker met with patient. Patient provided consent to social work visit. Also present was patient's friends Susu and Susu's . Susu stated she helps provide transportation for patient to get to and from doctor's appointments and Susu's assists with grocery shopping for patient. Patient was wearing an emergency response device which patient stated she believes works anywhere. Patient not sure if the device has a fall detection sensor or not. Patient stated she knows how to use the microwave and was not agreeable to having her medication stored in a locked box and dispersed to her when needed. Patient was unable to say who normally makes her breakfast however Susu spoke up and stated she believes Floridalma prepares breakfast for patient. Patient also stated she drinks a lot of Boost. Patient agreed that she is able to ambulate and complete transfers on her own. Patient stated she has been approved for a home health aid for 35 hours per week, however doesn't know who that's through, when it's supposed to start or who to contact to inquire about services. Susu stated patient is not able to keep up with the required chores of her apartment so between herself, her and Floridalma, they all try to make sure the dishes are always done. (12:32) [employer] Worker made phone contact with patient's daughter, Dulce Maria, whom patient provided consent to do and Dulce Maria stated she is in the [facility] in attempt to get the assisted living paid for and is in the assessment stage of the process. Dulce Maria stated patient was previously approved to go to a care home facility, however, patient refused and insisted on being discharged home so she can prepare her belongings for a move to an assisted living facility hopefully in the near future. (12:42) [employer] Worker learned that patient is being admitted. [employer] Worker will advise acute floor career guidance counselor/social media sr strategy manager of the indication for a referral to be made for adult protective services (APS) to further investigate the safety if patient living at home alone. No other needs/concerns noted at this time. Kelle West, PIPE CHANGER, THERMOSTATIC CONTROLS SUPERVISOR
[2025-07-07 12:57] LABS: Troponin T High Sens 2 HR 9 ng/L (<=14)
--- NOTE | 2025-07-07 12:57 | ED.RN ---
PTS MATEUSZ called and would like pt admitted until she can get into Assisted living. Pt was recently diagnosed with dementia and was doing a trial run at home with people checking on her. JOCELYNThomas is also concerned about her liver function and vascular issues with the spondylosis. She would like more tests run to see why her BP is so up and down.
--- OUTSIDE RECORDS SUMMARY | 2025-07-07 13:57 | XMS RPT_ITS | CCD ---
Author Organization [facility] Care Team Providers Care Name Role Phone Dr. Moon Rayo Primary Care Provider Dr. Moon Rayo Attending Provider [phone] Dr. Moon Rayo Referring Provider [phone] Dr. Moon Rayo Primary Care Provider Hans Mcnamara Attending Provider Unavailable Dr. Moon Rayo Attending Provider 1([facility])[phone] Dr. Moon Rayo Primary Care Provider Dr. Moon Rayo Attending Provider Dr. Sterling Orosco Attending Provider [phone]([phone] Moon Rayo Primary Care Provider Dr. Moon Rayo Attending Provider Dr. Moon Rayo Referring Provider Dr. Sterling Orosco Attending Provider 1([facility])[phone] Moon Rayo Primary Care Provider Dr. Moon Rayo Attending Provider [phone] Dr. Kelle Foster Emergency Provider Dr. Felipe Drew Admit Provider Unavailabl e Dr. Felipe Drew Other Provider Unavailabl e Dr. Dilia Best Attending Provider Dr. Dilia Best Other Provider Dr. Sterling Orosco Attending Provider [phone]([facility])[phone] Luis Miguel Freeman Attending Provider [...] Provider Unavailable Dr. Beena Wagner Other Provider [phone] Leeann Killian Other Provider Dr. Mandeep Hannon Other Provider Dr. Pamella Carl Other Provider Dr. Moustapha Tran Other Provider Dr. Adrienne Miranda Other Provider MD Shruti Spencer Other Provider [phone] Latonya Renee Other Provider Dr. Love [...] Moon Rayo MD Primary Care Physician [phone] Dr. Jojo Sanchez MD Attending Physician Dr. Moon Rayo MD Attending Physician [phone] Jonathan Eng Attending Unavailable Girma, Moon Primary [...] tape] Allergy to substance 2 Area Sore [facility] (16 sources) cefpodoxime Drug Allergy 2 [facility] (16 sources) Codeine Drug Allergy 2 [facility] Comment on above: HALLUCINATIONS (16 sources) metroNIDAZOLE Drug Allergy 2 Unknown [facility] (16 sources) Sulfamethoxazole Drug Allergy 2 [facility] (17 sources) Sulfonamides (Antibiotic); Translations: [Sulfa (Sulfonamide Antibiotics)] Allergy to substance 2 Unknown [facility] (16 sources) Trimethoprim Drug Allergy 2 Unknown [facility] (1 source) cefpodoxime Drug Allergy 5 [facility] Repository (1 source) Codeine Drug Allergy 5 [facility] Repository (1 source) metroNIDAZOLE Drug Allergy 5 [facility] Repository (1 source) Sulfamethoxazole Drug Allergy 5 [facility] Repository (1 source) Trimethoprim Drug Allergy 5 [facility] Repository Medications Current Medications Medication Drug [...] Other acute postprocedural pain polyethylene glycol 3350 26925 mg powder for oral solution (16 sources) [...] 05-24-2025 HIP, UNI W/ Pelvis 2-3 Views [facility] Imaging Services [address] [place] [address]121 HIP, UNI W/ Pelvis 2-3 Views MR#: [id number] Acct: [id number] Name: VANESSA HERNANDEZ Rep #: [id number] : 1945 F 80 From: Felipe Wesley PCP: Dr. Moon Rayo MD Status: DEP AMB Study: HIP, UNI W/ Pelvis 2-3 Views Date of Exam: Exam# [id number] Ordering Dr: Alvin Steele DO PROCEDURE: HIP, [...] fracture or dislocation is seen. Reading Location: [facility] CC: Dr. Alvin Steele DO; Dr. Moon Rayo MD [employer]: Signed Normal [facility] Orthopedic Visit Reporton Orthopedic Visit Report [facility] [address] [place] [address] OFFICE VISIT Date of Service: 05/24/25 MR#: [id number] Acct: [id number] Name: VANESSA HERNANDEZ Rep #: [id number] : 1945 Provider: Dr. Alvin goldsmith DO Age/Sex: 80/F [place] [facility] Status: Signed Intake Vital Signs 04/18/25 09:54 [...] cancer H (more content not included)... Normal [facility] MR/BMS.[facility] [place] 04-18-2025 MR/BMS.B [facility] [address] [facility] [facility] [address] [place] [address] OFFICE VISIT Date of Service: 04/18/25 MR#: [id number] Acct: [id number] Name: VANESSA HERNANDEZ Rep #: [id number] : 1945 Provider: Dr. Moon de la cruz MD Age/Sex: 79/F Location: [facility] Status: Signed Intake Vital Signs 02/21/25 [...] Reasons: Headaches Chief Complaint: Headaches, neck pain [employer] Forms Builder Required: No Accompanied by: Self Is patient [...] in the past year?: No [facility] Medical History (Updated 04/22/25 @ 07:51 by [...] joint repla (more content not included)... Normal [facility] MR/BMS.[facility] 02-21-2025 MR/BMS.IMB [facility] [address] [facility] [place] [address] OFFICE VISIT Date of Service: 02/21/25 MR#: [id number] Acct: [id number] Name: VANESSA HERNANDEZ Rep #: [id number] : 1945 Provider: Dr. Moon de la cruz MD Age/Sex: 79/F [place] [facility] Status: Signed Intake Vital Signs 02/18/25 [...] Reasons: Leg FU Chief Complaint: Leg FU [employer] Forms Builder Required: No Accompanied by: Self Is patient [...] @ 0 (more content not included)... Normal [facility] /René 02-18-2025 MR/SIMONE.CARYN [facility] [address] [facility] [address] [place] [address] OFFICE VISIT Date of Service: 02/18/25 MR#: [id number] Acct: [id number] Name: VANESSA HERNANDEZ Rep #: [id number] : 1945 Provider: Dr. Moon de la cruz MD Age/Sex: 79/F Location[place] [facility] Status: Signed Intake Vital Signs 09/03/24 09:55 [...] Reasons: Possible Cellulitus Chief Complaint: Possible cellulitis [employer] Forms Builder Required: No Accompanied by: Self Is patient [...] in the past year?: No [facility] Medical History (Updated 02/18/25 @ 14:45 by [...] History of (more content not included)... Normal [facility] PT D/C Summary (1)on 025 PT D/C Summary (1) [facility] Physical Therapy [facility] [address] [place] [address] [address] [place] [address] / REHABILITATION SERVICES DISCHARGE SUMMARY MR#: [id number] Acct: [id number] Name: VANESSA HERNANDEZ Rep #: [id number] : 1945 79 From: Dulce Maria LOPEZ Referring Dr.: Dr. Moon Raoy MD Status: R EG RCR Insurance: [facility] MEDICARE SENIOR [place] [employer] PAY INSURANCE Discharge [...] please feel free to call me at [phone]. Thank you for the referral of this patient. Sincerely, Dulce Maria Lance, JOHN Balance/Gait/Functiona l tests Balance/Special Test Scores Lower Extremity Functional Score: 44 Improvement % Improvement: 90 01/28/25 0958 CC: Dr. Mono Rayo MD Signed Normal [facility] Inital Evaluation (1) - PTon 12-19-2024 Inital Evaluation (1) - PT [facility] Physical Therapy [address] [place] [address] / REHABILITATION SERVICES INITIAL EVALUATION MR#: [id number] Acct: [id number] Name: VANESSA HERNANDEZ Rep #: [id number] : 1945 79 From: Dulce Maria LOPEZ [...] and out of her home. She has jain friends that take her to the grocery store. If she goes to [facility] then she will use a rolling [...] Thank you (more content not included)... Normal [facility] MR/BMS.[facility] 09-03-2024 MR/BMS.IMB [facility] [address] [facility] [place] [address] OFFICE VISIT Date of Service: 09/03/24 MR#: [id number] Acct: [id number] Name: VANESSA HERNANDEZ Rep #: [id number] : 1945 Provider: Dr. Moon de la cruz MD Age/Sex: 79/F Location: [facility] Status: Signed Intake Vital Signs 08/26/24 [...] Delivery Method room air Intake Visit Reasons: [facility] FU Chief Complaint: [facility] FU Mold Forms Builder Required: No Accompanied by: Friend Is patient [...] Hypertension Ca (more content not included)... Normal [facility] Urine Cultureon 08-28-2024 URC Mixed Gram Positive Organisms [place] Count 25,000-50,000 MIXC Mixed contaminants. Submit a new specimen if indicated. Normal [facility] Comment on above: Performed By: #### L 500.4050, L100.0100 #### [facility] Laboratory [address] [place], [place], [id number] Basic Metabolic Profile (BMP )on 08-26-2024 BUN/CRE 33.6 RATIO High 10-20 [facility] Comment on above: Performed By: #### L 100.0100, L500.2500 #### [facility] [address] [place], [address] CA,Total 9.0 mg/dL Normal 8.5-10.1 [facility] Comment on above: Performed By: #### L 100.0100, L500.2500 #### [facility] [address] [place], [address] Chloride [Moles/Vol] 107 mmol/L Normal 98-107 [facility] Comment on above: Performed By: #### L 100.0100, L500.2500 #### [facility] [address] [place], [address] CO2 [Moles/Vol] 27.0 mmol/L Normal 21.0-32.0 [facility] Comment on above: Performed By: #### L 100.0100, L500.2500 #### [facility] [address] [place], [address] Creatinine [Mass/Vol] 0.65 mg/dL Normal 0.55-1.02 [facility] Comment on above: Result Comment: The validity of the calculated GFR GFRAA in patients over 70 years has not been determined. Clinical correlation is essential. Performed By: #### L 100.0100, L500.2500 #### [facility] [address] [place], [address] ECRCL 66.79 ml/min Normal [facility] Comment on above: Performed By: #### L 100.0100, L500.2500 #### [facility] [address] [place], [address] EST GFR - AA 112 mL/min Normal >60 [facility] Comment on above: Result Comment: Afri can Malaysian GFR Calc Performed By: #### L 100.0100, L500.2500 #### [facility] [address] [place], [address] GAP 8 Normal 5-15 [facility] Comment on above: Performed By: #### L 100.0100, L500.2500 #### [facility] [address] [place], [address] GFR/1.73 sq M.predicted among non-blacks MDRD (S/P/Bld) [Vol rate/Area] 93 mL/min/{1.73_m2} Normal >60 [facility] Comment on above: Result Comment: Non- GFR Calc Performed By: #### L 100.0100, L500.2500 #### [facility] [address] [place], [address] Glucose [Mass/Vol] 94 mg/dL Normal 74-106 [facility] Comment on above: Performed By: #### L 100.0100, L500.2500 #### [facility] [address] [place], [address] Potassium [Moles/Vol] 3.8 mmol/L Normal 3.5-5.1 [facility] Comment on above: Performed By: #### L 100.0100, L500.2500 #### [facility] [address] [place], [address] Sodium [Moles/Vol] 141 mmol/L Normal 136-145 [facility] Comment on above: Performed By: #### L 100.0100, L500.2500 #### [facility] [address] [place], [address] Urea nitrogen [Mass/Vol] 22 mg/dL High 7-18 [facility] Comment on above: Performed By: #### L 100.0100, L500.2500 #### [facility] [address] [place], [address] Brain/Head without Contrasto n 08-26-2024 Brain/Head without Contrast [facility] Imaging Services [address] [place] [address] Brain/Head without Contrast MR#: [id number] Acct: [id number] Name: VANESSA HERNANDEZ Rep #: [id number] : 1945 F 79 From: Tay Cuellar MD PCP: Dr. Moon Rayo MD Status: REG ER Study: Brain/Head without Contrast Date of Exam: 09/18 Exam# [id number] Ordering Dr: Abhay Barrios DO EXAM: BRAIN/HEAD [...] evidence of acute intracranial pathology. Reading Location: [facility] CC: Dr. Abhay Barrios DO; Dr. Moon Rayo MD [employer]: Signed Normal [facility] CBC W/Diff, Automatedon Absolute Lymph 1.96 X10 3/uL Normal 0.83-4.51 [facility] Comment on above: Performed By: #### L 100.0100, L500.2500 #### [facility] [address] [place], [address] Absolute Neut 9.0 X10 3/uL High 2.0-7.7 [facility] Comment on above: Performed By: #### L 100.0100, L500.2500 #### [facility] [address] [place], [address] Basophils/100 WBC (Bld) 0.5 % Normal 0-[address] [facility] Comment on above: Performed By: #### L 100.0100, L500.2500 #### [facility] [address] [place], [address] Eosinophils/100 WBC (Bld) 0.9 % Normal 0-5 [facility] Comment on above: Performed By: #### L 100.0100, L500.2500 #### [facility] [address] [place], [address] Erythrocyte distribution width (RBC) [Ratio] 19.6 % High 11.6-14.6 [facility] Comment on above: Performed By: #### L 100.0100, L500.2500 #### [facility] [address] [place], [address] Hematocrit (Bld) [Volume fraction] 38.8 % Normal 37-47 [facility] Comment on above: Performed By: #### L 100.0100, L500.2500 #### [facility] [address] [place], [address] Hemoglobin (Bld) [Mass/Vol] 11.7 g/dL Low 12.0-15.0 [facility] Comment on above: Performed By: #### L 100.0100, L500.2500 #### [facility] [address] [place], [address] IG% 0.700 Normal 0.0-0.9 [facility] Comment on above: Result Comment: IG% - Immature Granulocytes (promyelocytes, myelocytes and metamyelocytes) > 1% indicates that a LEFT SHIFT is Present. Performed By: #### L 100.0100, L500.2500 #### [facility] [address] [place], [address] Lymphocytes/100 WBC (Bld) 15.6 % Low 19-41 [facility] Comment on above: Performed By: #### L 100.0100, L500.2500 #### [facility] [address] [place], [address] MCH (RBC) [Entitic mass] 24.7 pg Low 27.0-32.0 [facility] Comment on above: Performed By: #### L 100.0100, L500.2500 #### [facility] [address] [place], [address] MCHC (RBC) [Mass/Vol] 30.2 g/dL Low 32-36 [facility] Comment on above: Performed By: #### L 100.0100, L500.2500 #### [facility] [address] [place], [address] MCV (RBC) [Entitic vol] 82.0 fL Normal 81-[address] [facility] Comment on above: Performed By: #### L 100.0100, L500.2500 #### [facility] [address] [place], [address] Monocytes/100 WBC (Bld) 10.7 % High 0-[address] [facility] Comment on above: Performed By: #### L 100.0100, L500.2500 #### [facility] [address] [place], [address] Neutrophils/100 WBC (Bld) 71.6 % High 47-70 [facility] Comment on above: Performed By: #### L 100.0100, L500.2500 #### [facility] [address] [place], [address] Nucleated RBC (Bld) [#/Vol] 0 10*3/uL Normal 0-5 [facility] Comment on above: Performed By: #### L 100.0100, L500.2500 #### [facility] [address] [place], [address] Platelet mean volume (Bld) [Entitic vol] 9.5 fL Normal 6.2-12.0 [facility] Comment on above: Performed By: #### L 100.0100, L500.2500 #### [facility] [address] [place], [address] Platelets (Bld) [#/Vol] 260 10*3/uL Normal 150-450 [facility] Comment on above: Performed By: #### L 100.0100, L500.2500 #### [facility] [address] [place], [address] RBC (Bld) [#/Vol] 4.73 10*6/uL Normal 4.2-5.4 [facility] Comment on above: Performed By: #### L 100.0100, L500.2500 #### [facility] [address] [place], [address] RDW SD 58.7 fl High 35.1-43.9 [facility] Comment on above: Performed By: #### L 100.0100, L500.2500 #### [facility] [address] [place], [address] WBC (Bld) [#/Vol] 12.5 10*3/uL High 4.4-11.0 [facility] Comment on above: Performed By: #### L 100.0100, L500.2500 #### [facility] [address] [place], [address] Emergency Department Summary on 08-26-2024 Emergency Department Summary [facility] Medical Records Department [address] [place] [address] Emergency Department Summary 08/26/24 MR#: [id number] Acct: [id number] Name: VANESSA HERNANDEZ Nitza Rep #: [id number] : 1945 79 From: Abhay Barrios DO [...] states that she was getting up for jain when she rolled out of bed. States [...] 15 Psych: Cooperative, appropriate mood and affect [facility] Medical History Urinary incontinence Right [...] M) ondansetron (more content not included)... Normal [facility] Spine Cervical without Contr ason 08-26-2024 Spine Cervical without Contras [facility] Imaging Services [address] [place] [address] Spine Cervical without Contras MR#: [id number] Acct: [id number] Name: VANESSA HERNANDEZ Rep #: [id number] : 1945 F 79 From: Tay Cuellar MD PCP: Dr. Moon Rayo MD Status: REG ER Study: Spine Cervical without Contras Date of Exam: 0 08/26/24 Exam# [id number] Ordering Dr: Abhay Barrios DO PROCEDURE: SPINE [...] use of iterative reconstruction technique). Reading [facility] CC: Dr. Abhay Barrios DO; Dr. Moon Rayo MD [employer]: Signed Normal [facility] Urinalysis, Completeon 08-26 BACTERIA 1+ /hpf Normal None Seen [facility] Comment on above: Order Comment: COLLE CTOR TO SPECIFY Performed By: #### L 400.0001 #### [facility] [address] [facility] [place], [address] CA OX CRYSTAL 1+ /hpf Normal [facility] Comment on above: Order Comment: FREEMAN CTOR TO SPECIFY Performed By: #### L 400.0001 #### [facility] [address] [place], [address] EPI,SQUAMOUS 0-5 SEEN Normal 5-10 [facility] Comment on above: Order Comment: FREEMAN CTOR TO SPECIFY Performed By: #### L 400.0001 #### [facility] [address] [place], [address] RBC 0-5 SEEN Normal 0-5 [facility] Comment on above: Order Comment: FREEMAN CTOR TO SPECIFY Performed By: #### L 400.0001 #### [facility] [address] [place], [address] WBC 5-10 SEEN Normal 0-5 [facility] Comment on above: Order Comment: FREEMAN CTOR TO SPECIFY Performed By: #### L 400.0001 #### [facility] [address] [place], [address] Mucus Ql (Urine sed) 0 SEEN Normal [facility] Comment on above: Order Comment: FREEMAN CTOR TO SPECIFY Performed By: #### L 400.0001 #### [facility] [address] [place], [address] CBC W/Diff, Automatedon 12-2 PLT MORPH GIANT Normal [facility] Comment on above: Performed By: #### L 500.4050, L100.0100 #### [facility] [address] [place], [address] Anisocytosis Ql (Bld) 1+ Normal [facility] Comment on above: Performed By: #### L 500.4050, L100.0100 #### [facility] [address] [place], [address] ATYPICAL LYMPH RARE Normal [facility] Comment on above: Performed By: #### L 500.4050, L100.0100 #### [facility] [address] [place], [address] OVALOCYTE RARE Normal [facility] Comment on above: Performed By: #### L 500.4050, L100.0100 #### [facility] [address] [place], [address] Comprehensive Metabolic Prof ilon 07-14-2024 Albumin [Mass/Vol] 4.0 g/dL Normal 3.2-5.0 [facility] Comment on above: Performed By: #### L 500.4050, L100.0100 #### [facility] [address] [place], [address] Albumin/Globulin [Mass ratio] 1.0 {ratio} Normal 0.9-2.4 [facility] Comment on above: Performed By: #### L 500.4050, L100.0100 #### [facility] [address] [place], [address] ALK P 99 U/L Normal 45-117 [facility] Comment on above: Performed By: #### L 500.4050, L100.0100 #### [facility] [address] [place], [address] ALT [Catalytic activity/Vol] 81 U/L High 13-56 [facility] Comment on above: Performed By: #### L 500.4050, L100.0100 #### [facility] [address] [place], [address] AST [Catalytic activity/Vol] 97 U/L High 15-37 [facility] Comment on above: Performed By: #### L 500.4050, L100.0100 #### [facility] [address] [place], [address] Bilirubin [Mass/Vol] 0.50 mg/dL Normal 0.20-1.00 [facility] Comment on above: Result Comment: For patients on eltrombopag therapy, use of Dimension Bumpass TBIL is not recommended. Performed By: #### L 500.4050, L100.0100 #### [facility] [address] [place], [address] BUN/CRE 13.8 RATIO Normal 10-20 [facility] Comment on above: Performed By: #### L 500.4050, L100.0100 #### [facility] [address] [place], [address] CA,Total 9.8 mg/dL Normal 8.5-10.1 [facility] Comment on above: Performed By: #### L 500.4050, L100.0100 #### [facility] [address] [place], [address] Chloride [Moles/Vol] 103 mmol/L Normal 98-107 [facility] Comment on above: Performed By: #### L 500.4050, L100.0100 #### [facility] [address] [place], [address] CO2 [Moles/Vol] 28.0 mmol/L Normal 21.0-32.0 [facility] Comment on above: Performed By: #### L 500.4050, L100.0100 #### [facility] [address] [place], [address] Creatinine [Mass/Vol] 0.73 mg/dL Normal 0.55-1.02 [facility] Comment on above: Result Comment: The validity of the calculated GFR GFRAA in patients over 70 years has not been determined. Clinical correlation is essential. Performed By: #### L 500.4050, L100.0100 #### [facility] [address] [place], [address] ECRCL 56.19 ml/min Normal [facility] Comment on above: Performed By: #### L 500.4050, L100.0100 #### [facility] [address] [place], [address] EST GFR - AA 100 mL/min Normal >60 [facility] Comment on above: Result Comment: Afri can Malaysian GFR Calc Performed By: #### L 500.4050, L100.0100 #### [facility] [address] [place], [address] GAP 8 Normal 5-15 [facility] Comment on above: Performed By: #### L 500.4050, L100.0100 #### [facility] [address] [place], [address] GFR/1.73 sq M.predicted among non-blacks MDRD (S/P/Bld) [Vol rate/Area] 82 mL/min/{1.73_m2} Normal >60 [facility] Comment on above: Result Comment: Non- GFR Calc Performed By: #### L 500.4050, L100.0100 #### [facility] [address] [place], [address] Globulin (S) [Mass/Vol] 4.1 g/dL Normal 2.2-4.2 [facility] Comment on above: Performed By: #### L 500.4050, L100.0100 #### [facility] [address] [place], [address] Glucose [Mass/Vol] 106 mg/dL Normal 74-106 [facility] Comment on above: Result Comment: Fast ing Glucose result from 100 to 125 mg/dL suggests IMPAIRED HOMEOSTASIS per A.D.A. criteria. Performed By: #### L 500.4050, L100.0100 #### [facility] [address] [place], [address] Potassium [Moles/Vol] 3.0 mmol/L Low 3.5-5.1 [facility] Comment on above: Performed By: #### L 500.4050, L100.0100 #### [facility] [address] [place], [address] Sodium [Moles/Vol] 138 mmol/L Normal 136-145 [facility] Comment on above: Performed By: #### L 500.4050, L100.0100 #### [facility] [address] [place], [address] T PROT 8.1 g/dL Normal 6.4-8.2 [facility] Comment on above: Performed By: #### L 500.4050, L100.0100 #### [facility] [address] [place], [address] Urea nitrogen [Mass/Vol] 10 mg/dL Normal 7-18 [facility] Comment on above: Performed By: #### L 500.4050, L100.0100 #### [facility] [address] [place], [address] Emergency Department Summary on 07-14-2024 Emergency Department Summary [facility] Medical Records Department [address] [place] [address] Emergency Department Summary 07/14/24 MR#: [id number] Acct: [id number] Name: VANESSA HERNANDEZ Nitza Rep #: [id number] : 1945 79 From: Jose Antonio Marte [...] History Hist (more content not included)... Normal [facility] CBC W/Diff, Automatedon 11-0 -2023 Absolute Lymph 1.81 X10 3/uL Normal 0.83-4.51 [facility] Comment on above: Performed By: #### L 503.6030, L501.9520, L503.0105, L500.4100, L501.5200, L506.1000, L500.4050, L100.0100 #### [facility] [address] [place], [address] Absolute Neut 7.8 X10 3/uL High 2.0-7.7 [facility] Comment on above: Performed By: #### L 503.6030, L501.9520, L503.0105, L500.4100, L501.5200, L506.1000, L500.4050, L100.0100 #### [facility] [address] [place], [address] Basophils/100 WBC (Bld) 0.2 % Normal 0-[address] [facility] Comment on above: Performed By: #### L 503.6030, L501.9520, L503.0105, L500.4100, L501.5200, L506.1000, L500.4050, L100.0100 #### [facility] [address] [place], [address] Eosinophils/100 WBC (Bld) 1.7 % Normal 0-5 [facility] Comment on above: Performed By: #### L 503.6030, L501.9520, L503.0105, L500.4100, L501.5200, L506.1000, L500.4050, L100.0100 #### [facility] [address] [place], [address] Erythrocyte distribution width (RBC) [Ratio] 19.0 % High 11.6-14.6 [facility] Comment on above: Performed By: #### L 503.6030, L501.9520, L503.0105, L500.4100, L501.5200, L506.1000, L500.4050, L100.0100 #### [facility] [address] [place], [address] Hematocrit (Bld) [Volume fraction] 37.5 % Normal 37-47 [facility] Comment on above: Performed By: #### L 503.6030, L501.9520, L503.0105, L500.4100, L501.5200, L506.1000, L500.4050, L100.0100 #### [facility] [address] [place], [address] Hemoglobin (Bld) [Mass/Vol] 10.8 g/dL Low 12.0-15.0 [facility] Comment on above: Performed By: #### L 503.6030, L501.9520, L503.0105, L500.4100, L501.5200, L506.1000, L500.4050, L100.0100 #### [facility] [address] [facility] [place], [address] IG% 0.600 Normal 0.0-0.9 [facility] Comment on above: Result Comment: IG% - Immature Granulocytes (promyelocytes, myelocytes and metamyelocytes) > 1% indicates that a LEFT SHIFT is Present. Performed By: #### L 503.6030, L501.9520, L503.0105, L500.4100, L501.5200, L506.1000, L500.4050, L100.0100 #### [facility] [address] [place], [address] Lymphocytes/100 WBC (Bld) 16.4 % Low 19-41 [facility] Comment on above: Performed By: #### L 503.6030, L501.9520, L503.0105, L500.4100, L501.5200, L506.1000, L500.4050, L100.0100 #### [facility] [address] [place], [address] MCH (RBC) [Entitic mass] 22.6 pg Low 27.0-32.0 [facility] Comment on above: Performed By: #### L 503.6030, L501.9520, L503.0105, L500.4100, L501.5200, L506.1000, L500.4050, L100.0100 #### [facility] [address] [place], [address] MCHC (RBC) [Mass/Vol] 28.8 g/dL Low 32-36 [facility] Comment on above: Performed By: #### L 503.6030, L501.9520, L503.0105, L500.4100, L501.5200, L506.1000, L500.4050, L100.0100 #### [facility] [address] [place], [address] MCV (RBC) [Entitic vol] 78.6 fL Low 81-[address] [facility] Comment on above: Performed By: #### L 503.6030, L501.9520, L503.0105, L500.4100, L501.5200, L506.1000, L500.4050, L100.0100 #### [facility] [address] [place], [address] Monocytes/100 WBC (Bld) 10.3 % High 0-[address] [facility] Comment on above: Performed By: #### L 503.6030, L501.9520, L503.0105, L500.4100, L501.5200, L506.1000, L500.4050, L100.0100 #### [facility] [address] [place], [address] Neutrophils/100 WBC (Bld) 70.8 % High 47-70 [facility] Comment on above: Performed By: #### L 503.6030, L501.9520, L503.0105, L500.4100, L501.5200, L506.1000, L500.4050, L100.0100 #### [facility] [address] [place], [address] Nucleated RBC (Bld) [#/Vol] 0 10*3/uL Normal 0-5 [facility] Comment on above: Performed By: #### L 503.6030, L501.9520, L503.0105, L500.4100, L501.5200, L506.1000, L500.4050, L100.0100 #### [facility] [address] [place], [address] Platelet mean volume (Bld) [Entitic vol] 9.7 fL Normal 6.2-12.0 [facility] Comment on above: Performed By: #### L 503.6030, L501.9520, L503.0105, L500.4100, L501.5200, L506.1000, L500.4050, L100.0100 #### [facility] [address] [place], [address] Platelets (Bld) [#/Vol] 322 10*3/uL Normal 150-450 [facility] Comment on above: Performed By: #### L 503.6030, L501.9520, L503.0105, L500.4100, L501.5200, L506.1000, L500.4050, L100.0100 #### [facility] [address] [place], [address] RBC (Bld) [#/Vol] 4.77 10*6/uL Normal 4.2-5.4 [facility] Comment on above: Performed By: #### L 503.6030, L501.9520, L503.0105, L500.4100, L501.5200, L506.1000, L500.4050, L100.0100 #### [facility] [address] [place], [address] RDW SD 53.4 fl High 35.1-43.9 [facility] Comment on above: Performed By: #### L 503.6030, L501.9520, L503.0105, L500.4100, L501.5200, L506.1000, L500.4050, L100.0100 #### [facility] [address] [place], [place], [id number] ([address]) WBC (Bld) [#/Vol] 11.1 10*3/uL High 4.4-11.0 [facility] Comment on above: Performed By: #### L 503.6030, L501.9520, L503.0105, L500.4100, L501.5200, L506.1000, L500.4050, L100.0100 #### [facility] [address] [place], [place], [id number] Comprehensive Metabolic Prof ilon 05-28-2024 Albumin [Mass/Vol] 3.5 g/dL Normal 3.2-5.0 [facility] Comment on above: Performed By: #### L 503.6030, L501.9520, L503.0105, L500.4100, L501.5200, L506.1000, L500.4050, L100.0100 #### [facility] [address] [place], [address] Albumin/Globulin [Mass ratio] 0.9 {ratio} Normal 0.9-2.4 [facility] Comment on above: Performed By: #### L 503.6030, L501.9520, L503.0105, L500.4100, L501.5200, L506.1000, L500.4050, L100.0100 #### [facility] [address] [place], [address] ALK P 115 U/L Normal 45-117 [facility] Comment on above: Performed By: #### L 503.6030, L501.9520, L503.0105, L500.4100, L501.5200, L506.1000, L500.4050, L100.0100 #### [facility] [address] [place], [address] ALT [Catalytic activity/Vol] 46 U/L Normal 13-56 [facility] Comment on above: Performed By: #### L 503.6030, L501.9520, L503.0105, L500.4100, L501.5200, L506.1000, L500.4050, L100.0100 #### [facility] [address] [place], [address] AST [Catalytic activity/Vol] 37 U/L Normal 15-37 [facility] Comment on above: Performed By: #### L 503.6030, L501.9520, L503.0105, L500.4100, L501.5200, L506.1000, L500.4050, L100.0100 #### [facility] [address] [place], [address] Bilirubin [Mass/Vol] 0.30 mg/dL Normal 0.20-1.00 [facility] Comment on above: Result Comment: For patients on eltrombopag therapy, use of Dimension [place]ump[place] TBIL is not recommended. Performed By: #### L 503.6030, L501.9520, L503.0105, L500.4100, L501.5200, L506.1000, L500.4050, L100.0100 #### [facility] [address] [place], [address] BUN/CRE 27.8 RATIO High 10-20 [facility] Comment on above: Performed By: #### L 503.6030, L501.9520, L503.0105, L500.4100, L501.5200, L506.1000, L500.4050, L100.0100 #### [facility] [address] [place], [address] CA,Total 9.1 mg/dL Normal 8.5-10.1 [facility] Comment on above: Performed By: #### L 503.6030, L501.9520, L503.0105, L500.4100, L501.5200, L506.1000, L500.4050, L100.0100 #### [facility] [address] [place], [address] Chloride [Moles/Vol] 107 mmol/L Normal 98-107 [facility] Comment on above: Performed By: #### L 503.6030, L501.9520, L503.0105, L500.4100, L501.5200, L506.1000, L500.4050, L100.0100 #### [facility] [address] [place], [address] CO2 [Moles/Vol] 26.0 mmol/L Normal 21.0-32.0 [facility] Comment on above: Performed By: #### L 503.6030, L501.9520, L503.0105, L500.4100, L501.5200, L506.1000, L500.4050, L100.0100 #### [facility] [address] [place], [address] Creatinine [Mass/Vol] 0.68 mg/dL Normal 0.55-1.02 [facility] Comment on above: Result Comment: The validity of the calculated GFR GFRAA in patients over 70 years has not been determined. Clinical correlation is essential. Performed By: #### L 503.6030, L501.9520, L503.0105, L500.4100, L501.5200, L506.1000, L500.4050, L100.0100 #### [facility] [address] [place], [address] EST GFR - AA 107 mL/min Normal >60 [facility] Comment on above: Result Comment: Afri can Malaysian GFR Calc Performed By: #### L 503.6030, L501.9520, L503.0105, L500.4100, L501.5200, L506.1000, L500.4050, L100.0100 #### [facility] [address] [place], [address] GAP 8 Normal 5-15 [facility] Comment on above: Performed By: #### L 503.6030, L501.9520, L503.0105, L500.4100, L501.5200, L506.1000, L500.4050, L100.0100 #### [facility] [address] [place], [address] GFR/1.73 sq M.predicted among non-blacks MDRD (S/P/Bld) [Vol rate/Area] 88 mL/min/{1.73_m2} Normal >60 [facility] Comment on above: Result Comment: Non- GFR Calc Performed By: #### L 503.6030, L501.9520, L503.0105, L500.4100, L501.5200, L506.1000, L500.4050, L100.0100 #### [facility] [address] [place], [address] Globulin (S) [Mass/Vol] 3.8 g/dL Normal 2.2-4.2 [facility] Comment on above: Performed By: #### L 503.6030, L501.9520, L503.0105, L500.4100, L501.5200, L506.1000, L500.4050, L100.0100 #### [facility] [address] [place], [address] Glucose [Mass/Vol] 112 mg/dL High 74-106 [facility] Comment on above: Result Comment: Fast ing Glucose result from 100 to 125 mg/dL suggests IMPAIRED HOMEOSTASIS per A.D.A. criteria. Performed By: #### L 503.6030, L501.9520, L503.0105, L500.4100, L501.5200, L506.1000, L500.4050, L100.0100 #### [facility] [address] [place], [address] Potassium [Moles/Vol] 3.7 mmol/L Normal 3.5-5.1 [facility] Comment on above: Performed By: #### L 503.6030, L501.9520, L503.0105, L500.4100, L501.5200, L506.1000, L500.4050, L100.0100 #### [facility] [address] [place], [address] Sodium [Moles/Vol] 142 mmol/L Normal 136-145 [facility] Comment on above: Performed By: #### L 503.6030, L501.9520, L503.0105, L500.4100, L501.5200, L506.1000, L500.4050, L100.0100 #### [facility] [address] [place], [address] T PROT 7.3 g/dL Normal 6.4-8.2 [facility] Comment on above: Performed By: #### L 503.6030, L501.9520, L503.0105, L500.4100, L501.5200, L506.1000, L500.4050, L100.0100 #### [facility] [address] [place], [address] Urea nitrogen [Mass/Vol] 19 mg/dL High 7-18 [facility] Comment on above: Performed By: #### L 503.6030, L501.9520, L503.0105, L500.4100, L501.5200, L506.1000, L500.4050, L100.0100 #### [facility] [address] [place], [address] Iron+Iron Binding Capacityon 05-28-2024 Iron [Mass/Vol] 22 ug/dL Low 50-170 [facility] Comment on above: Performed By: #### L 500.4050, L100.0100 #### [facility] [address] [place], [address] IRON SATURATION 4.9 Low 15.0-55.0 [facility] Comment on above: Performed By: #### L 500.4050, L100.0100 #### [facility] [address] [place], [address] TIBC 449 ug/dL Normal 250-450 [facility] Comment on above: Performed By: #### L 500.4050, L100.0100 #### [facility] [address] [place], [address] Lipid Profileon 05-28-2024 Cholesterol [Mass/Vol] 144 mg/dL Normal 200 [facility] Comment on above: Result Comment: <200 mg/dL Desirable 200-240 mg/dL Borderline >240 mg/dL High Risk Performed By: #### L 500.4050, L100.0100 #### [facility] [address] [place], [address] Cholesterol in HDL [Mass/Vol] 57 mg/dL Normal [facility] Comment on above: Result Comment: The drugs N-Acetylcysteine and Metamizole may falsely depress this assay. Reference Range HDL <40 mg/dL Low HDL Cholesterol HDL >or= 60 mg/dL High HDL Cholesterol Performed By: #### L 500.4050, L100.0100 #### [facility] [address] [place], [address] Cholesterol in LDL [Mass/Vol] 59 mg/dL Normal 0-130 [facility] Comment on above: Performed By: #### L 500.4050, L100.0100 #### [facility] [address] [place], [address] Cholesterol in VLDL [Mass/Vol] 28 mg/dL Normal 5-40 [facility] Comment on above: Performed By: #### L 500.4050, L100.0100 #### [facility] [address] [place], [address] Triglyceride [Mass/Vol] 140 mg/dL Normal [facility] Comment on above: Result Comment: The drugs N-Acetylcysteine and Metamizole may falsely depress this assay. Serum Triglycerides Reference Interval Normal <150 mg/dL Borderline high 150 - 199 mg/dL High 200 - 499 mg/dL Very High > or = 500 mg/dL Performed By: #### L 500.4050, L100.0100 #### [facility] [address] [place], [address] Magnesiumon 05-28-2024 Magnesium [Mass/Vol] 2.3 mg/dL Normal 1.6-2.6 [facility] Comment on above: Performed By: #### L 500.4050, L100.0100 #### [facility] [address] [place], [address] Thyroid Stim Hormone (TSH)on 05-28-2024 TSH 2.770 uIU/mL Normal 0.358-3.740 [facility] Comment on above: Performed By: #### L 500.4050, L100.0100 #### [facility] [address] [place], [address] Vitamin B12on 05-28-2024 Cobalamin (Vitamin B12) [Mass/Vol] 293 pg/mL Normal 211-911 [facility] Comment on above: Performed By: #### L 503.6030, L501.9520, L503.0105, L500.4100, L501.5200, L506.1000, L500.4050, L100.0100 #### [facility] [address] [place], [address] Vitamin D,25 Hydroxyon 05-28 Vitamin D 25-OH 13.1 ng/mL Normal [facility] Comment on above: Result Comment: Livia min D 25(OH) Status Range Deficiency <20 ng/mL (50nmol/L) Insufficiency 20 - 30 ng/mL (50 - 75 nmol/L) Sufficiency 30 - 100 ng/mL (75 - 250 nmol/L) Toxicity >100 ng/mL (>250 nmol/L) Performed By: #### L 503.6030, L501.9520, L503.0105, L500.4100, L501.5200, L506.1000, L500.4050, L100.0100 #### [facility] [address] [place], [address] ESRon 10-25-2023 Erythrocyte Sed Rate 72 mm/hr High 0-30 [facility] ([place]) Comment on above: Performed By: #### E SR #### [address] [address] LABORATORYOrdered By: Chito Rao on 10-25-2023 ESR Photometric method (Bld) [Velocity] 72 mm/hr High 0 - 30 mm/hr AO Man Heme SS Absolute lymphocyte countOrd ered By: Moon Rayo on 10-24-2023 Lymphocytes Auto (Unsp spec) [#/Vol] 1.62 10*3/uL 0.83-4.51 [facility] Automated lymphocyte count a s percentage of total leukocytesOrdered By: Moon Rayo on 10-24-2023 Lymphocytes/100 WBC Auto (Unsp spec) 12.4 % 19-41 [facility] Basophil percentageOrdered B y: Moon Rayo on 10-24-2023 Basophil percentage 11.3 g/dL 12.0-15.0 [facility] Basophil percentage 86 mg/dL 74-106 [facility] Basophil percentage 138 mmol/L 136-145 [facility] Basophil percentage 3.4 mmol/L 3.5-5.1 [facility] Basophil percentage 104 mmol/L 98-107 [facility] Basophils (Bld) [#/Vol] 13.1 10*3/uL 4.4-11.0 [facility] Basophils (Bld) [#/Vol] 9.8 10*3/uL 2.0-7.7 [facility] Basophils/100 WBC (Bld) 74.4 % 47-[address] [facility] Basophils/100 WBC (Bld) 11.3 % 0-[address] [facility] Basophils/100 WBC (Bld) 1.0 % 0-[address] [facility] Basophils/100 WBC (Bld) 0.4 % 0-[address] [facility] Determination of erythrocyte mean corpuscular volume (MCV)Ordered By: Moon Rayo on 10-24-2023 MCV (RBC) [Entitic vol] 78.1 fL 81-[address] [facility] Erythrocyte distribution wid th ratioOrdered By: Moon Rayo on 10-24-2023 Erythrocyte distribution width (RBC) [Ratio] 19.1 % 11.6-14.6 [facility] Erythrocyte distribution wid th standard deviationOrdered By: Moon Rayo on 10-24-2023 Erythrocyte distribution width (RBC) [Entitic vol] 53.7 fL 35.1-43.9 [facility] Erythrocyte sedimentation ra teOrdered By: Moon Rayo on 10-24-2023 ESR (Bld) [Velocity] 72 mm/h 0-30 [facility] Hematocrit Auto (Bld) [Volum e fraction]Ordered By: Moon Rayo on 10-24-2023 Hematocrit (Bld) [Volume fraction] 38.8 % 37-47 [facility] Immature granulocytes/100 WB C Auto (Bld)Ordered By: Moon Rayo on 10-24-2023 Immature granulocytes/100 WBC (Bld) 0.500 % 0.0-0.9 [facility] No Panel InformationOrdered By: Moon Rayo on 10-24-2023 22.7 pg 27.0-32.0 [facility] 29.1 g/dL 32-36 [facility] 319 K/mm3 150-450 [facility] 9.4 fl 6.2-12.0 [facility] 0 % 0-5 [facility] 74 mL/min >60 [facility] 90 mL/min >60 [facility] 13.9 RATIO 10-20 [facility] 28.0 mmol/L 21.0-32.0 [facility] 50.30 mg/L 0.0-3.0 [facility] RBC Auto (Bld) [#/Vol]Ordere d By: Moon Rayo on 10-24-2023 RBC (Bld) [#/Vol] 4.97 10*6/uL 4.2-5.4 [facility] Serum or plasma calcium gustavo urement (mass/volume)Ordered By: Moon Rayo on 10-24-2023 Calcium [Mass/Vol] 9.2 mg/dL 8.5-10.1 [facility] Serum or plasma creatinine m easurement (mass/volume)Ordered By: Moon Rayo on 10-24-2023 Creatinine [Mass/Vol] 0.79 mg/dL 0.55-1.02 [facility] Serum or plasma urea nitroge n measurement (mass/volume)Ordered By: Moon Rayo on 10-24-2023 Urea nitrogen [Mass/Vol] 11 mg/dL 7-18 [facility] Serum or plasma uric acid me asurement (mass/volume)Ordered By: Moon Rayo on 10-24-2023 Urate [Mass/Vol] 4.6 mg/dL 2.6-6.0 [facility] Thin prep Papanicolaou smear with manual screeningOrdered By: Moon Rayo on 10-24-2023 Thin prep Papanicolaou smear with manual screening 6 5-15 [facility] [facility] Basophil percentageOrdered B y: Bhavna Andino on 10-03-2023 Basophil percentage 9.9 g/dL 12.0-15.0 [facility] Basophil percentage 87 mg/dL 74-106 [facility] Basophil percentage 101 mg/dL <200 [facility] Basophil percentage 107 mg/dL <199 [facility] Basophil percentage 143 mmol/L 136-145 [facility] Basophil percentage 3.5 mmol/L 3.5-5.1 [facility] Basophil percentage 109 mmol/L 98-107 [facility] Basophils (Bld) [#/Vol] 7.8 10*3/uL 4.4-11.0 [facility] Determination of erythrocyte mean corpuscular volume (MCV)Ordered By: Bhavna Andino on 10-03-2023 MCV (RBC) [Entitic vol] 79.4 fL 81-[address] [facility] Erythrocyte distribution wid th ratioOrdered By: Bhavna Andino on 10-03-2023 Erythrocyte distribution width (RBC) [Ratio] 18.6 % 11.6-14.6 [facility] Erythrocyte distribution wid th standard deviationOrdered By: Bhavna Andino on 10-03-2023 Erythrocyte distribution width (RBC) [Entitic vol] 53.4 fL 35.1-43.9 [facility] Hematocrit Auto (Bld) [Volum e fraction]Ordered By: Bhavna Andino on 10-03-2023 Hematocrit (Bld) [Volume fraction] 34.4 % 37-47 [facility] No Panel InformationOrdered By: Bhavna Andino on 10-03-2023 22.9 pg 27.0-32.0 [facility] 28.8 g/dL 32-36 [facility] 340 K/mm3 150-450 [facility] 9.0 fl 6.2-12.0 [facility] 85 mL/min >60 [facility] 103 mL/min >60 [facility] 15.6 RATIO 10-20 [facility] 2.1 mg/dL 1.6-2.6 [facility] 28.0 mmol/L 21.0-32.0 [facility] 33 mg/dL >40 [facility] 47 mg/dL 0-130 [facility] 21 mg/dL 5-40 [facility] RBC Auto (Bld) [#/Vol]Ordere d By: Bhavna Andino on 10-03-2023 RBC (Bld) [#/Vol] 4.33 10*6/uL 4.2-5.4 [facility] Serum or plasma calcium gustavo urement (mass/volume)Ordered By: Bhavna Andino on 10-03-2023 Calcium [Mass/Vol] 8.9 mg/dL 8.5-10.1 [facility] Serum or plasma creatinine m easurement (mass/volume)Ordered By: Bhavna Andino on 10-03-2023 Creatinine [Mass/Vol] 0.70 mg/dL 0.55-1.02 [facility] Serum or plasma urea nitroge n measurement (mass/volume)Ordered By: Bhavna Andino on 10-03-2023 Urea nitrogen [Mass/Vol] 11 mg/dL 7-18 [facility] Thin prep Papanicolaou smear with manual screeningOrdered By: Bhavna Andino on 10-03-2023 Thin prep Papanicolaou smear with manual screening 6 5-15 [facility] Absolute lymphocyte countOrd ered By: Bhavna Andino on 09-29-2023 Lymphocytes Auto (Unsp spec) [#/Vol] 1.67 10*3/uL 0.83-4.51 [facility] Automated lymphocyte count a s percentage of total leukocytesOrdered By: Bhavna Andino on 09-29-2023 Lymphocytes/100 WBC Auto (Unsp spec) 18.8 % 19-41 [facility] Basophil percentageOrdered B y: Bhavna Andino on 09-29-2023 Basophil percentage 9.9 g/dL 12.0-15.0 [facility] Basophil percentage 99 mg/dL 74-106 [facility] Basophil percentage 143 mmol/L 136-145 [facility] Basophil percentage 3.2 mmol/L 3.5-5.1 [facility] Basophil percentage 106 mmol/L 98-107 [facility] Basophils (Bld) [#/Vol] 8.9 10*3/uL 4.4-11.0 [facility] Basophils (Bld) [#/Vol] 6.0 10*3/uL 2.0-7.7 [facility] Basophils/100 WBC (Bld) 67.6 % 47-[address] [facility] Basophils/100 WBC (Bld) 9.8 % 0-[address] [facility] Basophils/100 WBC (Bld) 3.2 % 0-[address] [facility] Basophils/100 WBC (Bld) 0.1 % 0-[address] [facility] Determination of erythrocyte mean corpuscular volume (MCV)Ordered By: Bhavna Andino on 09-29-2023 MCV (RBC) [Entitic vol] 78.5 fL 81-[address] [facility] Erythrocyte distribution wid th ratioOrdered By: Bhavna Andino on 09-29-2023 Erythrocyte distribution width (RBC) [Ratio] 18.5 % 11.6-14.6 [facility] Erythrocyte distribution wid th standard deviationOrdered By: Bhavna Andino on 09-29-2023 Erythrocyte distribution width (RBC) [Entitic vol] 52.2 fL 35.1-43.9 [facility] Hematocrit Auto (Bld) [Volum e fraction]Ordered By: Bhavna Andino on 09-29-2023 Hematocrit (Bld) [Volume fraction] 32.9 % 37-47 [facility] Immature granulocytes/100 WB C Auto (Bld)Ordered By: Bhavna Andino on 09-29-2023 Immature granulocytes/100 WBC (Bld) 0.500 % 0.0-0.9 [facility] No Panel InformationOrdered By: Bhavna Andino on 09-29-2023 23.6 pg 27.0-32.0 [facility] 30.1 g/dL 32-36 [facility] 302 K/mm3 150-450 [facility] 9.5 fl 6.2-12.0 [facility] 0 % 0-5 [facility] 83 mL/min >60 [facility] 101 mL/min >60 [facility] 20.8 RATIO 10-20 [facility] 2.1 mg/dL 1.6-2.6 [facility] 28.0 mmol/L 21.0-32.0 [facility] 198 pg/mL 211-911 [facility] 20.9 ng/mL [facility] RBC Auto (Bld) [#/Vol]Ordere d By: Bhavna Andino on 09-29-2023 RBC (Bld) [#/Vol] 4.19 10*6/uL 4.2-5.4 [facility] Serum or plasma calcium gustavo urement (mass/volume)Ordered By: Bhavna Andino on 09-29-2023 Calcium [Mass/Vol] 9.2 mg/dL 8.5-10.1 [facility] Serum or plasma creatinine m easurement (mass/volume)Ordered By: Bhavna Andino on 09-29-2023 Creatinine [Mass/Vol] 0.72 mg/dL 0.55-1.02 [facility] Serum or plasma urea nitroge n measurement (mass/volume)Ordered By: Bhavna Andino on 09-29-2023 Urea nitrogen [Mass/Vol] 15 mg/dL 7-18 [facility] Thin prep Papanicolaou smear with manual screeningOrdered By: Bhavna Andino on 09-29-2023 Thin prep Papanicolaou smear with manual screening 9 5-15 [facility] Whole blood hemoglobin A1c/t otal hemoglobin ratio (mass fraction)Ordered By: Bhavna Andino on 09-29-2023 HbA1c (Bld) [Mass fraction] 5.8 % 3.8-5.6 [facility] Absolute lymphocyte countOrd ered By: Mona Chery on 09-27-2023 Lymphocytes Auto (Unsp spec) [#/Vol] 2.00 10*3/uL 0.83-4.51 [facility] Automated lymphocyte count a s percentage of total leukocytesOrdered By: Mona Chery on 09-27-2023 Lymphocytes/100 WBC Auto (Unsp spec) 20.9 % 19-41 [facility] Basophil percentageOrdered B y: Mona Chery on 09-27-2023 Basophil percentage 10.0 g/dL 12.0-15.0 [facility] Basophil percentage 99 mg/dL 74-106 [facility] Basophil percentage 6.6 g/dL 6.4-8.2 [facility] Basophil percentage 3.4 mg/dL 2.5-4.9 [facility] Basophil percentage 0.60 mg/dL 0.20-1.00 [facility] Basophil percentage 116 mg/dL <200 [facility] Basophil percentage 108 mg/dL <199 [facility] Basophil percentage 138 mmol/L 136-145 [facility] Basophil percentage 3.5 mmol/L 3.5-5.1 [facility] Basophil percentage 105 mmol/L 98-107 [facility] Basophils (Bld) [#/Vol] 9.6 10*3/uL 4.4-11.0 [facility] Basophils (Bld) [#/Vol] 6.2 10*3/uL 2.0-7.7 [facility] Basophils/100 WBC (Bld) 64.8 % 47-[address] [facility] Basophils/100 WBC (Bld) 9.8 % 0-[address] [facility] Basophils/100 WBC (Bld) 3.8 % 0-[address] [facility] Basophils/100 WBC (Bld) 0.3 % 0-[address] [facility] Determination of erythrocyte mean corpuscular volume (MCV)Ordered By: Mona Chery on 09-27-2023 MCV (RBC) [Entitic vol] 77.8 fL 81-[address] [facility] Erythrocyte distribution wid th ratioOrdered By: Mona Chery on 09-27-2023 Erythrocyte distribution width (RBC) [Ratio] 18.5 % 11.6-14.6 [facility] Erythrocyte distribution wid th standard deviationOrdered By: Mona Chery on 09-27-2023 Erythrocyte distribution width (RBC) [Entitic vol] 51.8 fL 35.1-43.9 [facility] Erythrocyte sedimentation ra teOrdered By: Mona Chery on 09-27-2023 ESR (Bld) [Velocity] 34 mm[facility]h [facility] [facility] Hematocrit Auto (Bld) [Volum e fraction]Ordered By: Mona Chery on 09-27-2023 Hematocrit (Bld) [Volume fraction] 33.9 % 37-47 [facility] Immature granulocytes/100 WB C Auto (Bld)Ordered By: Mona Chery on 09-27-2023 Immature granulocytes/100 WBC (Bld) 0.400 % 0.0-0.9 [facility] Iron measurement (mass/mass) Ordered By: Mona Chery on 09-27-2023 Iron (Unsp spec) [Mass/Mass] 25 ug/dL 50-170 [facility] No Panel InformationOrdered By: Mona Chery on 09-27-2023 22.9 pg 27.0-32.0 [facility] 29.5 g/dL 32-36 [facility] 291 K/mm3 150-450 [facility] 9.0 fl 6.2-12.0 [facility] 0 % 0-5 [facility] 79 mL/min >60 [facility] 95 mL/min >60 [facility] 67.98 ml/min [facility] 17.2 RATIO 10-20 [facility] 3.8 g/dL 2.2-4.2 [facility] 0.7 RATIO 0.9-2.4 [facility] 67 U/L 45-117 [facility] 21 U/L 13-56 [facility] 2.2 mg/dL 1.6-2.6 [facility] 30.0 mmol/L 21.0-32.0 [facility] 38 mg/dL >40 [facility] 56 mg/dL 0-130 [facility] 22 mg/dL 5-40 [facility] 56.70 mg/L 0.0-3.0 [facility] 342 ug/dL 250-450 [facility] 68 ng/mL 8-252 [facility] RBC Auto (Bld) [#/Vol]Ordere d By: Mona Chery on 09-27-2023 RBC (Bld) [#/Vol] 4.36 10*6/uL 4.2-5.4 [facility] Serum or plasma calcium gustavo urement (mass/volume)Ordered By: Mona Chery on 09-27-2023 Calcium [Mass/Vol] 9.2 mg/dL 8.5-10.1 [facility] Serum or plasma creatinine m easurement (mass/volume)Ordered By: Mona Chery on 09-27-2023 Creatinine [Mass/Vol] 0.75 mg/dL 0.55-1.02 [facility] Serum or plasma iron saturat ion measurement (mass fraction)Ordered By: Mona Chery on 09-27-2023 Iron saturation [Mass fraction] 7.3 % 15.0-55.0 [facility] Serum or plasma thyroid stim ulating hormone (TSH) measurement (units/volume)Ordered By: Mona Chery on 09-27-2023 TSH Qn 4.16 uIU/mL 0.358-3.74 [facility] Serum or plasma urea nitroge n measurement (mass/volume)Ordered By: Mona Chery on 09-27-2023 Urea nitrogen [Mass/Vol] 13 mg/dL 7-18 [facility] Thin prep Papanicolaou smear with manual screeningOrdered By: Mona Chery on 09-27-2023 Thin prep Papanicolaou smear with manual screening 2.8 g/dL 3.2-5.0 [facility] Thin prep Papanicolaou smear with manual screening 20 U/L 15-37 [facility] Thin prep Papanicolaou smear with manual screening 3 5-15 [facility] Whole blood hemoglobin A1c/t otal hemoglobin ratio (mass fraction)Ordered By: Mona Chery on 09-27-2023 HbA1c (Bld) [Mass fraction] 6.0 % 3.8-5.6 [facility] Absolute lymphocyte countOrd ered By: Joshua Santiago on 09-26-2023 Lymphocytes Auto (Unsp spec) [#/Vol] 1.66 10*3/uL 0.83-4.51 [facility] Activated partial thrombopla stin time (aPTT) in platelet poor plasma by coagulation aOrdered By: Joshua Santiago on 09-26-2023 aPTT Coag (PPP) [Time] 35.8 s 24.1-36.2 [facility] Automated lymphocyte count a s percentage of total leukocytesOrdered By: Joshua Santiago on 09-26-2023 Lymphocytes/100 WBC Auto (Unsp spec) 12.2 % 19-41 [facility] Basophil percentageOrdered B y: Joshua Santiago on 09-26-2023 Basophil percentage 11.3 g/dL 12.0-15.0 [facility] Basophil percentage 111 mg/dL 74-106 [facility] Basophil percentage 137 mmol/L 136-145 [facility] Basophil percentage 3.1 mmol/L 3.5-5.1 [facility] Basophil percentage 101 mmol/L 98-107 [facility] Basophils (Bld) [#/Vol] 13.6 10*3/uL 4.4-11.0 [facility] Basophils (Bld) [#/Vol] 10.1 10*3/uL 2.0-7.7 [facility] Basophils/100 WBC (Bld) 74.3 % 47-[address] [facility] Basophils/100 WBC (Bld) 10.3 % 0-[address] [facility] Basophils/100 WBC (Bld) 2.1 % 0-[address] [facility] Basophils/100 WBC (Bld) 0.4 % 0-[address] [facility] Determination of erythrocyte mean corpuscular volume (MCV)Ordered By: Joshua Santiago on 09-26-2023 MCV (RBC) [Entitic vol] 77.9 fL 81-[address] [facility] Erythrocyte distribution wid th ratioOrdered By: Joshua Santiago on 09-26-2023 Erythrocyte distribution width (RBC) [Ratio] 18.6 % 11.6-14.6 [facility] Erythrocyte distribution wid th standard deviationOrdered By: Joshua Santiago on 09-26-2023 Erythrocyte distribution width (RBC) [Entitic vol] 51.7 fL 35.1-43.9 [facility] Hematocrit Auto (Bld) [Volum e fraction]Ordered By: Joshua Santiago on 09-26-2023 Hematocrit (Bld) [Volume fraction] 38.1 % 37-47 [facility] Immature granulocytes/100 WB C Auto (Bld)Ordered By: Joshua Santiago on 09-26-2023 Immature granulocytes/100 WBC (Bld) 0.700 % 0.0-0.9 [facility] No Panel InformationOrdered By: Joshua Santiago on 09-26-2023 23.1 pg 27.0-32.0 [facility] 29.7 g/dL 32-36 [facility] 333 K/mm3 150-450 [facility] 9.2 fl 6.2-12.0 [facility] 0 % 0-5 [facility] 14.8 SECONDS 11.7-14.9 [facility] 1.2 [facility] 66 mL/min >60 [facility] 80 mL/min >60 [facility] 61.25 ml/min [facility] 22.8 RATIO 10-20 [facility] 8 pg/mL 3.0-54.0 [facility] 31.0 mmol/L 21.0-32.0 [facility] RBC Auto (Bld) [#/Vol]Ordere d By: Joshua Santiago on 09-26-2023 RBC (Bld) [#/Vol] 4.89 10*6/uL 4.2-5.4 [facility] Serum or plasma calcium gustavo urement (mass/volume)Ordered By: Joshua Santiago on 09-26-2023 Calcium [Mass/Vol] 9.4 mg/dL 8.5-10.1 [facility] Serum or plasma creatinine m easurement (mass/volume)Ordered By: Joshua Santiago on 09-26-2023 Creatinine [Mass/Vol] 0.88 mg/dL 0.55-1.02 [facility] Serum or plasma urea nitroge n measurement (mass/volume)Ordered By: Joshuajennifer Santiago on 09-26-2023 Urea nitrogen [Mass/Vol] 20 mg/dL 7-18 [facility] Thin prep Papanicolaou smear with manual screeningOrdered By: Joshua Santiago on 09-26-2023 Thin prep Papanicolaou smear with manual screening 5 5-15 [facility] Absolute lymphocyte countOrd ered By: Dilia Best on 08-16-2023 Lymphocytes Auto (Unsp spec) [#/Vol] 1.78 10*3/uL 0.83-4.51 [facility] Automated lymphocyte count a s percentage of total leukocytesOrdered By: Dilia Best on 08-16-2023 Lymphocytes/100 WBC Auto (Unsp spec) 17.2 % 19-41 [facility] Basophil percentageOrdered B y: Dilia Best on 08-16-2023 Basophil percentage 10.2 g/dL 12.0-15.0 [facility] Basophil percentage 104 mg/dL 74-106 [facility] Basophil percentage 138 mmol/L 136-145 [facility] Basophil percentage 4.0 mmol/L 3.5-5.1 [facility] Basophil percentage 107 mmol/L 98-107 [facility] Basophils (Bld) [#/Vol] 10.3 10*3/uL 4.4-11.0 [facility] Basophils (Bld) [#/Vol] 7.1 10*3/uL 2.0-7.7 [facility] Basophils/100 WBC (Bld) 0.4 % 0-[address] [facility] Basophils/100 WBC (Bld) 68.3 % 47-[address] [facility] Basophils/100 WBC (Bld) 11.5 % 0-[address] [facility] Basophils/100 WBC (Bld) 1.9 % 0-[address] [facility] Chloride [Moles/Vol] 107 mmol/L 98-107 [facility] Eosinophils/100 WBC (Bld) 1.9 % 0-5 [facility] Glucose [Mass/Vol] 104 mg/dL 74-106 [facility] Comment on above: Fasting Glucose resu lt from 100 to 125 mg/dL suggests IMPAIRED HOMEOSTASIS per A.D.A. criteria. Hemoglobin (Bld) [Mass/Vol] 10.2 g/dL 12.0-15.0 [facility] Monocytes/100 WBC (Bld) 11.5 % 0-[address] [facility] Neutrophils (Bld) [#/Vol] 7.1 10*3/uL 2.0-7.7 [facility] Neutrophils/100 WBC (Bld) 68.3 % 47-70 [facility] Potassium [Moles/Vol] 4.0 mmol/L 3.5-5.1 [facility] Sodium [Moles/Vol] 138 mmol/L 136-145 [facility] WBC (Bld) [#/Vol] 10.3 10*3/uL 4.4-11.0 [facility] Determination of erythrocyte mean corpuscular volume (MCV)Ordered By: Dilia Best on 08-16-2023 MCV (RBC) [Entitic vol] 77.9 fL 81-[address] [facility] Erythrocyte distribution wid th ratioOrdered By: Dilia Best on 08-16-2023 Erythrocyte distribution width (RBC) [Ratio] 18.5 % 11.6-14.6 [facility] Erythrocyte distribution wid th standard deviationOrdered By: Dilia Best on 08-16-2023 Erythrocyte distribution width (RBC) [Entitic vol] 51.4 fL 35.1-43.9 [facility] Hematocrit Auto (Bld) [Volum e fraction]Ordered By: Dilia Best on 08-16-2023 Hematocrit (Bld) [Volume fraction] 34.8 % 37-47 [facility] Immature granulocytes/100 WB C Auto (Bld)Ordered By: Dilia Best on 08-16-2023 Immature granulocytes/100 WBC (Bld) 0.700 % 0.0-0.9 [facility] Comment on above: IG% - Immature Granu locytes (promyelocytes, myelocytes and metamyelocytes) > 1% indicates that a LEFT SHIFT is Present. Laboratory - Chemistry and C hemistry - challengeOrdered By: Dilia Best on 08-16-2023 CO2 [Moles/Vol] 28.0 mmol/L 21.0-32.0 [facility] Urea nitrogen/Creatinine [Mass ratio] 17.0 mg/mg - [facility] Laboratory - Hematology and Cell countsOrdered By: Dilia Best on 08-16-2023 MCH (RBC) [Entitic mass] 22.8 pg 27.0-32.0 [facility] MCHC (RBC) [Mass/Vol] 29.3 g/dL [facility] Nucleated RBC/100 WBC (Bld) [Ratio] 0 % 0-5 [facility] Platelets (Bld) [#/Vol] 313 10*3/uL 150-450 [facility] No Panel InformationOrdered By: Dilia Best on 08-16-2023 Estimated Creatinine Clearance Calc 48.50 ml/min [facility] Estimated GFR (MDRD) Amer 69 mL/min >60 [facility] Comment on above: GFR Calc Estimated GFR (MDRD) Non-Af Amer 57 mL/min >60 [facility] Comment on above: Non- GFR Calc 22.8 pg 27.0-32.0 [facility] 29.3 g/dL [facility] 313 K/mm3 150-450 [facility] 0 % 0-5 [facility] 57 mL/min >60 [facility] 69 mL/min >60 [facility] 48.50 ml/min [facility] 17.0 RATIO 05-13 [facility] 28.0 mmol/L 21.0-32.0 [facility] Platelet mean volume Ariel-Ec ker (Bld) [Entitic vol]Ordered By: Dilia Best on 08-16-2023 Platelet mean volume (Bld) [Entitic vol] 9.1 fL 6.2-12.0 [facility] RBC Auto (Bld) [#/Vol]Ordere d By: Dilia Best on 08-16-2023 RBC (Bld) [#/Vol] 4.47 10*6/uL 4.2-5.4 [facility] Serum or plasma calcium gustavo urement (mass/volume)Ordered By: Dilia Best on 08-16-2023 Calcium [Mass/Vol] 9.4 mg/dL 8.5-10.1 [facility] Serum or plasma creatinine m easurement (mass/volume)Ordered By: Dilia Best on 08-16-2023 Creatinine [Mass/Vol] 1.00 mg/dL 0.55-1.02 [facility] Comment on above: The validity of the calculated GFR & GFRAA in patients over 70 years has not been determined. Clinical correlation is essential. Serum or plasma urea nitroge n measurement (mass/volume)Ordered By: Dilia Best on 08-16-2023 Urea nitrogen [Mass/Vol] 17 mg/dL 7-18 [facility] Thin prep Papanicolaou smear with manual screeningOrdered By: Dilia Best on 08-16-2023 Thin prep Papanicolaou smear with manual screening 3 5-15 [facility] Serum or plasma trough vanco mycin levelOrdered By: Felipe Cordoba on 08-15-2023 Vancomycin trough [Mass/Vol] 19.4 ug/mL 5.0-15.0 [facility] Comment on above: VANCOMYCIN STANDARED DRUG THERAPY TROUGH LEVEL: 5.0 - 15.0 mg/L VANCOMYCIN HIGH INTENSITY THERAPY TROUGH LEVEL: 15.0 - 20.0 mg/L High Intensity therapy recommended for serious lifethreatening infections include:- [id number]-[id number]-Riylonpas (Ventilator/Healt[employer] Associated)-Sepsis PLEASE CONTACT PHARMACY SERVICES (#2360) FOR INTERPRETATIONOF RESULTS. Basophil percentageOrdered B y: Felipe Cordoba on 08-14-2023 Basophil percentage 3.2 mg/dL 2.5-4.9 [facility] Basophil percentage 6.6 g/dL 6.4-8.2 [facility] Basophil percentage 0.80 mg/dL 0.20-1.00 [facility] Bilirubin [Mass/Vol] 0.80 mg/dL 0.20-1.00 [facility] Comment on above: For patients on eltr ombopag therapy, use of Dimension [place] TBIL is not recommended. Protein [Mass/Vol] 6.6 g/dL 6.4-8.2 [facility] Blood manual differential co mment interpretation (narrative result)Ordered By: Felipe Cordoba on 08-14-2023 Manual differential comment Ray (Bld) [Interp] SCANNED [facility] Laboratory - Chemistry and C hemistry - challengeOrdered By: Felipe Crodoba on 08-14-2023 Albumin/Globulin [Mass ratio] 0.7 {ratio} 0.9-2.4 [facility] ALP [Catalytic activity/Vol] 60 U/L 45-117 [facility] ALT [Catalytic activity/Vol] 15 U/L 13-56 [facility] Globulin (S) [Mass/Vol] 3.8 g/dL 2.2-4.2 [facility] Magnesium [Mass/Vol] 2.2 mg/dL 1.6-2.6 [facility] No Panel InformationOrdered By: Felipe Cordoba on 08-14-2023 3.8 g/dL 2.2-4.2 [facility] 0.7 RATIO 0.9-2.4 [facility] 60 U/L 45-117 [facility] 15 U/L - [facility] 2.2 mg/dL 1.6-2.6 [facility] Review by pathologistOrdered By: Felipe Cordoba on 08-14-2023 Pathologist review Ray (Unsp spec) [Interp] Reviewed [facility] Comment on above: Previous reported re sult: Aubree lion Edited by: [email or web address] on 08/15/23:1427Leukocytosis.Microcytic anemia.Clinical correlation necessary.Aaron Sloan M.D. 08/15/23 AMENDED REPORT 08/15/23 1427 PATH REV previously reported as: Aubree lion Serum or plasma thyroid stim ulating hormone (TSH) measurement (units/volume)Ordered By: Felipe Cordoba on 08-14-2023 TSH Qn 3.30 uIU/mL 0.358-3.74 [facility] Thin prep Papanicolaou smear with manual screeningOrdered By: Felipe Cordoba on 08-14-2023 Thin prep Papanicolaou smear with manual screening 2.8 g/dL 3.2-5.0 [facility] Thin prep Papanicolaou smear with manual screening 14 U/L 15-37 [facility] Absolute lymphocyte countOrd ered By: Kelle Foster on 08-13-2023 Lymphocytes Auto (Unsp spec) [#/Vol] 1.50 10*3/uL 0.83-4.51 [facility] Automated lymphocyte count a s percentage of total leukocytesOrdered By: Kelle Foster on 08-13-2023 Lymphocytes/100 WBC Auto (Unsp spec) 9.8 % 19-41 [facility] Bacteria identified Cx Nom ( U)Ordered By: Kelle Foster on 08-13-2023 Culture, urine Lactobacillus gasseri [facility] Culture, urine Lactobacillus gasseri [facility] Basophil percentageOrdered B y: Kelle Foster on 08-13-2023 Basophil percentage 5-10 SEEN /hpf 0-[address] [facility] Basophils/100 WBC (Bld) 0.3 % 0-1 [facility] Chloride [Moles/Vol] 100 mmol/L 98-107 [facility] Eosinophils/100 WBC (Bld) 0.4 % 0-5 [facility] Glucose [Mass/Vol] 127 mg/dL 74-106 [facility] Comment on above: Fasting Glucose resu lt greater than or equal to 126 mg/dL suggests DIABETES MELLITUS per A.D.A. criteria. Hemoglobin (Bld) [Mass/Vol] 11.2 g/dL 12.0-15.0 [facility] Monocytes/100 WBC (Bld) 11.6 % 0-[address] [facility] Neutrophils (Bld) [#/Vol] 11.8 10*3/uL 2.0-7.7 [facility] Neutrophils/100 WBC (Bld) 77.3 % 47-70 [facility] Potassium [Moles/Vol] 3.0 mmol/L 3.5-5.1 [facility] Sodium [Moles/Vol] 135 mmol/L 136-145 [facility] WBC (Bld) [#/Vol] 15.2 10*3/uL 4.4-11.0 [facility] Bilirubin Test strip Ql (U)O rdered By: Kelle Foster on 08-13-2023 Bilirubin Ql (U) 3 mg/dL Negative [facility] Comment on above: COLOR OF URINE MAY A FFECT DIPSTICK RESULTS. Blood manual differential co mment interpretation (narrative result)Ordered By: Kelle Foster on 08-13-2023 Manual differential comment Ray (Bld) [Interp] SCANNED [facility] Comment on above: MONOCYTOSIS NOTED Culture, urineOrdered By: John Foster on 08-13-2023 Bacteria identified Cx Nom (U) Lactobacillus gasseri [facility] Determination of erythrocyte mean corpuscular volume (MCV)Ordered By: Kelle Foster on 08-13-2023 MCV (RBC) [Entitic vol] 78.6 fL 81-[address] [facility] Erythrocyte distribution wid th ratioOrdered By: Kelle Foster on 08-13-2023 Erythrocyte distribution width (RBC) [Ratio] 18.5 % 11.6-14.6 [facility] Erythrocyte distribution wid th standard deviationOrdered By: Kelle Foster on 08-13-2023 Erythrocyte distribution width (RBC) [Entitic vol] 52.9 fL 35.1-43.9 [facility] Hematocrit Auto (Bld) [Volum e fraction]Ordered By: Kelle Foster on 08-13-2023 Hematocrit (Bld) [Volume fraction] 38.6 % 37-47 [facility] Immature granulocytes/100 WB C Auto (Bld)Ordered By: Kelle Foster on 08-13-2023 Immature granulocytes/100 WBC (Bld) 0.600 % 0.0-0.9 [facility] Comment on above: IG% - Immature Granu locytes (promyelocytes, myelocytes and metamyelocytes) > 1% indicates that a LEFT SHIFT is Present. Ketones Test strip Ql (U)Ord ered By: Kelle Foster on 08-13-2023 Ketones Ql (U) 5 mg/dl Negative [facility] Laboratory - Chemistry and C hemistry - challengeOrdered By: Kelle Foster on 08-13-2023 CO2 [Moles/Vol] 28.0 mmol/L 21.0-32.0 [facility] Natriuretic peptide B (Bld) [Mass/Vol] 90.4 pg/mL 0-100 [facility] Urea nitrogen/Creatinine [Mass ratio] 13.1 mg/mg 10-20 [facility] Laboratory - Hematology and Cell countsOrdered By: Kelle Foster on 08-13-2023 MCH (RBC) [Entitic mass] 22.8 pg 27.0-32.0 [facility] MCHC (RBC) [Mass/Vol] 29.0 g/dL 32-36 [facility] Nucleated RBC/100 WBC (Bld) [Ratio] 0 % 0-5 [facility] Platelets (Bld) [#/Vol] 335 10*3/uL 150-450 [facility] Mucus LM Ql (Urine sed)Order ed By: Kelle Foster on 08-13-2023 Mucus Ql (Urine sed) 1+ /hpf [facility] Nitrite Test strip Ql (U)Ord ered By: Kelle Foster on 08-13-2023 Nitrite Ql (U) Negative Negative [facility] No Panel InformationOrdered By: Kelle Foster on 08-13-2023 D-Dimer Quantitative (PE/DVT) 1.47 FEU/ug/m 0.27-0.49 [facility] Comment on above: D-Dimer ELEVATED (>0 .49): Additional studies and clinicalassessments are indicated to conclude diagnosis of:Deep Vein Thrombosis (DVT) or Pulmonary Embolism (PE)CRITICAL VALUE VERIFIED. CALLED TO [facility]SC[facility]28/20/24 0487 Gwendolyn Braga.RESULTS READ BACK BY SAME . 1.47 FEU/ug/m 0.27-0.49 [facility] Urine RBC 0-5 SEEN /hpf 0-5 [facility] 0-5 SEEN /hpf 0-5 [facility] Estimated Creatinine Clearance Calc 55.85 ml/min [facility] Estimated GFR (MDRD) Amer 70 mL/min >60 [facility] Comment on above: GFR Calc Estimated GFR (MDRD) Non-Af Amer 58 mL/min >60 [facility] Comment on above: Non- GFR Calc 90.4 pg/mL 0-100 [facility] Platelet mean volume Ariel-Ec ker (Bld) [Entitic vol]Ordered By: Kelel Foster on 08-13-2023 Platelet mean volume (Bld) [Entitic vol] 8.7 fL 6.2-12.0 [facility] Protein Test strip Ql (U)Ord ered By: Kelle Foster on 08-13-2023 Protein Ql (U) 30 mg/dl Negative [facility] RBC Auto (Bld) [#/Vol]Ordere d By: Kelle Foster on 08-13-2023 RBC (Bld) [#/Vol] 4.91 10*6/uL 4.2-5.4 [facility] Review by pathologistOrdered By: Kelle Foster on 08-13-2023 Pathologist review Ray (Unsp spec) [Interp] May foll [facility] Serum or plasma calcium gustavo urement (mass/volume)Ordered By: Kelle Foster on 08-13-2023 Calcium [Mass/Vol] 9.7 mg/dL 8.5-10.1 [facility] Serum or plasma creatinine m easurement (mass/volume)Ordered By: Kelle Foster on 08-13-2023 Creatinine [Mass/Vol] 0.99 mg/dL 0.55-1.02 [facility] Comment on above: The validity of the calculated GFR & GFRAA in patients over 70 years has not been determined. Clinical correlation is essential. Serum or plasma urea nitroge n measurement (mass/volume)Ordered By: Kelle Foster on 08-13-2023 Urea nitrogen [Mass/Vol] 13 mg/dL 7-18 [facility] Serum or plasma uric acid me asurement (mass/volume)Ordered By: Kelle Foster on 08-13-2023 Urate [Mass/Vol] 5.8 mg/dL 2.6-6.0 [facility] Comment on above: The drugs N-Acetylcy steine and Metamizole may falsely depress this assay. Squamous epithelial cells de tection in urine sediment by light microscopyOrdered By: Kelle Foster on 08-13-2023 Epithelial cells.squamous LM Ql (Urine sed) 0-5 SEEN /hpf 5-10 [facility] Thin prep Papanicolaou smear with manual screeningOrdered By: Kelle Foster on 08-13-2023 Thin prep Papanicolaou smear with manual screening 7 5-15 [facility] Urine blood detectionOrdered By: Kelle Foster on 08-13-2023 RBC Ql (U) 50 /ul Negative [facility] Urine clarityOrdered By: Lizett Foster on 08-13-2023 Clarity (U) Sl. Cloudy Clear [facility] Urine color determinationOrd ered By: Kelle Foster on 08-13-2023 Color (U) Tram Yellow [facility] Urine glucose detectionOrder ed By: Kelle Foster on 08-13-2023 Glucose Ql (U) Normal mg/dl Normal [facility] Urine leukocyte esterase det ection by dipstickOrdered By: Kelle Foster on 08-13-2023 Leukocyte esterase Test strip Ql (U) 100 /ul Negative [facility] Urine pHOrdered By: Kelle Foster on 08-13-2023 pH (U) 5.0 [pH] 5.0 - 8.0 [facility] Urine sediment bacteria coun t by microscopy (number/high power field)Ordered By: Kelle Foster on 08-13-2023 Bacteria LM.HPF (Urine sed) [#/Area] RARE /hpf None Seen [facility] Urine specific gravity measu rementOrdered By: Kelle Foster on 08-13-2023 Specific gravity (U) [Rel density] 1.020 1.002-1.030 [facility] Urine urobilinogen measureme ntOrdered By: Kelle Foster on 08-13-2023 Urobilinogen Ql (U) 1 mg/dl Normal [facility] Absolute lymphocyte countOrd ered By: Moon Rayo on 08-01-2023 Lymphocytes Auto (Unsp spec) [#/Vol] 1.72 10*3/uL 0.83-4.51 [facility] Basophil percentageOrdered B y: Moon Rayo on 08-01-2023 Basophil percentage 106 mg/dL 74-106 [facility] Basophil percentage 7.5 g/dL 6.4-8.2 [facility] Basophil percentage 0.70 mg/dL 0.20-1.00 [facility] Basophil percentage 141 mg/dL <200 [facility] Basophil percentage 117 mg/dL <199 [facility] Basophil percentage 141 mmol/L 136-145 [facility] Basophil percentage 3.6 mmol/L 3.5-5.1 [facility] Basophil percentage 105 mmol/L 98-107 [facility] Basophils (Bld) [#/Vol] 10.0 10*3/uL 4.4-11.0 [facility] Basophils (Bld) [#/Vol] 7.1 10*3/uL 2.0-7.7 [facility] Basophils/100 WBC (Bld) 0.6 % 0-[address] [facility] Basophils/100 WBC (Bld) 70.9 % 47-[address] [facility] Basophils/100 WBC (Bld) 2.5 % 0-[address] [facility] Bilirubin [Mass/Vol] 0.70 mg/dL 0.20-1.00 [facility] Comment on above: For patients on eltr ombopag therapy, use of Dimension Bumpass TBIL is not recommended. Chloride [Moles/Vol] 105 mmol/L 98-107 [facility] Cholesterol [Mass/Vol] 141 mg/dL <200 [facility] Comment on above: <200 mg/dL Desirable 200-240 mg/dL Borderline >240 mg/dL High Risk Eosinophils/100 WBC (Bld) 2.5 % 0-5 [facility] Glucose [Mass/Vol] 106 mg/dL 74-106 [facility] Comment on above: Fasting Glucose resu lt from 100 to 125 mg/dL suggests IMPAIRED HOMEOSTASIS per A.D.A. criteria. Neutrophils (Bld) [#/Vol] 7.1 10*3/uL 2.0-7.7 [facility] Neutrophils/100 WBC (Bld) 70.9 % 47-70 [facility] Potassium [Moles/Vol] 3.6 mmol/L 3.5-5.1 [facility] Protein [Mass/Vol] 7.5 g/dL 6.4-8.2 [facility] Sodium [Moles/Vol] 141 mmol/L 136-145 [facility] Triglyceride [Mass/Vol] 117 mg/dL <199 [facility] Comment on above: The drugs N-Acetylcy steine and Metamizole may falsely depress this assay.Serum Triglycerides Reference Interval Normal <150 mg/dL Borderline high 150 - 199 mg/dL High 200 - 499 mg/dL Very High > or = 500 mg/dL WBC (Bld) [#/Vol] 10.0 10*3/uL 4.4-11.0 [facility] Blood erythrocytes count (nu mber/volume)Ordered By: Moon Rayo on 08-01-2023 RBC (Bld) [#/Vol] 5.11 10*6/uL 4.2-5.4 [facility] Blood hemoglobin measurement (mass/volume)Ordered By: Moon Rayo on 08-01-2023 Hemoglobin (Bld) [Mass/Vol] 11.7 g/dL 12.0-15.0 [facility] Blood lymphocytes/100 leukoc ytesOrdered By: Moon Rayo on 08-01-2023 Lymphocytes/100 WBC (Bld) 17.1 % 19-41 [facility] Blood monocytes/100 leukocyt esOrdered By: Moon Rayo on 08-01-2023 Monocytes/100 WBC (Bld) 8.2 % 0-[address] [facility] Blood platelet mean volumeOr dered By: Moon Rayo on 08-01-2023 Platelet mean volume (Bld) [Entitic vol] 9.2 fL 6.2-12.0 [facility] Determination of erythrocyte mean corpuscular volume (MCV)Ordered By: Moon Rayo on 08-01-2023 MCV (RBC) [Entitic vol] 80.4 fL 81-[address] [facility] Erythrocyte sedimentation ra teOrdered By: Moon Rayo on 08-01-2023 ESR (Bld) [Velocity] 28 mm/h 0-30 [facility] Hematocrit Auto (Bld) [Volum e fraction]Ordered By: Moon Rayo on 08-01-2023 Hematocrit (Bld) [Volume fraction] 41.1 % 37-47 [facility] Iron measurement (mass/mass) Ordered By: Moon Rayo on 08-01-2023 Iron (Unsp spec) [Mass/Mass] 32 ug/dL 50-170 [facility] Laboratory - Chemistry and C hemistry - challengeOrdered By: Moon Rayo on 08-01-2023 ALP [Catalytic activity/Vol] 80 U/L 45-117 [facility] ALT [Catalytic activity/Vol] 36 U/L 13-56 [facility] CO2 [Moles/Vol] 30.0 mmol/L 21.0-32.0 [facility] Globulin (S) [Mass/Vol] 4.1 g/dL 2.2-4.[address] [facility] Magnesium [Mass/Vol] 2.4 mg/dL 1.6-2.6 [facility] Urea nitrogen/Creatinine [Mass ratio] 23.8 mg/mg 10-20 [facility] Laboratory - Hematology and Cell countsOrdered By: Moon Rayo on 08-01-2023 Erythrocyte distribution width (RBC) [Entitic vol] 54.5 fL 35.1-43.9 [facility] Erythrocyte distribution width (RBC) [Ratio] 18.9 % 11.6-14.6 [facility] Immature granulocytes/100 WBC (Bld) 0.700 % 0.0-0.9 [facility] Comment on above: IG% - Immature Granu locytes (promyelocytes, myelocytes and metamyelocytes) > 1% indicates that a LEFT SHIFT is Present. MCH (RBC) [Entitic mass] 22.9 pg 27.0-32.0 [facility] Nucleated RBC/100 WBC (Bld) [Ratio] 0 % 0-5 [facility] MCHC Auto (RBC) [Mass/Vol]Or dered By: Moon Rayo on 08-01-2023 MCHC (RBC) [Mass/Vol] 28.5 g/dL 32-36 [facility] No Panel InformationOrdered By: Moon Rayo on 08-01-2023 Estimated GFR (MDRD) Amer 89 mL/min >60 [facility] Comment on above: GFR Calc Estimated GFR (MDRD) Non-Af Amer 74 mL/min >60 [facility] Comment on above: Non- GFR Calc Thyroid Stimulating Hormone (TSH) 2.10 uIU/mL 0.358-3.74 [facility] Total Iron Binding Capacity 413 ug/dL 250-450 [facility] Vitamin D 25-Hydroxy 29.1 ng/mL [facility] Comment on above: Vitamin D 25(OH) Sta tus Range Deficiency <20 ng/mL (50nmol/L) Insufficiency 20 - 30 ng/mL (50 - 75 nmol/L) Sufficiency 30 - 100 ng/mL (75 - 250 nmol/L) Toxicity >100 ng/mL (>250 nmol/L) 22.9 pg 27.0-32.0 [facility] 18.9 % 11.6-14.6 [facility] 54.5 fl 35.1-43.9 [facility] 0.700 % 0.0-0.9 [facility] 0 % 0-5 [facility] 74 mL/min >60 [facility] 89 mL/min >60 [facility] 23.8 RATIO 10-20 [facility] 4.1 g/dL 2.2-4.2 [facility] 80 U/L 45-117 [facility] 36 U/L 13-56 [facility] 2.4 mg/dL 1.6-2.6 [facility] 30.0 mmol/L 21.0-32.0 [facility] 2.10 uIU/mL 0.358-3.74 [facility] 413 ug/dL 250-450 [facility] 29.1 ng/mL [facility] Platelets bldOrdered By: Carol Rayo on 08-01-2023 Platelets (Bld) [#/Vol] 418 10*3/uL 150-450 [facility] Serum or plasma albumin gustavo urement (mass/volume)Ordered By: Moon Rayo on 08-01-2023 Albumin [Mass/Vol] 3.4 g/dL 3.2-5.0 [facility] Serum or plasma albumin/glob ulin mass ratioOrdered By: Moon Rayo on 08-01-2023 Albumin/Globulin [Mass ratio] 0.8 {ratio} 0.9-2.4 [facility] Serum or plasma calcium gustavo urement (mass/volume)Ordered By: Moon Rayo on 08-01-2023 Calcium [Mass/Vol] 9.5 mg/dL 8.5-10.1 [facility] Serum or plasma cholesterol in HDL measurement (mass/volume)Ordered By: Moon Rayo on 08-01-2023 Cholesterol in HDL [Mass/Vol] 45 mg/dL >40 [facility] Comment on above: The drugs N-Acetylcy steine and Metamizole may falsely depress this assay. Reference Range HDL <40 mg/dL Low HDL Cholesterol HDL >or= 60 mg/dL High HDL Cholesterol Serum or plasma cholesterol in VLDL measurement (mass/volume)Ordered By: Moon Rayo on 08-01-2023 Cholesterol in VLDL [Mass/Vol] 23 mg/dL 5-40 [facility] Serum or plasma creatinine m easurement (mass/volume)Ordered By: Moon Rayo on 08-01-2023 Creatinine [Mass/Vol] 0.80 mg/dL 0.55-1.02 [facility] Comment on above: The validity of the calculated GFR & GFRAA in patients over 70 years has not been determined. Clinical correlation is essential. Serum or plasma iron saturat ion measurement (mass fraction)Ordered By: Moon Rayo on 08-01-2023 Iron saturation [Mass fraction] 7.7 % 15.0-55.0 [facility] Serum or plasma low density lipoprotein (LDL) cholesterol measurement (mass/volume)Ordered By: Moon Rayo on 08-01-2023 Cholesterol in LDL [Mass/Vol] 73 mg/dL 0-130 [facility] Serum or plasma urea nitroge n measurement (mass/volume)Ordered By: Moon Rayo on 08-01-2023 Urea nitrogen [Mass/Vol] 19 mg/dL 7-18 [facility] Serum or plasma uric acid me asurement (mass/volume)Ordered By: Moon Rayo on 08-01-2023 Urate [Mass/Vol] 5.7 mg/dL 2.6-6.0 [facility] Comment on above: The drugs N-Acetylcy steine and Metamizole may falsely depress this assay. Thin prep Papanicolaou smear with manual screeningOrdered By: Moon Rayo on 08-01-2023 Thin prep Papanicolaou smear with manual screening 41 U/L 15-37 [facility] Thin prep Papanicolaou smear with manual screening 6 5-15 [facility] Absolute lymphocyte counton 07-15-2022 Lymphocytes Auto (Unsp spec) [#/Vol] 2.12 10*3/uL 0.83-4.51 [facility] Work Phone: Basophil percentageon 2021 Basophils/100 WBC (Bld) 0.3 % 0-[address] [facility] Work Phone: Bilirubin [Mass/Vol] 0.40 mg/dL 0.20-1.00 [facility] Work Phone: Comment on above: For patients on eltr ombopag therapy, use of Dimension [place]ump[place] TBIL is not recommended. Chloride [Moles/Vol] 102 mmol/L 98-107 [facility] Work Phone: Eosinophils/100 WBC (Bld) 1.6 % 0-5 [facility] Work Phone: [phone] Glucose [Mass/Vol] 83 mg/dL 74-106 [facility] Work Phone: Neutrophils (Bld) [#/Vol] 9.2 10*3/uL 2.0-7.7 [facility] Work Phone: Neutrophils/100 WBC (Bld) 72.2 % 47-70 [facility] Work Phone: Potassium [Moles/Vol] 3.8 mmol/L 3.5-5.1 [facility] Work Phone: [phone] Protein [Mass/Vol] 7.6 g/dL 6.4-8.2 [facility] Work Phone: Sodium [Moles/Vol] 137 mmol/L 136-145 [facility] Work Phone: WBC (Bld) [#/Vol] 12.7 10*3/uL 4.4-11.0 [facility] Work Phone: Blood erythrocytes count (nu mber/volume)on 07-15-2022 RBC (Bld) [#/Vol] 4.89 10*6/uL 4.2-5.4 [facility] Work Phone: Blood hemoglobin measurement (mass/volume)on 07-15-2022 Hemoglobin (Bld) [Mass/Vol] 12.0 g/dL 12.0-15.0 [facility] Work Phone: Blood lymphocytes/100 leukoc yteson 07-15-2022 Lymphocytes/100 WBC (Bld) 16.7 % 19-41 [facility] Work Phone: Blood monocytes/100 leukocyt eson 07-15-2022 Monocytes/100 WBC (Bld) 8.3 % 0-[address] [facility] Work Phone: Blood platelet mean volumeon 07-15-2022 Platelet mean volume (Bld) [Entitic vol] 9.7 fL 6.2-12.0 [facility] Work Phone: Determination of erythrocyte mean corpuscular volume (MCV)on 07-15-2022 MCV (RBC) [Entitic vol] 83.4 fL 81-[address] [facility] Work Phone: Hematocrit Auto (Bld) [Volum e fraction]on 07-15-2022 Hematocrit (Bld) [Volume fraction] 40.8 % 37-47 [facility] Work Phone: Laboratory - Chemistry and C hemistry - challengeon 07-15-2022 ALP [Catalytic activity/Vol] 73 U/L 45-117 [facility] Work Phone: ALT [Catalytic activity/Vol] 56 U/L 13-56 [facility] Work Phone: CO2 [Moles/Vol] 31.0 mmol/L 21.0-32.0 [facility] Work Phone: Globulin (S) [Mass/Vol] 3.9 g/dL 2.2-4.[address] [facility] Work Phone: Magnesium [Mass/Vol] 2.3 mg/dL 1.6-2.[address] [facility] Work Phone: Urea nitrogen/Creatinine [Mass ratio] 25.8 mg/mg 10-20 [facility] Work Phone: Laboratory - Hematology and Cell countson 07-15-2022 Erythrocyte distribution width (RBC) [Entitic vol] 51.7 fL 35.1-43.9 [facility] Work Phone: Erythrocyte distribution width (RBC) [Ratio] 17.1 % 11.6-14.6 [facility] Work Phone: Immature granulocytes/100 WBC (Bld) 0.900 % 0.0-0.9 [facility] Work Phone: Comment on above: IG% - Immature Granu locytes (promyelocytes, myelocytes and metamyelocytes) > 1% indicates that a LEFT SHIFT is Present. MCH (RBC) [Entitic mass] 24.5 pg 27.0-32.0 [facility] Work Phone: Nucleated RBC/100 WBC (Bld) [Ratio] 0 % 0-5 [facility] Work Phone: MCHC Auto (RBC) [Mass/Vol]on 07-15-2022 MCHC (RBC) [Mass/Vol] 29.4 g/dL 32-36 [facility] Work Phone: No Panel Informationon 07-15 Estimated GFR (MDRD) Amer 98 mL/min >60 [facility] Work Phone: Comment on above: GFR Calc Estimated GFR (MDRD) Non-Af Amer 81 mL/min >60 [facility] Work Phone: Comment on above: Non- GFR Calc Thyroid Stimulating Hormone (TSH) 3.39 uIU/mL 0.358-3.74 [facility] Work Phone: Vitamin D 25-Hydroxy 20.0 ng/mL [facility] Work Phone: Comment on above: Vitamin D 25(OH) Sta tus Range Deficiency <20 ng/mL (50nmol/L) Insufficiency 20 - 30 ng/mL (50 - 75 nmol/L) Sufficiency 30 - 100 ng/mL (75 - 250 nmol/L) Toxicity >100 ng/mL (>250 nmol/L) Platelets bldon 07-15-2022 Platelets (Bld) [#/Vol] 325 10*3/uL 150-450 [facility] Work Phone: Serum or plasma albumin gustavo urement (mass/volume)on 07-15-2022 Albumin [Mass/Vol] 3.7 g/dL 3.2-5.0 [facility] Work Phone: Serum or plasma albumin/glob ulin mass ratioon 07-15-2022 Albumin/Globulin [Mass ratio] 0.9 {ratio} 0.9-2.4 [facility] Work Phone: Serum or plasma calcium gustavo urement (mass/volume)on 07-15-2022 Calcium [Mass/Vol] 9.4 mg/dL 8.5-10.1 [facility] Work Phone: Serum or plasma creatinine m easurement (mass/volume)on 07-15-2022 Creatinine [Mass/Vol] 0.74 mg/dL 0.55-1.02 [facility] Work Phone: Comment on above: The validity of the calculated GFR & GFRAA in patients over 70 years has not been determined. Clinical correlation is essential. Serum or plasma urea nitroge n measurement (mass/volume)on 07-15-2022 Urea nitrogen [Mass/Vol] 19 mg/dL 7-18 [facility] Work Phone: Thin prep Papanicolaou smear with manual screeningon 07-15-2022 Thin prep Papanicolaou smear with manual screening 46 U/L 15-37 [facility] Work Phone: Thin prep Papanicolaou smear with manual screening 4 5-15 [facility] Work Phone: Absolute lymphocyte counton 12-14-2021 Lymphocytes Auto (Unsp spec) [#/Vol] 0.91 10*3/uL 0.83-4.51 [facility] Work Phone: Basophil percentageon 2021 Basophil percentage 5-10 SEEN /hpf [facility] Work Phone: Basophils/100 WBC (Bld) 0.4 % 0-[address] [facility] Work Phone: Bilirubin [Mass/Vol] 0.20 mg/dL 0.20-1.00 [facility] Work Phone: Comment on above: For patients on eltr ombopag therapy, use of Dimension Bumpass TBIL is not recommended. Chloride [Moles/Vol] 110 mmol/L 98-107 [facility] Work Phone: Eosinophils/100 WBC (Bld) 1.3 % 0-5 [facility] Work Phone: Glucose [Mass/Vol] 125 mg/dL 74-106 [facility] Work Phone: Comment on above: Fasting Glucose resu lt from 100 to 125 mg/dL suggests IMPAIRED HOMEOSTASIS per A.D.A. criteria. Neutrophils (Bld) [#/Vol] 5.0 10*3/uL 2.0-7.7 [facility] Work Phone: Neutrophils/100 WBC (Bld) 70.1 % 47-70 [facility] Work Phone: Potassium [Moles/Vol] 2.5 mmol/L 3.5-5.1 [facility] Work Phone: Comment on above: Slight Hemolysis, Re sult may be falsely increased. Critical Result(s) Called at: 15:44:42 12/14/2021 by: Jackson Núñez RN (ER). Results read back by same. Protein [Mass/Vol] 6.9 g/dL 6.4-8.2 [facility] Work Phone: Sodium [Moles/Vol] 139 mmol/L 136-145 [facility] Work Phone: WBC (Bld) [#/Vol] 7.1 10*3/uL 4.4-11.0 [facility] Work Phone: Bilirubin Test strip Ql (U)o n 12-14-2021 Bilirubin Ql (U) Negative Negative [facility] Work Phone: Blood erythrocytes count (nu mber/volume)on 12-14-2021 RBC (Bld) [#/Vol] 5.48 10*6/uL 4.2-5.4 [facility]: Blood hemoglobin measurement (mass/volume)on 12-14-2021 Hemoglobin (Bld) [Mass/Vol] 14.4 g/dL 12.0-15.0 [facility] Work Phone: Blood lymphocytes/100 leukoc yteson 12-14-2021 Lymphocytes/100 WBC (Bld) 12.8 % 19-41 [facility] Work Phone: Blood monocytes/100 leukocyt eson 12-14-2021 Monocytes/100 WBC (Bld) 14.7 % 0-[address] [facility] Work Phone: Blood platelet mean volumeon 12-14-2021 Platelet mean volume (Bld) [Entitic vol] 9.7 fL 6.2-12.0 [facility] Work Phone: Determination of erythrocyte mean corpuscular volume (MCV)on 12-14-2021 MCV (RBC) [Entitic vol] 84.3 fL 81-[address] [facility] Work Phone: Hematocrit Auto (Bld) [Volum e fraction]on 12-14-2021 Hematocrit (Bld) [Volume fraction] 46.2 % 37-47 [facility] Work Phone: Ketones Test strip Ql (U)on 12-14-2021 Ketones Ql (U) Negative Negative [facility] Work Phone: Laboratory - Chemistry and C hemistry - challengeon 12-14-2021 ALP [Catalytic activity/Vol] 68 U/L 45-117 [facility] Work Phone: ALT [Catalytic activity/Vol] 185 U/L 13-56 [facility] Work Phone: CO2 [Moles/Vol] 18.0 mmol/L 21.0-32.0 [facility] Work Phone: [phone] Globulin (S) [Mass/Vol] 3.6 g/dL 2.2-4.[address] [facility] Work Phone: [phone] Lipase [Catalytic activity/Vol] 85 U/L 73-393 [facility] Work Phone: [phone] Urea nitrogen/Creatinine [Mass ratio] 26.7 mg/mg 10-20 [facility] Work Phone: Laboratory - Hematology and Cell countson 12-14-2021 Erythrocyte distribution width (RBC) [Entitic vol] 50.9 fL 35.1-43.9 [facility] Work Phone: Erythrocyte distribution width (RBC) [Ratio] 16.5 % 11.6-14.6 [facility] Work Phone: Immature granulocytes/100 WBC (Bld) 0.700 % 0.0-0.9 [facility] Work Phone: Comment on above: IG% - Immature Granu locytes (promyelocytes, myelocytes and metamyelocytes) > 1% indicates that a LEFT SHIFT is Present. MCH (RBC) [Entitic mass] 26.3 pg 27.0-32.0 [facility] Work Phone: Nucleated RBC/100 WBC (Bld) [Ratio] 0 % 0-5 [facility] Work Phone: MCHC Auto (RBC) [Mass/Vol]on 12-14-2021 MCHC (RBC) [Mass/Vol] 31.2 g/dL 32-36 [facility] Work Phone: Mucus LM Ql (Urine sed)on Mucus Ql (Urine sed) 0 SEEN /hpf [facility] Work Phone: Nitrite Test strip Ql (U)on 12-14-2021 Nitrite Ql (U) Negative Negative [facility] Work Phone: No Panel Informationon 12-14 Estimated Creatinine Clearance Calc 34.44 ml/min [facility] Work Phone: Estimated GFR (MDRD) Amer 56 mL/min >60 [facility] Work Phone: Comment on above: GFR Calc Estimated GFR (MDRD) Non-Af Amer 46 mL/min >60 [facility] Work Phone: Comment on above: Non- GFR Calc Platelets bldon 12-14-2021 Platelets (Bld) [#/Vol] 257 10*3/uL 150-450 [facility] Work Phone: Protein Test strip Ql (U)on 12-14-2021 Protein Ql (U) 30 mg/dl Negative [facility] Work Phone: Serum or plasma albumin gustavo urement (mass/volume)on 12-14-2021 Albumin [Mass/Vol] 3.3 g/dL 3.2-5.0 [facility] Work Phone: Serum or plasma albumin/glob ulin mass ratioon 12-14-2021 Albumin/Globulin [Mass ratio] 0.9 {ratio} 0.9-2.4 [facility] Work Phone: Serum or plasma calcium gustavo urement (mass/volume)on 12-14-2021 Calcium [Mass/Vol] 8.6 mg/dL 8.5-10.1 [facility] Work Phone: Serum or plasma creatinine m easurement (mass/volume)on 12-14-2021 Creatinine [Mass/Vol] 1.20 mg/dL 0.55-1.02 [facility] Work Phone: Comment on above: The validity of the calculated GFR & GFRAA in patients over 70 years has not been determined. Clinical correlation is essential. Serum or plasma urea nitroge n measurement (mass/volume)on 12-14-2021 Urea nitrogen [Mass/Vol] 32 mg/dL 7-18 [facility] Work Phone: Squamous epithelial cells de tection in urine sediment by light microscopyon 12-14-2021 Epithelial cells.squamous LM Ql (Urine sed) 5-10 SEEN /hpf [facility] Work Phone: Thin prep Papanicolaou smear with manual screeningon 12-14-2021 Thin prep Papanicolaou smear with manual screening 106 U/L 15-37 [facility] Work Phone: Comment on above: Slight Hemolysis, Re sult may be falsely increased. Thin prep Papanicolaou smear with manual screening 11 5-15 [facility] Work Phone: Urine blood detectionon 11-23 RBC Ql (U) 10 /ul Negative [facility] Work Phone: RBC Ql (U) 0-5 SEEN /hpf [facility] Work Phone: Urine clarityon 12-14-2021 Clarity (U) Clear Clear [facility] Work Phone: Urine color determinationon 12-14-2021 Color (U) Yellow Yellow [facility] Work Phone: Urine glucose detectionon Glucose Ql (U) Normal mg/dl Normal [facility] Work Phone: Urine leukocyte esterase det ection by dipstickon 12-14-2021 Leukocyte esterase Test strip Ql (U) 25 /ul Negative [facility] Work Phone: Urine pHon 12-14-2021 pH (U) 6.0 [pH] [facility] Work Phone: Urine sediment bacteria coun t by microscopy (number/high power field)on 12-14-2021 Bacteria LM.HPF (Urine sed) [#/Area] RARE /hpf None Seen [facility] Work Phone: Urine specific gravity measu rementon 12-14-2021 Specific gravity (U) [Rel density] 1.015 [facility] Work Phone: Urobilinogen Auto test strip Ql (U)on 12-14-2021 Urobilinogen Ql (U) Normal mg/dl Normal [facility] Work Phone: CNOVon 11-14-2020 CNOV Office Visit (PODIWS ) VANESSA HERNANDEZ ([id number]) 1945 F Date Time Provider Department 11/14/20 [...] Objective: Patient presents to clinic ambulating in [facility] Vasc: DP and PT pulses [...] Latonya Sol DPM Referring Provider: LATONYA SOL [[id number]] Allergies As of Date: 11/14/2020 Noted Allergy [...] by LATONYA SOL DPM on 11/14/20 Normal [facility] Vital Signs Date Time Vital Sign Value Performing Clinician Jojo tadeo 04-18-2025 09:54-0400 Body height 165.[address] Moon Rayo MD Work Phone: [facility] 04-18-2025 09:54-0400 Body mass index (BMI) [Ratio] 39.2 kg/m2 Dr. Moon Rayo MD Work Phone: [facility] 04-18-2025 09:54-0400 Body temperature 98.4 [degF] Dr. Moon Rayo MD Work Phone: [facility] 04-18-2025 09:54-0400 Body weight 107.[address] Moon Rayo MD Work Phone: [facility] 04-18-2025 09:54-0400 Diastolic blood pressure 85 mm[Hg] Dr. Moon Rayo MD Work Phone: [facility] 04-18-2025 09:54-0400 Heart rate 89 /min Dr. Moon Rayo MD Work Phone: [facility] 04-18-2025 09:54-0400 Respiratory rate 16 /min Dr. Moon Rayo MD Work Phone: [facility] 04-18-2025 09:54-0400 SaO2% (BldA) [Mass fraction] 93 % Dr. Moon Rayo MD Work Phone: [facility] 04-18-2025 09:54-0400 Systolic blood pressure 138 mm[Hg] Dr. Moon Rayo MD Work Phone: [facility] 02-21-2025 09:44-0400 Body height 165.[address] Moon Rayo MD Work Phone: [facility] 02-21-2025 09:44-0400 Body mass index (BMI) [Ratio] 38.5 kg/m2 Dr. Moon Rayo MD Work Phone: [facility] 02-21-2025 09:44-0400 Body temperature 98.4 [degF] Dr. Moon Rayo MD Work Phone: [facility] 02-21-2025 09:44-0400 Body weight 104.[address] Moon Raoy MD Work Phone: [facility] 02-21-2025 09:44-0400 Diastolic blood pressure 81 mm[Hg] Dr. Moon Rayo MD Work Phone: [facility] 02-21-2025 09:44-0400 Heart rate 90 /min Dr. Moon Rayo MD Work Phone: [facility] 02-21-2025 09:44-0400 Respiratory rate 16 /min Dr. Moon Rayo MD Work Phone: [facility] 02-21-2025 09:44-0400 SaO2% (BldA) [Mass fraction] 94 % Dr. Moon Rayo MD Work Phone: [facility] 02-21-2025 09:44-0400 Systolic blood pressure 135 mm[Hg] Dr. Moon Rayo MD Work Phone: [facility] 02-18-2025 13:36-0400 Body height 165.[address] Moon Rayo MD Work Phone: [facility] 02-18-2025 13:36-0400 Body mass index (BMI) [Ratio] 38.9 kg/m2 Dr. Moon Rayo MD Work Phone: [facility] 02-18-2025 13:36-0400 Body temperature 98 [degF] Dr. Moon Rayo MD Work Phone: [facility] 02-18-2025 13:36-0400 Body weight 106.[address] Mono Rayo MD Work Phone: [facility] 02-18-2025 13:36-0400 Diastolic blood pressure 87 mm[Hg] Dr. Moon Rayo MD Work Phone: [facility] 02-18-2025 13:36-0400 Heart rate 83 /min Dr. Moon Rayo MD Work Phone: [facility] 02-18-2025 13:36-0400 Respiratory rate 16 /min Dr. Moon Rayo MD Work Phone: [facility] 02-18-2025 13:36-0400 SaO2% (BldA) [Mass fraction] 93 % Dr. Moon Rayo MD Work Phone: [facility] 02-18-2025 13:36-0400 Systolic blood pressure 147 mm[Hg] Dr. Moon Rayo MD Work Phone: [facility] 10-31-2023 01:14-0400 Body temperature 98 [degF] Dr. Moon Rayo Work Phone: [facility] 10-31-2023 01:14-0400 Diastolic blood pressure 60 mm[Hg] Dr. Moon Rayo Work Phone: [facility] 10-31-2023 01:14-0400 Heart rate 85 /min Dr. Moon Rayo Work Phone: [facility] 10-31-2023 01:14-0400 Respiratory rate 18 /min Dr. Moon Rayo Work Phone: [facility] 10-31-2023 01:14-0400 SaO2% (BldA) [Mass fraction] 98 % Dr. Moon Rayo Work Phone: [facility] 10-31-2023 01:14-0400 Systolic blood pressure 158 mm[Hg] Dr. Moon Rayo Work Phone: [facility] 10-30-2023 23:06-0400 Body height 162.[address] Moon Rayo Work Phone: [facility] 10-30-2023 23:06-0400 Body mass index (BMI) [Ratio] 38.7 kg/m2 Dr. Moon Rayo Work Phone: [facility] 10-30-2023 23:06-0400 Body weight 102.[address] Moon Rayo Work Phone: [facility] 10-24-2023 13:58-0400 Body height 162.[address] Moon Rayo Work Phone: [facility] 10-24-2023 13:58-0400 Body mass index (BMI) [Ratio] 38 kg/m2 Dr. Moon Rayo Work Phone: [facility] 10-24-2023 13:58-0400 Body temperature 98.4 [degF] Dr. Moon Rayo Work Phone: [facility] 10-24-2023 13:58-0400 Body weight 100.[address] Moon Rayo Work Phone: [facility] 10-24-2023 13:58-0400 Diastolic blood pressure 77 mm[Hg] Dr. Moon Rayo Work Phone: [facility] 10-24-2023 13:58-0400 Heart rate 97 /min Dr. Moon Rayo Work Phone: [facility] 10-24-2023 13:58-0400 Respiratory rate 18 /min Dr. Moon Rayo Work Phone: [facility] 10-24-2023 13:58-0400 SaO2% (BldA) [Mass fraction] 94 % Dr. Moon Rayo Work Phone: [facility] 10-24-2023 13:58-0400 Systolic blood pressure 136 mm[Hg] Dr. Moon Rayo Work Phone: [facility] 10-06-2023 13:51-0400 Body mass index (BMI) [Ratio] 39.4 kg/m2 Dr. Moon Rayo Work Phone: [facility] 10-06-2023 13:51-0400 Body temperature 98.1 [degF] Dr. Moon Rayo Work Phone: [facility] 10-06-2023 13:51-0400 Body weight 104.[address] Moon aRyo Work Phone: [facility] 10-06-2023 13:51-0400 Diastolic blood pressure 79 mm[Hg] Dr. Moon Rayo Work Phone: [facility] 10-06-2023 13:51-0400 Heart rate 85 /min Dr. Moon Rayo Work Phone: [facility] 10-06-2023 13:51-0400 SaO2% (BldA) [Mass fraction] 92 % Dr. Moon Rayo Work Phone: [facility] 10-06-2023 13:51-0400 Systolic blood pressure 130 mm[Hg] Dr. Moon Rayo Work Phone: [facility] 09-28-2023 10:46-0500 Body temperature 97.6 [degF] Dr. Moon Rayo Work Phone: [facility] 09-28-2023 10:46-0500 Diastolic blood pressure 73 mm[Hg] Dr. Moon Rayo Work Phone: [facility] 09-28-2023 10:46-0500 Heart rate 81 /min Dr. Moon Rayo Work Phone: [facility] 09-28-2023 10:46-0500 Respiratory rate 14 /min Dr. Moon Rayo Work Phone: [facility] 09-28-2023 10:46-0500 SaO2% (BldA) [Mass fraction] 96 % Dr. Moon Rayo Work Phone: [facility] 09-28-2023 10:46-0500 Systolic blood pressure 121 mm[Hg] Dr. Moon Rayo Work Phone: [facility] 09-28-2023 02:25-0500 Body mass index (BMI) [Ratio] 39.2 kg/m2 Dr. Moon Rayo Work Phone: [facility] 09-27-2023 09:31-0500 Body height 162.[address] Moon Rayo Work Phone: [facility] 09-27-2023 09:31-0500 Body weight 103.[address] Moon Rayo Work Phone: [facility] 09-26-2023 15:33-0500 Body temperature 97.5 [degF] Dr. Moon Rayo Work Phone: [facility] 09-26-2023 15:33-0500 Diastolic blood pressure 81 mm[Hg] Dr. Moon Rayo Work Phone: [facility] 09-26-2023 15:33-0500 Heart rate 86 /min Dr. Moon Rayo Work Phone: [facility] 09-26-2023 15:33-0500 Respiratory rate 16 /min Dr. Moon Rayo Work Phone: [facility] 09-26-2023 15:33-0500 SaO2% (BldA) [Mass fraction] 97 % Dr. Moon Rayo Work Phone: [facility] 09-26-2023 15:33-0500 Systolic blood pressure 143 mm[Hg] Dr. Moon Rayo Work Phone: [facility] 09-26-2023 15:18-0500 Body height 162.[address] Moon Rayo Work Phone: [facility] 09-26-2023 15:18-0500 Body mass index (BMI) [Ratio] 39.2 kg/m2 Dr. Moon Rayo Work Phone: [facility] 09-26-2023 15:18-0500 Body weight 103.[address] Moon Rayo Work Phone: [facility] 08-22-2023 13:38-0500 Body mass index (BMI) [Ratio] 40.2 kg/m2 Dr. Moon Rayo Work Phone: [facility] 08-22-2023 13:38-0500 Body temperature 97.1 [degF] Dr. Moon Rayo Work Phone: [facility] 08-22-2023 13:38-0500 Body weight 106.[address] Moon Rayo Work Phone: [facility] 08-22-2023 13:38-0500 Diastolic blood pressure 64 mm[Hg] Dr. Moon Rayo Work Phone: [facility] 08-22-2023 13:38-0500 Heart rate 18 /min Dr. Moon Rayo Work Phone: [facility] 08-22-2023 13:38-0500 Respiratory rate 18 /min Dr. Moon Rayo Work Phone: [facility] 08-22-2023 13:38-0500 SaO2% (BldA) [Mass fraction] 94 % Dr. Moon Rayo Work Phone: [facility] 08-22-2023 13:38-0500 Systolic blood pressure 103 mm[Hg] Dr. Moon Rayo Work Phone: [facility] 08-16-2023 13:35-0500 Body temperature 98.5 [degF] Dr. Moon Rayo Work Phone: [facility] 08-16-2023 13:35-0500 Diastolic blood pressure 56 mm[Hg] Dr. Moon Rayo Work Phone: [facility] 08-16-2023 13:35-0500 Heart rate 101 /min Dr. Moon Rayo Work Phone: [facility] 08-16-2023 13:35-0500 Respiratory rate 18 /min Dr. Moon Rayo Work Phone: [facility] 08-16-2023 13:35-0500 SaO2% (BldA) [Mass fraction] 95 % Dr. Moon Rayo Work Phone: [facility] 08-16-2023 13:35-0500 Systolic blood pressure 109 mm[Hg] Dr. Moon Rayo Work Phone: [facility] 08-16-2023 05:50-0500 Body mass index (BMI) [Ratio] 31.4 kg/m2 Dr. Moon Rayo Work Phone: [facility] 08-16-2023 05:50-0500 Body weight 83.[address] Moon Rayo Work Phone: [facility] 08-14-2023 10:59-0500 Body height 162.[address] Moon Rayo Work Phone: [facility] 08-13-2023 22:15-0500 Diastolic blood pressure 66 mm[Hg] Dr. Moon Rayo Work Phone: [facility] 08-13-2023 22:15-0500 Heart rate 80 /min Dr. Moon Rayo Work Phone: [facility] 08-13-2023 22:15-0500 Respiratory rate 19 /min Dr. Moon Rayo Work Phone: [facility] 08-13-2023 22:15-0500 Systolic blood pressure 107 mm[Hg] Dr. Moon Rayo Work Phone: [facility] 08-13-2023 19:17-0500 Body height 162.[address] Moon Rayo Work Phone: [facility] 08-13-2023 19:17-0500 Body mass index (BMI) [Ratio] 40.4 kg/m2 Dr. Moon Rayo Work Phone: [facility] 08-13-2023 19:17-0500 Body temperature 97.3 [degF] Dr. Moon Rayo Work Phone: [facility] 08-13-2023 19:17-0500 Body weight 106.[address] Moon Rayo Work Phone: [facility] 07-28-2023 14:15-0500 Body height 162.[address] Moon Rayo Work Phone: [facility] 07-28-2023 14:15-0500 Body mass index (BMI) [Ratio] 41.2 kg/m2 Dr. Moon Rayo Work Phone: [facility] 07-28-2023 14:15-0500 Body temperature 96.3 [degF] Dr. Moon Rayo Work Phone: [facility] 07-28-2023 14:15-0500 Body weight 108.[address] Moon Rayo Work Phone: [facility] 07-28-2023 14:15-0500 Diastolic blood pressure 71 mm[Hg] Dr. Moon Rayo Work Phone: [facility] 07-28-2023 14:15-0500 Heart rate 80 /min Dr. Moon Rayo Work Phone: [facility] 07-28-2023 14:15-0500 Respiratory rate 16 /min Dr. Moon Rayo Work Phone: [facility] 07-28-2023 14:15-0500 SaO2% (BldA) [Mass fraction] 92 % Dr. Moon Rayo Work Phone: [facility] 07-28-2023 14:15-0500 Systolic blood pressure 107 mm[Hg] Dr. Moon Rayo Work Phone: [facility] 04-13-2023 11:10-0400 Body height 162.[address] Moon Rayo Work Phone: [facility] 04-13-2023 11:10-0400 Body mass index (BMI) [Ratio] 42 kg/m2 Dr. Moon Rayo Work Phone: [facility] 04-13-2023 11:10-0400 Body temperature 98.2 [degF] Dr. Moon Rayo Work Phone: [facility] 04-13-2023 11:10-0400 Body weight 111.[address] Moon Rayo Work Phone: [facility] 04-13-2023 11:10-0400 Diastolic blood pressure 75 mm[Hg] Dr. Moon Rayo Work Phone: [facility] 04-13-2023 11:10-0400 Heart rate 77 /min Dr. Moon Rayo Work Phone: [facility] 04-13-2023 11:10-0400 Respiratory rate 18 /min Dr. Moon Rayo Work Phone: [facility] 04-13-2023 11:10-0400 SaO2% (BldA) [Mass fraction] 94 % Dr. Moon Rayo Work Phone: [facility] 04-13-2023 11:10-0400 Systolic blood pressure 123 mm[Hg] Dr. Moon Rayo Work Phone: [facility] 07-15-2022 13:17-0500 Body temperature 98.1 [degF] Dr. Moon Rayo Work Phone: [facility] Work Phone: 07-15-2022 13:17-0500 Body weight 111.[address] Moon Rayo Work Phone: [facility] Work Phone: 07-15-2022 13:17-0500 Diastolic blood pressure 85 mm[Hg] Dr. Moon Rayo Work Phone: [facility] [facility] Work [facility]: 07-15-2022 13:17-0500 Heart rate 90 /min Dr. Moon Rayo Work Phone: [facility] Work Phone: 07-15-2022 13:17-0500 Respiratory rate 18 /min Dr. Moon Rayo Work Phone: [facility] Work Phone: 07-15-2022 13:17-0500 SaO2% (BldA) [Mass fraction] 95 % Dr. Moon Rayo Work Phone: [facility] Work Phone: 07-15-2022 13:17-0500 Systolic blood pressure 158 mm[Hg] Dr. Moon Rayo Work Phone: [facility] Work Phone: 07-13-2022 09:11-0500 Body temperature 98.3 [degF] Dr. Moon Rayo Work Phone: [facility] Work Phone: 07-13-2022 09:11-0500 Diastolic blood pressure 90 mm[Hg] Dr. Moon Rayo Work Phone: [facility] Work Phone: 07-13-2022 09:11-0500 Heart rate 82 /min Dr. Moon Rayo Work Phone: [facility] Work Phone: 07-13-2022 09:11-0500 Respiratory rate 18 /min Dr. Moon Rayo Work Phone: [facility] Work Phone: 07-13-2022 09:11-0500 SaO2% (BldA) [Mass fraction] 98 % Dr. Moon Rayo Work Phone: [facility] Work Phone: 07-13-2022 09:11-0500 Systolic blood pressure 159 mm[Hg] Dr. Moon Rayo Work Phone: [facility] Work Phone: 07-13-2022 07:02-0500 Body height 162.[address] Moon Rayo Work Phone: [facility] Work Phone: 07-13-2022 07:02-0500 Body mass index (BMI) [Ratio] 43.2 kg/m2 Dr. Moon Rayo Work Phone: [facility] Work Phone: 07-13-2022 07:02-0500 Body weight 114.[address] Moon Rayo Work Phone: [facility] Work Phone: 12-14-2021 18:52-0400 Diastolic blood pressure 74 mm[Hg] Dr. Moon Rayo Work Phone: [facility] Work Phone: 12-14-2021 18:52-0400 Heart rate 100 /min Dr. Moon Rayo Work Phone: [facility] Work Phone: 12-14-2021 18:52-0400 Respiratory rate 20 /min Dr. Moon Rayo Work Phone: [facility] Work Phone: 12-14-2021 18:52-0400 SaO2% (BldA) [Mass fraction] 98 % Dr. Moon Rayo Work Phone: [facility] Work Phone: 12-14-2021 18:52-0400 Systolic blood pressure 115 mm[Hg] Dr. Moon Rayo Work Phone: [facility] Work Phone: 12-14-2021 14:02-0400 Body height 162.[address] Moon Rayo Work Phone: [facility] Work Phone: 12-14-2021 14:02-0400 Body mass index (BMI) [Ratio] 41.7 kg/m2 Dr. Moon Rayo Work Phone: [facility] Work Phone: 12-14-2021 14:02-0400 Body temperature 97.5 [degF] Dr. Moon Rayo Work Phone: [facility] Work Phone: 12-14-2021 14:02-0400 Body weight 110.[address] Moon Rayo Work Phone: [facility] Work Phone: 11-02-2021 08:09-0400 Body mass index (BMI) [Ratio] 41.7 kg/m2 Dr. Moon Rayo Work Phone: [facility] Work Phone: 11-02-2021 08:09-0400 Body temperature 96 [degF] Dr. Moon Rayo Work Phone: [facility] Work Phone: 11-02-2021 08:09-0400 Body weight 110.[address] Moon Rayo Work Phone: [facility] Work Phone: 11-02-2021 08:09-0400 Diastolic blood pressure 80 mm[Hg] Dr. Moon Rayo Work Phone: [facility] Work Phone: 11-02-2021 08:09-0400 Heart rate 81 /min Dr. Moon Rayo Work Phone: [facility] Work Phone: 11-02-2021 08:09-0400 Respiratory rate 18 /min Dr. Moon Rayo Work Phone: [facility] Work Phone: 11-02-2021 08:09-0400 SaO2% (BldA) [Mass fraction] 97 % Dr. Moon Rayo Work Phone: [facility] Work Phone: 11-02-2021 08:09-0400 Systolic blood pressure 124 mm[Hg] Dr. Moon Rayo Work Phone: [facility] Work Phone: Encounters Encounter Date Encounter Type Care Provider Facility Start: 05-29-2025 ambulatory Moon Rayo Facility :[facility] Start: 05-24-2025 End: 05-24-2025 ambulatory Alvin Steele [place] Start: 04-18-2025 End: 04-18-[address] Moon Rayo MD -[facility] Work Phone: Start: 04-18-2025 End: 04-18-[address] Moon Rayo MD Work Phone: -[facility] Start: 03-04-2025 ambulatory Moon Rayo Facility :[facility] Start: 02-21-2025 End: 02-21-[address] Moon Rayo MD -[facility] Work Phone: Start: 02-21-2025 End: 02-21-[address] Moon Rayo MD Work Phone: -[facility] Start: 02-18-2025 End: 02-18-[address] Moon Rayo MD -[facility] Work Phone: Start: 02-18-2025 End: 02-18-[address] Moon Rayo MD Work Phone: -[facility] Start: 01-28-2025 End: 01-28-[address] Moon Rayo MD Work Phone: -Physical Therapy Start: 01-28-2025 End: 01-28-[address] Moon Rayo MD -Physical Therapy Work Phone: Start: 01-22-2025 Non-patient / Non-visit Dr. Jojo lin MD -[facility] Work Phone: Start: 09-03-2024 End: 09-03-2024 ambulatory Moon Rayo Facility[place] Start: 08-26-2024 End: 08-26-2024 Emergency department patient visit Moon Rayo Facility:[facility] Start: 07-14-2024 End: 07-14-2024 Emergency department patient visit Moon Rayo Facility:[facility] Start: 05-28-2024 End: 05-28-2024 ambulatory Moon Rayo Facility:[facility] Start: 10-30-2023 End: 10-31-2023 Emergency department patient visit Dr. Moon Rayo Work Phone: [facility] Work Phone: Start: 10-30-2023 End: 10-31-2023 Dr. Moon Rayo Work Phone: [facility]-Emergency Department Work Phone: Start: 10-25-2023 End: 10-30-2023 ambulatory MOON RAYO MD Facility:[facility] Start: 10-25-2023 End: 10-29-2023 Outreach Lab MOON RAYO MD [facility] Start: 10-24-2023 End: 10-24-[address] Moon Rayo Work Phone: [facility] Work Phone: Start: 10-24-2023 End: 10-24-2023 Dr. Moon Rayo Work Phone: [facility] [place] Work Phone: Start: 10-12-2023 End: 10-12-2023 Dr. Moon Rayo Work Phone: [facility] [place] Work Phone: Start: 10-04-2023 Dr[facility] Start: 10-03-2023 Dr. Moon Waldrop hner Work Phone: [facility] Start: 09-29-2023 Dr. Moon Waldrop hner Work Phone: [facility] Start: 09-28-2023 Dr. Moon Waldrop hner Work Phone: [facility] Work Phone: Start: 09-27-2023 Dr. Moon Waldrop hner Work Phone: [facility] Work Phone: Start: 09-27-2023 Dr. Moon Waldrop hner Work Phone: [facility] Start: 09-26-2023 End: 09-28-2023 Evaluation and management of inpatient Dr. Moon Rayo Work Phone: [facility] Work Phone: Start: 09-26-2023 End: 09-28-2023 Dr. Moon Rayo Work Phone: [facility]-Progressive Care Unit Work Phone: Start: 08-22-2023 End: 08-22-2023 Dr. Moon Rayo Work Phone: [facility] Work Phone: Start: 08-16-2023 Non-patient / Non-visit Dr. Nara Rayo Work Phone: [facility] Work Phone: Start: 08-16-2023 Dr. Moon Waldrop hner Work Phone: [facility] Work Phone: Start: 08-15-2023 Non-patient / Non-visit Dr. Nara Rayo Work Phone: [facility] Work Phone: Start: 08-15-2023 Dr. Moon Waldrop hner Work Phone: [facility] Work Phone: Start: 08-15-2023 Non-patient / Non-visit Dr. Nara Rayo Work Phone: [facility] Start: 08-15-2023 Dr. Moon Waldrop hner Work Phone: [facility] Start: 08-14-2023 Non-patient / Non-visit Dr. Nara Rayo Work Phone: [facility] Work Phone: Start: 08-14-2023 Dr. Moon ochoa Work Phone: [facility] Work Phone: Start: 08-13-2023 End: 08-16-2023 Dr. Moon Rayo Work Phone: [facility] Work Phone: Start: 08-13-2023 End: 08-16-2023 Evaluation and management of inpatient Dr. Moon Rayo Work Phone: [facility] Work Phone: Start: 08-13-[address] Meseret Rayo Work Phone: [facility] Work Phone: Start: 08-01-2023 End: 08-01-[address] Moon Rayo Work Phone: [facility] Work Phone: Start: 08-01-2023 End: 08-01-[address] [facility] Start: 08-01-2023 End: 08-01-2023 Dr. Moon [facility]yo [facility] Start: 07-28-2023 End: 07-28-[address] Moon Rayo Work Phone: [facility] Work Phone: Start: 07-28-2023 End: 07-28-2023 Dr. Moon Rayo Work Phone: [facility] Work Phone: Start: 04-27-2023 End: 04-27-2023 Emergency department patient visit Dr. Moon Rayo Work Phone: [facility]Emergency Department Work Phone: Start: 04-13-2023 Non-patient / Non-visit Dr. Nara Rayo Work Phone: [facility] Start: 04-13-2023 End: 04-13-[address] Moon Rayo Work Phone: [facility] Work Phone: Start: 04-13-2023 End: 04-13-[address] [facility] Start: 04-13-2023 End: 04-13-[address] Moon Rayo Work Phone: [facility] Work Phone: Start: 07-15-2022 End: 07-15-[address] Moon Rayo Work Phone: [facility] Work Phone: Start: 07-15-2022 End: 07-15-[address] Moon Rayo Work Phone: [facility] [place] Start: 07-15-2022 End: 07-15-[address] Moon Rayo Work Phone: [facility] [place] Start: 07-13-2022 End: 07-13-2022 Emergency department patient visit Dr. Moon Rayo Work Phone: [facility]Emergency [facility] Start: 06-14-2022 Non-patient / Non-visit Dr. Nara Rayo Work Phone: [facility] Start: 12-14-2021 End: 12-14-2021 Emergency department patient visit Dr. Moon Rayo Work Phone: [facility]Emergency [facility] Start: 11-02-2021 End: 11-02-[address] Moon Rayo Work Phone: [facility] Procedures Date Procedure Procedure Detail [...] Date Care Activity Detail Author Start: 10-31-2023 [facility] Start: 10-12-2023 Patient referral [facility] Work Phone: Start: 09-28-2023 Patient discharge [facility] Start: 09-27-2023 Thyroid stimulating hormone measurement [facility] Start: 09-27-2023 [facility] Start: 09-26-2023 Measurement of occul t blood in stool specimen using immunoassay [facility] Start: 09-26-2023 Assessment of risk o f venous thromboembolism [facility] Start: 09-26-2023 Cardiac monitoring [facility] Start: 09-26-2023 Catheterization of vein [facility] Start: 09-26-2023 Continuous pulse oximetry [facility] Start: 09-26-2023 Elevation of head of bed [facility] Start: 09-26-2023 Exercises [facility] Start: 09-26-[address] anned interventions [facility] Start: 09-26-2023 Incentive spirometry [facility] Start: 09-26-2023 Insertion of cathete r into peripheral vein [facility] Start: 09-26-2023 Measuring intake and output [facility] Start: 09-26-2023 Notification of physician [facility] Start: 09-26-2023 Oxygen therapy [facility] Start: 09-26-2023 Patient referral to dietitian [facility] Start: 09-26-2023 Providing care accor ding to standard [facility] Start: 09-26-2023 Provision of activit y privileges [facility] Start: 09-26-2023 Referral to occupati onal therapist [facility] Start: 09-26-2023 Referral to service [facility] Start: 09-26-2023 End: 09-26-2023 Speech therapy assessment [facility] Start: 09-26-2023 Telemedicine consult ation with patient [facility] Start: 09-26-2023 Tobacco use cessatio n education [facility] Start: 09-26-2023 [facility] Start: 09-26-2023 Vital signs measurements [facility] Start: 09-26-2023 MRI of brain without contrast [facility] Start: 09-26-2023 Following clinical p athway protocol [facility] Start: 09-26-2023 Verification routine [facility] Start: 09-26-2023 Admission procedure [facility] Start: 08-16-2023 Referral to service [facility] Start: 08-16-2023 Patient discharge [facility] Start: 08-14-2023 Thyroid stimulating hormone measurement [facility] Start: 08-14-2023 [facility] Start: 08-13-2023 Following clinical p athway protocol [facility] Start: 08-13-2023 Assessment of risk o f venous thromboembolism [facility] Start: 08-13-2023 Contact precautions [facility] Start: 08-13-2023 Insertion of cathete r into peripheral vein [facility] Start: 08-13-2023 Measuring intake and output [facility] Start: 08-13-2023 Oxygen therapy [facility] Start: 08-13-2023 Providing care accor ding to standard [facility] Start: 08-13-2023 Provision of activit y privileges [facility] Start: 08-13-2023 Referral to occupati onal therapist [facility] Start: 08-13-2023 Referral to service [facility] Start: 08-13-2023 [facility] Start: 08-13-2023 Verification routine [facility] Start: 08-13-2023 Admission procedure [facility] Start: 08-13-2023 [facility] Start: 08-13-2023 Bacteria identified in Urine by Culture [facility] Start: 08-13-2023 Patient referral to dietitian [facility] Start: 04-27-2023 Simple repair scalp/neck/ax/genit/trunk 2.5cm/< RPR S/N/AX/GEN/TRNK 2.5CM/< [facility] Start: 04-13-2023 Patient referral [facility] Work Phone: Alanine aminotransfe rase [Enzymatic activity/volume] in Serum or Plasma [facility] Alanine aminotransfe rase [Enzymatic activity/volume] in Serum or Plasma [facility] Albumin [Mass/volume ] in Serum or Plasma [facility] Albumin [Mass/volume ] in Serum or Plasma [facility] Alkaline phosphatase [Enzymatic activity/volume] in Serum or Plasma [facility] Alkaline phosphatase [Enzymatic activity/volume] in Serum or Plasma [facility] Anion gap measurement [facility] Anion gap measurement [facility] Aspartate aminotrans ferase [Enzymatic activity/volume] in Serum or Plasma [facility] Aspartate aminotrans ferase [Enzymatic activity/volume] in Serum or Plasma [facility] Bilirubin, total measurement [facility] Bilirubin, total measurement [facility] BUN/Creatinine ratio [facility] BUN/Creatinine ratio [facility] C reactive protein [Mass/volume] in Serum or Plasma [facility] Calcium [Mass/volume ] in Serum or Plasma [facility] Calcium [Mass/volume ] in Serum or Plasma [facility] Carbon dioxide, tota l [Moles/volume] in Serum or Plasma [facility] Carbon dioxide, tota l [Moles/volume] in Serum or Plasma [facility] Cardiac event recording [facility] Chloride [Moles/volu me] in Serum or Plasma [facility] Chloride [Moles/volu me] in Serum or Plasma [facility] Cholesterol [Mass/vo lume] in Serum or Plasma [facility] Cholesterol in HDL [Mass/volume] in Serum or Plasma [facility] Cholesterol in LDL [Mass/volume] in Serum or Plasma [facility] Creatinine [Moles/vo lume] in Serum or Plasma [facility] Creatinine [Moles/vo lume] in Serum or Plasma [facility] Erythrocyte mean cor puscular volume determination [facility] Erythrocyte mean cor puscular volume determination [facility] Erythrocyte sediment ation rate [facility] Ferritin [Mass/volum e] in Serum or Plasma [facility] Glucose [Mass/volume ] in Serum or Plasma [facility] Glucose [Mass/volume ] in Serum or Plasma [facility] Hematocrit [Volume F raction] of Blood [facility] Hematocrit [Volume F raction] of Blood [facility] Hemoglobin [Mass/vol ume] in Blood [facility] Hemoglobin [Mass/vol ume] in Blood [facility] Hemoglobin A1c/Hemoglobin.total in Blood [facility] Iron [Mass/mass] in Unspecified specimen [facility] Iron and Iron bindin g capacity panel - Serum or Plasma [facility] Iron saturation [Mas s Fraction] in Serum or Plasma [facility] Leukocytes [#/volume ] in Blood [facility] Leukocytes [#/volume ] in Blood [facility] Magnesium [Mass/volu me] in Serum or Plasma [facility] Magnesium [Mass/volu me] in Serum or Plasma [facility] Mean corpuscular hem oglobin concentration determination [facility] Mean corpuscular hem oglobin concentration determination [facility] Mean corpuscular hem oglobin determination [facility] Mean corpuscular hem oglobin determination [facility] Measurement of renal function [facility] Measurement of renal function [facility] Neutrophil count [facility] Neutrophil count [facility] Neutrophil percent differential count [facility] Neutrophil percent differential count [facility] Patient Education [facility] Work Phone: Patient referral [facility] Work Phone: Platelets [#/volume] in Blood [facility] Platelets [#/volume] in Blood [facility] Potassium [Moles/vol ume] in Serum or Plasma [facility] Potassium [Moles/vol ume] in Serum or Plasma [facility] Red blood cell count [facility] Red blood cell count [facility] Red cell distributio n width determination [facility] Red cell distributio n width determination [facility] Serum inorganic phos phate measurement [facility] Serum inorganic phos phate measurement [facility] Sodium [Moles/volume ] in Serum or Plasma [facility] Sodium [Moles/volume ] in Serum or Plasma [facility] Total protein measurement [facility] Total protein measurement [facility] Triglycerides measurement [facility] Urea nitrogen [Mass/ volume] in Serum or Plasma [facility] Urea nitrogen [Mass/ volume] in Serum or Plasma [facility] VLDL cholesterol measurement [facility] Immunizations Immunization Date Immunization Notes Care Provider [facility] 07-13-2022 tetanus toxoid, redu [place] diphtheria toxoid, and acellular pertussis vaccine, adsorbed Dr. Moon Rayo Work Phone: [facility] 01-05-2022 tetanus toxoid, redu [place] diphtheria toxoid, and acellular pertussis vaccine, adsorbed Dr. Moon Rayo Work Phone: [facility] 07-09-2021 Covid (Moderna) Dr. Moon brandon Work Phone: [facility] 06-04-[address] Moon Rayo Work Phone: [facility] 02-09-[address] Moon Rayo Work Phone: [facility] 12-12-2020 Covid (Moderna) Dr. Moon brandon Work Phone: [facility] 11-14-2020 Covid (Moderna) Dr. Moon brandon Work Phone: [facility] 04-23-2020 influenza, injectabl e, quadrivalent, preservative free Dr. Moon Rayo Work Phone: [facility] 04-23-2020 influenza, seasonal, injectable Dr. Moon Rayo Work Phone: [facility] Work Phone: 04-23-2020 Seasonal, quadrivale nt, recombinant, injectable influenza vaccine, preservative free Dr. Moon Rayo Work Phone: [facility] 04-23-2020 Fluad Quad (65yr up)(PF) 60 mcg (15 mcg x 4)/0.5mL IM syringe (flu vac Dr. Moon Rayo Work Phone: [facility] Work Phone: 04-30-2019 Influenza, high dose seasonal Dr. Moon Rayo MD Work Phone: [facility] 04-30-2019 influenza, high dose seasonal, preservative-free Dr. Moon Rayo Work Phone: [facility] Payers Date Payer Category Payer Unknown [id number] 2024 Unknown [id number] 2023 Self-pay [id number] Unknown [id number] Medicaid [id number] Medicare [id number] Medicare [id number] 523 [id number] Unknown [id number] Unknown [id number] 2.16.8 40.1.917578.3.579.2.462 Unknown [id number] 2.16.8 40.1.364179.3.579.2.462 Unknown [id number] 2.16.8 40.1.033898.3.579.2.462 Unknown [id number] 2.16.8 40.1.855610.3.579.2.462 Unknown [id number] 2.16.8 40.1.731091.3.579.2.462 Unknown [id number] 2.16.8 40.1.631991.3.579.2.462 Unknown [id number] 2.16.8 40.1.705463.3.579.2.462 Unknown [id number] 2.16.8 40.1.681807.3.579.2.462 Unknown [id number] 2.16.8 40.1.719697.3.579.2.462 Unknown [id number] 2.16.8 40.1.786773.3.579.2.462 Unknown [id number] 2.16.8 40.1.121198.3.579.2.462 Unknown [id number] 2.16.8 40.1.295681.3.579.2.462 Social History Date Type Detail Facility Start: 12-14-2021 End: 10-30-2023 Tobacco smoking status NHIS Unknown if ever smoked [facility] Start: 09-24-2020 None [facility] Start: 09-24-2020 Alone [facility] Start: 12-01-2020 Cigarettes [facility] Start: 1945 Sex Assigned At Female [facility] Tobacco smoking status No Smokin g Status Entered [facility] Start: 08-31-2024 Tobacco smoking stat us AZIS Ex-smoker (finding) [facility] Sex Female [facility] Medical Equipment Procedure Code Equipment Code Equipment [...] Assessment Result Facility 09-28-2023 Functional status Bedrest [facility] Work Phone: 08-16-2023 Functional status Chair [facility] Work Phone: 08-16-2023 Functional status With Assist of 2 [facility] Work Phone: Mental Status Date Assessment Result Facility 10-30-2023 Cognitive function Awake;Alert;A ppropriate;Follow s Commands [facility] Work Phone: 09-28-2023 Cognitive function Voice/Name [facility] Work Phone: 09-26-2023 Cognitive function Voice/Name [facility] Work Phone: 08-16-2023 Cognitive function Voice/Name [facility] Work Phone: 08-13-2023 Cognitive function Level Of Cons ciousness Awake;Alert;Appropriate;Follow s Commands [facility] Work Phone: Clinical Notes 09-16-2020 to 04-18-2025 Note Date & Type Note Facility 04-18-2025 Progress note [facility] 02-18-2025 Evaluation note Diagnosis Onset Date Resolution Bilateral lower extremity edema acute February 18, 2025 1:25pm Subconjunctival hemorrhage acute February 18, 2025 1:25pm Cellulitis resolved February 18 1:25pm [facility] Work Phone: 1(816) 187-480007-28-2025 Evaluation note* Diagnosis Onset Date Resolution Status Admit Date Bilateral lower extremity edema acute February 18, 2025 1:25pm Subconjunctival hemorrhage acute February 18, 2025 1:25pm Cellulitis resolved February 18 1:25pm Bilateral lower extremity edema acute February 21, 2025 9:26am Cellulitis resolved February 21 9:26am Bilateral occipital neuralgia acute April 18, 2025 9:21am Neck pain noneactive March 9:21am [facility] Work Phone: 1(661) 993-410307-07-2025 Discharge summary [facility] Physical Therapy [address] [place] [address] / REHABILITATION SERVICES DISCHARGE SUMMARY MR#: [id number] Acct: [id number] Name: VANESSA HERNANDEZ Rep #: [id number] : 1945 79 From: Dulce Maria An [...] please feel free to call me at [phone]. Thank you for the referral of thispatient. Sincerely, Dulce Maria Lance, MPT Balance/Gait/Functional tests Balance/Special Test Scores Lower Extremity Functional Score: 44 Improvement % Improvement: 90 01/28/25 0958 CC: Dr. Moon Rayo MD ~ Signed [facility]04-07-2024 Discharge summary Author Cam Delgado [facility] October 31, 2023 12:53am Note Date/Time October 30, 2023 11:2 7pm [facility] Medical Records Department [address] [place] [address] Emergency Department Summary 10/30/23 MR#: [id number] Acct: [id number] Name: VANESSA HERNANDEZ Rep #:[id number] : 1945 78 From: Cam Delgado MD [...] but no different and no injury there. [facility] Medical History Abdominal pain Anxiety [...] your Primary Care Provider. Call [facility] ([phone]) or report to the closest Emergency Room. Call 911 if necessary. 10/31/2352 <Electronically signed by Cam Delgado MD> Cosigner Signature (if applicable): CC: Dr. Moon Rayo MD ~ Signed [facility] Work Phone: 1(357) 956-277303-06-[address] [facility] September 28, 2023 2:53pm Note Date/Time September 28, 2023 2:53 pm [facility] Medical Records Department [address] [place] [address] Discharge Summary 09/28/23 1452 MR#: [id number] Acct: [id number] Name: VANESSA HERNANDEZ Rep #:[id number] : 1945 78 From: Hima Gonzalez [facility] PCP: Dr. Moon Rayo MD Status:ADM IN Location: [place] [address] Providers Date of Admission: 09/26/23 Date of [...] is a 78-year-old female who presented to [facility] ED on 09/26/2023 with dysarthria, right facial droop and right facial numbness/tingling concerning for stroke. Hospital course as noted below. Patient discharged to shelter facility in stable condition on 09/27. 1. [...] ? PT/OT/case management followed. Patient discharged to shelter facility in stable condition on 09/27. ? [...] Adrienne Miranda; Shruti Spencer; Latonya Renee; Love Hanyd; Addie Guardado; Trisha Burden; Ha Baxter; Sukhdev [...] in before D/C Order can be placed): [facility] Facility Charges/Coding Visit Charges Inpatient E&M: 23447 Disch Hosp >30min 09/28/23 1453 <Electronically signed by Hima Zimmer DO> Cosigner Signature (if applicable): CC: Dr. Hima Zimmer DO; Dr. Moon Rayo MD~ Signed [facility] Work Phone: 1(260) 114-614103-06-2024 Discharge summary Author Hima Zimmer [facility] September 28, 2023 2:52pm Note Date/Time September 28, 2023 2:49 pm [facility] Medical Records Department [address] [place] [address] [place] [address] Instructions for Home/Discharge Instructions 09/28/23 1449 MR#: [id number] Acct: [id number] Name: VANESSA HERNANDEZ Rep #:[id number] : 1945 78 From: Hima pham DO [...] in before D/C Order can be placed): [facility] Facility 09/28/23 1452<Electronically signed by Hima Zimmer [...] Spencer DO; Will Locke MD ~ Signed [facility] Work Phone: 1(553) 937-404203-06-2024 Discharge summary Author Hima Mesha [facility] September 28, 2023 2:49pm Note Date/Time September 28, 2023 2:49 pm [facility] Medical Records Department [address] [place] [address] Transfer to [facility] MR#: [id number] Acct: [id number] Name: VANESSA HERNANDEZ Rep #:[id number] : 1945 78 From: Hima pham DO PCP: Dr. Moon Rayo MD Status:ADM IN Certification of patient admission REQUIRED AT TIME OF ADMISSION. I CERTIFY THAT POST-HOSPITAL ECF SERVICES ARE REQUIRED TO BE GIVEN ON AN IN-PATIENT BASIS BECAUSE OF THE ABOVE NAMED PATIENT'S NEED FOR HALF-WAY CARE ON A CONTINUING BASIS FOR THE [...] is a 78-year-old female who presented to [facility] ED on 09/26/2023 with dysarthria, right facial droop and right facial numbness/tingling concerning for stroke. Hospital course as noted below. Patient discharged to shelter facility in stable condition on 09/27. 1. [...] ? PT/OT/case management followed. Patient discharged to shelter facility in stable condition on 09/27. ? [...] Renee; Love Handy; Addie Guardado; Trisha Burden; aH Baxter; Sukhdev Ashraf; Kevin Gonzalez; Collette Chery; [...] Provider] - Charges/Coding Visit Charges Inpatient E&M: 85410 Disch Hosp >30min 09/28/23 1449 <Electronically signed [...] Shruti Spencer DO; Will Locke MD ~ [facility] Work Phone: 1(780) 506-385003-05-2024 Consult note Author [facility] September 27, 2023 2:02pm Note Date/Time September 27, 2023 12:3 6pm [facility] Medical Records Department [address] [place] [address] Consultation - Neurology 09/27/23 1235 MR#: [id number] Acct: [id number] Name: VANESSA HERNANDEZ Rep #:[id number] : 1945 78 From: Addie Wesley PCP: Dr. 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 [facility] Medical History (Updated 09/26/23 @ 15:26 by [...] (Auto) 74.3 H, Lymph % (Auto)12.2 L, Dawson % (Auto) 10.3 H, Eos % (Auto) [...] % (Auto) 64.8, Lymph % (Auto) 20.9, Dawson % (Auto) 9.8, Eos % (Auto) 3.8, [...] 13:36 EST Reading Location ID and State: [facility] / [place] Tel , Service support , ADDENDUM: 09/26/23 1354 IMPRESSION: No acute intracranial process identified. Chronic involutional and white matter changes. N.B. : The above Results were Read Back by Yvonne Florian MD to Joshua Santiago MD, and understanding confirmed on 09/26/2023 13:47:48 (ET). Electronically Signed: Yvonne Florian MD at 13:36 EST Reading Location ID and State: [facility] / [place] Tel , Service support , Head/Neck CTA 09/26/23 13:24 IMPRESSION: No evidence for significant stenosis or occlusion in the carotid or vertebral arteries of the neck. No evidence for large vessel occlusion in the [place]. Electronically Signed: Yvonne Florian MD at 14:03 EST Reading Location ID and State: [facility] / [place] Tel , Service support , ADDENDUM: 09/26/23 1412 IMPRESSION: No evidence for significant stenosis or occlusion in the carotid or vertebral arteries of the neck. No evidence for large vessel occlusion in the [place]. N.B. : The above [...] mls @ 15 mls/hr 09/26/23 15:16 IV .[id number] PRN Additional IVPB Infusion Sodium Chloride 250 mls @ 15 mls/hr 09/26/23 15:16 IV .[id number] PRN Saline Flush Labetalol HCl 10 - [...] Shruti Spencer DO; Will Locke MD~ Signed [facility] Work Phone: 1(639) 441-296603-05-2024 Progress note Author Hima [facility] September 27, 2023 12:08pm Note Date/Time September 27, 2023 10:1 3am [facility] Medical Records Department [address] [place] [address] Progress Note - Hospitalist 09/27/23 1013 MR#: [id number] Acct: [id number] Name: VANESSA HERNANDEZ Rep #:[id number] : 1945 78 From: Hima pham DO PCP: Dr. Moon Rayo MD Status:ADM IN Location: [place] [address]- 1 Reason for Visit Reason for Visit: [...] (Auto) 74.3 H, Lymph % (Auto)12.2 L, Dawson % (Auto) 10.3 H, Eos % (Auto) [...] % (Auto) 64.8, Lymph % (Auto) 20.9, Dawson % (Auto) 9.8, Eos % (Auto) 3.8, [...] evidence for large vessel occlusion in the [place]. Electronically Signed: Yvonne Florian MD at 14:03 EST , ADDENDUM: 09/26/23 1412 IMPRESSION: No evidence for significant stenosis or occlusion in the carotid or vertebral arteries of the neck. No evidence for large vessel occlusion in the [place]. N.B. : The above [...] is a 78-year-old female who presented to [facility] ED on 09/26/2023 with dysarthria, right [...] 35 minutes. Charges/Coding Visit Charges Inpatient E&M: 10834 Subs Hosp L2 09/27/23 1208 <Electronically signed by Hima Zimmer DO> Cosigner Signature (if applicable): CC: ~ Signed [facility] Work Phone: 1(134) 163-140103-04-2024 History and physical note Author Mona Chery [facility] September 26, 2023 3:35pm Note Date/Time September 26, 2023 3:35 pm [facility] Medical Records Department [address] [place] [address] H&P Exam - Hospitalist 09/26/23 1519 MR#: [id number] Acct: [id number] Name: VANESSA HERNANDEZ Rep #:[id number] : 1945 78 From: Mona Chery DO PCP: Dr. Moon Rayo MD Status:ADM IN Location: [place] [address]- 1 HPI - General General Date of Admission: 09/26/23 Date of Service: 09/26/23 Chief Complaint: Slurred speech HPI Narrative VANESSA HERNANDEZ, is a 78 F who presented to the emergency department at [facility] on 09/26/2023 with slurred speech. Patient [...] and neck was read as unremarkable [facility] had conversation with the [...] ongoing aspirin Plavix after admission. [facility] Medical History (Updated 09/26/23 @ 15:26 by [...] (Auto) 74.3 H, Lymph % (Auto)12.2 L, Dawson % (Auto) 10.3 H, Eos % (Auto) [...] 13:36 EST Reading Location ID and State: [facility] / [place] Tel , Service support , ADDENDUM: 09/26/23 1354 IMPRESSION: No acute intracranial process identified. Chronic involutional and white matter changes. N.B. : The above Results were Read Back by Yvonne Florian MD to Joshua Santiago MD, and understanding confirmed on 09/26/2023 13:47:48 (ET). Electronically Signed: Yvonne Florian MD at 13:36 EST Reading Location ID and State: [facility] / [place] Tel , Service support , Head/Neck CTA 09/26/23 13:24 IMPRESSION: No evidence for significant stenosis or occlusion in the carotid or vertebral arteries of the neck. No evidence for large vessel occlusion in the [place]. Electronically Signed: Yvonne Florian MD at 14:03 EST Reading Location ID and State: [facility] / [place] Tel , Service support , ADDENDUM: 09/26/23 1412 IMPRESSION: No evidence for significant stenosis or occlusion in the carotid or vertebral arteries of the neck. No evidence for large vessel occlusion in the [place]. N.B. : The above [...] to admission Charges/Coding Visit Charges Inpatient E&M: 51188 Init Hosp L2 09/26/23 1535 <Electronically signed by Mona Chery DO> Cosigner Signature (if applicable): CC: Dr. Mona Chery DO; Dr. Moon Rayo MD~ Signed [facility] Work Phone: 1(250) 281-416003-04-2024 Discharge summary Author Joshua Santiago [facility] September 26, 2023 2:32pm Note Date/Time September 26, 2023 1:37 pm [facility] Medical Records Department [address] [place] [address] Emergency Department Summary 09/26/23 MR#: [id number] Acct: [id number] Name: VANESSA HERNANDEZ Rep #:[id number] : 1945 78 From: Joshua Santiago MD PCP: Dr. Moon Rayo MD Status:REG ER Location: ED HPI History of Present Illness Chief Complaint: Stroke Alert Detail of Chief Complaint: Positive Essington score per EMS Informant: patient and EMS [...] 74.3 H Lymph % (Auto) 12.2 L Dawson % (Auto) 10.3 H Eos % (Auto) [...] 13:36 EST Reading Location ID and State: [facility] / [place] Tel , Service support , ADDENDUM: 09/26/23 [...] evidence for large vessel occlusion in the [place]. Electronically Signed: Yvonne Florian MD at 14:03 EST , ADDENDUM: 09/26/23 1412 IMPRESSION: No evidence for significant stenosis or occlusion in the carotid or vertebral arteries of the neck. No evidence for large vessel occlusion in the [place]. N.B. : The above Results were Read Back by Yvonne Florian MD to Joshua Santiago MD, and understanding confirmed on 09/26/2023 14:05:28 (ET). Electronically Signed: Yvonne Florian MD at 14:03 EST , EKG Initial EKG: Attestation: I personally reviewed and interpreted this EKG as follows: Interpretation: Sinus Rhythm (Rate is 74. Computer is reading A-fib whichis incorrect. TX interval is normal. Cures duration is 84 ms. QT duration 392ms. [place] is normal. There is artifact that the [...] (CVA), Herman-inattention Disposition Disposition: Acute Care Hospital [facility] What to do if you have Problems For any increased pain, shortness of breath, bleeding, nausea or vomiting, chestpain, or any unexpected problems, contact your Primary Care Provider. Call [facility] ([phone]) or report to the closest Emergency Room. [...] cc: Dr. Moon Rayo MD ~* Signed [facility] Work Phone: 1(191) 437-625503-04-2024 Discharge summary Author Joshua Santiago [facility] September 26, 2023 2:32pm Note Date/Time September 26, 2023 1:37 pm [facility] Medical Records Department [address] [place] [address] Emergency Department Summary 09/26/23 MR#: [id number] Acct: [id number] Name: VANESSA HERNANDEZ Rep #:[id number] : 1945 78 From: Joshua Santiago MD PCP: Dr. Moon Rayo MD Status:REG ER Location: ED HPI History of Present Illness Chief Complaint: Stroke Alert Detail of Chief Complaint: Positive Essington score per EMS Informant: patient and EMS [...] 74.3 H Lymph % (Auto) 12.2 L [place] % (Auto) 10.3 H Eos % (Auto) [...] evidence for large vessel occlusion in the [place]. Electronically Signed: Yvonne Florian MD at 14:03 EST , ADDENDUM: 09/26/23 1412 IMPRESSION: No evidence for significant stenosis or occlusion in the carotid or vertebral arteries of the neck. No evidence for large vessel occlusion in the [place]. N.B. : The above Results were Read Back by Yvonne Florian MD to Joshua Santiago MD, and understanding confirmed on 09/26/2023 14:05:28 (ET). Electronically Signed: Yvonne Florian MD at 14:03 EST , EKG Initial EKG: Attestation: I personally reviewed and interpreted this EKG as follows: Interpretation: Sinus Rhythm (Rate is 74. Computer is reading A-fib whichis incorrect. TX interval is normal. Cures duration is 84 ms. QT duration 392ms. [place] is normal. There is artifact that the [...] (CVA), Herman-inattention Disposition Disposition: Acute Care Hospital [facility] What to do if you have Problems For any increased pain, shortness of breath, bleeding, nausea or vomiting, chestpain, or any unexpected problems, contact your Primary Care Provider. Call [facility] ([phone]) or report to the closest Emergency Room. [...] cc: Dr. Moon Rayo MD ~* Signed [facility] Work Phone: 1(998) 195-937001-23-2024 Discharge summary Author Luis Miguel Freeman [facility] August 16, 2023 11:38am Note Date/Time August 16, 2023 1 1:38am [facility] Medical Records Department [address] [place] [address] Discharge Summary 08/16/23 1135 MR#: [id number] Acct: [id number] Name: VANESSA HERNANDEZ Rep #:[id number] : 1945 78 From: Luis Miguel Wesley PCP: Dr. Mono Rayo MD Status:ADM IN Location: [place] [address] Providers Date of Admission: 08/13/23 Date of [...] (Auto) 68.3, Lymph % (Auto) 17.2 L, Dawson % (Auto) 11.5 H, Eos % (Auto) [...] Best Instructions Additional Instructions / Restrictions: Advised fldt-sig-armxpcr probiotic, lactobacillus tablets, 1 tablet twice daily [...] Self Care Charges/Coding Visit Charges Inpatient E&M: 13181 Disch Hosp >30min 08/16/23 1138 <Electronically signed by Luis Miguel Freeman MD> Cosigner Signature (if applicable): CC: Dr. Moon Rayo MD; Dr. Luis Miguel Freeman MD~ Signed [facility] Work Phone: 1(538) 126-431801-23-2024 Discharge summary Author Luis Miguel Freeman [facility] August 16, 2023 11:35am Note Date/Time August 16, 2023 1 1:31am [facility] Medical Records Department [address] [place] [address] Instructions for Home/Discharge Instructions 08/16/23 1036 MR#: [id number] Acct: [id number] Name: VANESSA HERNANDEZ Rep #:[id number] : 1945 78 From: Luis Miguel Wesley [...] Best Instructions Additional Instructions / Restrictions: Advised hgqs-hpg-qoyrnjt probiotic, lactobacillus tablets, 1 tablet twice daily [...] MD; Dr. Dilia Best MD ~ Signed [facility] Work Phone: 1(547) 627-444601-22-2024 Progress note Author Luis Miguel Pete [facility] August 15, 2023 3:05pm Note Date/Time August 15, 2023 3 :05pm [facility] Medical Records Department [address] [place] [address] Progress Note - Hospitalist 08/15/23 1458 MR#: [id number] Acct: [id number] Name: VANESSA HERNANDEZ Rep #:[id number] : 1945 78 From: Luis Miguel Wesley PCP: Dr. Moon Rayo MD Status:ADM IN Location: [place] [address] Reason for Visit Reason for Visit: Diagnoses [...] % (Auto) 68.3, Lymph % (Auto)17.6 L, Dawson % (Auto) 10.9 H, Eos % (Auto) [...] mentioned above. Charges/Coding Visit Charges Inpatient E&M: 34622 Subs Hosp L2 08/15/23 7613 <Electronically signed by Luis Miguel Freeman MD> Cosigner Signature (if applicable): CC: ~ Signed [facility] Work Phone: 1(374) 556-176701-22-2024 Consult note Author Zeina Beavers [facility] August 15, 2023 2:13pm Note Date/Time August 15, 2023 2 :13pm [facility] Medical Records Department [address] [place] [address] Pharmacokinetic/Renal -Consult 08/15/23 1413 MR#: [id number] Acct: [id number] Name: VANESSA HERNANDEZ Rep #:[id number] : 1945 78 From: Zeina Beavers PCP: Dr. Moon Rayo MD Status:ADM [facility] has been consulted [...] Signature (if applicable): Date CC: ~ Signed [facility] Work Phone: 1(748) 342-644201-21-2024 Progress note Author Dilia Best [facility] August 14, 2023 2:59pm Note Date/Time August 14, 2023 7 :22am [facility] Medical Records Department [address] [place] [address] Progress Note - Hospitalist 08/14/23 0721 MR#: [id number] Acct: [id number] Name: VANESSA HERNANDEZ Rep #:[id number] : 1945 78 From: Dilai Best MD PCP: Dr. Moon Rayo MD Status:ADM [facility] Reason for Visit Reason for Visit: Diagnoses [...] (Auto) 77.3 H, Lymph % (Auto)9.8 L, Dawson % (Auto) 11.6 H, Eos % (Auto) [...] Sl. Cloudy, Urine pH 5.0, Ur Specific [place] 1.020, Urine Protein 30 H, Urine Glucose [...] % (Auto) 65.7, Lymph % (Auto) 19.8, Dawson % (Auto) 12.8 H, Eos % (Auto) [...] 21:53 EST Reading Location ID and State: [address] [place] [address] Tel , Service support , Physical Exam [...] documentation, 38minutes Charges/Coding Visit Charges Inpatient E&M: 02143 Subs Hosp L2 08/14/23 6453 <Electronically signed by Dilia Best MD> Cosigner Signature (if applicable): CC: ~ Signed [facility] Work Phone: 1(875) 744-383101-21-2024 History and physical note Author Felipe Cordoba [facility] August 14, 2023 5:37am Note Date/Time August 13, 2023 9 :28pm [facility] Medical Records Department [address] [place] [address] H&P Exam - Hospitalist 08/13/232125 MR#: [id number] Acct: [id number] Name: VANESSA HERNANDEZ Rep #:[id number] : 1945 78 From: Felipe Fry DO PCP: Dr. Moon Rayo MD Status:ADM IN Location: [facility] [place] HPI - General General Date of Admission: [...] injection in June 2023) who presents to [facility] ER complaining of right lower extremity [...] be greater than 48 hours. [facility] Medical History (Updated 08/14/23 @ 05:37 by [...] (Auto) 77.3 H, Lymph % (Auto)9.8 L, Dawson % (Auto) 11.6 H, Eos % (Auto) [...] Sl. Cloudy, Urine pH 5.0, Ur Specific [place] 1.020, Urine Protein 30 H, Urine Glucose [...] 55 minutes. Charges/Coding Visit Charges Inpatient E&M: 10944 Init Hosp L2 08/14/23 0537 <Electronically signed by Felipe Drew DO> Cosigner Signature (if applicable): CC: Dr. Felipe Drew DO; Dr. Moon Rayo MD~ Signed [facility] Work Phone: 1(935) 400-991301-21-2024 Consult note Author Felipe [facility] August 14, 2023 2:40am Note Date/Time August 14, 2023 2 :07am [facility] Medical Records Department [address] [place] [id number] Pharmacokinetic/Renal -Consult 08/14/23 0206 MR#: [id number] Acct: [id number] Name: VANESSA HERNANDEZ Rep #:[id number] : 1945 78 From: Sterling Chavis PCP: Dr. Moon Rayo MD Status:ADM IN Location: [address] Consult Antibiotic Management Pharmacy has been [...] Date Felipe Drew DO CC: ~ Signed [facility] Work Phone: 1(834) 343-177501-21-2024 Discharge summary Author Kelle Foster [facility] August 14, 2023 1:41am Note Date/Time August 13, 2023 7 :40pm [facility] Medical Records Department [address] [place] [address] Emergency Department Summary 08/13/23 MR#: [id number] Acct: [id number] Name: VANESSA HERNANDEZ Rep #:[id number] : 1945 78 From: Kelle Foster MD PCP: Dr. Moon Rayo MD Status:ADM RUBENS Location: [place] [address] HPI History of Present Illness Chief Complaint: [...] up and go to her recliner to [facility]. When she tried to get up she states her feet were swollen and too painful. She was not able to bear weight. She does live alone. [facility] Medical History (Updated 08/13/23 @ [...] 77.3 H Lymph % (Auto) 9.8 L Dawson % (Auto) 11.6 H Eos % (Auto) [...] Sl. Cloudy Urine pH 5.0 Ur Specific [place] 1.020 Urine Protein 30 H Urine Glucose [...] your Primary Care Provider. Call [facility] ([phone]) or report to the closest Emergency Room. Call 911 if necessary. 08/14/23 0141 <Electronically signed by Kelle Foster MD> Cosigner Signature (if applicable): CC: Dr. Moon Rayo MD ~ Signed [facility] Work Phone: 1(317) 415-165804-23-2021 NoteHNO ID: [id number] Author: Latonya Sol Service: ? Author Type: [...] Objective: Patient presents to clinic ambulating in [facility] Vasc: DP and PT pulses [...] to RTC in 3-4 months. Latonya Sol [facility]04-23-2021 NoteHNO ID: [id number] Author: Paty Harmon RN Service: ? Author Type: ? Type: Progress Notes Filed: 11/14/2020 2:54 PM Note Text: AMB ROOMING INTAKE FLOWSHEET DATA Risk Screening Do you have concerns about personal safety or safety in the home?: No Patient presents with: Left Foot - Established Patient, Nail Care Right Foot - Established [facility], [facility] NotePatient Outreach (COVAMN) VANESSA HERNANDEZ ([id number]) 1945 F Date Time Provider Department 09/16/20 [...] Fully Assessed Order(s):SARS-COVID VACCINE 1ST DOSE APPT [[id number]] Order #: [id number] FUTURE Prescriptions as of 09/16/2020 Sig: OMEPRAZOLE [...] Text Encounter Status:Closed by BEBETO, PRODUSER on 09/19/20[facility] Discharge summary Author Ronak Mejia [facility] April 27, 2023 6:03am Note Date/Time April 27, 2023 6: 04am [facility] Medical Records Department [address] [facility] [place] [address] Emergency Department Summary 04/27/23 MR#: [id number] Acct: [id number] Name: VANESSA HERNANDEZ Nitza Rep #:[id number] : 1945 77 From: Ronak Mejia DO [...] was brought to the hospital for evaluation. [facility] Medical History Abdominal pain Abdominal [...] [Rx Last Taken Unknown] walker (Ultra-Light Rollator [facility]) #1 ea 08/23/22 [Rx Last Taken Unknown] [...] 4:33 EDT Reading Location ID and State: [facility] / [place] Tel , Service support , [...] your Primary Care Provider. Call [facility] ([phone]) or report to the closest Emergency Room. Call 911 if necessary. 04/27/23 0603 <Electronically signed by Ronak Mejia DO> Cosigner Signature (if applicable): CC: Dr. Moon Rayo MD ~ Signed [facility] Work Phone: Discharge summary Author Dulce Maria Lance [facility] Note Date/Time January 28, 2025 11:22 am [facility] Physical Therapy [facility] [address] [place] [address] [address] [place] [address] / REHABILITATION SERVICES DISCHARGE SUMMARY MR#: [id number] Acct: [id number] Name: VANESSA HERNANDEZ Rep #: [id number] : 1945 79 From: Dulce Maria An [...] please feel free to call me at [phone]. Thank you for the referral of thispatient. Sincerely, JOHN Vernon Balance/Gait/Functional tests Balance/Special Test Scores Lower Extremity Functional Score: 44 Improvement % Improvement: 90 <Electronically signed by Dulce Maria LOPEZ> 01/28/25 0958 CC: Dr. Moon Rayo MD ~ Signed [facility] Work Phone: Evaluation + Plan note No data available for this section [facility] Evaluation note* Diagnosis Onset Date Resolution Status Vertigo acute Essential (primary) hypertension chronic Exertional dyspnea chronic Frequent falls chronic Neuropathy chronic Osteoarthritis chronic [facility] Work Phone: Evaluation noteNo assessment information available [facility] Work Phone: Evaluation note* Diagnosis Onset Date Resolution Status Fall from bed acute Essential (primary) hypertension chronic Frequent falls chronic GERD (gastroesophageal reflux disease) chronic Osteoarthritis chronic [facility] Work Phone: Evaluation note* Diagnosis Onset Date Resolution Status Swelling of left lower extremity acute Depression chronic Essential (primary) hypertension chronic Hyperlipidemia chronic Neuropathy chronic [facility] Work Phone: Evaluation note* Diagnosis Onset Date Resolution Status Swelling of left lower extremity acute Depression chronic Essential (primary) hypertension chronic Hyperlipidemia chronic Neuropathy chronic Gout acute Swelling of left lower extremity acute Essential (primary) hypertension chronic Exertional dyspnea chronic Frequent falls chronic GERD (gastroesophageal reflux disease) chronic Neuropathy chronic Osteoarthritis chronic Overactive bladder chronic [facility] Work Phone: Evaluation note* Diagnosis Onset Date Resolution Status Gout acute Swelling of left lower extremity acute Essential (primary) hypertension chronic Exertional dyspnea chronic Frequent falls chronic GERD (gastroesophageal reflux disease) chronic Neuropathy chronic Osteoarthritis chronic Overactive bladder chronic Cellulitis acute Unable to ambulate acute [facility] Work Phone: Evaluation note* Diagnosis Onset Date Resolution Status Gout acute Swelling of left lower extremity acute Essential (primary) hypertension chronic Exertional dyspnea chronic Frequent falls chronic GERD (gastroesophageal reflux disease) chronic Neuropathy chronic Osteoarthritis chronic Overactive bladder chronic Acute cystitis without hematuria acute Ambulatory dysfunction acute Cellulitis acute Generalized weakness acute Hypokalemia acute Unable to ambulate acute [facility] Work Phone: Evaluation note* Diagnosis Onset [...] acute Essential (primary) hypertension chronic Hyperlipidemia chronic [facility] Work Phone: Evaluation note* Diagnosis Onset [...] Gout acute Swelling of left wrist acute [facility] Work Phone: History and physical note Author Mona Chery [facility] September 26, 2023 3:35pm Note Date/Time September 26, 2023 3:35 pm [facility] Medical Records Department [address] [place] [address] H&P Exam - Hospitalist 09/26/23 1519 MR#: [id number] Acct: [id number] Name: VANESSA HERNANDEZ Rep #:[id number] : 1945 78 From: Mona Chery DO PCP: Dr. Moon Rayo MD Status:ADM IN Location: [facility] [id number] HPI - General General Date of Admission: 09/26/23 Date of Service: 09/26/23 Chief Complaint: Slurred speech HPI Narrative VANESSA HERNANDEZ, is a 78 F who presented to the emergency department at [facility] on 09/26/2023 with slurred speech. Patient [...] and neck was read as unremarkable however [facility] [...] ongoing aspirin Plavix after admission. [facility] Medical History (Updated 09/26/23 @ 15:26 by [...] History (Updated 09/26/23 @ 15:[address] Moan Chery DO) household members: none housing: apartment [...] (Auto) 74.3 H, Lymph % (Auto)12.2 L, Dawson % (Auto) 10.3 H, Eos % (Auto) [...] 13:36 EST Reading Location ID and State: [facility] / [place] Tel , Service support , ADDENDUM: 09/26/23 1354 IMPRESSION: No acute intracranial process identified. Chronic involutional and white matter changes. N.B. : The above Results were Read Back by Yvonne Florian MD to Joshua Santiago MD, and understanding confirmed on 09/26/2023 13:47:48 (ET). Electronically Signed: Yvonne Florian MD at 13:36 EST Reading Location ID and State: [facility] / [place] Tel , Service support , Head/Neck CTA 09/26/23 13:24 IMPRESSION: No evidence for significant stenosis or occlusion in the carotid or vertebral arteries of the neck. No evidence for large vessel occlusion in the [place]. Electronically Signed: Yvonne Folrian MD at 14:03 EST Reading Location ID and State: [facility] / [place] Tel , Service support , ADDENDUM: 09/26/23 1412 IMPRESSION: No evidence for significant stenosis or occlusion in the carotid or vertebral arteries of the neck. No evidence for large vessel occlusion in the [place]. N.B. : The above [...] to admission Charges/Coding Visit Charges Inpatient E&M: 46769 Init Hosp L2 09/26/23 1535 <Electronically signed by Mona Chery DO> Cosigner Signature (if applicable): CC: Dr. Mona Chery DO; Dr. Moon Rayo MD~ Signed [facility] Work Phone: Hospital Discharge instructions No data available for this section [facility] Hospital Discharge instructionsAmbulatory Orders* PT Referral Location: None Selected [facility] Work Phone: Proogtrx note No data available for this section [facility] Progrfjk note Author Moon Rayo [facility] Note Date/Time April 18, 2025 10:26am [facility] [address] [facility] [place] [address] OFFICE VISIT Date of Service: 04/18/25 MR#: [id number] Acct: [id number] Name: VANESSA HERNANDEZ Rep #: [id number] : 1945 Provider: Dr. Meseret Rayo MD Age/Sex: 79/F Location: [facility] Status: Signed Intake Vital Signs 02/21/25 [...] Reasons: Headaches Chief Complaint: Headaches, neck pain [employer] Forms Builder Required: No Accompanied by: Self Is patient [...] Suggest she trial chiropractic, Dr. Mckeon in Street. 30-minute visit. Clinical Quality Measures Falls Risk Screening/Assistive Devices Have you fallen in the past year?: No 04/22/25 0753 <Electronically signed by Moon oliveros MD> Date _ [facility]o [facility] Signature: Date (if applicable) CC: ~ [facility] Work Phone: Reason for referral (narrative)No reason for referral information availableWSt. [facility]'s [facility] Work Phone: Summary Purpose Family History No [...] December 14, 2021 2 :06pm Power of Build Manager No December 14, 2021 2:06pm Advance Directive Response Recorded Date/ Time Name of Medical Power of Build Manager ADRIENNE INTERIANOELISE July 13, 2022 7:06am Advance Directives Yes October 14 021 6:16am Living Will Yes July 13 7:06am Power of Build Manager Yes July 13, 2022 7:06am Advance Directive Response Recorded Date/ Time Advance Directives Yes October 14 021 7:16am Living Will Yes July 13 8:06am Power of Build Manager Yes July 13, 2022 8:06am Advance Directive Response Recorded Date/ Time Advance Directives Yes October 14 021 6:16am Living Will Yes David 20[address], 2 022 7:06am Power of Build Manager Yes July 13, 2022 7:06am Advance Directive Response Recorded Date/ Time Name of Medical Power of Build Manager Dulce Maria Schwab August 13, 2023 7:21pm Advance Directives Yes October 14, 021 6:16am Living Will Yes August 13 7:21pm Power of Build Manager Yes August 13, 2023 7:21pm Advance Directive Response Recorded Date/ Time Name of Medical Power of Build Manager Dulce Maria trent August 13, 2023 11:57pm Advance Directives Yes October 14, 021 6:16am Living Will Yes August 13 11:57pm Power of Build Manager Yes August 13, 2023 11:57pm Advance Directive Response Recorded Date/ Time Name of Medical Power of Build Manager Dulce Maria trent August 13, 2023 11:57pm Advance Directives Yes October 14, 6:16am Living Will No September 26, 2023 3:19pm Power of Build Manager No September 25 3:19pm Advance Directive Response Recorded Date/ Time Advance Directives Yes October 23 1:17pm Living Will No October 24, 2023 1:17pm Power of Build Manager No October 23 1:17pm Name of Medical Power of Build Manager Dulce Maria trent August 14, 2023 12:57am Advance Directive Response Recorded Date/ Time Name of Medical Power of Build Manager Dulce Maria trent August 14, 2023 12:57am Name of Medical Power of Build Manager DULCE MARIA MILAN--HERNAN JENSEN October 30, 2023 11:10pm Advance Directives Yes October 23 1:17pm Living Will Yes October 30, 2023 11:10pm Power of Build Manager Yes October 29 11:10pm Advance Directive Response Recorded Date/ Time Advance Directives Yes August 31, 2024 12:18pm Chief Complaint and Reason for Visit Chief Complaint headache, bowel issu es N/V/D Reason for Visit Vertigo Essential (primary) hypertension Exertional dyspnea Frequent falls Neuropathy Osteoarthritis Chief Complaint Amb Documentation FALL Chief Complaint Amb Documentation FALL [facility] FU Reason for Visit Fall from [...] RIGHT LOWER EXTREMITY CELLULITI AND ACUTE CYSTITIS [facility] Discharge FU CVA Reason for Visit Gout [...] RIGHT LOWER EXTREMITY CELLULITI AND ACUTE CYSTITIS [facility] Discharge FU CVA Cerebrovascular accident Cerebrovascular accident [...] RIGHT LOWER EXTREMITY CELLULITI AND ACUTE CYSTITIS [facility] Discharge FU CVA Cerebrovascular accident Cerebrovascular accident Cerebrovascular accident [facility] LABWORK ACUTE [facility] Discharge FU Lt Arm Swelling/Pain Reason for [...] accident Cerebrovascular accident LABWORK LABWORK ACUTE [facility] Discharge FU Lt Arm Swelling/Pain DIZZNESS [...] section and content) DATE CREATED AUTHOR 08/31/2021 [facility] DATE CREATED AUTHOR AUTHOR'S ORGANIZ ATION 10/29/[address] [facility] ([place]) DATE CREATED AUTHOR AUTHOR'S ORGANIZ ATION 05/27/2025 [facility] Goals (unrecognized section and content) Goals may [...] Dr. Moon Rayo MD Primary Care Provider, [facility] Provider Active Team Status: Active [...] BE BASED ON THE PRIMARY CLINICAL RECORDS. [employer] provides no warranty or guarantee of the accuracy or completeness of information in this document.
[2025-07-07 17:55] LABS: Troponin T High Sens 4 HR 9 ng/L (<=14)
--- NOTE | 2025-07-07 17:57 | HP.PCM.HOS_ITS ---
HPI - General General Date of Admission: 07/07/25 Date of Service: 07/07/25 Chief Complaint: Generalized weakness, uncontrolled hypertension HPI Narrative VANESSA KLINE, is a 80 F who presents to the emergency room at [facility] with complaints of uncontrolled hypertension and generalized weakness. Patient was recently diagnosed with dementia during her last hospitalization here a few days ago, I talked to the POA who is her daughter in [place] and she states that she feels the patient cannot live at home by herself anymore. Patient's blood pressure was noted to be elevated in the emergency room. Labs were obtained, hemoglobin was low at 11.1, chemistry profile was unremarkable and chest x-ray showed no focal consolidations. Patient will be patient observation status on [facility], she will be seen by PT and OT, I have elected to start her on Cardizem CD, during last admission she was diagnosed with unexplained tachycardia which was asymptomatic. FOR[facility]LY [facility] Medical History Ankylosing spondylitis Urinary tract infection Sinus tachycardia Subconjunctival hemorrhage Conjunctival hemorrhage of left eye Balance problem Urinary incontinence Right hip pain Microcytic anemia Anxiety Rheumatoid arthritis Non-smoker Migraines TIA (transient ischemic attack) Stroke/cerebrovascular accident Generalized weakness Hypokalemia Abdominal pain Asthma DDD (degenerative disc disease) Obesity Frequent falls Essential (primary) hypertension Overactive bladder Chronic back pain Insomnia Hyperlipidemia Depression Osteoarthritis of left knee Iron deficiency anemia Localized swelling of chest wall Confusion Dark stools Left-sided chest wall pain Vitamin D deficiency Vision problems Pneumonia Osteoarthritis Neuropathy IBS (irritable bowel syndrome) Chronic headaches GERD (gastroesophageal reflux disease) H/O emotional problems Chronic bronchitis Home Medications ?Medication ?Instructions ?Recorded ?Last Taken ?Type multivitamin with minerals 1 tab PO DAILY supplement 0 09/24/20 06/30/25 History sumatriptan succinate 6 mg/0.5 mL 6 mg (0.5 mL) subcut Q1-4H PRN 12/10/24 Unknown Rx subcutaneous pen injector (Imitrex migraine headache # 1 mL STATdose Pen) walker (Ultra-Light Rollator misc) #1 ea 01/07/25 Unkn own Rx atorvastatin 40 mg tablet 40 mg PO QHS cholesterol #90 tabs 04/03/25 06/30/25 Rx gabapentin 100 mg capsule 100 mg PO Q12H neuropathy #1 80 caps 04/03/25 06/30/25 Rx omeprazole 40 mg capsule,delayed 40 mg PO DAILY stomac h #90 caps 04/03/25 06/30/25 Rx release potassium chloride 20 mEq 20 meq PO QDAY supplement #9 0 tabs 04/03/25 06/30/25 Rx tablet,extended release(part/cryst) (Klor-Con M) ropinirole 0.5 mg tablet 0.5 mg PO QHS restless legs #90 04/03/25 06/30/25 Rx tabs sertraline 100 mg tablet 200 mg (2 x 100 mg) PO DAILY mood 04/03/25 06/30/25 Rx #180 tabs trazodone 50 mg tablet 25 mg (1/2 x 50 mg) PO DAILY PRN 05/20/25 Unknown Rx insomnia #30 tabs Gemtesa 75 mg tablet (vibegron) 75 mg PO QDAY bladder #90 tabs 05/24/25 06/30/25 Rx acetaminophen 325 mg tablet 650 mg (2 x 325 mg) PO Q6H PRN PRN 07/04/25 Unknown Rx Pain 1-10 Or Fever >100.7 #0 tabs aspirin 81 mg tablet,delayed 81 mg PO DAILY #1 TAB 06/18 Unknown Rx release memantine 5 mg tablet (Namenda) 5 mg PO BID #60 tabs 1 09/04/24 Unknown Rx Allergy/AdvReac Type Severity Reaction Status Date / Time adhesive tape Allergy Severe Area Sore Verified 07/07/25 09:43 cefpodoxime (From Vantin) Allergy Unknown Unknown Verified 07/07/25 09:43 codeine Allergy Unknown Unknown Verified 07/07/25 09:43 metronidazole (From Flagyl) Allergy Unknown Unknown Verified 07/01/25 18:07 sulfamethoxazole (From Allergy Unknown Unknown Verified 07/07/25 09:43 Bactrim) trimethoprim (From Bactrim) Allergy Unknown Unknown Verified 07/07/25 09:43 Sulfa (Sulfonamide Allergy Unknown Verified 07/07/25 09:43 Antibiotics) Family History Sister Anesthesia complication Breast cancer Hypertension Cancer Thyroid, rectal, kidney Thyroid disorder Diabetes Mother Arthritis Pancreatic cancer Depression Diabetes Father Colon cancer Hypertension CVA (cerebral vascular accident) Sister Cancer rectal/kidney/medullary Thyroid cancer Surgical History History of appendectomy History of left knee replacement History of left heart catheterization (10/14/20) 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 History of total right knee replacement History of gastric surgery History of hysterectomy History of Hx of breast reduction, elective History of back surgery History of hernia repair History of right knee joint replacement History of cholecystectomy Social History household members: none housing: apartment current occupational status: retired Smoking Status: Former smoker alcohol intake: never substance use type: does not use what type of physical activity do you participate in: none ROS ROS Narrative Complete review of systems was obtained from the patient due to her mild dementia, she does answer some questions appropriately however and knows why she came to the hospital. Review of Systems ROS Unobtainable: due to mental status Vital Signs Vital Signs Vital Signs: 07/07/25 09:43 07/07/25 10:50 07/07/25 11:13 Temperature 97.1 F L Temperature Source Temporal Pulse Rate 93 88 87 Respiratory Rate 16 16 Respiratory Effort Respiratory Depth Respiratory Pattern Blood Pressure 184/99 H 175/101 H 182/110 H Blood Pressure Mean 127 125 134 Blood Pressure Source Blood Pressure Position Blood Pressure Location Pulse Ox 100 99 98 Oxygen Delivery Method Room Air Room Air 07/07/25 12:28 07/07/25 13:31 07/07/25 14:01 Temperature 98.0 F 97.7 F L Temperature Source Oral Pulse Rate 87 85 86 Respiratory Rate 19 H 20 H 19 H Respiratory Effort Respiratory Depth Respiratory Pattern Blood Pressure 173/106 H 173/106 H 162/114 H Blood Pressure Mean 128 128 130 Blood Pressure Source Monitor Blood Pressure Position Semi-Fowlers Blood Pressure Location Left Forearm Pulse Ox 100 100 97 Oxygen Delivery Method Room Air Room Air 07/07/25 14:49 07/07/25 17:13 Temperature 98.7 F Temperature Source Oral Pulse Rate 90 Respiratory Rate 18 Respiratory Effort Normal Non-Labored Respiratory Depth Normal Respiratory Pattern Normal Blood Pressure 153/98 H Blood Pressure Mean 116 Blood Pressure Source Monitor Blood Pressure Position Sitting Blood Pressure Location Right Arm Pulse Ox 97 Oxygen Delivery Method Room Air Room Air Weight Weight: 107.7 kg Body Mass Index (BMI) 40.7 Physical Exam Const alert and no apparent distress Constitutional Narrative: Patient is mildly confused, she is not agitated, she has class III obesity General Appearance: cooperative, well kempt and well developed Orientation / Consciousness: awake, oriented to person and oriented to place HEENT normocephalic, head/scalp atraumatic, hearing grossly normal bilaterally and moist oral mucous membranes Eyes PERRL, EOMs intact bilaterally and conjunctivae normal Neck supple, no JVD, thyroid normal and no carotid bruits General: trachea midline Resp normal respiratory effort, no retractions, no use of accessory muscles and clear to auscultation bilaterally Auscultation: Negative for rales, rhonchi or wheezes Cardio regular rate, regular rhythm, S1 normal heart sound, S2 normal heart sound, no murmurs, no rub and no gallops GI normal to inspection, nondistended, normoactive bowel sounds, soft to palpation, non-tender and non-distended Extremity no clubbing, cyanosis or edema Skin no rashes or lesions noted General Skin Exam: no breakdown Neuro CN's II-XII intact bilaterally, moves all extremities, no focal motor deficits and no sensory deficits noted Sensorium / Orientation: awake, alert, oriented to person and oriented to place Speech: speech normal Psych affect normal Psych Narrative: Patient exhibits mild confusion Results Lab / Micro Data 07/07/25 10:35 07/07/25 10:35 Labs: Laboratory Results - last 24 hr 07/07/25 10:35: WBC 9.2, RBC 4.40, Hgb 11.1 L, Hct 37.7, MCV 85.7, MCH 25.2 L, M CHC 29.4 L, RDW Std Deviation 52.0 H, RDW Coeff of Karon 16.5 H, Plt Count 226, MPV 9.6, Immature Gran % (Auto) 0.700, Neut % (Auto) 62.5, Lymph % (Auto) 20.8, Scott % (Auto) 11.7 H, Eos % (Auto) 3.8, Baso % (Auto) 0.5, Absolute Neuts (auto) 5.7, Absolute Lymphs (auto) 1.91, Nucleated RBC % 0, Sodium 140, Potassium 4.5, Chloride 104, Carbon Dioxide 27.1, Anion Gap 9, BUN 19, Creatinine 0.69 L, Estim Creat Clear Calc 68.37, Est GFR (MDRD) Non-Af 88, BUN/Creatinine Ratio 27.8 H, G lucose 102 H, Calcium 9.3, Troponin T High Sens 9 D, NT pro BNP II 137 07/07/25 10:58: D-Dimer Quant (PE/DVT) 0.73 H* 07/07/25 12:30: Troponin T Hi Sens 2 Hr 9 07/07/25 17:22: Troponin T Hi Sens 4Hr 9 Micro: Microbiology 07/07/25 10:35 Mucosa - Nose SARS-CoV-2, Influenza & RSV (PCR) - Final Imaging Radiology Impression Chest X-Ray 07/07/25 10:45 IMPRESSION: No focal consolidations. Reading Location: [id number] Assessment & Plan Assessment/Plan (1) Uncontrolled hypertension: PLAN: Plan 1. Uncontrolled hypertension-patient will be placed in observation status on [facility] 3, she will be started on Cardizem CD, blood pressures will be monitored. #2 generalized weakness/debility secondary to multiple medical problems and dementia-PT and OT will see the patient, she will need to go to an extended care facility at least for short-term rehab services #3 hyperlipidemia-patient is on a statin #4 chronic depression-patient is on Zoloft #5 chronic headaches-believed to be migraine, I have elected to hold her triptan at this time, she will receive Tylenol for headache Total clinical time spent by myself addressing the patient's medical issues, reviewing all of her data, and collaborating with patient's care team: 55 minutes Charges/Coding Visit Charges Inpatient E&M: 48165 Init Hosp L2
[2025-07-07] MEDS: Heparin Injection (Vial) 5,000 UNIT/ML VIAL 5000 UNIT SC (21:13)
[2025-07-07] MEDS: Memantine Hydrochloride 5 MG Tablet PO (21:13)
--- NOTE | 2025-07-08 00:34 | NURSING ---
dtr senait called and requested update on pt. she requested that the patients attending physician call her tomorrow 07/09. she also requested that her sister be removed from the patients' contact list. i advised her that the patient would need to make that request since she is aox3 and able to make her own decisions.
[2025-07-08 02:45] VITALS: BP 151/78; PULSE 101; RESP 18; TEMP 36.9; O2SAT 96
[2025-07-08] MEDS: Aspirin E.C. 81 MG Tablet PO (08:48)
[2025-07-08] MEDS: Potassium Chloride Oral Tablet 20 MEQ PO (08:49)
[2025-07-08] MEDS: Memantine Hydrochloride 5 MG Tablet PO ×2 (08:50→21:41)
[2025-07-08] MEDS: Heparin Injection (Vial) 5,000 UNIT/ML VIAL 5000 UNIT SC ×2 (08:50→21:41)
[2025-07-08 09:00] VITALS: BP 137/103; PULSE 111; RESP 18; TEMP 36.8; O2SAT 97
--- NOTE | 2025-07-08 10:38 | PN_ITS ---
Subjective Subjective Patient seen and examined with her nurse by her bedside. She had no active complaint. She had just worked with therapy. She was brought in on account of markedly elevated blood pressure. Review of systems otherwise negative. Blood pressure still remains elevated but is improving. Objective Data Objective Data Vital Signs: Vital Signs Temp Pulse Resp BP Pulse Ox O2 Del Method 98.5 F 101 H 18 151/78 H 96 Room Air 07/08/25 02:45 07/08/25 02:45 07/08/25 02:45 07/08/25 02:45 07/08/25 02:45 07/07/25 20:46 Oxygen Delivery Method Room Air Weight: 237 lb 7 oz Body Mass Index (BMI) 40.7 Lab / Micro Data 07/07/25 10:35 07/07/25 10:35 Labs: Laboratory Results - last 24 hr 07/07/25 10:35: WBC 9.2, RBC 4.40, Hgb 11.1 L, Hct 37.7, MCV 85.7, MCH 25.2 L, M CHC 29.4 L, RDW Std Deviation 52.0 H, RDW Coeff of Karon 16.5 H, Plt Count 226, MPV 9.6, Immature Gran % (Auto) 0.700, Neut % (Auto) 62.5, Lymph % (Auto) 20.8, Mayes % (Auto) 11.7 H, Eos % (Auto) 3.8, Baso % (Auto) 0.5, Absolute Neuts (auto) 5.7, Absolute Lymphs (auto) 1.91, Nucleated RBC % 0, Sodium 140, Potassium 4.5, Chloride 104, Carbon Dioxide 27.1, Anion Gap 9, BUN 19, Creatinine 0.69 L, Estim Creat Clear Calc 68.37, Est GFR (MDRD) Non-Af 88, BUN/Creatinine Ratio 27.8 H, G lucose 102 H, Calcium 9.3, Troponin T High Sens 9 D, NT pro BNP II 137 07/07/25 10:58: D-Dimer Quant (PE/DVT) 0.73 H* 07/07/25 12:30: Troponin T Hi Sens 2 Hr 9 07/07/25 17:22: Troponin T Hi Sens 4Hr 9 Micro: Microbiology 07/07/25 10:35 Mucosa - Nose SARS-CoV-2, Influenza & RSV (PCR) - Final Radiography Diagnostic Testing: Radiology Impression Chest X-Ray 07/07/25 10:45 IMPRESSION: No focal consolidations. Reading Location: [facility] Physical Exam Const alert, oriented x3 and no apparent distress Constitutional Narrative: Class III obesity General Appearance: cooperative HEENT normocephalic, head/scalp atraumatic, moist oral mucous membranes and oropharynx normal Eyes EOMs intact bilaterally Neck supple and no JVD Lymph Lymphatic: no lymphedema noted Resp normal respiratory effort, normal air movement and clear to auscultation bilaterally Cardio regular rate, regular rhythm, S1 normal heart sound, S2 normal heart sound and no murmurs GI normal to inspection, nondistended, normoactive bowel sounds, soft to palpation and non-tender Extremity normal capillary refill and no clubbing, cyanosis or edema General Extremity: no tenderness to palpation of joints or extremities Skin General Skin Exam: no breakdown Neuro no focal motor deficits and no sensory deficits noted Motor Exam: general weakness Psych thought process normal, cooperative and affect normal Appearance: appropriate Assessment & Plan Assessment/Plan (1) Uncontrolled hypertension: PLAN: Plan #Benign essential hypertension * Poorly controlled. Was admitted with a complaint of markedly elevated blood pressure. Blood pressure in the 170s systolic. * She was started on p.o. Cardizem. * IV hydralazine as needed. Adjust medications as needed based on the heart rate. * #Debility and weakness: Patient recently diagnosed with dementia. PT OT on board. May benefit from placement. She did work with therapy today and did quite well. #Hyperlipidemia: On statin #Depression: On Zoloft #Chronic headaches: on triptam prn. #Dementia: on memantine #Restless leg syndrome: on pramipexole DVT prophylaxis: heparin Disposition: will benefit from placement. Charges/Coding Visit Charges Inpatient E&M: 74732 Subs Hosp L2
--- NOTE | 2025-07-08 13:07 | CASEMGMT ---
Social Work- SW met with pt to discuss discharge plans. Pt is adamant that she not go to SNF. Pt is receptive to [facility]; pt feels it would be nice for socialization and transportation. Pt reports she needs to go through her belongings and get things settled before going to [facility]. Pt reports she would like [facility] as provider. SW explained the parameters of [facility] for hours and services offered. Pt is agreeable. Pt denies that her friends that assist are having a hard time meeting care needs. Pt reports when her blood pressure is lower, she will feel better and need less assistance.Pt denies any concerns regarding safety heading home. Pt denies a decline in memory recently. Pt was forgetful in conversation; being unable to remember the name of the latter-day that she most recently attended, just recalling it is a [employer]ism denomination. SW called pt dtr Dulce Maria who shared that she was very upset that a SNF was suggested to pt by hospitalist yesterday. Dulce Maria reports that pt called her, panicked. Dulce Maria shared that she does not feel pt needs SNF and reports that she did not have blood pressure medication to take and, therefore, could not lower blood pressure on her own. Dulce Maria shared that she would like to discuss the situation with patient advocate; SW collaborated with SW supervisor carbon electrodes to escalate concern. Dulce Maria had questions regarding hospital coverage financially by insurance and about open enrollment period and types of coverage. SW provided OSHIP information and offered education on traditional MCR vs commercial plans and MCR guidelines regarding OBS vs inpatient. Dulce Maria agreeable to [facility] at d/c and would like to be notified when pt is d/c. GLENN called Qi at [facility]. A new order will be needed. GLENN remains available to follow. ALEXANDRA Gonzalez
[2025-07-08 15:00] VITALS: BP 119/62; PULSE 82; PULSE 86; RESP 18; TEMP 36.5; O2SAT 97
--- NOTE | 2025-07-08 16:07 | CASEMGMT ---
BEATTY Met with patient to complete BEATTY form. BEATTY form and its content were verbally explained and patient's questions were answered to the best of my ability.? Patient voiced understanding and signed BEATTY form.? Patient provided a copy of signed BEATTY form and original placed in patient's chart.? Patient had no further questions. Winsome Lyon, Discharge Planning Asst
[2025-07-08 20:12] VITALS: BP 136/71; PULSE 80; RESP 19; TEMP 36.2; O2SAT 96
[2025-07-09] VITALS (8 sets, daily range): BP systolic 124–158; BP diastolic 67–93; PULSE 77–101; RESP 16–18; TEMP 36.5–36.8; O2SAT 93–96
[2025-07-09 05:44] LABS: Hematocrit 37.5 % (37-47); Hemoglobin 11.4 g/dL (12.0-15.0); Immature Granulocytes Count 0.040 X10^3/uL (0.0-0.0); Mean Corp Hgb Conc 30.4 g/dL (32-36); Mean Corpuscular Volume 84.3 fL (81-99); Mean Platelet Vol. 9.6 fl (6.2-12.0); NRBC Flagged by Analyzer 0 % (0-5); Platelet Count 258 K/mm3 (150-450); RBC Distribution Width CV 16.5 % (11.6-14.6); RBC Distribution Width SD 51.5 fl (35.1-43.9); Red Blood Count 4.45 M/mm3 (4.2-5.4); White Blood Count 9.5 K/mm3 (4.4-11.0)
[2025-07-09 06:10] LABS: Anion Gap 10 (5-15); BUN 17 mg/dL (4-19); BUN/Creat Ratio 25.0 RATIO (10-20); Calcium,Total 9.1 mg/dL (7.6-11.0); Carbon Dioxide 24.9 mmol/L (21.0-32.0); Chloride 103 mmol/L (98-108); Estimated Creatinine Clearance 67.20 ml/min (50-250); Glucose 100 mg/dL (70-99); Potassium 4.3 mmol/L (3.3-5.1)
[2025-07-09] MEDS: Aspirin E.C. 81 MG Tablet PO (08:57)
[2025-07-09] MEDS: Potassium Chloride Oral Tablet 20 MEQ PO (08:57)
[2025-07-09] MEDS: Memantine Hydrochloride 5 MG Tablet PO (08:58)
[2025-07-09] MEDS: Heparin Injection (Vial) 5,000 UNIT/ML VIAL 5000 UNIT SC (08:58)
--- NOTE | 2025-07-09 11:32 | CASEMGMT ---
Addendum entered by Coni Rooney 07/09/25 12:25: Social Work SW did let pt know that she will be discharged today, pt glad to be going home. She does think one of her friends can give her a ride home, either [place]([phone]) or Lacy Clark([phone]). Once pt is d/c, pt is to call her friends to see who can give her a ride home. EVANS Burr Addendum entered by Coni Rooney 07/09/25 12:07: Social Work Qi from [facility] let SW know that pt actually will have start of care on . SW called [facility], message left for Bernard letting her know pt had been admitted again but will be returning home today. GLENN called daughter to let her know pt is going home today. Daughter asked to speak w/the physician, message passed on the the physician. EVANS Burr Original Note: Social Work As per physician, pt will be d/c today. GLENN notified Qi in [facility], they will start care tomorrow. EVANS Burr
--- NOTE | 2025-07-09 14:47 | DS.PCM_ITS ---
Providers Date of Admission: 07/07/25 Date of Discharge: 07/09/25 Primary Care Physician: Dr. Katiana Rayo MD Reason For Visit: HYPERTENSION, DEBILITY Diagnosis Discharge Diagnosis (1) Uncontrolled hypertension: Status: Acute Code(s): I10 - Essential (primary) hypertension Plan #Benign essential hypertension * Poorly controlled. Was admitted with a complaint of markedly elevated blood pressure. Blood pressure in the 170s systolic. * She was started on p.o. Cardizem. * IV hydralazine as needed. Adjust medications as needed based on the heart rate. * #Debility and weakness: Patient recently diagnosed with dementia. PT OT on board. May benefit from placement. She did work with therapy today and did quite well. #Hyperlipidemia: On statin #Depression: On Zoloft #Chronic headaches: on triptam prn. #Dementia: on memantine #Restless leg syndrome: on pramipexole DVT prophylaxis: heparin Disposition: will benefit from placement. Medications at Discharge Home Medications multivitamin with minerals 1 tab PO DAILY supplement 09/24/20 sumatriptan succinate 6 mg/0.5 mL subcutaneous pen injector (Imitrex STATdose Pen) 6 mg (0.5 mL) subcut Q1-4H PRN migraine headache #1 mL 12/10/24 walker (Ultra-Light Rollator misc) #1 ea 01/07/25 atorvastatin 40 mg tablet 40 mg PO QHS cholesterol #90 tabs 04/03/25 gabapentin 100 mg capsule 100 mg PO Q12H neuropathy #180 caps 04/03/25 omeprazole 40 mg capsule,delayed release 40 mg PO DAILY stomach #90 caps 04/03/25 potassium chloride 20 mEq tablet,extended release(part/cryst) (Klor-Con M) 20 meq PO QDAY supplement #90 tabs 04/03/25 ropinirole 0.5 mg tablet 0.5 mg PO QHS restless legs #90 tabs 04/03/25 sertraline 100 mg tablet 200 mg (2 x 100 mg) PO DAILY mood #180 tabs 04/03/25 trazodone 50 mg tablet 25 mg (1/2 x 50 mg) PO DAILY PRN insomnia #30 tabs 05/20/25 Gemtesa 75 mg tablet (vibegron) 75 mg PO QDAY bladder #90 tabs 05/24/25 acetaminophen 325 mg tablet 650 mg (2 x 325 mg) PO Q6H PRN PRN Pain 1-10 Or Fever >100.7 #0 tabs 07/04/25 aspirin 81 mg tablet,delayed release 81 mg PO DAILY #1 TAB 07/04/25 memantine 5 mg tablet (Namenda) 5 mg PO BID #60 tabs 07/04/25 amlodipine 10 mg tablet 10 mg PO DAILY #30 tabs 07/09/25 metoprolol succinate 50 mg tablet,extended release 24 hr 50 mg PO DAILY #30 tabs 07/09/25 Hospital Course Operations None Procedures 2-D Echocardiogram Summary of Care Provided Minutes Spent on Discharge: 45 Hospital Course: Avril Hernandez is an 80 year old female with a past medical history as outlined who was admitted to the ED on 07/07/2025 with complaint of poorly controlled hypertension and generalized weakness. She had recently been seen in the hospital and she was diagnosed with dementia. Patient lives at home by herself. On admission this time blood pressure was noted to be markedly elevated so she was admitted to be managed for poorly controlled hypertension. She was also tachycardic. She was started on p.o. Cardizem. Her blood pressure did improve and she felt much better. She worked with physical therapy and did very well. Patient declined to go to any facility and opted to go home. She was discharged home on 07/09/2025 on PO amlodipine 10mg daily and PO metoprolol XL 50mg daily. She is to keep a blood pressure log at home and check her blood pressure every morning and evening and present to her PCP for adjustment of medications as needed. Her daughter Dulce Maria Garcia ([phone]) updated by phone prior to patient's discharge. Of note she had a 2D echo done on 07/01/2025 during her previous admission which showed EF of 54% with no regional wall motion abnormalities and normal diastolic function and no hemodynamically significant valvular disease. Patient seen and examined. She felt well and had no active complaints. She had an uneventful night. Review of systems otherwise negative. Labs and vitals reviewed. Medication reviewed and reconciled. Physical Exam Const alert, oriented x3 and no apparent distress Constitutional Narrative: Class III obesity General Appearance: cooperative, well kempt and well developed Orientation / Consciousness: awake HEENT normocephalic, head/scalp atraumatic, hearing grossly normal bilaterally, moist oral mucous membranes and oropharynx normal Eyes PERRL, EOMs intact bilaterally and conjunctivae normal Neck supple, no JVD and no carotid bruits General: trachea midline Lymph Lymphatic: no lymphedema noted Resp normal respiratory effort, normal air movement, no retractions, no use of accessory muscles and clear to auscultation bilaterally Auscultation: Negative for rales, rhonchi or wheezes Cardio regular rate, regular rhythm, S1 normal heart sound, S2 normal heart sound and no murmurs GI normal to inspection, nondistended, normoactive bowel sounds, soft to palpation, non-tender and non-distended Extremity normal to inspection, full ROM, normal capillary refill and no clubbing, cyanosis or edema General Extremity: no tenderness to palpation of joints or extremities Skin no rashes or lesions noted General Skin Exam: no breakdown Neuro oriented x3, CN's II-XII intact bilaterally, moves all extremities and no focal motor deficits Sensorium / Orientation: awake, alert, oriented to person and oriented to place Speech: speech normal Motor Exam: general weakness Psych thought process normal, cooperative and affect normal Psych Narrative: Patient exhibits mild confusion Appearance: appropriate Weight / BMI Weight Weight: 237 lb 7 oz Body Mass Index (BMI) 40.7 ABG / Lab / Microbiology Data 07/09/25 05:28 07/09/25 05:28 Laboratory: Laboratory Results - last 24 hr 07/09/25 05:28: WBC 9.5, RBC 4.45, Hgb 11.4 L, Hct 37.5, MCV 84.3, MCH 25.6 L, M CHC 30.4 L, RDW Std Deviation 51.5 H, RDW Coeff of Karon 16.5 H, Plt Count 258, MPV 9.6, Immature Gran % (Auto) 0.400, Neut % (Auto) 60.2, Lymph % (Auto) 26.5, Spencer % (Auto) 9.3, Eos % (Auto) 3.3, Baso % (Auto) 0.3, Absolute Neuts (auto) 5.7, Absolute Lymphs (auto) 2.51, Nucleated RBC % 0, Sodium 138, Potassium 4.3, Chloride 103, Carbon Dioxide 24.9, Anion Gap 10, BUN 17, Creatinine 0.66 L, Estim Creat Clear Calc 67.20, Est GFR (MDRD) Non-Af 89, BUN/Creatinine Ratio 25.0 H, Glucose 100 H, Calcium 9.1 Microbiology: Microbiology 07/07/25 10:35 Mucosa - Nose SARS-CoV-2, Influenza & RSV (PCR) - Final D/C Instructions Discharge Activity: Return to Normal Activity Weight Bearing Status: Weight bearing as tolerated Call your doctor if you observe: Fever of 101 or Higher, Shortness of breath, Dizziness, Swelling in the ankles and Chest pain DC O2, CPAP, BIPAP Needs Home O2 Discharge instructions: No DC home with Oxygen: No Meaningful Use Info Meaningful Use Meaningful Use Diagnoses (Choose all that apply): None applicable Discharge Plan Admission Admit Date/Time: 07/07/25 13:16 Primary Reason for Your Visit: hypertension Attending Provider: Gretel Kothrai Primary Care Provider: Katiana Rayo Consulting Providers: Joshua Woods Instructions Patient Instructions: Controlling High Blood Pressure Additional Instructions / Restrictions: check BP at home every morning and evening and keep a log of it. present to your PCP to adjust BP meds as needed. Discharge Orders/Prescriptions Prescriptions: New metoprolol succinate 50 mg tablet extended release 24 hr 50 mg PO DAILY Qty: 30 2RF amlodipine 10 mg tablet 10 mg PO DAILY Qty: 30 2RF Continued multivitamin with minerals 1 EACH tablet 1 tab PO DAILY acetaminophen 325 mg Tablet 650 mg PO Q6H PRN PRN (Reason: Pain 1-10 Or Fever >100.7) Qty: 0 0RF memantine [Namenda] 5 mg tablet 5 mg PO BID Qty: 60 0RF aspirin 81 mg tablet,delayed release (DR/EC) 81 mg PO DAILY Qty: 1 0RF sumatriptan succinate [Imitrex STATdose Pen] 6 mg/0.5 mL pen injector 6 mg subcut Q1-4H PRN (Reason: migraine headache) Qty: 1 2RF Rx Instructions: do not exceed 2 doses in a 24 hour period (DME) Ultra-Light Rollator Misc See Rx Instructions .Route Qty: 1 0RF Rx Instructions: As directed atorvastatin 40 mg tablet 40 mg PO QHS Qty: 90 3RF gabapentin 100 mg capsule 100 mg PO Q12H Qty: 180 3RF omeprazole 40 mg capsule,delayed release(DR/EC) 40 mg PO DAILY Qty: 90 3RF potassium chloride [Klor-Con M20] 20 mEq tablet,ER particles/crystals 20 meq PO QDAY Qty: 90 3RF ropinirole 0.5 mg tablet 0.5 mg PO QHS Qty: 90 3RF Rx Instructions: administer 1-3 hours before bedtime sertraline 100 mg tablet 200 mg PO DAILY Qty: 180 3RF Rx Instructions: 200 mg PO daily; trazodone 50 mg tablet 25 mg PO DAILY PRN (Reason: insomnia) Qty: 30 0RF Gemtesa 75 mg tablet 75 mg PO QDAY Qty: 90 0RF Referrals / Follow Up: Katiana Rayo MD [Primary Care Provider, Internal Medicine - [facility]] - Within 1 Week Disposition Disposition (needs filled in before D/C Order can be placed): Home Health Service Charges/Coding Visit Charges Inpatient E&M: 36969 Disch Hosp >30min
--- NOTE | 2025-07-09 15:21 | PHA.DC.MC.R ---
Pharmacy [facility] Counseling Pharmacy Service has performed discharge medication reconciliation and counseling for this patient. Patient requested for medications to be transferred from [facility] to [facility] retail and then delivered to bedside. This [facility] called retail, spoke to Lali to request transfer and delivery. 1. AMLODIPINE 10MG PO DAILY 2. METOPROLOL SUCCINATE 50MG PO DAILY The patient's discharge medication list was reviewed for discrepancies and discrepancies were resolved. The patient was counseled on the following discharge medications and changes in medications for homegoing were reviewed. The Reason for Use, instructions for use, and potential side effects were reviewed for all new medications. The patient's questions regarding all of their medications were answered. The patient was able to verbally demonstrate an understanding of their discharge medications. Medications at Discharge Home Medications multivitamin with minerals 1 tab PO DAILY supplement 09/24/20 sumatriptan succinate 6 mg/0.5 mL subcutaneous pen injector (Imitrex STATdose Pen) 6 mg (0.5 mL) subcut Q1-4H PRN migraine headache #1 mL 12/10/24 walker (Ultra-Light Rollator misc) #1 ea 01/07/25 atorvastatin 40 mg tablet 40 mg PO QHS cholesterol #90 tabs 04/03/25 gabapentin 100 mg capsule 100 mg PO Q12H neuropathy #180 caps 04/03/25 omeprazole 40 mg capsule,delayed release 40 mg PO DAILY stomach #90 caps 04/03/25 potassium chloride 20 mEq tablet,extended release(part/cryst) (Klor-Con M) 20 meq PO QDAY supplement #90 tabs 04/03/25 ropinirole 0.5 mg tablet 0.5 mg PO QHS restless legs #90 tabs 04/03/25 sertraline 100 mg tablet 200 mg (2 x 100 mg) PO DAILY mood #180 tabs 04/03/25 trazodone 50 mg tablet 25 mg (1/2 x 50 mg) PO DAILY PRN insomnia #30 tabs 05/20/25 Gemtesa 75 mg tablet (vibegron) 75 mg PO QDAY bladder #90 tabs 05/24/25 acetaminophen 325 mg tablet 650 mg (2 x 325 mg) PO Q6H PRN PRN Pain 1-10 Or Fever >100.7 #0 tabs 07/04/25 aspirin 81 mg tablet,delayed release 81 mg PO DAILY #1 TAB 07/04/25 memantine 5 mg tablet (Namenda) 5 mg PO BID #60 tabs 07/04/25 amlodipine 10 mg tablet 10 mg PO DAILY #30 tabs 07/09/25 metoprolol succinate 50 mg tablet,extended release 24 hr 50 mg PO DAILY #30 tabs 07/09/25
== END 2025-07-09 17:27 | disposition home health service (06) ==
LOC: ED 13:16 → MS3 13:42
PROVIDERS: Admitting Provider Internal Medicine; Emergency Provider Student in an Organized Health Care Education/Training Program; PCP Internal Medicine; Visit Provider Student in an Organized Health Care Education/Training Program
DX: I10 Essential (primary) hypertension (principal); F03.90 Unspecified dementia, unspecified severity, without behavioral disturbance, psychotic disturbance, mood disturbance, and anxiety; J42 Unspecified chronic bronchitis; E66.813 Obesity, class 3; Z68.41 Body mass index [BMI] 40.0-44.9, adult; R53.81 Other malaise; K21.9 Gastro-esophageal reflux disease without esophagitis; R53.1 Weakness; G47.00 Insomnia, unspecified; E78.5 Hyperlipidemia, unspecified; Z79.899 Other long term (current) drug therapy; Z87.891 Personal history of nicotine dependence; Z79.82 Long term (current) use of aspirin; R06.02 Shortness of breath; F32.A Depression, unspecified; G43.909 Migraine, unspecified, not intractable, without status migrainosus; J45.909 Unspecified asthma, uncomplicated; G25.81 Restless legs syndrome
CPT/HCPCS: 36415; 71046; 80048; 83880; 84484; 85025; 85379; 87631; 93005; 96372; 97161; 97165; 99221; 99285; A4216; G0378

== ENCOUNTER 2025-07-11 08:25 | Observation (INO) | payer MEDICARE, MEDICAID, SELFPAY ==
[2025-07-11] VITALS (17 sets, daily range): BP systolic 115–181; BP diastolic 59–109; PULSE 70–106; RESP 15–20; TEMP 36.1–36.6; O2SAT 92–998; BMI 47.3; BMI 42.0
--- NOTE | 2025-07-11 08:50 | RAD_ITS ---
PROCEDURE: CHEST PA AND LATERAL 07/11/2025 REASON FOR EXAM: FALL TECHNIQUE: Procedure Code: RADCXR Modality: DX Procedure: CHEST PA AND LATERAL COMPARISON: July 07, 2025. FINDINGS: Hardware: Spinal cord stimulator device seen. EKG electrodes are present. Heart: Heart size is upper limits of normal. Mediastinum: Calcification and tortuosity of the descending thoracic aorta. Lungs: Lungs are clear. Bones: Degenerative changes are identified within the thoracic spine. Osteoarthritis of both shoulders. RAD/Chest PA and Lateral IMPRESSION: Stable examination. No acute abnormality is seen. Reading Location: [id number]
--- NOTE | 2025-07-11 08:51 | EKG12_ITS ---
Test Reason : FALL Blood Pressure : */* mmHG Vent. Rate : 67 BPM Atrial Rate : 67 BPM P-R Int : 184 ms QRS Dur : 88 ms QT Int : 410 ms P-R-T Axes : 55 31 56 degrees QTcB Int : 433 ms Normal sinus rhythm with sinus arrhythmia Normal ECG Confirmed by Sea Musa ([id number]), film editor supervisor JODI SANTILLAN ([id number]) on 07/12/2025 10:34:32 AM Referred By: Confirmed By: Sea Musa
--- NOTE | 2025-07-11 08:52 | CT_ITS ---
PROCEDURE: SPINE CERVICAL WITHOUT CONTRAS 07/11/2025 REASON FOR EXAM: TRAUMA TECHNIQUE: Procedure Code: CTSPC Modality: CT Procedure: SPINE CERVICAL WITHOUT CONTRAS Coronal and Sagittal reconstruction series were provided. One or more dose reduction techniques were used (e.g., Automated exposure control, adjustment of the mA and/or kV according to patient size, use of iterative reconstruction technique. RADIATION DOSE SUMMARY: CTDlvol: 45.0 mGy DLP: 2102.4 mGycm COMPARISON: 08/26/2024 FINDINGS: Alignment: Mild reversal of the cervical lordosis is stable. Grade 1 anterolisthesis of C3 on C4. Vertebrae: No evidence of acute compression fracture deformity. There is no prevertebral soft tissue swelling. Retropharyngeal course of bilateral carotid arteries. Other: Ascending aorta measures up to 3.8 cm in diameter. C1-2: Within normal limits C2-3: Mild uncovertebral hypertrophy, right greater than left facet arthropathy. Spinal canal is patent. Left neural foramen is patent. Moderate to severe right neural foraminal narrowing.. C3-4: Uncovertebral hypertrophy and right greater than left facet arthropathy. No significant spinal canal narrowing. Left neural foramen is patent. [id number] narrowing of right neural foramen. C4-5: Bilateral uncovertebral hypertrophy, facet arthropathy. Mild spinal canal narrowing. Mild to moderate narrowing of left neural foramen. Mild right neural foraminal narrowing. C5-6: Bilateral uncovertebral hypertrophy, facet arthropathy. Moderate spinal canal narrowing. Moderate neural foraminal narrowing bilaterally. C6-7: Bilateral uncovertebral hypertrophy, mild facet arthropathy. Mild spinal canal narrowing. Moderate to severe narrowing of left neural foramen. Moderate right neural foraminal narrowing. C7-T1: No significant bony hypertrophy. Spinal canal is patent. The neural foramina are patent bilaterally. CT/Spine Cervical without Contras IMPRESSION: 1. No acute fracture or subluxation in the cervical spine. 2. Degenerative changes in the cervical spine are not significantly changed fro m prior exam. Reading Location: [facility]
--- NOTE | 2025-07-11 08:52 | CT_ITS ---
PROCEDURE: BRAIN/HEAD WITHOUT CONTRAST 07/11/2025 REASON FOR EXAM: TRAUMA Right facial trauma. TECHNIQUE: Procedure Code: CTBR Modality: CT Procedure: BRAIN/HEAD WITHOUT CONTRAST Coronal and Sagittal reconstruction series were provided. One or more dose reduction techniques were used (e.g., Automated exposure control, adjustment of the mA and/or kV according to patient size, use of iterative reconstruction technique. RADIATION DOSE SUMMARY: CTDlvol: 44.99 mGy DLP: 829.85 mGycm COMPARISON: July 11 2025. FINDINGS: Brain: Low density in the periventricular white matter suggests mild chronic small vessel ischemic changes. CSF Spaces: Mild generalized cerebral atrophy Sinuses/Mastoids: Mucosal thickening along the medial wall of the right maxillary sinus. Bones: Small osteoma seen in the medial right frontal bone. Soft tissue hematoma with small air collection overlying the right maxillary and right zygomatic region. CT/Brain/Head without Contrast IMPRESSION: CHRONIC CHANGES. NO ACUTE FINDINGS. Hematoma overlying the right zygomatic and right maxillary region with the lace ration. Reading Location: [id number]
--- NOTE | 2025-07-11 08:53 | CT_ITS ---
PROCEDURE: SINUS/FACIAL BONE 07/11/2025 REASON FOR EXAM: FALL Hematoma overlying the right orbit. TECHNIQUE: Procedure Code: CTSI Modality: CT Procedure: SINUS/FACIAL BONE Coronal and Sagittal reconstruction series were provided. One or more dose reduction techniques were used (e.g., Automated exposure control, adjustment of the mA and/or kV according to patient size, use of iterative reconstruction technique). RADIATION DOSE SUMMARY: CTDlvol: 32.17 mGy DLP: 725.07 mGycm COMPARISON: None FINDINGS: Frontal: Unremarkable Ethmoid: Unremarkable Sphenoid: Unremarkable Maxillary: Minimal mucosal thickening along the medial aspect of the right maxillary sinus. Turbinates: Unremarkable Nasal Septum: Midline Mastoids/Middle Ears: Unremarkable Soft tissue hematoma overlying the right lateral orbital region with the tiny air collection suggestive of possible laceration. CT/Sinus/Facial Bone IMPRESSION: No fracture seen. Soft tissue hematoma overlying the region of the right zygomatic arch and maxil randolph region suggestive of hematoma and laceration. Reading Location: [id number]
--- NOTE | 2025-07-11 09:07 | EDS_ITS ---
HPI History of Present Illness Chief Complaint: Fall Narrative Narrative: Patient is a 80-year-old female with past medical dementia, hypertension, sinus tachycardia, anxiety, rheumatoid arthritis, TIA, CVA who presented to the emergency department chief complaint of fall. Patient states that she went to go to the bathroom this morning and fell is unsure if she passed out or not she states that she does not exactly remember what happened this morning. States that her tetanus shot is updated. Patient is unsure if she is on any blood thinning medications or not. Per family member she was recently here for high blood pressure and was started on some medications. [facility] Medical History Dementia Hypertension Encephalopathy Tachycardia, paroxysmal Delirium Ankylosing spondylitis Urinary tract infection Sinus tachycardia Subconjunctival hemorrhage Conjunctival hemorrhage of left eye Balance problem Urinary incontinence Right hip pain Microcytic anemia Anxiety Rheumatoid arthritis Non-smoker Migraines TIA (transient ischemic attack) Stroke/cerebrovascular accident Generalized weakness Hypokalemia Abdominal pain Asthma DDD (degenerative disc disease) Obesity Frequent falls Essential (primary) hypertension Overactive bladder Chronic back pain Insomnia Hyperlipidemia Depression Osteoarthritis of left knee Iron deficiency anemia Localized swelling of chest wall Confusion Dark stools Left-sided chest wall pain Vitamin D deficiency Vision problems Pneumonia Osteoarthritis Neuropathy IBS (irritable bowel syndrome) Chronic headaches GERD (gastroesophageal reflux disease) H/O emotional problems Chronic bronchitis Home Medications ?Medication ?Instructions ?Recorded ?Last Taken ?Type multivitamin with minerals 1 tab PO DAILY supplement 0 09/24/20 07/11/25 History sumatriptan succinate 6 mg/0.5 mL 6 mg (0.5 mL) subcut Q1-4H PRN 12/10/24 Unknown Rx subcutaneous pen injector (Imitrex migraine headache # 1 mL STATdose Pen) walker (Ultra-Light Rollator misc) #1 ea 01/07/25 Unkn own Rx atorvastatin 40 mg tablet 40 mg PO QHS cholesterol #90 tabs 04/03/25 07/10/25 Rx gabapentin 100 mg capsule 100 mg PO Q12H neuropathy #1 80 caps 04/03/25 07/11/25 Rx omeprazole 40 mg capsule,delayed 40 mg PO DAILY stomac h #90 caps 04/03/25 07/11/25 Rx release potassium chloride 20 mEq 20 meq PO QDAY supplement #9 0 tabs 04/03/25 07/11/25 Rx tablet,extended release(part/cryst) (Klor-Con M) ropinirole 0.5 mg tablet 0.5 mg PO QHS restless legs #90 04/03/25 07/10/25 Rx tabs sertraline 100 mg tablet 200 mg (2 x 100 mg) PO DAILY mood 04/03/25 07/11/25 Rx #180 tabs trazodone 50 mg tablet 25 mg (1/2 x 50 mg) PO DAILY PRN 05/20/25 Unknown Rx insomnia #30 tabs Gemtesa 75 mg tablet (vibegron) 75 mg PO QDAY bladder #90 tabs 05/24/25 06/30/25 Rx acetaminophen 325 mg tablet 650 mg (2 x 325 mg) PO Q6H PRN PRN 07/04/25 Unknown Rx Pain 1-10 Or Fever >100.7 #0 tabs aspirin 81 mg tablet,delayed 81 mg PO DAILY #1 TAB 06/1807/11/25 Rx release memantine 5 mg tablet (Namenda) 5 mg PO BID #60 tabs 1 09/04/24 07/11/25 Rx amlodipine 10 mg tablet 10 mg PO DAILY #30 tabs 06/24 01/16 Unknown Rx metoprolol succinate 50 mg 50 mg PO DAILY #30 tabs Unknown Rx tablet,extended release 24 hr Allergy/AdvReac Type Severity Reaction Status Date / Time adhesive tape Allergy Severe Area Sore Verified 07/11/25 08:30 cefpodoxime (From Vantin) Allergy Unknown Unknown Verified 07/11/25 08:30 codeine Allergy Unknown Unknown Verified 07/11/25 08:30 metronidazole (From Flagyl) Allergy Unknown Unknown Verified 07/11/25 08:30 sulfamethoxazole (From Allergy Unknown Unknown Verified 07/11/25 08:30 Bactrim) trimethoprim (From Bactrim) Allergy Unknown Unknown Verified 07/11/25 08:30 Sulfa (Sulfonamide Allergy Unknown Verified 07/11/25 08:30 Antibiotics) Family History Sister Anesthesia complication Breast cancer Hypertension Cancer Thyroid, rectal, kidney Thyroid disorder Diabetes Mother Arthritis Pancreatic cancer Depression Diabetes Father Colon cancer Hypertension CVA (cerebral vascular accident) Sister Cancer rectal/kidney/medullary Thyroid cancer Surgical History History of appendectomy History of left knee replacement History of left heart catheterization (10/14/20) 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 History of total right knee replacement History of gastric surgery History of hysterectomy History of Hx of breast reduction, elective History of back surgery History of hernia repair History of right knee joint replacement History of cholecystectomy Social History household members: none housing: apartment current occupational status: retired Smoking Status: Former smoker alcohol intake: never substance use type: does not use what type of physical activity do you participate in: none ROS ROS ED ROS Narrative Constitutional: Denies any fevers, chills, headache Eyes: Denies double vision Cardiovascular: Denies chest pain Respiratory: Denies shortness of breath Abdomen: Denies abdominal pain nausea vomit diarrhea : Denies urinary symptoms Neurological: Denies numbness, weak, tingling Musculoskeletal: Denies back pain Skin: Denies any rashes or lesions complains of swelling to the right side of her face from fall EXAM Physical Exam Narrative Exam Narrative: General: Patient lying in bed rest comfortably did not appear to be in acute distress Head: Patient has superficial abrasion noted over the lateral right eye was some ecchymosis noted, normocephalic Eyes: PERRL bilaterally, EOMI bilaterally, no conjunctival injection noted no raccoon eyes no Ortega sign Neck: Soft, supple, trachea midline Cardiovascular: Patient tachycardic Respiratory: Clear to auscultation bilaterally Abdomen: Soft, nondistended, nontender to palpation Musculoskeletal: All bony prominence palpated joints taken through full range of motion no pain elicited Extremities: +4/5 strength noted in the bilateral upper and lower extremities Neurological: Patient following commands knew that she was at [facility] the year is 2024 sensation grossly intact. NIH is 0 GCS 15 Skin: See head Const Vital Signs: 07/11/25 08:26 07/11/25 08:30 07/11/25 09:12 Temperature 97.6 F L Temperature Source Oral Pulse Rate 106 H Pulse Rate [Lying] Pulse Rate [Sitting (for 1 minute prior to obtaining)] Pulse Rate [Standing (for 1 minute prior to obtaining)] Respiratory Rate 18 Respiratory Effort Normal Non-Labored Respiratory Depth Normal Respiratory Pattern Normal Blood Pressure 155/88 H Blood Pressure [Lying] Blood Pressure [Sitting (for 1 minute prior to obtaining)] Blood Pressure [Standing (for 1 minute prior to obtaining)] Blood Pressure Mean 110 Blood Pressure Mean [Lying] Blood Pressure Mean [Sitting (for 1 minute prior to obtaining)] Blood Pressure Mean [Standing (for 1 minute prior to obtaining)] Pulse Ox 98 Oxygen Delivery Method Room Air Room Air Room Air 07/11/25 09:39 07/11/25 09:59 07/11/25 10:15 Temperature 97.8 F 97.4 F L Temperature Source Oral Temporal Pulse Rate 101 H 84 Pulse Rate [Lying] 70 Pulse Rate [Sitting (for 1 minute prior to obtaining)] 74 Pulse Rate [Standing (for 1 minute prior to obtaining)] 87 Respiratory Rate 19 H 20 H Respiratory Effort Respiratory Depth Respiratory Pattern Blood Pressure 122/74 H 158/75 H Blood Pressure [Lying] 127/59 H Blood Pressure [Sitting (for 1 minute prior to obtaining)] 115/67 Blood Pressure [Standing (for 1 minute prior to obtaining)] 178/99 H Blood Pressure Mean 90 102 Blood Pressure Mean [Lying] 81 Blood Pressure Mean [Sitting (for 1 minute prior to obtaining)] 83 Blood Pressure Mean [Standing (for 1 minute prior to obtaining)] 125 Pulse Ox 98 96 Oxygen Delivery Method Room Air Room Air 07/11/25 10:40 07/11/25 11:00 07/11/25 11:11 Temperature 97.5 F L 97.5 F L Temperature Source Temporal Temporal Pulse Rate 70 76 99 Pulse Rate [Lying] Pulse Rate [Sitting (for 1 minute prior to obtaining)] Pulse Rate [Standing (for 1 minute prior to obtaining)] Respiratory Rate 19 H 20 H 20 H Respiratory Effort Respiratory Depth Respiratory Pattern Blood Pressure 126/69 H 136/105 H 124/66 H Blood Pressure [Lying] Blood Pressure [Sitting (for 1 minute prior to obtaining)] Blood Pressure [Standing (for 1 minute prior to obtaining)] Blood Pressure Mean 88 115 85 Blood Pressure Mean [Lying] Blood Pressure Mean [Sitting (for 1 minute prior to obtaining)] Blood Pressure Mean [Standing (for 1 minute prior to obtaining)] Pulse Ox 96 98 96 Oxygen Delivery Method Room Air Room Air Room Air 07/11/25 12:00 07/11/25 12:00 Temperature 97 F L Temperature Source Temporal Pulse Rate 73 73 Pulse Rate [Lying] Pulse Rate [Sitting (for 1 minute prior to obtaining)] Pulse Rate [Standing (for 1 minute prior to obtaining)] Respiratory Rate 16 15 Respiratory Effort Respiratory Depth Respiratory Pattern Blood Pressure 122/86 H Blood Pressure [Lying] Blood Pressure [Sitting (for 1 minute prior to obtaining)] Blood Pressure [Standing (for 1 minute prior to obtaining)] Blood Pressure Mean 98 Blood Pressure Mean [Lying] Blood Pressure Mean [Sitting (for 1 minute prior to obtaining)] Blood Pressure Mean [Standing (for 1 minute prior to obtaining)] Pulse Ox 98 100 Oxygen Delivery Method Room Air Room Air MDM MDM MDM Narrative Medical decision making narrative: Patient is a 80-year-old female who presented to the emergency department with a chief complaint of fall. On the differential diagnosis includes but not limited to intracranial hemorrhage, facial fracture, electrolyte abnormality, cardiac arrhythmia. Once the workup is obtained and reviewed she will be reevaluated. Once again the patient's tetanus shot is updated she states. Patient's CBC reviewed and showed a white blood count is normal 9.5, hemoglobin 0.3, platelet count 241. Patient INR normal at 1, PT of 12.8. Patient sodium was 143, potassium normal 4.2, creatinine 0.70. Patient AST and ALT are 20 and 27 respectively troponin was 9 with a delta troponin of 10 EKG reviewed showed sinus rhythm with a rate of 77 bpm SC interval 156. Patient urinalysis reviewed showed no evidence of infection. Patient's pelvis x-ray reviewed by myself by radiology showed no acute fracture or dislocation. Patient CT face showed no acute fracture soft tissue hematoma overlying the region of the right zygomatic arch and maxillary region suggestive of hematoma and laceration. Patient CT cervical spine showed no acute fracture or subluxation degenerative changes were noted. Patient CT head read without contrast reviewed showed no acute findings chronic changes noted. Discussed results with the patient and family at bedside and they feel that she cannot return home safely on her own as she has had multiple falls therefore we will discuss case with hospitalist for admission for placement. Lab Data Labs: Laboratory Results - last 24 hr 07/11/25 07/11/25 07/11/25 09:13 10:10 11:15 WBC 9.5 RBC 4.42 Hgb 11.3 L Hct 38.3 MCV 86.7 MCH 25.6 L MCHC 29.5 L RDW Std Deviation 52.3 H RDW Coeff of Karon 16.6 H Plt Count 241 MPV 9.4 Immature Gran % (Auto) 0.900 Neut % (Auto) 69.5 Lymph % (Auto) 14.9 L [place] % (Auto) 11.1 H Eos % (Auto) 3.3 Baso % (Auto) 0.3 Absolute Neuts (auto) 6.6 Absolute Lymphs (auto) 1.41 Nucleated RBC % 0 PT 12.8 INR 1.0 APTT 30.0 Sodium 143 Potassium 4.2 Chloride 108 Carbon Dioxide 24.1 Anion Gap 11 BUN 18 Creatinine 0.70 Estim Creat Clear Calc 73.40 Est GFR (MDRD) Non-Af 87 BUN/Creatinine Ratio 25.0 H Glucose 119 H Lactic Acid 1.3 Calcium 9.3 Total Bilirubin 0.21 AST 28 ALT 27 Alkaline Phosphatase 134 H Troponin T High Sens 9 Troponin T Hi Sens 2 Hr 10 Total Protein 6.9 Albumin 4.1 Globulin 2.8 Albumin/Globulin Ratio 1.5 Urine Color Yellow Urine Clarity Sl. Cloudy Urine pH 5.0 Ur Specific [employer] 1.025 Urine Protein 30 H Urine Glucose (UA) Normal Urine Ketones Negative Urine Occult Blood 10 H Urine Nitrite Negative Urine Bilirubin Negative Urine Urobilinogen Normal Ur Leukocyte Esterase 100 H Urine RBC 0 SEEN Urine WBC 0-5 SEEN Ur Squamous Epith Cells 5-10 SEEN Urine Bacteria RARE Hyaline Casts 0-5 SEEN Urine Mucus 0 SEEN Radiography Diagnostic Testing: Clinical Impression(s) from Imaging Studies Chest X-Ray 07/11/25 08:50 IMPRESSION: Stable examination. No acute abnormality is seen. Reading Location: [id number] Brain CT 07/11/25 08:52 IMPRESSION: CHRONIC CHANGES. NO ACUTE FINDINGS. Hematoma overlying the right zygomatic and right maxillary region with the laceration. Reading Location: [id number] Cervical Spine CT 07/11/25 08:52 IMPRESSION: 1. No acute fracture or subluxation in the cervical spine. 2. Degenerative changes in the cervical spine are not significantly changed from prior exam. Reading Location: [id number] Facial/Sinus 07/11/25 08:53 IMPRESSION: No fracture seen. Soft tissue hematoma overlying the region of the right zygomatic arch and maxillary region suggestive of hematoma and laceration. Reading Location: [id number] Pelvis X-Ray 07/11/25 09:40 IMPRESSION: NO ACUTE FINDINGS. DEGENERATIVE CHANGES. Reading Location: [facility] Discharge Plan Triage Chief Complaint: Fall ED Provider: Jorje Hill Dx/Rx/DC Orders Prescriptions: No Action multivitamin with minerals 1 EACH tablet 1 tab PO DAILY acetaminophen 325 mg Tablet 650 mg PO Q6H PRN PRN (Reason: Pain 1-10 Or Fever >100.7) Qty: 0 0RF memantine [Namenda] 5 mg tablet 5 mg PO BID Qty: 60 0RF aspirin 81 mg tablet,delayed release (DR/EC) 81 mg PO DAILY Qty: 1 0RF metoprolol succinate 50 mg tablet extended release 24 hr 50 mg PO DAILY Qty: 30 2RF amlodipine 10 mg tablet 10 mg PO DAILY Qty: 30 2RF sumatriptan succinate [Imitrex STATdose Pen] 6 mg/0.5 mL pen injector 6 mg subcut Q1-4H PRN (Reason: migraine headache) Qty: 1 2RF Rx Instructions: do not exceed 2 doses in a 24 hour period (DME) Ultra-Light Rollator Misc See Rx Instructions .Route Qty: 1 0RF Rx Instructions: As directed atorvastatin 40 mg tablet 40 mg PO QHS Qty: 90 3RF gabapentin 100 mg capsule 100 mg PO Q12H Qty: 180 3RF omeprazole 40 mg capsule,delayed release(DR/EC) 40 mg PO DAILY Qty: 90 3RF potassium chloride [Klor-Con M20] 20 mEq tablet,ER particles/crystals 20 meq PO QDAY Qty: 90 3RF ropinirole 0.5 mg tablet 0.5 mg PO QHS Qty: 90 3RF Rx Instructions: administer 1-3 hours before bedtime sertraline 100 mg tablet 200 mg PO DAILY Qty: 180 3RF Rx Instructions: 200 mg PO daily; trazodone 50 mg tablet 25 mg PO DAILY PRN (Reason: insomnia) Qty: 30 0RF Gemtesa 75 mg tablet 75 mg PO QDAY Qty: 90 0RF Primary Care Provider: Katiana Rayo Referrals: Katiana Rayo MD [Primary Care Provider, Internal Medicine - [facility]] Print Language: Danish
[2025-07-11] MEDS: 0.9% Normal Saline (1000mL) 1,000 ML 999 ML IV ×2 (09:15→12:27)
[2025-07-11 09:25] LABS: Hematocrit 38.3 % (37-47); Hemoglobin 11.3 g/dL (12.0-15.0); Immature Granulocytes Count 0.090 X10^3/uL (0.0-0.0); Mean Corp Hgb Conc 29.5 g/dL (32-36); Mean Corpuscular Volume 86.7 fL (81-99); Mean Platelet Vol. 9.4 fl (6.2-12.0); NRBC Flagged by Analyzer 0 % (0-5); Platelet Count 241 K/mm3 (150-450); RBC Distribution Width CV 16.6 % (11.6-14.6); RBC Distribution Width SD 52.3 fl (35.1-43.9); Red Blood Count 4.42 M/mm3 (4.2-5.4); White Blood Count 9.5 K/mm3 (4.4-11.0)
[2025-07-11 09:33] LABS: Partial Thromboplast Time 30.0 Seconds (24.1-36.2); Prothrombin Time (Protime)PT. 12.8 SECONDS (11.7-14.9)
--- NOTE | 2025-07-11 09:40 | RAD_ITS ---
PROCEDURE: PELVIS 1 OR 2 VIEWS 07/11/2025 REASON FOR EXAM: TRAUMA TECHNIQUE: Procedure Code: RADPEL Modality: DX Procedure: PELVIS 1 OR 2 VIEWS COMPARISON: None FINDINGS: Hardware: Spinal cord stimulating device is seen overlying the right hip joint. Bones: No fracture seen. Joints: Moderate degenerative changes. soft tissues: Soft tissues are unremarkable. Other: RAD/Pelvis 1 or 2 Views IMPRESSION: NO ACUTE FINDINGS. DEGENERATIVE CHANGES. Reading Location: [facility]
[2025-07-11 09:46] LABS: Troponin T High Sensitivity 9 ng/L (<=14)
[2025-07-11 10:17] LABS: Mucous, Urine 0 SEEN /hpf (<or=2+); Red Blood Cells-Urine 0 SEEN /hpf (0-5)
[2025-07-11 10:19] LABS: Color, Urine Yellow (Yellow); Glucose, Dipstick Normal (Normal); Ketone-Dipstick Negative (Negative); Leukocyte Esterase-Dipstick 100 /ul (Negative); Nitrite-Dipstick Negative (Negative); Occult Blood-Urine 10 /ul (Negative); Protein-Dipstick 30 mg/dl (Negative); Specific Gravity, Urine 1.025 (1.002-1.030); Urine Bilirubin Dipstick Negative (Negative)
[2025-07-11 10:40] LABS: Squamous Epithelial Cells - UA 5-10 SEEN /hpf (5-10)
[2025-07-11 11:08] LABS: AST(SGOT) 28 U/L (<=31); Alanine Aminotransfer ALT/SGPT 27 U/L (<=34); Albumin, Serum 4.1 g/dL (3.4-4.8); Alkaline Phosphatase 134 U/L (35-104); Anion Gap 11 (5-15); BUN 18 mg/dL (4-19); BUN/Creat Ratio 25.0 RATIO (10-20); Calcium,Total 9.3 mg/dL (7.6-11.0); Carbon Dioxide 24.1 mmol/L (21.0-32.0); Chloride 108 mmol/L (98-108); Estimated Creatinine Clearance 73.40 ml/min (50-250); Globulin 2.8 g/dL (2.2-4.2); Glucose 119 mg/dL (70-99); Potassium 4.2 mmol/L (3.3-5.1)
[2025-07-11 11:45] LABS: Troponin T High Sens 2 HR 10 ng/L (<=14)
--- NOTE | 2025-07-11 12:24 | HP.PCM.HOS_ITS ---
HPI - General General Date of Admission: 07/11/25 Date of Service: 07/11/25 Chief Complaint: Fall HPI Narrative VANESSA KLINE, is a 80 F with past medical history significant for essential hypertension, dementia who presented to the emergency department with a fall. Patient had been discharged from the hospital 2 days prior to her readmission. She was on admission for Uncontrolled blood pressure. Her medications were adjusted and discharged home. EMS was called after patient apparently fell in her bathtub patient does not recall the event leading to her fall. She was found to have a periorbital bruising around the right eye transferred to the ED. Workup was unremarkable. Admitted to a monitored bed for subsequent workup for syncopal episode as well as physical debility [facility] Medical History Dementia Hypertension Encephalopathy Tachycardia, paroxysmal Delirium Ankylosing spondylitis Urinary tract infection Sinus tachycardia Subconjunctival hemorrhage Conjunctival hemorrhage of left eye Balance problem Urinary incontinence Right hip pain Microcytic anemia Anxiety Rheumatoid arthritis Non-smoker Migraines TIA (transient ischemic attack) Stroke/cerebrovascular accident Generalized weakness Hypokalemia Abdominal pain Asthma DDD (degenerative disc disease) Obesity Frequent falls Essential (primary) hypertension Overactive bladder Chronic back pain Insomnia Hyperlipidemia Depression Osteoarthritis of left knee Iron deficiency anemia Localized swelling of chest wall Confusion Dark stools Left-sided chest wall pain Vitamin D deficiency Vision problems Pneumonia Osteoarthritis Neuropathy IBS (irritable bowel syndrome) Chronic headaches GERD (gastroesophageal reflux disease) H/O emotional problems Chronic bronchitis Home Medications ?Medication ?Instructions ?Recorded ?Last Taken ?Type multivitamin with minerals 1 tab PO DAILY supplement 0 09/24/20 07/11/25 History sumatriptan succinate 6 mg/0.5 mL 6 mg (0.5 mL) subcut Q1-4H PRN 12/10/24 Unknown Rx subcutaneous pen injector (Imitrex migraine headache # 1 mL STATdose Pen) walker (Ultra-Light Rollator misc) #1 ea 01/07/25 Unkn own Rx atorvastatin 40 mg tablet 40 mg PO QHS cholesterol #90 tabs 04/03/25 07/10/25 Rx gabapentin 100 mg capsule 100 mg PO Q12H neuropathy #1 80 caps 04/03/25 07/11/25 Rx omeprazole 40 mg capsule,delayed 40 mg PO DAILY stomac h #90 caps 04/03/25 07/11/25 Rx release potassium chloride 20 mEq 20 meq PO QDAY supplement #9 0 tabs 04/03/25 07/11/25 Rx tablet,extended release(part/cryst) (Klor-Con M) ropinirole 0.5 mg tablet 0.5 mg PO QHS restless legs #90 04/03/25 07/10/25 Rx tabs sertraline 100 mg tablet 200 mg (2 x 100 mg) PO DAILY mood 04/03/25 07/11/25 Rx #180 tabs trazodone 50 mg tablet 25 mg (1/2 x 50 mg) PO DAILY PRN 05/20/25 Unknown Rx insomnia #30 tabs Gemtesa 75 mg tablet (vibegron) 75 mg PO QDAY bladder #90 tabs 05/24/25 06/30/25 Rx acetaminophen 325 mg tablet 650 mg (2 x 325 mg) PO Q6H PRN PRN 07/04/25 Unknown Rx Pain 1-10 Or Fever >100.7 #0 tabs aspirin 81 mg tablet,delayed 81 mg PO DAILY #1 TAB 06/1807/11/25 Rx release memantine 5 mg tablet (Namenda) 5 mg PO BID #60 tabs 1 09/04/24 07/11/25 Rx amlodipine 10 mg tablet 10 mg PO DAILY #30 tabs 06/24 01/16 Unknown Rx metoprolol succinate 50 mg 50 mg PO DAILY #30 tabs Unknown Rx tablet,extended release 24 hr Allergy/AdvReac Type Severity Reaction Status Date / Time adhesive tape Allergy Severe Area Sore Verified 07/11/25 08:30 cefpodoxime (From Vantin) Allergy Unknown Unknown Verified 07/11/25 08:30 codeine Allergy Unknown Unknown Verified 07/11/25 08:30 metronidazole (From Flagyl) Allergy Unknown Unknown Verified 07/11/25 08:30 sulfamethoxazole (From Allergy Unknown Unknown Verified 07/11/25 08:30 Bactrim) trimethoprim (From Bactrim) Allergy Unknown Unknown Verified 07/11/25 08:30 Sulfa (Sulfonamide Allergy Unknown Verified 07/11/25 08:30 Antibiotics) Family History Sister Anesthesia complication Breast cancer Hypertension Cancer Thyroid, rectal, kidney Thyroid disorder Diabetes Mother Arthritis Pancreatic cancer Depression Diabetes Father Colon cancer Hypertension CVA (cerebral vascular accident) Sister Cancer rectal/kidney/medullary Thyroid cancer Surgical History History of appendectomy History of left knee replacement History of left heart catheterization (10/14/20) 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 History of total right knee replacement History of gastric surgery History of hysterectomy History of Hx of breast reduction, elective History of back surgery History of hernia repair History of right knee joint replacement History of cholecystectomy Social History household members: none housing: apartment current occupational status: retired Smoking Status: Former smoker alcohol intake: never substance use type: does not use what type of physical activity do you participate in: none ROS ROS Narrative GENERAL: denies fever, chills, night sweats, weight loss, anorexia HEENT: denies headache, sinus congestion, or drainage, dysphagia RESPIRATORY: denies cough, sputum production, shortness of breath, dyspnea on exertion CARDIAC: denies chest pain, palpitations, orthopnea, PND GASTROINTESTINAL: denies abdominal pain, nausea, vomiting, melena, GENITOURINARY: denies dysuria, urgency, frequency, heamaturia EXTREMITY: denies swelling MUSCULOSKELETAL: Falls NEUROLOGIC: denies focal numbness, weakness, tingling HEMATOLOGIC: denies easy bruising and/or hemorrhage INTEGUMENT: denies rashes PSYCHIATRIC: denies suicidal or homicidal ideation Patient's Goals Of Care . What would you like to achieve or improve as a result of your hospital stay?: To get better Vital Signs Vital Signs Vital Signs: 07/11/25 08:26 07/11/25 08:30 07/11/25 09:12 Temperature 97.6 F L Temperature Source Oral Pulse Rate 106 H Pulse Rate [Lying] Pulse Rate [Sitting (for 1 minute prior to obtaining)] Pulse Rate [Standing (for 1 minute prior to obtaining)] Respiratory Rate 18 Respiratory Effort Normal Non-Labored Respiratory Depth Normal Respiratory Pattern Normal Blood Pressure 155/88 H Blood Pressure [Lying] Blood Pressure [Sitting (for 1 minute prior to obtaining)] Blood Pressure [Standing (for 1 minute prior to obtaining)] Blood Pressure Mean 110 Blood Pressure Mean [Lying] Blood Pressure Mean [Sitting (for 1 minute prior to obtaining)] Blood Pressure Mean [Standing (for 1 minute prior to obtaining)] Pulse Ox 98 Oxygen Delivery Method Room Air Room Air Room Air 07/11/25 09:39 07/11/25 09:59 07/11/25 10:15 Temperature 97.8 F 97.4 F L Temperature Source Oral Temporal Pulse Rate 101 H 84 Pulse Rate [Lying] 70 Pulse Rate [Sitting (for 1 minute prior to obtaining)] 74 Pulse Rate [Standing (for 1 minute prior to obtaining)] 87 Respiratory Rate 19 H 20 H Respiratory Effort Respiratory Depth Respiratory Pattern Blood Pressure 122/74 H 158/75 H Blood Pressure [Lying] 127/59 H Blood Pressure [Sitting (for 1 minute prior to obtaining)] 115/67 Blood Pressure [Standing (for 1 minute prior to obtaining)] 178/99 H Blood Pressure Mean 90 102 Blood Pressure Mean [Lying] 81 Blood Pressure Mean [Sitting (for 1 minute prior to obtaining)] 83 Blood Pressure Mean [Standing (for 1 minute prior to obtaining)] 125 Pulse Ox 98 96 Oxygen Delivery Method Room Air Room Air 07/11/25 10:40 07/11/25 11:00 07/11/25 11:11 Temperature 97.5 F L 97.5 F L Temperature Source Temporal Temporal Pulse Rate 70 76 99 Pulse Rate [Lying] Pulse Rate [Sitting (for 1 minute prior to obtaining)] Pulse Rate [Standing (for 1 minute prior to obtaining)] Respiratory Rate 19 H 20 H 20 H Respiratory Effort Respiratory Depth Respiratory Pattern Blood Pressure 126/69 H 136/105 H 124/66 H Blood Pressure [Lying] Blood Pressure [Sitting (for 1 minute prior to obtaining)] Blood Pressure [Standing (for 1 minute prior to obtaining)] Blood Pressure Mean 88 115 85 Blood Pressure Mean [Lying] Blood Pressure Mean [Sitting (for 1 minute prior to obtaining)] Blood Pressure Mean [Standing (for 1 minute prior to obtaining)] Pulse Ox 96 98 96 Oxygen Delivery Method Room Air Room Air Room Air 07/11/25 12:00 07/11/25 12:00 Temperature 97 F L Temperature Source Temporal Pulse Rate 73 73 Pulse Rate [Lying] Pulse Rate [Sitting (for 1 minute prior to obtaining)] Pulse Rate [Standing (for 1 minute prior to obtaining)] Respiratory Rate 16 15 Respiratory Effort Respiratory Depth Respiratory Pattern Blood Pressure 122/86 H Blood Pressure [Lying] Blood Pressure [Sitting (for 1 minute prior to obtaining)] Blood Pressure [Standing (for 1 minute prior to obtaining)] Blood Pressure Mean 98 Blood Pressure Mean [Lying] Blood Pressure Mean [Sitting (for 1 minute prior to obtaining)] Blood Pressure Mean [Standing (for 1 minute prior to obtaining)] Pulse Ox 98 100 Oxygen Delivery Method Room Air Room Air Weight Weight: 125.191 kg Body Mass Index (BMI) 47.3 Physical Exam Narrative GENERAL: cooperative HEENT: Periorbital bruising around the lateral aspect of the right eye; EYES; Anicteric, Normal Conjunctiva NECK; supple, normal thyroid, RESPIRATORY: Diminished to auscultation CARDIOVASCULAR: Regular S1 S2, GI: soft, normoactive bowel sounds, : No Renal angle tenderness; EXTREMITIES: No edema, no clubbing, MUSCULOSKELETAL: no muscle wasting NEURO: Awake; no lateralizing signs. SKIN: No Rash PSYCH; Flat affect Results Lab / Micro Data 07/11/25 09:13 07/11/25 09:13 Labs: Laboratory Results - last 24 hr 07/11/25 09:13: WBC 9.5, RBC 4.42, Hgb 11.3 L, Hct 38.3, MCV 86.7, MCH 25.6 L, M CHC 29.5 L, RDW Std Deviation 52.3 H, RDW Coeff of Karon 16.6 H, Plt Count 241, MPV 9.4, Immature Gran % (Auto) 0.900, Neut % (Auto) 69.5, Lymph % (Auto) 14.9 L , [place] % (Auto) 11.1 H, Eos % (Auto) 3.3, Baso % (Auto) 0.3, Absolute Neuts (auto) 6.6, Absolute Lymphs (auto) 1.41, Nucleated RBC % 0, PT 12.8, INR 1.0, APTT 30.0, Sodium 143, Potassium 4.2, Chloride 108, Carbon Dioxide 24.1, Anion Gap 11, BUN 18, Creatinine 0.70, Estim Creat Clear Calc 73.40, Est GFR (MDRD) Non-Af 87, BUN/Creatinine Ratio 25.0 H, Glucose 119 H, Lactic Acid 1.3, Calcium 9.3, Total Bilirubin 0.21, AST 28, ALT 27, Alkaline Phosphatase 134 H, Troponin T High Sens 9, Total Protein 6.9, Albumin 4.1, Globulin 2.8, Albumin/Globulin Ratio 1.5 07/11/25 10:10: Urine Color Yellow, Urine Clarity Sl. Cloudy, Urine pH 5.0, Ur Specific [place] 1.025, Urine Protein 30 H, Urine Glucose (UA) Normal, Urine Ketones Negative, Urine Occult Blood 10 H, Urine Nitrite Negative, Urine Bilirubin Negative, Urine Urobilinogen Normal, Ur Leukocyte Esterase 100 H, Urine RBC 0 SEEN, Urine WBC 0-5 SEEN, Ur Squamous Epith Cells 5-10 SEEN, Urine Bacteria RARE, Hyaline Casts 0-5 SEEN, Urine Mucus 0 SEEN 07/11/25 11:15: Troponin T Hi Sens 2 Hr 10 Imaging Radiology Impression Chest X-Ray 07/11/25 08:50 IMPRESSION: Stable examination. No acute abnormality is seen. Reading Location: [id number] Brain CT 07/11/25 08:52 IMPRESSION: CHRONIC CHANGES. NO ACUTE FINDINGS. Hematoma overlying the right zygomatic and right maxillary region with the laceration. Reading Location: [id number] Cervical Spine CT 07/11/25 08:52 IMPRESSION: 1. No acute fracture or subluxation in the cervical spine. 2. Degenerative changes in the cervical spine are not significantly changed from prior exam. Reading Location: [id number] Facial/Sinus 07/11/25 08:53 IMPRESSION: No fracture seen. Soft tissue hematoma overlying the region of the right zygomatic arch and maxillary region suggestive of hematoma and laceration. Reading Location: [id number] Pelvis X-Ray 07/11/25 09:40 IMPRESSION: NO ACUTE FINDINGS. DEGENERATIVE CHANGES. Reading Location: [id number] Assessment & Plan Assessment/Plan (1) Multiple falls: (2) Generalized weakness: PLAN: Plan Patient is an 80-year-old lady admitted with fall 1. Fall with closed head injury ? Etiology of patient's fall unclear however patient has documented history of significant physical debility. Admitted to monitored bed for continuous telemetry monitoring regarding possible syncopal episode. Patient had a 2D echo performed during her recent alkalization which demonstrated normal left ventricular systolic function with an EF of 45%. Requested for PT OT eval and social work case manager to assist with discharge planning. Patient was also placed on every shift orthostatic checks 2. Physical deconditioning ? Requested for PT OT eval and social work case manager to assist with discharge planning 3. Hypertension ? Blood pressure control remains excellent, home medications continued with dose adjustment as needed added hydralazine for systolic blood pressure greater than 160 4. Dementia ? Patient is on memantine did continue 5. Dyslipidemia ?Patient is on statin therapy, continued at home dose #6. Depression with anxiety ? Patient is on sertraline 7. Restless leg syndrome ? Patient is on ropinirole 8. Chronic migraine headaches ? Currently not in exacerbation patient is on triptan as needed 9. DVT prophylaxis ? Subcu heparin CODE STATUS; full code confirmed with patient Charges/Coding Visit Charges Inpatient E&M: 82106 Init Hosp L2
--- NOTE | 2025-07-11 12:44 | CASEMGMT ---
Social Work Patient presented to ED after having a fall this morning in the bathroom, states she does not remember anything until she got to the hospital. Sister at bedside and states they are interested in TCU.? Sister concerned due to patient having multiple falls, patient living alone, and states that sister is showing signs of cognitive decline.?SW explained to patient and sister that SW could make their wishes known, but that acceptance to TCU would depend on insurance approval and bed availability.? ?Patient and sister aware they may need to make additional selections or decision.? Patient and sister understanding of same.? ? Hui Avila, BOAT BUILDER, AUTOMOTIVE DISMANTLER
[2025-07-11] MEDS: Heparin Injection (Vial) 5,000 UNIT/ML VIAL 5000 UNIT SC (21:10)
[2025-07-12] VITALS: BP 145/94; PULSE 106; RESP 16; TEMP 36.6; O2SAT 96
[2025-07-12 06:00] VITALS: BP 120/88; PULSE 107; RESP 16; TEMP 36.6; O2SAT 96
[2025-07-12 07:06] LABS: Hematocrit 35.3 % (37-47); Hemoglobin 10.9 g/dL (12.0-15.0); Immature Granulocytes Count 0.050 X10^3/uL (0.0-0.0); Mean Corp Hgb Conc 30.9 g/dL (32-36); Mean Corpuscular Volume 84.4 fL (81-99); Mean Platelet Vol. 9.6 fl (6.2-12.0); NRBC Flagged by Analyzer 0 % (0-5); Platelet Count 230 K/mm3 (150-450); RBC Distribution Width CV 16.7 % (11.6-14.6); RBC Distribution Width SD 51.0 fl (35.1-43.9); Red Blood Count 4.18 M/mm3 (4.2-5.4); White Blood Count 9.4 K/mm3 (4.4-11.0)
[2025-07-12 07:35] LABS: Anion Gap 9 (5-15); BUN 12 mg/dL (4-19); BUN/Creat Ratio 19.9 RATIO (10-20); Calcium,Total 8.7 mg/dL (7.6-11.0); Carbon Dioxide 24.2 mmol/L (21.0-32.0); Chloride 107 mmol/L (98-108); Estimated Creatinine Clearance 68.37 ml/min (50-250); Glucose 93 mg/dL (70-99); Magnesium 2.2 mg/dL (1.5-2.2); Potassium 4.3 mmol/L (3.3-5.1)
--- NOTE | 2025-07-12 07:47 | PCM.PN.HOSP ---
Reason for Visit Chief Complaint: Fall Subjective Subjective Patient is an 80-year-old female admitted with recurrent falls. Admitted to a monitored bed requested for PT OT eval Objective Data Objective Data Vital Signs: Vital Signs Temp Pulse Resp BP Pulse Ox O2 Del Method 97.9 F 107 H 16 120/88 H 96 Room Air 07/12/25 06:00 07/12/25 06:00 07/12/25 06:00 07/12/25 06:00 07/12/25 06:00 07/12/25 06:00 Oxygen Delivery Method Room Air Weight: 111 kg Body Mass Index (BMI) 42.0 Intake & Output: Intake and Output for Last 24 Hours 07/10/25 07/11/25 07/12/25 23:59 23:59 23:59 Intake Total 2200 / 2440 240 / 240 Output Total 400 / 400 Balance 1800 / 2040 240 / 240 Lab / Micro Data 07/12/25 06:41 07/12/25 06:41 Labs: Laboratory Results - last 24 hr 07/11/25 09:13: WBC 9.5, RBC 4.42, Hgb 11.3 L, Hct 38.3, MCV 86.7, MCH 25.6 L, MCHC 29.5 L, RDW Std Deviation 52.3 H, RDW Coeff of Karon 16.6 H, Plt Count 241, MPV 9.4, Immature Gran % (Auto) 0.900, Neut % (Auto) 69.5, Lymph % (Auto) 14.9 L, [place] % (Auto) 11.1 H, Eos % (Auto) 3.3, Baso % (Auto) 0.3, Absolute Neuts (auto) 6.6, Absolute Lymphs (auto) 1.41, Nucleated RBC % 0, PT 12.8, INR 1.0, APTT 30.0, Sodium 143, Potassium 4.2, Chloride 108, Carbon Dioxide 24.1, Anion Gap 11, BUN 18, Creatinine 0.70, Estim Creat Clear Calc 73.40, Est GFR (MDRD) Non-Af 87, BUN/Creatinine Ratio 25.0 H, Glucose 119 H, Lactic Acid 1.3, Calcium 9.3, Total Bilirubin 0.21, AST 28, ALT 27, Alkaline Phosphatase 134 H, Troponin T High Sens 9, Total Protein 6.9, Albumin 4.1, Globulin 2.8, Albumin/Globulin Ratio 1.5 07/11/25 10:10: Urine Color Yellow, Urine Clarity Sl. Cloudy, Urine pH 5.0, Ur Specific [place] 1.025, Urine Protein 30 H, Urine Glucose (UA) Normal, Urine Ketones Negative, Urine Occult Blood 10 H, Urine Nitrite Negative, Urine Bilirubin Negative, Urine Urobilinogen Normal, Ur Leukocyte Esterase 100 H, Urine RBC 0 SEEN, Urine WBC 0-5 SEEN, Ur Squamous Epith Cells 5-10 SEEN, Urine Bacteria RARE, Hyaline Casts 0-5 SEEN, Urine Mucus 0 SEEN 07/11/25 11:15: Troponin T Hi Sens 2 Hr 10 07/12/25 06:41: WBC 9.4, RBC 4.18 L, Hgb 10.9 L, Hct 35.3 L, MCV 84.4, MCH 26.1 L, MCHC 30.9 L, RDW Std Deviation 51.0 H, RDW Coeff of Karon 16.7 H, Plt Count 230, MPV 9.6, Immature Gran % (Auto) 0.500, Neut % (Auto) 65.3, Lymph % (Auto) 19.7, [place] % (Auto) 10.0, Eos % (Auto) 4.1, Baso % (Auto) 0.4, Absolute Neuts (auto) 6.1, Absolute Lymphs (auto) 1.86, Nucleated RBC % 0, Sodium 140, Potassium 4.3, Chloride 107, Carbon Dioxide 24.2, Anion Gap 9, BUN 12, Creatinine 0.62 L, Estim Creat Clear Calc 68.37, Est GFR (MDRD) Non-Af 90, BUN/Creatinine Ratio 19.9, Glucose 93, Calcium 8.7, Phosphorus 3.3, Magnesium 2.2 Radiography Diagnostic Testing: Radiology Impression Chest X-Ray 07/11/25 08:50 IMPRESSION: Stable examination. No acute abnormality is seen. Reading Location: [id number] Brain CT 07/11/25 08:52 IMPRESSION: CHRONIC CHANGES. NO ACUTE FINDINGS. Hematoma overlying the right zygomatic and right maxillary region with the laceration. Reading Location: [id number] Cervical Spine CT 07/11/25 08:52 IMPRESSION: 1. No acute fracture or subluxation in the cervical spine. 2. Degenerative changes in the cervical spine are not significantly changed from prior exam. Reading Location: [id number] Facial/Sinus 07/11/25 08:53 IMPRESSION: No fracture seen. Soft tissue hematoma overlying the region of the right zygomatic arch and maxillary region suggestive of hematoma and laceration. Reading Location: [facility]Y Pelvis X-Ray 07/11/25 09:40 IMPRESSION: NO ACUTE FINDINGS. DEGENERATIVE CHANGES. Reading Location: [id number] Physical Exam Narrative GENERAL: cooperative HEENT: Periorbital bruising around the lateral aspect of the right eye; EYES; Anicteric, Normal Conjunctiva NECK; supple, normal thyroid, RESPIRATORY: Diminished to auscultation CARDIOVASCULAR: Regular S1 S2, GI: soft, normoactive bowel sounds, : No Renal angle tenderness; EXTREMITIES: No edema, no clubbing, MUSCULOSKELETAL: no muscle wasting NEURO: Awake; no lateralizing signs. SKIN: No Rash PSYCH; Flat affect Assessment & Plan Assessment/Plan (1) Multiple falls: (2) Generalized weakness: PLAN: Plan Patient is an 80-year-old lady admitted with fall 1. Fall with closed head injury ? Etiology of patient's fall unclear however patient has documented history of significant physical debility. Admitted to monitored bed for continuous telemetry monitoring regarding possible syncopal episode. Patient had a 2D echo performed during her recent alkalization which demonstrated normal left ventricular systolic function with an EF of 45%. Requested for PT OT eval and social services director to assist with discharge planning. Patient was also placed on every shift orthostatic checks 2. Physical deconditioning ? Requested for PT OT eval and social services director to assist with discharge planning ? 07/12/2025; case management consulted to assist with placement in a group home facility 3. Hypertension ? Blood pressure control remains excellent, home medications continued with dose adjustment as needed added hydralazine for systolic blood pressure greater than 160 4. Dementia ? Patient is on memantine did continue 5. Dyslipidemia ?Patient is on statin therapy, continued at home dose 6. Depression with anxiety ? Patient is on sertraline 7. Restless leg syndrome ? Patient is on ropinirole 8. Chronic migraine headaches ? Currently not in exacerbation patient is on triptan as needed 9. Anemia ? Secondary to chronic disorder monitoring H&H and transfuse if patient becomes symptomatic or hemoglobin falls below 7 10. DVT prophylaxis ? Subcu heparin CODE STATUS; full code confirmed with patient Charges/Coding Visit Charges Inpatient E&M: 46213 Subs Hosp L2
[2025-07-12 10:37] VITALS: BP 139/87; PULSE 96; RESP 16; TEMP 36.7; O2SAT 99
[2025-07-12 10:41] VITALS: BP 139/87; PULSE 96
[2025-07-12] MEDS: Metoprolol(XL)Succ 50 MG Tablet PO (10:41)
[2025-07-12] MEDS: Memantine Hydrochloride 5 MG Tablet PO ×2 (10:41→22:13)
[2025-07-12] MEDS: Heparin Injection (Vial) 5,000 UNIT/ML VIAL 5000 UNIT SC ×2 (10:43→22:11)
--- NOTE | 2025-07-12 11:39 | CASEMGMT ---
Social Work SW spoke with the patient and she does not want to DC to a NH. Patient is willing to DC to a SNF. CHINMAY Hinkle
--- NOTE | 2025-07-12 11:43 | CASEMGMT ---
Social Work SW called the daughter Dulce Maria. Dulce Maria reported [facility] told her that Tuesday at 100pm to complete the assessment. Dulce Maria reported she does not want her mother to DC home. Dulce Maria reported she has talked to her mother about not going back home. CHINMAY Hinkle
--- NOTE | 2025-07-12 11:56 | CASEMGMT ---
Social Work SW meet with the patient again and she is in agreement to complete a Medicaid application and DC to a assisted. SW notified Elvi with [facility]. CHINMAY Hinkle
--- NOTE | 2025-07-12 15:39 | CASEMGMT ---
Civil Design Technician GLENN spoke with the patient and informed her she will here through the weekend. GLENN informed her GLENN will meet with her on Tuesday. Elvi with [facility] submitted the Medicaid application and we are waiting on a pending Medicaid number. Talat MOY
--- NOTE | 2025-07-12 16:01 | CASEMGMT ---
Social Work Medicaid application for NH is completed and waiting on a pending number,? [facility] is meeting with the patient on Tuesday at 100pm to start their assessment. The plan would be for the patient to DC to a NH with a pending Medicaid number while the [facility] gets approved. Patient at this point, she is agreeing to it.?The daughter Dulce Maria is POA and does not want her mother to go.? CHINMAY Hinkle
[2025-07-12 16:35] VITALS: BP 132/87; PULSE 68; RESP 14; TEMP 37; O2SAT 97
[2025-07-12 22:07] VITALS: BP 147/100; PULSE 101; RESP 18; TEMP 36.9; O2SAT 97
[2025-07-13 03:40] VITALS: BP 126/82; PULSE 67; RESP 18; TEMP 36.5; O2SAT 97
[2025-07-13 06:31] LABS: Hematocrit 35.0 % (37-47); Hemoglobin 10.7 g/dL (12.0-15.0); Immature Granulocytes Count 0.060 X10^3/uL (0.0-0.0); Mean Corp Hgb Conc 30.6 g/dL (32-36); Mean Corpuscular Volume 83.7 fL (81-99); Mean Platelet Vol. 9.9 fl (6.2-12.0); NRBC Flagged by Analyzer 0 % (0-5); Platelet Count 239 K/mm3 (150-450); RBC Distribution Width CV 16.1 % (11.6-14.6); RBC Distribution Width SD 49.2 fl (35.1-43.9); Red Blood Count 4.18 M/mm3 (4.2-5.4); White Blood Count 9.5 K/mm3 (4.4-11.0)
[2025-07-13 06:59] LABS: Anion Gap 11 (5-15); BUN 13 mg/dL (4-19); BUN/Creat Ratio 16.8 RATIO (10-20); Calcium,Total 8.8 mg/dL (7.6-11.0); Carbon Dioxide 24.3 mmol/L (21.0-32.0); Chloride 104 mmol/L (98-108); Estimated Creatinine Clearance 68.37 ml/min (50-250); Glucose 99 mg/dL (70-99); Potassium 3.8 mmol/L (3.3-5.1)
[2025-07-13 09:22] VITALS: BP 130/88; PULSE 67; RESP 18; TEMP 36.8; O2SAT 100
[2025-07-13 09:26] VITALS: BP 130/88; PULSE 67
[2025-07-13] MEDS: Metoprolol(XL)Succ 50 MG Tablet PO (09:26)
[2025-07-13] MEDS: Heparin Injection (Vial) 5,000 UNIT/ML VIAL 5000 UNIT SC ×2 (09:26→21:42)
[2025-07-13] MEDS: Aspirin E.C. 81 MG Tablet PO (09:26)
[2025-07-13] MEDS: Memantine Hydrochloride 5 MG Tablet PO ×2 (09:27→21:43)
--- NOTE | 2025-07-13 11:15 | PCM.PN.HOSP ---
Reason for Visit Chief Complaint: Fall Subjective Subjective Patient seen had a really uneventful night. Awaiting placement to a senior care facility pending bed availability Objective Data Objective Data Vital Signs: Vital Signs Temp Pulse Resp BP Pulse Ox O2 Del Method 98.3 F 67 18 130/88 H 100 Room Air 07/13/25 09:22 07/13/25 09:26 07/13/25 09:22 07/13/25 09:26 07/13/25 09:22 07/13/25 09:22 Oxygen Delivery Method Room Air Weight: 111 kg Body Mass Index (BMI) 42.0 Intake & Output: Intake and Output for Last 24 Hours 07/11/25 07/12/25 07/13/25 23:59 23:59 23:59 Intake Total 2200 / 2440 1340 / 1340 Output Total 400 / 400 Balance 1800 / 2040 1340 / 1340 Lab / Micro Data 07/13/25 05:10 07/13/25 05:10 Labs: Laboratory Results - last 24 hr 07/13/25 05:10: WBC 9.5, RBC 4.18 L, Hgb 10.7 L, Hct 35.0 L, MCV 83.7, MCH 25.6 L, MCHC 30.6 L, RDW Std Deviation 49.2 H, RDW Coeff of Karon 16.1 H, Plt Count 239, MPV 9.9, Immature Gran % (Auto) 0.600, Neut % (Auto) 60.2, Lymph % (Auto) 24.1, [place] % (Auto) 10.7 H, Eos % (Auto) 4.2, Baso % (Auto) 0.2, Absolute Neuts (auto) 5.7, Absolute Lymphs (auto) 2.28, Nucleated RBC % 0, Sodium 139, Potassium 3.8, Chloride 104, Carbon Dioxide 24.3, Anion Gap 11, BUN 13, Creatinine 0.79, Estim Creat Clear Calc 68.37, Est GFR (MDRD) Non-Af 76, BUN/Creatinine Ratio 16.8, Glucose 99, Calcium 8.8 Micro: Microbiology 07/11/25 10:10 Urine Catheter - Catheter Urine Culture - Preliminary Mixed Gram Positive Organisms 07/11/25 09:32 Blood Culture (Wb) - Right Hand Blood Culture - Preliminary No growth in 48 hours. 07/11/25 09:13 Blood Culture (Wb) - Anticubital Right Blood Culture - Preliminary No growth in 48 hours. Physical Exam Narrative GENERAL: cooperative HEENT: Periorbital bruising around the lateral aspect of the right eye; EYES; Anicteric, Normal Conjunctiva NECK; supple, normal thyroid, RESPIRATORY: Diminished to auscultation CARDIOVASCULAR: Regular S1 S2, GI: soft, normoactive bowel sounds, : No Renal angle tenderness; EXTREMITIES: No edema, no clubbing, MUSCULOSKELETAL: no muscle wasting NEURO: Awake; no lateralizing signs. SKIN: No Rash PSYCH; Flat affect Assessment & Plan Assessment/Plan (1) Multiple falls: (2) Generalized weakness: PLAN: Plan Patient is an 80-year-old lady admitted with fall 1. Fall with closed head injury ? Etiology of patient's fall unclear however patient has documented history of significant physical debility. Admitted to monitored bed for continuous telemetry monitoring regarding possible syncopal episode. Patient had a 2D echo performed during her recent alkalization which demonstrated normal left ventricular systolic function with an EF of 45%. Requested for PT OT eval and secondary social studies teacher to assist with discharge planning. Patient was also placed on every shift orthostatic checks ? 07/13/2025 patient has tolerated PT well so far. Awaiting placement in a senior care facility pending insurance approval 2. Physical deconditioning ? Requested for PT OT eval and secondary social studies teacher to assist with discharge planning ? 07/12/2025; case management consulted to assist with placement in a senior care facility 3. Hypertension ? Blood pressure control remains excellent, home medications continued with dose adjustment as needed added hydralazine for systolic blood pressure greater than 160 4. Dementia ? Patient is on memantine did continue 5. Dyslipidemia ?Patient is on statin therapy, continued at home dose 6. Depression with anxiety ? Patient is on sertraline 7. Restless leg syndrome ? Patient is on ropinirole 8. Chronic migraine headaches ? Currently not in exacerbation patient is on triptan as needed 9. Anemia ? Secondary to chronic disorder monitoring H&H and transfuse if patient becomes symptomatic or hemoglobin falls below 7 10. DVT prophylaxis ? Subcu heparin CODE STATUS; full code confirmed with patient Charges/Coding Visit Charges Inpatient E&M: 08848 Subs Hosp L1
[2025-07-13 17:00] VITALS: BP 136/90; PULSE 80; RESP 18; TEMP 36.6; O2SAT 100
[2025-07-13 21:47] VITALS: BP 136/64; PULSE 86; RESP 18; TEMP 36.7; O2SAT 96
[2025-07-14 04:00] VITALS: BP 135/100; PULSE 92; RESP 16; TEMP 36.7; O2SAT 97
[2025-07-14 07:03] LABS: Hematocrit 35.2 % (37-47); Hemoglobin 10.7 g/dL (12.0-15.0); Immature Granulocytes Count 0.040 X10^3/uL (0.0-0.0); Mean Corp Hgb Conc 30.4 g/dL (32-36); Mean Corpuscular Volume 84.6 fL (81-99); Mean Platelet Vol. 9.0 fl (6.2-12.0); NRBC Flagged by Analyzer 0 % (0-5); Platelet Count 231 K/mm3 (150-450); RBC Distribution Width CV 16.6 % (11.6-14.6); RBC Distribution Width SD 51.9 fl (35.1-43.9); Red Blood Count 4.16 M/mm3 (4.2-5.4); White Blood Count 8.7 K/mm3 (4.4-11.0)
[2025-07-14 07:18] LABS: Anion Gap 11 (5-15); BUN 19 mg/dL (4-19); BUN/Creat Ratio 25.5 RATIO (10-20); Calcium,Total 8.9 mg/dL (7.6-11.0); Carbon Dioxide 23.9 mmol/L (21.0-32.0); Chloride 106 mmol/L (98-108); Estimated Creatinine Clearance 68.37 ml/min (50-250); Glucose 102 mg/dL (70-99); Potassium 3.8 mmol/L (3.3-5.1)
--- NOTE | 2025-07-14 09:11 | PN.HOSP_ITS ---
Reason for Visit Chief Complaint: Fall Subjective Subjective Patient seen had a relatively uneventful night. Awaiting Medicaid number prior to patient being discharged to group home facility Objective Data Objective Data Vital Signs: Vital Signs Temp Pulse Resp BP Pulse Ox O2 Del Method 98.0 F 92 16 135/100 H 97 Room Air 07/14/25 04:00 07/14/25 04:00 07/14/25 04:00 07/14/25 04:00 07/14/25 04:00 07/14/25 04:00 Oxygen Delivery Method Room Air Weight: 111 kg Body Mass Index (BMI) 42.0 Intake & Output: Intake and Output for Last 24 Hours 07/12/25 07/13/25 07/14/25 23:59 23:59 23:59 Intake Total 1340 / 1340 1280 / 1280 Balance 1340 / 1340 1280 / 1280 Lab / Micro Data 07/14/25 06:52 07/14/25 06:52 Labs: Laboratory Results - last 24 hr 07/14/25 06:52: WBC 8.7, RBC 4.16 L, Hgb 10.7 L, Hct 35.2 L, MCV 84.6, MCH 25.7 L, MCHC 30.4 L, RDW Std Deviation 51.9 H, RDW Coeff of Karon 16.6 H, Plt Count 231, MPV 9.0, Immature Gran % (Auto) 0.500, Neut % (Auto) 64.5, Lymph % (Auto) 21.5, [place] % (Auto) 10.1 H, Eos % (Auto) 3.2, Baso % (Auto) 0.2, Absolute Neuts (auto) 5.6, Absolute Lymphs (auto) 1.87, Nucleated RBC % 0, Sodium 141, Potassium 3.8, Chloride 106, Carbon Dioxide 23.9, Anion Gap 11, BUN 19, Creatinine 0.76, Estim Creat Clear Calc 68.37, Est GFR (MDRD) Non-Af 79, B UN/Creatinine Ratio 25.5 H, Glucose 102 H, Calcium 8.9 Micro: Microbiology 07/11/25 09:32 Blood Culture (Wb) - Right Hand Blood Culture - Preliminary 07/11/25 10:10 Urine Catheter - Catheter Urine Culture - Preliminary Mixed Gram Positive Organisms 07/11/25 09:13 Blood Culture (Wb) - Anticubital Right Blood Culture - Preliminary No growth in 48 hours. Physical Exam Narrative GENERAL: cooperative HEENT: Periorbital bruising - right eye; EYES; Anicteric, Normal Conjunctiva NECK; supple, normal thyroid, RESPIRATORY: Diminished to auscultation CARDIOVASCULAR: Regular S1 S2, GI: soft, normoactive bowel sounds, : No Renal angle tenderness; EXTREMITIES: No edema, no clubbing, MUSCULOSKELETAL: no muscle wasting NEURO: Awake; no lateralizing signs. SKIN: No Rash PSYCH; Flat affect Assessment & Plan Assessment/Plan (1) Multiple falls: (2) Generalized weakness: PLAN: Plan Patient is an 80-year-old lady admitted with fall 1. Fall with closed head injury ? Etiology of patient's fall unclear however patient has documented history of significant physical debility. Admitted to monitored bed for continuous telemetry monitoring regarding possible syncopal episode. Patient had a 2D echo performed during her recent alkalization which demonstrated normal left ventricular systolic function with an EF of 45%. Requested for PT OT eval and director water and waste services to assist with discharge planning. Patient was also placed on every shift orthostatic checks ? 07/13/2025 patient has tolerated PT well so far. Awaiting placement in a group home facility pending insurance approval ? 07/14/2025; uneventful night 2. Physical deconditioning ? Requested for PT OT eval and director water and waste services to assist with discharge planning ? 07/12/2025; case management consulted to assist with placement in a group home facility 3. Hypertension ? Blood pressure control remains excellent, home medications continued with dose adjustment as needed added hydralazine for systolic blood pressure greater than 160 4. Dementia ? Patient is on memantine did continue 5. Dyslipidemia ?Patient is on statin therapy, continued at home dose 6. Depression with anxiety ? Patient is on sertraline 7. Restless leg syndrome ? Patient is on ropinirole 8. Chronic migraine headaches ? Currently not in exacerbation patient is on triptan as needed 9. Anemia ? Secondary to chronic disorder monitoring H&H and transfuse if patient becomes symptomatic or hemoglobin falls below 7 10. DVT prophylaxis ? Subcu heparin CODE STATUS; full code confirmed with patient Charges/Coding Visit Charges Inpatient E&M: 17538 Subs Hosp L1
[2025-07-14 09:33] VITALS: BP 156/97; PULSE 101; RESP 22; TEMP 36.8; O2SAT 95
[2025-07-14 09:35] VITALS: BP 156/97; PULSE 101
[2025-07-14] MEDS: Memantine Hydrochloride 5 MG Tablet PO ×2 (09:35→20:26)
[2025-07-14] MEDS: Metoprolol(XL)Succ 50 MG Tablet PO (09:35)
[2025-07-14] MEDS: Aspirin E.C. 81 MG Tablet PO (09:36)
[2025-07-14] MEDS: Heparin Injection (Vial) 5,000 UNIT/ML VIAL 5000 UNIT SC ×2 (09:36→20:25)
[2025-07-14 17:41] VITALS: BP 118/66; PULSE 84; RESP 18; TEMP 36.7; O2SAT 96
[2025-07-14 20:00] VITALS: PULSE 81
[2025-07-14 22:00] VITALS: BP 132/66; PULSE 87; RESP 20; TEMP 36.2; O2SAT 98
[2025-07-15 02:00] VITALS: PULSE 61
[2025-07-15 04:00] VITALS: BP 137/76; PULSE 69; RESP 18; TEMP 36.4; O2SAT 96
--- NOTE | 2025-07-15 07:20 | PN.HOSP_ITS ---
Reason for Visit Chief Complaint: Fall Subjective Subjective Patient seen had a relatively uneventful night. Awaiting placement in a long term facility Objective Data Objective Data Vital Signs: Vital Signs Temp Pulse Resp BP Pulse Ox O2 Del Method 97.6 F L 69 18 137/76 H 96 Room Air 07/15/25 04:00 07/15/25 04:00 07/15/25 04:00 07/15/25 04:00 07/15/25 04:00 07/15/25 04:00 Oxygen Delivery Method Room Air Weight: 111 kg Body Mass Index (BMI) 42.0 Intake & Output: Intake and Output for Last 24 Hours 07/13/25 07/14/25 07/15/25 23:59 23:59 23:59 Intake Total 1280 / 1280 950 / 1100 150 / 150 Balance 1280 / 1280 950 / 1100 150 / 150 Lab / Micro Data 07/14/25 06:52 07/14/25 06:52 Micro: Microbiology 07/11/25 10:10 Urine Catheter - Catheter Urine Culture - Preliminary Gram Positive Cocci Gram negative michael Gram positive michael 07/11/25 09:32 Blood Culture (Wb) - Right Hand Blood Culture - Preliminary 07/11/25 09:13 Blood Culture (Wb) - Anticubital Right Blood Culture - Preliminary No growth in 48 hours. Physical Exam Narrative GENERAL: cooperative HEENT: Periorbital bruising - right eye; EYES; Anicteric, Normal Conjunctiva NECK; supple, normal thyroid, RESPIRATORY: Diminished to auscultation CARDIOVASCULAR: Regular S1 S2, GI: soft, normoactive bowel sounds, : No Renal angle tenderness; EXTREMITIES: No edema, no clubbing, MUSCULOSKELETAL: no muscle wasting NEURO: Awake; no lateralizing signs. SKIN: No Rash PSYCH; Flat affect Assessment & Plan Assessment/Plan (1) Multiple falls: (2) Generalized weakness: PLAN: Plan Patient is an 80-year-old lady admitted with fall 1. Fall with closed head injury ? Etiology of patient's fall unclear however patient has documented history of significant physical debility. Admitted to monitored bed for continuous telemetry monitoring regarding possible syncopal episode. Patient had a 2D echo performed during her recent alkalization which demonstrated normal left ventricular systolic function with an EF of 45%. Requested for PT OT eval and director social welfare to assist with discharge planning. Patient was also placed on every shift orthostatic checks ? 07/13/2025 patient has tolerated PT well so far. Awaiting placement in a long term facility pending insurance approval ? 07/14/2025; uneventful night ? 07/15/2025; placement in a long term facility. 2. Physical deconditioning ? Requested for PT OT eval and director social welfare to assist with discharge planning ? 07/12/2025; case management consulted to assist with placement in a long term facility 3. Hypertension ? Blood pressure control remains excellent, home medications continued with dose adjustment as needed added hydralazine for systolic blood pressure greater than 160 4. Dementia ? Patient is on memantine did continue 5. Dyslipidemia ?Patient is on statin therapy, continued at home dose 6. Depression with anxiety ? Patient is on sertraline 7. Restless leg syndrome ? Patient is on ropinirole 8. Chronic migraine headaches ? Currently not in exacerbation patient is on triptan as needed 9. Anemia ? Secondary to chronic disorder monitoring H&H and transfuse if patient becomes symptomatic or hemoglobin falls below 7 10. DVT prophylaxis ? Subcu heparin CODE STATUS; full code confirmed with patient Charges/Coding Visit Charges Inpatient E&M: 85803 Subs Hosp L1
[2025-07-15 08:35] VITALS: BP 150/88; PULSE 69; RESP 16; TEMP 37.1; O2SAT 96
[2025-07-15] MEDS: Aspirin E.C. 81 MG Tablet PO (08:41)
[2025-07-15 08:42] VITALS: BP 150/88; PULSE 69
[2025-07-15] MEDS: Metoprolol(XL)Succ 50 MG Tablet PO (08:42)
[2025-07-15] MEDS: Memantine Hydrochloride 5 MG Tablet PO ×2 (08:42→23:06)
[2025-07-15] MEDS: Heparin Injection (Vial) 5,000 UNIT/ML VIAL 5000 UNIT SC ×2 (08:42→23:11)
--- NOTE | 2025-07-15 09:17 | CASEMGMT ---
Social Work SW spoke with the patient and the patient is still agreement with DC to a NH. Patient still wants [facility]. A referral will be sent to [facility]. The Medicaid application has been submitted. Waiting for the pending Medicaid number. CHINMAY Hinkle
--- NOTE | 2025-07-15 09:40 | CASEMGMT ---
Addendum entered by Winsome Lyon 07/16/25 10:46: [facility] has accepted. SW updated. Original Note: Discharge Planning Referral sent via [facility] to [facility]. Winsome Lyon DC Planning Asst.
--- NOTE | 2025-07-15 13:31 | CASEMGMT ---
Social Work Bernardo Sandeep with [facility] [phone] meet with patient today and completed the SENIOR LIVING assessment. SW explained to Bernardo that we are waiting on a Medicaid pending number and then plan on DC patient to a NH while the [facility] application process is being completed. GLENN explained a referral has been sent to [facility]. CHINMAY Hinkle
[2025-07-15 15:50] VITALS: BP 137/79; PULSE 80; RESP 16; TEMP 37.1; O2SAT 96
[2025-07-15 22:55] VITALS: BP 151/81; PULSE 64; RESP 18; TEMP 36.5; O2SAT 98
[2025-07-16 04:25] VITALS: BP 126/92; PULSE 83; RESP 18; TEMP 36.1; O2SAT 95
--- NOTE | 2025-07-16 07:24 | PCM.PN.HOSP ---
Reason for Visit Chief Complaint: Fall Subjective Subjective Patient seen no change in clinical condition. Awaiting placement in a retirement facility pending Medicaid number. Objective Data Objective Data Vital Signs: Vital Signs Temp Pulse Resp BP Pulse Ox O2 Del Method 97 F L 83 18 126/92 H 95 Room Air 07/16/25 04:25 07/16/25 04:25 07/16/25 04:25 07/16/25 04:25 07/16/25 04:25 07/16/25 04:25 Oxygen Delivery Method Room Air Weight: 111 kg Body Mass Index (BMI) 42.0 Intake & Output: Intake and Output for Last 24 Hours 07/14/25 07/15/25 07/16/25 23:59 23:59 23:59 Intake Total 950 / 1100 150 / 600 570 / 570 Output Total 450 / 450 Balance 950 / 1100 -300 / 150 570 / 570 Lab / Micro Data 07/16/25 09:11 07/16/25 09:11 Micro: Microbiology 07/11/25 09:32 Blood Culture (Wb) - Right Hand Blood Culture - Preliminary 07/11/25 10:10 Urine Catheter - Catheter Urine Culture - Final Aerococcus urinae Escherichia coli Corynebacterium amycolatum 07/11/25 09:13 Blood Culture (Wb) - Anticubital Right Blood Culture - Preliminary No growth in 48 hours. Physical Exam Narrative GENERAL: cooperative HEENT: Periorbital bruising - right eye; EYES; Anicteric, Normal Conjunctiva NECK; supple, normal thyroid, RESPIRATORY: Diminished to auscultation CARDIOVASCULAR: Regular S1 S2, GI: soft, normoactive bowel sounds, : No Renal angle tenderness; EXTREMITIES: No edema, no clubbing, MUSCULOSKELETAL: no muscle wasting NEURO: Awake; no lateralizing signs. SKIN: No Rash PSYCH; Flat affect Assessment & Plan Assessment/Plan (1) Multiple falls: (2) Generalized weakness: PLAN: Plan Patient is an 80-year-old lady admitted with fall 1. Fall with closed head injury ? Etiology of patient's fall unclear however patient has documented history of significant physical debility. Admitted to monitored bed for continuous telemetry monitoring regarding possible syncopal episode. Patient had a 2D echo performed during her recent alkalization which demonstrated normal left ventricular systolic function with an EF of 45%. Requested for PT OT eval and director of social work to assist with discharge planning. Patient was also placed on every shift orthostatic checks ? 07/13/2025 patient has tolerated PT well so far. Awaiting placement in a retirement facility pending insurance approval ? 07/14/2025; uneventful night ? 07/15/2025; placement in a retirement facility. ? 07/16/2025; patient seen no change in clinical condition awaiting Medicaid approval prior to transfer to retirement facility 2. Physical deconditioning ? Requested for PT OT eval and director of social work to assist with discharge planning ? 07/12/2025; case management consulted to assist with placement in a retirement facility 3. Hypertension ? Blood pressure control remains excellent, home medications continued with dose adjustment as needed added hydralazine for systolic blood pressure greater than 160 4. Dementia ? Patient is on memantine did continue 5. Dyslipidemia ?Patient is on statin therapy, continued at home dose 6. Depression with anxiety ? Patient is on sertraline 7. Restless leg syndrome ? Patient is on ropinirole 8. Chronic migraine headaches ? Currently not in exacerbation patient is on triptan as needed 9. Anemia ? Secondary to chronic disorder monitoring H&H and transfuse if patient becomes symptomatic or hemoglobin falls below 7 10. DVT prophylaxis ? Subcu heparin CODE STATUS; full code confirmed with patient Charges/Coding Visit Charges Inpatient E&M: 77844 Subs Hosp L1
[2025-07-16 08:58] VITALS: BP 150/88; PULSE 66; RESP 16; TEMP 36.7; O2SAT 95
[2025-07-16] MEDS: Memantine Hydrochloride 5 MG Tablet PO (09:00)
[2025-07-16] MEDS: Aspirin E.C. 81 MG Tablet PO (09:00)
[2025-07-16 09:01] VITALS: BP 150/88; PULSE 66
[2025-07-16] MEDS: Metoprolol(XL)Succ 50 MG Tablet PO (09:01)
[2025-07-16] MEDS: Heparin Injection (Vial) 5,000 UNIT/ML VIAL 5000 UNIT SC (09:01)
[2025-07-16 09:20] LABS: Hematocrit 37.1 % (37-47); Hemoglobin 11.7 g/dL (12.0-15.0); Mean Corp Hgb Conc 31.5 g/dL (32-36); Mean Corpuscular Volume 82.4 fL (81-99); Mean Platelet Vol. 9.2 fl (6.2-12.0); Platelet Count 266 K/mm3 (150-450); RBC Distribution Width CV 16.4 % (11.6-14.6); RBC Distribution Width SD 49.5 fl (35.1-43.9); Red Blood Count 4.50 M/mm3 (4.2-5.4); White Blood Count 8.5 K/mm3 (4.4-11.0)
--- NOTE | 2025-07-16 09:22 | CASEMGMT ---
Social Work Medicaid pending number has been obtained from [facility] #[id number]. This number and referral submitted to [facility] on 07/15/25. [facility] is currently reviewing pt's case. Pt would admit to SNF under intermediate level of care as there are currently no skilled needs. terminal worker plan is for assisted living under the Waiver program once this can be put in place. Plan: [facility], pending acceptance ALEXANDRA Mckeon
[2025-07-16 09:40] LABS: Anion Gap 11 (7-18); BUN 17 mg/dL (4-19); BUN/Creat Ratio 23.0 RATIO (10-20); Calcium,Total 9.1 mg/dL (7.6-11.0); Carbon Dioxide 25.6 mmol/L (20.0-29.0); Chloride 103 mmol/L (96-106); Estimated Creatinine Clearance 68.37 ml/min (50-250); Glucose 97 mg/dL (70-99); Magnesium 2.4 mg/dL (1.5-2.2); Potassium 4.1 mmol/L (3.5-5.1)
--- NOTE | 2025-07-16 14:14 | PCM.TXEXTCAR ---
Diet Diet Order/Speech Therapy: INPATIENT Hospital Diet / Speech Therapy Order(s) 07/11/25 17:11 Diet: Regular - General Routine Orders/Code Status Code Status: Full Code DC O2, CPAP, BIPAP needs Home O2 Discharge instructions: No Therapies Physical Therapy: Eval and Treat Occupational Therapy: Eval and Treat Problem/Diagnosis (1) Multiple falls: Status: Acute Code(s): R29.6 - Repeated falls (2) Generalized weakness: Status: Acute Code(s): R53.1 - Weakness Plan Patient is an 80-year-old lady admitted with fall 1. Fall with closed head injury ? Etiology of patient's fall unclear however patient has documented history of significant physical debility. Admitted to monitored bed for continuous telemetry monitoring regarding possible syncopal episode. Patient had a 2D echo performed during her recent alkalization which demonstrated normal left ventricular systolic function with an EF of 45%. Requested for PT OT eval and social media manager to assist with discharge planning. Patient was also placed on every shift orthostatic checks ? 07/13/2025 patient has tolerated PT well so far. Awaiting placement in a senior care facility pending insurance approval ? 07/14/2025; uneventful night ? 07/15/2025; placement in a senior care facility. ? 07/16/2025; patient seen no change in clinical condition awaiting Medicaid approval prior to transfer to senior care facility 2. Physical deconditioning ? Requested for PT OT eval and social media manager to assist with discharge planning ? 07/12/2025; case management consulted to assist with placement in a senior care facility 3. Hypertension ? Blood pressure control remains excellent, home medications continued with dose adjustment as needed added hydralazine for systolic blood pressure greater than 160 4. Dementia ? Patient is on memantine did continue 5. Dyslipidemia ?Patient is on statin therapy, continued at home dose 6. Depression with anxiety ? Patient is on sertraline 7. Restless leg syndrome ? Patient is on ropinirole 8. Chronic migraine headaches ? Currently not in exacerbation patient is on triptan as needed 9. Anemia ? Secondary to chronic disorder monitoring H&H and transfuse if patient becomes symptomatic or hemoglobin falls below 7 10. DVT prophylaxis ? Subcu heparin CODE STATUS; full code confirmed with patient Allergies/Procedures Done in Hospital Allergies adhesive tape Allergy (Severe, Verified 07/11/25 08:30) Area Sore cefpodoxime (From Vantin) Allergy (Unknown, Verified 07/11/25 08:30) Unknown codeine Allergy (Unknown, Verified 07/11/25 08:30) Unknown HALLUCINATIONS metronidazole (From Flagyl) Allergy (Unknown, Verified 07/11/25 08:30) Unknown sulfamethoxazole (From Bactrim) Allergy (Unknown, Verified 07/11/25 08:30) Unknown trimethoprim (From Bactrim) Allergy (Unknown, Verified 07/11/25 08:30) Unknown Sulfa (Sulfonamide Antibiotics) Allergy (Verified 07/11/25 08:30) Unknown Type of Care/Length of Stay Estimated LOS: Convalescent Care Less Than 30 days Type of Care Needed: Skilled Rehab Potential: Good Prognosis: Good Additional Orders/Day of Discharge Day of Discharge: 07/16/25 Dietary and Speech Recommendations Dietitian Recommendations/Changes: Continue regular diet. Will monitor weight. Discharge Plan Admission Admit Date/Time: 07/11/25 12:23 Attending Provider: Felipe Hurtado Primary Care Provider: Katiana Rayo Discharge Orders/Prescriptions Prescriptions: New melatonin 3 mg Tablet 3 mg PO QHS PRN PRN (Reason: Insomnia) Qty: 0 0RF alum-mag hydroxide-simeth [Almacone-2] 400-400-40 mg/5 mL Suspension 30 ml PO Q6H PRN PRN (Reason: Gastric Burning) Qty: 0 0RF Continued multivitamin with minerals 1 EACH tablet 1 tab PO DAILY acetaminophen 325 mg Tablet 650 mg PO Q6H PRN PRN (Reason: Pain 1-10 Or Fever >100.7) Qty: 0 0RF memantine [Namenda] 5 mg tablet 5 mg PO BID Qty: 60 0RF aspirin 81 mg tablet,delayed release (DR/EC) 81 mg PO DAILY Qty: 1 0RF metoprolol succinate 50 mg tablet extended release 24 hr 50 mg PO DAILY Qty: 30 2RF amlodipine 10 mg tablet 10 mg PO DAILY Qty: 30 2RF sumatriptan succinate [Imitrex STATdose Pen] 6 mg/0.5 mL pen injector 6 mg subcut Q1-4H PRN (Reason: migraine headache) Qty: 1 2RF Rx Instructions: do not exceed 2 doses in a 24 hour period (DME) Ultra-Light Rollator Misc See Rx Instructions .Route Qty: 1 0RF Rx Instructions: As directed atorvastatin 40 mg tablet 40 mg PO QHS Qty: 90 3RF gabapentin 100 mg capsule 100 mg PO Q12H Qty: 180 3RF omeprazole 40 mg capsule,delayed release(DR/EC) 40 mg PO DAILY Qty: 90 3RF potassium chloride [Klor-Con M20] 20 mEq tablet,ER particles/crystals 20 meq PO QDAY Qty: 90 3RF ropinirole 0.5 mg tablet 0.5 mg PO QHS Qty: 90 3RF Rx Instructions: administer 1-3 hours before bedtime sertraline 100 mg tablet 200 mg PO DAILY Qty: 180 3RF Rx Instructions: 200 mg PO daily; trazodone 50 mg tablet 25 mg PO DAILY PRN (Reason: insomnia) Qty: 30 0RF Gemtesa 75 mg tablet 75 mg PO QDAY Qty: 90 0RF Referrals / Follow Up: Katiana Rayo MD [Primary Care Provider, Internal Medicine - [facility]] Disposition Disposition (needs filled in before D/C Order can be placed): Custodial Facility
[2025-07-16 14:18] VITALS: BP 121/80; PULSE 67; RESP 16; TEMP 36.6; O2SAT 97
--- NOTE | 2025-07-16 14:18 | DS.PCM_ITS ---
Providers Date of Admission: 07/11/25 Date of Discharge: 07/16/25 Primary Care Physician: Dr. Katiana Rayo MD Reason For Visit: SYNCOPE Diagnosis Discharge Diagnosis (1) Multiple falls: Status: Acute Code(s): R29.6 - Repeated falls (2) Generalized weakness: Status: Acute Code(s): R53.1 - Weakness Plan Patient is an 80-year-old lady admitted with fall 1. Fall with closed head injury ? Etiology of patient's fall unclear however patient has documented history of significant physical debility. Admitted to monitored bed for continuous telemetry monitoring regarding possible syncopal episode. Patient had a 2D echo performed during her recent alkalization which demonstrated normal left ventricular systolic function with an EF of 45%. Requested for PT OT eval and neonatal social worker to assist with discharge planning. Patient was also placed on every shift orthostatic checks ? 07/13/2025 patient has tolerated PT well so far. Awaiting placement in a detention facility pending insurance approval ? 07/14/2025; uneventful night ? 07/15/2025; placement in a detention facility. ? 07/16/2025; patient seen no change in clinical condition awaiting Medicaid approval prior to transfer to detention facility 2. Physical deconditioning ? Requested for PT OT eval and neonatal social worker to assist with discharge planning ? 07/12/2025; case management consulted to assist with placement in a detention facility 3. Hypertension ? Blood pressure control remains excellent, home medications continued with dose adjustment as needed added hydralazine for systolic blood pressure greater than 160 4. Dementia ? Patient is on memantine did continue 5. Dyslipidemia ?Patient is on statin therapy, continued at home dose 6. Depression with anxiety ? Patient is on sertraline 7. Restless leg syndrome ? Patient is on ropinirole 8. Chronic migraine headaches ? Currently not in exacerbation patient is on triptan as needed 9. Anemia ? Secondary to chronic disorder monitoring H&H and transfuse if patient becomes symptomatic or hemoglobin falls below 7 10. DVT prophylaxis ? Subcu heparin CODE STATUS; full code confirmed with patient Medications at Discharge Home Medications multivitamin with minerals 1 tab PO DAILY supplement 09/24/20 sumatriptan succinate 6 mg/0.5 mL subcutaneous pen injector (Imitrex STATdose Pen) 6 mg (0.5 mL) subcut Q1-4H PRN migraine headache #1 mL 12/10/24 walker (Ultra-Light Rollator misc) #1 ea 01/07/25 atorvastatin 40 mg tablet 40 mg PO QHS cholesterol #90 tabs 04/03/25 gabapentin 100 mg capsule 100 mg PO Q12H neuropathy #180 caps 04/03/25 omeprazole 40 mg capsule,delayed release 40 mg PO DAILY stomach #90 caps 04/03/25 potassium chloride 20 mEq tablet,extended release(part/cryst) (Klor-Con M) 20 meq PO QDAY supplement #90 tabs 04/03/25 ropinirole 0.5 mg tablet 0.5 mg PO QHS restless legs #90 tabs 04/03/25 sertraline 100 mg tablet 200 mg (2 x 100 mg) PO DAILY mood #180 tabs 04/03/25 trazodone 50 mg tablet 25 mg (1/2 x 50 mg) PO DAILY PRN insomnia #30 tabs 05/20/25 Gemtesa 75 mg tablet (vibegron) 75 mg PO QDAY bladder #90 tabs 05/24/25 acetaminophen 325 mg tablet 650 mg (2 x 325 mg) PO Q6H PRN PRN Pain 1-10 Or Fever >100.7 #0 tabs 07/04/25 aspirin 81 mg tablet,delayed release 81 mg PO DAILY #1 TAB 07/04/25 memantine 5 mg tablet (Namenda) 5 mg PO BID memory #60 tabs 07/04/25 amlodipine 10 mg tablet 10 mg PO DAILY BP #30 tabs 07/09/25 metoprolol succinate 50 mg tablet,extended release 24 hr 50 mg PO DAILY BP/HR #30 tabs 07/09/25 aluminum-mag hydroxide-simethicone 400 mg-400 mg-40 mg/5 mL oral susp (Almacone- 2) 30 ml PO Q6H PRN PRN Gastric Burning #0 mL 07/16/25 melatonin 3 mg tablet 3 mg PO QHS PRN PRN Insomnia #0 tabs 07/16/25 Hospital Course Summary of Care Provided Minutes Spent on Discharge: 35 Physical Exam Narrative GENERAL: cooperative HEENT: Periorbital bruising - right eye; EYES; Anicteric, Normal Conjunctiva NECK; supple, normal thyroid, RESPIRATORY: Diminished to auscultation CARDIOVASCULAR: Regular S1 S2, GI: soft, normoactive bowel sounds, : No Renal angle tenderness; EXTREMITIES: No edema, no clubbing, MUSCULOSKELETAL: no muscle wasting NEURO: Awake; no lateralizing signs. SKIN: No Rash PSYCH; Flat affect Weight / BMI Weight Weight: 111 kg Body Mass Index (BMI) 42.0 ABG / Lab / Microbiology Data 07/16/25 09:11 07/16/25 09:11 Laboratory: Laboratory Results - last 24 hr 07/16/25 09:11: WBC 8.5, RBC 4.50, Hgb 11.7 L, Hct 37.1, MCV 82.4, MCH 26.0 L, M CHC 31.5 L, RDW Std Deviation 49.5 H, RDW Coeff of Karon 16.4 H, Plt Count 266, MPV 9.2, Sodium 139, Potassium 4.1, Chloride 103, Carbon Dioxide 25.6, Anion Gap 11, BUN 17, Creatinine 0.73, Estim Creat Clear Calc 68.37, Est GFR (MDRD) Non-Af 83, BUN/Creatinine Ratio 23.0 H, Glucose 97, Calcium 9.1, Phosphorus 4.2, M agnesium 2.4 H Microbiology: Microbiology 07/11/25 09:13 Blood Culture (Wb) - Anticubital Right Blood Culture - Final No growth in 5 days. 07/11/25 09:32 Blood Culture (Wb) - Right Hand Blood Culture - Preliminary 07/11/25 10:10 Urine Catheter - Catheter Urine Culture - Final Aerococcus urinae Escherichia coli Corynebacterium amycolatum D/C Instructions DC O2, CPAP, BIPAP Needs Home O2 Discharge instructions: No Patient's Goals Of Care - F/U Goals Reviewed Goals of care reviewed with patient: Yes - No change Meaningful Use Info Meaningful Use Meaningful Use Diagnoses (Choose all that apply): None applicable Discharge Plan Admission Admit Date/Time: 07/11/25 12:23 Attending Provider: Felipe Hurtado Primary Care Provider: Katiana Rayo Discharge Orders/Prescriptions Prescriptions: New melatonin 3 mg Tablet 3 mg PO QHS PRN PRN (Reason: Insomnia) Qty: 0 0RF alum-mag hydroxide-simeth [Almacone-2] 400-400-40 mg/5 mL Suspension 30 ml PO Q6H PRN PRN (Reason: Gastric Burning) Qty: 0 0RF Continued multivitamin with minerals 1 EACH tablet 1 tab PO DAILY acetaminophen 325 mg Tablet 650 mg PO Q6H PRN PRN (Reason: Pain 1-10 Or Fever >100.7) Qty: 0 0RF memantine [Namenda] 5 mg tablet 5 mg PO BID Qty: 60 0RF aspirin 81 mg tablet,delayed release (DR/EC) 81 mg PO DAILY Qty: 1 0RF metoprolol succinate 50 mg tablet extended release 24 hr 50 mg PO DAILY Qty: 30 2RF amlodipine 10 mg tablet 10 mg PO DAILY Qty: 30 2RF sumatriptan succinate [Imitrex STATdose Pen] 6 mg/0.5 mL pen injector 6 mg subcut Q1-4H PRN (Reason: migraine headache) Qty: 1 2RF Rx Instructions: do not exceed 2 doses in a 24 hour period (DME) Ultra-Light Rollator Misc See Rx Instructions .Route Qty: 1 0RF Rx Instructions: As directed atorvastatin 40 mg tablet 40 mg PO QHS Qty: 90 3RF gabapentin 100 mg capsule 100 mg PO Q12H Qty: 180 3RF omeprazole 40 mg capsule,delayed release(DR/EC) 40 mg PO DAILY Qty: 90 3RF potassium chloride [Klor-Con M20] 20 mEq tablet,ER particles/crystals 20 meq PO QDAY Qty: 90 3RF ropinirole 0.5 mg tablet 0.5 mg PO QHS Qty: 90 3RF Rx Instructions: administer 1-3 hours before bedtime sertraline 100 mg tablet 200 mg PO DAILY Qty: 180 3RF Rx Instructions: 200 mg PO daily; trazodone 50 mg tablet 25 mg PO DAILY PRN (Reason: insomnia) Qty: 30 0RF Gemtesa 75 mg tablet 75 mg PO QDAY Qty: 90 0RF Referrals / Follow Up: Katiana Rayo MD [Primary Care Provider, Internal Medicine - [facility]] Disposition Disposition (needs filled in before D/C Order can be placed): [facility] Charges/Coding Visit Charges Inpatient E&M: 42058 Disch Hosp >30min
--- NOTE | 2025-07-16 14:37 | PHA.DC.MR.R ---
Pharmacy [place] Med Reconciliation Pharmacy Service has performed discharge medication reconciliation for this patient. The patient's discharge medication list was reviewed for discrepancies and discrepancies were resolved. Medications at Discharge Home Medications multivitamin with minerals 1 tab PO DAILY supplement 09/24/20 sumatriptan succinate 6 mg/0.5 mL subcutaneous pen injector (Imitrex STATdose Pen) 6 mg (0.5 mL) subcut Q1-4H PRN migraine headache #1 mL 12/10/24 walker (Ultra-Light Rollator misc) #1 ea 01/07/25 atorvastatin 40 mg tablet 40 mg PO QHS cholesterol #90 tabs 04/03/25 gabapentin 100 mg capsule 100 mg PO Q12H neuropathy #180 caps 04/03/25 omeprazole 40 mg capsule,delayed release 40 mg PO DAILY stomach #90 caps 04/03/25 potassium chloride 20 mEq tablet,extended release(part/cryst) (Klor-Con M) 20 meq PO QDAY supplement #90 tabs 04/03/25 ropinirole 0.5 mg tablet 0.5 mg PO QHS restless legs #90 tabs 04/03/25 sertraline 100 mg tablet 200 mg (2 x 100 mg) PO DAILY mood #180 tabs 04/03/25 trazodone 50 mg tablet 25 mg (1/2 x 50 mg) PO DAILY PRN insomnia #30 tabs 05/20/25 Gemtesa 75 mg tablet (vibegron) 75 mg PO QDAY bladder #90 tabs 05/24/25 acetaminophen 325 mg tablet 650 mg (2 x 325 mg) PO Q6H PRN PRN Pain 1-10 Or Fever >100.7 #0 tabs 07/04/25 aspirin 81 mg tablet,delayed release 81 mg PO DAILY #1 TAB 07/04/25 memantine 5 mg tablet (Namenda) 5 mg PO BID memory #60 tabs 07/04/25 amlodipine 10 mg tablet 10 mg PO DAILY BP #30 tabs 07/09/25 metoprolol succinate 50 mg tablet,extended release 24 hr 50 mg PO DAILY BP/HR #30 tabs 07/09/25 aluminum-mag hydroxide-simethicone 400 mg-400 mg-40 mg/5 mL oral susp (Almacone-2) 30 ml PO Q6H PRN PRN Gastric Burning #0 mL 07/16/25 melatonin 3 mg tablet 3 mg PO QHS PRN PRN Insomnia #0 tabs 07/16/25
--- NOTE | 2025-07-16 14:38 | CASEMGMT ---
Social Work [facility] is able to accept pt under Medicaid pending number. [facility] states they will complete the Level of Care at their facility once pt has been approved for Medicaid. PASRR completed in [place]. DC clerical assistant updated and to complete discharge. Disposition: [facility], intermediate level of care ALEXANDRA Mckeon
[2025-07-16 15:00] VITALS: BP 130/88; PULSE 89; RESP 16; TEMP 36.6; O2SAT 96
--- NOTE | 2025-07-16 15:38 | CASEMGMT ---
Discharge Planning Discharge orders, signed med list, and transport time sent via [facility] to [facility]. Physicians will transport pt by wheelchair at 5p. Nursing, SW, pt, and her daughter (Dulce Maria) updated. Winsome Lyon DC Planning Asst.
--- NOTE | 2025-07-16 16:01 | MDS.RN ---
report called to [facility] at this time. Repost given to Zeina at [facility].
== END 2025-07-16 17:44 | disposition intermediate care facility (04) ==
LOC: ED 12:31 → PCU 16:19
PROVIDERS: Admitting Provider Internal Medicine; Emergency Provider Emergency Medicine; PCP Internal Medicine; Visit Provider Internal Medicine
DX: S09.90XA Unspecified injury of head, initial encounter (principal); M06.9 Rheumatoid arthritis, unspecified; F03.90 Unspecified dementia, unspecified severity, without behavioral disturbance, psychotic disturbance, mood disturbance, and anxiety; R55 Syncope and collapse; R53.1 Weakness; Z87.891 Personal history of nicotine dependence; F41.8 Other specified anxiety disorders; Z79.899 Other long term (current) drug therapy; K21.9 Gastro-esophageal reflux disease without esophagitis; G47.00 Insomnia, unspecified; G89.29 Other chronic pain; I10 Essential (primary) hypertension; E78.5 Hyperlipidemia, unspecified; Z79.82 Long term (current) use of aspirin; R29.6 Repeated falls; S05.11XA Contusion of eyeball and orbital tissues, right eye, initial encounter; W18.2XXA Fall in (into) shower or empty bathtub, initial encounter; D63.8 Anemia in other chronic diseases classified elsewhere; G25.81 Restless legs syndrome; Z86.73 Personal history of transient ischemic attack (TIA), and cerebral infarction without residual deficits
CPT/HCPCS: 36415; 70450; 70486; 71046; 72125; 72170; 80048; 80053; 81001; 83605; 83735; 84100; 84484; 85025; 85027; 85610; 85730; 87040; 87077; 87086; 87088; 87186; 92523; 93005; 96360; 96361; 96372; 97162; 97167; 97802; 99221; 99252; 99285; A4216; G0378; G0463

== ENCOUNTER → 2025-07-23 05:00 | Outpatient (REF) | payer MEDICARE, MEDICAID, SELFPAY ==
--- OUTSIDE RECORDS SUMMARY | 2025-07-23 04:01 | XMS RPT_ITS | CCD ---
Author Organization [facility] CliniSyme Care Team Providers Care Cotton Tipper Name Role Phone Dr. Moon Rayo Primary Care Provider Dr. Moon Rayo Attending Provider [phone] Dr. Moon Rayo Referring Provider [phone] Dr. Moon Rayo Primary Care Provider Hans Mcnamara Attending Provider Unavailable Dr. Moon Rayo Attending Provider 1([facility])[phone] Dr. Moon Rayo Primary Care Provider Dr. Moon Rayo Attending Provider Dr. Sterling Orosco Attending Provider 1([facility])-[phone] Moon Rayo Primary Care Provider Dr. Moon Rayo Attending Provider Dr. Moon Rayo Referring Provider Dr. Sterling Orosco Attending Provider 1([facility])[phone] Moon Rayo Primary Care Provider Dr. Moon Rayo Attending Provider Dr. Kelle Foster Emergency Provider Dr. Felipe Drew Admit Provider Unavailabl e Dr. Felipe Drew Other Provider Unavailabl e Dr. Dilia Best Attending Provider Dr. Dilia Best Other Provider Dr. Sterling Orosco Attending Provider 1([facility])[phone] Luis Miguel Freeman Attending Provider [...] Other Provider Dr. Joshua Santiago Emergency Provider [phone] Mona Chery Admit Provider Dr. Mona Chery Attending Provider Dr. Mona Chery Other Provider MD Nav Harding Other Provider Unavailable Dr. Sonal Vivar Other Provider MD Parul Lagos Other Provider Unavailable Dr. Beena Wagner Other Provider [phone] Leeann Killian Other Provider Dr. Mandeep Hannon Other Provider Dr. Pamella Carl Other Provider Dr. Moustapha Tran Other Provider Dr. Adrienne Miranda Other Provider MD Shruti Spencer Other Provider Dr. Latonya Renee Other Provider Dr. Love Handy Other Provider Dr. Addie Guardado Other Provider [phone] Trisha Burden Other Provider Dr. Ha [...] Dr. Trisha Burden Other Provider Dr. Ha Batxer Other Provider Dr. Sukhdev Ashraf Other Provider Dr. Kevin Gonzalez Other Provider Dr. Collette Chery Other Provider Unavailable MD Will Locke Other Provider Unavailable Dr. Thais Noriega Attending Provider Dr. Hima Zimmer Attending Provider Dr. Hima Zimmer Other Provider [phone] MOON RAYO MD Attending Unavailable Dr. Moon Rayo MD Primary Care Provider Dr. Moon Rayo MD Attending Provider Dr. Moon Rayo MD Referring Provider Dr. Moon Rayo MD Primary Care Provider Dr. Jojo Sanchez MD Attending Provider Dr. Moon Rayo MD Primary Care Physician [phone] Dr. Jojo Sanchez MD Attending Physician Dr. Moon Rayo MD Attending Physician [phone] Jonathan Eng Attending Unavailable Girma, Moon Primary Care Unavailable GirmaMoon Attending Unavailable Girma, Moon Primary Care Unavailable GirmaMoon Attending Unavailable Girma, Moon Primary Care Unavailable GirmaMoon Attending Unavailable Girma, Moon Referring Unavailable Girma, Moon Primary Care Unavailable Alvin Steele Unavailable Mono Rayo Attending Unavailable Girma, Moon Referring Unavailable [...] tape] Allergy to substance 2 Area Sore [facility] (16 sources) cefpodoxime Drug Allergy 2 [facility] (16 sources) Codeine Drug Allergy 2 [facility] Comment on above: HALLUCINATIONS (16 sources) metroNIDAZOLE Drug Allergy 2 Unknown [facility] (16 sources) Sulfamethoxazole Drug Allergy 2 [facility] (17 sources) Sulfonamides (Antibiotic); Translations: [Sulfa (Sulfonamide Antibiotics)] Allergy to substance 2 Unknown [facility] (16 sources) Trimethoprim Drug Allergy 2 Unknown [facility] (1 source) cefpodoxime Drug Allergy 5 [facility] Repository (1 source) Codeine Drug Allergy 5 [facility] (1 source) metroNIDAZOLE Drug Allergy 5 [facility] (1 source) Sulfamethoxazole Drug Allergy 5 [facility] (1 source) Trimethoprim Drug Allergy 5 [facility] Rep[facility] Medications Current Medications Medication [...] Other acute postprocedural pain polyethylene glycol 3350 65506 mg powder for oral solution (16 sources) [...] 05-24-2025 HIP, UNI W/ Pelvis 2-3 Views [facility] Imaging Services [address] [place] [address] [id number] HIP, UNI W/ Pelvis 2-3 Views MR#: [id number] Acct: [id number] Name: VANESSA HERNANDEZ Rep #: [id number] : 1945 F 80 From: Felipe Wesley PCP: Dr. Moon Rayo MD Status: DEP AMB Study: HIP, UNI W/ Pelvis 2-3 Views Date of Exam: Exam# [id number] Ordering Dr: Alvin Steele DO PROCEDURE: HIP, [...] fracture or dislocation is seen. Reading Location: [facility] CC: Dr. Alvin Steele DO; Dr. Moon Rayo MD Ceo: Signed Normal [facility] Orthopedic Visit Reporton Orthopedic Visit Report [facility] [address] [place] [address] OFFICE VISIT Date of Service: 05/24/25 MR#: [id number] Acct: [id number] Name: VANESSA HERNANDEZ Rep #: [id number] : 1945 Provider: Dr. Alvin goldsmith DO Age/Sex: 80/F Location: [facility] Status: Signed Intake Vital Signs 04/18/25 09:54 [...] cancer H (more content not included)... Normal [facility] MR/BMS.[facility] 04-18-2025 MR/BMS.B [facility] [address] [place] [address] OFFICE VISIT Date of Service: 04/18/25 MR#: [id number] Acct: [id number] Name: VANESSA HERNANDEZ Rep #: [id number] : 1945 Provider: Dr. Moon de la cruz MD Age/Sex: 79/F Location: [facility] Status: Signed Intake Vital Signs 02/21/25 09:44 [...] Reasons: Headaches Chief Complaint: Headaches, neck pain Acid Tank Cleaner Required: No Accompanied by: Self Is patient [...] you fallen in the past year?: No [facility] Medical History (Updated 04/22/25 @ 07:51 by [...] joint repla (more content not included)... Normal [facility] MR/BMS.[facility] 02-21-2025 MR/BMS.IMB [facility] [address] [place] [address] OFFICE VISIT Date of Service: 02/21/25 MR#: [id number] Acct: [id number] Name: VANESSA HERNANDEZ Rep #: [id number] : 1945 Provider: Dr. Moon de la cruz MD Age/Sex: 79/F Location: [facility] Status: Signed Intake Vital Signs 02/18/25 13:36 [...] Reasons: Leg FU Chief Complaint: Leg FU Acid Tank Cleaner Required: No Accompanied by: Self Is patient [...] @ 0 (more content not included)... Normal [facility] /René 02-18-2025 MR/SIMONE.CARYN [facility] [address] [place] [address] OFFICE VISIT Date of Service: 02/18/25 MR#: [id number] Acct: [id number] Name: VANESSA HERNANDEZ Rep #: [id number] : 1945 Provider: Dr. Moon de la cruz MD Age/Sex: 79/F Location: [facility] Status: Signed Intake Vital Signs 09/03/24 09:55 [...] Reasons: Possible Cellulitus Chief Complaint: Possible cellulitis Acid Tank Cleaner Required: No Accompanied by: Self Is patient [...] you fallen in the past year?: No [facility] Medical History (Updated 02/18/25 @ 14:45 by [...] History of (more content not included)... Normal [facility] PT D/C Summary (1)on 025 PT D/C Summary (1) [facility] Physical Therapy [facility] [address] [place] [address] [address] [place] [address] / REHABILITATION SERVICES DISCHARGE SUMMARY MR#: [id number] Acct: [id number] Name: VANESSA HERNANDEZ Rep #: [id number] : 1945 79 From: Dulce Maria LOPEZ Referring Dr.: Dr. Moon Rayo MD Status: R EG RCR Insurance: [facility] MEDICARE SENIOR [place] SELF PAY [...] please feel free to call me at [phone]. Thank you for the referral of this patient. Sincerely, Dulce Maria Lance, JOHN Balance/Gait/Functiona l tests Balance/Special Test Scores Lower Extremity Functional Score: 44 Improvement % Improvement: 90 01/28/25 0958 CC: Dr. Moon Rayo MD Signed Normal [facility] Inital Evaluation (1) - PTon 12-19-2024 Inital Evaluation (1) - PT [facility] Physical Therapy [address] [place] [address] / REHABILITATION SERVICES INITIAL EVALUATION MR#: [id number] Acct: [id number] Name: VANESSA HERNANDEZ Rep #: [id number] : 1945 79 From: Dulce Maria LOPEZ [...] and out of her home. She has evangelical friends that take her to the grocery store. If she goes to [facility] then she will use a rolling cart. [...] Thank you (more content not included)... Normal [facility] MR/BMS.IMBon 09-03-2024 MR/BMS.IMB [facility] [address] [place] [address] OFFICE VISIT Date of Service: 09/03/24 MR#: [id number] Acct: [id number] Name: VANESSA HERNANDEZ Rep #: [id number] : 1945 Provider: Dr. Mono de la cruz MD Age/Sex: 79/F Location: [facility] Status: Signed Intake Vital Signs 08/26/24 07:23 [...] Delivery Method room air Intake Visit Reasons: [facility] ER FU Chief Complaint: [facility] ER FU Acid Tank Cleaner Required: No Accompanied by: Friend Is patient [...] Hypertension Ca (more content not included)... Normal [facility] Urine Cultureon 08-28-2024 URC Mixed Gram Positive Organisms [place] Count 25,000-50,000 MIXC Mixed contaminants. Submit a new specimen if indicated. Normal [facility] Comment on above: Performed By: #### L 500.4050, L100.0100 #### [facility] [address] [place], [place], [id number] Basic Metabolic Profile (BMP )on 08-26-2024 BUN/CRE 33.6 RATIO High 10-20 [facility] Comment on above: Performed By: #### L 100.0100, L500.2500 #### [facility] [address] [place], [address] CA,Total 9.0 mg/dL Normal 8.5-10.1 [facility] Comment on above: Performed By: #### L 100.0100, L500.2500 #### [facility] [address] [place], [address] Chloride [Moles/Vol] 107 mmol/L Normal 98-107 [facility] Comment on above: Performed By: #### L 100.0100, L500.2500 #### [facility] [address] [place], [address] CO2 [Moles/Vol] 27.0 mmol/L Normal 21.0-32.0 [facility] Comment on above: Performed By: #### L 100.0100, L500.2500 #### [facility] [address] [place], [address] Creatinine [Mass/Vol] 0.65 mg/dL Normal 0.55-1.02 [facility] Comment on above: Result Comment: The validity of the calculated GFR GFRAA in patients over 70 years has not been determined. Clinical correlation is essential. Performed By: #### L 100.0100, L500.2500 #### [facility] [address] [place], [address] ECRCL 66.79 ml/min Normal [facility] Comment on above: Performed By: #### L 100.0100, L500.2500 #### [facility] [address] [place], [address] EST GFR - AA 112 mL/min Normal >60 [facility] Comment on above: Result Comment: Afri can Guamanian GFR Calc Performed By: #### L 100.0100, L500.2500 #### [facility] [address] [place], [address] GAP 8 Normal 5-15 [facility] Comment on above: Performed By: #### L 100.0100, L500.2500 #### [facility] [address] [place], [address] GFR/1.73 sq M.predicted among non-blacks MDRD (S/P/Bld) [Vol rate/Area] 93 mL/min/{1.73_m2} Normal >60 [facility] Comment on above: Result Comment: Non- GFR Calc Performed By: #### L 100.0100, L500.2500 #### [facility] [address] [place], [address] Glucose [Mass/Vol] 94 mg/dL Normal 74-106 [facility] Comment on above: Performed By: #### L 100.0100, L500.2500 #### [facility] [address] [place], [address] Potassium [Moles/Vol] 3.8 mmol/L Normal 3.5-5.1 [facility] Comment on above: Performed By: #### L 100.0100, L500.2500 #### [facility] [address] [place], [address] Sodium [Moles/Vol] 141 mmol/L Normal 136-145 [facility] Comment on above: Performed By: #### L 100.0100, L500.2500 #### [facility] [address] [place], [address] Urea nitrogen [Mass/Vol] 22 mg/dL High 7-18 [facility] Comment on above: Performed By: #### L 100.0100, L500.2500 #### [facility] [address] [place], [address] Brain/Head without Contrasto n 08-26-2024 Brain/Head without Contrast [facility] Imaging Services [address] [place] [address] Brain/Head without Contrast MR#: [id number] Acct: [id number] Name: VANESSA HERNANDEZ Rep #: [id number] : 1945 F 79 From: Tay Cuellar MD PCP: Dr. Moon Rayo MD Status: REG ER Study: Brain/Head without Contrast Date of Exam: 09/18 Exam# [id number] Ordering Dr: Abhay Barrios DO EXAM: BRAIN/HEAD [...] evidence of acute intracranial pathology. Reading Location: [facility] CC: Dr. Abhay Barrios DO; Dr. Moon Rayo MD Ceo: Signed Normal [facility] CBC W/Diff, Automatedon Absolute Lymph 1.96 X10 3/uL Normal 0.83-4.51 [facility] Comment on above: Performed By: #### L 100.0100, L500.2500 #### [facility] [address] [place], [address] Absolute Neut 9.0 X10 3/uL High 2.0-7.7 [facility] Comment on above: Performed By: #### L 100.0100, L500.2500 #### [facility] [address] [place], [address] Basophils/100 WBC (Bld) 0.5 % Normal 0-1 [facility] Comment on above: Performed By: #### L 100.0100, L500.2500 #### [facility] [address] [place], [address] Eosinophils/100 WBC (Bld) 0.9 % Normal 0-5 [facility] Comment on above: Performed By: #### L 100.0100, L500.2500 #### [facility] [address] [place], [address] Erythrocyte distribution width (RBC) [Ratio] 19.6 % High 11.6-14.6 [facility] Comment on above: Performed By: #### L 100.0100, L500.2500 #### [facility] [address] [place], [address] Hematocrit (Bld) [Volume fraction] 38.8 % Normal 37-47 [facility] Comment on above: Performed By: #### L 100.0100, L500.2500 #### [facility] [address] [place], [address] Hemoglobin (Bld) [Mass/Vol] 11.7 g/dL Low 12.0-15.0 [facility] Comment on above: Performed By: #### L 100.0100, L500.2500 #### [facility] [address] [place], [address] IG% 0.700 Normal 0.0-0.9 [facility] Comment on above: Result Comment: IG% - Immature Granulocytes (promyelocytes, myelocytes and metamyelocytes) > 1% indicates that a LEFT SHIFT is Present. Performed By: #### L 100.0100, L500.2500 #### [facility] [address] [place], [address] Lymphocytes/100 WBC (Bld) 15.6 % Low 19-41 [facility] Comment on above: Performed By: #### L 100.0100, L500.2500 #### [facility] [address] [place], [address] MCH (RBC) [Entitic mass] 24.7 pg Low 27.0-32.0 [facility] Comment on above: Performed By: #### L 100.0100, L500.2500 #### [facility] [address] [place], [address] MCHC (RBC) [Mass/Vol] 30.2 g/dL Low 32-36 [facility] Comment on above: Performed By: #### L 100.0100, L500.2500 #### [facility] [address] [place], [address] MCV (RBC) [Entitic vol] 82.0 fL Normal 81-99 [facility] Comment on above: Performed By: #### L 100.0100, L500.2500 #### [facility] [address] [place], [address] Monocytes/100 WBC (Bld) 10.7 % High 0-10 [facility] Comment on above: Performed By: #### L 100.0100, L500.2500 #### [facility] [address] [place], [address] Neutrophils/100 WBC (Bld) 71.6 % High 47-70 [facility] Comment on above: Performed By: #### L 100.0100, L500.2500 #### [facility] [address] [place], [address] Nucleated RBC (Bld) [#/Vol] 0 10*3/uL Normal 0-5 [facility] Comment on above: Performed By: #### L 100.0100, L500.2500 #### [facility] [address] [place], [address] Platelet mean volume (Bld) [Entitic vol] 9.5 fL Normal 6.2-12.0 [facility] Comment on above: Performed By: #### L 100.0100, L500.2500 #### [facility] [address] [place], [address] Platelets (Bld) [#/Vol] 260 10*3/uL Normal 150-450 [facility] Comment on above: Performed By: #### L 100.0100, L500.2500 #### [facility] [address] [place], [address] RBC (Bld) [#/Vol] 4.73 10*6/uL Normal 4.2-5.4 [facility] Comment on above: Performed By: #### L 100.0100, L500.2500 #### [facility] [address] [place], [address] RDW SD 58.7 fl High 35.1-43.9 [facility] Comment on above: Performed By: #### L 100.0100, L500.2500 #### [facility] [address] [place], [address] WBC (Bld) [#/Vol] 12.5 10*3/uL High 4.4-11.0 [facility] Comment on above: Performed By: #### L 100.0100, L500.2500 #### [facility] [address] [place], [address] Emergency Department Summary on 08-26-2024 Emergency Department Summary [facility] Medical Records Department [address] [place] [address] Emergency Department Summary 08/26/24 MR#: [id number] Acct: [id number] Name: VANESSA HERNANDEZ Nitza Rep #: [id number] : 1945 79 From: Abhay Barrios DO [...] states that she was getting up for evangelical when she rolled out of bed. States [...] 15 Psych: Cooperative, appropriate mood and affect [facility] Medical History Urinary incontinence Right hip pain [...] M) ondansetron (more content not included)... Normal [facility] Spine Cervical without Contr ason 08-26-2024 Spine Cervical without Contras [facility] Imaging Services [address] [place] [address] Spine Cervical without Contras MR#: [id number] Acct: [id number] Name: VANESSA HERNANDEZ Rep #: [id number] : 1945 F 79 From: Tay Cuellar MD PCP: Dr. Moon Rayo MD Status: REG ER Study: Spine Cervical without Contras Date of Exam: 0 08/26/24 Exam# [id number] Ordering Dr: Abhay Barrios DO PROCEDURE: SPINE [...] use of iterative reconstruction technique). [facility] CC: Dr. Abhay Barrios DO; Dr. Moon Rayo MD Ceo: Signed Normal [facility] Urinalysis, Completeon 08-26 BACTERIA 1+ /hpf Normal None Seen [facility] Comment on above: Order Comment: COLLE CTOR TO SPECIFY Performed By: #### L 400.0001 #### [facility] [address] [place], [address] CA OX CRYSTAL 1+ /hpf Normal [facility] Comment on above: Order Comment: FREEMAN CTOR TO SPECIFY Performed By: #### L 400.0001 #### [facility] [address] [place], [address] EPI,SQUAMOUS 0-5 SEEN Normal 5-10 [facility] Comment on above: Order Comment: FREEMAN CTOR TO SPECIFY Performed By: #### L 400.0001 #### [facility] [address] [place], [address] RBC 0-5 SEEN Normal 0-5 [facility] Comment on above: Order Comment: FREEMAN CTOR TO SPECIFY Performed By: #### L 400.0001 #### [facility] [address] [place], [address] WBC 5-10 SEEN Normal 0-5 [facility] Comment on above: Order Comment: FREEMAN CTOR TO SPECIFY Performed By: #### L 400.0001 #### [facility] [address] [place], [address] Mucus Ql (Urine sed) 0 SEEN Normal [facility] Comment on above: Order Comment: FREEMAN CTOR TO SPECIFY Performed By: #### L 400.0001 #### [facility] [address] [place], [address] CBC W/Diff, Automatedon 12-2 PLT MORPH GIANT Normal [facility] Comment on above: Performed By: #### L 500.4050, L100.0100 #### [facility] [address] [place], [address] Anisocytosis Ql (Bld) 1+ Normal [facility] Comment on above: Performed By: #### L 500.4050, L100.0100 #### [facility] [address] [place], [address] ATYPICAL LYMPH RARE Normal [facility] Comment on above: Performed By: #### L 500.4050, L100.0100 #### [facility] [address] [place], [address] OVALOCYTE RARE Normal [facility] Comment on above: Performed By: #### L 500.4050, L100.0100 #### [facility] [address] [place], [address] Comprehensive Metabolic Prof ilon 07-14-2024 Albumin [Mass/Vol] 4.0 g/dL Normal 3.2-5.0 [facility] Comment on above: Performed By: #### L 500.4050, L100.0100 #### [facility] [address] [place], [address] Albumin/Globulin [Mass ratio] 1.0 {ratio} Normal 0.9-2.4 [facility] Comment on above: Performed By: #### L 500.4050, L100.0100 #### [facility] [address] [place], [address] ALK P 99 U/L Normal 45-117 [facility] Comment on above: Performed By: #### L 500.4050, L100.0100 #### [facility] [address] [place], [address] ALT [Catalytic activity/Vol] 81 U/L High 13-56 [facility] Comment on above: Performed By: #### L 500.4050, L100.0100 #### [facility] [address] [place], [address] AST [Catalytic activity/Vol] 97 U/L High 15-37 [facility] Comment on above: Performed By: #### L 500.4050, L100.0100 #### [facility] [address] [place], [address] Bilirubin [Mass/Vol] 0.50 mg/dL Normal 0.20-1.00 [facility] Comment on above: Result Comment: For patients on eltrombopag therapy, use of Dimension [place] TBIL is not recommended. Performed By: #### L 500.4050, L100.0100 #### [facility] [address] [place], [address] BUN/CRE 13.8 RATIO Normal 10-20 [facility] Comment on above: Performed By: #### L 500.4050, L100.0100 #### [facility] [address] [place], [address] CA,Total 9.8 mg/dL Normal 8.5-10.1 [facility] Comment on above: Performed By: #### L 500.4050, L100.0100 #### [facility] [address] [place], [address] Chloride [Moles/Vol] 103 mmol/L Normal 98-107 [facility] Comment on above: Performed By: #### L 500.4050, L100.0100 #### [facility] [address] [place], [address] CO2 [Moles/Vol] 28.0 mmol/L Normal 21.0-32.0 [facility] Comment on above: Performed By: #### L 500.4050, L100.0100 #### [facility] [address] [place], [address] Creatinine [Mass/Vol] 0.73 mg/dL Normal 0.55-1.02 [facility] Comment on above: Result Comment: The validity of the calculated GFR GFRAA in patients over 70 years has not been determined. Clinical correlation is essential. Performed By: #### L 500.4050, L100.0100 #### [facility] [address] [place], [address] ECRCL 56.19 ml/min Normal [facility] Comment on above: Performed By: #### L 500.4050, L100.0100 #### [facility] [address] [place], [address] EST GFR - AA 100 mL/min Normal >60 [facility] Comment on above: Result Comment: Afri can [place] GFR Calc Performed By: #### L 500.4050, L100.0100 #### [facility] [address] [place], [address] GAP 8 Normal 5-15 [facility] Comment on above: Performed By: #### L 500.4050, L100.0100 #### [facility] [address] [place], [address] GFR/1.73 sq M.predicted among non-blacks MDRD (S/P/Bld) [Vol rate/Area] 82 mL/min/{1.73_m2} Normal >60 [facility] Comment on above: Result Comment: Non- GFR Calc Performed By: #### L 500.4050, L100.0100 #### [facility] [address] [place], [address] Globulin (S) [Mass/Vol] 4.1 g/dL Normal 2.2-4.2 [facility] Comment on above: Performed By: #### L 500.4050, L100.0100 #### [facility] [address] [place], [address] Glucose [Mass/Vol] 106 mg/dL Normal 74-106 [facility] Comment on above: Result Comment: Fast ing Glucose result from 100 to 125 mg/dL suggests IMPAIRED HOMEOSTASIS per A.D.A. criteria. Performed By: #### L 500.4050, L100.0100 #### [facility] [address] [place], [address] Potassium [Moles/Vol] 3.0 mmol/L Low 3.5-5.1 [facility] Comment on above: Performed By: #### L 500.4050, L100.0100 #### [facility] [address] [place], [address] Sodium [Moles/Vol] 138 mmol/L Normal 136-145 [facility] Comment on above: Performed By: #### L 500.4050, L100.0100 #### [facility] [address] [place], [address] T PROT 8.1 g/dL Normal 6.4-8.2 [facility] Comment on above: Performed By: #### L 500.4050, L100.0100 #### [facility] [address] [place], [address] Urea nitrogen [Mass/Vol] 10 mg/dL Normal 7-18 [facility] Comment on above: Performed By: #### L 500.4050, L100.0100 #### [facility] [address] [place], [address] Emergency Department Summary on 07-14-2024 Emergency Department Summary [facility] Medical Records Department [address] [place] [address] Emergency Department Summary 07/14/24 MR#: [id number] Acct: [id number] Name: VANESSA HERNANDEZ Nitza Rep #: [id number] : 1945 79 From: Jose Antonio Marte [...] History Hist (more content not included)... Normal [facility] CBC W/Diff, Automatedon 11-0 -2023 Absolute Lymph 1.81 X10 3/uL Normal 0.83-4.51 [facility] Comment on above: Performed By: #### L 503.6030, L501.9520, L503.0105, L500.4100, L501.5200, L506.1000, L500.4050, L100.0100 #### [facility] [address] [place], [address] Absolute Neut 7.8 X10 3/uL High 2.0-7.7 [facility] Comment on above: Performed By: #### L 503.6030, L501.9520, L503.0105, L500.4100, L501.5200, L506.1000, L500.4050, L100.0100 #### [facility] [address] [place], [address] Basophils/100 WBC (Bld) 0.2 % Normal 0-1 [facility] Comment on above: Performed By: #### L 503.6030, L501.9520, L503.0105, L500.4100, L501.5200, L506.1000, L500.4050, L100.0100 #### [facility] [address] [place], [address] Eosinophils/100 WBC (Bld) 1.7 % Normal 0-5 [facility] Comment on above: Performed By: #### L 503.6030, L501.9520, L503.0105, L500.4100, L501.5200, L506.1000, L500.4050, L100.0100 #### [facility] [address] [place], [address] Erythrocyte distribution width (RBC) [Ratio] 19.0 % High 11.6-14.6 [facility] Comment on above: Performed By: #### L 503.6030, L501.9520, L503.0105, L500.4100, L501.5200, L506.1000, L500.4050, L100.0100 #### [facility] [address] [place], [address] Hematocrit (Bld) [Volume fraction] 37.5 % Normal 37-47 [facility] Comment on above: Performed By: #### L 503.6030, L501.9520, L503.0105, L500.4100, L501.5200, L506.1000, L500.4050, L100.0100 #### [facility] [address] [place], [address] Hemoglobin (Bld) [Mass/Vol] 10.8 g/dL Low 12.0-15.0 [facility] Comment on above: Performed By: #### L 503.6030, L501.9520, L503.0105, L500.4100, L501.5200, L506.1000, L500.4050, L100.0100 #### [facility] [address] [place], [address] IG% 0.600 Normal 0.0-0.9 [facility] Comment on above: Result Comment: IG% - Immature Granulocytes (promyelocytes, myelocytes and metamyelocytes) > 1% indicates that a LEFT SHIFT is Present. Performed By: #### L 503.6030, L501.9520, L503.0105, L500.4100, L501.5200, L506.1000, L500.4050, L100.0100 #### [facility] [address] [place], [address] Lymphocytes/100 WBC (Bld) 16.4 % Low 19-41 [facility] Comment on above: Performed By: #### L 503.6030, L501.9520, L503.0105, L500.4100, L501.5200, L506.1000, L500.4050, L100.0100 #### [facility] [address] [place], [address] MCH (RBC) [Entitic mass] 22.6 pg Low 27.0-32.0 [facility] Comment on above: Performed By: #### L 503.6030, L501.9520, L503.0105, L500.4100, L501.5200, L506.1000, L500.4050, L100.0100 #### [facility] [address] [place], [address] MCHC (RBC) [Mass/Vol] 28.8 g/dL Low 32-36 [facility] Comment on above: Performed By: #### L 503.6030, L501.9520, L503.0105, L500.4100, L501.5200, L506.1000, L500.4050, L100.0100 #### [facility] [address] [place], [address] MCV (RBC) [Entitic vol] 78.6 fL Low 81-99 [facility] Comment on above: Performed By: #### L 503.6030, L501.9520, L503.0105, L500.4100, L501.5200, L506.1000, L500.4050, L100.0100 #### [facility] [address] [place], [address] Monocytes/100 WBC (Bld) 10.3 % High 0-10 [facility] Comment on above: Performed By: #### L 503.6030, L501.9520, L503.0105, L500.4100, L501.5200, L506.1000, L500.4050, L100.0100 #### [facility] [address] [place], [address] Neutrophils/100 WBC (Bld) 70.8 % High 47-70 [facility] Comment on above: Performed By: #### L 503.6030, L501.9520, L503.0105, L500.4100, L501.5200, L506.1000, L500.4050, L100.0100 #### [facility] [address] [place], [address] Nucleated RBC (Bld) [#/Vol] 0 10*3/uL Normal 0-5 [facility] Comment on above: Performed By: #### L 503.6030, L501.9520, L503.0105, L500.4100, L501.5200, L506.1000, L500.4050, L100.0100 #### [facility] [address] [place], [address] Platelet mean volume (Bld) [Entitic vol] 9.7 fL Normal 6.2-12.0 [facility] Comment on above: Performed By: #### L 503.6030, L501.9520, L503.0105, L500.4100, L501.5200, L506.1000, L500.4050, L100.0100 #### [facility] [address] [place], [address] Platelets (Bld) [#/Vol] 322 10*3/uL Normal 150-450 [facility] Comment on above: Performed By: #### L 503.6030, L501.9520, L503.0105, L500.4100, L501.5200, L506.1000, L500.4050, L100.0100 #### [facility] [address] [place], [address] RBC (Bld) [#/Vol] 4.77 10*6/uL Normal 4.2-5.4 [facility] Comment on above: Performed By: #### L 503.6030, L501.9520, L503.0105, L500.4100, L501.5200, L506.1000, L500.4050, L100.0100 #### [facility] [address] [place], [address] RDW SD 53.4 fl High 35.1-43.9 [facility] Comment on above: Performed By: #### L 503.6030, L501.9520, L503.0105, L500.4100, L501.5200, L506.1000, L500.4050, L100.0100 #### [facility] [address] [place], [place], [address] (838) WBC (Bld) [#/Vol] 11.1 10*3/uL High 4.4-11.0 [facility] Comment on above: Performed By: #### L 503.6030, L501.9520, L503.0105, L500.4100, L501.5200, L506.1000, L500.4050, L100.0100 #### [facility] [address] [place], [place], [address] Comprehensive Metabolic Prof ilon 05-28-2024 Albumin [Mass/Vol] 3.5 g/dL Normal 3.2-5.0 [facility] Comment on above: Performed By: #### L 503.6030, L501.9520, L503.0105, L500.4100, L501.5200, L506.1000, L500.4050, L100.0100 #### [facility] [address] [place], [address] Albumin/Globulin [Mass ratio] 0.9 {ratio} Normal 0.9-2.4 [facility] Comment on above: Performed By: #### L 503.6030, L501.9520, L503.0105, L500.4100, L501.5200, L506.1000, L500.4050, L100.0100 #### [facility] [address] [place], [address] ALK P 115 U/L Normal 45-117 [facility] Comment on above: Performed By: #### L 503.6030, L501.9520, L503.0105, L500.4100, L501.5200, L506.1000, L500.4050, L100.0100 #### [facility] [address] [place], [address] ALT [Catalytic activity/Vol] 46 U/L Normal 13-56 [facility] Comment on above: Performed By: #### L 503.6030, L501.9520, L503.0105, L500.4100, L501.5200, L506.1000, L500.4050, L100.0100 #### [facility] [address] [place], [address] AST [Catalytic activity/Vol] 37 U/L Normal 15-37 [facility] Comment on above: Performed By: #### L 503.6030, L501.9520, L503.0105, L500.4100, L501.5200, L506.1000, L500.4050, L100.0100 #### [facility] [address] [place], [address] Bilirubin [Mass/Vol] 0.30 mg/dL Normal 0.20-1.00 [facility] Comment on above: Result Comment: For patients on eltrombopag therapy, use of Dimension [place] TBIL is not recommended. Performed By: #### L 503.6030, L501.9520, L503.0105, L500.4100, L501.5200, L506.1000, L500.4050, L100.0100 #### [facility] [address] [place], [address] BUN/CRE 27.8 RATIO High 10-20 [facility] Comment on above: Performed By: #### L 503.6030, L501.9520, L503.0105, L500.4100, L501.5200, L506.1000, L500.4050, L100.0100 #### [facility] [address] [place], [address] CA,Total 9.1 mg/dL Normal 8.5-10.1 [facility] Comment on above: Performed By: #### L 503.6030, L501.9520, L503.0105, L500.4100, L501.5200, L506.1000, L500.4050, L100.0100 #### [facility] [address] [place], [address] Chloride [Moles/Vol] 107 mmol/L Normal 98-107 [facility] Comment on above: Performed By: #### L 503.6030, L501.9520, L503.0105, L500.4100, L501.5200, L506.1000, L500.4050, L100.0100 #### [facility] [address] [place], [address] CO2 [Moles/Vol] 26.0 mmol/L Normal 21.0-32.0 [facility] Comment on above: Performed By: #### L 503.6030, L501.9520, L503.0105, L500.4100, L501.5200, L506.1000, L500.4050, L100.0100 #### [facility] [address] [place], [address] Creatinine [Mass/Vol] 0.68 mg/dL Normal 0.55-1.02 [facility] Comment on above: Result Comment: The validity of the calculated GFR GFRAA in patients over 70 years has not been determined. Clinical correlation is essential. Performed By: #### L 503.6030, L501.9520, L503.0105, L500.4100, L501.5200, L506.1000, L500.4050, L100.0100 #### [facility] [address] [place], [address] EST GFR - AA 107 mL/min Normal >60 [facility] Comment on above: Result Comment: Afri can [place] GFR Calc Performed By: #### L 503.6030, L501.9520, L503.0105, L500.4100, L501.5200, L506.1000, L500.4050, L100.0100 #### [facility] [address] [place], [address] GAP 8 Normal 5-15 [facility] Comment on above: Performed By: #### L 503.6030, L501.9520, L503.0105, L500.4100, L501.5200, L506.1000, L500.4050, L100.0100 #### [facility] [address] [place], [address] GFR/1.73 sq M.predicted among non-blacks MDRD (S/P/Bld) [Vol rate/Area] 88 mL/min/{1.73_m2} Normal >60 [facility] Comment on above: Result Comment: Non- GFR Calc Performed By: #### L 503.6030, L501.9520, L503.0105, L500.4100, L501.5200, L506.1000, L500.4050, L100.0100 #### [facility] [address] [place], [address] Globulin (S) [Mass/Vol] 3.8 g/dL Normal 2.2-4.2 [facility] Comment on above: Performed By: #### L 503.6030, L501.9520, L503.0105, L500.4100, L501.5200, L506.1000, L500.4050, L100.0100 #### [facility] [address] [place], [address] Glucose [Mass/Vol] 112 mg/dL High 74-106 [facility] Comment on above: Result Comment: Fast ing Glucose result from 100 to 125 mg/dL suggests IMPAIRED HOMEOSTASIS per A.D.A. criteria. Performed By: #### L 503.6030, L501.9520, L503.0105, L500.4100, L501.5200, L506.1000, L500.4050, L100.0100 #### [facility] [address] [place], [address] Potassium [Moles/Vol] 3.7 mmol/L Normal 3.5-5.1 [facility] Comment on above: Performed By: #### L 503.6030, L501.9520, L503.0105, L500.4100, L501.5200, L506.1000, L500.4050, L100.0100 #### [facility] [address] [place], [address] Sodium [Moles/Vol] 142 mmol/L Normal 136-145 [facility] Comment on above: Performed By: #### L 503.6030, L501.9520, L503.0105, L500.4100, L501.5200, L506.1000, L500.4050, L100.0100 #### [facility] [address] [place], [address] T PROT 7.3 g/dL Normal 6.4-8.2 [facility] Comment on above: Performed By: #### L 503.6030, L501.9520, L503.0105, L500.4100, L501.5200, L506.1000, L500.4050, L100.0100 #### [facility] [address] [place], [address] Urea nitrogen [Mass/Vol] 19 mg/dL High 7-18 [facility] Comment on above: Performed By: #### L 503.6030, L501.9520, L503.0105, L500.4100, L501.5200, L506.1000, L500.4050, L100.0100 #### [facility] [address] [place], [address] Iron+Iron Binding Capacityon 05-28-2024 Iron [Mass/Vol] 22 ug/dL Low 50-170 [facility] Comment on above: Performed By: #### L 500.4050, L100.0100 #### [facility] [address] [place], [address] IRON SATURATION 4.9 Low 15.0-55.0 [facility] Comment on above: Performed By: #### L 500.4050, L100.0100 #### [facility] [address] [place], [address] TIBC 449 ug/dL Normal 250-450 [facility] Comment on above: Performed By: #### L 500.4050, L100.0100 #### [facility] [address] [place], [address] Lipid Profileon 05-28-2024 Cholesterol [Mass/Vol] 144 mg/dL Normal 200 [facility] Comment on above: Result Comment: <200 mg/dL Desirable 200-240 mg/dL Borderline >240 mg/dL High Risk Performed By: #### L 500.4050, L100.0100 #### [facility] [address] [place], [address] Cholesterol in HDL [Mass/Vol] 57 mg/dL Normal [facility] Comment on above: Result Comment: The drugs N-Acetylcysteine and Metamizole may falsely depress this assay. Reference Range HDL <40 mg/dL Low HDL Cholesterol HDL >or= 60 mg/dL High HDL Cholesterol Performed By: #### L 500.4050, L100.0100 #### [facility] [address] [place], [address] Cholesterol in LDL [Mass/Vol] 59 mg/dL Normal 0-130 [facility] Comment on above: Performed By: #### L 500.4050, L100.0100 #### [facility] [address] [place], [address] Cholesterol in VLDL [Mass/Vol] 28 mg/dL Normal 5-40 [facility] Comment on above: Performed By: #### L 500.4050, L100.0100 #### [facility] [address] [place], [address] Triglyceride [Mass/Vol] 140 mg/dL Normal [facility] Comment on above: Result Comment: The drugs N-Acetylcysteine and Metamizole may falsely depress this assay. Serum Triglycerides Reference Interval Normal <150 mg/dL Borderline high 150 - 199 mg/dL High 200 - 499 mg/dL Very High > or = 500 mg/dL Performed By: #### L 500.4050, L100.0100 #### [facility] [address] [place], [address] Magnesiumon 05-28-2024 Magnesium [Mass/Vol] 2.3 mg/dL Normal 1.6-2.6 [facility] Comment on above: Performed By: #### L 500.4050, L100.0100 #### [facility] [address] [place], [address] Thyroid Stim Hormone (TSH)on 05-28-2024 TSH 2.770 uIU/mL Normal 0.358-3.740 [facility] Comment on above: Performed By: #### L 500.4050, L100.0100 #### [facility] [address] [place], [address] Vitamin B12on 05-28-2024 Cobalamin (Vitamin B12) [Mass/Vol] 293 pg/mL Normal 211-911 [facility] Comment on above: Performed By: #### L 503.6030, L501.9520, L503.0105, L500.4100, L501.5200, L506.1000, L500.4050, L100.0100 #### [facility] [address] [place], [address] Vitamin D,25 Hydroxyon 05-28 Vitamin D 25-OH 13.1 ng/mL Normal [facility] Comment on above: Result Comment: Livia min D 25(OH) Status Range Deficiency <20 ng/mL (50nmol/L) Insufficiency 20 - 30 ng/mL (50 - 75 nmol/L) Sufficiency 30 - 100 ng/mL (75 - 250 nmol/L) Toxicity >100 ng/mL (>250 nmol/L) Performed By: #### L 503.6030, L501.9520, L503.0105, L500.4100, L501.5200, L506.1000, L500.4050, L100.0100 #### [facility] [address] [place], [address] ESRon 10-25-2023 Erythrocyte Sed Rate 72 mm/hr High 0-30 [facility] ([place]) Comment on above: Performed By: #### E SR #### [address] [address] LABORATORYOrdered By: Chito Rao on 10-25-2023 ESR Photometric method (Bld) [Velocity] 72 mm/hr High 0 - 30 mm/hr AO Man Heme SS Absolute lymphocyte countOrd ered By: Moon Rayo on 10-24-2023 Lymphocytes Auto (Unsp spec) [#/Vol] 1.62 10*3/uL 0.83-4.51 [facility] Automated lymphocyte count a s percentage of total leukocytesOrdered By: Moon Rayo on 10-24-2023 Lymphocytes/100 WBC Auto (Unsp spec) 12.4 % 19-41 [facility] Basophil percentageOrdered B y: Moon Rayo on 10-24-2023 Basophil percentage 11.3 g/dL 12.0-15.0 [facility] Basophil percentage 86 mg/dL 74-106 [facility] Basophil percentage 138 mmol/L 136-145 [facility] Basophil percentage 3.4 mmol/L 3.5-5.1 [facility] Basophil percentage 104 mmol/L 98-107 [facility] Basophils (Bld) [#/Vol] 13.1 10*3/uL 4.4-11.0 [facility] Basophils (Bld) [#/Vol] 9.8 10*3/uL 2.0-7.7 [facility] Basophils/100 WBC (Bld) 74.4 % 47-70 [facility] Basophils/100 WBC (Bld) 11.3 % 0-10 [facility] Basophils/100 WBC (Bld) 1.0 % 0-5 [facility] Basophils/100 WBC (Bld) 0.4 % 0-1 [facility] Determination of erythrocyte mean corpuscular volume (MCV)Ordered By: Moon Rayo on 10-24-2023 MCV (RBC) [Entitic vol] 78.1 fL 81-99 [facility] Erythrocyte distribution wid th ratioOrdered By: Moon Rayo on 10-24-2023 Erythrocyte distribution width (RBC) [Ratio] 19.1 % 11.6-14.6 [facility] Erythrocyte distribution wid th standard deviationOrdered By: Moon Rayo on 10-24-2023 Erythrocyte distribution width (RBC) [Entitic vol] 53.7 fL 35.1-43.9 [facility] Erythrocyte sedimentation ra teOrdered By: Moon Rayo on 10-24-2023 ESR (Bld) [Velocity] 72 mm/h 0-30 [facility] Hematocrit Auto (Bld) [Volum e fraction]Ordered By: Moon Rayo on 10-24-2023 Hematocrit (Bld) [Volume fraction] 38.8 % 37-47 [facility] Immature granulocytes/100 WB C Auto (Bld)Ordered By: Moon Rayo on 10-24-2023 Immature granulocytes/100 WBC (Bld) 0.500 % 0.0-0.9 [facility] No Panel InformationOrdered By: Moon Rayo on 10-24-2023 22.7 pg 27.0-32.0 [facility] 29.1 g/dL 32-36 [facility] 319 K/mm3 150-450 [facility] 9.4 fl 6.2-12.0 [facility] 0 % 0-5 [facility] 74 mL/min >60 [facility] 90 mL/min >60 [facility] 13.9 RATIO 10-20 [facility] 28.0 mmol/L 21.0-32.0 [facility] 50.30 mg/L 0.0-3.0 [facility] RBC Auto (Bld) [#/Vol]Ordere d By: Moon Rayo on 10-24-2023 RBC (Bld) [#/Vol] 4.97 10*6/uL 4.2-5.4 [facility] Serum or plasma calcium gustavo urement (mass/volume)Ordered By: Moon Rayo on 10-24-2023 Calcium [Mass/Vol] 9.2 mg/dL 8.5-10.1 [facility] Serum or plasma creatinine m easurement (mass/volume)Ordered By: Moon Rayo on 10-24-2023 Creatinine [Mass/Vol] 0.79 mg/dL 0.55-1.02 [facility] Serum or plasma urea nitroge n measurement (mass/volume)Ordered By: Moon Rayo on 10-24-2023 Urea nitrogen [Mass/Vol] 11 mg/dL 7-18 [facility] Serum or plasma uric acid me asurement (mass/volume)Ordered By: Moon Rayo on 10-24-2023 Urate [Mass/Vol] 4.6 mg/dL 2.6-6.0 [facility] Thin prep Papanicolaou smear with manual screeningOrdered By: Moon Rayo on 10-24-2023 Thin prep Papanicolaou smear with manual screening 6 5-15 [facility] Basophil percentageOrdered B y: Bhavna Andino on 10-03-2023 Basophil percentage 9.9 g/dL 12.0-15.0 [facility] Basophil percentage 87 mg/dL 74-106 [facility] Basophil percentage 101 mg/dL <200 [facility] Basophil percentage 107 mg/dL <199 [facility] Basophil percentage 143 mmol/L 136-145 [facility] Basophil percentage 3.5 mmol/L 3.5-5.1 [facility] Basophil percentage 109 mmol/L 98-107 [facility] Basophils (Bld) [#/Vol] 7.8 10*3/uL 4.4-11.0 [facility] Determination of erythrocyte mean corpuscular volume (MCV)Ordered By: Bhavna Andino on 10-03-2023 MCV (RBC) [Entitic vol] 79.4 fL 81-99 [facility] Erythrocyte distribution wid th ratioOrdered By: Bhavna Andino on 10-03-2023 Erythrocyte distribution width (RBC) [Ratio] 18.6 % 11.6-14.6 [facility] Erythrocyte distribution wid th standard deviationOrdered By: Bhavna Andino on 10-03-2023 Erythrocyte distribution width (RBC) [Entitic vol] 53.4 fL 35.1-43.9 [facility] Hematocrit Auto (Bld) [Volum e fraction]Ordered By: Bhavna Andino on 10-03-2023 Hematocrit (Bld) [Volume fraction] 34.4 % 37-47 [facility] No Panel InformationOrdered By: Bhavna Andino on 10-03-2023 22.9 pg 27.0-32.0 [facility] 28.8 g/dL 32-36 [facility] 340 K/mm3 150-450 [facility] 9.0 fl 6.2-12.0 [facility] 85 mL/min >60 [facility] 103 mL/min >60 [facility] 15.6 RATIO 10-20 [facility] 2.1 mg/dL 1.6-2.6 [facility] 28.0 mmol/L 21.0-32.0 [facility] 33 mg/dL >40 [facility] 47 mg/dL 0-130 [facility] 21 mg/dL 5-40 [facility] RBC Auto (Bld) [#/Vol]Ordere d By: Bhavna Andino on 10-03-2023 RBC (Bld) [#/Vol] 4.33 10*6/uL 4.2-5.4 [facility] Serum or plasma calcium gustavo urement (mass/volume)Ordered By: Bhavna Andino on 10-03-2023 Calcium [Mass/Vol] 8.9 mg/dL 8.5-10.1 [facility] Serum or plasma creatinine m easurement (mass/volume)Ordered By: Bhavna Andino on 10-03-2023 Creatinine [Mass/Vol] 0.70 mg/dL 0.55-1.02 [facility] Serum or plasma urea nitroge n measurement (mass/volume)Ordered By: Bhavna Andino on 10-03-2023 Urea nitrogen [Mass/Vol] 11 mg/dL 7-18 [facility] Thin prep Papanicolaou smear with manual screeningOrdered By: Bhavna Andino on 10-03-2023 Thin prep Papanicolaou smear with manual screening 6 5-15 [facility] Absolute lymphocyte countOrd ered By: Bhavna Andino on 09-29-2023 Lymphocytes Auto (Unsp spec) [#/Vol] 1.67 10*3/uL 0.83-4.51 [facility] Automated lymphocyte count a s percentage of total leukocytesOrdered By: Bhavna Andino on 09-29-2023 Lymphocytes/100 WBC Auto (Unsp spec) 18.8 % 19-41 [facility] Basophil percentageOrdered B y: Bhavna Andino on 09-29-2023 Basophil percentage 9.9 g/dL 12.0-15.0 [facility] Basophil percentage 99 mg/dL 74-106 [facility] Basophil percentage 143 mmol/L 136-145 [facility] Basophil percentage 3.2 mmol/L 3.5-5.1 [facility] Basophil percentage 106 mmol/L 98-107 [facility] Basophils (Bld) [#/Vol] 8.9 10*3/uL 4.4-11.0 [facility] Basophils (Bld) [#/Vol] 6.0 10*3/uL 2.0-7.7 [facility] Basophils/100 WBC (Bld) 67.6 % 47-70 [facility] Basophils/100 WBC (Bld) 9.8 % 0-10 [facility] Basophils/100 WBC (Bld) 3.2 % 0-5 [facility] Basophils/100 WBC (Bld) 0.1 % 0-1 [facility] Determination of erythrocyte mean corpuscular volume (MCV)Ordered By: Bhavna Andino on 09-29-2023 MCV (RBC) [Entitic vol] 78.5 fL 81-99 [facility] Erythrocyte distribution wid th ratioOrdered By: Bhavna Andino on 09-29-2023 Erythrocyte distribution width (RBC) [Ratio] 18.5 % 11.6-14.6 [facility] Erythrocyte distribution wid th standard deviationOrdered By: Bhavna Andino on 09-29-2023 Erythrocyte distribution width (RBC) [Entitic vol] 52.2 fL 35.1-43.9 [facility] Hematocrit Auto (Bld) [Volum e fraction]Ordered By: Bhavna Andino on 09-29-2023 Hematocrit (Bld) [Volume fraction] 32.9 % 37-47 [facility] Immature granulocytes/100 WB C Auto (Bld)Ordered By: Bhavna Andino on 09-29-2023 Immature granulocytes/100 WBC (Bld) 0.500 % 0.0-0.9 [facility] No Panel InformationOrdered By: Bhavna Andino on 09-29-2023 23.6 pg 27.0-32.0 [facility] 30.1 g/dL 32-36 [facility] 302 K/mm3 150-450 [facility] 9.5 fl 6.2-12.0 [facility] 0 % 0-5 [facility] 83 mL/min >60 [facility] 101 mL/min >60 [facility] 20.8 RATIO 10-20 [facility] 2.1 mg/dL 1.6-2.6 [facility] 28.0 mmol/L 21.0-32.0 [facility] 198 pg/mL 211-911 [facility] 20.9 ng/mL [facility] RBC Auto (Bld) [#/Vol]Ordere d By: Bhavna Andino on 09-29-2023 RBC (Bld) [#/Vol] 4.19 10*6/uL 4.2-5.4 [facility] Serum or plasma calcium gustavo urement (mass/volume)Ordered By: Bhavna Andino on 09-29-2023 Calcium [Mass/Vol] 9.2 mg/dL 8.5-10.1 [facility] Serum or plasma creatinine m easurement (mass/volume)Ordered By: Bhavna Andino on 09-29-2023 Creatinine [Mass/Vol] 0.72 mg/dL 0.55-1.02 [facility] Serum or plasma urea nitroge n measurement (mass/volume)Ordered By: Bhavna Andino on 09-29-2023 Urea nitrogen [Mass/Vol] 15 mg/dL 7-18 [facility] Thin prep Papanicolaou smear with manual screeningOrdered By: Bhavna Andino on 09-29-2023 Thin prep Papanicolaou smear with manual screening 9 5-15 [facility] Whole blood hemoglobin A1c/t otal hemoglobin ratio (mass fraction)Ordered By: Bhavna Andino on 09-29-2023 HbA1c (Bld) [Mass fraction] 5.8 % 3.8-5.6 [facility] Absolute lymphocyte countOrd ered By: Mona Chery on 09-27-2023 Lymphocytes Auto (Unsp spec) [#/Vol] 2.00 10*3/uL 0.83-4.51 [facility] Automated lymphocyte count a s percentage of total leukocytesOrdered By: Mona Chery on 09-27-2023 Lymphocytes/100 WBC Auto (Unsp spec) 20.9 % 19-41 [facility] Basophil percentageOrdered B y: Mona Chery on 09-27-2023 Basophil percentage 10.0 g/dL 12.0-15.0 [facility] Basophil percentage 99 mg/dL 74-106 [facility] Basophil percentage 6.6 g/dL 6.4-8.2 [facility] Basophil percentage 3.4 mg/dL 2.5-4.9 [facility] Basophil percentage 0.60 mg/dL 0.20-1.00 [facility] Basophil percentage 116 mg/dL <200 [facility] Basophil percentage 108 mg/dL <199 [facility] Basophil percentage 138 mmol/L 136-145 [facility] Basophil percentage 3.5 mmol/L 3.5-5.1 [facility] Basophil percentage 105 mmol/L 98-107 [facility] Basophils (Bld) [#/Vol] 9.6 10*3/uL 4.4-11.0 [facility] Basophils (Bld) [#/Vol] 6.2 10*3/uL 2.0-7.7 [facility] Basophils/100 WBC (Bld) 64.8 % 47-70 [facility] Basophils/100 WBC (Bld) 9.8 % 0-10 [facility] Basophils/100 WBC (Bld) 3.8 % 0-5 [facility] Basophils/100 WBC (Bld) 0.3 % 0-1 [facility] Determination of erythrocyte mean corpuscular volume (MCV)Ordered By: Mona Chery on 09-27-2023 MCV (RBC) [Entitic vol] 77.8 fL 81-99 [facility] Erythrocyte distribution wid th ratioOrdered By: Mona Chery on 09-27-2023 Erythrocyte distribution width (RBC) [Ratio] 18.5 % 11.6-14.6 [facility] Erythrocyte distribution wid th standard deviationOrdered By: Mona Chery on 09-27-2023 Erythrocyte distribution width (RBC) [Entitic vol] 51.8 fL 35.1-43.9 [facility] Erythrocyte sedimentation ra teOrdered By: Mona Chery on 09-27-2023 ESR (Bld) [Velocity] 34 mm[facility]h 0[facility] Hematocrit Auto (Bld) [Volum e fraction]Ordered By: Mona Chery on 09-27-2023 Hematocrit (Bld) [Volume fraction] 33.9 % 37-47 [facility] Immature granulocytes/100 WB C Auto (Bld)Ordered By: Mona Chery on 09-27-2023 Immature granulocytes/100 WBC (Bld) 0.400 % 0.0-0.9 [facility] Iron measurement (mass/mass) Ordered By: Mona Chery on 09-27-2023 Iron (Unsp spec) [Mass/Mass] 25 ug/dL 50-170 [facility] No Panel InformationOrdered By: Mona Chery on 09-27-2023 22.9 pg 27.0-32.0 [facility] 29.5 g/dL 32-36 [facility] 291 K/mm3 150-450 [facility] 9.0 fl 6.2-12.0 [facility] 0 % 0-5 [facility] 79 mL/min >60 [facility] 95 mL/min >60 [facility] 67.98 ml/min [facility] 17.2 RATIO 10-20 [facility] 3.8 g/dL 2.2-4.2 [facility] 0.7 RATIO 0.9-2.4 [facility] 67 U/L 45-117 [facility] 21 U/L 13-56 [facility] 2.2 mg/dL 1.6-2.6 [facility] 30.0 mmol/L 21.0-32.0 [facility] 38 mg/dL >40 [facility] 56 mg/dL 0-130 [facility] 22 mg/dL 5-40 [facility] 56.70 mg/L 0.0-3.0 [facility] 342 ug/dL 250-450 [facility] 68 ng/mL 8-252 [facility] RBC Auto (Bld) [#/Vol]Ordere d By: Mona Chery on 09-27-2023 RBC (Bld) [#/Vol] 4.36 10*6/uL 4.2-5.4 [facility] Serum or plasma calcium gustavo urement (mass/volume)Ordered By: Mona Chery on 09-27-2023 Calcium [Mass/Vol] 9.2 mg/dL 8.5-10.1 [facility] Serum or plasma creatinine m easurement (mass/volume)Ordered By: Mona Chery on 09-27-2023 Creatinine [Mass/Vol] 0.75 mg/dL 0.55-1.02 [facility] Serum or plasma iron saturat ion measurement (mass fraction)Ordered By: Mona Chery on 09-27-2023 Iron saturation [Mass fraction] 7.3 % 15.0-55.0 [facility] Serum or plasma thyroid stim ulating hormone (TSH) measurement (units/volume)Ordered By: Mona Chery on 09-27-2023 TSH Qn 4.16 uIU/mL 0.358-3.74 [facility] Serum or plasma urea nitroge n measurement (mass/volume)Ordered By: Mnoa Chery on 09-27-2023 Urea nitrogen [Mass/Vol] 13 mg/dL 7-18 [facility] Thin prep Papanicolaou smear with manual screeningOrdered By: Mona Chery on 09-27-2023 Thin prep Papanicolaou smear with manual screening 2.8 g/dL 3.2-5.0 [facility] Thin prep Papanicolaou smear with manual screening 20 U/L 15-37 [facility] Thin prep Papanicolaou smear with manual screening 3 5-15 [facility] Whole blood hemoglobin A1c/t otal hemoglobin ratio (mass fraction)Ordered By: Mona Chery on 09-27-2023 HbA1c (Bld) [Mass fraction] 6.0 % 3.8-5.6 [facility] Absolute lymphocyte countOrd ered By: oJshua Santiago on 09-26-2023 Lymphocytes Auto (Unsp spec) [#/Vol] 1.66 10*3/uL 0.83-4.51 [facility] Activated partial thrombopla stin time (aPTT) in platelet poor plasma by coagulation aOrdered By: Joshua Santiago on 09-26-2023 aPTT Coag (PPP) [Time] 35.8 s 24.1-36.2 [facility] Automated lymphocyte count a s percentage of total leukocytesOrdered By: Joshua Santiago on 09-26-2023 Lymphocytes/100 WBC Auto (Unsp spec) 12.2 % 19-41 [facility] Basophil percentageOrdered B y: Joshua Santiago on 09-26-2023 Basophil percentage 11.3 g/dL 12.0-15.0 [facility] Basophil percentage 111 mg/dL 74-106 [facility] Basophil percentage 137 mmol/L 136-145 [facility] Basophil percentage 3.1 mmol/L 3.5-5.1 [facility] Basophil percentage 101 mmol/L 98-107 [facility] Basophils (Bld) [#/Vol] 13.6 10*3/uL 4.4-11.0 [facility] Basophils (Bld) [#/Vol] 10.1 10*3/uL 2.0-7.7 [facility] Basophils/100 WBC (Bld) 74.3 % 47-70 [facility] Basophils/100 WBC (Bld) 10.3 % 0-10 [facility] Basophils/100 WBC (Bld) 2.1 % 0-5 [facility] Basophils/100 WBC (Bld) 0.4 % 0-1 [facility] Determination of erythrocyte mean corpuscular volume (MCV)Ordered By: Joshua Santiago on 09-26-2023 MCV (RBC) [Entitic vol] 77.9 fL 81-99 [facility] Erythrocyte distribution wid th ratioOrdered By: Joshua Santiago on 09-26-2023 Erythrocyte distribution width (RBC) [Ratio] 18.6 % 11.6-14.6 [facility] Erythrocyte distribution wid th standard deviationOrdered By: Joshua Santiago on 09-26-2023 Erythrocyte distribution width (RBC) [Entitic vol] 51.7 fL 35.1-43.9 [facility] Hematocrit Auto (Bld) [Volum e fraction]Ordered By: Joshua Santiago on 09-26-2023 Hematocrit (Bld) [Volume fraction] 38.1 % 37-47 [facility] Immature granulocytes/100 WB C Auto (Bld)Ordered By: Joshua Santiago on 09-26-2023 Immature granulocytes/100 WBC (Bld) 0.700 % 0.0-0.9 [facility] No Panel InformationOrdered By: Joshua Santiago on 09-26-2023 23.1 pg 27.0-32.0 [facility] 29.7 g/dL 32-36 [facility] 333 K/mm3 150-450 [facility] 9.2 fl 6.2-12.0 [facility] 0 % 0-5 [facility] 14.8 SECONDS 11.7-14.9 [facility] 1.2 [facility] 66 mL/min >60 [facility] 80 mL/min >60 [facility] 61.25 ml/min [facility] 22.8 RATIO 10-20 [facility] 8 pg/mL 3.0-54.0 [facility] 31.0 mmol/L 21.0-32.0 [facility] RBC Auto (Bld) [#/Vol]Ordere d By: Joshua Santiago on 09-26-2023 RBC (Bld) [#/Vol] 4.89 10*6/uL 4.2-5.4 [facility] Serum or plasma calcium gustavo urement (mass/volume)Ordered By: Joshua Santiago on 09-26-2023 Calcium [Mass/Vol] 9.4 mg/dL 8.5-10.1 [facility] Serum or plasma creatinine m easurement (mass/volume)Ordered By: Joshua Santiago on 09-26-2023 Creatinine [Mass/Vol] 0.88 mg/dL 0.55-1.02 [facility] Serum or plasma urea nitroge n measurement (mass/volume)Ordered By: Joshuajennifer Santiago on 09-26-2023 Urea nitrogen [Mass/Vol] 20 mg/dL 7-18 [facility] Thin prep Papanicolaou smear with manual screeningOrdered By: Joshua Santiago on 09-26-2023 Thin prep Papanicolaou smear with manual screening 5 5-15 [facility] Absolute lymphocyte countOrd ered By: Dilia Best on 08-16-2023 Lymphocytes Auto (Unsp spec) [#/Vol] 1.78 10*3/uL 0.83-4.51 [facility] Automated lymphocyte count a s percentage of total leukocytesOrdered By: Dilia Best on 08-16-2023 Lymphocytes/100 WBC Auto (Unsp spec) 17.2 % 19-41 [facility] Basophil percentageOrdered B y: Dilia Best on 08-16-2023 Basophil percentage 10.2 g/dL 12.0-15.0 [facility] Basophil percentage 104 mg/dL 74-106 [facility] Basophil percentage 138 mmol/L 136-145 [facility] Basophil percentage 4.0 mmol/L 3.5-5.1 [facility] Basophil percentage 107 mmol/L 98-107 [facility] Basophils (Bld) [#/Vol] 10.3 10*3/uL 4.4-11.0 [facility] Basophils (Bld) [#/Vol] 7.1 10*3/uL 2.0-7.7 [facility] Basophils/100 WBC (Bld) 0.4 % 0-1 [facility] Basophils/100 WBC (Bld) 68.3 % 47-70 [facility] Basophils/100 WBC (Bld) 11.5 % 0-10 [facility] Basophils/100 WBC (Bld) 1.9 % 0-5 [facility] Chloride [Moles/Vol] 107 mmol/L 98-107 [facility] Eosinophils/100 WBC (Bld) 1.9 % 0-5 [facility] Glucose [Mass/Vol] 104 mg/dL 74-106 [facility] Comment on above: Fasting Glucose resu lt from 100 to 125 mg/dL suggests IMPAIRED HOMEOSTASIS per A.D.A. criteria. Hemoglobin (Bld) [Mass/Vol] 10.2 g/dL 12.0-15.0 [facility] Monocytes/100 WBC (Bld) 11.5 % 0-10 [facility] Neutrophils (Bld) [#/Vol] 7.1 10*3/uL 2.0-7.7 [facility] Neutrophils/100 WBC (Bld) 68.3 % 47-70 [facility] Potassium [Moles/Vol] 4.0 mmol/L 3.5-5.1 [facility] Sodium [Moles/Vol] 138 mmol/L 136-145 [facility] WBC (Bld) [#/Vol] 10.3 10*3/uL 4.4-11.0 [facility] Determination of erythrocyte mean corpuscular volume (MCV)Ordered By: Dilia Best on 08-16-2023 MCV (RBC) [Entitic vol] 77.9 fL 81-99 [facility] Erythrocyte distribution wid th ratioOrdered By: Dilia Best on 08-16-2023 Erythrocyte distribution width (RBC) [Ratio] 18.5 % 11.6-14.6 [facility] Erythrocyte distribution wid th standard deviationOrdered By: Dilia Best on 08-16-2023 Erythrocyte distribution width (RBC) [Entitic vol] 51.4 fL 35.1-43.9 [facility] Hematocrit Auto (Bld) [Volum e fraction]Ordered By: Dilia Best on 08-16-2023 Hematocrit (Bld) [Volume fraction] 34.8 % 37-47 [facility] Immature granulocytes/100 WB C Auto (Bld)Ordered By: Dilia Best on 08-16-2023 Immature granulocytes/100 WBC (Bld) 0.700 % 0.0-0.9 [facility] Comment on above: IG% - Immature Granu locytes (promyelocytes, myelocytes and metamyelocytes) > 1% indicates that a LEFT SHIFT is Present. Laboratory - Chemistry and C hemistry - challengeOrdered By: Dilia Best on 08-16-2023 CO2 [Moles/Vol] 28.0 mmol/L 21.0-32.0 [facility] Urea nitrogen/Creatinine [Mass ratio] 17.0 mg/mg - [facility] Laboratory - Hematology and Cell countsOrdered By: Dilia Best on 08-16-2023 MCH (RBC) [Entitic mass] 22.8 pg 27.0-32.0 [facility] MCHC (RBC) [Mass/Vol] 29.3 g/dL [facility] Nucleated RBC/100 WBC (Bld) [Ratio] 0 % 0-5 [facility] Platelets (Bld) [#/Vol] 313 10*3/uL 150-450 [facility] No Panel InformationOrdered By: Dilia Best on 08-16-2023 Estimated Creatinine Clearance Calc 48.50 ml/min [facility] Estimated GFR (MDRD) Amer 69 mL/min >60 [facility] Comment on above: GFR Calc Estimated GFR (MDRD) Non-Af Amer 57 mL/min >60 [facility] Comment on above: Non- GFR Calc 22.8 pg 27.0-32.0 [facility] 29.3 g/dL [facility] 313 K/mm3 150-450 [facility] 0 % 0-5 [facility] 57 mL/min >60 [facility] 69 mL/min >60 [facility] 48.50 ml/min [facility] 17.0 RATIO 05-13 [facility] 28.0 mmol/L 21.0-32.0 [facility] Platelet mean volume Ariel-Ec ker (Bld) [Entitic vol]Ordered By: Dilia eBst on 08-16-2023 Platelet mean volume (Bld) [Entitic vol] 9.1 fL 6.2-12.0 [facility] RBC Auto (Bld) [#/Vol]Ordere d By: Dilia Best on 08-16-2023 RBC (Bld) [#/Vol] 4.47 10*6/uL 4.2-5.4 [facility] Serum or plasma calcium gustavo urement (mass/volume)Ordered By: Dilia Best on 08-16-2023 Calcium [Mass/Vol] 9.4 mg/dL 8.5-10.1 [facility] Serum or plasma creatinine m easurement (mass/volume)Ordered By: Dilia Best on 08-16-2023 Creatinine [Mass/Vol] 1.00 mg/dL 0.55-1.02 [facility] Comment on above: The validity of the calculated GFR & GFRAA in patients over 70 years has not been determined. Clinical correlation is essential. Serum or plasma urea nitroge n measurement (mass/volume)Ordered By: Dilia Best on 08-16-2023 Urea nitrogen [Mass/Vol] 17 mg/dL 7-18 [facility] Thin prep Papanicolaou smear with manual screeningOrdered By: Dilia Best on 08-16-2023 Thin prep Papanicolaou smear with manual screening 3 5-15 [facility] Serum or plasma trough vanco mycin levelOrdered By: Felipe Cordoba on 08-15-2023 Vancomycin trough [Mass/Vol] 19.4 ug/mL 5.0-15.0 [facility] Comment on above: VANCOMYCIN STANDARED DRUG THERAPY TROUGH LEVEL: 5.0 - 15.0 mg/L VANCOMYCIN HIGH INTENSITY THERAPY TROUGH LEVEL: 15.0 - 20.0 mg/L High Intensity therapy recommended for serious lifethreatening infections include:- Fhwyewuanu-Futgmqiigblf-Onfqadgmh (Ventilator/Healtcare Associated)-Sepsis PLEASE CONTACT PHARMACY SERVICES (#[id number]) FOR INTERPRETATIONOF RESULTS. Basophil percentageOrdered B y: Felipe Cordoba on 08-14-2023 Basophil percentage 3.2 mg/dL 2.5-4.9 [facility] Basophil percentage 6.6 g/dL 6.4-8.2 [facility] Basophil percentage 0.80 mg/dL 0.20-1.00 [facility] Bilirubin [Mass/Vol] 0.80 mg/dL 0.20-1.00 [facility] Comment on above: For patients on eltr ombopag therapy, use of Dimension [place] TBIL is not recommended. Protein [Mass/Vol] 6.6 g/dL 6.4-8.2 [facility] Blood manual differential co mment interpretation (narrative result)Ordered By: Felipe Cordoba on 08-14-2023 Manual differential comment Ray (Bld) [Interp] SCANNED [facility] Laboratory - Chemistry and C hemistry - challengeOrdered By: Felipe Cordoba on 08-14-2023 Albumin/Globulin [Mass ratio] 0.7 {ratio} 0.9-2.4 [facility] ALP [Catalytic activity/Vol] 60 U/L 45-117 [facility] ALT [Catalytic activity/Vol] 15 U/L 13-56 [facility] Globulin (S) [Mass/Vol] 3.8 g/dL 2.2-4.2 [facility] Magnesium [Mass/Vol] 2.2 mg/dL 1.6-2.6 [facility] No Panel InformationOrdered By: Felipe Cordoba on 08-14-2023 3.8 g/dL 2.2-4.2 [facility] 0.7 RATIO 0.9-2.4 [facility] 60 U/L 45-117 [facility] 15 U/L - [facility] 2.2 mg/dL 1.6-2.6 [facility] Review by pathologistOrdered By: Felipe Cordoba on 08-14-2023 Pathologist review Ray (Unsp spec) [Interp] Reviewed [facility] Comment on above: Previous reported re sult: Aubree lion Edited by: [email or web address] on 08/15/23:1427Leukocytosis.Microcytic anemia.Clinical correlation necessary.Aaron Sloan M.D. 08/15/23 AMENDED REPORT 08/15/23 1427 PATH REV previously reported as: Aubree lion Serum or plasma thyroid stim ulating hormone (TSH) measurement (units/volume)Ordered By: Felipe Cordoba on 08-14-2023 TSH Qn 3.30 uIU/mL 0.358-3.74 [facility] Thin prep Papanicolaou smear with manual screeningOrdered By: Felipe Cordoba on 08-14-2023 Thin prep Papanicolaou smear with manual screening 2.8 g/dL 3.2-5.0 [facility] Thin prep Papanicolaou smear with manual screening 14 U/L 15-37 [facility] Absolute lymphocyte countOrd ered By: Kelle Foster on 08-13-2023 Lymphocytes Auto (Unsp spec) [#/Vol] 1.50 10*3/uL 0.83-4.51 [facility] Automated lymphocyte count a s percentage of total leukocytesOrdered By: Kelle Foster on 08-13-2023 Lymphocytes/100 WBC Auto (Unsp spec) 9.8 % 19-41 [facility] Bacteria identified Cx Nom ( U)Ordered By: Kelle Foster on 08-13-2023 Culture, urine Lactobacillus gasseri [facility] Culture, urine Lactobacillus gasseri [facility] Basophil percentageOrdered B y: Kelle Foster on 08-13-2023 Basophil percentage 5-10 SEEN /hpf 0-5 [facility] Basophils/100 WBC (Bld) 0.3 % 0-1 [facility] Chloride [Moles/Vol] 100 mmol/L 98-107 [facility] Eosinophils/100 WBC (Bld) 0.4 % 0-5 [facility] Glucose [Mass/Vol] 127 mg/dL 74-106 [facility] Comment on above: Fasting Glucose resu lt greater than or equal to 126 mg/dL suggests DIABETES MELLITUS per A.D.A. criteria. Hemoglobin (Bld) [Mass/Vol] 11.2 g/dL 12.0-15.0 [facility] Monocytes/100 WBC (Bld) 11.6 % 0-10 [facility] Neutrophils (Bld) [#/Vol] 11.8 10*3/uL 2.0-7.7 [facility] Neutrophils/100 WBC (Bld) 77.3 % 47-70 [facility] Potassium [Moles/Vol] 3.0 mmol/L 3.5-5.1 [facility] Sodium [Moles/Vol] 135 mmol/L 136-145 [facility] WBC (Bld) [#/Vol] 15.2 10*3/uL 4.4-11.0 [facility] Bilirubin Test strip Ql (U)O rdered By: Kelle Foster on 08-13-2023 Bilirubin Ql (U) 3 mg/dL Negative [facility] Comment on above: COLOR OF URINE MAY A FFECT DIPSTICK RESULTS. Blood manual differential co mment interpretation (narrative result)Ordered By: Kelle Foster on 08-13-2023 Manual differential comment Ray (Bld) [Interp] SCANNED [facility] Comment on above: MONOCYTOSIS NOTED Culture, urineOrdered By: John Foster on 08-13-2023 Bacteria identified Cx Nom (U) Lactobacillus gasseri [facility] Determination of erythrocyte mean corpuscular volume (MCV)Ordered By: Kelle Foster on 08-13-2023 MCV (RBC) [Entitic vol] 78.6 fL [address] [facility] Erythrocyte distribution wid th ratioOrdered By: Kelle Foster on 08-13-2023 Erythrocyte distribution width (RBC) [Ratio] 18.5 % 11.6-14.6 [facility] Erythrocyte distribution wid th standard deviationOrdered By: Kelle Foster on 08-13-2023 Erythrocyte distribution width (RBC) [Entitic vol] 52.9 fL 35.1-43.9 [facility] Hematocrit Auto (Bld) [Volum e fraction]Ordered By: eKlle Foster on 08-13-2023 Hematocrit (Bld) [Volume fraction] 38.6 % 37-47 [facility] Immature granulocytes/100 WB C Auto (Bld)Ordered By: Kelle Foster on 08-13-2023 Immature granulocytes/100 WBC (Bld) 0.600 % 0.0-0.9 [facility] Comment on above: IG% - Immature Granu locytes (promyelocytes, myelocytes and metamyelocytes) > 1% indicates that a LEFT SHIFT is Present. Ketones Test strip Ql (U)Ord ered By: Kelle Foster on 08-13-2023 Ketones Ql (U) 5 mg/dl Negative [facility] Laboratory - Chemistry and C hemistry - challengeOrdered By: Kelle Foster on 08-13-2023 CO2 [Moles/Vol] 28.0 mmol/L 21.0-32.0 [facility] Natriuretic peptide B (Bld) [Mass/Vol] 90.4 pg/mL 0-100 [facility] Urea nitrogen/Creatinine [Mass ratio] 13.1 mg/mg 10-20 [facility] Laboratory - Hematology and Cell countsOrdered By: Kelle Foster on 08-13-2023 MCH (RBC) [Entitic mass] 22.8 pg 27.0-32.0 [facility] MCHC (RBC) [Mass/Vol] 29.0 g/dL 32-36 [facility] Nucleated RBC/100 WBC (Bld) [Ratio] 0 % 0-5 [facility] Platelets (Bld) [#/Vol] 335 10*3/uL 150-450 [facility] Mucus LM Ql (Urine sed)Order ed By: Kelle Foster on 08-13-2023 Mucus Ql (Urine sed) 1+ /hpf [facility] Nitrite Test strip Ql (U)Ord ered By: Kelle Foster on 08-13-2023 Nitrite Ql (U) Negative Negative [facility] No Panel InformationOrdered By: Kelle Foster on 08-13-2023 D-Dimer Quantitative (PE/DVT) 1.47 FEU/ug/m 0.27-0.49 [facility] Comment on above: D-Dimer ELEVATED (>0 .49): Additional studies and clinicalassessments are indicated to conclude diagnosis of:Deep Vein Thrombosis (DVT) or Pulmonary Embolism (PE)CRITICAL VALUE VERIFIED. CALLED TO [id number] Gwendolyn Braga.RESULTS READ BACK BY SAME . 1.47 FEU/ug/m 0.27-0.49 [facility] Urine RBC 0-5 SEEN /hpf 0-5 [facility] 0-5 SEEN /hpf 0-5 [facility] Estimated Creatinine Clearance Calc 55.85 ml/min [facility] Estimated GFR (MDRD) Amer 70 mL/min >60 [facility] Comment on above: GFR Calc Estimated GFR (MDRD) Non-Af Amer 58 mL/min >60 [facility] Comment on above: Non- GFR Calc 90.4 pg/mL 0-100 [facility] Platelet mean volume Ariel-Ec ker (Bld) [Entitic vol]Ordered By: Kelle Foster on 08-13-2023 Platelet mean volume (Bld) [Entitic vol] 8.7 fL 6.2-12.0 [facility] Protein Test strip Ql (U)Ord ered By: Kelle Foster on 08-13-2023 Protein Ql (U) 30 mg/dl Negative [facility] RBC Auto (Bld) [#/Vol]Ordere d By: Kelle Foster on 08-13-2023 RBC (Bld) [#/Vol] 4.91 10*6/uL 4.2-5.4 [facility] Review by pathologistOrdered By: Kelle Foster on 08-13-2023 Pathologist review Ray (Unsp spec) [Interp] May foll [facility] Serum or plasma calcium gustavo urement (mass/volume)Ordered By: Kelle Foster on 08-13-2023 Calcium [Mass/Vol] 9.7 mg/dL 8.5-10.1 [facility] Serum or plasma creatinine m easurement (mass/volume)Ordered By: Kelle Foster on 08-13-2023 Creatinine [Mass/Vol] 0.99 mg/dL 0.55-1.02 [facility] Comment on above: The validity of the calculated GFR & GFRAA in patients over 70 years has not been determined. Clinical correlation is essential. Serum or plasma urea nitroge n measurement (mass/volume)Ordered By: Kelle Foster on 08-13-2023 Urea nitrogen [Mass/Vol] 13 mg/dL 7-18 [facility] Serum or plasma uric acid me asurement (mass/volume)Ordered By: Kelle Foster on 08-13-2023 Urate [Mass/Vol] 5.8 mg/dL 2.6-6.0 [facility] Comment on above: The drugs N-Acetylcy steine and Metamizole may falsely depress this assay. Squamous epithelial cells de tection in urine sediment by light microscopyOrdered By: Kelle Foster on 08-13-2023 Epithelial cells.squamous LM Ql (Urine sed) 0-5 SEEN /hpf 5-10 [facility] Thin prep Papanicolaou smear with manual screeningOrdered By: Kelle Foster on 08-13-2023 Thin prep Papanicolaou smear with manual screening 7 5-15 [facility] Urine blood detectionOrdered By: Kelle Foster on 08-13-2023 RBC Ql (U) 50 /ul Negative [facility] Urine clarityOrdered By: Lizett Foster on 08-13-2023 Clarity (U) Sl. Cloudy Clear [facility] Urine color determinationOrd ered By: Kelle Foster on 08-13-2023 Color (U) Tram Yellow [facility] Urine glucose detectionOrder ed By: Kelle Foster on 08-13-2023 Glucose Ql (U) Normal mg/dl Normal [facility] Urine leukocyte esterase det ection by dipstickOrdered By: Klele Foster on 08-13-2023 Leukocyte esterase Test strip Ql (U) 100 /ul Negative [facility] Urine pHOrdered By: Kelle Foster on 08-13-2023 pH (U) 5.0 [pH] 5.0 - 8.0 [facility] Urine sediment bacteria coun t by microscopy (number/high power field)Ordered By: Kelle Foster on 08-13-2023 Bacteria LM.HPF (Urine sed) [#/Area] RARE /hpf None Seen [facility] Urine specific gravity measu rementOrdered By: Kelle Foster on 08-13-2023 Specific gravity (U) [Rel density] 1.020 1.002-1.030 [facility] Urine urobilinogen measureme ntOrdered By: Kelle Foster on 08-13-2023 Urobilinogen Ql (U) 1 mg/dl Normal [facility] Absolute lymphocyte countOrd ered By: Moon Rayo on 08-01-2023 Lymphocytes Auto (Unsp spec) [#/Vol] 1.72 10*3/uL 0.83-4.51 [facility] Basophil percentageOrdered B y: Moon Rayo on 08-01-2023 Basophil percentage 106 mg/dL 74-106 [facility] Basophil percentage 7.5 g/dL 6.4-8.2 [facility] Basophil percentage 0.70 mg/dL 0.20-1.00 [facility] Basophil percentage 141 mg/dL <200 [facility] Basophil percentage 117 mg/dL <199 [facility] Basophil percentage 141 mmol/L 136-145 [facility] Basophil percentage 3.6 mmol/L 3.5-5.1 [facility] Basophil percentage 105 mmol/L 98-107 [facility] Basophils (Bld) [#/Vol] 10.0 10*3/uL 4.4-11.0 [facility] Basophils (Bld) [#/Vol] 7.1 10*3/uL 2.0-7.7 [facility] Basophils/100 WBC (Bld) 0.6 % 0-1 [facility] Basophils/100 WBC (Bld) 70.9 % 47-70 [facility] Basophils/100 WBC (Bld) 2.5 % 0-5 [facility] Bilirubin [Mass/Vol] 0.70 mg/dL 0.20-1.00 [facility] Comment on above: For patients on eltr ombopag therapy, use of Dimension [place] TBIL is not recommended. Chloride [Moles/Vol] 105 mmol/L 98-107 [facility] Cholesterol [Mass/Vol] 141 mg/dL <200 [facility] Comment on above: <200 mg/dL Desirable 200-240 mg/dL Borderline >240 mg/dL High Risk Eosinophils/100 WBC (Bld) 2.5 % 0-5 [facility] Glucose [Mass/Vol] 106 mg/dL 74-106 [facility] Comment on above: Fasting Glucose resu lt from 100 to 125 mg/dL suggests IMPAIRED HOMEOSTASIS per A.D.A. criteria. Neutrophils (Bld) [#/Vol] 7.1 10*3/uL 2.0-7.7 [facility] Neutrophils/100 WBC (Bld) 70.9 % 47-70 [facility] Potassium [Moles/Vol] 3.6 mmol/L 3.5-5.1 [facility] Protein [Mass/Vol] 7.5 g/dL 6.4-8.2 [facility] Sodium [Moles/Vol] 141 mmol/L 136-145 [facility] Triglyceride [Mass/Vol] 117 mg/dL <199 [facility] Comment on above: The drugs N-Acetylcy steine and Metamizole may falsely depress this assay.Serum Triglycerides Reference Interval Normal <150 mg/dL Borderline high 150 - 199 mg/dL High 200 - 499 mg/dL Very High > or = 500 mg/dL WBC (Bld) [#/Vol] 10.0 10*3/uL 4.4-11.0 [facility] Blood erythrocytes count (nu mber/volume)Ordered By: Moon Rayo on 08-01-2023 RBC (Bld) [#/Vol] 5.11 10*6/uL 4.2-5.4 [facility] Blood hemoglobin measurement (mass/volume)Ordered By: Moon Rayo on 08-01-2023 Hemoglobin (Bld) [Mass/Vol] 11.7 g/dL 12.0-15.0 [facility] Blood lymphocytes/100 leukoc ytesOrdered By: Moon Rayo on 08-01-2023 Lymphocytes/100 WBC (Bld) 17.1 % 19-41 [facility] Blood monocytes/100 leukocyt esOrdered By: Moon Rayo on 08-01-2023 Monocytes/100 WBC (Bld) 8.2 % 0-10 [facility] Blood platelet mean volumeOr dered By: Moon Rayo on 08-01-2023 Platelet mean volume (Bld) [Entitic vol] 9.2 fL 6.2-12.0 [facility] Determination of erythrocyte mean corpuscular volume (MCV)Ordered By: Moon Rayo on 08-01-2023 MCV (RBC) [Entitic vol] 80.4 fL 81-99 [facility] Erythrocyte sedimentation ra teOrdered By: Moon Ryao on 08-01-2023 ESR (Bld) [Velocity] 28 mm/h 0-30 [facility] Hematocrit Auto (Bld) [Volum e fraction]Ordered By: Moon Rayo on 08-01-2023 Hematocrit (Bld) [Volume fraction] 41.1 % 37-47 [facility] Iron measurement (mass/mass) Ordered By: Moon Rayo on 08-01-2023 Iron (Unsp spec) [Mass/Mass] 32 ug/dL 50-170 [facility] Laboratory - Chemistry and C hemistry - challengeOrdered By: Moon Rayo on 08-01-2023 ALP [Catalytic activity/Vol] 80 U/L 45-117 [facility] ALT [Catalytic activity/Vol] 36 U/L 13-56 [facility] CO2 [Moles/Vol] 30.0 mmol/L 21.0-32.0 [facility] Globulin (S) [Mass/Vol] 4.1 g/dL 2.2-4.2 [facility] Magnesium [Mass/Vol] 2.4 mg/dL 1.6-2.6 [facility] Urea nitrogen/Creatinine [Mass ratio] 23.8 mg/mg 10-20 [facility] Laboratory - Hematology and Cell countsOrdered By: Moon Rayo on 08-01-2023 Erythrocyte distribution width (RBC) [Entitic vol] 54.5 fL 35.1-43.9 [facility] Erythrocyte distribution width (RBC) [Ratio] 18.9 % 11.6-14.6 [facility] Immature granulocytes/100 WBC (Bld) 0.700 % 0.0-0.9 [facility] Comment on above: IG% - Immature Granu locytes (promyelocytes, myelocytes and metamyelocytes) > 1% indicates that a LEFT SHIFT is Present. MCH (RBC) [Entitic mass] 22.9 pg 27.0-32.0 [facility] Nucleated RBC/100 WBC (Bld) [Ratio] 0 % 0-5 [facility] MCHC Auto (RBC) [Mass/Vol]Or dered By: Moon Rayo on 08-01-2023 MCHC (RBC) [Mass/Vol] 28.5 g/dL 32-36 [facility] No Panel InformationOrdered By: Moon Rayo on 08-01-2023 Estimated GFR (MDRD) Amer 89 mL/min >60 [facility] Comment on above: GFR Calc Estimated GFR (MDRD) Non-Af Amer 74 mL/min >60 [facility] Comment on above: Non- GFR Calc Thyroid Stimulating Hormone (TSH) 2.10 uIU/mL 0.358-3.74 [facility] Total Iron Binding Capacity 413 ug/dL 250-450 [facility] Vitamin D 25-Hydroxy 29.1 ng/mL [facility] Comment on above: Vitamin D 25(OH) Sta tus Range Deficiency <20 ng/mL (50nmol/L) Insufficiency 20 - 30 ng/mL (50 - 75 nmol/L) Sufficiency 30 - 100 ng/mL (75 - 250 nmol/L) Toxicity >100 ng/mL (>250 nmol/L) 22.9 pg 27.0-32.0 [facility] 18.9 % 11.6-14.6 [facility] 54.5 fl 35.1-43.9 [facility] 0.700 % 0.0-0.9 [facility] 0 % 0-5 [facility] 74 mL/min >60 [facility] 89 mL/min >60 [facility] 23.8 RATIO 10-20 [facility] 4.1 g/dL 2.2-4.2 [facility] 80 U/L 45-117 [facility] 36 U/L 13-56 [facility] 2.4 mg/dL 1.6-2.6 [facility] 30.0 mmol/L 21.0-32.0 [facility] 2.10 uIU/mL 0.358-3.74 [facility] 413 ug/dL 250-450 [facility] 29.1 ng/mL [facility] Platelets bldOrdered By: Carol Rayo on 08-01-2023 Platelets (Bld) [#/Vol] 418 10*3/uL 150-450 [facility] Serum or plasma albumin gustavo urement (mass/volume)Ordered By: Moon Rayo on 08-01-2023 Albumin [Mass/Vol] 3.4 g/dL 3.2-5.0 [facility] Serum or plasma albumin/glob ulin mass ratioOrdered By: Moon Rayo on 08-01-2023 Albumin/Globulin [Mass ratio] 0.8 {ratio} 0.9-2.4 [facility] Serum or plasma calcium gustavo urement (mass/volume)Ordered By: Moon Rayo on 08-01-2023 Calcium [Mass/Vol] 9.5 mg/dL 8.5-10.1 [facility] Serum or plasma cholesterol in HDL measurement (mass/volume)Ordered By: Moon Rayo on 08-01-2023 Cholesterol in HDL [Mass/Vol] 45 mg/dL >40 [facility] Comment on above: The drugs N-Acetylcy steine and Metamizole may falsely depress this assay. Reference Range HDL <40 mg/dL Low HDL Cholesterol HDL >or= 60 mg/dL High HDL Cholesterol Serum or plasma cholesterol in VLDL measurement (mass/volume)Ordered By: Moon Rayo on 08-01-2023 Cholesterol in VLDL [Mass/Vol] 23 mg/dL 5-40 [facility] Serum or plasma creatinine m easurement (mass/volume)Ordered By: Moon Rayo on 08-01-2023 Creatinine [Mass/Vol] 0.80 mg/dL 0.55-1.02 [facility] Comment on above: The validity of the calculated GFR & GFRAA in patients over 70 years has not been determined. Clinical correlation is essential. Serum or plasma iron saturat ion measurement (mass fraction)Ordered By: Moon Rayo on 08-01-2023 Iron saturation [Mass fraction] 7.7 % 15.0-55.0 [facility] Serum or plasma low density lipoprotein (LDL) cholesterol measurement (mass/volume)Ordered By: Moon Rayo on 08-01-2023 Cholesterol in LDL [Mass/Vol] 73 mg/dL 0-130 [facility] Serum or plasma urea nitroge n measurement (mass/volume)Ordered By: Moon Rayo on 08-01-2023 Urea nitrogen [Mass/Vol] 19 mg/dL 7-18 [facility] Serum or plasma uric acid me asurement (mass/volume)Ordered By: Moon Rayo on 08-01-2023 Urate [Mass/Vol] 5.7 mg/dL 2.6-6.0 [facility] Comment on above: The drugs N-Acetylcy steine and Metamizole may falsely depress this assay. Thin prep Papanicolaou smear with manual screeningOrdered By: Moon Rayo on 08-01-2023 Thin prep Papanicolaou smear with manual screening 41 U/L 15-37 [facility] Thin prep Papanicolaou smear with manual screening 6 5-15 [facility] Absolute lymphocyte counton 07-15-2022 Lymphocytes Auto (Unsp spec) [#/Vol] 2.12 10*3/uL 0.83-4.51 [facility] Work Phone: Basophil percentageon 2021 Basophils/100 WBC (Bld) 0.3 % 0-1 [facility] Work Phone: Bilirubin [Mass/Vol] 0.40 mg/dL 0.20-1.00 [facility] Work Phone: Comment on above: For patients on eltr ombopag therapy, use of Dimension [place] TBIL is not recommended. Chloride [Moles/Vol] 102 mmol/L 98-107 [facility] Work Phone: Eosinophils/100 WBC (Bld) 1.6 % 0-5 [facility] Work Phone: [phone] Glucose [Mass/Vol] 83 mg/dL 74-106 [facility] Work Phone: Neutrophils (Bld) [#/Vol] 9.2 10*3/uL 2.0-7.7 [facility] Work Phone: Neutrophils/100 WBC (Bld) 72.2 % 47-70 [facility] Work Phone: Potassium [Moles/Vol] 3.8 mmol/L 3.5-5.1 [facility] Work Phone: [phone] Protein [Mass/Vol] 7.6 g/dL 6.4-8.2 [facility] Work Phone: Sodium [Moles/Vol] 137 mmol/L 136-145 [facility] Work Phone: WBC (Bld) [#/Vol] 12.7 10*3/uL 4.4-11.0 [facility] Work Phone: Blood erythrocytes count (nu mber/volume)on 07-15-2022 RBC (Bld) [#/Vol] 4.89 10*6/uL 4.2-5.4 [facility] Work Phone: Blood hemoglobin measurement (mass/volume)on 07-15-2022 Hemoglobin (Bld) [Mass/Vol] 12.0 g/dL 12.0-15.0 [facility] Work Phone: Blood lymphocytes/100 leukoc yteson 07-15-2022 Lymphocytes/100 WBC (Bld) 16.7 % 19-41 [facility] Work Phone: Blood monocytes/100 leukocyt eson 07-15-2022 Monocytes/100 WBC (Bld) 8.3 % 0-10 [facility] Work Phone: Blood platelet mean volumeon 07-15-2022 Platelet mean volume (Bld) [Entitic vol] 9.7 fL 6.2-12.0 [facility] Work Phone: Determination of erythrocyte mean corpuscular volume (MCV)on 07-15-2022 MCV (RBC) [Entitic vol] 83.4 fL 81-99 [facility] Work Phone: Hematocrit Auto (Bld) [Volum e fraction]on 07-15-2022 Hematocrit (Bld) [Volume fraction] 40.8 % 37-47 [facility] Work Phone: Laboratory - Chemistry and C hemistry - challengeon 07-15-2022 ALP [Catalytic activity/Vol] 73 U/L 45-117 [facility] Work Phone: ALT [Catalytic activity/Vol] 56 U/L 13-56 [facility] Work Phone: CO2 [Moles/Vol] 31.0 mmol/L 21.0-32.0 [facility] Work Phone: Globulin (S) [Mass/Vol] 3.9 g/dL 2.2-4.2 [facility] Work Phone: Magnesium [Mass/Vol] 2.3 mg/dL 1.6-2.6 [facility] Work Phone: Urea nitrogen/Creatinine [Mass ratio] 25.8 mg/mg 10-20 [facility] Work Phone: Laboratory - Hematology and Cell countson 07-15-2022 Erythrocyte distribution width (RBC) [Entitic vol] 51.7 fL 35.1-43.9 [facility] Work Phone: Erythrocyte distribution width (RBC) [Ratio] 17.1 % 11.6-14.6 [facility] Work Phone: Immature granulocytes/100 WBC (Bld) 0.900 % 0.0-0.9 [facility] Work Phone: Comment on above: IG% - Immature Granu locytes (promyelocytes, myelocytes and metamyelocytes) > 1% indicates that a LEFT SHIFT is Present. MCH (RBC) [Entitic mass] 24.5 pg 27.0-32.0 [facility] Work Phone: Nucleated RBC/100 WBC (Bld) [Ratio] 0 % 0-5 [facility] Work Phone: MCHC Auto (RBC) [Mass/Vol]on 07-15-2022 MCHC (RBC) [Mass/Vol] 29.4 g/dL 32-36 [facility] Work Phone: No Panel Informationon 07-15 Estimated GFR (MDRD) Amer 98 mL/min >60 [facility] Work Phone: Comment on above: GFR Calc Estimated GFR (MDRD) Non-Af Amer 81 mL/min >60 [facility] Work Phone: Comment on above: Non- GFR Calc Thyroid Stimulating Hormone (TSH) 3.39 uIU/mL 0.358-3.74 [facility] Work Phone: Vitamin D 25-Hydroxy 20.0 ng/mL [facility] Work Phone: Comment on above: Vitamin D 25(OH) Sta tus Range Deficiency <20 ng/mL (50nmol/L) Insufficiency 20 - 30 ng/mL (50 - 75 nmol/L) Sufficiency 30 - 100 ng/mL (75 - 250 nmol/L) Toxicity >100 ng/mL (>250 nmol/L) Platelets bldon 07-15-2022 Platelets (Bld) [#/Vol] 325 10*3/uL 150-450 [facility] Work Phone: Serum or plasma albumin gustavo urement (mass/volume)on 07-15-2022 Albumin [Mass/Vol] 3.7 g/dL 3.2-5.0 [facility] Work Phone: Serum or plasma albumin/glob ulin mass ratioon 07-15-2022 Albumin/Globulin [Mass ratio] 0.9 {ratio} 0.9-2.4 [facility] Work Phone: Serum or plasma calcium gustavo urement (mass/volume)on 07-15-2022 Calcium [Mass/Vol] 9.4 mg/dL 8.5-10.1 [facility] Work Phone: Serum or plasma creatinine m easurement (mass/volume)on 07-15-2022 Creatinine [Mass/Vol] 0.74 mg/dL 0.55-1.02 [facility] Work Phone: Comment on above: The validity of the calculated GFR & GFRAA in patients over 70 years has not been determined. Clinical correlation is essential. Serum or plasma urea nitroge n measurement (mass/volume)on 07-15-2022 Urea nitrogen [Mass/Vol] 19 mg/dL 7-18 [facility] Work Phone: Thin prep Papanicolaou smear with manual screeningon 07-15-2022 Thin prep Papanicolaou smear with manual screening 46 U/L 15-37 [facility] Work Phone: Thin prep Papanicolaou smear with manual screening 4 5-15 [facility] Work Phone: Absolute lymphocyte counton 12-14-2021 Lymphocytes Auto (Unsp spec) [#/Vol] 0.91 10*3/uL 0.83-4.51 [facility] Work Phone: [phone] Basophil percentageon 2021 Basophil percentage 5-10 SEEN /hpf [facility] Work Phone: Basophils/100 WBC (Bld) 0.4 % 0-1 [facility] Work Phone: Bilirubin [Mass/Vol] 0.20 mg/dL 0.20-1.00 [facility] Work Phone: Comment on above: For patients on eltr ombopag therapy, use of Dimension [place] TBIL is not recommended. Chloride [Moles/Vol] 110 mmol/L 98-107 [facility] Work Phone: Eosinophils/100 WBC (Bld) 1.3 % 0-5 [facility] Work Phone: Glucose [Mass/Vol] 125 mg/dL 74-106 [facility] Work Phone: Comment on above: Fasting Glucose resu lt from 100 to 125 mg/dL suggests IMPAIRED HOMEOSTASIS per A.D.A. criteria. Neutrophils (Bld) [#/Vol] 5.0 10*3/uL 2.0-7.7 [facility] Work Phone: Neutrophils/100 WBC (Bld) 70.1 % 47-70 [facility] Work Phone: Potassium [Moles/Vol] 2.5 mmol/L 3.5-5.1 [facility] Work Phone: Comment on above: Slight Hemolysis, Re sult may be falsely increased. Critical Result(s) Called at: 15:44:42 12/14/2021 by: Jackson Núñez RN (ER). Results read back by same. Protein [Mass/Vol] 6.9 g/dL 6.4-8.2 [facility] Work Phone: Sodium [Moles/Vol] 139 mmol/L 136-145 [facility] Work Phone: WBC (Bld) [#/Vol] 7.1 10*3/uL 4.4-11.0 [facility] Work Phone: Bilirubin Test strip Ql (U)o n 12-14-2021 Bilirubin Ql (U) Negative Negative [facility] Work Phone: Blood erythrocytes count (nu mber/volume)on 12-14-2021 RBC (Bld) [#/Vol] 5.48 10*6/uL 4.2-5.4 [facility] Work [facility]: Blood hemoglobin measurement (mass/volume)on 12-14-2021 Hemoglobin (Bld) [Mass/Vol] 14.4 g/dL 12.0-15.0 [facility] Work Phone: Blood lymphocytes/100 leukoc yteson 12-14-2021 Lymphocytes/100 WBC (Bld) 12.8 % 19-41 [facility] Work Phone: Blood monocytes/100 leukocyt eson 12-14-2021 Monocytes/100 WBC (Bld) 14.7 % 0-10 [facility] Work Phone: Blood platelet mean volumeon 12-14-2021 Platelet mean volume (Bld) [Entitic vol] 9.7 fL 6.2-12.0 [facility] Work Phone: Determination of erythrocyte mean corpuscular volume (MCV)on 12-14-2021 MCV (RBC) [Entitic vol] 84.3 fL 81-99 [facility] Work Phone: Hematocrit Auto (Bld) [Volum e fraction]on 12-14-2021 Hematocrit (Bld) [Volume fraction] 46.2 % 37-47 [facility] Work Phone: Ketones Test strip Ql (U)on 12-14-2021 Ketones Ql (U) Negative Negative [facility] Work Phone: Laboratory - Chemistry and C hemistry - challengeon 12-14-2021 ALP [Catalytic activity/Vol] 68 U/L 45-117 [facility] Work Phone: ALT [Catalytic activity/Vol] 185 U/L 13-56 [facility] Work Phone: CO2 [Moles/Vol] 18.0 mmol/L 21.0-32.0 [facility] Work Phone: [phone] Globulin (S) [Mass/Vol] 3.6 g/dL 2.2-4.2 [facility] Work Phone: [phone] Lipase [Catalytic activity/Vol] 85 U/L 73-393 [facility] Work Phone: [phone] Urea nitrogen/Creatinine [Mass ratio] 26.7 mg/mg 10-20 [facility] Work Phone: Laboratory - Hematology and Cell countson 12-14-2021 Erythrocyte distribution width (RBC) [Entitic vol] 50.9 fL 35.1-43.9 [facility] Work Phone: Erythrocyte distribution width (RBC) [Ratio] 16.5 % 11.6-14.6 [facility] Work Phone: Immature granulocytes/100 WBC (Bld) 0.700 % 0.0-0.9 [facility] Work Phone: Comment on above: IG% - Immature Granu locytes (promyelocytes, myelocytes and metamyelocytes) > 1% indicates that a LEFT SHIFT is Present. MCH (RBC) [Entitic mass] 26.3 pg 27.0-32.0 [facility] Work Phone: Nucleated RBC/100 WBC (Bld) [Ratio] 0 % 0-5 [facility] Work Phone: MCHC Auto (RBC) [Mass/Vol]on 12-14-2021 MCHC (RBC) [Mass/Vol] 31.2 g/dL 32-36 [facility] Work Phone: Mucus LM Ql (Urine sed)on Mucus Ql (Urine sed) 0 SEEN /hpf [facility] Work Phone: Nitrite Test strip Ql (U)on 12-14-2021 Nitrite Ql (U) Negative Negative [facility] Work Phone: No Panel Informationon 12-14 Estimated Creatinine Clearance Calc 34.44 ml/min [facility] Work Phone: Estimated GFR (MDRD) Amer 56 mL/min >60 [facility] Work Phone: Comment on above: GFR Calc Estimated GFR (MDRD) Non-Af Amer 46 mL/min >60 [facility] Work Phone: Comment on above: Non- GFR Calc Platelets bldon 12-14-2021 Platelets (Bld) [#/Vol] 257 10*3/uL 150-450 [facility] Work Phone: Protein Test strip Ql (U)on 12-14-2021 Protein Ql (U) 30 mg/dl Negative [facility] Work Phone: Serum or plasma albumin gustavo urement (mass/volume)on 12-14-2021 Albumin [Mass/Vol] 3.3 g/dL 3.2-5.0 [facility] Work Phone: Serum or plasma albumin/glob ulin mass ratioon 12-14-2021 Albumin/Globulin [Mass ratio] 0.9 {ratio} 0.9-2.4 [facility] Work Phone: Serum or plasma calcium gustavo urement (mass/volume)on 12-14-2021 Calcium [Mass/Vol] 8.6 mg/dL 8.5-10.1 [facility] Work Phone: Serum or plasma creatinine m easurement (mass/volume)on 12-14-2021 Creatinine [Mass/Vol] 1.20 mg/dL 0.55-1.02 [facility] Work Phone: Comment on above: The validity of the calculated GFR & GFRAA in patients over 70 years has not been determined. Clinical correlation is essential. Serum or plasma urea nitroge n measurement (mass/volume)on 12-14-2021 Urea nitrogen [Mass/Vol] 32 mg/dL 7-18 [facility] Work Phone: Squamous epithelial cells de tection in urine sediment by light microscopyon 12-14-2021 Epithelial cells.squamous LM Ql (Urine sed) 5-10 SEEN /hpf [facility] Work Phone: Thin prep Papanicolaou smear with manual screeningon 12-14-2021 Thin prep Papanicolaou smear with manual screening 106 U/L 15-37 [facility] Work Phone: Comment on above: Slight Hemolysis, Re sult may be falsely increased. Thin prep Papanicolaou smear with manual screening 11 5-15 [facility] Work Phone: Urine blood detectionon 11-23 RBC Ql (U) 10 /ul Negative [facility] Work Phone: RBC Ql (U) 0-5 SEEN /hpf [facility] Work Phone: Urine clarityon 12-14-2021 Clarity (U) Clear Clear [facility] Work Phone: Urine color determinationon 12-14-2021 Color (U) Yellow Yellow [facility] Work Phone: Urine glucose detectionon Glucose Ql (U) Normal mg/dl Normal [facility] Work Phone: Urine leukocyte esterase det ection by dipstickon 12-14-2021 Leukocyte esterase Test strip Ql (U) 25 /ul Negative [facility] Work Phone: Urine pHon 12-14-2021 pH (U) 6.0 [pH] [facility] Work Phone: Urine sediment bacteria coun t by microscopy (number/high power field)on 12-14-2021 Bacteria LM.HPF (Urine sed) [#/Area] RARE /hpf None Seen [facility] Work Phone: Urine specific gravity measu rementon 12-14-2021 Specific gravity (U) [Rel density] 1.015 [facility] Work Phone: Urobilinogen Auto test strip Ql (U)on 12-14-2021 Urobilinogen Ql (U) Normal mg/dl Normal [facility] Work Phone: CNOVon 11-14-2020 CNOV Office Visit (PODIWS ) VANESSA HERNANDEZ ([id number]) 1945 F Date Time Provider Department 11/14/20 [...] Objective: Patient presents to clinic amb[facility] Vasc: DP and PT pulses are [...] Latonya Sol DPM Referring Provider: LATONYA SOL [[id number]] Allergies As of Date: 11/14/2020 Noted Allergy [...] by LATONYA SOL DPM on 11/14/20 Normal [facility] Vital Signs Date Time Vital Sign Value Performing Clinician Jojo tadeo 04-18-2025 09:54-0400 Body height 165.[address] Moon Rayo MD Work Phone: [facility] 04-18-2025 09:54-0400 Body mass index (BMI) [Ratio] 39.2 kg/m2 Dr. Moon Rayo MD Work Phone: [facility] 04-18-2025 09:54-0400 Body temperature 98.4 [degF] Dr. Moon Rayo MD Work Phone: [facility] 04-18-2025 09:54-0400 Body weight 107.[address] Moon Rayo MD Work Phone: [facility] 04-18-2025 09:54-0400 Diastolic blood pressure 85 mm[Hg] Dr. Moon Rayo MD Work Phone: [facility] 04-18-2025 09:54-0400 Heart rate 89 /min Dr. Moon Rayo MD Work Phone: [facility] 04-18-2025 09:54-0400 Respiratory rate 16 /min Dr. Moon Rayo MD Work Phone: [facility] 04-18-2025 09:54-0400 SaO2% (BldA) [Mass fraction] 93 % Dr. Moon Rayo MD Work Phone: [facility] 04-18-2025 09:54-0400 Systolic blood pressure 138 mm[Hg] Dr. Moon Rayo MD Work Phone: [facility] 02-21-2025 09:44-0400 Body height 165.[address] Moon Rayo MD Work Phone: [facility] 02-21-2025 09:44-0400 Body mass index (BMI) [Ratio] 38.5 kg/m2 Dr. Moon Rayo MD Work Phone: [facility] 02-21-2025 09:44-0400 Body temperature 98.4 [degF] Dr. Moon Rayo MD Work Phone: [facility] 02-21-2025 09:44-0400 Body weight 104.[address] Moon Rayo MD Work Phone: [facility] 02-21-2025 09:44-0400 Diastolic blood pressure 81 mm[Hg] Dr. Moon Rayo MD Work Phone: [facility] 02-21-2025 09:44-0400 Heart rate 90 /min Dr. Moon Rayo MD Work Phone: [facility] 02-21-2025 09:44-0400 Respiratory rate 16 /min Dr. Moon Rayo MD Work Phone: [facility] 02-21-2025 09:44-0400 SaO2% (BldA) [Mass fraction] 94 % Dr. Moon Rayo MD Work Phone: [facility] 02-21-2025 09:44-0400 Systolic blood pressure 135 mm[Hg] Dr. Moon Rayo MD Work Phone: [facility] 02-18-2025 13:36-0400 Body height 165.[address] Moon Rayo MD Work Phone: [facility] 02-18-2025 13:36-0400 Body mass index (BMI) [Ratio] 38.9 kg/m2 Dr. Moon Rayo MD Work Phone: [facility] 02-18-2025 13:36-0400 Body temperature 98 [degF] Dr. Moon Rayo MD Work Phone: [facility] 02-18-2025 13:36-0400 Body weight 106.[address] Moon Rayo MD Work Phone: [facility] 02-18-2025 13:36-0400 Diastolic blood pressure 87 mm[Hg] Dr. Moon Rayo MD Work Phone: [facility] 02-18-2025 13:36-0400 Heart rate 83 /min Dr. Moon Rayo MD Work Phone: [facility] 02-18-2025 13:36-0400 Respiratory rate 16 /min Dr. Moon Rayo MD Work Phone: [facility] 02-18-2025 13:36-0400 SaO2% (BldA) [Mass fraction] 93 % Dr. Moon Rayo MD Work Phone: [facility] 02-18-2025 13:36-0400 Systolic blood pressure 147 mm[Hg] Dr. Moon Rayo MD Work Phone: [facility] 10-31-2023 01:14-0400 Body temperature 98 [degF] Dr. Moon Rayo Work Phone: [facility] 10-31-2023 01:14-0400 Diastolic blood pressure 60 mm[Hg] Dr. Moon Rayo Work Phone: [facility] 10-31-2023 01:14-0400 Heart rate 85 /min Dr. Moon Rayo Work Phone: [facility] 10-31-2023 01:14-0400 Respiratory rate 18 /min Dr. Moon Rayo Work Phone: [facility] 10-31-2023 01:14-0400 SaO2% (BldA) [Mass fraction] 98 % Dr. Moon Rayo Work Phone: [facility] 10-31-2023 01:14-0400 Systolic blood pressure 158 mm[Hg] Dr. Moon Rayo Work Phone: [facility] 10-30-2023 23:06-0400 Body height 162.[address] Moon Rayo Work Phone: [facility] 10-30-2023 23:06-0400 Body mass index (BMI) [Ratio] 38.7 kg/m2 Dr. Moon Rayo Work Phone: [facility] 10-30-2023 23:06-0400 Body weight 102.[address] Moon Raoy Work Phone: [facility] 10-24-2023 13:58-0400 Body height 162.[address] Moon Rayo Work Phone: [facility] 10-24-2023 13:58-0400 Body mass index (BMI) [Ratio] 38 kg/m2 Dr. Moon Rayo Work Phone: [facility] 10-24-2023 13:58-0400 Body temperature 98.4 [degF] Dr. Moon Rayo Work Phone: [facility] 10-24-2023 13:58-0400 Body weight 100.[address] Moon Rayo Work Phone: [facility] 10-24-2023 13:58-0400 Diastolic blood pressure 77 mm[Hg] Dr. Moon Rayo Work Phone: [facility] 10-24-2023 13:58-0400 Heart rate 97 /min Dr. Moon Rayo Work Phone: [facility] 10-24-2023 13:58-0400 Respiratory rate 18 /min Dr. Moon Rayo Work Phone: [facility] 10-24-2023 13:58-0400 SaO2% (BldA) [Mass fraction] 94 % Dr. Moon Rayo Work Phone: [facility] 10-24-2023 13:58-0400 Systolic blood pressure 136 mm[Hg] Dr. Moon Rayo Work Phone: [facility] 10-06-2023 13:51-0400 Body mass index (BMI) [Ratio] 39.4 kg/m2 Dr. Moon Rayo Work Phone: [facility] 10-06-2023 13:51-0400 Body temperature 98.1 [degF] Dr. Moon Rayo Work Phone: [facility] 10-06-2023 13:51-0400 Body weight 104.[address] Moon Rayo Work Phone: [facility] 10-06-2023 13:51-0400 Diastolic blood pressure 79 mm[Hg] Dr. Moon Rayo Work Phone: [facility] 10-06-2023 13:51-0400 Heart rate 85 /min Dr. Moon Rayo Work Phone: [facility] 10-06-2023 13:51-0400 SaO2% (BldA) [Mass fraction] 92 % Dr. Moon Rayo Work Phone: [facility] 10-06-2023 13:51-0400 Systolic blood pressure 130 mm[Hg] Dr. Moon Rayo Work Phone: [facility] 09-28-2023 10:46-0500 Body temperature 97.6 [degF] Dr. Moon Rayo Work Phone: [facility] 09-28-2023 10:46-0500 Diastolic blood pressure 73 mm[Hg] Dr. Moon Rayo Work Phone: [facility] 09-28-2023 10:46-0500 Heart rate 81 /min Dr. Moon Rayo Work Phone: [facility] 09-28-2023 10:46-0500 Respiratory rate 14 /min Dr. Moon Rayo Work Phone: [facility] 09-28-2023 10:46-0500 SaO2% (BldA) [Mass fraction] 96 % Dr. Moon Rayo Work Phone: [facility] 09-28-2023 10:46-0500 Systolic blood pressure 121 mm[Hg] Dr. Moon Rayo Work Phone: [facility] 09-28-2023 02:25-0500 Body mass index (BMI) [Ratio] 39.2 kg/m2 Dr. Moon Rayo Work Phone: [facility] 09-27-2023 09:31-0500 Body height 162.[address] Moon Rayo Work Phone: [facility] 09-27-2023 09:31-0500 Body weight 103.[address] Moon Rayo Work Phone: [facility] 09-26-2023 15:33-0500 Body temperature 97.5 [degF] Dr. Moon Rayo Work Phone: [facility] 09-26-2023 15:33-0500 Diastolic blood pressure 81 mm[Hg] Dr. Moon Rayo Work Phone: [facility] 09-26-2023 15:33-0500 Heart rate 86 /min Dr. Moon Rayo Work Phone: [facility] 09-26-2023 15:33-0500 Respiratory rate 16 /min Dr. Moon Rayo Work Phone: [facility] 09-26-2023 15:33-0500 SaO2% (BldA) [Mass fraction] 97 % Dr. Moon Rayo Work Phone: [facility] 09-26-2023 15:33-0500 Systolic blood pressure 143 mm[Hg] Dr. Moon Rayo Work Phone: [facility] 09-26-2023 15:18-0500 Body height 162.[address] Moon Rayo Work Phone: [facility] 09-26-2023 15:18-0500 Body mass index (BMI) [Ratio] 39.2 kg/m2 Dr. Moon Rayo Work Phone: [facility] 09-26-2023 15:18-0500 Body weight 103.[address] Moon Rayo Work Phone: [facility] 08-22-2023 13:38-0500 Body mass index (BMI) [Ratio] 40.2 kg/m2 Dr. Moon Rayo Work Phone: [facility] 08-22-2023 13:38-0500 Body temperature 97.1 [degF] Dr. Moon Rayo Work Phone: [facility] 08-22-2023 13:38-0500 Body weight 106.[address] Moon Rayo Work Phone: [facility] 08-22-2023 13:38-0500 Diastolic blood pressure 64 mm[Hg] Dr. Moon Rayo Work Phone: [facility] 08-22-2023 13:38-0500 Heart rate 18 /min Dr. Moon Rayo Work Phone: [facility] 08-22-2023 13:38-0500 Respiratory rate 18 /min Dr. Moon Rayo Work Phone: [facility] 08-22-2023 13:38-0500 SaO2% (BldA) [Mass fraction] 94 % Dr. Moon Rayo Work Phone: [facility] 08-22-2023 13:38-0500 Systolic blood pressure 103 mm[Hg] Dr. Moon Rayo Work Phone: [facility] 08-16-2023 13:35-0500 Body temperature 98.5 [degF] Dr. Moon Rayo Work Phone: [facility] 08-16-2023 13:35-0500 Diastolic blood pressure 56 mm[Hg] Dr. Moon Rayo Work Phone: [facility] 08-16-2023 13:35-0500 Heart rate 101 /min Dr. Moon Rayo Work Phone: [facility] 08-16-2023 13:35-0500 Respiratory rate 18 /min Dr. Moon Rayo Work Phone: [facility] 08-16-2023 13:35-0500 SaO2% (BldA) [Mass fraction] 95 % Dr. Moon Rayo Work Phone: [facility] 08-16-2023 13:35-0500 Systolic blood pressure 109 mm[Hg] Dr. Moon Rayo Work Phone: [facility] 08-16-2023 05:50-0500 Body mass index (BMI) [Ratio] 31.4 kg/m2 Dr. Moon Rayo Work Phone: [facility] 08-16-2023 05:50-0500 Body weight 83.[address] Moon Rayo Work Phone: [facility] 08-14-2023 10:59-0500 Body height 162.[address] Moon Rayo Work Phone: [facility] 08-13-2023 22:15-0500 Diastolic blood pressure 66 mm[Hg] Dr. Moon Rayo Work Phone: [facility] 08-13-2023 22:15-0500 Heart rate 80 /min Dr. Moon Rayo Work Phone: [facility] 08-13-2023 22:15-0500 Respiratory rate 19 /min Dr. Moon Rayo Work Phone: [facility] 08-13-2023 22:15-0500 Systolic blood pressure 107 mm[Hg] Dr. Moon Rayo Work Phone: [facility] 08-13-2023 19:17-0500 Body height 162.[address] Moon Rayo Work Phone: [facility] 08-13-2023 19:17-0500 Body mass index (BMI) [Ratio] 40.4 kg/m2 Dr. Moon Rayo Work Phone: [facility] 08-13-2023 19:17-0500 Body temperature 97.3 [degF] Dr. Moon Rayo Work Phone: [facility] 08-13-2023 19:17-0500 Body weight 106.[address] Moon Rayo Work Phone: [facility] 07-28-2023 14:15-0500 Body height 162.[address] Moon Rayo Work Phone: [facility] 07-28-2023 14:15-0500 Body mass index (BMI) [Ratio] 41.2 kg/m2 Dr. Moon Rayo Work Phone: [facility] 07-28-2023 14:15-0500 Body temperature 96.3 [degF] Dr. Moon Rayo Work Phone: [facility] 07-28-2023 14:15-0500 Body weight 108.[address] Moon Rayo Work Phone: [facility] 07-28-2023 14:15-0500 Diastolic blood pressure 71 mm[Hg] Dr. Moon Rayo Work Phone: [facility] 07-28-2023 14:15-0500 Heart rate 80 /min Dr. Moon Rayo Work Phone: [facility] 07-28-2023 14:15-0500 Respiratory rate 16 /min Dr. Moon Rayo Work Phone: [facility] 07-28-2023 14:15-0500 SaO2% (BldA) [Mass fraction] 92 % Dr. Moon Rayo Work Phone: [facility] 07-28-2023 14:15-0500 Systolic blood pressure 107 mm[Hg] Dr. Moon Rayo Work Phone: [facility] 04-13-2023 11:10-0400 Body height 162.[address] Moon Rayo Work Phone: [facility] 04-13-2023 11:10-0400 Body mass index (BMI) [Ratio] 42 kg/m2 Dr. Moon Rayo Work Phone: [facility] 04-13-2023 11:10-0400 Body temperature 98.2 [degF] Dr. Moon Rayo Work Phone: [facility] 04-13-2023 11:10-0400 Body weight 111.[address] Moon Rayo Work Phone: [facility] 04-13-2023 11:10-0400 Diastolic blood pressure 75 mm[Hg] Dr. Moon Rayo Work Phone: [facility] 04-13-2023 11:10-0400 Heart rate 77 /min Dr. Moon Rayo Work Phone: [facility] 04-13-2023 11:10-0400 Respiratory rate 18 /min Dr. Moon Rayo Work Phone: [facility] 04-13-2023 11:10-0400 SaO2% (BldA) [Mass fraction] 94 % Dr. Moon aRyo Work Phone: [facility] 04-13-2023 11:10-0400 Systolic blood pressure 123 mm[Hg] Dr. Moon Rayo Work Phone: [facility] 07-15-2022 13:17-0500 Body temperature 98.1 [degF] Dr. Moon Rayo Work Phone: [facility] Work Phone: 07-15-2022 13:17-0500 Body weight 111.[address] Moon Rayo Work Phone: [facility] Work Phone: 07-15-2022 13:17-0500 Diastolic blood pressure 85 mm[Hg] Dr. Moon Rayo Work Phone: [facility] Work Phone: 07-15-2022 13:17-0500 Heart rate 90 /min Dr. Moon Rayo Work Phone: [facility] Work Phone: 07-15-2022 13:17-0500 Respiratory rate 18 /min Dr. Moon Rayo Work Phone: [facility] Work Phone: 07-15-2022 13:17-0500 SaO2% (BldA) [Mass fraction] 95 % Dr. Moon Rayo Work Phone: [facility] Work Phone: 07-15-2022 13:17-0500 Systolic blood pressure 158 mm[Hg] Dr. Moon Rayo Work Phone: [facility] Work Phone: 07-13-2022 09:11-0500 Body temperature 98.3 [degF] Dr. Moon Rayo Work Phone: [facility] Work Phone: 07-13-2022 09:11-0500 Diastolic blood pressure 90 mm[Hg] Dr. Moon Rayo Work Phone: [facility] Work Phone: 07-13-2022 09:11-0500 Heart rate 82 /min Dr. Moon Rayo Work Phone: [facility] Work Phone: 07-13-2022 09:11-0500 Respiratory rate 18 /min Dr. Moon Rayo Work Phone: [facility] Work Phone: 07-13-2022 09:11-0500 SaO2% (BldA) [Mass fraction] 98 % Dr. Moon Rayo Work Phone: [facility] Work Phone: 07-13-2022 09:11-0500 Systolic blood pressure 159 mm[Hg] Dr. Moon Rayo Work Phone: [facility] Work Phone: 07-13-2022 07:02-0500 Body height 162.[address] Moon Rayo Work Phone: [facility] Work Phone: 07-13-2022 07:02-0500 Body mass index (BMI) [Ratio] 43.2 kg/m2 Dr. Moon Rayo Work Phone: [facility] Work Phone: 07-13-2022 07:02-0500 Body weight 114.[address] Moon Rayo Work Phone: [facility] Work Phone: 12-14-2021 18:52-0400 Diastolic blood pressure 74 mm[Hg] Dr. Moon Rayo Work Phone: [facility] Work Phone: 12-14-2021 18:52-0400 Heart rate 100 /min Dr. Moon Rayo Work Phone: [facility] Work Phone: 12-14-2021 18:52-0400 Respiratory rate 20 /min Dr. Moon Rayo Work Phone: [facility] Work Phone: 12-14-2021 18:52-0400 SaO2% (BldA) [Mass fraction] 98 % Dr. Moon Rayo Work Phone: [facility] Work Phone: 12-14-2021 18:52-0400 Systolic blood pressure 115 mm[Hg] Dr. Moon Rayo Work Phone: [facility] Work Phone: 12-14-2021 14:02-0400 Body height 162.[address] Moon Rayo Work Phone: [facility] Work Phone: 12-14-2021 14:02-0400 Body mass index (BMI) [Ratio] 41.7 kg/m2 Dr. Moon Rayo Work Phone: [facility] Work Phone: 12-14-2021 14:02-0400 Body temperature 97.5 [degF] Dr. Moon Rayo Work Phone: [facility] Work Phone: 12-14-2021 14:02-0400 Body weight 110.[address] Moon Rayo Work Phone: [facility] Work Phone: 11-02-2021 08:09-0400 Body mass index (BMI) [Ratio] 41.7 kg/m2 Dr. Moon Rayo Work Phone: [facility] Work Phone: 11-02-2021 08:09-0400 Body temperature 96 [degF] Dr. Moon Rayo Work Phone: [facility] Work Phone: 11-02-2021 08:09-0400 Body weight 110.[address] Moon Rayo Work Phone: [facility] Work Phone: 11-02-2021 08:09-0400 Diastolic blood pressure 80 mm[Hg] Dr. Moon Rayo Work Phone: [facility] Work Phone: 11-02-2021 08:09-0400 Heart rate 81 /min Dr. Moon Rayo Work Phone: [facility] Work Phone: 11-02-2021 08:09-0400 Respiratory rate 18 /min Dr. Moon Rayo Work Phone: [facility] Work Phone: 11-02-2021 08:09-0400 SaO2% (BldA) [Mass fraction] 97 % Dr. Moon Rayo Work Phone: [facility] Work Phone: 11-02-2021 08:09-0400 Systolic blood pressure 124 mm[Hg] Dr. Moon Rayo Work Phone: [facility] Work Phone: Encounters Encounter Date Encounter Type Care Provider Facility Start: 05-29-2025 ambulatory Moon Rayo Facility :[facility] Start: 05-24-2025 End: 05-24-2025 ambulatory Alvin Steele Facility:[facility] Start: 04-18-2025 End: 04-18-[address] Moon Rayo MD -[facility] Work Phone: Start: 04-18-2025 End: 04-18-[address] Moon Rayo MD Work Phone: -[facility] Start: 03-04-2025 ambulatory Moon Rayo Facility :[facility] Start: 02-21-2025 End: 02-21-[address] Moon Rayo MD -[facility] Work Phone: Start: 02-21-2025 End: 02-21-[address] Moon Rayo MD Work Phone: -[facility] Start: 02-18-2025 End: 02-18-[address] Moon Rayo MD -[facility] Work Phone: Start: 02-18-2025 End: 02-18-[address] oMon Rayo MD Work Phone: -[facility] Start: 01-28-2025 End: 01-28-[address] Moon Rayo MD Work Phone: -Physical Therapy Start: 01-28-2025 End: 01-28-[address] Moon Rayo MD -Physical Therapy Work Phone: Start: 01-22-2025 Non-patient / Non-visit Dr. Jojo lin MD -[facility] Work Phone: Start: 09-03-2024 End: 09-03-2024 ambulatory Moon Rayo Facility:[facility] Start: 08-26-2024 End: 08-26-2024 Emergency department patient visit Moon Rayo Facility:[facility] Start: 07-14-2024 End: 07-14-2024 Emergency department patient visit Moon Rayo Facility:[facility] Start: 05-28-2024 End: 05-28-2024 ambulatory Moon Rayo Facility:[facility] Start: 10-30-2023 End: 10-31-2023 Emergency department patient visit Dr. Moon Rayo Work Phone: [facility] Work Phone: Start: 10-30-2023 End: 10-31-2023 Dr. Moon Rayo Work Phone: [facility] Work Phone: Start: 10-25-2023 End: 10-30-2023 ambulatory MOON RAYO MD Facility:[facility] Start: 10-25-2023 End: 10-29-2023 Outreach Lab MOON RAYO MD [facility] Start: 10-24-2023 End: 10-24-[address] Moon Rayo Work Phone: [facility] Work Phone: Start: 10-24-2023 End: 10-24-2023 Dr. Moon Rayo Work Phone: [facility] Work Phone: Start: 10-12-2023 End: 10-12-2023 Dr. Moon Rayo Work Phone: [facility] Work Phone: Start: 10-04-2023 [facility] Start: 10-03-2023 Dr. Moon Waldrop hner Work Phone: [facility] Start: 09-29-2023 Dr. Moon Waldrop hner Work Phone: [facility] Start: 09-28-2023 Dr. Moon Waldrop hner Work Phone: [facility] Work Phone: Start: 09-27-2023 Dr. Moon Waldrop hner Work Phone: [facility] Work Phone: Start: 09-27-2023 Dr. Moon Waldrop hner Work Phone: [facility] Start: 09-26-2023 End: 09-28-2023 Evaluation and management of inpatient Dr. Moon Rayo Work Phone: [facility] Work Phone: Start: 09-26-2023 End: 09-28-2023 Dr. Moon Rayo Work Phone: [facility] Work Phone: Start: 08-22-2023 End: 08-22-2023 Dr. Moon Rayo Work Phone: [facility] Work Phone: Start: 08-16-2023 Non-patient / Non-visit Dr. Nara Rayo Work Phone: [facility] Work Phone: Start: 08-16-2023 Dr. Moon Waldrop hner Work Phone: [facility] Work Phone: Start: 08-15-2023 Non-patient / Non-visit Dr. Nara Rayo Work Phone: [facility] Work Phone: Start: 08-15-2023 Dr. Moon Waldrop hner Work Phone: [facility] Work Phone: Start: 08-15-2023 Non-patient / Non-visit Dr. Nara Rayo Work Phone: [facility] Start: 08-15-2023 Dr. Moon Waldrop hner Work Phone: [facility] Start: 08-14-2023 Non-patient / Non-visit Dr. Nara Rayo Work Phone: [facility] Work Phone: Start: 08-14-2023 Dr. Moon ochoa Work Phone: [facility] Work Phone: Start: 08-13-2023 End: 08-16-2023 Dr. Moon Rayo Work Phone: [facility] Work Phone: Start: 08-13-2023 End: 08-16-2023 Evaluation and management of inpatient Dr. Moon Rayo Work Phone: [facility] Work Phone: Start: 08-13-[address] Meseret Rayo Work Phone: [facility] Work Phone: Start: 08-01-2023 End: 08-01-[address] Moon Rayo Work Phone: [facility] Work Phone: Start: 08-01-2023 End: 08-01-[address] [facility] Start: 08-01-2023 End: 08-01-2023 Dr. [facility] Start: 07-28-2023 End: 07-28-[address] Moon Rayo Work Phone: [facility] Work Phone: Start: 07-28-2023 End: 07-28-2023 Dr. Moon Rayo Work Phone: [facility] Work Phone: Start: 04-27-2023 End: 04-27-2023 Emergency department patient visit Dr. Moon Rayo Work Phone: [facility]Emergency Department Work Phone: Start: 04-13-2023 Non-patient / Non-visit Dr. Nara Rayo Work Phone: [facility] Start: 04-13-2023 End: 04-13-[address] Moon Rayo Work Phone: [facility] Work Phone: Start: 04-13-2023 End: 04-13-[address] [facility] Work [facility]: Start: 04-13-2023 End: 04-13-[address] Moon Rayo Work Phone: [facility] [place] Work Phone: Start: 07-15-2022 End: 07-15-[address] Moon Rayo Work Phone: [facility] Work Phone: Start: 07-15-2022 End: 07-15-[address] Moon Rayo Work Phone: [facility] Start: 07-15-2022 End: 07-15-[address] Moon Rayo Work Phone: [facility] [place] Start: 07-13-2022 End: 07-13-2022 Emergency department patient visit Dr. Moon Rayo Work Phone: [facility] Start: 06-14-2022 Non-patient / Non-visit Dr. Nara Rayo Work Phone: [facility] Start: 12-14-2021 End: 12-14-2021 Emergency department patient visit Dr. Moon Rayo Work Phone: [facility] Start: 11-02-2021 End: 11-02-[address] Moon Rayo Work Phone: [facility] Procedures Date Procedure Procedure Detail [...] Date Care Activity Detail Author Start: 10-31-2023 [facility] Start: 10-12-2023 Patient referral [facility] Work Phone: Start: 09-28-2023 Patient discharge [facility] Start: 09-27-2023 Thyroid stimulating hormone measurement [facility] Start: 09-27-2023 [facility] Start: 09-26-2023 Measurement of occul t blood in stool specimen using immunoassay [facility] Start: 09-26-2023 Assessment of risk o f venous thromboembolism [facility] Start: 09-26-2023 Cardiac monitoring [facility] Start: 09-26-2023 Catheterization of vein [facility] Start: 09-26-2023 Continuous pulse oximetry [facility] Start: 09-26-2023 Elevation of head of bed [facility] Start: 09-26-2023 Exercises [facility] Start: 09-26-[address] anned interventions [facility] Start: 09-26-2023 Incentive spirometry [facility] Start: 09-26-2023 Insertion of cathete r into peripheral vein [facility] Start: 09-26-2023 Measuring intake and output [facility] Start: 09-26-2023 Notification of physician [facility] Start: 09-26-2023 Oxygen therapy [facility] Start: 09-26-2023 Patient referral to dietitian [facility] Start: 09-26-2023 Providing care accor ding to standard [facility] Start: 09-26-2023 Provision of activit y privileges [facility] Start: 09-26-2023 Referral to occupati onal therapist [facility] Start: 09-26-2023 Referral to service [facility] Start: 09-26-2023 End: 09-26-2023 Speech therapy assessment [facility] Start: 09-26-2023 Telemedicine consult ation with patient [facility] Start: 09-26-2023 Tobacco use cessatio n education [facility] Start: 09-26-2023 [facility] Start: 09-26-2023 Vital signs measurements [facility] Start: 09-26-2023 MRI of brain without contrast [facility] Start: 09-26-2023 Following clinical p athway protocol [facility] Start: 09-26-2023 Verification routine [facility] Start: 09-26-2023 Admission procedure [facility] Start: 08-16-2023 Referral to service [facility] Start: 08-16-2023 Patient discharge [facility] Start: 08-14-2023 Thyroid stimulating hormone measurement [facility] Start: 08-14-2023 [facility] Start: 08-13-2023 Following clinical p athway protocol [facility] Start: 08-13-2023 Assessment of risk o f venous thromboembolism [facility] Start: 08-13-2023 Contact precautions [facility] Start: 08-13-2023 Insertion of cathete r into peripheral vein [facility] Start: 08-13-2023 Measuring intake and output [facility] Start: 08-13-2023 Oxygen therapy [facility] Start: 08-13-2023 Providing care accor ding to standard [facility] Start: 08-13-2023 Provision of activit y privileges [facility] Start: 08-13-2023 Referral to occupati onal therapist [facility] Start: 08-13-2023 Referral to service [facility] Start: 08-13-2023 [facility] Start: 08-13-2023 Verification routine [facility] Start: 08-13-2023 Admission procedure [facility] Start: 08-13-2023 [facility] Start: 08-13-2023 Bacteria identified in Urine by Culture [facility] Start: 08-13-2023 Patient referral to dietitian [facility] Start: 04-27-2023 Simple repair scalp/neck/ax/genit/trunk 2.5cm/< RPR S/N/AX/GEN/TRNK 2.5CM/< [facility] Start: 04-13-2023 Patient referral [facility] Work Phone: Alanine aminotransfe rase [Enzymatic activity/volume] in Serum or Plasma [facility] Alanine aminotransfe rase [Enzymatic activity/volume] in Serum or Plasma [facility] Albumin [Mass/volume ] in Serum or Plasma [facility] Albumin [Mass/volume ] in Serum or Plasma [facility] Alkaline phosphatase [Enzymatic activity/volume] in Serum or Plasma [facility] Alkaline phosphatase [Enzymatic activity/volume] in Serum or Plasma [facility] Anion gap measurement [facility] Anion gap measurement [facility] Aspartate aminotrans ferase [Enzymatic activity/volume] in Serum or Plasma [facility] Aspartate aminotrans ferase [Enzymatic activity/volume] in Serum or Plasma [facility] Bilirubin, total measurement [facility] Bilirubin, total measurement [facility] BUN/Creatinine ratio [facility] BUN/Creatinine ratio [facility] C reactive protein [Mass/volume] in Serum or Plasma [facility] Calcium [Mass/volume ] in Serum or Plasma [facility] Calcium [Mass/volume ] in Serum or Plasma [facility] Carbon dioxide, tota l [Moles/volume] in Serum or Plasma [facility] Carbon dioxide, tota l [Moles/volume] in Serum or Plasma [facility] Cardiac event recording [facility] Chloride [Moles/volu me] in Serum or Plasma [facility] Chloride [Moles/volu me] in Serum or Plasma [facility] Cholesterol [Mass/vo lume] in Serum or Plasma [facility] Cholesterol in HDL [Mass/volume] in Serum or Plasma [facility] Cholesterol in LDL [Mass/volume] in Serum or Plasma [facility] Creatinine [Moles/vo lume] in Serum or Plasma [facility] Creatinine [Moles/vo lume] in Serum or Plasma [facility] Erythrocyte mean cor puscular volume determination [facility] Erythrocyte mean cor puscular volume determination [facility] Erythrocyte sediment ation rate [facility] Ferritin [Mass/volum e] in Serum or Plasma [facility] Glucose [Mass/volume ] in Serum or Plasma [facility] Glucose [Mass/volume ] in Serum or Plasma [facility] Hematocrit [Volume F raction] of Blood [facility] Hematocrit [Volume F raction] of Blood [facility] Hemoglobin [Mass/vol ume] in Blood [facility] Hemoglobin [Mass/vol ume] in Blood [facility] Hemoglobin A1c/Hemoglobin.total in Blood [facility] Iron [Mass/mass] in Unspecified specimen [facility] Iron and Iron bindin g capacity panel - Serum or Plasma [facility] Iron saturation [Mas s Fraction] in Serum or Plasma [facility] Leukocytes [#/volume ] in Blood [facility] Leukocytes [#/volume ] in Blood [facility] Magnesium [Mass/volu me] in Serum or Plasma [facility] Magnesium [Mass/volu me] in Serum or Plasma [facility] Mean corpuscular hem oglobin concentration determination [facility] Mean corpuscular hem oglobin concentration determination [facility] Mean corpuscular hem oglobin determination [facility] Mean corpuscular hem oglobin determination [facility] Measurement of renal function [facility] Measurement of renal function [facility] Neutrophil count [facility] Neutrophil count [facility] Neutrophil percent differential count [facility] Neutrophil percent differential count [facility] Patient Education [facility] Work Phone: Patient referral [facility] Work Phone: Platelets [#/volume] in Blood [facility] Platelets [#/volume] in Blood [facility] Potassium [Moles/vol ume] in Serum or Plasma [facility] Potassium [Moles/vol ume] in Serum or Plasma [facility] Red blood cell count [facility] Red blood cell count [facility] Red cell distributio n width determination [facility] Red cell distributio n width determination [facility] Serum inorganic phos phate measurement [facility] Serum inorganic phos phate measurement [facility] Sodium [Moles/volume ] in Serum or Plasma [facility] Sodium [Moles/volume ] in Serum or Plasma [facility] Total protein measurement [facility] Total protein measurement [facility] Triglycerides measurement [facility] Urea nitrogen [Mass/ volume] in Serum or Plasma [facility] Urea nitrogen [Mass/ volume] in Serum or Plasma [facility] VLDL cholesterol measurement [facility] Immunizations Immunization Date Immunization Notes Care Provider Fa [facility] 07-13-2022 tetanus toxoid, redu weston diphtheria toxoid, and acellular pertussis vaccine, adsorbed Dr. Moon Rayo Work Phone: [facility] 01-05-2022 tetanus toxoid, redu weston diphtheria toxoid, and acellular pertussis vaccine, adsorbed Dr. Moon Rayo Work Phone: [facility] 07-09-2021 Covid (Moderna) Dr. Moon brandon Work Phone: [facility] 06-04-[address] Moon Rayo Work Phone: [facility] 02-09-[address] Moon Rayo Work Phone: [facility] 12-12-2020 Covid (Moderna) Dr. Moon brandon Work Phone: [facility] 11-14-2020 Covid (Moderna) Dr. Moon brandon Work Phone: [facility] 04-23-2020 influenza, injectabl e, quadrivalent, preservative free Dr. Moon Rayo Work Phone: [facility] 04-23-2020 influenza, seasonal, injectable Dr. Moon Rayo Work Phone: [facility] Work Phone: 04-23-2020 Seasonal, quadrivale nt, recombinant, injectable influenza vaccine, preservative free Dr. Moon Rayo Work Phone: [facility] 04-23-2020 Fluad Quad (65yr up)(PF) 60 mcg (15 mcg x 4)/0.5mL IM syringe (flu vac Dr. Moon Rayo Work Phone: [facility] Work Phone: 04-30-2019 Influenza, high dose seasonal Dr. Moon Rayo MD Work Phone: [facility] 04-30-2019 influenza, high dose seasonal, preservative-free Dr. Moon Rayo Work Phone: [facility] Payers Date Payer Category Payer Unknown [id number] 2024 Unknown [id number] 2023 Self-pay [id number] Unknown [id number] 2.16.8 [id number] Medicaid [id number] Medicare [id number] Medicare [id number] Unknown [id number] Unknown [id number] 2.16.8 [id number] Unknown [id number] 2.16.8 [id number] Unknown [id number] 2.16.8 [id number] Unknown [id number] 2.16.8 [id number] Unknown [id number] 2.16.8 [id number] Unknown [id number] 2.16.8 [id number] Unknown [id number] 2.16.8 [id number] Unknown [id number] 2.16.8 [id number] Unknown [id number] 2.16.8 [id number] Unknown [id number] 2.16.8 [id number] Unknown [id number] 2.16.8 [id number] Unknown [id number] 2.16.8 [id number] Social History Date Type Detail Facility Start: 12-14-2021 End: 10-30-2023 Tobacco smoking status NHIS Unknown if ever smoked [facility] Start: 09-24-2020 None [facility] Start: 09-24-2020 Alone [facility] Start: 12-01-2020 Cigarettes [facility] Start: 1945 Sex Assigned At Female W [facility] Tobacco smoking status No Smokin g Status Entered [facility] Start: 08-31-2024 Tobacco smoking stat us IAIS Ex-smoker (finding) [facility] Sex Female [facility] Medical Equipment Procedure Code Equipment Code [...] Assessment Result Facility 09-28-2023 Functional status Bedrest [facility] Work Phone: 08-16-2023 Functional status Chair [facility] Work Phone: 08-16-2023 Functional status With Assist of 2 [facility] Work Phone: Mental Status Date Assessment Result Facility 10-30-2023 Cognitive function Awake;Alert;A ppropriate;Follow s Commands [facility] Work Phone: 09-28-2023 Cognitive function Voice/Name [facility] Work Phone: 09-26-2023 Cognitive function Voice/Name [facility] Work Phone: 08-16-2023 Cognitive function Voice/Name [facility] Work Phone: 08-13-2023 Cognitive function Level Of Cons ciousness Awake;Alert;Appropriate;Follow s Commands [facility] Work Phone: Clinical Notes 09-16-2020 to 04-18-2025 Note Date & Type Note Facility 04-18-2025 Progress note [facility] 02-18-2025 Evaluation note Diagnosis Onset Date Resolution Bilateral lower extremity edema acute February 18, 2025 1:25pm Subconjunctival hemorrhage acute February 18, 2025 1:25pm Cellulitis resolved February 18 1:25pm [facility] Work Phone: 1(329) 630-863007-28-2025 Evaluation note* Diagnosis Onset Date Resolution Status Admit Date Bilateral lower extremity edema acute February 18, 2025 1:25pm Subconjunctival hemorrhage acute February 18, 2025 1:25pm Cellulitis resolved February 18 1:25pm Bilateral lower extremity edema acute February 21, 2025 9:26am Cellulitis resolved February 21 9:26am Bilateral occipital neuralgia acute April 18, 2025 9:21am Neck pain noneactive March 9:21am [facility] Work Phone: 1(244) 289-785607-07-2025 Discharge summary [facility] Physical Therapy [address] [place] [address] / REHABILITATION SERVICES DISCHARGE SUMMARY MR#: [id number] Acct: [id number] Name: VANESSA HERNANDEZ Rep #: [id number] : 1945 79 From: Dulce Maria An [...] please feel free to call me at [phone]. Thank you for the referral of thispatient. Sincerely, Dulce Maria Lance, MPT Balance/Gait/Functional tests Balance/Special Test Scores Lower Extremity Functional Score: 44 Improvement % Improvement: 90 01/28/25 0958 CC: Dr. Moon Rayo MD ~ Signed [facility]04-07-2024 Discharge summary Author Cam Delgado [facility] October 31, 2023 12:53am Note Date/Time October 30, 2023 11:2 7pm [facility] Medical Records Department [address] [place] [address] Emergency Department Summary 10/30/23 MR#: [id number] Acct: [id number] Name: VANESSA HERNANDEZ Rep #:[id number] : 1945 78 From: Cam Delgado MD [...] but no different and no injury there. [facility] Medical History Abdominal pain Anxiety Asthma Chronic [...] your Primary Care Provider. Call [facility] ([phone]) or report to the closest Emergency Room. Call 911 if necessary. 10/31/2352 <Electronically signed by Cam Delgado MD> Cosigner Signature (if applicable): CC: Dr. Moon Rayo MD ~ Signed [facility] Work Phone: 1(536) 125-669703-06-2024 Discharge summary Author [facility] September 28, 2023 2:53pm Note Date/Time September 28, 2023 2:53 pm [facility] Medical Records Department [address] [place] [address] Discharge Summary 09/28/23 1452 MR#: [id number] Acct: [id number] Name: VANESSA HERNANDEZ Rep #:[id number] : 1945 78 From: Hima Gonzalez [facility] PCP: Dr. Moon Rayo MD Status:ADM IN Location: [place] [address] Providers Date of Admission: 09/26/23 Date of [...] is a 78-year-old female who presented to [facility] ED on 09/26/2023 with dysarthria, right facial droop and right facial numbness/tingling concerning for stroke. Hospital course as noted below. Patient discharged to custodial facility in stable condition on 09/27. 1. [...] ? PT/OT/case management followed. Patient discharged to custodial facility in stable condition on 09/27. ? [...] in before D/C Order can be placed): [facility] Facility Charges/Coding Visit Charges Inpatient E&M: 39881 Disch Hosp >30min 09/28/23 1453 <Electronically signed by Hima Zimmer DO> Cosigner Signature (if applicable): CC: Dr. Hima Zimmer DO; Dr. Moon Rayo MD~ Signed [facility] Work Phone: 1(566) 280-987203-06-2024 Discharge summary Author Hima Zimmer [facility] September 28, 2023 2:52pm Note Date/Time September 28, 2023 2:49 pm [facility] Medical Records Department [address] [place] [address] [place] [address] Instructions for Home/Discharge Instructions 09/28/23 1449 MR#: [id number] Acct: [id number] Name: VANESSA HERNANDEZ Rep #:[id number] : 1945 78 From: Hima pham DO [...] in before D/C Order can be placed): [facility] Facility 09/28/23 1452<Electronically signed by Hima Zimmer [...] Spencer DO; Will Locke MD ~ Signed [facility] Work Phone: 1(896) 634-803203-06-2024 Discharge summary Author Hima Mesha [facility] September 28, 2023 2:49pm Note Date/Time September 28, 2023 2:49 pm [facility] Medical Records Department [address] [place] [address] Transfer to [facility] MR#: [id number] Acct: [id number] Name: VANESSA HERNANDEZ Rep #:[id number] : 1945 78 From: Hima pham DO PCP: Dr. Moon Rayo MD Status:ADM IN Certification of patient admission REQUIRED AT TIME OF ADMISSION. I CERTIFY THAT POST-HOSPITAL ECF SERVICES ARE REQUIRED TO BE GIVEN ON AN IN-PATIENT BASIS BECAUSE OF THE ABOVE NAMED PATIENT'S NEED FOR PENITENTIARY CARE ON A CONTINUING BASIS FOR THE [...] is a 78-year-old female who presented to [facility] ED on 09/26/2023 with dysarthria, right facial droop and right facial numbness/tingling concerning for stroke. Hospital course as noted below. Patient discharged to custodial facility in stable condition on 09/27. 1. [...] ? PT/OT/case management followed. Patient discharged to custodial facility in stable condition on 09/27. ? [...] Provider] - Charges/Coding Visit Charges Inpatient E&M: 88804 Disch Hosp >30min 09/28/23 1449 <Electronically signed [...] Shruti Spencer DO; Will Locke MD ~ [facility] Work Phone: 1(760) 287-303303-05-2024 Consult note Author [facility] September 27, 2023 2:02pm Note Date/Time September 27, 2023 12:3 6pm [facility] Medical Records Department [address] [place] [address] Consultation - Neurology 09/27/23 1235 MR#: [id number] Acct: [id number] Name: VANESSA HERNANDEZ Rep #:[id number] : 1945 78 From: Addie Wesley PCP: Dr. 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 No LVO on CTA.Started ASA/Plavix. [facility] Medical History (Updated 09/26/23 @ 15:26 by [...] (Auto) 74.3 H, Lymph % (Auto)12.2 L, [place] % (Auto) 10.3 H, Eos % (Auto) [...] % (Auto) 64.8, Lymph % (Auto) 20.9, [place] % (Auto) 9.8, Eos % (Auto) 3.8, [...] 13:36 EST Reading Location ID and State: [facility] / [place] Tel , Service support , ADDENDUM: 09/26/23 1354 IMPRESSION: No acute intracranial process identified. Chronic involutional and white matter changes. N.B. : The above Results were Read Back by Yvonne Florian MD to Joshua Santiaog MD, and understanding confirmed on 09/26/2023 13:47:48 (ET). Electronically Signed: Yvonne Florian MD at 13:36 EST Reading Location ID and State: [facility] / [place] Tel , Service support , Head/Neck CTA 09/26/23 13:24 IMPRESSION: No evidence for significant stenosis or occlusion in the carotid or vertebral arteries of the neck. No evidence for large vessel occlusion in the [place]. Electronically Signed: Yvonne Florian MD at 14:03 EST Reading Location ID and State: [facility] / [place] Tel , Service support , ADDENDUM: 09/26/23 1412 IMPRESSION: No evidence for significant stenosis or occlusion in the carotid or vertebral arteries of the neck. No evidence for large vessel occlusion in the [place]. N.B. : The above [...] mls @ 15 mls/hr 09/26/23 15:16 IV .[id number] PRN Additional IVPB Infusion Sodium Chloride 250 mls @ 15 mls/hr 09/26/23 15:16 IV .[id number] PRN Saline Flush Labetalol HCl 10 - [...] Shruti Spencer DO; Will Locke MD~ Signed [facility] Work Phone: 1(854) 737-520703-05-2024 Progress note Author [facility] September 27, 2023 12:08pm Note Date/Time September 27, 2023 10:1 3am [facility] Medical Records Department [address] [place] [address] Progress Note - Hospitalist 09/27/23 1013 MR#: [id number] Acct: [id number] Name: VANESSA HERNANDEZ Rep #:[id number] : 1945 78 From: Hima pham DO PCP: Dr. Moon Rayo MD Status:ADM IN Location: [place] [address]- 1 Reason for Visit Reason for Visit: [...] (Auto) 74.3 H, Lymph % (Auto)12.2 L, [place] % (Auto) 10.3 H, Eos % (Auto) [...] % (Auto) 64.8, Lymph % (Auto) 20.9, [place] % (Auto) 9.8, Eos % (Auto) 3.8, [...] evidence for large vessel occlusion in the [place]. Electronically Signed: Yvonne Florian MD at 14:03 EST , ADDENDUM: 09/26/23 1412 IMPRESSION: No evidence for significant stenosis or occlusion in the carotid or vertebral arteries of the neck. No evidence for large vessel occlusion in the [place]. N.B. : The above Results were Read Back by Yvonne lForian MD to Joshua Santiago MD, and understanding [...] is a 78-year-old female who presented to [facility] ED on 09/26/2023 with dysarthria, [...] 35 minutes. Charges/Coding Visit Charges Inpatient E&M: 66354 Subs Hosp L2 09/27/23 1208 <Electronically signed by Hima Zimmer DO> Cosigner Signature (if applicable): CC: ~ Signed [facility] Work Phone: 1(790) 361-725503-04-2024 History and physical note Author Mona Chery [facility] September 26, 2023 3:35pm Note Date/Time September 26, 2023 3:35 pm [facility] Medical Records Department [address] [place] [address] H&P Exam - Hospitalist 09/26/23 1519 MR#: [id number] Acct: [id number] Name: VANESSA HERNANDEZ Rep #:[id number] : 1945 78 From: Mona Chery DO PCP: Dr. Moon Rayo MD Status:ADM IN Location: [place] [id number]- [id number] HPI - General General Date of Admission: 09/26/23 Date of Service: 09/26/23 Chief Complaint: Slurred speech HPI Narrative VANESSA HERNANDEZ, is a 78 F who presented to the emergency department at [facility] on 09/26/2023 with slurred speech. [...] and neck was read as unremarkable [facility] had conversation with the stroke [...] aspirin with ongoing aspirin Plavix after admission. [facility] Medical History (Updated 09/26/23 @ 15:26 by [...] (Auto) 74.3 H, Lymph % (Auto)12.2 L, [place] % (Auto) 10.3 H, Eos % (Auto) [...] 13:36 EST Reading Location ID and State: [facility] / [place] Tel , Service support , ADDENDUM: 09/26/23 1354 IMPRESSION: No acute intracranial process identified. Chronic involutional and white matter changes. N.B. : The above Results were Read Back by Yvonne Florian MD to Joshua Santiago MD, and understanding confirmed on 09/26/2023 13:47:48 (ET). Electronically Signed: Yvonne Florian MD at 13:36 EST Reading Location ID and State: [facility] / [place] Tel , Service support , Head/Neck CTA 09/26/23 13:24 IMPRESSION: No evidence for significant stenosis or occlusion in the carotid or vertebral arteries of the neck. No evidence for large vessel occlusion in the [place]. Electronically Signed: Yvonne Florian MD at 14:03 EST Reading Location ID and State: [facility] / [place] Tel , Service support , ADDENDUM: 09/26/23 1412 IMPRESSION: No evidence for significant stenosis or occlusion in the carotid or vertebral arteries of the neck. No evidence for large vessel occlusion in the [place]. N.B. : The above [...] to admission Charges/Coding Visit Charges Inpatient E&M: 09931 Init Hosp L2 09/26/23 1535 <Electronically signed by Mona Chery DO> Cosigner Signature (if applicable): CC: Dr. Mona Chery DO; Dr. Moon Rayo MD~ Signed [facility] Work Phone: 1(745) 972-898503-04-2024 Discharge summary Author Joshua Santiago [facility] September 26, 2023 2:32pm Note Date/Time September 26, 2023 1:37 pm [facility] Medical Records Department [address] [place] [address] Emergency Department Summary 09/26/23 MR#: [id number] Acct: [id number] Name: VANESSA HERNANDEZ Rep #:[id number] : 1945 78 From: Joshua Santiago MD PCP: Dr. Moon Rayo MD Status:REG ER Location: ED HPI History of Present Illness Chief Complaint: Stroke Alert Detail of Chief Complaint: Positive Callands score per EMS Informant: patient and EMS [...] 74.3 H Lymph % (Auto) 12.2 L [place] % (Auto) 10.3 H Eos % (Auto) [...] 13:36 EST Reading Location ID and State: [facility] / [place] Tel , Service support , ADDENDUM: 09/26/23 [...] evidence for large vessel occlusion in the [place]. Electronically Signed: Yvonne Florian MD at 14:03 EST , ADDENDUM: 09/26/23 1412 IMPRESSION: No evidence for significant stenosis or occlusion in the carotid or vertebral arteries of the neck. No evidence for large vessel occlusion in the [place]. N.B. : The above Results were Read Back by Yvonne Florian MD to Joshua Santiago MD, and understanding confirmed on 09/26/2023 14:05:28 (ET). Electronically Signed: Yvonne Florian MD at 14:03 EST , EKG Initial EKG: Attestation: I personally reviewed and interpreted this EKG as follows: Interpretation: Sinus Rhythm (Rate is 74. Computer is reading A-fib whichis incorrect. TN interval is normal. Cures duration is 84 ms. QT duration 392ms. Ulman is normal. There is artifact that the [...] (CVA), Herman-inattention Disposition Disposition: Acute Care [facility] What to do if you have Problems For any increased pain, shortness of breath, bleeding, nausea or vomiting, chestpain, or any unexpected problems, contact your Primary Care Provider. Call [facility] ([phone]) or report to the closest Emergency Room. [...] cc: Dr. Moon Rayo MD ~* Signed [facility] Work Phone: 1(234) 260-308503-04-2024 Discharge summary Author Joshua Santiago [facility] September 26, 2023 2:32pm Note Date/Time September 26, 2023 1:37 pm [facility] Medical Records Department [address] [place] [address] Emergency Department Summary 09/26/23 MR#: [id number] Acct: [id number] Name: VANESSA HERNANDEZ Rep #:[id number] : 1945 78 From: Joshua Santiago MD PCP: Dr. Moon Rayo MD Status:REG ER Location: ED HPI History of Present Illness Chief Complaint: Stroke Alert Detail of Chief Complaint: Positive Callands score per EMS Informant: patient and EMS [...] 74.3 H Lymph % (Auto) 12.2 L [place] % (Auto) 10.3 H Eos % (Auto) [...] evidence for large vessel occlusion in the [place]. Electronically Signed: Yvonne Florian MD at 14:03 EST , ADDENDUM: 09/26/23 1412 IMPRESSION: No evidence for significant stenosis or occlusion in the carotid or vertebral arteries of the neck. No evidence for large vessel occlusion in the [place]. N.B. : The above Results were Read Back by Yvonne Florian MD to Joshua Santiago MD, and understanding confirmed on 09/26/2023 14:05:28 (ET). Electronically Signed: Yvonne Florian MD at 14:03 EST , EKG Initial EKG: Attestation: I personally reviewed and interpreted this EKG as follows: Interpretation: Sinus Rhythm (Rate is 74. Computer is reading A-fib whichis incorrect. TN interval is normal. Cures duration is 84 ms. QT duration 392ms. Ulman is normal. There is artifact that the [...] (CVA), Herman-inattention Disposition Disposition: [facility] Care [facility] What to do if you have Problems For any increased pain, shortness of breath, bleeding, nausea or vomiting, chestpain, or any unexpected problems, contact your Primary Care Provider. Call [facility] ([phone]) or report to the closest Emergency Room. [...] cc: Dr. Moon Rayo MD ~* Signed [facility] Work Phone: 1(274) 384-330401-23-2024 Discharge summary Author Luis Miguel Freeman [facility] August 16, 2023 11:38am Note Date/Time August 16, 2023 1 1:38am [facility] Medical Records Department [address] [place] [address] Discharge Summary 08/16/23 1135 MR#: [id number] Acct: [id number] Name: VANESSA HERNANDEZ Rep #:[id number] : 1945 78 From: Luis Miguel Wesley PCP: Dr. Moon Rayo MD Status:ADM IN Location: [place] [address] Providers Date of Admission: 08/13/23 Date of [...] (Auto) 68.3, Lymph % (Auto) 17.2 L, [place] % (Auto) 11.5 H, Eos % (Auto) [...] Best Instructions Additional Instructions / Restrictions: Advised zwxi-rus-viqbhvw probiotic, lactobacillus tablets, 1 tablet twice daily [...] Self Care Charges/Coding Visit Charges Inpatient E&M: 99485 Disch Hosp >30min 08/16/23 1138 <Electronically signed by Luis Miguel Freeman MD> Cosigner Signature (if applicable): CC: Dr. Moon Rayo MD; Dr. Luis Miguel Freeman MD~ Signed [facility] Work Phone: 1(934) 188-715701-23-2024 Discharge summary Author Luis Miguel Freeman [facility] August 16, 2023 11:35am Note Date/Time August 16, 2023 1 1:31am [facility] Medical Records Department [address] [place] [address] Instructions for Home/Discharge Instructions 08/16/23 1036 MR#: [id number] Acct: [id number] Name: VANESSA HERNANDEZ Rep #:[id number] : 1945 78 From: Luis Miguel Weslye PCP: Dr. Moon Rayo MD Status:ADM IN [...] Best Instructions Additional Instructions / Restrictions: Advised wpjm-idl-odzkfwt probiotic, lactobacillus tablets, 1 tablet twice daily [...] MD; Dr. Dilia Best MD ~ Signed [facility] Work Phone: 1(996) 189-584501-22-2024 Progress note Author Luis Miguel Pete [facility] August 15, 2023 3:05pm Note Date/Time August 15, 2023 3 :05pm [facility] Medical Records Department [address] [place] [address] Progress Note - Hospitalist 08/15/23 1458 MR#: [id number] Acct: [id number] Name: VANESSA HERNANDEZ Rep #:[id number] : 1945 78 From: Luis Miguel Wesley PCP: Dr. Moon Rayo MD Status:ADM IN Location: [place] [address] Reason for Visit Reason for Visit: Diagnoses [...] % (Auto) 68.3, Lymph % (Auto)17.6 L, [place] % (Auto) 10.9 H, Eos % (Auto) [...] mentioned above. Charges/Coding Visit Charges Inpatient E&M: 50028 Subs Hosp L2 08/15/23 9649 <Electronically signed by Luis Miguel Freeman MD> Cosigner Signature (if applicable): CC: ~ Signed [facility] Work Phone: 1(237) 104-738601-22-2024 Consult note Author Zeina Beavers [facility] August 15, 2023 2:13pm Note Date/Time August 15, 2023 2 :13pm [facility] Medical Records Department [address] [place] [address] Pharmacokinetic/Renal -Consult 08/15/23 1413 MR#: [id number] Acct: [id number] Name: VANESSA HERNANDEZ Rep #:[id number] : 1945 78 From: Zeina Beavers PCP: Dr. Moon Rayo MD Status:[facility] has been consulted [...] Signature (if applicable): Date CC: ~ Signed [facility] Work Phone: 1(912) 511-202201-21-2024 Progress note Author Dilia Best [facility] August 14, 2023 2:59pm Note Date/Time August 14, 2023 7 :22am [facility] Medical Records Department [address] [place] [address] Progress Note - Hospitalist 08/14/23 0721 MR#: [id number] Acct: [id number] Name: VANESSA HERNANDEZ Rep #:[id number] : 1945 78 From: Dilia Best MD PCP: Dr. Moon Rayo MD Status:[facility] Reason for Visit Reason for Visit: Diagnoses [...] (Auto) 77.3 H, Lymph % (Auto)9.8 L, [place] % (Auto) 11.6 H, Eos % (Auto) [...] Sl. Cloudy, Urine pH 5.0, Ur Specific [place] 1.020, Urine Protein 30 H, Urine Glucose [...] % (Auto) 65.7, Lymph % (Auto) 19.8, [place] % (Auto) 12.8 H, Eos % (Auto) [...] 21:53 EST Reading Location ID and State: [address] [place] [address] Tel , Service support , Physical Exam [...] documentation, 38minutes Charges/Coding Visit Charges Inpatient E&M: 56942 Subs Hosp L2 08/14/23 8079 <Electronically signed by Dilia Best MD> Cosigner Signature (if applicable): CC: ~ Signed [facility] Work Phone: 1(276) 594-251901-21-2024 History and physical note Author Felipe Cordoba [facility] August 14, 2023 5:37am Note Date/Time August 13, 2023 9 :28pm [facility] Medical Records Department [address] [place] [address] H&P Exam - Hospitalist 08/13/232125 MR#: [id number] Acct: [id number] Name: VANESSA HERNANDEZ Rep #:[id number] : 1945 78 From: Felipe Fry DO PCP: Dr. Moon Rayo MD Status:ADM IN Location: [facility] CV982-5 HPI - General General Date of Admission: [...] injection in June 2023) who presents to [facility] ER complaining of right lower [...] isexpected to be greater than 48 hours. [facility] Medical History (Updated 08/14/23 @ 05:37 by [...] (Auto) 77.3 H, Lymph % (Auto)9.8 L, [place] % (Auto) 11.6 H, Eos % (Auto) [...] Sl. Cloudy, Urine pH 5.0, Ur Specific [place] 1.020, Urine Protein 30 H, Urine Glucose [...] 55 minutes. Charges/Coding Visit Charges Inpatient E&M: 56570 Init Hosp L2 08/14/23 0537 <Electronically signed by Felipe Drew DO> Cosigner Signature (if applicable): CC: Dr. Felipe Drew DO; Dr. Moon Rayo MD~ Signed [facility] Work Phone: 1(206) 155-139701-21-2024 Consult note Author Felipe [facility] August 14, 2023 2:40am Note Date/Time August 14, 2023 2 :07am [facility] Medical Records Department [address] [place] [address] Pharmacokinetic/Renal -Consult 08/14/23 0206 MR#: [id number] Acct: [id number] Name: VANESSA HERNANDEZ Rep #:[id number] : 1945 78 From: Sterling Chavis PCP: Dr. Moon Rayo MD Status:ADM IN Location: [address] Consult Antibiotic Management Pharmacy has been [...] Date Felipe Drew DO CC: ~ Signed [facility] Work Phone: 1([phone]) 704-389201-21-2024 Discharge summary Author Kelle Foster [facility] August 14, 2023 1:41am Note Date/Time August 13, 2023 7 :40pm [facility] Medical Records Department [address] [place] [address] Emergency Department Summary 08/13/23 MR#: [id number] Acct: [id number] Name: VANESSA HERNANDEZ Rep #:[id number] : 1945 78 From: Kelle Foster MD PCP: Dr. Moon Rayo MD Status:ADM RUBENS Location: [place] [address] HPI History of Present Illness Chief Complaint: [...] up and go to her recliner to [facility]. When she tried to get up she states her feet were swollen and too painful. She was not able to bear weight. She does live alone. [facility] Medical History (Updated 08/13/23 @ 21:18 by [...] 77.3 H Lymph % (Auto) 9.8 L [place] % (Auto) 11.6 H Eos % (Auto) [...] Sl. Cloudy Urine pH 5.0 Ur Specific [place] 1.020 Urine Protein 30 H Urine Glucose [...] Care Provider] - Disposition Disposition: Acute Care [facility] What to do if you have Problems For any increased pain, shortness of breath, bleeding, nausea or vomiting, chestpain, or any unexpected problems, contact your Primary Care Provider. Call [facility] ([phone]) or report to the closest Emergency Room. Call 911 if necessary. 08/14/23 0141 <Electronically signed by Kelle Foster MD> Cosigner Signature (if applicable): CC: Dr. Moon Rayo MD ~ Signed [facility] Work Phone: 1(258) 333-342604-23-2021 NoteHNO ID: [id number] Author: Latonya Sol Service: ? Author Type: [...] Objective: Patient presents to clinic ambulating in [facility] Vasc: DP and PT pulses are [...] to RTC in 3-4 months. Latonya Sol [facility]04-23-2021 NoteHNO ID: [id number] Author: Paty Harmon RN Service: ? Author Type: ? Type: Progress Notes Filed: 11/14/2020 2:54 PM Note Text: AMB ROOMING INTAKE FLOWSHEET DATA Risk Screening Do you have concerns about personal safety or safety in the home?: No Patient presents with: Left Foot - Established Patient, Nail Care Right Foot - Established Patient, [facility] NotePatient Outreach (COVAM[facility]) VANESSA HERNANDEZ ([id number]) 1945 F Date Time Provider Department 09/16/20 [...] Fully Assessed Order(s):SARS-COVID VACCINE 1ST DOSE APPT [[id number]] Order #: [id number] FUTURE Prescriptions as of 09/16/2020 Sig: OMEPRAZOLE [...] Text Encounter Status:Closed by BEBETO, PRODUSER on 09/19/20[facility] Discharge summary Author Ronak Mejia [facility] April 27, 2023 6:03am Note Date/Time April 27, 2023 6: 04am [facility] Medical Records Department [address] [facility] [place] [address] Emergency Department Summary 04/27/23 MR#: [id number] Acct: [id number] Name: VANESSA HERNANDEZ Nitza Rep #:[id number] : 1945 77 From: Ronak Mejia DO [...] was brought to the hospital for evaluation. [facility] Medical History Abdominal pain Abdominal pain Asthma [...] [Rx Last Taken Unknown] walker ([facility] #1 ea 08/23/22 [Rx Last Taken Unknown] [...] 4:33 EDT Reading Location ID and State: [facility] / [place] Tel , Service support , [...] your Primary Care Provider. Call [facility] ([phone]) or report to the closest Emergency Room. Call 911 if necessary. 04/27/23 0603 <Electronically signed by Ronak Mejia DO> Cosigner Signature (if applicable): CC: Dr. Moon Rayo MD ~ Signed [facility] Work Phone: Discharge summary Author Dulce Maria Lance [facility] Note Date/Time January 28, 2025 11:22 am [facility] Physical Therapy [facility] [address] [place] [address] [address] [place] [address] / REHABILITATION SERVICES DISCHARGE SUMMARY MR#: [id number] Acct: [id number] Name: VANESSA HERNANDEZ Rep #: [id number] : 1945 79 From: Dulce Maria An [...] please feel free to call me at [phone]. Thank you for the referral of thispatient. Sincerely, JOHN Vernon Balance/Gait/Functional tests Balance/Special Test Scores Lower Extremity Functional Score: 44 Improvement % Improvement: 90 <Electronically signed by Dulce Maria LOPEZ> 01/28/25 0958 CC: Dr. Moon Rayo MD ~ Signed [facility] Work Phone: Evaluation + Plan note No data available for this section [facility] Evaluation note* Diagnosis Onset Date Resolution Status Vertigo acute Essential (primary) hypertension chronic Exertional dyspnea chronic Frequent falls chronic Neuropathy chronic Osteoarthritis chronic [facility] Work Phone: Evaluation noteNo assessment information available [facility] Work Phone: Evaluation note* Diagnosis Onset Date Resolution Status Fall from bed acute Essential (primary) hypertension chronic Frequent falls chronic GERD (gastroesophageal reflux disease) chronic Osteoarthritis chronic [facility] Work Phone: Evaluation note* Diagnosis Onset Date Resolution Status Swelling of left lower extremity acute Depression chronic Essential (primary) hypertension chronic Hyperlipidemia chronic Neuropathy chronic [facility] Work Phone: Evaluation note* Diagnosis Onset Date Resolution Status Swelling of left lower extremity acute Depression chronic Essential (primary) hypertension chronic Hyperlipidemia chronic Neuropathy chronic Gout acute Swelling of left lower extremity acute Essential (primary) hypertension chronic Exertional dyspnea chronic Frequent falls chronic GERD (gastroesophageal reflux disease) chronic Neuropathy chronic Osteoarthritis chronic Overactive bladder chronic [facility] Work Phone: Evaluation note* Diagnosis Onset Date Resolution Status Gout acute Swelling of left lower extremity acute Essential (primary) hypertension chronic Exertional dyspnea chronic Frequent falls chronic GERD (gastroesophageal reflux disease) chronic Neuropathy chronic Osteoarthritis chronic Overactive bladder chronic Cellulitis acute Unable to ambulate acute [facility] Work Phone: Evaluation note* Diagnosis Onset Date Resolution Status Gout acute Swelling of left lower extremity acute Essential (primary) hypertension chronic Exertional dyspnea chronic Frequent falls chronic GERD (gastroesophageal reflux disease) chronic Neuropathy chronic Osteoarthritis chronic Overactive bladder chronic Acute cystitis without hematuria acute Ambulatory dysfunction acute Cellulitis acute Generalized weakness acute Hypokalemia acute Unable to ambulate acute [facility] Work Phone: Evaluation note* Diagnosis [...] acute Essential (primary) hypertension chronic Hyperlipidemia chronic [facility] Work Phone: Evaluation note* Diagnosis [...] Gout acute Swelling of left wrist acute [facility] Work Phone: History and physical note Author Mona Chery [facility] September 26, 2023 3:35pm Note Date/Time September 26, 2023 3:35 pm [facility] Medical Records Department [address] [place] [address] H&P Exam - Hospitalist 09/26/23 1519 MR#: [id number] Acct: [id number] Name: VANESSA HERNANDEZ Rep #:[id number] : 1945 78 From: Mona Chery DO PCP: Dr. Moon Rayo MD Status:ADM IN Location: [facility] [id number] HPI - General General Date of Admission: 09/26/23 Date of Service: 09/26/23 Chief Complaint: Slurred speech HPI Narrative VANESSA HERNANDEZ, is a 78 F who presented to the emergency department at [facility] on 09/26/2023 with slurred speech. [...] and neck was read as unremarkable however [facility] had conversation with the stroke [...] aspirin with ongoing aspirin Plavix after admission. [facility] Medical History (Updated 09/26/23 @ 15:26 by [...] (Auto) 74.3 H, Lymph % (Auto)12.2 L, [place] % (Auto) 10.3 H, Eos % (Auto) [...] 13:36 EST Reading Location ID and State: [facility] / [place] Tel , Service support , ADDENDUM: 09/26/23 1354 IMPRESSION: No acute intracranial process identified. Chronic involutional and white matter changes. N.B. : The above Results were Read Back by Yvonne Florian MD to Joshua Santiago MD, and understanding confirmed on 09/26/2023 13:47:48 (ET). Electronically Signed: Yvonne Florian MD at 13:36 EST Reading Location ID and State: [facility] / [place] Tel , Service support , Head/Neck CTA 09/26/23 13:24 IMPRESSION: No evidence for significant stenosis or occlusion in the carotid or vertebral arteries of the neck. No evidence for large vessel occlusion in the [place]. Electronically Signed: Yvonne Florian MD at 14:03 EST Reading Location ID and State: [facility] / [place] Tel , Service support , ADDENDUM: 09/26/23 1412 IMPRESSION: No evidence for significant stenosis or occlusion in the carotid or vertebral arteries of the neck. No evidence for large vessel occlusion in the [place]. N.B. : The above [...] to admission Charges/Coding Visit Charges Inpatient E&M: 79264 Init Hosp L2 09/26/23 1535 <Electronically signed by Mona Chery DO> Cosigner Signature (if applicable): CC: Dr. Mona Chery DO; Dr. Moon Rayo MD~ Signed [facility] Work Phone: Hospital Discharge instructions No data available for this section [facility] Hospital Discharge instructionsAmbulatory Orders* PT Referral Location: None Selected [facility] Work Phone: Probdlwq note No data available for this section [facility] Progreup note Author Moon Rayo [facility] Note Date/Time April 18, 2025 10:26am [facility] [address] [place] [address] OFFICE VISIT Date of Service: 04/18/25 MR#: [id number] Acct: [id number] Name: VANESSA HERNANDEZ Rep #: [id number] : 1945 Provider: Dr. Meseret Rayo MD Age/Sex: 79/F Location: [facility] Status: Signed Intake Vital Signs 02/21/25 09:44 [...] Reasons: Headaches Chief Complaint: Headaches, neck pain Acid Tank Cleaner Required: No Accompanied by: Self Is patient [...] Chief Complaint: Headaches, neck pain Details: VANESSA HENRANDEZ, is a 79 F who presents to [...] Suggest she trial chiropractic, Dr. Mckeon in [place]. 30-minute visit. Clinical Quality Measures Falls Risk Screening/Assistive Devices Have you fallen in the past year?: No 04/22/25 0753 <Electronically signed by Moon oliveros MD> Date _ [facility] Signature: Date (if applicable) CC: ~ [facility] Work Phone: Reason for referral (narrative)No reason for referral information [facility] Work Phone: Summary Purpose Family History [...] December 14, 2021 2 :06pm Power of Sheet Metal Superintendent No December 14, 2021 2:06pm Advance Directive Response Recorded Date/ Time Name of Medical Power of Sheet Metal Superintendent ADRIENNE INTERIANOELISE July 13, 2022 7:06am Advance Directives Yes October 14 021 6:16am Living Will Yes July 13 7:06am Power of Sheet Metal Superintendent Yes July 13, 2022 7:06am Advance Directive Response Recorded Date/ Time Advance Directives Yes October 14 021 7:16am Living Will Yes July 13 8:06am Power of Sheet Metal Superintendent Yes July 13, 2022 8:06am Advance Directive Response Recorded Date/ Time Advance Directives Yes October 14 021 6:16am Living Will Yes David 20th, 2 022 7:06am Power of Sheet Metal Superintendent Yes July 13, 2022 7:06am Advance Directive Response Recorded Date/ Time Name of Medical Power of Sheet Metal Superintendent Dulce Maria Schwab August 13, 2023 7:21pm Advance Directives Yes October 14, 021 6:16am Living Will Yes August 13 7:21pm Power of Sheet Metal Superintendent Yes August 13, 2023 7:21pm Advance Directive Response Recorded Date/ Time Name of Medical Power of Sheet Metal Superintendent Dulce Maria trent August 13, 2023 11:57pm Advance Directives Yes October 14, 021 6:16am Living Will Yes August 13 11:57pm Power of Sheet Metal Superintendent Yes August 13, 2023 11:57pm Advance Directive Response Recorded Date/ Time Name of Medical Power of Sheet Metal Superintendent Dulce Maria trent August 13, 2023 11:57pm Advance Directives Yes October 14, 6:16am Living Will No September 26, 2023 3:19pm Power of Sheet Metal Superintendent No September 25 3:19pm Advance Directive Response Recorded Date/ Time Advance Directives Yes October 23 1:17pm Living Will No October 24, 2023 1:17pm Power of Sheet Metal Superintendent No October 23 1:17pm Name of Medical Power of Sheet Metal Superintendent Dulce Maria trent August 14, 2023 12:57am Advance Directive Response Recorded Date/ Time Name of Medical Power of Sheet Metal Superintendent Dulce Maria trent August 14, 2023 12:57am Name of Medical Power of Sheet Metal Superintendent DULCE MARIA MILAN--HERNAN JENSEN October 30, 2023 11:10pm Advance Directives Yes October 23 1:17pm Living Will Yes October 30, 2023 11:10pm Power of Sheet Metal Superintendent Yes October 29 11:10pm Advance Directive Response Recorded Date/ Time Advance Directives Yes August 31, 2024 12:18pm Chief Complaint and Reason for Visit Chief Complaint headache, bowel issu es N/V/D Reason for Visit Vertigo Essential (primary) hypertension Exertional dyspnea Frequent falls Neuropathy Osteoarthritis Chief Complaint Amb Documentation FALL Chief Complaint Amb Documentation FALL [facility] ER FU Reason for Visit Fall [...] RIGHT LOWER EXTREMITY CELLULITI AND ACUTE CYSTITIS [facility] Discharge FU CVA Reason for Visit [...] RIGHT LOWER EXTREMITY CELLULITI AND ACUTE CYSTITIS [facility] Discharge FU CVA Cerebrovascular accident Cerebrovascular [...] RIGHT LOWER EXTREMITY CELLULITI AND ACUTE CYSTITIS [facility] Discharge FU CVA Cerebrovascular accident Cerebrovascular accident Cerebrovascular accident [facility] ACUTE [facility] Discharge FU Lt Arm Swelling/Pain Reason for [...] accident Cerebrovascular accident [facility]WORK ACUTE [facility] Discharge FU Lt Arm Swelling/Pain DIZZNESS Reason [...] section and content) DATE CREATED AUTHOR 08/31/2021 [facility] DATE CREATED AUTHOR AUTHOR'S ORGANIZ ATION 10/29/2023 [facility] ([place]) DATE CREATED AUTHOR AUTHOR'S ORGANIZ ATION 05/27/2025 [facility] Goals (unrecognized section and content) Goals [...] Dr. Moon Rayo MD Primary Care Provider, [facility] Provider Active Team Status: Active Member [...] Parul Lagos MD Other Provider Active Dr. Beean Wagner DO Other Provider Active Dr. Leeann [...] MD Primary Care Provider Active Dr. Bhavna UQIROS MD Attending Provider Active Team Status: Active [...] Status: Inactive Member Role/Relationship Status Dates Dr. oMon Rayo MD Primary care physician Active Start: [...] BE BASED ON THE PRIMARY CLINICAL RECORDS. [employer] provides no warranty or guarantee of the accuracy or completeness of information in this document.
[2025-07-23 08:22] LABS: Hematocrit 34.3 % (37-47); Hemoglobin 10.6 g/dL (12.0-15.0); Mean Corp Hgb Conc 30.9 g/dL (32-36); Mean Corpuscular Volume 83.5 fL (81-99); Mean Platelet Vol. 9.7 fl (6.2-12.0); Platelet Count 252 K/mm3 (150-450); RBC Distribution Width CV 16.7 % (11.6-14.6); RBC Distribution Width SD 50.4 fl (35.1-43.9); Red Blood Count 4.11 M/mm3 (4.2-5.4); White Blood Count 9.3 K/mm3 (4.4-11.0)
[2025-07-23 08:36] LABS: Anion Gap 10 (7-18); BUN 14 mg/dL (4-19); BUN/Creat Ratio 19.8 RATIO (10-20); Calcium,Total 9.3 mg/dL (7.6-11.0); Carbon Dioxide 27.1 mmol/L (20.0-29.0); Chloride 103 mmol/L (96-106); Glucose 88 mg/dL (70-99); Potassium 4.2 mmol/L (3.5-5.1)
== END ==
LOC: OLS.SW 05:00
PROVIDERS: PCP Internal Medicine; Visit Provider Internal Medicine
DX: Z02.2 Encounter for examination for admission to residential institution (principal)
CPT/HCPCS: 36415; 80048; 85027